=== PATIENT | female | born 1940 | race Caucasian/White ===

== ENCOUNTER → 2016-12-15 | Outpatient (CLI) | payer MEDICARE ==
[2016-12-20 16:24] LABS: Large VLDL Particle Number,NMR <1.5 nmol/L (<=2.7)
== END | disposition home or self-care (01) ==
LOC: LABWHC1 12:24
PROVIDERS: ATTEND Internal Medicine Cardiovascular Disease
DX: I25.10 Atherosclerotic heart disease of native coronary artery without angina pectoris (principal)
CPT/HCPCS: 36415; 83704

== ENCOUNTER → 2017-07-14 | Outpatient (CLI) | payer MEDICARE | END | disposition home or self-care (01) | LOC: RADMRIMAIN 06:15 | PROVIDERS: ATTEND Internal Medicine Gastroenterology | DX: Z53.9 Procedure and treatment not carried out, unspecified reason (principal) ==

== ENCOUNTER 2018-05-27 15:46 | Emergency (ER) | payer MEDICARE ==
[2018-05-27 15:58] VITALS: BP 158/73; PULSE 67; RESP 16; TEMP 97.9
[2018-05-27] MEDS ORDERED: FAMOTIDINE 20 MG TAB PO STA (16:08)
[2018-05-27] MEDS ORDERED: hydrOXYzine HCL 25 MG TAB PO STA (16:08)
--- NOTE | 2018-05-27 16:11 | ED ---
Allergic Reaction HPI - General Chief complaint: Allergic Reaction Stated complaint: reaction to medication, hives Time Seen by Provider: 05/27/18 16:05 Source: patient, RN notes reviewed Mode of arrival: ambulatory Limitations: no limitations - History of Present Illness Initial Comments: 77-year-old female presents emergency Department chief complaint of itchy arms, rash. Patient states this started last 24 hours. She tried one Benadryl yesterday with no relief. Patient states that she cannot tolerating itching of her hours. She states it's from her elbows to her hands. Denies any new exposures. Patient believes this is caused by steroids that she was taking for sore throat. Patient stopped his steroids. Patient denies any difficulty b reathing or difficulty swallowing. Patient states her sore throat has resolved. Patient states that she has multiple ALLERGIES. - Related Data Home Medications Medication Instructions Recorded Confirmed Lisinopril [Prinivil] 10 mg PO DAILY 03/09/15 01/16/16 Metoprolol Tartrate [Lopressor] 50 mg PO BID 03/09/15 01/16/16 Isosorbide Mononitrate ER [Imdur] 60 mg PO DAILY 10/30/15 01/16/16 Ferrous Sulfate [Iron (65 MG 325 mg PO DAILY 11/26/15 01/16/16 Elemental)] Pravastatin Sodium [Pravachol] 80 mg PO HS 11/30/15 01/16/16 Previous Rx's Medication Instructions Recorded HYDROcodone/APAP 7.5-325MG [Lyman 1 tab PO Q6HR PRN #20 tab 03/09/15 7.5-325] Levofloxacin [Levaquin] 500 mg PO DAILY #7 tab 11/30/15 Pantoprazole Sodium [Protonix] 40 mg PO DAILY #15 tablet. 11/30/15 metroNIDAZOLE [Flagyl] 500 mg PO TID #21 tab 11/30/15 Famotidine [Pepcid] 20 mg PO BID #14 tablet 05/27/18 Triamcinolone 0.1% Cream [Kenalog 1 applicatio TOPICAL BID #30 gram 05/27/18 0.1% Cream] hydrOXYzine HCL [Atarax] 25 mg PO TID PRN #15 tab 05/27/18 Allergies Allergy/AdvReac Type Severity Reaction Status Date / Time cephalexin monohydrate Allergy Rash/Hives/ Verified 05/27/18 15:59 [From Keflex] Swelling meperidine HCl [From Demerol] Allergy Rash/Hives Verified 05/27/18 15:59 Penicillins Allergy Swelling Verified 05/27/18 15:59 pentazocine lactate Allergy Rash/Hives-Stomach Verified 05/27/18 15:59 [From Talwin] Upset propoxyphene napsylate Allergy Rash/Hives- Verified 05/27/18 15:59 [From Darvocet-N] Itch Review of Systems ROS Statement: Those systems with pertinent positive or pertinent negative responses have been documented in the HPI. ROS Other: All systems not noted in ROS Statement are negative. Past Medical History Past Medical History: Blood Disorder, Coronary Artery Disease (CAD), Hyperlipidemia, Hypertension, Myocardial Infarction ([place]) Additional Past Medical History / Comment(s): Thrombocytopenia-sees Dr. Kan. 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, 11-28-15 ercp Past Anesthesia/Blood Transfusion Reactions: No Reported Reaction Date of Last Stent Placement:: 1998 Past Psychological History: No Psychological Hx Reported Smoking Status: Current some day smoker Past Alcohol Use History: None Reported Past Drug Use History: None Reported - Past Family History Mother Family Medical History: Cancer Additional Family Medical History / Comment(s): Breast Ca Father Family Medical History: Myocardial Infarction ([place]) Additional Family Medical History / Comment(s): @ age 86 from [place] General Exam Limitations: no limitations General appearance: alert, in no apparent distress Head exam: Present: atraumatic, normocephalic, normal inspection Respiratory exam: Present: normal lung sounds bilaterally. Absent: respiratory distress, wheezes, rales, rhonchi, stridor Cardiovascular Exam: Present: regular rate, normal rhythm, normal heart sounds. Absent: systolic murmur, diastolic murmur, rubs, gallop, clicks Extremities exam: Present: other (Bilateral upper extremities, excoriations, mild erythema noted, small areas of localized dermatitis) Skin exam: Present: warm, dry Course Vital Signs 05/27/18 15:56 Temperature 97.9 F Pulse Rate 67 Respiratory 16 Rate Blood Pressure 158/73 O2 Sat by Pulse 100 Oximetry Medical Decision Making - Medical Decision Making 77-year-old female presented for itchy eyes. Patient has what appears to be more consistent with contact dermatitis. Patient we given Atarax, Pepcid. Patient we given steroid cream for her arms. Return parameters were discussed. Disposition Clinical Impression: Dermatitis Disposition: HOME SELF-CARE Condition: Stable Instructions (If sedation given, give patient instructions): Dermatitis (ED) Additional Instructions: Please return to the Emergency Department if symptoms worsen or any other concerns. Prescriptions: hydrOXYzine HCL [Atarax] 25 mg PO TID PRN #15 tab PRN Reason: Itching Triamcinolone 0.1% Cream [Kenalog 0.1% Cream] 1 applicatio TOPICAL BID #30 gram Famotidine [Pepcid] 20 mg PO BID #14 tablet Is patient prescribed a controlled substance at d/c from ED?: No Referrals: Isabel Conway DO [Primary Care Provider] - 1-2 days Time of Disposition: 16:11
== END 2018-05-27 16:48 | disposition home or self-care (01) ==
LOC: EC 15:46
DX: L30.9 Dermatitis, unspecified (principal); E78.5 Hyperlipidemia, unspecified; I10 Essential (primary) hypertension; I25.10 Atherosclerotic heart disease of native coronary artery without angina pectoris; I25.2 Old myocardial infarction; D69.6 Thrombocytopenia, unspecified; F17.200 Nicotine dependence, unspecified, uncomplicated; Z88.0 Allergy status to penicillin; Z88.1 Allergy status to other antibiotic agents; Z88.5 Allergy status to narcotic agent; Z88.8 Allergy status to other drugs, medicaments and biological substances; Z79.899 Other long term (current) drug therapy; Z95.5 Presence of coronary angioplasty implant and graft
CPT/HCPCS: 99283

== ENCOUNTER 2018-05-28 16:24 | Emergency (ER) | payer MEDICARE ==
[2018-05-28 16:44] VITALS: BP 145/63; PULSE 71; RESP 16; TEMP 97.8
[2018-05-28] MEDS ORDERED: methylPREDNISolone SOD SUCCI 125 MG/2 ML VIAL IM ONE (17:48)
[2018-05-28] MEDS ORDERED: diphenhydrAMINE 50 MG/ML 1 ML VIAL IM STA (17:48)
--- NOTE | 2018-05-28 17:50 | ED ---
Skin/Abscess/FB HPI - General Chief complaint: Skin/Abscess/Foreign Body Stated complaint: Hives Time Seen by Provider: 05/28/18 17:13 Source: patient Mode of arrival: ambulatory Limitations: no limitations - History of Present Illness Initial comments: 77-year-old female patient presents to the emergency department today for generalized itching. Patient states itching started 2-3 days ago. States that she is unable to sleep last night due to the itching. States that she was seen and evaluated here yesterday diagnosed with contact dermatitis and given prescriptions for Pepcid, triamcinolone cream, and Atarax. Patient states she's been taking the medications as directed and doesn't seem to be helping. She denies any lip, tongue, or throat swelling. Denies any new exposures however she was recently on a steroid from her ear, nose, throat specialist. States she has taken steroids before without issue. She denies any other new exposures. Denies any recent travel. Patient denies any recent fever, chills, shortness breath, chest pain, abdominal pain, nausea, vomiting, diarrhea, constipation, back pain, numbness, tingling, dizziness, weakness, hematuria, dysuria, urinary urgency, urinary frequency, headache, visual changes, or any other complaints. - Related Data Home Medications Medication Instructions Recorded Confirmed Lisinopril [Prinivil] 10 mg PO DAILY 03/09/15 01/16/16 Metoprolol Tartrate [Lopressor] 50 mg PO BID 03/09/15 01/16/16 Isosorbide Mononitrate ER [Imdur] 60 mg PO DAILY 10/30/15 01/16/16 Ferrous Sulfate [Iron (65 MG 325 mg PO DAILY 11/26/15 01/16/16 Elemental)] Pravastatin Sodium [Pravachol] 80 mg PO HS 11/30/15 01/16/16 Previous Rx's Medication Instructions Recorded HYDROcodone/APAP 7.5-325MG [Chester 1 tab PO Q6HR PRN #20 tab 03/09/15 7.5-325] Levofloxacin [Levaquin] 500 mg PO DAILY #7 tab 11/30/15 Pantoprazole Sodium [Protonix] 40 mg PO DAILY #15 tablet. 11/30/15 metroNIDAZOLE [Flagyl] 500 mg PO TID #21 tab 11/30/15 Famotidine [Pepcid] 20 mg PO BID #14 tablet 05/27/18 Triamcinolone 0.1% Cream [Kenalog 1 applicatio TOPICAL BID #30 gram 05/27/18 0.1% Cream] hydrOXYzine HCL [Atarax] 25 mg PO TID PRN #15 tab 05/27/18 predniSONE 50 mg PO DAILY #3 tab 05/28/18 Allergies Allergy/AdvReac Type Severity Reaction Status Date / Time cephalexin monohydrate Allergy Rash/Hives/ Verified 05/27/18 15:59 [From Keflex] Swelling meperidine HCl [From Demerol] Allergy Rash/Hives Verified 05/27/18 15:59 Penicillins Allergy Swelling Verified 05/27/18 15:59 pentazocine lactate Allergy Rash/Hives-Stomach Verified 05/27/18 15:59 [From Talwin] Upset propoxyphene napsylate Allergy Rash/Hives- Verified 05/27/18 15:59 [From Darvocet-N] Itch Review of Systems ROS Statement: Those systems with pertinent positive or pertinent negative responses have been documented in the HPI. ROS Other: All systems not noted in ROS Statement are negative. Past Medical History Past Medical History: Blood Disorder, Coronary Artery Disease (CAD), Hyperlipidemia, Hypertension, Myocardial Infarction ([place]) Additional Past Medical History / Comment(s): Thrombocytopenia-sees Dr. Kan. 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, 11-28-15 ercp Past Anesthesia/Blood Transfusion Reactions: No Reported Reaction Date of Last Stent Placement:: 1998 Past Psychological History: No Psychological Hx Reported Smoking Status: Current some day smoker Past Alcohol Use History: None Reported Past Drug Use History: None Reported - Past Family History Mother Family Medical History: Cancer Additional Family Medical History / Comment(s): Breast Ca Father Family Medical History: Myocardial Infarction ([place]) Additional Family Medical History / Comment(s): @ age 86 from [place] General Exam Limitations: no limitations General appearance: alert, in no apparent distress, other (Physical well- developed, well-nourished elderly female patient in no acute distress. Vital signs upon presentation are temperature 97.8F, pulse 71, respirations 16, blood pressure 145/63, pulse ox 100% on room air.) ENT exam: Present: normal exam, normal oropharynx, mucous membranes moist Respiratory exam: Present: normal lung sounds bilaterally. Absent: respiratory distress, wheezes, rales, rhonchi, stridor Cardiovascular Exam: Present: regular rate, normal rhythm, normal heart sounds. Absent: systolic murmur, diastolic murmur, rubs, gallop, clicks GI/Abdominal exam: Present: soft, normal bowel sounds. Absent: distended, tenderness, guarding, rebound, rigid Neurological exam: Present: alert, oriented X3, CN II-XII intact Psychiatric exam: Present: normal affect, normal mood Skin exam: Present: warm, dry, intact, normal color, rash (Erythema and excoriation noted to bilateral arms secondary to itching. Similar lesions over the abdomen. ) Course Vital Signs 05/28/18 16:40 Temperature 97.8 F Pulse Rate 71 Respiratory 16 Rate Blood Pressure 145/63 O2 Sat by Pulse 100 Oximetry Disposition Clinical Impression: Rash, Generalized pruritus Disposition: HOME SELF-CARE Condition: Good Instructions (If sedation given, give patient instructions): Acute Rash (ED) Additional Instructions: Take Atarax or Benadryl. Complete steroid prescription in full. Follow-up with your primary care physician for recheck in 1-2 days. Return to the emergency department immediately for any new, worsening, or concerning symptoms. Prescriptions: predniSONE 50 mg PO DAILY #3 tab Is patient prescribed a controlled substance at d/c from ED?: No Referrals: Isabel Conway DO [Primary Care Provider] - 1-2 days Time of Disposition: 17:50
== END 2018-05-28 18:10 | disposition home or self-care (01) ==
LOC: EC 16:24
DX: L29.9 Pruritus, unspecified (principal); I25.10 Atherosclerotic heart disease of native coronary artery without angina pectoris; E78.5 Hyperlipidemia, unspecified; I10 Essential (primary) hypertension; I25.2 Old myocardial infarction; F17.200 Nicotine dependence, unspecified, uncomplicated; Z79.899 Other long term (current) drug therapy; Z88.1 Allergy status to other antibiotic agents; Z88.0 Allergy status to penicillin; Z88.5 Allergy status to narcotic agent; Z88.8 Allergy status to other drugs, medicaments and biological substances; Z95.5 Presence of coronary angioplasty implant and graft
CPT/HCPCS: 99282; 96372 ×2; J1200; J2930

== ENCOUNTER 2018-09-02 22:09 | Emergency (ER) | payer MEDICARE ==
--- NOTE | 2018-09-02 22:14 | ED ---
Fall HPI - General Stated Complaint: Fall Time Seen by Provider: 09/02/18 22:12 Source: RN notes reviewed, old records reviewed Limitations: no limitations - History of Present Illness Initial Comments: This is a 78-year-old female the ER status post fall. Patient resents today status post fall from standing follows mechanical trip and fall. Patient did hit her head but no loss of consciousness complaining of elbow and knee pain. Patient has no other complaints no recent chest pain shortness of breath abdominal pain or headache prior to fall MD Complaint: fall -: hour(s) Fall From: standing When Fall Occurred: 1-3 hours [employer]ORD[employer] Fall Witnessed: no Place Fall Occurred: home Loss of Consciousness: none Prolonged Down Time?: no Symptoms Prior to Fall: none Location: head Location - Extremities: Left: Elbow, Knee, Right: Knee Severity: mild Severity scale (1-10): 2 Quality: aching Context: tripped/slipped Associated Symptoms: denies - Related Data Home Medications Medication Instructions Recorded Confirmed Lisinopril [Prinivil] 10 mg PO DAILY 03/09/15 09/12/18 Metoprolol Tartrate [Lopressor] 50 mg PO BID 03/09/15 09/12/18 Isosorbide Mononitrate ER [Imdur] 60 mg PO DAILY 10/30/15 09/12/18 Aspirin EC [Ecotrin Low Dose] 81 mg PO DAILY 09/12/18 09/12/18 Pravastatin Sodium [Pravachol] 40 mg PO HS 09/12/18 09/12/18 Allergies Allergy/AdvReac Type Severity Reaction Status Date / Time cephalexin monohydrate Allergy Rash/Hives/ Verified 09/12/18 21:34 [From Keflex] Swelling codeine Allergy Unknown Verified 09/12/18 21:34 meperidine HCl [From Demerol] Allergy Rash/Hives Verified 09/12/18 21:34 Penicillins Allergy Swelling Verified 09/12/18 21:34 pentazocine lactate Allergy Rash/Hives-Stomach Verified 09/12/18 21:34 [From Talwin] Upset propoxyphene napsylate Allergy Rash/Hives- Verified 09/12/18 21:34 [From Darvocet-N] Itch Review of Systems ROS Statement: Those systems with pertinent positive or pertinent negative responses have been documented in the HPI. ROS Other: All systems not noted in ROS Statement are negative. Past Medical History Past Medical History: Blood Disorder, Coronary Artery Disease (CAD), Hyperlipidemia, Hypertension, Myocardial Infarction ([place]) Additional Past Medical History / Comment(s): Thrombocytopenia-sees Dr. Kan. 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, 11-28-15 ercp Past Anesthesia/Blood Transfusion Reactions: No Reported Reaction Date of Last Stent Placement:: 1998 Past Psychological History: No Psychological Hx Reported Smoking Status: Current some day smoker Past Alcohol Use History: None Reported Past Drug Use History: None Reported - Past Family History Mother Family Medical History: Cancer Additional Family Medical History / Comment(s): Breast Ca Father Family Medical History: Myocardial Infarction ([place]) Additional Family Medical History / Comment(s): @ age 86 from [place] General Exam General appearance: alert, in no apparent distress Head exam: Present: atraumatic, normocephalic, normal inspection Eye exam: Present: normal appearance, PERRL, EOMI. Absent: scleral icterus, conjunctival injection, periorbital swelling ENT exam: Present: normal exam, mucous membranes moist Neck exam: Present: normal inspection. Absent: tenderness, meningismus, lymphadenopathy Respiratory exam: Present: normal lung sounds bilaterally. Absent: respiratory distress, wheezes, rales, rhonchi, stridor Cardiovascular Exam: Present: regular rate, normal rhythm, normal heart sounds. Absent: systolic murmur, diastolic murmur, rubs, gallop, clicks GI/Abdominal exam: Present: soft, normal bowel sounds. Absent: distended, tenderness, guarding, rebound, rigid Extremities exam: Present: normal inspection, full ROM, normal capillary refill. Absent: tenderness, pedal edema, joint swelling, calf tenderness Back exam: Present: normal inspection Neurological exam: Present: alert, oriented X3, CN II-XII intact Psychiatric exam: Present: normal affect, normal mood Skin exam: Present: warm, dry, intact, normal color. Absent: rash Course Vital Signs 06/22/19 06/22/19 22:11 23:47 Temperature 98.2 F 98.0 F Pulse Rate 73 87 Respiratory 18 18 Rate Blood Pressure 140/68 156/67 O2 Sat by Pulse 97 98 Oximetry Medical Decision Making - Medical Decision Making 78 female the ER status post fall fall mechanical trip and fall hit her head head injury with CT negative x-rays are negative for traumatic injury and patient can be discharged home - Radiology Data Radiology results: report reviewed (CT brain C-spine x-ray elbow knee negative for traumatic injury), image reviewed Disposition Clinical Impression: Fall, Head injury Disposition: HOME SELF-CARE Condition: Good Instructions (If sedation given, give patient instructions): Fall Prevention for Older Adults (ED), Head Injury (ED) Is patient prescribed a controlled substance at d/c from ED?: No Referrals: Isabel Conway DO [Primary Care Provider] - 1-2 days
[2018-09-02 22:17] VITALS: RESP 18
--- NOTE | 2018-09-02 23:02 | CT ---
EXAM: CT Head Without Intravenous Contrast CLINICAL HISTORY: ITS.REASON CT Reason: pain TECHNIQUE: Axial computed tomography images of the head/brain without intravenous contrast. CTDI is 56.5 mGy and DLP is 1355 mGy-cm. This CT exam was performed using one or more of the following dose reduction techniques: automated exposure control, adjustment of the mA and/or kV according to patient size, and/or use of iterative reconstruction technique. COMPARISON: No relevant prior studies available. FINDINGS: Brain: Advanced cerebral atrophy, more so involving the frontal lobes. No hemorrhage. No significant white matter disease. Ventricles: Unremarkable. No ventriculomegaly. Bones/joints: Unremarkable. No acute fracture. Soft tissues: Unremarkable. Sinuses: Unremarkable as visualized. No acute sinusitis. Mastoid air cells: Unremarkable as visualized. No mastoid effusion. IMPRESSION: No acute findings. EXAM: CT Cervical Spine Without Intravenous Contrast CLINICAL HISTORY: ITS.REASON CT Reason: pain TECHNIQUE: Axial computed tomography images of the cervical spine without intravenous contrast. CTDI is 56.5 mGy and DLP is 1355 mGy-cm. This CT exam was performed using one or more of the following dose reduction techniques: automated exposure control, adjustment of the mA and/or kV according to patient size, and/or use of iterative reconstruction technique. COMPARISON: No relevant prior studies available. FINDINGS: Vertebrae: Unremarkable. No acute fracture. Discs/spinal canal/neural foramina: No acute findings. Severe degenerative disc disease at the C5-C6 level likely contributes to mild central canal stenosis. Mild to moderate degenerative disc disease at C6- C7. Soft tissues: Large 5.1 x 4.4 cm left thyroid gland mass with peripheral calcification. IMPRESSION: No fracture or subluxation. Severe degenerative disc disease at the C5-C6 level. 5.1 cm left thyroid gland mass. Nonemergent follow-up ultrasound should be considered.
--- NOTE | 2018-09-02 23:33 | XR ---
EXAM: XR Left Knee, 3 views CLINICAL HISTORY: ITS.REASON XR Reason: Pain TECHNIQUE: Three views of the left knee. COMPARISON: Left knee radiographs 03/09/2015 FINDINGS: Advanced osteoarthritic degenerative changes about the knee joint as well as patellofemoral joint. Multiple small periarticular calcifications raising possibility of loose bodies. Chondrocalcinosis. No definite evidence of acute fracture. No evidence of dislocation. Small knee joint effusion. IMPRESSION: Advanced osteoarthritic degenerative changes about the knee and patellofemoral joints. Multiple periarticular calcifications raising possibility of loose bodies. No definite evidence of acute fracture or dislocation. Chondrocalcinosis. Small knee joint effusion.
--- NOTE | 2018-09-02 23:38 | XR ---
EXAM: XR Left Elbow Complete, 3 or More Views CLINICAL HISTORY: ITS.REASON XR Reason: Pain TECHNIQUE: Frontal, lateral and oblique views of the left elbow. COMPARISON: None available FINDINGS: No evidence of acute fracture or dislocation area Humeral fat pads are not elevated. IMPRESSION: No evidence of acute fracture or dislocation.
[2018-09-02 23:51] VITALS: BP 156/67; PULSE 87; TEMP 98
--- NOTE | 2018-09-04 07:37 | CDI ---
Documentation Clarification OP Dear Orlando OLIVAS, DO Please do addendum to ED report for missing HPI and Physical examination. Thank you, Farheen Mnotiel [employer] If you have any questions, please contact [employer] Captain at [phone] [facility]
== END 2018-09-02 23:51 | disposition home or self-care (01) ==
LOC: EC 22:09
DX: S09.90XA Unspecified injury of head, initial encounter (principal); M25.522 Pain in left elbow; M25.561 Pain in right knee; M25.562 Pain in left knee; I25.10 Atherosclerotic heart disease of native coronary artery without angina pectoris; E78.5 Hyperlipidemia, unspecified; I10 Essential (primary) hypertension; I25.2 Old myocardial infarction; F17.200 Nicotine dependence, unspecified, uncomplicated; Z95.5 Presence of coronary angioplasty implant and graft; Z79.82 Long term (current) use of aspirin; Z79.899 Other long term (current) drug therapy; Z88.1 Allergy status to other antibiotic agents; Z88.5 Allergy status to narcotic agent; Z88.0 Allergy status to penicillin; Z88.8 Allergy status to other drugs, medicaments and biological substances; W01.10XA Fall on same level from slipping, tripping and stumbling with subsequent striking against unspecified object, initial encounter; Y92.009 Unspecified place in unspecified non-institutional (private) residence as the place of occurrence of the external cause
CPT/HCPCS: 70450; 72125; 99284

== ENCOUNTER 2018-09-12 21:08 | Inpatient (IN) | payer MEDICARE ==
--- NOTE | 2018-09-12 21:28 | ED ---
Lower Extremity Injury HPI <Alfredo Porras - Last Filed: 09/12/18 22:02> - General Source: patient, RN notes reviewed Mode of arrival: EMS Limitations: no limitations <Samir Vera - Last Filed: 09/12/18 22:24> - General Chief Complaint: Extremity Injury, Lower Stated Complaint: Hip Pain Time Seen by Provider: 09/12/18 21:10 - History of Present Illness Initial Comments: 78-year-old female presents emergency Department with chief complaint of left hip pain. Patient states that she fell yesterday in the grass when she tripped over her dog. Patient states he was able stand her up and she couldn't get around but barely. Patient states the pain worsens June to the point where she cannot ambulate. Patient states that the pain radiates down towards her knee. Patient denies any head injury no loss conscious no prior hip surgery. (Samir Vera) - Related Data Home Medications Medication Instructions Recorded Confirmed Lisinopril [Prinivil] 10 mg PO DAILY 03/09/15 09/12/18 Metoprolol Tartrate [Lopressor] 50 mg PO BID 03/09/15 09/12/18 Isosorbide Mononitrate ER [Imdur] 60 mg PO DAILY 10/30/15 09/12/18 Aspirin EC [Ecotrin Low Dose] 81 mg PO DAILY 09/12/18 09/12/18 Pravastatin Sodium [Pravachol] 40 mg PO HS 09/12/18 09/12/18 Allergies Allergy/AdvReac Type Severity Reaction Status Date / Time cephalexin monohydrate Allergy Rash/Hives/ Verified 09/12/18 21:34 [From Keflex] Swelling codeine Allergy Unknown Verified 09/12/18 21:34 meperidine HCl [From Demerol] Allergy Rash/Hives Verified 09/12/18 21:34 Penicillins Allergy Swelling Verified 09/12/18 21:34 pentazocine lactate Allergy Rash/Hives-Stomach Verified 09/12/18 21:34 [From Talwin] Upset propoxyphene napsylate Allergy Rash/Hives- Verified 09/12/18 21:34 [From Darvocet-N] Itch Review of Systems ROS Other: All systems not noted in ROS Statement are negative. <Alfredo Porras - Last Filed: 09/12/18 22:02> ROS Other: All systems not noted in ROS Statement are negative. <Samir Vera M - Last Filed: 09/12/18 22:24> ROS Statement: Those systems with pertinent positive or pertinent negative responses have been documented in the HPI. Past Medical History Past Medical History: Blood Disorder, Coronary Artery Disease (CAD), Hyperlip idemia, Hypertension, Myocardial Infarction ([place]) Additional Past Medical History / Comment(s): Thrombocytopenia-sees Dr. Kan. 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, 11-28-15 ercp Past Anesthesia/Blood Transfusion Reactions: No Reported Reaction Date of Last Stent Placement:: 1998 Past Psychological History: No Psychological Hx Reported Smoking Status: Current some day smoker Past Alcohol Use History: None Reported Past Drug Use History: None Reported - Past Family History Mother Family Medical History: Cancer Additional Family Medical History / Comment(s): Breast Ca Father Family Medical History: Myocardial Infarction ([place]) Additional Family Medical History / Comment(s): @ age 86 from [place] <Samir Vera - Last Filed: 09/12/18 22:24> General Exam Limitations: no limitations General appearance: alert, in no apparent distress Head exam: Present: atraumatic, normocephalic, normal inspection Eye exam: Present: normal appearance, PERRL, EOMI. Absent: scleral icterus, conjunctival injection, periorbital swelling ENT exam: Present: normal exam, normal oropharynx, mucous membranes moist Neck exam: Present: normal inspection, full ROM. Absent: tenderness, meningismus, lymphadenopathy Respiratory exam: Present: normal lung sounds bilaterally. Absent: respiratory distress, wheezes, rales, rhonchi, stridor Cardiovascular Exam: Present: regular rate, normal rhythm, normal heart sounds. Absent: systolic murmur, diastolic murmur, rubs, gallop, clicks Extremities exam: Present: other (Left hip there is tenderness with palpation diffusely, mild pain to the mid left thigh. Pain with logrolling and flexion of the hip there is no shortening or rotation pedal pulses are equal bilaterally) Neurological exam: Present: alert, oriented X3, CN II-XII intact, reflexes normal. Absent: motor sensory deficit Skin exam: Present: warm, dry, intact, normal color. Absent: rash <Samir Vera - Last Filed: 09/12/18 22:24> Course Vital Signs 09/12/18 21:13 Temperature 98.5 F Pulse Rate 67 Respiratory 14 Rate Blood Pressure 133/65 O2 Sat by Pulse 96 Oximetry Medical Decision Making <Alfredo Porras - Last Filed: 09/12/18 22:02> <Samir Vera - Last Filed: 09/12/18 22:24> - Medical Decision Making I saw this patient in conjunction with the physician loan assistant. I performed independent history and physical exam. Agree with case management. (Alfredo Porras) 78-year-old female presented for fall, left hip pain. Patient had x-rays which shows left IT fracture. Case discussed with on-call orthopedics who accepted admission. Patient will need surgical clearance including cardiology evaluation. (Samir Vera) Disposition <Alfredo Porras - Last Filed: 09/12/18 22:02> <aSmir Vera - Last Filed: 09/12/18 22:24> Clinical Impression: Fracture, intertrochanteric, left femur, Fall Disposition: ADMITTED IP TO THIS [facility] Condition: Fair Referrals: Isabel Conway DO [Primary Care Provider] - 1-2 days
--- NOTE | 2018-09-12 21:48 | XR ---
EXAMINATION TYPE: XR pelvis AP view DATE OF EXAM: 09/12/2018 COMPARISON: NONE HISTORY: Pain TECHNIQUE: Single view FINDINGS: Pelvic ring is intact. There is lucency over the intertrochanteric left femur suggestive of nondisplaced fracture. Sacroiliac joints are intact. Proximal right femur is intact. IMPRESSION: There is acute intertrochanteric fracture left femur.
--- NOTE | 2018-09-12 21:49 | XR ---
EXAMINATION TYPE: XR chest 1V DATE OF EXAM: 09/12/2018 COMPARISON: 10/16/2010 HISTORY: Knee pain. Chest pain TECHNIQUE: Single frontal view of the chest is obtained. FINDINGS: There is no heart failure nor confluent pneumonic infiltrate. Costophrenic angles are janiya r. Heart is probably enlarged. There is no pleural effusion or pneumothorax. IMPRESSION: Mild cardiomegaly. No acute lung disease. Heart appears increased slightly compared to o ld exam.
--- NOTE | 2018-09-12 21:50 | XR ---
EXAMINATION TYPE: XR femur LT DATE OF EXAM: 09/12/2018 COMPARISON: NONE HISTORY: Pain TECHNIQUE: 4 views FINDINGS: There is evidence of acute intertrochanteric fracture left femur without displacement. Ther e is no dislocation. There is severe narrowing of the knee joint spaces with calcification of the men isci. I see no knee joint fracture. IMPRESSION: Acute intertrochanteric fracture left femur. 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
[2018-09-12] MEDS ORDERED: MORPHINE SULFATE 4 MG/ML SYRINGE IV STA (22:02)
[2018-09-12] MEDS ORDERED: ACETAMINOPHEN TAB 325 MG TAB PO PRN (22:24)
[2018-09-12] MEDS ORDERED: ONDANSETRON 4 MG/2 ML VIAL IVP PRN (22:24)
[2018-09-12] MEDS ORDERED: NALOXONE 0.4 MG/ML 1 ML VIAL IV PRN (22:24)
[2018-09-12 22:32] LABS: Basophils % (A) 1 %; Eosinophils # (A) 0.2 k/uL (0-0.7); Eosinophils % (A) 3 %; HCT 35.1 % (34.0-46.0); Lymphocytes # (A) 0.8 k/uL (1.0-4.8); Lymphocytes % (A) 13 %; MCH 32.3 pg (25.0-35.0); MCHC 34.2 g/dL (31.0-37.0); MCV 94.5 fL (80.0-100.0); Mean Platelet Volume 9.6; Monocytes # (A) 0.5 k/uL (0-1.0); Monocytes % (A) 9 %; Neutrophils # (A) 4.3 k/uL (1.3-7.7); Neutrophils % (A) 72 %; Poikilocytosis Moderate; RBC 3.71 m/uL (3.80-5.40); RDW 15.8 % (11.5-15.5)
[2018-09-12 22:41] LABS: INR 1.2 (<1.2); Partial Thromboplastin Time 27.3 sec (22.0-30.0); Prothrombin Time 12.6 sec (9.0-12.0)
[2018-09-12 22:42] LABS: Albumin 2.9 g/dL (3.5-5.0); Calcium 8.3 mg/dL (8.4-10.2); Potassium 4.1 mmol/L (3.5-5.1); Total Bilirubin 2.6 mg/dL (0.2-1.3); Total Protein 5.6 g/dL (6.3-8.2)
[2018-09-12] MEDS ORDERED: HYDROmorphone 0.5 MG/0.5 ML SYRINGE IVP STA (22:45)
[2018-09-12 23:03] LABS: Platelet Count 57 k/uL (150-450)
[2018-09-13 00:04] LABS: Appearance,Urine Clear (Clear); Bilirubin,Urine Negative (Negative); Blood,Urine Negative (Negative); Color,Urine Yellow; Glucose,Urine (UA) Negative (Negative); Ketones,Urine Negative (Negative); Leukocyte Esterase,Urine Negative (Negative); Nitrite,Urine Negative (Negative); Protein,Urine Trace (Negative); Specific Gravity,Urine 1.031 (1.001-1.035)
[2018-09-13] MEDS: HYDROmorphone 0.5 MG/0.5 ML SYRINGE IVP PRN ×6 (01:22→23:52)
--- NOTE | 2018-09-13 08:03 | P.HPOR ---
History of Present Illness H&P Date: 09/13/18 Chief Complaint: Left hip pain The patient is a 78-year-old community ambulator who presents after falling on Tuesday in her yard tripping over her dog. She had no loss of consciousness. Initially she was able to bear weight, however that worsened and subsequently she was brought to the hospital. Review of Systems Musculoskeletal: Reports as per HPI Musculoskeletal: left: hip pain Past Medical History Past Medical History: Blood Disorder, Coronary Artery Disease (CAD), Hyperlipidemia, Hypertension, Myocardial Infarction ([place]) Additional Past Medical History / Comment(s): Thrombocytopenia-sees Dr. Kan. 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, 11-28-15 ercp Past Anesthesia/Blood Transfusion Reactions: No Reported Reaction Date of Last Stent Placement:: 1998 Past Psychological History: No Psychological Hx Reported Smoking Status: Current some day smoker Past Alcohol Use History: None Reported Additional Past Alcohol Use History / Comment(s): smokes maybe weekly- 1-2 cigarettes- had smoked and quit for 12 yrs and started up about 5 yrs ago again Past Drug Use History: None Reported - Past Family History Mother Family Medical History: Cancer Additional Family Medical History / Comment(s): Breast Ca Father Family Medical History: Myocardial Infarction ([place]) Additional Family Medical History / Comment(s): @ age 86 from [place] Medications and Allergies Home Medications Medication Instructions Recorded Confirmed Type Lisinopril [Prinivil] 10 mg PO DAILY 03/09/15 09/12/18 History Metoprolol Tartrate [Lopressor] 50 mg PO BID 03/09/15 09/12/18 History Isosorbide Mononitrate ER [Imdur] 60 mg PO DAILY 10/30/15 09/12/18 History Aspirin EC [Ecotrin Low Dose] 81 mg PO DAILY 09/12/18 09/12/18 History Pravastatin Sodium [Pravachol] 40 mg PO HS 09/12/18 09/12/18 History Allergies Allergy/AdvReac Type Severity Reaction Status Date / Time cephalexin monohydrate Allergy Rash/Hives/ Verified 09/12/18 21:34 [From Keflex] Swelling codeine Allergy Unknown Verified 09/12/18 21:34 meperidine HCl [From Demerol] Allergy Rash/Hives Verified 09/12/18 21:34 Penicillins Allergy Swelling Verified 09/12/18 21:34 pentazocine lactate Allergy Rash/Hives-Stomach Verified 09/12/18 21:34 [From Talwin] Upset propoxyphene napsylate Allergy Rash/Hives- Verified 09/12/18 21:34 [From Darvocet-N] Itch Physical Examination - Hip left Gait: other (Nonweightbearing) Tenderness with palpation: anterior Pain with motion: other (Pain with any attempted motion left hip) - Fracture left hip Location of fracture: Left hip Appearance: other (Mild shortening and external rotation left lower extremity) Open wound: None Compartments: soft Distal extremity neurovascularly intact: Yes Proximal joint involvement: No (Nontender thoracic and lumbar spine, pelvis stable to external rotation str) Distal joint involvement: No Other injury: vascular injury: no, nerve injury: no Results - Labs Labs: Abnormal Lab Results - Last 24 Hours (Table) 09/12/18 09/12/18 09/12/18 Range/Units 22:20 22:20 22:20 RBC 3.71 L (3.80-5.40) m/uL RDW 15.8 H (11.5-15.5) % Plt Count 57 L (150-450) k/uL Lymphocytes # 0.8 L (1.0-4.8) k/uL PT 12.6 H (9.0-12.0) sec INR 1.2 H (<1.2) Chloride 112 H (98-107) mmol/L Glucose 110 H (74-99) mg/dL Calcium 8.3 L (8.4-10.2) mg/dL Total Bilirubin 2.6 H (0.2-1.3) mg/dL Total Protein 5.6 L (6.3-8.2) g/dL Albumin 2.9 L (3.5-5.0) g/dL Urine Protein (Negative) 09/12/18 Range/Units 23:50 RBC (3.80-5.40) m/uL RDW (11.5-15.5) % Plt Count (150-450) k/uL Lymphocytes # (1.0-4.8) k/uL PT (9.0-12.0) sec INR (<1.2) Chloride (98-107) mmol/L Glucose (74-99) mg/dL Calcium (8.4-10.2) mg/dL Total Bilirubin (0.2-1.3) mg/dL Total Protein (6.3-8.2) g/dL Albumin (3.5-5.0) g/dL Urine Protein Trace H (Negative) H & H 09/12/18 Range/Units 22:20 Hgb 12.0 (11.4-16.0) gm/dL Hct 35.1 (34.0-46.0) % Coagulation 09/12/18 Range/Units 22:20 INR 1.2 H (<1.2) Result Diagrams: 09/12/18 22:20 09/12/18 22:20 - Diagnostic results Hip x-ray: image reviewed (Mildly displaced left intertrochanteric femur fracture) Assessment and Plan Assessment: Displaced left intertrochanteric femur fracture Thrombocytopenia History of coronary artery disease Plan: I talked to the patient and her family regarding her condition along with treatment options. At this point I recommend proceeding with surgical interve ntion. Last for cardiac and hematology preoperative evaluation and recommendations. We will proceed once medically deemed stable. Time with Patient: Greater than 30
--- NOTE | 2018-09-13 10:50 | P.CRDCN ---
History of Present Illness History of present illness: This is a pleasant 78-year-old female past medical history significant for coronary artery disease with stent placement to the RCA and chronically occluded OM, ischemic cardiomyopathy, hypertension, dyslipidemia, thrombocytopenia and chronic nicotine dependence. We have asked to see her in consultation secondary to preoperative evaluation. She follows in the office with Dr. Erickson. On Tuesday while walking through her backyard she tripped and fell over her dog on the left side causing an acute intertrochanteric fracture of the left femur. She denies symptoms of chest discomfort, shortness of breath, dizziness, palpitations, nausea, vomiting or diaphoresis prior to fall ing. She states she simply tripped and fell over the dog. She is seen and examined resting comfortably flat in bed in no acute distress. She denies any symptoms of exertional dyspnea or chest discomfort. Clinically she is euvolemic. Daughter is at the bedside and they are concerned about general anesthesia as the patient has had a difficult time in the past with altered mental status after receiving general anesthesia. EKG reveals left bundle branch block, this is chronic when compared to old EKGs in the office. Chest x-ray reveals mild cardiomegaly with no acute cardiopulmonary process. Laboratory data reviewed, WBC 6, hemoglobin 12, platelets 57, INR 1.2, sodium 140, potassium 4.1, creatinine 0.75, total bilirubin 2.6. Current cardiac medications include aspirin 81 mg daily, Imdur 60 mg daily, lisinopril 10 mg daily, Lopressor 50 mg twice a day and pravastatin 40 mg daily. Most recent echocardiogram obtained in the office October 2017 reveals impaired LV systolic function with ejection fraction 40% with global hypokinesia, and mild concentric left ventricular hypertrophy, moderately dilated left atrium, mild mitral regurgitation, mildly calcified aortic valve with mild aortic regurgitation, mild tricuspid regurgitation and moderate pulmonary regurgitation. Most recent stress test performed in the office February 2018 revealed a mild reversible defect infero-laterally secondary to diaphrahmatic activity with EF of 51%. At the time of my exam: CONSTITUTIONAL: Denies fever. Denies chills. EYES: Denies blurred vision. Denies vision changes. Denies eye pain. EARS, NOSE, MOUTH & THROAT: Denies headache. Denies sore throat. Denies ear pain. CARDIOVASCULAR: Denies chest pain. Denies shortness of breath. Denies orthopnea. Denies PND. Denies palpitations. RESPIRATORY: Denies cough. GASTROINTESTINAL: Denies abdominal pain. Denies diarrhea. Denies constipation. Denies nausea. Denies vomiting. MUSCULOSKELETAL: Denies myalgias. INTEGUMENTARY: Denies pruitis. Denies rash. NEUROLOGIC: Denies numbness. Denies tingling. Denies weakness. PSYCHIATRIC: Denies anxiety. Denies depression. ENDOCRINE: Denies fatigue. Denies weight change. Denies polydipsia. Denies polyurina. GENITOURINARY: Denies burning, hematuria or urgency with micturation. HEMATOLOGIC: Denies history of anemia. Denies bleeding. Blood pressure 125/57 heart rate 81 afebrile maintaining oxygen saturation on room air GENERAL: This is a 78-year-old female in no apparent distress at the time of my examination. HEENT: Head is atraumatic, normocephalic. Pupils are equal, round. Sclerae anicteric. Conjunctivae are clear. Mucous membranes of the mouth are moist. Neck is supple. There is no jugular venous distention. No carotid bruit is heard. LUNGS: Clear to auscultation no wheezes, rales or rhonchi. No chest wall tenderness is noted on palpation or with deep breathing. HEART: Regular rate and rhythm without murmurs, rubs or gallops. S1 and S2 heard. ABDOMEN: Soft, nontender. Bowel sounds are heard. No organomegaly noted. EXTREMITIES: No evidence of peripheral edema and no calf tenderness noted. VASCULAR: Radial and dorsalis pedis pulses palpated, no evidence of clubbing. NEUROLOGIC: Patient is awake, alert and oriented x3. ASSESSMENT Left intertrochanteric femur fracture Ischemic cardiomyopathy, EF 40% History of coronary artery disease s/p stent placement RCA 1998 Hypertension Dyslipidemia Thrombocytopenia Chronic nicotine dependence PLAN Repeat echocardiogram to assess cardiac structure and function. Resume lopressor, pravastatin, imdur and lisinopril at home doses. Clinically she is euvolemic and free of symptoms of angina. She is a moderate risk for surgery with no acute contraindications. Continue cardiac medications and advise cautions fluid administration intra-operatively. We will continue to follow in the post-operative phase. Thank you kindly for this consultation. Nurse Practitioner note has been reviewed, I agree with a documented findings and plan of care. Patient was seen and examined. Past Medical History Past Medical History: Blood Disorder, Coronary Artery Disease (CAD), Hyperlipidemia, Hypertension, Myocardial Infarction ([place]) Additional Past Medical History / Comment(s): Thrombocytopenia-sees Dr. Kan. 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, 11-28-15 ercp Past Anesthesia/Blood Transfusion Reactions: No Reported Reaction Date of Last Stent Placement:: 1998 Past Psychological History: No Psychological Hx Reported Smoking Status: Current some day smoker Past Alcohol Use History: None Reported Additional Past Alcohol Use History / Comment(s): smokes maybe weekly- 1-2 cigarettes- had smoked and quit for 12 yrs and started up about 5 yrs ago again Past Drug Use History: None Reported - Past Family History Mother Family Medical History: Cancer Additional Family Medical History / Comment(s): Breast Ca Father Family Medical History: Myocardial Infarction ([place]) Additional Family Medical History / Comment(s): @ age 86 from [place] Medications and Allergies Home Medications Medication Instructions Recorded Confirmed Type Lisinopril [Prinivil] 10 mg PO DAILY 03/09/15 09/12/18 History Metoprolol Tartrate [Lopressor] 50 mg PO BID 03/09/15 09/12/18 History Isosorbide Mononitrate ER [Imdur] 60 mg PO DAILY 10/30/15 09/12/18 History Aspirin EC [Ecotrin Low Dose] 81 mg PO DAILY 09/12/18 09/12/18 History Pravastatin Sodium [Pravachol] 40 mg PO HS 09/12/18 09/12/18 History Allergies Allergy/AdvReac Type Severity Reaction Status Date / Time cephalexin monohydrate Allergy Rash/Hives/ Verified 09/12/18 21:34 [From Keflex] Swelling codeine Allergy Unknown Verified 09/12/18 21:34 meperidine HCl [From Demerol] Allergy Rash/Hives Verified 09/12/18 21:34 Penicillins Allergy Swelling Verified 09/12/18 21:34 pentazocine lactate Allergy Rash/Hives-Stomach Verified 09/12/18 21:34 [From Talwin] Upset propoxyphene napsylate Allergy Rash/Hives- Verified 09/12/18 21:34 [From Darvocet-N] Itch Physical Exam Vitals: Vital Signs Temp Pulse Pulse Resp BP BP Pulse Ox 09/13/18 07:00 98.5 F 81 17 125/57 95 09/13/18 01:15 98.3 F 82 14 137/59 95 09/13/18 01:00 98.3 F 82 14 137/59 95 09/13/18 00:42 98.3 F 85 16 149/73 09/13/18 00:00 72 14 128/60 94 L 09/12/18 23:07 67 14 133/65 95 09/12/18 23:00 68 15 135/108 94 L 09/12/18 22:30 69 15 147/65 96 09/12/18 22:00 70 15 133/65 97 09/12/18 21:30 68 15 133/65 09/12/18 21:16 68 15 96 09/12/18 21:13 98.5 F 67 14 133/65 96 Intake and Output 09/12/18 09/13/18 09/13/18 22:59 06:59 14:59 Intake Total 180 Output Total 200 Balance -200 180 Intake: Oral 180 Output: Urine 200 Other: Voiding Method Indwelling Catheter Weight 66.224 kg Results 09/12/18 22:20 09/12/18 22:20 Cardiac Enzymes 09/12/18 Range/Units 22:20 AST 27 (14-36) U/L Coagulation 09/12/18 Range/Units 22:20 PT 12.6 H (9.0-12.0) sec APTT 27.3 (22.0-30.0) sec CBC 09/12/18 Range/Units 22:20 WBC 6.0 (3.8-10.6) k/uL RBC 3.71 L (3.80-5.40) m/uL Hgb 12.0 (11.4-16.0) gm/dL Hct 35.1 (34.0-46.0) % Plt Count 57 L (150-450) k/uL Comprehensive Metabolic Panel 09/12/18 Range/Units 22:20 Sodium 140 (137-145) mmol/L Potassium 4.1 (3.5-5.1) mmol/L Chloride 112 H (98-107) mmol/L Carbon Dioxide 23 (22-30) mmol/L BUN 16 (7-17) mg/dL Creatinine 0.75 (0.52-1.04) mg/dL Glucose 110 H (74-99) mg/dL Calcium 8.3 L (8.4-10.2) mg/dL AST 27 (14-36) U/L ALT 21 (9-52) U/L Alkaline Phosphatase 88 (38-126) U/L Total Protein 5.6 L (6.3-8.2) g/dL Albumin 2.9 L (3.5-5.0) g/dL Current Medications Generic Name Dose Route Start Last Admin Trade Name Freq PRN Reason Stop Dose Admin Acetaminophen 650 mg 09/12/18 22:24 Tylenol Tab PO Q6HR PRN Mild Pain or Fever > 100.5 Hydrocodone Bitart/Acetaminophen 1 each 09/12/18 22:24 Ridge 5-325 PO Q4HR PRN Moderate Pain Hydromorphone HCl 0.5 mg 09/13/18 01:01 09/13/18 08:21 Dilaudid IVP 0.5 mg Q4HR PRN Administration Pain Naloxone HCl 0.2 mg 09/12/18 22:24 Narcan IV Q2M PRN Opioid Reversal Ondansetron HCl 4 mg 09/12/18 22:24 Zofran IVP Q8HR PRN Nausea And Vomiting Oxycodone/Acetaminophen 1 each 09/12/18 22:24 Percocet 5-325 PO Q4HR PRN Severe Pain Intake and Output 09/12/18 09/13/18 09/13/18 22:59 06:59 14:59 Intake Total 180 Output Total 200 Balance -200 180 Intake: Oral 180 Output: Urine 200 Other: Voiding Method Indwelling Catheter Weight 66.224 kg 09/12/18 22:20 09/12/18 22:20
[2018-09-13] MEDS: METOPROLOL TARTRATE 50 MG TAB PO SCH ×2 (11:21→20:44)
[2018-09-13] MEDS: ASPIRIN 81 MG PO SCH (11:21)
[2018-09-13] MEDS: ISOSORBIDE MONONITRATE ER 60 MG TAB.ER.24H PO SCH (11:21)
[2018-09-13] MEDS: LISINOPRIL 10 MG TAB PO SCH (11:21)
--- NOTE | 2018-09-13 12:52 | P.CONS ---
History of Present Illness - History of Present Illness This is a pleasant 78 years old female with past medical history of coronary artery disease status post cardiac cath and stent placement, hyperlipidemia, hypertension, thrombocytopenia that's follows up with Dr. Kan, severe left knee osteoarthritis presents with left hip injury secondary to fall on last Tuesday, about 2 days ago. Since then she has pain in her left ear area with difficulty moving her leg secondary to the severe pain. Medical consult was requested for medical management. On admission Vitas looks stable. Labs reviewed showing unremarkable WBC and hemoglobin. Low platelets at 57. INR is 1.2. Liver enzymes not elevated. Creatinine is 0.7. Urine is not suspicious for infection INR is 1.2 Chest x-ray: No acute process. X-ray of the left knee shows moderate severe osteoarthritis of the knee joint with chondrocalcinosis. There is acute intertrochanteric fracture of the left femur Patient has been evaluated by cardiology team for preop evaluation. Review of Systems CONSTITUTIONAL: No fever, no malaise, no fatigue. HEENT: No recent visual problems or hearing problems. Denied any sore throat. CARDIOVASCULAR: No orthopnea, PND, no palpitations, no syncope. PULMONARY: No shortness of breath, no cough, no hemoptysis. GASTROINTESTINAL: No diarrhea, no nausea, no vomiting, no abdominal pain. Normoactive bowel sounds. NEUROLOGICAL: No headaches, no weakness, no numbness. HEMATOLOGICAL: Denies any bleeding or petechiae. GENITOURINARY: Denies any burning micturition, frequency, or urgency. MUSCULOSKELETAL/RHEUMATOLOGICAL: Denies any joint pain, swelling, or any muscle pain. ENDOCRINE: Denies any polyuria or polydipsia. Past Medical History Past Medical History: Blood Disorder, Coronary Artery Disease (CAD), Hyperlipidemia, Hypertension, Myocardial Infarction ([place]) Additional Past Medical History / Comment(s): Thrombocytopenia-sees Dr. Kan. 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, 11-28-15 ercp Past Anesthesia/Blood Transfusion Reactions: No Reported Reaction Date of Last Stent Placement:: 1998 Past Psychological History: No Psychological Hx Reported Smoking Status: Current some day smoker Past Alcohol Use History: None Reported Additional Past Alcohol Use History / Comment(s): smokes maybe weekly- 1-2 cigarettes- had smoked and quit for 12 yrs and started up about 5 yrs ago again Past Drug Use History: None Reported - Past Family History Mother Family Medical History: Cancer Additional Family Medical History / Comment(s): Breast Ca Father Family Medical History: Myocardial Infarction ([place]) Additional Family Medical History / Comment(s): @ age 86 from [place] Medications and Allergies Home Medications Medication Instructions Recorded Confirmed Type Lisinopril [Prinivil] 10 mg PO DAILY 03/09/15 09/12/18 History Metoprolol Tartrate [Lopressor] 50 mg PO BID 03/09/15 09/12/18 History Isosorbide Mononitrate ER [Imdur] 60 mg PO DAILY 10/30/15 09/12/18 History Aspirin EC [Ecotrin Low Dose] 81 mg PO DAILY 09/12/18 09/12/18 History Pravastatin Sodium [Pravachol] 40 mg PO HS 09/12/18 09/12/18 History Allergies Allergy/AdvReac Type Severity Reaction Status Date / Time cephalexin monohydrate Allergy Rash/Hives/ Verified 09/12/18 21:34 [From Keflex] Swelling codeine Allergy Unknown Verified 09/12/18 21:34 meperidine HCl [From Demerol] Allergy Rash/Hives Verified 09/12/18 21:34 Penicillins Allergy Swelling Verified 09/12/18 21:34 pentazocine lactate Allergy Rash/Hives-Stomach Verified 09/12/18 21:34 [From Talwin] Upset propoxyphene napsylate Allergy Rash/Hives- Verified 09/12/18 21:34 [From Darvocet-N] Itch Physical Exam Vitals: Vital Signs Temp Pulse Pulse Resp BP BP Pulse Ox 09/13/18 07:00 98.5 F 81 17 125/57 95 09/13/18 01:15 98.3 F 82 14 137/59 95 09/13/18 01:00 98.3 F 82 14 137/59 95 09/13/18 00:42 98.3 F 85 16 149/73 09/13/18 00:00 72 14 128/60 94 L 09/12/18 23:07 67 14 133/65 95 09/12/18 23:00 68 15 135/108 94 L 09/12/18 22:30 69 15 147/65 96 09/12/18 22:00 70 15 133/65 97 09/12/18 21:30 68 15 133/65 09/12/18 21:16 68 15 96 09/12/18 21:13 98.5 F 67 14 133/65 96 Intake and Output 09/12/18 09/13/18 09/13/18 22:59 06:59 14:59 Intake Total 180 Output Total 200 Balance -200 180 Intake: Oral 180 Output: Urine 200 Other: Voiding Method Indwelling Catheter Weight 66.224 kg GENERAL: The patient is alert and oriented x3, not in any acute distress. Well developed, well nourished. HEENT: Pupils are round and equally reacting to light. EOMI. No scleral icterus. No conjunctival pallor. Normocephalic, atraumatic. No pharyngeal erythema. No thyromegaly. CARDIOVASCULAR: S1 and S2 present. No murmurs, rubs, or gallops. PULMONARY: Chest is clear to auscultation, no wheezing or crackles. ABDOMEN: Soft, nontender, nondistended, normoactive bowel sounds. No palpable organomegaly. MUSCULOSKELETAL: No joint swelling or deformity. -EXTREMITIES: No cyanosis, clubbing, or pedal edema. Left hip tenderness, less tenderness in her left knee. Right wrist chronic arthritis problem NEUROLOGICAL: Gross neurological examination did not reveal any focal deficits. SKIN: No rashes. Results CBC & Chem 7: 09/12/18 22:20 09/12/18 22:20 Labs: Abnormal Lab Results - Last 24 Hours (Table) 09/12/18 09/12/18 09/12/18 Range/Units 22:20 22:20 22:20 RBC 3.71 L (3.80-5.40) m/uL RDW 15.8 H (11.5-15.5) % Plt Count 57 L (150-450) k/uL Lymphocytes # 0.8 L (1.0-4.8) k/uL PT 12.6 H (9.0-12.0) sec INR 1.2 H (<1.2) Chloride 112 H (98-107) mmol/L Glucose 110 H (74-99) mg/dL Calcium 8.3 L (8.4-10.2) mg/dL Total Bilirubin 2.6 H (0.2-1.3) mg/dL Total Protein 5.6 L (6.3-8.2) g/dL Albumin 2.9 L (3.5-5.0) g/dL Urine Protein (Negative) 09/12/18 Range/Units 23:50 RBC (3.80-5.40) m/uL RDW (11.5-15.5) % Plt Count (150-450) k/uL Lymphocytes # (1.0-4.8) k/uL PT (9.0-12.0) sec INR (<1.2) Chloride (98-107) mmol/L Glucose (74-99) mg/dL Calcium (8.4-10.2) mg/dL Total Bilirubin (0.2-1.3) mg/dL Total Protein (6.3-8.2) g/dL Albumin (3.5-5.0) g/dL Urine Protein Trace H (Negative) Assessment and Plan Assessment: Acute intertrochanteric fracture of the left femur Severe osteoarthritis of the left knee. History of coronary artery disease status post stent placement Hyperlipidemia Hypertension History of thrombocytopenia. Right wrist chronic arthritis problem Plan: This is a pleasant 78 years old female who presents with left femur fracture secondary to fall. Patient is high-risk but acceptable for this intermediate risk procedure. Labs and medication were reviewed.. Continue same treatment. Continue with s ymptomatic treatment. Resume home medication. Monitor lytes and vitals. DVT and GI prophylaxis. Further recommendations of the clinical course of the patient DVT prophylaxis and pain management as per the primary team. Prognosis is guarded was at bedside and all their answers were question to their satisfaction. thank you for consulting us, please feel free to contact us for any further question or clarification.
--- NOTE | 2018-09-13 14:21 | P.CONS ---
History of Present Illness - Reason for Consult Consult date: 09/13/18 Thrombocytopenia Requesting physician: Raymond Dozier - Chief Complaint Fall - History of Present Illness Gemma is a pleasant patient of Dr. chapman with known chronic ITP her baseline platelet count ranges between 50,000 and 70,000 since 2007. She follows with Dr. Kan for this as well as B12 deficiency she presented to the emergency room after a fall. She was found to have Displaced left intertrochanteric femur fracture, surgical intervention is recommended therefore hematology has been consulted regarding clearance due to her chronic thrombocytopenia. Her platelet count yesterday was 57,000. Review of Systems A 14 point review of systems was assessed and completed in all negative except for HPI Past Medical History Past Medical History: Blood Disorder, Coronary Artery Disease (CAD), Hyper lipidemia, Hypertension, Myocardial Infarction ([place]) Additional Past Medical History / Comment(s): Thrombocytopenia-sees Dr. Kan. 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, 11-28-15 ercp Past Anesthesia/Blood Transfusion Reactions: No Reported Reaction Date of Last Stent Placement:: 1998 Past Psychological History: No Psychological Hx Reported Smoking Status: Current some day smoker Past Alcohol Use History: None Reported Additional Past Alcohol Use History / Comment(s): smokes maybe weekly- 1-2 cigarettes- had smoked and quit for 12 yrs and started up about 5 yrs ago again Past Drug Use History: None Reported - Past Family History Mother Family Medical History: Cancer Additional Family Medical History / Comment(s): Breast Ca Father Family Medical History: Myocardial Infarction ([place]) Additional Family Medical History / Comment(s): @ age 86 from [place] Medications and Allergies Home Medications Medication Instructions Recorded Confirmed Type Lisinopril [Prinivil] 10 mg PO DAILY 03/09/15 09/12/18 History Metoprolol Tartrate [Lopressor] 50 mg PO BID 03/09/15 09/12/18 History Isosorbide Mononitrate ER [Imdur] 60 mg PO DAILY 10/30/15 09/12/18 History Aspirin EC [Ecotrin Low Dose] 81 mg PO DAILY 09/12/18 09/12/18 History Pravastatin Sodium [Pravachol] 40 mg PO HS 09/12/18 09/12/18 History Allergies Allergy/AdvReac Type Severity Reaction Status Date / Time cephalexin monohydrate Allergy Rash/Hives/ Verified 09/12/18 21:34 [From Keflex] Swelling codeine Allergy Unknown Verified 09/12/18 21:34 meperidine HCl [From Demerol] Allergy Rash/Hives Verified 09/12/18 21:34 Penicillins Allergy Swelling Verified 09/12/18 21:34 pentazocine lactate Allergy Rash/Hives-Stomach Verified 09/12/18 21:34 [From Talwin] Upset propoxyphene napsylate Allergy Rash/Hives- Verified 09/12/18 21:34 [From Darvocet-N] Itch Physical Exam Vitals: Vital Signs Temp Pulse Pulse Resp BP BP Pulse Ox 09/13/18 07:00 98.5 F 81 17 125/57 95 09/13/18 01:15 98.3 F 82 14 137/59 95 09/13/18 01:00 98.3 F 82 14 137/59 95 09/13/18 00:42 98.3 F 85 16 149/73 09/13/18 00:00 72 14 128/60 94 L 09/12/18 23:07 67 14 133/65 95 09/12/18 23:00 68 15 135/108 94 L 09/12/18 22:30 69 15 147/65 96 09/12/18 22:00 70 15 133/65 97 09/12/18 21:30 68 15 133/65 09/12/18 21:16 68 15 96 09/12/18 21:13 98.5 F 67 14 133/65 96 Intake and Output 09/12/18 09/13/18 09/13/18 22:59 06:59 14:59 Intake Total 340 Output Total 200 Balance -200 340 Intake: Oral 340 Output: Urine 200 Other: Voiding Method Indwelling Catheter Weight 66.224 kg General: Alert and Oriented x3, No Acute Distress Head: Normocytic, Atraumatic Neck: Supple Mouth: No Lesions, No Thrush Eyes: Non-sclerotic No Palpable cervical, supraclavicular, axillary adenopathy Heart: Regular Rate, Regular Rhythm Lungs: Clear to Ausculations, No Wheeze, No Rhonchi, Diminishe bilateral lower lobes, No increased respiratory effort noted Abdomen: Soft, Non-Distended, Non-Tended, BSx4 Extremities: No Edema, Equal Strength Neurological: No Focal Defects: No sensory or motor deficits noted Psych: Calm and cooperative Results CBC & Chem 7: 09/13/18 14:20 09/12/18 22:20 Labs: Abnormal Lab Results - Last 24 Hours (Table) 09/12/18 09/12/18 09/12/18 Range/Units 22:20 22:20 22:20 RBC 3.71 L (3.80-5.40) m/uL RDW 15.8 H (11.5-15.5) % Plt Count 57 L (150-450) k/uL Lymphocytes # 0.8 L (1.0-4.8) k/uL PT 12.6 H (9.0-12.0) sec INR 1.2 H (<1.2) Chloride 112 H (98-107) mmol/L Glucose 110 H (74-99) mg/dL Calcium 8.3 L (8.4-10.2) mg/dL Total Bilirubin 2.6 H (0.2-1.3) mg/dL Total Protein 5.6 L (6.3-8.2) g/dL Albumin 2.9 L (3.5-5.0) g/dL Urine Protein (Negative) 09/12/18 Range/Units 23:50 RBC (3.80-5.40) m/uL RDW (11.5-15.5) % Plt Count (150-450) k/uL Lymphocytes # (1.0-4.8) k/uL PT (9.0-12.0) sec INR (<1.2) Chloride (98-107) mmol/L Glucose (74-99) mg/dL Calcium (8.4-10.2) mg/dL Total Bilirubin (0.2-1.3) mg/dL Total Protein (6.3-8.2) g/dL Albumin (3.5-5.0) g/dL Urine Protein Trace H (Negative) Assessment and Plan Plan: Assessment and Recommendations: 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 - Monitor coags with liver disease Fall from Standing requiring orthopedic intervention. Recommendation: - Monitor coags - OK for surgery if platlets greater than 50K. - Within one hour of surgery or duuring procedure rec one unit of platlets to be given and serial CBC and coags after
[2018-09-13 14:33] LABS: Basophils % (A) 0 %; Eosinophils # (A) 0.1 k/uL (0-0.7); Eosinophils % (A) 2 %; HCT 32.9 % (34.0-46.0); Hypochromasia Slight; Lymphocytes # (A) 0.4 k/uL (1.0-4.8); Lymphocytes % (A) 9 %; MCH 32.3 pg (25.0-35.0); MCHC 33.3 g/dL (31.0-37.0); MCV 96.8 fL (80.0-100.0); Monocytes # (A) 0.4 k/uL (0-1.0); Monocytes % (A) 8 %; Neutrophils # (A) 3.6 k/uL (1.3-7.7); Neutrophils % (A) 79 %; Poikilocytosis Moderate; RDW 15.8 % (11.5-15.5); WBC 4.6 k/uL (3.8-10.6)
[2018-09-13 14:35] LABS: Platelet Count 43 k/uL (150-450)
[2018-09-13] MEDS: oxyCODONE-APAP 5-325MG 1 EACH TAB PO PRN (19:22)
[2018-09-13] MEDS: PRAVASTATIN SODIUM 40 MG TAB PO SCH (20:44)
[2018-09-14] MEDS: oxyCODONE-APAP 5-325MG 1 EACH TAB PO PRN ×5 (03:05→21:14)
[2018-09-14 07:35] LABS: Basophils % (A) 0 %; Eosinophils # (A) 0.1 k/uL (0-0.7); Eosinophils % (A) 2 %; HCT 30.1 % (34.0-46.0); HGB 10.2 gm/dL (11.4-16.0); Lymphocytes # (A) 0.6 k/uL (1.0-4.8); Lymphocytes % (A) 15 %; MCH 31.8 pg (25.0-35.0); MCHC 33.9 g/dL (31.0-37.0); MCV 93.7 fL (80.0-100.0); Monocytes # (A) 0.3 k/uL (0-1.0); Monocytes % (A) 8 %; Neutrophils # (A) 3.1 k/uL (1.3-7.7); Neutrophils % (A) 73 %; Poikilocytosis Slight; RBC 3.21 m/uL (3.80-5.40); RDW 14.8 % (11.5-15.5); WBC 4.2 k/uL (3.8-10.6)
[2018-09-14 07:41] LABS: Platelet Count 40 k/uL (150-450)
[2018-09-14 08:11] LABS: ALT 20 U/L (9-52); AST 22 U/L (14-36); African American GFR (CKD) >90 (>60 ml/min/1.73 sqM); Albumin 2.2 g/dL (3.5-5.0); Alkaline Phosphatase 67 U/L (38-126); Anion Gap 5 mmol/L; Blood Urea Nitrogen 11 mg/dL (7-17); Calcium 7.7 mg/dL (8.4-10.2); Carbon Dioxide 22 mmol/L (22-30); Chloride 109 mmol/L (98-107); Glucose 86 mg/dL (74-99); Potassium 3.8 mmol/L (3.5-5.1); Sodium 136 mmol/L (137-145); Total Protein 4.5 g/dL (6.3-8.2)
[2018-09-14] MEDS: ISOSORBIDE MONONITRATE ER 60 MG TAB.ER.24H PO SCH (08:18)
[2018-09-14] MEDS: LISINOPRIL 10 MG TAB PO SCH (08:18)
[2018-09-14] MEDS: METOPROLOL TARTRATE 50 MG TAB PO SCH ×2 (08:19→21:14)
[2018-09-14] MEDS: ASPIRIN 81 MG PO SCH (08:19)
[2018-09-14] MEDS ORDERED: PANTOPRAZOLE SODIUM 40 MG GRANULE PKT PO SCH (11:15)
--- NOTE | 2018-09-14 12:06 | P.PN ---
Subjective Progress Note Date: 09/14/18 Principal diagnosis: Left intertrochanteric femur fracture Patient is evaluated today at bedside, her is present. She is resting comfortably. She notes discomfort in the left leg when she attempts to move. Patient is being followed by multiple medical specialists at this time. Denies any chest pain or shortness of breath at this time. Objective - Vital Signs Vital signs: Vital Signs Temp 98.7 F 09/14/18 07:30 Pulse 78 09/14/18 08:00 Resp 17 09/14/18 08:00 BP 136/64 09/14/18 07:30 Pulse Ox 95 09/14/18 07:30 Intake & Output 09/13/18 09/14/18 09/14/18 18:59 06:59 18:59 Intake Total 640 600 Output Total 750 315 Balance -110 285 Intake: IV 600 Normal Saline @ 75 600 Oral 640 Output: Urine 750 315 Other: Voiding Method Indwelling Catheter Indwelling Catheter Indwelling Catheter # Voids 2 - Exam Left lower extremity: Mild shortening and external rotation of the leg noted, distal neurovascular exam is intact - Labs CBC & Chem 7: 09/14/18 07:06 09/14/18 07:06 Labs: Abnormal Lab Results - Last 24 Hours (Table) 09/13/18 09/14/18 09/14/18 Range/Units 14:20 07:06 07:06 RBC 3.40 L 3.21 L (3.80-5.40) m/uL Hgb 11.0 L 10.2 L (11.4-16.0) gm/dL Hct 32.9 L 30.1 L (34.0-46.0) % RDW 15.8 H (11.5-15.5) % Plt Count 43 L 40 L (150-450) k/uL Lymphocytes # 0.4 L 0.6 L (1.0-4.8) k/uL Sodium 136 L (137-145) mmol/L Chloride 109 H (98-107) mmol/L Calcium 7.7 L (8.4-10.2) mg/dL Total Bilirubin 2.0 H (0.2-1.3) mg/dL Total Protein 4.5 L (6.3-8.2) g/dL Albumin 2.2 L (3.5-5.0) g/dL Assessment and Plan Plan: Assessment: 1. Left intertrochanteric femur fracture 2. Other medical comorbidities Plan: According to hematology's note, they do want platelets at or above 50 for mooney rgery. Platelets today are at 40, await hematology's recommendations for possible transfusion today and further transfusions for during or after surgery Planning for surgery on 09/15/2018 pending platelet count, patient will be made nothing by mouth after midnight tonight Nonweightbearing left lower extremity Pain control GI and DVT prophylaxis, due to patient's platelet count, appreciate hematology recommendations for DVT prophylaxis Further recommendations at follow Time with Patient: Less than 30
[2018-09-14] MEDS: PANTOPRAZOLE 40 MG TABLET PO SCH (12:23)
--- NOTE | 2018-09-14 12:39 | P.PN ---
Subjective Progress Note Date: 09/14/18 This is a pleasant 78-year-old female past medical history significant for coronary artery disease with stent placement to the RCA and chronically occluded OM, ischemic cardiomyopathy, hypertension, dyslipidemia, thrombocytopenia and chronic nicotine dependence. We have asked to see her in consultation secondary to preoperative evaluation. She follows in the office with Dr. Erickson. On Tuesday while walking through her backyard she tripped and fell over her dog on the left side causing an acute intertrochanteric fracture of the left femur. She denies symptoms of chest discomfort, shortness of breath, dizziness, palpitations, nausea, vomiting or diaphoresis prior to falling. She states she simply tripped and fell over the dog. She is tentatively scheduled for surgery tomorrow with Dr. Dozier depending on platelet level. Labs this morning show a platelet count of 40. Objective - Vital Signs Vital signs: Vital Signs Temp 98.7 F 09/14/18 07:30 Pulse 78 09/14/18 08:00 Resp 17 09/14/18 08:00 BP 136/64 09/14/18 07:30 Pulse Ox 95 09/14/18 07:30 Intake & Output 09/13/18 09/14/18 09/14/18 18:59 06:59 18:59 Intake Total 640 600 Output Total 750 315 Balance -110 285 Intake: IV 600 Normal Saline @ 75 600 Oral 640 Output: Urine 750 315 Other: Voiding Method Indwelling Catheter Indwelling Catheter Indwelling Catheter # Voids 2 - Exam PHYSICAL EXAMINATION: HEENT: Head is atraumatic, normocephalic. Pupils equal, round. Neck is supple. There is no elevated jugular venous pressure. HEART EXAMINATION: Heart sounds regular, S1 and S2 normal. No murmur or gallop heard. CHEST EXAMINATION: Lungs are clear to auscultation and precussion. No chest wall tenderness is noted on palpation or with deep breathing. ABDOMEN: Soft, nontender. Bowel sounds are heard. No organomegaly noted. EXTREMITIES: 2+ peripheral pulses with evidence of mild peripheral edema and no calf tenderness noted. NEUROLOGIC patient is awake, alert and oriented x3. . - Labs CBC & Chem 7: 09/14/18 07:06 09/14/18 07:06 Labs: Abnormal Lab Results - Last 24 Hours (Table) 09/13/18 09/14/18 09/14/18 Range/Units 14:20 07:06 07:06 RBC 3.40 L 3.21 L (3.80-5.40) m/uL Hgb 11.0 L 10.2 L (11.4-16.0) gm/dL Hct 32.9 L 30.1 L (34.0-46.0) % RDW 15.8 H (11.5-15.5) % Plt Count 43 L 40 L (150-450) k/uL Lymphocytes # 0.4 L 0.6 L (1.0-4.8) k/uL Sodium 136 L (137-145) mmol/L Chloride 109 H (98-107) mmol/L Calcium 7.7 L (8.4-10.2) mg/dL Total Bilirubin 2.0 H (0.2-1.3) mg/dL Total Protein 4.5 L (6.3-8.2) g/dL Albumin 2.2 L (3.5-5.0) g/dL Assessment and Plan Assessment: #1 Left intertrochanteric femur fracture #2 Ischemic cardiomyopathy, EF 40% #3 History of coronary artery disease s/p stent placement RCA 1998 #4 Hypertension #5 Dyslipidemia #6 Thrombocytopenia #7 Chronic nicotine dependence Plan: From director of food and nutrition services perspective, we will review her echocardiogram done yesterday. She has moderate risk for surgery with no absolute contraindications. Continue cardiac medications perioperatively and advise cautious fluid administration. We will continue to follow patient perioperatively and provide further recommendations accordingly. CLEARING TUB WORKER note has been reviewed, I agree with a documented findings and plan of care. Patient was seen and examined.
--- NOTE | 2018-09-14 14:49 | P.PN ---
Subjective This is a pleasant 78 years old female with past medical history of coronary artery disease status post cardiac cath and stent placement, hyperlipidemia, hypertension, thrombocytopenia that's follows up with Dr. Kan, severe left knee osteoarthritis presents with left hip injury secondary to fall on last Tuesday, about 2 days ago. Since then she has pain in her left ear area with difficulty moving her leg secondary to the severe pain. Medical consult was requested for medical management. On admission Vitas looks stable. Labs reviewed showing unremarkable WBC and hemoglobin. Low platelets at 57. INR is 1.2. Liver enzymes not elevated. Creatinine is 0.7. Urine is not suspicious for infection INR is 1.2 Chest x-ray: No acute process. X-ray of the left knee shows moderate severe osteoarthritis of the knee joint with chondrocalcinosis. There is acute intertrochanteric fracture of the left femur Patient has been evaluated by cardiology team for preop evaluation. 09/14/2018 patient lying in bed not in distress, she still have pain and her left hip. Patient is possibly going for surgery tomorrow. Hemodynamically stable. Plat elets today are as low as 40, hemoglobin 10.2 and WBC normal at 4k. Creatinine 0.5. Bilirubin is trending down. Cardiology saw the patient for preop evaluation. Taxonomy Teacher team R following the case as well Objective - Vital Signs Vital signs: Vital Signs Temp 98.7 F 09/14/18 07:30 Pulse 78 09/14/18 08:00 Resp 17 09/14/18 08:00 BP 136/64 09/14/18 07:30 Pulse Ox 95 09/14/18 07:30 Intake & Output 09/13/18 09/14/18 09/14/18 18:59 06:59 18:59 Intake Total 640 600 Output Total 750 315 Balance -110 285 Intake: IV 600 Normal Saline @ 75 600 Oral 640 Output: Urine 750 315 Other: Voiding Method Indwelling Catheter Indwelling Catheter Indwelling Catheter # Voids 2 - Exam GENERAL: The patient is alert and oriented x3, not in any acute distress. Well developed, well nourished. HEENT: Pupils are round and equally reacting to light. EOMI. No scleral icterus. No conjunctival pallor. Normocephalic, atraumatic. No pharyngeal erythema. No thyromegaly. CARDIOVASCULAR: S1 and S2 present. No murmurs, rubs, or gallops. PULMONARY: Chest is clear to auscultation, no wheezing or crackles. ABDOMEN: Soft, nontender, nondistended, normoactive bowel sounds. No palpable organomegaly. MUSCULOSKELETAL: No joint swelling or deformity. -EXTREMITIES: No cyanosis, clubbing, or pedal edema. Left hip tenderness, less tenderness in her left knee. Right wrist chronic arthritis problem NEUROLOGICAL: Gross neurological examination did not reveal any focal deficits. SKIN: No rashes. - Labs CBC & Chem 7: 09/14/18 07:06 09/14/18 07:06 Labs: Abnormal Lab Results - Last 24 Hours (Table) 09/14/18 09/14/18 Range/Units 07:06 07:06 RBC 3.21 L (3.80-5.40) m/uL Hgb 10.2 L (11.4-16.0) gm/dL Hct 30.1 L (34.0-46.0) % Plt Count 40 L (150-450) k/uL Lymphocytes # 0.6 L (1.0-4.8) k/uL Sodium 136 L (137-145) mmol/L Chloride 109 H (98-107) mmol/L Calcium 7.7 L (8.4-10.2) mg/dL Total Bilirubin 2.0 H (0.2-1.3) mg/dL Total Protein 4.5 L (6.3-8.2) g/dL Albumin 2.2 L (3.5-5.0) g/dL Assessment and Plan Assessment: Acute intertrochanteric fracture of the left femur Severe osteoarthritis of the left knee. History of coronary artery disease status post stent placement Hyperlipidemia Hypertension History of thrombocytopenia. Right wrist chronic arthritis problem Plan: This is a pleasant 78 years old female who presents with left femur fracture secondary to fall. Patient is high-risk but acceptable for this intermediate risk procedure. Labs and medication were reviewed.. Continue same treatment. Continue with symptomatic treatment. Resume home medication. Monitor lytes and vitals. DVT and GI prophylaxis. Further recommendations of the clinical course of the patient DVT prophylaxis and pain management as per the primary team. Prognosis is guarded was at bedside and all their answers were question to their satisfaction. thank you for consulting us, please feel free to contact us for any further question or clarification.
[2018-09-14] MEDS: PRAVASTATIN SODIUM 40 MG TAB PO SCH (21:14)
[2018-09-15] MEDS: oxyCODONE-APAP 5-325MG 1 EACH TAB PO PRN ×4 (01:28→20:25)
[2018-09-15] MEDS ORDERED: SUCCINYLCHOLINE CHLORIDE 100 MG/5 ML SYR IV ONE (08:25)
[2018-09-15] MEDS ORDERED: PROPOFOL 10 MG/ML 20 ML VIAL IV ONE (08:25)
[2018-09-15] MEDS ORDERED: MIDAZOLAM 2 MG/2 ML VIAL ONE (08:25)
[2018-09-15] MEDS ORDERED: ROPIVACAINE 5 MG/ML 30 ML VIAL ONE (08:25)
[2018-09-15] MEDS ORDERED: fentaNYL (PF) 50 MCG/ML 2 ML AMP ONE (08:25)
[2018-09-15] MEDS ORDERED: SODIUM CHLORIDE 0.9% 1,000 ML IV ONE ×2 (08:31→10:26)
[2018-09-15] MEDS ORDERED: SODIUM CHLORIDE 0.9% 100 ML with ceFAZolin 2,000 MG IV ONE ×2 (08:52)
--- NOTE | 2018-09-15 10:38 | P.OP ---
Date of Procedure: 09/15/18 Preoperative Diagnosis: Left intertrochanteric femur fracture Postoperative Diagnosis: Same Procedure(s) Performed: Trochanteric intramedullary nailing left intertrochanteric femur fracture Implants: Alexandru 11.5 mm x 180 mm short trochanteric femoral nail, 100 mm compression screw Anesthesia: BEL Surgeon: Raymond Dozier Superintendent [employer] #1: Ton Rivera Estimated Blood Loss (ml): 100 Pathology: none sent Condition: stable Disposition: PACU Indications for Procedure: The patient is a 78-year-old female presents after falling injuring her left hip with a closed mildly displaced intertrochanteric femur fracture. A discussion of the risks and benefits of operative intervention was made with patient and her family. She underwent preoperative medical clearance in addition received platelets just prior to surgery secondary to thrombocytopenia. Specific risks of surgery to include infection, neurovascular injury, development of blood clots, possible development nonunion/malunion, and possible need for subsequent procedures was discussed. Informed consent was obtained. Operative Findings: As below Description of Procedure: The patient was brought to the operating room, and after induction of general anesthesia was placed supine on the fracture table. The bony processes were appropriately padded. The fracture was reduced with longitudinal traction and internal rotation of the left lower extremity. This was verified on the AP and lateral views with fluoroscopy. The left lower extremity was then prepped and draped in normal fashion. An 8 cm incision was made proximal to greater trochanter. Skin and subcu tissues were divided sharply. Electrocautery was used for hemostasis. The fascia gluteus seth was opened. Blunt dissection was made down to the tip of the greater trochanter. A starting awl was used to establish the starting point. A ball-tipped guidewire was then inserted with the aid of fluoroscopy. The distal canal was reamed to 13 mm. Proximally the 17 mm reamer was used to level of the lesser trochanter. An 11 mm x 180 mm short trochanteric nail was gently inserted. The guidewire was removed. A threaded guidepin was placed into the centercentral position of the femoral head and neck on the AP and lateral views were within 5 mm the articular surface. A triple reamer was used to depth of 95 mm. A 100 mm compression screw was inserted with the aid of fluoroscopy on the AP and lateral views. Good purchase was obtained. Attention was then paid towards distal locking. The drill cannulas were not in the set were available. This was done using a freehand technique initially trying the static hole then proceeding with locking the distal, dynamic hole. This was verified on the AP and lateral views. The wounds were irrigated with normal saline. Fascia was closed with interrupted #1 Vicryl suture. Subcutaneous tissues were approximated interrupted 2-0 Vicryl sutures. The skin was reapproximated saravanan. A sterile dressing was applied. The patient was awoken from general anesthesia and transferred to recovery room in fair condition. Blood loss was estimated 100 mL. No complications were incurred. Sponge and needle counts were correct at the end the case.
[2018-09-15] MEDS: HYDROmorphone 1 MG/ML 1 ML SYRINGE IVP ONE ×2 (10:40→10:45)
--- NOTE | 2018-09-15 10:45 | XR ---
EXAMINATION TYPE: XR Hip Limited LT DATE OF EXAM: 09/15/2018 COMPARISON: NONE HISTORY: Postop TECHNIQUE: One view submitted. FINDINGS: There is postsurgical change in near anatomic alignment. There is soft tissue edema and emphysema. IMPRESSION: 1. Postoperative change. Appears in near-anatomic alignment.
[2018-09-15] MEDS: fentaNYL (PF) 50 MCG/ML 2 ML AMP IV ONE ×2 (11:03→11:08)
--- NOTE | 2018-09-15 11:10 | FL ---
EXAMINATION TYPE: FL guidance operating room DATE OF EXAM: 09/15/2018 HISTORY: Flouroscopy time 2 minutes and 42 seconds seconds of fluoroscopy provided. IMPRESSION: 1. Fluoroscopy time.
--- NOTE | 2018-09-15 11:20 | P.ANPRN ---
Procedure Note - Anesthesia - Nerve Block Performed Left Fascia Iliaca Single Time Out Performed: Yes (1048) Date of Procedure: 09/15/18 Procedure Start Time: 10:49 Procedure Stop Time: 10:52 Location of Patient Procedure: PreOp Indication: Acute Post-Operative Pain, Dx/Pain Location (left hip ), Requested by physician Sedation Type: Sedate with meaningful contact maintained Position: Supine Catheter: None Needle Types: On-Q Needle Gauge: 21 Technique: Ultrasound Injectate: Other (see comment) (40ml 0.25% Ropivacaine) Blood Aspirated: No Pain Paresthesia on Injection Noted: No Resistance on Injection: Normal Events: Uneventful and Well Tolerated
[2018-09-15] MEDS: METOPROLOL TARTRATE 50 MG TAB PO SCH ×2 (12:05→20:25)
[2018-09-15] MEDS: ISOSORBIDE MONONITRATE ER 60 MG TAB.ER.24H PO SCH (12:05)
[2018-09-15] MEDS: LISINOPRIL 10 MG TAB PO SCH (12:05)
[2018-09-15] MEDS: ASPIRIN 81 MG PO SCH (12:05)
[2018-09-15] MEDS: PANTOPRAZOLE 40 MG TABLET PO SCH (12:08)
--- NOTE | 2018-09-15 14:54 | P.PN ---
Subjective This is a pleasant 78 years old female with past medical history of coronary artery disease status post cardiac cath and stent placement, hyperlipidemia, hypertension, thrombocytopenia that's follows up with Dr. Kan, severe left knee osteoarthritis presents with left hip injury secondary to fall on last Tuesday, about 2 days ago. Since then she has pain in her left ear area with difficulty moving her leg secondary to the severe pain. Medical consult was requested for medical management. On admission Vitas looks stable. Labs reviewed showing unremarkable WBC and hemoglobin. Low platelets at 57. INR is 1.2. Liver enzymes not elevated. Creatinine is 0.7. Urine is not suspicious for infection INR is 1.2 Chest x-ray: No acute process. X-ray of the left knee shows moderate severe osteoarthritis of the knee joint with chondrocalcinosis. There is acute intertrochanteric fracture of the left femur Patient has been evaluated by cardiology team for preop evaluation. 09/14/2018 patient lying in bed not in distress, she still have pain and her left hip. Patient is possibly going for surgery tomorrow. Hemodynamically stable. Plat elets today are as low as 40, hemoglobin 10.2 and WBC normal at 4k. Creatinine 0.5. Bilirubin is trending down. Cardiology saw the patient for preop evaluation. [employer]ather Separator team R following the case as well 09/15/2018 Patient presents with left femoral fracture, she is a status post intramedullary nailing by orthopedic team, today is post op day #0. She is in bed, fully awake and oriented, her pain is controlled with pain pills. She denies chest pain or dyspnea or abdominal pain. Hemodynamically stable. She is saturating 98% on room air. Patient has no more fever for 48 hours. Continue with postop care. Patient got infected transfusion, follow-up level. No signs symptoms of inf ection and no need for antibiotics for now. I have discussion with the patient and family at bedside, they told me they want to make their on copayments. 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 Objective - Vital Signs Vital signs: Vital Signs Temp 97.8 F 09/15/18 12:00 Pulse 90 09/15/18 14:01 Resp 20 09/15/18 14:01 BP 124/73 09/15/18 14:01 Pulse Ox 100 09/15/18 14:01 Intake & Output 09/14/18 09/15/18 09/15/18 18:59 06:59 18:59 Intake Total 058 430 9669 Output Total 400 700 100 Balance 081 26 8708 Intake: IV 245 501 9087 Normal Saline @ 75 525 320 Intake, IV Titration 40 Amount Sodium Chloride 0.9% 1, 40 000 ml @ 0 mls/hr IV .[facility] ONE Rx#:[id number] Oral 400 Blood Product 305 Platelet Irr Pheresis 2 305 Acda Unit [id number] Output: Urine 400 700 Estimated Blood Loss 100 Other: Voiding Method Indwelling Catheter Indwelling Catheter - Exam GENERAL: The patient is alert and oriented x3, not in any acute distress. Well developed, well nourished. HEENT: Pupils are round and equally reacting to light. EOMI. No scleral icterus. No conjunctival pallor. Normocephalic, atraumatic. No pharyngeal erythema. No thyromegaly. CARDIOVASCULAR: S1 and S2 present. No murmurs, rubs, or gallops. PULMONARY: Chest is clear to auscultation, no wheezing or crackles. ABDOMEN: Soft, nontender, nondistended, normoactive bowel sounds. No palpable organomegaly. MUSCULOSKELETAL: No joint swelling or deformity. -EXTREMITIES: No cyanosis, clubbing, or pedal edema. Left hip tenderness, less tenderness in her left knee. Right wrist chronic arthritis problem NEUROLOGICAL: Gross neurological examination did not reveal any focal deficits. SKIN: No rashes. - Labs CBC & Chem 7: 09/14/18 07:06 09/14/18 07:06 Labs: Microbiology - Last 24 Hours (Table) 09/13/18 20:37 Blood Culture - Preliminary Blood No Growth after 24 hours Assessment and Plan Assessment: Acute intertrochanteric fracture of the left femur, she is a status post intramedullary nailing Severe osteoarthritis of the left knee. History of coronary artery disease status post stent placement Hyperlipidemia Hypertension History of thrombocytopenia. Right wrist chronic arthritis problem Plan: This is a pleasant 78 years old female who presents with left femur fracture secondary to fall. Status post intramedullary nailing. Hematology and cartilage team evaluated the patient. Patient with thrombocytopenia. Follow-up lytic a couple. No signs symptoms of bleeding. Continue same treatment. Continue with symptomatic treatment. Resume home medication. Monitor lytes and vitals. DVT and GI prophylaxis. Further recommendations of the clinical course of the patient DVT prophylaxis and pain management as per the primary team. Prognosis is guarded and daughter were at bedside and all their questions were answered to their satisfaction. thank you for consulting us, please feel free to contact us for any further question or clarification. We recommend patient follow up with her PCP in one week after discharge and with grain farmer within one to 2 weeks. Family they wanted to make their own appointments
[2018-09-15 16:52] LABS: Basophils % (A) 0 %; Eosinophils % (A) 1 %; HCT 28.6 % (34.0-46.0); HGB 9.8 gm/dL (11.4-16.0); Lymphocytes # (A) 0.2 k/uL (1.0-4.8); Lymphocytes % (A) 3 %; MCH 32.5 pg (25.0-35.0); MCHC 34.3 g/dL (31.0-37.0); MCV 94.7 fL (80.0-100.0); Mean Platelet Volume 9.2; Monocytes # (A) 0.1 k/uL (0-1.0); Monocytes % (A) 2 %; Neutrophils % (A) 94 %; Poikilocytosis Moderate; RBC 3.02 m/uL (3.80-5.40); RDW 15.3 % (11.5-15.5); WBC 6.4 k/uL (3.8-10.6)
[2018-09-15 17:04] LABS: Platelet Count 64 k/uL (150-450)
[2018-09-15] MEDS: PRAVASTATIN SODIUM 40 MG TAB PO SCH (20:25)
[2018-09-16] MEDS: oxyCODONE-APAP 5-325MG 1 EACH TAB PO PRN ×3 (03:02→12:13)
[2018-09-16] MEDS: METOPROLOL TARTRATE 50 MG TAB PO SCH ×2 (07:47→20:06)
[2018-09-16] MEDS: LISINOPRIL 10 MG TAB PO SCH (07:47)
[2018-09-16] MEDS: ASPIRIN 81 MG PO SCH (07:47)
[2018-09-16] MEDS: ISOSORBIDE MONONITRATE ER 60 MG TAB.ER.24H PO SCH (07:48)
[2018-09-16] MEDS: PANTOPRAZOLE 40 MG TABLET PO SCH (07:48)
--- NOTE | 2018-09-16 09:45 | P.PN ---
Subjective Progress Note Date: 09/16/18 Principal diagnosis: Status post intramedullary nail left intertrochanteric femur fracture Patient evaluated at bedside today, she is resting comfortably. Patient's pain is improved with regards to the left hip. Patient currently denies any chest pain or shortness breath. She is waiting to work with physical therapy at this time. Objective - Vital Signs Vital signs: Vital Signs Temp 98.1 F 09/16/18 07:00 Pulse 84 09/16/18 07:00 Resp 16 09/16/18 07:00 BP 113/64 09/16/18 07:00 Pulse Ox 96 09/16/18 07:00 Intake & Output 09/15/18 09/16/18 09/16/18 18:59 06:59 18:59 Intake Total 1545 590 Output Total 700 600 Balance 845 -10 Intake: IV 1000 Intake, IV Titration 40 110 Amount Sodium Chloride 0.9% 1, 40 000 ml @ 0 mls/hr IV .STK -MED ONE Rx#:[id number] Sodium Chloride 0.9% 1, 110 000 ml @ 0 mls/hr IV .STK -[facility] ONE Rx#:[id number] Oral 200 480 Blood Product 305 Platelet Irr Pheresis 2 305 Acda Unit [id number] Output: Urine 600 600 Uretheral (Hinds) 300 Estimated Blood Loss 100 Other: Voiding Method Indwelling Catheter Indwelling Catheter Indwelling Catheter - Exam Left lower extremity: Bandages are in place over incisions, there is minimal bloody serosanguineous drainage. Bisi are in good position and condition. Minimal soft tissue swelling present around the leg, the compartments are soft. The calf is soft, no tenderness with palpation. Plantar flexion, dorsiflexion, EHL, FHL are intact. Dorsal pedis pulses 2+ - Labs CBC & Chem 7: 09/15/18 15:55 09/14/18 07:06 Labs: Abnormal Lab Results - Last 24 Hours (Table) 09/15/18 Range/Units 15:55 RBC 3.02 L (3.80-5.40) m/uL Hgb 9.8 L (11.4-16.0) gm/dL Hct 28.6 L (34.0-46.0) % Plt Count 64 L D (150-450) k/uL Lymphocytes # 0.2 L (1.0-4.8) k/uL Microbiology - Last 24 Hours (Table) 09/13/18 20:37 Blood Culture - Preliminary Blood No Growth after 48 hours Assessment and Plan Plan: Assessment: Postoperative day 1 status post IM nail left intertrochanteric femur fracture Plan: Pain control, continue oral medication as needed GI and DVT prophylaxis, hematology/internal medicine recommendations Patient to work with physical therapy today, utilize walker ambulation Weight-bear as tolerated left lower extremity Encourage incentive spirometer Patient plans to home when stable, discuss with her the possible need for rehab, she does not want this. She does have help at home, we'll continue to evaluate Time with Patient: Less than 30
[2018-09-16 10:27] LABS: Anisocytosis Slight; Basophils % (A) 0 %; Eosinophils % (A) 0 %; HCT 24.4 % (34.0-46.0); HGB 8.6 gm/dL (11.4-16.0); Lymphocytes # (A) 0.6 k/uL (1.0-4.8); Lymphocytes % (A) 8 %; MCH 32.7 pg (25.0-35.0); MCHC 35.4 g/dL (31.0-37.0); MCV 92.4 fL (80.0-100.0); Mean Platelet Volume 10.1; Monocytes # (A) 0.6 k/uL (0-1.0); Monocytes % (A) 9 %; Neutrophils # (A) 5.6 k/uL (1.3-7.7); Neutrophils % (A) 81 %; Poikilocytosis Moderate; RBC 2.64 m/uL (3.80-5.40); RDW 16.2 % (11.5-15.5); WBC 6.8 k/uL (3.8-10.6)
[2018-09-16 10:49] LABS: Platelet Count 62 k/uL (150-450)
--- NOTE | 2018-09-16 12:59 | P.PN ---
Subjective This is a pleasant 78 years old female with past medical history of coronary artery disease status post cardiac cath and stent placement, hyperlipidemia, hypertension, thrombocytopenia that's follows up with Dr. Kan, severe left knee osteoarthritis presents with left hip injury secondary to fall on last Tuesday, about 2 days ago. Since then she has pain in her left ear area with difficulty moving her leg secondary to the severe pain. Medical consult was requested for medical management. On admission Vitas looks stable. Labs reviewed showing unremarkable WBC and hemoglobin. Low platelets at 57. INR is 1.2. Liver enzymes not elevated. Creatinine is 0.7. Urine is not suspicious for infection INR is 1.2 Chest x-ray: No acute process. X-ray of the left knee shows moderate severe osteoarthritis of the knee joint with chondrocalcinosis. There is acute intertrochanteric fracture of the left femur Patient has been evaluated by cardiology team for preop evaluation. 09/14/2018 patient lying in bed not in distress, she still have pain and her left hip. Patient is possibly going for surgery tomorrow. Hemodynamically stable. Plat elets today are as low as 40, hemoglobin 10.2 and WBC normal at 4k. Creatinine 0.5. Bilirubin is trending down. Cardiology saw the patient for preop evaluation. [employer] Electrical Person team R following the case as well 09/15/2018 Patient presents with left femoral fracture, she is a status post intramedullary nailing by orthopedic team, today is post op day #0. She is in bed, fully awake and oriented, her pain is controlled with pain pills. She denies chest pain or dyspnea or abdominal pain. Hemodynamically stable. She is saturating 98% on room air. Patient has no more fever for 48 hours. Continue with postop care. Patient got infected transfusion, follow-up level. No signs symptoms of inf ection and no need for antibiotics for now. I have discussion with the patient and family at bedside, they told me they want to make their on copayments. I discussed and instructed the family and patient to follow-up with her PCP and head field hockey coach within 1 week after discharge and they agree. 09/16/2018 Patient keep improving, he is a status post intramedullary nailing of the left femur fracture, today is post op day #0. Patient denies chest pain, dyspnea or other new complaints. Hemodynamically she is a stable. Platelets today is 62, hemoglobin 8.6 and WBC 6.8k. I have long discussion with the and patient at bedside regarding the importance of rehab, all the questions answers and the patient will consider it and let's the medical/surgical team know about her decision to go to rehab or normal. DVT prophylaxis as per the primary care. Please follow-up hematology recommendation Objective - Vital Signs Vital signs: Vital Signs Temp 98.1 F 09/16/18 07:00 Pulse 84 09/16/18 07:00 Resp 16 09/16/18 07:00 BP 113/64 09/16/18 07:00 Pulse Ox 96 09/16/18 07:00 Intake & Output 09/15/18 09/16/18 09/16/18 18:59 06:59 18:59 Intake Total 1545 590 Output Total 700 600 Balance 845 -10 Intake: IV 1000 Intake, IV Titration 40 110 Amount Sodium Chloride 0.9% 1, 40 000 ml @ 0 mls/hr IV .STK -[facility] ONE Rx#:[id number] Sodium Chloride 0.9% 1, 110 000 ml @ 0 mls/hr IV .STK -[facility] ONE Rx#:[id number] Oral 200 480 Blood Product 305 Platelet Irr Pheresis 2 305 Acda Unit [id number] Output: Urine 600 600 Uretheral (Hinds) 300 Estimated Blood Loss 100 Other: Voiding Method Indwelling Catheter Indwelling Catheter Indwelling Catheter - Exam GENERAL: The patient is alert and oriented x3, not in any acute distress. Well d eveloped, well nourished. HEENT: Pupils are round and equally reacting to light. EOMI. No scleral icterus. No conjunctival pallor. Normocephalic, atraumatic. No pharyngeal erythema. No thyromegaly. CARDIOVASCULAR: S1 and S2 present. No murmurs, rubs, or gallops. PULMONARY: Chest is clear to auscultation, no wheezing or crackles. ABDOMEN: Soft, nontender, nondistended, normoactive bowel sounds. No palpable organomegaly. MUSCULOSKELETAL: No joint swelling or deformity. -EXTREMITIES: No cyanosis, clubbing, or pedal edema. Left hip tenderness, less tenderness in her left knee. Right wrist chronic arthritis problem NEUROLOGICAL: Gross neurological examination did not reveal any focal deficits. SKIN: No rashes. - Labs CBC & Chem 7: 09/16/18 10:12 09/14/18 07:06 Labs: Abnormal Lab Results - Last 24 Hours (Table) 09/15/18 09/16/18 Range/Units 15:55 10:12 RBC 3.02 L 2.64 L (3.80-5.40) m/uL Hgb 9.8 L 8.6 L (11.4-16.0) gm/dL Hct 28.6 L 24.4 L (34.0-46.0) % RDW 16.2 H (11.5-15.5) % Plt Count 64 L D 62 L (150-450) k/uL Lymphocytes # 0.2 L 0.6 L (1.0-4.8) k/uL Microbiology - Last 24 Hours (Table) 09/13/18 20:37 Blood Culture - Preliminary Blood No Growth after 48 hours Assessment and Plan Assessment: Acute intertrochanteric fracture of the left femur, she is a status post intramedullary nailing Severe osteoarthritis of the left knee. History of coronary artery disease status post stent placement Hyperlipidemia Hypertension History of thrombocytopenia. Right wrist chronic arthritis problem Plan: This is a pleasant 78 years old female who presents with left femur fracture secondary to fall. Status post intramedullary nailing. Hematology and cartilage team evaluated the patient. Patient with thrombocytopenia. Follow-up lytic a couple. No signs symptoms of bleeding. Continue same treatment. Continue with symptomatic treatment. Resume home medication. Monitor lytes and vitals. DVT and GI prophylaxis. Further recommendations of the clinical course of the patient DVT prophylaxis and pain management as per the primary team. Prognosis is guarded and daughter were at bedside and all their questions were answered to their satisfaction. thank you for consulting us, please feel free to contact us for any further question or clarification. We recommend patient follow up with her PCP in one week after discharge and with head field hockey coach within one to 2 weeks. Family they wanted to make their own appointments
[2018-09-16] MEDS: HYDROcodone/APAP 5-325MG 1 EACH TAB PO PRN (18:41)
[2018-09-16] MEDS: PRAVASTATIN SODIUM 40 MG TAB PO SCH (20:07)
[2018-09-17] MEDS: HYDROcodone/APAP 5-325MG 1 EACH TAB PO PRN ×4 (04:24→18:02)
[2018-09-17 06:42] LABS: Anisocytosis Slight; Basophils % (A) 0 %; Eosinophils % (A) 1 %; HCT 22.8 % (34.0-46.0); HGB 7.7 gm/dL (11.4-16.0); Lymphocytes # (A) 0.5 k/uL (1.0-4.8); Lymphocytes % (A) 9 %; MCH 31.3 pg (25.0-35.0); MCV 92.2 fL (80.0-100.0); Mean Platelet Volume 9.8; Monocytes # (A) 0.4 k/uL (0-1.0); Monocytes % (A) 7 %; Neutrophils % (A) 82 %; Poikilocytosis Moderate; RBC 2.47 m/uL (3.80-5.40); RDW 16.2 % (11.5-15.5); WBC 6.1 k/uL (3.8-10.6)
[2018-09-17 06:44] LABS: Platelet Count 64 k/uL (150-450)
[2018-09-17 07:13] LABS: Glucose,Whole Blood 115 mg/dL (75-99)
[2018-09-17] MEDS: METOPROLOL TARTRATE 50 MG TAB PO SCH ×2 (09:15→21:11)
[2018-09-17] MEDS: ISOSORBIDE MONONITRATE ER 60 MG TAB.ER.24H PO SCH (09:15)
[2018-09-17] MEDS: LISINOPRIL 10 MG TAB PO SCH (09:15)
[2018-09-17] MEDS: PANTOPRAZOLE 40 MG TABLET PO SCH (09:15)
[2018-09-17] MEDS: ASPIRIN 81 MG PO SCH (09:16)
--- NOTE | 2018-09-17 11:15 | P.PN ---
Subjective Progress Note Date: 09/17/18 Principal diagnosis: Status post intramedullary nail left intertrochanteric femur fracture Patient evaluated at bedside today, she is resting comfortably. Patient's pain is improved with regards to the left hip. Patient was able to get up to chair yesterday with therapy. Patient's CBC did decrease significantly since yesterday, hemoglobin is 7.7. Objective - Vital Signs Vital signs: Vital Signs Temp 98.3 F 09/17/18 07:00 Pulse 64 09/17/18 07:00 Resp 16 09/17/18 07:00 BP 138/58 09/17/18 07:00 Pulse Ox 98 09/17/18 07:00 Intake & Output 09/16/18 09/17/18 09/17/18 18:59 06:59 18:59 Intake Total 480 450 100 Output Total 300 Balance 180 450 100 Intake: IV 150 Normal Saline @ 75 150 Intake, IV Titration 200 Amount Sodium Chloride 0.9% 100 200 ml @ 0 mls/hr IV .STK-MED ONE with ceFAZolin 2,000 mg Rx#:[id number] Oral 480 100 100 Output: Urine 300 Other: Voiding Method Indwelling Catheter Indwelling Catheter # Voids 3 500 - Exam Left lower extremity: Bandages are in place over incisions, there is minimal bloody serosanguineous drainage. Bisi are in good position and condition. Minimal soft tissue swelling present around the leg, the compartments are soft. The calf is soft, no tenderness with palpation. Plantar flexion, dorsiflexion, EHL, FHL are intact. Dorsal pedis pulses 2+ - Labs CBC & Chem 7: 09/17/18 06:03 09/14/18 07:06 Labs: Abnormal Lab Results - Last 24 Hours (Table) 09/17/18 09/17/18 09/17/18 Range/Units 06:03 07:02 07:53 RBC 2.47 L (3.80-5.40) m/uL Hgb 7.7 L (11.4-16.0) gm/dL Hct 22.8 L (34.0-46.0) % RDW 16.2 H (11.5-15.5) % Plt Count 64 L (150-450) k/uL Lymphocytes # 0.5 L (1.0-4.8) k/uL POC Glucose (mg/dL) 115 H (75-99) mg/dL Crossmatch See Detail Microbiology - Last 24 Hours (Table) 09/13/18 20:37 Blood Culture - Preliminary Blood No Growth after 72 hours Assessment and Plan Plan: Assessment: Postoperative day #2 status post IM nail left intertrochanteric femur fracture Acute blood loss anemia, expected surgical outcome Plan: Pain control, continue oral medication as needed GI and DVT prophylaxis, hematology/internal medicine recommendations Patient to work with physical therapy today, utilize walker ambulation Weight-bear as tolerated left lower extremity Encourage incentive spirometer Transfusions one unit at this time Patient plans to return home when stable, discuss with her the possible need for rehab, she does not want this. She does have help at home, we'll continue to evaluate Time with Patient: Less than 30
--- NOTE | 2018-09-17 12:42 | P.PN ---
Subjective This is a pleasant 78 years old female with past medical history of coronary artery disease status post cardiac cath and stent placement, hyperlipidemia, hypertension, thrombocytopenia that's follows up with Dr. Kan, severe left knee osteoarthritis presents with left hip injury secondary to fall on last Tuesday, about 2 days ago. Since then she has pain in her left ear area with difficulty moving her leg secondary to the severe pain. Medical consult was requested for medical management. On admission Vitas looks stable. Labs reviewed showing unremarkable WBC and hemoglobin. Low platelets at 57. INR is 1.2. Liver enzymes not elevated. Creatinine is 0.7. Urine is not suspicious for infection INR is 1.2 Chest x-ray: No acute process. X-ray of the left knee shows moderate severe osteoarthritis of the knee joint with chondrocalcinosis. There is acute intertrochanteric fracture of the left femur Patient has been evaluated by cardiology team for preop evaluation. 09/14/2018 patient lying in bed not in distress, she still have pain and her left hip. Patient is possibly going for surgery tomorrow. Hemodynamically stable. Plat elets today are as low as 40, hemoglobin 10.2 and WBC normal at 4k. Creatinine 0.5. Bilirubin is trending down. Cardiology saw the patient for preop evaluation. Plateman team R following the case as well 09/15/2018 Patient presents with left femoral fracture, she is a status post intramedullary nailing by orthopedic team, today is post op day #0. She is in bed, fully awake and oriented, her pain is controlled with pain pills. She denies chest pain or dyspnea or abdominal pain. Hemodynamically stable. She is saturating 98% on room air. Patient has no more fever for 48 hours. Continue with postop care. Patient got infected transfusion, follow-up level. No signs symptoms of inf ection and no need for antibiotics for now. I have discussion with the patient and family at bedside, they told me they want to make their on copayments. I discussed and instructed the family and patient to follow-up with her PCP and batcher operator within 1 week after discharge and they agree. 09/16/2018 Patient keep improving, he is a status post intramedullary nailing of the left femur fracture, today is post op day #0. Patient denies chest pain, dyspnea or other new complaints. Hemodynamically she is a stable. Platelets today is 62, hemoglobin 8.6 and WBC 6.8k. I have long discussion with the and patient at bedside regarding the importance of rehab, all the questions answers and the patient will consider it and let's the medical/surgical team know about her decision to go to rehab or normal. DVT prophylaxis as per the primary care. Please follow-up hematology recommendation 09/17/2018 pt has pain in her surgical site ,expected, no chest pain or dyspnea , no abdominal pain or nausea vomiting. She is oriented. She started regular diet, is passing gases but no bowel movement. I discussed the case with her to go to rehab while at bedside, explained the risks benefits and alternative, they stated they are going to consider it. Her hemoglobin dropped significantly from around 10 on admission down to 7.7 today. She's getting 1 unit of blood transfusion and she is tolerating that well so far. Objective - Vital Signs Vital signs: Vital Signs Temp 98.2 F 09/17/18 12:10 Pulse 60 09/17/18 12:10 Resp 20 09/17/18 12:10 BP 129/67 09/17/18 12:10 Pulse Ox 99 09/17/18 11:40 Intake & Output 09/16/18 09/17/18 09/17/18 18:59 06:59 18:59 Intake Total 480 450 100 Output Total 300 Balance 180 450 100 Intake: IV 150 Normal Saline @ 75 150 Intake, IV Titration 200 Amount Sodium Chloride 0.9% 100 200 ml @ 0 mls/hr IV .STK-MED ONE with ceFAZolin 2,000 mg Rx#:[id number] Oral 480 100 100 Blood Product 0 Rc As-1 Unit 0 [id number] Output: Urine 300 Other: Voiding Method Indwelling Catheter Indwelling Catheter # Voids 3 500 - Exam GENERAL: The patient is alert and oriented x3, not in any acute distress. Well developed, well nourished. HEENT: Pupils are round and equally reacting to light. EOMI. No scleral icterus. No conjunctival pallor. Normocephalic, atraumatic. No pharyngeal erythema. No thyromegaly. CARDIOVASCULAR: S1 and S2 present. No murmurs, rubs, or gallops. PULMONARY: Chest is clear to auscultation, no wheezing or crackles. ABDOMEN: Soft, nontender, nondistended, normoactive bowel sounds. No palpable organomegaly. MUSCULOSKELETAL: No joint swelling or deformity. -EXTREMITIES: No cyanosis, clubbing, or pedal edema. Left hip tenderness, less tenderness in her left knee. Right wrist chronic arthritis problem NEUROLOGICAL: Gross neurological examination did not reveal any focal deficits. SKIN: No rashes. - Labs CBC & Chem 7: 09/17/18 06:03 09/14/18 07:06 Labs: Abnormal Lab Results - Last 24 Hours (Table) 09/17/18 09/17/18 09/17/18 Range/Units 06:03 07:02 07:53 RBC 2.47 L (3.80-5.40) m/uL Hgb 7.7 L (11.4-16.0) gm/dL Hct 22.8 L (34.0-46.0) % RDW 16.2 H (11.5-15.5) % Plt Count 64 L (150-450) k/uL Lymphocytes # 0.5 L (1.0-4.8) k/uL POC Glucose (mg/dL) 115 H (75-99) mg/dL Crossmatch See Detail Microbiology - Last 24 Hours (Table) 09/13/18 20:37 Blood Culture - Preliminary Blood No Growth after 72 hours Assessment and Plan Assessment: Acute intertrochanteric fracture of the left femur, she is a status post intramedullary nailing Acute blood loss anemia, status post one unit of blood transfusion Thrombocytopenia Severe osteoarthritis of the left knee. History of coronary artery disease status post stent placement Hyperlipidemia Hypertension History of thrombocytopenia. Right wrist chronic arthritis problem Plan: This is a pleasant 78 years old female who presents with left femur fracture secondary to fall. Status post intramedullary nailing. Hematology and cartilage team evaluated the patient. Patient with thrombocytopenia. Follow-up lytic a couple. No signs symptoms of bleeding. Continue same treatment. Continue with symptomatic treatment. Resume home medication. Monitor lytes and vitals. DVT and GI prophylaxis. Further recommendations of the clinical course of the patient DVT prophylaxis and pain management as per the primary team. Prognosis is guarded and daughter were at bedside and all their questions were answered to their satisfaction. thank you for consulting us, please feel free to contact us for any further question or clarification. We recommend patient follow up with her PCP in one week after discharge and with batcher operator within one to 2 weeks. Family they wanted to make their own appointments
[2018-09-17] MEDS: FERROUS SULFATE 325 MG TAB PO SCH (13:33)
[2018-09-17] MEDS: PRAVASTATIN SODIUM 40 MG TAB PO SCH (21:11)
[2018-09-18] MEDS: HYDROcodone/APAP 5-325MG 1 EACH TAB PO PRN ×5 (00:26→18:40)
[2018-09-18] MEDS: ISOSORBIDE MONONITRATE ER 60 MG TAB.ER.24H PO SCH (08:11)
[2018-09-18] MEDS: ASPIRIN 81 MG PO SCH (08:11)
[2018-09-18] MEDS: FERROUS SULFATE 325 MG TAB PO SCH (08:11)
[2018-09-18] MEDS: PANTOPRAZOLE 40 MG TABLET PO SCH (08:11)
[2018-09-18] MEDS: LISINOPRIL 10 MG TAB PO SCH (08:11)
[2018-09-18] MEDS: METOPROLOL TARTRATE 50 MG TAB PO SCH ×2 (08:11→20:19)
[2018-09-18 11:30] LABS: Appearance,Urine Clear (Clear); Bacteria,Urine Occasional /hpf; Bilirubin,Urine Negative (Negative); Blood,Urine Small (Negative); Color,Urine Yellow; Glucose,Urine (UA) Negative (Negative); Ketones,Urine Negative (Negative); Leukocyte Esterase,Urine Large (Negative); Mucus,Urine Rare /hpf; Nitrite,Urine Negative (Negative); Protein,Urine Negative (Negative); RBC,Urine 1 /hpf (0-5); WBC,Urine 21 /hpf (0-5)
[2018-09-18 11:56] LABS: Anisocytosis Slight; Basophils % (A) 0 %; Eosinophils # (A) 0.2 k/uL (0-0.7); Eosinophils % (A) 4 %; HCT 32.4 % (34.0-46.0); Hypochromasia Slight; Lymphocytes # (A) 0.8 k/uL (1.0-4.8); Lymphocytes % (A) 13 %; MCH 31.4 pg (25.0-35.0); MCHC 33.7 g/dL (31.0-37.0); MCV 93.1 fL (80.0-100.0); Mean Platelet Volume 8.8; Monocytes # (A) 0.3 k/uL (0-1.0); Monocytes % (A) 5 %; Neutrophils # (A) 4.6 k/uL (1.3-7.7); Neutrophils % (A) 77 %; Poikilocytosis Moderate; RBC 3.48 m/uL (3.80-5.40); RDW 16.5 % (11.5-15.5)
[2018-09-18 12:05] LABS: Platelet Count 84 k/uL (150-450)
[2018-09-18 12:06] LABS: HGB 10.9 gm/dL (11.4-16.0)
[2018-09-18 12:34] LABS: Albumin 2.5 g/dL (3.5-5.0); Calcium 8.4 mg/dL (8.4-10.2); Potassium 3.8 mmol/L (3.5-5.1); Total Bilirubin 2.3 mg/dL (0.2-1.3)
--- NOTE | 2018-09-18 12:43 | P.PN ---
Subjective Progress Note Date: 09/18/18 Principal diagnosis: Status post intramedullary nail left intertrochanteric femur fracture Patient evaluated at bedside today, she is resting comfortably, her daughter is present at bedside. Hemoglobin is much improved today his transfusion. She continues to work with therapy, urinary catheter still in place. Objective - Vital Signs Vital signs: Vital Signs Temp 98.2 F 09/18/18 07:42 Pulse 79 09/18/18 07:42 Resp 16 09/18/18 08:00 BP 147/65 09/18/18 07:42 Pulse Ox 98 09/18/18 07:42 Intake & Output 09/17/18 09/18/18 09/18/18 18:59 06:59 18:59 Intake Total 1172 100 Output Total 600 400 550 Balance 572 -300 -550 Intake: Oral 862 100 Blood Product 310 Rc As-1 Unit 310 [id number] Output: Urine 600 400 550 Uretheral (Hinds) 550 Other: Voiding Method Indwelling Catheter Indwelling Catheter Indwelling Catheter - Exam Left lower extremity: Bisi are in good position and condition. Minimal soft tissue swelling present around the leg, the compartments are soft. The calf is soft, no tenderness with palpation. Plantar flexion, dorsiflexion, EHL, FHL are intact. Dorsal pedis pulses 2+ - Labs CBC & Chem 7: 09/18/18 11:09 09/18/18 11:09 Labs: Abnormal Lab Results - Last 24 Hours (Table) 09/17/18 09/18/18 09/18/18 Range/Units 07:53 11:00 11:09 RBC 3.48 L (3.80-5.40) m/uL Hgb 10.9 L D (11.4-16.0) gm/dL Hct 32.4 L (34.0-46.0) % RDW 16.5 H (11.5-15.5) % Plt Count 84 L (150-450) k/uL Lymphocytes # 0.8 L (1.0-4.8) k/uL Chloride (98-107) mmol/L BUN (7-17) mg/dL Total Bilirubin (0.2-1.3) mg/dL AST (14-36) U/L Total Protein (6.3-8.2) g/dL Albumin (3.5-5.0) g/dL Urine Blood Small H (Negative) Ur Leukocyte Esterase Large H (Negative) Urine WBC 21 H (0-5) /hpf Urine Bacteria Occasional H (None) /hpf Urine Mucus Rare H (None) /hpf Crossmatch See Detail 09/18/18 Range/Units 11:09 RBC (3.80-5.40) m/uL Hgb (11.4-16.0) gm/dL Hct (34.0-46.0) % RDW (11.5-15.5) % Plt Count (150-450) k/uL Lymphocytes # (1.0-4.8) k/uL Chloride 109 H (98-107) mmol/L BUN 21 H (7-17) mg/dL Total Bilirubin 2.3 H (0.2-1.3) mg/dL AST 39 H (14-36) U/L Total Protein 5.0 L (6.3-8.2) g/dL Albumin 2.5 L (3.5-5.0) g/dL Urine Blood (Negative) Ur Leukocyte Esterase (Negative) Urine WBC (0-5) /hpf Urine Bacteria (None) /hpf Urine Mucus (None) /hpf Crossmatch Microbiology - Last 24 Hours (Table) 09/13/18 20:37 Blood Culture - Preliminary Blood No Growth after 96 hours Assessment and Plan Plan: Assessment: Postoperative day #3 status post IM nail left intertrochanteric femur fracture Acute blood loss anemia, expected surgical outcome Plan: Pain control, continue oral medication as needed GI and DVT prophylaxis, awaiting hematology recommendations for DVT prophylaxis Continue daily therapy Weight-bear as tolerated left lower extremity Encourage incentive spirometer I would imagine patient be discharged to rehab tomorrow pending placement availability Time with Patient: Less than 30
--- NOTE | 2018-09-18 13:57 | P.PN ---
Subjective Progress Note Date: 09/18/18 Principal diagnosis: Fall with fracture CBC stable today and improving Objective - Vital Signs Vital signs: Vital Signs Temp 98.2 F 09/18/18 07:42 Pulse 79 09/18/18 07:42 Resp 16 09/18/18 08:00 BP 147/65 09/18/18 07:42 Pulse Ox 98 09/18/18 07:42 Intake & Output 09/17/18 09/18/18 09/18/18 18:59 06:59 18:59 Intake Total 1172 100 Output Total 600 400 550 Balance 572 -300 -550 Intake: Oral 862 100 Blood Product 310 Rc As-1 Unit 310 [id number] Output: Urine 600 400 550 Uretheral (Hinds) 550 Other: Voiding Method Indwelling Catheter Indwelling Catheter Indwelling Catheter - Exam General: Alert and Oriented x3, No Acute Distress Head: Normocytic, Atraumatic Neck: Supple Mouth: No Lesions, No Thrush Eyes: Non-sclerotic No Palpable cervical, supraclavicular, axillary adenopathy Heart: Regular Rate, Regular Rhythm Lungs: Clear to Ausculations, No Wheeze, No Rhonchi, Diminishe bilateral lower lobes, No increased respiratory effort noted Abdomen: Soft, Non-Distended, Non-Tended, BSx4 Extremities: No Edema, Equal Strength Neurological: No Focal Defects: No sensory or motor deficits noted Psych: Calm and cooperative - Labs CBC & Chem 7: 09/18/18 11:09 09/18/18 11:09 Labs: Abnormal Lab Results - Last 24 Hours (Table) 09/17/18 09/18/18 09/18/18 Range/Units 07:53 11:00 11:09 RBC 3.48 L (3.80-5.40) m/uL Hgb 10.9 L D (11.4-16.0) gm/dL Hct 32.4 L (34.0-46.0) % RDW 16.5 H (11.5-15.5) % Plt Count 84 L (150-450) k/uL Lymphocytes # 0.8 L (1.0-4.8) k/uL Chloride (98-107) mmol/L BUN (7-17) mg/dL Total Bilirubin (0.2-1.3) mg/dL AST (14-36) U/L Total Protein (6.3-8.2) g/dL Albumin (3.5-5.0) g/dL Urine Blood Small H (Negative) Ur Leukocyte Esterase Large H (Negative) Urine WBC 21 H (0-5) /hpf Urine Bacteria Occasional H (None) /hpf Urine Mucus Rare H (None) /hpf Crossmatch See Detail 09/18/18 Range/Units 11:09 RBC (3.80-5.40) m/uL Hgb (11.4-16.0) gm/dL Hct (34.0-46.0) % RDW (11.5-15.5) % Plt Count (150-450) k/uL Lymphocytes # (1.0-4.8) k/uL Chloride 109 H (98-107) mmol/L BUN 21 H (7-17) mg/dL Total Bilirubin 2.3 H (0.2-1.3) mg/dL AST 39 H (14-36) U/L Total Protein 5.0 L (6.3-8.2) g/dL Albumin 2.5 L (3.5-5.0) g/dL Urine Blood (Negative) Ur Leukocyte Esterase (Negative) Urine WBC (0-5) /hpf Urine Bacteria (None) /hpf Urine Mucus (None) /hpf Crossmatch Microbiology - Last 24 Hours (Table) 09/13/18 20:37 Blood Culture - Preliminary Blood No Growth after 96 hours Assessment and Plan Plan: Assessment and Recommendations: 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 - Monitor coags with liver disease Fall from Standing requiring orthopedic intervention. Recommendation: - Post operative anticoaulation is still recommended siunce platlets greater tahn 50K, Eliquis 2.5mg po BID x4 weeks
[2018-09-18] MEDS: PRAVASTATIN SODIUM 40 MG TAB PO SCH (20:19)
--- NOTE | 2018-09-19 00:06 | P.PN ---
Progress Note - Text Progress Note Date: 09/18/18 Presenting complaint: Patient is status post IM nailing of the left IT fracture of the femur. Today- Pain is controlled. Does feel a bit tired. Did tolerate her diet. No fever no chills. Review of systems: Was done for constitutional, cardiovascular, GI, pulmonary. Musculoskeletal relevant finding as above Current medication reviewed that included: Aspirin, nitrates, Zestril, Lopressor, Protonix, Pravachol On examination: VITAL SIGNS: 98, 84, 15, 120/61, 96% room air GENERAL APPEARANCE: Laying in bed, comfortable. HEENT: Normal external appearance of nose and ear. Oral cavity normal EYES: Pupils equal. Conjunctiva normal. NECK: JVD not raised. Mass not palpable. RESPIRATORY: Respiratory effort normal. Lungs clear to auscultation. CARDIOVASCULAR: First and second sounds normal. No edema. ABDOMEN: Soft. Liver and spleen not palpable. No tenderness. No mass palpable. PSYCHIATRY: Alert and oriented x3. Mood and affect normal. Investigations: White count 6, hemoglobin 10.9, [place] 84, potassium 3.8, repeat 0.81 Assessment: -Left IT fracture of the femur followed by IM nailing -Chronic ITP -Coronary artery disease with History of stent -Essential hypertension -Hyperlipidemia -Acute postop blood loss anemia as expected from surgery. Patient did receive a unit of blood. Plan: Patient is medically stable. Continue current medication. Social work is looking into inpatient rehab. Thank you
[2018-09-19] MEDS: HYDROcodone/APAP 5-325MG 1 EACH TAB PO PRN ×3 (01:24→12:42)
--- NOTE | 2018-09-19 08:03 | P.PN ---
Subjective Progress Note Date: 09/19/18 Principal diagnosis: Status post intramedullary nail left intertrochanteric femur fracture Patient evaluated at bedside today, she is resting comfortably, her daughter is present at bedside. She continues to work with therapy, urinary catheter still in place. Objective - Vital Signs Vital signs: Vital Signs Temp 98.6 F 09/19/18 06:50 Pulse 93 09/19/18 06:50 Resp 16 09/19/18 06:50 BP 139/73 09/19/18 06:50 Pulse Ox 99 09/19/18 06:50 Intake & Output 09/18/18 09/19/18 09/19/18 18:59 06:59 18:59 Output Total 650 Balance -650 Output: Urine 650 Uretheral (Hinds) 550 Other: Voiding Method Bedside Commode Bedside Commode # Voids 1 - Exam Left lower extremity: Bisi are in good position and condition. Minimal soft tissue swelling present around the leg, the compartments are soft. The calf is soft, no tenderness with palpation. Plantar flexion, dorsiflexion, EHL, FHL are intact. Dorsal pedis pulses 2+ - Labs CBC & Chem 7: 09/18/18 11:09 09/18/18 11:09 Labs: Abnormal Lab Results - Last 24 Hours (Table) 09/18/18 09/18/18 09/18/18 Range/Units 11:00 11:09 11:09 RBC 3.48 L (3.80-5.40) m/uL Hgb 10.9 L D (11.4-16.0) gm/dL Hct 32.4 L (34.0-46.0) % RDW 16.5 H (11.5-15.5) % Plt Count 84 L (150-450) k/uL Lymphocytes # 0.8 L (1.0-4.8) k/uL Chloride 109 H (98-107) mmol/L BUN 21 H (7-17) mg/dL Total Bilirubin 2.3 H (0.2-1.3) mg/dL AST 39 H (14-36) U/L Total Protein 5.0 L (6.3-8.2) g/dL Albumin 2.5 L (3.5-5.0) g/dL Urine Blood Small H (Negative) Ur Leukocyte Esterase Large H (Negative) Urine WBC 21 H (0-5) /hpf Urine Bacteria Occasional H (None) /hpf Urine Mucus Rare H (None) /hpf Microbiology - Last 24 Hours (Table) 09/13/18 20:37 Blood Culture - Preliminary Blood No Growth after 120 hours 09/18/18 11:00 Urine Culture - Preliminary Urine,Catheterized Assessment and Plan Plan: Assessment: Postoperative day #4 status post IM nail left intertrochanteric femur fracture Acute blood loss anemia, expected surgical outcome Plan: Pain control, plan for dc on oral medication GI and DVT prophylaxis, Eliquis 2.5mg bid for 1 month Continue daily therapy Weight-bear as tolerated left lower extremity Encourage incentive spirometer Plan for dc to rehab today Time with Patient: Less than 30
--- NOTE | 2018-09-19 08:07 | P.DS ---
Providers Date of admission: 09/13/18 00:22 Expected date of discharge: 09/19/18 Attending physician: Raymond Dozier Consults: 09/12/18 22:25 Consult Physician Urgent Consulting Provider: Gregorio Erickson Consult Reason/Comments: Surgical clearance Do you want consulting provider notified?: Yes Consult Physician Urgent Consulting Provider: Rikki Mcclain Consult Reason/Comments: Surgical clearance, medical management Do you want consulting provider notified?: Yes 09/13/18 06:26 Consult Physician Urgent Consulting Provider: Henrique Kan Consult Reason/Comments: low platelets Do you want consulting provider notified?: Yes, Notify in am Primary care physician: Isabel Conway [facility] Course: Date of admission: 09/12/2018 Date of discharge: 09/19/2018 Admission diagnosis: Minimally displaced left intertrochanteric femur fracture Discharge diagnosis: Status post intramedullary nail left intertrochanteric femur fracture Attending physician: Dr. Dozier Surgical procedures: Intramedullary nailing left intertrochanteric femur fracture Brief history: Patient is a 78-year who presented to [facility] on 09/12/2018 after sustaining a fall. It was determined patient had a left intertrochanteric femur fracture, she was admitted under orthopedic care with plan for surgical intervention. Proper medical consults were placed. She underwent surgery on 09/15/2018. Hospital course: Details of patient's surgery can be found in operative report. Patient tolerated the procedure well and was subsequently transported to orthopedic floor. Patient's orthopeidc and medical care was provided daily. Patient had daily laboratory tests performed for evaluation of overall blood counts. Patient had daily physical therapy to include strengthening range of motion as well as education with walker ambulation. Patient was noted to have a relatively uneventful postoperative course. Patient reported satisfactory pain control with oral pain medications by postoperative day 0. Patient showed satisfactory progress with physical therapy. Patient moved steadily through the program and had no difficulty meeting the goals by postoperative day 4. Given patient's otherwise satisfactory course and having met physical therapy goals, plan is to discharge patient rehab on postoperative day 4. Discharge condition/disposition: Patient will be discharged rehab in stable condition. Discharge medications: Instructions are given on resumption of patient's normal daily medications per primary care recommendation, in addition patient will be prescribed [place] 5 mg/325 mg, Eliquis 2.5mg. Discharge instructions: 1. Wound care and infection precautions, keep incision dry and covered while showering, no lotions, creams, moisturizers. No soaking, tubs, pools, hottubs. Do not scrub over the incision. 2. Weight-bear as tolerated with walker / cane until follow-up. 3. Ice and elevate when necessary. Do not exceed 20 minutes per hour with ice pack. 4. Utilize compression sleeve until seen at first follow up appointment. 5. Visiting nursing care. 6. Home physical therapy. 7. Pain meds and anticoagulants per prescription. 8. Pain medication has potential to cause constipation. Increase oral fluid and fiber intake. Contact primary care provider if you have not had a bowel movement within 48 hours after discharge 9. No anti-inflammatory medication until discussed at first post operative visit, this including Motrin, Aleve, Mobic, Diclofenac. 10. Follow up in office at 2 weeks postop with Ty Rivera PA-C 11. Follow up with your primary care doctor 7-10 days after discharge. 12. Contact [facility] with any questions, . Procedures: Intramedullary nail left intertrochanteric femur fracture Patient Condition at Discharge: Fair Plan - Discharge Summary Discharge Rx Participant: Yes New Discharge Prescriptions: New Apixaban [Eliquis] 2.5 mg PO BID #60 tab Hydrocodone/Acetaminophen [[place] 5-325] 1 each PO Q6HR PRN #28 tab PRN Reason: Pain No Action Metoprolol Tartrate [Lopressor] 50 mg PO BID Lisinopril [Prinivil] 10 mg PO DAILY Isosorbide Mononitrate ER [Imdur] 60 mg PO DAILY Pravastatin Sodium [Pravachol] 40 mg PO HS Aspirin EC [Ecotrin Low Dose] 81 mg PO DAILY Discharge Medication List Lisinopril [Prinivil] 10 mg PO DAILY 03/09/15 [History] Metoprolol Tartrate [Lopressor] 50 mg PO BID 03/09/15 [History] Isosorbide Mononitrate ER [Imdur] 60 mg PO DAILY 10/30/15 [History] Aspirin EC [Ecotrin Low Dose] 81 mg PO DAILY 09/12/18 [History] Pravastatin Sodium [Pravachol] 40 mg PO HS 09/12/18 [History] Apixaban [Eliquis] 2.5 mg PO BID #60 tab 09/18/18 [Rx] Hydrocodone/Acetaminophen [[place] 5-325] 1 each PO Q6HR PRN #28 tab 09/19/18 [Rx] Follow up Appointment(s)/Referral(s): Cayden Eli MD [STAFF PHYSICIAN] - 2 Weeks Isabel Conway DO [Primary Care Provider] - 1-2 days Ton Rivera PAC [PHYSICIAN [employer] EXECUTIVE] - 1 Week Activity/Diet/Wound Care/Special Instructions: Orthopedic Discharge Instructions: 1. Wound care and infection precautions, keep incision dry and covered while showering, no lotions, creams, moisturizers. No soaking, pools, hot tubs. Do not scrub over incision. 2. Weight-bear as tolerated with walker / cane until follow-up. 3. Ice and elevate when necessary. Do not exceed 20 minutes per hour with ice pack. 4. Utilize compression sleeve until seen at first follow up appointment. 5. Pain meds and anticoagulants per prescription. 6. Pain medication has potential to cause constipation. Increase oral fluid and fiber intake. Contact primary care provider if you have not had a bowel movement within 48 hours after discharge. 7. No anti-inflammatory medication until discussed at first post operative visit, this including Motrin, Aleve, Mobic, Diclofenac. 8. Follow up in office at 2 weeks postop with Ty Rivera PA-C 9. Follow up with your primary care doctor 7-10 days after discharge. 10. Contact [facility] with any questions, . Discharge Disposition: TRANSFER TO SNF/ECF
[2018-09-19] MEDS: LISINOPRIL 10 MG TAB PO SCH (08:37)
[2018-09-19] MEDS: ASPIRIN 81 MG PO SCH (08:37)
[2018-09-19] MEDS: ISOSORBIDE MONONITRATE ER 60 MG TAB.ER.24H PO SCH (08:37)
[2018-09-19] MEDS: PANTOPRAZOLE 40 MG TABLET PO SCH (08:37)
[2018-09-19] MEDS: METOPROLOL TARTRATE 50 MG TAB PO SCH (08:37)
[2018-09-19] MEDS ORDERED: diphenhydrAMINE 50 MG/ML 1 ML VIAL IVP STA (12:01)
[2018-09-19] MEDS: FERROUS SULFATE 325 MG TAB PO SCH (12:42)
[2018-09-19 14:30] VITALS: BP 102/65; PULSE 70; RESP 20; TEMP 98.2
== END 2018-09-19 15:09 | DRG 481 ==
LOC: EC 21:08 → 4SSUR 09-13 00:22 → 4MS4W 09-18 15:12
PROVIDERS: ADMIT Orthopaedic Surgery; ATTEND Orthopaedic Surgery
PROC: 0QS706Z Reposition Left Upper Femur with Intramedullary Internal Fixation Device, Open Approach (ICD-10-PCS; principal; 2018-09-15 07:30)
DX: S72.142A Displaced intertrochanteric fracture of left femur, initial encounter for closed fracture (principal); D62 Acute posthemorrhagic anemia; D69.3 Immune thrombocytopenic purpura; W01.0XXA Fall on same level from slipping, tripping and stumbling without subsequent striking against object, initial encounter; Y92.007 Garden or yard of unspecified non-institutional (private) residence as the place of occurrence of the external cause; E53.8 Deficiency of other specified B group vitamins; E78.5 Hyperlipidemia, unspecified; F17.210 Nicotine dependence, cigarettes, uncomplicated; I10 Essential (primary) hypertension; I25.10 Atherosclerotic heart disease of native coronary artery without angina pectoris; I25.2 Old myocardial infarction; I25.5 Ischemic cardiomyopathy; I08.8 Other rheumatic multiple valve diseases; I44.7 Left bundle-branch block, unspecified; M11.20 Other chondrocalcinosis, unspecified site; M17.12 Unilateral primary osteoarthritis, left knee; M19.031 Primary osteoarthritis, right wrist; Z79.82 Long term (current) use of aspirin; Z79.899 Other long term (current) drug therapy; Z80.3 Family history of malignant neoplasm of breast; Z82.49 Family history of ischemic heart disease and other diseases of the circulatory system; Z90.710 Acquired absence of both cervix and uterus; Z95.5 Presence of coronary angioplasty implant and graft; Z88.1 Allergy status to other antibiotic agents; Z88.5 Allergy status to narcotic agent; Z88.0 Allergy status to penicillin; Z88.8 Allergy status to other drugs, medicaments and biological substances
CPT/HCPCS: 36415; 64447; 71045; 72170; 73501; 80053; 81001; 81003; 85025; 85610; 85730; 86850; 86900; 86901; 86920; 87040; 87077; 87086; 87186; 93005; 93306; 96374; 96375; 99285

== ENCOUNTER 2018-11-01 18:45 | Inpatient (IN) | payer MEDICARE ==
--- NOTE | 2018-11-01 19:11 | ED ---
General Adult HPI - General Chief complaint: Fall Stated complaint: Femur Fracture Time Seen by Provider: 11/01/18 18:51 Source: patient, EMS Mode of arrival: EMS Limitations: no limitations - History of Present Illness Initial comments: 78-year-old female patient presents to the emergency department today for evaluation of left upper leg pain. Patient states she was standing there when she felt her leg give out. The patient states she did fall. She did strike her head on her walker but denies any loss of consciousness or current headache. Patient is complaining of pain to the left mid thigh. There is shortening and rotation of the leg. She was brought in by ambulance, she does have traction splint applied to the leg. States this does improve her pain. Denies any numbness or tingling to the leg. Denies any neck or back pain. Patient denies any headache, chest pain, shortness of breath, dizziness, weakness, abdominal pain, nausea, vomiting, or difficulties with bowel movements or urination. Patient did have recent IM nailing of the left hip on 09/15/[address] Dozier. She did receive 200 g of fentanyl in the ambulance, states she is currently pain-free. - Related Data Home Medications Medication Instructions Recorded Confirmed Lisinopril [Prinivil] 10 mg PO DAILY 03/09/15 11/01/18 Metoprolol Tartrate [Lopressor] 50 mg PO BID 03/09/15 11/01/18 Isosorbide Mononitrate ER [Imdur] 60 mg PO DAILY 10/30/15 11/01/18 Aspirin EC [Ecotrin Low Dose] 81 mg PO DAILY 09/12/18 11/01/18 Pravastatin Sodium [Pravachol] 40 mg PO HS 09/12/18 11/01/18 Hydrocodone/Acetaminophen [[place] 1 tab PO Q6HR PRN 11/01/18 11/01/18 5-325] diphenhydrAMINE [Benadryl] 25 mg PO QID PRN 11/01/18 11/01/18 Previous Rx's Medication Instructions Recorded Ferrous Sulfate [Iron (65 MG 325 mg PO W/LUNCH tab 09/19/18 Elemental)] Allergies Allergy/AdvReac Type Severity Reaction Status Date / Time cephalexin monohydrate Allergy Rash/Hives/ Verified 11/01/18 19:17 [From Keflex] Swelling codeine Allergy Unknown Verified 11/01/18 19:17 meperidine HCl [From Demerol] Allergy Rash/Hives Verified 11/01/18 19:17 Penicillins Allergy Swelling Verified 11/01/18 19:17 pentazocine lactate Allergy Rash/Hives-Stomach Verified 11/01/18 19:17 [From Talwin] Upset propoxyphene napsylate Allergy Rash/Hives- Verified 11/01/18 19:17 [From Darvocet-N] Itch Review of Systems ROS Statement: Those systems with pertinent positive or pertinent negative responses have been documented in the HPI. ROS Other: All systems not noted in ROS Statement are negative. Past Medical History Past Medical History: Blood Disorder, Coronary Artery Disease (CAD), Hyperlipidemia, Hypertension, Myocardial Infarction ([place]) Additional Past Medical History / Comment(s): Thrombocytopenia-sees Dr. Kan. 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, 11-28-15 ercp, left hip repair with rods 09-15-2018 Past Anesthesia/Blood Transfusion Reactions: No Reported Reaction Date of Last Stent Placement:: 1998 Past Psychological History: No Psychological Hx Reported Smoking Status: Current some day smoker Past Alcohol Use History: None Reported Past Drug Use History: None Reported - Past Family History Mother Family Medical History: Cancer Additional Family Medical History / Comment(s): Breast Ca Father Family Medical History: Myocardial Infarction ([place]) Additional Family Medical History / Comment(s): @ age 86 from [place] General Exam Limitations: no limitations General appearance: alert, in no apparent distress, other (This is a well- developed, well-nourished elderly female patient in no acute distress. Vital signs upon presentation are temperature 98.2F, pulse 62, respirations 16, blood pressure 141/55, pulse ox 98% on room air.) Eye exam: Present: normal appearance, PERRL, EOMI. Absent: scleral icterus, conjunctival injection, periorbital swelling ENT exam: Present: normal exam, normal oropharynx, mucous membranes moist Neck exam: Present: normal inspection, full ROM, other (Nontender, no step-off, no deformity to firm midline palpation of the posterior cervical spine. Full range of motion without pain or limitation.). Absent: tenderness, meningismus, lymphadenopathy Respiratory exam: Present: normal lung sounds bilaterally. Absent: respiratory distress, wheezes, rales, rhonchi, stridor Cardiovascular Exam: Present: regular rate, normal rhythm, normal heart sounds. Absent: systolic murmur, diastolic murmur, rubs, gallop, clicks GI/Abdominal exam: Present: soft, normal bowel sounds. Absent: distended, tenderness, guarding, rebound, rigid Extremities exam: Present: full ROM, tenderness (Left mid thigh), normal capillary refill, other (There is shortening and rotation noted of the left lower extremity. Skin to the extremity is pink, warm, dry. Cap refills less than 3 seconds. Pedal and posttibial pulses are 2+ and equal bilaterally.). Absent: normal inspection, pedal edema, joint swelling, calf tenderness Back exam: Present: normal inspection, other (Nontender, no step-off, no deformity to firm midline palpation of the thoracic and lumbar vertebrae. Full range of motion without pain or limitation.). Absent: vertebral tenderness Neurological exam: Present: alert, oriented X3, CN II-XII intact Psychiatric exam: Present: normal affect, normal mood Skin exam: Present: warm, dry, intact, normal color. Absent: rash Course Vital Signs 11/01/18 11/01/18 18:53 20:26 Temperature 98.2 F 98 F Pulse Rate 62 92 Respiratory 16 18 Rate Blood Pressure 141/55 139/51 O2 Sat by Pulse 98 98 Oximetry EKG Findings - EKG Comments: EKG Findings:: EKG obtained at 2010 shows normal sinus rhythm with a left axis deviation and left bundle branch block. Ventricular rate is 87, VT interval 162, QRS duration 152, QT 420, QTC 505. Medical Decision Making - Medical Decision Making 78-year-old female patient presented to the emergency department today for evaluation of left mid thigh pain. Physical examination did reveal to 40 to the left mid thigh with soft tissue swelling. Neurovascular status is intact with good pedal posttibial pulse. X-ray was obtained and did show a midshaft femur fracture at the site of her prosthetic. I did discuss the case with Ty Rivera PA-c for Dr. Dozier. He accepts admission. Consult medicine, cardiology, and hematology. NPO at midnight. Pain management has been provided. - Lab Data Result diagrams: 11/01/18 20:18 11/01/18 20:18 Lab Results 11/01/18 11/01/18 11/01/18 Range/Units 20:18 20:18 20:18 WBC 4.0 (3.8-10.6) k/uL RBC 4.00 (3.80-5.40) m/uL Hgb 12.4 (11.4-16.0) gm/dL Hct 36.7 (34.0-46.0) % MCV 91.7 D (80.0-100.0) fL MCH 31.0 (25.0-35.0) pg MCHC 33.8 (31.0-37.0) g/dL RDW 15.3 (11.5-15.5) % Plt Count 54 L (150-450) k/uL Neutrophils % 74 % Lymphocytes % 13 % Monocytes % 9 % Eosinophils % 2 % Basophils % 0 % Neutrophils # 3.0 (1.3-7.7) k/uL Lymphocytes # 0.5 L (1.0-4.8) k/uL Monocytes # 0.4 (0-1.0) k/uL Eosinophils # 0.1 (0-0.7) k/uL Basophils # 0.0 (0-0.2) k/uL Manual Slide Review Performed Poikilocytosis Slight PT 12.5 H (9.0-12.0) sec INR 1.2 H (<1.2) APTT 27.0 (22.0-30.0) sec Sodium 138 (137-145) mmol/L Potassium 4.3 (3.5-5.1) mmol/L Chloride 109 H (98-107) mmol/L Carbon Dioxide 26 (22-30) mmol/L Anion Gap 3 mmol/L BUN 15 (7-17) mg/dL Creatinine 0.54 (0.52-1.04) mg/dL Est GFR (CKD-EPI)AfAm >90 (>60 ml/min/1.73 sqM) Est GFR (CKD-EPI)NonAf >90 (>60 ml/min/1.73 sqM) Glucose 90 (74-99) mg/dL Calcium 8.9 (8.4-10.2) mg/dL Total Bilirubin 1.5 H (0.2-1.3) mg/dL AST 32 (14-36) U/L ALT 23 (9-52) U/L Alkaline Phosphatase 128 H (38-126) U/L Total Protein 5.9 L (6.3-8.2) g/dL Albumin 2.9 L (3.5-5.0) g/dL - Radiology Data Radiology results: report reviewed, image reviewed Two-view x-ray of the left femur was obtained. Report was reviewed in its entirety. Impression by Dr. Guardado shows displaced fracture of the mid left femoral diaphysis along the distal aspect of the intramedullary mattie. Lucency along the greater trochanter along the proximal aspect of the intramedullary mattie. This may be related to postoperative changes versus fractures. Please correlate prior exams. 3 views of left hip with pelvis is obtained. Report was reviewed in its entirety. Impression by Dr. Guardado shows displaced fracture of the left mid femoral diaphysis along the distal aspect of the intramedullary mattie partially visualized. Lucency along the greater trochanter along the proximal aspect of the intramedullary mattie. This may be related to postop change versus fractures. One view of the chest is obtained. Report reviewed in its entirety. Impression by Dr. Guardado shows no acute disease identified. Disposition Clinical Impression: Left femoral shaft fracture Disposition: ADMITTED IP TO THIS [facility] Condition: Serious Decision to Admit Reason: Admit from EC Decision Date: 11/01/18 Decision Time: 21:37
[2018-11-01] MEDS ORDERED: HYDROmorphone 0.5 MG/0.5 ML SYRINGE IVP STA (20:14)
[2018-11-01 20:34] LABS: INR 1.2 (<1.2); Prothrombin Time 12.5 sec (9.0-12.0)
[2018-11-01 20:35] LABS: Basophils % (A) 0 %; Eosinophils # (A) 0.1 k/uL (0-0.7); Eosinophils % (A) 2 %; HCT 36.7 % (34.0-46.0); HGB 12.4 gm/dL (11.4-16.0); Lymphocytes # (A) 0.5 k/uL (1.0-4.8); Lymphocytes % (A) 13 %; MCHC 33.8 g/dL (31.0-37.0); Mean Platelet Volume 9.2; Monocytes # (A) 0.4 k/uL (0-1.0); Monocytes % (A) 9 %; Neutrophils % (A) 74 %; Poikilocytosis Slight; RDW 15.3 % (11.5-15.5)
[2018-11-01 20:37] LABS: MCV 91.7 fL (80.0-100.0)
[2018-11-01 20:39] LABS: ALT 23 U/L (9-52); AST 32 U/L (14-36); African American GFR (CKD) >90 (>60 ml/min/1.73 sqM); Albumin 2.9 g/dL (3.5-5.0); Alkaline Phosphatase 128 U/L (38-126); Anion Gap 3 mmol/L; Blood Urea Nitrogen 15 mg/dL (7-17); Calcium 8.9 mg/dL (8.4-10.2); Carbon Dioxide 26 mmol/L (22-30); Chloride 109 mmol/L (98-107); Glucose 90 mg/dL (74-99); Potassium 4.3 mmol/L (3.5-5.1); Sodium 138 mmol/L (137-145); Total Bilirubin 1.5 mg/dL (0.2-1.3); Total Protein 5.9 g/dL (6.3-8.2)
[2018-11-01 20:54] LABS: Platelet Count 54 k/uL (150-450)
[2018-11-01] MEDS ORDERED: SODIUM CHLORIDE 0.9% 1,000 ML IV SCH (21:30)
[2018-11-01] MEDS ORDERED: NALOXONE 0.4 MG/ML 1 ML VIAL IV PRN (21:30)
--- NOTE | 2018-11-01 21:48 | XR ---
EXAM: XR Left Hip With Pelvis When Performed, 2 or 3 Views CLINICAL HISTORY: ITS.REASON XR Reason: Pain TECHNIQUE: Two or three views of the left hip, with pelvis when performed. COMPARISON: None available FINDINGS: Bones/joints: Displaced fracture of the mid left femoral diaphysis along the distal aspect of the intramedullary mattie partially visualized. Intramedullary mattie and screw fixation of the left femur. Lucency along the greater trochanter along the proximal aspect of the intramedullary mattie. This may be related to postoperative change versus fractures. Osteopenia. Degenerative changes of the hips. Degenerative changes of the visualized lower lumbar spine. Soft tissues: Normal. IMPRESSION: Displaced fracture of the mid left femoral diaphysis along the distal aspect of the intramedullary mattie partially visualized. Lucency along the greater trochanter along the proximal aspect of the intramedullary mattie. This may be related to postoperative change versus fractures. Please correlate with prior exams of available. Further evaluation could be performed with CT or MRI if clinically indicated.
--- NOTE | 2018-11-01 21:50 | XR ---
EXAM: XR Left Femur, 2 Views CLINICAL HISTORY: ITS.REASON XR Reason: Pain TECHNIQUE: Frontal and lateral views of the left femur. COMPARISON: None available FINDINGS: Bones/joints: Displaced fracture of the mid left femoral diaphysis along the distal aspect of the intramedullary mattie. Intramedullary mattie and screw fixation of the left femur. Lucency along the greater trochanter along the proximal aspect of the intramedullary mattie. This may be related to postoperative change versus fractures. Osteopenia. Degenerative changes of the left knee and left hip . Soft tissues: Soft tissue swelling. IMPRESSION: Displaced fracture of the mid left femoral diaphysis along the distal aspect of the intramedullary mattie. Lucency along the greater trochanter along the proximal aspect of the intramedullary mattie. This may be related to postoperative change versus fractures. Please correlate with prior exams of available. Further evaluation could be performed with CT or MRI if clinically indicated.
--- NOTE | 2018-11-01 22:03 | XR ---
EXAM: XR Chest, 1 View CLINICAL HISTORY: ITS.REASON XR Reason: Pain TECHNIQUE: Frontal view of the chest. COMPARISON: Chest radiograph on 09/12/2018 FINDINGS: Hardware: None. Lungs/pleura: Normal. No focal consolidation. No pleural effusion or pneumothorax. Heart/mediastinum: Normal. No cardiomegaly. Soft tissues: Small metallic density in the right axillary soft tissues. Bones: No acute fracture. Degenerative changes of the acromioclavicular joints and spine. Upper abdomen: Normal. IMPRESSION: No acute disease identified.
[2018-11-01] MEDS: HYDROmorphone 0.5 MG/0.5 ML SYRINGE IVP PRN (23:24)
--- NOTE | 2018-11-02 01:07 | P.CONS ---
History of Present Illness - Reason for Consult Consult date: 11/02/18 - History of Present Illness Patient is a 78-year-old female with a PMH of recent femoral fracture status post repair (09/15/18), coronary artery disease, ischemic cardiopathy with last EF 40%, hypertension, hyperlipidemia, chemotherapy, and tobacco abuse who presented to the ED after a fall at home. The patient states that she was in her usual state of health and was standing at the sink when she turned and felt a snap in her left hip and suddenly fell to the ground. She immediately felt sudden and severe pain in the left hip which was accompanied by swelling. Her family activated EMS and the patient was brought to the ED. At time of interview, the patient states that her pain is a 5 out of 10 with no radiation. She denied pain elsewhere any additional complaints. She denied chest pain, shortness of breath, nausea, vomiting, diaphoresis. She also denied fever, chills, cough, or diarrhea. The patient underwent an extensive evaluation in the emergency room with femur x-ray showing displaced fracture of the mid left femoral diaphysis along the distal aspect of the intramedullary mattie. CXR was unremarkable. EKG showed normal sinus rhythm at 87 bpm with a left bundle branch block, unchanged from prior. Laboratory evaluation revealed WBC count of 4, hemoglobin 12.4, platelets 54, sodium 138, potassium 4.3, BUN 15, and creatinine 0.54. The patient was admitted to the surgery service for an acute fracture with medicine consult. Review of Systems Pertinent positives and negatives as discussed in HPI, a complete review of systems was performed and all other systems are negative. 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, 11-28-15 ercp, left hip repair with rods 09-15-2018 Past Anesthesia/Blood Transfusion Reactions: No Reported Reaction Date of Last Stent Placement:: 1998 Past Psychological History: No Psychological Hx Reported Smoking Status: Current some day smoker Past Alcohol Use History: None Reported Additional Past Alcohol Use History / Comment(s): smokes maybe weekly- 1-2 cigarettes- had smoked and quit for 12 yrs and started up about 5 yrs ago again Past Drug Use History: None Reported - Past Family History Mother Family Medical History: Cancer Additional Family Medical History / Comment(s): Breast Ca Father Family Medical History: Myocardial Infarction ([place]) Additional Family Medical History / Comment(s): @ age 86 from [place] Medications and Allergies Home Medications Medication Instructions Recorded Confirmed Type Lisinopril [Prinivil] 10 mg PO DAILY 03/09/15 11/01/18 History Metoprolol Tartrate [Lopressor] 50 mg PO BID 03/09/15 11/01/18 History Isosorbide Mononitrate ER [Imdur] 60 mg PO DAILY 10/30/15 11/01/18 History Aspirin EC [Ecotrin Low Dose] 81 mg PO DAILY 09/12/18 11/01/18 History Pravastatin Sodium [Pravachol] 40 mg PO HS 09/12/18 11/01/18 History Ferrous Sulfate [Iron (65 MG 325 mg PO W/LUNCH tab 09/19/18 11/01/18 Rx Elemental)] Hydrocodone/Acetaminophen [[place] 1 tab PO Q6HR PRN 11/01/18 11/01/18 History 5-325] diphenhydrAMINE [Benadryl] 25 mg PO QID PRN 11/01/18 11/01/18 History Allergies Allergy/AdvReac Type Severity Reaction Status Date / Time cephalexin monohydrate Allergy Rash/Hives/ Verified 11/01/18 19:17 [From Keflex] Swelling codeine Allergy Unknown Verified 11/01/18 19:17 meperidine HCl [From Demerol] Allergy Rash/Hives Verified 11/01/18 19:17 Penicillins Allergy Swelling Verified 11/01/18 19:17 pentazocine lactate Allergy Rash/Hives-Stomach Verified 11/01/18 19:17 [From Talwin] Upset propoxyphene napsylate Allergy Rash/Hives- Verified 11/01/18 19:17 [From Darvocet-N] Itch Physical Exam Vitals: Vital Signs Temp Pulse Pulse Resp BP BP Pulse Ox 11/01/18 22:42 98.4 F 79 18 155/66 97 11/01/18 22:05 98 F 72 18 125/50 99 11/01/18 20:26 98 F 92 18 139/51 98 11/01/18 18:53 98.2 F 62 16 141/55 98 Intake and Output 11/01/18 11/01/18 11/02/18 14:59 22:59 06:59 Other: Weight 61.235 kg General: non toxic, in mild distress, appears at stated age, normal weight Derm: no unusual rashes/lesions no unusual ecchymoses, warm, dry Head: atraumatic, normocephalic, symmetric Eyes: EOMI, no lid lag, anicteric sclera, pupils equal round reactive to light ENT: Nose and ears atraumatic, no thrush, no pharyngeal erythema Neck: No thyromegaly, no cervical lymphadenopathy, trachea midline, supple Mouth: no lip lesion, mucus membranes moist Cardiovascular: S1S2 reg, no murmur, positive posterior tibial pulse bilateral, no edema, capillary refill less than 2 seconds Lungs: CTA bilateral, no rhonchi, no rales , no accessory muscle use Abdominal: soft, nontender to palpation, no guarding, no appreciable organomegaly, normal bowel sounds Ext: LLE w/ brace, edema of L hip w/ tenderness noted Neuro: CN II-XI grossly intact, light touch intact all 4 extremities, finger to nose within normal limits, Psych: Alert, oriented, appropriate affect Results CBC & Chem 7: 11/01/18 20:18 11/01/18 20:18 Labs: Abnormal Lab Results - Last 24 Hours (Table) 11/01/18 11/01/18 11/01/18 Range/Units 20:18 20:18 20:18 Plt Count 54 L (150-450) k/uL Lymphocytes # 0.5 L (1.0-4.8) k/uL PT 12.5 H (9.0-12.0) sec INR 1.2 H (<1.2) Chloride 109 H (98-107) mmol/L Total Bilirubin 1.5 H (0.2-1.3) mg/dL Alkaline Phosphatase 128 H (38-126) U/L Total Protein 5.9 L (6.3-8.2) g/dL Albumin 2.9 L (3.5-5.0) g/dL Assessment and Plan Plan: Acute traumatic L femoral fracture -As per orthopedic surgery Pain control -Continue with Dilaudid and morphine Thrombocytopenia -Hematology consulted -Platelets currently 54 -Monitor CBC Coronary artery disease with systolic CHF -Cardiology consulted for preop clearance -Currently euvolemic -Judicious use of IV fluids Hypertension, hyperlipidemia, coronary artery disease -Continue with home meds The patient is intermediate-high risk for an intermediate risk surgery, though with no absolute contraindications, pending cardiology and hematology evaluation. DVT prophylaxis -As per orthopedic surgery
[2018-11-02] MEDS: HYDROmorphone 0.5 MG/0.5 ML SYRINGE IVP PRN ×2 (02:16→05:45)
[2018-11-02] MEDS: ISOSORBIDE MONONITRATE ER 60 MG TAB.ER.24H PO SCH (08:18)
[2018-11-02] MEDS: METOPROLOL TARTRATE 50 MG TAB PO SCH ×3 (08:18→22:01)
[2018-11-02] MEDS: LISINOPRIL 10 MG TAB PO SCH (08:18)
[2018-11-02] MEDS: ASPIRIN 81 MG PO SCH (08:18)
--- NOTE | 2018-11-02 08:39 | P.HPOR ---
History of Present Illness H&P Date: 11/02/18 Chief Complaint: Left femoral shaft fracture Patient is a 78-year-old female who presented to [facility] yesterday evening after injuring her left lower extremity. Patient was apparently at the sink in her bathroom, she turned and felt a crack in her left lower extremity, she had immediate pain and then went down to the ground. There is obvious deformity present. Family contacted EMS, she was placed in a traction unit. She is brought to [facility] for further evaluation. Images demonstrated a displaced midshaft femur fracture on the left side, just distal to the intramedullary mattie. Patient had a intramedullary mattie placed on 09/15/2018 for a left intertrochanteric hip fracture. Patient has apparently been doing very well, ambulating with no difficulties. Patient denies any recent trauma. [facility], her family is present at bedside. She notes significant discomfort throughout the left lower extremity. She has no other orthopedic complaints at this time. Currently she denies any chest pain or shortness of breath. Review of Systems Constitutional: Reports as per HPI Past Medical History Past Medical History: Blood Disorder, Coronary Artery Disease (CAD), Hyperlipidemia, Hypertension, Myocardial Infarction ([place]) Additional Past Medical History / Comment(s): Thrombocytopenia-sees Dr. Kan. 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, 11-28-15 ercp, left hip repair with rods 09-15-2018 Past Anesthesia/Blood Transfusion Reactions: No Reported Reaction Date of Last Stent Placement:: 1998 Past Psychological History: No Psychological Hx Reported Smoking Status: Current some day smoker Past Alcohol Use History: None Reported Additional Past Alcohol Use History / Comment(s): smokes maybe weekly- 1-2 cigarettes- had smoked and quit for 12 yrs and started up about 5 yrs ago again Past Drug Use History: None Reported - Past Family History Mother Family Medical History: Cancer Additional Family Medical History / Comment(s): Breast Ca Father Family Medical History: Myocardial Infarction ([place]) Additional Family Medical History / Comment(s): @ age 86 from [place] Medications and Allergies Home Medications Medication Instructions Recorded Confirmed Type Lisinopril [Prinivil] 10 mg PO DAILY 03/09/15 11/01/18 History Metoprolol Tartrate [Lopressor] 50 mg PO BID 03/09/15 11/01/18 History Isosorbide Mononitrate ER [Imdur] 60 mg PO DAILY 10/30/15 11/01/18 History Aspirin EC [Ecotrin Low Dose] 81 mg PO DAILY 09/12/18 11/01/18 History Pravastatin Sodium [Pravachol] 40 mg PO HS 09/12/18 11/01/18 History Ferrous Sulfate [Iron (65 MG 325 mg PO W/LUNCH tab 09/19/18 11/01/18 Rx Elemental)] Hydrocodone/Acetaminophen [[place] 1 tab PO Q6HR PRN 11/01/18 11/01/18 History 5-325] diphenhydrAMINE [Benadryl] 25 mg PO QID PRN 11/01/18 11/01/18 History Allergies Allergy/AdvReac Type Severity Reaction Status Date / Time cephalexin monohydrate Allergy Rash/Hives/ Verified 11/01/18 19:17 [From Keflex] Swelling codeine Allergy Unknown Verified 11/01/18 19:17 meperidine HCl [From Demerol] Allergy Rash/Hives Verified 11/01/18 19:17 Penicillins Allergy Swelling Verified 11/01/18 19:17 pentazocine lactate Allergy Rash/Hives-Stomach Verified 11/01/18 19:17 [From Talwin] Upset propoxyphene napsylate Allergy Rash/Hives- Verified 11/01/18 19:17 [From Darvocet-N] Itch Physical Examination Left lower extremity: No open lesions or sores present throughout the extremity Obvious shortening Rotation of the leg compared to contralateral side The soft tissue swelling noted throughout the lower leg, near midshaft of the femur Sensation to light touch throughout the extremities intact, she has some ge neralized numbness and tingling on the anterior thigh Plantar flexion, dorsiflexion, EHL, FHL are intact Dorsal pedis pulses 2+ Soft, no tenderness with palpation Results - Labs Labs: Abnormal Lab Results - Last 24 Hours (Table) 11/01/18 11/01/18 11/01/18 Range/Units 20:18 20:18 20:18 Plt Count 54 L (150-450) k/uL Lymphocytes # 0.5 L (1.0-4.8) k/uL PT 12.5 H (9.0-12.0) sec INR 1.2 H (<1.2) Chloride 109 H (98-107) mmol/L Total Bilirubin 1.5 H (0.2-1.3) mg/dL Alkaline Phosphatase 128 H (38-126) U/L Total Protein 5.9 L (6.3-8.2) g/dL Albumin 2.9 L (3.5-5.0) g/dL H & H 11/01/18 Range/Units 20:18 Hgb 12.4 (11.4-16.0) gm/dL Hct 36.7 (34.0-46.0) % Coagulation 11/01/18 Range/Units 20:18 INR 1.2 H (<1.2) Result Diagrams: 11/01/18 20:18 11/01/18 20:18 - Diagnostic results Hip x-ray: report reviewed, image reviewed Assessment and Plan Plan: Imaging: Multiple X-rays were done in the emergency room. Images demonstrated a displaced midshaft left femur fracture, it involves the distal aspect of the intramedullary nail. Hip joint remains intact, area of IT fracture reveals good healing and position Assessment: 1. Displaced left midshaft femur fracture 2. History of intramedullary nail left intertrochanteric femur fracture 3. Multiple medical comorbidities Plan: I was able to discuss the case, including both physical exam findings imaging studies my attending Dr. Dozier. Patient was admitted on orthopedic care, with plan for likely surgical intervention. We would like to proceed with a hardware removal of the IM nail, then placement of a long intramedullary nail for the femoral shaft fracture. Patient is known history of chronic ITP, she follows with hematology. At her last admission, they recommended platelets to be at 50 above. Currently platelets are 54, consult has been placed with hematology/oncology for evaluation. Internal medicine is recommended cardiac clearance also, awaiting that Pain control, utilize IV pain medication as needed Hinds catheter is in place NPO diet at this time Depending on clearance, we will like to proceed with the surgery as quickly as possible. Further recommendations to follow Time with Patient: Less than 30
[2018-11-02] MEDS: MORPHINE SULFATE 4 MG/ML SYRINGE IVP PRN ×2 (08:54→11:57)
--- NOTE | 2018-11-02 10:53 | P.CRDCN ---
History of Present Illness History of present illness: This is a pleasant 78 year old female past medical history significant for coronary artery disease status post stent placement to the RCA and chronically occluded OM, ischemic cardiomyopathy, hypertension, dyslipidemia, thrombocytopenia chronic nicotine dependence. She follows in the office with Dr. Erickson. She recently suffered a left intertrochanteric fracture with successful IM mattie placement 09/15/2018. She has been living with her daughter and undergoing physical therapy. She was in the bathroom and per the patient "her knee gave out" and she hit the floor. She denies feeling dizzy, light headed, short of breath, nauseated, chest pain or palpitations. Upon arrival to ED she was found to have a left femur fracture. We have been asked to see her in evaluation for pre-operative evaluation. She is seen and examined laying flat in bed with traction in place to the left leg. She denies chest pain, shortness of breath, orthopnea or palpitations. EKG reveals sinus mechanism, heart rate 87, left axis deviation and left bundle branch block. Chronic when compared to old EKG. Chest x-ray is negative for an acute cardiopulmonary process. Laboratory data reviewed, WBC 4.0, hemoglobin 12.4, platelets 54, INR 1.2, sodium 138, potassium 4.3, creatinine 0.54. Current cardiac medications include aspirin 81 mg daily, Imdur 60 mg daily, lisinopril 10 mg daily, Lopressor 50 mg twice a day and pravastatin 40 mg daily. Most recent echocardiogram obtained September 2018 reveals impaired LV systolic function with ejection fraction 40-45% with global hypokinesia, mild MR, mild T R, pulmonary hypertension. Most recent stress test performed in the office 02/2018 revealed mild reversible defect inferolaterally secondary to diaphragmatic activity with EF of 51%. At the time of my exam: CONSTITUTIONAL: Denies fever. Denies chills. EYES: Denies blurred vision. Denies vision changes. Denies eye pain. EARS, NOSE, MOUTH & THROAT: Denies headache. Denies sore throat. Denies ear p ain. CARDIOVASCULAR: Denies chest pain. Denies shortness of breath. Denies orthopnea. Denies PND. Denies palpitations. RESPIRATORY: Denies cough. GASTROINTESTINAL: Denies abdominal pain. Denies diarrhea. Denies constipation. Denies nausea. Denies vomiting. MUSCULOSKELETAL: Complains of discomfort and swelling to the left lower extremity. INTEGUMENTARY: Denies pruitis. Denies rash. NEUROLOGIC: Denies numbness. Denies tingling. Denies weakness. PSYCHIATRIC: Denies anxiety. Denies depression. ENDOCRINE: Denies fatigue. Denies weight change. Denies polydipsia. Denies polyurina. GENITOURINARY: Denies burning, hematuria or urgency with micturation. HEMATOLOGIC: Denies history of anemia. Denies bleeding. Blood pressure 101/58 heart rate 98 afebrile maintaining oxygen saturation on room air GENERAL: This is a 78-year-old in no apparent distress at the time of my examination. HEENT: Head is atraumatic, normocephalic. Pupils are equal, round. Sclerae anicteric. Conjunctivae are clear. Mucous membranes of the mouth are moist. Neck is supple. There is no jugular venous distention. No carotid bruit is heard. LUNGS: Clear to auscultation no wheezes, rales or rhonchi. No chest wall tenderness is noted on palpation or with deep breathing. HEART: Regular rate and rhythm without murmurs, rubs or gallops. S1 and S2 heard. ABDOMEN: Soft, nontender. Bowel sounds are heard. No organomegaly noted. EXTREMITIES: Left lower extremity edema noted upper and lower aspect, traction in place. Right lower extremity no swelling noted. VASCULAR: Radial and dorsalis pedis pulses palpated, no evidence of clubbing. NEUROLOGIC: Patient is awake, alert and oriented x3. ASSESSMENT Left femur fracture Ischemic cardiomyopathy, EF 40-45% Chronic systolic heart failure, currently euvolemic. History of coronary artery disease s/p stent placement to RCA with chronic occlusion of OM Hypertension Dyslipidemia Thrombocytopenia Left bundle branch block Chronic nicotine dependence PLAN Clinically she is euvolemic. No symptoms of angina or heart failure. No absolute contraindications to undergo surgical intervention, however she is high risk due to her co-morbid conditions. Recommend cautious fluid adm inistration and optimal blood pressure control intra-operatively. Continue aspirin, imdur, lisinopril, lopressor and pravastatin as previously ordered. We will continue to follow in the post-operative phase. Thank you kindly for this consultation. Nurse Practitioner note has been reviewed, I agree with a documented findings and plan of care. Patient was seen and examined. Past Medical History Past Medical History: Blood Disorder, Coronary Artery Disease (CAD), Hyperlipidemia, Hypertension, Myocardial Infarction ([place]) Additional Past Medical History / Comment(s): Thrombocytopenia-sees Dr. Kan. 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, 11-28-15 ercp, left hip repair with rods 09-15-2018 Past Anesthesia/Blood Transfusion Reactions: No Reported Reaction Date of Last Stent Placement:: 1998 Past Psychological History: No Psychological Hx Reported Smoking Status: Current some day smoker Past Alcohol Use History: None Reported Additional Past Alcohol Use History / Comment(s): smokes maybe weekly- 1-2 cigarettes- had smoked and quit for 12 yrs and started up about 5 yrs ago again Past Drug Use History: None Reported - Past Family History Mother Family Medical History: Cancer Additional Family Medical History / Comment(s): Breast Ca Father Family Medical History: Myocardial Infarction ([place]) Additional Family Medical History / Comment(s): @ age 86 from [place] Medications and Allergies Home Medications Medication Instructions Recorded Confirmed Type Lisinopril [Prinivil] 10 mg PO DAILY 03/09/15 11/01/18 History Metoprolol Tartrate [Lopressor] 50 mg PO BID 03/09/15 11/01/18 History Isosorbide Mononitrate ER [Imdur] 60 mg PO DAILY 10/30/15 11/01/18 History Aspirin EC [Ecotrin Low Dose] 81 mg PO DAILY 09/12/18 11/01/18 History Pravastatin Sodium [Pravachol] 40 mg PO HS 09/12/18 11/01/18 History Ferrous Sulfate [Iron (65 MG 325 mg PO W/LUNCH tab 09/19/18 11/01/18 Rx Elemental)] Hydrocodone/Acetaminophen [[place] 1 tab PO Q6HR PRN 11/01/18 11/01/18 History 5-325] diphenhydrAMINE [Benadryl] 25 mg PO QID PRN 11/01/18 11/01/18 History Allergies Allergy/AdvReac Type Severity Reaction Status Date / Time cephalexin monohydrate Allergy Rash/Hives/ Verified 11/01/18 19:17 [From Keflex] Swelling codeine Allergy Unknown Verified 11/01/18 19:17 meperidine HCl [From Demerol] Allergy Rash/Hives Verified 11/01/18 19:17 Penicillins Allergy Swelling Verified 11/01/18 19:17 pentazocine lactate Allergy Rash/Hives-Stomach Verified 11/01/18 19:17 [From Talwin] Upset propoxyphene napsylate Allergy Rash/Hives- Verified 11/01/18 19:17 [From Darvocet-N] Itch Physical Exam Vitals: Vital Signs Temp Pulse Pulse Resp BP BP Pulse Ox 11/02/18 07:00 98.5 F 98 16 101/58 94 L 11/02/18 02:06 98.8 F 83 18 111/57 98 11/01/18 22:42 98.4 F 79 18 155/66 97 11/01/18 22:05 98 F 72 18 125/50 99 11/01/18 20:26 98 F 92 18 139/51 98 11/01/18 18:53 98.2 F 62 16 141/55 98 Intake and Output 11/01/18 11/02/18 11/02/18 22:59 06:59 14:59 Intake Total 350 Output Total 575 Balance -225 Intake: Intake, IV Titration 350 Amount Sodium Chloride 0.9% 1, 350 000 ml @ 50 mls/hr IV . Q20H [facility] Rx#:[id number] Output: Urine 575 Other: Voiding Method Indwelling Catheter Indwelling Catheter Weight 61.235 kg Results 11/01/18 20:18 11/01/18 20:18 Cardiac Enzymes 11/01/18 Range/Units 20:18 AST 32 (14-36) U/L Coagulation 11/01/18 Range/Units 20:18 PT 12.5 H (9.0-12.0) sec APTT 27.0 (22.0-30.0) sec CBC 11/01/18 Range/Units 20:18 WBC 4.0 (3.8-10.6) k/uL RBC 4.00 (3.80-5.40) m/uL Hgb 12.4 (11.4-16.0) gm/dL Hct 36.7 (34.0-46.0) % Plt Count 54 L (150-450) k/uL Comprehensive Metabolic Panel 11/01/18 Range/Units 20:18 Sodium 138 (137-145) mmol/L Potassium 4.3 (3.5-5.1) mmol/L Chloride 109 H (98-107) mmol/L Carbon Dioxide 26 (22-30) mmol/L BUN 15 (7-17) mg/dL Creatinine 0.54 (0.52-1.04) mg/dL Glucose 90 (74-99) mg/dL Calcium 8.9 (8.4-10.2) mg/dL AST 32 (14-36) U/L ALT 23 (9-52) U/L Alkaline Phosphatase 128 H (38-126) U/L Total Protein 5.9 L (6.3-8.2) g/dL Albumin 2.9 L (3.5-5.0) g/dL Current Medications Generic Name Dose Route Start Last Admin Trade Name Freq PRN Reason Stop Dose Admin Aspirin 81 mg 11/02/18 09:00 11/02/18 08:18 Aspirin PO Not Given DAILY RONI Hydromorphone HCl 1 mg 11/02/18 08:20 Dilaudid IVP Q3HR PRN Moderate Pain Isosorbide Mononitrate 60 mg 11/02/18 09:00 11/02/18 08:18 Imdur PO Not Given DAILY [facility] Lisinopril 10 mg 11/02/18 09:00 11/02/18 08:18 Zestril PO Not Given DAILY [facility] Metoprolol Tartrate 50 mg 11/02/18 09:00 11/02/18 10:18 Lopressor PO 50 mg BID RONI Administration Morphine Sulfate 4 mg 11/02/18 01:05 11/02/18 08:54 Morphine Sulfate (Inj) IVP 4 mg Q4HR PRN Administration SEVERE Pain Naloxone HCl 0.2 mg 11/01/18 21:30 Narcan IV Q2M PRN Opioid Reversal Pravastatin Sodium 40 mg 11/02/18 21:00 Pravachol PO HS RONI Intake and Output 11/01/18 11/02/18 11/02/18 22:59 06:59 14:59 Intake Total 350 Output Total 575 Balance -225 Intake: Intake, IV Titration 350 Amount Sodium Chloride 0.9% 1, 350 000 ml @ 50 mls/hr IV . Q20H [facility] Rx#:[id number] Output: Urine 575 Other: Voiding Method Indwelling Catheter Indwelling Catheter Weight 61.235 kg 11/01/18 20:18 11/01/18 20:18
[2018-11-02 11:45] LABS: Basophils % (A) 1 %; Eosinophils % (A) 1 %; HCT 34.8 % (34.0-46.0); HGB 11.9 gm/dL (11.4-16.0); Lymphocytes # (A) 0.4 k/uL (1.0-4.8); Lymphocytes % (A) 11 %; MCH 32.8 pg (25.0-35.0); MCHC 34.1 g/dL (31.0-37.0); Mean Platelet Volume 10.5; Monocytes # (A) 0.3 k/uL (0-1.0); Monocytes % (A) 9 %; Neutrophils # (A) 2.9 k/uL (1.3-7.7); Neutrophils % (A) 75 %; Poikilocytosis Slight; RBC 3.63 m/uL (3.80-5.40); RDW 14.9 % (11.5-15.5); WBC 3.8 k/uL (3.8-10.6)
[2018-11-02 11:46] LABS: Platelet Count 45 k/uL (150-450)
[2018-11-02] MEDS ORDERED: IV FLUID CONTINUATION 1,000 ML IV ONE (13:20)
[2018-11-02] MEDS ORDERED: ONDANSETRON 4 MG/2 ML VIAL IVP ONE (13:39)
--- NOTE | 2018-11-02 13:43 | P.PN ---
Progress Note - Text Progress Note Date: 11/02/18 Please refer to the H&P for full note. Patient was not seen as she was gone to OR for surgery. 78-year-old female with PMH of femoral fracture which was repaired in 09/15/2018, CAD, ischemic cardiomyopathy with EF 40%, hypertension, hyperlipidemia and tobacco use initially presented to the ED after a fall from home. She was found to have a displaced fracture of her mid left femoral diaphysis along the distal aspect of the intramedullary mattie. [facility] physicians was consulted for medical management of this patient. Cardiology was consulted due to her extensive cardiac history and was cleared for surgery. Hematology was consulted for a low platelet count, was advised to transfuse platelets prior to surgery by Dr. Eli. We will resume her home medications for hypertension and CHF. Continue lisinopril and metoprolol. Continue Imdur. Cardiology is following. Continue aspirin and Pravachol for history of CAD. Ensure adequate pain management post surgery. Monitor hemoglobin and ensure no abnormal bleeding given her low platelet count due to history of ITP. Hematology is following. Management of femoral fracture per orthopedic surgery.
[2018-11-02] MEDS ORDERED: SODIUM CHLORIDE 0.9% 100 ML BAG ONE (15:25)
[2018-11-02] MEDS ORDERED: NEOSTIGMINE 1 MG/ML 10 ML VIAL ONE (15:25)
[2018-11-02] MEDS ORDERED: fentaNYL (PF) 50 MCG/ML 2 ML AMP ONE (15:25)
[2018-11-02] MEDS ORDERED: LIDOCAINE 1% INJ 10MG/ML (20 ML MDV) ONE (15:25)
[2018-11-02] MEDS ORDERED: PHENYLEPHRINE-0.9% NACL SYG 1 MG/10 ML SYRINGE ONE (15:25)
[2018-11-02] MEDS ORDERED: TRANEXAMIC ACID 1,000 MG/10 ML VIAL ONE (15:25)
[2018-11-02] MEDS ORDERED: ROCURONIUM BROMIDE 10 MG/ML 10 ML VIAL IV ONE (15:25)
[2018-11-02] MEDS ORDERED: GLYCOPYRROLATE 0.2 MG/ML 2 ML VIAL ONE (15:25)
[2018-11-02] MEDS ORDERED: PROPOFOL 10 MG/ML 20 ML VIAL IV ONE (15:25)
[2018-11-02] MEDS ORDERED: SUCCINYLCHOLINE CHLORIDE 100 MG/5 ML SYR IV ONE (15:25)
[2018-11-02] MEDS ORDERED: MIDAZOLAM 2 MG/2 ML VIAL ONE (15:25)
[2018-11-02] MEDS ORDERED: LACTATED RINGERS 1,000 ML IV ONE ×3 (15:50→17:45)
[2018-11-02] MEDS ORDERED: CLINDAMYCIN 600 MG in SODIUM CHLORIDE 0.9% 1,000 ML IRRIGATION ONE ×4 (16:16)
[2018-11-02] MEDS ORDERED: TRANEXAMIC ACID 1,000 MG in SODIUM CHLORIDE 0.9% 100 ML IVPB ONE (16:59)
--- NOTE | 2018-11-02 17:00 | P.CONS ---
History of Present Illness - Reason for Consult Consult date: 11/02/18 ITP, needing Orthopedic surgerical intervention Requesting physician: Ashlie Hurtado - Chief Complaint fall - History of Present Illness Pt is a pleasant patient of Dr. Kan, known chronic ITP, baseline platelet count ranges between 50,000 and 70,000 since 2007. She is also B12 deficient. about 6 weeks ago she had a fall with displaced left intertrochanteric femur fracture with surgical intervention. She was on post surgical anticoagulation, had epistaxis so she quit eliquis after 3/4 weeks of recommended post op anticoagulation. Pt was standing in bathroom, bent over to open toilet seat, heard "glass breaking" and then she was on floor. She is needing orthopedic surgery. Hematology consult for recommendations and clearance from ITP. Pt has no c/o other then pain in the left leg Review of Systems 14 point ROS is negative except as stated in HPI Past Medical History Past Medical History: Blood Disorder, Coronary Artery Disease (CAD), Hyperlipidemia, Hypertension, Myocardial Infarction ([place]) Additional Past Medical History / Comment(s): Thrombocytopenia-sees Dr. Kan. 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, 11-28-15 ercp, left hip repair with rods 09-15-2018 Past Anesthesia/Blood Transfusion Reactions: No Reported Reaction Date of Last Stent Placement:: 1998 Past Psychological History: No Psychological Hx Reported Smoking Status: Current some day smoker Past Alcohol Use History: None Reported Additional Past Alcohol Use History / Comment(s): smokes maybe weekly- 1-2 cigarettes- had smoked and quit for 12 yrs and started up about 5 yrs ago again Past Drug Use History: None Reported - Past Family History Mother Family Medical History: Cancer Additional Family Medical History / Comment(s): Breast Ca Father Family Medical History: Myocardial Infarction ([place]) Additional Family Medical History / Comment(s): @ age 86 from [place] Medications and Allergies Home Medications Medication Instructions Recorded Confirmed Type Lisinopril [Prinivil] 10 mg PO DAILY 03/09/15 11/01/18 History Metoprolol Tartrate [Lopressor] 50 mg PO BID 03/09/15 11/01/18 History Isosorbide Mononitrate ER [Imdur] 60 mg PO DAILY 10/30/15 11/01/18 History Aspirin EC [Ecotrin Low Dose] 81 mg PO DAILY 09/12/18 11/01/18 History Pravastatin Sodium [Pravachol] 40 mg PO HS 09/12/18 11/01/18 History Ferrous Sulfate [Iron (65 MG 325 mg PO W/LUNCH tab 09/19/18 11/01/18 Rx Elemental)] Hydrocodone/Acetaminophen [[place] 1 tab PO Q6HR PRN 11/01/18 11/01/18 History 5-325] diphenhydrAMINE [Benadryl] 25 mg PO QID PRN 11/01/18 11/01/18 History Allergies Allergy/AdvReac Type Severity Reaction Status Date / Time cephalexin monohydrate Allergy Rash/Hives/ Verified 11/01/18 19:17 [From Keflex] Swelling codeine Allergy Unknown Verified 11/01/18 19:17 meperidine HCl [From Demerol] Allergy Rash/Hives Verified 11/01/18 19:17 Penicillins Allergy Swelling Verified 11/01/18 19:17 pentazocine lactate Allergy Rash/Hives-Stomach Verified 11/01/18 19:17 [From Talwin] Upset propoxyphene napsylate Allergy Rash/Hives- Verified 11/01/18 19:17 [From Darvocet-N] Itch Physical Exam Vitals: Vital Signs Temp Pulse Pulse Resp BP BP Pulse Ox 11/02/18 13:21 98.6 F 72 16 142/65 94 L 11/02/18 07:00 98.5 F 98 16 101/58 94 L 11/02/18 02:06 98.8 F 83 18 111/57 98 11/01/18 22:42 98.4 F 79 18 155/66 97 11/01/18 22:05 98 F 72 18 125/50 99 11/01/18 20:26 98 F 92 18 139/51 98 11/01/18 18:53 98.2 F 62 16 141/55 98 Intake and Output 11/02/18 11/02/18 11/02/18 06:59 14:59 22:59 Intake Total 350 500 404 Output Total 575 480 Balance -225 20 404 Intake: IV 200 101 Intake, IV Titration 350 300 Amount Sodium Chloride 0.9% 1, 350 300 000 ml @ 50 mls/hr IV . Q20H [facility] Rx#:[id number] Blood Product 303 Platelet Irr Pheresis 303 Acda1 Unit [id number] Output: Urine 575 480 Other: Voiding Method Indwelling Catheter Indwelling Catheter # Voids 1 - Constitutional General appearance: average body habitus, cooperative, mild distress - EENT Eyes: anicteric sclerae, EOMI ENT: hearing grossly normal, normal oropharynx - Neck Neck: no lymphadenopathy - Respiratory Respiratory: bilateral: CTA - Cardiovascular Heart sounds: normal: S1, S2 - Gastrointestinal General gastrointestinal: normal bowel sounds, soft - Psychiatric Psychiatric: A&O x's 3, appropriate affect, intact judgment & insight Results CBC & Chem 7: 11/02/18 10:50 11/01/18 20:18 Labs: Abnormal Lab Results - Last 24 Hours (Table) 11/01/18 11/01/18 11/01/18 Range/Units 20:18 20:18 20:18 RBC (3.80-5.40) m/uL Plt Count 54 L (150-450) k/uL Lymphocytes # 0.5 L (1.0-4.8) k/uL PT 12.5 H (9.0-12.0) sec INR 1.2 H (<1.2) Chloride 109 H (98-107) mmol/L Total Bilirubin 1.5 H (0.2-1.3) mg/dL Alkaline Phosphatase 128 H (38-126) U/L Total Protein 5.9 L (6.3-8.2) g/dL Albumin 2.9 L (3.5-5.0) g/dL 11/02/18 Range/Units 10:50 RBC 3.63 L (3.80-5.40) m/uL Plt Count 45 L (150-450) k/uL Lymphocytes # 0.4 L (1.0-4.8) k/uL PT (9.0-12.0) sec INR (<1.2) Chloride (98-107) mmol/L Total Bilirubin (0.2-1.3) mg/dL Alkaline Phosphatase (38-126) U/L Total Protein (6.3-8.2) g/dL Albumin (3.5-5.0) g/dL Assessment and Plan (1) Chronic ITP (idiopathic thrombocytopenia) Narrative/Plan: Orthopedic surgical intervention for the femur ok with platelets >50,000. If less then 50,0000 transfusion of platelets during procedure. CBC 6 hours post op and PRN if s/s bleeding, transfuse with bood for Hgb <7 and platelets <10,000 or if symptomatic. Monitor CBC daily for Hgb changes. Post op anticoagulation would again be recommended 4 weeks post op. Platelets need to be >50,000 for anticoagulation. Pt needs to follow up at least weekly in Dr. Kna's office for monitoring. Current Visit: Yes Status: Chronic Priority: Medium Code(s): D69.3 - IMMUNE THROMBOCYTOPENIC PURPURA SNOMED Code(s): 78239584
[2018-11-02] MEDS ORDERED: MAGNESIUM HYDROXIDE 2,400 MG/10 ML CUP PO PRN (17:47)
[2018-11-02] MEDS ORDERED: HYDROcodone/APAP 5-325MG 1 EACH TAB PO PRN (17:47)
[2018-11-02] MEDS ORDERED: ONDANSETRON 4 MG/2 ML VIAL IVP PRN (17:47)
--- NOTE | 2018-11-02 17:51 | P.OP ---
Date of Procedure: 11/02/18 Preoperative Diagnosis: Left femoral shaft fracture Postoperative Diagnosis: Same Procedure(s) Performed: Intramedullary nailing left femoral shaft fracture after extraction previous intramedullary nail Implants: Dixie gamma 130 degree long trochanteric nail, 105 mm compression screw, 55 mm distal locking screw Anesthesia: BEL Surgeon: Raymond Dozier Director Nursing Service #1: Ton Rivera Estimated Blood Loss (ml): 600 Pathology: none sent Condition: stable Disposition: PACU Indications for Procedure: The patient's a 78-year-old female who 6 weeks ago underwent trochanteric nailing for a left intertrochanteric femur fracture who fell at home sustaining a proximal femoral shaft fracture distal to her previous nail. A discussion of the risks and benefits of operative intervention was made with the patient. She opted to proceed with surgery. Specific risks of surgery to include infection, neurovascular injury, development of blood clots, possible development nonunion/malunion and possible need for subsequent procedures was discussed. Informed consent was obtained. Operative Findings: As below Description of Procedure: The patient was brought to the operating room, and after induction general anesthesia was placed supine on the [place] table. The fracture was reduced with longitudinal traction and slight internal rotation of the left leg. This is verified on AP and lateral views of fluoroscopy. Left were extremity was prepped and draped in normal fashion. The previous trochanteric incision was then made extending approximately 8 cm proximal to the greater trochanter. The skin and subcutaneous tissues were divided sharply. Electrocautery was used for hemostasis. The gluteus seth fascia was then opened with electrocautery. Blunt dissection was then made down to the level of the greater trochanter. A lateral thigh incision was then made for removal of the compression screw. The distal locking screw was also removed in a similar fashion. The nail was then extracted after placement of the ball-tipped guidewire down the femoral canal to the level of the epiphyseal scar. The canal was reamed up to 12.5 mm. An 11 mm x 320 mm trochanteric nail was then gently inserted over the guidewire. The guidewire was then removed. A guide pin was then placed through the previous compression screw tract. I did triple ream the lateral cortex. A 130 angle was utilized. A 105 mm compression screw was inserted to within 5 mm of the articular surface on the AP and lateral views. This was verified with fluoroscopy. The proximal set screw was placed. The distal locking screw was placed utilizing a freehand technique with the aid of fluoroscopy. The wounds were irrigated normal saline. Final fluoroscopic view showed adequate placement of the nail and alignment of the fracture. The fascia was closed with running 0 Vicryl suture. The subcutaneous tissues were reapproximated interrupted 2-0 Vicryl sutures. The skin was reprepped with saravanan. A sterile dressing was applied. The patient was awoken from general anesthesia and transferred to recovery room in fair condition. Blood loss was estimated at 600 mL. She did receive platelets during the surgery. No complications were incurred. Sponge and needle counts were correct at the end the case.
[2018-11-02] MEDS ORDERED: HYDROmorphone 1 MG/ML 1 ML SYRINGE IVP ONE (18:22)
[2018-11-02] MEDS: PRAVASTATIN SODIUM 40 MG TAB PO SCH (22:01)
[2018-11-02] MEDS: SENNOSIDES-DOCUSATE SODIUM 1 EACH TAB PO SCH (22:02)
[2018-11-02 22:23] LABS: Basophils % (A) 0 %; Eosinophils % (A) 1 %; HCT 30.9 % (34.0-46.0); HGB 10.3 gm/dL (11.4-16.0); Lymphocytes # (A) 0.3 k/uL (1.0-4.8); Lymphocytes % (A) 4 %; MCH 31.3 pg (25.0-35.0); MCHC 33.3 g/dL (31.0-37.0); Mean Platelet Volume 8.8; Monocytes # (A) 0.4 k/uL (0-1.0); Monocytes % (A) 6 %; Neutrophils % (A) 89 %; Poikilocytosis Slight; RBC 3.29 m/uL (3.80-5.40); RDW 15.5 % (11.5-15.5); WBC 6.7 k/uL (3.8-10.6)
[2018-11-02 22:27] LABS: Platelet Count 63 k/uL (150-450)
[2018-11-03] MEDS: HYDROmorphone 1 MG/ML 1 ML SYRINGE IVP PRN ×2 (05:16→08:43)
--- NOTE | 2018-11-03 07:53 | FL ---
Fluoroscopy HISTORY: Fracture 61 seconds fluoroscopy time supplied to the referring clinician. 5 intraoperative C-arm images docum ent the procedure. See dictated report from orthopedic surgery.
--- NOTE | 2018-11-03 07:53 | XR ---
Limited left femur HISTORY: Fracture 5 intraoperative C-arm images document the procedure.
[2018-11-03] MEDS: ASPIRIN 81 MG PO SCH (08:43)
[2018-11-03] MEDS: METOPROLOL TARTRATE 50 MG TAB PO SCH ×2 (08:43→20:10)
[2018-11-03] MEDS: ISOSORBIDE MONONITRATE ER 60 MG TAB.ER.24H PO SCH (08:43)
[2018-11-03] MEDS: LISINOPRIL 10 MG TAB PO SCH (08:43)
[2018-11-03 09:27] LABS: Basophils % (A) 0 %; Eosinophils # (A) 0.1 k/uL (0-0.7); Eosinophils % (A) 1 %; HCT 27.6 % (34.0-46.0); HGB 9.3 gm/dL (11.4-16.0); Lymphocytes # (A) 0.6 k/uL (1.0-4.8); Lymphocytes % (A) 9 %; MCH 31.6 pg (25.0-35.0); MCHC 33.6 g/dL (31.0-37.0); MCV 93.9 fL (80.0-100.0); Monocytes # (A) 0.4 k/uL (0-1.0); Monocytes % (A) 6 %; Neutrophils # (A) 5.4 k/uL (1.3-7.7); Neutrophils % (A) 83 %; Poikilocytosis Slight; RBC 2.94 m/uL (3.80-5.40); RDW 15.4 % (11.5-15.5); WBC 6.5 k/uL (3.8-10.6)
[2018-11-03 09:39] LABS: Platelet Count 59 k/uL (150-450)
--- NOTE | 2018-11-03 10:29 | P.PN ---
Subjective Progress Note Date: 11/03/18 Principal diagnosis: Status post hardware removal left lower extremity, insertion of IM nail left femoral shaft fracture Objective - Vital Signs Vital signs: Vital Signs Temp 98.8 F 11/03/18 07:00 Pulse 86 11/03/18 07:00 Resp 15 11/03/18 07:00 BP 96/44 11/03/18 07:00 Pulse Ox 98 11/03/18 07:00 Intake & Output 11/02/18 11/03/18 11/03/18 18:59 06:59 18:59 Intake Total 2104 600 222 Output Total 1305 375 Balance 799 225 222 Intake: IV 1501 Intake, IV Titration 300 600 Amount Sodium Chloride 0.9% 1, 300 150 000 ml @ 50 mls/hr IV . Q20H [facility] Rx#:[id number] ceFAZolin 2 gm In Sodium 450 Chloride 0.9% 50 ml @ 100 mls/hr IVPB Q8HR [facility] Rx# :[id number] Oral 222 Blood Product 303 Platelet Irr Pheresis 303 Acda1 Unit [id number] Output: Urine 605 375 Estimated Blood Loss 700 Other: Voiding Method Indwelling Catheter Indwelling Catheter # Voids 1 - Exam Left lower extremity: Incision is clean, dry, and intact. The saravanan are in good condition. There is minimal soft tissue swelling and ecchymosis surrounding the medial and lateral aspects of the incision. Calf is soft, no tenderness with palpation. Plantar flexion, dorsiflexion, EHL, FHL are intact. Sensory exam to light touch throughout the extremity is intact, dorsal pedis pulses 2+. - Labs CBC & Chem 7: 11/03/18 08:44 11/01/18 20:18 Labs: Abnormal Lab Results - Last 24 Hours (Table) 11/02/18 11/02/18 11/03/18 Range/Units 10:50 21:05 08:44 RBC 3.63 L 3.29 L 2.94 L (3.80-5.40) m/uL Hgb 10.3 L 9.3 L (11.4-16.0) gm/dL Hct 30.9 L 27.6 L (34.0-46.0) % Plt Count 45 L 63 L 59 L (150-450) k/uL Lymphocytes # 0.4 L 0.3 L 0.6 L (1.0-4.8) k/uL Assessment and Plan Plan: Assessment: Postoperative day #1 status post hardware removal, insertion of intramedullary nail left femoral shaft fracture Plan: Pain control, continue current medication GI and DVT prophylaxis, continue current medication Continue to monitor myoglobin and platelets daily Toe-touch weightbearing left lower extremity, utilizing a walker all times Discontinue urinary catheter am 11/04/2018, bedside commode Daily dressing changes/icing of left lower extremity Other medical translator recommendations Discharge planning: Patient will likely be in the hospital 3 week Time with Patient: Less than 30
--- NOTE | 2018-11-03 11:52 | P.PN ---
Subjective This is a pleasant 78 year old female past medical history significant for coronary artery disease status post stent placement to the RCA and chronically occluded OM, ischemic cardiomyopathy, hypertension, dyslipidemia, thrombocytopenia chronic nicotine dependence. She is seen and examined sitting up in the chair. She is POD#1. She denies chest pain, shortness of breath, dizziness or palpitations. Blood pressure 96/44 heart rate 86 afebrile and maintaining oxygen saturation on room air. Currently maintained on eliquis 2.5 mg BID for thromboembolic protection per ortho, aspirin 81 mg daily, imdure 60 mg daily, lisinopril 10 mg daily, lopressor 50 mg BID and pravastatin 40 mg daily. GENERAL: This is a 78-year-old in no apparent distress at the time of my examination. HEENT: Head is atraumatic, normocephalic. Pupils are equal, round. Sclerae anicteric. Conjunctivae are clear. Mucous membranes of the mouth are moist. Neck is supple. There is no jugular venous distention. No carotid bruit is heard. LUNGS: Clear to auscultation no wheezes, rales or rhonchi. No chest wall tenderness is noted on palpation or with deep breathing. HEART: Regular rate and rhythm without murmurs, rubs or gallops. S1 and S2 heard. EXTREMITIES: Left lower extremity edema noted upper and lower aspect, traction in place. Right lower extremity no swelling noted. ASSESSMENT Left femur fracture Ischemic cardiomyopathy, EF 40-45% Chronic systolic heart failure, currently euvolemic. History of coronary artery disease s/p stent placement to RCA with chronic occlusion of OM Hypertension Dyslipidemia Thrombocytopenia Left bundle branch block Chronic nicotine dependence PLAN Stable from a cardiac perspective. We will follow as needed, follow up with Dr. Erickson up on discharge. Nurse Practitioner note has been reviewed, I agree with a documented findings and plan of care. Patient was seen and examined. Objective - Vital Signs Vital signs: Vital Signs Temp 98.8 F 11/03/18 07:00 Pulse 86 11/03/18 07:00 Resp 15 11/03/18 07:00 BP 96/44 11/03/18 07:00 Pulse Ox 98 11/03/18 07:00 Intake & Output 11/02/18 11/03/18 11/03/18 18:59 06:59 18:59 Intake Total 2104 600 222 Output Total 1305 375 Balance 799 225 222 Intake: IV 1501 Intake, IV Titration 300 600 Amount Sodium Chloride 0.9% 1, 300 150 000 ml @ 50 mls/hr IV . Q20H [facility] Rx#:[id number] ceFAZolin 2 gm In Sodium 450 Chloride 0.9% 50 ml @ 100 mls/hr IVPB Q8HR [facility] Rx# :[id number] Oral 222 Blood Product 303 Platelet Irr Pheresis 303 Acda1 Unit [id number] Output: Urine 605 375 Estimated Blood Loss 700 Other: Voiding Method Indwelling Catheter Indwelling Catheter Indwelling Catheter # Voids 1 - Labs CBC & Chem 7: 11/03/18 08:44 11/01/18 20:18 Labs: Abnormal Lab Results - Last 24 Hours (Table) 11/02/18 11/03/18 Range/Units 21:05 08:44 RBC 3.29 L 2.94 L (3.80-5.40) m/uL Hgb 10.3 L 9.3 L (11.4-16.0) gm/dL Hct 30.9 L 27.6 L (34.0-46.0) % Plt Count 63 L 59 L (150-450) k/uL Lymphocytes # 0.3 L 0.6 L (1.0-4.8) k/uL
[2018-11-03] MEDS: HYDROcodone/APAP 5-325MG 1 EACH TAB PO PRN ×3 (11:58→22:40)
[2018-11-03] MEDS: APIXABAN 2.5 MG TABLET PO SCH ×2 (11:59→20:18)
[2018-11-03] MEDS ORDERED: MORPHINE SULFATE 4 MG/ML SYRINGE IVP PRN (18:35)
[2018-11-03] MEDS ORDERED: HYDROmorphone 1 MG/ML 1 ML SYRINGE IVP PRN (18:35)
--- NOTE | 2018-11-03 18:36 | P.PN ---
Subjective Progress Note Date: 11/03/18 (delayed charting seen at 1145) Principal diagnosis: hip pain Patient is a 78-year-old female past medical history of recent femoral fracture status post repair in September 2018, coronary artery disease, ischemic cardiomyopathy with ejection fraction 40-45%, hypertension, dyslipidemia, and chronic tobacco abuse who presented to the emergency department after a fall at home. She hadn't been her normal state of health when she was standing at the sink turned felt a snap in her left hip and felt the ground. She was subsequently found to have a left femoral hip fracture. She was admitted for further management. She was seen by cardiology as well as hematology and cl eared for surgery. 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 Hematology does agree with anticoagulation as long as platelets remained greater than 50. Patient seen and examined at bedside. She is having some left hip pain. She denies any chest pain, shortness breath, nausea, or vomiting. She is having some hearing loss. Per nursing difficulty maneuvering from bed to chair today. Objective - Vital Signs Vital signs: Vital Signs Temp 98.2 F 11/03/18 15:00 Pulse 76 11/03/18 15:00 Resp 16 11/03/18 15:00 BP 91/43 11/03/18 15:00 Pulse Ox 99 11/03/18 15:00 Intake & Output 11/02/18 11/03/18 11/03/18 18:59 06:59 18:59 Intake Total 2104 600 1802 Output Total 1305 375 610 Balance 551 272 4341 Intake: IV 1501 Intake, IV Titration 300 600 500 Amount IV Fluid Continuation 1, 500 000 ml @ 0 mls/hr IV .STK -[facility] Rx#:[id number] Sodium Chloride 0.9% 1, 300 150 000 ml @ 50 mls/hr IV . Q20H [facility] Rx#:[id number] ceFAZolin 2 gm In Sodium 450 Chloride 0.9% 50 ml @ 100 mls/hr IVPB Q8HR [facility] Rx# :[id number] Oral 1302 Blood Product 303 Platelet Irr Pheresis 303 Acda1 Unit [id number] Output: Urine 605 375 610 Estimated Blood Loss 700 Other: Voiding Method Indwelling Catheter Indwelling Catheter Indwelling Catheter # Voids 1 1 - Exam General: non toxic, no distress, appears at stated age Derm: warm, dry Head: atraumatic, normocephalic, symmetric Eyes: EOMI, no lid lag, anicteric sclera Mouth: no lip lesion, mucus membranes moist, kyphosis Cardiovascular: S1S2 reg, no murmur, positive posterior tibial pulse bilateral, Lungs: decreased breath sounds bilateral, no rhonchi, no rales , no accessory muscle use Abdominal: soft, nontender to palpation, no guarding, no appreciable orga nomegaly Ext: 1+ edema left hip, no gross muscle atrophy, no edema, no contractures Neuro: CN II-XI grossly intact, no focal neuro deficits Psych: Alert, oriented, appropriate affect - Labs CBC & Chem 7: 11/03/18 08:44 11/01/18 20:18 Labs: Abnormal Lab Results - Last 24 Hours (Table) 11/02/18 11/03/18 Range/Units 21:05 08:44 RBC 3.29 L 2.94 L (3.80-5.40) m/uL Hgb 10.3 L 9.3 L (11.4-16.0) gm/dL Hct 30.9 L 27.6 L (34.0-46.0) % Plt Count 63 L 59 L (150-450) k/uL Lymphocytes # 0.3 L 0.6 L (1.0-4.8) k/uL Assessment and Plan Assessment: Left femoral fracture status post IM nailing, post op pain - Patient and family do not wish for jail facility at discharge. Discussed with patient possibility of inpatient rehab if unable to ambulate at discharge. -Continue with morphine as needed for pain, encourage oral use of [place] with rel ative hypotension. - We will optimize pain medication regimen as patient is receiving 4 mg of IV morphine listed as for severe pain and 1 mg of IV Dilaudid listed for moderate pain. However IV Dilaudid 1 mg is equivalent to approximately 6-8 mg of IV morphine. Will adjust orders to use morphine for moderate pain and dilaudid for severe pain. Chronic Systolic CHF due to ischemic cardiomyopathy with ejection fraction of 40-45% -Lisinopril will be on hold secondary to low blood pressures -Continue beta magnus -Cardio recs appreciated: Outpatient follow-up Dr. Erickson ITP -Will need weekly CBCs on anticoagulation with Dr. Kan -Continue Eliquis as well as platelets greater than 50 Hx HTN, now relative hypotension - hold lisinopril - continue metoprolol - follow BP HLD - statin CAD - imdur - statin - no ASA with plts and need for eliquis, will d/c ASA DVT prophylaxis:eliquis Discussed with: patient, nursing Anticipated discharge: 2-[address]: family refusing SNF. HH vs IPR A total of 35 minutes was spent on the care of this complex patient more than 50% of the time was spent in counseling and care coordination.
[2018-11-03] MEDS: PRAVASTATIN SODIUM 40 MG TAB PO SCH (20:18)
[2018-11-03] MEDS: SENNOSIDES-DOCUSATE SODIUM 1 EACH TAB PO SCH (20:22)
--- NOTE | 2018-11-04 08:36 | P.PN ---
Subjective Progress Note Date: 11/04/18 Principal diagnosis: Status post hardware removal left lower extremity, insertion of IM nail left femoral shaft fracture Patient evaluated at bedside, she has family present. She is not feeling degrees today. She's had a nosebleed this morning, she states this did happen last time she was on oral anticoagulation. Denies any chest pain or shortness of breath Objective - Vital Signs Vital signs: Vital Signs Temp 98.2 F 11/04/18 07:49 Pulse 75 11/04/18 07:49 Resp 15 11/04/18 07:49 BP 115/61 11/04/18 07:49 Pulse Ox 95 11/04/18 07:49 Intake & Output 11/03/18 11/04/18 11/04/18 18:59 06:59 18:59 Intake Total 1802 580 Output Total 610 250 Balance 1192 330 Intake: Intake, IV Titration 500 40 Amount IV Fluid Continuation 1, 500 000 ml @ 0 mls/hr IV .STK -[facility] Rx#:[id number] Lactated Ringers 1,000 ml 40 @ 0 mls/hr IV .[facility]K-[facility] Rx#:[id number] Oral 1302 540 Output: Urine 610 250 Other: Voiding Method Indwelling Catheter Indwelling Catheter # Voids 1 - Exam Left lower extremity: Incision is clean, dry, and intact. The saravanan are in good condition. There is minimal soft tissue swelling and ecchymosis surrounding the medial and lateral aspects of the incision. Calf is soft, no tenderness with palpation. Plantar flexion, dorsiflexion, EHL, FHL are intact. Sensory exam to light touch throughout the extremity is intact, dorsal pedis pulses 2+. - Labs CBC & Chem 7: 11/03/18 08:44 11/01/18 20:18 Labs: Abnormal Lab Results - Last 24 Hours (Table) 11/03/18 Range/Units 08:44 RBC 2.94 L (3.80-5.40) m/uL Hgb 9.3 L (11.4-16.0) gm/dL Hct 27.6 L (34.0-46.0) % Plt Count 59 L (150-450) k/uL Lymphocytes # 0.6 L (1.0-4.8) k/uL Assessment and Plan Plan: Assessment: Postoperative day #2 status post hardware removal, insertion of intramedullary nail left femoral shaft fracture Plan: Pain control, continue current medication GI and DVT prophylaxis, continue anticoagulation at this time, the foot was strapped below 50,000 discontinue per hematology. Hematology and internal me dicine recommendations appreciated for nosebleeds Toe-touch weightbearing left lower extremity, utilizing a walker all times Discontinue urinary catheter am 11/04/2018, bedside commode Daily dressing changes/icing of left lower extremity Other manager medical device recommendations Discharge planning: Patient's family refusing subacute rehab, possible inpatient rehab versus discharged home in stable Time with Patient: Less than 30
[2018-11-04 08:39] LABS: African American GFR (CKD) >90 (>60 ml/min/1.73 sqM); Anion Gap 2 mmol/L; Blood Urea Nitrogen 19 mg/dL (7-17); Calcium 7.1 mg/dL (8.4-10.2); Carbon Dioxide 25 mmol/L (22-30); Chloride 108 mmol/L (98-107); Glucose 87 mg/dL (74-99); Potassium 3.8 mmol/L (3.5-5.1); Sodium 135 mmol/L (137-145)
[2018-11-04 08:43] LABS: HCT 22.5 % (34.0-46.0); MCH 30.6 pg (25.0-35.0); MCHC 33.2 g/dL (31.0-37.0); MCV 92.3 fL (80.0-100.0); Mean Platelet Volume 8.7; Poikilocytosis Slight; RBC 2.43 m/uL (3.80-5.40); RDW 15.1 % (11.5-15.5); WBC 4.4 k/uL (3.8-10.6)
[2018-11-04 08:56] LABS: HGB 7.5 gm/dL (11.4-16.0); Platelet Count 47 k/uL (150-450)
[2018-11-04] MEDS: METOPROLOL TARTRATE 50 MG TAB PO SCH ×2 (10:02→20:19)
[2018-11-04] MEDS: APIXABAN 2.5 MG TABLET PO SCH ×2 (10:02→20:20)
[2018-11-04] MEDS: ISOSORBIDE MONONITRATE ER 60 MG TAB.ER.24H PO SCH (10:02)
[2018-11-04] MEDS: HYDROcodone/APAP 5-325MG 1 EACH TAB PO PRN ×3 (10:03→22:31)
--- NOTE | 2018-11-04 11:15 | P.PN ---
Subjective Progress Note Date: 11/04/18 Principal diagnosis: hip pain Patient is a 78-year-old female past medical history of recent femoral fracture status post repair in September 2018, coronary artery disease, ischemic cardiomyopathy with ejection fraction 40-45%, hypertension, dyslipidemia, and chronic tobacco abuse who presented to the emergency department after a fall at home. She hadn't been her normal state of health when she was standing at the sink turned felt a snap in her left hip and felt the ground. She was subsequently found to have a left femoral hip fracture. She was admitted for further management. She was seen by cardiology as well as hematology and cleared for surgery. 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 Hematology does agree with anticoagulation as long as platelets remained greater than 50. Having some Acute blood loss anemia after surgery. Patient seen and examined at bedside. Reports left hip pain, and feeling sore all over, denies chest pain, shortness of breath, or lightheadedness. Feeling slightly fatigued today. Objective - Vital Signs Vital signs: Vital Signs Temp 98.2 F 11/04/18 07:49 Pulse 75 11/04/18 07:49 Resp 15 11/04/18 07:49 BP 115/61 11/04/18 07:49 Pulse Ox 95 11/04/18 07:49 Intake & Output 11/03/18 11/04/18 11/04/18 18:59 06:59 18:59 Intake Total 1802 580 240 Output Total 610 250 Balance 1192 330 240 Intake: Intake, IV Titration 500 40 Amount IV Fluid Continuation 1, 500 000 ml @ 0 mls/hr IV .STK [facility] Rx#:[id number] Lactated Ringers 1,000 ml 40 @ 0 mls/hr IV .[facility] Rx#:[id number] Oral 1302 540 240 Output: Urine 610 250 Other: Voiding Method Indwelling Catheter Indwelling Catheter # Voids 1 - Exam General: non toxic, no distress, appears at stated age Derm: warm, dry Head: atraumatic, normocephalic, symmetric, [place] Eyes: EOMI, no lid lag, anicteric sclera Mouth: no lip lesion, mucus membranes moist, kyphosis Cardiovascular: S1S2 reg, no murmur, positive posterior tibial pulse bilateral, Lungs: decreased breath sounds bilateral, no rhonchi, no rales , no accessory muscle use Abdominal: soft, nontender to palpation, no guarding, no appreciable organomegaly Ext: 1+ edema left leg, no gross muscle atrophy, no edema, no contractures Neuro: CN II-XI grossly intact, no focal neuro deficits Psych: Alert, oriented, appropriate affect - Labs CBC & Chem 7: 11/04/18 06:59 08 06:59 Labs: Abnormal Lab Results - Last 24 Hours (Table) 11/04/18 11/04/18 Range/Units 06:59 06:59 RBC 2.43 L (3.80-5.40) m/uL Hgb 7.5 L D (11.4-16.0) gm/dL Hct 22.5 L (34.0-46.0) % Sodium 135 L (137-145) mmol/L Chloride 108 H (98-107) mmol/L BUN 19 H (7-17) mg/dL Calcium 7.1 L (8.4-10.2) mg/dL Assessment and Plan Assessment: Left femoral fracture status post IM nailing, post op pain - Patient and family do not wish for residential facility at discharge. Discussed with patient possibility of inpatient rehab if unable to ambulate at discharge. -Continue with morphine as needed for pain, encourage oral use of [place] acute blood loss anemia - suspect releated to surgery - repeat CBC this evening if less than 7 would transfuse 1 unit. Chronic Systolic CHF due to ischemic cardiomyopathy with ejection fraction of 40-45% -Lisinopril will be on hold secondary to low blood pressures -Continue beta magnus -Cardio recs appreciated: Outpatient follow-up Dr. Erickson ITP -Will need weekly CBCs on anticoagulation with Dr. Kan -Continue Eliquis, await repeat plt count for today Hx HTN, now - hold lisinopril-relative hypotension with being on hold, anticipate restarting once BP stable - continue metoprolol - follow BP HLD - statin CAD - imdur - statin - no ASA with plts and need for eliquis DVT prophylaxis:eliquis Discussed with: patient, nursing Anticipated discharge: 2-[address]: family refusing SNF. HH vs IPR A total of 25 minutes was spent on the care of this complex patient more than 50% of the time was spent in counseling and care coordination.
[2018-11-04 12:16] LABS: Band Neutrophils % 2 %; Basophils # (M) 0.04 k/uL (0-0.2); Eosinophils # (M) 0.04 k/uL (0-0.7); Lymphocytes # (M) 0.62 k/uL (1.0-4.8); Metamyelocytes # (M) 0.09 k/uL (0); Metamyelocytes % 2 %; Monocytes # (M) 0.44 k/uL (0-1.0); Myelocytes # (M) 0.04 k/uL (0); Myelocytes % 1 %; Neutrophils % (M) 70 %; Nucleated Red Blood Cells 0 /100 WBC (0-0); Total Cells Counted 200
[2018-11-04 18:28] LABS: HGB 7.8 gm/dL (11.4-16.0); MCH 32.1 pg (25.0-35.0); MCV 94.5 fL (80.0-100.0); Mean Platelet Volume 8.6; Poikilocytosis Slight; RBC 2.44 m/uL (3.80-5.40); RDW 15.2 % (11.5-15.5); WBC 5.4 k/uL (3.8-10.6)
[2018-11-04 18:56] LABS: Platelet Count 57 k/uL (150-450)
[2018-11-04] MEDS: PRAVASTATIN SODIUM 40 MG TAB PO SCH (20:19)
[2018-11-04] MEDS: SENNOSIDES-DOCUSATE SODIUM 1 EACH TAB PO SCH (20:20)
[2018-11-05] MEDS: HYDROcodone/APAP 5-325MG 1 EACH TAB PO PRN ×3 (04:26→19:57)
[2018-11-05 08:00] LABS: HCT 22.9 % (34.0-46.0); HGB 7.6 gm/dL (11.4-16.0); MCH 30.8 pg (25.0-35.0); MCHC 33.2 g/dL (31.0-37.0); MCV 92.8 fL (80.0-100.0); Mean Platelet Volume 8.6; Poikilocytosis Slight; RBC 2.47 m/uL (3.80-5.40); RDW 15.3 % (11.5-15.5); WBC 4.3 k/uL (3.8-10.6)
[2018-11-05 08:04] LABS: Platelet Count 59 k/uL (150-450)
[2018-11-05] MEDS: ISOSORBIDE MONONITRATE ER 60 MG TAB.ER.24H PO SCH (09:33)
[2018-11-05] MEDS: METOPROLOL TARTRATE 50 MG TAB PO SCH (09:33)
[2018-11-05] MEDS: APIXABAN 2.5 MG TABLET PO SCH ×2 (09:33→19:57)
--- NOTE | 2018-11-05 10:40 | P.PN ---
Subjective Progress Note Date: 11/05/18 Principal diagnosis: Status post intramedullary nailing left proximal femoral shaft fracture Patient notes she didn't ambulate much yesterday because of dizziness/low blood pressure. She notes her pain is reasonably controlled. Objective - Vital Signs Vital signs: Vital Signs Temp 98.1 F 11/05/18 07:35 Pulse 74 11/05/18 07:35 Resp 16 11/05/18 07:35 BP 93/46 11/05/18 07:35 Pulse Ox 99 11/05/18 07:35 Intake & Output 11/04/18 11/05/18 11/05/18 18:59 06:59 18:59 Intake Total 580 600 120 Output Total 1050 Balance -470 600 120 Intake: Oral 580 600 120 Output: Urine 1050 Other: Voiding Method Bedside Commode # Voids 1 - Exam Left hip /thigh incisionsmild bloody drainage Hom[place] negative left lower extremity No focal neuro vascular deficits left lower extremity - Labs CBC & Chem 7: 11/05/18 07:21 11/04/18 06:59 Labs: Abnormal Lab Results - Last 24 Hours (Table) 11/04/18 11/04/18 11/05/18 Range/Units 06:59 17:44 07:21 RBC 2.44 L 2.47 L (3.80-5.40) m/uL Hgb 7.8 L 7.6 L (11.4-16.0) gm/dL Hct 23.0 L 22.9 L (34.0-46.0) % Plt Count 47 L 57 L 59 L (150-450) k/uL Lymphocytes # (Manual) 0.62 L (1.0-4.8) k/uL Metamyelocytes # (Man) 0.09 H (0) k/uL Myelocytes # (Manual) 0.04 H (0) k/uL Assessment and Plan Assessment: 1)Status post intramedullary nailing left proximal femoral shaft fracture 2)Anemia 3) thrombocytopenia. Plan: Continue medical management, analgesia, monitor hemoglobin, possible rehab placement soon. Time with Patient: Less than 30
[2018-11-05] MEDS ORDERED: BISACODYL 5 MG TABLET.DR PO STA (11:06)
--- NOTE | 2018-11-05 11:18 | P.PN ---
Subjective Progress Note Date: 11/05/18 Principal diagnosis: hip pain Patient is a 78-year-old female past medical history of recent femoral fracture status post repair in September 2018, coronary artery disease, ischemic cardiomyopathy with ejection fraction 40-45%, hypertension, dyslipidemia, and chronic tobacco abuse who presented to the emergency department after a fall at home. She hadn't been her normal state of health when she was standing at the sink turned felt a snap in her left hip and felt the ground. She was subsequently found to have a left femoral hip fracture. She was admitted for further management. She was seen by cardiology as well as hematology and cleared for surgery. 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 Hematology does agree with anticoagulation as long as platelets remained greater than 50. Having some Acute blood loss anemia after surgery. Patient seen and examined at bedside. Pain is better today, still no bowel movement agrees to stool softner. No chest pain or shortness of breath. Still doesn't want to go to rehab states where she goes is up to her daughter. Still requiring maximal assistance per staff. Discussed again possibility or inpatient rehab. Asked nursing to ensure that daughter (who is a W[employer]PER[employer] SUPERVISOR at a different facility) is able to preform transfers independently. Objective - Vital Signs Vital signs: Vital Signs Temp 98.1 F 11/05/18 07:35 Pulse 74 11/05/18 07:35 Resp 16 11/05/18 07:35 BP 93/46 11/05/18 07:35 Pulse Ox 99 11/05/18 07:35 Intake & Output 11/04/18 11/05/18 11/05/18 18:59 06:59 18:59 Intake Total 580 600 120 Output Total 1050 Balance -470 600 120 Intake: Oral 580 600 120 Output: Urine 1050 Other: Voiding Method Bedside Commode # Voids 1 - Exam General: non toxic, no distress, appears at stated age Derm: warm, dry Head: atraumatic, normocephalic, symmetric, [place] Eyes: EOMI, no lid lag, anicteric sclera Mouth: no lip lesion, mucus membranes moist, kyphosis Cardiovascular: S1S2 reg, no murmur, positive posterior tibial pulse bilateral, Lungs: decreased breath sounds bilateral, no rhonchi, no rales , no accessory muscle use Abdominal: soft, nontender to palpation, no guarding, no appreciable organomegaly Ext: no gross muscle atrophy, no edema, no contractures Neuro: CN II-XI grossly intact, no focal neuro deficits Psych: Alert, oriented, appropriate affect - Labs CBC & Chem 7: 11/05/18 07:21 11/04/18 06:59 Labs: Abnormal Lab Results - Last 24 Hours (Table) 11/04/18 11/04/18 11/05/18 Range/Units 06:59 17:44 07:21 RBC 2.44 L 2.47 L (3.80-5.40) m/uL Hgb 7.8 L 7.6 L (11.4-16.0) gm/dL Hct 23.0 L 22.9 L (34.0-46.0) % Plt Count 47 L 57 L 59 L (150-450) k/uL Lymphocytes # (Manual) 0.62 L (1.0-4.8) k/uL Metamyelocytes # (Man) 0.09 H (0) k/uL Myelocytes # (Manual) 0.04 H (0) k/uL Assessment and Plan Assessment: Left femoral fracture status post IM nailing, post op pain - Patient and family do not wish for [facility] facility at discharge. Dis cussed with patient possibility of inpatient rehab if unable to ambulate at discharge. -Continue with morphine as needed for pain, encourage oral use of [place] acute blood loss anemia - suspect releated to surgery - repeat CBC this evening if less than 7 would transfuse 1 unit. Constipation - add 1 dose of ducolax, has been refusing senna Chronic Systolic CHF due to ischemic cardiomyopathy with ejection fraction of 40-45% -Lisinopril will be on hold secondary to low blood pressures -Continue beta magnus -Cardio recs appreciated: Outpatient follow-up Dr. Erickson ITP -Will need weekly CBCs on anticoagulation with Dr. Kan -Continue Eliquis, await repeat plt count for today Hx HTN, now - hold lisinopril-relative hypotension with being on hold, anticipate restarting once BP stable - decrease metoprolol to 25 BID for 50 BID - follow BP HLD - statin CAD - imdur - statin - no ASA with plts and need for eliquis DVT prophylaxis:eliquis Discussed with: patient, nursing Anticipated discharge: 1-[address]: family refusing SNF. HH vs [facility] A total of 25 minutes was spent on the care of this complex patient more than 50% of the time was spent in counseling and care coordination.
[2018-11-05] MEDS: PRAVASTATIN SODIUM 40 MG TAB PO SCH (19:57)
[2018-11-05] MEDS: SENNOSIDES-DOCUSATE SODIUM 1 EACH TAB PO SCH (19:58)
[2018-11-05] MEDS: METOPROLOL TARTRATE 25 MG TAB PO SCH (19:58)
[2018-11-06] MEDS: HYDROcodone/APAP 5-325MG 1 EACH TAB PO PRN ×3 (01:25→17:37)
[2018-11-06] MEDS: ISOSORBIDE MONONITRATE ER 60 MG TAB.ER.24H PO SCH (08:41)
[2018-11-06] MEDS: APIXABAN 2.5 MG TABLET PO SCH ×2 (08:41→22:31)
[2018-11-06] MEDS: METOPROLOL TARTRATE 25 MG TAB PO SCH ×2 (08:41→22:31)
[2018-11-06 11:26] LABS: HCT 23.7 % (34.0-46.0); HGB 8.4 gm/dL (11.4-16.0); MCH 33.1 pg (25.0-35.0); MCHC 35.4 g/dL (31.0-37.0); MCV 93.6 fL (80.0-100.0); Mean Platelet Volume 8.4; Poikilocytosis Slight; RBC 2.54 m/uL (3.80-5.40); RDW 15.6 % (11.5-15.5); WBC 4.8 k/uL (3.8-10.6)
[2018-11-06 11:34] LABS: African American GFR (CKD) >90 (>60 ml/min/1.73 sqM); Anion Gap 4 mmol/L; Blood Urea Nitrogen 17 mg/dL (7-17); Calcium 7.5 mg/dL (8.4-10.2); Carbon Dioxide 24 mmol/L (22-30); Chloride 107 mmol/L (98-107); Glucose 116 mg/dL (74-99); Potassium 4.1 mmol/L (3.5-5.1); Sodium 135 mmol/L (137-145)
[2018-11-06 11:38] LABS: Platelet Count 75 k/uL (150-450)
[2018-11-06 12:29] LABS: Appearance,Urine Turbid (Clear); Bacteria,Urine Many /hpf; Bilirubin,Urine Negative (Negative); Blood,Urine Small (Negative); Color,Urine Yellow; Glucose,Urine (UA) Negative (Negative); Ketones,Urine Negative (Negative); Leukocyte Esterase,Urine Large (Negative); Mucus,Urine Occasional /hpf; Nitrite,Urine Positive (Negative); Protein,Urine Trace (Negative); RBC,Urine 12 /hpf (0-5); Specific Gravity,Urine 1.023 (1.001-1.035); Squamous Epithelial Cell,Urine 5 /hpf (0-4); WBC,Urine >182 /hpf (0-5)
--- NOTE | 2018-11-06 13:51 | P.PN ---
Subjective Progress Note Date: 11/06/18 Patient reports that she is feeling good denies complaint stated that she just wanted to go home with her family and stated that she had her , her daughter, her son-in-law and grandson living in the same home as of now to help her. Patient stated that her daughter lives about a mile and a half away from her current home but they are living with her to help the patient. Patient reported that she hadn't previous left hip surgery done but this time it broke without any falls. Patient had surgical repair done and rehabilitation was recommended but she and her family is refusing to go to the rehabilitation and they have whole family to help her when she goes home along with the home care and add durable medical equipment's including the hospital bed at home. Care coordinated with case management and they recommended all the above needed equipments are been taking care of. Nurses reported no other issues with her. Noted that patient had urinary analysis done for questionable reason and it turns out to be positive for infection. Although patient has Hinds catheter placed postoperatively. There is no fever documented and patient did not complain of symptoms related to urinary tract infection. Patient denies chest pain, palpitation, diaphoresis, fever, chills, nausea, vomiting, diarrhea and denies rest of the review of system. Patient also complains of having some constipation but refused to take any medication to relieve it. Objective - Vital Signs Vital signs: Vital Signs Temp 97.6 F 11/06/18 07:00 Pulse 79 11/06/18 07:00 Resp 17 11/06/18 07:00 BP 116/51 11/06/18 07:00 Pulse Ox 96 11/06/18 07:00 Intake & Output 11/05/18 11/06/18 11/06/18 18:59 06:59 18:59 Intake Total 360 540 Balance 360 540 Intake: Oral 360 540 Other: Voiding Method Bedside Commode # Voids 7 2 - Constitutional General appearance: Present: cooperative, no acute distress - EENT Eyes: Present: EOMI, normal appearance ENT: Present: hard of hearing - Neck Neck: Present: normal ROM. Absent: lymphadenopathy, rigidity, stridor, thyromegaly - Respiratory Respiratory: bilateral: CTA, negative: rales, rhonchi, wheezing - Cardiovascular Rhythm: regular Heart sounds: normal: S1, S2 Abnormal Heart Sounds: Absent: systolic murmur, diastolic murmur, S3 Gallop, S4 Gallop - Gastrointestinal General gastrointestinal: Present: normal bowel sounds, soft. Absent: distended, rigid, tenderness - Neurologic Neurologic: Present: CNII-XII intact. Absent: focal deficits - Psychiatric Psychiatric: Present: A&O x's 3, appropriate affect - Allied health notes Allied health notes reviewed: nursing - Labs CBC & Chem 7: 11/06/18 10:51 11/06/18 10:51 Labs: Abnormal Lab Results - Last 24 Hours (Table) 11/06/18 11/06/18 11/06/18 Range/Units 10:51 10:51 11:37 RBC 2.54 L (3.80-5.40) m/uL Hgb 8.4 L (11.4-16.0) gm/dL Hct 23.7 L (34.0-46.0) % RDW 15.6 H (11.5-15.5) % Plt Count 75 L (150-450) k/uL Sodium 135 L (137-145) mmol/L Glucose 116 H (74-99) mg/dL Calcium 7.5 L (8.4-10.2) mg/dL Urine Appearance Turbid H (Clear) Urine Protein Trace H (Negative) Urine Blood Small H (Negative) Urine Nitrite Positive H (Negative) Ur Leukocyte Esterase Large H (Negative) Urine RBC 12 H (0-5) /hpf Urine WBC >182 H (0-5) /hpf Urine WBC Clumps Many H (None) /hpf Ur Squamous Epith Cells 5 H (0-4) /hpf Urine Bacteria Many H (None) /hpf Urine Mucus Occasional H (None) /hpf Assessment and Plan (1) UTI (urinary tract infection), uncomplicated Narrative/Plan: Patient will be started on Macrobid for urinary tract infection and if cultures turns out to be positive then antibiotic will be adjusted accordingly. Current Visit: Yes Status: Acute Priority: High Code(s): N39.0 - URINARY T RACT INFECTION, SITE NOT SPECIFIED SNOMED Code(s): 96544893 (2) Left femoral shaft fracture Narrative/Plan: Pain management and rehabilitation process as per your (Ortho) care. Current Visit: Yes Status: Acute Code(s): S72.302A - UNSP FRACTURE OF SHAFT OF LEFT FEMUR, INIT FOR CLOS FX SNOMED Code(s): 45284815 (3) Chronic ITP (idiopathic thrombocytopenia) Narrative/Plan: stable platelets and no active bleeding or new bruises noted, is being followed by hematology. Current Visit: Yes Status: Chronic Priority: Medium Code(s): D69.3 - IMMUNE THROMBOCYTOPENIC PURPURA SNOMED Code(s): 36736859 (4) Iron deficiency anemia Narrative/Plan: Patient hemoglobin will be monitored and today hemoglobin is 8.4 but slightly better than yesterday and we'll continue to monitor while patient is in the hospital. Current Visit: Yes Status: Chronic Priority: Medium Code(s): D50.9 - IRON DEFICIENCY ANEMIA, UNSPECIFIED SNOMED Code(s): 01998012 (5) Hypertension, essential, benign Narrative/Plan: Patient is running low blood pressure and his lisinopril was held, we will continue to hold as patient blood pressure is still running low. Current Visit: Yes Status: Acute Priority: Medium Code(s): I10 - ESSENTIAL (PRIMARY) HYPERTENSION SNOMED Code(s): 2321292 (6) Coronary artery disease Narrative/Plan: Patient has no active signs or symptoms of coronary artery disease, I will continue Imdur, statin and patient is not on aspirin as she is on Eliquis. Current Visit: No Status: Chronic Priority: Medium Code(s): I25.10 - ATHSCL HEART DISEASE OF [place] CORONARY ARTERY W/O ANG PCTRS SNOMED Code(s): 22202987 Time with Patient: Less than 30
--- NOTE | 2018-11-06 15:03 | P.PN ---
Subjective Progress Note Date: 11/06/18 Principal diagnosis: Status post hardware removal left lower extremity, insertion of IM nail left femoral shaft fracture Patient evaluated at bedside. Pain is well-controlled. Denies any chest pain or shortness of breath Objective - Vital Signs Vital signs: Vital Signs Temp 97.4 F L 11/06/18 14:45 Pulse 84 11/06/18 14:45 Resp 17 11/06/18 14:45 BP 134/60 11/06/18 14:45 Pulse Ox 98 11/06/18 14:45 Intake & Output 11/05/18 11/06/18 11/06/18 18:59 06:59 18:59 Intake Total 360 540 Balance 360 540 Intake: Oral 360 540 Other: Voiding Method Bedside Commode # Voids 7 2 4 - Exam Left lower extremity: Incision is clean, dry, and intact. The saravanan are in good condition. There is minimal soft tissue swelling and ecchymosis surrounding the medial and lateral aspects of the incision. Calf is soft, no tenderness with palpation. Plantar flexion, dorsiflexion, EHL, FHL are intact. Sensory exam to light touch throughout the extremity is intact, dorsal pedis pulses 2+. - Labs CBC & Chem 7: 11/06/18 10:51 11/06/18 10:51 Labs: Abnormal Lab Results - Last 24 Hours (Table) 11/06/18 11/06/18 11/06/18 Range/Units 10:51 10:51 11:37 RBC 2.54 L (3.80-5.40) m/uL Hgb 8.4 L (11.4-16.0) gm/dL Hct 23.7 L (34.0-46.0) % RDW 15.6 H (11.5-15.5) % Plt Count 75 L (150-450) k/uL Sodium 135 L (137-145) mmol/L Glucose 116 H (74-99) mg/dL Calcium 7.5 L (8.4-10.2) mg/dL Urine Appearance Turbid H (Clear) Urine Protein Trace H (Negative) Urine Blood Small H (Negative) Urine Nitrite Positive H (Negative) Ur Leukocyte Esterase Large H (Negative) Urine RBC 12 H (0-5) /hpf Urine WBC >182 H (0-5) /hpf Urine WBC Clumps Many H (None) /hpf Ur Squamous Epith Cells 5 H (0-4) /hpf Urine Bacteria Many H (None) /hpf Urine Mucus Occasional H (None) /hpf Assessment and Plan Plan: Assessment: Postoperative day #4 status post hardware removal, insertion of intramedullary nail left femoral shaft fracture Plan: Pain control, continue current medication GI and DVT prophylaxis, continue Eliquis 2.5mg Toe-touch weightbearing left lower extremity, utilizing a walker all times Daily dressing changes/icing of left lower extremity Other internist medical doctor md recommendations Discharge planning: Plan for discharge home tomorrow Time with Patient: Less than 30
[2018-11-06] MEDS: SENNOSIDES-DOCUSATE SODIUM 1 EACH TAB PO SCH (22:29)
[2018-11-06] MEDS: PRAVASTATIN SODIUM 40 MG TAB PO SCH (22:31)
[2018-11-06] MEDS: NITROFURANTOIN MONOHYD/M-CRYST 100 MG CAP PO SCH (22:31)
[2018-11-07 08:23] VITALS: BP 123/56; PULSE 86; RESP 16; TEMP 97.8
[2018-11-07] MEDS: HYDROcodone/APAP 5-325MG 1 EACH TAB PO PRN ×2 (08:34→14:04)
[2018-11-07] MEDS: METOPROLOL TARTRATE 25 MG TAB PO SCH (08:34)
[2018-11-07] MEDS: ISOSORBIDE MONONITRATE ER 60 MG TAB.ER.24H PO SCH (08:34)
[2018-11-07] MEDS: APIXABAN 2.5 MG TABLET PO SCH (08:34)
[2018-11-07] MEDS: NITROFURANTOIN MONOHYD/M-CRYST 100 MG CAP PO SCH (08:34)
--- NOTE | 2018-11-07 11:27 | P.PN ---
Subjective Progress Note Date: 11/07/18 Patient reports that she is feeling better and she did work with the therapy and she thinks she will be able to do fine at home with home therapy and home care. Patient daughter was also present in the room and she was updated per patient's verbal consent. Nurses reported that orthopedic will be discharging patient today with follow-ups. Patient maximum temperature was 99.1F overnight. Patient was started on Macrobid for total of 7 days for her urinary tract infection. Patient stated that her frequency of urination is slightly improved but is still she is having some frequency and urgency. She reported she always developed urinary tract infection after and he fully catheter Placement. Objective - Vital Signs Vital signs: Vital Signs Temp 97.8 F 11/07/18 07:00 Pulse 86 11/07/18 07:00 Resp 16 11/07/18 07:00 BP 123/56 11/07/18 07:00 Pulse Ox 96 11/07/18 07:00 Intake & Output 11/06/18 11/07/18 11/07/18 18:59 06:59 18:59 Other: # Voids 4 4 - Constitutional General appearance: Present: cooperative, no acute distress - Respiratory Respiratory: bilateral: CTA, negative: rales, rhonchi, wheezing - Cardiovascular Rhythm: regular Heart sounds: normal: S1, S2 Abnormal Heart Sounds: Absent: systolic murmur, diastolic murmur, S3 Gallop, S4 Gallop - Gastrointestinal General gastrointestinal: Present: normal bowel sounds, soft. Absent: distended, rigid, tenderness - Neurologic Neurologic: Present: CNII-XII intact. Absent: focal deficits - Psychiatric Psychiatric: Present: A&O x's 3, appropriate affect - Allied health notes Allied health notes reviewed: nursing - Labs CBC & Chem 7: 11/06/18 10:51 11/06/18 10:51 Labs: Abnormal Lab Results - Last 24 Hours (Table) 11/06/18 11/06/18 11/06/18 Range/Units 10:51 10:51 11:37 RBC 2.54 L (3.80-5.40) m/uL Hgb 8.4 L (11.4-16.0) gm/dL Hct 23.7 L (34.0-46.0) % RDW 15.6 H (11.5-15.5) % Plt Count 75 L (150-450) k/uL Sodium 135 L (137-145) mmol/L Glucose 116 H (74-99) mg/dL Calcium 7.5 L (8.4-10.2) mg/dL Urine Appearance Turbid H (Clear) Urine Protein Trace H (Negative) Urine Blood Small H (Negative) Urine Nitrite Positive H (Negative) Ur Leukocyte Esterase Large H (Negative) Urine RBC 12 H (0-5) /hpf Urine WBC >182 H (0-5) /hpf Urine WBC Clumps Many H (None) /hpf Ur Squamous Epith Cells 5 H (0-4) /hpf Urine Bacteria Many H (None) /hpf Urine Mucus Occasional H (None) /hpf Assessment and Plan (1) UTI (urinary tract infection), uncomplicated Current Visit: Yes Status: Acute Priority: High Code(s): N39.0 - URINARY TRACT INFECTION, SITE NOT SPECIFIED SNOMED Code(s): 59727235 (2) Left femoral shaft fracture Current Visit: Yes Status: Acute Code(s): S72.302A - UNSP FRACTURE OF SHAFT OF LEFT FEMUR, INIT FOR CLOS FX SNOMED Code(s): 51758224 (3) Chronic ITP (idiopathic thrombocytopenia) Current Visit: Yes Status: Chronic Priority: Medium Code(s): D69.3 - IMMUNE THROMBOCYTOPENIC PURPURA SNOMED Code(s): 62444605 (4) Iron deficiency anemia Current Visit: Yes Status: Chronic Priority: Medium Code(s): D50.9 - IRON DEFICIENCY ANEMIA, UNSPECIFIED SNOMED Code(s): 57681423 (5) Hypertension, essential, benign Current Visit: Yes Status: Acute Priority: Medium Code(s): I10 - ESSENTIAL (PRIMARY) HYPERTENSION SNOMED Code(s): 3154337 (6) Coronary artery disease Current Visit: No Status: Chronic Priority: Medium Code(s): I25.10 - ATHSCL HEART DISEASE OF [place] CORONARY ARTERY W/O ANG PCTRS SNOMED Code(s): 73947171 Plan: Patient was educated on using incentive spirometry every 2 hour while awake this will decrease the chances of atelectasis and low-grade fever from it. Patient medication were reconciled and she was given prescription of Macrobid twice a day for total of 6 more days. Patient and her daughter was also advised that she can try going home but if she is unable to take care of herself and if the family is unable to provide the care she needs at home she always can go back to her primary care provider to be referred back to the longterm facility within the 30 days Post discharge. Time with Patient: Less than 30
--- NOTE | 2018-11-07 12:39 | P.DS ---
Providers Date of admission: 11/01/18 21:02 Expected date of discharge: 11/07/18 Attending physician: Raymond Dozier Consults: 11/01/18 21:32 Consult Physician Routine Consulting Provider: Gregorio Erickson Consult Reason/Comments: Clearance for surgery Do you want consulting provider notified?: Yes Consult Physician Routine Consulting Provider: Dorothea Fregoso Consult Reason/Comments: Medical Management Do you want consulting provider notified?: Already Contacted 11/01/18 21:33 Consult Physician Routine Consulting Provider: Henrique Kna Consult Reason/Comments: Clearance for surgery; hx of thrombocytopenia Do you want consulting provider notified?: Yes Primary care physician: Lina Jeffries MD Hospital Course: Date of admission: 11/01/2018 Date of discharge: 11/07/2018 Admission diagnosis: Displaced periprosthetic left femoral shaft fracture Discharge diagnosis: Status post hardware removal left lower extremity, IM nail left femoral shaft fracture Attending physician: Dr. Dozier Surgical procedures: Hardware removal left lower extremity, intramedullary nail left femoral shaft fracture Brief history: Patient is a 78-year-old female with a history of a previous fall that resulted in a left intertrochanteric femur fracture. She initially underwent a IM nail, this was done about 7 weeks ago. Patient was in her home on 11/01/2018, she was utilizing her walker when she turned and felt a snap in the leg. She had immediate pain and was unable to weight-bear. Upon arrival to [facility], it was determined she had a periprosthetic left femoral shaft fracture. Patient was admitted under orthopedic care, plan for surgical intervention. Hospital course: Details of patient's surgery can be found in operative report. Patient tolerated the procedure well and was subsequently transported to orthopedic floor. Patient's orthopeidc and medical care was provided daily. Patient had daily laboratory tests performed for evaluation of overall blood counts. Patient had daily physical therapy to include strengthening range of motion as well as education with walker ambulation. Patient was treated with Eliquis for their postoperative DVT prophylaxis during their inpatient stay. Patient was noted to have a relatively uneventful postoperative course. Patient reported satisfactory pain control with oral pain medications by postoperative day 0. Patient showed satisfactory progress with physical therapy. Patient moved steadily through the program and had no difficulty meeting the goals by postoperative day 5. Given patient's otherwise satisfactory course and having met physical therapy goals, plan is to discharge patient home on postoperative day 5. Discharge condition/disposition: Patient will be discharged home in stable condition. Discharge medications: Instructions are given on resumption of patient's normal daily medications per primary care recommendation, in addition patient will be prescribed [place] 5 mg/325 mg, Eliquis 2.5mg, Macrobid 100mg Discharge instructions: 1. Wound care and infection precautions, keep incision dry and covered while showering, no lotions, creams, moisturizers. No soaking, tubs, pools, hottubs. Do not scrub over the incision. 2. Toe-touch weightbearing with walker 3. Ice and elevate when necessary. Do not exceed 20 minutes per hour with ice pack. 4. Utilize compression sleeve until seen at first follow up appointment. 5. Visiting nursing care. 6. Home physical therapy. 7. Pain meds and anticoagulants per prescription. 8. Pain medication has potential to cause constipation. Increase oral fluid and fiber intake. Contact primary care provider if you have not had a bowel movement within 48 hours after discharge 9. No anti-inflammatory medication until discussed at first post operative visit, this including Motrin, Aleve, Mobic, Diclofenac, Aspirin. 10. Follow up in office at 2 weeks postop with Ty Rivera PA-C 11. Follow up with your primary care doctor 7-10 days after discharge. 12. Contact [facility] with any questions, . Wound instructions: 1. Keep incision covered and dry while showering 2. Please remove stitches on 11/16/2018 Procedures: Hardware removal left lower extremity, intramedullary nail left femoral shaft fracture Patient Condition at Discharge: Serious Plan - Discharge Summary Discharge Rx Participant: Yes New Discharge Prescriptions: New Nitrofurantoin Monohyd/M-Cryst [Macrobid] 100 mg PO BID 6 Days #12 cap Apixaban [Eliquis] 2.5 mg PO BID #60 tab Hydrocodone/Acetaminophen [[place] 5-325] 1 - 2 each PO Q6HR PRN #56 tab PRN Reason: Pain Continue Metoprolol Tartrate [Lopressor] 50 mg PO BID Isosorbide Mononitrate ER [Imdur] 60 mg PO DAILY Pravastatin Sodium [Pravachol] 40 mg PO HS Aspirin EC [Ecotrin Low Dose] 81 mg PO DAILY Ferrous Sulfate [Iron (65 MG Elemental)] 325 mg PO W/LUNCH tab diphenhydrAMINE [Benadryl] 25 mg PO QID PRN PRN Reason: Allergy Symptoms Discontinued Lisinopril [Prinivil] 10 mg PO DAILY Hydrocodone/Acetaminophen [[place] 5-325] 1 tab PO Q6HR PRN PRN Reason: Pain Discharge Medication List Metoprolol Tartrate [Lopressor] 50 mg PO BID 03/09/15 [History] Isosorbide Mononitrate ER [Imdur] 60 mg PO DAILY 10/30/15 [History] Aspirin EC [Ecotrin Low Dose] 81 mg PO DAILY 09/12/18 [History] Pravastatin Sodium [Pravachol] 40 mg PO HS 09/12/18 [History] Ferrous Sulfate [Iron (65 MG Elemental)] 325 mg PO W/LUNCH tab 09/19/18 [Rx] diphenhydrAMINE [Benadryl] 25 mg PO QID PRN 11/01/18 [History] Apixaban [Eliquis] 2.5 mg PO BID #60 tab 11/07/18 [Rx] Hydrocodone/Acetaminophen [[place] 5-325] 1 - 2 each PO Q6HR PRN #56 tab 11/07/18 [Rx] Nitrofurantoin Monohyd/M-Cryst [Macrobid] 100 mg PO BID 6 Days #12 cap 11/07/18 [Rx] Follow up Appointment(s)/Referral(s): [facility], [NON-STAFF] - Lina Jeffries MD [Primary Care Provider] - 1-2 Days (Not a patient yet until 11/23/18) Gregorio Erickson MD [STAFF PHYSICIAN] - 12/12/18 3:45 pm Activity/Diet/Wound Care/Special Instructions: Orthopedic Discharge Instructions: 1. Wound care and infection precautions, keep incision dry and covered while showering, no lotions, creams, moisturizers. No soaking, pools, hot tubs. Do not scrub over incision. 2. Toe-touch weightbearing with walker 3. Ice and elevate when necessary. Do not exceed 20 minutes per hour with ice pack. 4. Utilize compression sleeve until seen at first follow up appointment. 5. Pain meds and anticoagulants per prescription. 6. Pain medication has potential to cause constipation. Increase oral fluid and fiber intake. Contact primary care provider if you have not had a bowel movement within 48 hours after discharge. 7. No anti-inflammatory medication until discussed at first post operative visit, this including Motrin, Aleve, Mobic, Diclofenac, Aspirin. 8. Follow up in office at 2 weeks postop with Ty Rivera PA-C 9. Follow up with your primary care doctor 7-10 days after discharge. 10. Contact [facility] with any questions, . Wound care instructions: 1. Please remove saravanan on 11/16/2018 Discharge Disposition: TRANSFER TO SNF/ECF
== END 2018-11-07 15:26 | disposition home health service (06) | DRG 481 ==
LOC: EC 18:45 → 4SSUR 21:02
PROVIDERS: ADMIT Orthopaedic Surgery; ATTEND Orthopaedic Surgery
PROC: 0QP704Z Removal of Internal Fixation Device from Left Upper Femur, Open Approach (ICD-10-PCS; 2018-11-02)
PROC: 0QS906Z Reposition Left Femoral Shaft with Intramedullary Internal Fixation Device, Open Approach (ICD-10-PCS; principal; 2018-11-02 10:20)
DX: S72.392A Other fracture of shaft of left femur, initial encounter for closed fracture (principal); D62 Acute posthemorrhagic anemia; D69.3 Immune thrombocytopenic purpura; I50.22 Chronic systolic (congestive) heart failure; N39.0 Urinary tract infection, site not specified; W18.30XA Fall on same level, unspecified, initial encounter; Y92.002 Bathroom of unspecified non-institutional (private) residence as the place of occurrence of the external cause; D50.9 Iron deficiency anemia, unspecified; D53.9 Nutritional anemia, unspecified; E53.8 Deficiency of other specified B group vitamins; E78.5 Hyperlipidemia, unspecified; F17.210 Nicotine dependence, cigarettes, uncomplicated; H91.90 Unspecified hearing loss, unspecified ear; I11.0 Hypertensive heart disease with heart failure; I25.10 Atherosclerotic heart disease of native coronary artery without angina pectoris; I25.2 Old myocardial infarction; I25.5 Ischemic cardiomyopathy; I27.20 Pulmonary hypertension, unspecified; I08.1 Rheumatic disorders of both mitral and tricuspid valves; I44.7 Left bundle-branch block, unspecified; K59.00 Constipation, unspecified; R04.0 Epistaxis; Z79.82 Long term (current) use of aspirin; Z79.899 Other long term (current) drug therapy; Z80.3 Family history of malignant neoplasm of breast; Z82.49 Family history of ischemic heart disease and other diseases of the circulatory system; Z90.710 Acquired absence of both cervix and uterus; Z95.5 Presence of coronary angioplasty implant and graft; Z91.81 History of falling; Z88.1 Allergy status to other antibiotic agents; Z88.5 Allergy status to narcotic agent; Z88.0 Allergy status to penicillin; Z88.8 Allergy status to other drugs, medicaments and biological substances; Z87.440 Personal history of urinary (tract) infections
CPT/HCPCS: 36415; 71045; 73502; 80048; 80053; 81001; 85025; 85027; 85610; 85730; 86850; 86900; 86901; 93005; 96374; 99285

== ENCOUNTER → 2018-12-15 | Outpatient (CLI) | payer MEDICARE ==
[2018-12-15 16:02] LABS: Basophils # (A) 0.1 k/uL (0-0.2); Basophils % (A) 1 %; Eosinophils % (A) 1 %; HCT 37.8 % (34.0-46.0); Lymphocytes # (A) 0.6 k/uL (1.0-4.8); Lymphocytes % (A) 16 %; MCH 31.8 pg (25.0-35.0); MCHC 32.9 g/dL (31.0-37.0); MCV 96.6 fL (80.0-100.0); Mean Platelet Volume 7.9; Monocytes # (A) 0.2 k/uL (0-1.0); Monocytes % (A) 6 %; Neutrophils # (A) 2.6 k/uL (1.3-7.7); Neutrophils % (A) 74 %; Poikilocytosis Slight; RBC 3.91 m/uL (3.80-5.40); RDW 14.8 % (11.5-15.5); WBC 3.5 k/uL (3.8-10.6)
[2018-12-15 16:06] LABS: HGB 12.4 gm/dL (11.4-16.0)
[2018-12-15 16:33] LABS: Anisocytosis (M) Present; Platelet Count 71 k/uL (150-450)
[2018-12-15 18:20] LABS: Erythrocyte Sedimentation Rate 8 mm/hr (0-20)
== END ==
LOC: LABWHC1 15:14
PROVIDERS: ATTEND Orthopaedic Surgery
DX: M25.50 Pain in unspecified joint (principal)
CPT/HCPCS: 36415; 85025; 85652; 86140

== ENCOUNTER 2019-01-20 14:05 | Observation (INO) | payer MEDICARE, OTHER ==
--- NOTE | 2019-01-20 15:04 | ED ---
SOB HPI - General Source: patient, family Mode of arrival: wheelchair Limitations: no limitations <Jelly Godfrey - Last Filed: 01/20/19 17:07> <Carolina Magallon - Last Filed: 01/23/19 01:41> - General Chief Complaint: Shortness of Breath Stated Complaint: CRISTIAN Time Seen by Provider: 01/20/19 14:26 - History of Present Illness Initial Comments: 78-year-old female with history of hypertension, coronary artery disease for stent presents emergency room today for chief complaint of increasing shortness of breath and orthopnea. Patient states that for the past 2 days she has noticed increased shortness of breath that began last night when lying flat. She states she feels so she is suffocating. Patient states she has a mild cough denies any hemoptysis. She states she has had bilateral lower extremity swelling for the past week. Patient denies any chest pain or pressure. Denies any back pain. Patient denies unilateral leg swelling. Patient states she feels like her lower abdomen swelling denies any abdominal pain. Patient states she was recently treated for urinary tract infection and he continues to have dysuria and urgency frequency. Patient denies fevers or flulike symptoms. When shortness of breath persisted today and patient began having to lie down with 3 pillows she presents emergency department for evaluation. Shortest breath is also exacerbated by walking short distances. Remaining review of systems negative upon arrival patient appears well but is sensitive distress. (Jelly Godfrey) - Related Data Home Medications Medication Instructions Recorded Confirmed Metoprolol Tartrate [Lopressor] 50 mg PO BID 03/09/15 01/20/19 Isosorbide Mononitrate ER [Imdur] 60 mg PO DAILY 10/30/15 01/20/19 Aspirin EC [Ecotrin Low Dose] 81 mg PO DAILY 09/12/18 01/20/19 Pravastatin Sodium [Pravachol] 80 mg PO HS 09/12/18 01/20/19 Lisinopril [Zestril] 10 mg PO DAILY 01/20/19 01/20/19 Nitroglycerin Sl Tabs [Nitrostat] 0.4 mg SUBLINGUAL Q5M PRN 01/20/19 01/20/19 Previous Rx's Medication Instructions Recorded Furosemide [Lasix] 40 mg PO DAILY #30 tab 01/22/19 Hydrocodone/Acetaminophen [[place] 1 tab PO Q6H PRN #12 tab 01/22/19 5-325] Allergies Allergy/AdvReac Type Severity Reaction Status Date / Time cephalexin monohydrate Allergy Rash/Hives/ Verified 01/20/19 16:31 [From Keflex] Swelling codeine Allergy Unknown Verified 01/20/19 16:31 doxepin Allergy Rash/Hives Verified 01/20/19 16:31 meperidine HCl [From Demerol] Allergy Rash/Hives Verified 01/20/19 16:31 methylprednisolone Allergy Rash/Hives Verified 01/20/19 16:31 [From Medrol] Opioids - Morphine Analogues Allergy Rash/Hives Verified 01/20/19 16:31 Penicillins Allergy Swelling Verified 01/20/19 16:31 pentazocine lactate Allergy Rash/Hives-Stomach Verified 01/20/19 16:31 [From Talwin] Upset propoxyphene napsylate Allergy Rash/Hives- Verified 01/20/19 16:31 [From Darvocet-N] Itch Review of Systems ROS Other: All systems not noted in ROS Statement are negative. <Jelly Godfrey - Last Filed: 01/20/19 17:07> ROS Other: All systems not noted in ROS Statement are negative. <Carolina Magallon - Last Filed: 01/23/19 01:41> ROS Statement: Those systems with pertinent positive or pertinent negative responses have been documented in the HPI. Past Medical History Past Medical History: Blood Disorder, Coronary Artery Disease (CAD), Hyperlipidemia, Hypertension, Myocardial Infarction ([place]) Additional Past Medical History / Comment(s): Thrombocytopenia-sees Dr. Kan. 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, ercp, left hip repair with rods 09-15-2018 Past Anesthesia/Blood Transfusion Reactions: No Reported Reaction Date of Last Stent Placement:: 1998 Past Psychological History: No Psychological Hx Reported Smoking Status: Current some day smoker Past Alcohol Use History: None Reported Past Drug Use History: None Reported - Past Family History Mother Family Medical History: Cancer Additional Family Medical History / Comment(s): Breast Ca Father Family Medical History: Myocardial Infarction ([place]) Additional Family Medical History / Comment(s): @ age 86 from [place] <Jelly Godfrey - Last Filed: 01/20/19 17:07> General Exam Limitations: no limitations <Jelly Godfrey - Last Filed: 01/20/19 17:07> - General Exam Comments Initial Comments: General: The patient is awake and alert, in no distress Eye: +3 mm pupils are equal, round and reactive to light, extra-ocular movements are intact. No nystagmus. There is normal conjunctiva bilaterally. No signs of icterus. Ears, nose, mouth and throat: There are moist mucous membranes and no oral lesions. Neck: The neck is supple, there is no tenderness or JVD. Cardiovascular: There is a regular rate and rhythm. No murmur, rub or gallop is appreciated. Respiratory: Respirations are non-labored, breath sounds are equal. B/l lower lung field rales appreciated No wheezes, stridor, or rhonchi. Gastrointestinal: Soft, non-distended, non-tender abdomen without masses or organomegaly noted. There is no rebound or guarding present. Large pannus Musculoskeletal: Normal ROM, no tenderness. Strength 5/5. Sensation intact. Pulses equal bilaterally 2+. Neurological: A&O x 3. CN II-XII intact grossly, There are no obvious motor or sensory deficits. Coordination appears grossly intact. Speech is normal. Skin: Skin is warm and dry and no rashes or lesions are noted. No LE edema. NO pain of calf or redness. Psychiatric: Cooperative, appropriate mood & affect, normal judgment. (Jelly Godfrey) Course Vital Signs 01/20/19 01/20/19 01/20/19 14:15 14:52 15:00 Temperature 97.5 F L Pulse Rate 67 75 62 Pulse Rate [ Pulse Oximetery ] Respiratory 18 33 H 31 H Rate Blood Pressure 153/74 145/68 Blood Pressure [Right Arm] O2 Sat by Pulse 97 Oximetry 01/20/19 01/20/19 01/20/19 16:00 16:45 17:06 Temperature 97.4 F L Pulse Rate 78 Pulse Rate [ 66 Pulse Oximetery ] Respiratory 18 20 Rate Blood Pressure 145/68 140/70 Blood Pressure 149/66 [Right Arm] O2 Sat by Pulse 96 96 Oximetry Medical Decision Making - Lab Data Result diagrams: 01/20/19 14:57 01/20/19 14:57 <Jelly Godfrey - Last Filed: 01/20/19 17:07> - Lab Data Result diagrams: 01/20/19 14:57 01/22/19 05:23 <Carolina Magallon - Last Filed: 01/23/19 01:41> - Medical Decision Making 78-year-old female presenting to the ER for evaluation of source of breath especially when lying flat. Fluid overload is evident on examination physically. Chest x-ray concerning for large pleural effusion. Patient has no history of fever or upper respiratory symptoms. I feel pneumonia is less likely diagnosis. Patient BNP elevated no previous for comparison no known history of CHF. Patient given 40 mg of IV Lasix. Troponin within acceptable limits, will trend. Patient denies chest pain or pressure. Patient actually well-appearing room air. EKG no findings consistent with acute coronary syndrome. No severe change from previous discussed the case with him provider and at this time we will admit patient for new onset CHF for cardiology evaluation and further management.. (Jelly Godfrey) I was available for consultation in the emergency department. The history and physical exam were done by the midlevel provider. I was consulted for this patients care. I reviewed the case with the midlevel provider and based on their presentation of the patient, I agree with the assessment, medical decision making and plan of care as documented. I evaluated the patient myself and agreed with hospital admission. Chart was dictated using [employer] dictation software. Attempts were made to correct any dictation errors however some typographical errors may persist. (Carolina Magallon) - Lab Data Lab Results 01/20/19 01/20/19 01/20/19 Range/Units 14:57 14:57 14:57 WBC 5.3 (3.8-10.6) k/uL RBC 4.20 (3.80-5.40) m/uL Hgb 13.3 (11.4-16.0) gm/dL Hct 39.4 (34.0-46.0) % MCV 93.9 (80.0-100.0) fL MCH 31.8 (25.0-35.0) pg MCHC 33.8 (31.0-37.0) g/dL RDW 15.2 (11.5-15.5) % Plt Count 60 L (150-450) k/uL Neutrophils % 81 % Lymphocytes % 9 % Monocytes % 6 % Eosinophils % 2 % Basophils % 0 % Neutrophils # 4.3 (1.3-7.7) k/uL Lymphocytes # 0.5 L (1.0-4.8) k/uL Monocytes # 0.3 (0-1.0) k/uL Eosinophils # 0.1 (0-0.7) k/uL Basophils # 0.0 (0-0.2) k/uL Manual Slide Review Performed Poikilocytosis Slight PT 12.7 H (9.0-12.0) sec INR 1.2 H (<1.2) APTT 28.7 (22.0-30.0) sec D-Dimer 3.28 H (<0.60) mg/L FEU Sodium 141 (137-145) mmol/L Potassium 4.2 (3.5-5.1) mmol/L Chloride 111 H (98-107) mmol/L Carbon Dioxide 25 (22-30) mmol/L Anion Gap 5 mmol/L BUN 12 (7-17) mg/dL Creatinine 0.60 (0.52-1.04) mg/dL Est GFR (CKD-EPI)AfAm >90 (>60 ml/min/1.73 sqM) Est GFR (CKD-EPI)NonAf 88 (>60 ml/min/1.73 sqM) Glucose 101 H (74-99) mg/dL Calcium 8.8 (8.4-10.2) mg/dL Magnesium 1.5 L (1.6-2.3) mg/dL Total Bilirubin 2.3 H (0.2-1.3) mg/dL AST 30 (14-36) U/L ALT 22 (9-52) U/L Alkaline Phosphatase 134 H (38-126) U/L Troponin I (0.000-0.034) ng/mL NT-Pro-B Natriuret Pep pg/mL Total Protein 6.3 (6.3-8.2) g/dL Albumin 3.1 L (3.5-5.0) g/dL Urine Color Urine Appearance (Clear) Urine pH (5.0-8.0) Ur Specific [place] (1.001-1.035) Urine Protein (Negative) Urine Glucose (UA) (Negative) Urine Ketones (Negative) Urine Blood (Negative) Urine Nitrite (Negative) Urine Bilirubin (Negative) Urine Urobilinogen (<2.0) mg/dL Ur Leukocyte Esterase (Negative) 01/20/19 01/20/19 01/20/19 Range/Units 14:57 14:57 16:20 WBC (3.8-10.6) k/uL RBC (3.80-5.40) m/uL Hgb (11.4-16.0) gm/dL Hct (34.0-46.0) % MCV (80.0-100.0) fL MCH (25.0-35.0) pg MCHC (31.0-37.0) g/dL RDW (11.5-15.5) % Plt Count (150-450) k/uL Neutrophils % % Lymphocytes % % Monocytes % % Eosinophils % % Basophils % % Neutrophils # (1.3-7.7) k/uL Lymphocytes # (1.0-4.8) k/uL Monocytes # (0-1.0) k/uL Eosinophils # (0-0.7) k/uL Basophils # (0-0.2) k/uL Manual Slide Review Poikilocytosis PT (9.0-12.0) sec INR (<1.2) APTT (22.0-30.0) sec D-Dimer (<0.60) mg/L FEU Sodium (137-145) mmol/L Potassium (3.5-5.1) mmol/L Chloride (98-107) mmol/L Carbon Dioxide (22-30) mmol/L Anion Gap mmol/L BUN (7-17) mg/dL Creatinine (0.52-1.04) mg/dL Est GFR (CKD-EPI)AfAm (>60 ml/min/1.73 sqM) Est GFR (CKD-EPI)NonAf (>60 ml/min/1.73 sqM) Glucose (74-99) mg/dL Calcium (8.4-10.2) mg/dL Magnesium (1.6-2.3) mg/dL Total Bilirubin (0.2-1.3) mg/dL AST (14-36) U/L ALT (9-52) U/L Alkaline Phosphatase (38-126) U/L Troponin I 0.014 (0.000-0.034) ng/mL NT-Pro-B Natriuret Pep 1160 pg/mL Total Protein (6.3-8.2) g/dL Albumin (3.5-5.0) g/dL Urine Color Yellow Urine Appearance Clear (Clear) Urine pH 7.5 (5.0-8.0) Ur Specific [place] 1.032 (1.001-1.035) Urine Protein Negative (Negative) Urine Glucose (UA) Negative (Negative) Urine Ketones Negative (Negative) Urine Blood Negative (Negative) Urine Nitrite Negative (Negative) Urine Bilirubin Negative (Negative) Urine Urobilinogen <2.0 (<2.0) mg/dL Ur Leukocyte Esterase Negative (Negative) - EKG Data EKG Comments: Ventricular rate 77bpm, IN interval 174ms, QRS duration 154ms, QT/QTc 440/497ms. Normal sinus noted LBBB. No St elevation or depression. EKG reviewed by myself and attending provider. (Jelly Godfrey) Disposition Is patient prescribed a controlled substance at d/c from ED?: No Time of Disposition: 16:04 <Jelly Godfrey - Last Filed: 01/20/19 17:07> <Carolina Magallon - Last Filed: 01/23/19 01:41> Clinical Impression: New onset of congestive heart failure, Pleural effusion, Shortness of breath, Orthopnea, Leg edema, Hypomagnesemia Disposition: ADMITTED IP TO THIS HOSP Condition: Stable
[2019-01-20 15:12] LABS: Basophils % (A) 0 %; Eosinophils # (A) 0.1 k/uL (0-0.7); Eosinophils % (A) 2 %; HCT 39.4 % (34.0-46.0); HGB 13.3 gm/dL (11.4-16.0); Lymphocytes # (A) 0.5 k/uL (1.0-4.8); Lymphocytes % (A) 9 %; MCH 31.8 pg (25.0-35.0); MCHC 33.8 g/dL (31.0-37.0); MCV 93.9 fL (80.0-100.0); Mean Platelet Volume 7.2; Monocytes # (A) 0.3 k/uL (0-1.0); Monocytes % (A) 6 %; Neutrophils # (A) 4.3 k/uL (1.3-7.7); Neutrophils % (A) 81 %; Poikilocytosis Slight; RDW 15.2 % (11.5-15.5); WBC 5.3 k/uL (3.8-10.6)
[2019-01-20 15:19] LABS: ALT 22 U/L (9-52); AST 30 U/L (14-36); African American GFR (CKD) >90 (>60 ml/min/1.73 sqM); Albumin 3.1 g/dL (3.5-5.0); Alkaline Phosphatase 134 U/L (38-126); Anion Gap 5 mmol/L; Blood Urea Nitrogen 12 mg/dL (7-17); Calcium 8.8 mg/dL (8.4-10.2); Carbon Dioxide 25 mmol/L (22-30); Chloride 111 mmol/L (98-107); Glucose 101 mg/dL (74-99); Magnesium 1.5 mg/dL (1.6-2.3); Non-African American GFR(CKD) 88 (>60 ml/min/1.73 sqM); Potassium 4.2 mmol/L (3.5-5.1); Sodium 141 mmol/L (137-145); Total Bilirubin 2.3 mg/dL (0.2-1.3); Total Protein 6.3 g/dL (6.3-8.2)
[2019-01-20 15:22] LABS: INR 1.2 (<1.2); Prothrombin Time 12.7 sec (9.0-12.0)
[2019-01-20 15:23] LABS: Partial Thromboplastin Time 28.7 sec (22.0-30.0)
--- NOTE | 2019-01-20 15:27 | XR ---
EXAMINATION TYPE: XR chest 2V DATE OF EXAM: 01/20/2019 COMPARISON: 11/01/2018 HISTORY: Difficulty breathing TECHNIQUE: Frontal and lateral views of the chest are obtained. FINDINGS: There is moderate size right pleural effusion. There is probably right lower lobe consolid ation. There is coarsening of the lung markings. Left lung is fairly clear. Heart size is normal. The re are chest leads. IMPRESSION: There is a new right lower lobe pneumonia and right pleural effusion compared to old exa m. Heart failure is possible also.
[2019-01-20 15:30] LABS: D-Dimer 3.28 mg/L FEU (<0.60)
[2019-01-20 15:40] LABS: Platelet Count 60 k/uL (150-450)
--- NOTE | 2019-01-20 15:59 | CT ---
EXAMINATION TYPE: CT angio chest DATE OF EXAM: 01/20/2019 3:51 PM COMPARISON: None HISTORY: SOB, elevated d-dimer CT DLP: 380.5 mGycm Automated exposure control for dose reduction was used. CONTRAST: CTA scan of the thorax is performed with IV Contrast, patient injected with 70 mL of Isovue 370, pulm onary embolism protocol. . There are 3-D post processed images. FINDINGS: There is a mild to moderate right pleural effusion. There is small left pleural effusion. There is no pericardial effusion. There is atelectasis in the right lower lobe. There are no hilar masses. There is no mediastinal adenopathy. There is no sign of aortic aneurysm or dissection. There is normal contrast opacification of the pulmonary arteries. There are no filling defects. There is hemangioma of the T9 vertebral body. Spleen measures 15 cm. IMPRESSION: NO EVIDENCE OF PULMONARY EMBOLISM. BILATERAL PLEURAL EFFUSIONS AND RIGHT BASILAR ATELECTASIS. THIS COULD RELATE TO CONGESTIVE HEART FAIL URE. ASYMMETRICALLY ENLARGED LEFT THYROID GLAND ALSO PRESENT ON OLD CT SCAN OF THE CERVICAL SPINE OF 2012 AND APPEARS NOT SIGNIFICANTLY DIFFERENT. THIS COULD RELATE TO A MULTINODULAR GOITER. SPLENOMEGAL Y.
[2019-01-20] MEDS ORDERED: FUROSEMIDE 10 MG/ML 4 ML VIAL IV STA (16:01)
[2019-01-20] MEDS ORDERED: NALOXONE 0.4 MG/ML 1 ML VIAL IV PRN (16:10)
[2019-01-20] MEDS ORDERED: NITROGLYCERIN SL TABS 0.4 MG TAB SUBLINGUAL PRN (16:15)
[2019-01-20 16:29] LABS: Appearance,Urine Clear (Clear); Bilirubin,Urine Negative (Negative); Blood,Urine Negative (Negative); Color,Urine Yellow; Glucose,Urine (UA) Negative (Negative); Ketones,Urine Negative (Negative); Leukocyte Esterase,Urine Negative (Negative); Nitrite,Urine Negative (Negative); PH, Urine 7.5 (5.0-8.0); Protein,Urine Negative (Negative); Specific Gravity,Urine 1.032 (1.001-1.035); Urobilinogen,Urine <2.0 mg/dL (<2.0)
--- NOTE | 2019-01-20 18:11 | P.HPIM ---
History of Present Illness H&P Date: 01/20/19 Chief Complaint: Shortness of breath This is a 78-year-old female with past medical history noted below significant for ischemic cardiomyopathy with left ventricular systolic dysfunction who presented to the emergency room with worsening shortness of breath and dyspnea. Patient said that her symptoms started a few days ago by hit her last night where she was unable to breathe. She reported orthopnea. She described a feeling as suffocation when she lay back. Patient said that after having her hip surgery in the summer she went to rehab at [facility] on the leg. Over there they took her off of her water pill and she was told that ''now that she is standing up and participating in physical therapy the water should go down with gravity down her legs''. Patient said that since September she noted that her legs are getting more puffy and now the swelling is above her knee. Patient was evaluated in the ER and was found to have elevated d-dimer. CT angiogram of the chest was negative for PE but showed bilateral pleural effusion with evidence of heart failure exacerbation. Patient was given one-time dose of Lasix in the ER and is admitted to the hospital for further management. Patient herself reports some intermittent dry cough. She denies any fevers or chills. No flulike symptoms. No chest pain or dizziness. She reported being compliant with her medication otherwise. She is a nonsmoker. Review of Systems Review of system: 14 points review of systems were obtained and were negative except to what were mentioned in the HPI. Past Medical History Past Medical History: Blood Disorder, Coronary Artery Disease (CAD), Hyperlipidemia, Hypertension, Myocardial Infarction ([place]) Additional Past Medical History / Comment(s): Thrombocytopenia-sees Dr. Kan. 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, 11-28-15 ercp, left hip repair with rods 09-15-2018 Past Anesthesia/Blood Transfusion Reactions: No Reported Reaction Date of Last Stent Placement:: 1998 Past Psychological History: No Psychological Hx Reported Smoking Status: Current some day smoker Past Alcohol Use History: None Reported Past Drug Use History: None Reported - Past Family History Mother Family Medical History: Cancer Additional Family Medical History / Comment(s): Breast Ca Father Family Medical History: Myocardial Infarction ([place]) Additional Family Medical History / Comment(s): @ age 86 from [place] Medications and Allergies Home Medications Medication Instructions Recorded Confirmed Type Metoprolol Tartrate [Lopressor] 50 mg PO BID 03/09/15 01/20/19 History Isosorbide Mononitrate ER [Imdur] 60 mg PO DAILY 10/30/15 01/20/19 History Aspirin EC [Ecotrin Low Dose] 81 mg PO DAILY 09/12/18 01/20/19 History Pravastatin Sodium [Pravachol] 80 mg PO HS 09/12/18 01/20/19 History Hydrocodone/Acetaminophen [[place] 1 tab PO Q6H PRN 01/20/19 01/20/19 History 5-325] Lisinopril [Zestril] 10 mg PO DAILY 01/20/19 01/20/19 History Nitroglycerin Sl Tabs [Nitrostat] 0.4 mg SUBLINGUAL Q5M PRN 01/20/19 01/20/19 H istory Allergies Allergy/AdvReac Type Severity Reaction Status Date / Time cephalexin monohydrate Allergy Rash/Hives/ Verified 01/20/19 16:31 [From Keflex] Swelling codeine Allergy Unknown Verified 01/20/19 16:31 doxepin Allergy Rash/Hives Verified 01/20/19 16:31 meperidine HCl [From Demerol] Allergy Rash/Hives Verified 01/20/19 16:31 methylprednisolone Allergy Rash/Hives Verified 01/20/19 16:31 [From Medrol] Opioids - Morphine Analogues Allergy Rash/Hives Verified 01/20/19 16:31 Penicillins Allergy Swelling Verified 01/20/19 16:31 pentazocine lactate Allergy Rash/Hives-Stomach Verified 01/20/19 16:31 [From Talwin] Upset propoxyphene napsylate Allergy Rash/Hives- Verified 01/20/19 16:31 [From Darvocet-N] Itch Physical Exam Vitals: Vital Signs Temp Pulse Pulse Resp BP BP Pulse Ox 01/20/19 17:06 78 20 140/70 96 01/20/19 16:45 97.4 F L 66 18 149/66 96 01/20/19 16:00 145/68 01/20/19 15:00 62 31 H 145/68 01/20/19 14:52 75 33 H 01/20/19 14:15 97.5 F L 67 18 153/74 97 Intake and Output 01/20/19 01/20/19 01/20/19 06:59 14:59 22:59 Other: Weight 59.421 kg General: The patient is awake and alert, in no distress Eye: there is normal conjunctiva bilaterally. Neck: The neck is supple, there is no JVD. Cardiovascular: Normal S1-S2, no S3-S4, no murmurs. Respiratory: Scattered bibasilar crackles Gastrointestinal: Abdomen is soft, nontender Musculoskeletal: There is +3 pitting pedal edema up to the knees bilaterally Neurological:. Speech is normal. Skin: Skin is warm and dry Results CBC & Chem 7: 01/20/19 14:57 01/20/19 14:57 Labs: Abnormal Lab Results - Last 24 Hours (Table) 01/20/19 01/20/19 01/20/19 Range/Units 14:57 14:57 14:57 Plt Count 60 L (150-450) k/uL Lymphocytes # 0.5 L (1.0-4.8) k/uL PT 12.7 H (9.0-12.0) sec INR 1.2 H (<1.2) D-Dimer 3.28 H (<0.60) mg/L FEU Chloride 111 H (98-107) mmol/L Glucose 101 H (74-99) mg/dL Magnesium 1.5 L (1.6-2.3) mg/dL Total Bilirubin 2.3 H (0.2-1.3) mg/dL Alkaline Phosphatase 134 H (38-126) U/L Albumin 3.1 L (3.5-5.0) g/dL Thrombosis Risk Factor Assmnt - Choose All That Apply Any of the Below Risk Factors Present?: Yes Each Risk Factor Represents 3 Points: Age 75 years or older Thrombosis Risk Factor Assessment Total Risk Factor Score: 3 Thrombosis Risk Factor Assessment Level: Moderate Risk Assessment and Plan Assessment: 1. Acute systolic heart failure exacerbation: BNP is normal for her age but patient is presenting with classic clinical picture with orthopnea and significant lower extremity edema. continue IV Lasix 40 mg twice daily. Strict I's and O's. Daily weights. Echocardiogram in September showed estimated EF 4045%. 2. Ischemic cardiomyopathy with history of coronary artery disease and prior stent placement 3. Essential hypertension: Blood pressure within acceptable range 4. Hyperlipidemia 5. Hypomagnesemia, replaced. Repeat lab work in the morning 6. Chronic thyroid goiter noted on CT angiogram unchanged from prior imaging. Will need follow-up outpatient Today, I reviewed her medication list and lab work results. Cardiology consulted by ER staff, appreciate recommendations. I updated the patient and her at bedside about her current clinical condition. I answered all their questions to their satisfaction.
[2019-01-20] MEDS: PRAVASTATIN SODIUM 80 MG TAB PO SCH (21:49)
[2019-01-20] MEDS: HYDROcodone/APAP 5-325MG 1 EACH TAB PO PRN (21:49)
[2019-01-20] MEDS: METOPROLOL TARTRATE 50 MG TAB PO SCH (21:49)
[2019-01-20] MEDS: FUROSEMIDE 10 MG/ML 4 ML VIAL IV SCH (21:49)
[2019-01-20] MEDS: MAGNESIUM OXIDE 400 MG TAB PO SCH (21:51)
[2019-01-20] MEDS: MAGNESIUM SULFATE-D5W PMX 1 GM in DEXTROSE/WATER 1 100ML.BAG IVPB SCH ×2 (21:51→23:11)
[2019-01-21] MEDS: HYDROcodone/APAP 5-325MG 1 EACH TAB PO PRN ×3 (04:14→21:48)
[2019-01-21 04:15] LABS: African American GFR (CKD) >90 (>60 ml/min/1.73 sqM); Anion Gap 4 mmol/L; Blood Urea Nitrogen 13 mg/dL (7-17); Calcium 8.8 mg/dL (8.4-10.2); Carbon Dioxide 30 mmol/L (22-30); Chloride 103 mmol/L (98-107); Cholesterol 105 mg/dL (<200); Glucose 86 mg/dL (74-99); HDL Cholesterol 44 mg/dL (40-60); LDL Cholesterol,Calculated 46 mg/dL (0-99); Non-African American GFR(CKD) 86 (>60 ml/min/1.73 sqM); Potassium 3.6 mmol/L (3.5-5.1); Sodium 137 mmol/L (137-145); Triglycerides 75 mg/dL (<150)
[2019-01-21 06:01] LABS: Glucose,Whole Blood 93 mg/dL (75-99)
[2019-01-21] MEDS: FUROSEMIDE 10 MG/ML 4 ML VIAL IV SCH (08:14)
[2019-01-21] MEDS: ASPIRIN 81 MG PO SCH (08:15)
[2019-01-21] MEDS: MAGNESIUM OXIDE 400 MG TAB PO SCH ×2 (08:15→20:25)
[2019-01-21] MEDS: ISOSORBIDE MONONITRATE ER 60 MG TAB.ER.24H PO SCH (08:15)
[2019-01-21] MEDS: METOPROLOL TARTRATE 50 MG TAB PO SCH ×2 (08:15→20:24)
[2019-01-21] MEDS: LISINOPRIL 10 MG TAB PO SCH (08:15)
[2019-01-21] MEDS ORDERED: ASPIRIN 325 MG TAB PO SCH (09:00)
--- NOTE | 2019-01-21 10:49 | P.CRDCN ---
History of Present Illness History of present illness: HISTORY OF PRESENTING ILLNESS This is a pleasant 78-year-old female past medical history significant for coronary artery disease status post stent placement to the RCA and chronically occluded OM, ischemic cardiomyopathy, hypertension, dyslipidemia and chronic nicotine dependence. She presented with was of breath. She follows in the office with Dr. Erickson. We have been asked to see him in consultation for heart failure. She is seen and examined laying flat in bed in no acute distress. She states for the previous 2 days she has felt increasingly short of breath with lower extremity edema. She presented to the hospital and received IV Lasix. She states she's been up to the bathroom quite frequently and feels back to normal this morning. She has no further symptoms of shortness of breath. She does have ongoing lower extremity edema however the patient states this has improved. She denies any chest discomfort, dizziness or palpitations. DIAGNOSTICS EKG reveals sinus mechanism with left bundle branch block, chronic. Chest xray right lower lobe pneumonia and right pleural effusion. CTA chest negative for pulmonary embolism, bilateral pleural effusions and right basilar atelectasis, asymmetrically enlarged thyroid gland. Laboratory reviewed, WBC 5.3, hemoglobin 13.3, platelet 60, d-dimer 3.28, sodium 137, potassium 3.6, creatinine 0.65, magnesium on admission 1. 5 repeat today after replacement 1.9, cardiac enzymes negative 3, proBNP 1160, LDL 46, HDL 44. Current cardiac medications include aspirin 81 mg daily, Imdur 60 mg daily, li sinopril 10 mg daily, Lopressor 50 mg twice a day and pravastatin 80 mg daily. Most recent echocardiogram obtained September 2018 reveals global LV hypokinesia, ejection fraction 40-45%. REVIEW OF SYSTEMS At the time of my exam: CONSTITUTIONAL: Denies fever or chills. CARDIOVASCULAR: Denies chest pain, shortness of breath, orthopnea, PND or palpitations. RESPIRATORY: Denies cough. GASTROINTESTINAL: Denies abdominal pain, diarrhea, constipation, nausea or vomiting. MUSCULOSKELETAL: Denies myalgias. NEUROLOGIC: Denies numbness, tingling or weakness. ENDOCRINE: Denies fatigue, weight change, polydipsia or polyurina. GENITOURINARY: Denies burning, hematuria or urgency with micturation. HEMATOLOGIC: Denies history of anemia or bleeding. PHYSICAL EXAMINATION Blood pressure 121/55 heart rate 77 afebrile and maintaining oxygen saturaiton on room air. CONSTITUTIONAL: No apparent distress. HEENT: Head is normocephalic. Pupils are equal, round. Sclerae anicteric. Mucous membranes of the mouth are moist. No JVD. No carotid bruit. CHEST EXAMINATION: Lungs are clear to auscultation. No chest wall tenderness is noted on palpation or with deep breathing. Diminished bilaterally. HEART EXAMINATION: Regular rate and rhythm. S1, S2 heard. No murmurs, gallops or rub. ABDOMEN: Soft, nontender. Positive bowel sounds. EXTREMITIES: 2+ peripheral pulses, 1+ bilateral lower extremity edema and no calf tenderness. NEUROLOGIC EXAMINATION: Patient is awake, alert and oriented x3. ASSESSMENT Acute on chronic systolic heart failure, improved Chronic ischemic cardiomyopathy, EF 40-45% History of coronary artery disease Thrombocytopenia, follows with Dr. Kan Hypertension Dyslipidemia Chronic nicotine dependence PLAN Give additional dose of IV Lasix this morning. Transition to oral 40 mg daily t o start tomorrow. If she remains stable this morning and early afternoon she may be discharged from a cardiac perspective. Follow up in the office with Dr. Erickson. Thank you kindly for this consultation. Nurse Practitioner note has been reviewed, I agree with a documented findings and plan of care. Patient was seen and examined. Past Medical History Past Medical History: Blood Disorder, Coronary Artery Disease (CAD), Hyp erlipidemia, Hypertension, Myocardial Infarction ([place]) Additional Past Medical History / Comment(s): Thrombocytopenia-sees Dr. Kan. 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, 11-28-15 ercp, left hip repair with rods 09-15-2018 Past Anesthesia/Blood Transfusion Reactions: No Reported Reaction Date of Last Stent Placement:: 1998 Past Psychological History: No Psychological Hx Reported Smoking Status: Current some day smoker Past Alcohol Use History: None Reported Past Drug Use History: None Reported - Past Family History Mother Family Medical History: Cancer Additional Family Medical History / Comment(s): Breast Ca Father Family Medical History: Myocardial Infarction ([place]) Additional Family Medical History / Comment(s): @ age 86 from [place] Medications and Allergies Home Medications Medication Instructions Recorded Confirmed Type Metoprolol Tartrate [Lopressor] 50 mg PO BID 03/09/15 01/20/19 History Isosorbide Mononitrate ER [Imdur] 60 mg PO DAILY 10/30/15 01/20/19 History Aspirin EC [Ecotrin Low Dose] 81 mg PO DAILY 09/12/18 01/20/19 History Pravastatin Sodium [Pravachol] 80 mg PO HS 09/12/18 01/20/19 History Hydrocodone/Acetaminophen [[place] 1 tab PO Q6H PRN 01/20/19 01/20/19 History 5-325] Lisinopril [Zestril] 10 mg PO DAILY 01/20/19 01/20/19 History Nitroglycerin Sl Tabs [Nitrostat] 0.4 mg SUBLINGUAL Q5M PRN 01/20/19 01/20/19 History Allergies Allergy/AdvReac Type Severity Reaction Status Date / Time cephalexin monohydrate Allergy Rash/Hives/ Verified 01/20/19 16:31 [From Keflex] Swelling codeine Allergy Unknown Verified 01/20/19 16:31 doxepin Allergy Rash/Hives Verified 01/20/19 16:31 meperidine HCl [From Demerol] Allergy Rash/Hives Verified 01/20/19 16:31 methylprednisolone Allergy Rash/Hives Verified 01/20/19 16:31 [From Medrol] Opioids - Morphine Analogues Allergy Rash/Hives Verified 01/20/19 16:31 Penicillins Allergy Swelling Verified 01/20/19 16:31 pentazocine lactate Allergy Rash/Hives-Stomach Verified 01/20/19 16:31 [From Talwin] Upset propoxyphene napsylate Allergy Rash/Hives- Verified 01/20/19 16:31 [From Darvocet-N] Itch Physical Exam Vitals: Vital Signs Temp Pulse Pulse Resp BP BP Pulse Ox 01/21/19 08:00 97.4 F L 77 18 121/55 97 01/21/19 04:00 97.7 F 68 18 133/61 96 01/21/19 00:00 97.6 F 69 18 152/68 95 01/20/19 20:00 97.5 F L 81 18 169/74 98 01/20/19 17:06 78 20 140/70 96 01/20/19 16:45 97.4 F L 66 18 149/66 96 01/20/19 16:00 145/68 01/20/19 15:00 62 31 H 145/68 01/20/19 14:52 75 33 H 01/20/19 14:15 97.5 F L 67 18 153/74 97 Intake and Output 01/20/19 01/21/19 01/21/19 22:59 06:59 14:59 Intake Total 780 200 476 Output Total 1999 Balance 780 -1800 476 Intake: Intake, IV Titration 200 Amount Magnesium Sulfate-D5w Pmx 200 1 gm In Dextrose/Water 1 100ml.bag @ 100 mls/hr IVPB Q1H [facility] Rx#: [id number] Oral 780 476 Output: Urine 1999 Other: Voiding Method Bedside Commode Bedside Commode # Voids 1 1 Weight 71.5 kg Results 01/20/19 14:57 01/21/19 03:33 Cardiac Enzymes 01/20/19 01/20/19 01/20/19 Range/Units 14:57 14:57 20:53 AST 30 (14-36) U/L Troponin I 0.014 0.012 (0.000-0.034) ng/mL 01/21/19 Range/Units 03:33 AST (14-36) U/L Troponin I 0.014 (0.000-0.034) ng/mL Coagulation 01/20/19 Range/Units 14:57 PT 12.7 H (9.0-12.0) sec APTT 28.7 (22.0-30.0) sec Lipids 01/21/19 Range/Units 03:33 Triglycerides 75 (<150) mg/dL Cholesterol 105 (<200) mg/dL HDL Cholesterol 44 (40-60) mg/dL CBC 01/20/19 Range/Units 14:57 WBC 5.3 (3.8-10.6) k/uL RBC 4.20 (3.80-5.40) m/uL Hgb 13.3 (11.4-16.0) gm/dL Hct 39.4 (34.0-46.0) % Plt Count 60 L (150-450) k/uL Comprehensive Metabolic Panel 01/20/19 01/21/19 Range/Units 14:57 03:33 Sodium 141 137 (137-145) mmol/L Potassium 4.2 3.6 (3.5-5.1) mmol/L Chloride 111 H 103 (98-107) mmol/L Carbon Dioxide 25 30 (22-30) mmol/L BUN 12 13 (7-17) mg/dL Creatinine 0.60 0.65 (0.52-1.04) mg/dL Glucose 101 H 86 (74-99) mg/dL Calcium 8.8 8.8 (8.4-10.2) mg/dL AST 30 (14-36) U/L ALT 22 (9-52) U/L Alkaline Phosphatase 134 H (38-126) U/L Total Protein 6.3 (6.3-8.2) g/dL Albumin 3.1 L (3.5-5.0) g/dL Current Medications Generic Name Dose Route Start Last Admin Trade Name Freq PRN Reason Stop Dose Admin Hydrocodone Bitart/Acetaminophen 1 each 01/20/19 18:02 01/21/19 10:37 [place] 5-325 PO 1 each Q6H PRN Administration MODERATE Pain Aspirin 81 mg 01/21/19 09:00 01/21/19 08:15 Aspirin PO 81 mg DAILY [facility]ONI Administration Furosemide 40 mg 01/20/19 21:00 01/21/19 08:14 Lasix IV 40 mg Q12HR [facility]ONI Administration Isosorbide Mononitrate 60 mg 01/21/19 09:00 01/21/19 08:15 Imdur PO 60 mg DAILY RONI Administration Lisinopril 10 mg 01/21/19 09:00 01/21/19 08:15 Zestril PO 10 mg DAILY RONI Administration Magnesium Oxide 400 mg 01/20/19 21:00 01/21/19 08:15 Mag-Ox PO 400 mg BID RONI Administration Metoprolol Tartrate 50 mg 01/20/19 21:00 01/21/19 08:15 Lopressor PO 50 mg BID RONI Administration Naloxone HCl 0.2 mg 01/20/19 16:10 Narcan IV Q2M PRN Opioid Reversal Nitroglycerin 0.4 mg 01/20/19 16:15 Nitrostat SUBLINGUAL Q5M PRN Chest Pain Pravastatin Sodium 80 mg 01/20/19 21:00 01/20/19 21:49 Pravachol PO 80 mg HS RONI Administration Intake and Output 01/20/19 01/21/19 01/21/19 22:59 06:59 14:59 Intake Total 780 200 476 Output Total 1999 Balance 780 -1800 476 Intake: Intake, IV Titration 200 Amount Magnesium Sulfate-D5w Pmx 200 1 gm In Dextrose/Water 1 100ml.bag @ 100 mls/hr IVPB Q1H [facility] Rx#: [id number] Oral 780 476 Output: Urine 1999 Other: Voiding Method Bedside Commode Bedside Commode # Voids 1 1 Weight 71.5 kg 01/20/19 14:57 01/21/19 03:33
--- NOTE | 2019-01-21 11:23 | P.PN ---
Subjective Progress Note Date: 01/21/19 Patient is feeling better today. She is reporting less orthopnea. She is diuresing well. No acute events overnight reported by nursing staff. Objective - Vital Signs Vital signs: Vital Signs Temp 97.4 F L 01/21/19 08:00 Pulse 77 01/21/19 08:00 Resp 18 01/21/19 08:00 BP 121/55 01/21/19 08:00 Pulse Ox 97 01/21/19 08:00 Intake & Output 01/20/19 01/21/19 01/21/19 18:59 06:59 18:59 Intake Total 980 476 Output Total 1999 Balance -1020 476 Weight 59.421 kg 71.5 kg Intake: Intake, IV Titration 200 Amount Magnesium Sulfate-D5w Pmx 200 1 gm In Dextrose/Water 1 100ml.bag @ 100 mls/hr IVPB Q1H [facility] Rx#: [id number] Oral 780 476 Output: Urine 1999 Other: Voiding Method Bedside Commode # Voids 1 - Exam General: The patient is awake and alert, in no distress Eye: there is normal conjunctiva bilaterally. Neck: The neck is supple, there is no JVD. Cardiovascular: Normal S1-S2, no S3-S4, no murmurs. Respiratory: Lungs clear to auscultation bilaterally Gastrointestinal: Abdomen is soft, nontender Musculoskeletal: There is +2 pedal edema up to the midshin Neurological:. Speech is normal. Skin: Skin is warm and dry - Labs CBC & Chem 7: 01/20/19 14:57 01/21/19 03:33 Labs: Abnormal Lab Results - Last 24 Hours (Table) 01/20/19 01/20/19 01/20/19 Range/Units 14:57 14:57 14:57 Plt Count 60 L (150-450) k/uL Lymphocytes # 0.5 L (1.0-4.8) k/uL PT 12.7 H (9.0-12.0) sec INR 1.2 H (<1.2) D-Dimer 3.28 H (<0.60) mg/L FEU Chloride 111 H (98-107) mmol/L Glucose 101 H (74-99) mg/dL Magnesium 1.5 L (1.6-2.3) mg/dL Total Bilirubin 2.3 H (0.2-1.3) mg/dL Alkaline Phosphatase 134 H (38-126) U/L Albumin 3.1 L (3.5-5.0) g/dL 01/20/19 Range/Units 18:15 Plt Count (150-450) k/uL Lymphocytes # (1.0-4.8) k/uL PT (9.0-12.0) sec INR (<1.2) D-Dimer (<0.60) mg/L FEU Chloride (98-107) mmol/L Glucose (74-99) mg/dL Magnesium 1.4 L (1.6-2.3) mg/dL Total Bilirubin (0.2-1.3) mg/dL Alkaline Phosphatase (38-126) U/L Albumin (3.5-5.0) g/dL Assessment and Plan Assessment: This is a 78-year-old female with past medical history noted below who presented to the emergency room with worsening shortness of breath and orthopnea. Patient was taken off of her Lasix since the summer. She was evaluated in the ER and admitted to the hospital for further management of her medical problems noted below. 1. Acute systolic heart failure exacerbation: Patient is diuresing well. Symptoms are improving gradually. continue IV Lasix 40 mg twice daily. Strict I's and O's. Daily weights. Echocardiogram in September showed estimated EF 40-45%. 2. Ischemic cardiomyopathy with history of coronary artery disease and prior stent placement 3. Essential hypertension: Blood pressure within acceptable range 4. Hyperlipidemia 5. Hypomagnesemia, replaced. Repeat lab work in the morning 6. Chronic thyroid goiter noted on CT angiogram unchanged from prior imaging. Will need follow-up outpatient 7. Chronic thrombocytopenia with underlying ITP Today, I reviewed her medication list and lab work results. Cardiology consulted by ER staff, appreciate recommendations. Continue diuresis with IV Lasix and plan to transition to oral Lasix tomorrow. Anticipate discharge home tomorrow if continues to improve.
[2019-01-21 14:09] VITALS: BMI 29.7
[2019-01-21] MEDS: PRAVASTATIN SODIUM 80 MG TAB PO SCH (20:25)
[2019-01-22 06:56] LABS: African American GFR (CKD) >90 (>60 ml/min/1.73 sqM); Anion Gap 6 mmol/L; Blood Urea Nitrogen 15 mg/dL (7-17); Calcium 8.3 mg/dL (8.4-10.2); Carbon Dioxide 29 mmol/L (22-30); Chloride 104 mmol/L (98-107); Glucose 83 mg/dL (74-99); Non-African American GFR(CKD) 86 (>60 ml/min/1.73 sqM); Phosphorus 3.3 mg/dL (2.5-4.5); Potassium 3.4 mmol/L (3.5-5.1); Sodium 139 mmol/L (137-145)
[2019-01-22 08:31] VITALS: RESP 16; TEMP 97.5
[2019-01-22] MEDS: ASPIRIN 81 MG PO SCH (08:32)
[2019-01-22] MEDS: LISINOPRIL 10 MG TAB PO SCH (08:32)
[2019-01-22] MEDS: HYDROcodone/APAP 5-325MG 1 EACH TAB PO PRN (08:32)
[2019-01-22] MEDS: MAGNESIUM OXIDE 400 MG TAB PO SCH (08:32)
[2019-01-22] MEDS: METOPROLOL TARTRATE 50 MG TAB PO SCH (08:33)
[2019-01-22] MEDS: ISOSORBIDE MONONITRATE ER 60 MG TAB.ER.24H PO SCH (08:33)
[2019-01-22] MEDS ORDERED: FUROSEMIDE 40 MG TAB PO SCH (09:00)
[2019-01-22] MEDS ORDERED: POTASSIUM CHLORIDE ER 20 MEQ TAB.ER PO STA (10:00)
--- NOTE | 2019-01-22 11:06 | P.DS ---
Providers Date of admission: 01/20/19 16:29 Expected date of discharge: 01/22/19 Attending physician: Torsten Quiroz Consults: 01/20/19 16:14 Consult Physician Routine Consulting Provider: Helder Ibrahim Consult Reason/Comments: new onset CHF, previous STENT Do you want consulting provider notified?: Yes Primary care physician: [facility] Course: There is a 78-year-old female with PMH of CAD post stent placement, hypertension, dyslipidemia, thrombocytopenia sees Dr. Kan, ischemic cardiomyopathy with systolic dysfunction, history of thyroid tumor removal and left hip fracture presented to the ED for worsening shortness of breath and dyspnea. Patient also reported lower extremity swelling. In the ED, patient was noted to have elevated d-dimer. CTA of the chest showed bilateral pleural effusion with evidence of heart failure. Patient was initially diuresed with Lasix 40 mg IV twice a day and cardiology was consulted. Her Lasix was eventually transitioned to oral. She had a recent echocardiogram in September that showed EF 40-45% with diastolic dysfunction. Troponin was 0.014, 0.012, 0.014 and ACS was ruled out. Lipid panel was obtained which showed total cholesterol of 105 and LDL 46. Magnesium was initially low at 1.4 which was replaced and within normal limits on discharge. Patient was seen and examined. No acute events overnight. Patient reports considerable improvement in her breathing since admission. States that she is at baseline. She denies any chest pain, shortness of breath or palpitations. No nausea or vomiting. No fever or chills. General: [non toxic], [no distress], [appears at stated age] Derm: [warm], [dry] Head: [atraumatic], [normocephalic], [symmetric] Eyes: [EOMI], [no lid lag], [anicteric sclera] Mouth: [no lip lesion], [mucus membranes moist] Cardiovascular: [S1S2 reg], [no murmur], [positive DP pulse bilateral], Lungs: [Decreased breath sounds bilateral], [no rhonchi, no rales] , [no accessory muscle use] Abdominal: [soft], [ nontender to palpation], [no guarding], [no appreciable organomegaly] Ext: [no gross muscle atrophy], [2+ lower extremity pitting edema, worse on the right], [no contractures] Neuro: [no focal neuro deficits] Psych: [Alert], [oriented], [appropriate affect] Assessment and plan Acute on chronic systolic and diastolic CHF exacerbation Lower extremity swelling, right greater than left Hypokalemia CAD with stent placement Hypertension Thrombocytopenia History of left hip fracture As seen on chest x-ray and CTA chest. Was not on Lasix at home. Plans: Transitioned to Lasix by mouth this morning. Continue ADOLFO inhibitor. Continue beta magnus. Strict intake and output take. Daily weights. Needs follow-up with cardiology in the outpatient setting. Follow repeat chest x-ray this morning. Plans: Follow duplex bilateral. Potassium 3.4. Likely due to Lasix. Plans: Replace by mouth. Repeat BMP tomorrow, to be followed with PCP. Plans: Continue aspirin, pravastatin and beta magnus. Follow cardiology in the outpatient setting. BP well-controlled. Plans: Continue antihypertensives as above. Platelet 60. No signs of active bleeding. Plans: Follow Dr. Kan in the outpatient setting. Plans: Follow orthopedic surgery in the outpatient setting. [Patient shows considerable improvement in her breathing. Has uneven leg swelling, duplex pending. Follow chest x-ray this morning. Likely DC this afternoon.] Pertinent Studies: Chest x-ray, chest CTA, venous duplex Patient Condition at Discharge: Stable Plan - Discharge Summary Discharge Rx Participant: No New Discharge Prescriptions: New Furosemide [Lasix] 40 mg PO DAILY #30 tab Continue Metoprolol Tartrate [Lopressor] 50 mg PO BID Isosorbide Mononitrate ER [Imdur] 60 mg PO DAILY Pravastatin Sodium [Pravachol] 80 mg PO HS Aspirin EC [Ecotrin Low Dose] 81 mg PO DAILY Nitroglycerin Sl Tabs [Nitrostat] 0.4 mg SUBLINGUAL Q5M PRN PRN Reason: Chest Pain Lisinopril [Zestril] 10 mg PO DAILY Hydrocodone/Acetaminophen [[place] 5-325] 1 tab PO Q6H PRN #12 tab PRN Reason: Pain Discharge Medication List Metoprolol Tartrate [Lopressor] 50 mg PO BID 03/09/15 [History] Isosorbide Mononitrate ER [Imdur] 60 mg PO DAILY 10/30/15 [History] Aspirin EC [Ecotrin Low Dose] 81 mg PO DAILY 09/12/18 [History] Pravastatin Sodium [Pravachol] 80 mg PO HS 09/12/18 [History] Lisinopril [Zestril] 10 mg PO DAILY 01/20/19 [History] Nitroglycerin Sl Tabs [Nitrostat] 0.4 mg SUBLINGUAL Q5M PRN 01/20/19 [History] Furosemide [Lasix] 40 mg PO DAILY #30 tab 01/22/19 [Rx] Hydrocodone/Acetaminophen [[place] 5-325] 1 tab PO Q6H PRN #12 tab 01/22/19 [Rx] Follow up Appointment(s)/Referral(s): Gregorio Erickson MD [STAFF PHYSICIAN] - 02/05/19 2:15 pm (Tuesday ) Jose Hicks [Primary Care Provider] - 1-2 days Ambulatory/Diagnostic Orders: Basic Metabolic Panel [LAB.AMB] Time Frame: 1 Day, Location: None Selected Patient Instructions/Handouts: Heart Failure (DC) Activity/Diet/Wound Care/Special Instructions: Diet: Cardiac, low-salt Follow-up PCP within 3 days of discharge. Follow-up cardiology within 1 week of discharge. Repeat BMP within 3 days. Follow-up results with PCP. Take all medications as advised. Discharge Disposition: HOME SELF-CARE
--- NOTE | 2019-01-22 12:01 | P.PN ---
Subjective Progress Note Date: 01/22/19 This is a pleasant 78-year-old female past medical history significant for coronary artery disease status post stent placement to the RCA and chronically occluded OM, ischemic cardiomyopathy, hypertension, dyslipidemia and chronic nicotine dependence. She presented with was of breath. She follows in the office with Dr. Erickson. Cardiology consultation was requested for heart failure exacerbation. Patient was initiated on IV Lasix and this morning is on by mouth diuretics. She is lying flat in bed at the time of my examination this morning and has no shortness of breath. Edema in her lower extremities has improved significantly according to the patient, she continues to have trace edema bilaterally. Blood pressure this morning 120/50 with a heart rate of 60, 93% on room air. Sodium 139, potassium 3.4, BUN 15 and creatinine 0.6. Objective - Vital Signs Vital signs: Vital Signs Temp 97.5 F L 01/22/19 08:00 Pulse 68 01/22/19 08:00 Resp 16 01/22/19 11:52 BP 119/55 01/22/19 08:00 Pulse Ox 93 L 01/22/19 08:00 Intake & Output 01/21/19 01/22/19 01/22/19 18:59 06:59 18:59 Intake Total 1706 230 118 Output Total 500 700 300 Balance 1206 470 -182 Weight 71.5 kg 67.9 kg Intake: Oral 1706 230 118 Output: Urine 500 700 300 Other: Voiding Method Toilet Toilet # Voids 2 - Exam CONSTITUTIONAL: No apparent distress. HEENT: Head is normocephalic. Pupils are equal, round. Sclerae anicteric. Mucous membranes of the mouth are moist. No JVD. No carotid bruit. CHEST EXAMINATION: Lungs are clear to auscultation. No chest wall tenderness is noted on palpation or with deep breathing. HEART EXAMINATION: Regular rate and rhythm. S1, S2 heard. No murmurs, gallops or rub. ABDOMEN: Soft, nontender. Positive bowel sounds. EXTREMITIES: 2+ peripheral pulses, trace bilateral lower extremity edema and no calf tenderness. NEUROLOGIC EXAMINATION: Patient is awake, alert and oriented x3. - Labs CBC & Chem 7: 01/20/19 14:57 01/22/19 05:23 Labs: Abnormal Lab Results - Last 24 Hours (Table) 11/11/19 Range/Units 05:23 Potassium 3.4 L (3.5-5.1) mmol/L Calcium 8.3 L (8.4-10.2) mg/dL Assessment and Plan Plan: ASSESSMENT and plan #1Acute on chronic systolic heart failure, improved #2Chronic ischemic cardiomyopathy, EF 40-45% #3History of coronary artery disease #4Thrombocytopenia, follows with Dr. Kan #5Hypertension #6Dyslipidemia #7Chronic nicotine dependence Plan From cardiology's perspective, patient may be able to be discharged home today. We'll make her a follow-up appointment in the office to see Dr. Erickson post discharge. DNP note has been reviewed, I agree with a documented findings and plan of care. Patient was seen and examined.
--- NOTE | 2019-01-22 12:02 | US ---
EXAMINATION TYPE: US venous doppler duplex LE DATE OF EXAM: 01/22/2019 11:47 AM COMPARISON: NONE CLINICAL HISTORY: lower extremity swelling. SIDE PERFORMED: Bilateral TECHNIQUE: The lower extremity deep venous system is examined utilizing real time linear array sonog asher with graded compression, doppler sonography and color-flow sonography. VESSELS IMAGED: External Iliac Vein (EIV) Common Femoral Vein Deep Femoral Vein Greater Saphenous Vein * Femoral Vein Popliteal Vein Small Saphenous Vein * Proximal Calf Veins (* superficial vessels) Grayscale, color doppler, spectral doppler imaging performed of the deep veins of the lower extremiti es. There is normal flow, compressibility, vascular waveforms. Right Leg: Negative for DVT Left Leg: Negative for DVT. Probable Thacker's cyst noted on left measuring 4.7 x 1.7 x 2.5cm. Subcutaneous edema in left pop fossa with patient unable to adduct leg. Unable to obtain color dopple r view here. IMPRESSION: 1. No sonographic evidence of deep venous thrombosis within either the visualized bilateral large kid neys. 2. Subcutaneous edema and possible fluid collection in the left popliteal fossa (possible elongation of a 4.7 cm popliteal fossa cyst, hematoma or muscle rupture). Visualization of this region was limit ed by patient pain.
--- NOTE | 2019-01-22 12:03 | XR ---
EXAMINATION TYPE: XR chest 2V DATE OF EXAM: 01/22/2019 COMPARISON: 01/20/2019 HISTORY: Congestive heart failure TECHNIQUE: Frontal and lateral views of the chest are obtained. FINDINGS: There is improved right pleural effusion, now trace and trace residual left pleural effusi on. Pulmonary vascular congestion has improved. Cardiomediastinal silhouette is within normal limits. Diffuse osseous demineralization is seen. IMPRESSION: Improving fluid overload with trace pleural effusions and minimal pulmonary vascular con gestion remaining.
[2019-01-22 12:25] VITALS: BP 135/64; PULSE 58
== END 2019-01-22 14:00 | disposition home or self-care (01) ==
LOC: EC 14:05 → 3SCARD 16:29
PROVIDERS: ADMIT Internal Medicine; ATTEND Internal Medicine
DX: I11.0 Hypertensive heart disease with heart failure (principal); I50.43 Acute on chronic combined systolic (congestive) and diastolic (congestive) heart failure; E87.6 Hypokalemia; E83.42 Hypomagnesemia; I25.10 Atherosclerotic heart disease of native coronary artery without angina pectoris; I25.5 Ischemic cardiomyopathy; E78.5 Hyperlipidemia, unspecified; F17.200 Nicotine dependence, unspecified, uncomplicated; I44.7 Left bundle-branch block, unspecified; R79.89 Other specified abnormal findings of blood chemistry; E04.9 Nontoxic goiter, unspecified; D69.3 Immune thrombocytopenic purpura; R30.0 Dysuria; R39.15 Urgency of urination; R35.0 Frequency of micturition; Z79.82 Long term (current) use of aspirin; Z79.899 Other long term (current) drug therapy; Z88.0 Allergy status to penicillin; Z88.1 Allergy status to other antibiotic agents; Z88.5 Allergy status to narcotic agent; Z88.8 Allergy status to other drugs, medicaments and biological substances; I25.2 Old myocardial infarction; Z16.12 Extended spectrum beta lactamase (ESBL) resistance; Z96.60 Presence of unspecified orthopedic joint implant; Z87.81 Personal history of (healed) traumatic fracture; Z87.440 Personal history of urinary (tract) infections; Z95.5 Presence of coronary angioplasty implant and graft; Z90.49 Acquired absence of other specified parts of digestive tract; Z90.710 Acquired absence of both cervix and uterus; Z80.3 Family history of malignant neoplasm of breast; Z82.49 Family history of ischemic heart disease and other diseases of the circulatory system
CPT/HCPCS: 96376 ×2; 96365; 96366; 93005 ×2; 96375; 99285; 36415; 85379; 83880; 80061; 80053; 80048 ×2; 83735 ×2; 84100; 84484 ×2; 85025; 85610; 85730; 81003; 71046 ×2; 93970; 71275; G0378 ×3; J1940 ×2; J3475; Q9967

== ENCOUNTER → 2019-03-19 | Outpatient (CLI) | payer MEDICARE ==
--- NOTE | 2019-03-19 13:20 | CT ---
EXAMINATION TYPE: CT brain wo con DATE OF EXAM: 03/19/2019 COMPARISON: None HISTORY: Tremors post hip surgery. CT DLP: 1062.1 mGycm Automated exposure control for dose reduction was used. FINDINGS: There is no acute intracranial hemorrhage, mass effect, or midline shift identified. Intracranial ath erosclerotic changes are noted. Area of low density within the left basal ganglia suggestive of an ar ea of remote ischemia. [id number] generalized degenerative change of the greater frontal lobe c omponent. Calvarium intact. Changes of chronic left mastoiditis noted. IMPRESSION: Degenerative change of the greater frontal lobe component. If symptoms persist consider MRI
== END | disposition home or self-care (01) ==
LOC: RADCTMAIN 12:29
PROVIDERS: ATTEND Family Medicine
DX: G31.89 Other specified degenerative diseases of nervous system (principal)
CPT/HCPCS: 70450

== ENCOUNTER → 2019-12-13 | Outpatient (CLI) | payer MEDICARE ==
[2019-12-13 14:13] LABS: Basophils % (A) 1 %; Eosinophils # (A) 0.2 k/uL (0-0.7); Eosinophils % (A) 3 %; HCT 33.1 % (34.0-46.0); HGB 11.4 gm/dL (11.4-16.0); Lymphocytes % (A) 23 %; MCH 32.9 pg (25.0-35.0); MCHC 34.6 g/dL (31.0-37.0); MCV 95.2 fL (80.0-100.0); Monocytes # (A) 0.3 k/uL (0-1.0); Monocytes % (A) 7 %; Neutrophils % (A) 65 %; Poikilocytosis Slight; RBC 3.48 m/uL (3.80-5.40); RDW 15.5 % (11.5-15.5); WBC 4.6 k/uL (3.8-10.6)
[2019-12-13 15:32] LABS: Platelet Count 66 k/uL (150-450)
[2019-12-13 21:22] LABS: Erythrocyte Sedimentation Rate 28 mm/Hr (0-30)
== END | disposition home or self-care (01) ==
LOC: LABWHC1 12:38
PROVIDERS: ATTEND Orthopaedic Surgery
DX: M25.50 Pain in unspecified joint (principal)
CPT/HCPCS: 36415; 85025; 85652; 86140

== ENCOUNTER 2020-07-30 18:16 | Inpatient (IN) | payer MEDICARE ==
[2020-07-30] MEDS ORDERED: IBUPROFEN 600 MG TAB PO STA (18:38)
[2020-07-30] MEDS ORDERED: ACETAMINOPHEN TAB 500 MG TAB PO STA (18:38)
--- NOTE | 2020-07-30 18:42 | ED ---
General Adult HPI - General Chief complaint: Weakness Stated complaint: weakness Time Seen by Provider: 07/30/20 18:30 Source: patient, EMS, RN notes reviewed, old records reviewed Mode of arrival: EMS Limitations: no limitations - History of Present Illness Initial comments: This is a 79-year-old female who states ever since Tuesday she started having s ome tremors and feeling extremely weak. Patient denied having a fever but she never took her temperature. Patient states she has had a cough but denies any sputum production. Patient denies any palpitations. Denies any shortness of breath or difficulty breathing. Patient states she has not had cold and she did not get the vaccine for COVID. Patient denies any abdominal pain. Patient denies any dysuria hematuria urinary frequency. Patient denies any vomiting or diarrhea. - Related Data Home Medications Medication Instructions Recorded Confirmed Metoprolol Tartrate [Lopressor] 50 mg PO BID 03/09/15 07/30/20 Isosorbide Mononitrate ER [Imdur] 60 mg PO DAILY 10/30/15 07/30/20 Aspirin EC [Ecotrin Low Dose] 81 mg PO DAILY 09/12/18 07/30/20 lisinopriL [Zestril] 15 mg PO DAILY 01/20/19 07/30/20 Ferrous Sulfate [Feosol] 325 mg PO DAILY 07/30/20 07/30/20 Naproxen 500 mg PO Q12H 07/30/20 07/30/20 Pravastatin Sodium 80 mg PO DAILY 07/30/20 07/30/20 Primidone [Mysoline] 25 mg PO HS 07/30/20 07/30/20 Previous Rx's Medication Instructions Recorded Furosemide [Lasix] 40 mg PO DAILY #30 tab 01/22/19 Allergies Allergy/AdvReac Type Severity Reaction Status Date / Time cephalexin monohydrate Allergy Rash/Hives/ Verified 07/30/20 19:50 [From Keflex] Swelling codeine Allergy Unknown Verified 07/30/20 19:50 doxepin Allergy Rash/Hives Verified 07/30/20 19:50 meperidine HCl [From Demerol] Allergy Rash/Hives Verified 07/30/20 19:50 methylprednisolone Allergy Rash/Hives Verified 07/30/20 19:50 [From Medrol] Opioids - Morphine Analogues Allergy Rash/Hives Verified 07/30/20 19:50 Penicillins Allergy Swelling Verified 07/30/20 19:50 pentazocine lactate Allergy Rash/Hives-Stomach Verified 07/30/20 19:50 [From Mouna] Upset propoxyphene napsylate Allergy Rash/Hives- Verified 07/30/20 19:50 [From Darvocet-N] Itch Review of Systems ROS Statement: Those systems with pertinent positive or pertinent negative responses have been documented in the HPI. ROS Other: All systems not noted in ROS Statement are negative. Past Medical History Past Medical History: Blood Disorder, Coronary Artery Disease (CAD), Hyperlipidemia, Hypertension, Myocardial Infarction ([place]) Additional Past Medical History / Comment(s): Thrombocytopenia-sees Dr. Kan. 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, 11-28-15 ercp, left hip repair with rods 09-15-2018 Past Anesthesia/Blood Transfusion Reactions: No Reported Reaction Date of Last Stent Placement:: 1998 Past Psychological History: No Psychological Hx Reported Smoking Status: Never smoker Past Alcohol Use History: None Reported Past Drug Use History: None Reported - Past Family History Mother Family Medical History: Cancer Additional Family Medical History / Comment(s): Breast Ca Father Family Medical History: Myocardial Infarction ([place]) Additional Family Medical History / Comment(s): @ age 86 from [place] General Exam - General Exam Comments Initial Comments: GENERAL: Patient is well-developed and well-nourished. Patient is nontoxic and well- hydrated and is in mild distress. ENT: Neck is soft and supple. No significant lymphadenopathy is noted. Oropharynx is clear. Moist mucous membranes. Neck has full range of motion without eliciting any pain. EYES: The sclera were anicteric and conjunctiva were pink and moist. Extraocular movements were intact and pupils were equal round and reactive to light. Eyelids were unremarkable. PULMONARY: Unlabored respirations. Good breath sounds bilaterally. No audible rales rhonchi or wheezing was noted. CARDIOVASCULAR: There is a regular rate and rhythm without any murmurs gallops or rubs. ABDOMEN: Soft and nontender with normal bowel sounds. SKIN: Skin is clear with no lesions or rashes and otherwise unremarkable. NEUROLOGIC: Patient is alert and oriented x3. Cranial nerves II through XII are grossly intact. Motor and sensory are also intact. Normal speech, volume and content. Symmetrical smile. MUSCULOSKELETAL: Normal extremities with adequate strength and full range of motion. No lower extremity swelling or edema. No calf tenderness. LYMPHATICS: No significant lymphadenopathy is noted PSYCHIATRIC: Normal psychiatric evaluation. Limitations: no limitations Course Vital Signs 07/30/20 18:31 Temperature 100.9 F H Pulse Rate 85 Respiratory 18 Rate Blood Pressure 119/53 O2 Sat by Pulse 99 Oximetry Medical Decision Making - Medical Decision Making Chest x-ray shows no acute abnormality. Troponin was mildly elevated. Patient has no chest pain. [facility] the patient admitted the patient wrote admitting orders. EKG shows normal sinus rhythm at [address] interval 298 QRSs 154 QT interval is 4:30 QTC is 508. Patient has left bundle branch block. - Lab Data Result diagrams: 07/30/20 19:07 07/30/20 19:07 Lab Results 07/30/20 07/30/20 07/30/20 Range/Units 19:07 19:07 19:07 WBC 7.9 (3.8-10.6) k/uL RBC 3.15 L (3.80-5.40) m/uL Hgb 11.0 L (11.4-16.0) gm/dL Hct 29.7 L (34.0-46.0) % MCV 94.0 (80.0-100.0) fL MCH 34.9 (25.0-35.0) pg MCHC 37.1 H (31.0-37.0) g/dL RDW 14.2 (11.5-15.5) % Plt Count 43 L (150-450) k/uL MPV 10.5 Neutrophils % 92 % Lymphocytes % 3 % Monocytes % 4 % Eosinophils % 0 % Basophils % 0 % Neutrophils # 7.3 (1.3-7.7) k/uL Lymphocytes # 0.2 L (1.0-4.8) k/uL Monocytes # 0.3 (0-1.0) k/uL Eosinophils # 0.0 (0-0.7) k/uL Basophils # 0.0 (0-0.2) k/uL Manual Slide Review Performed Hyperchromasia Slight Poikilocytosis Slight PT 11.9 (9.0-12.0) sec INR 1.1 (<1.2) APTT 25.2 (22.0-30.0) sec Sodium (137-145) mmol/L Potassium (3.5-5.1) mmol/L Chloride (98-107) mmol/L Carbon Dioxide (22-30) mmol/L Anion Gap mmol/L BUN (7-17) mg/dL Creatinine (0.52-1.04) mg/dL Est GFR (CKD-EPI)AfAm (>60 ml/min/1.73 sqM) Est GFR (CKD-EPI)NonAf (>60 ml/min/1.73 sqM) Glucose (74-99) mg/dL Plasma Lactic Acid Vincent (0.7-2.0) mmol/L Calcium (8.4-10.2) mg/dL Total Bilirubin (0.2-1.3) mg/dL AST (14-36) U/L ALT (4-34) U/L Alkaline Phosphatase (38-126) U/L Troponin I (0.000-0.034) ng/mL Total Protein (6.3-8.2) g/dL Albumin (3.5-5.0) g/dL Urine Color Yellow Urine Appearance Cloudy H (Clear) Urine pH 6.0 (5.0-8.0) Ur Specific Millen 1.021 (1.001-1.035) Urine Protein Negative (Negative) Urine Glucose (UA) Negative (Negative) Urine Ketones Negative (Negative) Urine Blood Negative (Negative) Urine Nitrite Negative (Negative) Urine Bilirubin Negative (Negative) Urine Urobilinogen 8.0 (<2.0) mg/dL Ur Leukocyte Esterase Small H (Negative) Urine WBC 5 (0-5) /hpf Ur Squamous Epith Cells 7 H (0-4) /hpf Urine Mucus Rare H (None) /hpf Coronavirus (PCR) (Not Detectd) 07/30/20 07/30/20 07/30/20 Range/Units 19:07 19:07 19:07 WBC (3.8-10.6) k/uL RBC (3.80-5.40) m/uL Hgb (11.4-16.0) gm/dL Hct (34.0-46.0) % MCV (80.0-100.0) fL MCH (25.0-35.0) pg MCHC (31.0-37.0) g/dL RDW (11.5-15.5) % Plt Count (150-450) k/uL MPV Neutrophils % % Lymphocytes % % Monocytes % % Eosinophils % % Basophils % % Neutrophils # (1.3-7.7) k/uL Lymphocytes # (1.0-4.8) k/uL Monocytes # (0-1.0) k/uL Eosinophils # (0-0.7) k/uL Basophils # (0-0.2) k/uL Manual Slide Review Hyperchromasia Poikilocytosis PT (9.0-12.0) sec INR (<1.2) APTT (22.0-30.0) sec Sodium 137 (137-145) mmol/L Potassium 4.7 (3.5-5.1) mmol/L Chloride 112 H (98-107) mmol/L Carbon Dioxide 18 L (22-30) mmol/L Anion Gap 7 mmol/L BUN 20 H (7-17) mg/dL Creatinine 0.91 (0.52-1.04) mg/dL Est GFR (CKD-EPI)AfAm 70 (>60 ml/min/1.73 sqM) Est GFR (CKD-EPI)NonAf 61 (>60 ml/min/1.73 sqM) Glucose 117 H (74-99) mg/dL Plasma Lactic Acid Vincent 1.9 (0.7-2.0) mmol/L Calcium 8.6 (8.4-10.2) mg/dL Total Bilirubin 2.2 H (0.2-1.3) mg/dL AST 36 (14-36) U/L ALT 18 (4-34) U/L Alkaline Phosphatase 117 (38-126) U/L Troponin I 0.068 H* (0.000-0.034) ng/mL Total Protein 5.5 L (6.3-8.2) g/dL Albumin 2.9 L (3.5-5.0) g/dL Urine Color Urine Appearance (Clear) Urine pH (5.0-8.0) Ur Specific Millen (1.001-1.035) Urine Protein (Negative) Urine Glucose (UA) (Negative) Urine Ketones (Negative) Urine Blood (Negative) Urine Nitrite (Negative) Urine Bilirubin (Negative) Urine Urobilinogen (<2.0) mg/dL Ur Leukocyte Esterase (Negative) Urine WBC (0-5) /hpf Ur Squamous Epith Cells (0-4) /hpf Urine Mucus (None) /hpf Coronavirus (PCR) (Not Detectd) 07/30/20 Range/Units 19:07 WBC (3.8-10.6) k/uL RBC (3.80-5.40) m/uL Hgb (11.4-16.0) gm/dL Hct (34.0-46.0) % MCV (80.0-100.0) fL MCH (25.0-35.0) pg MCHC (31.0-37.0) g/dL RDW (11.5-15.5) % Plt Count (150-450) k/uL MPV Neutrophils % % Lymphocytes % % Monocytes % % Eosinophils % % Basophils % % Neutrophils # (1.3-7.7) k/uL Lymphocytes # (1.0-4.8) k/uL Monocytes # (0-1.0) k/uL Eosinophils # (0-0.7) k/uL Basophils # (0-0.2) k/uL Manual Slide Review Hyperchromasia Poikilocytosis PT (9.0-12.0) sec INR (<1.2) APTT (22.0-30.0) sec Sodium (137-145) mmol/L Potassium (3.5-5.1) mmol/L Chloride (98-107) mmol/L Carbon Dioxide (22-30) mmol/L Anion Gap mmol/L BUN (7-17) mg/dL Creatinine (0.52-1.04) mg/dL Est GFR (CKD-EPI)AfAm (>60 ml/min/1.73 sqM) Est GFR (CKD-EPI)NonAf (>60 ml/min/1.73 sqM) Glucose (74-99) mg/dL Plasma Lactic Acid Vincent (0.7-2.0) mmol/L Calcium (8.4-10.2) mg/dL Total Bilirubin (0.2-1.3) mg/dL AST (14-36) U/L ALT (4-34) U/L Alkaline Phosphatase (38-126) U/L Troponin I (0.000-0.034) ng/mL Total Protein (6.3-8.2) g/dL Albumin (3.5-5.0) g/dL Urine Color Urine Appearance (Clear) Urine pH (5.0-8.0) Ur Specific Millen (1.001-1.035) Urine Protein (Negative) Urine Glucose (UA) (Negative) Urine Ketones (Negative) Urine Blood (Negative) Urine Nitrite (Negative) Urine Bilirubin (Negative) Urine Urobilinogen (<2.0) mg/dL Ur Leukocyte Esterase (Negative) Urine WBC (0-5) /hpf Ur Squamous Epith Cells (0-4) /hpf Urine Mucus (None) /hpf Coronavirus (PCR) Not Detected (Not Detectd) Disposition Clinical Impression: Generalized weakness, Elevated troponin, Febrile illness Disposition: ADMITTED IP TO THIS HOSP Referrals: None,Stated [Primary Care Provider] - 1-2 days Time of Disposition: 20:14
[2020-07-30] MEDS: SODIUM CHLORIDE 0.9% 500 ML 500 ML IV SCH ×3 (18:59→22:10)
--- NOTE | 2020-07-30 19:22 | XR ---
EXAMINATION TYPE: XR chest 2V DATE OF EXAM: 07/30/2020 COMPARISON: 01/22/2019. HISTORY: Generalized weakness and fevers. TECHNIQUE: Frontal and lateral views of the chest are obtained. FINDINGS: There is mild to moderate interstitial edema with associated hazy and streaky opacities. N o pleural effusion, or pneumothorax seen. The cardiac silhouette size is borderline enlarged. The osseous structures are intact. IMPRESSION: Interstitial edema with superimposed infiltrates not excluded.
[2020-07-30 19:33] LABS: Basophils % (A) 0 %; Eosinophils % (A) 0 %; HCT 29.7 % (34.0-46.0); Hyperchromasia Slight; Lymphocytes # (A) 0.2 k/uL (1.0-4.8); Lymphocytes % (A) 3 %; MCH 34.9 pg (25.0-35.0); MCHC 37.1 g/dL (31.0-37.0); Mean Platelet Volume 10.5; Monocytes # (A) 0.3 k/uL (0-1.0); Monocytes % (A) 4 %; Neutrophils # (A) 7.3 k/uL (1.3-7.7); Neutrophils % (A) 92 %; Poikilocytosis Slight; RBC 3.15 m/uL (3.80-5.40); RDW 14.2 % (11.5-15.5); WBC 7.9 k/uL (3.8-10.6)
[2020-07-30 19:38] LABS: Appearance,Urine Cloudy (Clear); Bilirubin,Urine Negative (Negative); Blood,Urine Negative (Negative); Color,Urine Yellow; Glucose,Urine (UA) Negative (Negative); Ketones,Urine Negative (Negative); Leukocyte Esterase,Urine Small (Negative); Mucus,Urine Rare /hpf; Nitrite,Urine Negative (Negative); Protein,Urine Negative (Negative); Specific Gravity,Urine 1.021 (1.001-1.035); Squamous Epithelial Cell,Urine 7 /hpf (0-4); WBC,Urine 5 /hpf (0-5)
[2020-07-30 19:40] LABS: Albumin 2.9 g/dL (3.5-5.0); Calcium 8.6 mg/dL (8.4-10.2); Potassium 4.7 mmol/L (3.5-5.1); Total Bilirubin 2.2 mg/dL (0.2-1.3); Total Protein 5.5 g/dL (6.3-8.2)
[2020-07-30 19:45] LABS: Platelet Count 43 k/uL (150-450)
[2020-07-30 20:02] LABS: INR 1.1 (<1.2); Partial Thromboplastin Time 25.2 sec (22.0-30.0); Prothrombin Time 11.9 sec (9.0-12.0)
[2020-07-30] MEDS ORDERED: SODIUM CHLORIDE 0.9% 1,000 ML IV ONE (20:14)
[2020-07-31 07:40] LABS: C Reactive Protein 2.9 mg/dL (<1.0); Calcium 8.1 mg/dL (8.4-10.2); Potassium 4.1 mmol/L (3.5-5.1)
[2020-07-31 07:52] LABS: Basophils % (A) 0 %; Eosinophils % (A) 1 %; HCT 25.8 % (34.0-46.0); Lymphocytes # (A) 0.2 k/uL (1.0-4.8); Lymphocytes % (A) 7 %; MCH 33.3 pg (25.0-35.0); MCHC 34.8 g/dL (31.0-37.0); MCV 95.8 fL (80.0-100.0); Mean Platelet Volume 9.6; Monocytes # (A) 0.1 k/uL (0-1.0); Monocytes % (A) 5 %; Neutrophils # (A) 2.5 k/uL (1.3-7.7); Neutrophils % (A) 86 %; Poikilocytosis Slight; RBC 2.69 m/uL (3.80-5.40); RDW 15.1 % (11.5-15.5)
[2020-07-31 07:59] LABS: Platelet Count 35 k/uL (150-450)
[2020-07-31] MEDS: lisinopriL 5 MG TAB PO SCH (08:20)
[2020-07-31] MEDS: FERROUS SULFATE 325 MG TAB PO SCH (08:20)
[2020-07-31] MEDS: ISOSORBIDE MONONITRATE ER 60 MG TAB.ER.24H PO SCH (08:20)
[2020-07-31] MEDS: METOPROLOL TARTRATE 50 MG TAB PO SCH ×2 (08:20→20:44)
[2020-07-31] MEDS: FUROSEMIDE 40 MG TAB PO SCH (08:20)
[2020-07-31] MEDS: HEPARIN SODIUM,PORCINE/PF 5,000 UNIT/0.5 ML SYRINGE SQ SCH ×2 (08:21→20:45)
[2020-07-31] MEDS: ACETAMINOPHEN TAB 325 MG TAB PO PRN ×2 (08:30→20:47)
[2020-07-31] MEDS ORDERED: FAMOTIDINE 20 MG/2 ML VIAL IV SCH (09:00)
[2020-07-31] MEDS ORDERED: ASPIRIN 81 MG PO SCH (09:00)
--- NOTE | 2020-07-31 10:18 | ECHOF ---
Referral Reason:Rule out heart disease MEASUREMENTS -------- HEIGHT: 154.9 cm WEIGHT: 70.8 kg BP: 109/48 RVIDd: 3.8 cm (< 3.3) IVSd: 1.3 cm (0.6 - 1.1) LVIDd: 4.6 cm (3.9 - 5.3) LVPWd: 1.2 cm (0.6 - 1.1) IVSs: 1.9 cm LVIDs: 3.5 cm LVPWs: 1.7 cm LA Diam: 3.8 cm (2.7 - 3.8) LAESV Index (A-L): 42.05 ml/m Ao Diam: 3.3 cm (2.0 - 3.7) AV Cusp: 2.1 cm (1.5 - 2.6) MV EXCURSION: 17.701 mm (> 18.000) MV EF SLOPE: 91 mm/s (70 - 150) EPSS: 0.3 cm MV E Jose Daniel: 1.29 m/s MV DecT: 140 ms MV A Jose Daniel: 1.08 m/s MV E/A Ratio: 1.19 AV maxP.84 mmHg AV meanP.44 mmHg AR PHT: 544 ms RAP: 5.00 mmHg RVSP: 50.83 mmHg FINDINGS -------- Sinus rhythm. This was a technically good study. The left ventricular size is normal. There is mild concentric left ventricular hypertrophy. Overa ll left ventricular systolic function is moderately impaired with, an EF between 35 - 40 %. Septal wall motion is delayed, and consistent with conduction delay/bundle branch block. Mid anterior LV w all motion is hypokinetic. Apical anterior LV wall motion is hypokinetic. The right ventricle is mild to moderately enlarged. LA is severely dilated >40 ml/m2 The right atrium is normal in size. Interatrial and interventricular septum intact. There is mild aortic valve sclerosis. There is mild aortic regurgitation. There is mild aortic st enosis present. Peak/mean gradient across the Aortic Valve is 20.84mmHg / 9.44mmHg. The mitral valve leaflets are mildly thickened. Mild mitral annular calcification present. Mild m itral regurgitation is present. Mild tricuspid regurgitation present. There is moderate pulmonary hypertension. The right ventric ular systolic pressure, as measured by Doppler, is 50.83mmHg. Trace/mild (physiologic) pulmonic regurgitation. The aortic root size is normal. Normal inferior vena cava with normal inspiratory collapse consistent with estimated right atrial pre ssure of 5 mmHg. There is no pericardial effusion. CONCLUSIONS -------- 1. The left ventricular size is normal. 2. There is mild concentric left ventricular hypertrophy. 3. Overall left ventricular systolic function is moderately impaired with, an EF between 35 - 40 %. 4. Septal wall motion is delayed, and consistent with conduction delay/bundle branch block. 5. Mid anterior LV wall motion is hypokinetic. 6. Apical anterior LV wall motion is hypokinetic. 7. The right ventricle is mild to moderately enlarged. 8. LA is severely dilated >40 ml/m2 9. Interatrial and interventricular septum intact. 10. There is mild aortic valve sclerosis. 11. There is mild aortic regurgitation. 12. There is mild aortic stenosis present. 13. Peak/mean gradient across the Aortic Valve is 20.84mmHg / 9.44mmHg. 14. The mitral valve leaflets are mildly thickened. 15. Mild mitral annular calcification present. 16. Mild mitral regurgitation is present. 17. Mild tricuspid regurgitation present. 18. There is moderate pulmonary hypertension. 19. The right ventricular systolic pressure, as measured by Doppler, is 50.83mmHg. 20. Trace/mild (physiologic) pulmonic regurgitation. 21. There is no pericardial effusion. [employer] OPERATOR HELPER: Kika Oden RDCS
--- NOTE | 2020-07-31 10:40 | P.HPIM ---
History of Present Illness This is a pleasant 79 years old female with past medical history of chronic ITP (idiopathic thrombocytopenia), coronary artery disease status post stent , hypertension, hyperlipidemia, also patient stated that she has history of sei zure Patient states she came originally because she was concerned regarding her worsening and tremor since last Tuesday about 3 days ago. Associated with fever and little exertional dyspnea. Patient feels generally weak with little, both limbs for the last 3 days. Also she has mild periumbilical pain and mild tenderness, no rebound tenderness, no nausea vomiting, no diarrhea. No dysuria or urination difficulty. She smokes about 3 cigarettes per day, she denies alcohol or illicit tracts On admission she has low grade temperature of 100.9. Rest of vitals are stable. Labs showing CBC unremarkable except for mild anemia of 11.0 and thrombocytopenia of 43 8. INR is 1.1, his metabolic panel and liver enzymes are unremarkable. Troponin are elevated at 0.06, 0.04 and 0.02. Urinalysis is suspicious for infection. A Coronavirus Is Not Detected. EKG showing normal sinus rhythm at [address]-T changes and left bundle branch block (seen in old EKG) Chest x-ray: Interstitial edema with superimposed infiltrates not exclude Emergency room patient received 1 L of normal saline, Tylenol and ibuprofen. Last echocardiogram in 2019 showing ejection fraction of 40-45% with moderate tricuspid regurgitation Review of Systems CONSTITUTIONAL: No fever, no malaise, no fatigue. HEENT: No recent visual problems or hearing problems. Denied any sore throat. CARDIOVASCULAR: No orthopnea, PND, no palpitations, no syncope. PULMONARY: No shortness of breath, no cough, no hemoptysis. GASTROINTESTINAL: No diarrhea, no nausea, no vomiting, no abdominal pain. Normoactive bowel sounds. NEUROLOGICAL: No headaches, no weakness, no numbness. HEMATOLOGICAL: Denies any bleeding or petechiae. GENITOURINARY: Denies any burning micturition, frequency, or urgency. MUSCULOSKELETAL/RHEUMATOLOGICAL: Denies any joint pain, swelling, or any muscle pain. ENDOCRINE: Denies any polyuria or polydipsia. Past Medical History Past Medical History: Blood Disorder, Coronary Artery Disease (CAD), Hyperlipidemia, Hypertension, Myocardial Infarction ([place]) Additional Past Medical History / Comment(s): Thrombocytopenia-sees Dr. Kan. 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, left hip repair with rods 09-15-2018 Past Anesthesia/Blood Transfusion Reactions: No Reported Reaction Date of Last Stent Placement:: 1998 Past Psychological History: No Psychological Hx Reported Smoking Status: Never smoker Past Alcohol Use History: None Reported Additional Past Alcohol Use History / Comment(s): smokes maybe weekly- 1-2 cigarettes- had smoked and quit for 12 yrs and started up about 5 yrs ago again Past Drug Use History: None Reported - Past Family History Mother Family Medical History: Cancer Additional Family Medical History / Comment(s): Breast Ca Father Family Medical History: Myocardial Infarction ([place]) Additional Family Medical History / Comment(s): @ age 86 from [place] Medications and Allergies Home Medications Medication Instructions Recorded Confirmed Type Metoprolol Tartrate [Lopressor] 50 mg PO BID 03/09/15 07/30/20 History Isosorbide Mononitrate ER [Imdur] 60 mg PO DAILY 10/30/15 07/30/20 History Aspirin EC [Ecotrin Low Dose] 81 mg PO DAILY 09/12/18 07/30/20 History lisinopriL [Zestril] 15 mg PO DAILY 01/20/19 07/30/20 History Furosemide [Lasix] 40 mg PO DAILY #30 tab 01/22/19 07/30/20 Rx Ferrous Sulfate [Feosol] 325 mg PO DAILY 07/30/20 07/30/20 History Naproxen 500 mg PO Q12H 07/30/20 07/30/20 History Pravastatin Sodium 80 mg PO DAILY 07/30/20 07/30/20 History Primidone [Mysoline] 25 mg PO HS 07/30/20 07/30/20 History Allergies Allergy/AdvReac Type Severity Reaction Status Date / Time cephalexin monohydrate Allergy Rash/Hives/ Verified 07/30/20 19:50 [From Keflex] Swelling codeine Allergy Unknown Verified 07/30/20 19:50 doxepin Allergy Rash/Hives Verified 07/30/20 19:50 meperidine HCl [From Demerol] Allergy Rash/Hives Verified 07/30/20 19:50 methylprednisolone Allergy Rash/Hives Verified 07/30/20 19:50 [From Medrol] Opioids - Morphine Analogues Allergy Rash/Hives Verified 07/30/20 19:50 Penicillins Allergy Swelling Verified 07/30/20 19:50 pentazocine lactate Allergy Rash/Hives-Stomach Verified 07/30/20 19:50 [From Talwin] Upset propoxyphene napsylate Allergy Rash/Hives- Verified 07/30/20 19:50 [From Darvocet-N] Itch Physical Exam Vitals: Vital Signs Temp Pulse Pulse Resp BP BP Pulse Ox 07/31/20 04:00 98.1 F 64 16 109/48 98 07/31/20 02:00 70 18 07/31/20 00:00 98.6 F 70 18 106/62 100 07/30/20 22:33 98.6 F 70 18 106/62 100 07/30/20 22:15 100.6 F H 70 18 97/58 98 07/30/20 18:31 100.9 F H 85 18 119/53 99 Intake and Output 07/30/20 07/30/20 07/31/20 14:59 22:59 06:59 Output Total 200 Balance -200 Output: Urine 200 Other: Voiding Method Toilet Bedside Commode Weight 62.142 kg 71.1 kg GENERAL: The patient is alert and oriented x3, not in any acute distress. Well developed, well nourished. HEENT: Pupils are round and equally reacting to light. EOMI. No scleral icterus. No conjunctival pallor. Normocephalic, atraumatic. No pharyngeal erythema. No thyromegaly. CARDIOVASCULAR: S1 and S2 present. No murmurs, rubs, or gallops. PULMONARY: Chest is clear to auscultation, no wheezing or crackles. ABDOMEN: Soft, nontender, nondistended, normoactive bowel sounds. No palpable organomegaly. MUSCULOSKELETAL: No joint swelling or deformity. EXTREMITIES: No cyanosis, clubbing, or pedal edema. NEUROLOGICAL: Gross neurological examination did not reveal any focal deficits. SKIN: No rashes. No petechiae Results CBC & Chem 7: 07/31/20 06:34 07/31/20 06:34 Labs: Abnormal Lab Results - Last 24 Hours (Table) 07/30/20 07/30/20 07/30/20 Range/Units 19:07 19:07 19:07 RBC 3.15 L (3.80-5.40) m/uL Hgb 11.0 L (11.4-16.0) gm/dL Hct 29.7 L (34.0-46.0) % MCHC 37.1 H (31.0-37.0) g/dL Plt Count 43 L (150-450) k/uL Lymphocytes # 0.2 L (1.0-4.8) k/uL Chloride 112 H (98-107) mmol/L Carbon Dioxide 18 L (22-30) mmol/L BUN 20 H (7-17) mg/dL Glucose 117 H (74-99) mg/dL Total Bilirubin 2.2 H (0.2-1.3) mg/dL Troponin I (0.000-0.034) ng/mL Total Protein 5.5 L (6.3-8.2) g/dL Albumin 2.9 L (3.5-5.0) g/dL Urine Appearance Cloudy H (Clear) Ur Leukocyte Esterase Small H (Negative) Ur Squamous Epith Cells 7 H (0-4) /hpf Urine Mucus Rare H (None) /hpf 07/30/20 07/30/20 Range/Units 19:07 21:57 RBC (3.80-5.40) m/uL Hgb (11.4-16.0) gm/dL Hct (34.0-46.0) % MCHC (31.0-37.0) g/dL Plt Count (150-450) k/uL Lymphocytes # (1.0-4.8) k/uL Chloride (98-107) mmol/L Carbon Dioxide (22-30) mmol/L BUN (7-17) mg/dL Glucose (74-99) mg/dL Total Bilirubin (0.2-1.3) mg/dL Troponin I 0.068 H* 0.049 H* (0.000-0.034) ng/mL Total Protein (6.3-8.2) g/dL Albumin (3.5-5.0) g/dL Urine Appearance (Clear) Ur Leukocyte Esterase (Negative) Ur Squamous Epith Cells (0-4) /hpf Urine Mucus (None) /hpf Thrombosis Risk Factor Assmnt - Choose All That Apply Other Risk Factors: Yes Each Risk Factor Represents 3 Points: Age 75 years or older Other congenital or acquired thrombophilia - If yes, enter type in comment: No Thrombosis Risk Factor Assessment Total Risk Factor Score: 3 Thrombosis Risk Factor Assessment Level: Moderate Risk Assessment and Plan Assessment: Elevated troponin suspicious for non-STEMI Interstitial pulmonary edema with superimposed infiltrates cannot be excluded Hypertension Hyperlipidemia chronic systolic CHF with ejection fraction of 40-45%, with a history of moderate TR History of Coronary artery disease status post stent 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 Fluid overload and mild CHF was also suspected. Check echocardiogram, continue with aspirin. Cardiology consult. Start doxycycline, patient has multiple medical ALLERGIES which limited her antibiotic choice. Consult infectious disease. Check C-reactive protein and procalcitonin Labs and medication were reviewed.. Continue same treatment. Continue with symptomatic treatment. Resume home medication. Monitor lytes and vitals. DVT and GI prophylaxis. Further recommendations depends on the clinical course of the patient DVT prophylaxis: Subcutaneous heparin GI Prophylaxis: Pepcid PT/OT: Pending Prognosis is guarded
--- NOTE | 2020-07-31 10:45 | P.CRDCN ---
History of Present Illness History of present illness: HISTORY OF PRESENTING ILLNESS This is a pleasant 79-year-old female past medical history significant for coronary artery disease status post PCI to the RCA in 1998, ischemic cardio myopathy, hypertension, dyslipidemia, thrombocytopenia and former nicotine dependence. She follows in the office with Dr. Ibrahim. We have been asked to see in consultation for elevated troponin. She presented to the hospital with symptoms of tremors and increased weakness. She denies symptoms of chest pain, shortness of breath, dizziness or palpitations. On arrival to the emergency department she was found to have a temperature of 100.9F. She has been started on oral antibiotics per the primary care team. She recently saw Dr. Ibrahim in the office and underwent a stress test revealing small reversible defect involving the inferior wall of the LV however maximum medical therapy was recommended as she was asymptomatic from a cardiac perspective. She is currently maintained on metoprolol 50 mg twice a day, pravastatin 80 mg daily, aspirin 81 mg daily, Lasix 40 mg daily, Imdur 60 mg daily and lisinopril 10 mg daily. Most recent echocardiogram obtained in the office August 2019 revealed impaired LV systolic function with ejection fraction 40%, dyskinesia of the septum at the apex with t he remainder of the LV hypokinetic, grade 1 diastolic dysfunction, mild tricuspid regurgitation, mild aortic regurgitation and mild pulmonic regurgitation. Also of note there is a small mass consistent with a possible thrombus noted in the LV. DIAGNOSTICS EKG reveals sinus mechanism with underlying left bundle branch block, chronic. Telemetry tracings indicate sinus mechanism. Chest xray moderate interstitial edema. Laboratory reviewed, WBC 3, hemoglobin 9, platelets 35, sodium 140, potassium 4.1, creatinine 1.0, troponin 0.0 68, 0.0 49, 0.0 28 and 0.0 27. REVIEW OF SYSTEMS At the time of my exam: CONSTITUTIONAL: Complains of generalized weakness. Denies fever or chills. CARDIOVASCULAR: Denies chest pain, shortness of breath, orthopnea, PND or palpitations. RESPIRATORY: Denies cough. GASTROINTESTINAL: Denies abdominal pain, diarrhea, constipation, nausea or vomiting. MUSCULOSKELETAL: Denies myalgias. NEUROLOGIC: Denies numbness, tingling, headacbe or weakness. ENDOCRINE: Denies fatigue, weight change, polydipsia or polyurina. GENITOURINARY: Denies burning, hematuria or urgency with micturation. HEMATOLOGIC: Denies history of anemia or bleeding. PHYSICAL EXAMINATION Blood pressure 106/62 heart rate 70 afebrile and maintaining oxygen saturation on room air. CONSTITUTIONAL: No apparent distress. HEENT: Head is normocephalic. Pupils are equal, round. Sclerae anicteric. Mucous membranes of the mouth are moist. No JVD. No carotid bruit. CHEST EXAMINATION: Lungs are clear to auscultation. No chest wall tenderness is noted on palpation or with deep breathing. HEART EXAMINATION: Regular rate and rhythm. S1, S2 heard. No murmurs, gallops or rub. ABDOMEN: Soft, nontender. Positive bowel sounds. EXTREMITIES: 2+ peripheral pulses, no lower extremity edema and no calf tend erness. NEUROLOGIC EXAMINATION: Patient is awake, alert and oriented x3. ASSESSMENT Febrile illness Troponin leak of unclear significance, no symptoms of angina Pancytopenia Coronary artery disease status post PCI to the RCA in 1998 Ischemic cardiomyopathy Hypertension Dyslipidemia Former nicotine dependence PLAN Echocardiogram has been obtained and will be reviewed. Clinically the patient is euvolemic. Discontinue aspirin as she has stable underlying coronary artery disease with worsening thrombocytopenia. Currently she is not a candidate for any invasive cardiac procedures. We recommend treating her with maximum medical therapy. Continue beta blockers, lisinopril, Imdur and pravastatin as previously ordered. Ongoing medical management. Thank you kindly for this consultation. Nurse Practitioner note has been reviewed, I agree with a documented findings and plan of care. Patient was seen and examined. Past Medical History Past Medical History: Blood Disorder, Coronary Artery Disease (CAD), Hyperlipidemia, Hypertension, Myocardial Infarction (AR) Additional Past Medical History / Comment(s): Thrombocytopenia-sees Dr. Kan. 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, left hip repair with rods 09-15-2018 Past Anesthesia/Blood Transfusion Reactions: No Reported Reaction Date of Last Stent Placement:: 1998 Past Psychological History: No Psychological Hx Reported Smoking Status: Never smoker Past Alcohol Use History: None Reported Additional Past Alcohol Use History / Comment(s): smokes maybe weekly- 1-2 cigarettes- had smoked and quit for 12 yrs and started up about 5 yrs ago again Past Drug Use History: None Reported - Past Family History Mother Family Medical History: Cancer Additional Family Medical History / Comment(s): Breast Ca Father Family Medical History: Myocardial Infarction (AR) Additional Family Medical History / Comment(s): @ age 86 from AR Medications and Allergies Home Medications Medication Instructions Recorded Confirmed Type Metoprolol Tartrate [Lopressor] 50 mg PO BID 03/09/15 07/30/20 History Isosorbide Mononitrate ER [Imdur] 60 mg PO DAILY 10/30/15 07/30/20 History Aspirin EC [Ecotrin Low Dose] 81 mg PO DAILY 09/12/18 07/30/20 History lisinopriL [Zestril] 15 mg PO DAILY 01/20/19 07/30/20 History Furosemide [Lasix] 40 mg PO DAILY #30 tab 01/22/19 07/30/20 Rx Ferrous Sulfate [Feosol] 325 mg PO DAILY 07/30/20 07/30/20 History Naproxen 500 mg PO Q12H 07/30/20 07/30/20 History Pravastatin Sodium 80 mg PO DAILY 07/30/20 07/30/20 History Primidone [Mysoline] 25 mg PO HS 07/30/20 07/30/20 History Allergies Allergy/AdvReac Type Severity Reaction Status Date / Time cephalexin monohydrate Allergy Rash/Hives/ Verified 07/30/20 19:50 [From Keflex] Swelling codeine Allergy Unknown Verified 07/30/20 19:50 doxepin Allergy Rash/Hives Verified 07/30/20 19:50 meperidine HCl [From Demerol] Allergy Rash/Hives Verified 07/30/20 19:50 methylprednisolone Allergy Rash/Hives Verified 07/30/20 19:50 [From Medrol] Opioids - Morphine Analogues Allergy Rash/Hives Verified 07/30/20 19:50 Penicillins Allergy Swelling Verified 07/30/20 19:50 pentazocine lactate Allergy Rash/Hives-Stomach Verified 07/30/20 19:50 [From Mouna] Upset propoxyphene napsylate Allergy Rash/Hives- Verified 07/30/20 19:50 [From [facility]] Itch Physical Exam Vitals: Vital Signs Temp Pulse Pulse Resp BP BP Pulse Ox 07/31/20 08:15 98.4 F 80 18 146/73 100 07/31/20 04:00 98.1 F 64 16 109/48 98 07/31/20 02:00 70 18 07/31/20 00:00 98.6 F 70 18 106/62 100 07/30/20 22:33 98.6 F 70 18 106/62 100 07/30/20 22:15 100.6 F H 70 18 97/58 98 07/30/20 18:31 100.9 F H 85 18 119/53 99 Intake and Output 07/30/20 07/31/20 07/31/20 22:59 06:59 14:59 Output Total 200 Balance -200 Output: Urine 200 Other: Voiding Method Toilet Bedside Commode Weight 62.142 kg 71.1 kg Results 07/31/20 06:34 07/31/20 06:34 Cardiac Enzymes 07/30/20 07/30/20 07/30/20 Range/Units 19:07 19:07 21:57 AST 36 (14-36) U/L Troponin I 0.068 H* 0.049 H* (0.000-0.034) ng/mL 07/31/20 07/31/20 Range/Units 03:00 06:34 AST (14-36) U/L Troponin I 0.028 0.027 (0.000-0.034) ng/mL Coagulation 07/30/20 Range/Units 19:07 PT 11.9 (9.0-12.0) sec APTT 25.2 (22.0-30.0) sec CBC 07/30/20 07/31/20 Range/Units 19:07 06:34 WBC 7.9 3.0 L (3.8-10.6) k/uL RBC 3.15 L 2.69 L (3.80-5.40) m/uL Hgb 11.0 L 9.0 L D (11.4-16.0) gm/dL Hct 29.7 L 25.8 L (34.0-46.0) % Plt Count 43 L 35 L (150-450) k/uL Comprehensive Metabolic Panel 07/30/20 07/31/20 Range/Units 19:07 06:34 Sodium 137 140 (137-145) mmol/L Potassium 4.7 4.1 (3.5-5.1) mmol/L Chloride 112 H 115 H (98-107) mmol/L Carbon Dioxide 18 L 19 L (22-30) mmol/L BUN 20 H 24 H (7-17) mg/dL Creatinine 0.91 1.00 (0.52-1.04) mg/dL Glucose 117 H 101 H (74-99) mg/dL Calcium 8.6 8.1 L (8.4-10.2) mg/dL AST 36 (14-36) U/L ALT 18 (4-34) U/L Alkaline Phosphatase 117 (38-126) U/L Total Protein 5.5 L (6.3-8.2) g/dL Albumin 2.9 L (3.5-5.0) g/dL Current Medications Generic Name Dose Route Start Last Admin Trade Name Freq PRN Reason Stop Dose Admin Acetaminophen 650 mg 07/30/20 20:23 07/31/20 08:30 Acetaminophen Tab 325 Mg Tab PO 650 mg Q6HR PRN Administration Fever and/ or Mild Pain Aspirin 81 mg 07/31/20 09:00 07/31/20 08:20 Aspirin 81 Mg PO 81 mg DAILY RONI Administration Doxycycline Monohydrate 100 mg 07/31/20 09:00 Doxycycline 100 Mg Cap PO BID RONI Famotidine 20 mg 07/31/20 09:00 07/31/20 08:23 Famotidine 20 Mg/2 Ml Vial IV 20 mg Q12HR RONI Administration Ferrous Sulfate 325 mg 07/31/20 09:00 07/31/20 08:20 Ferrous Sulfate 325 Mg Tab PO 325 mg DAILY RONI Administration Furosemide 40 mg 07/31/20 09:00 07/31/20 08:20 Furosemide 40 Mg Tab PO Not Given DAILY RONI Heparin Sodium (Porcine) 5,000 unit 07/31/20 09:00 07/31/20 08:21 Heparin Sodium,Porcine/Pf 5,000 Unit/0.5 Ml Syringe SQ 5,000 unit Q12HR RONI Administration Sodium Chloride 1,000 mls @ 75 mls/hr 07/30/20 20:14 07/30/20 22:08 Saline 0.9% IV 07/31/20 09:33 75 mls/hr .[id number] ONE Administration Isosorbide Mononitrate 60 mg 07/31/20 09:00 07/31/20 08:20 Isosorbide Mononitrate Er 60 Mg Tab.Er.24h PO 60 mg DAILY RONI Administration Lisinopril 15 mg 07/31/20 09:00 07/31/20 08:20 Lisinopril 5 Mg Tab PO 15 mg DAILY RONI Administration Metoprolol Tartrate 50 mg 07/31/20 09:00 07/31/20 08:20 Metoprolol Tartrate 50 Mg Tab PO 50 mg BID RONI Administration Pravastatin Sodium 80 mg 07/31/20 09:00 Pravastatin Sodium 80 Mg Tab PO DAILY RONI Primidone 25 mg 07/31/20 21:00 Primidone 25 Mg Tab PO HS RONI Intake and Output 07/30/20 07/31/20 07/31/20 22:59 06:59 14:59 Output Total 200 Balance -200 Output: Urine 200 Other: Voiding Method Toilet Bedside Commode Weight 62.142 kg 71.1 kg 07/31/20 06:34 07/31/20 06:34
[2020-07-31] MEDS: PRAVASTATIN SODIUM 80 MG TAB PO SCH (10:52)
[2020-07-31] MEDS: DOXYCYCLINE 100 MG CAP PO SCH ×2 (10:52→20:44)
[2020-07-31] MEDS ORDERED: SENNOSIDES 8.6 MG TAB PO PRN (11:07)
[2020-07-31] MEDS ORDERED: DOCUSATE 100 MG CAP PO PRN (11:07)
[2020-07-31] MEDS ORDERED: LACTULOSE 20 GM/30 ML CUP PO ONE (11:07)
[2020-07-31] MEDS: PANTOPRAZOLE 40 MG/10 ML VIAL IVP SCH (11:28)
[2020-07-31] MEDS: DEXTROSE 5%-0.9% NACL 1,000 ML IV SCH (11:29)
[2020-07-31] MEDS: IOPAMIDOL CONTRAST (ORAL USE) VIAL PO PRN ×2 (14:00→15:17)
[2020-07-31] MEDS: AMPICILLIN-SULBACTAM 3 GM in SODIUM CHLORIDE 0.9% 100 ML IVPB SCH ×3 (15:17→23:24)
--- NOTE | 2020-07-31 15:51 | XR ---
End of multiple HISTORY: Infection with tooth abscess lower jaw 5 views of the mandible There is a lucency involving the left mandible consistent with patient's history of abscess seen on t he frontal view which is slightly angulated. There is tooth decay noted. Bone mineralization is reduc ed. No evident fracture or dislocation. impression: Findings suggestive of bone loss in the left mandible one of the views, CT scan could be performed for better evaluation.
--- NOTE | 2020-07-31 16:09 | CT ---
EXAMINATION TYPE: CT abdomen pelvis w con DATE OF EXAM: 07/31/2020 COMPARISON: 11/28/2015 HISTORY: Generalized pain with fever CT DLP: 1247 mGycm CONTRAST: CT scan of the abdomen and pelvis is performed with Oral Contrast and with IV Contrast, patient injec leonel with 100 mL of Isovue 300. FINDINGS: LUNG BASES-: No visible nodule. No infiltrate. Trace bilateral pleural effusions noted. LIVER/GB: Micronodular appearance of the liver may reflect underlying cirrhotic liver disease. There appear to be changes of prior cholecystectomy. No space occupying hepatic lesion. Biliary tree is of normal caliber. PANCREAS: No inflammation. No distinct mass. SPLEEN: Splenomegaly measuring 14.6 cm from the lizzie dimension. No lesion seen. ADRENALS: No nodule. No thickening. KIDNEYS/BLADDER: No hydronephrosis. No nephrolithiasis. No distinct renal mass. Urinary bladder g rossly unremarkable. BOWEL: Normal appendix. Normal bowel caliber. No inflammation. Moderate fecal stasis. GENITAL ORGANS: No gross abnormality. LYMPH NODES: No greater than 1cm abdominal or pelvic lymph nodes are appreciated. AORTA: No significant abnormality. OSSEOUS STRUCTURES: Marked varices are again noted extending into the pelvis. OTHER: Fat-containing umbilical hernia noted. IMPRESSION: 1. Splenomegaly with the marked varices again noted extending into the pelvis. 2. Moderate fecal stasis. 3. Changes of the cirrhotic liver disease.
[2020-07-31 16:30] LABS: % Iron Saturation 30.56 (12.00-45.00)
[2020-07-31 16:39] LABS: Folate, Serum 9.6 ng/mL
[2020-07-31] MEDS ORDERED: PRIMIDONE 25 MG TAB PO SCH (21:00)
[2020-08-01 04:14] VITALS: RESP 16
[2020-08-01] MEDS: DEXTROSE 5%-0.9% NACL 1,000 ML IV SCH (06:11)
[2020-08-01] MEDS: AMPICILLIN-SULBACTAM 3 GM in SODIUM CHLORIDE 0.9% 100 ML IVPB SCH ×3 (06:11→18:38)
[2020-08-01] MEDS: lisinopriL 5 MG TAB PO SCH (08:21)
[2020-08-01] MEDS: ISOSORBIDE MONONITRATE ER 60 MG TAB.ER.24H PO SCH (08:21)
[2020-08-01] MEDS: METOPROLOL TARTRATE 50 MG TAB PO SCH (08:21)
[2020-08-01] MEDS: FERROUS SULFATE 325 MG TAB PO SCH (08:21)
[2020-08-01] MEDS: FUROSEMIDE 40 MG TAB PO SCH (08:22)
[2020-08-01] MEDS: DOXYCYCLINE 100 MG CAP PO SCH (08:22)
[2020-08-01] MEDS: PRAVASTATIN SODIUM 80 MG TAB PO SCH (08:22)
[2020-08-01] MEDS: PANTOPRAZOLE 40 MG/10 ML VIAL IVP SCH (08:23)
[2020-08-01 08:24] LABS: HCT 26.5 % (34.0-46.0); HGB 9.4 gm/dL (11.4-16.0); MCH 33.7 pg (25.0-35.0); MCHC 35.7 g/dL (31.0-37.0); MCV 94.5 fL (80.0-100.0); Mean Platelet Volume 10.2; Poikilocytosis Slight; RDW 14.4 % (11.5-15.5); WBC 3.9 k/uL (3.8-10.6)
[2020-08-01 08:27] VITALS: TEMP 98.3
[2020-08-01 08:30] LABS: Platelet Count 42 k/uL (150-450)
[2020-08-01] MEDS: ACETAMINOPHEN TAB 325 MG TAB PO PRN ×2 (08:32→16:27)
[2020-08-01 08:35] LABS: Albumin 2.5 g/dL (3.5-5.0); Bilirubin, Delta 0.4 mg/dL (0.0-0.2); Bilirubin,Unconjugated 1.5 mg/dL (0.0-1.1); C Reactive Protein 4.5 mg/dL (<1.0); Calcium 8.1 mg/dL (8.4-10.2); Magnesium 1.4 mg/dL (1.6-2.3); Total Bilirubin 1.9 mg/dL (0.2-1.3)
--- NOTE | 2020-08-01 09:05 | XR ---
EXAMINATION TYPE: XR chest 1V DATE OF EXAM: 08/01/2020 COMPARISON: Chest x-ray 07/30/2020 HISTORY: Congestive heart failure, follow-up TECHNIQUE: Single frontal view of the chest is obtained. FINDINGS: Heart appears prominently, there is rotation, there may be underlying scoliosis. There are overlying leads. No evident pneumothorax or pleural effusion. Right hemidiaphragm remains elevated. No evident airspace disease. There is improvement in the prominence and central vascularity seen on p rior exam. Aorta is dense. IMPRESSION: No acute process.
--- NOTE | 2020-08-01 09:24 | CONS ---
CONSULTATION DATE OF SERVICE: 07/31/2020 REASON FOR CONSULTATION: Fever. HISTORY OF PRESENT ILLNESS: The patient is a 79-year-old, female presenting to [facility] ER last evening for evaluation of tremors and feeling extremely weak. This patient's symptom has been going on for the last few days before presentation to the hospital. The patient did not recall if she has taken temperature or noticed any fever at home. The patient denies having any headache. The patient denies having any chest pain or shortness of breath. She did have some cough. Denies any worsening than unusual and not bringing up any sputum. Patient denies any nausea, no vomiting. She has been complaining of some abdominal pain mostly in the epigastric and right upper quadrant area, more of a dull aching intensity 3 to 4 out of 10 with no radiation. There is nausea, but no vomiting. Denies having any diarrhea or constipation. Denies any urine burning or frequency. The patient also complaining of a dental abscess that she has been dealing over the last few days, however, has not received any antibiotics for it with some pain to the left lower jaw which is mostly dull aching to throbbing, 4-5 out of 10 and no radiation. With these symptoms, the patient was evaluated by the ER physician. On arrival to the ER, the patient did have a fever of 100.6 to 100.9 degrees Fahrenheit. The patient did have a normal white count with lymphopenia. Creatinine was normal at 0.91. Liver enzymes are normal. Troponin was mildly elevated. Urine was negative. Jose PCR was negative. Chest x-ray was mostly interstitial infiltrate. The patient was admitted to the hospital. Infectious Disease was consulted for further management of fever and antibiotic therapy. REVIEW OF SYSTEMS: Positive points have been mentioned in HPI. Rest of systems are negative. PAST MEDICAL HISTORY: Coronary artery disease, hyperlipidemia, hypertension, [place], thrombocytopenia, sinus infection. 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 SOCIAL HISTORY: No history of smoking, drinking or drug use. FAMILY HISTORY: Mother history of breast cancer. Father history of KS. ALLERGIES: Allergies to CEPHALEXIN and PENICILLIN. However, the patient's says she has taken Amoxil without any problem, clinically not true PENICILLIN allergy. MEDICATIONS: Medications currently include the patient is on Tylenol, Colace, doxycycline, iron sulfate, Lasix, Imdur, Zestril, Lopressor, Protonix, Pravachol, Senokot, and mycin. PHYSICAL EXAMINATION: Her blood pressure is 166/72 with a pulse of 95, temperature is 97.6, T-max 100.9. She is 98% on room air. General description is an elderly female lying in bed in no distress. No tachypnea or accessory muscles of respiration use. HEENT: Examination shows pallor no scleral icterus. Oral mucous membrane dry. The patient did have poor dentition especially in the left lower jaw area with some swelling. No redness or drainage. NECK: Trachea central. No thyromegaly. LUNGS: Unlabored breathing clear to auscultation. No wheeze or crackle. HEART: S1, S2. Regular rate and rhythm. ABDOMEN: Soft, no tenderness. No guarding or rigidity. EXTREMITIES: No edema of the feet. SKIN EXAMINATION: No rash or mass palpable. NEUROLOGICAL: Patient is awake, alert, oriented x3. Mood and affect normal. LABS: Hemoglobin 9.4, white count 3.0, BUN of 24, creatinine 1.0. Troponin is mildly elevated. Jose PCR was negative. DIAGNOSTIC IMPRESSION AND PLAN: 1. Patient admitted to the hospital with tremors with rigors and chills in this patient who did have evidence of a fever and generalized weakness. The patient is complaining of a left lower jaw infected tooth and pain to the area as well as abdominal pain. The source of the fever is likely infected tooth and question of possible abdominal source. Clinically not behaving as pneumonia. Urine has been negative and no evidence of any cellulitis. 2. The patient does have multiple antibiotic allergies that will limit the number of antibiotics safe to use; however, clinically doubt PENICILLIN allergy as she had taken Amoxil without any problem. PLAN: 1. We will obtain x-rays of the mandible area and CT of abdomen and pelvis with contrast. 2. We will empirically start the patient on Unasyn 3 g q.6 hours while waiting for culture to finalize. 3. We will follow on clinical condition and culture to further adjust medication if needed. Thank you for this consultation. Will follow this patient along with you. MMODL / IJN: [id number] /
[2020-08-01] MEDS ORDERED: Magnesium Replacement Protocol 1 EACH MISC MISCELLANE PRN (10:12)
[2020-08-01] MEDS: MAGNESIUM SULFATE-D5W PMX 1 GM in DEXTROSE/WATER 1 100ML.BAG IVPB SCH ×3 (11:19→16:22)
[2020-08-01 11:42] VITALS: BP 119/61; PULSE 69
--- NOTE | 2020-08-01 11:54 | P.PN ---
Subjective HISTORY OF PRESENTING ILLNESS This is a pleasant 79-year-old female past medical history significant for coronary artery disease status post PCI to the RCA in 1998, ischemic cardiomyopathy, hypertension, dyslipidemia, thrombocytopenia and former nicotine dependence. She follows in the office with Dr. Ibrahim. We have been asked to see in consultation for elevated troponin. She presented to the hospital with symptoms of tremors and increased weakness. She denies symptoms of chest pain, shortness of breath, dizziness or palpitations. On arrival to the emergency department she was found to have a temperature of 100.9F. She has been started on oral antibiotics per the primary care team. She recently saw Dr. Ibrahim in the office and underwent a stress test revealing small reversible defect involving the inferior wall of the LV however maximum medical therapy was recommended as she was asymptomatic from a cardiac perspective. She is currently maintained on metoprolol 50 mg twice a day, pravastatin 80 mg daily, aspirin 81 mg daily, Lasix 40 mg daily, Imdur 60 mg daily and lisinopril 10 mg daily. Most recent echocardiogram obtained in the office August 2019 revealed impaired LV systolic function with ejection fraction 40%, dyskinesia of the septum at the apex with the remainder of the LV hypokinetic, grade 1 diastolic dysfunction, mild tricuspid regurgitation, mild aortic regurgitation and mild pulmonic regurgitation. Also of note there is a small mass consistent with a possible thrombus noted in the LV. 08/01/2020 Pt seen and examined sitting up eating breakfast in no acute distress. She denies chest pain, shortness of breath, dizziness or palpitations. Blood pressure 122/52 heart rate 86 afebrile maintaining oxygen saturation on room air. CT of the mandible reveals bone loss in the left mandible consistent with patient's history of abscess. Repeat chest x-ray today is negative for an acute cardiopulmonary process. Echocardiogram revealed impaired LV systolic function with ejection fraction 35-40%, septal wall motion likely consistent with left bundle branch block, mid anterior, apical anterior wall motion hypokinesia, mild aortic stenosis with a mean gradient of 19 mmHg, mild mitral regurgitation, mild tricuspid regurgitation and moderate pulmonary hypertension with an RVSP of 50 mmHg. Laboratory data reviewed, WBC 3.9, hemoglobin 9.4, platelets 42, sodium 136, potassium 4.0, creatinine 0.78 and magnesium 1.4. Stool positive for occult blood. PHYSICAL EXAMINATION CONSTITUTIONAL: No apparent distress. HEENT: Head is normocephalic. Pupils are equal, round. Sclerae anicteric. Mucous membranes of the mouth are moist. No JVD. No carotid bruit. CHEST EXAMINATION: Lungs are clear to auscultation. No chest wall tenderness is noted on palpation or with deep breathing. HEART EXAMINATION: Regular rate and rhythm. S1, S2 heard. No murmurs, gallops or rub. EXTREMITIES: 2+ peripheral pulses, no lower extremity edema and no calf tenderness. ASSESSMENT Febrile illness Troponin leak of unclear significance, no symptoms of angina Pancytopenia Hypomagnesemia Coronary artery disease status post PCI to the RCA in 1998 Ischemic cardiomyopathy Hypertension Dyslipidemia Former nicotine dependence PLAN Replace magnesium per protocol. Ongoing medical management. Follow-up with Dr. Ibrahim upon discharge. Nurse Practitioner note has been reviewed, I agree with a documented findings and plan of care. Patient was seen and examined. Objective - Vital Signs Vital signs: Vital Signs Temp 98.3 F 08/01/20 08:15 Pulse 86 08/01/20 08:15 Resp 16 08/01/20 08:15 BP 122/52 08/01/20 08:15 Pulse Ox 100 08/01/20 08:15 Intake & Output 07/31/20 08/01/20 08/01/20 18:59 06:59 18:59 Intake Total 900 500 Output Total 900 Balance 0 500 Weight 53.5 kg Intake: Oral 900 500 Output: Urine 900 Other: Voiding Method Toilet Toilet Bedside Commode Bedside Commode # Voids 1 1 # Bowel Movements 6 - Labs CBC & Chem 7: 08/01/20 07:46 08/01/20 07:46 Labs: Abnormal Lab Results - Last 24 Hours (Table) 07/31/20 07/31/20 08/01/20 Range/Units 06:34 16:25 07:46 RBC 2.80 L (3.80-5.40) m/uL Hgb 9.4 L (11.4-16.0) gm/dL Hct 26.5 L (34.0-46.0) % Plt Count 42 L (150-450) k/uL Sodium (137-145) mmol/L Chloride (98-107) mmol/L Carbon Dioxide (22-30) mmol/L Calcium (8.4-10.2) mg/dL Magnesium (1.6-2.3) mg/dL Total Bilirubin (0.2-1.3) mg/dL Unconjugated Bilirubin (0.0-1.1) mg/dL Delta Bilirubin (0.0-0.2) mg/dL AST (14-36) U/L C-Reactive Protein (<1.0) mg/dL Total Protein (6.3-8.2) g/dL Albumin (3.5-5.0) g/dL Procalcitonin 0.25 H (0.02-0.09) ng/mL Stool Occult Blood Positive H (Negative) 08/01/20 Range/Units 07:46 RBC (3.80-5.40) m/uL Hgb (11.4-16.0) gm/dL Hct (34.0-46.0) % Plt Count (150-450) k/uL Sodium 136 L (137-145) mmol/L Chloride 112 H (98-107) mmol/L Carbon Dioxide 19 L (22-30) mmol/L Calcium 8.1 L (8.4-10.2) mg/dL Magnesium 1.4 L (1.6-2.3) mg/dL Total Bilirubin 1.9 H (0.2-1.3) mg/dL Unconjugated Bilirubin 1.5 H (0.0-1.1) mg/dL Delta Bilirubin 0.4 H (0.0-0.2) mg/dL AST 39 H (14-36) U/L C-Reactive Protein 4.5 H (<1.0) mg/dL Total Protein 5.0 L (6.3-8.2) g/dL Albumin 2.5 L (3.5-5.0) g/dL Procalcitonin (0.02-0.09) ng/mL Stool Occult Blood (Negative) Microbiology - Last 24 Hours (Table) 07/30/20 19:07 Blood Culture - Preliminary Blood No Growth after 24 hours 07/30/20 19:07 Blood Culture - Preliminary Blood No Growth after 24 hours
--- NOTE | 2020-08-01 12:58 | P.PN ---
Subjective This is a pleasant 79 years old female with past medical history of chronic ITP (idiopathic thrombocytopenia), coronary artery disease status post stent , hypertension, hyperlipidemia, also patient stated that she has history of seizure Patient states she came originally because she was concerned regarding her worsening and tremor since last Tuesday about 3 days ago. Associated with fever and little exertional dyspnea. Patient feels generally weak with little, both limbs for the last 3 days. Also she has mild periumbilical pain and mild ten derness, no rebound tenderness, no nausea vomiting, no diarrhea. No dysuria or urination difficulty. She smokes about 3 cigarettes per day, she denies alcohol or illicit tracts On admission she has low grade temperature of 100.9. Rest of vitals are stable. Labs showing CBC unremarkable except for mild anemia of 11.0 and thrombocytopenia of 43 8. INR is 1.1, his metabolic panel and liver enzymes are unremarkable. Troponin are elevated at 0.06, 0.04 and 0.02. Urinalysis is suspicious for infe ction. A Coronavirus Is Not Detected. EKG showing normal sinus rhythm at [address]-T changes and left bundle branch block (seen in old EKG) Chest x-ray: Interstitial edema with superimposed infiltrates not exclude Emergency room patient received 1 L of normal saline, Tylenol and ibuprofen. Last echocardiogram in 2019 showing ejection fraction of 40-45% with moderate tricuspid regurgitation 08/01/2020 Patient today feels generally better, no shortness of breath, no abdominal pain, no constipation as she had one bowel movement yesterday after the lactulose. This anxious. Lites she was complaining of from some pain in the hip area and low back but now improved, she states that she has history of hip replacement but denies any recent fall. Workup revealing: CTA of the abdomen and pelvis showing cirrhosis and splenomegaly as well as fecal stasis. Mandible x-ray by ID team showing left mandibular lucency and the recommended CAT scan, we will defer to ID team. Echocardiogram showed ejection fraction of 35-40% with mild LVH and apical anterior wall hypokinesia. Totalcalcitonin is elevated at 0.25 and 0.36. Occult blood is positive in his stool however her anemia workup is negative including normal vitamin B12, folate and iron levels, no iron deficiency anemia. Repeat chest x-ray today showing no acute process. Her pancytopenia is a slightly improving. His blood pressure and vitals are stable and patient with no fever since admission She remains on Unasyn, doxycycline and D5 normal saline at 50 No subcutaneous heparin for anemia and thrombocytopenia. Business Intelligence Manager recommended to maximize medical treatment and follow-up with Dr. Cherry as an outpatient area no invasive cardiac procedures and her aspirin was discontinued due to thrombocytopenia Objective - Vital Signs Vital signs: Vital Signs Temp 98.3 F 08/01/20 11:15 Pulse 69 08/01/20 11:15 Resp 16 08/01/20 11:15 BP 119/61 08/01/20 11:15 Pulse Ox 100 08/01/20 11:15 Intake & Output 07/31/20 08/01/20 08/01/20 18:59 06:59 18:59 Intake Total 900 500 Output Total 900 Balance 0 500 Weight 53.5 kg Intake: Oral 900 500 Output: Urine 900 Other: Voiding Method Toilet Toilet Toilet Bedside Commode Bedside Commode Bedside Commode # Voids 1 1 # Bowel Movements 6 - Labs CBC & Chem 7: 08/01/20 07:46 08/01/20 07:46 Labs: Abnormal Lab Results - Last 24 Hours (Table) 07/31/20 07/31/20 08/01/20 Range/Units 06:34 16:25 07:46 RBC 2.80 L (3.80-5.40) m/uL Hgb 9.4 L (11.4-16.0) gm/dL Hct 26.5 L (34.0-46.0) % Plt Count 42 L (150-450) k/uL Sodium (137-145) mmol/L Chloride (98-107) mmol/L Carbon Dioxide (22-30) mmol/L Calcium (8.4-10.2) mg/dL Magnesium (1.6-2.3) mg/dL Total Bilirubin (0.2-1.3) mg/dL Unconjugated Bilirubin (0.0-1.1) mg/dL Delta Bilirubin (0.0-0.2) mg/dL AST (14-36) U/L C-Reactive Protein (<1.0) mg/dL Total Protein (6.3-8.2) g/dL Albumin (3.5-5.0) g/dL Procalcitonin 0.25 H (0.02-0.09) ng/mL Stool Occult Blood Positive H (Negative) 08/01/20 Range/Units 07:46 RBC (3.80-5.40) m/uL Hgb (11.4-16.0) gm/dL Hct (34.0-46.0) % Plt Count (150-450) k/uL Sodium 136 L (137-145) mmol/L Chloride 112 H (98-107) mmol/L Carbon Dioxide 19 L (22-30) mmol/L Calcium 8.1 L (8.4-10.2) mg/dL Magnesium 1.4 L (1.6-2.3) mg/dL Total Bilirubin 1.9 H (0.2-1.3) mg/dL Unconjugated Bilirubin 1.5 H (0.0-1.1) mg/dL Delta Bilirubin 0.4 H (0.0-0.2) mg/dL AST 39 H (14-36) U/L C-Reactive Protein 4.5 H (<1.0) mg/dL Total Protein 5.0 L (6.3-8.2) g/dL Albumin 2.5 L (3.5-5.0) g/dL Procalcitonin (0.02-0.09) ng/mL Stool Occult Blood (Negative) Microbiology - Last 24 Hours (Table) 07/30/20 19:07 Blood Culture - Preliminary Blood No Growth after 24 hours 07/30/20 19:07 Blood Culture - Preliminary Blood No Growth after 24 hours Assessment and Plan Assessment: Low-grade fever, mostly secondary to infected tooth in her left jaw. Positive occult blood in stool with no iron deficiency anemia consult GI team Elevated troponin not very suspicious for non-STEMI . Business Intelligence Manager. Business Intelligence Manager no further workup and patient can follow up with Dr. Ibrahim upon discharge Interstitial pulmonary edema with superimposed infiltrates cannot be excluded . However Repeat chest x-ray showed no acute process. Improved Hypertension Hyperlipidemia chronic systolic CHF with ejection fraction of 40-45%, with a history of moderate TR History of Coronary artery disease status post stent chronic ITP ( history of idiopathie thrombocytopenia) Plan: this is a pleasant 79 years old female who presents with infected tooth rather than pneumonia or numbness STEMI. Cardiology recommended conservative management. ID team place patient on Unasyn. Start doxycycline, patient has multiple medical ALLERGIES which limited her antibiotic choice. Consult infectious disease. Check C-reactive protein and procalcitonin Labs and medication were reviewed.. Continue same treatment. Continue with symptomatic treatment. Resume home medication. Monitor lytes and vitals. DVT and GI prophylaxis. Further recommendations depends on the clinical course of the patient DVT prophylaxis: Subcutaneous heparin GI Prophylaxis: Pepcid PT/OT: Pending Prognosis is guarded
--- NOTE | 2020-08-01 15:23 | P.CONS ---
History of Present Illness - Reason for Consult Consult date: 08/01/20 Positive occult stool Requesting physician: Corbin E Sheet - Chief Complaint Tremors and weakness - History of Present Illness The pleasant 71-year-old white female who presented to the emergency department 2 days ago with complaints of having tremors and weakness that began on Tuesday. He had also reported a nonproductive cough, denied any fevers or chills. She has a past medical history including a B12 deficiency, thrombocytopenia, chronic anemia, coronary artery disease, hyperlipidemia, hypertension, and cirrhosis of the liver. The patient is eating sitting up in the bedside chair with her daughter at the bedside. They state that she has been following Dr. Kan for thrombocytopenia, and as part of that workup was diagnosed with cirrhosis of the liver approximately 5 years ago. She's had no follow-up with any color sprayer regarding the cirrhosis of the liver, and states she's never had a history of alcohol abuse in the past or currently. She does state that she was very overweight at 1 time. During this hospitalization she was noted to be anemic, had a stool occult blood that was positive and therefore gastroenterology was consulted. On admission her hemoglobin was 11.0, today's labs WBC 3.9, hemoglobin 9.4, hematocrit 26.5, platelets 42,000. Iron 77, TIBC 252, saturation 30.56, ferritin 199. Total bilirubin 1.9, alkaline phosphatase 95, AST 39, ALT 20. Patient currently denies any tarry stools, she states her stools are dark due to oral iron, denies any mary beth red blood in her stool, abdominal pain, nausea, vomiting, or hematemesis. Patient states she had a colonoscopy that was normal estimating around 2013 or 2014. She also had undergone ERCP and November 2015 with a balloon sphincterotomy. He denies any reported EGDs in the past, history of peptic ulcer disease, or GERD. Also states that she does have hemorrhoids that bother her at times. CT of the abdomen was completed as part of her workup showing splenomegaly with marked varices again noted extending into the pelvis. Moderate fecal stasis. Changes of the cirrhotic liver disease Review of Systems REVIEW OF SYSTEMS: CARDIOPULMONARY: No chest pain or shortness of breath. Gastrointestinal: NO abdominal pain. No nausea or vomiting. No hematemesis, coffee-ground emesis. No rectal bleeding, or melena. GENITOURINARY: No dysuria or hematuria. MUSCULOSKELETAL: Reports normal range of motion., Joint pain. SKIN: No rashes. No jaundice. ENDOCRINE: No chills, fevers. No excessive weight gain or loss. No polydipsia or polyuria. PSYCHIATRIC: Unremarkable. NEUROLOGY: No change in mental status. Denies dizziness, headache. ENT: Vision unremarkable. CONSTITUTIONAL: No recent weight loss. No fever, chills, night sweats. Past Medical History Past Medical History: Blood Disorder, Coronary Artery Disease (CAD), Hyperlipidemia, Hypertension, Myocardial Infarction ([place]) Additional Past Medical History / Comment(s): Thrombocytopenia-sees Dr. Kan. 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, 11-28-15 ercp, left hip repair with rods 09-15-2018 Past Anesthesia/Blood Transfusion Reactions: No Reported Reaction Date of Last Stent Placement:: 1998 Past Psychological History: No Psychological Hx Reported Smoking Status: Never smoker Past Alcohol Use History: None Reported Additional Past Alcohol Use History / Comment(s): smokes maybe weekly- 1-2 cigarettes- had smoked and quit for 12 yrs and started up about 5 yrs ago again Past Drug Use History: None Reported - Past Family History Mother Family Medical History: Cancer Additional Family Medical History / Comment(s): Breast Ca Father Family Medical History: Myocardial Infarction ([place]) Additional Family Medical History / Comment(s): @ age 86 from [place] Medications and Allergies Home Medications Medication Instructions Recorded Confirmed Type Metoprolol Tartrate [Lopressor] 50 mg PO BID 03/09/15 07/30/20 History Isosorbide Mononitrate ER [Imdur] 60 mg PO DAILY 10/30/15 07/30/20 History Aspirin EC [Ecotrin Low Dose] 81 mg PO DAILY 09/12/18 07/30/20 History lisinopriL [Zestril] 15 mg PO DAILY 01/20/19 07/30/20 History Furosemide [Lasix] 40 mg PO DAILY #30 tab 01/22/19 07/30/20 Rx Ferrous Sulfate [Feosol] 325 mg PO DAILY 07/30/20 07/30/20 History Naproxen 500 mg PO Q12H 07/30/20 07/30/20 History Pravastatin Sodium 80 mg PO DAILY 07/30/20 07/30/20 History Primidone [Mysoline] 25 mg PO HS 07/30/20 07/30/20 History Amoxicillin/Potassium Clav 1 tab PO Q12HR 10 Days #20 tab 08/01/20 Rx [Augmentin 875-125 Tablet] Allergies Allergy/AdvReac Type Severity Reaction Status Date / Time cephalexin monohydrate Allergy Rash/Hives/ Verified 07/30/20 19:50 [From Keflex] Swelling codeine Allergy Unknown Verified 07/30/20 19:50 doxepin Allergy Rash/Hives Verified 07/30/20 19:50 meperidine HCl [From Demerol] Allergy Rash/Hives Verified 07/30/20 19:50 methylprednisolone Allergy Rash/Hives Verified 07/30/20 19:50 [From Medrol] Opioids - Morphine Analogues Allergy Rash/Hives Verified 07/30/20 19:50 Penicillins Allergy Swelling Verified 07/30/20 19:50 pentazocine lactate Allergy Rash/Hives-Stomach Verified 07/30/20 19:50 [From Talwin] Upset propoxyphene napsylate Allergy Rash/Hives- Verified 07/30/20 19:50 [From Darvocet-N] Itch Physical Exam Vitals: Vital Signs Temp Pulse Resp BP Pulse Ox 08/01/20 11:15 98.3 F 69 16 119/61 100 08/01/20 08:15 98.3 F 86 16 122/52 100 08/01/20 04:00 98.9 F 67 16 118/57 100 08/01/20 02:00 77 18 08/01/20 00:00 97.7 F 77 18 152/65 100 07/31/20 20:00 97.6 F 95 16 166/72 98 07/31/20 16:20 98.4 F 84 16 156/66 100 Intake and Output 07/31/20 08/01/20 08/01/20 22:59 06:59 14:59 Intake Total 660 500 Output Total 900 Balance -240 500 Intake: Oral 660 500 Output: Urine 900 Other: Voiding Method Toilet Toilet Toilet Bedside Commode Bedside Commode Bedside Commode # Voids 1 # Bowel Movements 6 Weight 53.5 kg General appearance: The patient is alert, oriented, appears in no acute distress. HET: Head is normocephalic and atraumatic. Conjunctiva pink. Sclera anicteric. Oropharynx is clear without lesions. Neck: Supple without lymphadenopathy. Trachea midline. Heart: S1 S2. Regular rate and rhythm. Lungs: Clear to auscultation. Abdomen: Soft, nontender, nondistended normal bowel sounds. Extremities: Normal skin color and turgor. No pedal edema. Neurological: No focal deficits. Alert and oriented 3. Results CBC & Chem 7: 08/01/20 07:46 08/01/20 07:46 Labs: Abnormal Lab Results - Last 24 Hours (Table) 07/31/20 07/31/20 08/01/20 Range/Units 06:34 16:25 07:46 RBC 2.80 L (3.80-5.40) m/uL Hgb 9.4 L (11.4-16.0) gm/dL Hct 26.5 L (34.0-46.0) % Plt Count 42 L (150-450) k/uL Sodium (137-145) mmol/L Chloride (98-107) mmol/L Carbon Dioxide (22-30) mmol/L Calcium (8.4-10.2) mg/dL Magnesium (1.6-2.3) mg/dL Total Bilirubin (0.2-1.3) mg/dL Unconjugated Bilirubin (0.0-1.1) mg/dL Delta Bilirubin (0.0-0.2) mg/dL AST (14-36) U/L C-Reactive Protein (<1.0) mg/dL Total Protein (6.3-8.2) g/dL Albumin (3.5-5.0) g/dL Procalcitonin 0.25 H (0.02-0.09) ng/mL Stool Occult Blood Positive H (Negative) 08/01/20 08/01/20 Range/Units 07:46 07:46 RBC (3.80-5.40) m/uL Hgb (11.4-16.0) gm/dL Hct (34.0-46.0) % Plt Count (150-450) k/uL Sodium 136 L (137-145) mmol/L Chloride 112 H (98-107) mmol/L Carbon Dioxide 19 L (22-30) mmol/L Calcium 8.1 L (8.4-10.2) mg/dL Magnesium 1.4 L (1.6-2.3) mg/dL Total Bilirubin 1.9 H (0.2-1.3) mg/dL Unconjugated Bilirubin 1.5 H (0.0-1.1) mg/dL Delta Bilirubin 0.4 H (0.0-0.2) mg/dL AST 39 H (14-36) U/L C-Reactive Protein 4.5 H (<1.0) mg/dL Total Protein 5.0 L (6.3-8.2) g/dL Albumin 2.5 L (3.5-5.0) g/dL Procalcitonin 0.36 H (0.02-0.09) ng/mL Stool Occult Blood (Negative) Microbiology - Last 24 Hours (Table) 07/30/20 19:07 Blood Culture - Preliminary Blood No Growth after 24 hours 07/30/20 19:07 Blood Culture - Preliminary Blood No Growth after [address] scan - abdomen: report reviewed (Splenomegaly with marked varices again noted extending into the pelvis, moderate fecal stasis, changes of the cirrhotic liver disease. Micronodular appearance of the liver may reflect underlying cirrhotic liver disease. Thepancreaticlesion.Biliarytreenormalcaliber.) Assessment and Plan (1) Positive occult stool blood test Narrative/Plan: 79-year-old female who presented to the emergency department with generalized weakness and tremors that began earlier this week. Patient has a history of vitamin B12 and iron deficiency and currently on oral iron. As part of her workup for anemia during this hospitalization she had a stool occult ordered that was positive. Patient denies any signs or symptoms of GI bleed. States she has dark stools related to her oral iron intake. She has history of a colonoscopy in 2013 or 15 which she states was normal. No prior history of EGD. CT of the abdomen was performed which does show moderate fecal stasis, with history of constipation and hemorrhoids. The patient follows closely with Dr. Kan for her vitamin B12 deficiency and thrombocytopenia. There are no plans for any endoscopic evaluation at this time, positive Hemoccult stool was likely related to history of hemorrhoids and constipation. Current Visit: Yes Status: Acute Code(s): R19.5 - OTHER FECAL ABNORMALITIES SNOMED Code(s): 67053556 (2) Normocytic normochromic anemia Current Visit: Yes Status: Acute Code(s): D64.9 - ANEMIA, UNSPECIFIED SNOMED Code(s): 28798852 (3) Cirrhosis of liver Current Visit: Yes Status: Acute Code(s): K74.60 - UNSPECIFIED CIRRHOSIS OF LIVER SNOMED Code(s): 71033775 (4) Vitamin B12 deficiency Current Visit: Yes Status: Acute Code(s): E53.8 - DEFICIENCY OF OTHER SPECIFIED B GROUP VITAMINS SNOMED Code(s): 207317308 (5) Generalized weakness Current Visit: Yes Status: Acute Code(s): R53.1 - WEAKNESS SNOMED Code(s): 97991690 (6) Thrombocytopenia Current Visit: No Status: Chronic Code(s): D69.6 - THROMBOCYTOPENIA, UNSPECIFIED SNOMED Code(s): 200193259 Plan: Continue symptomatic support of care Iron studies ordered and reviewed Continue outpatient follow-up with hematology No plans on any endoscopic evaluation at this time, can consider outpatient workup Recommend outpatient follow-up for cirrhosis of the liver, anemia Patient may be discharged home from a gastroenterology standpoint, she has a scheduled appointment on 08/14/2020 Thank you for this consultation, we will continue to follow Dr. Lee I agree with the dictator's note, documented as a scribe by Angelia Shi.
--- NOTE | 2020-08-01 15:59 | PN ---
PROGRESS NOTE DATE OF SERVICE: 08/01/2020. REASON FOR FOLLOWUP: Fever possible infected left lower jaw tooth. INTERVAL HISTORY: The patient is currently afebrile. Patient is feeling better, still had discomfort to the left lower jaw tooth area and mentioned she did have an appointment to see her dentist for removal of it. Still has some abdominal pain, but no vomiting. No diarrhea or constipation. No chest pain, shortness of breath or cough. PHYSICAL EXAMINATION: Blood pressure 119/61, pulse of 69, temperature 98.3. She is 100% on room air. General description is an elderly female up in the chair in no distress. RESPIRATORY SYSTEM: Unlabored breathing, clear to auscultation anteriorly. HEART: S1, S2. Regular rate and rhythm. ABDOMEN: Soft, no tenderness. LABS: Hemoglobin 9.4, white count 3.9, BUN of 15, creatinine 0.78. DIAGNOSTIC IMPRESSION AND PLAN: Patient with fever source is likely left lower jaw infected tooth which needs to be removed and the patient does have appointment to see her dentist. She has been insisting on going home with overall improvement of the fever with Unasyn. Antibiotic will be switched over to Augmentin 875 b.i.d. for 10 days. Prescription sent to pharmacy and close outpatient followup. MMODL / IJN: [id number] /
--- NOTE | 2020-08-02 00:18 | P.DS ---
Providers Date of admission: 07/30/20 20:14 Attending physician: Betsy Kruger Consults: 07/30/20 23:57 Consult Physician Routine Consulting Provider: Dale Truong Consult Reason/Comments: elevated troponin Do you want consulting provider notified?: Yes, Notify in am 07/31/20 06:19 Consult Physician Urgent Consulting Provider: Kristal Hammer Consult Reason/Comments: fever Do you want consulting provider notified?: Yes 08/01/20 12:47 Consult Physician Urgent Consulting Provider: Errol Lee Consult Reason/Comments: positive Occult blood in stool, anemia ,no EUN Do you want consulting provider notified?: Yes Primary care physician: Stated None Hospital Course: Diagnoses: Low-grade fever, secondary to infected tooth in her left jaw. Positive occult blood in stool with no iron deficiency anemia. Cleared by GI team for discharge and follow-up as an outpatient Elevated troponin not very suspicious for non-STEMI . Carding Supervisor no further workup and patient can follow up with Dr. Ibrahim upon discharge Interstitial pulmonary edema with superimposed infiltrates cannot be excluded . However Repeat chest x-ray showed no acute process. Improved Cirrhosis with splenomegaly on CAT scan of the abdomen. Follow-up with GI team as an outpatient Hypertension Hyperlipidemia chronic systolic CHF with ejection fraction of -45%, with a history of moderate TR History of Coronary artery disease status post stent chronic ITP ( history of idiopathie thrombocytopenia) Hospital course: This is a pleasant 79 years old female with past medical history of chronic ITP (idiopathic thrombocytopenia), coronary artery disease status post stent , hypertension, hyperlipidemia, also patient stated that she has history of seizure Patient states she came originally because she was concerned regarding her worsening and tremor since last Tuesday about 3 days ago. Associated with fever and little exertional dyspnea. CTA of the abdomen and pelvis showing cirrhosis and splenomegaly as well as fecal stasis. Mandible x-ray by ID team showing left mandibular lucency and the recommended CAT scan, patient was treated with Unasyn and gentle hydration and internal WISH to Augmentin upon discharge by ID team. - Occult blood is positive in his stool however her anemia workup is negative, cleared by GI team for discharge and follow-up outpatient for her anemia and cirrhosis. Also referred to other sales support worker as an outpatient for her anemia and thrombocytopenia and blood disease. - Carding Supervisor recommended to maximize medical treatment and follow-up with Dr. Cherry as an outpatient area no invasive cardiac procedures and her aspirin was discontinued due to thrombocytopenia On the day of discharge patient denies abdominal pain, no dyspnea, no chest pain, her tremor is significantly improved, she had 1 bowel movement yesterday and her constipation improved. Patient was cleared for discharge by GI and infectious disease team. Also industrial electrician journeyman cleared her to go home today. Problems and management plan were discussed with the patient and he verbalized understanding and acceptance Patient was found stable and can be discharged home however he needs follow-up as an outpatient. Patient was instructed to follow up with PCP within one week and patient agrees Patient was instructed to follow up with Dr. Eli other sales support worker in 2 week, Dr. Cherry industrial electrician journeyman in 1-2 weeks, patient agrees and states she will make her appointments. Also she agrees with the appointments made for her with Dr. Hammer 08/12 and in Physical exam Gen: patient is a AAOx3, no distress CVS: S1-S2, RRR, no murmur Lungs: B/L CTA, no wheezing Abdomen: soft, no distention, no tenderness, positive bowel sounds Extremity: no leg edema or induration Time spent more than 35 minutes Plan - Discharge Summary Discharge Rx Participant: No New Discharge Prescriptions: New Omeprazole Magnesium [PriLOSEC] 20 mg PO DAILY #30 tablet. Amoxicillin/Potassium Clav [Augmentin 875-125 Tablet] 1 tab PO Q12HR 10 Days #20 tab Docusate [Colace] 100 mg PO BID PRN #10 cap PRN Reason: Constipation Continue Metoprolol Tartrate [Lopressor] 50 mg PO BID Isosorbide Mononitrate ER [Imdur] 60 mg PO DAILY Aspirin EC [Ecotrin Low Dose] 81 mg PO DAILY lisinopriL [Zestril] 15 mg PO DAILY Furosemide [Lasix] 40 mg PO DAILY #30 tab Ferrous Sulfate [Iron (65 MG Elemental)] 325 mg PO DAILY Pravastatin Sodium 80 mg PO DAILY Primidone [Mysoline] 25 mg PO HS Discontinued Naproxen 500 mg PO Q12H Discharge Medication List Metoprolol Tartrate [Lopressor] 50 mg PO BID 03/09/15 [History] Isosorbide Mononitrate ER [Imdur] 60 mg PO DAILY 10/30/15 [History] Aspirin EC [Ecotrin Low Dose] 81 mg PO DAILY 09/12/18 [History] lisinopriL [Zestril] 15 mg PO DAILY 01/20/19 [History] Furosemide [Lasix] 40 mg PO DAILY #30 tab 01/22/19 [Rx] Ferrous Sulfate [Iron (65 MG Elemental)] 325 mg PO DAILY 07/30/20 [History] Pravastatin Sodium 80 mg PO DAILY 07/30/20 [History] Primidone [Mysoline] 25 mg PO HS 07/30/20 [History] Amoxicillin/Potassium Clav [Augmentin 875-125 Tablet] 1 tab PO Q12HR 10 Days #20 tab 08/01/20 [Rx] Docusate [Colace] 100 mg PO BID PRN #10 cap 08/01/20 [Rx] Omeprazole Magnesium [PriLOSEC] 20 mg PO DAILY #30 tablet. 08/01/20 [Rx] Follow up Appointment(s)/Referral(s): Cayden Eli MD [STAFF PHYSICIAN] - 2 Weeks (Hematogist for your anemia and low platelet count. Patient to schedule appointment, as office is closed at time of discharge. Ensure the office this is following an hospital stay.) Helder Ibrahim MD [STAFF PHYSICIAN] - 2 Weeks None,Stated [Primary Care Provider] - 1-2 days Kristal Hammer MD [STAFF PHYSICIAN] - 08/12/20 2:00 pm Errol Lee MD [STAFF PHYSICIAN] - 08/14/20 9:30 am (Meg Siddiqui POWDER HAND) Patient Instructions/Handouts: Weakness (DC) Activity/Diet/Wound Care/Special Instructions: Gave patient a copy of goodRx card to give to her [facility], her real card will be mailed to her home. heart healthy diet activity is restricted till you see your doctor Discharge Disposition: HOME WITH HOME HEALTH SERVICES
== END 2020-08-01 19:11 | disposition home health service (06) | DRG 158 ==
LOC: EC 18:16 → 3SCARD 20:14
PROVIDERS: ADMIT Hospitalist; ATTEND Hospitalist
DX: K04.7 Periapical abscess without sinus (principal); K92.1 Melena; I50.22 Chronic systolic (congestive) heart failure; D61.818 Other pancytopenia; D69.3 Immune thrombocytopenic purpura; K64.9 Unspecified hemorrhoids; K74.60 Unspecified cirrhosis of liver; Z20.822 Contact with and (suspected) exposure to COVID-19; E53.8 Deficiency of other specified B group vitamins; E78.5 Hyperlipidemia, unspecified; E83.42 Hypomagnesemia; F17.210 Nicotine dependence, cigarettes, uncomplicated; I11.0 Hypertensive heart disease with heart failure; I25.10 Atherosclerotic heart disease of native coronary artery without angina pectoris; I25.2 Old myocardial infarction; I25.5 Ischemic cardiomyopathy; I27.20 Pulmonary hypertension, unspecified; I08.2 Rheumatic disorders of both aortic and tricuspid valves; I44.7 Left bundle-branch block, unspecified; R77.8 Other specified abnormalities of plasma proteins; Z79.82 Long term (current) use of aspirin; R25.1 Tremor, unspecified; Z79.899 Other long term (current) drug therapy; Z80.3 Family history of malignant neoplasm of breast; K59.00 Constipation, unspecified; Z82.49 Family history of ischemic heart disease and other diseases of the circulatory system; Z88.1 Allergy status to other antibiotic agents; Z90.710 Acquired absence of both cervix and uterus; Z95.5 Presence of coronary angioplasty implant and graft; Z96.649 Presence of unspecified artificial hip joint; Z88.5 Allergy status to narcotic agent; Z88.0 Allergy status to penicillin; Z88.8 Allergy status to other drugs, medicaments and biological substances
CPT/HCPCS: 36415; 70110; 71045; 71046; 74177; 80048; 80053; 80076; 81001; 82272; 82607; 82728; 82746; 83540; 83550; 83605; 83735; 84145; 84484; 85025; 85027; 85610; 85730; 86140; 87040; 87635; 93005; 93306; 96360; 99285

== ENCOUNTER 2021-07-06 10:29 | Inpatient (IN) | payer MEDICARE ==
--- NOTE | 2021-07-06 13:54 | ED ---
General Adult HPI - History of Present Illness Initial comments: Patient was initially treated as a paper chart due to unexpected EMR down time. Please see paper chart for detailed history and physical. Briefly, patient is 80-year-old female presents to the emergency department for atypical chest pain typical features. Patient was given aspirin by EMS. She was given nitroglycerin. Upon arrival to the emergency room patient is asymptomatic. She does have history of coronary artery disease. EKG does not show any signs of ischemia or infarction. Laboratory evaluation obtained. Patient has no homicidal ED with a platelet 47. Coag panel is unremarkable. Metabolic panel is unremarkable. Troponin is negative. Urinalysis is negative. His Doppler study shows no findings of DVT. Chest x-ray shows no acute processes. Radiology recommended correlating for interstitial lung disease or pneumonitis. Patient is not having respiratory symptoms. He is reminded bedside at 4:45 PM found to be in stable medical condition she continues to be asymptomatic. Patient has cardiac risk factors she'll be admitted observation for surgical and psychological consultation. - Related Data Home Medications Medication Instructions Recorded Confirmed Metoprolol Tartrate [Lopressor] 50 mg PO BID 03/09/15 07/06/21 Isosorbide Mononitrate ER [Imdur] 60 mg PO DAILY 10/30/15 07/06/21 Aspirin EC [Ecotrin Low Dose] 81 mg PO DAILY 09/12/18 07/06/21 lisinopriL [Zestril] 15 mg PO DAILY 01/20/19 07/06/21 Ferrous Sulfate [Iron (65 MG 325 mg PO DAILY 07/30/20 07/06/21 Elemental)] Pravastatin Sodium 80 mg PO DAILY 07/30/20 07/06/21 Primidone [Mysoline] 50 mg PO HS 07/30/20 07/06/21 Furosemide [Lasix] 40 mg PO DAILY PRN 07/06/21 07/06/21 Omeprazole Magnesium [PriLOSEC] 20 mg PO DAILY PRN 07/06/21 07/06/21 Previous Rx's Medication Instructions Recorded Docusate [Colace] 100 mg PO BID PRN #10 cap 08/01/20 Allergies Allergy/AdvReac Type Severity Reaction Status Date / Time cephalexin monohydrate Allergy Rash/Hives/ Verified 07/06/21 15:07 [From Keflex] Swelling codeine Allergy Rash/Hives Verified 07/06/21 15:07 doxepin Allergy Rash/Hives Verified 07/06/21 15:07 meperidine HCl [From Demerol] Allergy Rash/Hives Verified 07/06/21 15:07 methylprednisolone Allergy Rash/Hives Verified 07/06/21 15:07 [From Medrol] Opioids - Morphine Analogues Allergy Rash/Hives Verified 07/06/21 15:07 Penicillins Allergy Swelling Verified 07/06/21 15:07 over entire body pentazocine lactate Allergy Rash/Hives-Stomach Verified 07/06/21 15:07 [From Talwin] Upset propoxyphene napsylate Allergy Rash/Hives- Verified 07/06/21 15:07 [From Darvocet-N] Itch tramadol Allergy Rash/Hives Verified 07/06/21 15:07 Review of Systems ROS Statement: Those systems with pertinent positive or pertinent negative responses have been documented in the HPI. ROS Other: All systems not noted in ROS Statement are negative. Past Medical History Past Medical History: Blood Disorder, Coronary Artery Disease (CAD), Hyperlipidemia, Hypertension, Myocardial Infarction ([place]) Additional Past Medical History / Comment(s): Thrombocytopenia-sees Dr. Kan. 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, left hip repair with rods 09-15-2018 Past Anesthesia/Blood Transfusion Reactions: No Reported Reaction Date of Last Stent Placement:: 1998 Past Psychological History: No Psychological Hx Reported Smoking Status: Never smoker Past Alcohol Use History: None Reported Additional Past Alcohol Use History / Comment(s): smokes maybe weekly- 1-2 cigarettes- had smoked and quit for 12 yrs and started up about 5 yrs ago again Past Drug Use History: None Reported - Past Family History Mother Family Medical History: Cancer Additional Family Medical History / Comment(s): Breast Ca Father Family Medical History: Myocardial Infarction ([place]) Additional Family Medical History / Comment(s): @ age 86 from [place] Course Vital Signs 07/06/21 11:20 Temperature 97.6 F Pulse Rate 70 Respiratory 18 Rate Blood Pressure 162/66 O2 Sat by Pulse 99 Oximetry Medical Decision Making - Lab Data Result diagrams: 07/06/21 12:05 07/06/21 12:05 Lab Results 07/06/21 07/06/21 07/06/21 Range/Units 12:05 12:05 12:05 WBC 3.6 L (3.8-10.6) k/uL RBC 3.43 L (3.80-5.40) m/uL Hgb 11.5 (11.4-16.0) gm/dL Hct 33.5 L (34.0-46.0) % MCV 97.6 (80.0-100.0) fL MCH 33.6 (25.0-35.0) pg MCHC 34.4 (31.0-37.0) g/dL RDW 14.9 (11.5-15.5) % Plt Count 47 L (150-450) k/uL MPV 9.7 Neutrophils % 71 % Lymphocytes % 18 % Monocytes % 7 % Eosinophils % 1 % Basophils % 1 % Neutrophils # 2.5 (1.3-7.7) k/uL Lymphocytes # 0.6 L (1.0-4.8) k/uL Monocytes # 0.2 (0-1.0) k/uL Eosinophils # 0.1 (0-0.7) k/uL Basophils # 0.0 (0-0.2) k/uL Poikilocytosis Slight PT (9.0-12.0) sec INR (<1.2) APTT (22.0-30.0) sec Sodium 142 (137-145) mmol/L Potassium 4.7 (3.5-5.1) mmol/L Chloride 117 H (98-107) mmol/L Carbon Dioxide 20 L (22-30) mmol/L Anion Gap 5 mmol/L BUN 20 H (7-17) mg/dL Creatinine 0.85 (0.52-1.04) mg/dL Est GFR (CKD-EPI)AfAm 76 (>60 ml/min/1.73 sqM) Est GFR (CKD-EPI)NonAf 66 (>60 ml/min/1.73 sqM) Glucose 108 H (74-99) mg/dL Calcium 8.5 (8.4-10.2) mg/dL Magnesium 1.6 (1.6-2.3) mg/dL Total Bilirubin 1.4 H (0.2-1.3) mg/dL AST 26 (14-36) U/L ALT 14 (4-34) U/L Alkaline Phosphatase 103 (38-126) U/L Troponin I <0.012 (0.000-0.034) ng/mL Total Protein 5.7 L (6.3-8.2) g/dL Albumin 2.9 L (3.5-5.0) g/dL Urine Color Urine Appearance (Clear) Urine pH (5.0-8.0) Ur Specific Whitmer (1.001-1.035) Urine Protein (Negative) Urine Glucose (UA) (Negative) Urine Ketones (Negative) Urine Blood (Negative) Urine Nitrite (Negative) Urine Bilirubin (Negative) Urine Urobilinogen (<2.0) mg/dL Ur Leukocyte Esterase (Negative) Urine WBC (0-5) /hpf Ur Squamous Epith Cells (0-4) /hpf Urine Bacteria (None) /hpf Urine Mucus (None) /hpf 07/06/21 07/06/21 Range/Units 12:05 12:05 WBC (3.8-10.6) k/uL RBC (3.80-5.40) m/uL Hgb (11.4-16.0) gm/dL Hct (34.0-46.0) % MCV (80.0-100.0) fL MCH (25.0-35.0) pg MCHC (31.0-37.0) g/dL RDW (11.5-15.5) % Plt Count (150-450) k/uL MPV Neutrophils % % Lymphocytes % % Monocytes % % Eosinophils % % Basophils % % Neutrophils # (1.3-7.7) k/uL Lymphocytes # (1.0-4.8) k/uL Monocytes # (0-1.0) k/uL Eosinophils # (0-0.7) k/uL Basophils # (0-0.2) k/uL Poikilocytosis PT 12.1 H (9.0-12.0) sec INR 1.1 (<1.2) APTT 24.8 (22.0-30.0) sec Sodium (137-145) mmol/L Potassium (3.5-5.1) mmol/L Chloride (98-107) mmol/L Carbon Dioxide (22-30) mmol/L Anion Gap mmol/L BUN (7-17) mg/dL Creatinine (0.52-1.04) mg/dL Est GFR (CKD-EPI)AfAm (>60 ml/min/1.73 sqM) Est GFR (CKD-EPI)NonAf (>60 ml/min/1.73 sqM) Glucose (74-99) mg/dL Calcium (8.4-10.2) mg/dL Magnesium (1.6-2.3) mg/dL Total Bilirubin (0.2-1.3) mg/dL AST (14-36) U/L ALT (4-34) U/L Alkaline Phosphatase (38-126) U/L Troponin I (0.000-0.034) ng/mL Total Protein (6.3-8.2) g/dL Albumin (3.5-5.0) g/dL Urine Color Light Yellow Urine Appearance Clear (Clear) Urine pH 6.5 (5.0-8.0) Ur Specific Whitmer 1.004 (1.001-1.035) Urine Protein Negative (Negative) Urine Glucose (UA) Negative (Negative) Urine Ketones Negative (Negative) Urine Blood Negative (Negative) Urine Nitrite Negative (Negative) Urine Bilirubin Negative (Negative) Urine Urobilinogen <2.0 (<2.0) mg/dL Ur Leukocyte Esterase Negative (Negative) Urine WBC <1 (0-5) /hpf Ur Squamous Epith Cells 1 (0-4) /hpf Urine Bacteria Rare H (None) /hpf Urine Mucus Rare H (None) /hpf Disposition Clinical Impression: Chest pain Disposition: ADMITTED IP TO THIS HOSP Condition: Fair Referrals: Jose Hicks [Primary Care Provider] - 1-2 days Decision Time: 16:45
--- NOTE | 2021-07-06 15:03 | US ---
EXAMINATION TYPE: US venous doppler duplex LE DATE OF EXAM: 07/06/2021 2:50 PM COMPARISON: US 2019 CLINICAL HISTORY: pain. Bilateral leg pain SIDE PERFORMED: Bilateral TECHNIQUE: The lower extremity deep venous system is examined utilizing real time linear array sonog asher with graded compression, doppler sonography and color-flow sonography. VESSELS IMAGED: Common Femoral Vein Deep Femoral Vein Greater Saphenous Vein * Femoral Vein Popliteal Vein Small Saphenous Vein * Proximal Calf Veins (* superficial vessels) Right Leg: Appears negative for DVT Left Leg: Appears negative for DVT IMPRESSION: Grayscale, color doppler, spectral doppler imaging performed of the deep veins of the lo wer extremities. There is normal flow, compressibility, vascular waveforms.
[2021-07-06 15:13] LABS: INR 1.1 (<1.2); Partial Thromboplastin Time 24.8 sec (22.0-30.0); Prothrombin Time 12.1 sec (9.0-12.0)
[2021-07-06 15:44] LABS: HCT 33.5 % (34.0-46.0); HGB 11.5 gm/dL (11.4-16.0); MCH 33.6 pg (25.0-35.0); MCHC 34.4 g/dL (31.0-37.0); MCV 97.6 fL (80.0-100.0); RBC 3.43 m/uL (3.80-5.40); RDW 14.9 % (11.5-15.5); WBC 3.6 k/uL (3.8-10.6)
[2021-07-06 15:45] LABS: Basophils % (A) 1 %; Eosinophils % (A) 1 %; Lymphocytes # (A) 0.6 k/uL (1.0-4.8); Lymphocytes % (A) 18 %; Mean Platelet Volume 9.7; Monocytes % (A) 7 %; Neutrophils # (A) 2.5 k/uL (1.3-7.7); Neutrophils % (A) 71 %; Platelet Count 47 k/uL (150-450); Poikilocytosis Slight
[2021-07-06 15:46] LABS: Eosinophils # (A) 0.1 k/uL (0-0.7); Monocytes # (A) 0.2 k/uL (0-1.0)
[2021-07-06 15:52] LABS: Albumin 2.9 g/dL (3.5-5.0); Calcium 8.5 mg/dL (8.4-10.2); Magnesium 1.6 mg/dL (1.6-2.3); Potassium 4.7 mmol/L (3.5-5.1); Total Bilirubin 1.4 mg/dL (0.2-1.3); Total Protein 5.7 g/dL (6.3-8.2)
--- NOTE | 2021-07-06 16:16 | XR ---
EXAMINATION TYPE: XR chest 2V DATE OF EXAM: 07/06/2021 COMPARISON: 08/01/2020 TECHNIQUE: PA and lateral views submitted. HISTORY: Chest pain FINDINGS: The lungs are clear and there is no pneumothorax, pleural effusion, or focal pneumonia. Atheroscler otic change aorta. Arthropathy of the shoulders with diffuse osteopenia. Coarsened interstitium. Hear t size is prominent. Degenerative changes of the spine. IMPRESSION: 1. Correlate for chronic interstitial lung disease or interstitial pneumonitis..
[2021-07-06 16:19] LABS: Appearance,Urine Clear (Clear); Bacteria,Urine Rare /hpf; Bilirubin,Urine Negative (Negative); Blood,Urine Negative (Negative); Color,Urine Light Yellow; Glucose,Urine (UA) Negative (Negative); Ketones,Urine Negative (Negative); Leukocyte Esterase,Urine Negative (Negative); Mucus,Urine Rare /hpf; Nitrite,Urine Negative (Negative); PH, Urine 6.5 (5.0-8.0); Protein,Urine Negative (Negative); Specific Gravity,Urine 1.004 (1.001-1.035); Squamous Epithelial Cell,Urine 1 /hpf (0-4); Urobilinogen,Urine <2.0 mg/dL (<2.0); WBC,Urine <1 /hpf (0-5)
[2021-07-06] MEDS ORDERED: NITROGLYCERIN SL TABS 0.4 MG TAB SUBLINGUAL PRN (16:45)
[2021-07-06] MEDS ORDERED: DOCUSATE 100 MG CAP PO PRN (16:51)
[2021-07-06] MEDS ORDERED: PANTOPRAZOLE 40 MG TABLET PO PRN (16:51)
[2021-07-06] MEDS ORDERED: NALOXONE 0.4 MG/ML 1 ML VIAL IV PRN (16:53)
--- NOTE | 2021-07-06 17:10 | P.HPIM ---
History of Present Illness H&P Date: 07/06/21 Chief Complaint: Chest pain Patient is 80-year-old female presents to the emergency department for chest pain 2 weeks. Patient brought to the emergency room by ambulance. She was given aspirin by EMS. She was given nitroglycerin. Upon arrival to the emergency room patient is asymptomatic. She does have history of coronary artery disease status post stent. EKG does not show any signs of ischemia or infarction. Laboratory evaluation obtained. Patient has no homicidal ED with a platelet 47. Coag panel is unremarkable. Metabolic panel is unremarkable. Troponin is negative. Urinalysis is negative. His Doppler study shows no findings of DVT. Chest x-ray shows no acute processes. Radiology recommended correlating for interstitial lung disease or pneumonitis. Patient is not having respiratory symptoms. Patient denies any fever or chills. Patient has been complaining of cough. Lower extremity edema worse on the right side than the left. Review of Systems All 14 review of systems evaluated and all negative except for above. Past Medical History Past Medical History: Blood Disorder, Coronary Artery Disease (CAD), Hyperlipidemia, Hypertension, Myocardial Infarction ([place]) Additional Past Medical History / Comment(s): Thrombocytopenia-sees Dr. Kan. 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, left hip repair with rods 09-15-2018 Past Anesthesia/Blood Transfusion Reactions: No Reported Reaction Date of Last Stent Placement:: 1998 Past Psychological History: No Psychological Hx Reported Smoking Status: Never smoker Past Alcohol Use History: None Reported Additional Past Alcohol Use History / Comment(s): smokes maybe weekly- 1-2 cigarettes- had smoked and quit for 12 yrs and started up about 5 yrs ago again Past Drug Use History: None Reported - Past Family History Mother Family Medical History: Cancer Additional Family Medical History / Comment(s): Breast Ca Father Family Medical History: Myocardial Infarction ([place]) Additional Family Medical History / Comment(s): @ age 86 from [place] Medications and Allergies Home Medications Medication Instructions Recorded Confirmed Type Metoprolol Tartrate [Lopressor] 50 mg PO BID 03/09/15 07/06/21 History Isosorbide Mononitrate ER [Imdur] 60 mg PO DAILY 10/30/15 07/06/21 History Aspirin EC [Ecotrin Low Dose] 81 mg PO DAILY 09/12/18 07/06/21 History lisinopriL [Zestril] 15 mg PO DAILY 01/20/19 07/06/21 History Ferrous Sulfate [Iron (65 MG 325 mg PO DAILY 07/30/20 07/06/21 History Elemental)] Pravastatin Sodium 80 mg PO DAILY 07/30/20 07/06/21 History Primidone [Mysoline] 50 mg PO HS 07/30/20 07/06/21 History Docusate [Colace] 100 mg PO BID PRN #10 cap 08/01/20 07/06/21 Rx Furosemide [Lasix] 40 mg PO DAILY PRN 07/06/21 07/06/21 History Omeprazole Magnesium [PriLOSEC] 20 mg PO DAILY PRN 07/06/21 07/06/21 History Allergies Allergy/AdvReac Type Severity Reaction Status Date / Time cephalexin monohydrate Allergy Rash/Hives/ Verified 07/06/21 15:07 [From Keflex] Swelling codeine Allergy Rash/Hives Verified 07/06/21 15:07 doxepin Allergy Rash/Hives Verified 07/06/21 15:07 meperidine HCl [From Demerol] Allergy Rash/Hives Verified 07/06/21 15:07 methylprednisolone Allergy Rash/Hives Verified 07/06/21 15:07 [From Medrol] Opioids - Morphine Analogues Allergy Rash/Hives Verified 07/06/21 15:07 Penicillins Allergy Swelling Verified 07/06/21 15:07 over entire body pentazocine lactate Allergy Rash/Hives-Stomach Verified 07/06/21 15:07 [From Talwin] Upset propoxyphene napsylate Allergy Rash/Hives- Verified 07/06/21 15:07 [From Darvocet-N] Itch tramadol Allergy Rash/Hives Verified 07/06/21 15:07 Physical Exam Vitals: Vital Signs Temp Pulse Resp BP Pulse Ox 07/06/21 11:20 97.6 F 70 18 162/66 99 Intake and Output 07/06/21 07/06/21 07/06/21 06:59 14:59 22:59 Other: Weight 66.678 kg General: non toxic, no distress, appears at stated age Derm: warm, dry Head: atraumatic, normocephalic, symmetric Eyes: EOMI, no lid lag, anicteric sclera Mouth: no lip lesion, mucus membranes moist Cardiovascular: S1S2 reg, no murmur, positive posterior tibial pulse bilateral, Lungs: CTA bilateral, no rhonchi, no rales , no accessory muscle use Abdominal: soft, nontender to palpation, no guarding, no appreciable organome laurel Ext: No extremity edema worse on the right than the left. no gross muscle atrophy, no edema, no contractures Neuro: CN II-XI grossly intact, no focal neuro deficits Psych: Alert, oriented 2, appropriate affect Results CBC & Chem 7: 07/06/21 12:05 07/06/21 12:05 Labs: Abnormal Lab Results - Last 24 Hours (Table) 07/06/21 07/06/21 07/06/21 Range/Units 12:05 12:05 12:05 WBC 3.6 L (3.8-10.6) k/uL RBC 3.43 L (3.80-5.40) m/uL Hct 33.5 L (34.0-46.0) % Plt Count 47 L (150-450) k/uL Lymphocytes # 0.6 L (1.0-4.8) k/uL PT 12.1 H (9.0-12.0) sec Chloride 117 H (98-107) mmol/L Carbon Dioxide 20 L (22-30) mmol/L BUN 20 H (7-17) mg/dL Glucose 108 H (74-99) mg/dL Total Bilirubin 1.4 H (0.2-1.3) mg/dL Total Protein 5.7 L (6.3-8.2) g/dL Albumin 2.9 L (3.5-5.0) g/dL Urine Bacteria (None) /hpf Urine Mucus (None) /hpf 07/06/21 Range/Units 12:05 WBC (3.8-10.6) k/uL RBC (3.80-5.40) m/uL Hct (34.0-46.0) % Plt Count (150-450) k/uL Lymphocytes # (1.0-4.8) k/uL PT (9.0-12.0) sec Chloride (98-107) mmol/L Carbon Dioxide (22-30) mmol/L BUN (7-17) mg/dL Glucose (74-99) mg/dL Total Bilirubin (0.2-1.3) mg/dL Total Protein (6.3-8.2) g/dL Albumin (3.5-5.0) g/dL Urine Bacteria Rare H (None) /hpf Urine Mucus Rare H (None) /hpf Assessment and Plan Assessment: Assessment and plan: #Chest pain -Patient history coronary disease status post stent -Admitted to observation status to rule out acute coronary syndrome -CT of the chest to rule out PE or underlying lung pathology -Cardiology consulted -Resume beta magnus, aspirin and statins #History of ischemic cardiac myopathy #Acute on chronic systolic heart failure -Check Pro BNP -EF 35-40% on July 2020 -Start IV Lasix 40 mg daily -Check 2-D echo -Resume beta magnus lisinopril #History of chronic ITP -Platelet count of baseline #Hypertension #Dyslipidemia #Full code #DVT prophylaxis SCDs and ambulate the patient
[2021-07-06] MEDS ORDERED: IPRATROPIUM-ALBUTEROL 3 ML NEB INHALATION PRN (17:12)
[2021-07-06] MEDS: HYDROcodone/APAP 5-325MG 1 EACH TAB PO PRN (17:49)
--- NOTE | 2021-07-06 18:34 | CT ---
EXAMINATION TYPE: CT chest angio for PE DATE OF EXAM: 07/06/2021 COMPARISON: 01/20/2019 HISTORY: Chest pain with dyspnea. CT DLP: 335.8 mGycm Automated exposure control for dose reduction was used. CONTRAST: Performed with IV Contrast, patient injected with 80 mL of Isovue 370. There are 3-D postprocess images. The lungs are clear of consolidation. No evidence of a pulmonary mass. No pleural effusion. Heart is borderline enlarged. No pericardial effusion. There are no hilar masses. There is no mediastinal adenopathy. There are a few paratracheal lymph nod es less than 1 cm. Thoracic aorta is intact. As the attending aorta measures 3.5 cm. There is degener ative spurring in the thoracic spine. There is mild thoracic dextroscoliosis. No compression fracture . There is no evidence of filling defect in the pulmonary arteries. IMPRESSION: No evidence of pulmonary embolism. Atheromatous aorta. Asymmetric left thyroid gland enlargement also present on old exam and not significantly different.
[2021-07-06] MEDS ORDERED: ONDANSETRON 4 MG/2 ML VIAL IVP STA (20:53)
[2021-07-06] MEDS: PRIMIDONE 50 MG TAB PO SCH (22:06)
[2021-07-06] MEDS: METOPROLOL TARTRATE 50 MG TAB PO SCH (22:06)
[2021-07-07] MEDS ORDERED: HEPARIN SODIUM 1,000 UN/ML (10ML VL) IV ONE (00:10)
[2021-07-07] MEDS ORDERED: HEPARIN SODIUM 1,000 UN/ML (10ML VL) IV PRN (00:10)
[2021-07-07] MEDS: HEPARIN SOD,PORK IN 0.45% NACL 25,000 UNIT in 0.45% NACL 1 250ML.BAG IV SCH ×2 (00:57→22:37)
[2021-07-07] MEDS: HYDROcodone/APAP 5-325MG 1 EACH TAB PO PRN ×4 (00:58→22:56)
[2021-07-07 08:42] LABS: Basophils % (A) 0 %; Eosinophils # (A) 0.1 k/uL (0-0.7); Eosinophils % (A) 3 %; HCT 32.4 % (34.0-46.0); HGB 11.2 gm/dL (11.4-16.0); Lymphocytes # (A) 0.9 k/uL (1.0-4.8); Lymphocytes % (A) 24 %; MCH 34.3 pg (25.0-35.0); MCHC 34.7 g/dL (31.0-37.0); MCV 98.9 fL (80.0-100.0); Macrocytosis Slight; Mean Platelet Volume 9.4; Monocytes # (A) 0.2 k/uL (0-1.0); Monocytes % (A) 6 %; Neutrophils # (A) 2.4 k/uL (1.3-7.7); Neutrophils % (A) 64 %; Poikilocytosis Slight; RBC 3.28 m/uL (3.80-5.40); WBC 3.8 k/uL (3.8-10.6)
[2021-07-07 08:44] LABS: Platelet Count 48 k/uL (150-450)
--- NOTE | 2021-07-07 08:58 | P.CRDCN ---
History of Present Illness Consult date: 07/07/21 Consult reason: chest pain History of present illness: 80-year-old lady with history of hypertension involuntary movement disorder dyslipidemia coronary artery disease status post prior angioplasty comes to Hospital complaining of an episode of chest discomfort. She describes it as a precordial chest pressure mild to moderate intensity at rest with radiation to left arm. She came to hospital and after being treated with IV heparin and nitrates became chest pain-free. Her troponins are mildly elevated. In EKG shows sinus rhythm with left bundle branch block. She sees my associate Dr. Cherry in the office. Hasn't had a recent cardiac cat heterization. Given the known coronary artery disease and clinical presentation consistent with non-ST segment elevation TN I advised the patient to undergo cardiac catheterization for further evaluation. Patient was explained of risk benefits and alternatives understood and accepted. Unfortunately patient already had her breakfast this morning. We will schedule this tomorrow. Constitutional: Denies chills. Denies fever. Eyes: Denies blurred vision. Denies pain. Ears, nose, mouth and throat: Denies headache. Denies sore throat. Cardiovascular: Significant for chest pain Denies shortness of breath. Respiratory: Denies cough. Gastrointestinal: Denies abdominal pain. Denies diarrhea. Denies nausea. Denies vomiting. Musculoskeletal: Denies myalgias. Integumentary: Denies pruritus. Denies rash. Neurological: Denies numbness. Denies weakness. Significant for movement disorder Psychiatric: Denies anxiety. Denies depression. Endocrine: Denies fatigue. Denies weight change. Genitourinary: Denies burning, hematuria, frequency of urination. Hematological: No anemia or excess bleeding. General: The patient is awake and alert, in no distress, and does not appear acutely ill. Skin: Skin is warm and dry and no rashes or lesions are noted. Eye: Pupils are equal, round and reactive to light, extra-ocular movements are intact; there is normal conjunctiva bilaterally. Ears, nose, mouth and throat: There are moist mucous membranes and no oral lesions. Neck: The neck is supple, there is no tenderness or JVD. Cardiovascular: There is a regular rate and rhythm. No murmur, rub or gallop is appreciated. Respiratory: Lungs are clear to auscultation, respirations are non-labored, breath sounds are equal. Gastrointestinal: Soft, non-distended, non-tender abdomen without masses or organomegaly noted. There is no rebound or guarding present. Bowel sounds are unremarkable. Back: There is no tenderness to palpation in the midline. There is no obvious deformity. Musculoskeletal: Normal ROM, no tenderness, There is no pedal edema. There is no calf tenderness or swelling. Extremities: Moderate right leg edema Vascular: Femoral pulse is normal. Posterior tibial pulses are normal .Dorsalis pedis is palpable. Neurological: CN II-XII intact. There are no obvious motor or sensory deficits. Speech is normal. Psychiatric: Cooperative, appropriate mood & affect, normal judgment. Labs: Hemoglobin is 11.2 platelet count is low at 48 d-dimer is elevated at 1.95 Potassium is 4.7 creatinine is 0.85 EKG shows sinus rhythm with left bundle branch block Troponin is elevated Computed tomography scan of the chest is negative for pulmonary embolism Venous duplex of the right leg is negative for DVT Assessment and plan: Acute non-ST segment elevation [place] Severe thrombocytopenia Known CAD status post prior angioplasty Right leg edema of unclear etiology I will obtain a 2-D echo given the thrombocytopenia I'm going to hold the heparin at this time and get input from hematology Patient will need a cardiac catheterization after we addressed the issues of thrombocytopenia Past Medical History Past Medical History: Blood Disorder, Coronary Artery Disease (CAD), Hyperlipidemia, Hypertension, Myocardial Infarction ([place]) Additional Past Medical History / Comment(s): Thrombocytopenia-sees Dr. Kan. 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, left hip repair with rods 09-15-2018 Past Anesthesia/Blood Transfusion Reactions: No Reported Reaction Date of Last Stent Placement:: 1998 Past Psychological History: No Psychological Hx Reported Smoking Status: Never smoker Past Alcohol Use History: None Reported Past Drug Use History: None Reported - Past Family History Mother Family Medical History: Cancer Additional Family Medical History / Comment(s): Breast Ca Father Family Medical History: Myocardial Infarction ([place]) Additional Family Medical History / Comment(s): @ age 86 from [place] Medications and Allergies Home Medications Medication Instructions Recorded Confirmed Type Metoprolol Tartrate [Lopressor] 50 mg PO BID 03/09/15 07/06/21 History Isosorbide Mononitrate ER [Imdur] 60 mg PO DAILY 10/30/15 07/06/21 History Aspirin EC [Ecotrin Low Dose] 81 mg PO DAILY 09/12/18 07/06/21 History lisinopriL [Zestril] 15 mg PO DAILY 01/20/19 07/06/21 History Ferrous Sulfate [Iron (65 MG 325 mg PO DAILY 07/30/20 07/06/21 History Elemental)] Pravastatin Sodium 80 mg PO DAILY 07/30/20 07/06/21 History Primidone [Mysoline] 50 mg PO HS 07/30/20 07/06/21 History Docusate [Colace] 100 mg PO BID PRN #10 cap 08/01/20 07/06/21 Rx Furosemide [Lasix] 40 mg PO DAILY PRN 07/06/21 07/06/21 History Omeprazole Magnesium [PriLOSEC] 20 mg PO DAILY PRN 07/06/21 07/06/21 History Allergies Allergy/AdvReac Type Severity Reaction Status Date / Time cephalexin monohydrate Allergy Rash/Hives/ Verified 07/06/21 15:07 [From Keflex] Swelling codeine Allergy Rash/Hives Verified 07/06/21 15:07 doxepin Allergy Rash/Hives Verified 07/06/21 15:07 meperidine HCl [From Demerol] Allergy Rash/Hives Verified 07/06/21 15:07 methylprednisolone Allergy Rash/Hives Verified 07/06/21 15:07 [From Medrol] Opioids - Morphine Analogues Allergy Rash/Hives Verified 07/06/21 15:07 Penicillins Allergy Swelling Verified 07/06/21 15:07 over entire body pentazocine lactate Allergy Rash/Hives-Stomach Verified 07/06/21 15:07 [From Talwin] Upset propoxyphene napsylate Allergy Rash/Hives- Verified 07/06/21 15:07 [From Darvocet-N] Itch tramadol Allergy Rash/Hives Verified 07/06/21 15:07 Physical Exam Vitals: Vital Signs Temp Pulse Resp BP Pulse Ox 07/07/21 07:27 97.9 F 63 16 153/60 99 07/07/21 05:00 68 18 07/07/21 04:00 82 18 07/07/21 03:00 88 18 07/07/21 02:00 97.8 F 65 18 165/72 07/07/21 01:00 65 18 07/07/21 00:00 65 18 167/72 07/06/21 22:00 97.9 F 74 16 167/72 98 07/06/21 11:20 97.6 F 70 18 162/66 99 Results 07/07/21 08:10 07/06/21 12:05 Cardiac Enzymes 07/06/21 07/06/21 07/06/21 Range/Units 12:05 12:05 19:50 AST 26 (14-36) U/L Troponin I <0.012 0.039 H* (0.000-0.034) ng/mL 07/06/21 Range/Units 22:41 AST (14-36) U/L Troponin I 0.119 H* (0.000-0.034) ng/mL Coagulation 07/06/21 Range/Units 12:05 PT 12.1 H (9.0-12.0) sec APTT 24.8 (22.0-30.0) sec CBC 07/06/21 07/07/21 Range/Units 12:05 08:10 WBC 3.6 L 3.8 (3.8-10.6) k/uL RBC 3.43 L 3.28 L (3.80-5.40) m/uL Hgb 11.5 11.2 L (11.4-16.0) gm/dL Hct 33.5 L 32.4 L (34.0-46.0) % Plt Count 47 L 48 L (150-450) k/uL Comprehensive Metabolic Panel 07/06/21 Range/Units 12:05 Sodium 142 (137-145) mmol/L Potassium 4.7 (3.5-5.1) mmol/L Chloride 117 H (98-107) mmol/L Carbon Dioxide 20 L (22-30) mmol/L BUN 20 H (7-17) mg/dL Creatinine 0.85 (0.52-1.04) mg/dL Glucose 108 H (74-99) mg/dL Calcium 8.5 (8.4-10.2) mg/dL AST 26 (14-36) U/L ALT 14 (4-34) U/L Alkaline Phosphatase 103 (38-126) U/L Total Protein 5.7 L (6.3-8.2) g/dL Albumin 2.9 L (3.5-5.0) g/dL Current Medications Generic Name Dose Route Start Last Admin Trade Name Freq PRN Reason Stop Dose Admin Hydrocodone Bitart/Acetaminophen 1 each 07/06/21 17:28 07/07/21 07:34 Hydrocodone/Apap 5-325mg 1 Each Tab PO 1 each Q6HR PRN Administration Pain Albuterol/Ipratropium 3 ml 07/06/21 17:12 Ipratropium-Albuterol 3 Ml Neb INHALATION RT-QID PRN Shortness Of Breath Or Wheezing Aspirin 81 mg 07/07/21 09:00 Aspirin 81 Mg PO DAILY [facility] Docusate Sodium 100 mg 07/06/21 16:51 Docusate 100 Mg Cap PO BID PRN Constipation Ferrous Sulfate 325 mg 07/07/21 09:00 Ferrous Sulfate 325 Mg Tab PO DAILY [facility] Heparin Sodium (Porcine) 0 unit 07/07/21 00:10 Heparin Sodium 1,000 Un/Ml (10ml Vl) IV Q6HR PRN Low PTT Protocol Heparin Sodium/Sodium Chloride 250 mls @ 8.001 mls/hr 07/07/21 00:10 07/07/21 00:57 25,000 unit/ Sodium Chloride IV 12 units/kg/hr .Q24H RONI 8.001 mls/hr Administration Protocol 12 UNITS/KG/HR Isosorbide Mononitrate 60 mg 07/07/21 09:00 Isosorbide Mononitrate Er 60 Mg Tab.Er.24h PO DAILY [facility] Lisinopril 15 mg 07/07/21 09:00 Lisinopril 5 Mg Tab PO DAILY [facility] Metoprolol Tartrate 50 mg 07/06/21 21:00 07/06/21 22:06 Metoprolol Tartrate 50 Mg Tab PO 50 mg BID RONI Administration Naloxone HCl 0.2 mg 07/06/21 16:53 Naloxone 0.4 Mg/Ml 1 Ml Vial IV Q2M PRN Opioid Reversal Nitroglycerin 0.4 mg 07/06/21 16:45 Nitroglycerin Sl Tabs 0.4 Mg Tab SUBLINGUAL Q5M PRN Chest Pain Pantoprazole Sodium 40 mg 07/06/21 16:51 Pantoprazole 40 Mg Tablet PO DAILY PRN acid reflux Pravastatin Sodium 80 mg 07/07/21 09:00 Pravastatin Sodium 80 Mg Tab PO DAILY RONI Primidone 50 mg 07/06/21 21:00 07/06/21 22:06 Primidone 50 Mg Tab PO 50 mg HS RONI Administration 07/07/21 08:10 07/06/21 12:05
[2021-07-07] MEDS ORDERED: ASPIRIN 325 MG TAB PO SCH (09:00)
[2021-07-07 09:08] LABS: ALT 14 U/L (4-34); AST 26 U/L (14-36); African American GFR (CKD) 71 (>60 ml/min/1.73 sqM); Albumin 2.8 g/dL (3.5-5.0); Alkaline Phosphatase 90 U/L (38-126); Anion Gap 4 mmol/L; Blood Urea Nitrogen 17 mg/dL (7-17); Calcium 8.3 mg/dL (8.4-10.2); Carbon Dioxide 20 mmol/L (22-30); Chloride 114 mmol/L (98-107); Globulin 2.8 g/dL; Glucose 93 mg/dL (74-99); Non-African American GFR(CKD) 62 (>60 ml/min/1.73 sqM); Potassium 4.5 mmol/L (3.5-5.1); Sodium 138 mmol/L (137-145); Total Bilirubin 1.5 mg/dL (0.2-1.3); Total Protein 5.6 g/dL (6.3-8.2)
[2021-07-07] MEDS: METOPROLOL TARTRATE 50 MG TAB PO SCH ×2 (09:15→19:53)
--- NOTE | 2021-07-07 11:24 | P.CONS ---
History of Present Illness - Reason for Consult Consult date: 07/07/21 thrombocytopenia Requesting physician: Ambrosio Sheppard - Chief Complaint atypical chest pain - History of Present Illness Mrs. Rosas is a very pleasant female patient of Dr. 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 She also receives B12 Q 3 mo for deficiency. Patient has a history of coronary artery disease, she had stent placed in 1994. Patient has been on aspirin chronically. Daughter and pt deny history of GI bleeding but, there was documentation of suspected GI bleeding in 2013. 09/29 she had left femur fracture after a fall, with intramedullary nailing by Dr. Dozier on 09/15/18. She was prescribed 30 days of eliquis twice a day postoperatively and took for at least 3 weeks, stopped due to epistaxis that was difficult to stop. She has remianed on ASA as prescribed by [employer] consistently without uncontrolled bleeding, but very easy bruising. She fell again and required another left hip surgery on 10/18/2018, she had blood transfusion after the surgery, no reported bleeding otherwise. She was last seen in the office 06/22/21. Patient is currently admitted with atypical chest pain, serial elevated troponins, cardiology evaluating the patient for possible catheterization. She is not experiencing any chest pain or SOB when seen. Review of Systems 10 point review of systems is negative except as stated in HPI Past Medical History Past Medical History: Blood Disorder, Coronary Artery Disease (CAD), GERD/Reflux, Hyperlipidemia, Hypertension, [place] Inf[place]ction ([place]), Osteoarth ritis ([place]) Additional Past Medical History / Comment(s): 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 Kan). 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, 11-28-15 ercp, left hip repair with rods 09-15-2018 Past Anesthesia/Blood Transfusion Reactions: No Reported Reaction Date of Last Stent Placement:: 1998 Past Psychological History: No Psychological Hx Reported Smoking Status: Never smoker Past Alcohol Use History: None Reported Past Drug Use History: None Reported - Past Family History Mother Family Medical History: Cancer Additional Family Medical History / Comment(s): Breast Ca Father Family Medical History: Myocardial Infarction ([place]) Additional Family Medical History / Comment(s): @ age 86 from [place] Medications and Allergies Home Medications Medication Instructions Recorded Confirmed Type Metoprolol Tartrate [Lopressor] 50 mg PO BID 03/09/15 07/06/21 History Isosorbide Mononitrate ER [Imdur] 60 mg PO DAILY 10/30/15 07/06/21 History Aspirin EC [Ecotrin Low Dose] 81 mg PO DAILY 09/12/18 07/06/21 History lisinopriL [Zestril] 15 mg PO DAILY 01/20/19 07/06/21 History Ferrous Sulfate [Iron (65 MG 325 mg PO DAILY 07/30/20 07/06/21 History Elemental)] Pravastatin Sodium 80 mg PO DAILY 07/30/20 07/06/21 History Primidone [Mysoline] 50 mg PO HS 07/30/20 07/06/21 History Docusate [Colace] 100 mg PO BID PRN #10 cap 08/01/20 07/06/21 Rx Furosemide [Lasix] 40 mg PO DAILY PRN 07/06/21 07/06/21 History Omeprazole Magnesium [PriLOSEC] 20 mg PO DAILY PRN 07/06/21 07/06/21 History Allergies Allergy/AdvReac Type Severity Reaction Status Date / Time cephalexin monohydrate Allergy Rash/Hives/ Verified 07/06/21 15:07 [From Keflex] Swelling codeine Allergy Rash/Hives Verified 07/06/21 15:07 doxepin Allergy Rash/Hives Verified 07/06/21 15:07 meperidine HCl [From Demerol] Allergy Rash/Hives Verified 07/06/21 15:07 methylprednisolone Allergy Rash/Hives Verified 07/06/21 15:07 [From Medrol] Opioids - Morphine Analogues Allergy Rash/Hives Verified 07/06/21 15:07 Penicillins Allergy Swelling Verified 07/06/21 15:07 over entire body pentazocine lactate Allergy Rash/Hives-Stomach Verified 07/06/21 15:07 [From Talwin] Upset propoxyphene napsylate Allergy Rash/Hives- Verified 07/06/21 15:07 [From An-N] Itch tramadol Allergy Rash/Hives Verified 07/06/21 15:07 Physical Exam Vitals: Vital Signs Temp Pulse Resp BP Pulse Ox 07/07/21 09:10 65 07/07/21 07:27 97.9 F 63 16 153/60 99 07/07/21 05:00 68 18 07/07/21 04:00 82 18 07/07/21 03:00 88 18 07/07/21 02:00 97.8 F 65 18 165/72 07/07/21 01:00 65 18 07/07/21 00:00 65 18 167/72 07/06/21 22:00 97.9 F 74 16 167/72 98 07/06/21 11:20 97.6 F 70 18 162/66 99 - Constitutional General appearance: average body habitus, cooperative, no acute distress - EENT Eyes: anicteric sclerae, EOMI ENT: hearing grossly normal - Neck Neck: no lymphadenopathy - Respiratory Respiratory: bilateral: CTA - Cardiovascular Rhythm: regular Heart sounds: normal: S1, S2 Abnormal Heart Sounds: no systolic murmur, no diastolic murmur, no rub, no S3 Gallop, no S4 Gallop, no click, no other leg Peripheral Edema: bilateral: None - Gastrointestinal General gastrointestinal: no absent bowel sounds, no decreased bowel sounds, no distended, no hepatomegaly, no hyperactive bowel sounds, normal bowel sounds, no organomegaly, no rigid, no scaphoid, soft, splenomegaly, no tenderness, no umbilical hernia, no ventral hernia - Neurologic Neurologic: CNII-XII intact - Musculoskeletal Musculoskeletal: generalized weakness - Psychiatric Psychiatric: A&O x's 3, appropriate affect, intact judgment & insight Results CBC & Chem 7: 07/07/21 08:10 07/07/21 08:10 Labs: Abnormal Lab Results - Last 24 Hours (Table) 07/06/21 07/06/21 07/06/21 Range/Units 12:05 12:05 12:05 WBC 3.6 L (3.8-10.6) k/uL RBC 3.43 L (3.80-5.40) m/uL Hgb (11.4-16.0) gm/dL Hct 33.5 L (34.0-46.0) % Plt Count 47 L (150-450) k/uL Lymphocytes # 0.6 L (1.0-4.8) k/uL PT 12.1 H (9.0-12.0) sec APTT (22.0-30.0) sec D-Dimer (<0.60) mg/L FEU Chloride 117 H (98-107) mmol/L Carbon Dioxide 20 L (22-30) mmol/L BUN 20 H (7-17) mg/dL Glucose 108 H (74-99) mg/dL Calcium (8.4-10.2) mg/dL Total Bilirubin 1.4 H (0.2-1.3) mg/dL Troponin I (0.000-0.034) ng/mL Total Protein 5.7 L (6.3-8.2) g/dL Albumin 2.9 L (3.5-5.0) g/dL Urine Bacteria (None) /hpf Urine Mucus (None) /hpf 07/06/21 07/06/21 07/06/21 Range/Units 12:05 19:22 19:50 WBC (3.8-10.6) k/uL RBC (3.80-5.40) m/uL Hgb (11.4-16.0) gm/dL Hct (34.0-46.0) % Plt Count (150-450) k/uL Lymphocytes # (1.0-4.8) k/uL PT (9.0-12.0) sec APTT (22.0-30.0) sec D-Dimer 1.95 H (<0.60) mg/L FEU Chloride (98-107) mmol/L Carbon Dioxide (22-30) mmol/L BUN (7-17) mg/dL Glucose (74-99) mg/dL Calcium (8.4-10.2) mg/dL Total Bilirubin (0.2-1.3) mg/dL Troponin I 0.039 H* (0.000-0.034) ng/mL Total Protein (6.3-8.2) g/dL Albumin (3.5-5.0) g/dL Urine Bacteria Rare H (None) /hpf Urine Mucus Rare H (None) /hpf 07/06/21 07/07/21 07/07/21 Range/Units 22:41 08:10 08:10 WBC (3.8-10.6) k/uL RBC 3.28 L (3.80-5.40) m/uL Hgb 11.2 L (11.4-16.0) gm/dL Hct 32.4 L (34.0-46.0) % Plt Count 48 L (150-450) k/uL Lymphocytes # 0.9 L (1.0-4.8) k/uL PT (9.0-12.0) sec APTT (22.0-30.0) sec D-Dimer (<0.60) mg/L FEU Chloride 114 H (98-107) mmol/L Carbon Dioxide 20 L (22-30) mmol/L BUN (7-17) mg/dL Glucose (74-99) mg/dL Calcium 8.3 L (8.4-10.2) mg/dL Total Bilirubin 1.5 H (0.2-1.3) mg/dL Troponin I 0.119 H* (0.000-0.034) ng/mL Total Protein 5.6 L (6.3-8.2) g/dL Albumin 2.8 L (3.5-5.0) g/dL Urine Bacteria (None) /hpf Urine Mucus (None) /hpf 07/07/21 07/07/21 Range/Units 08:10 08:10 WBC (3.8-10.6) k/uL RBC (3.80-5.40) m/uL Hgb (11.4-16.0) gm/dL Hct (34.0-46.0) % Plt Count (150-450) k/uL Lymphocytes # (1.0-4.8) k/uL PT (9.0-12.0) sec APTT 185.7 H* (22.0-30.0) sec D-Dimer (<0.60) mg/L FEU Chloride (98-107) mmol/L Carbon Dioxide (22-30) mmol/L BUN (7-17) mg/dL Glucose (74-99) mg/dL Calcium (8.4-10.2) mg/dL Total Bilirubin (0.2-1.3) mg/dL Troponin I 0.103 H* (0.000-0.034) ng/mL Total Protein (6.3-8.2) g/dL Albumin (3.5-5.0) g/dL Urine Bacteria (None) /hpf Urine Mucus (None) /hpf Chest x-ray: report reviewed CT scan - chest: report reviewed Venous US: report reviewed Assessment and Plan (1) Cirrhosis of liver Current Visit: No Status: Chronic Priority: Medium Code(s): K74.60 - UNSPECIFIED CIRRHOSIS OF LIVER SNOMED Code(s): 57146187 (2) Vitamin B12 deficiency Current Visit: No Status: Chronic Priority: Medium Code(s): E53.8 - DEFI CIENCY OF OTHER SPECIFIED B GROUP VITAMINS SNOMED Code(s): 953119033 (3) Chronic ITP (idiopathic thrombocytopenia) Current Visit: No Status: Chronic Priority: Medium Code(s): D69.3 - IMMUNE THROMBOCYTOPENIC PURPURA SNOMED Code(s): 91481013 Plan: Dr. Eli discussed the case with Cardiology. 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 Recommendation for procedures is, if platelets are less than 50,000, plan for infusion of platelets during procedure. If patient requires correction antiplatelet therapy was discussed with patient and her family, risk versus benefit. Patient will be at higher risk for bleeding. Patient has been on long-term baby aspirin with thankfully, no bleeding reported. If she has catheterization and there is need for stent then, dual antiplatelet therapy will be necessary for a period of time. Again, unfortunately this is a risk that the patient may have to take. Pending Cardiology evaluation and recommendations. Did discuss the case with Nursing. We are available if there are any other questions or concerns. Doctor attests: I performed a history and physical examination of this patient, developed impression and plan of care, discussed with dictator. I agree with dictators note, documented as a scribe.
--- NOTE | 2021-07-07 12:57 | P.PN ---
Subjective Progress Note Date: 07/07/21 Hospital course: Patient is a very pleasant 80-year-old female with a past medical history of CAD with previous [place] and stents, hypertension, hyperlipidemia, and chronic thrombocytopenia. She presented to the emergency department with a chief complaint of chest pain. She underwent full evaluation in the emergency department. EKG was completed revealing normal sinus rhythm at 67 bpm with a left bundle branch block unchanged from previous EKG completed 07/30/2020. Initial troponin less than 0.012. D-dimer elevated at 1.95. CTA negative for PE revealing atheromatous aorta. Bilateral lower extremity Dopplers completed secondary to bilateral lower extremity edema, Dopplers negative for DVTs. Chest x-ray completed negative for acute process correlating for chronic interstitial lung disease or interstitial pneumonitis. CBC consistent with patient's chronic thrombocytopenia with platelet count of 47. Patient was admitted under our services with consultation to cardiology. Troponins were trended and elevated from less than 0.012 to 0.039 to 0.119 to 0.103. Patient diagnosed as NSTEMI and started on heparin infusion. Lipid profile was completed unremarkable. Physical exam: Patient seen and fully evaluated at the bedside this morning. Patient resting comfortably with daughter at bedside. Patient reports currently chest pain has resolved and reports only complaint is feeling tired. Patient reports she did not sleep very well. Patient currently denies having any headache, lightheadedness, dizziness, chest pain, palpitations, or shortness of breath. Vital signs reviewed and stable. General: Nontoxic, no distress and appears stated age. Derm: Skin warm and dry, normal coloration for ethnicity. Head: Atraumatic, normocephalic and symmetric. Eyes: EOMs intact, no lid lag, and anicteric sclera Mouth: no lip lesions, mucus membranes moist Cardiovascular: regular rate and rhythm with normal S1S2, no murmur, positive posterior tibial pulses bilaterally, and cap refill < 2 seconds. Bilateral lower extremity edema, left lower extremity 1+ pitting edema and right lower extremity 2-3+ pitting edema (left leg is chronically smaller than right secon philippe to previous injuries and surgeries per patient's daughter) Lungs: Respirations even, regular, and unlabored on room air. Lungs CTA bilaterally, no rhonchi, no rales, no wheezing, and no accessory muscle usage. Abdominal: soft, nontender to palpation, no guarding, no appreciable organomegaly Ext: ROM intact. No gross muscle atrophy, no edema, no contractures Neuro: Speech clear, face symmetrical and CN II-XII grossly intact with no noted focal neuro deficits Psych: Alert and oriented to person, place, time, and situation. Appropriate and pleasant affect. Assessment and Plan of Care: NSTEMI Acute on chronic systolic heart failure with previously known EF of 35-40% Hypertension Hyperlipidemia History of CAD with stents -Cardiology following, recommending cardiac cath once cleared by hematology secondary to severe thrombocytopenia -ProBNP 1330 -Telemetry monitoring -Cardiac diet, NPO at midnight -Aspirin, atorvastatin, and metoprolol -Lipid profile unremarkable. -Echocardiogram completed and pending results Elevated d-dimer, CTA negative for PE Chronic thrombocytopenia -Hematology following CODE STATUS: Full code DVT prophylaxis: Heparin infusion Discussed with: Patient, patient's daughter, and RN Anticipated discharge date: Clinical course to determine Anticipated discharge place: Home A total of 39 minutes was spent on the care of this complex patient more than 50% of the time was spent in counseling and care coordination. I reviewed the documentation as provided by the STEFANIA above, who is the original author of this note. I agree with the documented assessment and plan, with the following changes: None Objective - Vital Signs Vital signs: Vital Signs Temp 97.9 F 07/07/21 07:27 Pulse 59 L 07/07/21 12:18 Resp 18 07/07/21 12:18 BP 144/61 07/07/21 12:18 Pulse Ox 98 07/07/21 12:18 Intake & Output 07/06/21 07/07/21 07/07/21 18:59 06:59 18:59 Weight 66.678 kg - Labs CBC & Chem 7: 07/07/21 08:10 07/07/21 08:10 Labs: Abnormal Lab Results - Last 24 Hours (Table) 07/06/21 07/06/21 07/06/21 Range/Units 12:05 12:05 12:05 WBC 3.6 L (3.8-10.6) k/uL RBC 3.43 L (3.80-5.40) m/uL Hgb (11.4-16.0) gm/dL Hct 33.5 L (34.0-46.0) % Plt Count 47 L (150-450) k/uL Lymphocytes # 0.6 L (1.0-4.8) k/uL PT 12.1 H (9.0-12.0) sec APTT (22.0-30.0) sec D-Dimer (<0.60) mg/L FEU Chloride 117 H (98-107) mmol/L Carbon Dioxide 20 L (22-30) mmol/L BUN 20 H (7-17) mg/dL Glucose 108 H (74-99) mg/dL Calcium (8.4-10.2) mg/dL Total Bilirubin 1.4 H (0.2-1.3) mg/dL Troponin I (0.000-0.034) ng/mL Total Protein 5.7 L (6.3-8.2) g/dL Albumin 2.9 L (3.5-5.0) g/dL HDL Cholesterol (40.00-60.00) mg/dL Urine Bacteria (None) /hpf Urine Mucus (None) /hpf 07/06/21 07/06/21 07/06/21 Range/Units 12:05 19:22 19:50 WBC (3.8-10.6) k/uL RBC (3.80-5.40) m/uL Hgb (11.4-16.0) gm/dL Hct (34.0-46.0) % Plt Count (150-450) k/uL Lymphocytes # (1.0-4.8) k/uL PT (9.0-12.0) sec APTT (22.0-30.0) sec D-Dimer 1.95 H (<0.60) mg/L FEU Chloride (98-107) mmol/L Carbon Dioxide (22-30) mmol/L BUN (7-17) mg/dL Glucose (74-99) mg/dL Calcium (8.4-10.2) mg/dL Total Bilirubin (0.2-1.3) mg/dL Troponin I 0.039 H* (0.000-0.034) ng/mL Total Protein (6.3-8.2) g/dL Albumin (3.5-5.0) g/dL HDL Cholesterol (40.00-60.00) mg/dL Urine Bacteria Rare H (None) /hpf Urine Mucus Rare H (None) /hpf 04/07/07/21 07/07/21 Range/Units 22:41 08:10 08:10 WBC (3.8-10.6) k/uL RBC 3.28 L (3.80-5.40) m/uL Hgb 11.2 L (11.4-16.0) gm/dL Hct 32.4 L (34.0-46.0) % Plt Count 48 L (150-450) k/uL Lymphocytes # 0.9 L (1.0-4.8) k/uL PT (9.0-12.0) sec APTT (22.0-30.0) sec D-Dimer (<0.60) mg/L FEU Chloride 114 H (98-107) mmol/L Carbon Dioxide 20 L (22-30) mmol/L BUN (7-17) mg/dL Glucose (74-99) mg/dL Calcium 8.3 L (8.4-10.2) mg/dL Total Bilirubin 1.5 H (0.2-1.3) mg/dL Troponin I 0.119 H* (0.000-0.034) ng/mL Total Protein 5.6 L (6.3-8.2) g/dL Albumin 2.8 L (3.5-5.0) g/dL HDL Cholesterol 67.20 H (40.00-60.00) mg/dL Urine Bacteria (None) /hpf Urine Mucus (None) /hpf 07/07/21 07/07/21 Range/Units 08:10 08:10 WBC (3.8-10.6) k/uL RBC (3.80-5.40) m/uL Hgb (11.4-16.0) gm/dL Hct (34.0-46.0) % Plt Count (150-450) k/uL Lymphocytes # (1.0-4.8) k/uL PT (9.0-12.0) sec APTT 185.7 H* (22.0-30.0) sec D-Dimer (<0.60) mg/L FEU Chloride (98-107) mmol/L Carbon Dioxide (22-30) mmol/L BUN (7-17) mg/dL Glucose (74-99) mg/dL Calcium (8.4-10.2) mg/dL Total Bilirubin (0.2-1.3) mg/dL Troponin I 0.103 H* (0.000-0.034) ng/mL Total Protein (6.3-8.2) g/dL Albumin (3.5-5.0) g/dL HDL Cholesterol (40.00-60.00) mg/dL Urine Bacteria (None) /hpf Urine Mucus (None) /hpf
[2021-07-07] MEDS: ASPIRIN 81 MG PO SCH (16:59)
[2021-07-07] MEDS: lisinopriL 5 MG TAB PO SCH (16:59)
[2021-07-07] MEDS: PRAVASTATIN SODIUM 80 MG TAB PO SCH (16:59)
[2021-07-07] MEDS: FERROUS SULFATE 325 MG TAB PO SCH (17:00)
[2021-07-07] MEDS: ISOSORBIDE MONONITRATE ER 60 MG TAB.ER.24H PO SCH (17:00)
--- NOTE | 2021-07-07 18:12 | CA ---
Transthoracic Echo Report Name: Gemma Rosas Age: 80 Gender: F : 1940 Exam Date: 07/07/2021 08:29 Exam Location: [facility] Ht (in): 60 Wt (lb): 147 Ordering Physician: Ramos Rivsa MD Attending/Referring Phys: [id number] Optical Glass Inspector Laura Nayak, LUKE Procedure CPT: Indications: Chest Pain Cardiac Hx: CAD, HTN, DE Technical Quality: Contrast 1: Total Dose (mL): Contrast 2: Total Dose (mL): MEASUREMENTS (Male / Female) Normal Values 2D ECHO LV Diastolic Diameter PLAX 5.3 cm 4.2 - 5.9 / 3.9 - 5.3 cm LV Systolic Diameter PLAX 4.2 cm IVS Diastolic Thickness 1.2 cm 0.6 - 1.0 / 0.6 - 0.9 cm LVPW Diastolic Thickness 1.2 cm 0.6 - 1.0 / 0.6 - 0.9 cm LV Relative Wall Thickness 0.4 RV Internal Dim ED PLAX 3.2 cm LA Systolic Diameter LX 4.0 cm 3.0 - 4.0 / 2.7 - 3.8 cm LA Volume 114.0 cm 18 - 58 / 22 - 52 cm M-MODE Aortic Root Diameter MM 3.2 cm LA Systolic Diameter MM 4.5 cm LA Ao Ratio MM 1.4 MV E Point Septal Separation 1.5 cm AV Cusp Separation MM 1.9 cm DOPPLER MV Area PHT 4.1 cm Mitral E Point Velocity 75.4 cm/s Mitral A Point Velocity 68.5 cm/s Mitral E to A Ratio 1.1 MV Deceleration Time 184.8 ms MV E' Velocity 4.6 cm/s Mitral E to MV E' Ratio 16.4 TR Peak Velocity 250.3 cm/s TR Peak Gradient 25.1 mmHg Right Ventricular Systolic Press 29.2 mmHg FINDINGS Left Ventricle LV is of normal size. There is mild concentric LVH. There is mild global decrease in contractility with estimated ejection fraction of 45%. Right Ventricle Normal right ventricular size and function. Right Atrium Normal right atrial size. Left Atrium Mildly increased left atrial diameter. Severely increased left atrial volume. Mildly increased left atrial area. Mitral Valve Mild mitral regurgitation. Aortic Valve Aortic valve sclerosis. Mild aortic regurgitation. Tricuspid Valve Mild tricuspid regurgitation. No evidence of pulmonary hypertension. Pulmonic Valve Trace pulmonic regurgitation. Pericardium Normal pericardium. Aorta Normal size aortic root. CONCLUSIONS Normal LV size with ejection fraction of 45% with mild global decrease in contractility. There is mitral valve calcification and aortic sclerosis with mild mitral aortic and tricuspid insufficiency. No pericardial effusion Previewed by: Dr. Jennifer Trotter MD (Electronically Signed) Final Date: 07 July 2021 18:11
[2021-07-07] MEDS: ONDANSETRON 4 MG/2 ML VIAL IVP PRN (18:31)
[2021-07-07] MEDS: PRIMIDONE 50 MG TAB PO SCH (19:53)
[2021-07-08] MEDS: HYDROcodone/APAP 5-325MG 1 EACH TAB PO PRN ×4 (05:32→23:10)
[2021-07-08 07:53] LABS: HCT 30.7 % (34.0-46.0); HGB 10.9 gm/dL (11.4-16.0); MCH 35.2 pg (25.0-35.0); MCHC 35.5 g/dL (31.0-37.0); Macrocytosis Slight; Mean Platelet Volume 8.7; Poikilocytosis Slight; RDW 15.1 % (11.5-15.5); WBC 4.2 k/uL (3.8-10.6)
[2021-07-08 07:58] LABS: Platelet Count 51 k/uL (150-450)
[2021-07-08 08:08] LABS: Albumin 2.6 g/dL (3.5-5.0); Calcium 8.3 mg/dL (8.4-10.2); Magnesium 1.5 mg/dL (1.6-2.3); Potassium 4.8 mmol/L (3.5-5.1); Total Bilirubin 1.7 mg/dL (0.2-1.3); Total Protein 5.1 g/dL (6.3-8.2)
[2021-07-08] MEDS: lisinopriL 5 MG TAB PO SCH (08:54)
[2021-07-08] MEDS: ISOSORBIDE MONONITRATE ER 60 MG TAB.ER.24H PO SCH (08:54)
[2021-07-08] MEDS: FERROUS SULFATE 325 MG TAB PO SCH (08:54)
[2021-07-08] MEDS: METOPROLOL TARTRATE 50 MG TAB PO SCH ×2 (08:54→19:54)
[2021-07-08] MEDS: ASPIRIN 81 MG PO SCH (08:55)
[2021-07-08] MEDS: ONDANSETRON 4 MG/2 ML VIAL IVP PRN ×2 (11:38→19:22)
[2021-07-08] MEDS: PRAVASTATIN SODIUM 80 MG TAB PO SCH ×2 (12:06→19:54)
[2021-07-08] MEDS: MAGNESIUM SULFATE-D5W PMX 1 GM in DEXTROSE/WATER 1 100ML.BAG IVPB SCH ×3 (12:27→16:33)
--- NOTE | 2021-07-08 12:34 | P.PN ---
Subjective Progress Note Date: 07/08/21 Hospital course: Patient is a very pleasant 80-year-old female with a past medical history of CAD with previous [place] and stents, hypertension, hyperlipidemia, and chronic thrombocytopenia. She presented to the emergency department with a chief complaint of chest pain. She underwent full evaluation in the emergency department. EKG was completed revealing normal sinus rhythm at 67 bpm with a left bundle branch block unchanged from previous EKG completed 07/30/2020. Initial troponin less than 0.012. D-dimer elevated at 1.95. CTA negative for PE revealing atheromatous aorta. Bilateral lower extremity Dopplers completed secondary to bilateral lower extremity edema, Dopplers negative for DVTs. Chest x-ray completed negative for acute process correlating for chronic interstitial lung disease or interstitial pneumonitis. CBC consistent with patient's chronic thrombocytopenia with platelet count of 47. Patient was admitted under our services with consultation to cardiology. Troponins were trended and elevated from less than 0.012 to 0.039 to 0.119 to 0.103. Patient diagnosed as NSTEMI and started on heparin infusion. Lipid profile was completed unremarkable. Echocardiogram revealing EF of 45% with mild global decrease in contractility along with mitral valve calcification and aortic stenosis with mild mitral aortic and tricuspid insufficiency. Physical exam: Patient seen and fully evaluated at the bedside this morning. Patient resting comfortably with daughter at bedside. She continues to report feeling increased weakness and feeling tired but denies any chest pain, shortness of breath, dizziness, lightheadedness, palpitations, nausea, diaphoresis, or experiencing any numbness/tingling/weakness since arrival to the emergency department. Cardiology evaluated patient this morning, recommending patient to increase ambulation and continued overnight monitoring. Patient to be made nothing by mouth at midnight and cardiology will reevaluate need for possible cardiac cath tomorrow morning. Morning labs reviewed. Platelet count 51, hemoglobin 10.9, and magnesium of 1.5. Orders place for replacement of magnesium. We will continue to monitor. Vital signs reviewed and stable. General: Nontoxic, no distress and appears stated age. Derm: Skin warm and dry, normal coloration for ethnicity. Head: Atraumatic, normocephalic and symmetric. Eyes: EOMs intact, no lid lag, and anicteric sclera Mouth: no lip lesions, mucus membranes moist Cardiovascular: regular rate and rhythm with normal S1S2, no murmur, positive posterior tibial pulses bilaterally, and cap refill < 2 seconds. Bilateral lower extremity edema, left lower extremity 1+ pitting edema and right lower extremity 2-3+ pitting edema (left leg is chronically smaller than right secondary to previous injuries and surgeries per patient's daughter) Lungs: Respirations even, regular, and unlabored on room air. Lungs CTA bilaterally, no rhonchi, no rales, no wheezing, and no accessory muscle usage. Abdominal: soft, nontender to palpation, no guarding, no appreciable organomegaly Ext: ROM intact. No gross muscle atrophy, no edema, no contractures Neuro: Speech clear, face symmetrical and CN II-XII grossly intact with no noted focal neuro deficits Psych: Alert and oriented to person, place, time, and situation. Appropriate and pleasant affect. Assessment and Plan of Care: NSTEMI Chronic systolic heart failure with EF of 45% Hypertension Hyperlipidemia History of CAD with stents -Cardiology following, recommending cardiac cath once cleared by hematology secondary to severe thrombocytopenia -ProBNP 1330 -Telemetry monitoring -Cardiac diet, NPO at midnight -Continue cardiac medication regimen consisting of Aspirin, pravastatin, Imdur, lisinopril and metoprolol -Lipid profile unremarkable. -Echocardiogram revealing EF of 45% with mild global decrease in contractility along with mitral valve calcification and aortic stenosis with mild mitral aortic and tricuspid insufficiency. Hypomagnesemia -Replaced, we will continue to monitor with repeat a.m. labs. Elevated d-dimer, CTA negative for PE Chronic thrombocytopenia -Hematology following Resting tremors -Continue daily medication regimen with primidone 50 mg nightly. CODE STATUS: Full code DVT prophylaxis: Heparin infusion Discussed with: Patient, patient's daughter, and RN Anticipated discharge date: Clinical course to determine Anticipated discharge place: Home A total of 35 minutes was spent on the care of this complex patient more than 50% of the time was spent in counseling and care coordination. I reviewed the documentation as provided by the STEFANIA above, who is the original author of this note. I agree with the documented assessment and plan, with the following changes: None Objective - Vital Signs Vital signs: Vital Signs Temp 98.1 F 07/08/21 03:52 Pulse 62 07/08/21 03:52 Resp 16 07/08/21 03:52 BP 168/65 07/08/21 03:52 Pulse Ox 95 07/08/21 03:52 Intake & Output 07/07/21 07/08/21 07/08/21 18:59 06:59 18:59 Intake Total 240 240 Balance 240 240 Intake: Oral 240 240 Other: Voiding Method Toilet # Voids 1 - Labs CBC & Chem 7: 07/08/21 07:18 07/08/21 07:18 Labs: Abnormal Lab Results - Last 24 Hours (Table) 07/07/21 07/07/21 07/07/21 Range/Units 08:10 08:10 08:10 RBC (3.80-5.40) m/uL Hgb (11.4-16.0) gm/dL Hct (34.0-46.0) % MCH (25.0-35.0) pg Plt Count (150-450) k/uL APTT 185.7 H* (22.0-30.0) sec Chloride 114 H (98-107) mmol/L Carbon Dioxide 20 L (22-30) mmol/L BUN (7-17) mg/dL Calcium 8.3 L (8.4-10.2) mg/dL Magnesium (1.6-2.3) mg/dL Total Bilirubin 1.5 H (0.2-1.3) mg/dL Troponin I 0.103 H* (0.000-0.034) ng/mL Total Protein 5.6 L (6.3-8.2) g/dL Albumin 2.8 L (3.5-5.0) g/dL HDL Cholesterol 67.20 H (40.00-60.00) mg/dL 07/08/21 07/08/21 Range/Units 07:18 07:18 RBC 3.10 L (3.80-5.40) m/uL Hgb 10.9 L (11.4-16.0) gm/dL Hct 30.7 L (34.0-46.0) % MCH 35.2 H (25.0-35.0) pg Plt Count 51 L (150-450) k/uL APTT (22.0-30.0) sec Chloride 114 H (98-107) mmol/L Carbon Dioxide 20 L (22-30) mmol/L BUN 20 H (7-17) mg/dL Calcium 8.3 L (8.4-10.2) mg/dL Magnesium 1.5 L (1.6-2.3) mg/dL Total Bilirubin 1.7 H (0.2-1.3) mg/dL Troponin I (0.000-0.034) ng/mL Total Protein 5.1 L (6.3-8.2) g/dL Albumin 2.6 L (3.5-5.0) g/dL HDL Cholesterol (40.00-60.00) mg/dL
--- NOTE | 2021-07-08 13:54 | P.PN ---
Subjective Progress Note Date: 07/08/21 HISTORY OF PRESENT ILLNESS: History of present illness: 80-year-old lady with history of hypertension involuntary movement disorder dyslipidemia coronary artery disease status post prior angioplasty comes to Hospital complaining of an episode of chest discomfort. She describes it as a precordial chest pressure mild to moderate intensity at rest with radiation to l eft arm. She came to hospital and after being treated with IV heparin and nitrates became chest pain-free. Her troponins are mildly elevated. In EKG shows sinus rhythm with left bundle branch block. She sees my associate Dr. Cherry in the office. Hasn't had a recent cardiac catheterization. Given the known coronary artery disease and clinical presentation consistent with non-ST segment elevation CA I advised the patient to undergo cardiac catheterization for further evaluation. Patient was explained of risk benefits and alternatives understood and accepted. Unfortunately patient already had her breakfast this morning. We will schedule this tomorrow. 07/08/2021 Patient examined this morning by Dr. Sheppard. Patient has no complaints of chest pain or pressure. Denies SOB. Vitals are stable. platelet count is 51. PHYSICAL EXAM: VITAL SIGNS: Reviewed. GENERAL: Well-developed in no acute distress. NECK: Supple. No JVD or thyromegaly LUNGS: Respirations even and unlabored. Lungs essentially clear to auscultation bilaterally. HEART: Regular rate and rhythm. S1 and S2 heard. EXTREMITIES: Normal range of motion. No clubbing or cyanosis. Peripheral pulse s intact. No lower extremity edema ASSESSMENT: Acute non-ST segment elevation CA Severe thrombocytopenia Known CAD status post prior angioplasty Right leg edema of unclear etiology PLAN: Dr. Sheppard discussed risk and benefit of cardiac cath with patient and family Will continue with medical management at this time If patient has further episodes of chest pain, will consider cardiac cath Further recommendations pending patient course Nurse practitioner note has been reviewed by physician. Signing provider agrees with the documented findings, assessment, and plan of care. Objective - Vital Signs Vital signs: Vital Signs Temp 97.8 F 07/08/21 11:53 Pulse 63 07/08/21 11:53 Resp 18 07/08/21 11:53 BP 110/43 07/08/21 11:53 Pulse Ox 93 L 07/08/21 11:53 Intake & Output 07/07/21 07/08/21 07/08/21 18:59 06:59 18:59 Intake Total 240 240 Balance 240 240 Intake: Oral 240 240 Other: Voiding Method Toilet # Voids 1 - Labs CBC & Chem 7: 07/08/21 07:18 07/08/21 07:18 Labs: Abnormal Lab Results - Last 24 Hours (Table) 07/08/21 07/08/21 Range/Units 07:18 07:18 RBC 3.10 L (3.80-5.40) m/uL Hgb 10.9 L (11.4-16.0) gm/dL Hct 30.7 L (34.0-46.0) % MCH 35.2 H (25.0-35.0) pg Plt Count 51 L (150-450) k/uL Chloride 114 H (98-107) mmol/L Carbon Dioxide 20 L (22-30) mmol/L BUN 20 H (7-17) mg/dL Calcium 8.3 L (8.4-10.2) mg/dL Magnesium 1.5 L (1.6-2.3) mg/dL Total Bilirubin 1.7 H (0.2-1.3) mg/dL Total Protein 5.1 L (6.3-8.2) g/dL Albumin 2.6 L (3.5-5.0) g/dL
[2021-07-08] MEDS: PRIMIDONE 50 MG TAB PO SCH (19:53)
[2021-07-09] MEDS: HYDROcodone/APAP 5-325MG 1 EACH TAB PO PRN ×4 (05:34→23:14)
[2021-07-09] MEDS ORDERED: ALPRAZolam 0.5 MG TAB PO PRN (08:46)
[2021-07-09] MEDS ORDERED: ASPIRIN 325 MG TAB PO STA (08:46)
[2021-07-09] MEDS ORDERED: ATORVASTATIN 80 MG TAB PO STA (08:46)
[2021-07-09] MEDS ORDERED: NITROGLYCERIN SL TABS 0.4 MG TAB SUBLINGUAL PRN (08:46)
[2021-07-09] MEDS ORDERED: ALPRAZolam 0.25 MG TAB PO PRN (08:46)
[2021-07-09] MEDS: ASPIRIN 81 MG PO SCH (08:57)
--- NOTE | 2021-07-09 09:57 | P.PN ---
Subjective Progress Note Date: 07/09/21 Hospital course: Patient is a very pleasant 80-year-old female with a past medical history of CAD with previous [place] and stents, hypertension, hyperlipidemia, and chronic thrombocytopenia. She presented to the emergency department with a chief complaint of chest pain. She underwent full evaluation in the emergency department. EKG was completed revealing normal sinus rhythm at 67 bpm with a left bundle branch block unchanged from previous EKG completed 07/30/2020. Initial troponin less than 0.012. D-dimer elevated at 1.95. CTA negative for PE revealing atheromatous aorta. Bilateral lower extremity Dopplers completed secondary to bilateral lower extremity edema, Dopplers negative for DVTs. Chest x-ray completed negative for acute process correlating for chronic interstitial lung disease or interstitial pneumonitis. CBC consistent with patient's chronic thrombocytopenia with platelet count of 47. Patient was admitted under our services with consultation to cardiology. Troponins were trended and elevated from less than 0.012 to 0.039 to 0.119 to 0.103. Patient diagnosed as NSTEMI and started on heparin infusion. Lipid profile was completed unremarkable. Echocardiogram revealing EF of 45% with mild global decrease in contractility along with mitral valve calcification and aortic stenosis with mild mitral aortic and tricuspid insufficiency. Physical exam: Patient seen and fully evaluated at the bedside this morning. Patient resting comfortably with daughter and at bedside. Patient is scheduled to undergo cardiac cath later today. She denies having any chest pain, palpitations, or shortness of breath this morning. She does report continued weakness/fatigue that is unchanged. Morning labs pending. Vital signs reviewed and stable. General: Nontoxic, no distress and appears stated age. Derm: Skin warm and dry, normal coloration for ethnicity. Head: Atraumatic, normocephalic and symmetric. Eyes: EOMs intact, no lid lag, and anicteric sclera Mouth: no lip lesions, mucus membranes moist Cardiovascular: regular rate and rhythm with normal S1S2, no murmur, positive posterior tibial pulses bilaterally, and cap refill < 2 seconds. Bilateral lower extremity edema, left lower extremity 1+ pitting edema and right lower extremity 2-3+ pitting edema (left leg is chronically smaller than right secondary to previous injuries and surgeries per patient's daughter) Lungs: Respirations even, regular, and unlabored on room air. Lungs CTA bilaterally, no rhonchi, no rales, no wheezing, and no accessory muscle usage. Abdominal: soft, nontender to palpation, no guarding, no appreciable organomegaly Ext: ROM intact. No gross muscle atrophy, no edema, no contractures Neuro: Speech clear, face symmetrical and CN II-XII grossly intact with no noted focal neuro deficits Psych: Alert and oriented to person, place, time, and situation. Appropriate and pleasant affect. Assessment and Plan of Care: NSTEMI Chronic systolic heart failure with EF of 45% Hypertension Hyperlipidemia History of CAD with stents -Cardiology following, plans for cardiac cath later today -ProBNP 1330 -Telemetry monitoring -Continue cardiac medication regimen consisting of Aspirin, pravastatin, Imdur, lisinopril and metoprolol -Lipid profile unremarkable. -Echocardiogram revealing EF of 45% with mild global decrease in contractility along with mitral valve calcification and aortic stenosis with mild mitral aortic and tricuspid insufficiency. Hypomagnesemia -Replaced, we will continue to monitor with repeat a.m. labs. Elevated d-dimer, CTA negative for PE Chronic thrombocytopenia -Hematology following Resting tremors -Continue daily medication regimen with primidone 50 mg nightly. CODE STATUS: Full code DVT prophylaxis: Heparin infusion Discussed with: Patient, patient's daughter, patient's and RN Anticipated discharge date: Clinical course to determine Anticipated discharge place: Home A total of 35 minutes was spent on the care of this complex patient more than 50% of the time was spent in counseling and care coordination. Objective - Vital Signs Vital signs: Vital Signs Temp 98.9 F 07/09/21 08:00 Pulse 55 L 07/09/21 08:00 Resp 18 07/09/21 08:00 BP 104/47 07/09/21 08:00 Pulse Ox 99 07/09/21 08:00 Intake & Output 07/08/21 07/09/21 07/09/21 18:59 06:59 18:59 Intake Total 780 240 Output Total 300 Balance 480 240 Intake: Intake, IV Titration 300 Amount Magnesium Sulfate-D5w Pmx 300 1 gm In Dextrose/Water 1 100ml.bag @ 100 mls/hr IVPB Q1H RONI Rx#: [id number] Oral 480 240 Output: Urine 300 Other: Voiding Method Toilet Toilet # Voids 1 - Labs CBC & Chem 7: 07/08/21 07:18 07/08/21 07:18
[2021-07-09 10:22] LABS: Basophils % (A) 1 %; Eosinophils # (A) 0.1 k/uL (0-0.7); Eosinophils % (A) 2 %; HCT 31.4 % (34.0-46.0); HGB 10.7 gm/dL (11.4-16.0); Lymphocytes # (A) 0.5 k/uL (1.0-4.8); Lymphocytes % (A) 12 %; MCH 33.7 pg (25.0-35.0); MCHC 34.1 g/dL (31.0-37.0); MCV 98.7 fL (80.0-100.0); Macrocytosis Slight; Mean Platelet Volume 9.4; Monocytes # (A) 0.3 k/uL (0-1.0); Monocytes % (A) 7 %; Neutrophils # (A) 3.3 k/uL (1.3-7.7); Neutrophils % (A) 75 %; Poikilocytosis Slight; RBC 3.19 m/uL (3.80-5.40); RDW 15.2 % (11.5-15.5); WBC 4.4 k/uL (3.8-10.6)
[2021-07-09 10:31] LABS: Calcium 8.2 mg/dL (8.4-10.2); Magnesium 2.1 mg/dL (1.6-2.3)
[2021-07-09 10:34] LABS: Platelet Count 52 k/uL (150-450)
[2021-07-09] MEDS ORDERED: VERAPAMIL 2.5 MG/ML 2 ML AMP ONE (11:14)
[2021-07-09] MEDS ORDERED: HEPARIN SODIUM 1,000 UN/ML (10ML VL) ONE (11:35)
[2021-07-09] MEDS ORDERED: IV FLUID CONTINUATION 1,000 ML IV ONE (11:37)
[2021-07-09] MEDS ORDERED: MIDAZOLAM 2 MG/2 ML VIAL IVP ONE (11:52)
[2021-07-09] MEDS ORDERED: LIDOCAINE 1% INJ 10MG/ML (5 ML VIAL-PF) SQ ONE (11:53)
[2021-07-09] MEDS ORDERED: VERAPAMIL SYRINGE (5 MG/10 ML) INTRAARTER ONE (11:55)
[2021-07-09] MEDS ORDERED: IOPAMIDOL-370 125ML BTL INJ ONE (12:13)
[2021-07-09] MEDS ORDERED: RX INFO: IV CONTRAST WAS GIVEN 1 EACH MISC MISCELLANE PRN (12:15)
[2021-07-09] MEDS ORDERED: SODIUM CHLORIDE 0.9% 1,000 ML IV SCH (12:15)
--- NOTE | 2021-07-09 12:20 | P.PCN ---
Date of Procedure: 07/09/21 Operative Findings: CARDIAC CATHETERIZATION PERFORMING PHYSICIAN: Helder Ibrahim MD, RPVI PROCEDURE PERFORMED: 1. Selective right and left coronary angiogram 2. Left heart catheterization INDICATION: Acute non-ST deviation myocardial infarction in this 80-year-old female patient with chest discomfort and ruled in for acute coronary syndrome which is known to have coronary artery disease and prior stenting of the RCA COMPLICATION: None APPROACH: Right radial artery LEVEL OF SEDATION: Moderate with a sedation length of 20 minutes PROCEDURE DESCRIPTION: After obtaining an informed consent, the patient was brought to cardiac mine laborer. Local anesthesia was performed using lidocaine subcutaneously. The right radial artery was cannulated using Seldinger technique, the guidewire passed easily, following that we advanced a 5-Luxembourger sheath dilator assembly, the wire and dilator were removed and sheath was flushed. Following that, 2 mg of verapamil given. The patient was not given heparin in the light of thrombocytopeniaSelective right and left coronary angiogram using a 6-Luxembourger JR4 and JL 3.5 catheters. Following that we did left heart catheterization using 6-Luxembourger pigtail catheter. The procedure was completed there was no complication. SELECTIVE CORONARY ANGIOGRAM: The right coronary artery: Is a large caliber vessel and a dominant vessel. The RCA is a stented in the midportion. There is moderate in-stent restenosis Left main: Is angiographically normal. Bifurcates into a 6 and LAD The left circumflex: Is a large caliber vessel nondominant vessel. The LCx proximity gives rises into large OM branch which has mild disease only. The circumflex in the AV groove become a small to medium caliber vessel and seems to be occluded. The left anterior descending artery: Is a large caliber vessel. The LAD proximally has mild disease only. The mid LAD is calcified with intermediate lesion appeared to be in the range of 50% by the bifurcation of the medium-sized diagonal branch. The LAD distally appears to be angiographically normal HEMODYNAMICS: The LVEDP was 20 mmHg with 5 mm gradient across aortic valve CONCLUSION: 1. Occluded left circumflex in the midportion which seems to be chronic occlusion and fills from the right coronary artery 2. Intermediate lesion involving the mid left anterior descending artery 3. Elevated left-sided filling pressure POSTPROCEDURE MANAGEMENT: In the light of absence of any chest pain or chest discomfort and the absence of high grade stenosis at this point I would advise a conservative medical approach. The lesion in the LAD need to be addressed down the line and that can be done through myocardial perfusion imaging stress test.
[2021-07-09] MEDS: FERROUS SULFATE 325 MG TAB PO SCH (12:40)
[2021-07-09] MEDS: lisinopriL 5 MG TAB PO SCH (12:40)
[2021-07-09] MEDS: ISOSORBIDE MONONITRATE ER 60 MG TAB.ER.24H PO SCH (14:28)
[2021-07-09] MEDS: METOPROLOL TARTRATE 50 MG TAB PO SCH ×2 (14:28→20:11)
[2021-07-09] MEDS ORDERED: ACETAMINOPHEN TAB 325 MG TAB PO PRN (15:26)
[2021-07-09] MEDS: PRAVASTATIN SODIUM 80 MG TAB PO SCH (20:11)
[2021-07-09] MEDS: PRIMIDONE 50 MG TAB PO SCH (20:11)
[2021-07-10] MEDS ORDERED: HEPARIN SODIUM,PORCINE 10,000 UNIT in SODIUM CHLORIDE 0.9% 1,000 ML IRRIGATION PRN (07:00)
[2021-07-10] MEDS ORDERED: HEPARIN SODIUM,PORCINE 2,500 UNIT in SODIUM CHLORIDE 0.9% 250 ML IRRIGATION PRN (07:00)
[2021-07-10] MEDS: ISOSORBIDE MONONITRATE ER 60 MG TAB.ER.24H PO SCH (09:20)
[2021-07-10] MEDS: FERROUS SULFATE 325 MG TAB PO SCH (09:20)
[2021-07-10] MEDS: METOPROLOL TARTRATE 50 MG TAB PO SCH (09:20)
[2021-07-10] MEDS: ASPIRIN 81 MG PO SCH (09:20)
[2021-07-10] MEDS: lisinopriL 5 MG TAB PO SCH (09:20)
[2021-07-10] MEDS: HYDROcodone/APAP 5-325MG 1 EACH TAB PO PRN (09:25)
--- NOTE | 2021-07-10 11:34 | P.DS ---
Providers Date of admission: 07/07/21 10:09 Expected date of discharge: 07/10/21 Attending physician: Felix Henao MD Consults: 07/06/21 16:45 Consult Physician Urgent Consulting Provider: Helder Ibrahim Consult Reason/Comments: chest pain Do you want consulting provider notified?: Yes 07/07/21 09:02 Consult Physician Routine Consulting Provider: Cayden Eli Consult Reason/Comments: low platelet count Do you want consulting provider notified?: Yes Primary care physician: Jose Hicks Hospital Course: Discharge Diagnosis: NSTEMI Chronic systolic heart failure with EF of 45% Hypertension Hyperlipidemia History of CAD with stents Hypomagnesemia, resolved Elevated d-dimer, CTA negative for PE Chronic thrombocytopenia Resting tremors Hospital Course: Patient is a very pleasant 80-year-old female with a past medical history of CAD with previous PA and stents, hypertension, hyperlipidemia, and chronic thrombocytopenia. She presented to the emergency department with a chief complaint of chest pain. She underwent full evaluation in the emergency department. EKG was completed revealing normal sinus rhythm at 67 bpm with a left bundle branch block unchanged from previous EKG completed 07/30/2020. Initial troponin less than 0.012. D-dimer elevated at 1.95. CTA negative for PE revealing atheromatous aorta. Bilateral lower extremity Dopplers completed secondary to bilateral lower extremity edema, Dopplers negative for DVTs. Chest x-ray completed negative for acute process correlating for chronic interstitial lung disease or interstitial pneumonitis. CBC consistent with patient's chronic thrombocytopenia with platelet count of 47. Patient was admitted under our services with consultation to cardiology. Troponins were trended and elevated from less than 0.012 to 0.039 to 0.119 to 0.103. Patient diagnosed as NSTEMI and started on heparin infusion. Lipid profile was completed unremarkable. Echocardiogram revealing EF of 45% with mild global decrease in contractility along with mitral valve calcification and aortic stenosis with mild mitral aort ic and tricuspid insufficiency. Patient underwent cardiac cath with right radial access, this revealed an occluded left circumflex in the midportion which seems to be chronic occlusion and fills from the right coronary artery, intermediate lesion involving the mid left anterior depending artery, and elevated left-sided filling pressures. Cardiology recommending in the absence of any chest pain/discomfort in the absence of high grade stenosis, they aren't recommending a conservative medical approach with plans to address the lesion in the LAD on outpatient basis and recommending to be done through Myocardial perfusion imaging stress test. Patient was monitored overnight status post cardiac cath secondary to chronic thrombocytopenia. Patient had no bleeding or hematoma noted from right radial access site. Patient did have some bruising to right wrist and forearm, but again no hematoma or active bleeding. She remains free from any chest pain, palpitations, or shortness of breath. Patient cleared from cardiac standpoint for discharge at this time. Patient is medically stable for discharge, there have been no medication changes made to her daily medication regimen at this time. Patient to follow-up outpatient as recommended with PCP and cardiology. Physical exam: Vital signs reviewed and stable. General: Nontoxic, no distress and appears stated age. Derm: Skin warm and dry, normal coloration for ethnicity. Head: Atraumatic, normocephalic and symmetric. Eyes: EOMs intact, no lid lag, and anicteric sclera Mouth: no lip lesions, mucus membranes moist Cardiovascular: regular rate and rhythm with normal S1S2, no murmur, positive posterior tibial pulses bilaterally, and cap refill < 2 seconds. Bilateral lower extremity edema, left lower extremity 1+ pitting edema and right lower extremity 1-2+ pitting edema (left leg is chronically smaller than right secondary to previous injuries and surgeries per patient's daughter) Lungs: Respirations even, regular, and unlabored on room air. Lungs CTA bilaterally, no rhonchi, no rales, no wheezing, and no accessory muscle usage. Abdominal: soft, nontender to palpation, no guarding, no appreciable organomegaly Ext: ROM intact. No gross muscle atrophy, no edema, no contractures Neuro: Speech clear, face symmetrical and CN II-XII grossly intact with no noted focal neuro deficits Psych: Alert and oriented to person, place, time, and situation. Appropriate and pleasant affect. A total of 38 minutes of time were spent preparing this complex discharge summary. Pt was discharged on 07/10/21 at 11:33 AM. Patient Condition at Discharge: Stable Plan - Discharge Summary Discharge Rx Participant: Yes New Discharge Prescriptions: Continue Metoprolol Tartrate [Lopressor] 50 mg PO BID Isosorbide Mononitrate ER [Imdur] 60 mg PO DAILY Aspirin EC [Ecotrin Low Dose] 81 mg PO DAILY lisinopriL [Zestril] 15 mg PO DAILY Ferrous Sulfate [Iron (65 MG Elemental)] 325 mg PO DAILY Pravastatin Sodium 80 mg PO DAILY Furosemide [Lasix] 40 mg PO DAILY PRN PRN Reason: swelling Primidone [Mysoline] 50 mg PO HS Docusate [Colace] 100 mg PO BID PRN #10 cap PRN Reason: Constipation Omeprazole Magnesium [PriLOSEC] 20 mg PO DAILY PRN PRN Reason: acid reflux Discharge Medication List Metoprolol Tartrate [Lopressor] 50 mg PO BID 03/09/15 [History] Isosorbide Mononitrate ER [Imdur] 60 mg PO DAILY 10/30/15 [History] Aspirin EC [Ecotrin Low Dose] 81 mg PO DAILY 09/12/18 [History] lisinopriL [Zestril] 15 mg PO DAILY 01/20/19 [History] Ferrous Sulfate [Iron (65 MG Elemental)] 325 mg PO DAILY 07/30/20 [History] Pravastatin Sodium 80 mg PO DAILY 07/30/20 [History] Primidone [Mysoline] 50 mg PO HS 07/30/20 [History] Docusate [Colace] 100 mg PO BID PRN #10 cap 08/01/20 [Rx] Furosemide [Lasix] 40 mg PO DAILY PRN 07/06/21 [History] Omeprazole Magnesium [PriLOSEC] 20 mg PO DAILY PRN 07/06/21 [History] Follow up Appointment(s)/Referral(s): Helder Ibrahim MD [STAFF PHYSICIAN] - 1 Week (July 16 4:30) Jose Hicks [Primary Care Provider] - 1-2 days Patient Instructions/Handouts: *Surgery [facility] - After Heart Catheterization - Insecticide Sprayer Instructions, Chest Pain (DC) Activity/Diet/Wound Care/Special Instructions: Activity: As tolerated. Take breaks as needed. Diet: Heart healthy and carb consistent diet. Avoid salts, or foods with hidden salts such as canned or boxed foods and frozen dinners. Extra salt makes your heart work harder and traps the fluid in your body for longer. Special Instructions: Take all of your medications as directed and remember to keep all of your doctor's appointments and follow-up as needed. Thank you for allowing us to participate in your care, it was truly a pleasure having you for our patient!!! Discharge Disposition: HOME SELF-CARE
[2021-07-10 11:53] VITALS: BP 131/59; PULSE 61; RESP 18; TEMP 98.5
--- NOTE | 2021-07-10 12:13 | PN ---
PROGRESS NOTE FOLLOW-UP NOTE: Gemma is a 80-year-old lady who is admitted to hospital with [id number] DE and underwent cardiac catheterization by Dr. Ibrahim yesterday. She has 3-vessel coronary artery disease that we opted to manage medically at this time. She had an occluded circumflex coronary artery in its mid portion which seems chronic. There is an intermediate lesion in the mid LAD that we believe is optimally managed medically. Right coronary artery was previously stented in the mid portion and was patent. This morning she is doing well and is free of symptoms. Right radial artery access site appears normal. On exam, comfortable at rest. Vital signs are stable. Chest exam reveals good air entry bilaterally. Heart exam reveals first and second heart sounds. Systolic murmur at the left lower sternal border. Abdomen is soft. Examination of extremities did not reveal any edema. Peripheral pulses are felt. Labs show a hemoglobin of 10.7, platelet count is 52, potassium is 5, creatinine is 1. ASSESSMENT: Three-vessel coronary artery disease, on medical therapy. Reviewed angiographic data this morning. She will go home on aspirin, Imdur, Zestril, Lopressor and Pravachol. She will be followed up in the office by Dr. Ibrahim. MARTY / DEWEY: [id number] /
== END 2021-07-10 13:55 | disposition home or self-care (01) | DRG 280 ==
LOC: EC 10:29 → 6NMEDSUR 16:45 → 3SCARD 21:54 → OBSVTOIN 07-07 10:09 → 3SCARD 07-07 13:12
PROVIDERS: ADMIT Internal Medicine; ATTEND Internal Medicine
PROC: 4A023N7 Measurement of Cardiac Sampling and Pressure, Left Heart, Percutaneous Approach (ICD-10-PCS; principal; 2021-07-09 08:30)
PROC: B2111ZZ Fluoroscopy of Multiple Coronary Arteries using Low Osmolar Contrast (ICD-10-PCS; principal; 2021-07-09 08:30)
DX: I21.4 Non-ST elevation (NSTEMI) myocardial infarction (principal); I50.23 Acute on chronic systolic (congestive) heart failure; D69.3 Immune thrombocytopenic purpura; J84.9 Interstitial pulmonary disease, unspecified; I44.7 Left bundle-branch block, unspecified; I11.0 Hypertensive heart disease with heart failure; K74.60 Unspecified cirrhosis of liver; I25.5 Ischemic cardiomyopathy; I08.3 Combined rheumatic disorders of mitral, aortic and tricuspid valves; E83.42 Hypomagnesemia; E78.5 Hyperlipidemia, unspecified; I25.10 Atherosclerotic heart disease of native coronary artery without angina pectoris; E53.8 Deficiency of other specified B group vitamins; R25.1 Tremor, unspecified; I25.2 Old myocardial infarction; K21.9 Gastro-esophageal reflux disease without esophagitis; M19.90 Unspecified osteoarthritis, unspecified site; Z79.82 Long term (current) use of aspirin; Z79.899 Other long term (current) drug therapy; Z95.5 Presence of coronary angioplasty implant and graft; Z90.49 Acquired absence of other specified parts of digestive tract; Z87.19 Personal history of other diseases of the digestive system; Z90.710 Acquired absence of both cervix and uterus; Z87.42 Personal history of other diseases of the female genital tract; Z96.60 Presence of unspecified orthopedic joint implant; Z87.891 Personal history of nicotine dependence; Z87.81 Personal history of (healed) traumatic fracture; Z98.890 Other specified postprocedural states; Z88.1 Allergy status to other antibiotic agents; Z88.5 Allergy status to narcotic agent; Z88.0 Allergy status to penicillin; Z88.8 Allergy status to other drugs, medicaments and biological substances; Z80.3 Family history of malignant neoplasm of breast; Z82.49 Family history of ischemic heart disease and other diseases of the circulatory system
CPT/HCPCS: 36415; 71046; 71275; 80048; 80053; 80061; 81003; 83721; 83735; 83880; 84484; 85025; 85027; 85379; 85610; 85730; 93005; 93306; 93458; 93970; 96365; 96366; 96375; 99285

== ENCOUNTER 2021-07-17 11:13 | Emergency (ER) | payer MEDICARE ==
[2021-07-17 11:24] VITALS: RESP 22
[2021-07-17] MEDS ORDERED: HYDROmorphone 0.5 MG/0.5 ML SYRINGE IM STA ×2 (11:49→15:13)
[2021-07-17] MEDS ORDERED: diphenhydrAMINE 25 MG CAP PO STA ×2 (11:50→15:14)
--- NOTE | 2021-07-17 13:05 | ED ---
Extremity Problem HPI - General Chief complaint: Extremity Problem,Nontraumatic Stated complaint: Arm infection Time Seen by Provider: 07/17/21 11:37 Source: patient, family, RN notes reviewed Mode of arrival: ambulatory Limitations: no limitations - History of Present Illness Initial comments: This is a 80-year-old female who presents the emergency department for an infection of the left arm. Patient was admitted to this hospital from 07/06- 07/10 for an NSTEMI and underwent a cardiac catheterization. States that the IV in her left dorsal forearm became infected, however she was not discharged from the hospital on antibiotics. The infection continued to progress, and she went to urgent care 2 days ago. At urgent care they expressed a significant amount of purulent fluid and started her on doxycycline. She has been taking the doxycycline for 2 days without any improvement. States that she has been unable to move her arm due to this pain and is not letting anyone touch it. MD Complaint: extremity pain, extremity swelling Location: left, upper extremity - Related Data Home Medications Medication Instructions Recorded Confirmed Metoprolol Tartrate [Lopressor] 50 mg PO BID 03/09/15 07/17/21 Isosorbide Mononitrate ER [Imdur] 60 mg PO DAILY 10/30/15 07/17/21 Aspirin EC [Ecotrin Low Dose] 81 mg PO DAILY 09/12/18 07/17/21 lisinopriL [Zestril] 15 mg PO DAILY 01/20/19 07/17/21 Ferrous Sulfate [Iron (65 MG 325 mg PO DAILY 07/30/20 07/17/21 Elemental)] Pravastatin Sodium 80 mg PO DAILY 07/30/20 07/17/21 Primidone [Mysoline] 50 mg PO HS 07/30/20 07/17/21 Furosemide [Lasix] 40 mg PO DAILY PRN 07/06/21 07/17/21 Omeprazole Magnesium [PriLOSEC] 20 mg PO DAILY PRN 07/06/21 07/17/21 Previous Rx's Medication Instructions Recorded Docusate [Colace] 100 mg PO BID PRN #10 cap 08/01/20 Clindamycin [Cleocin] 450 mg PO Q8H 10 Days #90 cap 07/17/21 HYDROcodone/APAP 7.5-325MG [[place] 1 tab PO Q6HR PRN 3 Days #12 tab 07/17/21 7.5325] Silver Sulfadiazine 1 applic TOPICAL BID #50 gm 07/17/21 Allergies Allergy/AdvReac Type Severity Reaction Status Date / Time cephalexin monohydrate Allergy Rash/Hives/ Verified 07/17/21 14:20 [From Keflex] Swelling codeine Allergy Rash/Hives Verified 07/17/21 14:20 doxepin Allergy Rash/Hives Verified 07/17/21 14:20 meperidine HCl [From Demerol] Allergy Rash/Hives Verified 07/17/21 14:20 methylprednisolone Allergy Rash/Hives Verified 07/17/21 14:20 [From Medrol] Opioids - Morphine Analogues Allergy Rash/Hives Verified 07/17/21 14:20 Penicillins Allergy Swelling Verified 07/17/21 14:20 over entire body pentazocine lactate Allergy Rash/Hives-Stomach Verified 07/17/21 14:20 [From Talwin] Upset propoxyphene napsylate Allergy Rash/Hives- Verified 07/17/21 14:20 [From Darvocet-N] Itch tramadol Allergy Rash/Hives Verified 07/17/21 14:20 Review of Systems ROS Statement: Those systems with pertinent positive or pertinent negative responses have been documented in the HPI. ROS Other: All systems not noted in ROS Statement are negative. 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 Kan). 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, left hip repair with rods 09-15-2018 Past Anesthesia/Blood Transfusion Reactions: No Reported Reaction Date of Last Stent Placement:: 1998 Past Psychological History: No Psychological Hx Reported Smoking Status: Never smoker Past Alcohol Use History: None Reported Past Drug Use History: None Reported - Past Family History Mother Family Medical History: Cancer Additional Family Medical History / Comment(s): Breast Ca Father Family Medical History: Myocardial Infarction ([place]) Additional Family Medical History / Comment(s): @ age 86 from [place] General Exam Limitations: no limitations General appearance: alert, in distress Head exam: Present: atraumatic, normocephalic, normal inspection Respiratory exam: Present: normal lung sounds bilaterally. Absent: respiratory distress, wheezes, rales, rhonchi, stridor Cardiovascular Exam: Present: regular rate, normal rhythm, normal heart sounds. Absent: systolic murmur, diastolic murmur, rubs, gallop, clicks Extremities exam: Present: other (Diffuse erythema with a centralized abscess measuring 2x2 cm and active drainage on the dorsal aspect of the left forearm. Increased heat and significant tenderness to palpation.) Neurological exam: Present: alert, oriented X3, CN II-XII intact Psychiatric exam: Present: normal affect, normal mood Skin exam: Present: warm, dry, intact, normal color. Absent: rash Course Vital Signs 07/17/21 07/17/21 11:22 16:10 Temperature 98.2 F 98.4 F Pulse Rate 65 68 Respiratory 22 22 Rate O2 Sat by Pulse 99 99 Oximetry Medical Decision Making - Medical Decision Making This is a 80-year-old female who presents the emergency department for a left arm infection. Duplex ultrasound did not identify any vascular involvement. Advised the patient that she should be admitted for IV antibiotics. Patient and her refuse, stating that they do not want another IV placed. Patient's was pressuring her significantly to go home despite the patient considering her options. Patient advised that if she wishes to go home, she will need to leave AMA. Patient expresses understanding and signed AMA forms. Prescription for clindamycin and sent to the patient's pharmacy along with silver sulfadiazine ointment and Springview for pain. I again reiterated with the patient the importance of returning to the emergency department should symptoms worsen at all, she is at risk for serious infection potentially lead to limb loss and . This case was discussed in detail with the attending ED physician. Presentation, findings, and treatment plan discussed in detail as well. - Radiology Data Radiology results: report reviewed, image reviewed Disposition Clinical Impression: Cellulitis of left upper extremity Disposition: Left Against Medical Advice Instructions (If sedation given, give patient instructions): Cellulitis (ED) Additional Instructions: If you develop fevers or the wound worsens, return to the emergency department immediately. Take the Clindamycin three times daily for 10 days. Apply the silver sulfadiazine ointment before dressing changes. Prescriptions: Clindamycin [Cleocin] 450 mg PO Q8H 10 Days #90 cap HYDROcodone/APAP 7.5-325MG [[place] 7.5-325] 1 tab PO Q6HR PRN 3 Days #12 tab PRN Reason: Pain Silver Sulfadiazine 1 applic TOPICAL BID #50 gm Is patient prescribed a controlled substance at d/c from ED?: Yes When asked, does pt state using other controlled substances?: No If prescribed controlled substance>3 days was MAPS reviewed?: Prescribed <3 Days Referrals: Jose Hicks [Primary Care Provider] - 1-2 days
--- NOTE | 2021-07-17 14:50 | US ---
EXAMINATION TYPE: US venous doppler duplex UE LT DATE OF EXAM: 07/17/2021 COMPARISON: NONE CLINICAL HISTORY: Infection, concern for vascular involvement. IV left anterior lower arm near wrist removed 1 week ago. redness and infection within this area SIDE PERFORMED: left Visualized portions of the left internal jugular vein, left subclavian vein, axillary vein, brachial vein, cephalic vein, basilic vein, ulnar and radial veins show no abnormal luminal echoes, there are normal vascular waveforms, normal color flow. There is normal compressibility. Left Arm: no evidence of DVT as visualized. technical limitations, difficult for patient to rotate ar m into adequate position to evaluate vessels IMPRESSION: No evident deep venous thrombosis within the left upper extremity as described
[2021-07-17 16:13] VITALS: PULSE 68; TEMP 98.4
== END 2021-07-17 16:10 | disposition left against medical advice (07) ==
LOC: EC 11:13
DX: L03.114 Cellulitis of left upper limb (principal); Z53.29 Procedure and treatment not carried out because of patient's decision for other reasons; I10 Essential (primary) hypertension; E78.5 Hyperlipidemia, unspecified; I25.2 Old myocardial infarction; K21.9 Gastro-esophageal reflux disease without esophagitis; I25.10 Atherosclerotic heart disease of native coronary artery without angina pectoris; M19.90 Unspecified osteoarthritis, unspecified site; Z88.1 Allergy status to other antibiotic agents; Z88.5 Allergy status to narcotic agent; Z88.0 Allergy status to penicillin; Z88.6 Allergy status to analgesic agent; Z79.899 Other long term (current) drug therapy; Z79.82 Long term (current) use of aspirin
CPT/HCPCS: 93971; 99284; 96372; J1170

== ENCOUNTER → 2021-10-12 | Outpatient (CLI) | payer MEDICARE ==
--- NOTE | 2021-10-12 12:25 | US ---
EXAMINATION TYPE: US liver DATE OF EXAM: 10/12/2021 COMPARISON: Correlation CT 07/31/2020 CLINICAL HISTORY: 81-year-old female K74.60 UNSPECIFIED CIRRHOSIS OF LIVER. GB removed. TECHNIQUE: Multiple sonographic images of the right upper quadrant are obtained. FINDINGS: EXAM MEASUREMENTS: Liver Length: 14.4 cm CBD: 0.6 cm Right Kidney: 10.6 x 4.4 x 4.4 cm BOILERMAKER NOTES: Limited due to bowel gas Pancreas: . Small portion of the pancreatic neck is seen. Remainder is obscured by bowel gas shadowi ng. Liver: Limited visualization. Appears coarse. Right lobe hypoechoic lesion seen = 2.8 x 3.0 x 2.3 cm hand shows posterior through transmission. Gallbladder: Surgically absent Evidence for sonographic Collazo's sign: neg CBD: Upper limits of normal, acceptable given postcholecystectomy status. Right Kidney: Cortical thinning suggests chronic medical renal disease. No hydronephrosis. Tiny norma meter cortical lesion at the upper pole, likely a tiny cortical cyst. IMPRESSION: 1. Limited exam due to prominent bowel gas shadowing. 2. Coarsened echotexture of the liver suggesting underlying cirrhosis. There is a 2.0 cm hypoechoic a yasmeen within the right liver lobe. Further MRI evaluation recommended as HCC is not excluded this time. 3. Bile duct measuring 6 mm, acceptable given postcholecystectomy status.
== END | disposition home or self-care (01) ==
LOC: RADUSWWP 08:03
PROVIDERS: ATTEND Internal Medicine Hematology & Oncology
DX: K74.60 Unspecified cirrhosis of liver (principal)
CPT/HCPCS: 76705

== ENCOUNTER 2021-11-11 21:13 | Emergency (ER) | payer MEDICARE ==
[2021-11-11 21:22] VITALS: BP 164/65; PULSE 73; RESP 16; TEMP 98.2
--- NOTE | 2021-11-11 23:08 | US ---
EXAMINATION TYPE: US venous doppler duplex LE LT DATE OF EXAM: 11/11/2021 10:48 PM COMPARISON: NONE CLINICAL HISTORY: leg swelling. leg swelling SIDE PERFORMED: Left TECHNIQUE: The lower extremity deep venous system is examined utilizing real time linear array sonog asher with graded compression, doppler sonography and color-flow sonography. VESSELS IMAGED: Common Femoral Vein Deep Femoral Vein Greater Saphenous Vein * Femoral Vein Popliteal Vein Small Saphenous Vein * Proximal Calf Veins (* superficial vessels) Left Leg: Negative for DVT. Thacker's cyst in left pop fossa measuring 3.6 x 3.5 x 1.4 cm. IMPRESSION: No evidence of deep vein thrombosis in the left leg. There is a popliteal cyst noted.
[2021-11-11] MEDS ORDERED: KETOROLAC 15 MG/ML 1 ML VIAL IM STA (23:35)
--- NOTE | 2021-11-11 23:37 | ED ---
Extremity Problem HPI - General Chief complaint: Extremity Problem,Nontraumatic Stated complaint: Possible DVT Time Seen by Provider: 11/11/21 22:20 Source: patient, RN notes reviewed, old records reviewed Limitations: no limitations - History of Present Illness Initial comments: Well-appearing 81-year-old female presents to emergency room with complaints of 1 week of left leg pain. She did go to urgent care and they recommended she come to the emergency room to rule out DVT. Patient denies any chest pain or shortness of breath. MD Complaint: extremity pain (left leg) -: week(s) Location: left History of Same: No Radiation: none Severity scale (1-10): 10 Consistency: constant Improves with: nothing Worsens with: palpation Associated Symptoms: denies other symptoms - Related Data Home Medications Medication Instructions Recorded Confirmed Metoprolol Tartrate [Lopressor] 50 mg PO BID 03/09/15 07/17/21 Isosorbide Mononitrate ER [Imdur] 60 mg PO DAILY 10/30/15 07/17/21 Aspirin EC [Ecotrin Low Dose] 81 mg PO DAILY 09/12/18 07/17/21 lisinopriL [Zestril] 15 mg PO DAILY 01/20/19 07/17/21 Ferrous Sulfate [Iron (65 MG 325 mg PO DAILY 07/30/20 07/17/21 Elemental)] Pravastatin Sodium 80 mg PO DAILY 07/30/20 07/17/21 Primidone [Mysoline] 50 mg PO HS 07/30/20 07/17/21 Furosemide [Lasix] 40 mg PO DAILY PRN 07/06/21 07/17/21 Omeprazole Magnesium [PriLOSEC] 20 mg PO DAILY PRN 07/06/21 07/17/21 Previous Rx's Medication Instructions Recorded Docusate [Colace] 100 mg PO BID PRN #10 cap 08/01/20 Clindamycin [Cleocin] 450 mg PO Q8H 10 Days #90 cap 07/17/21 HYDROcodone/APAP 7.5-325MG [Carter 1 tab PO Q6HR PRN 3 Days #12 tab 07/17/21 7.5-325] Silver Sulfadiazine 1 applic TOPICAL BID #50 gm 07/17/21 Allergies Allergy/AdvReac Type Severity Reaction Status Date / Time cephalexin monohydrate Allergy Rash/Hives/ Verified 07/21/21 14:16 [From Keflex] Swelling codeine Allergy Rash/Hives Verified 07/21/21 14:16 doxepin Allergy Rash/Hives Verified 07/21/21 14:16 meperidine HCl [From Demerol] Allergy Rash/Hives Verified 07/21/21 14:16 methylprednisolone Allergy Rash/Hives Verified 07/21/21 14:16 [From Medrol] Opioids - Morphine Analogues Allergy Rash/Hives Verified 07/21/21 14:16 Penicillins Allergy Swelling Verified 07/21/21 14:16 over entire body pentazocine lactate Allergy Rash/Hives-Stomach Verified 07/21/21 14:16 [From Talwin] Upset propoxyphene napsylate Allergy Rash/Hives- Verified 07/21/21 14:16 [From Darvocet-N] Itch tramadol Allergy Rash/Hives Verified 07/21/21 14:16 Review of Systems ROS Statement: Those systems with pertinent positive or pertinent negative responses have been documented in the HPI. ROS Other: All systems not noted in ROS Statement are negative. 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 Kan). 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, left hip repair with rods 09-15-2018 Past Anesthesia/Blood Transfusion Reactions: No Reported Reaction Date of Last Stent Placement:: 1998 Past Psychological History: No Psychological Hx Reported Smoking Status: Never smoker Past Alcohol Use History: None Reported Past Drug Use History: None Reported - Past Family History Mother Family Medical History: Cancer Additional Family Medical History / Comment(s): Breast Ca Father Family Medical History: Myocardial Infarction ([place]) Additional Family Medical History / Comment(s): @ age 86 from [place] General Exam Limitations: no limitations General appearance: alert, in no apparent distress Eye exam: Absent: scleral icterus, conjunctival injection, periorbital swelling Neck exam: Present: full ROM. Absent: tenderness, meningismus Respiratory exam: Present: normal lung sounds bilaterally. Absent: respiratory distress, accessory muscle use Cardiovascular Exam: Present: regular rate GI/Abdominal exam: Present: soft Left Knee exam: Present: tenderness (Posterior), swelling, full knee extension. Absent: erythema Lower Leg exam: Present: tenderness. Absent: swelling, ecchymosis, palpable cord, Homans' sign Neurovascular tendon exam: Present: no vascular compromise. Absent: abnormal cap refill, extremity cold to touch, pallor, foot drop Neurological exam: Present: alert, oriented X3 Psychiatric exam: Present: normal affect, normal mood Skin exam: Present: warm, dry, normal color. Absent: cyanosis, diaphoretic, petechiae, pallor Course Vital Signs 11/11/21 21:19 Temperature 98.2 F Pulse Rate 73 Respiratory 16 Rate Blood Pressure 164/65 O2 Sat by Pulse 98 Oximetry Medical Decision Making - Medical Decision Making Patient presents with left leg pain and swelling for one week. Leg is pink and warm with good pedal pulses. Full extension. No foot drop. Denies any chest pain or difficulty breathing. 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 This is likely the cause the patient's pain. Patient was given an Serjio wrap and instructed to rest, ice and elevate leg. Follow-up with the primary care doctor this week. She is agreeable to this plan of care. Disposition Clinical Impression: Bakers cyst Disposition: HOME SELF-CARE Condition: Good Instructions (If sedation given, give patient instructions): Thacker Cyst (ED) Additional Instructions: Rest, ice, elevate and wear Serjio wrap for compression. Follow-up with your primary care doctor this week. Return to the emergency room with any new or concerning symptoms including increased pain or discoloration of the leg. Is patient prescribed a controlled substance at d/c from ED?: No Referrals: Jose Hicks [Primary Care Provider] - 1-2 days Time of Disposition: 23:37
== END 2021-11-12 00:05 | disposition home or self-care (01) ==
LOC: EC 21:13
DX: M71.22 Synovial cyst of popliteal space [Baker], left knee (principal); I25.10 Atherosclerotic heart disease of native coronary artery without angina pectoris; K21.9 Gastro-esophageal reflux disease without esophagitis; E78.5 Hyperlipidemia, unspecified; I10 Essential (primary) hypertension; M19.90 Unspecified osteoarthritis, unspecified site; I25.2 Old myocardial infarction; Z88.1 Allergy status to other antibiotic agents; Z88.5 Allergy status to narcotic agent; Z88.8 Allergy status to other drugs, medicaments and biological substances; Z88.0 Allergy status to penicillin; Z91.011 Allergy to milk products; Z79.82 Long term (current) use of aspirin; Z79.899 Other long term (current) drug therapy
CPT/HCPCS: 96372; 99283

== ENCOUNTER 2022-01-31 15:29 | Inpatient (IN) | payer MEDICARE ==
--- NOTE | 2022-01-31 17:21 | ED ---
General Adult HPI - General Chief complaint: Altered Mental Status Stated complaint: altered mental status Time Seen by Provider: 01/31/22 15:53 Source: EMS Mode of arrival: EMS Limitations: altered mental status - History of Present Illness Initial comments: This is an 81-year-old female with a past medical history including hypertension and congestive heart failure presented to the emergency department via EMS for altered mental status. The patient did present emergency department after she left AMA from [facility]. According to the patient's daughter, the patient has been altered since Tuesday and was admitted to [facility] on Tuesday and over the weekend for continued workup for altered mental status. It was reported that the patient was dehydrated and may or may not have had a UTI. It was unclear of why the patient was admitted. On evaluation today, the patient was ANO 2 and this was an acute change from when she admitted to the hospital on Tuesday. The patient also had abdominal pain but could not provide any history herself. The patient's daughter and were in the room and provided the history. The patient was however resting in bed comfortably without any acute distress. - Related Data Home Medications Medication Instructions Recorded Confirmed Metoprolol Tartrate [Lopressor] 50 mg PO BID 03/09/15 01/31/22 Isosorbide Mononitrate ER [Imdur] 60 mg PO DAILY 10/30/15 01/31/22 Aspirin EC [Ecotrin Low Dose] 81 mg PO DAILY 09/12/18 01/31/22 lisinopriL [Zestril] 15 mg PO DAILY 01/20/19 01/31/22 Ferrous Sulfate [Iron (65 MG 325 mg PO DAILY 07/30/20 01/31/22 Elemental)] Pravastatin Sodium 80 mg PO DAILY 07/30/20 01/31/22 Primidone [Mysoline] 50 mg PO HS 07/30/20 01/31/22 Furosemide [Lasix] 40 mg PO DAILY PRN 07/06/21 01/31/22 Allergies Allergy/AdvReac Type Severity Reaction Status Date / Time cephalexin monohydrate Allergy Rash/Hives/ Verified 01/31/22 19:46 [From Keflex] Swelling codeine Allergy Rash/Hives Verified 01/31/22 19:46 doxepin Allergy Rash/Hives Verified 01/31/22 19:46 meperidine HCl [From Demerol] Allergy Rash/Hives Verified 01/31/22 19:46 methylprednisolone Allergy Rash/Hives Verified 01/31/22 19:46 [From Medrol] Opioids - Morphine Analogues Allergy Rash/Hives Verified 01/31/22 19:46 Penicillins Allergy Swelling Verified 01/31/22 19:46 over entire body pentazocine lactate Allergy Rash/Hives-Stomach Verified 01/31/22 19:46 [From Talwin] Upset propoxyphene napsylate Allergy Rash/Hives- Verified 01/31/22 19:46 [From Darvocet-N] Itch tramadol Allergy Rash/Hives Verified 01/31/22 19:46 Review of Systems ROS Statement: Those systems with pertinent positive or pertinent negative responses have been documented in the HPI. ROS Other: All systems not noted in ROS Statement are negative. 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 Kan). 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, left hip repair with rods 09-15-2018 Past Anesthesia/Blood Transfusion Reactions: No Reported Reaction Date of Last Stent Placement:: 1998 Past Psychological History: No Psychological Hx Reported Smoking Status: Never smoker Past Alcohol Use History: None Reported Past Drug Use History: None Reported - Past Family History Mother Family Medical History: Cancer Additional Family Medical History / Comment(s): Breast Ca Father Family Medical History: Myocardial Infarction ([place]) Additional Family Medical History / Comment(s): @ age 86 from [place] General Exam Limitations: altered mental status General appearance: in no apparent distress, lethargic, obese Head exam: Present: atraumatic, normocephalic Eye exam: Present: normal appearance, PERRL Pupils: Present: normal accommodation ENT exam: Present: normal exam, normal oropharynx, mucous membranes moist Neck exam: Present: normal inspection, full ROM Respiratory exam: Present: normal lung sounds bilaterally Cardiovascular Exam: Present: regular rate, normal rhythm, normal heart sounds GI/Abdominal exam: Present: soft, tenderness (Tenderness with palpation in the bilateral upper quadrants including the epigastric region) Rectal exam: Present: deferred Extremities exam: Present: normal inspection, normal capillary refill Back exam: Present: normal inspection, full ROM Neurological exam: Present: altered, CN II-XII intact Psychiatric exam: Present: flat affect Skin exam: Present: warm, dry Course Vital Signs 01/31/22 15:31 Temperature 100.4 F H Pulse Rate 100 Respiratory 16 Rate Blood Pressure 141/60 O2 Sat by Pulse 98 Oximetry EKG Findings - EKG Comments: EKG Findings:: An EKG was obtained and was read by myself. EKG showed a rate of 114, QRS duration of 127, QTC of 418. This EKG showed intrafibrillation with RVR a left bundle branch block. There was an old EKG on 07/07/2021 and had continued left bundle-branch but rate was slower. The patient that any ST s egment elevations or depressions noted on the current EKG. Medical Decision Making - Medical Decision Making The patient was seen and evaluated in the emergency department. On physical exam, the patient was resting in bed comfortably without any acute distress. Vital signs admission did show a mild fever at 100.4F. The rest of the vital signs were within normal limits. Due to the patient's recent and acute altered mental status, a full laboratory workup and imaging was obtained. I was unable to see the records from [facility] so he workup was restarted here. The patient received laboratory workup as well as a CT head and CT abdomen and pelvis with contrast to rule out any intra-abdominal pathology. Chest x-ray was also obtained at this time. CT abdomen and pelvis showed rectal fecal impaction with presacral edema and wall thickening consistent with some focal colitis. This appears new compared to the old exam. CT head was negative and chest x-ray was negative. The patient's blood work did show an elevated white blood cell count consistent with a infection with unknown origin. Urinalysis also pending at this time. Ammonia was elevated as was the lactic acid. The patient likely had sepsis was recognized at 2130. The patient did also have antibiotics and blood cultures ordered. The patient had significant fecal impaction and I did disimpact the patient. The patient did have significant improvement after this and was given lactulose. The patient was given vancomycin for sepsis of unknown origin after blood cultures were obtained. The patient did also receive approximately 30 mL per KG of fluids. The patient isn't remain stable and will require further admission as an inpatient. The patient doesn't have a physician here and will be admitted to the covering physicians. Halima Bello was contacted and did accept the admission. The patient will be admitted to Dr. Kruger and the family was agreeable to this. The patient was admitted in stable condition. - Lab Data Result diagrams: 01/31/22 17:07 01/31/22 17:07 Lab Results 01/31/22 01/31/22 01/31/22 Range/Units 17:07 17:07 17:07 WBC 13.5 H (3.8-10.6) k/uL RBC 3.53 L (3.80-5.40) m/uL Hgb 11.6 (11.4-16.0) gm/dL Hct 32.5 L (34.0-46.0) % MCV 92.1 (80.0-100.0) fL MCH 32.9 (25.0-35.0) pg MCHC 35.7 (31.0-37.0) g/dL RDW 16.1 H (11.5-15.5) % Plt Count 50 L (150-450) k/uL MPV 10.8 Neutrophils % 88 % Lymphocytes % 3 % Monocytes % 6 % Eosinophils % 1 % Basophils % 0 % Neutrophils # 11.9 H (1.3-7.7) k/uL Lymphocytes # 0.4 L (1.0-4.8) k/uL Monocytes # 0.8 (0-1.0) k/uL Eosinophils # 0.1 (0-0.7) k/uL Basophils # 0.0 (0-0.2) k/uL Manual Slide Review Performed Hyperchromasia Slight Poikilocytosis Moderate Anisocytosis Slight PT 13.0 H (9.0-12.0) sec INR 1.2 H (<1.2) APTT 22.0 (22.0-30.0) sec Sodium 137 (137-145) mmol/L Potassium 4.1 (3.5-5.1) mmol/L Chloride 118 H (98-107) mmol/L Carbon Dioxide 16 L (22-30) mmol/L Anion Gap 3 mmol/L BUN 28 H (7-17) mg/dL Creatinine 0.84 (0.52-1.04) mg/dL Est GFR (CKD-EPI)AfAm 76 (>60 ml/min/1.73 sqM) Est GFR (CKD-EPI)NonAf 66 (>60 ml/min/1.73 sqM) Glucose 131 H (74-99) mg/dL Lactic Ac Sepsis Rflx Plasma Lactic Acid Vincent (0.7-2.0) mmol/L Calcium 7.8 L (8.4-10.2) mg/dL Magnesium 2.2 (1.6-2.3) mg/dL Total Bilirubin 2.4 H (0.2-1.3) mg/dL AST 28 (14-36) U/L ALT 18 (4-34) U/L Alkaline Phosphatase 99 (38-126) U/L Ammonia (<30) umol/L Creatine Kinase 80 (30-135) U/L Troponin I (0.000-0.034) ng/mL Total Protein 4.6 L (6.3-8.2) g/dL Albumin 2.3 L (3.5-5.0) g/dL 01/31/22 01/31/22 01/31/22 Range/Units 17:07 17:07 17:29 WBC (3.8-10.6) k/uL RBC (3.80-5.40) m/uL Hgb (11.4-16.0) gm/dL Hct (34.0-46.0) % MCV (80.0-100.0) fL MCH (25.0-35.0) pg MCHC (31.0-37.0) g/dL RDW (11.5-15.5) % Plt Count (150-450) k/uL MPV Neutrophils % % Lymphocytes % % Monocytes % % Eosinophils % % Basophils % % Neutrophils # (1.3-7.7) k/uL Lymphocytes # (1.0-4.8) k/uL Monocytes # (0-1.0) k/uL Eosinophils # (0-0.7) k/uL Basophils # (0-0.2) k/uL Manual Slide Review Hyperchromasia Poikilocytosis Anisocytosis PT (9.0-12.0) sec INR (<1.2) APTT (22.0-30.0) sec Sodium (137-145) mmol/L Potassium (3.5-5.1) mmol/L Chloride (98-107) mmol/L Carbon Dioxide (22-30) mmol/L Anion Gap mmol/L BUN (7-17) mg/dL Creatinine (0.52-1.04) mg/dL Est GFR (CKD-EPI)AfAm (>60 ml/min/1.73 sqM) Est GFR (CKD-EPI)NonAf (>60 ml/min/1.73 sqM) Glucose (74-99) mg/dL Lactic Ac Sepsis Rflx Y Plasma Lactic Acid Vincent 2.4 H* (0.7-2.0) mmol/L Calcium (8.4-10.2) mg/dL Magnesium (1.6-2.3) mg/dL Total Bilirubin (0.2-1.3) mg/dL AST (14-36) U/L ALT (4-34) U/L Alkaline Phosphatase (38-126) U/L Ammonia 93 H (<30) umol/L Creatine Kinase (30-135) U/L Troponin I 0.066 H* (0.000-0.034) ng/mL Total Protein (6.3-8.2) g/dL Albumin (3.5-5.0) g/dL 01/31/22 Range/Units 19:50 WBC (3.8-10.6) k/uL RBC (3.80-5.40) m/uL Hgb (11.4-16.0) gm/dL Hct (34.0-46.0) % MCV (80.0-100.0) fL MCH (25.0-35.0) pg MCHC (31.0-37.0) g/dL RDW (11.5-15.5) % Plt Count (150-450) k/uL MPV Neutrophils % % Lymphocytes % % Monocytes % % Eosinophils % % Basophils % % Neutrophils # (1.3-7.7) k/uL Lymphocytes # (1.0-4.8) k/uL Monocytes # (0-1.0) k/uL Eosinophils # (0-0.7) k/uL Basophils # (0-0.2) k/uL Manual Slide Review Hyperchromasia Poikilocytosis Anisocytosis PT (9.0-12.0) sec INR (<1.2) APTT (22.0-30.0) sec Sodium (137-145) mmol/L Potassium (3.5-5.1) mmol/L Chloride (98-107) mmol/L Carbon Dioxide (22-30) mmol/L Anion Gap mmol/L BUN (7-17) mg/dL Creatinine (0.52-1.04) mg/dL Est GFR (CKD-EPI)AfAm (>60 ml/min/1.73 sqM) Est GFR (CKD-EPI)NonAf (>60 ml/min/1.73 sqM) Glucose (74-99) mg/dL Lactic Ac Sepsis Rflx Plasma Lactic Acid Vincent 1.8 (0.7-2.0) mmol/L Calcium (8.4-10.2) mg/dL Magnesium (1.6-2.3) mg/dL Total Bilirubin (0.2-1.3) mg/dL AST (14-36) U/L ALT (4-34) U/L Alkaline Phosphatase (38-126) U/L Ammonia (<30) umol/L Creatine Kinase (30-135) U/L Troponin I (0.000-0.034) ng/mL Total Protein (6.3-8.2) g/dL Albumin (3.5-5.0) g/dL Critical Care Time Critical Care Time: Yes Total Critical Care Time: 42 Disposition Clinical Impression: AMS (altered mental status), Sepsis, Fecal impaction in rectum, Hyperammonemia, Thrombocytopenia Disposition: ADMITTED IP TO THIS [facility] Condition: Stable Is patient prescribed a controlled substance at d/c from ED?: No Referrals: Dane Oliva MD [Primary Care Provider] - 1-2 days Time of Disposition: 22:00 Decision Date: 01/31/22 Decision Time: 22:00
[2022-01-31 17:24] LABS: Anisocytosis Slight; Basophils % (A) 0 %; Eosinophils # (A) 0.1 k/uL (0-0.7); Eosinophils % (A) 1 %; HCT 32.5 % (34.0-46.0); HGB 11.6 gm/dL (11.4-16.0); Hyperchromasia Slight; Lymphocytes # (A) 0.4 k/uL (1.0-4.8); Lymphocytes % (A) 3 %; MCH 32.9 pg (25.0-35.0); MCHC 35.7 g/dL (31.0-37.0); MCV 92.1 fL (80.0-100.0); Mean Platelet Volume 10.8; Monocytes # (A) 0.8 k/uL (0-1.0); Monocytes % (A) 6 %; Neutrophils # (A) 11.9 k/uL (1.3-7.7); Neutrophils % (A) 88 %; Poikilocytosis Moderate; RBC 3.53 m/uL (3.80-5.40); RDW 16.1 % (11.5-15.5); WBC 13.5 k/uL (3.8-10.6)
--- NOTE | 2022-01-31 17:26 | XR ---
EXAMINATION TYPE: XR chest 2V DATE OF EXAM: 01/31/2022 COMPARISON: 07/06/2021 HISTORY: Altered mental status TECHNIQUE: 2 views FINDINGS: There is no heart failure nor confluent pneumonic infiltrate. Costophrenic angles are clear . Bony thorax is intact. Thoracic aorta is atheromatous. IMPRESSION: No active cardiopulmonary disease. Normal heart. No adverse change.
[2022-01-31 17:27] LABS: Albumin 2.3 g/dL (3.5-5.0); Calcium 7.8 mg/dL (8.4-10.2); Magnesium 2.2 mg/dL (1.6-2.3); Potassium 4.1 mmol/L (3.5-5.1); Total Bilirubin 2.4 mg/dL (0.2-1.3); Total Protein 4.6 g/dL (6.3-8.2)
[2022-01-31 17:29] LABS: Lactic Acid, Venous 2.4 mmol/L (0.7-2.0)
[2022-01-31 17:31] LABS: INR 1.2 (<1.2)
[2022-01-31 17:49] LABS: Platelet Count 50 k/uL (150-450)
--- NOTE | 2022-01-31 18:00 | CT ---
EXAMINATION TYPE: CT brain wo con DATE OF EXAM: 01/31/2022 COMPARISON: 03/19/2019 HISTORY: ams CT DLP: 1166.4 mGycm Automated exposure control for dose reduction was used. Images obtained of the brain with no contrast. There is mild cerebral cortical atrophy. There is no mass effect or midline shift. No sign of intracr anial hemorrhage. Calvarium is intact. The skull base is intact. Sella turcica is normal. IMPRESSION: Mild atrophy. No acute intracranial abnormality. No change.
--- NOTE | 2022-01-31 18:19 | CT ---
EXAMINATION TYPE: CT abdomen pelvis w con DATE OF EXAM: 01/31/2022 COMPARISON: 07/31/2020 HISTORY: ams, unable to obtain hx CT DLP: 1624.9 mGycm Automated exposure control for dose reduction was used. CONTRAST: Performed with IV Contrast, patient injected with 100 mL of Isovue 300. There is some atelectasis at the lung bases. There is mild pleural thickening right posterior lung ba se. Heart size is top normal. There is coronary artery calcification. Liver is intact. Spleen is larg e and measures 14 cm. No evidence of pancreatic mass. The stomach is intact. The bile duct are not di lated. There is no adrenal mass. Kidneys show satisfactory contrast opacification. No hydronephrosis. Delaye d images show normal renal excretion. There are bilateral renal cortical cysts that measure up to 4 c m. No retroperitoneal adenopathy. Ureters are not dilated. No inguinal hernia. No free fluid in the p alanis. There is presacral edema. There is rectal fecal impaction that measures 7 cm. There is rectal wall thickening. There is air in the urinary bladder that could be from catheterization. No mesenteric edema. No ascites or free air. No sign of bowel obstruction. There is left hip surgery noted. The lumbar vertebrae have fairly normal alignment. There is a degenerative mild first-degree L 4-5 spondylolisthesis. No lumbar compression fracture. Bony pelvis is intact. There is left-sided periumbilical hernia containing fat that measures 5 cm and unchanged. IMPRESSION: Rectal fecal impaction with presacral edema and wall thickening and consistent with some focal coliti s. This appears new compared to old exam
[2022-01-31] MEDS ORDERED: LACTULOSE 200 GM/300 ML (FROM 1/2 GAL JUG) RECTAL ONE (21:54)
[2022-01-31] MEDS ORDERED: SODIUM CHLORIDE 0.9% 1,000 ML IV ONE ×2 (21:55→21:56)
[2022-01-31] MEDS ORDERED: NALOXONE 0.4 MG/ML 1 ML VIAL IV PRN (22:05)
[2022-01-31] MEDS ORDERED: VANCOMYCIN IV PER PHARMACY 1 EACH MISC MISCELLANE PRN (22:07)
[2022-01-31] MEDS ORDERED: VANCOMYCIN 1,250 MG in SODIUM CHLORIDE 0.9% 250 ML IVPB ONE (22:15)
[2022-01-31 23:34] LABS: VBG PH 7.33 (7.31-7.41)
[2022-01-31 23:44] LABS: Appearance,Urine Cloudy (Clear); Bacteria,Urine Occasional /hpf; Bilirubin,Urine Negative (Negative); Blood,Urine Large (Negative); Color,Urine Yellow; Glucose,Urine (UA) Negative (Negative); Ketones,Urine Negative (Negative); Leukocyte Esterase,Urine Large (Negative); Mucus,Urine Rare /hpf; Nitrite,Urine Negative (Negative); Protein,Urine 1+ (Negative); RBC,Urine 62 /hpf (0-5); Squamous Epithelial Cell,Urine 11 /hpf (0-4); WBC,Urine 53 /hpf (0-5)
[2022-01-31 23:46] LABS: Specific Gravity,Urine >1.050 (1.001-1.035)
[2022-02-01] MEDS: SODIUM CHLORIDE 0.9% 1,000 ML IV SCH ×2 (00:04→12:36)
[2022-02-01] MEDS ORDERED: FUROSEMIDE 40 MG TAB PO PRN (12:08)
[2022-02-01] MEDS ORDERED: LEVOFLOXACIN 500MG-D5W PMX 500 MG in DEXTROSE/WATER 1 100ML.BAG IVPB SCH (12:30)
[2022-02-01] MEDS: PANTOPRAZOLE 40 MG/10 ML VIAL IVP SCH (12:36)
[2022-02-01] MEDS: ASPIRIN 81 MG PO SCH (12:37)
[2022-02-01] MEDS: LACTULOSE 20 GM/30 ML CUP PO SCH ×3 (12:37→20:12)
[2022-02-01] MEDS: METOPROLOL TARTRATE 50 MG TAB PO SCH (20:12)
[2022-02-01] MEDS: PRIMIDONE 50 MG TAB PO SCH (20:12)
[2022-02-01] MEDS: metroNIDAZOLE 500 MG TAB PO SCH (20:13)
[2022-02-01] MEDS: AZTREONAM 2 GM in SODIUM CHLORIDE 0.9% 100 ML IVPB SCH (20:13)
[2022-02-01] MEDS ORDERED: VANCOMYCIN 1,250 MG in SODIUM CHLORIDE 0.9% 250 ML IVPB SCH (23:00)
--- NOTE | 2022-02-01 23:32 | P.CONS ---
History of Present Illness - Reason for Consult Consult date: 02/01/22 UTI and colitis Requesting physician: Betsy Kruger - Chief Complaint Mental status changes and weakness x few days - History of Present Illness Patient is a 81-year-old female with a past medical history difficult for hypertension congestive heart failure the patient was brought into the ER yesterday afternoon for evaluation of mental status changes, symptom has been going on since Tuesday patient denies having any headache or URI symptoms denies having any chest pain or shortness of breath or cough no nausea vomiting no abdominal pain patient did have a constipation and also having burning of urine but no suprapubic or flank pain patient on presentation to the hospital did have a fever of 100.4 F patient not hypoxic or need for supplemental oxygen patient did have white count 13.5 with a left shift creatinine has been normal lactic acid was elevated as well as troponin evidence of the normal patient did have a positive UA urine cultures are pending patient did have a CT of abdominal pelvis rectal fecal impaction with presacral edema and wall thickening consistent with some focal colitis patient did have penicillin cephalosporin allergy she was s tarted on Levaquin and vancomycin infectious disease was consulted for further management of antibiotic therapy Review of Systems Positive point has been mentioned in the HPI rest of the systems are negative Past Medical History Past Medical History: Blood Disorder, Coronary Artery Disease (CAD), GERD/Reflux, Hyperlipidemia, Hypertension, Myocardial Infarction ([place]), Osteoarthritis (OA) Additional Past Medical History / Comment(s): 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 Kan). 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, ercp, left hip repair with rods 09-15-2018, left femur surgery with rods Past Anesthesia/Blood Transfusion Reactions: No Reported Reaction Date of Last Stent Placement:: 1998 Past Psychological History: No Psychological Hx Reported Smoking Status: Former smoker Past Alcohol Use History: None Reported Additional Past Alcohol Use History / Comment(s): smokes maybe weekly- 1-2 cigarettes- had smoked and quit for 12 yrs and started up about 5 yrs ago again Past Drug Use History: None Reported - Past Family History Mother Family Medical History: Cancer Additional Family Medical History / Comment(s): Breast Ca Father Family Medical History: Myocardial Infarction ([place]) Additional Family Medical History / Comment(s): @ age 86 from [place] Medications and Allergies Home Medications Medication Instructions Recorded Confirmed Type Metoprolol Tartrate [Lopressor] 50 mg PO BID 03/09/15 01/31/22 History Isosorbide Mononitrate ER [Imdur] 60 mg PO DAILY 10/30/15 01/31/22 History Aspirin EC [Ecotrin Low Dose] 81 mg PO DAILY 09/12/18 01/31/22 History lisinopriL [Zestril] 15 mg PO DAILY 01/20/19 01/31/22 History Ferrous Sulfate [Iron (65 MG 325 mg PO DAILY 07/30/20 01/31/22 History Elemental)] Pravastatin Sodium 80 mg PO DAILY 07/30/20 01/31/22 History Primidone [Mysoline] 50 mg PO HS 07/30/20 01/31/22 History Furosemide [Lasix] 40 mg PO DAILY PRN 07/06/21 01/31/22 History Acetaminophen Tab [Tylenol] 650 mg PO Q8HR PRN tab 02/03/22 Rx Lactulose [Cephulac] 20 gm PO TID 30 Days #2700 ml 02/03/22 Rx Sulfamethox-Tmp 800-160Mg [Bactrim 1 tab PO Q12HR 5 Days #10 tab 02/03/22 Rx DS 800-160 mg] Allergies Allergy/AdvReac Type Severity Reaction Status Date / Time cephalexin monohydrate Allergy Rash/Hives/ Verified 01/31/22 19:46 [From Keflex] Swelling codeine Allergy Rash/Hives Verified 01/31/22 19:46 doxepin Allergy Rash/Hives Verified 01/31/22 19:46 meperidine HCl [From Demerol] Allergy Rash/Hives Verified 01/31/22 19:46 methylprednisolone Allergy Rash/Hives Verified 01/31/22 19:46 [From Medrol] Opioids - Morphine Analogues Allergy Rash/Hives Verified 01/31/22 19:46 Penicillins Allergy Swelling Verified 01/31/22 19:46 over entire body pentazocine lactate Allergy Rash/Hives-Stomach Verified 01/31/22 19:46 [From Talwin] Upset propoxyphene napsylate Allergy Rash/Hives- Verified 01/31/22 19:46 [From Darvocet-N] Itch tramadol Allergy Rash/Hives Verified 01/31/22 19:46 Physical Exam Vitals: Vital Signs Temp Pulse Pulse Resp BP BP BP 02/01/22 08:00 98.0 F 93 18 120/66 02/01/22 04:00 98.8 F 90 19 121/68 02/01/22 02:00 95 20 02/01/22 00:05 20 02/01/22 00:00 98.3 F 95 19 148/78 01/31/22 23:00 84 16 120/68 01/31/22 22:00 90 16 110/54 01/31/22 21:00 98.7 F 97 16 110/58 01/31/22 15:31 100.4 F H 100 16 141/60 Pulse Ox 02/01/22 08:00 100 02/01/22 04:00 97 02/01/22 02:00 02/01/22 00:05 02/01/22 00:00 98 01/31/22 23:00 98 01/31/22 22:00 01/31/22 21:00 100 01/31/22 15:31 98 Intake and Output 01/31/22 02/01/22 02/01/22 22:59 06:59 14:59 Intake Total 865 118 Balance 865 118 Intake: Intake, IV Titration 625 Amount Sodium Chloride 0.9% 1, 375 000 ml @ 75 mls/hr IV . [id number] [facility] Rx#:[id number] Vancomycin 1,250 mg In 250 Sodium Chloride 0.9% 250 ml @ 125 mls/hr IVPB Q24H [facility] Rx#:[id number] Oral 240 118 Other: Voiding Method Diaper # Voids 2 # Bowel Movements 2 Weight 72.575 kg Results CBC & Chem 7: 02/03/22 08:10 02/03/22 08:10 Labs: Abnormal Lab Results - Last 24 Hours (Table) 01/31/22 01/31/22 01/31/22 Range/Units 17:07 17:07 17:07 WBC 13.5 H (3.8-10.6) k/uL RBC 3.53 L (3.80-5.40) m/uL Hct 32.5 L (34.0-46.0) % RDW 16.1 H (11.5-15.5) % Plt Count 50 L (150-450) k/uL Neutrophils # 11.9 H (1.3-7.7) k/uL Lymphocytes # 0.4 L (1.0-4.8) k/uL PT 13.0 H (9.0-12.0) sec INR 1.2 H (<1.2) VBG pCO2 (37-51) mmHg VBG HCO3 (24-28) mmol/L Chloride 118 H (98-107) mmol/L Carbon Dioxide 16 L (22-30) mmol/L BUN 28 H (7-17) mg/dL Glucose 131 H (74-99) mg/dL Plasma Lactic Acid Vincent (0.7-2.0) mmol/L Calcium 7.8 L (8.4-10.2) mg/dL Total Bilirubin 2.4 H (0.2-1.3) mg/dL Ammonia (<30) umol/L Troponin I (0.000-0.034) ng/mL Total Protein 4.6 L (6.3-8.2) g/dL Albumin 2.3 L (3.5-5.0) g/dL Urine Appearance (Clear) Ur Specific [place] (1.001-1.035) Urine Protein (Negative) Urine Blood (Negative) Ur Leukocyte Esterase (Negative) Urine RBC (0-5) /hpf Urine WBC (0-5) /hpf Ur Squamous Epith Cells (0-4) /hpf Urine Bacteria (None) /hpf Urine Mucus (None) /hpf 01/31/22 01/31/22 01/31/22 Range/Units 17:07 17:07 22:58 WBC (3.8-10.6) k/uL RBC (3.80-5.40) m/uL Hct (34.0-46.0) % RDW (11.5-15.5) % Plt Count (150-450) k/uL Neutrophils # (1.3-7.7) k/uL Lymphocytes # (1.0-4.8) k/uL PT (9.0-12.0) sec INR (<1.2) VBG pCO2 31 L (37-51) mmHg VBG HCO3 16 L (24-28) mmol/L Chloride (98-107) mmol/L Carbon Dioxide (22-30) mmol/L BUN (7-17) mg/dL Glucose (74-99) mg/dL Plasma Lactic Acid Vincent 2.4 H* (0.7-2.0) mmol/L Calcium (8.4-10.2) mg/dL Total Bilirubin (0.2-1.3) mg/dL Ammonia 93 H (<30) umol/L Troponin I 0.066 H* (0.000-0.034) ng/mL Total Protein (6.3-8.2) g/dL Albumin (3.5-5.0) g/dL Urine Appearance (Clear) Ur Specific [place] (1.001-1.035) Urine Protein (Negative) Urine Blood (Negative) Ur Leukocyte Esterase (Negative) Urine RBC (0-5) /hpf Urine WBC (0-5) /hpf Ur Squamous Epith Cells (0-4) /hpf Urine Bacteria (None) /hpf Urine Mucus (None) /hpf 01/31/22 Range/Units 23:09 WBC (3.8-10.6) k/uL RBC (3.80-5.40) m/uL Hct (34.0-46.0) % RDW (11.5-15.5) % Plt Count (150-450) k/uL Neutrophils # (1.3-7.7) k/uL Lymphocytes # (1.0-4.8) k/uL PT (9.0-12.0) sec INR (<1.2) VBG pCO2 (37-51) mmHg VBG HCO3 (24-28) mmol/L Chloride (98-107) mmol/L Carbon Dioxide (22-30) mmol/L BUN (7-17) mg/dL Glucose (74-99) mg/dL Plasma Lactic Acid Vincent (0.7-2.0) mmol/L Calcium (8.4-10.2) mg/dL Total Bilirubin (0.2-1.3) mg/dL Ammonia (<30) umol/L Troponin I (0.000-0.034) ng/mL Total Protein (6.3-8.2) g/dL Albumin (3.5-5.0) g/dL Urine Appearance Cloudy H (Clear) Ur Specific [place] >1.050 H (1.001-1.035) Urine Protein 1+ H (Negative) Urine Blood Large H (Negative) Ur Leukocyte Esterase Large H (Negative) Urine RBC 62 H (0-5) /hpf Urine WBC 53 H (0-5) /hpf Ur Squamous Epith Cells 11 H (0-4) /hpf Urine Bacteria Occasional H (None) /hpf Urine Mucus Rare H (None) /hpf Microbiology - Last 24 Hours (Table) 01/31/22 23:09 Urine Culture - Preliminary Urine,Voided Assessment and Plan (1) Urinary tract infection Status: Acute Code(s): N39.0 - URINARY TRACT INFECTION, SITE NOT SPECIFIED SNOMED Code(s): 95092529 Plan: Patient presented to hospital with mental status change which is likely multifactorial and likely secondary to symptomatic urinary tract infection from enteric gram-negative pathogen patient did have a history of constipation and concerning for possible focal colitis in the rectosigmoid area you need to cover for the diarrhea gram-negative both aerobes and anaerobes. 2patient with a penicillin and cephalosporin allergy that would limit the number of antibiotics safe to use. 3discontinue Levaquin and vancomycin. 4we will start the patient on Azactam and Flagyl while waiting for the work-up to be completed. We will follow on clinical condition and cultures to further adjust medication if needed Thank you for this consultation will follow this patient along with you Time with Patient: Greater than 30
--- NOTE | 2022-02-02 | HP ---
HISTORY AND PHYSICAL CHIEF COMPLAINT: Change in mental status. HISTORY OF PRESENT ILLNESS: This 81-year-old woman with a past medical history of chronic liver disease secondary to cryptogenic cirrhosis of the liver, was apparently having some confusion. took the patient to [facility], was found to have hepatic encephalopathy. Ammonia was high. The patient also had fecal impaction, possible focal colitis also. There is no history of any fever, rigors, or chills at this time. PAST MEDICAL HISTORY: Reviewed and include chronic liver disease, CAD. The rest of the history and the whole of the chart is reviewed. MEDICATIONS: Lisinopril. Dose and rest of the chart also reviewed. ALLERGIES: Reviewed and multiple allergies include Keflex. The rest of the allergies reviewed. FAMILY HISTORY: Breast cancer. SOCIAL HISTORY: Previous history of smoking. No history of alcohol intake. REVIEW OF SYSTEMS: A 14-point review of systems is negative as mentioned earlier. PHYSICAL EXAMINATION: VITAL SIGNS: Pulse 90, blood pressure n, respirations 19. HEENT: Conjunctivae normal. Oral mucosa dry. NECK: No JVD. CARDIOVASCULAR: S1, S2. RESPIRATION: Few scattered rhonchi. ABDOMEN: Soft, nontender. No mass palpable. LEGS: No edema. NERVOUS SYSTEM: Diffusely weak. Hepatic tremors also present. SKIN: No ulcer, rash, bleeding. JOINTS: No active deforming arthropathy. LABORATORY DATA: Reviewed. The bilirubin is 2.4. The rest of the labs are reviewed. ASSESSMENT: 1. Change in mental status, possible acute hepatic encephalopathy. 2. Cryptogenic cirrhosis of the liver. 3. Acute urinary tract infection. 4. Focal colitis with fecal impaction. 5. Hypertension. 6. Hyperlipidemia. 7. Multiple medical issues. RECOMMENDATIONS AND DISCUSSION: This 81-year-old woman presented with multiple complex medical issues. At this time, I would recommend continue with current medications and lactulose, GI consultation, empiric antibiotics, and I would also recommend Infectious Disease evaluation because of the multiple antibiotic allergies. Otherwise, overall prognosis is extremely guarded because of multiple complex medical issues. Discussed with the family at length. Further recommendations to follow. See orders for further details. MMODL / IJN: [id number] / MTDD
[2022-02-02] MEDS: AZTREONAM 2 GM in SODIUM CHLORIDE 0.9% 100 ML IVPB SCH ×4 (00:56→23:04)
[2022-02-02] MEDS: SODIUM CHLORIDE 0.9% 1,000 ML IV SCH ×2 (04:46→18:20)
[2022-02-02 07:43] LABS: Basophils % (A) 0 %; Eosinophils # (A) 0.2 k/uL (0-0.7); Eosinophils % (A) 3 %; HCT 28.9 % (34.0-46.0); HGB 10.4 gm/dL (11.4-16.0); Hyperchromasia Slight; Lymphocytes # (A) 0.6 k/uL (1.0-4.8); Lymphocytes % (A) 8 %; MCH 33.1 pg (25.0-35.0); Mean Platelet Volume 9.9; Monocytes # (A) 0.4 k/uL (0-1.0); Monocytes % (A) 5 %; Neutrophils # (A) 5.9 k/uL (1.3-7.7); Neutrophils % (A) 81 %; Poikilocytosis Moderate; RBC 3.14 m/uL (3.80-5.40); RDW 15.9 % (11.5-15.5); WBC 7.3 k/uL (3.8-10.6)
[2022-02-02 07:47] LABS: Platelet Count 45 k/uL (150-450)
[2022-02-02 07:54] LABS: Calcium 7.4 mg/dL (8.4-10.2); Potassium 3.7 mmol/L (3.5-5.1); Total Bilirubin 1.8 mg/dL (0.2-1.3)
[2022-02-02] MEDS: PANTOPRAZOLE 40 MG/10 ML VIAL IVP SCH (08:24)
[2022-02-02] MEDS: LACTULOSE 20 GM/30 ML CUP PO SCH ×3 (08:24→20:26)
[2022-02-02] MEDS: ACETAMINOPHEN TAB 325 MG TAB PO PRN ×2 (08:24→18:40)
[2022-02-02] MEDS: metroNIDAZOLE 500 MG TAB PO SCH ×3 (08:25→20:25)
[2022-02-02] MEDS: lisinopriL 5 MG TAB PO SCH (08:25)
[2022-02-02] MEDS: FERROUS SULFATE 325 MG TAB PO SCH (08:26)
[2022-02-02] MEDS: METOPROLOL TARTRATE 50 MG TAB PO SCH ×2 (08:26→20:26)
[2022-02-02] MEDS: PRAVASTATIN SODIUM 80 MG TAB PO SCH (08:26)
[2022-02-02] MEDS: ISOSORBIDE MONONITRATE ER 60 MG TAB.ER.24H PO SCH (08:26)
[2022-02-02] MEDS: ASPIRIN 81 MG PO SCH (08:26)
[2022-02-02] MEDS: PRIMIDONE 50 MG TAB PO SCH (20:26)
--- NOTE | 2022-02-02 21:00 | PN ---
PROGRESS NOTE DATE OF SERVICE: 02/02/2022 SUBJECTIVE: This 81-year-old woman, who was admitted with acute change in mental status, acute hepatic encephalopathy, and cryptogenic cirrhosis of the liver, also had UTI. The patient was started on empiric antibiotics. Cultures are negative. Ammonia is improving. OBJECTIVE: VITAL SIGNS: Pulse is 68, blood pressure 140/79, respirations 18. CHEST: Clear to auscultation. CARDIOVASCULAR: S1 and S2. ABDOMEN: Soft, ascites present. NERVOUS SYSTEM: Diffusely weak. LABORATORY DATA: Noted. Ammonia is 47. ASSESSMENT: 1. Change in mental status, acute hepatic encephalopathy. 2. Cryptogenic cirrhosis of the liver. 3. Acute urinary tract infection. 4. Focal colitis with fecal impaction. 5. Hypertension. 6. Hyperlipidemia. 7. Multiple medical issues. RECOMMENDATIONS: I recommend to continue current medications. Continue with lactulose. Continue with empiric antibiotics. Closely follow with Infectious Disease. Further recommendations to follow. MMODL / IJN: [id number] /
[2022-02-03] MEDS: SODIUM CHLORIDE 0.9% 1,000 ML IV SCH (04:56)
[2022-02-03 09:00] LABS: Basophils % (A) 1 %; Eosinophils # (A) 0.4 k/uL (0-0.7); Eosinophils % (A) 6 %; HCT 28.5 % (34.0-46.0); Lymphocytes # (A) 0.5 k/uL (1.0-4.8); Lymphocytes % (A) 10 %; MCH 32.7 pg (25.0-35.0); MCHC 35.1 g/dL (31.0-37.0); MCV 93.2 fL (80.0-100.0); Mean Platelet Volume 9.7; Monocytes # (A) 0.3 k/uL (0-1.0); Monocytes % (A) 6 %; Neutrophils % (A) 75 %; Poikilocytosis Moderate; RBC 3.06 m/uL (3.80-5.40); RDW 15.9 % (11.5-15.5); WBC 5.4 k/uL (3.8-10.6)
[2022-02-03 09:05] LABS: Albumin 1.9 g/dL (3.5-5.0); Calcium 7.5 mg/dL (8.4-10.2); Total Bilirubin 1.3 mg/dL (0.2-1.3); Total Protein 3.8 g/dL (6.3-8.2)
[2022-02-03 09:07] LABS: Platelet Count 50 k/uL (150-450)
[2022-02-03] MEDS: PANTOPRAZOLE 40 MG/10 ML VIAL IVP SCH (09:39)
[2022-02-03] MEDS: LACTULOSE 20 GM/30 ML CUP PO SCH (09:39)
[2022-02-03] MEDS: ISOSORBIDE MONONITRATE ER 60 MG TAB.ER.24H PO SCH (09:39)
[2022-02-03] MEDS: FERROUS SULFATE 325 MG TAB PO SCH (09:40)
[2022-02-03] MEDS: METOPROLOL TARTRATE 50 MG TAB PO SCH (09:40)
[2022-02-03] MEDS: PRAVASTATIN SODIUM 80 MG TAB PO SCH (09:40)
[2022-02-03] MEDS: lisinopriL 5 MG TAB PO SCH (09:40)
[2022-02-03] MEDS: metroNIDAZOLE 500 MG TAB PO SCH (09:40)
[2022-02-03] MEDS: ASPIRIN 81 MG PO SCH (09:41)
[2022-02-03] MEDS: ACETAMINOPHEN TAB 325 MG TAB PO PRN (09:44)
[2022-02-03] MEDS ORDERED: diphenhydrAMINE 50 MG/ML 1 ML VIAL IVP STA (11:08)
--- NOTE | 2022-02-03 12:29 | XR ---
EXAMINATION TYPE: XR chest 1V portable DATE OF EXAM: 02/03/2022 COMPARISON: 01/31/2022 HISTORY: Shortness of breath TECHNIQUE: Single frontal view of the chest is obtained. FINDINGS: There is no focal air space opacity, pleural effusion, or pneumothorax seen. The cardiac silhouette size is within normal limits. The osseous structures are intact. Limited inspiration wit h elevation of the right hemidiaphragm. Diffuse osteopenia with arthropathy of the shoulders. Atheros clerotic change aorta. No overt failure. IMPRESSION: No acute process.
[2022-02-03] MEDS: AZTREONAM 2 GM in SODIUM CHLORIDE 0.9% 100 ML IVPB SCH (12:50)
[2022-02-03 13:17] VITALS: BP 133/60; PULSE 73; RESP 18; TEMP 96.5
--- NOTE | 2022-02-03 14:18 | P.DS ---
Providers Date of admission: 01/31/22 22:05 Expected date of discharge: 02/03/22 Attending physician: Betsy Kruger Consults: 02/01/22 12:15 Consult Physician Routine Consulting Provider: Kirstal Hammer Consult Reason/Comments: uti/colitis Do you want consulting provider notified?: Yes Primary care physician: Dane Oliva MD Hospital Course: Final diagnosis Change in mental status, secondary to acute hepatic encephalopathy Cryptogenic cirrhosis of the liver Acute urinary tract infection, present on admission with culture showing E. coli Focal colitis with fecal impaction status post disimpaction Hypertension Hyperammonemia Hyperlipidemia Discharge disposition Patient is being discharged in a stable condition with guarded prognosis to home with home care. Patient will follow-up with Dr. Dane Oliva in the outpatient setting upon discharge. Patient is to follow-up with GI as scheduled. Patient to continue on lactulose 3 times a day and goal is to have 2-3 bowel movements daily. Total time taken is greater than 35 minutes. Hospital course This is a 64-year-old male who was recently admitted with acute altered mental status, acute hepatic encephalopathy with cryptogenic cirrhosis of the liver also with urinary tract infection. Being closely monitored on antibiotics showed improvement also underwent disimpaction in the ER and having bowel movements and recommend to continue on lactulose as ammonia was elevated. Patient will need close outpatient follow-up with GI in the outpatient setting. Blood culture showing gram-positive cocci and discuss with infectious disease most likely contaminant and patient was on IV antibiotics and switching over to Bactrim with close outpatient follow-up. Patient adamant about going home today and family agreeable to take her home. Currently no reports of chest pain, shortness of breath, or palpitations. Patient is afebrile. No reports of nausea or vomiting and patient is tolerating diet. Patient will be discharged home today. Guarded prognosis. Physical exam: Gen: This is a 81-year-old female awake, alert and oriented 2-3, ill-appearing, elderly female, jaundice HEENT: Head is atraumatic, normocephalic. Pupils equal, round. Sclerae is anicteric. NECK: Supple. No JVD. No lymphadenopathy. No thyromegaly. LUNGS diminished breath sounds bilaterally with no wheezes or rhonchi. No intercostal retractions. HEART: S1, S2 are muffled. No murmur. ABDOMEN: Soft. Mildly distended. Bowel sounds are present. No masses. No tenderness. EXTREMITIES: No pedal edema. No calf tenderness. NEUROLOGICAL: Patient is awake, alert and oriented x3. Cranial nerves 2 through 12 are grossly intact. Please refer to medication reconciliation sheet for a list of medications. The impression and plan of care has been dictated by Halima Umana, Nurse Practitioner as directed. Dr. Slick MD I have performed a history and examination and MDM of this patient, discussed the same with the dictator, and agree with the dictator's assessment and plan as written ,documented as a scribe. Based on total visit time, I have performed more than 50% of the visit. Patient Condition at Discharge: Fair Plan - Discharge Summary Discharge Rx Participant: Yes New Discharge Prescriptions: New Sulfamethox-Tmp 800-160Mg [Bactrim DS 800-160 mg] 1 tab PO Q12HR 5 Days #10 tab Lactulose [Cephulac] 20 gm PO TID 30 Days #2700 ml Acetaminophen Tab [Tylenol] 650 mg PO Q8HR PRN tab PRN Reason: Fever And/ Or Pain Continue Metoprolol Tartrate [Lopressor] 50 mg PO BID Isosorbide Mononitrate ER [Imdur] 60 mg PO DAILY Aspirin EC [Ecotrin Low Dose] 81 mg PO DAILY lisinopriL [Zestril] 15 mg PO DAILY Ferrous Sulfate [Iron (65 MG Elemental)] 325 mg PO DAILY Pravastatin Sodium 80 mg PO DAILY Furosemide [Lasix] 40 mg PO DAILY PRN PRN Reason: swelling Primidone [Mysoline] 50 mg PO HS Discharge Medication List Metoprolol Tartrate [Lopressor] 50 mg PO BID 03/09/15 [History] Isosorbide Mononitrate ER [Imdur] 60 mg PO DAILY 10/30/15 [History] Aspirin EC [Ecotrin Low Dose] 81 mg PO DAILY 09/12/18 [History] lisinopriL [Zestril] 15 mg PO DAILY 01/20/19 [History] Ferrous Sulfate [Iron (65 MG Elemental)] 325 mg PO DAILY 07/30/20 [History] Pravastatin Sodium 80 mg PO DAILY 07/30/20 [History] Primidone [Mysoline] 50 mg PO HS 07/30/20 [History] Furosemide [Lasix] 40 mg PO DAILY PRN 07/06/21 [History] Acetaminophen Tab [Tylenol] 650 mg PO Q8HR PRN tab 02/03/22 [Rx] Lactulose [Cephulac] 20 gm PO TID 30 Days #2700 ml 02/03/22 [Rx] Sulfamethox-Tmp 800-160Mg [Bactrim DS 800-160 mg] 1 tab PO Q12HR 5 Days #10 tab 02/03/22 [Rx] Follow up Appointment(s)/Referral(s): [facility], [NON-STAFF] - Dane Oliva MD [Primary Care Provider] - 1-2 days Michelle Sheppard MD [STAFF PHYSICIAN] - 1 Week Activity/Diet/Wound Care/Special Instructions: Activity Limited until follow-up Follow-up with primary care provider discharge Continue taking medications as prescribed Continue with lactulose 2-3 times daily to continue having 2-3 bowel movements daily If having more bowel movements and becoming more loose like diarrhea then hold lactulose for that day Recommend GI follow-up Discharge/Stand Alone Forms: Who Do I Call?, Personal Masticator Discharge Disposition: HOME WITH HOME HEALTH SERVICES
--- NOTE | 2022-02-08 13:29 | CDI ---
Documentation Clarification Form Date: 02/08/22 From: Kennedi Dc Admit Date: 01/31/2022 10:05:00 PM Patient Name: Gmema Rosas Visit Number: [id number] Discharge Date: 02/03/2022 05:07:00 PM ATTENTION: The Clinical Documentation Specialists (CDI) and [facility] Coding Staff appreciate your assistance in clarifying documentation. Please respond to the clarification below the line at the bottom and electronically sign. The CDI & [facility] Coding staff will review the response and follow-up if needed. Please note: Queries are made part of the Legal Health Record. If you have any questions, please contact the author of this message via ITS. Dr. Betsy Kruger, Sepsis is documented in the ED Note, but is not noted in subsequent documentation. Clarification is requested. History/Risk Factors: Hepatic encephalopathy, ITP, UTI d/t E coli, HTN heart disease w heart failure, cryptogenic cirrhosis of the liver, fecal impaction w colitis Clinical Indicators: Lactic acid 2.4, WBC 13.5, Neutrophil 11.9 VS: T 100.4, P 100, R 16, BP 141/60, 110/58, 110/54, 120/68; O2 Sat 98 Treatment: IV fluids, IV Vanco, IV Levofloxacin Please clarify if the sepsis: x ] Sepsis confirmed [ ] Sepsis ruled out [ ] Other condition, please specify [ ] Unable to determine MTDD
--- NOTE | 2022-02-10 23:15 | P.PN ---
Subjective Progress Note Date: 02/02/22 Principal diagnosis: Urinary tract infection and colitis Patient is a 81-year-old female brought into the hospital with mental status changes patient did have a positive UA and also have significant constipation with a CT suggestive of possible focal colitis in the sigmoid region patient did have multiple antibiotic ALLERGIES. On today's evaluation that is 02/02/2022, the patient denies having any fever or any chills patient is more awake and alert breathing comfortably no chest pain shortness of breath or cough no abdominal pain no diarrhea Objective - Vital Signs Vital signs: Vital Signs Temp 97.5 F L 02/02/22 08:00 Pulse 73 02/02/22 08:00 Resp 14 02/02/22 08:00 BP 123/76 02/02/22 08:00 Pulse Ox 100 02/02/22 08:00 FiO2 Intake & Output 02/01/22 02/02/22 02/02/22 18:59 06:59 18:59 Intake Total 236 1045 236 Output Total 101 Balance 236 944 236 Intake: Intake, IV Titration 925 Amount Aztreonam 2 gm In Sodium 100 Chloride 0.9% 100 ml @ 33 .3 mls/hr IVPB Q8HR [facility] Rx#:[id number] Sodium Chloride 0.9% 1, 825 000 ml @ 75 mls/hr IV . [id number] [facility] Rx#:[id number] Oral 236 120 236 Output: Urine 100 Stool 1 Other: Voiding Method Toilet Toilet # Voids 1 1 1 # Bowel Movements 1 1 1 - Exam GENERAL DESCRIPTION: An elderly female lying in bed in no distress RESPIRATORY SYSTEM: Unlabored breathing , decreased breath sounds at bases HEART: S1 S2 regular rate and rhythm , ABDOMEN: Soft , no tenderness EXTREMITIES: No edema feet - Labs CBC & Chem 7: 02/03/22 08:10 02/03/22 08:10 Labs: Abnormal Lab Results - Last 24 Hours (Table) 02/02/22 02/02/22 02/02/22 Range/Units 07:17 07:17 07:17 RBC 3.14 L (3.80-5.40) m/uL Hgb 10.4 L (11.4-16.0) gm/dL Hct 28.9 L (34.0-46.0) % RDW 15.9 H (11.5-15.5) % Plt Count 45 L (150-450) k/uL Lymphocytes # 0.6 L (1.0-4.8) k/uL Chloride 118 H (98-107) mmol/L Carbon Dioxide 18 L (22-30) mmol/L BUN 23 H (7-17) mg/dL Calcium 7.4 L (8.4-10.2) mg/dL Total Bilirubin 1.8 H (0.2-1.3) mg/dL Ammonia 47 H (<30) umol/L Total Protein 4.0 L (6.3-8.2) g/dL Albumin 2.0 L (3.5-5.0) g/dL Microbiology - Last 24 Hours (Table) 01/31/22 23:09 Urine Culture - Preliminary Urine,Voided Gram Neg Bacilli 01/31/22 22:58 Blood Culture - Preliminary Blood No Growth after 24 hours Assessment and Plan (1) UTI (urinary tract infection), uncomplicated Status: Acute Priority: High Code(s): N39.0 - URINARY TRACT INFECTION, SITE NOT SPECIFIED SNOMED Code(s): 65390436 Plan: Patient presented to hospital with mental status change which is likely multifactorial and likely secondary to symptomatic urinary tract infection from enteric gram-negative pathogen patient did have a history of constipation and concerning for possible focal colitis in the rectosigmoid area you need to cover for the diarrhea gram-negative both aerobes and anaerobes. 2patient with a penicillin and cephalosporin allergy that would limit the number of antibiotics safe to use. 3Asian seemed to have shown some clinical improvement and will continue Azactam and Flagyl while waiting for the work-up to be completed. Time with Patient: Less than 30
--- NOTE | 2022-02-10 23:16 | P.PN ---
Subjective Progress Note Date: 02/03/22 Principal diagnosis: Urinary tract infection and colitis Patient is a 81-year-old female brought into the hospital with mental status changes patient did have a positive UA and also have significant constipation with a CT suggestive of possible focal colitis in the sigmoid region patient did have multiple antibiotic ALLERGIES. On today's evaluation that is 02/03/2022, the patient remains to be afebrile, the patient is breathing comfortably on room air, the patient denies chest pain shortness of breath or cough no abdominal pain no diarrhea, the patient is feeling better wants to go home Objective - Vital Signs Vital signs: Vital Signs Temp 96.3 F L 02/03/22 09:35 Pulse 77 02/03/22 09:35 Resp 20 02/03/22 09:35 BP 127/61 02/03/22 09:35 Pulse Ox 100 02/03/22 09:35 FiO2 Intake & Output 02/02/22 02/03/22 02/03/22 18:59 06:59 18:59 Intake Total 1154 Output Total 9 150 Balance 1145 -150 Intake: Intake, IV Titration 800 Amount Aztreonam 2 gm In Sodium 200 Chloride 0.9% 100 ml @ 33 .3 mls/hr IVPB Q8HR [facility] Rx#:[id number] Sodium Chloride 0.9% 1, 600 000 ml @ 75 mls/hr IV . [id number] [facility] Rx#:[id number] Oral 354 Output: Stool 9 150 Other: Voiding Method Toilet Toilet Toilet Bedside Commode Bedside Commode Bedside Commode Bedpan Bedpan Bedpan Diaper Diaper Diaper Incontinent Incontinent Incontinent External Catheter External Catheter External Catheter # Voids 1 # Bowel Movements 1 - Exam GENERAL DESCRIPTION: An elderly female lying in bed in no distress RESPIRATORY SYSTEM: Unlabored breathing , decreased breath sounds at bases HEART: S1 S2 regular rate and rhythm , ABDOMEN: Soft , no tenderness EXTREMITIES: No edema feet - Labs CBC & Chem 7: 02/03/22 08:10 02/03/22 08:10 Labs: Abnormal Lab Results - Last 24 Hours (Table) 02/03/22 02/03/22 Range/Units 08:10 08:10 RBC 3.06 L (3.80-5.40) m/uL Hgb 10.0 L (11.4-16.0) gm/dL Hct 28.5 L (34.0-46.0) % RDW 15.9 H (11.5-15.5) % Plt Count 50 L (150-450) k/uL Lymphocytes # 0.5 L (1.0-4.8) k/uL Chloride 118 H (98-107) mmol/L Carbon Dioxide 18 L (22-30) mmol/L BUN 23 H (7-17) mg/dL Calcium 7.5 L (8.4-10.2) mg/dL Total Protein 3.8 L (6.3-8.2) g/dL Albumin 1.9 L (3.5-5.0) g/dL Microbiology - Last 24 Hours (Table) 01/31/22 23:09 Urine Culture - Final Urine,Voided Escherichia coli 01/31/22 22:58 Blood Culture Gram Stain - Preliminary Blood 01/31/22 22:58 Blood Culture - Final Blood Assessment and Plan (1) UTI (urinary tract infection), uncomplicated Status: Acute Priority: High Code(s): N39.0 - URINARY TRACT INFECTION, SITE NOT SPECIFIED SNOMED Code(s): 06232632 Plan: Patient presented to hospital with mental status change which is likely multifactorial and likely secondary to symptomatic urinary tract infection from enteric gram-negative pathogen patient did have a history of constipation and concerning for possible focal colitis in the rectosigmoid area you need to cover for the diarrhea gram-negative both aerobes and anaerobes. 2patient with a penicillin and cephalosporin allergy that would limit the number of antibiotics safe to use. 3-patient with a positive blood culture with thrice patient is likely contamination 4patient has shown clinical improvement, urine has been finalized with an E. coli patient will finish therapy with the Bactrim DS in view of multiple antibiotic ALLERGIES Time with Patient: Less than 30
== END 2022-02-03 17:07 | disposition home health service (06) | DRG 872 ==
LOC: EC 15:29 → 3SCARD 22:05
PROVIDERS: ADMIT Hospitalist; ATTEND Hospitalist
DX: A41.51 Sepsis due to Escherichia coli [E. coli] (principal); D69.3 Immune thrombocytopenic purpura; N39.0 Urinary tract infection, site not specified; K76.82 Hepatic encephalopathy; I11.0 Hypertensive heart disease with heart failure; I50.9 Heart failure, unspecified; K74.69 Other cirrhosis of liver; K56.41 Fecal impaction; Z28.310 Unvaccinated for COVID-19; E78.5 Hyperlipidemia, unspecified; E86.0 Dehydration; I25.10 Atherosclerotic heart disease of native coronary artery without angina pectoris; I25.2 Old myocardial infarction; K21.9 Gastro-esophageal reflux disease without esophagitis; K52.9 Noninfective gastroenteritis and colitis, unspecified; M19.90 Unspecified osteoarthritis, unspecified site; Z79.82 Long term (current) use of aspirin; Z79.899 Other long term (current) drug therapy; Z87.891 Personal history of nicotine dependence; Z95.5 Presence of coronary angioplasty implant and graft; Z96.60 Presence of unspecified orthopedic joint implant; Z88.1 Allergy status to other antibiotic agents; Z88.5 Allergy status to narcotic agent; Z88.0 Allergy status to penicillin; Z88.8 Allergy status to other drugs, medicaments and biological substances
CPT/HCPCS: 36415; 70450; 71045; 71046; 74177; 80053; 81001; 82140; 82550; 82803; 83605; 83735; 84484; 85025; 85610; 85730; 87040; 87077; 87086; 87186; 93005; 96365; 99291

== ENCOUNTER 2022-02-21 04:03 | Observation (INO) | payer MEDICARE ==
--- NOTE | 2022-02-21 05:29 | XR ---
EXAMINATION TYPE: XR chest 2V DATE OF EXAM: 02/21/2022 COMPARISON: NONE HISTORY: Short of breath TECHNIQUE: 2 views FINDINGS: Heart size is normal. Lungs are clear of consolidation. There are no hilar masses. Thoracic aorta is atheromatous. There are chest leads. No pleural effusion. There is some osteopenia. IMPRESSION: There is slight coarsening of the interstitial markings which are increased compared to recent exam. No heart failure.
[2022-02-21 05:35] LABS: Anisocytosis Slight; Basophils % (A) 1 %; Eosinophils # (A) 0.1 k/uL (0-0.7); Eosinophils % (A) 3 %; HCT 30.7 % (34.0-46.0); Hyperchromasia Slight; Lymphocytes # (A) 0.7 k/uL (1.0-4.8); Lymphocytes % (A) 22 %; MCH 32.8 pg (25.0-35.0); MCHC 35.8 g/dL (31.0-37.0); MCV 91.7 fL (80.0-100.0); Mean Platelet Volume 9.1; Monocytes # (A) 0.3 k/uL (0-1.0); Monocytes % (A) 10 %; Neutrophils % (A) 61 %; Poikilocytosis Moderate; RBC 3.34 m/uL (3.80-5.40); RDW 16.3 % (11.5-15.5); WBC 3.2 k/uL (3.8-10.6)
[2022-02-21 05:51] LABS: Albumin 2.9 g/dL (3.5-5.0); Calcium 8.4 mg/dL (8.4-10.2); Magnesium 1.5 mg/dL (1.6-2.3); Potassium 3.5 mmol/L (3.5-5.1); Total Protein 5.6 g/dL (6.3-8.2)
[2022-02-21 05:55] LABS: INR 1.2 (<1.2); Partial Thromboplastin Time 25.5 sec (22.0-30.0)
--- NOTE | 2022-02-21 06:37 | ED ---
Chest Pain HPI - General Chief Complaint: Chest Pain Stated Complaint: Chest Pain Time Seen by Provider: 02/21/22 04:15 Source: EMS Mode of arrival: EMS Limitations: no limitations - History of Present Illness Initial Comments: 81-year-old female with past history of coronary artery disease, hypertension, hyperlipidemia who presents to the emergency department reporting chest pain. States that the pain awoke her from sleep. Pain is located over the left side of her chest and is associated with shortness of breath and pain started around 3:30 AM. She woke her who then awoke their daughter. Daughter called EMS. She denies that she was given any aspirin or nitro by EMS. She arrives and states that the pain is resolved at this time. She denies fevers, chills or cough. Normally follows with Dr. Cherry. Denies history of DVT or PE. No calf pain or swelling. Patient does not take any blood thinners. Pain is not reproducible. No other alleviating, precipitating or modifying factors - Related Data Home Medications Medication Instructions Recorded Confirmed Metoprolol Tartrate [Lopressor] 50 mg PO BID 03/09/15 01/31/22 Isosorbide Mononitrate ER [Imdur] 60 mg PO DAILY 10/30/15 01/31/22 Aspirin EC [Ecotrin Low Dose] 81 mg PO DAILY 09/12/18 01/31/22 lisinopriL [Zestril] 15 mg PO DAILY 01/20/19 01/31/22 Ferrous Sulfate [Iron (65 MG 325 mg PO DAILY 07/30/20 01/31/22 Elemental)] Pravastatin Sodium 80 mg PO DAILY 07/30/20 01/31/22 Primidone [Mysoline] 50 mg PO HS 07/30/20 01/31/22 Furosemide [Lasix] 40 mg PO DAILY PRN 07/06/21 01/31/22 Previous Rx's Medication Instructions Recorded Acetaminophen Tab [Tylenol] 650 mg PO Q8HR PRN tab 02/03/22 Lactulose [Cephulac] 20 gm PO TID 30 Days #2700 ml 02/03/22 Sulfamethox-Tmp 800-160Mg [Bactrim 1 tab PO Q12HR 5 Days #10 tab 02/03/22 DS 800-160 mg] Allergies Allergy/AdvReac Type Severity Reaction Status Date / Time cephalexin monohydrate Allergy Rash/Hives/ Verified 02/21/22 04:10 [From Keflex] Swelling codeine Allergy Rash/Hives Verified 02/21/22 04:10 doxepin Allergy Rash/Hives Verified 02/21/22 04:10 meperidine HCl [From Demerol] Allergy Rash/Hives Verified 02/21/22 04:10 methylprednisolone Allergy Rash/Hives Verified 02/21/22 04:10 [From Medrol] Opioids - Morphine Analogues Allergy Rash/Hives Verified 02/21/22 04:10 Penicillins Allergy Swelling Verified 02/21/22 04:10 over entire body pentazocine lactate Allergy Rash/Hives-Stomach Verified 02/21/22 04:10 [From Talwin] Upset propoxyphene napsylate Allergy Rash/Hives- Verified 02/21/22 04:10 [From Darvocet-N] Itch tramadol Allergy Rash/Hives Verified 02/21/22 04:10 Review of Systems ROS Statement: Those systems with pertinent positive or pertinent negative responses have been documented in the HPI. ROS Other: All systems not noted in ROS Statement are negative. EKG Findings - EKG Comments: EKG Findings:: EKG performed at 4:11 AM demonstrates a sinus rhythm with a left bundle branch block. Rate of 72. [place] interval 197. QRS 178. QTC 481. No sgarbossa criteria. 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 Kan). 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, left hip repair with rods 09-15-2018, left femur surgery with rods Past Anesthesia/Blood Transfusion Reactions: No Reported Reaction Date of Last Stent Placement:: 1998 Past Psychological History: No Psychological Hx Reported Smoking Status: Former smoker Past Alcohol Use History: None Reported Past Drug Use History: None Reported - Past Family History Mother Family Medical History: Cancer Additional Family Medical History / Comment(s): Breast Ca Father Family Medical History: Myocardial Infarction ([place]) Additional Family Medical History / Comment(s): @ age 86 from [place] General Exam Limitations: no limitations Course Vital Signs 02/21/22 04:10 Temperature 98.8 F Pulse Rate 73 Respiratory 15 Rate Blood Pressure 134/57 O2 Sat by Pulse 100 Oximetry Chest Pain MDM - MDM Upon arrival patient was placed into room 1. A thorough history and physical exam was performed. She is hooked to continuous pulse ox and cardiac monitoring. 12-lead EKG is obtained which demonstrates a left bundle branch block. Chest x-rays performed. I reviewed the patient's laboratory studies. Troponin is negative. Platelets are 55 for which I do feel that it is appropriate to give the patient an aspirin at this time. Magnesium 1.5. This is replaced. Chest x-ray demonstrates slight coarsening of the interstitial markings with no heart failure. I reviewed the patient's records and her previous heart catheterization earlier this year which didn't demonstrate significant coronary disease. Recommended admission for which the patient was agreeable. I will trend her troponins and consult cardiology. Spoke with Dr. Liu who agreed to admit the patient. Disposition Clinical Impression: Chest pain Disposition: ADMITTED IP TO THIS HOSP Condition: Stable Is patient prescribed a controlled substance at d/c from ED?: No Time of Disposition: 06:37 Decision to Admit Reason: Admit from EC Decision Date: 02/21/22 Decision Time: 06:37
[2022-02-21] MEDS ORDERED: NALOXONE 0.4 MG/ML 1 ML VIAL IV PRN ×2 (06:41→12:05)
[2022-02-21] MEDS ORDERED: ASPIRIN 81 MG PO STA (07:05)
[2022-02-21 07:31] LABS: Platelet Count 55 k/uL (150-450)
[2022-02-21] MEDS: MAGNESIUM SULFATE-D5W PMX 1 GM in DEXTROSE/WATER 1 100ML.BAG IVPB SCH ×2 (10:57→12:34)
[2022-02-21] MEDS ORDERED: ACETAMINOPHEN TAB 325 MG TAB PO PRN (12:05)
[2022-02-21] MEDS ORDERED: FUROSEMIDE 40 MG TAB PO PRN (12:05)
--- NOTE | 2022-02-21 12:17 | P.HPIM ---
History of Present Illness H&P Date: 02/21/22 Chief Complaint: chest pain 81 y/o female with hx of cryptogenic cirrhosis with splenomegaly, hypertension, hyperlipidemia, chronic systolic CHF with ejection fraction of -45%, coronary artery disease status post stent, chronic ITP, recently admitted last month for UTI and colitis, treated with abx who presents to the emergency department reporting chest pain. States that the pain awoke her from sleep. This has been occurring the past week mainly at night. Pain is located over the left side of her chest and is associated with shortness of breath . She is not a very good historian. Pain associated with dizziness and lightheadedness as well as nausea and vomiting. Denies abdominal pain. No diarrhea. Patient stated that she fell about a week ago, stated that she felt that she was going to pass out, fell and hit the right side of her body. Currently still having right hip pain. Pain is worse with walking. She denies fevers, chills or cough. Normally follows with Dr. Cherry. Evaluation in the emergency department showed normal vital signs. The chest pain was reproducible on the right side of the chest to my exam. Labs revealed sodium 136, magnesium 1.5, troponin negative, lipase 413. Chest x-ray showed worsening of interstitial markings. 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 Kan). 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, left hip repair with rods 09-15-2018, left femur surgery with rods Past Anesthesia/Blood Transfusion Reactions: No Reported Reaction Date of Last Stent Placement:: 1998 Past Psychological History: No Psychological Hx Reported Smoking Status: Former smoker Past Alcohol Use History: None Reported Past Drug Use History: None Reported - Past Family History Mother Family Medical History: Cancer Additional Family Medical History / Comment(s): Breast Ca Father Family Medical History: Myocardial Infarction ([place]) Additional Family Medical History / Comment(s): @ age 86 from [place] Medications and Allergies Home Medications Medication Instructions Recorded Confirmed Type Metoprolol Tartrate [Lopressor] 50 mg PO BID 03/09/15 02/21/22 History Isosorbide Mononitrate ER [Imdur] 60 mg PO DAILY 10/30/15 02/21/22 History Aspirin EC [Ecotrin Low Dose] 81 mg PO DAILY 09/12/18 02/21/22 History lisinopriL [Zestril] 15 mg PO DAILY 01/20/19 02/21/22 History Ferrous Sulfate [Iron (65 MG 325 mg PO DAILY 07/30/20 02/21/22 History Elemental)] Pravastatin Sodium 80 mg PO DAILY 07/30/20 02/21/22 History Primidone [Mysoline] 50 mg PO HS 07/30/20 02/21/22 History Furosemide [Lasix] 40 mg PO DAILY PRN 07/06/21 02/21/22 History Acetaminophen Tab [Tylenol] 650 mg PO Q8HR PRN tab 02/03/22 02/21/22 Rx Allergies Allergy/AdvReac Type Severity Reaction Status Date / Time cephalexin monohydrate Allergy Rash/Hives/ Verified 02/21/22 11:21 [From Keflex] Swelling codeine Allergy Rash/Hives Verified 02/21/22 11:21 doxepin Allergy Rash/Hives Verified 02/21/22 11:21 meperidine HCl [From Demerol] Allergy Rash/Hives Verified 02/21/22 11:21 methylprednisolone Allergy Rash/Hives Verified 02/21/22 11:21 [From Medrol] Opioids - Morphine Analogues Allergy Rash/Hives Verified 02/21/22 11:21 Penicillins Allergy Swelling Verified 02/21/22 11:21 over entire body pentazocine lactate Allergy Rash/Hives-Stomach Verified 02/21/22 11:21 [From Talwin] Upset propoxyphene napsylate Allergy Rash/Hives- Verified 02/21/22 11:21 [From Darvocet-N] Itch tramadol Allergy Rash/Hives Verified 02/21/22 11:21 Physical Exam Vitals: Vital Signs Temp Pulse Resp BP Pulse Ox 02/21/22 04:10 98.8 F 73 15 134/57 100 Intake and Output 02/20/22 02/21/22 02/21/22 22:59 06:59 14:59 Other: Weight 77.111 kg Constitutional: No acute distress, conversant, pleasant Eyes:Anicteric sclerae, moist conjunctiva, no lid-lag, PERRLA, ENMT: Oropharynx clear, no erythema, exudates Neck: Supple, FROM, no masses, or JVD, No carotid bruits, No thyromegaly Lungs: Clear to auscultation, Clear to percussion, Normal respiratory effort, no accessory muscle use Cardiovascular: Reproducible chest pain on the right side of the chest. Heart regular in rate and rhythm, No murmurs, gallops, or rubs, No peripheral edema Abdominal: Soft, Nontender, no guarding, rebound or rigidity, Normoactive bowel sounds, No hepatomegaly, No splenomegaly, No palpable mass Skin: Normal temperature, tone, texture, turgor, no induration, No subcutaneous nodules, No rash, lesions, No ulcers Extremities: Bruising noted over the right hip. No digital cyanosis, No clubbing, Pedal pulses intact and symmetrical, Radial pulses intact and symmetrical, No calf tenderness Psychiatric: Alert and oriented to person, place and time, appropriate affect, intact judgement Neuro: Muscles Strength 5/5 in all 4 extremities, Sensation to light touch grossly present throughout, Cranial nerves II-XII grossly intact, no focal sensory deficits Results CBC & Chem 7: 02/21/22 05:07 02/21/22 05:07 Labs: Abnormal Lab Results - Last 24 Hours (Table) 02/21/22 02/21/22 02/21/22 Range/Units 05:07 05:07 05:07 WBC 3.2 L (3.8-10.6) k/uL RBC 3.34 L (3.80-5.40) m/uL Hgb 11.0 L (11.4-16.0) gm/dL Hct 30.7 L (34.0-46.0) % RDW 16.3 H (11.5-15.5) % Plt Count 55 L (150-450) k/uL Lymphocytes # 0.7 L (1.0-4.8) k/uL INR 1.2 H (<1.2) Sodium 136 L (137-145) mmol/L BUN 24 H (7-17) mg/dL Magnesium 1.5 L (1.6-2.3) mg/dL Total Bilirubin 2.0 H (0.2-1.3) mg/dL AST 39 H (14-36) U/L Total Protein 5.6 L (6.3-8.2) g/dL Albumin 2.9 L (3.5-5.0) g/dL Lipase 413 H (23-300) U/L Assessment and Plan Plan: Chest pain Hx of CAD Could be musculoskeletal discomfort sec to the fall versus cardiac Cycle troponins Telemetry Consult cardiology Right hip pain sec to recent fall Order stat post right hip and pelvis x-ray Tylenol prn for now Hypomagnesemia Replace and follow in a.m. Cryptogenic cirrhosis with splenomegaly, Hypertension, Hyperlipidemia, Chronic systolic CHF with ejection fraction of -45% All stable Resume meds Admit to observation
[2022-02-21] MEDS ORDERED: MAGNESIUM SULFATE-D5W PMX 1 GM in DEXTROSE/WATER 1 100ML.BAG IVPB SCH (12:30)
--- NOTE | 2022-02-21 12:54 | XR ---
EXAMINATION TYPE: XR Hip RT and AP Pelvis DATE OF EXAM: 02/21/2022 CLINICAL HISTORY: pain TECHNIQUE: Single view the pelvis is submitted. 2 views of the right hip are also submitted. FINDINGS: No evidence for fracture, dislocation or bony lesion. Joint spaces are moderate degenerat jose joint space narrowing seen right hip dynamic compression screw and intramedullary mattie left hip... SI joints appear symmetric. IMPRESSION: 1. No acute fracture or dislocation seen. ICD 10 NO FRACTURE, INITIAL EVALUATION
[2022-02-21] MEDS: HYDROcodone/APAP 5-325MG 1 EACH TAB PO PRN (16:18)
[2022-02-21] MEDS ORDERED: PRIMIDONE 50 MG TAB PO SCH (21:00)
[2022-02-21] MEDS: METOPROLOL TARTRATE 50 MG TAB PO SCH (21:27)
[2022-02-21 21:54] VITALS: RESP 18
[2022-02-22] MEDS: HYDROcodone/APAP 5-325MG 1 EACH TAB PO PRN ×2 (00:55→14:19)
[2022-02-22 08:59] LABS: African American GFR (CKD) 61.6 (60.0-200.0); Anion Gap 8.3 mmol/L (10.00-18.00); BUN/Creat Ratio 19.1 Ratio (12.00-20.00); Blood Urea Nitrogen 19.1 mg/dL (9.0-27.0); Calcium 8.1 mg/dL (8.7-10.3); Carbon Dioxide 22.7 mmol/L (20.0-27.5); Magnesium 1.9 mg/dL (1.5-2.4); Non-African American GFR(CKD) 53.2 (60.0-200.0); Potassium 4.2 mmol/L (3.5-5.5)
[2022-02-22] MEDS ORDERED: lisinopriL 5 MG TAB PO SCH (09:00)
[2022-02-22] MEDS ORDERED: PRAVASTATIN SODIUM 80 MG TAB PO SCH (09:00)
[2022-02-22] MEDS ORDERED: ISOSORBIDE MONONITRATE ER 60 MG TAB.ER.24H PO SCH (09:00)
[2022-02-22] MEDS ORDERED: ASPIRIN 81 MG PO SCH (09:00)
[2022-02-22] MEDS ORDERED: FERROUS SULFATE 325 MG TAB PO SCH (09:00)
[2022-02-22] MEDS ORDERED: CAFFEINE CITRATE 60 MG/3 ML VIAL IV PRN (09:20)
[2022-02-22] MEDS ORDERED: AMINOPHYLLINE 500 MG/20 ML VIAL IV PRN (09:20)
[2022-02-22] MEDS ORDERED: REGADENOSON 0.4 MG/5 ML SYRINGE IV PRN (09:20)
[2022-02-22 10:26] LABS: Basophils # (A) 0.01 X 10*3/uL (0.00-0.10); Basophils % (A) 0.3 %; Eosinophils # (A) 0.15 X 10*3/uL (0.04-0.35); Eosinophils % (A) 4.5 %; HGB 9.7 g/dL (12.0-15.0); Immature Grans, Automated 0.6 %; Immature Platelet Fraction 4.6 % (1.1-6.1); Lymphocytes # (A) 0.85 X 10*3/uL (0.90-5.00); Lymphocytes % (A) 25.3 %; MCH 32.4 pg (27.0-32.0); MCHC 33.4 g/dL (32.0-37.0); Mean Platelet Volume 11.4 fL (9.5-12.2); Monocytes # (A) 0.58 X 10*3/uL (0.20-1.00); Monocytes % (A) 17.3 %; NRBC Per 100 WBC 0 /100 WBCS (0.0-0.0); Neutrophils # (A) 1.75 X 10*3/uL (1.80-7.70); Platelet Count 53 X 10*3/uL (140-440); RBC 2.99 X 10*6/uL (4.10-5.20); RDW 16.9 % (11.5-14.5); WBC 3.36 X 10*3/uL (4.50-10.00)
--- NOTE | 2022-02-22 10:42 | P.CRDCN ---
History of Present Illness Consult date: 02/22/22 Consult reason: chest pain History of present illness: History of present illness: This is an 81-year-old female patient of Dr. Ibrahim with past medical history of hypertension, hyperlipidemia, involuntary movement disorder, coronary artery disease status post stenting of the RCA and known chronic total occlusion of the left circumflex and intermediate lesion involving the LAD, ischemic cardiomyopathy, chronic ITP, remote history of tobacco use. Patient has history of acute non-ST elevated myocardial infarction in June 2021 status post cardiac catheterization found occluded left circumflex in the midportion was seems to be chronic and feels from the right coronary artery, intermediate lesion involving the mid left anterior descending artery, elevated left-sided filling pressures. Plan was to address the LAD and later time through myocardial perfusion stress test. Patient presented to the hospital with complaints of chest pain in the midsternal area that started 3 days ago. It has now resolved and she does not know what made it improve. The pain started when she was getting ready to go to bed. She denies having any shortness of breath, sweats, nausea or vomiting, no palpitations, no fever or chills. She states she has a little bit of a cough. No lower extremity edema. EKG is a sinus rhythm With left bundle branch block Chest x-ray reveals slightly coarsening of the interstitial markings increased compared to last exam. No heart failure. WBC 3.3, hemoglobin 9.7, platelet count 53. Electrolytes within normal limits, BUN 19 and creatinine 1. Magnesium 1.9. Troponin negative 3 draws. ProBNP 546. Lipase 413. Echocardiogram 09/2021 revealed EF of 40-45%, grade 1 diastolic dysfunction, moderate concentric left ventricular hypertrophy. Mild aortic regurgitation. Mild to moderate mitral regurgitation, mild tricuspid regurgitation. Mild pulmonary regurgitation. Review Of Systems: At the time of my evaluation: Constitutional: No fever, no chills. No weakness, fatigue or lethargy. EENT: No headache. No dizziness. Lungs: No shortness of breath, a little cough, no sputum production. No wheezing. Cardiovascular: No chest pain, no lower extremity edema. No palpitations. No paroxysmal nocturnal dyspnea. No orthopnea. No lightheadedness or dizziness. No syncopal episodes. Abdominal: No abdominal pain. No nausea, vomiting. No diarrhea. No constipation. No bloody or tarry stools. No loss of appetite. Genitourinary: No dysuria.. No urinary retention. Musculoskeletal: No myalgias. No muscle weakness, no gait dysfunction, no frequent falls. No back pain. No neck pain. Integumentary: No wounds. No rash or pruritus. No unusual bruising. Neurologic: No aphasia. No facial droop. No change in mentation. No head injury. No headache. No paralysis. No paresthesia. Psychiatric: No depression. No anxiety. Endocrine: No abnormal blood sugars. Physical examination: Gen: This is an 81-year-old female. She is resting in bed and appears to be comfortable and in no acute distress VS: Reviewed HEENT: Head is atraumatic, normocephalic. Pupils equal, round. Sclerae is anic teric. NECK: Supple. No JVD. LUNGS: Clear to auscultation. No wheezes or rhonchi. No intercostal retractions. HEART: Regular rate and rhythm. No murmur. ABDOMEN: Soft. No masses. No tenderness. EXTREMITIES: No pedal edema. No calf tenderness. NEUROLOGICAL: Patient is awake, alert and oriented x3. 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 Ibrahim in 1-2 weeks. Thank you kindly for this consultation. Nurse practitioner note has been reviewed, I agree with documented findings and plan of care. Patient was seen and examined. Past Medical History Past Medical History: Blood Disorder, Coronary Artery Disease (CAD), GERD/Reflux, Hyperlipidemia, Hypertension, Myocardial Infarction ([place]), O steoarthritis (OA) Additional Past Medical History / Comment(s): 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 Kan). 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, left hip repair with rods 09-15-2018, left femur surgery with rods Past Anesthesia/Blood Transfusion Reactions: No Reported Reaction Date of Last Stent Placement:: 1998 Past Psychological History: No Psychological Hx Reported Smoking Status: Former smoker Past Alcohol Use History: None Reported Additional Past Alcohol Use History / Comment(s): smokes maybe weekly- 1-2 cigarettes- had smoked and quit for 12 yrs and started up about 5 yrs ago again Past Drug Use History: None Reported - Past Family History Mother Family Medical History: Cancer Additional Family Medical History / Comment(s): Breast Ca Father Family Medical History: Myocardial Infarction ([place]) Additional Family Medical History / Comment(s): @ age 86 from [place] Medications and Allergies Home Medications Medication Instructions Recorded Confirmed Type Metoprolol Tartrate [Lopressor] 50 mg PO BID 03/09/15 02/21/22 History Isosorbide Mononitrate ER [Imdur] 60 mg PO DAILY 10/30/15 02/21/22 History Aspirin EC [Ecotrin Low Dose] 81 mg PO DAILY 09/12/18 02/21/22 History lisinopriL [Zestril] 15 mg PO DAILY 01/20/19 02/21/22 History Ferrous Sulfate [Iron (65 MG 325 mg PO DAILY 07/30/20 02/21/22 History Elemental)] Pravastatin Sodium 80 mg PO DAILY 07/30/20 02/21/22 History Primidone [Mysoline] 50 mg PO HS 07/30/20 02/21/22 History Furosemide [Lasix] 40 mg PO DAILY PRN 07/06/21 02/21/22 History Acetaminophen Tab [Tylenol] 650 mg PO Q8HR PRN tab 02/03/22 02/21/22 Rx Allergies Allergy/AdvReac Type Severity Reaction Status Date / Time cephalexin monohydrate Allergy Rash/Hives/ Verified 02/21/22 11:21 [From Keflex] Swelling codeine Allergy Rash/Hives Verified 02/21/22 11:21 doxepin Allergy Rash/Hives Verified 02/21/22 11:21 meperidine HCl [From Demerol] Allergy Rash/Hives Verified 02/21/22 11:21 methylprednisolone Allergy Rash/Hives Verified 02/21/22 11:21 [From Medrol] Opioids - Morphine Analogues Allergy Rash/Hives Verified 02/21/22 11:21 Penicillins Allergy Swelling Verified 02/21/22 11:21 over entire body pentazocine lactate Allergy Rash/Hives-Stomach Verified 02/21/22 11:21 [From Talwin] Upset propoxyphene napsylate Allergy Rash/Hives- Verified 02/21/22 11:21 [From Darvocet-N] Itch tramadol Allergy Rash/Hives Verified 02/21/22 11:21 Physical Exam Vitals: Vital Signs Temp Pulse Pulse Pulse Resp BP BP 02/22/22 02:12 98.2 F 62 18 112/65 02/21/22 19:21 98.2 F 86 18 134/65 02/21/22 15:00 97.9 F 80 16 161/58 02/21/22 13:42 68 16 127/57 02/21/22 11:03 73 18 118/54 Pulse Ox 02/22/22 02:12 99 02/21/22 19:21 99 02/21/22 15:00 99 02/21/22 13:42 100 02/21/22 11:03 100 Intake and Output 02/21/22 02/22/22 02/22/22 22:59 06:59 14:59 Intake Total 220 Output Total 50 Balance 170 Intake: Oral 220 Output: Urine 50 Other: Voiding Method Bedside Commode Bedside Commode # Voids 2 2 Weight 77.111 kg Results 02/21/22 05:07 02/22/22 04:33 Cardiac Enzymes 02/21/22 02/21/22 Range/Units 08:47 11:49 Troponin I <0.012 <0.012 (0.000-0.034) ng/mL Current Medications Generic Name Dose Route Start Last Admin Trade Name Freq PRN Reason Stop Dose Admin Acetaminophen 650 mg 02/21/22 12:05 Acetaminophen Tab 325 Mg Tab PO Q8HR PRN Fever and/ or Pain Hydrocodone Bitart/Acetaminophen 1 each 02/21/22 15:59 02/22/22 00:55 Hydrocodone/Apap 5-325mg 1 Each Tab PO 1 each Q6HR PRN Administration Pain Aspirin 81 mg 02/22/22 09:00 Aspirin 81 Mg PO DAILY [facility] Ferrous Sulfate 325 mg 02/22/22 09:00 Ferrous Sulfate 325 Mg Tab PO DAILY RONI Furosemide 40 mg 02/21/22 12:05 Furosemide 40 Mg Tab PO DAILY PRN swelling Isosorbide Mononitrate 60 mg 02/22/22 09:00 Isosorbide Mononitrate Er 60 Mg Tab.Er.24h PO DAILY [facility] Lisinopril 15 mg 02/22/22 09:00 Lisinopril 5 Mg Tab PO DAILY [facility] Metoprolol Tartrate 50 mg 02/21/22 21:00 02/21/22 21:27 Metoprolol Tartrate 50 Mg Tab PO 50 mg BID RONI Administration Naloxone HCl 0.2 mg 02/21/22 12:05 Naloxone 0.4 Mg/Ml 1 Ml Vial IV Q2M PRN Opioid Reversal Pravastatin Sodium 80 mg 02/22/22 09:00 Pravastatin Sodium 80 Mg Tab PO DAILY [facility] Primidone 50 mg 02/21/22 21:00 02/21/22 21:27 Primidone 50 Mg Tab PO 50 mg HS RONI Administration Intake and Output 02/21/22 02/22/22 02/22/22 22:59 06:59 14:59 Intake Total 220 Output Total 50 Balance 170 Intake: Oral 220 Output: Urine 50 Other: Voiding Method Bedside Commode Bedside Commode # Voids 2 2 Weight 77.111 kg 02/21/22 05:07 02/21/22 05:07
--- NOTE | 2022-02-22 12:36 | CA ---
Lexiscan Nuclear Stress Test Report Name: Gemma Rosas Exam Date: 02/22/2022 11:59 Exam Location: [facility] Ht (in): 61 Wt (lb): 170 BSA: 1.76 Ordering Phys: Daya Mars Referring Phys: PARISA, Technologist: Carlito Llanes Age: 81 Gender: F : 1940 Procedure CPT: Indications: Reflex order-Stress test ICD-10 Codes: Patient History: Medications: SEE CHART Meds past 24 hrs: Pretest Chest Pain: STRESS TEST Lexiscan Protocol Exercise Duration (min:sec): 02:[address] Depressions (mm): Angina Score: Danielson Score: Resting HR (bpm): 66 Peak HR (bpm): 96 Resting BP (mmHg): 158 / 72 Peak BP (mmHg): 141 / 64 MPHR: 140 Target HR: 119 % MPHR: 69 METS: 1.0 Total Dose: Peak Dose: Atropine: Double Product: 22465 BP Response: Stress Termination: PROTOCOL COMPLETE Stress Symptoms: NAUSEA/VOMITING Stress Summary: ECG ANALYSIS Resting ECG: Normal sinus rhythm with left bundle branch block Stress ECG: Inconclusive stress test CONCLUSIONS Inconclusive Lexiscan secondary to left bundle branch block Cardiolite portion of the stress test will be reported separately Dr. Ambrosio Sheppard MD (Electronically Signed) Final Date: 22 February 2022 12:35
[2022-02-22] MEDS: METOPROLOL TARTRATE 50 MG TAB PO SCH (13:25)
--- NOTE | 2022-02-22 13:33 | NM ---
EXAMINATION TYPE: NM stress lexiscan cardiolite DATE OF EXAM: 02/22/2022 COMPARISON: NONE HISTORY: Chest pain TECHNIQUE: After the intravenous administration of 9.25 mCi Tc 99m Sestamibi - Cardiolite resting SP ECT images acquired 55 minutes post injection. The patient received 0.4mg Lexiscan, 24 mCi Tc 99m Sestamibi - Stress images obtained 30 minutes post injection FINDINGS: Review of stress and rest SPECT images demonstrates reduced uptake involving the apex and inferior wa ll of the myocardium which appears worse on rest images relative to stress.. Gated analysis shows no rmal wall motion with an estimated left ventricular ejection fraction of 43 %. IMPRESSION: 1. Limited exam due to artifact demonstrates a fixed defect involving the apex and inferior wall with small area of stress-induced reversible ischemia not excluded involving the inferolateral myocardium correlate clinically. 2. Ejection fraction of 43%.
[2022-02-22 13:49] VITALS: BP 117/66; PULSE 72; TEMP 97
--- NOTE | 2022-02-22 16:13 | P.DS ---
Providers Date of admission: 02/21/22 06:41 Expected date of discharge: 02/22/22 Attending physician: David Connell MD Consults: 02/21/22 07:01 Consult Physician Urgent Consulting Provider: [facility] Consult Reason/Comments: acute chest pain, hx ascad Do you want consulting provider notified?: Yes Primary care physician: Dane Oliva MD Hospital Course: Discharge Diagnosis: Chest pain, acute coronary event ruled out. Troponins were trended 0.014 and less than 0.0122 draws. EKG normal sinus rhythm with previously known left bundle branch block. She was evaluated by cardiology and taken for Lexiscan stress test which revealed a reported fixed defect involving the apex and inferior wall with small area of reported stress-induced reversible ischemia with an EF of 43%. Cardiology reviewed report and stress test in detail and reported that this is an old/chronic finding seen on previous cardiac catheterization and cleared patient from cardiac perspective for outpatient follow-up in their office. History of CAD status post stent placement. Continue cardiac medication regimen with Lasix, metoprolol, isosorbide mononitrate, aspirin, lisinopril, and pravastatin. Chronic ITP, continue to follow up outpatient with hematology for long-term monitoring/management. At this time he may continue low-dose aspirin 81 mg daily. Chronic pancytopenia. Stable. Chronically elevated lipase, lipase elevated at 413. Stable. Hypertension, controlled with current antihypertensive medication regimen. Continue to monitor vital signs at home and continue daily medication regimen with metoprolol, isosorbide mononitrate, and lisinopril. Hyperlipidemia, continue daily medication regimen with pravastatin. History of cryptogenic cirrhosis with splenomegaly. Liver enzymes and total bili stable. Hospital Course: Patient is a very pleasant 81-year-old female with a past medical history of cryptogenic cirrhosis with splenomegaly, CAD status post stent placement, chronic ITP, chronic pancytopenia, hypertension, hyperlipidemia, chronic systolic heart failure, GERD, and iron deficiency anemia. She presented to the emergency department on 02/21/22 with a chief complaint of chest pain. Patient underwent full evaluation. CBC was consistent with previously known pancytopenia with WBC 3.2, hemoglobin 11.0, and platelet count of 55. CMP showing elevated total bili of 2.0 and AST of 39 again consistent with chronic elevation. Lipase 413 and is also chronically elevated and better than baseline levels at this time. Troponin 0.014. ProBNP 546. Magnesium was low at 1.5 and replaced. EKG showing normal sinus rhythm with a left bundle branch block which was present on previous EKGs. Patient was admitted under our services with consultation to cardiology. Troponins trended overnight resulting at 0.014 and less than 0.0122 draws. Repeat morning labs revealed resolution of previous hypomagnesemia and stable pancytopenia with WBC count of 3.36, hemoglobin 9.7, and platelet count of 53. Patient had full resolution of previously reported chest pain and currently denying any new complaints or concerns. She was evaluated by cardiology and taken for Lexiscan stress test which revealed a reported fixed defect involving the apex and inferior wall with small area of reported stress-induced reversible ischemia with an EF of 43%. Cardiology reviewed report and stress test in detail and reported that this is an old/chronic finding seen on previous cardiac catheterization and cleared patient from cardiac perspective for outpatient follow-up in their office. Patient is medically stable for discharge at this time. Patient to follow up outpatient with her PCP and cardiology as recommended. No medication changes were made during this hospitalization. Physical exam: Patient seen and examined at bedside. Vital signs reviewed and stable. General: Nontoxic, no distress and appears stated age. Derm: Skin warm and dry, normal coloration for ethnicity. Head: Atraumatic, normocephalic and symmetric. Eyes: EOMs intact, no lid lag, and anicteric sclera Mouth: no lip lesions, mucus membranes moist Cardiovascular: regular rate and rhythm with distant heart sounds. No murmur noted. Positive posterior tibial pulses bilaterally, and cap refill < 2 seconds. Lungs: Respirations even, regular, and unlabored on room air. Lungs CTA bilaterally, no rhonchi, no rales, no wheezing, and no accessory muscle usage. Abdominal: soft, nontender to palpation, no guarding, no appreciable organomegaly Ext: ROM intact. No gross muscle atrophy, no edema, no contractures Neuro: Speech clear, face symmetrical and CN II-XII grossly intact with no noted focal neuro deficits Psych: Alert and oriented to person, place, time, and situation. Appropriate and pleasant affect. A total of 34 minutes of time were spent preparing this complex discharge summary. Pt was discharged on 02/22/22 at 4:02 PM Patient Condition at Discharge: Stable Plan - Discharge Summary Discharge Rx Participant: No New Discharge Prescriptions: Continue Metoprolol Tartrate [Lopressor] 50 mg PO BID Isosorbide Mononitrate ER [Imdur] 60 mg PO DAILY Aspirin EC [Ecotrin Low Dose] 81 mg PO DAILY lisinopriL [Zestril] 15 mg PO DAILY Ferrous Sulfate [Iron (65 MG Elemental)] 325 mg PO DAILY Pravastatin Sodium 80 mg PO DAILY Furosemide [Lasix] 40 mg PO DAILY PRN PRN Reason: swelling Primidone [Mysoline] 50 mg PO HS Acetaminophen Tab [Tylenol] 650 mg PO Q8HR PRN tab PRN Reason: Fever And/ Or Pain Discharge Medication List Metoprolol Tartrate [Lopressor] 50 mg PO BID 03/09/15 [History] Isosorbide Mononitrate ER [Imdur] 60 mg PO DAILY 10/30/15 [History] Aspirin EC [Ecotrin Low Dose] 81 mg PO DAILY 09/12/18 [History] lisinopriL [Zestril] 15 mg PO DAILY 01/20/19 [History] Ferrous Sulfate [Iron (65 MG Elemental)] 325 mg PO DAILY 07/30/20 [History] Pravastatin Sodium 80 mg PO DAILY 07/30/20 [History] Primidone [Mysoline] 50 mg PO HS 07/30/20 [History] Furosemide [Lasix] 40 mg PO DAILY PRN 07/06/21 [History] Acetaminophen Tab [Tylenol] 650 mg PO Q8HR PRN tab 02/03/22 [Rx] Follow up Appointment(s)/Referral(s): [facility], [NON-STAFF] - 1 Week Helder Ibrahim MD [STAFF PHYSICIAN] - 1 Week Dane Oliva MD [Primary Care Provider] - 1-2 days Patient Instructions/Handouts: Chest Pain (DC) Activity/Diet/Wound Care/Special Instructions: Activity: As tolerated. Take breaks as needed. Diet: Heart healthy and carb consistent diet. Avoid salts, or foods with hidden salts such as canned or boxed foods and frozen dinners. Extra salt makes your heart work harder and traps the fluid in your body for longer. Special Instructions: Take all of your medications as directed and remember to keep all of your doctor's appointments and follow-up as needed. Thank you for allowing us to participate in your care, it was truly a pleasure having you for our patient!!! Discharge Disposition: HOME SELF-CARE
== END 2022-02-22 17:14 | disposition home or self-care (01) ==
LOC: EC 04:03 → SUPCPDRO 04:03 → 6NMEDSUR 06:41
PROVIDERS: ADMIT Internal Medicine; ATTEND Internal Medicine
DX: R07.89 Other chest pain (principal); M25.551 Pain in right hip; E83.42 Hypomagnesemia; I25.5 Ischemic cardiomyopathy; D61.818 Other pancytopenia; R74.8 Abnormal levels of other serum enzymes; G25.9 Extrapyramidal and movement disorder, unspecified; I70.0 Atherosclerosis of aorta; M85.80 Other specified disorders of bone density and structure, unspecified site; I25.10 Atherosclerotic heart disease of native coronary artery without angina pectoris; E78.5 Hyperlipidemia, unspecified; I44.7 Left bundle-branch block, unspecified; I25.2 Old myocardial infarction; K21.9 Gastro-esophageal reflux disease without esophagitis; K74.69 Other cirrhosis of liver; R16.1 Splenomegaly, not elsewhere classified; I11.0 Hypertensive heart disease with heart failure; I50.22 Chronic systolic (congestive) heart failure; D69.3 Immune thrombocytopenic purpura; Z79.899 Other long term (current) drug therapy; Z79.82 Long term (current) use of aspirin; Z88.0 Allergy status to penicillin; Z88.8 Allergy status to other drugs, medicaments and biological substances; Z88.5 Allergy status to narcotic agent; Z90.49 Acquired absence of other specified parts of digestive tract; Z95.5 Presence of coronary angioplasty implant and graft; Z90.710 Acquired absence of both cervix and uterus; Z87.891 Personal history of nicotine dependence; Z80.3 Family history of malignant neoplasm of breast; Z82.49 Family history of ischemic heart disease and other diseases of the circulatory system
CPT/HCPCS: 96365; 96366; 99285; 36415; 93005; 93017; 83880; 80053; 80048; 83690; 83735 ×2; 84484; 85025 ×2; 85610; 85730; 73502; 71046; 78452; G0378 ×2; A9500; J3475; J2785

== ENCOUNTER → 2022-06-14 | Outpatient (CLI) | payer MEDICARE | END | disposition home or self-care (01) | LOC: LABWHC1 15:14 | PROVIDERS: ATTEND Family Medicine | DX: K74.60 Unspecified cirrhosis of liver (principal) | CPT/HCPCS: 36415; 82140 ==

== ENCOUNTER → 2022-07-01 | Outpatient (CLI) | payer MEDICARE | END | disposition home or self-care (01) | LOC: LABWHC1 13:38 | PROVIDERS: ATTEND Family Medicine | DX: K74.60 Unspecified cirrhosis of liver (principal) | CPT/HCPCS: 36415; 82140 ==

== ENCOUNTER → 2022-07-28 | Outpatient (CLI) | payer MEDICARE ==
--- NOTE | 2022-07-28 12:42 | US ---
EXAMINATION TYPE: US liver DATE OF EXAM: 07/28/2022 COMPARISON: CT 01/31/2022, US 10/12/21 CLINICAL INDICATION: Female, 81 years old with history of K74.60 CIRRHOSIS OF LIVER; Cirrhosis. Lucy cystectomy. TECHNIQUE: Multiple sonographic images of the right upper quadrant are obtained. FINDINGS: EXAM MEASUREMENTS: Liver Length: 14.5 cm Gallbladder Wall: Surgically absent. CBD: 0.94 cm Right Kidney: 10.0 x 4.5 x 4.9 cm ARMATURE STRAIGHTENER NOTES: Limited due to overlying bowel gas. Pancreas: Not well seen. Liver: Appears very coarse. Hypoechoic area seen within the right lobe measurin.1 x 3.2 x 3.2 cm there is somewhat spiculated border and this lesion. Gallbladder: Surgically absent. Evidence for sonographic Collazo's sign: No CBD: Measures 0.94 cm post-cholecystectomy. Right Kidney: Hypoechoic area seen upper pole: 1.9 x 1.9 x 2.3 cm. Anechoic area seen lower pole: 1.4 x 1.3 x 1.1 cm. IMPRESSION: Coarsened echotexture to liver with hypoechoic area visualized with somewhat spicular borders measuri ng 4.1 cm. Further evaluation with multiphase MRI liver mass protocol is recommended to exclude under lying malignancy. Not clearly seen on 01/31/2022 CT.
== END | disposition home or self-care (01) ==
LOC: RADUSWWP 10:40
PROVIDERS: ATTEND Internal Medicine Gastroenterology
DX: K74.60 Unspecified cirrhosis of liver (principal); K76.89 Other specified diseases of liver; Z90.49 Acquired absence of other specified parts of digestive tract
CPT/HCPCS: 76705

== ENCOUNTER 2022-12-14 12:18 | Inpatient (IN) | payer MEDICARE ==
[2022-12-14 13:30] LABS: Anisocytosis Slight; Basophils % (A) 0 %; Eosinophils # (A) 0.1 k/uL (0-0.7); Eosinophils % (A) 2 %; HCT 25.9 % (34.0-46.0); Lymphocytes # (A) 0.2 k/uL (1.0-4.8); Lymphocytes % (A) 5 %; MCH 34.9 pg (25.0-35.0); MCHC 34.9 g/dL (31.0-37.0); MCV 99.8 fL (80.0-100.0); Macrocytosis Slight; Mean Platelet Volume 8.9; Monocytes # (A) 0.4 k/uL (0-1.0); Monocytes % (A) 9 %; Neutrophils # (A) 3.4 k/uL (1.3-7.7); Neutrophils % (A) 82 %; Poikilocytosis Moderate; RBC 2.59 m/uL (3.80-5.40); WBC 4.2 k/uL (3.8-10.6)
[2022-12-14 13:35] LABS: Platelet Count 63 k/uL (150-450)
[2022-12-14 13:37] LABS: INR 1.1 (<1.2); Partial Thromboplastin Time 26.6 sec (22.0-30.0); Prothrombin Time 11.5 sec (9.0-12.0)
[2022-12-14] MEDS ORDERED: MIDODRINE 5 MG TAB PO STA (13:40)
--- NOTE | 2022-12-14 13:40 | ED ---
Weakness HPI - General Chief complaint: Weakness Stated complaint: weakness Time Seen by Provider: 12/14/22 12:25 Source: patient, EMS Mode of arrival: EMS Limitations: no limitations - History of Present Illness Initial comments: 82-year-old female presents to the emergency department with weakness. is at bedside and provides a history. States the patient recently was got home from the hospital. Since she has been home she has developed a wet cough. thinks that she caught it from her grandson and daughter who were sick. Today he reports that the patient was extremely weak and he couldn't get her off the toilet. He seems extremely fatigued. He attempted to get her off the commode however was unable and therefore called EMS. He states that she has taken her medications as directed except for this morning. She is on lactulose for hepatic encephalopathy. He denies that she's had any fevers. No falls and she's been home. He states that he can't take care of her and she needs to go to rehab. No other alleviating, precipitating modifying factors - Related Data Home Medications Medication Instructions Recorded Confirmed Pravastatin Sodium 80 mg PO DAILY 07/30/20 12/14/22 Primidone [Mysoline] 50 mg PO BID 07/30/20 12/14/22 Furosemide [Lasix] 40 mg PO DAILY 12/03/22 12/14/22 Triamcinolone 0.1% Ointment 1 applic TOPICAL DAILY PRN 12/03/22 12/14/22 [Kenalog 0.1% Ointment] Previous Rx's Medication Instructions Recorded Lactulose [Cephulac] 20 gm PO TID #2700 ml 12/08/22 Aspirin 81 mg PO DAILY #30 tab 12/10/22 Metoprolol Succinate (ER) [Toprol 12.5 mg PO DAILY #30 tab 12/10/22 XL] Midodrine [ProAmatine] 5 mg PO AC-TID #90 tab 12/10/22 Allergies Allergy/AdvReac Type Severity Reaction Status Date / Time cephalexin monohydrate Allergy Rash/Hives/ Verified 12/14/22 14:23 [From Keflex] Swelling codeine Allergy Rash/Hives Verified 12/14/22 14:23 doxepin Allergy Rash/Hives Verified 12/14/22 14:23 meperidine HCl [From Demerol] Allergy Rash/Hives Verified 12/14/22 14:23 methylprednisolone Allergy Rash/Hives Verified 12/14/22 14:23 [From Medrol] Opioids - Morphine Analogues Allergy Rash/Hives Verified 12/14/22 14:23 Penicillins Allergy Swelling Verified 12/14/22 14:23 over entire body pentazocine lactate Allergy Rash/Hives-Stomach Verified 12/14/22 14:23 [From Talwin] Upset propoxyphene napsylate Allergy Rash/Hives- Verified 12/14/22 14:23 [From Darvocet-N] Itch tramadol Allergy Rash/Hives Verified 12/14/22 14:23 Review of Systems ROS Statement: Those systems with pertinent positive or pertinent negative responses have been documented in the HPI. ROS Other: All systems not noted in ROS Statement are negative. 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 Kan). 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, left hip repair with rods 09-15-2018, left femur surgery with rods Past Anesthesia/Blood Transfusion Reactions: No Reported Reaction Date of Last Stent Placement:: 1998 Past Psychological History: No Psychological Hx Reported Smoking Status: Former smoker Past Alcohol Use History: None Reported Past Drug Use History: None Reported - Past Family History Mother Family Medical History: Cancer Additional Family Medical History / Comment(s): Breast Ca Father Family Medical History: Myocardial Infarction ([place]) Additional Family Medical History / Comment(s): @ age 86 from [place] General Exam Limitations: altered mental status General appearance: lethargic Head exam: Present: atraumatic, normocephalic, normal inspection Eye exam: Present: normal appearance, PERRL, EOMI. Absent: scleral icterus, co njunctival injection, periorbital swelling ENT exam: Present: normal exam, mucous membranes dry Neck exam: Present: normal inspection. Absent: tenderness, meningismus, lymphadenopathy Respiratory exam: Present: rales, decreased breath sounds. Absent: respiratory distress, wheezes, rhonchi, stridor Cardiovascular Exam: Present: regular rate, normal rhythm, normal heart sounds. Absent: systolic murmur, diastolic murmur, rubs, gallop, clicks GI/Abdominal exam: Present: soft, normal bowel sounds. Absent: distended, tenderness, guarding, rebound, rigid Extremities exam: Present: normal inspection, full ROM, normal capillary refill. Absent: tenderness, pedal edema, joint swelling, calf tenderness Back exam: Present: normal inspection Neurological exam: Present: altered, CN II-XII intact Psychiatric exam: Present: flat affect Skin exam: Present: warm, dry, intact, normal color. Absent: rash Course Vital Signs 12/14/22 12/14/22 12/14/22 12:20 12:30 13:30 Temperature 98.6 F Pulse Rate 94 96 89 Respiratory 18 18 18 Rate Blood Pressure 101/41 101/41 97/46 O2 Sat by Pulse 97 98 99 Oximetry 12/14/22 12/14/22 12/14/22 14:00 14:30 15:00 Temperature Pulse Rate 87 86 88 Respiratory 18 18 19 Rate Blood Pressure 93/50 106/42 114/51 O2 Sat by Pulse 100 100 Oximetry 12/14/22 12/14/22 12/14/22 15:30 16:38 16:50 Temperature Pulse Rate 92 85 96 Respiratory 18 Rate Blood Pressure 114/51 O2 Sat by Pulse 97 Oximetry Medical Decision Making - Medical Decision Making Was pt. sent in by a medical professional or institution (, PA, SWEET GOODS MACHINE OPERATOR, urgent care, hospital, or correction...) When possible be specific @ -No Did you speak to anyone other than the patient for history (EMS, parent, family, police, friend...)? What history was obtained from this source @ -Spoke with the patient's Did you review nursing and triage notes (agree or disagree)? Why? @ -I reviewed and agree with nursing and triage notes Were old charts reviewed (outside hosp., previous admission, EMS record, old EKG, old radiological studies, urgent care reports/EKG's, correction records)? Report findings @ -I reviewed the patient's discharge summary from the Differential Diagnosis (chest pain, altered mental status, abdominal pain women, abdominal pain men, vaginal bleeding, weakness, fever, dyspnea, syncope, headache, dizziness, GI bleed, back pain, seizure, CVA, palpatations, mental hea lth, musculoskeletal)? @ -Differential Altered Mental Status: Hypoglycemia, DKA, hypercapnia, ETOH, overdose, CO poisoning, trauma, myxedema coma, HTN encephalopathy, infection, encephalitis, psychosis, intercranial hemorrhage, hepatic encephalopathy, meningitis, CVA, this is not meant to be an all-inclusive list EKG interpreted by me (3pts min.). @ -Yes and demonstrates sinus rhythm with a rate of 97. pr interval 188. QRS 162. QTC of 429. Left bundle branch block. Negative for sgarbossa criteria X-rays interpreted by me (1pt min.). @ -Yes and demonstrates possible pneumonia CT interpreted by me (1pt min.). @ -None done U/S interpreted by me (1pt. min.). @ -None done What testing was considered but not performed or refused? (CT, X-rays, U/S, labs)? Why? @ -None What meds were considered but not given or refused? Why? @ -None Did you discuss the management of the patient with other professionals (professionals i.e. , PA, SWEET GOODS MACHINE OPERATOR, lab, RT, psych nurse, neonatal social worker, aquarist, teacher, commercial account officer, case reviewer)? Give summary @ -Spoke with Dr. Henao for admission Was smoking cessation discussed for >3mins.? @ -No Was critical care preformed (if so, how long)? @ -No Were there social determinants of health that impacted care today? How? (Homelessness, low income, unemployed, alcoholism, drug addiction, transportation, low edu. Level, literacy, decrease access to med. care, intermediate, rehab)? @ -No Was there de-escalation of care discussed even if they declined (Discuss DNR or withdrawal of care, Hospice)? DNR status @ -No What co-morbidities impacted this encounter? (DM, HTN, Smoking, COPD, CAD, Cancer, CVA, ARF, Chemo, Hep., AIDS, mental health diagnosis, sleep apnea, morbid obesity)? @ -Cryptogenic cirrhosis Was patient admitted / discharged? Hospital course, mention meds given and route, prescriptions, significant lab abnormalities, going to OR and other pertinent info. @ -Upon arrival patient placed in room 19. Thorough history and physical exam was performed. IV is established and laboratory studies are conducted. Chest x-ray was performed. Ammonia was normal. Chest x-ray demonstrates pneumonia. Antibiotics are ordered as well as blood cultures and sputum culture. Recommended admission due to patient's lethargy. He was agreeable and states that she needs rehab as he cannot care for her. Patient agreeable to admission. Spoke with Dr. Henao who agreed to admit the patient Undiagnosed new problem with uncertain prognosis? @ -No Drug Therapy requiring intensive monitoring for toxicity (Heparin, Nitro, Insulin, Cardizem)? @ -No Were any procedures done? @ -No Diagnosis/symptom? @ -acute cough. Healthcare associated pneumonia Acute, or Chronic, or Acute on Chronic? @ -acute Uncomplicated (without systemic symptoms) or Complicated (systemic symptoms)? @ -complicated Side effects of treatment? @ -No Exacerbation, Progression, or Severe Exacerbation? @ -No Poses a threat to life or bodily function? How? (Chest pain, [place], [place], pneumonia, PE, COPD, DKA, ARF, appy, cholecystitis, CVA, Diverticulitis, Homicidal, Suicidal, threat to staff... and all critical care pts) @ -No - Lab Data Result diagrams: 12/14/22 12:30 12/14/22 12:30 Lab Results 12/14/22 12/14/22 12/14/22 Range/Units 12:30 12:30 12:30 WBC 4.2 (3.8-10.6) k/uL RBC 2.59 L (3.80-5.40) m/uL Hgb 9.0 L (11.4-16.0) gm/dL Hct 25.9 L (34.0-46.0) % MCV 99.8 (80.0-100.0) fL MCH 34.9 (25.0-35.0) pg MCHC 34.9 (31.0-37.0) g/dL RDW 17.0 H (11.5-15.5) % Plt Count 63 L (150-450) k/uL MPV 8.9 Neutrophils % 82 % Lymphocytes % 5 % Monocytes % 9 % Eosinophils % 2 % Basophils % 0 % Neutrophils # 3.4 (1.3-7.7) k/uL Lymphocytes # 0.2 L (1.0-4.8) k/uL Monocytes # 0.4 (0-1.0) k/uL Eosinophils # 0.1 (0-0.7) k/uL Basophils # 0.0 (0-0.2) k/uL Poikilocytosis Moderate Anisocytosis Slight Macrocytosis Slight PT 11.5 (9.0-12.0) sec INR 1.1 (<1.2) APTT 26.6 (22.0-30.0) sec Sodium 137 (137-145) mmol/L Potassium 4.3 (3.5-5.1) mmol/L Chloride 111 H (98-107) mmol/L Carbon Dioxide 18 L (22-30) mmol/L Anion Gap 8 mmol/L BUN 31 H (7-17) mg/dL Creatinine 1.04 (0.52-1.04) mg/dL Est GFR (CKD-EPI)AfAm 58 (>60 ml/min/1.73 sqM) Est GFR (CKD-EPI)NonAf 51 (>60 ml/min/1.73 sqM) Glucose 101 H (74-99) mg/dL Plasma Lactic Acid Vincent (0.7-2.0) mmol/L Calcium 8.0 L (8.4-10.2) mg/dL Phosphorus 3.4 (2.5-4.5) mg/dL Magnesium 1.5 L (1.6-2.3) mg/dL Total Bilirubin 1.5 H (0.2-1.3) mg/dL AST 33 (14-36) U/L ALT 23 (4-34) U/L Alkaline Phosphatase 110 (38-126) U/L Ammonia (<30) umol/L Troponin I (0.000-0.034) ng/mL NT-Pro-B Natriuret Pep 1470 pg/mL Total Protein 4.9 L (6.3-8.2) g/dL Albumin 2.4 L (3.5-5.0) g/dL Urine Color Urine Appearance (Clear) Urine pH (5.0-8.0) Ur Specific [place] (1.001-1.035) Urine Protein (Negative) Urine Glucose (UA) (Negative) Urine Ketones (Negative) Urine Blood (Negative) Urine Nitrite (Negative) Urine Bilirubin (Negative) Urine Urobilinogen (<2.0) mg/dL Ur Leukocyte Esterase (Negative) Urine RBC (0-5) /hpf Urine WBC (0-5) /hpf Ur Squamous Epith Cells (0-4) /hpf Hyaline Casts (0-2) /lpf Urine Mucus (None) /hpf Influenza Type A (PCR) (Not Detectd) Influenza Type B (PCR) (Not Detectd) RSV (PCR) (Not Detectd) SARS-CoV-2 (PCR) (Not Detectd) 12/14/22 12/14/22 12/14/22 Range/Units 12:30 12:30 12:30 WBC (3.8-10.6) k/uL RBC (3.80-5.40) m/uL Hgb (11.4-16.0) gm/dL Hct (34.0-46.0) % MCV (80.0-100.0) fL MCH (25.0-35.0) pg MCHC (31.0-37.0) g/dL RDW (11.5-15.5) % Plt Count (150-450) k/uL MPV Neutrophils % % Lymphocytes % % Monocytes % % Eosinophils % % Basophils % % Neutrophils # (1.3-7.7) k/uL Lymphocytes # (1.0-4.8) k/uL Monocytes # (0-1.0) k/uL Eosinophils # (0-0.7) k/uL Basophils # (0-0.2) k/uL Poikilocytosis Anisocytosis Macrocytosis PT (9.0-12.0) sec INR (<1.2) APTT (22.0-30.0) sec Sodium (137-145) mmol/L Potassium (3.5-5.1) mmol/L Chloride (98-107) mmol/L Carbon Dioxide (22-30) mmol/L Anion Gap mmol/L BUN (7-17) mg/dL Creatinine (0.52-1.04) mg/dL Est GFR (CKD-EPI)AfAm (>60 ml/min/1.73 sqM) Est GFR (CKD-EPI)NonAf (>60 ml/min/1.73 sqM) Glucose (74-99) mg/dL Plasma Lactic Acid Vincent 1.3 (0.7-2.0) mmol/L Calcium (8.4-10.2) mg/dL Phosphorus (2.5-4.5) mg/dL Magnesium (1.6-2.3) mg/dL Total Bilirubin (0.2-1.3) mg/dL AST (14-36) U/L ALT (4-34) U/L Alkaline Phosphatase (38-126) U/L Ammonia 20 (<30) umol/L Troponin I 0.018 (0.000-0.034) ng/mL NT-Pro-B Natriuret Pep pg/mL Total Protein (6.3-8.2) g/dL Albumin (3.5-5.0) g/dL Urine Color Urine Appearance (Clear) Urine pH (5.0-8.0) Ur Specific [place] (1.001-1.035) Urine Protein (Negative) Urine Glucose (UA) (Negative) Urine Ketones (Negative) Urine Blood (Negative) Urine Nitrite (Negative) Urine Bilirubin (Negative) Urine Urobilinogen (<2.0) mg/dL Ur Leukocyte Esterase (Negative) Urine RBC (0-5) /hpf Urine WBC (0-5) /hpf Ur Squamous Epith Cells (0-4) /hpf Hyaline Casts (0-2) /lpf Urine Mucus (None) /hpf Influenza Type A (PCR) Not Detected (Not Detectd) Influenza Type B (PCR) Not Detected (Not Detectd) RSV (PCR) Not Detected (Not Detectd) SARS-CoV-2 (PCR) Not Detected (Not Detectd) 12/14/22 Range/Units 12:57 WBC (3.8-10.6) k/uL RBC (3.80-5.40) m/uL Hgb (11.4-16.0) gm/dL Hct (34.0-46.0) % MCV (80.0-100.0) fL MCH (25.0-35.0) pg MCHC (31.0-37.0) g/dL RDW (11.5-15.5) % Plt Count (150-450) k/uL MPV Neutrophils % % Lymphocytes % % Monocytes % % Eosinophils % % Basophils % % Neutrophils # (1.3-7.7) k/uL Lymphocytes # (1.0-4.8) k/uL Monocytes # (0-1.0) k/uL Eosinophils # (0-0.7) k/uL Basophils # (0-0.2) k/uL Poikilocytosis Anisocytosis Macrocytosis PT (9.0-12.0) sec INR (<1.2) APTT (22.0-30.0) sec Sodium (137-145) mmol/L Potassium (3.5-5.1) mmol/L Chloride (98-107) mmol/L Carbon Dioxide (22-30) mmol/L Anion Gap mmol/L BUN (7-17) mg/dL Creatinine (0.52-1.04) mg/dL Est GFR (CKD-EPI)AfAm (>60 ml/min/1.73 sqM) Est GFR (CKD-EPI)NonAf (>60 ml/min/1.73 sqM) Glucose (74-99) mg/dL Plasma Lactic Acid Vincent (0.7-2.0) mmol/L Calcium (8.4-10.2) mg/dL Phosphorus (2.5-4.5) mg/dL Magnesium (1.6-2.3) mg/dL Total Bilirubin (0.2-1.3) mg/dL AST (14-36) U/L ALT (4-34) U/L Alkaline Phosphatase (38-126) U/L Ammonia (<30) umol/L Troponin I (0.000-0.034) ng/mL NT-Pro-B Natriuret Pep pg/mL Total Protein (6.3-8.2) g/dL Albumin (3.5-5.0) g/dL Urine Color Yellow Urine Appearance Clear (Clear) Urine pH 5.0 (5.0-8.0) Ur Specific [place] 1.013 (1.001-1.035) Urine Protein Negative (Negative) Urine Glucose (UA) Negative (Negative) Urine Ketones Negative (Negative) Urine Blood Negative (Negative) Urine Nitrite Negative (Negative) Urine Bilirubin Negative (Negative) Urine Urobilinogen <2.0 (<2.0) mg/dL Ur Leukocyte Esterase Trace H (Negative) Urine RBC 1 (0-5) /hpf Urine WBC 1 (0-5) /hpf Ur Squamous Epith Cells 1 (0-4) /hpf Hyaline Casts 1 (0-2) /lpf Urine Mucus Rare H (None) /hpf Influenza Type A (PCR) (Not Detectd) Influenza Type B (PCR) (Not Detectd) RSV (PCR) (Not Detectd) SARS-CoV-2 (PCR) (Not Detectd) Disposition Clinical Impression: Thrombocytopenia, Leg edema, Generalized weakness, Chronic ITP (idiopathic thrombocytopenia), HCAP (healthcare-associated pneumonia) Disposition: ADMITTED IP TO THIS [facility] Condition: Stable Is patient prescribed a controlled substance at d/c from ED?: No Time of Disposition: 15:11 Decision to Admit Reason: Admit from EC Decision Date: 12/14/22 Decision Time: 15:11
[2022-12-14 13:43] LABS: Lactic Acid, Venous 1.3 mmol/L (0.7-2.0)
[2022-12-14 13:45] LABS: ALT 23 U/L (4-34); AST 33 U/L (14-36); African American GFR (CKD) 58 (>60 ml/min/1.73 sqM); Albumin 2.4 g/dL (3.5-5.0); Alkaline Phosphatase 110 U/L (38-126); Anion Gap 8 mmol/L; Blood Urea Nitrogen 31 mg/dL (7-17); Carbon Dioxide 18 mmol/L (22-30); Chloride 111 mmol/L (98-107); Glucose 101 mg/dL (74-99); Magnesium 1.5 mg/dL (1.6-2.3); Non-African American GFR(CKD) 51 (>60 ml/min/1.73 sqM); Phosphorus 3.4 mg/dL (2.5-4.5); Potassium 4.3 mmol/L (3.5-5.1); Sodium 137 mmol/L (137-145); Total Bilirubin 1.5 mg/dL (0.2-1.3); Total Protein 4.9 g/dL (6.3-8.2)
[2022-12-14 13:51] LABS: NT-Pro-B-Type Natriuretic Pept 1470 pg/mL
--- NOTE | 2022-12-14 15:12 | XR ---
EXAMINATION TYPE: XR chest 2V DATE OF EXAM: 12/14/2022 COMPARISON: 12/07/2022 HISTORY: Shortness of breath TECHNIQUE: Frontal and lateral views of the chest are obtained. FINDINGS: Scattered senescent parenchymal changes noted. Hyperinflation compatible with COPD. Reticulonodular infiltrates are seen bilaterally with more focal component right lower lobe. Correlat e for developing pneumonia. Heart size is stable. Mediastinal structures are stable and grossly unremarkable. No evidence for hilar prominence. Degenerative changes dorsal spine. IMPRESSION: 1. Reticulonodular infiltrates are seen bilaterally with more focal component right lower lobe. Corre late for developing pneumonia.
--- NOTE | 2022-12-14 15:14 | XR ---
EXAMINATION TYPE: XR Hip RT and AP Pelvis DATE OF EXAM: 12/14/2022 COMPARISON: 02/21/2022 HISTORY: Pain TECHNIQUE: A single AP view of the pelvis is obtained. Two views of the right hip are obtained. FINDINGS: Diffuse osteopenia with bilateral hip arthropathy. There is chondrocalcinosis on the right. Postsurgical change in the left. Mild SI joint arthropathy. Hypertrophic degenerative change of the spine. IMPRESSION: 1. Moderate severe right hip arthropathy correlate for femoral acetabular impingement. 2. Diffuse osteopenia with no definite acute fracture. IF there is a history of trauma and the patien t is unable to weight-bear or there is high clinical concern for occult fracture then correlate with CT scan.
[2022-12-14] MEDS ORDERED: NALOXONE 0.4 MG/ML 1 ML VIAL IV PRN (15:18)
[2022-12-14] MEDS ORDERED: PNEUMONIA PROTOCOL UTILIZED 1 EACH MISC PO PRN (15:20)
[2022-12-14] MEDS ORDERED: AZITHROMYCIN 500 MG in SODIUM CHLORIDE 0.9% 250 ML IVPB STA (15:20)
[2022-12-14] MEDS ORDERED: LEVOFLOXACIN 750MG-D5W PMX 750 MG in DEXTROSE/WATER 1 150ML.BAG IVPB STA (15:24)
[2022-12-14] MEDS ORDERED: ALBUTEROL NEBULIZED 2.5 MG/3 ML INHALATION PRN (15:24)
[2022-12-14] MEDS: MIDODRINE 5 MG TAB PO SCH (17:12)
[2022-12-14] MEDS ORDERED: FUROSEMIDE 40 MG TAB PO SCH (17:15)
--- NOTE | 2022-12-14 17:17 | P.HPIM ---
History of Present Illness H&P Date: 12/14/22 Patient is a 82-year-old female with a PMH of cirrhosis, thrombocytopenia, hypertension, hyperlipidemia, and GERD who presented to the emergency room for generalized weakness and difficulty walking. It seems that family cannot take care of her at home. She reports right leg pain but she is unable to decribed her pain. It seems that she has been experiencing this patient > 1 year when reviewing previous documentation. She was previously advised to go to SNF on discharge but refused and family decided to take her home. She is quite somnelent and majority of information is obtained from chart review and discussion with the ED provider. During her previous admission, patient was hypotensive, her Imdur and Lisinopril was discontinued but Metoprolol (lowered dose) and Lasix was continued. In the ED, her vital signs were stable. CBC showed hemoglobin of 9 and platelet count 63. Coagulation panel within normal limits. CMP showed chloride of 111, bicarb of 18, BUN 31, glucose 101, calcium 8, total bilirubin 1.5, albumin 2.4. BNP 1470. Troponin 0.018. Ammonia 20. Magnesium 1.5. EKG showed sinus rhythm with sinus arrhythmia and LBBB. CXR showed pulmonary vascular congesion and question of developing RLL PNA. Hip XR showed moderate severe right hip arthropathy correlate for femoral acetabular impingement. Patient is admitted for further management and workup. Pertinent positives and negatives as discussed in HPI, a complete review of systems was performed and all other systems are negative. General: non toxic, no distress, appears at stated age, somnolent Derm: warm, dry Head: atraumatic, normocephalic, symmetric Eyes: EOMI, no lid lag, anicteric sclera Mouth: no lip lesion, mucus membranes moist Cardiovascular: S1S2 reg, no murmur Lungs: Decreased breath sounds bilateral, no rhonchi, no rales , no accessory muscle use Abdominal: soft, nontender to palpation, no guarding, no appreciable organomegaly Ext: no gross muscle atrophy, 2+ pitting BL LE edema, no contractures, limited ROM of the RLE due to pain Neuro: no focal neuro deficits Psych: Alert, oriented, appropriate affect Acute on chronic systolic CHF exacerbation with concerns of developing pneumonia Prerenal azotemia Hypomagnesemia Liver cirrhosis Bilateral lower extremity pain, swelling, and generalized weakness 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 Patient meets a high level of care. Acute on chronic systolic CHF exacerbation with concerns of developing pneumonia: Start Lasix 40 mg IV BID. Strict intake and outtake. Daily weights. Telemetry monitoring. Recent echocardiogram completed showing EF 40-45%. Doubt PNA, given one dose of Abx in the ED, obtain procal. Prerenal azotemia Hypomagnesemia: 2g IV Mag sulfate ordered. Bilateral lower extremity pain, swelling, and generalized weakness: PT and OT consult. Liver cirrhosis: Lactulose 20 g PO TID. Avoid EtOH. 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 Pancytopenia secondary to advanced liver cirrhosis: Stable. History of CAD status post stenting: Patient not on ASA due to thrombocytopenia. Metoprolol 12.5 mg PO QD. Pravastatin 80 mg PO QD. Hyperlipidemia: Pravastatin as above. I have reviewed the following property consultant notes: I have reviewed the results of the following tests: CBC, CMP, Coag panel, BNP, Trop, Ammonia, Mag, CXR, Hip XR I have ordered the following tests: Procal. CBC and BMP tomorrow morning. BCx. Sputum Cx. Legionella. CXR. I have discussed the care of this patient with the following independent historian: I have independently interpreted the following test below: EKG as above. I have discussed the management of this patient with the following physician: Discussed with Dr. Magallon. 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 Kna). 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, left hip repair with rods 09-15-2018, left femur surgery with rods Past Anesthesia/Blood Transfusion Reactions: No Reported Reaction Date of Last Stent Placement:: 1998 Past Psychological History: No Psychological Hx Reported Smoking Status: Former smoker Past Alcohol Use History: None Reported Past Drug Use History: None Reported - Past Family History Mother Family Medical History: Cancer Additional Family Medical History / Comment(s): Breast Ca Father Family Medical History: Myocardial Infarction ([place]) Additional Family Medical History / Comment(s): @ age 86 from [place] Medications and Allergies Home Medications Medication Instructions Recorded Confirmed Type Pravastatin Sodium 80 mg PO DAILY 07/30/20 12/14/22 History Primidone [Mysoline] 50 mg PO BID 07/30/20 12/14/22 History Furosemide [Lasix] 40 mg PO DAILY 12/03/22 12/14/22 History Triamcinolone 0.1% Ointment 1 applic TOPICAL DAILY PRN 12/03/22 12/14/22 History [Kenalog 0.1% Ointment] Lactulose [Cephulac] 20 gm PO TID #2700 ml 12/08/22 12/14/22 Rx Aspirin 81 mg PO DAILY #30 tab 12/10/22 12/14/22 Rx Metoprolol Succinate (ER) [Toprol 12.5 mg PO DAILY #30 tab 12/10/22 12/14/22 Rx XL] Midodrine [ProAmatine] 5 mg PO AC-TID #90 tab 12/10/22 12/14/22 Rx Allergies Allergy/AdvReac Type Severity Reaction Status Date / Time cephalexin monohydrate Allergy Rash/Hives/ Verified 12/14/22 14:23 [From Keflex] Swelling codeine Allergy Rash/Hives Verified 12/14/22 14:23 doxepin Allergy Rash/Hives Verified 12/14/22 14:23 meperidine HCl [From Demerol] Allergy Rash/Hives Verified 12/14/22 14:23 methylprednisolone Allergy Rash/Hives Verified 12/14/22 14:23 [From Medrol] Opioids - Morphine Analogues Allergy Rash/Hives Verified 12/14/22 14:23 Penicillins Allergy Swelling Verified 12/14/22 14:23 over entire body pentazocine lactate Allergy Rash/Hives-Stomach Verified 12/14/22 14:23 [From Talwin] Upset propoxyphene napsylate Allergy Rash/Hives- Verified 12/14/22 14:23 [From Darvocet-N] Itch tramadol Allergy Rash/Hives Verified 12/14/22 14:23 Physical Exam Vitals: Vital Signs Temp Pulse Resp BP Pulse Ox 12/14/22 16:50 96 12/14/22 16:38 85 12/14/22 15:30 92 18 114/51 97 12/14/22 15:00 88 19 114/51 12/14/22 14:30 86 18 106/42 100 12/14/22 14:00 87 18 93/50 100 12/14/22 13:30 89 18 97/46 99 12/14/22 12:30 96 18 101/41 98 12/14/22 12:20 98.6 F 94 18 101/41 97 Intake and Output 12/14/22 12/14/22 12/14/22 06:59 14:59 22:59 Other: Weight 62.142 kg Results CBC & Chem 7: 12/14/22 12:30 12/14/22 12:30 Labs: Abnormal Lab Results - Last 24 Hours (Table) 12/14/22 12/14/22 Range/Units 12:30 12:30 RBC 2.59 L (3.80-5.40) m/uL Hgb 9.0 L (11.4-16.0) gm/dL Hct 25.9 L (34.0-46.0) % RDW 17.0 H (11.5-15.5) % Plt Count 63 L (150-450) k/uL Lymphocytes # 0.2 L (1.0-4.8) k/uL Chloride 111 H (98-107) mmol/L Carbon Dioxide 18 L (22-30) mmol/L BUN 31 H (7-17) mg/dL Glucose 101 H (74-99) mg/dL Calcium 8.0 L (8.4-10.2) mg/dL Magnesium 1.5 L (1.6-2.3) mg/dL Total Bilirubin 1.5 H (0.2-1.3) mg/dL Total Protein 4.9 L (6.3-8.2) g/dL Albumin 2.4 L (3.5-5.0) g/dL
[2022-12-14 17:18] LABS: Appearance,Urine Clear (Clear); Bilirubin,Urine Negative (Negative); Blood,Urine Negative (Negative); Color,Urine Yellow; Glucose,Urine (UA) Negative (Negative); Hyaline Casts,Urine 1 /lpf (0-2); Ketones,Urine Negative (Negative); Leukocyte Esterase,Urine Trace (Negative); Mucus,Urine Rare /hpf; Nitrite,Urine Negative (Negative); Protein,Urine Negative (Negative); RBC,Urine 1 /hpf (0-5); Specific Gravity,Urine 1.013 (1.001-1.035); Squamous Epithelial Cell,Urine 1 /hpf (0-4); Urobilinogen,Urine <2.0 mg/dL (<2.0); WBC,Urine 1 /hpf (0-5)
[2022-12-14] MEDS: MAGNESIUM SULFATE-D5W PMX 1 GM in DEXTROSE/WATER 1 100ML.BAG IVPB SCH ×2 (17:18→21:16)
[2022-12-14] MEDS: LACTULOSE 20 GM/30 ML CUP PO SCH (21:27)
[2022-12-14] MEDS: FUROSEMIDE 10 MG/ML 4 ML VIAL IV SCH (21:27)
[2022-12-14] MEDS: guaiFENesin SYRUP 100MG/5ML 200 MG/10 ML CUP PO PRN (21:27)
[2022-12-14] MEDS: PRIMIDONE 50 MG TAB PO SCH (21:28)
[2022-12-14 23:25] LABS: Glucose,Whole Blood 116 mg/dL (70-110)
[2022-12-14] MEDS ORDERED: MAGNESIUM SULFATE-D5W PMX 1 GM in DEXTROSE/WATER 1 100ML.BAG IVPB ONE (23:31)
[2022-12-15] MEDS: ACETAMINOPHEN TAB 325 MG TAB PO PRN (01:57)
[2022-12-15] MEDS: PRAVASTATIN SODIUM 80 MG TAB PO SCH (08:29)
[2022-12-15] MEDS: MIDODRINE 5 MG TAB PO SCH ×3 (08:29→17:42)
[2022-12-15] MEDS: PRIMIDONE 50 MG TAB PO SCH ×2 (08:30→21:48)
[2022-12-15] MEDS: LACTULOSE 20 GM/30 ML CUP PO SCH ×3 (08:30→21:43)
[2022-12-15] MEDS: ASPIRIN 81 MG PO SCH (08:31)
--- NOTE | 2022-12-15 08:51 | XR ---
EXAMINATION TYPE: XR chest 2V DATE OF EXAM: 12/15/2022 COMPARISON: 12/14/2022 TECHNIQUE: PA and lateral views submitted. HISTORY: Cough FINDINGS: Limited inspiration with subsegmental changes. Diffuse osteopenia with arthropathy of the shoulders. No pneumothorax. Biapical pleural thickening. Atherosclerotic change aorta. IMPRESSION: 1. Limited inspiration with bibasilar subsegmental atelectasis\infiltrate stable. Interstitial pneumo nitis in the differential diagnosis stable
[2022-12-15 09:00] LABS: BUN/Creat Ratio 23.83 Ratio (12.00-20.00); Blood Urea Nitrogen 28.6 mg/dL (9.0-27.0); Carbon Dioxide 19.4 mmol/L (21.6-31.8); Chloride 107 mmol/L (96-109); Glucose 75 mg/dL (70-110); Potassium 4.3 mmol/L (3.5-5.5); Sodium 136 mmol/L (135-145)
[2022-12-15] MEDS ORDERED: AZITHROMYCIN 500 MG in SODIUM CHLORIDE 0.9% 250 ML IVPB SCH (09:00)
[2022-12-15 09:15] LABS: Basophils # (A) 0.02 X 10*3/uL (0.00-0.10); Basophils % (A) 0.6 %; Eosinophils # (A) 0.05 X 10*3/uL (0.04-0.35); Eosinophils % (A) 1.5 %; HCT 21.8 % (37.2-46.3); HGB 7.7 d/dL (12.0-15.0); Lymphocytes # (A) 0.44 X 10*3/uL (0.90-5.00); Lymphocytes % (A) 13.4 %; MCH 34.7 pg (27.0-32.0); MCHC 35.3 d/dL (32.0-37.0); MCV 98.2 FL (80.0-97.0); Mean Platelet Volume 10.2 FL (9.5-12.2); Monocytes # (A) 0.73 X 10*3/uL (0.20-1.00); Monocytes % (A) 22.3 %; NRBC Per 100 WBC 0 X 10*3/uL (0.00-0.01); Platelet Count 52 X 10*3/uL (140-440); RBC 2.22 X 10*6/uL (4.10-5.20); RDW 17.9 % (11.5-14.5); WBC 3.28 X 10*3/uL (4.50-10.00)
[2022-12-15] MEDS: METOPROLOL SUCCINATE (ER) 25 MG TAB.ER.24H PO SCH (09:44)
[2022-12-15] MEDS: FUROSEMIDE 10 MG/ML 4 ML VIAL IV SCH ×2 (09:45→21:43)
[2022-12-15] MEDS: FLUTICASONE 50MCG/SPRAY NASAL 16GM EA NOSTRIL SCH (10:19)
[2022-12-15] MEDS: RIFAXIMIN 550 MG TABLET PO SCH ×2 (10:19→21:43)
[2022-12-15] MEDS: LORATADINE 10 MG TAB PO SCH (10:19)
[2022-12-15 11:57] VITALS: BMI 35.4
[2022-12-15] MEDS: guaiFENesin SYRUP 100MG/5ML 200 MG/10 ML CUP PO PRN ×2 (14:20→19:31)
--- NOTE | 2022-12-15 16:47 | P.PN ---
Subjective Progress Note Date: 12/15/22 (delayed charting seen at 0845) Patient is a 82-year-old female with a cirrhosis and recent hepatic encephalopathy, thrombocytopenia, hypertension, hyperlipidemia, and GERD who presented to the emergency room for generalized weakness and difficulty walkingPatient was recnetly discharged on 12/10/22 after a hospital stay for hepatic encephalopathy complicated by hypotension, her Imdur and Lisinopril was discontinued but Metoprolol (lowered dose) and Lasix was continued. In the ED, her vital signs were stable. CBC showed hemoglobin of 9 and platelet count 63. Coagulation panel within normal limits. CMP showed chloride of 111, bicarb of 18, BUN 31, glucose 101, calcium 8, total bilirubin 1.5, albumin 2.4. BNP 1470. Troponin 0.018. Ammonia 20. Magnesium 1.5. EKG showed sinus rhythm with sinus arrhythmia and LBBB. CXR showed pulmonary vascular congestion and question of developing RLL PNA. Hip XR showed moderate severe right hip arthropathy correlate for femoral acetabular impingement. Patient was admitted for further management and workup, she was started on IV lasix. Patient seen and examined at bedside. She states her breathing is somewhat better, can she continues to have a nonproductive cough and some post nasal drip. No other complaints currently. Her breathing is somewhat better than yesterday but still short of the normal. Vital signs reviewed General: nontoxic, no distress, appears at stated age Cardiovascular: S1S2 reg, no murmur, positive posterior tibial pulse bilateral, Lungs: Coarse breath sounds bilateral , no accessory muscle use Abdominal: soft, nontender to palpation, no guarding, no appreciable organomegaly Ext: no gross muscle atrophy, 2+ edema b/l lower extremities, no contractures Neuro: CN II-XI grossly intact, no focal neuro deficits Psych: Alert, oriented, appropriate affect Assessment/Plan: Acute Exacerbation of systolic congestive heart failure, last known ejection fraction 40% Prerenal azotemia Hypomagnesemia -Lasix 40 mg IV every 12 hours, add Aldactone 12.5 mg daily -Pravachol 80 mg daily, metoprolol 12.5 mg daily (hold for systolic blood pressure less than 100), aspirin 81 mg daily -Patient has required Midodrine 5 mg 3 times daily to maintain her blood pressures Cirrhosis Pancytopenia secondary to advanced cirrhosis -Continue with lactulose 20 mg 3 times daily, rifaximin 550 mg twice daily Generalized weakness -PT/OT/fall precautions Chronic Coronary artery disease Dyslipidemia Imaging: Chest x-ray is reviewed by myself on 12/15 shows increased interstitial markings consistent with fluid overload Data Review: Labs reviewed included CBC, basic metabolic profile which were significant for white blood cell count 3.28, hemoglobin 7.7, platelets of 50 to, carbon dioxide 19.4, creatinine 1.2 DVT prophylaxis: SCDs Discussed with: Case Management Anticipated discharge date: A.m. Anticipated discharge place: [facility] This dictation was prepared using [employer] voice recognition software. Though every attempt is made to correct errors during dictation some may still exist. Objective - Vital Signs Vital signs: Vital Signs Temp 98.4 F 12/15/22 12:53 Pulse 71 12/15/22 12:53 Resp 16 12/15/22 12:53 BP 96/59 12/15/22 12:53 Pulse Ox 99 12/15/22 12:53 FiO2 Intake & Output 12/14/22 12/15/22 12/15/22 18:59 06:59 18:59 Intake Total 944 Output Total 1000 1125 Balance -56 -1125 Weight 62.142 kg 85 kg 85 kg Intake: Intake, IV Titration 200 Amount Magnesium Sulfate-D5w Pmx 200 1 gm In Dextrose/Water 1 100ml.bag @ 100 mls/hr IVPB ONCE ONE Rx#: [id number] Oral 744 Output: Urine 1000 1125 Other: Voiding Method Indwelling Catheter Indwelling Catheter - Labs CBC & Chem 7: 12/15/22 04:55 12/15/22 04:55 Labs: Abnormal Lab Results - Last 24 Hours (Table) 12/14/22 12/14/22 12/14/22 Range/Units 12:30 12:57 23:16 WBC (4.50-10.00) X 10*3/uL RBC (4.10-5.20) X 10*6/uL Hgb (12.0-15.0) d/dL Hct (37.2-46.3) % MCV (80.0-97.0) FL MCH (27.0-32.0) pg RDW (11.5-14.5) % Plt Count (140-440) X 10*3/uL Lymphocytes # (0.90-5.00) X 10*3/uL Carbon Dioxide (21.6-31.8) mmol/L BUN (9.0-27.0) mg/dL Est GFR (CKD-EPI) (>=60) BUN/Creatinine Ratio (12.00-20.00) Ratio POC Glucose (mg/dL) 116 H (70-110) mg/dL Calcium (8.7-10.3) mg/dL Procalcitonin 0.20 H (0.02-0.09) ng/mL Ur Leukocyte Esterase Trace H (Negative) Urine Mucus Rare H (None) /hpf 12/15/22 12/15/22 Range/Units 04:55 04:55 WBC 3.28 L (4.50-10.00) X 10*3/uL RBC 2.22 L (4.10-5.20) X 10*6/uL Hgb 7.7 L (12.0-15.0) d/dL Hct 21.8 L (37.2-46.3) % MCV 98.2 H (80.0-97.0) FL MCH 34.7 H (27.0-32.0) pg RDW 17.9 H (11.5-14.5) % Plt Count 52 L (140-440) X 10*3/uL Lymphocytes # 0.44 L (0.90-5.00) X 10*3/uL Carbon Dioxide 19.4 L (21.6-31.8) mmol/L BUN 28.6 H (9.0-27.0) mg/dL Est GFR (CKD-EPI) 45 L (>=60) BUN/Creatinine Ratio 23.83 H (12.00-20.00) Ratio POC Glucose (mg/dL) (70-110) mg/dL Calcium 8.0 L (8.7-10.3) mg/dL Procalcitonin (0.02-0.09) ng/mL Ur Leukocyte Esterase (Negative) Urine Mucus (None) /hpf
[2022-12-16] MEDS: guaiFENesin SYRUP 100MG/5ML 200 MG/10 ML CUP PO PRN ×2 (01:59→11:36)
[2022-12-16 06:16] LABS: Anisocytosis Slight; HCT 24.4 % (34.0-46.0); HGB 8.8 gm/dL (11.4-16.0); Hyperchromasia Slight; MCH 35.5 pg (25.0-35.0); MCV 98.7 fL (80.0-100.0); Macrocytosis Slight; Mean Platelet Volume 8.9; Poikilocytosis Moderate; RBC 2.48 m/uL (3.80-5.40); RDW 17.1 % (11.5-15.5); WBC 3.8 k/uL (3.8-10.6)
[2022-12-16 06:28] LABS: ALT 21 U/L (4-34); AST 36 U/L (14-36); African American GFR (CKD) 58 (>60 ml/min/1.73 sqM); Albumin 2.2 g/dL (3.5-5.0); Albumin/Globulin Ratio 0.9; Alkaline Phosphatase 114 U/L (38-126); Anion Gap 5 mmol/L; Blood Urea Nitrogen 32 mg/dL (7-17); Calcium 8.1 mg/dL (8.4-10.2); Carbon Dioxide 23 mmol/L (22-30); Chloride 107 mmol/L (98-107); Globulin 2.4 g/dL; Glucose 82 mg/dL (74-99); Magnesium 1.5 mg/dL (1.6-2.3); Non-African American GFR(CKD) 50 (>60 ml/min/1.73 sqM); Potassium 3.7 mmol/L (3.5-5.1); Sodium 135 mmol/L (137-145); Total Bilirubin 1.1 mg/dL (0.2-1.3); Total Protein 4.6 g/dL (6.3-8.2)
[2022-12-16 06:43] LABS: Platelet Count 59 k/uL (150-450)
[2022-12-16 07:16] VITALS: RESP 16
[2022-12-16] MEDS: FLUTICASONE 50MCG/SPRAY NASAL 16GM EA NOSTRIL SCH (08:10)
[2022-12-16] MEDS: FUROSEMIDE 10 MG/ML 4 ML VIAL IV SCH (08:10)
[2022-12-16] MEDS: METOPROLOL SUCCINATE (ER) 25 MG TAB.ER.24H PO SCH (08:10)
[2022-12-16] MEDS: LORATADINE 10 MG TAB PO SCH (08:11)
[2022-12-16] MEDS: LACTULOSE 20 GM/30 ML CUP PO SCH (08:11)
[2022-12-16] MEDS: ASPIRIN 81 MG PO SCH (08:11)
[2022-12-16] MEDS: RIFAXIMIN 550 MG TABLET PO SCH (08:12)
[2022-12-16] MEDS: PRIMIDONE 50 MG TAB PO SCH (08:12)
[2022-12-16] MEDS: PRAVASTATIN SODIUM 80 MG TAB PO SCH (08:13)
[2022-12-16] MEDS: MIDODRINE 5 MG TAB PO SCH ×2 (08:26→11:22)
[2022-12-16] MEDS: MAGNESIUM SULFATE-D5W PMX 1 GM in DEXTROSE/WATER 1 100ML.BAG IVPB SCH ×4 (08:26→14:46)
[2022-12-16] MEDS ORDERED: predniSONE 10 MG TAB PO STA (09:28)
--- NOTE | 2022-12-16 14:50 | P.DS ---
Providers Date of admission: 12/14/22 15:18 Expected date of discharge: 12/16/22 Attending physician: Nica Cano MD Primary care physician: Dane Oliva MD Hospital Course: Discharge Diagnosis: Acute Exacerbation of systolic congestive heart failure, last known ejection fraction 40% Prerenal azotemia Hypomagnesemia Cirrhosis, decompensated with fluid overload Pancytopenia secondary to advanced cirrhosis Generalized weakness Coronary artery disease Dyslipidemia Hospital Course: Patient is a 82-year-old female with a cirrhosis and recent hepatic encephalopathy, thrombocytopenia, hypertension, hyperlipidemia, and GERD who presented to the emergency room for generalized weakness and difficulty walkingPatient was recnetly discharged on 12/10/22 after a hospital stay for hepatic encephalopathy complicated by hypotension, her Imdur and Lisinopril was discontinued but Metoprolol (lowered dose) and Lasix was continued. In the ED, her vital signs were stable. CBC showed hemoglobin of 9 and platelet count 63. Coagulation panel within normal limits. CMP showed chloride of 111, bicarb of 18, BUN 31, glucose 101, calcium 8, total bilirubin 1.5, albumin 2.4. BNP 1470. Troponin 0.018. Ammonia 20. Magnesium 1.5. EKG showed sinus rhythm with sinus arrhythmia and LBBB. CXR showed pulmonary vascular congestion and question of developing RLL PNA. Hip XR showed moderate severe right hip arthropathy correlate for femoral acetabular impingement. Patient was admitted for further management and workup, she was started on IV lasix. She had improvement in her breathing and lower extremity edema. She did have low magnesium which was replaced. She was determined stable for discharge to SNF with close follow-up. Follow-up: Dr. Sheppard in 1 week, Dr. Cherry as previously scheduled on 12/20. Increase Lasix to 40 mg twice daily. CBC, BMP, and Mg in 3 days. FLonasea nd claritin for 1 week. Patient seen and examined at bedside. Her breathing is better still with cough, no nausea, no vomting, edema improving buyt not resolved. Vital signs reviewed and stable. General: nontoxic, no distress, appears at stated age Cardiovascular: S1S2 reg, no murmur, positive posterior tibial pulse bilateral, Lungs: course bs b/l , no accessory muscle use Abdominal: soft, nontender to palpation, no guarding, no appreciable organomegaly Ext: no gross muscle atrophy, 2+ edema b/l lower extremities, no contractures Neuro: CN II-XI grossly intact, no focal neuro deficits Psych: Alert, oriented, appropriate affect A total of 32 minutes of time were spent preparing this complex discharge summary. Patient was discharged on 12/16/22. This dictation was prepared using [employer] voice recognition software. Though every attempt is made to correct errors during dictation some may still exist. Patient Condition at Discharge: Stable Plan - Discharge Summary Discharge Rx Participant: No New Discharge Prescriptions: New Loratadine [Claritin] 10 mg PO DAILY tab guaiFENesin SYRUP 100MG/5ML [Robitussin] 200 mg PO Q6HR PRN ml PRN Reason: Cough Rifaximin [Xifaxan] 550 mg PO BID tab Fluticasone Nasal Baldwin [Flonase Nasal Baldwin] 2 spray EA NOSTRIL DAILY ml Albuterol Nebulized [Ventolin Nebulized] 2.5 mg INHALATION RT-Q4H PRN ml PRN Reason: Shortness Of Breath Or Wheezing Magnesium Oxide [Mag-Ox] 400 mg PO DAILY #30 tablet Continue Pravastatin Sodium 80 mg PO DAILY Lactulose [Cephulac] 20 gm PO TID #2700 ml Midodrine [ProAmatine] 5 mg PO AC-TID #90 tab Metoprolol Succinate (ER) [Toprol XL] 12.5 mg PO DAILY #30 tab Primidone [Mysoline] 50 mg PO BID Triamcinolone 0.1% Ointment [Kenalog 0.1% Ointment] 1 applic TOPICAL DAILY PRN PRN Reason: irritation Aspirin 81 mg PO DAILY #30 tab Changed Furosemide [Lasix] 40 mg PO BID #0 Discharge Medication List Pravastatin Sodium 80 mg PO DAILY 07/30/20 [History] Primidone [Mysoline] 50 mg PO BID 07/30/20 [History] Triamcinolone 0.1% Ointment [Kenalog 0.1% Ointment] 1 applic TOPICAL DAILY PRN 12/03/22 [History] Lactulose [Cephulac] 20 gm PO TID #2700 ml 12/08/22 [Rx] Aspirin 81 mg PO DAILY #30 tab 12/10/22 [Rx] Metoprolol Succinate (ER) [Toprol XL] 12.5 mg PO DAILY #30 tab 12/10/22 [Rx] Midodrine [ProAmatine] 5 mg PO AC-TID #90 tab 12/10/22 [Rx] Albuterol Nebulized [Ventolin Nebulized] 2.5 mg INHALATION RT-Q4H PRN ml 12/16/22 [Rx] Fluticasone Nasal Baldwin [Flonase Nasal Baldwin] 2 spray EA NOSTRIL DAILY ml 12/16/22 [Rx] Furosemide [Lasix] 40 mg PO BID #0 12/16/22 [Rx] Loratadine [Claritin] 10 mg PO DAILY tab 12/16/22 [Rx] Magnesium Oxide [Mag-Ox] 400 mg PO DAILY #30 tablet 12/16/22 [Rx] Rifaximin [Xifaxan] 550 mg PO BID tab 12/16/22 [Rx] guaiFENesin SYRUP 100MG/5ML [Robitussin] 200 mg PO Q6HR PRN ml 12/16/22 [Rx] Follow up Appointment(s)/Referral(s): Helder Ibrahim MD [STAFF PHYSICIAN] - 12/20/22 10:15 am Dane Oliva MD [Primary Care Provider] - 1-2 days Michelle Sheppard MD [STAFF PHYSICIAN] - 1 Week Activity/Diet/Wound Care/Special Instructions: Activity: As tolerated Diet: Low sodium, heart healthy Special Instructions: CBC, magnesium, and BMP in 3-5 days DX: anemia, hyponatremia, hypomagnesemia Compression stockings when up and ambulating Discharge Disposition: TRANSFER TO SNF/ECF
[2022-12-16 15:02] VITALS: BP 106/64; PULSE 75; TEMP 98.5
[2022-12-16] MEDS: ACETAMINOPHEN TAB 325 MG TAB PO PRN (15:52)
== END 2022-12-16 17:47 | DRG 291 ==
LOC: EC 12:18 → SUPCPDRO 12:18 → 5NMEDONC 15:18
PROVIDERS: ADMIT Family Medicine; ATTEND Family Medicine
DX: I11.0 Hypertensive heart disease with heart failure (principal); I50.23 Acute on chronic systolic (congestive) heart failure; D61.818 Other pancytopenia; D69.3 Immune thrombocytopenic purpura; E78.5 Hyperlipidemia, unspecified; F17.210 Nicotine dependence, cigarettes, uncomplicated; E83.42 Hypomagnesemia; I25.10 Atherosclerotic heart disease of native coronary artery without angina pectoris; K74.60 Unspecified cirrhosis of liver; M19.90 Unspecified osteoarthritis, unspecified site; I44.7 Left bundle-branch block, unspecified; I25.2 Old myocardial infarction; K74.69 Other cirrhosis of liver; Y95 Nosocomial condition; Z79.82 Long term (current) use of aspirin; Z79.899 Other long term (current) drug therapy; Z90.710 Acquired absence of both cervix and uterus; Z95.5 Presence of coronary angioplasty implant and graft; Z20.822 Contact with and (suspected) exposure to COVID-19; Z82.49 Family history of ischemic heart disease and other diseases of the circulatory system; Z88.1 Allergy status to other antibiotic agents; Z88.8 Allergy status to other drugs, medicaments and biological substances; Z88.5 Allergy status to narcotic agent; Z88.0 Allergy status to penicillin; Z90.49 Acquired absence of other specified parts of digestive tract
CPT/HCPCS: 36415; 51702; 71046; 73502; 80048; 80053; 81001; 82140; 83605; 83735; 83880; 84100; 84145; 84484; 85025; 85027; 85610; 85730; 87040; 87449; 87636; 93005; 96365; 96368; 99285

== ENCOUNTER 2023-04-26 13:38 | Emergency (ER) | payer MEDICARE ==
[2023-04-26] MEDS: KETOROLAC 15 MG/ML 1 ML VIAL IVP STA (15:12)
[2023-04-26] MEDS: ORPHENADRINE 30 MG/ML 2 ML VIAL IVP STA (15:14)
--- NOTE | 2023-04-26 15:52 | XR ---
EXAMINATION TYPE: XR chest 2V DATE OF EXAM: 04/26/2023 3:27 PM CLINICAL INDICATION:Female, 82 years old with history of Difficulty breathing ; [facility] COMPARISON: Chest radiographs from 12/15/2022 TECHNIQUE: XR chest 2V Frontal and lateral views of the chest. FINDINGS: Lungs/Pleura: There is no evidence of pleural effusion, focal consolidation, or pneumothorax. Pulmonary vascularity: Pulmonary vascular congestion. Heart/mediastinum: Cardiomediastinal silhouette is enlarged and stable. Musculoskeletal: No acute osseous pathology. IMPRESSION: Low lung volumes with a generalized hazy appearance which could represent atelectasis versus pulmonar y edema correlate with serum BNP.
--- NOTE | 2023-04-26 17:27 | ED ---
General Adult HPI - General Chief complaint: Back Pain/Injury Stated complaint: Back Pain Time Seen by Provider: 04/26/23 13:45 Source: patient, EMS, RN notes reviewed, old records reviewed Mode of arrival: EMS Limitations: no limitations - History of Present Illness Initial comments: This is a 82-year-old female who comes in stating that since she had physical therapy 2 days ago she has been having some pain in the rib cage on the left side in the mid posterior thoracic region. Patient states anytime she moves or someone presses that area increases the pain. Patient denies difficulty breathing or shortness of breath. Patient has any chest pain. Patient has any fever chills or cough or patient is any fall or direct trauma to that area. Patient [place] any lower back pain. Patient has any numbness weakness. Patient has any abdominal pain - Related Data Home Medications Medication Instructions Recorded Confirmed Pravastatin Sodium 80 mg PO DAILY 07/30/20 12/14/22 Primidone [Mysoline] 50 mg PO BID 07/30/20 12/14/22 Triamcinolone 0.1% Ointment 1 applic TOPICAL DAILY PRN 12/03/22 12/14/22 [Kenalog 0.1% Ointment] Previous Rx's Medication Instructions Recorded Lactulose [Cephulac] 20 gm PO TID #2700 ml 12/08/22 Aspirin 81 mg PO DAILY #30 tab 12/10/22 Metoprolol Succinate (ER) [Toprol 12.5 mg PO DAILY #30 tab 12/10/22 XL] Midodrine [ProAmatine] 5 mg PO AC-TID #90 tab 12/10/22 Albuterol Nebulized [Ventolin 2.5 mg INHALATION RT-Q4H PRN ml 12/16/22 Nebulized] Fluticasone Nasal [place] [Flonase 2 spray EA NOSTRIL DAILY ml 12/16/22 Nasal [place]] Furosemide [Lasix] 40 mg PO BID #0 12/16/22 Loratadine [Claritin] 10 mg PO DAILY tab 12/16/22 Magnesium Oxide [Mag-Ox] 400 mg PO DAILY #30 tablet 12/16/22 Rifaximin [Xifaxan] 550 mg PO BID tab 12/16/22 guaiFENesin SYRUP 100MG/5ML 200 mg PO Q6HR PRN ml 12/16/22 [Robitussin] Cyclobenzaprine [Flexeril] 5 mg PO TID #10 tab 04/26/23 Ketorolac [Toradol] 10 mg PO Q8HR #15 tab 04/26/23 Lidocaine 5% Patch [Lidoderm 5% 1 patch TOPICAL DAILY #5 patch 04/26/23 Patch] Allergies Allergy/AdvReac Type Severity Reaction Status Date / Time cephalexin monohydrate Allergy Rash/Hives/ Verified 04/26/23 13:49 [From Keflex] Swelling codeine Allergy Rash/Hives Verified 04/26/23 13:49 doxepin Allergy Rash/Hives Verified 04/26/23 13:49 meperidine HCl [From Demerol] Allergy Rash/Hives Verified 04/26/23 13:49 methylprednisolone Allergy Rash/Hives Verified 04/26/23 13:49 [From Medrol] Opioids - Morphine Analogues Allergy Rash/Hives Verified 04/26/23 13:49 Penicillins Allergy Swelling Verified 04/26/23 13:49 over entire body pentazocine lactate Allergy Rash/Hives-Stomach Verified 04/26/23 13:49 [From Talwin] Upset propoxyphene napsylate Allergy Rash/Hives- Verified 04/26/23 13:49 [From Darvocet-N] Itch tramadol Allergy Rash/Hives Verified 04/26/23 13:49 Review of Systems ROS Statement: Those systems with pertinent positive or pertinent negative responses have been documented in the HPI. ROS Other: All systems not noted in ROS Statement are negative. 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 Kan). 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 Date of Last Stent Placement:: 1998 Past Psychological History: No Psychological Hx Reported Smoking Status: Former smoker Past Alcohol Use History: None Reported Past Drug Use History: None Reported - Past Family History Mother Family Medical History: Cancer Additional Family Medical History / Comment(s): Breast Ca Father Family Medical History: Myocardial Infarction ([place]) Additional Family Medical History / Comment(s): @ age 86 from [place] General Exam - General Exam Comments Initial Comments: GENERAL: Patient is well-developed and well-nourished. Patient is nontoxic and well- hydrated and is in mild distress. ENT: Neck is soft and supple. No significant lymphadenopathy is noted. Oropharynx is clear. Moist mucous membranes. Neck has full range of motion without eliciting any pain. EYES: The sclera were anicteric and conjunctiva were pink and moist. Extraocular movements were intact and pupils were equal round and reactive to light. Eyelids were unremarkable. PULMONARY: Unlabored respirations. Good breath sounds bilaterally. No audible rales rhonchi or wheezing was noted. CARDIOVASCULAR: There is a regular rate and rhythm without any murmurs gallops or rubs. Posterior left chest wall in the mid thoracic region is tender to palpation and reproduces her pain and her pain and exactly ABDOMEN: Soft and nontender with normal bowel sounds. SKIN: Skin is clear with no lesions or rashes and otherwise unremarkable. NEUROLOGIC: Patient is alert and oriented x3. Cranial nerves II through XII are grossly intact. Motor and sensory are also intact. Normal speech, volume and content. Symmetrical smile. MUSCULOSKELETAL: Normal extremities with adequate strength and full range of motion. No lower extremity swelling or edema. No calf tenderness. LYMPHATICS: No significant lymphadenopathy is noted PSYCHIATRIC: Normal psychiatric evaluation. Limitations: no limitations Course Vital Signs 04/26/23 04/26/23 13:42 18:08 Temperature 97.7 F 97.8 F Pulse Rate 77 72 Respiratory 20 16 Rate Blood Pressure 124/67 120/58 O2 Sat by Pulse 96 97 Oximetry Medical Decision Making - Medical Decision Making Was pt. sent in by a medical professional or institution (, PA, FORTUNE TELLER, urgent care, hospital, or correction...) When possible be specific @ -No Did you speak to anyone other than the patient for history (EMS, parent, family, police, friend...)? What history was obtained from this source @ -No Did you review nursing and triage notes (agree or disagree)? Why? @ -I reviewed and agree with nursing and triage notes Were old charts reviewed (outside hosp., previous admission, EMS record, old EKG, old radiological studies, urgent care reports/EKG's, correction records)? Report findings @ -No old charts were reviewed Differential Diagnosis (chest pain, altered mental status, abdominal pain women, abdominal pain men, vaginal bleeding, weakness, fever, dyspnea, syncope, headache, dizziness, GI bleed, back pain, seizure, CVA, palpatations, mental health, musculoskeletal)? @ -Differential Musculoskeletal Muscular strain, contusion, ligament sprain, fracture, arthritis, septic arthritis, bursitis, cellulitis, muscle spasm, nerve compression, DVT, arterial occlusion, herpes zoster, electrolyte abnormality, tumor.... This is not meant to be in all inclusive list EKG interpreted by me (3pts min.). @ -As above X-rays interpreted by me (1pt min.). @ -Chest x-ray shows no acute abnormality CT interpreted by me (1pt min.). @ -None done U/S interpreted by me (1pt. min.). @ -None done What testing was considered but not performed or refused? (CT, X-rays, U/S, labs)? Why? @ -None What meds were considered but not given or refused? Why? @ -None Did you discuss the management of the patient with other professionals (pro fessionals i.e. , PA, FORTUNE TELLER, lab, RT, psych nurse, social work instructor, chief unit forester, teacher, mobile patrol officer, disease case manager)? Give summary @ -No Was smoking cessation discussed for >3mins.? @ -No Was critical care preformed (if so, how long)? @ -No Were there social determinants of health that impacted care today? How? (Homelessness, low income, unemployed, alcoholism, drug addiction, transportation, low edu. Level, literacy, decrease access to med. care, snf, rehab)? @ -No Was there de-escalation of care discussed even if they declined (Discuss DNR or withdrawal of care, Hospice)? DNR status @ -No What co-morbidities impacted this encounter? (DM, HTN, Smoking, COPD, CAD, Cancer, CVA, ARF, Chemo, Hep., AIDS, mental health diagnosis, sleep apnea, morbid obesity)? @ -None Was patient admitted / discharged? Hospital course, mention meds given and route, prescriptions, significant lab abnormalities, going to OR and other pertinent info. @ -Patient received Toradol and Norflex and was feeling considerably better though the pain could continue to be reproduced with palpation. Patient's chest x-ray showed no acute abnormality explaining the patient's pain. Patient at this point in time was comfortable going home. Patient will be sent home with Flexeril Toradol and a lidocaine patch Undiagnosed new problem with uncertain prognosis? @ -No Drug Therapy requiring intensive monitoring for toxicity (Heparin, Nitro, Insulin, Cardizem)? @ -No Were any procedures done? @ -No Diagnosis/symptom? @ -Thoracic back pain Acute, or Chronic, or Acute on Chronic? @ -Acute Uncomplicated (without systemic symptoms) or Complicated (systemic symptoms)? @ -Uncomplicated Side effects of treatment? @ -No Exacerbation, Progression, or Severe Exacerbation? @ -No Poses a threat to life or bodily function? How? (Chest pain, [place], [place], pneumonia, PE, COPD, DKA, ARF, appy, cholecystitis, CVA, Diverticulitis, Homicidal, Suicidal, threat to staff... and all critical care pts) @ -No - Lab Data Lab Results 04/26/23 Range/Units 17:41 Urine Color Yellow Urine Appearance Cloudy H (Clear) Urine pH 5.0 (5.0-8.0) Ur Specific [employer] 1.016 (1.001-1.035) Urine Protein Negative (Negative) Urine Glucose (UA) Negative (Negative) Urine Ketones Negative (Negative) Urine Blood Negative (Negative) Urine Nitrite Negative (Negative) Urine Bilirubin Negative (Negative) Urine Urobilinogen <2.0 (<2.0) mg/dL Ur Leukocyte Esterase Large H (Negative) Urine RBC 4 (0-5) /hpf Urine WBC >182 H (0-5) /hpf Urine WBC Clumps Many H (None) /hpf Ur Squamous Epith Cells 4 (0-4) /hpf Urine Bacteria Many H (None) /hpf Hyaline Casts 11 H (0-2) /lpf Urine Mucus Rare H (None) /hpf Disposition Clinical Impression: Thoracic back pain Disposition: HOME SELF-CARE Condition: Good Prescriptions: Cyclobenzaprine [Flexeril] 5 mg PO TID #10 tab Lidocaine 5% Patch [Lidoderm 5% Patch] 1 patch TOPICAL DAILY #5 patch Ketorolac [Toradol] 10 mg PO Q8HR #15 tab Is patient prescribed a controlled substance at d/c from ED?: No Referrals: Dane Oliva MD [Primary Care Provider] - 1-2 days Time of Disposition: 17:27
[2023-04-26] MEDS: LIDOCAINE 4% PATCH TOPICAL ONE (17:41)
[2023-04-26 18:31] LABS: Appearance,Urine Cloudy (Clear); Bacteria,Urine Many /hpf; Bilirubin,Urine Negative (Negative); Blood,Urine Negative (Negative); Color,Urine Yellow; Glucose,Urine (UA) Negative (Negative); Hyaline Casts,Urine 11 /lpf (0-2); Ketones,Urine Negative (Negative); Leukocyte Esterase,Urine Large (Negative); Mucus,Urine Rare /hpf; Nitrite,Urine Negative (Negative); Protein,Urine Negative (Negative); RBC,Urine 4 /hpf (0-5); Specific Gravity,Urine 1.016 (1.001-1.035); Squamous Epithelial Cell,Urine 4 /hpf (0-4); Urobilinogen,Urine <2.0 mg/dL (<2.0); WBC,Urine >182 /hpf (0-5)
[2023-04-26 18:34] VITALS: BP 120/58; PULSE 72; RESP 16; TEMP 97.8
== END 2023-04-26 17:46 | disposition home or self-care (01) ==
LOC: EC 13:38
DX: M54.6 Pain in thoracic spine (principal); B96.20 Unspecified Escherichia coli [E. coli] as the cause of diseases classified elsewhere; I10 Essential (primary) hypertension; I25.10 Atherosclerotic heart disease of native coronary artery without angina pectoris; I25.2 Old myocardial infarction; E78.5 Hyperlipidemia, unspecified; Z79.899 Other long term (current) drug therapy; Z88.1 Allergy status to other antibiotic agents; Z88.0 Allergy status to penicillin; Z88.5 Allergy status to narcotic agent; Z88.8 Allergy status to other drugs, medicaments and biological substances; Z87.891 Personal history of nicotine dependence
CPT/HCPCS: 81001; 87086; 71046; 99284; 96374; 96375; J2360; J1885; 87077; 87186

== ENCOUNTER 2023-04-29 22:41 | Inpatient (IN) | payer MEDICARE ==
[2023-04-29 23:09] LABS: Anisocytosis Slight; HCT 32.8 % (34.0-46.0); HGB 11.3 gm/dL (11.4-16.0); MCH 33.6 pg (25.0-35.0); MCHC 34.5 g/dL (31.0-37.0); MCV 97.4 fL (80.0-100.0); Macrocytosis Slight; Mean Platelet Volume 9.2; Poikilocytosis Moderate; RBC 3.37 m/uL (3.80-5.40); RDW 16.1 % (11.5-15.5); WBC 1.6 k/uL (3.8-10.6)
[2023-04-29 23:21] LABS: INR 1.3 (<1.2); Partial Thromboplastin Time 23.9 sec (22.0-30.0); Prothrombin Time 13.3 sec (10.0-12.5)
[2023-04-29 23:31] LABS: Platelet Count 41 k/uL (150-450)
[2023-04-29 23:49] LABS: ALT 20 U/L (4-34); AST 44 U/L (14-36); African American GFR (CKD) 49 (>60 ml/min/1.73 sqM); Albumin 2.6 g/dL (3.5-5.0); Alkaline Phosphatase 282 U/L (38-126); Anion Gap 7 mmol/L; Blood Urea Nitrogen 33 mg/dL (7-17); Carbon Dioxide 24 mmol/L (22-30); Chloride 100 mmol/L (98-107); Glucose 89 mg/dL (74-99); Magnesium 1.7 mg/dL (1.6-2.3); Non-African American GFR(CKD) 43 (>60 ml/min/1.73 sqM); Potassium 4.7 mmol/L (3.5-5.1); Sodium 131 mmol/L (137-145); Total Bilirubin 4.2 mg/dL (0.2-1.3); Total Protein 5.3 g/dL (6.3-8.2)
--- NOTE | 2023-04-29 23:49 | XR ---
EXAM: XR Chest, 2 Views CLINICAL HISTORY: XR Reason: Chest Pain TECHNIQUE: Frontal and lateral views of the chest. COMPARISON: April 26, 2023 FINDINGS: Lungs: Lungs are underinflated with prominent vascular and interstitial markings throughout both lungs. No consolidation. Pleural space: Unremarkable. No pneumothorax. Heart: The cardiac silhouette is mildly enlarged. Mediastinum: Unremarkable. Normal mediastinal contour. Bones/joints: Mild degenerative changes in the spine and shoulders. No acute fracture. Upper abdomen: Unremarkable as visualized. No pneumoperitoneum is seen under the diaphragm. IMPRESSION: Lungs are underinflated with prominent vascular and interstitial markings throughout both lungs. Possible mild emphysema and or edema. No focal consolidation is seen.
[2023-04-29 23:56] LABS: NT-Pro-B-Type Natriuretic Pept 2360 pg/mL
[2023-04-30] MEDS: ASPIRIN 81 MG PO STA (00:01)
[2023-04-30] MEDS: MIDODRINE 5 MG TAB PO STA ×3 (00:10→04:01)
[2023-04-30] MEDS: KETOROLAC 15 MG/ML 1 ML VIAL IVP STA (00:12)
[2023-04-30 00:34] LABS: Band Neutrophils % 16 %; Eosinophils # (M) 0.03 k/uL (0-0.7); Lymphocytes # (M) 0.05 k/uL (1.0-4.8); Monocytes # (M) 0.02 k/uL (0-1.0); Neutrophils % (M) 78 %; Nucleated Red Blood Cells 0 /100 WBC (0-0); Total Cells Counted 100
[2023-04-30 00:35] LABS: Toxic Granulation Present
[2023-04-30] MEDS: ACETAMINOPHEN TAB 500 MG TAB PO STA (00:36)
[2023-04-30] MEDS: LIDOCAINE 4% PATCH TOPICAL STA (00:37)
[2023-04-30] MEDS: SODIUM CHLORIDE 0.9% 500 ML 500 ML IV STA ×2 (00:43→01:27)
--- NOTE | 2023-04-30 01:32 | CT ---
EXAM: CT Angiography Chest Without and With Intravenous Contrast CLINICAL HISTORY: CT Reason: chest pain. Evaluate PE/aorta TECHNIQUE: Axial computed tomographic angiography images of the chest without and with intravenous contrast. CTDI is 33.25 mGy and DLP is 730.1 mGy-cm. This CT exam was performed using one or more of the following dose reduction techniques: automated exposure control, adjustment of the mA and/or kV according to patient size, and/or use of iterative reconstruction technique. MIP reconstructed images were created and reviewed. COMPARISON: No relevant prior studies available. FINDINGS: Pulmonary arteries: The pulmonary arterial tree is adequately opacified with contrast. There is mild motion artifact blurring the lower lobe branches bilaterally. No pulmonary embolism is identified. Aorta: The thoracic aorta is mildly calcified but nondilated. There is no aneurysm or dissection. Lungs: See below. Pleural space: Small bilateral pleural effusions measuring up to 1 cm. There is vascular congestion without overt edema. Consider mild CHF. Heart: The heart is moderately enlarged. Severe coronary calcification is present. No pericardial effusion. No evidence of RV dysfunction. Thyroid: Partial visualization of a left thyroid mass measuring 4.6 cm. Bones/joints: 30-40% compression fractures of T7 and T8. Acute left posterior eighth rib fracture. No pneumothorax is seen. There is also a fracture of the coronoid process of the left scapula which appears acute. No dislocation. Soft tissues: Unremarkable. Lymph nodes: Unremarkable. No enlarged lymph nodes. IMPRESSION: 1. Partial visualization of a left thyroid mass measuring 4.6 cm. 2. Small bilateral pleural effusions measuring up to 1 cm. There is vascular congestion without overt edema. Consider mild CHF. 3. 30-40% compression fractures of T7 and T8. These are possibly acute. No posterior protrusion fracture fragments is present. No spinal stenosis. 4. Acute left posterior eighth rib fracture. No pneumothorax is seen. There is also a fracture of the coronoid process of the left scapula which appears acute. 5. The thoracic aorta is mildly calcified but nondilated. There is no aneurysm or dissection. 6. The pulmonary arterial tree is adequately opacified with contrast. There is mild motion artifact blurring the lower lobe branches bilaterally. No pulmonary embolism is identified. 7. The heart is moderately enlarged. Severe coronary calcification is present. No pericardial effusion. EXAM: CT Angiography Abdomen and Pelvis Without and With Intravenous Contrast CLINICAL HISTORY: CT Reason: chest pain. Evaluate PE/aorta TECHNIQUE: Axial computed tomographic angiography images of the abdomen and pelvis without and with intravenous contrast. CTDI is 33.25 mGy and DLP is 730. 1 mGy-cm. This CT exam was performed using one or more of the following dose reduction techniques: automated exposure control, adjustment of the mA and/or kV according to patient size, and/or use of iterative reconstruction technique. MIP reconstructed images were created and reviewed. COMPARISON: January 31, 2022 FINDINGS: VASCULATURE: Aorta: The abdominal aorta is mildly calcified. There is a 2.5 cm focal ectasia of the infrarenal aorta without aneurysm or dissection. No signs of rupture. Celiac trunk and mesenteric arteries: Less than 20% stenosis of the celiac and superior mesenteric arteries. The inferior mesenteric artery is patent. Renal arteries: Mild calcified plaque involving both renal arteries with probable mild stenosis on the right. Iliac arteries: No acute findings. No occlusion or significant stenosis. Lung bases: Unremarkable. No mass. No consolidation. ABDOMEN: Liver: Unremarkable. No mass. Gallbladder and bile ducts: The gallbladder appears to have been removed. No ductal dilation. Pancreas: Unremarkable. No ductal dilation. No mass. Spleen: Borderline splenomegaly measuring 15 cm. Adrenals: Unremarkable. No mass. Kidneys and ureters: There is a left hip screw in place as well as a left femur mattie. Mild bilateral atrophy. The kidneys enhance symmetrically. No hydronephrosis or ureterolithiasis. Multiple bilateral renal cysts measuring up to 3.9 cm in diameter. No follow-up is required. Stomach and bowel: Unremarkable. No obstruction. No mucosal thickening. PELVIS: Appendix: The appendix is not visible. Bowel loops are nondilated. No acute inflammatory changes are seen involving the bowel. Bladder: Unremarkable. No stones. No mass. Reproductive: Unremarkable as visualized. ABDOMEN and PELVIS: Intraperitoneal space: Unremarkable. No significant fluid collection. No free air. Bones/joints: Moderate to severe multilevel degenerative changes throughout the spine with grade 1 anterolisthesis of L4 on L5. No acute lumbar spine fracture is seen. No dislocation. Soft tissues: Fat-containing anterior pelvic wall hernia measuring 5 cm without signs of acute inflammation. Lymph nodes: Unremarkable. No enlarged lymph nodes. IMPRESSION: 1. The abdominal aorta is mildly calcified. There is a 2.5 cm focal ectasia of the infrarenal aorta without aneurysm or dissection. No signs of rupture. 2. The appendix is not visible. Bowel loops are nondilated. No acute inflammatory changes are seen involving the bowel.
[2023-04-30] MEDS ORDERED: NALOXONE 0.4 MG/ML 1 ML VIAL IV PRN (02:44)
[2023-04-30] MEDS: SODIUM CHLORIDE 0.9% 1,000 ML IV SCH (03:10)
--- NOTE | 2023-04-30 03:10 | ED ---
General Adult HPI - General Chief complaint: Chest Pain Stated complaint: chest wall pain Time Seen by Provider: 04/29/23 22:50 Source: patient, EMS, RN notes reviewed, old records reviewed Mode of arrival: EMS - History of Present Illness Initial comments: Patient is an 82-year-old female who presents emergency department complaining of chest wall pain. Has been ongoing for at least a week if not 2 weeks. States it is worse with movements. Had some back pain as well and was evaluated for earlier this week and was told she was having muscle spasms. States she has pain that radiates around from the back around her side towards her sternum bilaterally. Denies any known falls or injuries. Pain is worse with movement of upper arms, or with palpation over bilateral chest wall. States has become more severe which is why she presents for further evaluation. Denies nausea or vomiting. Denies abdominal pain. Denies any other issues. Presents for further evaluation. Has a history of chronic liver disease. - Related Data Home Medications Medication Instructions Recorded Confirmed Pravastatin Sodium 80 mg PO DAILY 07/30/20 12/14/22 Primidone [Mysoline] 50 mg PO BID 07/30/20 12/14/22 Triamcinolone 0.1% Ointment 1 applic TOPICAL DAILY PRN 12/03/22 12/14/22 [Kenalog 0.1% Ointment] Previous Rx's Medication Instructions Recorded Lactulose [Cephulac] 20 gm PO TID #2700 ml 12/08/22 Aspirin 81 mg PO DAILY #30 tab 12/10/22 Metoprolol Succinate (ER) [Toprol 12.5 mg PO DAILY #30 tab 12/10/22 XL] Midodrine [ProAmatine] 5 mg PO AC-TID #90 tab 12/10/22 Albuterol Nebulized [Ventolin 2.5 mg INHALATION RT-Q4H PRN ml 12/16/22 Nebulized] Fluticasone Nasal Darfur [Flonase 2 spray EA NOSTRIL DAILY ml 12/16/22 Nasal Darfur] Furosemide [Lasix] 40 mg PO BID #0 12/16/22 Loratadine [Claritin] 10 mg PO DAILY tab 12/16/22 Magnesium Oxide [Mag-Ox] 400 mg PO DAILY #30 tablet 12/16/22 Rifaximin [Xifaxan] 550 mg PO BID tab 12/16/22 guaiFENesin SYRUP 100MG/5ML 200 mg PO Q6HR PRN ml 12/16/22 [Robitussin] Cyclobenzaprine [Flexeril] 5 mg PO TID #10 tab 04/26/23 Ketorolac [Toradol] 10 mg PO Q8HR #15 tab 04/26/23 Lidocaine 5% Patch [Lidoderm 5% 1 patch TOPICAL DAILY #5 patch 04/26/23 Patch] Allergies Allergy/AdvReac Type Severity Reaction Status Date / Time cephalexin monohydrate Allergy Rash/Hives/ Verified 04/26/23 13:49 [From Keflex] Swelling codeine Allergy Rash/Hives Verified 04/26/23 13:49 doxepin Allergy Rash/Hives Verified 04/26/23 13:49 meperidine HCl [From Demerol] Allergy Rash/Hives Verified 04/26/23 13:49 methylprednisolone Allergy Rash/Hives Verified 04/26/23 13:49 [From Medrol] Opioids - Morphine Analogues Allergy Rash/Hives Verified 04/26/23 13:49 Penicillins Allergy Swelling Verified 04/26/23 13:49 over entire body pentazocine lactate Allergy Rash/Hives-Stomach Verified 04/26/23 13:49 [From Talwin] Upset propoxyphene napsylate Allergy Rash/Hives- Verified 04/26/23 13:49 [From Darvocet-N] Itch tramadol Allergy Rash/Hives Verified 04/26/23 13:49 Review of Systems ROS Statement: Those systems with pertinent positive or pertinent negative responses have been documented in the HPI. Review of Systems: CONST: Denies fever EYES: Denies blurry vision ENT: Denies nasal congestion C/V: Endorses chest pain RESP: Denies shortness of breath GI: Denies abdominal pain : Denies dysuria SKIN: Denies rash. MSK: Denies joint pain. NEURO: Denies headache ROS Other: All systems not noted in ROS Statement are negative. 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 Kan). 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 Date of Last Stent Placement:: 1998 Past Psychological History: No Psychological Hx Reported Smoking Status: Former smoker Past Alcohol Use History: None Reported Past Drug Use History: None Reported - Past Family History Mother Family Medical History: Cancer Additional Family Medical History / Comment(s): Breast Ca Father Family Medical History: Myocardial Infarction (MS) Additional Family Medical History / Comment(s): @ age 86 from MS General Exam - General Exam Comments Initial Comments: General: Appears in mild to moderate distress. HEAD: Normal with no signs of head trauma. EYES: PERRLA, EOMI, conjunctiva normal, no discharge. ENT: Hearing grossly intact, normal oropharynx. RESPIRATORY: Clear breath sounds bilaterally. No wheezes, rales, or rhonchi. C/V: Regular rate and rhythm. S1 and S2 auscultated, extremity pitting edema, peripheral pulses 2+ and intact throughout ABD: Abd is soft, nontender, nondistended EXT: Normal range of motion, no obvious deformity. Mild midline thoracic spine pain. Obvious chest wall pain bilaterally. No obvious step-offs or deformities of the chest wall. SKIN: No rashes or lesions observed on exposed skin. NEURO: Alert and oriented x 4. Course Vital Signs 04/29/23 04/30/23 04/30/23 22:45 00:43 00:47 Temperature 98.3 F 97.3 F L Pulse Rate 125 H 104 H Respiratory 24 19 Rate Blood Pressure 106/55 91/46 O2 Sat by Pulse 96 95 Oximetry 04/30/23 04/30/23 04/30/23 01:23 01:45 02:57 Temperature Pulse Rate 111 H 98 92 Respiratory 20 19 17 Rate Blood Pressure 89/42 101/49 98/45 O2 Sat by Pulse 97 94 L 91 L Oximetry 04/30/23 04/30/23 04/30/23 03:05 03:19 04:04 Temperature Pulse Rate 94 94 93 Respiratory 17 17 18 Rate Blood Pressure 80/43 91/46 O2 Sat by Pulse 92 L 91 L Oximetry 04/30/23 05:00 Temperature Pulse Rate 85 Respiratory 17 Rate Blood Pressure 99/46 O2 Sat by Pulse 96 Oximetry Medical Decision Making - Medical Decision Making Was pt. sent in by a medical professional or institution (, PA, HOME HEALTH TRAVEL OT, urgent care, hospital, or retirement...) When possible be specific @ -No Did you speak to anyone other than the patient for history (EMS, parent, family, police, friend...)? What history was obtained from this source @ -Yes, multiple family members including daughter and assist with patient's recent past medical history. Did you review nursing and triage notes (agree or disagree)? Why? @ -I reviewed and agree with nursing and triage notes Were old charts reviewed (outside hosp., previous admission, EMS record, old EKG, old radiological studies, urgent care reports/EKG's, retirement records)? Report findings @ -Old charts reviewed Differential Diagnosis (chest pain, altered mental status, abdominal pain women, abdominal pain men, vaginal bleeding, weakness, fever, dyspnea, syncope, headache, dizziness, GI bleed, back pain, seizure, CVA, palpatations, mental health, musculoskeletal)? @ -Differential Chest Pain: Stable Angina, Unstable Angina, STEMI, NSTEMI Aortic Dissection, Pneumothorax, Musculoskeletal, Esophageal Spasm GERD, Cholecystitis, Pancreatitis, Zoster, this is not meant to be an all-inclusive list. EKG interpreted by me (3pts min.). @ -As above X-rays interpreted by me (1pt min.). @ -Chest x-ray reveals no obvious acute cardiopulmonary process. Possible mild pulmonary vascular congestion. CT interpreted by me (1pt min.). @ -CT angiogram of the chest abdomen pelvis to evaluate for dissection is negative for any evidence of aortic dissection. No obvious PE. Patient has an acute left posterior eighth rib fracture, as well as compression fractures of T7 and T8 which appear to be acute. No other obvious explanation of the patient's current symptoms. U/S interpreted by me (1pt. min.). @ -None done What testing was considered but not performed or refused? (CT, X-rays, U/S, labs)? Why? @ -None What meds were considered but not given or refused? Why? @ -Considered heparin however patient is thrombocytopenic and chest wall pain does not seem cardiac in nature despite the elevated troponin. Discussed this with Dr. Sheppard of cardiology who is in agreement the plan we will trend the troponin. Discussed with IDALIA Hathaway of [facility] who accepted the admission. Patient previously admitted to [facility] as Dr. Dane Oliva was listed under their admission group, [facility] this physician is no longer listed under the group on our updated list. Therefore patient will be admitted to [facility] which is [facility]. However after discussion, it was determined that Dr. Oliva still admits to [facility] physician group. I spoke with Dr. Arteaga who accepted the admission. Did you discuss the management of the patient with other professionals (professionals i.e. , PA, HOME HEALTH TRAVEL OT, lab, RT, psych nurse, 7th grade social studies teacher, air conditioning supervisor, teacher, marketing officer, pillowcase maker)? Give summary @ -No Was smoking cessation discussed for >3mins.? @ -No Was critical care preformed (if so, how long)? @ -No Were there social determinants of health that impacted care today? How? (Homelessness, low income, unemployed, alcoholism, drug addiction, transportation, low edu. Level, literacy, decrease access to med. care, long-term, rehab)? @ -No Was there de-escalation of care discussed even if they declined (Discuss DNR or withdrawal of care, Hospice)? DNR status @ -No What co-morbidities impacted this encounter? (DM, HTN, Smoking, COPD, CAD, Cancer, CVA, ARF, Chemo, Hep., AIDS, mental health diagnosis, sleep apnea, morbid obesity)? @ -CAD, liver disease Was patient admitted / discharged? Hospital course, mention meds given and route, prescriptions, significant lab abnormalities, going to OR and other pertinent info. @ -Based on the patient's presentation and physical exam, presents with 1 week of chest wall pains. Vital signs are within acceptable limits with mildly soft blood pressures however patient is uncertain if she took her normal midodrine which she is on 3 times a day. Patient will be given a dose of this as well as obtain cardiopulmonary workup. She was in agreement this plan. She will be given a small fluid bolus as well as analgesia medications. Patient was given an aspirin. Vital signs within acceptable limits. EKG shows chronic left bundle branch block but no evidence of acute process. Patient's laboratory studies remarkable for chronic thrombocytopenia. Patient's initial troponin elevated to 0.064, repeat 0.297. Remainder the labs appear to be chronic without any obvious acute findings. Urine is still pending. Chest x-ray revealed no obvious acute car diopulmonary process. CT angiogram of the aorta revealed no evidence of intra aortic injury or other acute process other than compression fractures of the thoracic spine as well as a left eighth rib fracture. I discussed results with the patient. I updated family as well. I updated the multiple times. I did reach out to cardiology Dr. Sheppard due to the elevated troponin and we discussed patient's current workup and possibility of heparin however patient is thrombocytopenic. He is in agreement with holding the heparin at this time and admitting the patient for further evaluation and tropon in trending. With the obvious T-spine fractures, obvious chest wall pain, and obvious rib fracture, patient's chest pain appears to be related to the musculoskeletal pain. This pain is also been ongoing over the last week. He was otherwise in agreement this plan. Uncertain if she took her midodrine at all yesterday so received 3 total doses Discussed with IDALIA Hathaway of [facility] who accepted the admission. Patient previously admitted to [facility] as Dr. Dane Oliva was listed under their admission group, however this physician is no longer listed under the group on our updated list. Therefore patient will be admitted to [facility] which is [facility].However after discussion, it was determined that Dr. Oliva still admits to [facility] physician group. I spoke with Dr. Arteaga who accepted the admission. Undiagnosed new problem with uncertain prognosis? @ -No Drug Therapy requiring intensive monitoring for toxicity (Heparin, Nitro, Insulin, Cardizem)? @ -No Were any procedures done? @ -No Diagnosis/symptom? @ -Chest wall pain, elevated troponin, left rib fracture, thoracic spine compression fractures Acute, or Chronic, or Acute on Chronic? @ -Acute Uncomplicated (without systemic symptoms) or Complicated (systemic symptoms)? @ -Complicated Side effects of treatment? @ -No Exacerbation, Progression, or Severe Exacerbation? @ -No Poses a threat to life or bodily function? How? (Chest pain, USA, MS, pneumonia, PE, COPD, DKA, ARF, appy, cholecystitis, CVA, Diverticulitis, Homicidal, Suicida l, threat to staff... and all critical care pts) @ -Possibly - Lab Data Result diagrams: 04/29/23 22:54 04/29/23 22:54 Lab Results 04/29/23 04/29/23 04/29/23 Range/Units 22:54 22:54 22:54 WBC 1.6 L (3.8-10.6) k/uL RBC 3.37 L (3.80-5.40) m/uL Hgb 11.3 L (11.4-16.0) gm/dL Hct 32.8 L (34.0-46.0) % MCV 97.4 (80.0-100.0) fL MCH 33.6 (25.0-35.0) pg MCHC 34.5 (31.0-37.0) g/dL RDW 16.1 H (11.5-15.5) % Plt Count 41 L (150-450) k/uL MPV 9.2 Neutrophils % (Manual) 78 % Band Neuts % (Manual) 16 % Lymphocytes % (Manual) 3 % Monocytes % (Manual) 1 % Eosinophils % (Manual) 2 % Neutrophils # (Manual) 1.50 (1.3-7.7) k/uL Lymphocytes # (Manual) 0.05 L (1.0-4.8) k/uL Monocytes # (Manual) 0.02 (0-1.0) k/uL Eosinophils # (Manual) 0.03 (0-0.7) k/uL Nucleated RBCs 0 (0-0) /100 WBC Manual Slide Review Performed Toxic Granulation Present Poikilocytosis Moderate Anisocytosis Slight Macrocytosis Slight PT 13.3 H (10.0-12.5) sec INR 1.3 H (<1.2) APTT 23.9 (22.0-30.0) sec Sodium 131 L (137-145) mmol/L Potassium 4.7 (3.5-5.1) mmol/L Chloride 100 (98-107) mmol/L Carbon Dioxide 24 (22-30) mmol/L Anion Gap 7 mmol/L BUN 33 H (7-17) mg/dL Creatinine 1.19 H (0.52-1.04) mg/dL Est GFR (CKD-EPI)AfAm 49 (>60 ml/min/1.73 sqM) Est GFR (CKD-EPI)NonAf 43 (>60 ml/min/1.73 sqM) Glucose 89 (74-99) mg/dL Calcium 8.0 L (8.4-10.2) mg/dL Magnesium 1.7 (1.6-2.3) mg/dL Total Bilirubin 4.2 H (0.2-1.3) mg/dL AST 44 H (14-36) U/L ALT 20 (4-34) U/L Alkaline Phosphatase 282 H (38-126) U/L Troponin I (0.000-0.034) ng/mL NT-Pro-B Natriuret Pep 2360 pg/mL Total Protein 5.3 L (6.3-8.2) g/dL Albumin 2.6 L (3.5-5.0) g/dL 04/29/23 04/30/23 Range/Units 22:54 01:45 WBC (3.8-10.6) k/uL RBC (3.80-5.40) m/uL Hgb (11.4-16.0) gm/dL Hct (34.0-46.0) % MCV (80.0-100.0) fL MCH (25.0-35.0) pg MCHC (31.0-37.0) g/dL RDW (11.5-15.5) % Plt Count (150-450) k/uL MPV Neutrophils % (Manual) % Band Neuts % (Manual) % Lymphocytes % (Manual) % Monocytes % (Manual) % Eosinophils % (Manual) % Neutrophils # (Manual) (1.3-7.7) k/uL Lymphocytes # (Manual) (1.0-4.8) k/uL Monocytes # (Manual) (0-1.0) k/uL Eosinophils # (Manual) (0-0.7) k/uL Nucleated RBCs (0-0) /100 WBC Manual Slide Review Toxic Granulation Poikilocytosis Anisocytosis Macrocytosis PT (10.0-12.5) sec INR (<1.2) APTT (22.0-30.0) sec Sodium (137-145) mmol/L Potassium (3.5-5.1) mmol/L Chloride (98-107) mmol/L Carbon Dioxide (22-30) mmol/L Anion Gap mmol/L BUN (7-17) mg/dL Creatinine (0.52-1.04) mg/dL Est GFR (CKD-EPI)AfAm (>60 ml/min/1.73 sqM) Est GFR (CKD-EPI)NonAf (>60 ml/min/1.73 sqM) Glucose (74-99) mg/dL Calcium (8.4-10.2) mg/dL Magnesium (1.6-2.3) mg/dL Total Bilirubin (0.2-1.3) mg/dL AST (14-36) U/L ALT (4-34) U/L Alkaline Phosphatase (38-126) U/L Troponin I 0.064 H* 0.297 H* (0.000-0.034) ng/mL NT-Pro-B Natriuret Pep pg/mL Total Protein (6.3-8.2) g/dL Albumin (3.5-5.0) g/dL - EKG Data -: EKG Interpreted by Me EKG Comments: 12-lead Electrocardiogram Interpretation Note EKG was reviewed and interpreted by myself. 12-lead ECG performed at 2247 is interpreted by me as revealing sinus tachycardia with chronic left bundle branch block at a rate of 120 beats per minute. Left axis deviation, CO interval is 168 ms, QRS duration is 149 ms, QTc is 392 ms.. There were no VS acute ST or T wave abnormalities to suggest myocardial ischemia or injury. R wave progression across the precordium was satisfactory. By my interpretation this EKG is non- diagnostic for acute ischemia. 12-lead Electrocardiogram Interpretation Note EKG was reviewed and interpreted by myself. 12-lead ECG performed at 0047 is interpreted by me as revealing sinus tachycardia with chronic left bundle branch block at a rate of 103 beats per minute. Left axis deviation. Parables 171 ms, QRS duration is 148 ms, QTc is 433 ms.. There were no ST or T wave abnormalities to suggest myocardial ischemia or injury. R wave progression across the precordium was satisfactory. By my interpretation this EKG is non- diagnostic for acute ischemia. Disposition Clinical Impression: Chest wall pain, Rib fracture, Compression fx, thoracic spine, Elevated troponin Disposition: ADMITTED IP TO THIS HOSP Condition: Stable Time of Disposition: 03:01
[2023-04-30] MEDS: SODIUM CHLORIDE 0.9% 1,000 ML IV STA (04:03)
[2023-04-30 04:30] LABS: Appearance,Urine Clear (Clear); Bilirubin,Urine Negative (Negative); Blood,Urine Negative (Negative); Color,Urine Yellow; Glucose,Urine (UA) Negative (Negative); Ketones,Urine Negative (Negative); Leukocyte Esterase,Urine Negative (Negative); Nitrite,Urine Negative (Negative); Protein,Urine Trace (Negative); Specific Gravity,Urine 1.037 (1.001-1.035)
--- NOTE | 2023-04-30 05:48 | P.HPIM ---
History of Present Illness H&P Date: 04/30/23 Chief Complaint: Chest pain 82-year-old female with advanced liver cirrhosis Patient coming in due to sudden onset chest pain with shortness of breath while resting doing nothing. She reports that today she had home physical therapy and sometime after that she started noticing some pain and discomfort in her chest. She describes the pain as sharp severe across her chest associated with some diaphoresis denies any palpitations. She was also feeling dizzy denies any pa ssing out. For the past week she has been having episodes of profuse sweating but no chest pain denies any coughing sore throat. She was told that she had dental infection was started on antibiotics about 1 to 2 days ago she has been taking amoxicillin 500 mg Today due to the sudden onset chest pain she grew concerned and decided to come to the hospital for evaluation specially when it became associated with shortness of breath. 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 EKG did not show any acute ST changes In the ED she claimed that she has been having those chest pains for about 1 to 2 weeks now. However at time of my interview she claims that the pain started after physical therapy today Patient denies any falls denies any GI bleeding. She does report some left periumbilical abdominal discomfort review of systems Pertinent positives as noted in HPI. All other systems were reviewed and are negative on exam Constitutional: No acute distress, conversant, pleasant Eyes: Anicteric sclerae, moist conjunctiva, Pupils equal round reactive to light ENMT: NC/AT Oropharynx clear, no erythema, or exudates Neck: Supple, no masses, or JVD No carotid bruits No thyromegaly Lungs: Clear to auscultation Clear to percussion Normal respiratory effort, no accessory muscle use Cardiovascular: Heart regular in rate and rhythm, No murmurs, gallops, or rubs +1 bilateral peripheral leg edema Abdominal: Soft Nontender, no guarding, rebound or rigidity Abdomen moving with respiration Normoactive bowel sounds . Extremities: No digital cyanosis No clubbing Pedal pulses intact and symmetrical Radial pulses intact and symmetrical No calf tenderness Psychiatric: Alert and oriented to person, place and time Appropriate affect fair judgement Neuro Muscles Strength 5/5 in all 4 extremities Sensation to light touch grossly present throughout Cranial nerves II-XII grossly intact Lymphatics: no palpable cervical or supraclavicular lymph nodes Past Medical History Past Medical History: Blood Disorder, Coronary Artery Disease (CAD), GERD/Reflux, Hyperlipidemia, Hypertension, Liver Disease, Myocardial Infarction ([place]), Osteoarthritis (OA) Additional Past Medical History / Comment(s): 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 Kan). 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 Date of Last Stent Placement:: 1998 Past Psychological History: No Psychological Hx Reported Smoking Status: Former smoker Past Alcohol Use History: None Reported Past Drug Use History: None Reported - Past Family History Mother Family Medical History: Cancer Additional Family Medical History / Comment(s): Breast Ca Father Family Medical History: Myocardial Infarction ([place]) Additional Family Medical History / Comment(s): @ age 86 from [place] Medications and Allergies Home Medications Medication Instructions Recorded Confirmed Type Pravastatin Sodium 80 mg PO DAILY 07/30/20 12/14/22 History Primidone [Mysoline] 50 mg PO BID 07/30/20 12/14/22 History Triamcinolone 0.1% Ointment 1 applic TOPICAL DAILY PRN 12/03/22 12/14/22 History [Kenalog 0.1% Ointment] Lactulose [Cephulac] 20 gm PO TID #2700 ml 12/08/22 12/14/22 Rx Aspirin 81 mg PO DAILY #30 tab 12/10/22 12/14/22 Rx Metoprolol Succinate (ER) [Toprol 12.5 mg PO DAILY #30 tab 12/10/22 12/14/22 Rx XL] Midodrine [ProAmatine] 5 mg PO AC-TID #90 tab 12/10/22 12/14/22 Rx Albuterol Nebulized [Ventolin 2.5 mg INHALATION RT-Q4H PRN ml 12/16/22 Rx Nebulized] Fluticasone Nasal [place] [Flonase 2 spray EA NOSTRIL DAILY ml 12/16/22 Rx Nasal [place]] Furosemide [Lasix] 40 mg PO BID #0 12/16/22 12/14/22 Rx Loratadine [Claritin] 10 mg PO DAILY tab 12/16/22 Rx Magnesium Oxide [Mag-Ox] 400 mg PO DAILY #30 tablet 12/16/22 Rx Rifaximin [Xifaxan] 550 mg PO BID tab 12/16/22 Rx guaiFENesin SYRUP 100MG/5ML 200 mg PO Q6HR PRN ml 12/16/22 Rx [Robitussin] Cyclobenzaprine [Flexeril] 5 mg PO TID #10 tab 04/26/23 Rx Ketorolac [Toradol] 10 mg PO Q8HR #15 tab 04/26/23 Rx Lidocaine 5% Patch [Lidoderm 5% 1 patch TOPICAL DAILY #5 patch 04/26/23 Rx Patch] Allergies Allergy/AdvReac Type Severity Reaction Status Date / Time cephalexin monohydrate Allergy Rash/Hives/ Verified 04/26/23 13:49 [From Keflex] Swelling codeine Allergy Rash/Hives Verified 04/26/23 13:49 doxepin Allergy Rash/Hives Verified 04/26/23 13:49 meperidine HCl [From Demerol] Allergy Rash/Hives Verified 04/26/23 13:49 methylprednisolone Allergy Rash/Hives Verified 04/26/23 13:49 [From Medrol] Opioids - Morphine Analogues Allergy Rash/Hives Verified 04/26/23 13:49 Penicillins Allergy Swelling Verified 04/26/23 13:49 over entire body pentazocine lactate Allergy Rash/Hives-Stomach Verified 04/26/23 13:49 [From Talwin] Upset propoxyphene napsylate Allergy Rash/Hives- Verified 04/26/23 13:49 [From Darvocet-N] Itch tramadol Allergy Rash/Hives Verified 04/26/23 13:49 Physical Exam Vitals: Vital Signs Temp Pulse Resp BP Pulse Ox 04/30/23 04:04 93 18 91/46 04/30/23 03:19 94 17 80/43 91 L 04/30/23 03:05 94 17 92 L 04/30/23 02:57 92 17 98/45 91 L 04/30/23 01:45 98 19 101/49 94 L 04/30/23 01:23 111 H 20 89/42 97 04/30/23 00:47 97.3 F L 04/30/23 00:43 104 H 19 91/46 95 04/29/23 22:45 98.3 F 125 H 24 106/55 96 Intake and Output 04/29/23 04/29/23 04/30/23 14:59 22:59 06:59 Other: Weight 58.967 kg Results CBC & Chem 7: 04/29/23 22:54 04/29/23 22:54 Labs: Abnormal Lab Results - Last 24 Hours (Table) 04/29/23 04/29/23 04/29/23 Range/Units 22:54 22:54 22:54 WBC 1.6 L (3.8-10.6) k/uL RBC 3.37 L (3.80-5.40) m/uL Hgb 11.3 L (11.4-16.0) gm/dL Hct 32.8 L (34.0-46.0) % RDW 16.1 H (11.5-15.5) % Plt Count 41 L (150-450) k/uL Lymphocytes # (Manual) 0.05 L (1.0-4.8) k/uL PT 13.3 H (10.0-12.5) sec INR 1.3 H (<1.2) Sodium 131 L (137-145) mmol/L BUN 33 H (7-17) mg/dL Creatinine 1.19 H (0.52-1.04) mg/dL Calcium 8.0 L (8.4-10.2) mg/dL Total Bilirubin 4.2 H (0.2-1.3) mg/dL AST 44 H (14-36) U/L Alkaline Phosphatase 282 H (38-126) U/L Troponin I (0.000-0.034) ng/mL Total Protein 5.3 L (6.3-8.2) g/dL Albumin 2.6 L (3.5-5.0) g/dL Ur Specific [place] (1.001-1.035) Urine Protein (Negative) 04/29/23 04/30/23 04/30/23 Range/Units 22:54 01:45 03:55 WBC (3.8-10.6) k/uL RBC (3.80-5.40) m/uL Hgb (11.4-16.0) gm/dL Hct (34.0-46.0) % RDW (11.5-15.5) % Plt Count (150-450) k/uL Lymphocytes # (Manual) (1.0-4.8) k/uL PT (10.0-12.5) sec INR (<1.2) Sodium (137-145) mmol/L BUN (7-17) mg/dL Creatinine (0.52-1.04) mg/dL Calcium (8.4-10.2) mg/dL Total Bilirubin (0.2-1.3) mg/dL AST (14-36) U/L Alkaline Phosphatase (38-126) U/L Troponin I 0.064 H* 0.297 H* (0.000-0.034) ng/mL Total Protein (6.3-8.2) g/dL Albumin (3.5-5.0) g/dL Ur Specific [place] 1.037 H (1.001-1.035) Urine Protein Trace H (Negative) Assessment and Plan Assessment: 82-year-old female with advanced liver disease coming in for evaluation of sudden onset chest pain after physical therapy session today I discussed case with ED doctor accepted the admission for NSTEMI to rule out acute coronary syndrome with anticipated length of stay more than 2 midnights NSTEMI Patient reporting chest pain shortness of breath, found to have elevated tr oponin that is trending up Case discussed with on-call cardiology anticoagulation was not started due to severe thrombocytopenia Acute respiratory viral panel negative for COVID RSV and influenza Chest x-ray no acute cardiopulmonary process Troponins initial 0.064 then became 0.297 continue to trend panel monitor Monitor vital signs Gentle IV fluid hydration normal saline 75 cc/h status post 3 L boluses Continue with statin, continue with metoprolol hold medication Cardiology consult Hyponatremia sodium 131 Continue with IV fluid hydration with normal saline 75 cc/h Patient received 3 L boluses in the ED Renal function otherwise stable BUN 33 creatinine 1.19 Chronic conditions Hypotension continue with midodrine 3 times a day Systolic CHF with left ventricular ejection fraction 40% currently compensated continue home meds Advanced liver cirrhosis, bilirubin 4.2, AST 44 ALT 20 Pancytopenia hemoglobin 11.3 white count 1.6 platelet 41, continue to monitor Full code DVT prophylaxis mechanical secondary to thrombocytopenia GI prophylaxis continue Protonix
[2023-04-30] MEDS: MIDODRINE 5 MG TAB PO SCH (06:47)
[2023-04-30] MEDS: LACTULOSE 20 GM/30 ML CUP PO SCH (08:07)
[2023-04-30] MEDS: LIDOCAINE 4% PATCH TOPICAL SCH (08:07)
[2023-04-30] MEDS: METOPROLOL SUCCINATE (ER) 25 MG TAB.ER.24H PO SCH (08:08)
[2023-04-30] MEDS: PRIMIDONE 50 MG TAB PO SCH (08:08)
[2023-04-30] MEDS: CYCLOBENZAPRINE 5 MG TAB PO SCH (08:08)
[2023-04-30] MEDS: FLUTICASONE 50MCG/SPRAY NASAL 16GM EA NOSTRIL SCH (08:08)
[2023-04-30] MEDS: MAGNESIUM OXIDE 400 MG TAB PO SCH (08:08)
[2023-04-30] MEDS ORDERED: FUROSEMIDE 40 MG TAB PO SCH (09:00)
--- NOTE | 2023-04-30 09:24 | P.CRDCN ---
History of Present Illness Consult date: 04/30/23 Reason for Consult (text): Elevated troponin and chest wall pain History of present illness: History of present illness: This is this is an 82-year-old female patient of Dr. Iris Sheppard with past medical history of coronary artery disease status post prior angioplasty, chronic systolic heart failure, advanced cirrhosis with pancytopenia and fluid overload, chronic hypotension on midodrine, hypertension, hyperlipidemia. We have been asked to evaluate the patient for elevated troponin and chest wall pain. Patient states she presented to hospital due to shortness of breath and some chest discomfort. When asked about the compression fractures and rib fractures. She states that happened when she was working with physical therapy. She does not admit to any recent falls. She was recently seen by GI in the office and placed on antibiotics. Patient's blood pressure has been soft and she received IV fluid bolus of 2 L normal saline and also 3 doses of midodrine 5 mg each. EKG sinus rhythm with left bundle branch block, #2 sinus tachycardia with left bundle branch block and 120 bpm Chest x-ray: Lungs underinflated with prominent vascular and interstitial markings. Possible mild emphysema and or edema. 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 Small bilateral pleural effusions. 30 to 40% compression fracture T7 and T8 possibly acute. Acute left posterior eighth rib fracture. No pneumothorax. Thoracic aorta mildly calcified. No aneurysm or dissection. No pulmonary embolism. Severe coronary calcification. No pericardial effusion. CT angiogram of the abdomen pelvis abdominal aorta is mildly calcified. There is a 2.5 cm focal ectasia of the infrarenal aorta without aneurysm or dissection. No signs of rupture. No acute inflammatory changes. WBC 1.6, 11.3, platelet count 41. INR 1.3. Sodium 131, potassium 4.7, BUN 33, creatinine 1.19. Calcium 8. Magnesium 1.7. Total bilirubin 4.2, AST 44, ALT 20, alkaline phosphate 282. Troponin 0.064 and 0.297. Ammonia level 11. proBNP 2360. Urinalysis negative for infection. Home cardiac medications: Not confirmed Lexiscan stress test performed 02/22/2022 revealed limited exam fixed defect involving apex and inferior wall with small area of stress-induced reversible ischemia not excluded involving the inferior lateral myocardium EF 43%. Cardiac catheterization performed 07/06/[address] Ibrahim revealed occluded left circumflex in the midportion seems to be chronic occlusion and fills from the right coronary artery. Intermediate lesion involving the mid left anterior descending artery. Elevated left-sided filling pressure. Echocardiogram performed in the office on 10/09/2021 revealed EF 40 to 45%. Moderate concentric left hypertrophy. Mild aortic regurgitation. Mild to moderate mitral regurgitation. Mild tricuspid regurgitation. Normal pulmonary artery systolic pressure. Mild pulmonic regurgitation. Review Of Systems: At the time of my exam: CONSTITUTIONAL: Denies fever or chills. HEENT: Denies blurred vision, vision changes, or eye pain. Denies hemoptysis CARDIOVASCULAR: Denies chest pain. Denies orthopnea. Denies PND. Denies palpitations RESPIRATORY: Reports shortness of breath. GASTROINTESTINAL: Denies abdominal pain. Denies nausea or vomiting. HEMATOLOGIC: Denies bleeding disorders. GENITOURINARY: Denies any blood in urine. SKIN: Denies pruitis. Denies rash. Physical examination: Gen: This is an 82-year-old female in no acute distress VS: reviewed blood pressure 101/61, heart rate 85, pulse ox 93% on room air. HEENT: Head is atraumatic, normocephalic. Pupils equal, round. Sclerae is anicteric. NECK: Supple. LUNGS: Clear to auscultation. No wheezes or rhonchi. No intercostal retractions. HEART: Regular rate and rhythm. No murmur. ABDOMEN: Soft No tenderness. EXTREMITIES: No pedal edema. No calf tenderness. NEUROLOGICAL: Patient is awake, alert and oriented x3. Assessment: Chest pain, musculoskeletal in nature, acute coronary syndrome has been ruled out. Left rib fracture Compression fracture T7 and T8 Coronary artery disease status post prior angioplasty Chronic systolic heart failure Advanced cirrhosis with pancytopenia Chronic hypotension on midodrine History of hypertension Hyperlipidemia Pancytopenia Plan: Resume patient's home cardiac medications Patient is not candidate for any invasive procedure due to pancytopenia Obtain 2-D echocardiogram and Doppler study to assess cardiac structure and function Further recommendations to follow based upon clinical course Thank you kindly for this consultation. Nurse practitioner note has been reviewed, I agree with documented findings and plan of care. Patient was seen and examined. 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 Kan). 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 Date of Last Stent Placement:: 1998 Past Psychological History: No Psychological Hx Reported Smoking Status: Former smoker Past Alcohol Use History: None Reported Past Drug Use History: None Reported - Past Family History Mother Family Medical History: Cancer Additional Family Medical History / Comment(s): Breast Ca Father Family Medical History: Myocardial Infarction ([place]) Additional Family Medical History / Comment(s): @ age 86 from [place] Medications and Allergies Home Medications Medication Instructions Recorded Confirmed Type Pravastatin Sodium 80 mg PO DAILY 07/30/20 12/14/22 History Primidone [Mysoline] 50 mg PO BID 07/30/20 12/14/22 History Triamcinolone 0.1% Ointment 1 applic TOPICAL DAILY PRN 12/03/22 12/14/22 History [Kenalog 0.1% Ointment] Lactulose [Cephulac] 20 gm PO TID #2700 ml 12/08/22 12/14/22 Rx Aspirin 81 mg PO DAILY #30 tab 12/10/22 12/14/22 Rx Metoprolol Succinate (ER) [Toprol 12.5 mg PO DAILY #30 tab 12/10/22 12/14/22 Rx XL] Midodrine [ProAmatine] 5 mg PO AC-TID #90 tab 12/10/22 12/14/22 Rx Albuterol Nebulized [Ventolin 2.5 mg INHALATION RT-Q4H PRN ml 12/16/22 Rx Nebulized] Fluticasone Nasal [place] [Flonase 2 spray EA NOSTRIL DAILY ml 12/16/22 Rx Nasal [place]] Furosemide [Lasix] 40 mg PO BID #0 12/16/22 12/14/22 Rx Loratadine [Claritin] 10 mg PO DAILY tab 12/16/22 Rx Magnesium Oxide [Mag-Ox] 400 mg PO DAILY #30 tablet 12/16/22 Rx Rifaximin [Xifaxan] 550 mg PO BID tab 12/16/22 Rx guaiFENesin SYRUP 100MG/5ML 200 mg PO Q6HR PRN ml 12/16/22 Rx [Robitussin] Cyclobenzaprine [Flexeril] 5 mg PO TID #10 tab 04/26/23 Rx Ketorolac [Toradol] 10 mg PO Q8HR #15 tab 04/26/23 Rx Lidocaine 5% Patch [Lidoderm 5% 1 patch TOPICAL DAILY #5 patch 04/26/23 Rx Patch] Allergies Allergy/AdvReac Type Severity Reaction Status Date / Time cephalexin monohydrate Allergy Rash/Hives/ Verified 04/26/23 13:49 [From Keflex] Swelling codeine Allergy Rash/Hives Verified 04/26/23 13:49 doxepin Allergy Rash/Hives Verified 04/26/23 13:49 meperidine HCl [From Demerol] Allergy Rash/Hives Verified 04/26/23 13:49 methylprednisolone Allergy Rash/Hives Verified 04/26/23 13:49 [From Medrol] Opioids - Morphine Analogues Allergy Rash/Hives Verified 04/26/23 13:49 Penicillins Allergy Swelling Verified 04/26/23 13:49 over entire body pentazocine lactate Allergy Rash/Hives-Stomach Verified 04/26/23 13:49 [From Talwin] Upset propoxyphene napsylate Allergy Rash/Hives- Verified 04/26/23 13:49 [From Darvocet-N] Itch tramadol Allergy Rash/Hives Verified 04/26/23 13:49 Physical Exam Vitals: Vital Signs Temp Pulse Resp BP Pulse Ox 04/30/23 06:51 85 17 101/61 93 L 04/30/23 06:23 90 18 93/49 92 L 04/30/23 05:30 90 17 101/67 92 L 04/30/23 05:00 85 17 99/46 96 04/30/23 04:04 93 18 91/46 04/30/23 03:19 94 17 80/43 91 L 04/30/23 03:05 94 17 92 L 04/30/23 02:57 92 17 98/45 91 L 04/30/23 01:45 98 19 101/49 94 L 04/30/23 01:23 111 H 20 89/42 97 04/30/23 00:47 97.3 F L 04/30/23 00:43 104 H 19 91/46 95 04/29/23 22:45 98.3 F 125 H 24 106/55 96 Intake and Output 04/29/23 04/30/23 04/30/23 22:59 06:59 14:59 Other: Weight 58.967 kg Results 04/29/23 22:54 04/29/23 22:54 Cardiac Enzymes 04/29/23 04/29/23 04/30/23 Range/Units 22:54 22:54 01:45 AST 44 H (14-36) U/L Troponin I 0.064 H* 0.297 H* (0.000-0.034) ng/mL Coagulation 04/29/23 Range/Units 22:54 PT 13.3 H (10.0-12.5) sec APTT 23.9 (22.0-30.0) sec CBC 04/29/23 Range/Units 22:54 WBC 1.6 L (3.8-10.6) k/uL RBC 3.37 L (3.80-5.40) m/uL Hgb 11.3 L (11.4-16.0) gm/dL Hct 32.8 L (34.0-46.0) % Plt Count 41 L (150-450) k/uL Comprehensive Metabolic Panel 04/29/23 Range/Units 22:54 Sodium 131 L (137-145) mmol/L Potassium 4.7 (3.5-5.1) mmol/L Chloride 100 (98-107) mmol/L Carbon Dioxide 24 (22-30) mmol/L BUN 33 H (7-17) mg/dL Creatinine 1.19 H (0.52-1.04) mg/dL Glucose 89 (74-99) mg/dL Calcium 8.0 L (8.4-10.2) mg/dL AST 44 H (14-36) U/L ALT 20 (4-34) U/L Alkaline Phosphatase 282 H (38-126) U/L Total Protein 5.3 L (6.3-8.2) g/dL Albumin 2.6 L (3.5-5.0) g/dL Current Medications Generic Name Dose Route Start Last Admin Trade Name Freq PRN Reason Stop Dose Admin Albuterol Sulfate 2.5 mg 04/30/23 03:03 Albuterol Nebulized 2.5 Mg/3 Ml INHALATION RT-Q4H PRN Shortness Of Breath Or Wheezing Cyclobenzaprine HCl 5 mg 04/30/23 09:00 Cyclobenzaprine 5 Mg Tab PO TID RONI Etodolac 300 mg 04/30/23 08:00 Etodolac 300 Mg Capsule PO Q8HR [facility] Fluticasone Propionate 2 spray 04/30/23 09:00 Fluticasone 50mcg/[place] Nasal 16gm EA NOSTRIL DAILY [facility] Sodium Chloride 1,000 mls @ 75 mls/hr 04/30/23 03:00 04/30/23 03:10 Saline 0.9% IV 75 mls/hr .[id number] [facility] Administration Lactulose 20 gm 04/30/23 09:00 Lactulose 20 Gm/30 Ml Cup PO TID [facility] Lidocaine 1 patch 04/30/23 09:00 Lidocaine 4% Patch TOPICAL DAILY [facility] Magnesium Oxide 400 mg 04/30/23 09:00 Magnesium Oxide 400 Mg Tab PO DAILY [facility] Metoprolol Succinate 12.5 mg 04/30/23 09:00 Metoprolol Succinate (Er) 25 Mg Tab.Er.24h PO DAILY [facility] Midodrine 5 mg 04/30/23 07:30 04/30/23 06:47 Midodrine 5 Mg Tab PO Not Given AC-TID [facility] Naloxone HCl 0.2 mg 04/30/23 02:44 Naloxone 0.4 Mg/Ml 1 Ml Vial IV Q2M PRN Opioid Reversal Pravastatin Sodium 80 mg 04/30/23 09:00 Pravastatin Sodium 80 Mg Tab PO DAILY [facility] Primidone 50 mg 04/30/23 09:00 Primidone 50 Mg Tab PO BID RONI Rifaximin 550 mg 04/30/23 09:00 Rifaximin 550 Mg Tablet PO 05/30/23 09:01 BID RONI Intake and Output 04/29/23 04/30/23 04/30/23 22:59 06:59 14:59 Other: Weight 58.967 kg 04/29/23 22:54 04/29/23 22:54
[2023-04-30] MEDS: ETODOLAC 300 MG CAPSULE PO SCH (10:20)
[2023-04-30] MEDS: PRAVASTATIN SODIUM 80 MG TAB PO SCH (10:20)
[2023-04-30] MEDS: RIFAXIMIN 550 MG TABLET PO SCH (10:20)
--- NOTE | 2023-04-30 13:23 | P.PN ---
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 She presented to the emergency department on 04/30/2023 secondary to reports of chest pain and shortness of breath. Upon arrival to the emergency department, patient underwent full evaluation. Vital signs upon arrival show blood pressure 106/55, heart rate 125, respiratory rate 24, temp 98.3 F, SpO2 of 96% on room air. EKG was completed showing sinus tachycardia at 103 bpm with a left bundle branch block, patient has previously known left bundle branch block upon further chart review and comparison of EKG completed 12/14/2022. Chest x-ray completed showing underinflated lungs with prominent vascular and interstitial markings throughout both lungs consistent with mild emphysema and/or edema. CTA chest and aorta completed showing the abdominal aorta is mildly calcified with a 2.5 cm focal ectasia of the infrarenal aorta without aneurysm or dissection and no evidence of rupture, did reveal vascular congestion without overt edema, moderately enlarged heart, severe coronary calcifications, a left thyroid mass measuring 4.6 cm, multiple bilateral renal cysts with borderline splenomegaly, and revealing 30 to 40% compression fractures of T7 and T8, acute left posterior eighth rib fracture and fracture of the coronoid process of the left scapula. Labs completed and reviewed. CBC showing pancytopenia with WBC count of 1.6, hemoglobin 11.3, platelet count of 41. Coagulation profile showing elevated INR of 1.3. BMP showing hyponatremia with sodium of 131, elevated BUN of 33, creatinine 1.19, GFR 43. Liver profile showing elevated total bili of 4.2, AST of 44, ALT of 20, and alkaline phosphatase of 282. Troponin 0.064 and proBNP 2 360. Patient was admitted under our services with consultation to cardiology. Troponins trended resulting at 0.064 and 0.297. Physical exam: Vital signs reviewed and stable. General: Nontoxic, no distress and appears stated age. Derm: Skin warm and dry, jaundiced. Head: Atraumatic, normocephalic and symmetric. Eyes: EOMs intact, no lid lag, and anicteric sclera Mouth: no lip lesions, mucus membranes moist Cardiovascular: regular rate and rhythm with normal S1S2, no murmur, positive posterior tibial pulses bilaterally, and cap refill < 2 seconds. Lungs: Respirations even, regular, and unlabored on supplemental oxygen. Lungs diminished with bibasilar crackles, no rhonchi, no rales, no wheezing, and no accessory muscle usage. Abdominal: soft, nontender to palpation, no guarding, no appreciable organomegaly Ext: ROM intact. No gross muscle atrophy, scant lower extremity edema, no contractures Neuro: Speech clear, face symmetrical and CN II-XII grossly intact with no noted focal neuro deficits Psych: Alert and oriented to person, place, time, and situation. Appropriate and pleasant affect. Assessment and Plan of Care: NSTEMI Sinus tachycardia with left bundle branch block History of CAD status post stenting Hypertension Hyperlipidemia Decompensated liver cirrhosis Pancytopenia secondary to above Hyperbilirubinemia with elevated liver enzymes secondary to advanced liver cirrhosis -Cardiology consulted, stating patient is not a candidate for any invasive procedure due to her pancytopenia -Telemetry monitoring -Trend troponins -Cardiac diet -Aspirin 81 mg daily, pravastatin 80 mg daily, metoprolol 12.5 mg daily, and midodrine 5 mg 3 times daily -Lipid profile with a.m. labs. -Echocardiogram -MELD score 11 points upon admission Compression fractures of T7 and T8, acute left posterior eighth rib fracture and fracture of the coronoid process of the left scapula -Orthopedic surgery consulted, patient is not a surgical candidate but may benefit from brace -Symptomatic care and pain management. Thyroid mass -Incidental finding on CT recommend outpatient follow-up with dedicated thyroid ultrasound followed by possible biopsy if indicated CODE STATUS: Full code DVT prophylaxis: SCDs and BONNIE hose secondary to thrombocytopenia Anticipated discharge date: Clinical course to determine Anticipated discharge place: Clinical course to determine Patient was seen independently by Nurse Pracitioner. This document was prepared using [employer] dictation software. Please allow for errors in laundry laborer, while rare they do occur. This patient was seen independently by Aydin CONTRERAS. I agree with the assessment and plan done by my colleague. Objective - Vital Signs Vital signs: Vital Signs Temp 97.9 F 04/30/23 07:46 Pulse 91 04/30/23 07:46 Resp 17 04/30/23 07:46 BP 82/50 04/30/23 08:10 Pulse Ox 97 02/17/24 07:46 FiO2 Intake & Output 04/29/23 04/30/23 04/30/23 18:59 06:59 18:59 Weight 58.967 kg - Labs CBC & Chem 7: 05/01/23 07:24 05/01/23 07:24 Labs: Abnormal Lab Results - Last 24 Hours (Table) 04/29/23 04/29/23 04/29/23 Range/Units 22:54 22:54 22:54 WBC 1.6 L (3.8-10.6) k/uL RBC 3.37 L (3.80-5.40) m/uL Hgb 11.3 L (11.4-16.0) gm/dL Hct 32.8 L (34.0-46.0) % RDW 16.1 H (11.5-15.5) % Plt Count 41 L (150-450) k/uL Lymphocytes # (Manual) 0.05 L (1.0-4.8) k/uL PT 13.3 H (10.0-12.5) sec INR 1.3 H (<1.2) Sodium 131 L (137-145) mmol/L BUN 33 H (7-17) mg/dL Creatinine 1.19 H (0.52-1.04) mg/dL Calcium 8.0 L (8.4-10.2) mg/dL Total Bilirubin 4.2 H (0.2-1.3) mg/dL AST 44 H (14-36) U/L Alkaline Phosphatase 282 H (38-126) U/L Troponin I (0.000-0.034) ng/mL Total Protein 5.3 L (6.3-8.2) g/dL Albumin 2.6 L (3.5-5.0) g/dL Ur Specific [place] (1.001-1.035) Urine Protein (Negative) 04/29/23 04/30/23 04/30/23 Range/Units 22:54 01:45 03:55 WBC (3.8-10.6) k/uL RBC (3.80-5.40) m/uL Hgb (11.4-16.0) gm/dL Hct (34.0-46.0) % RDW (11.5-15.5) % Plt Count (150-450) k/uL Lymphocytes # (Manual) (1.0-4.8) k/uL PT (10.0-12.5) sec INR (<1.2) Sodium (137-145) mmol/L BUN (7-17) mg/dL Creatinine (0.52-1.04) mg/dL Calcium (8.4-10.2) mg/dL Total Bilirubin (0.2-1.3) mg/dL AST (14-36) U/L Alkaline Phosphatase (38-126) U/L Troponin I 0.064 H* 0.297 H* (0.000-0.034) ng/mL Total Protein (6.3-8.2) g/dL Albumin (3.5-5.0) g/dL Ur Specific [place] 1.037 H (1.001-1.035) Urine Protein Trace H (Negative)
--- NOTE | 2023-04-30 14:26 | CA ---
Transthoracic Echo Report Name: Gemma Rosas Age: 82 Gender: F : 1940 Exam Date: 04/30/2023 11:05 Exam Location: [facility] Ht (in): 60 Wt (lb): 130 Ordering Physician: Daya Mars Attending/Referring Phys: [id number], [employer] Dean Kika Oden RDCS Procedure CPT: Indications: LVF Cardiac Hx: Technical Quality: Fair Contrast 1: Total Dose (mL): Contrast 2: Total Dose (mL): MEASUREMENTS (Male / Female) Normal Values 2D ECHO LV Diastolic Diameter PLAX 5.8 cm 4.2 - 5.9 / 3.9 - 5.3 cm LV Systolic Diameter PLAX 4.0 cm IVS Diastolic Thickness 1.1 cm 0.6 - 1.0 / 0.6 - 0.9 cm LVPW Diastolic Thickness 1.2 cm 0.6 - 1.0 / 0.6 - 0.9 cm LV Relative Wall Thickness 0.4 RV Internal Dim ED PLAX 3.7 cm LA Systolic Diameter LX 4.5 cm 3.0 - 4.0 / 2.7 - 3.8 cm LV Diastolic Volume MOD 4C 150.7 cm??? LV Systolic Volume MOD 4C 89.5 cm??? LV Ejection Fraction MOD 4C 40.6 % LV Cardiac Index MOD 4C 3109.8 cm???/min???m??? LV Diastolic Length 4C 9.0 cm LV Systolic Length 4C 7.8 cm LV Diastolic Volume MOD 2C 244.5 cm??? LV Systolic Volume MOD 2C 149.4 cm??? LV Ejection Fraction MOD 2C 38.9 % LV Cardiac Index MOD 2C 4833.1 cm???/min???m??? LV Diastolic Length 2C 9.3 cm LV Systolic Length 2C 7.8 cm LA Volume 88.5 cm??? 18 - 58 / 22 - 52 cm??? LA Volume Index 55.5 cm???/m??? 16 - 28 cm???/m??? M-MODE Aortic Root Diameter MM 3.4 cm DOPPLER AV Peak Velocity 138.4 cm/s AV Peak Gradient 7.7 mmHg MV Area PHT 5.0 cm??? Mitral E Point Velocity 97.7 cm/s Mitral A Point Velocity 65.3 cm/s Mitral E to A Ratio 1.5 MV Deceleration Time 151.6 ms TR Peak Velocity 248.3 cm/s TR Peak Gradient 24.7 mmHg Right Ventricular Systolic Press 28.7 mmHg FINDINGS Left Ventricle Left ventricular ejection fraction is estimated at 45 %. Mildly increased septal wall thickness. Mildly increased posterior wall thickness. Moderately increased left ventricular diastolic diameter. Right Ventricle Mild right ventricular dilatation. Right ventricular systolic pressure within normal limits. Right Atrium Normal right atrial size. Left Atrium Moderately increased left atrial diameter. Severely increased left atrial volume. Mildly increased left atrial area. Mitral Valve Structurally normal mitral valve. Mitral annular calcification. Mild mitral regurgitation. Aortic Valve Trileaflet aortic valve. Aortic valve sclerosis. Thickened aortic valve without stenosis. Tricuspid Valve Structurally normal tricuspid valve. Mild tricuspid regurgitation. Pulmonic Valve Structurally normal pulmonic valve. Mild pulmonic regurgitation. Pericardium No pericardial effusion. Aorta Normal size aortic root and proximal ascending aorta. CONCLUSIONS Mild LV systolic dysfunction Severely enlarged left atrium Mild mitral regurgitation Mild tricuspid regurgitation Previewed by: Dr. Ambrosio Sheppard MD (Electronically Signed) Final Date: 30 April 2023 14:25
[2023-05-01] MEDS: ALBUTEROL NEBULIZED 2.5 MG/3 ML INHALATION PRN (00:07)
[2023-05-01 08:44] LABS: African American GFR (CKD) 33 (>60 ml/min/1.73 sqM); Anion Gap 6 mmol/L; Blood Urea Nitrogen 43 mg/dL (7-17); Calcium 7.9 mg/dL (8.4-10.2); Carbon Dioxide 23 mmol/L (22-30); Chloride 102 mmol/L (98-107); Glucose 81 mg/dL (74-99); Magnesium 2.1 mg/dL (1.6-2.3); Non-African American GFR(CKD) 29 (>60 ml/min/1.73 sqM); Potassium 4.6 mmol/L (3.5-5.1); Sodium 131 mmol/L (137-145)
[2023-05-01 08:47] LABS: Basophils % (A) 0 %; Eosinophils # (A) 0.2 k/uL (0-0.7); Eosinophils % (A) 1 %; HCT 31.2 % (34.0-46.0); HGB 10.1 gm/dL (11.4-16.0); Hypochromasia Slight; Lymphocytes # (A) 0.6 k/uL (1.0-4.8); Lymphocytes % (A) 5 %; MCH 32.3 pg (25.0-35.0); MCHC 32.5 g/dL (31.0-37.0); MCV 99.4 fL (80.0-100.0); Macrocytosis Slight; Mean Platelet Volume 10.5; Monocytes % (A) 7 %; Neutrophils # (A) 11.4 k/uL (1.3-7.7); Neutrophils % (A) 84 %; Poikilocytosis Moderate; RBC 3.14 m/uL (3.80-5.40); RDW 15.9 % (11.5-15.5); WBC 13.6 k/uL (3.8-10.6)
[2023-05-01 08:49] LABS: Platelet Count 45 k/uL (150-450)
[2023-05-01] MEDS: ASPIRIN 81 MG PO SCH (08:49)
--- NOTE | 2023-05-01 10:40 | P.PN ---
Subjective Progress Note Date: 05/01/23 Reason for Consult (text): Elevated troponin and chest wall pain History of present illness: This is this is an 82-year-old female patient of Dr. Iris Sheppard with past medical history of coronary artery disease status post prior angioplasty, chronic systolic heart failure, advanced cirrhosis with pancytopenia and fluid overload, chronic hypotension on midodrine, hypertension, hyperlipidemia. We have been asked to evaluate the patient for elevated troponin and chest wall pain. Patient states she presented to hospital due to shortness of breath and some chest discomfort. When asked about the compression fractures and rib fractures. She states that happened when she was working with physical therapy. She does not admit to any recent falls. She was recently seen by GI in the office and placed on antibiotics. Patient's blood pressure has been soft and she received IV fluid bolus of 2 L normal saline and also 3 doses of midodrine 5 mg each. EKG sinus rhythm with left bundle branch block, #2 sinus tachycardia with left bundle branch block and 120 bpm Chest x-ray: Lungs underinflated with prominent vascular and interstitial markings. Possible mild emphysema and or edema. 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 Small bilateral pleural effusions. 30 to 40% compression fracture T7 and T8 possibly acute. Acute left posterior eighth rib fracture. No pneumothorax. Thoracic aorta mildly calcified. No aneurysm or dissection. No pulmonary embolism. Severe coronary calcification. No pericardial effusion. CT angiogram of the abdomen pelvis abdominal aorta is mildly calcified. There is a 2.5 cm focal ectasia of the infrarenal aorta without aneurysm or dissection. No signs of rupture. No acute inflammatory changes. WBC 1.6, 11.3, platelet count 41. INR 1.3. Sodium 131, potassium 4.7, BUN 33, creatinine 1.19. Calcium 8. Magnesium 1.7. Total bilirubin 4.2, AST 44, ALT 20, alkaline phosphate 282. Troponin 0.064 and 0.297. Ammonia level 11. proBNP 2360. Urinalysis negative for infection. Home cardiac medications: Not confirmed Lexiscan stress test performed 02/22/2022 revealed limited exam fixed defect i nvolving apex and inferior wall with small area of stress-induced reversible ischemia not excluded involving the inferior lateral myocardium EF 43%. Cardiac catheterization performed 07/06/[address] Ibrahim revealed occluded left circumflex in the midportion seems to be chronic occlusion and fills from the right coronary artery. Intermediate lesion involving the mid left anterior descending artery. Elevated left-sided filling pressure. Echocardiogram performed in the office on 10/09/2021 revealed EF 40 to 45%. Moderate concentric left hypertrophy. Mild aortic regurgitation. Mild to moderate mitral regurgitation. Mild tricuspid regurgitation. Normal pulmonary artery systolic pressure. Mild pulmonic regurgitation. 05/01 Patient is seen in follow up. Echocardiogram with EF 45%, mild MR and TR. BP 93/49, HR 88. Echo results reviewed with patient. Physical examination: Gen: This is an 82-year-old female in no acute distress VS: reviewed HEENT: Head is atraumatic, normocephalic. Pupils equal, round. Sclerae is anicteric. . LUNGS: Clear to auscultation. No wheezes or rhonchi. No intercostal retractions. HEART: Regular rate and rhythm. No murmur. EXTREMITIES: No pedal edema. No calf tenderness. NEUROLOGICAL: Patient is awake, alert and oriented x3. Assessment: Chest pain, musculoskeletal in nature, acute coronary syndrome has been ruled out. Left rib fracture Compression fracture T7 and T8 Coronary artery disease status post prior angioplasty Chronic systolic heart failure Advanced cirrhosis with pancytopenia Chronic hypotension on midodrine History of hypertension Hyperlipidemia Pancytopenia Plan: Continue patient's home cardiac medications Patient is not candidate for any invasive procedure due to pancytopenia Cardiology will sign off this case and follow on an as-needed basis. Please reconsult for any new concerns. Patient may follow-up in the office in one to 2 weeks. Nurse practitioner note has been reviewed, I agree with documented findings and plan of care. Patient was seen and examined. Objective - Vital Signs Vital signs: Vital Signs Temp 97.3 F L 05/01/23 08:45 Pulse 88 05/01/23 08:45 Resp 17 05/01/23 08:45 BP 93/49 05/01/23 08:45 Pulse Ox 93 L 05/01/23 08:45 FiO2 Intake & Output 04/30/23 05/01/23 05/01/23 18:59 06:59 18:59 Intake Total 457 118 Balance 457 118 Weight 58.967 kg Intake: Oral 457 118 Other: Voiding Method Bedside Commode Bedside Commode Bedside Commode # Voids 1 1 # Bowel Movements 1 - Labs CBC & Chem 7: 05/01/23 07:24 05/01/23 07:24 Labs: Abnormal Lab Results - Last 24 Hours (Table) 04/30/23 04/30/23 05/01/23 Range/Units 07:38 10:06 07:24 WBC 13.6 H (3.8-10.6) k/uL RBC 3.14 L (3.80-5.40) m/uL Hgb 10.1 L (11.4-16.0) gm/dL Hct 31.2 L (34.0-46.0) % RDW 15.9 H (11.5-15.5) % Plt Count 45 L (150-450) k/uL Neutrophils # 11.4 H (1.3-7.7) k/uL Lymphocytes # 0.6 L (1.0-4.8) k/uL Sodium (137-145) mmol/L BUN (7-17) mg/dL Creatinine (0.52-1.04) mg/dL Calcium (8.4-10.2) mg/dL Troponin I 1.370 H* 1.640 H* (0.000-0.034) ng/mL 05/01/23 Range/Units 07:24 WBC (3.8-10.6) k/uL RBC (3.80-5.40) m/uL Hgb (11.4-16.0) gm/dL Hct (34.0-46.0) % RDW (11.5-15.5) % Plt Count (150-450) k/uL Neutrophils # (1.3-7.7) k/uL Lymphocytes # (1.0-4.8) k/uL Sodium 131 L (137-145) mmol/L BUN 43 H (7-17) mg/dL Creatinine 1.66 H (0.52-1.04) mg/dL Calcium 7.9 L (8.4-10.2) mg/dL Troponin I (0.000-0.034) ng/mL
--- NOTE | 2023-05-01 13:37 | P.CNOR ---
History of Present Illness - [facility] Consult date: 05/01/23 Consult reason: back pain, other (T7-T8 compression fractures) History of present illness: History of Presenting Illness Patient is a pleasant 82-year-old female who had presented to the ER due to chest wall pain. Patient was admitted to [facility] for NSTEMI to rule out acute coronary syndrome. Our services have been consulted due to increased back pain and T7-T8 compression fractures. Patient reports that she has had this chest wall pain for at least 2 weeks and that is exacerbated with activity. She states that she was evaluated earlier this weekand was diagnosed with muscle spasms. Patient reports that her pain radiates around from her back and towards the middle of her chest. Patient denies any falls or injuries. Patient states that her pain is exacerbated with movement of her upper extremities. Patient reports that she does live with her spouse and that her daughter does come in to help with any needed assistance. Patient denies any spinal surgeries. Patient was seen and examined this morning. Patient was resting comfortably in bed. She does report that her back pain has improved since admission. Discussed CTA incidental findings of compression fractures of T7 and T8, acute left posterior eighth rib fracture and fracture of the coronoid process of the left scapula. Discussed with patient her nonsurgical options due to patients current medical status, she is not a surgical candidate. Patient verbalizes understanding. Patient denies any radicular symptoms or numbness or tingling into the bilateral upper extremities. Review of Systems Pertinent positives and negatives as discussed in HPI, a complete review of systems was performed and all other systems are negative. Physical Examination General: The patient is awake and alert, in no acute distress Skin: Skin is warm and dry with no obvious rashes or lesions. Eye: Pupils are equal, round and reactive to light, extra-ocular movements are intact; there is normal conjunctiva bilaterally. Neck: The neck is supple, there is no tenderness and ROM intact. Gastrointestinal: Soft, non-distended, non-tender abdomen. Back: There is mild tenderness to palpation in the parathoracic region. There is no obvious deformity. Musculoskeletal: ROM limited secondary to pain and stiffness. Shoulder abduction 4/5, elbow flexors 4/5, wrist dorsiflexors 4/5. finger abductor 4/5, project engineering manager 4/5, hip flexor 4/5, knee flexor 4/5, ankle dorsiflexor 4/5, ankle plantarflexion 4/5 and extensor hallucis 4/5. Neurological: CN 2-12 intact. There are no obvious motor or sensory deficits. Movement and coordination equal and intact. Sensory exam to light touch intact C5-T1 and intact from L2-S1. Reflexes 2/4 in bilateral upper and lower extremities. Negative Hoffmans, babinski, and clonus signs. Psychiatric: Cooperative, appropriate mood & affect, normal judgment. Assessment and Plan Thoracic spondylosis T7-T8 acute versus subacute compression fractures Left eighth rib fracture Coronoid process fracture of the left scapula Multiple complex comorbidities At this time we do not recommend any emergent/urgent orthopedic surgical intervention. Patient may follow-up with Dr. Goodson office for further evaluation as needed. Orthopedics is signing off at this time. Please do not hesitate to contact us for any further questions. 2. Appreciate medical management 3. Prescription for TLSO brace has been placed in chart 3. Pain management - Continue with conservative measures, Ice/heat therapies 6. PT/OT - weightbearing as tolerated with a walker. 7. Appreciate consult I reviewed and discussed this case with my attending Dr. Goodson, whom has reviewed this chart and films and is in agreement with assessment and plan of care as outlined above. I have personally seen and examined the patient, performed the documentation and the assessment and plan as written. Number of minutes spent on the visit: 30m. Past Medical History Past Medical History: Blood Disorder, Coronary Artery Disease (CAD), Heart Failure, GERD/Reflux, Hyperlipidemia, Hypertension, Liver Disease, Myocardial Infarction (MA), Osteoarthritis (OA) Additional Past Medical History / Comment(s): 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 Kan). 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 Freq. platelet transfusion with most procedures. Date of Last Stent Placement:: 1998 Past Psychological History: No Psychological Hx Reported Smoking Status: Former smoker Past Alcohol Use History: None Reported Additional Past Alcohol Use History / Comment(s): smokes maybe weekly- 1-2 cigarettes- had smoked and quit for 12 yrs and started up about 5 yrs ago again Past Drug Use History: None Reported - Past Family History Mother Family Medical History: Cancer Additional Family Medical History / Comment(s): Breast Ca Father Family Medical History: Myocardial Infarction ([place]) Additional Family Medical History / Comment(s): @ age 86 from [place] Medications and Allergies Home Medications Medication Instructions Recorded Confirmed Type Pravastatin Sodium 80 mg PO DAILY 07/30/20 04/30/23 History Primidone [Mysoline] 50 mg PO BID 07/30/20 04/30/23 History Triamcinolone 0.1% Ointment 1 applic TOPICAL DAILY PRN 12/03/22 04/30/23 History [Kenalog 0.1% Ointment] Metoprolol Succinate (ER) [Toprol 12.5 mg PO DAILY #30 tab 12/10/22 04/30/23 Rx XL] Midodrine [ProAmatine] 5 mg PO AC-TID #90 tab 12/10/22 04/30/23 Rx Furosemide [Lasix] 40 mg PO BID #0 12/16/22 04/30/23 Rx Ketorolac [Toradol] 10 mg PO Q8HR #15 tab 04/26/23 04/30/23 Rx Lidocaine 5% Patch [Lidoderm 5% 1 patch TOPICAL DAILY #5 patch 04/26/23 04/30/23 Rx Patch] Ampicillin 500mg Capsule 500 mg PO DAILY 04/30/23 04/30/23 History Clotrimazole/Betameth Cream 1 applic TOPICAL BID 04/30/23 04/30/23 History [Lotrisone] Cyclobenzaprine [Flexeril] 10 mg PO TID PRN 04/30/23 04/30/23 History Lactulose [Constulose] 30 gm PO TID 04/30/23 04/30/23 History Allergies Allergy/AdvReac Type Severity Reaction Status Date / Time cephalexin monohydrate Allergy Rash/Hives/ Verified 04/30/23 12:21 [From Keflex] Swelling codeine Allergy Rash/Hives Verified 04/30/23 12:21 doxepin Allergy Rash/Hives Verified 04/30/23 12:21 meperidine HCl [From Demerol] Allergy Rash/Hives Verified 04/30/23 12:21 methylprednisolone Allergy Rash/Hives Verified 04/30/23 12:21 [From Medrol] Opioids - Morphine Analogues Allergy Rash/Hives Verified 04/30/23 12:21 Penicillins Allergy Swelling Verified 04/30/23 12:21 over entire body pentazocine lactate Allergy Rash/Hives-Stomach Verified 04/30/23 12:21 [From Talwin] Upset propoxyphene napsylate Allergy Rash/Hives- Verified 04/30/23 12:21 [From Darvocet-N] Itch tramadol Allergy Rash/Hives Verified 04/30/23 12:21 ketorolac [From Toradol] AdvReac Hallucinati Verified 04/30/23 12:27 ons Results - Labs Labs: Abnormal Lab Results - Last 24 Hours (Table) 04/30/23 04/30/23 Range/Units 07:38 10:06 Troponin I 1.370 H* 1.640 H* (0.000-0.034) ng/mL H & H 04/29/23 Range/Units 22:54 Hgb 11.3 L (11.4-16.0) gm/dL Hct 32.8 L (34.0-46.0) % Coagulation 04/29/23 Range/Units 22:54 INR 1.3 H (<1.2) Result Diagrams: 05/01/23 07:24 05/01/23 07:24
--- NOTE | 2023-05-01 15:10 | P.PN ---
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 She presented to the emergency department on 04/30/2023 secondary to reports of chest pain and shortness of breath. Upon arrival to the emergency department, patient underwent full evaluation. Vital signs upon arrival show blood pressure 106/55, heart rate 125, respiratory rate 24, temp 98.3 F, SpO2 of 96% on room air. EKG was completed showing sinus tachycardia at 103 bpm with a left bundle branch block, patient has previously known left bundle branch block upon further chart review and comparison of EKG completed 12/14/2022. Chest x-ray completed showing underinflated lungs with prominent vascular and interstitial markings throughout both lungs consistent with mild emphysema and/or edema. CTA chest and aorta completed showing the abdominal aorta is mildly calcified with a 2.5 cm focal ectasia of the infrarenal aorta without aneurysm or dissection and no evidence of rupture, did reveal vascular congestion without overt edema, moderately enlarged heart, severe coronary calcifications, a left thyroid mass measuring 4.6 cm, multiple bilateral renal cysts with borderline splenomegaly, and revealing 30 to 40% compression fractures of T7 and T8, acute left posterior eighth rib fracture and fracture of the coronoid process of the left scapula. Labs completed and reviewed. CBC showing pancytopenia with WBC count of 1.6, hemoglobin 11.3, platelet count of 41. Coagulation profile showing elevated INR of 1.3. BMP showing hyponatremia with sodium of 131, elevated BUN of 33, creatinine 1.19, GFR 43. Liver profile showing elevated total bili of 4.2, AST of 44, ALT of 20, and alkaline phosphatase of 282. Troponin 0.064 and proBNP 2 360. Patient was admitted under our services with consultation to cardiology. Troponins trended resulting at 0.064, 0.297, 1.370, and 1.640. Cardiology evaluating stating patient is not a candidate for any invasive procedures due to her pancytopenia. Echocardiogram completed showing reduced EF of 45% with severely enlarged left atrium and mild mitral and tricuspid regurgitation. Physical exam: Patient seen and fully evaluated at bedside this morning. She reports continued mild pressure to midsternal chest but reports it is improving and currently rates 2-3 out of 10 at this time. She denies having any headache, lightheadedness, dizziness, palpitations, shortness of breath, or experiencing any numbness/tingling/weakness/swelling in her extremities. Vital signs reviewed and stable. General: Nontoxic, no distress and appears stated age. Derm: Skin warm and dry, jaundiced. Head: Atraumatic, normocephalic and symmetric. Eyes: EOMs intact, no lid lag, and anicteric sclera Mouth: no lip lesions, mucus membranes moist Cardiovascular: regular rate and rhythm with normal S1S2, no murmur, positive posterior tibial pulses bilaterally, and cap refill < 2 seconds. Lungs: Respirations even, regular, and unlabored on supplemental oxygen. Lungs diminished with bibasilar crackles, no rhonchi, no rales, no wheezing, and no accessory muscle usage. Abdominal: soft, nontender to palpation, no guarding, no appreciable organomegaly Ext: ROM intact. No gross muscle atrophy, scant lower extremity edema, no contractures Neuro: Speech clear, face symmetrical and CN II-XII grossly intact with no noted focal neuro deficits Psych: Alert and oriented to person, place, time, and situation. Appropriate and pleasant affect. Assessment and Plan of Care: NSTEMI Sinus tachycardia with left bundle branch block Acute kidney injury, possibly secondary to cardiorenal syndrome vs hypoperfusion resulting from hypotension History of CAD status post stenting Hypertension Hyperlipidemia Decompensated liver cirrhosis Pancytopenia secondary to above Hyperbilirubinemia with elevated liver enzymes secondary to advanced liver cirrhosis -Cardiology consulted, stating patient is not a candidate for any invasive procedure due to her pancytopenia -Acute kidney injury possibly secondary to cardiorenal syndrome vs hypoperfusion resulting from hypotension. Blood pressures improved. Patient started on gentle IV fluid hydration with 0.9% normal saline at 50 cc/h. Will repeat morning BMP to monitor for improvement/resolution. -Telemetry monitoring -Trend troponins -Cardiac diet -Aspirin 81 mg daily, pravastatin 80 mg daily, metoprolol 12.5 mg daily, and midodrine 5 mg 3 times daily -Lipid profile with a.m. labs. -Echocardiogram completed showing reduced EF of 45% with severely enlarged left atrium and mild mitral and tricuspid regurgitation. -MELD score 11 points upon admission Compression fractures of T7 and T8, acute left posterior eighth rib fracture and fracture of the coronoid process of the left scapula -Orthopedic surgery consulted, patient is not a surgical candidate but may benefit from brace -Symptomatic care and pain management. Thyroid mass -Incidental finding on CT recommend outpatient follow-up with dedicated thyroid ultrasound followed by possible biopsy if indicated. Data and imaging reviewed: Vital signs reviewed. Blood pressure 93/49, heart rate 88, respiratory rate 17, temp 97.3 F, SpO2 of 93% on room air. Morning labs reviewed. CBC showing leukocytosis with WBC count of 13.6, hemoglobin 10.1, and platelet count of 45. BMP showing hyponatremia with sodium of 131 and acute kidney injury with BUN of 43, creatinine 1.66, and GFR of 29. CODE STATUS: Full code DVT prophylaxis: SCDs and BONNIE hose secondary to thrombocytopenia Anticipated discharge date: Clinical course to determine Anticipated discharge place: Clinical course to determine Patient was seen independently by Nurse Pracitioner. This document was prepared using [employer] dictation software. Please allow for errors in mill washer, while rare they do occur. This patient was seen independently by Aydin CONTRERAS. I agree with the assessment and plan done by my colleague. Objective - Vital Signs Vital signs: Vital Signs Temp 97.2 F L 05/01/23 04:00 Pulse 89 05/01/23 04:00 Resp 18 05/01/23 04:00 BP 99/44 05/01/23 04:00 Pulse Ox 96 05/01/23 04:00 FiO2 Intake & Output 04/30/23 05/01/23 05/01/23 18:59 06:59 18:59 Intake Total 457 118 Balance 457 118 Weight 58.967 kg Intake: Oral 457 118 Other: Voiding Method Bedside Commode Bedside Commode # Voids 1 1 # Bowel Movements 1 - Labs CBC & Chem 7: 05/01/23 07:24 05/01/23 07:24 Labs: Abnormal Lab Results - Last 24 Hours (Table) 04/30/23 04/30/23 Range/Units 07:38 10:06 Troponin I 1.370 H* 1.640 H* (0.000-0.034) ng/mL
[2023-05-01] MEDS: SODIUM CHLORIDE 0.9% 1,000 ML IV SCH (16:10)
[2023-05-01] MEDS: NYSTATIN 100,000 UNIT/GM POWD 15 GM TOPICAL SCH (17:33)
[2023-05-02 08:08] LABS: Anisocytosis Slight; HCT 31.1 % (34.0-46.0); HGB 10.3 gm/dL (11.4-16.0); Hypochromasia Slight; MCH 32.8 pg (25.0-35.0); MCHC 32.9 g/dL (31.0-37.0); MCV 99.7 fL (80.0-100.0); Macrocytosis Slight; Mean Platelet Volume 9.8; Poikilocytosis Moderate; RBC 3.12 m/uL (3.80-5.40); WBC 9.5 k/uL (3.8-10.6)
[2023-05-02 08:30] LABS: Platelet Count 40 k/uL (150-450)
[2023-05-02 08:51] LABS: ALT 18 U/L (4-34); AST 32 U/L (14-36); African American GFR (CKD) 29 (>60 ml/min/1.73 sqM); Albumin 2.1 g/dL (3.5-5.0); Alkaline Phosphatase 262 U/L (38-126); Anion Gap 8 mmol/L; Blood Urea Nitrogen 48 mg/dL (7-17); Calcium 7.9 mg/dL (8.4-10.2); Carbon Dioxide 20 mmol/L (22-30); Chloride 101 mmol/L (98-107); Glucose 55 mg/dL (74-99); Magnesium 2.2 mg/dL (1.6-2.3); Non-African American GFR(CKD) 26 (>60 ml/min/1.73 sqM); Potassium 4.8 mmol/L (3.5-5.1); Sodium 129 mmol/L (137-145); Total Bilirubin 4.7 mg/dL (0.2-1.3); Total Protein 4.7 g/dL (6.3-8.2)
[2023-05-02] MEDS ORDERED: DEXTROSE 50% SYRINGE 50 ML IVP PRN ×2 (13:04)
--- NOTE | 2023-05-02 13:14 | P.PN ---
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 She presented to the emergency department on 04/30/2023 secondary to reports of chest pain and shortness of breath. Upon arrival to the emergency department, patient underwent full evaluation. Vital signs upon arrival show blood pressure 106/55, heart rate 125, respiratory rate 24, temp 98.3 F, SpO2 of 96% on room air. EKG was completed showing sinus tachycardia at 103 bpm with a left bundle branch block, patient has previously known left bundle branch block upon further chart review and comparison of EKG completed 12/14/2022. Chest x-ray completed showing underinflated lungs with prominent vascular and interstitial markings throughout both lungs consistent with mild emphysema and/or edema. CTA chest and aorta completed showing the abdominal aorta is mildly calcified with a 2.5 cm focal ectasia of the infrarenal aorta without aneurysm or dissection and no evidence of rupture, did reveal vascular congestion without overt edema, moderately enlarged heart, severe coronary calcifications, a left thyroid mass measuring 4.6 cm, multiple bilateral renal cysts with borderline splenomegaly, and revealing 30 to 40% compression fractures of T7 and T8, acute left posterior eighth rib fracture and fracture of the coronoid process of the left scapula. Labs completed and reviewed. CBC showing pancytopenia with WBC count of 1.6, hemoglobin 11.3, platelet count of 41. Coagulation profile showing elevated INR of 1.3. BMP showing hyponatremia with sodium of 131, elevated BUN of 33, creatinine 1.19, GFR 43. Liver profile showing elevated total bili of 4.2, AST of 44, ALT of 20, and alkaline phosphatase of 282. Troponin 0.064 and proBNP 2 360. Patient was admitted under our services with consultation to cardiology. Troponins trended resulting at 0.064, 0.297, 1.370, and 1.640. Cardiology evaluating stating patient is not a candidate for any invasive procedures due to her pancytopenia. Echocardiogram completed showing reduced EF of 45% with severely enlarged left atrium and mild mitral and tricuspid regurgitation. Physical exam: Patient seen and fully evaluated at bedside this morning. Patient has always been somewhat of a poor historian but appears to be slightly more confused this morning. Blood glucose levels were low at 55 but confusion did not resolve after eating breakfast. Patient currently alert to person and place but confused to time and situation. Patient's daughter reports earlier this morning patient was having visual hallucinations seeing a man in her room but currently patient denies. Vital signs reviewed and stable. General: Nontoxic, no distress and appears stated age. Derm: Skin warm and dry, jaundiced. Head: Atraumatic, normocephalic and symmetric. Eyes: EOMs intact, no lid lag, and anicteric sclera Mouth: no lip lesions, mucus membranes moist Cardiovascular: regular rate and rhythm with normal S1S2, no murmur, positive posterior tibial pulses bilaterally, and cap refill < 2 seconds. Lungs: Respirations even, regular, and unlabored on supplemental oxygen. Lungs diminished with bibasilar crackles, no rhonchi, no rales, no wheezing, and no accessory muscle usage. Abdominal: soft, nontender to palpation, no guarding, no appreciable organomegaly Ext: ROM intact. No gross muscle atrophy, scant lower extremity edema, no contractures Neuro: Speech clear, face symmetrical and CN II-XII grossly intact with no noted focal neuro deficits Psych: Alert and oriented to person and place, confused to time and situation. Appropriate and pleasant affect. Per daughter pt was having visual hallucinations earlier this morning. Currently pt denies. Assessment and Plan of Care: NSTEMI, type II possibly secondary to hypoperfusion resulting from hypotension Acute kidney injury, possibly secondary to cardiorenal syndrome vs hypoperfusion resulting from hypotension Sinus tachycardia with left bundle branch block History of CAD status post stenting Hypertension Hyperlipidemia Decompensated liver cirrhosis Pancytopenia secondary to above Hyperbilirubinemia with elevated liver enzymes secondary to advanced liver cirrhosis -Cardiology consulted, stating patient is not a candidate for any invasive procedure due to her pancytopenia and have signed off of patient -Acute kidney injury possibly secondary to cardiorenal syndrome vs hypoperfusion resulting from hypotension. Blood pressures improved. Urinalysis negative .Patient started on gentle IV fluid hydration with 0.9% normal saline at 50 cc/h. Renal ultrasound ordered. -Will repeat morning BMP to monitor for improvement/resolution of acute kidney injury, if no improvement will place consult to nephrology. -Telemetry monitoring -Cardiac diet -Continue aspirin 81 mg daily, pravastatin 80 mg daily, metoprolol 12.5 mg daily, and midodrine 5 mg 3 times daily -Lipid profile with a.m. labs. -Echocardiogram completed showing reduced EF of 45% with severely enlarged left atrium and mild mitral and tricuspid regurgitation. -MELD score 11 points upon admission -Ammonia level < 9 Metabolic encephalopathy, likely hypoglycemic event -Believed to hypoglycemic event as patient's blood glucose was 55 this morning, but did not resolve after eating breakfast therefor differential diagnosis must be ruled out including hospital delirium vs hyperammonemia vs adverse effect of medication, Flexeril vs acute kidney injury vs other neurological condition. -Blood glucose checks ordered every 4 hours and patient placed on glycemic protocol with 25 mL or half an amp of D5 for blood glucose levels 50-70 and 50 mL or 1 amp of D5 for blood glucose levels less than 50. -Urinalysis is negative. -Ammonia less than 9 -Flexeril discontinued. -CT brain without contrast ordered -Fall precautions in place. -Provide safe and supportive care with redirection/assistance as needed. Compression fractures of T7 and T8, acute left posterior eighth rib fracture and fracture of the coronoid process of the left scapula -Orthopedic surgery consulted, patient is not a surgical candidate but may benefit from brace -Symptomatic care and pain management. Thyroid mass -Incidental finding on CT recommend outpatient follow-up with dedicated thyroid ultrasound followed by possible biopsy if indicated. Data and imaging reviewed: Vital signs reviewed. Blood pressure 96/44, heart rate 92, respiratory rate 18, temp 97.6 F, and SpO2 of 97% on room air. Morning labs reviewed. CBC showing stable bicytopenia with hemoglobin of 10.3 and platelet count of 40. BMP showing sodium 129 and worsening renal function with BUN of 48, creatinine 1.83, and GFR of 26. Blood glucose low at 55 this morning. Orders placed for blood glucose monitoring every 4 hours and patient placed on glycemic protocol CODE STATUS: Full code DVT prophylaxis: SCDs and BONNIE hose secondary to thrombocytopenia Anticipated discharge date: Clinical course to determine Anticipated discharge place: Clinical course to determine, physical therapy stating patient will likely need rehab Patient was seen independently by Nurse Pracitioner. This document was prepared using [employer] dictation software. Please allow for errors in puppet developer, while rare they do occur. This patient was seen independently by my colleague Aydin CONTRERAS. I agree with the assessment and plan. Objective - Vital Signs Vital signs: Vital Signs Temp 97.6 F 05/02/23 04:00 Pulse 92 05/02/23 04:00 Resp 18 05/02/23 04:00 BP 96/44 05/02/23 04:00 Pulse Ox 97 05/02/23 04:00 FiO2 Intake & Output 05/01/23 05/02/23 05/02/23 18:59 06:59 18:59 Intake Total 720 100 Balance 720 100 Intake: Oral 720 100 Other: Voiding Method Bedside Commode Bedside Commode # Voids 1 # Bowel Movements 1 1 - Labs CBC & Chem 7: 05/03/23 10:59 05/03/23 10:59 Labs: Abnormal Lab Results - Last 24 Hours (Table) 05/01/23 05/01/23 Range/Units 07:24 07:24 WBC 13.6 H (3.8-10.6) k/uL RBC 3.14 L (3.80-5.40) m/uL Hgb 10.1 L (11.4-16.0) gm/dL Hct 31.2 L (34.0-46.0) % RDW 15.9 H (11.5-15.5) % Plt Count 45 L (150-450) k/uL Neutrophils # 11.4 H (1.3-7.7) k/uL Lymphocytes # 0.6 L (1.0-4.8) k/uL Sodium 131 L (137-145) mmol/L BUN 43 H (7-17) mg/dL Creatinine 1.66 H (0.52-1.04) mg/dL Calcium 7.9 L (8.4-10.2) mg/dL
--- NOTE | 2023-05-02 13:55 | CT ---
EXAMINATION TYPE: CT brain wo con DATE OF EXAM: 05/02/2023 COMPARISON: 12/06/2022 HISTORY: family concerned pt more confused CT DLP: 1099.4 mGycm Automated exposure control for dose reduction was used. FINDINGS: Ventricles and basal cisterns are within normal limits for the patient's age. There is moderate corti uziel atrophy. There is mild decreased density in the periventricular white matter consistent with mild chronic isch emic white matter demyelination. There is remote lacunar infarct in the region of the left basal ganglia which is stable. There is no acute intra or extra-axial hemorrhage. The posterior fossa is grossly normal. The intraorbital contents appear normal and symmetric. Visualized paranasal sinuses and mastoid air cells are well aerated. IMPRESSION: 1. No acute bleed or mass effect. 2. Moderate cortical atrophy. 3. Stable remote lacunar infarct left basal ganglia. 4 no significant interval change.
--- NOTE | 2023-05-02 15:53 | US ---
EXAMINATION TYPE: US kidneys/renal and bladder DATE OF EXAM: 05/02/2023 COMPARISON: CT 2 days ago CLINICAL INDICATION: Female, 82 years old with history of SCOOTER; SCOOTER EXAM MEASUREMENTS: Right Kidney: 10.0x4.4x5.7 cm Left Kidney: 8.4x4.5x4.5 cm Right Kidney: No hydronephrosis or masses seen Left Kidney: largest cyst measures 3.9 cm. No hydronephrosis or nephrolithiasis Bladder: poorly distended Bilateral Jets seen: unable to obtain duane to flash artifact There is cortical lobulation renal cortex measures within normal limits for thickness and echogenicit y anechoic 3.9 cm left renal cyst incidentally noted. Exam limited by patient cooperation, difficulty breathing, bowel gas, and body habitus. Bladder limit ed due to incomplete distention and artifact. Incidental note made of splenomegaly. IMPRESSION: 1. No hydronephrosis or nephrolithiasis. Nondiagnostic assessment of the bladder due to artifact and incomplete distention.. 2. Simple appearing large left renal cyst measuring 3.9 cm. Other renal lesions reported by CT scan i ncluding a isodense lesion bilaterally are not seen by ultrasound and would recommend follow-up MRI. 3. Incidental note made of splenomegaly.
[2023-05-02 16:35] LABS: Glucose,Whole Blood 138 mg/dL (70-110)
[2023-05-02 20:20] LABS: Glucose,Whole Blood 153 mg/dL (70-110)
[2023-05-02 21:49] LABS: Amorphous Sediment,Urine Rare /hpf; Appearance,Urine Cloudy (Clear); Bacteria,Urine Moderate /hpf; Bilirubin,Urine 2+ (Negative); Blood,Urine Trace (Negative); Color,Urine Yellow; Glucose,Urine (UA) Negative (Negative); Hyaline Casts,Urine 48 /lpf (0-2); Ketones,Urine Negative (Negative); Leukocyte Esterase,Urine Moderate (Negative); Mucus,Urine Rare /hpf; Nitrite,Urine Negative (Negative); Protein,Urine 1+ (Negative); RBC,Urine 7 /hpf (0-5); Specific Gravity,Urine 1.025 (1.001-1.035); Squamous Epithelial Cell,Urine 83 /hpf (0-4); WBC,Urine 16 /hpf (0-5)
[2023-05-02] MEDS: ACETAMINOPHEN TAB 500 MG TAB PO STA (21:52)
[2023-05-02] MEDS: PRAVASTATIN SODIUM 80 MG TAB PO SCH (21:58)
[2023-05-02] MEDS ORDERED: LEVOFLOXACIN 500MG-D5W PMX 500 MG in DEXTROSE/WATER 1 100ML.BAG IVPB SCH (23:00)
[2023-05-02] MEDS: AMOXICILLIN 875 MG TAB PO SCH (23:39)
[2023-05-02] MEDS: LEVOFLOXACIN 500MG-D5W PMX 500 MG in DEXTROSE/WATER 1 100ML.BAG IVPB SCH (23:40)
[2023-05-03 00:08] LABS: Glucose,Whole Blood 134 mg/dL (70-110)
[2023-05-03] MEDS: SODIUM CHLORIDE 0.9% 500 ML 500 ML IV ONE ×2 (05:13→22:06)
[2023-05-03 06:12] LABS: Glucose,Whole Blood 85 mg/dL (70-110)
[2023-05-03] MEDS: LACTULOSE 20 GM/30 ML CUP PO SCH (09:01)
[2023-05-03] MEDS: AMIODARONE 200 MG TAB PO SCH (09:02)
[2023-05-03] MEDS: ONDANSETRON 4 MG/2 ML VIAL IVP PRN (10:07)
--- NOTE | 2023-05-03 11:03 | P.PN ---
Subjective Progress Note Date: 05/03/23 Hospital Course: 82-year-old female with history of liver cirrhosis, CAD status post stent, chronic systolic heart failure, hypertension, dyslipidemia, chronic pancytopenia, ITP presented with chest pain and shortness of breath. On initial presentation, patient was tachycardic, tachypneic, saturating well on room air. EKG showed sinus tachycardia with known left bundle branch block. Chest x-ray showed pulmonary vascular interstitial markings. 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 CBC showing pancytopenia with WBC count of 1.6, hemoglobin 11.3, platelet count of 41. Coagulation profile showing elevated INR of 1.3. BMP showing hyponatremia with sodium of 131, elevated BUN of 33, creatinine 1.19, GFR 43. Liver profile showing elevated total bili of 4.2, AST of 44, ALT of 20, and alkaline phosphatase of 282. Troponin 0.064 and proBNP 2360. Troponin continues to uptrend. Cardiology was consulted. No invasive procedures recommended by cardiology. Echocardiogram showed mild LV systolic function, severely enlarged left atrium. Orthopedic surgery was consulted, not recommending any interventions. Patient did get slightly more encephalopathic yesterday, and had low blood sugars, previous urinalysis was positive, urine culture was positive for ESBL. Repeat urinalysis shows a dirty sample. However, ID is consulted, patient is on IV antibiotics. Subjective: Patient seen and examined at bedside. No acute events overnight. Pertinent positives and negatives as discussed above, a complete review of systems was performed and all other systems are negative. Vitals Signs Reviewed. General: Nontoxic, no distress, appears at stated age Derm: Warm, dry, jaundice Head: Atraumatic, normocephalic, symmetric Eyes: EOMI, no lid lag, scleral icterus Mouth: No lip lesion, mucus membranes moist Cardiovascular: S1S2 reg, no murmur Lungs: CTA bilateral, no rhonchi, no rales, no accessory muscle use Abdominal: Soft, nontender to palpation, no guarding, no appreciable organomegaly Ext: No gross muscle atrophy, no edema, no contractures Neuro: CN II-XI grossly intact, no focal neuro deficits Psych: Alert, oriented x 2, appropriate affect Data Reviewed Today: Pertinent Labs: CBC and CMP pending, will be reviewed when available. Blood sugar this morning was 85. Urinalysis showed negative nitrites, positive leukocyte esterase, 83 squamous epithelial cells Imaging: Renal ultrasound shows a simple appearing large left renal cyst measuring 3.9 cm, other renal lesions including an isodense lesion bilaterally are not seen by ultrasound, recommended MRI follow-up, no hydronephrosis or nephrolithiasis. Brain CT shows moderate cortical atrophy, no acute process. Assessment and Plan: Patient is severely ill, prognosis guarded Active: Acute metabolic encephalopathy Acute kidney injury Hyponatremia Questionable urinary tract infection, with ESBL Isolated hypoglycemia Liver cirrhosis Pancytopenia Hyperbilirubinemia -Repeat CBC, CMP, magnesium pending -Ammonia level ordered -Continue glucose monitoring every 4 hours -IV fluids discontinued -Blood sugars within normal range -Holding Lasix at the moment, depending on labs, will restart -ID was consulted overnight, patient started on ertapenem 0.5 g daily IV -Repeat urinalysis pending as previous urinalysis was contaminated with significant squamous epithelial cells -Unclear why patient is on primidone, currently on 50 mg twice daily -Also on midodrine 5 AC 3 times daily -Lactulose 30 g 3 times daily, titrate to 2-3 bowel movements per day NSTEMI, likely type II Sinus tachycardia History of CAD status post stent -Cardiology recommending medical management -Continue aspirin 81 mg, on pravastatin 80 mg -Cardiology also started amiodarone 200 twice daily -Continue home metoprolol 12.5 daily Compression fracture of T7 and T8 Acute left posterior eighth rib fracture Fracture of the coronoid process of the left scapula -Orthopedic surgery signed off, patient not a surgical candidate Thyroid mass -Outpatient follow-up DVT ppx: Patient is thrombocytopenic Code status: Full code Anticipated discharge place: Pending clinical course Anticipated discharge time: Pending clinical course Objective - Vital Signs Vital signs: Vital Signs Temp 97.9 F 05/03/23 09:00 Pulse 113 H 05/03/23 09:00 Resp 19 05/03/23 09:00 BP 85/43 05/03/23 09:00 Pulse Ox 99 05/03/23 09:00 FiO2 Intake & Output 05/02/23 05/03/23 05/03/23 18:59 06:59 18:59 Intake Total 200 120 180 Balance 200 120 180 Intake: Oral 200 120 180 Other: Voiding Method Bedside Commode Bedside Commode # Voids 2 # Bowel Movements 1 - Labs CBC & Chem 7: 05/02/23 07:39 05/02/23 07:39 Labs: Abnormal Lab Results - Last 24 Hours (Table) 05/02/23 05/02/23 05/02/23 Range/Units 16:32 20:18 21:04 POC Glucose (mg/dL) 138 H 153 H (70-110) mg/dL Urine Appearance Cloudy H (Clear) Urine Protein 1+ H (Negative) Urine Blood Trace H (Negative) Urine Bilirubin 2+ H (Negative) Ur Leukocyte Esterase Moderate H (Negative) Urine RBC 7 H (0-5) /hpf Urine WBC 16 H (0-5) /hpf Urine WBC Clumps Occasional H (None) /hpf Ur Squamous Epith Cells 83 H (0-4) /hpf Amorphous Sediment Rare H (None) /hpf Urine Bacteria Moderate H (None) /hpf Hyaline Casts 48 H (0-2) /lpf Urine Mucus Rare H (None) /hpf 05/03/23 Range/Units 00:06 POC Glucose (mg/dL) 134 H (70-110) mg/dL Urine Appearance (Clear) Urine Protein (Negative) Urine Blood (Negative) Urine Bilirubin (Negative) Ur Leukocyte Esterase (Negative) Urine RBC (0-5) /hpf Urine WBC (0-5) /hpf Urine WBC Clumps (None) /hpf Ur Squamous Epith Cells (0-4) /hpf Amorphous Sediment (None) /hpf Urine Bacteria (None) /hpf Hyaline Casts (0-2) /lpf Urine Mucus (None) /hpf
--- NOTE | 2023-05-03 11:14 | P.PN ---
Subjective HISTORY OF PRESENT ILLNESS: This is this is an 82-year-old female patient of Dr. Iris Sheppard with past medical history of coronary artery disease status post prior angioplasty, chronic systolic heart failure, advanced cirrhosis with pancytopenia and fluid overload, chronic hypotension on midodrine, hypertension, hyperlipidemia. We have been asked to evaluate the patient for elevated troponin and chest wall pain. Patient states she presented to hospital due to shortness of breath and some chest discomfort. When asked about the compression fractures and rib fractures. She states that happened when she was working with physical therapy. She does not admit to any recent falls. She was recently seen by GI in the office and placed on antibiotics. Patient's blood pressure has been soft and she received IV fluid bolus of 2 L normal saline and also 3 doses of midodrine 5 mg each. EKG sinus rhythm with left bundle branch block, #2 sinus tachycardia with left bundle branch block and 120 bpm Chest x-ray: Lungs underinflated with prominent vascular and interstitial markings. Possible mild emphysema and or edema. 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 Small bilateral pleural effusions. 30 to 40% compression fracture T7 and T8 possibly acute. Acute left posterior eighth rib fracture. No pneumothorax. Thoracic aorta mildly calcified. No aneurysm or dissection. No pulmonary embolism. Severe coronary calcification. No pericardial effusion. CT angiogram of the abdomen pelvis abdominal aorta is mildly calcified. There is a 2.5 cm focal ectasia of the infrarenal aorta without aneurysm or dissection. No signs of rupture. No acute inflammatory changes. WBC 1.6, 11.3, platelet count 41. INR 1.3. Sodium 131, potassium 4.7, BUN 33, creatinine 1.19. Calcium 8. Magnesium 1.7. Total bilirubin 4.2, AST 44, ALT 20, alkaline phosphate 282. Troponin 0.064 and 0.297. Ammonia level 11. proBNP 2360. Urinalysis negative for infection. Home cardiac medications: Not confirmed Lexiscan stress test performed 02/22/2022 revealed limited exam fixed defect involving apex and inferior wall with small area of stress-induced reversible ischemia not excluded involving the inferior lateral myocardium EF 43%. Cardiac catheterization performed 07/06/[address] Ibrahim revealed occluded left circumflex in the midportion seems to be chronic occlusion and fills from the right coronary artery. Intermediate lesion involving the mid left anterior descending artery. Elevated left-sided filling pressure. Echocardiogram performed in the office on 10/09/2021 revealed EF 40 to 45%. Moderate concentric left hypertrophy. Mild aortic regurgitation. Mild to moderate mitral regurgitation. Mild tricuspid regurgitation. Normal pulmonary artery systolic pressure. Mild pulmonic regurgitation. 05/01 Patient is seen in follow up. Echocardiogram with EF 45%, mild MR and TR. BP 93/49, HR 88. Echo results reviewed with patient. 05/03/2023 Cardiology was reconsulted to evaluate patient secondary to new onset atrial fibrillation. Patient remains in atrial fibrillation this morning with controlled ventricular rate. Patient's blood pressures are low with a systolic in the 80s. She denies chest pain or pressure. She denies shortness of breath. PHYSICAL EXAM: VITAL SIGNS: Reviewed. GENERAL: Well-developed in no acute distress. NECK: Supple. No JVD or thyromegaly LUNGS: Respirations even and unlabored. Lungs essentially clear to auscultation bilaterally. HEART: Regular rate and rhythm. S1 and S2 heard. EXTREMITIES: Normal range of motion. No clubbing or cyanosis. Peripheral pulses intact. No lower extremity edema ASSESSMENT: Chest pain, musculoskeletal in nature, acute coronary syndrome has been ruled ou t. Left rib fracture New onset A-fib with controlled ventricular rate Urinary tract infection Compression fracture T7 and T8 Coronary artery disease status post prior angioplasty Chronic systolic heart failure Advanced cirrhosis with pancytopenia Chronic hypotension on midodrine History of hypertension Hyperlipidemia Pancytopenia PLAN: Continue current dose of metoprolol Add oral amiodarone 200 mg twice a day for rate control Continue telemetry monitoring No anticoagulation secondary to thrombocytopenia Further recommendations pending patient course Nurse practitioner note has been reviewed by physician. Signing provider agrees with the documented findings, assessment, and plan of care documented by [employer] PERSON as a scribe. Objective - Vital Signs Vital signs: Vital Signs Temp 97.9 F 05/03/23 09:00 Pulse 113 H 05/03/23 09:00 Resp 19 05/03/23 09:00 BP 85/43 05/03/23 09:00 Pulse Ox 99 05/03/23 09:00 FiO2 Intake & Output 05/02/23 05/03/23 05/03/23 18:59 06:59 18:59 Intake Total 200 120 180 Balance 200 120 180 Intake: Oral 200 120 180 Other: Voiding Method Bedside Commode Bedside Commode # Voids 2 # Bowel Movements 1 - Labs CBC & Chem 7: 05/02/23 07:39 05/02/23 07:39 Labs: Abnormal Lab Results - Last 24 Hours (Table) 05/02/23 05/02/23 05/02/23 Range/Units 16:32 20:18 21:04 POC Glucose (mg/dL) 138 H 153 H (70-110) mg/dL Urine Appearance Cloudy H (Clear) Urine Protein 1+ H (Negative) Urine Blood Trace H (Negative) Urine Bilirubin 2+ H (Negative) Ur Leukocyte Esterase Moderate H (Negative) Urine RBC 7 H (0-5) /hpf Urine WBC 16 H (0-5) /hpf Urine WBC Clumps Occasional H (None) /hpf Ur Squamous Epith Cells 83 H (0-4) /hpf Amorphous Sediment Rare H (None) /hpf Urine Bacteria Moderate H (None) /hpf Hyaline Casts 48 H (0-2) /lpf Urine Mucus Rare H (None) /hpf 05/03/23 Range/Units 00:06 POC Glucose (mg/dL) 134 H (70-110) mg/dL Urine Appearance (Clear) Urine Protein (Negative) Urine Blood (Negative) Urine Bilirubin (Negative) Ur Leukocyte Esterase (Negative) Urine RBC (0-5) /hpf Urine WBC (0-5) /hpf Urine WBC Clumps (None) /hpf Ur Squamous Epith Cells (0-4) /hpf Amorphous Sediment (None) /hpf Urine Bacteria (None) /hpf Hyaline Casts (0-2) /lpf Urine Mucus (None) /hpf
[2023-05-03 11:30] LABS: Glucose,Whole Blood 92 mg/dL (70-110)
[2023-05-03] MEDS: ERTAPENEM 0.5 GM in SODIUM CHLORIDE 0.9% 50 ML IVPB SCH (11:45)
[2023-05-03 12:11] LABS: Anisocytosis Slight; HCT 34.2 % (34.0-46.0); HGB 10.8 gm/dL (11.4-16.0); Hypochromasia Marked; MCH 32.5 pg (25.0-35.0); MCHC 31.7 g/dL (31.0-37.0); MCV 102.4 fL (80.0-100.0); Macrocytosis Moderate; Mean Platelet Volume 10.4; Poikilocytosis Moderate; RBC 3.34 m/uL (3.80-5.40); RDW 16.3 % (11.5-15.5); WBC 25.2 k/uL (3.8-10.6)
[2023-05-03 12:24] LABS: ALT 19 U/L (4-34); AST 36 U/L (14-36); African American GFR (CKD) 23 (>60 ml/min/1.73 sqM); Albumin 2.2 g/dL (3.5-5.0); Alkaline Phosphatase 297 U/L (38-126); Anion Gap 8 mmol/L; Blood Urea Nitrogen 57 mg/dL (7-17); Calcium 7.9 mg/dL (8.4-10.2); Carbon Dioxide 19 mmol/L (22-30); Chloride 104 mmol/L (98-107); Glucose 75 mg/dL (74-99); Magnesium 2.5 mg/dL (1.6-2.3); Non-African American GFR(CKD) 20 (>60 ml/min/1.73 sqM); Platelet Count 49 k/uL (150-450); Potassium 5.7 mmol/L (3.5-5.1); Sodium 131 mmol/L (137-145); Total Protein 4.9 g/dL (6.3-8.2)
[2023-05-03] MEDS: SODIUM ZIRCONIUM CYCLOSILICATE 10 GM PACKET PO ONE (14:10)
--- NOTE | 2023-05-03 15:34 | US ---
EXAMINATION TYPE: US abdomen limited DATE OF EXAM: 05/03/2023 COMPARISON: NONE CLINICAL INDICATION: Female, 82 years old with history of assess for ascities/paracentesis; Ascites c heck. FINDINGS: Limited scanning performed for assessment of ascites. Scanned all four quadrants of the abdomen. No ascites seen at this time by ultrasound. IMPRESSION: No evidence of ascites.
[2023-05-03 16:32] LABS: Glucose,Whole Blood 105 mg/dL (70-110)
[2023-05-03 19:56] LABS: Glucose,Whole Blood 97 mg/dL (70-110)
--- NOTE | 2023-05-03 21:50 | P.CONS ---
History of Present Illness - Reason for Consult Consult date: 05/03/23 UTI Requesting physician: David Connell - Chief Complaint Mental status changes x few days - History of Present Illness Patient is a 82-year-old female with a past medical history significant for hypertension hyperlipidemia thrombocytopenia cirrhosis of the liver [place] osteoarthritis patient was brought into the ER 3 days ago for evaluation of chest pain and this patient symptom has been going on for almost 2-week with no history of any trauma patient was admitted to the hospital for workup of her chest pain and did have a negative UA on admission, the patient has been afebrile during this hospital stay patient did have a white count of 1.6 on admission which was up to 13.6 on the however the white count is up to 25.2 today patient did have elevated bili creatinine as well as potassium bilirubin is elevated ALT AST is normal repeat UA has been positive patient did have a multiple antibiotic allergies , patient was started on Levaquin last night infectious was consulted for further management of antibiotic therapy. Patient currently noticed to have significant change in her mentation with the patient has been noted to be more lethargic and is unresponsive as of this morning symptoms started getting worse since yesterday, patient also have an episode of vomiting this morning as per the history provided by the daughter at the bedside no clear history of any headache or focal weakness and no diarrhea has been reported patient is currently lethargic and cannot provide any history most information has been obtained from review the chart and talking to the daughter at the bedside Review of Systems Positive points has been mentioned in HPI complete review could not be obtained because of his underlying mental status Past Medical History Past Medical History: Blood Disorder, Coronary Artery Disease (CAD), Heart Failure, GERD/Reflux, Hyperlipidemia, Hypertension, Liver Disease, Myocardial Infarction ([place]), Osteoarthritis (OA) Additional Past Medical History / Comment(s): 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 Kan). 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 Freq. platelet transfusion with most procedures. Date of Last Stent Placement:: 1998 Past Psychological History: No Psychological Hx Reported Smoking Status: Former smoker Past Alcohol Use History: None Reported Additional Past Alcohol Use History / Comment(s): smokes maybe weekly- 1-2 cigarettes- had smoked and quit for 12 yrs and started up about 5 yrs ago again Past Drug Use History: None Reported - Past Family History Mother Family Medical History: Cancer Additional Family Medical History / Comment(s): Breast Ca Father Family Medical History: Myocardial Infarction ([place]) Additional Family Medical History / Comment(s): @ age 86 from [place] Medications and Allergies Home Medications Medication Instructions Recorded Confirmed Type Pravastatin Sodium 80 mg PO DAILY 07/30/20 04/30/23 History Primidone [Mysoline] 50 mg PO BID 07/30/20 04/30/23 History Triamcinolone 0.1% Ointment 1 applic TOPICAL DAILY PRN 12/03/22 04/30/23 History [Kenalog 0.1% Ointment] Metoprolol Succinate (ER) [Toprol 12.5 mg PO DAILY #30 tab 12/10/22 04/30/23 Rx XL] Midodrine [ProAmatine] 5 mg PO AC-TID #90 tab 12/10/22 04/30/23 Rx Furosemide [Lasix] 40 mg PO BID #0 12/16/22 04/30/23 Rx Ketorolac [Toradol] 10 mg PO Q8HR #15 tab 04/26/23 04/30/23 Rx Lidocaine 5% Patch [Lidoderm 5% 1 patch TOPICAL DAILY #5 patch 04/26/23 04/30/23 Rx Patch] Ampicillin 500mg Capsule 500 mg PO DAILY 04/30/23 04/30/23 History Clotrimazole/Betameth Cream 1 applic TOPICAL BID 04/30/23 04/30/23 History [Lotrisone] Cyclobenzaprine [Flexeril] 10 mg PO TID PRN 04/30/23 04/30/23 History Lactulose [Constulose] 30 gm PO TID 04/30/23 04/30/23 History Allergies Allergy/AdvReac Type Severity Reaction Status Date / Time cephalexin monohydrate Allergy Rash/Hives/ Verified 04/30/23 12:21 [From Keflex] Swelling codeine Allergy Rash/Hives Verified 04/30/23 12:21 doxepin Allergy Rash/Hives Verified 04/30/23 12:21 meperidine HCl [From Demerol] Allergy Rash/Hives Verified 04/30/23 12:21 methylprednisolone Allergy Rash/Hives Verified 04/30/23 12:21 [From Medrol] Opioids - Morphine Analogues Allergy Rash/Hives Verified 04/30/23 12:21 Penicillins Allergy Swelling Verified 04/30/23 12:21 over entire body pentazocine lactate Allergy Rash/Hives-Stomach Verified 04/30/23 12:21 [From Talwin] Upset propoxyphene napsylate Allergy Rash/Hives- Verified 04/30/23 12:21 [From Darvocet-N] Itch tramadol Allergy Rash/Hives Verified 04/30/23 12:21 ketorolac [From Toradol] AdvReac Hallucinati Verified 04/30/23 12:27 ons Physical Exam Vitals: Vital Signs Temp Pulse Pulse Resp BP BP Pulse Ox 05/03/23 05:42 113/61 05/03/23 02:00 114 H 115 H 05/02/23 23:35 97.6 F 114 H 24 95/45 95 05/02/23 20:00 104 H 115 H 18 103/51 97 05/02/23 16:00 93 16 103/66 97 05/02/23 14:00 104 H 92 18 05/02/23 12:00 90 16 77/45 97 Intake and Output 05/02/23 05/03/23 05/03/23 22:59 06:59 14:59 Intake Total 120 180 Balance 120 180 Intake: Oral 120 180 Other: Voiding Method Bedside Commode Bedside Commode # Voids 2 # Bowel Movements 1 GENERAL DESCRIPTION: Elderly female lying in bed, no distress. No tachypnea or accessory muscle of respiration use. HEENT: Shows Pallor , no scleral icterus. Oral mucous membrane is dry. NECK: Trachea central, no thyromegaly. LUNGS: Unlabored breathing. Clear to auscultation anteriorly. No wheeze or crackle. HEART: S1, S2, regular rate and rhythm. No loud murmur ABDOMEN: Soft, no tenderness , EXTREMITIES: No edema of feet. SKIN: No rash, no masses palpable. NEUROLOGICAL: The patient is lethargic orientation could not be determined Results CBC & Chem 7: 05/21/23 06:14 05/21/23 06:14 Labs: Abnormal Lab Results - Last 24 Hours (Table) 05/02/23 05/02/23 05/02/23 Range/Units 16:32 20:18 21:04 POC Glucose (mg/dL) 138 H 153 H (70-110) mg/dL Urine Appearance Cloudy H (Clear) Urine Protein 1+ H (Negative) Urine Blood Trace H (Negative) Urine Bilirubin 2+ H (Negative) Ur Leukocyte Esterase Moderate H (Negative) Urine RBC 7 H (0-5) /hpf Urine WBC 16 H (0-5) /hpf Urine WBC Clumps Occasional H (None) /hpf Ur Squamous Epith Cells 83 H (0-4) /hpf Amorphous Sediment Rare H (None) /hpf Urine Bacteria Moderate H (None) /hpf Hyaline Casts 48 H (0-2) /lpf Urine Mucus Rare H (None) /hpf 05/03/23 Range/Units 00:06 POC Glucose (mg/dL) 134 H (70-110) mg/dL Urine Appearance (Clear) Urine Protein (Negative) Urine Blood (Negative) Urine Bilirubin (Negative) Ur Leukocyte Esterase (Negative) Urine RBC (0-5) /hpf Urine WBC (0-5) /hpf Urine WBC Clumps (None) /hpf Ur Squamous Epith Cells (0-4) /hpf Amorphous Sediment (None) /hpf Urine Bacteria (None) /hpf Hyaline Casts (0-2) /lpf Urine Mucus (None) /hpf Assessment and Plan (1) Allergy to multiple antibiotics Status: Acute Code(s): Z88.1 - ALLERGY STATUS TO OTHER ANTIBIOTIC AGENTS SNOMED Code(s): 313117736 (2) Urinary tract infection Status: Acute Code(s): N39.0 - URINARY TRACT INFECTION, SITE NOT SPECIFIED SNOMED Code(s): 83222037 Plan: 1patient with a mental status change which is likely multifactorial due to an episode of vomiting and a positive UA defect, UA on admission that was negative and the patient last urine culture done on 04/26/2023 was ESBL E. coli could be the same pathogen 2-discontinue amoxicillin and Levaquin 3-we will start the patient on Invanz 1 g daily while waiting for the culture to finalize Daughter at the bedside questions were answered We will follow on clinical condition and cultures to further adjust medication if needed Thank you for this consultation we will follow the patient along with you Dictation was produced using [employer] dictation software. please excuse any grammatical, word or spelling errors. Time with Patient: Greater than 30
[2023-05-04] MEDS ORDERED: LEVOFLOXACIN 500MG-D5W PMX 500 MG in DEXTROSE/WATER 1 100ML.BAG IVPB SCH
[2023-05-04 00:07] LABS: Glucose,Whole Blood 80 mg/dL (70-110)
[2023-05-04 04:53] LABS: Glucose,Whole Blood 166 mg/dL (70-110)
[2023-05-04 08:20] LABS: Glucose,Whole Blood 73 mg/dL (70-110)
[2023-05-04] MEDS: LACTATED RINGERS 1,000 ML IV SCH (09:38)
--- NOTE | 2023-05-04 10:33 | P.PN ---
Subjective Progress Note Date: 05/04/23 Hospital Course: 82-year-old female with history of liver cirrhosis, CAD status post stent, chronic systolic heart failure, hypertension, dyslipidemia, chronic pancytopenia, ITP presented with chest pain and shortness of breath. On initial presentation, patient was tachycardic, tachypneic, saturating well on room air. EKG showed sinus tachycardia with known left bundle branch block. Chest x-ray showed pulmonary vascular interstitial markings. 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 CBC showing pancytopenia with WBC count of 1.6, hemoglobin 11.3, platelet count of 41. Coagulation profile showing elevated INR of 1.3. BMP showing hyponatremia with sodium of 131, elevated BUN of 33, creatinine 1.19, GFR 43. Liver profile showing elevated total bili of 4.2, AST of 44, ALT of 20, and alkaline phosphatase of 282. Troponin 0.064 and proBNP 2360. Troponin continues to uptrend. Cardiology was consulted. No invasive procedures recommended by cardiology. Echocardiogram showed mild LV systolic function decrease, severely enlarged left atrium. Orthopedic surgery was consulted, not recommending any interventions. Patient did get slightly more encephalopathic yesterday, and had low blood sugars, previous urinalysis was positive, urine culture was positive for ESBL. Repeat urinalysis shows a dirty sample. However, ID is consulted, patient is on IV antibiotics. Patient also developing oliguric SCOOTER. Subjective: Patient seen and examined at bedside. Patient was hypotensive overnight, required a 500 cc bolus of normal saline. Per daughter she looks a lot worse today Pertinent positives and negatives as discussed above, a complete review of systems was performed and all other systems are negative. Vitals Signs Reviewed. General: Nontoxic, no distress, appears at stated age Derm: Warm, dry, jaundice Head: Atraumatic, normocephalic, symmetric Eyes: EOMI, no lid lag, scleral icterus Mouth: No lip lesion, mucus membranes moist Cardiovascular: S1S2 reg, no murmur Lungs: CTA bilateral, no rhonchi, no rales, no accessory muscle use Abdominal: Soft, nontender to palpation, no guarding, no appreciable organomegaly Ext: No gross muscle atrophy, no edema, no contractures Neuro: CN II-XI grossly intact, no focal neuro deficits Psych: Alert, oriented x 1, appropriate affect Data Reviewed Today: Pertinent Labs: CBC and CMP pending, will be reviewed when available, repeat urinalysis pending. Urine cultures showed normal genital lukas. Blood sugars range between 80-1 66 Imaging: Abdominal ultrasound showed no evidence of ascites. Assessment and Plan: Patient is severely ill, prognosis guarded Active: Acute metabolic encephalopathy Severe sepsis, unclear source Questionable urinary tract infection, prior cultures growing ESBL Oliguric acute kidney injury Hyponatremia Isolated hypoglycemia Liver cirrhosis Pancytopenia Hyperbilirubinemia -Urine culture showed normal genital lukas, repeat UA still pending Patient did have bandemia on initial presentation, and now has leukocytosis Per daughter, patient had a recent dental abscess, went untreated. CT abdomen pelvis and CT face ordered without contrast ID is following, patient currently on ertapenem 0.5 g IV daily Patient is fluid responsive, in light of minimal urine output, patient started on lactated Ringer's at 100 cc an hour Also continue midodrine 5 AC 3 times daily, may need to increase to 10 Nephrology also consulted, pending recommendations Repeat CBC and CMP pending, will be reviewed when available -Unclear why patient is on primidone, however due to encephalopathy, decrease dose to 25 daily -Lactulose 30 g 3 times daily, titrate to 2-3 bowel movements per day NSTEMI, likely type II New onset Afib with controlled ventricular rate History of CAD status post stent -Cardiology recommending medical management for NSTEMI -Continue aspirin 81 mg, on pravastatin 80 mg -On amiodarone 200 twice daily for rate control, no anticoagulation due to thrombocytopenia -Continue home metoprolol 12.5 daily Compression fracture of T7 and T8 Acute left posterior eighth rib fracture Fracture of the coronoid process of the left scapula -Orthopedic surgery signed off, patient not a surgical candidate Thyroid mass -Outpatient follow-up DVT ppx: Patient is thrombocytopenic Code status: Full code Anticipated discharge place: Pending clinical course Anticipated discharge time: Pending clinical course Objective - Vital Signs Vital signs: Vital Signs Temp 98.3 F 05/03/23 20:00 Pulse 99 05/04/23 05:12 Resp 14 05/04/23 05:12 BP 124/54 05/04/23 05:12 Pulse Ox 100 05/04/23 05:12 FiO2 Intake & Output 05/03/23 05/04/23 05/04/23 18:59 06:59 18:59 Intake Total 360 75 Output Total 50 Balance 360 25 Intake: Oral 360 75 Output: Urine 50 Uretheral (Hinds) 50 Other: Voiding Method Bedside Commode Bedside Commode Bedpan # Bowel Movements 1 1 - Labs CBC & Chem 7: 05/03/23 10:59 05/03/23 10:59 Labs: Abnormal Lab Results - Last 24 Hours (Table) 05/03/23 05/03/23 05/04/23 Range/Units 10:59 10:59 04:52 WBC 25.2 H (3.8-10.6) k/uL RBC 3.34 L (3.80-5.40) m/uL Hgb 10.8 L (11.4-16.0) gm/dL MCV 102.4 H (80.0-100.0) fL RDW 16.3 H (11.5-15.5) % Plt Count 49 L (150-450) k/uL Sodium 131 L (137-145) mmol/L Potassium 5.7 H (3.5-5.1) mmol/L Carbon Dioxide 19 L (22-30) mmol/L BUN 57 H (7-17) mg/dL Creatinine 2.22 H (0.52-1.04) mg/dL POC Glucose (mg/dL) 166 H (70-110) mg/dL Calcium 7.9 L (8.4-10.2) mg/dL Magnesium 2.5 H (1.6-2.3) mg/dL Total Bilirubin 5.0 H (0.2-1.3) mg/dL Alkaline Phosphatase 297 H (38-126) U/L Total Protein 4.9 L (6.3-8.2) g/dL Albumin 2.2 L (3.5-5.0) g/dL Microbiology - Last 24 Hours (Table) 05/02/23 21:04 Urine Culture - Final Urine,Voided
--- NOTE | 2023-05-04 10:33 | XR ---
EXAMINATION TYPE: XR chest 1V portable DATE OF EXAM: 05/04/2023 10:26 AM CLINICAL INDICATION:Female, 82 years old with history of CHF; H COMPARISON: Chest radiographs from 04/29/2023. TECHNIQUE: XR chest 1V portable Frontal view of the chest. FINDINGS: Lungs/Pleura: There is no evidence of pleural effusion, focal consolidation, or pneumothorax. Pulmonary vascularity: Pulmonary vascular congestion. Heart/mediastinum: Cardiomediastinal silhouette is enlarged and stable. Musculoskeletal: No acute osseous pathology. IMPRESSION: Cardiomegaly and mild pulmonary vascular congestion. Correlate with BNP for congestive heart failure.
[2023-05-04 10:35] LABS: Anisocytosis Slight; HCT 32.6 % (34.0-46.0); HGB 10.4 gm/dL (11.4-16.0); Hypochromasia Marked; MCH 32.6 pg (25.0-35.0); MCHC 31.8 g/dL (31.0-37.0); MCV 102.4 fL (80.0-100.0); Macrocytosis Moderate; Mean Platelet Volume 11.6; Poikilocytosis Slight; RBC 3.19 m/uL (3.80-5.40); RDW 16.3 % (11.5-15.5); WBC 16.8 k/uL (3.8-10.6)
[2023-05-04 10:53] LABS: ALT 18 U/L (4-34); AST 36 U/L (14-36); African American GFR (CKD) 17 (>60 ml/min/1.73 sqM); Alkaline Phosphatase 278 U/L (38-126); Anion Gap 8 mmol/L; Blood Urea Nitrogen 61 mg/dL (7-17); Calcium 7.6 mg/dL (8.4-10.2); Carbon Dioxide 17 mmol/L (22-30); Chloride 106 mmol/L (98-107); Glucose 59 mg/dL (74-99); Non-African American GFR(CKD) 15 (>60 ml/min/1.73 sqM); Potassium 5.4 mmol/L (3.5-5.1); Sodium 131 mmol/L (137-145); Total Protein 4.6 g/dL (6.3-8.2)
--- NOTE | 2023-05-04 11:05 | P.NPCON ---
History of Present Illness - Reason for Consult acute renal failure - History of Present Illness Patient is an 82-year-old female with history of liver cirrhosis, coronary artery disease, chronic CHF who is admitted to the hospital with complaints of shortness of breath. Patient ruled in for non-ST elevation [place]. Serum creatinine was 1.19 on initial admission and increased to 2.8 today. Blood pressure has been low with systolic in the 80s. Maintained on IV fluids. Patient has low urine output. Patient is maintained on midodrine 5 mg 3 times a day. Status post fluid bolus last night. Concern for underlying UTI however urine culture was unremarkable. Chest x-ray ordered today shows pulmonary vascular congestion. 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 Kan). 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 Freq. platelet transfusion with most procedures. Date of Last Stent Placement:: 1998 Past Psychological History: No Psychological Hx Reported Smoking Status: Former smoker Past Alcohol Use History: None Reported Additional Past Alcohol Use History / Comment(s): smokes maybe weekly- 1-2 cigarettes- had smoked and quit for 12 yrs and started up about 5 yrs ago again Past Drug Use History: None Reported - Past Family History Mother Family Medical History: Cancer Additional Family Medical History / Comment(s): Breast Ca Father Family Medical History: Myocardial Infarction ([place]) Additional Family Medical History / Comment(s): @ age 86 from [place] Medications and Allergies Home Medications Medication Instructions Recorded Confirmed Type Pravastatin Sodium 80 mg PO DAILY 07/30/20 04/30/23 History Primidone [Mysoline] 50 mg PO BID 07/30/20 04/30/23 History Triamcinolone 0.1% Ointment 1 applic TOPICAL DAILY PRN 12/03/22 04/30/23 History [Kenalog 0.1% Ointment] Metoprolol Succinate (ER) [Toprol 12.5 mg PO DAILY #30 tab 12/10/22 04/30/23 Rx XL] Midodrine [ProAmatine] 5 mg PO AC-TID #90 tab 12/10/22 04/30/23 Rx Furosemide [Lasix] 40 mg PO BID #0 12/16/22 04/30/23 Rx Ketorolac [Toradol] 10 mg PO Q8HR #15 tab 04/26/23 04/30/23 Rx Lidocaine 5% Patch [Lidoderm 5% 1 patch TOPICAL DAILY #5 patch 04/26/23 04/30/23 Rx Patch] Ampicillin 500mg Capsule 500 mg PO DAILY 04/30/23 04/30/23 History Clotrimazole/Betameth Cream 1 applic TOPICAL BID 04/30/23 04/30/23 History [Lotrisone] Cyclobenzaprine [Flexeril] 10 mg PO TID PRN 04/30/23 04/30/23 History Lactulose [Constulose] 30 gm PO TID 04/30/23 04/30/23 History Allergies Allergy/AdvReac Type Severity Reaction Status Date / Time cephalexin monohydrate Allergy Rash/Hives/ Verified 04/30/23 12:21 [From Keflex] Swelling codeine Allergy Rash/Hives Verified 04/30/23 12:21 doxepin Allergy Rash/Hives Verified 04/30/23 12:21 meperidine HCl [From Demerol] Allergy Rash/Hives Verified 04/30/23 12:21 methylprednisolone Allergy Rash/Hives Verified 04/30/23 12:21 [From Medrol] Opioids - Morphine Analogues Allergy Rash/Hives Verified 04/30/23 12:21 Penicillins Allergy Swelling Verified 04/30/23 12:21 over entire body pentazocine lactate Allergy Rash/Hives-Stomach Verified 04/30/23 12:21 [From Talwin] Upset propoxyphene napsylate Allergy Rash/Hives- Verified 04/30/23 12:21 [From Darvocet-N] Itch tramadol Allergy Rash/Hives Verified 04/30/23 12:21 ketorolac [From Toradol] AdvReac Hallucinati Verified 04/30/23 12:27 ons Physical Exam Vitals: Vital Signs Temp Pulse Pulse Resp BP Pulse Ox 05/04/23 08:35 98.2 F 81 18 85/48 93 L 05/04/23 05:12 99 14 124/54 100 05/04/23 02:00 91 05/03/23 23:31 91 16 82/56 96 05/03/23 21:52 81/44 05/03/23 20:00 98.3 F 98 98 18 95/55 99 05/03/23 17:28 98.5 F 05/03/23 15:15 99 18 85/50 92 L 05/03/23 11:45 92 18 86/48 92 L Intake and Output 05/03/23 05/04/23 05/04/23 22:59 06:59 14:59 Intake Total 75 Output Total 50 Balance 25 Intake: Oral 75 Output: Urine 50 Uretheral (Hinds) 50 Other: Voiding Method Bedside Commode Bedside Commode Bedside Commode Bedpan Bedpan Bedpan # Bowel Movements 1 1 Patient is not able to communicate. She is confused. She is tachypneic. Examination of the heart S1 and S2 Examination of the lungs shows decreased breath sounds at the bases Abdomen is soft nontender Examination of lower extremities shows no edema Results - Lab Results Most recent lab results Calcium 7.9 mg/dL (8.4-10.2) L 05/03/23 10:59 Magnesium 2.5 mg/dL (1.6-2.3) H 05/03/23 10:59 05/03/23 10:59 05/03/23 10:59 Assessment and Plan Assessment: 1. Acute kidney injury, oliguric ATN secondary to hypotension and NSAIDs which patient was taking at home. UA shows 1+ protein and trace blood and WBCs 16. Ultrasound of the kidneys shows right kidney 10.0 cm left kidney 8.4 cm no hydronephrosis noted. Currently maintained on IV fluids. 2. Non-gap metabolic acidosis secondary to acute kidney injury 3. Hyperkalemia associated with acute kidney injury 4. Non-ST elevation [place] 5. History of liver cirrhosis 6. Encephalopathy rule out hepatic encephalopathy Plan: Continue IV fluids Change to IV bicarb Increase midodrine to 10 mg 3 times a day Continue empiric antibiotics Repeat chest x-ray was ordered which showed mild pulmonary vascular congestion although patient does not appear to be in significant fluid overload. As patient remains oliguric I we will give her 1 dose of IV Lasix. Check ammonia level I will add Sandostatin if patient remains oliguric due to concern for possible hepatorenal syndrome. Thank you for the consultation. We will continue to follow the patient with you during her hospitalization.
--- NOTE | 2023-05-04 11:36 | P.PN ---
Subjective Progress Note Date: 05/04/23 Principal diagnosis: Reason for follow-up is leukocytosis and UTI Patient is a 82-year-old female with a past medical history significant for hypertension hyperlipidemia thrombocytopenia cirrhosis of the liver IN osteoarthritis patient was brought into the ER for evaluation of chest pain patient subsequently did have significant worsening of her mentation did have a positive UA concerning for possible component of UTI On today's evaluation that is 05/04/2023, the patient is afebrile patient is breathing comfortably on 2 L nasal cannula oxygen patient seen to be slightly more awake today however remains to be pleasantly confused and did not answer any question no vomiting or diarrhea has been reported. Patient white count is down to 16.8, creatinine is 2.83 cultures are currently pending Objective - Vital Signs Vital signs: Vital Signs Temp 98.2 F 05/04/23 08:35 Pulse 81 05/04/23 08:35 Resp 18 05/04/23 08:35 BP 85/48 05/04/23 08:35 Pulse Ox 93 L 05/04/23 08:35 FiO2 Intake & Output 05/03/23 05/04/23 05/04/23 18:59 06:59 18:59 Intake Total 360 75 Output Total 50 Balance 360 25 Weight 58.967 kg Intake: Oral 360 75 Output: Urine 50 Uretheral (Hinds) 50 Other: Voiding Method Bedside Commode Bedside Commode Bedside Commode Bedpan Bedpan # Bowel Movements 1 1 - Exam GENERAL DESCRIPTION: An elderly Female lying in bed in no distress RESPIRATORY SYSTEM: Unlabored breathing , decreased breath sounds at bases HEART: S1 S2 regular rate and rhythm , ABDOMEN: Soft , no tenderness EXTREMITIES: No edema feet - Labs CBC & Chem 7: 05/04/23 09:38 05/04/23 09:38 Labs: Abnormal Lab Results - Last 24 Hours (Table) 05/03/23 05/03/23 05/04/23 Range/Units 10:59 10:59 04:52 WBC 25.2 H (3.8-10.6) k/uL RBC 3.34 L (3.80-5.40) m/uL Hgb 10.8 L (11.4-16.0) gm/dL Hct (34.0-46.0) % MCV 102.4 H (80.0-100.0) fL RDW 16.3 H (11.5-15.5) % Plt Count 49 L (150-450) k/uL Sodium 131 L (137-145) mmol/L Potassium 5.7 H (3.5-5.1) mmol/L Carbon Dioxide 19 L (22-30) mmol/L BUN 57 H (7-17) mg/dL Creatinine 2.22 H (0.52-1.04) mg/dL Glucose (74-99) mg/dL POC Glucose (mg/dL) 166 H (70-110) mg/dL Calcium 7.9 L (8.4-10.2) mg/dL Magnesium 2.5 H (1.6-2.3) mg/dL Total Bilirubin 5.0 H (0.2-1.3) mg/dL Alkaline Phosphatase 297 H (38-126) U/L Total Protein 4.9 L (6.3-8.2) g/dL Albumin 2.2 L (3.5-5.0) g/dL 05/04/23 05/04/23 Range/Units 09:38 09:38 WBC 16.8 H (3.8-10.6) k/uL RBC 3.19 L (3.80-5.40) m/uL Hgb 10.4 L (11.4-16.0) gm/dL Hct 32.6 L (34.0-46.0) % MCV 102.4 H (80.0-100.0) fL RDW 16.3 H (11.5-15.5) % Plt Count (150-450) k/uL Sodium 131 L (137-145) mmol/L Potassium 5.4 H (3.5-5.1) mmol/L Carbon Dioxide 17 L (22-30) mmol/L BUN 61 H (7-17) mg/dL Creatinine 2.83 H (0.52-1.04) mg/dL Glucose 59 L (74-99) mg/dL POC Glucose (mg/dL) (70-110) mg/dL Calcium 7.6 L (8.4-10.2) mg/dL Magnesium (1.6-2.3) mg/dL Total Bilirubin 3.0 H (0.2-1.3) mg/dL Alkaline Phosphatase 278 H (38-126) U/L Total Protein 4.6 L (6.3-8.2) g/dL Albumin 2.0 L (3.5-5.0) g/dL Microbiology - Last 24 Hours (Table) 05/02/23 21:04 Urine Culture - Final Urine,Voided Assessment and Plan (1) Leukocytosis Current Visit: Yes Status: Acute Code(s): D72.829 - ELEVATED WHITE BLOOD CELL COUNT, UNSPECIFIED SNOMED Code(s): 761430382 (2) Allergy to multiple antibiotics Current Visit: Yes Status: Acute Code(s): Z88.1 - ALLERGY STATUS TO OTHER ANTIBIOTIC AGENTS SNOMED Code(s): 418533811 (3) Urinary tract infection Current Visit: No Status: Acute Code(s): N39.0 - URINARY TRACT INFECTION, SITE NOT SPECIFIED SNOMED Code(s): 46462360 Plan: 1patient with a mental status change which is likely multifactorial due to an episode of vomiting and a positive UA defect, UA on admission that was negative and the patient last urine culture done on 04/26/2023 was ESBL E. coli could be the same pathogen 2-patient did have some clinical improvement of the patient white count is trending down, we will continue the patient on Invanz 1 g daily while waiting for the culture to finalize Daughter at the bedside questions were answered Dictation was produced using PerSay dictation software. please excuse any grammatical, word or spelling errors. Time with Patient: Less than 30
[2023-05-04 11:40] LABS: Platelet Count 35 k/uL (150-450)
--- NOTE | 2023-05-04 11:47 | CT ---
EXAMINATION TYPE: CT facial bones wo con CT DLP: 768.2 mGycm, Automated exposure control for dose reduction was used. DATE OF EXAM: 05/04/2023 11:23 AM COMPARISON: CT brain 05/02/2023.. CLINICAL INDICATION:Female, 82 years old with history of recent dental abscess; PHH, recent dental ab scess TECHNIQUE: Multiple unenhanced axial CT images were obtained of the facial bones soft tissue and bone windows. Coronal, axial and sagittal reformatted images were also provided in soft tissue and bone windows and submitted for interpretation. Additional 3-D reformatted images were obtained on a [employer] workstation. . Contrast used: mL of , (none if empty) Oral contrast used: (none if empty) FINDINGS: Soft tissue masslike area in the inferior left neck measuring at least 47 x 36 mm. This is poorly evaluated due to incomplete visualization due to field of view and lack of IV contrast. There is phlegmonous change along the right lower mandible no definitive organizing fluid collection. No os seous erosion is identified. There is no evidence of fracture, subluxation, dislocation, or significant soft tissue swelling. The orbital contents are unremarkable.The temporal-mandibular joints appear symmetric with degeneration c hanges bilaterally.. Paranasal sinuses demonstrate mild mucosal thickening. IMPRESSION: 1. Soft tissue masslike area in the inferior left neck measuring at least 47 x 36 mm. This is poorly evaluated due to incomplete visualization due to field of view and lack of IV contrast. 2. Inflammation changes along the right mandible without organizing fluid collection at this time.
--- NOTE | 2023-05-04 11:53 | CT ---
EXAMINATION TYPE: CT abdomen pelvis wo con CT DLP: 1286.4 mGycm, Automated exposure control for dose reduction was used. DATE OF EXAM: 05/04/2023 11:23 AM COMPARISON: CT facial same day. CLINICAL INDICATION:Female, 82 years old with history of sepsis, unclear source; sepsis, unclear sour ce. TECHNIQUE: Axial CT abdomen pelvis wo con;Sagittal and coronal reformats were created on a separate workstation. Contrast used: mL of , (none if empty) Oral contrast used: without Oral Contrast (none if empty) FINDINGS: LOWER CHEST: Fat stranding changes within the right breast with skin thickening measuring up to 11 mm inferiorly. Heart is enlarged for size. There is trace bilateral pleural effusions with pulmonary va scular congestion. Coronary artery atherosclerosis. ABDOMEN LIVER: Nodular contour to liver with caudate lobe hypertrophy changes. GALLBLADDER AND BILE DUCTS: Gallbladder is nondistended or surgically absent. PANCREAS: Unremarkable. SPLEEN: Enlarged measuring up to 15.0 cm. ADRENAL GLANDS: Unremarkable. KIDNEYS AND URETERS:No evidence of hydronephrosis or renal calculus. The ureters are unremarkable. S imple appearing left renal cysts. PELVIS BLADDER: Excreted IV contrast is seen within the urinary bladder. Bladder is nondistended. REPRODUCTIVE: Unremarkable. ABDOMEN & PELVIS STOMACH AND BOWEL: No evidence of bowel obstruction. PERITONEUM/RETROPERITONEUM: No evidence of pneumoperitoneum or free fluid. VASCULATURE: No evidence of aortic aneurysm. MUSCULOSKELETAL: No acute osseous abnormalities. Moderate 2 severe disc degeneration changes are pres ent throughout the thoracolumbar spine. Fixation hardware of the left hip appears intact. Grade 1 ant erolisthesis of L4 on L5. LYMPH NODES: No gross evidence for lymphadenopathy. SOFT TISSUE/ABDOMINAL WALL: Diffuse anasarca of the soft tissues. Ventral wall fat-containing hernia. IMPRESSION: 1. No evidence for acute infectious process. 2. Skin thickening of the right breast. Correlate with mammography if not recently performed. 3. Nodular contour to the liver with splenomegaly correlate for hepatic cirrhosis with portal hypert ension. 4. Cardiomegaly with pulmonary vascular congestion, pleural effusions and anasarca. Correlate for co ngestive heart failure.
[2023-05-04 12:02] LABS: Glucose,Whole Blood 80 mg/dL (70-110)
[2023-05-04] MEDS: ALBUMIN HUMAN 25% 50 ML in EMPTY BAG 1 BAG IVPB ONE (12:17)
[2023-05-04] MEDS: MIDODRINE 5 MG TAB PO SCH (12:18)
--- NOTE | 2023-05-04 12:28 | P.PN ---
Subjective HISTORY OF PRESENT ILLNESS: This is this is an 82-year-old female patient of Dr. Iris Sheppard with past medical history of coronary artery disease status post prior angioplasty, chronic systolic heart failure, advanced cirrhosis with pancytopenia and fluid overload, chronic hypotension on midodrine, hypertension, hyperlipidemia. We have been asked to evaluate the patient for elevated troponin and chest wall pain. Patient states she presented to hospital due to shortness of breath and some chest discomfort. When asked about the compression fractures and rib fractures. She states that happened when she was working with physical therapy. She does not admit to any recent falls. She was recently seen by GI in the office and placed on antibiotics. Patient's blood pressure has been soft and she received IV fluid bolus of 2 L normal saline and also 3 doses of midodrine 5 mg each. EKG sinus rhythm with left bundle branch block, #2 sinus tachycardia with left bundle branch block and 120 bpm Chest x-ray: Lungs underinflated with prominent vascular and interstitial markings. Possible mild emphysema and or edema. 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 Small bilateral pleural effusions. 30 to 40% compression fracture T7 and T8 possibly acute. Acute left posterior eighth rib fracture. No pneumothorax. Thoracic aorta mildly calcified. No aneurysm or dissection. No pulmonary embolism. Severe coronary calcification. No pericardial effusion. CT angiogram of the abdomen pelvis abdominal aorta is mildly calcified. There is a 2.5 cm focal ectasia of the infrarenal aorta without aneurysm or dissection. No signs of rupture. No acute inflammatory changes. WBC 1.6, 11.3, platelet count 41. INR 1.3. Sodium 131, potassium 4.7, BUN 33, creatinine 1.19. Calcium 8. Magnesium 1.7. Total bilirubin 4.2, AST 44, ALT 20, alkaline phosphate 282. Troponin 0.064 and 0.297. Ammonia level 11. proBNP 2360. Urinalysis negative for infection. Home cardiac medications: Not confirmed Lexiscan stress test performed 02/22/2022 revealed limited exam fixed defect involving apex and inferior wall with small area of stress-induced reversible ischemia not excluded involving the inferior lateral myocardium EF 43%. Cardiac catheterization performed 07/06/[address] Ibrahim revealed occluded left circumflex in the midportion seems to be chronic occlusion and fills from the right coronary artery. Intermediate lesion involving the mid left anterior descending artery. Elevated left-sided filling pressure. Echocardiogram performed in the office on 10/09/2021 revealed EF 40 to 45%. Moderate concentric left hypertrophy. Mild aortic regurgitation. Mild to moderate mitral regurgitation. Mild tricuspid regurgitation. Normal pulmonary artery systolic pressure. Mild pulmonic regurgitation. 05/01 Patient is seen in follow up. Echocardiogram with EF 45%, mild MR and TR. BP 93/49, HR 88. Echo results reviewed with patient. 05/03/2023 Cardiology was reconsulted to evaluate patient secondary to new onset atrial fibrillation. Patient remains in atrial fibrillation this morning with controlled ventricular rate. Patient's blood pressures are low with a systolic in the 80s. She denies chest pain or pressure. She denies shortness of breath. 05/04/2023 Patient examined this morning at bedside. She remains lethargic. Family at the bedside. Telemetry reveals atrial fibrillation with a heart rate in the 90s. Blood pressure is stable. PHYSICAL EXAM: VITAL SIGNS: Reviewed. GENERAL: Well-developed in no acute distress. NECK: Supple. No JVD or thyromegaly LUNGS: Respirations even and unlabored. Lungs essentially clear to auscultation bilaterally. HEART: Irregular rate and rhythm. S1 and S2 heard. EXTREMITIES: Normal range of motion. No clubbing or cyanosis. Peripheral pulses intact. No lower extremity edema ASSESSMENT: Chest pain, musculoskeletal in nature, acute coronary syndrome has been ruled out. Left rib fracture New onset A-fib with controlled ventricular rate Urinary tract infection Compression fracture T7 and T8 Coronary artery disease status post prior angioplasty Chronic systolic heart failure Advanced cirrhosis with pancytopenia Chronic hypotension on midodrine History of hypertension Hyperlipidemia Pancytopenia PLAN: Continue current dose of metoprolol Continue oral amiodarone 200 mg twice a day for 2 weeks then decrease to 200 mg daily Continue telemetry monitoring No anticoagulation secondary to thrombocytopenia Further recommendations pending patient course Nurse practitioner note has been reviewed by physician. Signing provider agrees with the documented findings, assessment, and plan of care documented by SENIOR ANALYST DEVELOPER as a scribe. Objective - Vital Signs Vital signs: Vital Signs Temp 98.2 F 05/04/23 08:35 Pulse 81 05/04/23 08:35 Resp 18 05/04/23 08:35 BP 85/48 05/04/23 08:35 Pulse Ox 93 L 05/04/23 08:35 FiO2 Intake & Output 05/03/23 05/04/23 05/04/23 18:59 06:59 18:59 Intake Total 360 75 Output Total 50 Balance 360 25 Weight 58.967 kg Intake: Oral 360 75 Output: Urine 50 Uretheral (Hinds) 50 Other: Voiding Method Bedside Commode Bedside Commode Bedside Commode Bedpan Bedpan # Bowel Movements 1 1 - Labs CBC & Chem 7: 05/04/23 09:38 05/04/23 09:38 Labs: Abnormal Lab Results - Last 24 Hours (Table) 05/04/23 05/04/23 05/04/23 Range/Units 04:52 09:38 09:38 WBC 16.8 H (3.8-10.6) k/uL RBC 3.19 L (3.80-5.40) m/uL Hgb 10.4 L (11.4-16.0) gm/dL Hct 32.6 L (34.0-46.0) % MCV 102.4 H (80.0-100.0) fL RDW 16.3 H (11.5-15.5) % Plt Count 35 L (150-450) k/uL Sodium 131 L (137-145) mmol/L Potassium 5.4 H (3.5-5.1) mmol/L Carbon Dioxide 17 L (22-30) mmol/L BUN 61 H (7-17) mg/dL Creatinine 2.83 H (0.52-1.04) mg/dL Glucose 59 L (74-99) mg/dL POC Glucose (mg/dL) 166 H (70-110) mg/dL Calcium 7.6 L (8.4-10.2) mg/dL Total Bilirubin 3.0 H (0.2-1.3) mg/dL Alkaline Phosphatase 278 H (38-126) U/L Total Protein 4.6 L (6.3-8.2) g/dL Albumin 2.0 L (3.5-5.0) g/dL Microbiology - Last 24 Hours (Table) 05/02/23 21:04 Urine Culture - Final Urine,Voided
[2023-05-04 13:26] LABS: Appearance,Urine Turbid (Clear); Bacteria,Urine Rare /hpf; Bilirubin,Urine 2+ (Negative); Blood,Urine Moderate (Negative); Budding Yeast,Urine Few /hpf; Color,Urine Orange; Glucose,Urine (UA) Negative (Negative); Hyaline Casts,Urine 29 /lpf (0-2); Ketones,Urine Negative (Negative); Leukocyte Esterase,Urine Negative (Negative); Mucus,Urine Occasional /hpf; Nitrite,Urine Negative (Negative); PH, Urine 5.5 (5.0-8.0); Protein,Urine 2+ (Negative); RBC,Urine 60 /hpf (0-5); Squamous Epithelial Cell,Urine 7 /hpf (0-4); WBC,Urine 13 /hpf (0-5)
[2023-05-04] MEDS: FUROSEMIDE 10 MG/ML 10 ML VIAL IV STA (15:14)
[2023-05-04 16:14] LABS: Glucose,Whole Blood 106 mg/dL (70-110)
[2023-05-04 21:10] LABS: Glucose,Whole Blood 125 mg/dL (70-110)
[2023-05-05] MEDS: PRIMIDONE 25 MG TAB PO SCH (09:18)
[2023-05-05 10:06] LABS: ALT 17 U/L (4-34); AST 37 U/L (14-36); African American GFR (CKD) 16 (>60 ml/min/1.73 sqM); Albumin 2.2 g/dL (3.5-5.0); Alkaline Phosphatase 282 U/L (38-126); Anion Gap 7 mmol/L; Blood Urea Nitrogen 65 mg/dL (7-17); Calcium 7.4 mg/dL (8.4-10.2); Carbon Dioxide 19 mmol/L (22-30); Chloride 106 mmol/L (98-107); Glucose 86 mg/dL (74-99); Magnesium 2.8 mg/dL (1.6-2.3); Non-African American GFR(CKD) 14 (>60 ml/min/1.73 sqM); Potassium 5.3 mmol/L (3.5-5.1); Sodium 132 mmol/L (137-145); Total Bilirubin 1.9 mg/dL (0.2-1.3); Total Protein 4.7 g/dL (6.3-8.2)
[2023-05-05 10:13] LABS: Anisocytosis Slight; Basophils # (A) 0.1 k/uL (0-0.2); Basophils % (A) 0 %; Eosinophils # (A) 0.2 k/uL (0-0.7); Eosinophils % (A) 1 %; HCT 29.9 % (34.0-46.0); HGB 9.8 gm/dL (11.4-16.0); Hypochromasia Moderate; Lymphocytes # (A) 0.6 k/uL (1.0-4.8); Lymphocytes % (A) 5 %; MCH 33.2 pg (25.0-35.0); MCHC 32.9 g/dL (31.0-37.0); MCV 100.8 fL (80.0-100.0); Macrocytosis Slight; Mean Platelet Volume 12.3; Monocytes # (A) 0.7 k/uL (0-1.0); Monocytes % (A) 6 %; Neutrophils # (A) 10.6 k/uL (1.3-7.7); Neutrophils % (A) 83 %; Poikilocytosis Slight; RBC 2.96 m/uL (3.80-5.40); RDW 16.4 % (11.5-15.5); WBC 12.7 k/uL (3.8-10.6)
[2023-05-05 10:16] LABS: Platelet Count 35 k/uL (150-450)
--- NOTE | 2023-05-05 11:37 | P.PN ---
Subjective HISTORY OF PRESENT ILLNESS: This is this is an 82-year-old female patient of Dr. Iris Sheppard with past medical history of coronary artery disease status post prior angioplasty, chronic systolic heart failure, advanced cirrhosis with pancytopenia and fluid overload, chronic hypotension on midodrine, hypertension, hyperlipidemia. We have been asked to evaluate the patient for elevated troponin and chest wall pain. Patient states she presented to hospital due to shortness of breath and some chest discomfort. When asked about the compression fractures and rib fractures. She states that happened when she was working with physical therapy. She does not admit to any recent falls. She was recently seen by GI in the office and placed on antibiotics. Patient's blood pressure has been soft and she received IV fluid bolus of 2 L normal saline and also 3 doses of midodrine 5 mg each. EKG sinus rhythm with left bundle branch block, #2 sinus tachycardia with left bundle branch block and 120 bpm Chest x-ray: Lungs underinflated with prominent vascular and interstitial markings. Possible mild emphysema and or edema. 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 Small bilateral pleural effusions. 30 to 40% compression fracture T7 and T8 possibly acute. Acute left posterior eighth rib fracture. No pneumothorax. Thoracic aorta mildly calcified. No aneurysm or dissection. No pulmonary embolism. Severe coronary calcification. No pericardial effusion. CT angiogram of the abdomen pelvis abdominal aorta is mildly calcified. There is a 2.5 cm focal ectasia of the infrarenal aorta without aneurysm or dissection. No signs of rupture. No acute inflammatory changes. WBC 1.6, 11.3, platelet count 41. INR 1.3. Sodium 131, potassium 4.7, BUN 33, creatinine 1.19. Calcium 8. Magnesium 1.7. Total bilirubin 4.2, AST 44, ALT 20, alkaline phosphate 282. Troponin 0.064 and 0.297. Ammonia level 11. proBNP 2360. Urinalysis negative for infection. Home cardiac medications: Not confirmed Lexiscan stress test performed 02/22/2022 revealed limited exam fixed defect involving apex and inferior wall with small area of stress-induced reversible ischemia not excluded involving the inferior lateral myocardium EF 43%. Cardiac catheterization performed 07/06/[address] Ibrahim revealed occluded left circumflex in the midportion seems to be chronic occlusion and fills from the right coronary artery. Intermediate lesion involving the mid left anterior descending artery. Elevated left-sided filling pressure. Echocardiogram performed in the office on 10/09/2021 revealed EF 40 to 45%. Moderate concentric left hypertrophy. Mild aortic regurgitation. Mild to moderate mitral regurgitation. Mild tricuspid regurgitation. Normal pulmonary artery systolic pressure. Mild pulmonic regurgitation. 05/01 Patient is seen in follow up. Echocardiogram with EF 45%, mild MR and TR. BP 93/49, HR 88. Echo results reviewed with patient. 05/03/2023 Cardiology was reconsulted to evaluate patient secondary to new onset atrial fibrillation. Patient remains in atrial fibrillation this morning with controlled ventricular rate. Patient's blood pressures are low with a systolic in the 80s. She denies chest pain or pressure. She denies shortness of breath. 05/04/2023 Patient examined this morning at bedside. She remains lethargic. Family at the bedside. Telemetry reveals atrial fibrillation with a heart rate in the 90s. Blood pressure is stable. 05/05/2023 Patient examined this morning at the bedside. No family is present. Patient remains in atrial fibrillation with controlled ventricular rate. No complaints of chest pain or pressure. No complaints of shortness of breath. Blood pressure stable. PHYSICAL EXAM: VITAL SIGNS: Reviewed. GENERAL: Well-developed in no acute distress. NECK: Supple. No JVD or thyromegaly LUNGS: Respirations even and unlabored. Lungs essentially clear to auscultation bilaterally. HEART: Irregular rate and rhythm. S1 and S2 heard. EXTREMITIES: Normal range of motion. No clubbing or cyanosis. Peripheral pulses intact. No lower extremity edema ASSESSMENT: Chest pain, musculoskeletal in nature, acute coronary syndrome has been ruled out. Left rib fracture New onset A-fib with controlled ventricular rate Urinary tract infection Compression fracture T7 and T8 Coronary artery disease status post prior angioplasty Chronic systolic heart failure Advanced cirrhosis with pancytopenia Chronic hypotension on midodrine History of hypertension Hyperlipidemia Pancytopenia PLAN: Continue current dose of metoprolol Continue oral amiodarone 200 mg twice a day for 2 weeks then decrease to 200 mg daily Continue telemetry monitoring No anticoagulation secondary to thrombocytopenia We will sign off. Please reconsult if needed. Nurse practitioner note has been reviewed by physician. Signing provider agrees with the documented findings, assessment, and plan of care documented by PERSONAL TRAINER as a scribe. Objective - Vital Signs Vital signs: Vital Signs Temp 97.9 F 05/04/23 20:29 Pulse 98 02/22/24 08:00 Resp 16 05/05/23 08:00 BP 100/60 05/05/23 08:00 Pulse Ox 98 05/05/23 08:03 FiO2 Intake & Output 05/04/23 05/05/23 05/05/23 18:59 06:59 18:59 Intake Total 315 Output Total 50 Balance 265 Weight 58.967 kg Intake: Oral 315 Output: Urine 50 Uretheral (Hinds) 50 Other: Voiding Method Bedpan Bedside Commode Bedside Commode Bedpan Bedpan # Bowel Movements 1 1 1 - Labs CBC & Chem 7: 05/05/23 09:09 05/05/23 09:09 Labs: Abnormal Lab Results - Last 24 Hours (Table) 05/04/23 05/04/23 05/04/23 Range/Units 07:48 09:38 20:12 WBC (3.8-10.6) k/uL RBC (3.80-5.40) m/uL Hgb (11.4-16.0) gm/dL Hct (34.0-46.0) % MCV (80.0-100.0) fL RDW (11.5-15.5) % Plt Count 35 L (150-450) k/uL Neutrophils # (1.3-7.7) k/uL Lymphocytes # (1.0-4.8) k/uL Sodium (137-145) mmol/L Potassium (3.5-5.1) mmol/L Carbon Dioxide (22-30) mmol/L BUN (7-17) mg/dL Creatinine (0.52-1.04) mg/dL POC Glucose (mg/dL) 125 H (70-110) mg/dL Calcium (8.4-10.2) mg/dL Magnesium (1.6-2.3) mg/dL Total Bilirubin (0.2-1.3) mg/dL AST (14-36) U/L Alkaline Phosphatase (38-126) U/L Total Protein (6.3-8.2) g/dL Albumin (3.5-5.0) g/dL Urine Appearance Turbid H (Clear) Urine Protein 2+ H (Negative) Urine Blood Moderate H (Negative) Urine Bilirubin 2+ H (Negative) Urine RBC 60 H (0-5) /hpf Urine WBC 13 H (0-5) /hpf Urine WBC Clumps Moderate H (None) /hpf Ur Squamous Epith Cells 7 H (0-4) /hpf Urine Bacteria Rare H (None) /hpf Hyaline Casts 29 H (0-2) /lpf Urine Mucus Occasional H (None) /hpf Urine Yeast (Budding) Few H (None) /hpf 05/05/23 05/05/23 Range/Units 09:09 09:09 WBC 12.7 H (3.8-10.6) k/uL RBC 2.96 L (3.80-5.40) m/uL Hgb 9.8 L (11.4-16.0) gm/dL Hct 29.9 L (34.0-46.0) % MCV 100.8 H (80.0-100.0) fL RDW 16.4 H (11.5-15.5) % Plt Count 35 L (150-450) k/uL Neutrophils # 10.6 H (1.3-7.7) k/uL Lymphocytes # 0.6 L (1.0-4.8) k/uL Sodium 132 L (137-145) mmol/L Potassium 5.3 H (3.5-5.1) mmol/L Carbon Dioxide 19 L (22-30) mmol/L BUN 65 H (7-17) mg/dL Creatinine 3.07 H (0.52-1.04) mg/dL POC Glucose (mg/dL) (70-110) mg/dL Calcium 7.4 L (8.4-10.2) mg/dL Magnesium 2.8 H (1.6-2.3) mg/dL Total Bilirubin 1.9 H (0.2-1.3) mg/dL AST 37 H (14-36) U/L Alkaline Phosphatase 282 H (38-126) U/L Total Protein 4.7 L (6.3-8.2) g/dL Albumin 2.2 L (3.5-5.0) g/dL Urine Appearance (Clear) Urine Protein (Negative) Urine Blood (Negative) Urine Bilirubin (Negative) Urine RBC (0-5) /hpf Urine WBC (0-5) /hpf Urine WBC Clumps (None) /hpf Ur Squamous Epith Cells (0-4) /hpf Urine Bacteria (None) /hpf Hyaline Casts (0-2) /lpf Urine Mucus (None) /hpf Urine Yeast (Budding) (None) /hpf
[2023-05-05 11:45] LABS: Glucose,Whole Blood 83 mg/dL (70-110)
--- NOTE | 2023-05-05 13:42 | P.PN ---
Subjective Patient is seen for follow-up for acute kidney injury. Urine output has been low. Patient is maintained on IV fluids. She has not been eating or drinking much. Serum creatinine increased to 3.0, potassium is 5.3 today. is present at bedside and I discussed renal replacement therapy with the patient and her and patient refuses any kind of dialysis. Objective - Vital Signs Vital signs: Vital Signs Temp 97.9 F 05/04/23 20:29 Pulse 58 L 05/05/23 12:00 Resp 16 05/05/23 12:00 BP 96/54 05/05/23 12:00 Pulse Ox 100 05/05/23 12:00 FiO2 Intake & Output 05/04/23 05/05/23 05/05/23 18:59 06:59 18:59 Intake Total 315 Output Total 50 Balance 265 Weight 58.967 kg Intake: Oral 315 Output: Urine 50 Uretheral (Hinds) 50 Other: Voiding Method Bedpan Bedside Commode Bedside Commode Bedpan Bedpan # Bowel Movements 1 1 1 - Exam Patient is sleeping but arousable. She seems to comprehend well. No acute distress Examination of the heart S1 and S2 Examination of the lungs shows decreased breath sounds at the bases Abdomen is soft nontender Examination of lower extremities shows no edema - Labs CBC & Chem 7: 05/05/23 09:09 05/05/23 09:09 Labs: Abnormal Lab Results - Last 24 Hours (Table) 05/04/23 05/05/23 05/05/23 Range/Units 20:12 09:09 09:09 WBC 12.7 H (3.8-10.6) k/uL RBC 2.96 L (3.80-5.40) m/uL Hgb 9.8 L (11.4-16.0) gm/dL Hct 29.9 L (34.0-46.0) % MCV 100.8 H (80.0-100.0) fL RDW 16.4 H (11.5-15.5) % Plt Count 35 L (150-450) k/uL Neutrophils # 10.6 H (1.3-7.7) k/uL Lymphocytes # 0.6 L (1.0-4.8) k/uL Sodium 132 L (137-145) mmol/L Potassium 5.3 H (3.5-5.1) mmol/L Carbon Dioxide 19 L (22-30) mmol/L BUN 65 H (7-17) mg/dL Creatinine 3.07 H (0.52-1.04) mg/dL POC Glucose (mg/dL) 125 H (70-110) mg/dL Calcium 7.4 L (8.4-10.2) mg/dL Magnesium 2.8 H (1.6-2.3) mg/dL Total Bilirubin 1.9 H (0.2-1.3) mg/dL AST 37 H (14-36) U/L Alkaline Phosphatase 282 H (38-126) U/L Total Protein 4.7 L (6.3-8.2) g/dL Albumin 2.2 L (3.5-5.0) g/dL Assessment and Plan Assessment: 1. Acute kidney injury, oliguric ATN secondary to hypotension and NSAIDs which patient was taking at home. UA shows 1+ protein and trace blood and WBCs 16. Ultrasound of the kidneys shows right kidney 10.0 cm left kidney 8.4 cm no hydronephrosis noted. Currently maintained on IV fluids. 2. Non-gap metabolic acidosis secondary to acute kidney injury 3. Hyperkalemia associated with acute kidney injury 4. Non-ST elevation LA 5. History of liver cirrhosis 6. Encephalopathy , seems to have improved. Plan: Continue IV fluids Change to IV bicarb Continue midodrine to 10 mg 3 times a day Continue empiric antibiotics Insert Hinds catheter No plans for renal replacement therapy as patient refuses any kind of dialysis if indicated down the road.
[2023-05-05] MEDS: DEXTROSE 5% IN WATER 1,000 ML with SODIUM BICARB (1 MEQ/ML) 150 ML IV SCH (14:52)
--- NOTE | 2023-05-05 15:34 | P.PN ---
Subjective Progress Note Date: 05/05/23 Principal diagnosis: Reason for follow-up is leukocytosis and UTI Patient is a 82-year-old female with a past medical history significant for hypertension hyperlipidemia thrombocytopenia cirrhosis of the liver MS osteoarthritis patient was brought into the ER for evaluation of chest pain patient subsequently did have significant worsening of her mentation did have a positive UA concerning for possible component of UTI On today's evaluation that is 05/05/2023,the patient is slightly more awake and alert today, denies any fever or any chills, patient is breathing comfortably on 2 L nasal cannula oxygen, the patient denies chest pain shortness of breath and no significant cough, patient denies abdominal pain, no nausea vomiting has been complaining of some diarrhea. Patient white count is down to 12.7 creatinine 3.07 Objective - Vital Signs Vital signs: Vital Signs Temp 97.9 F 05/04/23 20:29 Pulse 58 L 05/05/23 12:00 Resp 16 05/05/23 12:00 BP 96/54 05/05/23 12:00 Pulse Ox 100 05/05/23 12:00 FiO2 Intake & Output 05/04/23 05/05/23 05/05/23 18:59 06:59 18:59 Intake Total 315 Output Total 50 Balance 265 Weight 58.967 kg Intake: Oral 315 Output: Urine 50 Uretheral (Hinds) 50 Other: Voiding Method Bedpan Bedside Commode Bedside Commode Bedpan Bedpan # Bowel Movements 1 1 1 - Exam GENERAL DESCRIPTION: An elderly Female lying in bed in no distress RESPIRATORY SYSTEM: Unlabored breathing , decreased breath sounds at bases HEART: S1 S2 regular rate and rhythm , ABDOMEN: Soft , no tenderness EXTREMITIES: No edema feet - Labs CBC & Chem 7: 05/05/23 09:09 05/05/23 09:09 Labs: Abnormal Lab Results - Last 24 Hours (Table) 05/04/23 05/05/23 05/05/23 Range/Units 20:12 09:09 09:09 WBC 12.7 H (3.8-10.6) k/uL RBC 2.96 L (3.80-5.40) m/uL Hgb 9.8 L (11.4-16.0) gm/dL Hct 29.9 L (34.0-46.0) % MCV 100.8 H (80.0-100.0) fL RDW 16.4 H (11.5-15.5) % Plt Count 35 L (150-450) k/uL Neutrophils # 10.6 H (1.3-7.7) k/uL Lymphocytes # 0.6 L (1.0-4.8) k/uL Sodium 132 L (137-145) mmol/L Potassium 5.3 H (3.5-5.1) mmol/L Carbon Dioxide 19 L (22-30) mmol/L BUN 65 H (7-17) mg/dL Creatinine 3.07 H (0.52-1.04) mg/dL POC Glucose (mg/dL) 125 H (70-110) mg/dL Calcium 7.4 L (8.4-10.2) mg/dL Magnesium 2.8 H (1.6-2.3) mg/dL Total Bilirubin 1.9 H (0.2-1.3) mg/dL AST 37 H (14-36) U/L Alkaline Phosphatase 282 H (38-126) U/L Total Protein 4.7 L (6.3-8.2) g/dL Albumin 2.2 L (3.5-5.0) g/dL Assessment and Plan (1) Leukocytosis Current Visit: Yes Status: Acute Code(s): D72.829 - ELEVATED WHITE BLOOD CELL COUNT, UNSPECIFIED SNOMED Code(s): 970772735 (2) Allergy to multiple antibiotics Current Visit: Yes Status: Acute Code(s): Z88.1 - ALLERGY STATUS TO OTHER ANTIBIOTIC AGENTS SNOMED Code(s): 797193610 (3) Urinary tract infection Current Visit: No Status: Acute Code(s): N39.0 - URINARY TRACT INFECTION, SITE NOT SPECIFIED SNOMED Code(s): 70048782 Plan: 1patient with a mental status change which is likely multifactorial due to an episode of vomiting and a positive UA defect, UA on admission that was negative and the patient last urine culture done on 04/26/2023 was ESBL E. coli could be the same pathogen 2-patient did have some clinical improvement of the patient white count is trending down, patient to continue with Invanz and monitor clinical course closely Dictation was produced using HDmessagingation software. please excuse any grammatical, word or spelling errors. Time with Patient: Less than 30
[2023-05-05 16:21] LABS: Glucose,Whole Blood 155 mg/dL (70-110)
--- NOTE | 2023-05-05 16:27 | P.PN ---
Subjective Progress Note Date: 05/05/23 Hospital Course: 82-year-old female with history of liver cirrhosis, CAD status post stent, chronic systolic heart failure, hypertension, dyslipidemia, chronic pancytopenia, ITP presented with chest pain and shortness of breath. On initial presentation, patient was tachycardic, tachypneic, saturating well on room air. EKG showed sinus tachycardia with known left bundle branch block. Chest x-ray showed pulmonary vascular interstitial markings. 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 CBC showing pancytopenia with WBC count of 1.6, hemoglobin 11.3, platelet count of 41. Coagulation profile showing elevated INR of 1.3. BMP showing hyponatremia with sodium of 131, elevated BUN of 33, creatinine 1.19, GFR 43. Liver profile showing elevated total bili of 4.2, AST of 44, ALT of 20, and alkaline phosphatase of 282. Troponin 0.064 and proBNP 2360. Troponin continues to uptrend. Cardiology was consulted. No invasive procedures recommended by cardiology. Echocardiogram showed mild LV systolic function decrease, severely enlarged left atrium. Orthopedic surgery was consulted, not recommending any interventions. Patient did get slightly more encephalopathic yesterday, and had low blood sugars, previous urinalysis was positive, urine culture was positive for ESBL. Repeat urinalysis shows a dirty sample. However, ID is consulted, patient is on IV antibiotics. Patient also developing oliguric SCOOTER. Subjective: Pt remains quite confused today. Vitals Signs Reviewed. General: Nontoxic, no distress, appears at stated age Derm: Warm, dry, jaundice Head: Atraumatic, normocephalic, symmetric Eyes: EOMI, no lid lag, scleral icterus Mouth: No lip lesion, mucus membranes moist Cardiovascular: S1S2 reg, no murmur Lungs: CTA bilateral, no rhonchi, no rales, no accessory muscle use Abdominal: Soft, nontender to palpation, no guarding, no appreciable organomegaly Ext: No gross muscle atrophy, no edema, no contractures Neuro: CN II-XI grossly intact, no focal neuro deficits Psych: Alert, oriented x 1, appropriate affect Data Reviewed Today: Pertinent Labs: CBC and CMP pending, will be reviewed when available, repeat ur inalysis pending. Urine cultures showed normal genital lukas. Blood sugars range between 80-1 66 Imaging: Abdominal ultrasound showed no evidence of ascites. Assessment and Plan: Patient is severely ill, prognosis guarded Active: Acute metabolic encephalopathy Severe sepsis, unclear source Questionable urinary tract infection, prior cultures growing ESBL Oliguric acute kidney injury Hyponatremia Isolated hypoglycemia Liver cirrhosis Pancytopenia Hyperbilirubinemia -Urine culture showed normal genital lukas, repeat UA still pending Patient did have bandemia on initial presentation, and now has leukocytosis Per daughter, patient had a recent dental abscess, went untreated. CT abdomen pelvis and CT face ordered without contrast ID is following, patient currently on ertapenem 0.5 g IV daily Patient is fluid responsive, in light of minimal urine output, patient started on lactated Ringer's at 100 cc an hour Also continue midodrine 5 AC 3 times daily, may need to increase to 10 Nephrology also consulted, pending recommendations Repeat CBC and CMP pending, will be reviewed when available - Unclear why patient is on primidone, however due to encephalopathy, decrease dose to 25 daily - Lactulose 30 g 3 times daily, titrate to 2-3 bowel movements per day NSTEMI, likely type II New onset Afib with controlled ventricular rate History of CAD status post stent -Cardiology recommending medical management for NSTEMI -Continue aspirin 81 mg, on pravastatin 80 mg -On amiodarone 200 twice daily for rate control, no anticoagulation due to thrombocytopenia -Continue home metoprolol 12.5 daily Compression fracture of T7 and T8 Acute left posterior eighth rib fracture Fracture of the coronoid process of the left scapula -Orthopedic surgery signed off, patient not a surgical candidate Thyroid mass -Outpatient follow-up DVT ppx: Patient is thrombocytopenic Code status: Full code Anticipated discharge place: Pending clinical course Anticipated discharge time: Pending clinical course Objective - Vital Signs Vital signs: Vital Signs Temp 97.9 F 05/04/23 20:29 Pulse 58 L 05/05/23 12:00 Resp 16 05/05/23 12:00 BP 96/54 05/05/23 12:00 Pulse Ox 100 05/05/23 12:00 FiO2 Intake & Output 05/04/23 05/05/2305/05/24 18:59 06:59 18:59 Intake Total 315 Output Total 50 Balance 265 Weight 58.967 kg Intake: Oral 315 Output: Urine 50 Uretheral (Hinds) 50 Other: Voiding Method Bedpan Bedside Commode Bedside Commode Bedpan Bedpan # Bowel Movements 1 1 1 - Labs CBC & Chem 7: 05/05/23 09:09 05/05/23 09:09 Labs: Abnormal Lab Results - Last 24 Hours (Table) 05/04/23 05/05/23 05/05/23 Range/Units 20:12 09:09 09:09 WBC 12.7 H (3.8-10.6) k/uL RBC 2.96 L (3.80-5.40) m/uL Hgb 9.8 L (11.4-16.0) gm/dL Hct 29.9 L (34.0-46.0) % MCV 100.8 H (80.0-100.0) fL RDW 16.4 H (11.5-15.5) % Plt Count 35 L (150-450) k/uL Neutrophils # 10.6 H (1.3-7.7) k/uL Lymphocytes # 0.6 L (1.0-4.8) k/uL Sodium 132 L (137-145) mmol/L Potassium 5.3 H (3.5-5.1) mmol/L Carbon Dioxide 19 L (22-30) mmol/L BUN 65 H (7-17) mg/dL Creatinine 3.07 H (0.52-1.04) mg/dL POC Glucose (mg/dL) 125 H (70-110) mg/dL Calcium 7.4 L (8.4-10.2) mg/dL Magnesium 2.8 H (1.6-2.3) mg/dL Total Bilirubin 1.9 H (0.2-1.3) mg/dL AST 37 H (14-36) U/L Alkaline Phosphatase 282 H (38-126) U/L Total Protein 4.7 L (6.3-8.2) g/dL Albumin 2.2 L (3.5-5.0) g/dL
[2023-05-05 20:23] LABS: Glucose,Whole Blood 172 mg/dL (70-110)
[2023-05-06 06:01] LABS: Glucose,Whole Blood 133 mg/dL (70-110)
--- NOTE | 2023-05-06 11:00 | P.PN ---
Subjective Patient is seen for follow-up for acute kidney injury. Patient is maintained on IV fluids. Urine output charted at 300 mL overnight. She has not been eating or drinking much. Serum creatinine increased to 3.0, potassium is 5.3 yesterday. Labs are pending from today.. Daughter is present at bedside and family states that they would like to proceed with renal replacement therapy if indicated. Mentation is improved from 2 days ago. Patient did have HER breakfast this morning. Objective - Vital Signs Vital signs: Vital Signs Temp 97.9 F 05/04/23 20:29 Pulse 69 05/06/23 04:49 Resp 16 05/06/23 04:49 BP 116/56 05/06/23 04:49 Pulse Ox 93 L 05/06/23 04:49 FiO2 Intake & Output 05/05/23 05/06/23 05/06/23 18:59 06:59 18:59 Intake Total 0 100 Output Total 300 Balance -300 100 Intake: Oral 0 100 Output: Urine 300 Other: Voiding Method Bedside Commode Indwelling Catheter Bedpan # Bowel Movements 1 1 - Exam Patient is sleeping but arousable. She seems to comprehend. 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 - Labs CBC & Chem 7: 05/05/23 09:09 05/05/23 09:09 Labs: Abnormal Lab Results - Last 24 Hours (Table) 05/05/23 05/05/23 05/06/23 Range/Units 16:19 20:20 06:00 POC Glucose (mg/dL) 155 H 172 H 133 H (70-110) mg/dL Assessment and Plan Assessment: 1. Acute kidney injury, oliguric ATN secondary to hypotension and NSAIDs which patient was taking at home. UA shows 1+ protein and trace blood and WBCs 16. Ultrasound of the kidneys shows right kidney 10.0 cm left kidney 8.4 cm no hydronephrosis noted. Currently maintained on IV fluids. 2. Non-gap metabolic acidosis secondary to acute kidney injury 3. Hyperkalemia associated with acute kidney injury 4. Non-ST elevation PR 5. History of liver cirrhosis 6. Encephalopathy , seems to have improved. 7. History of dental abscess and currently tenderness noted in the right mandible area. Status post CT of the face which showed soft tissue density on the left side. ENT is on consult. Plan: Continue IV bicarb Continue midodrine to 10 mg 3 times a day Continue empiric antibiotics Continue with Hinds catheter Family has decided to proceed with renal replacement therapy if renal function continues to worsen.
[2023-05-06 11:25] LABS: Glucose,Whole Blood 147 mg/dL (70-110)
--- NOTE | 2023-05-06 11:43 | P.PN ---
Subjective Progress Note Date: 05/06/23 Hospital Course: 82-year-old female with history of liver cirrhosis, CAD status post stent, chronic systolic heart failure, hypertension, dyslipidemia, chronic pancytopenia, ITP presented with chest pain and shortness of breath. On initial presentation, patient was tachycardic, tachypneic, saturating well on room air. EKG showed sinus tachycardia with known left bundle branch block. Chest x-ray showed pulmonary vascular interstitial markings. 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 CBC showing pancytopenia with WBC count of 1.6, hemoglobin 11.3, platelet count of 41. Coagulation profile showing elevated INR of 1.3. BMP showing hyponatremia with sodium of 131, elevated BUN of 33, creatinine 1.19, GFR 43. Liver profile showing elevated total bili of 4.2, AST of 44, ALT of 20, and alkaline phosphatase of 282. Troponin 0.064 and proBNP 2360. Troponin continues to uptrend. Cardiology was consulted. No invasive procedures recommended by cardiology. Echocardiogram showed mild LV systolic function decrease, severely enlarged left atrium. Orthopedic surgery was consulted, not recommending any interventions. Patient did get slightly more encephalopathic yesterday, and had low blood sugars, previous urinalysis was positive, urine culture was positive for ESBL. Repeat urinalysis shows a dirty sample. However, ID is consulted, patient is on IV antibiotics. Patient also developing oliguric SCOOTER. Subjective: Pts confusion ahs improved. Only major complaint is foot pain b/l. She is noted to have neck mass on CT of the face - ENT consulted. Vitals Signs Reviewed. General: Nontoxic, no distress, appears at stated age Derm: Warm, dry, jaundice Head: Atraumatic, normocephalic, symmetric Eyes: EOMI, no lid lag, scleral icterus Mouth: No lip lesion, mucus membranes moist Cardiovascular: S1S2 reg, no murmur Lungs: CTA bilateral, no rhonchi, no rales, no accessory muscle use Abdominal: Soft, nontender to palpation, no guarding, no appreciable organomegaly Ext: No gross muscle atrophy, no edema, no contractures Neuro: CN II-XI grossly intact, no focal neuro deficits Psych: Alert, oriented x 1, appropriate affect Data Reviewed Today: Pertinent Labs: CBC and CMP pending, will be reviewed when available, repeat ur inalysis pending. Urine cultures showed normal genital lukas. Blood sugars range between 80-1 66 Imaging: Abdominal ultrasound showed no evidence of ascites. Assessment and Plan: Patient is severely ill, prognosis guarded Active: Acute metabolic encephalopathy Severe sepsis, unclear source Questionable urinary tract infection, prior cultures growing ESBL Oliguric acute kidney injury Hyponatremia Isolated hypoglycemia Liver cirrhosis Pancytopenia Hyperbilirubinemia -Urine culture showed normal genital lukas, repeat UA still pending Patient did have bandemia on initial presentation, and now has leukocytosis Per daughter, patient had a recent dental abscess, went untreated. - CT face showed neck mass of 3 x 4 cm with inflammatory changes - possible abscess ID is following, patient currently on ertapenem 0.5 g IV daily Patient is fluid responsive, in light of minimal urine output, patient started on lactated Ringer's at 100 cc an hour Also continue midodrine 5 AC 3 times daily, may need to increase to 10 Nephrology also consulted, pending recommendations Repeat CBC and CMP pending, will be reviewed when available - Unclear why patient is on primidone, however due to encephalopathy, decrease dose to 25 daily - Lactulose 30 g 3 times daily, titrate to 2-3 bowel movements per day NSTEMI, likely type II New onset Afib with controlled ventricular rate History of CAD status post stent -Cardiology recommending medical management for NSTEMI -Continue aspirin 81 mg, on pravastatin 80 mg -On amiodarone 200 twice daily for rate control, no anticoagulation due to th rombocytopenia -Continue home metoprolol 12.5 daily Compression fracture of T7 and T8 Acute left posterior eighth rib fracture Fracture of the coronoid process of the left scapula -Orthopedic surgery signed off, patient not a surgical candidate Thyroid mass -Outpatient follow-up DVT ppx: Patient is thrombocytopenic Code status: Full code Anticipated discharge place: Pending clinical course Anticipated discharge time: Pending clinical course Objective - Vital Signs Vital signs: Vital Signs Temp 97.6 F 05/06/23 08:00 Pulse 68 05/06/23 11:38 Resp 16 05/06/23 11:38 BP 120/62 05/06/23 11:38 Pulse Ox 90 L 05/06/23 11:38 FiO2 Intake & Output 05/05/23 05/06/23 05/06/23 18:59 06:59 18:59 Intake Total 0 100 Output Total 300 Balance -300 100 Weight 58.967 kg Intake: Oral 0 100 Output: Urine 300 Other: Voiding Method Bedside Commode Indwelling Catheter Indwelling Catheter Bedpan # Bowel Movements 1 1 - Labs CBC & Chem 7: 05/05/23 09:09 05/05/23 09:09 Labs: Abnormal Lab Results - Last 24 Hours (Table) 05/05/23 05/05/23 05/06/23 Range/Units 16:19 20:20 06:00 POC Glucose (mg/dL) 155 H 172 H 133 H (70-110) mg/dL 05/06/23 Range/Units 11:22 POC Glucose (mg/dL) 147 H (70-110) mg/dL
[2023-05-06 12:30] LABS: INR 1.1 (<1.2); Prothrombin Time 12.2 sec (10.0-12.5)
--- NOTE | 2023-05-06 12:30 | P.PN ---
Subjective Progress Note Date: 05/06/23 Principal diagnosis: Reason for follow-up is leukocytosis and UTI Patient is a 82-year-old female with a past medical history significant for hypertension hyperlipidemia thrombocytopenia cirrhosis of the liver [place] osteoarthritis patient was brought into the ER for evaluation of chest pain patient subsequently did have significant worsening of her mentation did have a positive UA concerning for possible component of UTI On today's evaluation that is 05/06/2023,the patient remains to be afebrile, patient is on 2 L nasal cannula supplemental oxygen, patient complaining of not feeling well denies any nausea vomiting denies any chest pain shortness of breath or cough some abdominal discomfort and diarrhea has been complaining of some discomfort to the lower jaw teeth but no significant pain to the neck area. Patient labs pending from this morning her white count was down to 12.7 as of yesterday and creatinine was 3.07 Objective - Vital Signs Vital signs: Vital Signs Temp 97.6 F 05/06/23 08:00 Pulse 68 05/06/23 11:38 Resp 16 05/06/23 11:38 BP 120/62 05/06/23 11:38 Pulse Ox 90 L 05/06/23 11:38 FiO2 Intake & Output 05/05/23 05/06/23 05/06/23 18:59 06:59 18:59 Intake Total 0 100 Output Total 300 Balance -300 100 Weight 58.967 kg Intake: Oral 0 100 Output: Urine 300 Other: Voiding Method Bedside Commode Indwelling Catheter Indwelling Catheter Bedpan # Bowel Movements 1 1 - Exam GENERAL DESCRIPTION: An elderly Female lying in bed in no distress HEENT: Patient did have poor dentition to the lower jaw with a significant to the left lower jaw area no swelling induration or tenderness to the neck area was noticed RESPIRATORY SYSTEM: Unlabored breathing , decreased breath sounds at bases HEART: S1 S2 regular rate and rhythm , ABDOMEN: Soft , no tenderness EXTREMITIES: No edema feet - Labs CBC & Chem 7: 05/05/23 09:09 05/05/23 09:09 Labs: Abnormal Lab Results - Last 24 Hours (Table) 05/05/23 05/05/23 05/06/23 Range/Units 16:19 20:20 06:00 POC Glucose (mg/dL) 155 H 172 H 133 H (70-110) mg/dL 05/06/23 Range/Units 11:22 POC Glucose (mg/dL) 147 H (70-110) mg/dL Assessment and Plan (1) Leukocytosis Current Visit: Yes Status: Acute Code(s): D72.829 - ELEVATED WHITE BLOOD CELL COUNT, UNSPECIFIED SNOMED Code(s): 764684241 (2) Allergy to multiple antibiotics Current Visit: Yes Status: Acute Code(s): Z88.1 - ALLERGY STATUS TO OTHER ANTIBIOTIC AGENTS SNOMED Code(s): 594718036 (3) Urinary tract infection Current Visit: No Status: Acute Code(s): N39.0 - URINARY TRACT INFECTION, SITE NOT SPECIFIED SNOMED Code(s): 01093493 Plan: 1patient with a mental status change which is likely multifactorial due to an episode of vomiting and a positive UA defect, UA on admission that was negative and the patient last urine culture done on 04/26/2023 was ESBL E. coli could be the same pathogen 2-patient noticed to have significant abnormality on the CT of the neck area clinically no significant findings except bad dentition ENT has been consulted patient white count is trending down with Invanz which should provide adequate coverage for any dental infection this has been explained to the daughter in layman terms multiple question concern answered Dictation was produced using [employer] dictation software. please excuse any grammatical, word or spelling errors. Time with Patient: Less than 30
[2023-05-06 12:38] LABS: ALT 20 U/L (4-34); AST 48 U/L (14-36); African American GFR (CKD) 16 (>60 ml/min/1.73 sqM); Albumin 2.2 g/dL (3.5-5.0); Alkaline Phosphatase 288 U/L (38-126); Anion Gap 7 mmol/L; Bilirubin, Delta 1.1 mg/dL (0.0-0.2); Bilirubin,Unconjugated 0.5 mg/dL (0.0-1.1); Blood Urea Nitrogen 71 mg/dL (7-17); Calcium 6.9 mg/dL (8.4-10.2); Carbon Dioxide 22 mmol/L (22-30); Chloride 102 mmol/L (98-107); Glucose 125 mg/dL (74-99); Magnesium 2.7 mg/dL (1.6-2.3); Non-African American GFR(CKD) 14 (>60 ml/min/1.73 sqM); Potassium 4.9 mmol/L (3.5-5.1); Sodium 131 mmol/L (137-145); Total Bilirubin 1.6 mg/dL (0.2-1.3); Total Protein 4.7 g/dL (6.3-8.2)
[2023-05-06 12:53] LABS: Basophils % (A) 0 %; Eosinophils # (A) 0.3 k/uL (0-0.7); Eosinophils % (A) 2 %; HCT 32.3 % (34.0-46.0); HGB 10.4 gm/dL (11.4-16.0); Hypochromasia Moderate; Lymphocytes # (A) 0.7 k/uL (1.0-4.8); Lymphocytes % (A) 6 %; MCH 32.6 pg (25.0-35.0); MCHC 32.4 g/dL (31.0-37.0); MCV 100.7 fL (80.0-100.0); Macrocytosis Slight; Mean Platelet Volume 12.1; Monocytes # (A) 0.7 k/uL (0-1.0); Monocytes % (A) 6 %; Neutrophils # (A) 9.3 k/uL (1.3-7.7); Neutrophils % (A) 82 %; Poikilocytosis Slight; WBC 11.4 k/uL (3.8-10.6)
[2023-05-06 12:57] LABS: Platelet Count 45 k/uL (150-450)
[2023-05-06 16:31] LABS: Glucose,Whole Blood 144 mg/dL (70-110)
[2023-05-06 20:13] LABS: Glucose,Whole Blood 156 mg/dL (70-110)
[2023-05-07 00:37] LABS: Glucose,Whole Blood 139 mg/dL (70-110)
[2023-05-07 04:17] LABS: Glucose,Whole Blood 143 mg/dL (70-110)
[2023-05-07 08:14] LABS: Glucose,Whole Blood 154 mg/dL (70-110)
[2023-05-07] MEDS: GABAPENTIN 100 MG CAP PO SCH (09:28)
--- NOTE | 2023-05-07 10:25 | P.PN ---
Subjective Patient is seen for follow-up for acute kidney injury. Patient is maintained on IV fluids. Urine output charted at 375 mL overnight. She has not been eating or drinking much. Serum creatinine staying at 3.0. Labs are pending from today.. Patient is complaining of severe pain in the left leg. Objective - Vital Signs Vital signs: Vital Signs Temp 97.7 F 05/07/23 04:17 Pulse 64 05/07/23 04:17 Resp 20 05/07/23 04:17 BP 112/65 05/07/23 04:17 Pulse Ox 97 05/07/23 04:17 FiO2 Intake & Output 05/06/23 05/07/23 05/07/23 18:59 06:59 18:59 Intake Total 458 300 Output Total 225 150 Balance 233 150 Weight 58.967 kg Intake: Oral 458 300 Output: Urine 225 150 Other: Voiding Method Indwelling Catheter Indwelling Catheter # Bowel Movements 2 - Exam Patient is sleeping but arousable. She seems to comprehend. No acute distress Examination of the heart S1 and S2 Examination of the lungs shows decreased breath sounds at the bases Abdomen is soft nontender Examination of lower extremities shows no edema - Labs CBC & Chem 7: 05/06/23 11:42 05/06/23 11:42 Labs: Abnormal Lab Results - Last 24 Hours (Table) 05/06/23 05/06/23 05/06/23 Range/Units 11:22 11:42 11:42 WBC 11.4 H (3.8-10.6) k/uL RBC 3.20 L (3.80-5.40) m/uL Hgb 10.4 L (11.4-16.0) gm/dL Hct 32.3 L (34.0-46.0) % MCV 100.7 H (80.0-100.0) fL RDW 16.0 H (11.5-15.5) % Plt Count 45 L (150-450) k/uL Neutrophils # 9.3 H (1.3-7.7) k/uL Lymphocytes # 0.7 L (1.0-4.8) k/uL Sodium 131 L (137-145) mmol/L BUN 71 H (7-17) mg/dL Creatinine 3.03 H (0.52-1.04) mg/dL Glucose 125 H (74-99) mg/dL POC Glucose (mg/dL) 147 H (70-110) mg/dL Calcium 6.9 L (8.4-10.2) mg/dL Magnesium 2.7 H (1.6-2.3) mg/dL Total Bilirubin 1.6 H (0.2-1.3) mg/dL Delta Bilirubin 1.1 H (0.0-0.2) mg/dL AST 48 H (14-36) U/L Alkaline Phosphatase 288 H (38-126) U/L Total Protein 4.7 L (6.3-8.2) g/dL Albumin 2.2 L (3.5-5.0) g/dL 05/06/23 05/06/23 05/07/23 Range/Units 16:29 20:11 00:36 WBC (3.8-10.6) k/uL RBC (3.80-5.40) m/uL Hgb (11.4-16.0) gm/dL Hct (34.0-46.0) % MCV (80.0-100.0) fL RDW (11.5-15.5) % Plt Count (150-450) k/uL Neutrophils # (1.3-7.7) k/uL Lymphocytes # (1.0-4.8) k/uL Sodium (137-145) mmol/L BUN (7-17) mg/dL Creatinine (0.52-1.04) mg/dL Glucose (74-99) mg/dL POC Glucose (mg/dL) 144 H 156 H 139 H (70-110) mg/dL Calcium (8.4-10.2) mg/dL Magnesium (1.6-2.3) mg/dL Total Bilirubin (0.2-1.3) mg/dL Delta Bilirubin (0.0-0.2) mg/dL AST (14-36) U/L Alkaline Phosphatase (38-126) U/L Total Protein (6.3-8.2) g/dL Albumin (3.5-5.0) g/dL 05/07/23 05/07/23 Range/Units 04:15 08:10 WBC (3.8-10.6) k/uL RBC (3.80-5.40) m/uL Hgb (11.4-16.0) gm/dL Hct (34.0-46.0) % MCV (80.0-100.0) fL RDW (11.5-15.5) % Plt Count (150-450) k/uL Neutrophils # (1.3-7.7) k/uL Lymphocytes # (1.0-4.8) k/uL Sodium (137-145) mmol/L BUN (7-17) mg/dL Creatinine (0.52-1.04) mg/dL Glucose (74-99) mg/dL POC Glucose (mg/dL) 143 H 154 H (70-110) mg/dL Calcium (8.4-10.2) mg/dL Magnesium (1.6-2.3) mg/dL Total Bilirubin (0.2-1.3) mg/dL Delta Bilirubin (0.0-0.2) mg/dL AST (14-36) U/L Alkaline Phosphatase (38-126) U/L Total Protein (6.3-8.2) g/dL Albumin (3.5-5.0) g/dL Assessment and Plan Assessment: 1. Acute kidney injury, oliguric ATN secondary to hypotension and NSAIDs which patient was taking at home. UA shows 1+ protein and trace blood and WBCs 16. Ultrasound of the kidneys shows right kidney 10.0 cm left kidney 8.4 cm no hydronephrosis noted. Currently maintained on IV fluids. 2. Non-gap metabolic acidosis secondary to acute kidney injury 3. Hyperkalemia associated with acute kidney injury 4. Non-ST elevation VA 5. History of liver cirrhosis 6. Encephalopathy , seems to have improved. 7. History of dental abscess and currently tenderness noted in the right mandible area. Status post CT of the face which showed soft tissue density on the left side. ENT is on consult. Plan: Continue IV bicarb Continue midodrine to 10 mg 3 times a day Continue empiric antibiotics Continue with Hinds catheter Family has decided to proceed with renal replacement therapy if renal function continues to worsen. No acute indication for hemodialysis so far.
--- NOTE | 2023-05-07 11:29 | P.PN ---
Subjective Progress Note Date: 05/07/23 Principal diagnosis: Reason for follow-up is leukocytosis and UTI Patient is a 82-year-old female with a past medical history significant for hypertension hyperlipidemia thrombocytopenia cirrhosis of the liver [place] osteoarthritis patient was brought into the ER for evaluation of chest pain patient subsequently did have significant worsening of her mentation did have a positive UA concerning for possible component of UTI On today's evaluation that is 05/07/2023, the patient continues to be afebrile, the patient is on 2 L nasal cannula oxygen and breathing comfortably, the Pt denies having any chest pain occasional cough, the patient denies having any abdominal pain no vomiting or any diarrhea has been reported by the nursing staff, denies pain to the left lower jaw. No new labs has been obtained today white count was down to 11.4 as of yesterday Objective - Vital Signs Vital signs: Vital Signs Temp 97.7 F 05/07/23 04:17 Pulse 64 05/07/23 04:17 Resp 20 05/07/23 04:17 BP 112/65 05/07/23 04:17 Pulse Ox 97 05/07/23 04:17 FiO2 Intake & Output 05/06/23 05/07/23 05/07/23 18:59 06:59 18:59 Intake Total 458 300 Output Total 225 150 Balance 233 150 Weight 58.967 kg Intake: Oral 458 300 Output: Urine 225 150 Other: Voiding Method Indwelling Catheter Indwelling Catheter # Bowel Movements 2 - Exam GENERAL DESCRIPTION: An elderly Female lying in bed in no distress HEENT: Patient did have poor dentition to the lower jaw with a significant to the left lower jaw area no swelling induration or tenderness to the neck area was noticed RESPIRATORY SYSTEM: Unlabored breathing , decreased breath sounds at bases HEART: S1 S2 regular rate and rhythm , ABDOMEN: Soft , no tenderness EXTREMITIES: No edema feet - Labs CBC & Chem 7: 05/06/23 11:42 05/06/23 11:42 Labs: Abnormal Lab Results - Last 24 Hours (Table) 05/06/23 05/06/23 05/06/23 Range/Units 11:22 11:42 11:42 WBC 11.4 H (3.8-10.6) k/uL RBC 3.20 L (3.80-5.40) m/uL Hgb 10.4 L (11.4-16.0) gm/dL Hct 32.3 L (34.0-46.0) % MCV 100.7 H (80.0-100.0) fL RDW 16.0 H (11.5-15.5) % Plt Count 45 L (150-450) k/uL Neutrophils # 9.3 H (1.3-7.7) k/uL Lymphocytes # 0.7 L (1.0-4.8) k/uL Sodium 131 L (137-145) mmol/L BUN 71 H (7-17) mg/dL Creatinine 3.03 H (0.52-1.04) mg/dL Glucose 125 H (74-99) mg/dL POC Glucose (mg/dL) 147 H (70-110) mg/dL Calcium 6.9 L (8.4-10.2) mg/dL Magnesium 2.7 H (1.6-2.3) mg/dL Total Bilirubin 1.6 H (0.2-1.3) mg/dL Delta Bilirubin 1.1 H (0.0-0.2) mg/dL AST 48 H (14-36) U/L Alkaline Phosphatase 288 H (38-126) U/L Total Protein 4.7 L (6.3-8.2) g/dL Albumin 2.2 L (3.5-5.0) g/dL 05/06/23 05/06/23 05/07/23 Range/Units 16:29 20:11 00:36 WBC (3.8-10.6) k/uL RBC (3.80-5.40) m/uL Hgb (11.4-16.0) gm/dL Hct (34.0-46.0) % MCV (80.0-100.0) fL RDW (11.5-15.5) % Plt Count (150-450) k/uL Neutrophils # (1.3-7.7) k/uL Lymphocytes # (1.0-4.8) k/uL Sodium (137-145) mmol/L BUN (7-17) mg/dL Creatinine (0.52-1.04) mg/dL Glucose (74-99) mg/dL POC Glucose (mg/dL) 144 H 156 H 139 H (70-110) mg/dL Calcium (8.4-10.2) mg/dL Magnesium (1.6-2.3) mg/dL Total Bilirubin (0.2-1.3) mg/dL Delta Bilirubin (0.0-0.2) mg/dL AST (14-36) U/L Alkaline Phosphatase (38-126) U/L Total Protein (6.3-8.2) g/dL Albumin (3.5-5.0) g/dL 05/07/23 05/07/23 Range/Units 04:15 08:10 WBC (3.8-10.6) k/uL RBC (3.80-5.40) m/uL Hgb (11.4-16.0) gm/dL Hct (34.0-46.0) % MCV (80.0-100.0) fL RDW (11.5-15.5) % Plt Count (150-450) k/uL Neutrophils # (1.3-7.7) k/uL Lymphocytes # (1.0-4.8) k/uL Sodium (137-145) mmol/L BUN (7-17) mg/dL Creatinine (0.52-1.04) mg/dL Glucose (74-99) mg/dL POC Glucose (mg/dL) 143 H 154 H (70-110) mg/dL Calcium (8.4-10.2) mg/dL Magnesium (1.6-2.3) mg/dL Total Bilirubin (0.2-1.3) mg/dL Delta Bilirubin (0.0-0.2) mg/dL AST (14-36) U/L Alkaline Phosphatase (38-126) U/L Total Protein (6.3-8.2) g/dL Albumin (3.5-5.0) g/dL Assessment and Plan (1) Leukocytosis Current Visit: Yes Status: Acute Code(s): D72.829 - ELEVATED WHITE BLOOD CELL COUNT, UNSPECIFIED SNOMED Code(s): 040031366 (2) Allergy to multiple antibiotics Current Visit: Yes Status: Acute Code(s): Z88.1 - ALLERGY STATUS TO OTHER ANTIBIOTIC AGENTS SNOMED Code(s): 962518477 (3) Urinary tract infection Current Visit: No Status: Acute Code(s): N39.0 - URINARY TRACT INFECTION, SITE NOT SPECIFIED SNOMED Code(s): 17238013 Plan: 1patient with a mental status change which is likely multifactorial due to an episode of vomiting and a positive UA defect, UA on admission that was negative and the patient last urine culture done on 04/26/2023 was ESBL E. coli could be the same pathogen 2-patient noticed to have significant abnormality on the CT of the neck area clinically no significant findings except bad dentition ENT has been consulted, await evaluation 3- patient white count was down to 11.2 as of yesterday CBC is pending from today we will continue patient on Invanz and monitor clinical course closely Dictation was produced using [employer] dictation software. please excuse any grammatical, word or spelling errors. Time with Patient: Less than 30
[2023-05-07 11:51] LABS: African American GFR (CKD) 17 (>60 ml/min/1.73 sqM); Anion Gap 3 mmol/L; Blood Urea Nitrogen 73 mg/dL (7-17); Calcium 6.8 mg/dL (8.4-10.2); Carbon Dioxide 28 mmol/L (22-30); Chloride 99 mmol/L (98-107); Glucose 128 mg/dL (74-99); Non-African American GFR(CKD) 14 (>60 ml/min/1.73 sqM); Potassium 4.8 mmol/L (3.5-5.1); Sodium 130 mmol/L (137-145)
[2023-05-07 11:55] LABS: Glucose,Whole Blood 134 mg/dL (70-110)
--- NOTE | 2023-05-07 15:20 | P.PN ---
Subjective Progress Note Date: 05/07/23 Hospital Course: 82-year-old female with history of liver cirrhosis, CAD status post stent, chronic systolic heart failure, hypertension, dyslipidemia, chronic pancytopenia, ITP presented with chest pain and shortness of breath. On initial presentation, patient was tachycardic, tachypneic, saturating well on room air. EKG showed sinus tachycardia with known left bundle branch block. Chest x-ray showed pulmonary vascular interstitial markings. 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 CBC showing pancytopenia with WBC count of 1.6, hemoglobin 11.3, platelet count of 41. Coagulation profile showing elevated INR of 1.3. BMP showing hyponatremia with sodium of 131, elevated BUN of 33, creatinine 1.19, GFR 43. Liver profile showing elevated total bili of 4.2, AST of 44, ALT of 20, and alkaline phosphatase of 282. Troponin 0.064 and proBNP 2360. Troponin continues to uptrend. Cardiology was consulted. No invasive procedures recommended by cardiology. Echocardiogram showed mild LV systolic function decrease, severely enlarged left atrium. Orthopedic surgery was consulted, not recommending any interventions. Patient did get slightly more encephalopathic yesterday, and had low blood sugars, previous urinalysis was positive, urine culture was positive for ESBL. Repeat urinalysis shows a dirty sample. However, ID is consulted, patient is on IV antibiotics. Patient also developing oliguric SCOOTER. Subjective: Pts confusion ahs improved. Only major complaint is foot pain b/l. She is noted to have neck mass on CT of the face - ENT consulted. Vitals Signs Reviewed. General: Nontoxic, no distress, appears at stated age Derm: Warm, dry, jaundice Head: Atraumatic, normocephalic, symmetric Eyes: EOMI, no lid lag, scleral icterus Mouth: No lip lesion, mucus membranes moist Cardiovascular: S1S2 reg, no murmur Lungs: CTA bilateral, no rhonchi, no rales, no accessory muscle use Abdominal: Soft, nontender to palpation, no guarding, no appreciable organomegaly Ext: No gross muscle atrophy, no edema, no contractures Neuro: CN II-XI grossly intact, no focal neuro deficits Psych: Alert, oriented x 1, appropriate affect Data Reviewed Today: Pertinent Labs: CBC and CMP pending, will be reviewed when available, repeat ur inalysis pending. Urine cultures showed normal genital lukas. Blood sugars range between 80-1 66 Imaging: Abdominal ultrasound showed no evidence of ascites. Assessment and Plan: Patient is severely ill, prognosis guarded Active: Acute metabolic encephalopathy Severe sepsis, unclear source Questionable urinary tract infection, prior cultures growing ESBL Oliguric acute kidney injury Hyponatremia Isolated hypoglycemia Liver cirrhosis Pancytopenia Hyperbilirubinemia -Urine culture showed normal genital lukas, repeat UA still pending Patient did have bandemia on initial presentation, and now has leukocytosis Per daughter, patient had a recent dental abscess, went untreated. - CT face showed neck mass of 3 x 4 cm with inflammatory changes - possible abscess ID is following, patient currently on ertapenem 0.5 g IV daily Patient is fluid responsive, in light of minimal urine output, patient started on lactated Ringer's at 100 cc an hour Also continue midodrine 5 AC 3 times daily, may need to increase to 10 Nephrology also consulted, pending recommendations Repeat CBC and CMP pending, will be reviewed when available - Unclear why patient is on primidone, however due to encephalopathy, decrease dose to 25 daily - Lactulose 30 g 3 times daily, titrate to 2-3 bowel movements per day NSTEMI, likely type II New onset Afib with controlled ventricular rate History of CAD status post stent -Cardiology recommending medical management for NSTEMI -Continue aspirin 81 mg, on pravastatin 80 mg -On amiodarone 200 twice daily for rate control, no anticoagulation due to th rombocytopenia -Continue home metoprolol 12.5 daily Compression fracture of T7 and T8 Acute left posterior eighth rib fracture Fracture of the coronoid process of the left scapula -Orthopedic surgery signed off, patient not a surgical candidate Thyroid mass -Outpatient follow-up DVT ppx: Patient is thrombocytopenic Code status: Full code Anticipated discharge place: Pending clinical course Anticipated discharge time: Pending clinical course Objective - Vital Signs Vital signs: Vital Signs Temp 98.1 F 05/07/23 12:00 Pulse 62 05/07/23 12:00 Resp 18 05/07/23 12:00 BP 97/54 05/07/23 12:00 Pulse Ox 99 05/07/23 12:00 FiO2 Intake & Output 05/06/23 05/07/23 05/07/23 18:59 06:59 18:59 Intake Total 458 300 Output Total 225 150 Balance 233 150 Weight 58.967 kg Intake: Oral 458 300 Output: Urine 225 150 Other: Voiding Method Indwelling Catheter Indwelling Catheter Indwelling Catheter # Bowel Movements 2 - Labs CBC & Chem 7: 05/06/23 11:42 05/07/23 09:49 Labs: Abnormal Lab Results - Last 24 Hours (Table) 05/06/23 05/06/23 05/07/23 Range/Units 16:29 20:11 00:36 Sodium (137-145) mmol/L BUN (7-17) mg/dL Creatinine (0.52-1.04) mg/dL Glucose (74-99) mg/dL POC Glucose (mg/dL) 144 H 156 H 139 H (70-110) mg/dL Calcium (8.4-10.2) mg/dL 05/07/23 05/07/23 05/07/23 Range/Units 04:15 08:10 09:49 Sodium 130 L (137-145) mmol/L BUN 73 H (7-17) mg/dL Creatinine 2.93 H (0.52-1.04) mg/dL Glucose 128 H (74-99) mg/dL POC Glucose (mg/dL) 143 H 154 H (70-110) mg/dL Calcium 6.8 L (8.4-10.2) mg/dL 05/07/23 Range/Units 11:54 Sodium (137-145) mmol/L BUN (7-17) mg/dL Creatinine (0.52-1.04) mg/dL Glucose (74-99) mg/dL POC Glucose (mg/dL) 134 H (70-110) mg/dL Calcium (8.4-10.2) mg/dL
[2023-05-07 16:03] LABS: Glucose,Whole Blood 159 mg/dL (70-110)
[2023-05-07 20:04] LABS: Glucose,Whole Blood 166 mg/dL (70-110)
[2023-05-07] MEDS: ZINC OXIDE PASTE (Z-GUARD) 1 APPLIC TOPICAL PRN (21:55)
[2023-05-07 23:48] LABS: Glucose,Whole Blood 191 mg/dL (70-110)
[2023-05-07] MEDS: SODIUM CHLORIDE 0.9% 500 ML 500 ML IV ONE (23:54)
[2023-05-08 00:08] LABS: Glucose,Whole Blood 183 mg/dL (70-110)
[2023-05-08] MEDS: NOREPINEPHRINE 4 MG in SODIUM CHLORIDE 0.9% 250 ML IV SCH (00:33)
[2023-05-08 00:34] LABS: Anisocytosis Slight; Basophils % (A) 0 %; Eosinophils # (A) 0.2 k/uL (0-0.7); Eosinophils % (A) 2 %; HCT 31.6 % (34.0-46.0); HGB 10.1 gm/dL (11.4-16.0); Hypochromasia Marked; Lymphocytes # (A) 0.6 k/uL (1.0-4.8); Lymphocytes % (A) 6 %; MCH 32.4 pg (25.0-35.0); MCHC 32.1 g/dL (31.0-37.0); MCV 100.9 fL (80.0-100.0); Macrocytosis Slight; Mean Platelet Volume 10.8; Monocytes # (A) 0.9 k/uL (0-1.0); Monocytes % (A) 9 %; Neutrophils % (A) 80 %; Poikilocytosis Slight; RBC 3.13 m/uL (3.80-5.40); RDW 16.2 % (11.5-15.5)
[2023-05-08 00:51] LABS: ALT 20 U/L (4-34); AST 47 U/L (14-36); African American GFR (CKD) 18 (>60 ml/min/1.73 sqM); Alkaline Phosphatase 284 U/L (38-126); Anion Gap 5 mmol/L; Blood Urea Nitrogen 74 mg/dL (7-17); Calcium 6.6 mg/dL (8.4-10.2); Carbon Dioxide 28 mmol/L (22-30); Chloride 98 mmol/L (98-107); Glucose 147 mg/dL (74-99); Magnesium 2.7 mg/dL (1.6-2.3); Non-African American GFR(CKD) 16 (>60 ml/min/1.73 sqM); Potassium 4.9 mmol/L (3.5-5.1); Sodium 131 mmol/L (137-145); Total Bilirubin 1.6 mg/dL (0.2-1.3); Total Protein 4.5 g/dL (6.3-8.2)
[2023-05-08 01:19] LABS: Platelet Count 41 k/uL (150-450)
[2023-05-08 04:30] LABS: Glucose,Whole Blood 173 mg/dL (70-110)
[2023-05-08 04:52] LABS: ALT 21 U/L (4-34); AST 51 U/L (14-36); African American GFR (CKD) 18 (>60 ml/min/1.73 sqM); Albumin 2.2 g/dL (3.5-5.0); Alkaline Phosphatase 314 U/L (38-126); Anion Gap 1 mmol/L; Bilirubin,Unconjugated 0.9 mg/dL (0.0-1.1); Blood Urea Nitrogen 74 mg/dL (7-17); Calcium 6.7 mg/dL (8.4-10.2); Carbon Dioxide 33 mmol/L (22-30); Chloride 96 mmol/L (98-107); Glucose 137 mg/dL (74-99); Magnesium 2.7 mg/dL (1.6-2.3); Non-African American GFR(CKD) 15 (>60 ml/min/1.73 sqM); Potassium 4.9 mmol/L (3.5-5.1); Sodium 130 mmol/L (137-145); Total Bilirubin 1.9 mg/dL (0.2-1.3); Total Protein 4.8 g/dL (6.3-8.2)
[2023-05-08 05:07] LABS: Anisocytosis Slight; Basophils % (A) 0 %; Eosinophils # (A) 0.2 k/uL (0-0.7); Eosinophils % (A) 2 %; HCT 33.7 % (34.0-46.0); HGB 10.9 gm/dL (11.4-16.0); Hypochromasia Moderate; Lymphocytes # (A) 0.8 k/uL (1.0-4.8); Lymphocytes % (A) 7 %; MCH 32.2 pg (25.0-35.0); MCHC 32.3 g/dL (31.0-37.0); MCV 99.8 fL (80.0-100.0); Macrocytosis Slight; Mean Platelet Volume 11.8; Monocytes # (A) 0.6 k/uL (0-1.0); Monocytes % (A) 5 %; Neutrophils # (A) 9.6 k/uL (1.3-7.7); Neutrophils % (A) 82 %; Poikilocytosis Moderate; RBC 3.38 m/uL (3.80-5.40); RDW 16.4 % (11.5-15.5); WBC 11.6 k/uL (3.8-10.6)
[2023-05-08 05:22] LABS: Platelet Count 55 k/uL (150-450)
[2023-05-08] MEDS: ACETAMINOPHEN IV (For NPO) 1,000 MG in EMPTY BAG 1 BAG IVPB STA (06:35)
--- NOTE | 2023-05-08 07:12 | XR ---
EXAM: XR chest 1V portable CLINICAL INDICATION:Female, 82 years old with history of aspiration; [facility] COMPARISON: None. TECHNIQUE: Chest single view. FINDINGS: Lines/tubes/devices: EKG leads and other extrinsic structures overlie the chest. No indwelling lines are seen. Cardiomediastinum: Cardiac silhouette appears mildly to moderately enlarged. Atherosclerotic calcifications of the aorta with mild tortuosity. Mediastinal silhouette otherwise un remarkable. Vasculature: Mild central congestion. Mildly increased interstitial markings can be related to conge stion or infiltrates. Lungs/pleura: Bibasilar pleural/parenchymal opacities. No visualized pneumothorax. Bones/soft tissues: Bony thorax appears grossly intact as seen. Mild degenerative change of the spine and shoulders. Shantel onal soft tissues appear unremarkable. IMPRESSION: 1. Cardiomegaly with mild central vascular congestion and interstitial opacities suggesting edema. 2. Small to moderate bibasilar pleural effusions with adjacent atelectasis and/or infiltrates, right greater than left. Correlate for CHF.
[2023-05-08 08:00] LABS: Glucose,Whole Blood 132 mg/dL (70-110)
[2023-05-08] MEDS: LACTATED RINGERS 1,000 ML IV SCH (09:16)
--- NOTE | 2023-05-08 10:47 | P.PN ---
Subjective Patient is seen for follow-up for acute kidney injury. Patient was transferred to the ICU due to hypotension and worsening mentation. Patient is maintained on IV fluids. Urine output charted at 10 to 15 cc an hour Serum creatinine staying at about 2.7 mg/dL. Objective - Vital Signs Vital signs: Vital Signs Temp 97.8 F 05/08/23 08:00 Pulse 72 05/08/23 10:15 Resp 20 05/08/23 10:15 BP 100/45 05/08/23 10:15 Pulse Ox 97 05/08/23 10:15 FiO2 Intake & Output 05/07/23 05/08/23 05/08/23 18:59 06:59 18:59 Intake Total 1041.558 365.713 Output Total 310 30 Balance 731.558 335.713 Weight 92.7 kg Intake: IV 40 .9 kvo 40 Intake, IV Titration 1041.558 325.713 Amount Dextrose 5% in Water 1, 480 160 000 ml @ 80 mls/hr IV . [id number] RONI with Sodium Bicarb (1 Meq/ml) 150 ml Rx#:[id number] Lactated Ringers 1,000 ml 100 @ 50 mls/hr IV .Q20H RONI Rx#:[id number] Norepinephrine 4 mg In 61.558 65.713 Sodium Chloride 0.9% 250 ml @ 0.03 MCG/KG/MIN 6.74 mls/hr IV .Q24H RONI Rx#: [id number] Sodium Chloride 0.9% 500 500 ml 500 ml @ 999 mls/hr IV .Q31M ONE Rx#:[id number] Output: Urine 310 30 Other: Voiding Method Indwelling Catheter Indwelling Catheter Indwelling Catheter # Bowel Movements 1 - Exam Patient is sleeping but arousable. Patient is not communicating much today. No acute distress Examination of the heart S1 and S2 Examination of the lungs shows decreased breath sounds at the bases Abdomen is soft nontender Examination of lower extremities shows no edema - Labs CBC & Chem 7: 05/08/23 04:09 05/08/23 04:09 Labs: Abnormal Lab Results - Last 24 Hours (Table) 05/07/23 05/07/23 05/07/23 Range/Units 09:49 11:54 16:02 WBC (3.8-10.6) k/uL RBC (3.80-5.40) m/uL Hgb (11.4-16.0) gm/dL Hct (34.0-46.0) % MCV (80.0-100.0) fL RDW (11.5-15.5) % Plt Count (150-450) k/uL Neutrophils # (1.3-7.7) k/uL Lymphocytes # (1.0-4.8) k/uL Sodium 130 L (137-145) mmol/L Chloride (98-107) mmol/L Carbon Dioxide (22-30) mmol/L BUN 73 H (7-17) mg/dL Creatinine 2.93 H (0.52-1.04) mg/dL Glucose 128 H (74-99) mg/dL POC Glucose (mg/dL) 134 H 159 H (70-110) mg/dL Calcium 6.8 L (8.4-10.2) mg/dL Magnesium (1.6-2.3) mg/dL Total Bilirubin (0.2-1.3) mg/dL Delta Bilirubin (0.0-0.2) mg/dL AST (14-36) U/L Alkaline Phosphatase (38-126) U/L Total Protein (6.3-8.2) g/dL Albumin (3.5-5.0) g/dL 05/07/23 05/07/23 05/08/23 Range/Units 20:02 23:46 00:07 WBC (3.8-10.6) k/uL RBC (3.80-5.40) m/uL Hgb (11.4-16.0) gm/dL Hct (34.0-46.0) % MCV (80.0-100.0) fL RDW (11.5-15.5) % Plt Count (150-450) k/uL Neutrophils # (1.3-7.7) k/uL Lymphocytes # (1.0-4.8) k/uL Sodium (137-145) mmol/L Chloride (98-107) mmol/L Carbon Dioxide (22-30) mmol/L BUN (7-17) mg/dL Creatinine (0.52-1.04) mg/dL Glucose (74-99) mg/dL POC Glucose (mg/dL) 166 H 191 H 183 H (70-110) mg/dL Calcium (8.4-10.2) mg/dL Magnesium (1.6-2.3) mg/dL Total Bilirubin (0.2-1.3) mg/dL Delta Bilirubin (0.0-0.2) mg/dL AST (14-36) U/L Alkaline Phosphatase (38-126) U/L Total Protein (6.3-8.2) g/dL Albumin (3.5-5.0) g/dL 05/08/23 05/08/23 05/08/23 Range/Units 00:20 00:20 04:09 WBC 11.6 H (3.8-10.6) k/uL RBC 3.13 L 3.38 L (3.80-5.40) m/uL Hgb 10.1 L 10.9 L (11.4-16.0) gm/dL Hct 31.6 L 33.7 L (34.0-46.0) % MCV 100.9 H (80.0-100.0) fL RDW 16.2 H 16.4 H (11.5-15.5) % Plt Count 41 L 55 L (150-450) k/uL Neutrophils # 8.0 H 9.6 H (1.3-7.7) k/uL Lymphocytes # 0.6 L 0.8 L (1.0-4.8) k/uL Sodium 131 L (137-145) mmol/L Chloride (98-107) mmol/L Carbon Dioxide (22-30) mmol/L BUN 74 H (7-17) mg/dL Creatinine 2.72 H (0.52-1.04) mg/dL Glucose 147 H (74-99) mg/dL POC Glucose (mg/dL) (70-110) mg/dL Calcium 6.6 L (8.4-10.2) mg/dL Magnesium 2.7 H (1.6-2.3) mg/dL Total Bilirubin 1.6 H (0.2-1.3) mg/dL Delta Bilirubin (0.0-0.2) mg/dL AST 47 H (14-36) U/L Alkaline Phosphatase 284 H (38-126) U/L Total Protein 4.5 L (6.3-8.2) g/dL Albumin 2.0 L (3.5-5.0) g/dL 05/08/23 05/08/23 05/08/23 Range/Units 04:09 04:28 07:58 WBC (3.8-10.6) k/uL RBC (3.80-5.40) m/uL Hgb (11.4-16.0) gm/dL Hct (34.0-46.0) % MCV (80.0-100.0) fL RDW (11.5-15.5) % Plt Count (150-450) k/uL Neutrophils # (1.3-7.7) k/uL Lymphocytes # (1.0-4.8) k/uL Sodium 130 L (137-145) mmol/L Chloride 96 L (98-107) mmol/L Carbon Dioxide 33 H (22-30) mmol/L BUN 74 H (7-17) mg/dL Creatinine 2.78 H (0.52-1.04) mg/dL Glucose 137 H (74-99) mg/dL POC Glucose (mg/dL) 173 H 132 H (70-110) mg/dL Calcium 6.7 L (8.4-10.2) mg/dL Magnesium 2.7 H (1.6-2.3) mg/dL Total Bilirubin 1.9 H (0.2-1.3) mg/dL Delta Bilirubin 1.0 H (0.0-0.2) mg/dL AST 51 H (14-36) U/L Alkaline Phosphatase 314 H (38-126) U/L Total Protein 4.8 L (6.3-8.2) g/dL Albumin 2.2 L (3.5-5.0) g/dL Assessment and Plan Assessment: 1. Acute kidney injury, oliguric ATN secondary to hypotension and NSAIDs which patient was taking at home. UA shows 1+ protein and trace blood and WBCs 16. Ultrasound of the kidneys shows right kidney 10.0 cm left kidney 8.4 cm no hydronephrosis noted. Currently maintained on IV fluids. 2. Non-gap metabolic acidosis secondary to acute kidney injury 3. Hyperkalemia associated with acute kidney injury 4. Non-ST elevation RI 5. Sepsis with source most likely related to UTI as previous urine culture on 04/26/2023 showed ESBL E. coli versus the dental abscess 6. Encephalopathy , metabolic 7. History of dental abscess and currently tenderness noted in the right mandible area. Status post CT of the face which showed soft tissue density on the left side. ENT is on consult. Plan: Continue Ringer lactate Agree with discontinuation of sodium bicarb drip Continue midodrine to 10 mg 3 times a day Continue empiric antibiotics Continue with Hinds catheter Family has decided to proceed with renal replacement therapy if renal function continues to worsen. No acute indication for hemodialysis today. We will continue to monitor on a daily basis.
--- NOTE | 2023-05-08 10:53 | P.CNPUL ---
History of Present Illness Consult date: 05/08/23 Requesting physician: Felix Henao Reason for consult: other (Critical care management) Chief complaint: Chest pain and shortness of breath History of present illness: This is an 82-year-old female patient with a history of liver cirrhosis, pancytopenia, coronary artery disease with previous stent placement, compression fracture of T7 and T8, acute left posterior eighth rib fracture, thyroid mass, new onset atrial fibrillation and non-ST segment elevation myocardial infarction. She had been admitted back on 04/29/2023 with chest pain and shortness of breath. Echocardiogram revealed impaired left ventricular systolic function with ejection fraction 45%. She was being cared for on the selective care unit. Last evening at a approximately 1145 and rapid response team was called due to hypotension with blood pressure 70 over 40s. She received 100 mL of fluid resuscitation and was transferred to the intensive care unit and initiated on norepinephrine. She is seen today in consultation. She is lethargic. Minimally responsive. She had been calling out in pain earlier. When she was repositioned she settled down. This is felt to be secondary to her compression fractures and rib fractures. He does have a stage II decubitus ulcer. She also has severe suspected neuropathy of the bilateral lower extremities. She is maintaining good O2 saturation in the mid 90s on 2 L/min per nasal cannula. 0.08 mcg/kg/min. She has normal staying at 80 MLS per hour. White count 11.9. Platelets 55,000. Sodium 130. Potassium 4.9. Bicarb 33. BUN 74. Creatinine 2.78. Glucose 137. Urine culture reveals no growth. Currently on ertapenem. X-ray reveals cardiomegaly with mild central vascular congestion and interstitial opacities suggesting edema. Small to moderate bibasilar pleural effusions with adjacent atelectasis. 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 Kan). 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 Freq. platelet transfusion with most procedures. Date of Last Stent Placement:: 1998 Past Psychological History: No Psychological Hx Reported Smoking Status: Former smoker Past Alcohol Use History: None Reported Additional Past Alcohol Use History / Comment(s): smokes maybe weekly- 1-2 cigarettes- had smoked and quit for 12 yrs and started up about 5 yrs ago again Past Drug Use History: None Reported - Past Family History Mother Family Medical History: Cancer Additional Family Medical History / Comment(s): Breast Ca Father Family Medical History: Myocardial Infarction (OR) Additional Family Medical History / Comment(s): @ age 86 from [place] Medications and Allergies Home Medications Medication Instructions Recorded Confirmed Type Pravastatin Sodium 80 mg PO DAILY 07/30/20 04/30/23 History Primidone [Mysoline] 50 mg PO BID 07/30/20 04/30/23 History Triamcinolone 0.1% Ointment 1 applic TOPICAL DAILY PRN 12/03/22 04/30/23 History [Kenalog 0.1% Ointment] Metoprolol Succinate (ER) [Toprol 12.5 mg PO DAILY #30 tab 12/10/22 04/30/23 Rx XL] Midodrine [ProAmatine] 5 mg PO AC-TID #90 tab 12/10/22 04/30/23 Rx Furosemide [Lasix] 40 mg PO BID #0 12/16/22 04/30/23 Rx Ketorolac [Toradol] 10 mg PO Q8HR #15 tab 04/26/23 04/30/23 Rx Lidocaine 5% Patch [Lidoderm 5% 1 patch TOPICAL DAILY #5 patch 04/26/23 04/30/23 Rx Patch] Ampicillin 500mg Capsule 500 mg PO DAILY 04/30/23 04/30/23 History Clotrimazole/Betameth Cream 1 applic TOPICAL BID 04/30/23 04/30/23 History [Lotrisone] Cyclobenzaprine [Flexeril] 10 mg PO TID PRN 04/30/23 04/30/23 History Lactulose [Constulose] 30 gm PO TID 04/30/23 04/30/23 History Allergies Allergy/AdvReac Type Severity Reaction Status Date / Time cephalexin monohydrate Allergy Rash/Hives/ Verified 04/30/23 12:21 [From Keflex] Swelling codeine Allergy Rash/Hives Verified 04/30/23 12:21 doxepin Allergy Rash/Hives Verified 04/30/23 12:21 meperidine HCl [From Demerol] Allergy Rash/Hives Verified 04/30/23 12:21 methylprednisolone Allergy Rash/Hives Verified 04/30/23 12:21 [From Medrol] Opioids - Morphine Analogues Allergy Rash/Hives Verified 04/30/23 12:21 Penicillins Allergy Swelling Verified 04/30/23 12:21 over entire body pentazocine lactate Allergy Rash/Hives-Stomach Verified 04/30/23 12:21 [From Felipewin] Upset propoxyphene napsylate Allergy Rash/Hives- Verified 04/30/23 12:21 [From Darvocet-N] Itch tramadol Allergy Rash/Hives Verified 04/30/23 12:21 ketorolac [From Toradol] AdvReac Hallucinati Verified 04/30/23 12:27 ons Physical Exam Vitals: Vital Signs Temp Pulse Pulse Pulse Resp BP BP 05/08/23 10:15 72 20 100/45 05/08/23 10:00 70 22 87/33 05/08/23 09:45 66 24 100/32 05/08/23 09:30 67 24 99/34 05/08/23 09:15 70 24 105/40 05/08/23 09:00 70 21 102/47 05/08/23 08:45 70 24 78/35 05/08/23 08:30 68 20 97/38 05/08/23 08:15 69 24 95/31 05/08/23 08:02 05/08/23 08:00 97.8 F 68 24 91/38 05/08/23 07:45 66 20 103/31 05/08/23 07:30 71 28 H 107/48 05/08/23 07:15 67 28 H 102/62 05/08/23 07:00 71 23 104/37 05/08/23 06:40 70 27 H 103/48 05/08/23 06:20 69 26 H 101/36 05/08/23 06:10 71 31 H 104/38 05/08/23 06:00 68 23 101/43 05/08/23 05:50 67 26 H 101/43 05/08/23 05:40 70 20 114/51 05/08/23 05:30 69 23 100/60 05/08/23 05:20 74 20 107/51 05/08/23 05:10 96 19 107/65 05/08/23 05:00 94 23 105/52 05/08/23 04:50 94 22 98/43 05/08/23 04:40 91 17 98/46 05/08/23 04:30 93 25 H 97/40 05/08/23 04:20 92 23 102/47 05/08/23 04:10 92 26 H 99/46 05/08/23 04:00 92 15 101/49 05/08/23 03:50 92 28 H 104/48 05/08/23 03:40 92 28 H 101/50 05/08/23 03:30 90 25 H 117/46 05/08/23 03:20 91 21 101/47 05/08/23 03:10 89 25 H 115/41 05/08/23 03:00 96.1 F L 88 23 108/45 05/08/23 02:10 86 23 101/43 05/08/23 02:00 86 20 103/44 05/08/23 01:50 85 20 108/42 05/08/23 01:40 85 23 108/44 05/08/23 01:30 85 21 108/45 05/08/23 01:20 85 21 109/44 05/08/23 01:10 85 15 109/42 05/08/23 01:00 70 18 108/47 05/08/23 00:50 62 21 90/42 05/08/23 00:40 64 21 96/36 05/08/23 00:20 93.2 F L 66 19 99/71 05/07/23 23:50 93.4 F L 05/07/23 23:46 60/33 05/07/23 23:45 95.6 F L 59 L 22 78/33 02/24/24 22:00 76 05/07/23 20:04 97.7 F 62 18 95/60 05/07/23 16:27 98.3 F 56 L 18 94/55 05/07/23 12:00 98.1 F 62 18 97/54 Pulse Ox 05/08/23 10:15 97 05/08/23 10:00 97 05/08/23 09:45 96 05/08/23 09:30 97 05/08/23 09:15 97 05/08/23 09:00 97 05/08/23 08:45 98 05/08/23 08:30 98 05/08/23 08:15 95 05/08/23 08:02 95 05/08/23 08:00 95 05/08/23 07:45 94 L 05/08/23 07:30 94 L 05/08/23 07:15 95 05/08/23 07:00 96 05/08/23 06:40 97 05/08/23 06:20 95 05/08/23 06:10 96 05/08/23 06:00 96 05/08/23 05:50 95 05/08/23 05:40 97 05/08/23 05:30 97 05/08/23 05:20 96 05/08/23 05:10 95 05/08/23 05:00 96 05/08/23 04:50 96 05/08/23 04:40 96 05/08/23 04:30 94 L 05/08/23 04:20 95 05/08/23 04:10 94 L 05/08/23 04:00 95 05/08/23 03:50 95 05/08/23 03:40 96 05/08/23 03:30 97 05/08/23 03:20 97 05/08/23 03:10 97 05/08/23 03:00 97 05/08/23 02:10 98 05/08/23 02:00 98 05/08/23 01:50 98 05/08/23 01:40 97 05/08/23 01:30 98 05/08/23 01:20 98 05/08/23 01:10 98 05/08/23 01:00 98 05/08/23 00:50 98 05/08/23 00:40 97 05/08/23 00:20 98 0224/24 23:50 05/07/23 23:46 05/07/23 23:45 99 05/07/23 22:00 05/07/23 20:04 98 05/07/23 16:27 100 05/07/23 12:00 99 Intake and Output 05/07/23 05/08/23 05/08/23 22:59 06:59 14:59 Intake Total 1041.558 365.713 Output Total 310 30 Balance 731.558 335.713 Intake: IV 40 .9 kvo 40 Intake, IV Titration 1041.558 325.713 Amount Dextrose 5% in Water 1, 480 160 000 ml @ 80 mls/hr IV . [id number] RONI with Sodium Bicarb (1 Meq/ml) 150 ml Rx#:[id number] Lactated Ringers 1,000 ml 100 @ 50 mls/hr IV .Q20H RONI Rx#:[id number] Norepinephrine 4 mg In 61.558 65.713 Sodium Chloride 0.9% 250 ml @ 0.03 MCG/KG/MIN 6.74 mls/hr IV .Q24H RONI Rx#: [id number] Sodium Chloride 0.9% 500 500 ml 500 ml @ 999 mls/hr IV .Q31M ONE Rx#:[id number] Output: Urine 310 30 Other: Voiding Method Indwelling Catheter Indwelling Catheter Indwelling Catheter # Bowel Movements 1 Weight 92.7 kg GENERAL EXAM: Arousable, cries out in pain, then drifts off easily 82-year-old female, on 2 L nasal cannula, currently in no apparent distress. HEAD: Normocephalic. EYES: Normal reaction of pupils, equal size. NOSE: Clear with pink turbinates. THROAT: No erythema or exudates. NECK: No masses, no JVD. CHEST: No chest wall deformity. LUNGS: Equal air entry with bibasilar crackles. CVS: S1 and S2 normal with no audible murmur, regular rhythm. ABDOMEN: No hepatosplenomegaly, normal bowel sounds, no guarding or rigidity. SPINE: No scoliosis or deformity SKIN: Stage II coccyx ulcer CENTRAL NERVOUS SYSTEM: Brief but nonfocal, tone is normal in all 4 extremities. EXTREMITIES: There is 2+ peripheral edema. No clubbing, no cyanosis. Peripheral pulses are intact. Results - Laboratory Findings CBC and BMP: 05/08/23 04:09 05/08/23 04:09 PT/INR, D-dimer PT 12.2 sec (10.0-12.5) 05/06/23 11:42 INR 1.1 (<1.2) 05/06/23 11:42 Abnormal lab findings: Abnormal Labs 04/29/23 04/29/23 04/29/23 22:54 22:54 22:54 WBC 1.6 L RBC 3.37 L Hgb 11.3 L Hct 32.8 L MCV RDW 16.1 H Plt Count 41 L Neutrophils # Lymphocytes # Lymphocytes # (Manual) 0.05 L PT 13.3 H INR 1.3 H Sodium 131 L Potassium Chloride Carbon Dioxide BUN 33 H Creatinine 1.19 H Glucose POC Glucose (mg/dL) Calcium 8.0 L Magnesium Total Bilirubin 4.2 H Delta Bilirubin AST 44 H Alkaline Phosphatase 282 H Troponin I Total Protein 5.3 L Albumin 2.6 L Urine Appearance Ur Specific Meta Urine Protein Urine Blood Urine Bilirubin Ur Leukocyte Esterase Urine RBC Urine WBC Urine WBC Clumps Ur Squamous Epith Cells Amorphous Sediment Urine Bacteria Hyaline Casts Urine Mucus Urine Yeast (Budding) 04/29/23 04/30/23 04/30/23 22:54 01:45 03:55 WBC RBC Hgb Hct MCV RDW Plt Count Neutrophils # Lymphocytes # Lymphocytes # (Manual) PT INR Sodium Potassium Chloride Carbon Dioxide BUN Creatinine Glucose POC Glucose (mg/dL) Calcium Magnesium Total Bilirubin Delta Bilirubin AST Alkaline Phosphatase Troponin I 0.064 H* 0.297 H* Total Protein Albumin Urine Appearance Ur Specific Meta 1.037 H Urine Protein Trace H Urine Blood Urine Bilirubin Ur Leukocyte Esterase Urine RBC Urine WBC Urine WBC Clumps Ur Squamous Epith Cells Amorphous Sediment Urine Bacteria Hyaline Casts Urine Mucus Urine Yeast (Budding) 04/30/23 04/30/23 05/01/23 07:38 10:06 07:24 WBC 13.6 H RBC 3.14 L Hgb 10.1 L Hct 31.2 L MCV RDW 15.9 H Plt Count 45 L Neutrophils # 11.4 H Lymphocytes # 0.6 L Lymphocytes # (Manual) PT INR Sodium Potassium Chloride Carbon Dioxide BUN Creatinine Glucose POC Glucose (mg/dL) Calcium Magnesium Total Bilirubin Delta Bilirubin AST Alkaline Phosphatase Troponin I 1.370 H* 1.640 H* Total Protein Albumin Urine Appearance Ur Specific Meta Urine Protein Urine Blood Urine Bilirubin Ur Leukocyte Esterase Urine RBC Urine WBC Urine WBC Clumps Ur Squamous Epith Cells Amorphous Sediment Urine Bacteria Hyaline Casts Urine Mucus Urine Yeast (Budding) 05/01/23 05/02/23 05/02/23 07:24 07:39 07:39 WBC RBC 3.12 L Hgb 10.3 L Hct 31.1 L MCV RDW 16.0 H Plt Count 40 L Neutrophils # Lymphocytes # Lymphocytes # (Manual) PT INR Sodium 131 L 129 L Potassium Chloride Carbon Dioxide 20 L BUN 43 H 48 H Creatinine 1.66 H 1.83 H Glucose 55 L POC Glucose (mg/dL) Calcium 7.9 L 7.9 L Magnesium Total Bilirubin 4.7 H Delta Bilirubin AST Alkaline Phosphatase 262 H Troponin I Total Protein 4.7 L Albumin 2.1 L Urine Appearance Ur Specific Meta Urine Protein Urine Blood Urine Bilirubin Ur Leukocyte Esterase Urine RBC Urine WBC Urine WBC Clumps Ur Squamous Epith Cells Amorphous Sediment Urine Bacteria Hyaline Casts Urine Mucus Urine Yeast (Budding) 05/02/23 05/02/23 05/02/23 16:32 20:18 21:04 WBC RBC Hgb Hct MCV RDW Plt Count Neutrophils # Lymphocytes # Lymphocytes # (Manual) PT INR Sodium Potassium Chloride Carbon Dioxide BUN Creatinine Glucose POC Glucose (mg/dL) 138 H 153 H Calcium Magnesium Total Bilirubin Delta Bilirubin AST Alkaline Phosphatase Troponin I Total Protein Albumin Urine Appearance Cloudy H Ur Specific Meta Urine Protein 1+ H Urine Blood Trace H Urine Bilirubin 2+ H Ur Leukocyte Esterase Moderate H Urine RBC 7 H Urine WBC 16 H Urine WBC Clumps Occasional H Ur Squamous Epith Cells 83 H Amorphous Sediment Rare H Urine Bacteria Moderate H Hyaline Casts 48 H Urine Mucus Rare H Urine Yeast (Budding) 05/03/23 05/03/23 05/03/23 00:06 10:59 10:59 WBC 25.2 H RBC 3.34 L Hgb 10.8 L Hct MCV 102.4 H RDW 16.3 H Plt Count 49 L Neutrophils # Lymphocytes # Lymphocytes # (Manual) PT INR Sodium 131 L Potassium 5.7 H Chloride Carbon Dioxide 19 L BUN 57 H Creatinine 2.22 H Glucose POC Glucose (mg/dL) 134 H Calcium 7.9 L Magnesium 2.5 H Total Bilirubin 5.0 H Delta Bilirubin AST Alkaline Phosphatase 297 H Troponin I Total Protein 4.9 L Albumin 2.2 L Urine Appearance Ur Specific Meta Urine Protein Urine Blood Urine Bilirubin Ur Leukocyte Esterase Urine RBC Urine WBC Urine WBC Clumps Ur Squamous Epith Cells Amorphous Sediment Urine Bacteria Hyaline Casts Urine Mucus Urine Yeast (Budding) 05/04/23 05/04/23 05/04/23 04:52 07:48 09:38 WBC 16.8 H RBC 3.19 L Hgb 10.4 L Hct 32.6 L MCV 102.4 H RDW 16.3 H Plt Count 35 L Neutrophils # Lymphocytes # Lymphocytes # (Manual) PT INR Sodium Potassium Chloride Carbon Dioxide BUN Creatinine Glucose POC Glucose (mg/dL) 166 H Calcium Magnesium Total Bilirubin Delta Bilirubin AST Alkaline Phosphatase Troponin I Total Protein Albumin Urine Appearance Turbid H Ur Specific Meta Urine Protein 2+ H Urine Blood Moderate H Urine Bilirubin 2+ H Ur Leukocyte Esterase Urine RBC 60 H Urine WBC 13 H Urine WBC Clumps Moderate H Ur Squamous Epith Cells 7 H Amorphous Sediment Urine Bacteria Rare H Hyaline Casts 29 H Urine Mucus Occasional H Urine Yeast (Budding) Few H 05/04/23 05/04/23 05/05/23 09:38 20:12 09:09 WBC 12.7 H RBC 2.96 L Hgb 9.8 L Hct 29.9 L MCV 100.8 H RDW 16.4 H Plt Count 35 L Neutrophils # 10.6 H Lymphocytes # 0.6 L Lymphocytes # (Manual) PT INR Sodium 131 L Potassium 5.4 H Chloride Carbon Dioxide 17 L BUN 61 H Creatinine 2.83 H Glucose 59 L POC Glucose (mg/dL) 125 H Calcium 7.6 L Magnesium Total Bilirubin 3.0 H Delta Bilirubin AST Alkaline Phosphatase 278 H Troponin I Total Protein 4.6 L Albumin 2.0 L Urine Appearance Ur Specific Meta Urine Protein Urine Blood Urine Bilirubin Ur Leukocyte Esterase Urine RBC Urine WBC Urine WBC Clumps Ur Squamous Epith Cells Amorphous Sediment Urine Bacteria Hyaline Casts Urine Mucus Urine Yeast (Budding) 05/05/23 05/05/23 05/05/23 09:09 16:19 20:20 WBC RBC Hgb Hct MCV RDW Plt Count Neutrophils # Lymphocytes # Lymphocytes # (Manual) PT INR Sodium 132 L Potassium 5.3 H Chloride Carbon Dioxide 19 L BUN 65 H Creatinine 3.07 H Glucose POC Glucose (mg/dL) 155 H 172 H Calcium 7.4 L Magnesium 2.8 H Total Bilirubin 1.9 H Delta Bilirubin AST 37 H Alkaline Phosphatase 282 H Troponin I Total Protein 4.7 L Albumin 2.2 L Urine Appearance Ur Specific Meta Urine Protein Urine Blood Urine Bilirubin Ur Leukocyte Esterase Urine RBC Urine WBC Urine WBC Clumps Ur Squamous Epith Cells Amorphous Sediment Urine Bacteria Hyaline Casts Urine Mucus Urine Yeast (Budding) 05/06/23 05/06/23 05/06/23 06:00 11:22 11:42 WBC RBC Hgb Hct MCV RDW Plt Count Neutrophils # Lymphocytes # Lymphocytes # (Manual) PT INR Sodium 131 L Potassium Chloride Carbon Dioxide BUN 71 H Creatinine 3.03 H Glucose 125 H POC Glucose (mg/dL) 133 H 147 H Calcium 6.9 L Magnesium 2.7 H Total Bilirubin 1.6 H Delta Bilirubin 1.1 H AST 48 H Alkaline Phosphatase 288 H Troponin I Total Protein 4.7 L Albumin 2.2 L Urine Appearance Ur Specific Meta Urine Protein Urine Blood Urine Bilirubin Ur Leukocyte Esterase Urine RBC Urine WBC Urine WBC Clumps Ur Squamous Epith Cells Amorphous Sediment Urine Bacteria Hyaline Casts Urine Mucus Urine Yeast (Budding) 05/06/23 05/06/23 05/06/23 11:42 16:29 20:11 WBC 11.4 H RBC 3.20 L Hgb 10.4 L Hct 32.3 L MCV 100.7 H RDW 16.0 H Plt Count 45 L Neutrophils # 9.3 H Lymphocytes # 0.7 L Lymphocytes # (Manual) PT INR Sodium Potassium Chloride Carbon Dioxide BUN Creatinine Glucose POC Glucose (mg/dL) 144 H 156 H Calcium Magnesium Total Bilirubin Delta Bilirubin AST Alkaline Phosphatase Troponin I Total Protein Albumin Urine Appearance Ur Specific Meta Urine Protein Urine Blood Urine Bilirubin Ur Leukocyte Esterase Urine RBC Urine WBC Urine WBC Clumps Ur Squamous Epith Cells Amorphous Sediment Urine Bacteria Hyaline Casts Urine Mucus Urine Yeast (Budding) 05/07/23 05/07/23 05/07/23 00:36 04:15 08:10 WBC RBC Hgb Hct MCV RDW Plt Count Neutrophils # Lymphocytes # Lymphocytes # (Manual) PT INR Sodium Potassium Chloride Carbon Dioxide BUN Creatinine Glucose POC Glucose (mg/dL) 139 H 143 H 154 H Calcium Magnesium Total Bilirubin Delta Bilirubin AST Alkaline Phosphatase Troponin I Total Protein Albumin Urine Appearance Ur Specific Meta Urine Protein Urine Blood Urine Bilirubin Ur Leukocyte Esterase Urine RBC Urine WBC Urine WBC Clumps Ur Squamous Epith Cells Amorphous Sediment Urine Bacteria Hyaline Casts Urine Mucus Urine Yeast (Budding) 05/07/23 05/07/23 05/07/23 09:49 11:54 16:02 WBC RBC Hgb Hct MCV RDW Plt Count Neutrophils # Lymphocytes # Lymphocytes # (Manual) PT INR Sodium 130 L Potassium Chloride Carbon Dioxide BUN 73 H Creatinine 2.93 H Glucose 128 H POC Glucose (mg/dL) 134 H 159 H Calcium 6.8 L Magnesium Total Bilirubin Delta Bilirubin AST Alkaline Phosphatase Troponin I Total Protein Albumin Urine Appearance Ur Specific Meta Urine Protein Urine Blood Urine Bilirubin Ur Leukocyte Esterase Urine RBC Urine WBC Urine WBC Clumps Ur Squamous Epith Cells Amorphous Sediment Urine Bacteria Hyaline Casts Urine Mucus Urine Yeast (Budding) 05/07/23 05/07/23 05/08/23 20:02 23:46 00:07 WBC RBC Hgb Hct MCV RDW Plt Count Neutrophils # Lymphocytes # Lymphocytes # (Manual) PT INR Sodium Potassium Chloride Carbon Dioxide BUN Creatinine Glucose POC Glucose (mg/dL) 166 H 191 H 183 H Calcium Magnesium Total Bilirubin Delta Bilirubin AST Alkaline Phosphatase Troponin I Total Protein Albumin Urine Appearance Ur Specific Meta Urine Protein Urine Blood Urine Bilirubin Ur Leukocyte Esterase Urine RBC Urine WBC Urine WBC Clumps Ur Squamous Epith Cells Amorphous Sediment Urine Bacteria Hyaline Casts Urine Mucus Urine Yeast (Budding) 05/08/23 05/08/23 05/08/23 00:20 00:20 04:09 WBC 11.6 H RBC 3.13 L 3.38 L Hgb 10.1 L 10.9 L Hct 31.6 L 33.7 L MCV 100.9 H RDW 16.2 H 16.4 H Plt Count 41 L 55 L Neutrophils # 8.0 H 9.6 H Lymphocytes # 0.6 L 0.8 L Lymphocytes # (Manual) PT INR Sodium 131 L Potassium Chloride Carbon Dioxide BUN 74 H Creatinine 2.72 H Glucose 147 H POC Glucose (mg/dL) Calcium 6.6 L Magnesium 2.7 H Total Bilirubin 1.6 H Delta Bilirubin AST 47 H Alkaline Phosphatase 284 H Troponin I Total Protein 4.5 L Albumin 2.0 L Urine Appearance Ur Specific Meta Urine Protein Urine Blood Urine Bilirubin Ur Leukocyte Esterase Urine RBC Urine WBC Urine WBC Clumps Ur Squamous Epith Cells Amorphous Sediment Urine Bacteria Hyaline Casts Urine Mucus Urine Yeast (Budding) 05/08/23 05/08/23 05/08/23 04:09 04:28 07:58 WBC RBC Hgb Hct MCV RDW Plt Count Neutrophils # Lymphocytes # Lymphocytes # (Manual) PT INR Sodium 130 L Potassium Chloride 96 L Carbon Dioxide 33 H BUN 74 H Creatinine 2.78 H Glucose 137 H POC Glucose (mg/dL) 173 H 132 H Calcium 6.7 L Magnesium 2.7 H Total Bilirubin 1.9 H Delta Bilirubin 1.0 H AST 51 H Alkaline Phosphatase 314 H Troponin I Total Protein 4.8 L Albumin 2.2 L Urine Appearance Ur Specific Meta Urine Protein Urine Blood Urine Bilirubin Ur Leukocyte Esterase Urine RBC Urine WBC Urine WBC Clumps Ur Squamous Epith Cells Amorphous Sediment Urine Bacteria Hyaline Casts Urine Mucus Urine Yeast (Budding) - Diagnostic Findings Chest x-ray: image reviewed Assessment and Plan Assessment: Hypotension requiring pressor support secondary to sepsis of unclear etiology, possible dental abscess, questionable urinary tract infection with previous cultures of ESBL Altered mental status secondary to above Acute kidney injury secondary to above Acute pain secondary to compression fractures of T7 and T8 and acute left posterior eighth rib fracture Neuropathy Stage II decubitus ulcer History of liver cirrhosis Pancytopenia Non-ST segment elevation myocardial infarction New onset atrial fibrillation with controlled ventricular response History of coronary disease with previous stent placement Ischemic cardiomyopathy with an ejection fraction 45% Thyroid mass Possible dental abscess Plan: The patient was seen and evaluated Chest x-ray, labs and medications reviewed Microbiology reviewed Remains on ertapenem Discontinue the bicarb drip Add lactated Ringer's at 50 MLS per hour Titrate the norepinephrine as tolerated ENT/dental consult pending We will continue to follow and make further recommendations based on her clinical status I have personally seen and examined the patient, performed the documentation and the assessment and plan as written. Number of minutes spent on the visit: 20.
--- NOTE | 2023-05-08 11:00 | P.PN ---
Subjective Progress Note Date: 05/08/23 Hospital Course: 82-year-old female with history of liver cirrhosis, CAD status post stent, chronic systolic heart failure, hypertension, dyslipidemia, chronic pancytopenia, ITP presented with chest pain and shortness of breath. On initial presentation, patient was tachycardic, tachypneic, saturating well on room air. EKG showed sinus tachycardia with known left bundle branch block. Chest x-ray showed pulmonary vascular interstitial markings. 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 CBC showing pancytopenia with WBC count of 1.6, hemoglobin 11.3, platelet count of 41. Coagulation profile showing elevated INR of 1.3. BMP showing hyponatremia with sodium of 131, elevated BUN of 33, creatinine 1.19, GFR 43. Liver profile showing elevated total bili of 4.2, AST of 44, ALT of 20, and alkaline phosphatase of 282. Troponin 0.064 and proBNP 2360. Troponin continues to uptrend. Cardiology was consulted. No invasive procedures recommended by cardiology. Echocardiogram showed mild LV systolic function decrease, severely enlarged left atrium. Orthopedic surgery was consulted, not recommending any interventions. Patient did get slightly more encephalopathic yesterday, and had low blood sugars, previous urinalysis was positive, urine culture was positive for ESBL. Repeat urinalysis shows a dirty sample. However, ID is consulted, patient is on IV antibiotics. Patient also developing oliguric SCOOTER.CT face showed neck mass of 3 x 4 cm and right maxillary inflammatory changes. Subjective: Pt became hypotensive overnight and was transferred to the ICU requiring pressors. Vitals Signs Reviewed. General: generally weak, Derm: Warm, dry, jaundice Head: Atraumatic, normocephalic, symmetric Eyes: EOMI, no lid lag, scleral icterus Mouth: No lip lesion, mucus membranes moist Cardiovascular: S1S2 reg, no murmur Lungs: no accessory muscle use Abdominal: Soft, TTP diffusely Ext: No gross muscle atrophy, bilateral edema, no contractures Neuro: CN II-XI grossly intact, no focal neuro deficits, allodynia of plantar feet b/l Psych: Alert, oriented x 1 Assessment and Plan: Patient is severely ill, prognosis guarded Acute metabolic encephalopathy - septic and hepatic Septic Shock, unclear source Questionable urinary tract infection, prior cultures growing ESBL - other sources are possible: maxillary inflammation vs left neck mass (?abscess) - continue ertapenem - ID following - pulmonology following for ICU requirement and shock status requiring pressors - continue levophed 0.08 Oliguric SCOOTER Hyponatremia -nephrology following -family is okay with NAPPER FIXER if needed -hourly strict UOP measurement -Bicarb switched to LR -Cr is 2.78 today, UOP is 0-10cc/hr continue midodrine 5 AC 3 times daily, may need to increase to 10 Liver cirrhosis Pancytopenia Hyperbilirubinemia ID is following, patient currently on ertapenem 0.5 g IV daily Nephrology also consulted, appreciate recs - Unclear why patient is on primidone, however due to encephalopathy, decrease dose to 25 daily - Lactulose 30 g 3 times daily, titrate to 2-3 bowel movements per day, may require NGT to start lactulose again while swallow study being done NSTEMI, likely type II New onset Afib with controlled ventricular rate History of CAD status post stent -Cardiology recommending medical management for NSTEMI -Continue aspirin 81 mg, on pravastatin 80 mg -On amiodarone 200 twice daily for rate control, no anticoagulation due to thrombocytopenia -Continue home metoprolol 12.5 daily -05/08: oral meds on hold while swallow study being done - consideration of adding NGT for lactulose and oral cardiac meds Compression fracture of T7 and T8 Acute left posterior eighth rib fracture Fracture of the coronoid process of the left scapula -Orthopedic surgery signed off, patient not a surgical candidate Thyroid mass -Outpatient follow-up DVT ppx: Patient is thrombocytopenic Code status: Full code Anticipated discharge place: Pending clinical course Anticipated discharge time: Pending clinical course Objective - Vital Signs Vital signs: Vital Signs Temp 97.8 F 05/08/23 08:00 Pulse 72 05/08/23 10:15 Resp 20 05/08/23 10:15 BP 100/45 05/08/23 10:15 Pulse Ox 97 05/08/23 10:15 FiO2 Intake & Output 05/07/23 05/08/23 05/08/23 18:59 06:59 18:59 Intake Total 1041.558 365.713 Output Total 310 30 Balance 731.558 335.713 Weight 92.7 kg Intake: IV 40 .9 kvo 40 Intake, IV Titration 1041.558 325.713 Amount Dextrose 5% in Water 1, 480 160 000 ml @ 80 mls/hr IV . [id number] RONI with Sodium Bicarb (1 Meq/ml) 150 ml Rx#:[id number] Lactated Ringers 1,000 ml 100 @ 50 mls/hr IV .Q20H RONI Rx#:[id number] Norepinephrine 4 mg In 61.558 65.713 Sodium Chloride 0.9% 250 ml @ 0.03 MCG/KG/MIN 6.74 mls/hr IV .Q24H RONI Rx#: [id number] Sodium Chloride 0.9% 500 500 ml 500 ml @ 999 mls/hr IV .Q31M ONE Rx#:[id number] Output: Urine 310 30 Other: Voiding Method Indwelling Catheter Indwelling Catheter Indwelling Catheter # Bowel Movements 1 - Labs CBC & Chem 7: 05/08/23 04:09 05/08/23 04:09 Labs: Abnormal Lab Results - Last 24 Hours (Table) 05/07/23 05/07/23 05/07/23 Range/Units 09:49 11:54 16:02 WBC (3.8-10.6) k/uL RBC (3.80-5.40) m/uL Hgb (11.4-16.0) gm/dL Hct (34.0-46.0) % MCV (80.0-100.0) fL RDW (11.5-15.5) % Plt Count (150-450) k/uL Neutrophils # (1.3-7.7) k/uL Lymphocytes # (1.0-4.8) k/uL Sodium 130 L (137-145) mmol/L Chloride (98-107) mmol/L Carbon Dioxide (22-30) mmol/L BUN 73 H (7-17) mg/dL Creatinine 2.93 H (0.52-1.04) mg/dL Glucose 128 H (74-99) mg/dL POC Glucose (mg/dL) 134 H 159 H (70-110) mg/dL Calcium 6.8 L (8.4-10.2) mg/dL Magnesium (1.6-2.3) mg/dL Total Bilirubin (0.2-1.3) mg/dL Delta Bilirubin (0.0-0.2) mg/dL AST (14-36) U/L Alkaline Phosphatase (38-126) U/L Total Protein (6.3-8.2) g/dL Albumin (3.5-5.0) g/dL 05/07/23 05/07/23 05/08/23 Range/Units 20:02 23:46 00:07 WBC (3.8-10.6) k/uL RBC (3.80-5.40) m/uL Hgb (11.4-16.0) gm/dL Hct (34.0-46.0) % MCV (80.0-100.0) fL RDW (11.5-15.5) % Plt Count (150-450) k/uL Neutrophils # (1.3-7.7) k/uL Lymphocytes # (1.0-4.8) k/uL Sodium (137-145) mmol/L Chloride (98-107) mmol/L Carbon Dioxide (22-30) mmol/L BUN (7-17) mg/dL Creatinine (0.52-1.04) mg/dL Glucose (74-99) mg/dL POC Glucose (mg/dL) 166 H 191 H 183 H (70-110) mg/dL Calcium (8.4-10.2) mg/dL Magnesium (1.6-2.3) mg/dL Total Bilirubin (0.2-1.3) mg/dL Delta Bilirubin (0.0-0.2) mg/dL AST (14-36) U/L Alkaline Phosphatase (38-126) U/L Total Protein (6.3-8.2) g/dL Albumin (3.5-5.0) g/dL 05/08/23 05/08/23 05/08/23 Range/Units 00:20 00:20 04:09 WBC 11.6 H (3.8-10.6) k/uL RBC 3.13 L 3.38 L (3.80-5.40) m/uL Hgb 10.1 L 10.9 L (11.4-16.0) gm/dL Hct 31.6 L 33.7 L (34.0-46.0) % MCV 100.9 H (80.0-100.0) fL RDW 16.2 H 16.4 H (11.5-15.5) % Plt Count 41 L 55 L (150-450) k/uL Neutrophils # 8.0 H 9.6 H (1.3-7.7) k/uL Lymphocytes # 0.6 L 0.8 L (1.0-4.8) k/uL Sodium 131 L (137-145) mmol/L Chloride (98-107) mmol/L Carbon Dioxide (22-30) mmol/L BUN 74 H (7-17) mg/dL Creatinine 2.72 H (0.52-1.04) mg/dL Glucose 147 H (74-99) mg/dL POC Glucose (mg/dL) (70-110) mg/dL Calcium 6.6 L (8.4-10.2) mg/dL Magnesium 2.7 H (1.6-2.3) mg/dL Total Bilirubin 1.6 H (0.2-1.3) mg/dL Delta Bilirubin (0.0-0.2) mg/dL AST 47 H (14-36) U/L Alkaline Phosphatase 284 H (38-126) U/L Total Protein 4.5 L (6.3-8.2) g/dL Albumin 2.0 L (3.5-5.0) g/dL 05/08/23 05/08/23 05/08/23 Range/Units 04:09 04:28 07:58 WBC (3.8-10.6) k/uL RBC (3.80-5.40) m/uL Hgb (11.4-16.0) gm/dL Hct (34.0-46.0) % MCV (80.0-100.0) fL RDW (11.5-15.5) % Plt Count (150-450) k/uL Neutrophils # (1.3-7.7) k/uL Lymphocytes # (1.0-4.8) k/uL Sodium 130 L (137-145) mmol/L Chloride 96 L (98-107) mmol/L Carbon Dioxide 33 H (22-30) mmol/L BUN 74 H (7-17) mg/dL Creatinine 2.78 H (0.52-1.04) mg/dL Glucose 137 H (74-99) mg/dL POC Glucose (mg/dL) 173 H 132 H (70-110) mg/dL Calcium 6.7 L (8.4-10.2) mg/dL Magnesium 2.7 H (1.6-2.3) mg/dL Total Bilirubin 1.9 H (0.2-1.3) mg/dL Delta Bilirubin 1.0 H (0.0-0.2) mg/dL AST 51 H (14-36) U/L Alkaline Phosphatase 314 H (38-126) U/L Total Protein 4.8 L (6.3-8.2) g/dL Albumin 2.2 L (3.5-5.0) g/dL
[2023-05-08 12:00] LABS: Glucose,Whole Blood 119 mg/dL (70-110)
[2023-05-08] MEDS: ACETAMINOPHEN IV (For NPO) 1,000 MG in EMPTY BAG 1 BAG IVPB PRN (12:36)
--- NOTE | 2023-05-08 12:57 | CONS ---
CONSULTATION REASON FOR CONSULTATION: Left neck mass. HISTORY: This is an 82-year-old white female who was admitted initially for cardiac evaluation, but also has had decreased mental status and hypotension with septic picture. She had CT of the face on 05/04 and I had recommended oral surgery consult based on that, which was not obtained as yet. This showed soft tissue mass in the left inferior but inflammatory changes of the right mandible. Oral surgery consultation apparently was obtained today, is requested today now. She apparently has some history of recent dental abscess as an outpatient. The patient has decreased mental status currently and therefore history is not obtainable from her and therefore was obtained through the chart notes. She was treated for a dental infection for a couple of days prior to admission with amoxicillin but was brought in for chest pain and had elevated troponins. PAST MEDICAL HISTORY: Positive for blood disorder, coronary disease, reflux, hyperlipidemia, hypertension, Buerger disease with CO, chronic thrombocytopenia. PAST SURGICAL HISTORY: Cholecystectomy, hysterectomy, joint replacement orthopedic surgery, thyroid surgery, ERCP, and hip repair. SOCIAL HISTORY: Former smoker. Denies alcohol consumption. FAMILY HISTORY: cancer, myocardial infarction. MEDICATIONS: At home, 1. Pravastatin. 2. Primidone. 3. Kenalog. 4. Lactulose. 5. Aspirin. 6. Metoprolol. 7. ProAmatine. 8. Albuterol. 9. Fluticasone. 10.Lasix. 11.Claritin. 12.Rifaximin. 13.Robitussin. 14.Flexeril. ALLERGIES: To cephalexin, codeine, doxepin, Demerol, Medrol, opioids, penicillin, Darvocet, and tramadol. REVIEW OF SYSTEMS: Negative other than as above other than unattainable due to her lethargy. PHYSICAL EXAMINATION: GENERAL: Well-developed adult white female, no acute distress, but is lethargic and responds only minimally to questioning. VITAL SIGNS: Appears stable overall. Currently on nasal cannula oxygen. The patient was lethargic, but breathing spontaneously well. Responds minimally to questioning. HEENT: Head: Normocephalic, atraumatic. Ears bilaterally clear. Canals are clear. Tympanic membranes unremarkable and mobile. Nose, no drainage or obstruction. Does have nasal cannula oxygen in place. Oral cavity is nearly edentulous with multiple lower mandible carious teeth. No erythema or purulence surrounding these nontender, edentulous maxilla, oropharynx unremarkable. NECK: Supple. Mild tenderness over the right mandible, but no swelling or erythema. No fluctuance. Left lower neck approximately 4 cm soft, nontender, mobile mass, which may be related to thyroid, this is in the area of the thyroid bed. CT of the neck, which was limited due to limited IV contrast and limited vaughan showed some inflammatory change of the right mandible. The left neck mass appeared confluent with the left thyroid and it appeared solid with no fluid aspect. ASSESSMENT: 1. Left neck mass, probable thyroid nodule or goiter. 2. Poor dentition with recent dental abscess and some changes of the right mandible related to this. PLAN: Recommend ultrasound-guided fine-needle aspiration/core biopsy of the left neck mass and this will be done through Radiology. Oral Surgery consultation is being obtained for the dentition and possible secondary infection. If there are any questions regarding this consultation, please feel free to contact me. MMODL / IJN: [id number] /
[2023-05-08 14:13] LABS: T4, Free (Free Thyroxine) 1.36 ng/dL (0.78-2.19)
--- NOTE | 2023-05-08 14:14 | P.PN ---
Subjective Progress Note Date: 05/08/23 Principal diagnosis: Reason for follow-up is leukocytosis and UTI Patient is a 82-year-old female with a past medical history significant for hypertension hyperlipidemia thrombocytopenia cirrhosis of the liver IN osteoarthritis patient was brought into the ER for evaluation of chest pain patient subsequently did have significant worsening of her mentation did have a positive UA concerning for possible component of UTI On today's evaluation that is 05/08/2023, Patient did have significant change in her clinical condition patient become hypothermic and hypotensive requiring transfer to the ICU, as of this afternoon the patient is afebrile ,patient is currently on 2 L nasal cannula oxygen patient requiring pressor support has been complaining of hurting all over unable to pinpoint her pain no vomiting or diarrhea reported by the nursing staff. Patient white count is 11.6, creatinine is 2.78 Objective - Vital Signs Vital signs: Vital Signs Temp 97.8 F 05/08/23 08:00 Pulse 72 05/08/23 10:15 Resp 20 05/08/23 10:15 BP 100/45 05/08/23 10:15 Pulse Ox 97 05/08/23 10:15 FiO2 Intake & Output 05/07/23 05/08/23 05/08/23 18:59 06:59 18:59 Intake Total 1041.558 875.713 Output Total 310 35 Balance 731.558 840.713 Weight 92.7 kg Intake: IV 50 .9 kvo 50 Intake, IV Titration 1041.558 825.713 Amount Dextrose 5% in Water 1, 480 160 000 ml @ 80 mls/hr IV . [id number] RONI with Sodium Bicarb (1 Meq/ml) 150 ml Rx#:[id number] Lactated Ringers 1,000 ml 600 @ 50 mls/hr IV .Q20H RONI Rx#:[id number] Norepinephrine 4 mg In 61.558 65.713 Sodium Chloride 0.9% 250 ml @ 0.03 MCG/KG/MIN 6.74 mls/hr IV .Q24H RONI Rx#: [id number] Sodium Chloride 0.9% 500 500 ml 500 ml @ 999 mls/hr IV .Q31M ONE Rx#:[id number] Output: Urine 310 35 Other: Voiding Method Indwelling Catheter Indwelling Catheter Indwelling Catheter # Bowel Movements 1 - Exam GENERAL DESCRIPTION: An elderly Female lying in bed in no distress HEENT: Patient did have poor dentition to the lower jaw with a significant to the left lower jaw area no swelling induration or tenderness to the neck area was noticed RESPIRATORY SYSTEM: Unlabored breathing , decreased breath sounds at bases HEART: S1 S2 regular rate and rhythm , ABDOMEN: Soft , no tenderness EXTREMITIES: No edema feet - Labs CBC & Chem 7: 05/08/23 04:09 05/08/23 04:09 Labs: Abnormal Lab Results - Last 24 Hours (Table) 05/07/23 05/07/23 05/07/23 Range/Units 16:02 20:02 23:46 WBC (3.8-10.6) k/uL RBC (3.80-5.40) m/uL Hgb (11.4-16.0) gm/dL Hct (34.0-46.0) % MCV (80.0-100.0) fL RDW (11.5-15.5) % Plt Count (150-450) k/uL Neutrophils # (1.3-7.7) k/uL Lymphocytes # (1.0-4.8) k/uL Sodium (137-145) mmol/L Chloride (98-107) mmol/L Carbon Dioxide (22-30) mmol/L BUN (7-17) mg/dL Creatinine (0.52-1.04) mg/dL Glucose (74-99) mg/dL POC Glucose (mg/dL) 159 H 166 H 191 H (70-110) mg/dL Calcium (8.4-10.2) mg/dL Magnesium (1.6-2.3) mg/dL Total Bilirubin (0.2-1.3) mg/dL Delta Bilirubin (0.0-0.2) mg/dL AST (14-36) U/L Alkaline Phosphatase (38-126) U/L Ammonia (<30) umol/L Total Protein (6.3-8.2) g/dL Albumin (3.5-5.0) g/dL TSH (0.465-4.680) mIU/L 05/08/23 05/08/23 05/08/23 Range/Units 00:07 00:20 00:20 WBC (3.8-10.6) k/uL RBC 3.13 L (3.80-5.40) m/uL Hgb 10.1 L (11.4-16.0) gm/dL Hct 31.6 L (34.0-46.0) % MCV 100.9 H (80.0-100.0) fL RDW 16.2 H (11.5-15.5) % Plt Count 41 L (150-450) k/uL Neutrophils # 8.0 H (1.3-7.7) k/uL Lymphocytes # 0.6 L (1.0-4.8) k/uL Sodium 131 L (137-145) mmol/L Chloride (98-107) mmol/L Carbon Dioxide (22-30) mmol/L BUN 74 H (7-17) mg/dL Creatinine 2.72 H (0.52-1.04) mg/dL Glucose 147 H (74-99) mg/dL POC Glucose (mg/dL) 183 H (70-110) mg/dL Calcium 6.6 L (8.4-10.2) mg/dL Magnesium 2.7 H (1.6-2.3) mg/dL Total Bilirubin 1.6 H (0.2-1.3) mg/dL Delta Bilirubin (0.0-0.2) mg/dL AST 47 H (14-36) U/L Alkaline Phosphatase 284 H (38-126) U/L Ammonia (<30) umol/L Total Protein 4.5 L (6.3-8.2) g/dL Albumin 2.0 L (3.5-5.0) g/dL TSH (0.465-4.680) mIU/L 05/08/23 05/08/23 05/08/23 Range/Units 04:09 04:09 04:28 WBC 11.6 H (3.8-10.6) k/uL RBC 3.38 L (3.80-5.40) m/uL Hgb 10.9 L (11.4-16.0) gm/dL Hct 33.7 L (34.0-46.0) % MCV (80.0-100.0) fL RDW 16.4 H (11.5-15.5) % Plt Count 55 L (150-450) k/uL Neutrophils # 9.6 H (1.3-7.7) k/uL Lymphocytes # 0.8 L (1.0-4.8) k/uL Sodium 130 L (137-145) mmol/L Chloride 96 L (98-107) mmol/L Carbon Dioxide 33 H (22-30) mmol/L BUN 74 H (7-17) mg/dL Creatinine 2.78 H (0.52-1.04) mg/dL Glucose 137 H (74-99) mg/dL POC Glucose (mg/dL) 173 H (70-110) mg/dL Calcium 6.7 L (8.4-10.2) mg/dL Magnesium 2.7 H (1.6-2.3) mg/dL Total Bilirubin 1.9 H (0.2-1.3) mg/dL Delta Bilirubin 1.0 H (0.0-0.2) mg/dL AST 51 H (14-36) U/L Alkaline Phosphatase 314 H (38-126) U/L Ammonia (<30) umol/L Total Protein 4.8 L (6.3-8.2) g/dL Albumin 2.2 L (3.5-5.0) g/dL TSH (0.465-4.680) mIU/L 05/08/23 05/08/23 05/08/23 Range/Units 07:58 11:50 11:50 WBC (3.8-10.6) k/uL RBC (3.80-5.40) m/uL Hgb (11.4-16.0) gm/dL Hct (34.0-46.0) % MCV (80.0-100.0) fL RDW (11.5-15.5) % Plt Count (150-450) k/uL Neutrophils # (1.3-7.7) k/uL Lymphocytes # (1.0-4.8) k/uL Sodium (137-145) mmol/L Chloride (98-107) mmol/L Carbon Dioxide (22-30) mmol/L BUN (7-17) mg/dL Creatinine (0.52-1.04) mg/dL Glucose (74-99) mg/dL POC Glucose (mg/dL) 132 H (70-110) mg/dL Calcium (8.4-10.2) mg/dL Magnesium (1.6-2.3) mg/dL Total Bilirubin (0.2-1.3) mg/dL Delta Bilirubin (0.0-0.2) mg/dL AST (14-36) U/L Alkaline Phosphatase (38-126) U/L Ammonia 43 H (<30) umol/L Total Protein (6.3-8.2) g/dL Albumin (3.5-5.0) g/dL TSH 5.980 H (0.465-4.680) mIU/L 05/08/23 Range/Units 11:57 WBC (3.8-10.6) k/uL RBC (3.80-5.40) m/uL Hgb (11.4-16.0) gm/dL Hct (34.0-46.0) % MCV (80.0-100.0) fL RDW (11.5-15.5) % Plt Count (150-450) k/uL Neutrophils # (1.3-7.7) k/uL Lymphocytes # (1.0-4.8) k/uL Sodium (137-145) mmol/L Chloride (98-107) mmol/L Carbon Dioxide (22-30) mmol/L BUN (7-17) mg/dL Creatinine (0.52-1.04) mg/dL Glucose (74-99) mg/dL POC Glucose (mg/dL) 119 H (70-110) mg/dL Calcium (8.4-10.2) mg/dL Magnesium (1.6-2.3) mg/dL Total Bilirubin (0.2-1.3) mg/dL Delta Bilirubin (0.0-0.2) mg/dL AST (14-36) U/L Alkaline Phosphatase (38-126) U/L Ammonia (<30) umol/L Total Protein (6.3-8.2) g/dL Albumin (3.5-5.0) g/dL TSH (0.465-4.680) mIU/L Assessment and Plan (1) Leukocytosis Current Visit: Yes Status: Acute Code(s): D72.829 - ELEVATED WHITE BLOOD CELL COUNT, UNSPECIFIED SNOMED Code(s): 270828065 (2) Allergy to multiple antibiotics Current Visit: Yes Status: Acute Code(s): Z88.1 - ALLERGY STATUS TO OTHER ANTIBIOTIC AGENTS SNOMED Code(s): 916948914 (3) Urinary tract infection Current Visit: No Status: Acute Code(s): N39.0 - URINARY TRACT INFECTION, SITE NOT SPECIFIED SNOMED Code(s): 17161276 Plan: 1patient with a mental status change which is likely multifactorial due to an episode of vomiting and a positive UA defect, UA on admission that was negative and the patient last urine culture done on 04/26/2023 was ESBL E. coli could be the same pathogen 2-patient noticed to have significant abnormality on the CT of the neck area clinically no significant findings except bad dentition ENT has been consulted, await evaluation 3- patient did have significant change in her clinical condition become hypotensive and hypothermic concerning for sepsis, we will repeat blood culture repeat a UA check inflammatory markers continue with the ertapenem and daughter at the bedside multiple question concern answered Dictation was produced using [employer] dictation software. please excuse any grammatical, word or spelling errors. Time with Patient: Less than 30
[2023-05-08 14:21] LABS: Amorphous Sediment,Urine Few /hpf; Appearance,Urine Turbid (Clear); Bacteria,Urine Occasional /hpf; Bilirubin,Urine 1+ (Negative); Blood,Urine Moderate (Negative); Color,Urine Yellow; Glucose,Urine (UA) Negative (Negative); Hyaline Casts,Urine 79 /lpf (0-2); Ketones,Urine Negative (Negative); Leukocyte Esterase,Urine Small (Negative); Mucus,Urine Rare /hpf; Nitrite,Urine Negative (Negative); Protein,Urine 1+ (Negative); RBC,Urine 111 /hpf (0-5); Squamous Epithelial Cell,Urine 10 /hpf (0-4); WBC,Urine 41 /hpf (0-5)
[2023-05-08] MEDS: LACTULOSE 200 GM/300 ML (FROM 1/2 GAL JUG) RECTAL SCH ×2 (15:36→23:00)
[2023-05-08 16:49] LABS: Glucose,Whole Blood 113 mg/dL (70-110)
[2023-05-08] MEDS: ASPIRIN 300 MG SUPP RECTAL SCH (17:14)
--- NOTE | 2023-05-08 18:01 | P.GSCN ---
History of Present Illness Consult date: 05/08/23 Reason for Consult: Rule out dental abscess Requesting physician: Kristal Hammer History of present illness: 82-year-old female in the intensive care unit with multiple complex medical problems based on chart review. Patient is in bed nonresponsive except to painful stimuli. All history based on chart review. Patient was admitted through the emergency room on November 28 with chest wall pain rib fracture compression fracture elevated troponins. Of note seems have received an antibiotic from her GI doctor possibly for dental infection unclear as to when this was. During her admission her mental status has deteriorated as has her medical condition. CAT scan on 05/04 shows chronically decayed teeth no abscess noted. 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 Kan). 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 Freq. platelet transfusion with most procedures. Date of Last Stent Placement:: 1998 Past Psychological History: No Psychological Hx Reported Smoking Status: Former smoker Past Alcohol Use History: None Reported Additional Past Alcohol Use History / Comment(s): smokes maybe weekly- 1-2 cigarettes- had smoked and quit for 12 yrs and started up about 5 yrs ago again Past Drug Use History: None Reported - Past Family History Mother Family Medical History: Cancer Additional Family Medical History / Comment(s): Breast Ca Father Family Medical History: Myocardial Infarction ([place]) Additional Family Medical History / Comment(s): @ age 86 from [place] Medications and Allergies Home Medications Medication Instructions Recorded Confirmed Type Pravastatin Sodium 80 mg PO DAILY 07/30/20 04/30/23 History Primidone [Mysoline] 50 mg PO BID 07/30/20 04/30/23 History Triamcinolone 0.1% Ointment 1 applic TOPICAL DAILY PRN 12/03/22 04/30/23 History [Kenalog 0.1% Ointment] Metoprolol Succinate (ER) [Toprol 12.5 mg PO DAILY #30 tab 12/10/22 04/30/23 Rx XL] Midodrine [ProAmatine] 5 mg PO AC-TID #90 tab 12/10/22 04/30/23 Rx Furosemide [Lasix] 40 mg PO BID #0 12/16/22 04/30/23 Rx Ketorolac [Toradol] 10 mg PO Q8HR #15 tab 04/26/23 04/30/23 Rx Lidocaine 5% Patch [Lidoderm 5% 1 patch TOPICAL DAILY #5 patch 04/26/23 04/30/23 Rx Patch] Ampicillin 500mg Capsule 500 mg PO DAILY 04/30/23 04/30/23 History Clotrimazole/Betameth Cream 1 applic TOPICAL BID 04/30/23 04/30/23 History [Lotrisone] Cyclobenzaprine [Flexeril] 10 mg PO TID PRN 04/30/23 04/30/23 History Lactulose [Constulose] 30 gm PO TID 04/30/23 04/30/23 History Allergies Allergy/AdvReac Type Severity Reaction Status Date / Time cephalexin monohydrate Allergy Rash/Hives/ Verified 04/30/23 12:21 [From Keflex] Swelling codeine Allergy Rash/Hives Verified 04/30/23 12:21 doxepin Allergy Rash/Hives Verified 04/30/23 12:21 meperidine HCl [From Demerol] Allergy Rash/Hives Verified 04/30/23 12:21 methylprednisolone Allergy Rash/Hives Verified 04/30/23 12:21 [From Medrol] Opioids - Morphine Analogues Allergy Rash/Hives Verified 04/30/23 12:21 Penicillins Allergy Swelling Verified 04/30/23 12:21 over entire body pentazocine lactate Allergy Rash/Hives-Stomach Verified 04/30/23 12:21 [From Talwin] Upset propoxyphene napsylate Allergy Rash/Hives- Verified 04/30/23 12:21 [From Darvocet-N] Itch tramadol Allergy Rash/Hives Verified 04/30/23 12:21 ketorolac [From Toradol] AdvReac Hallucinati Verified 04/30/23 12:27 ons Surgical - Exam Vital Signs Temp Pulse Resp BP Pulse Ox 98.3 F 125 H 24 106/55 96 04/29/23 22:45 04/29/23 22:45 04/29/23 22:45 04/29/23 22:45 04/29/23 22:45 Patient in bed in ICU unresponsive except to painful stimuli. All lower 7 teeth have been decayed at the gumline. No swelling noted but patient seems more tender on the right mandible and when pushing on the right mandible slight amount of pus came from the sulcus of tooth #29. This pus was cultured for aerobic anaerobic bacteria. The mandible fell intact with no bony perforations palpable on the alveolar process. No teeth on the upper noted. No floor of mouth swelling uvula and tongue midline. Results - Labs 05/08/23 04:09 05/08/23 04:09 Abnormal Lab Results - Last 24 Hours (Table) 05/07/23 05/07/23 05/08/23 Range/Units 20:02 23:46 00:07 WBC (3.8-10.6) k/uL RBC (3.80-5.40) m/uL Hgb (11.4-16.0) gm/dL Hct (34.0-46.0) % MCV (80.0-100.0) fL RDW (11.5-15.5) % Plt Count (150-450) k/uL Neutrophils # (1.3-7.7) k/uL Lymphocytes # (1.0-4.8) k/uL Sodium (137-145) mmol/L Chloride (98-107) mmol/L Carbon Dioxide (22-30) mmol/L BUN (7-17) mg/dL Creatinine (0.52-1.04) mg/dL Glucose (74-99) mg/dL POC Glucose (mg/dL) 166 H 191 H 183 H (70-110) mg/dL Calcium (8.4-10.2) mg/dL Magnesium (1.6-2.3) mg/dL Total Bilirubin (0.2-1.3) mg/dL Delta Bilirubin (0.0-0.2) mg/dL AST (14-36) U/L Alkaline Phosphatase (38-126) U/L Ammonia (<30) umol/L C-Reactive Protein (<1.0) mg/dL Total Protein (6.3-8.2) g/dL Albumin (3.5-5.0) g/dL TSH (0.465-4.680) mIU/L Urine Appearance (Clear) Urine Protein (Negative) Urine Blood (Negative) Urine Bilirubin (Negative) Ur Leukocyte Esterase (Negative) Urine RBC (0-5) /hpf Urine WBC (0-5) /hpf Urine WBC Clumps (None) /hpf Ur Squamous Epith Cells (0-4) /hpf Amorphous Sediment (None) /hpf Urine Bacteria (None) /hpf Hyaline Casts (0-2) /lpf Urine Mucus (None) /hpf 05/08/23 05/08/23 05/08/23 Range/Units 00:20 00:20 04:09 WBC 11.6 H (3.8-10.6) k/uL RBC 3.13 L 3.38 L (3.80-5.40) m/uL Hgb 10.1 L 10.9 L (11.4-16.0) gm/dL Hct 31.6 L 33.7 L (34.0-46.0) % MCV 100.9 H (80.0-100.0) fL RDW 16.2 H 16.4 H (11.5-15.5) % Plt Count 41 L 55 L (150-450) k/uL Neutrophils # 8.0 H 9.6 H (1.3-7.7) k/uL Lymphocytes # 0.6 L 0.8 L (1.0-4.8) k/uL Sodium 131 L (137-145) mmol/L Chloride (98-107) mmol/L Carbon Dioxide (22-30) mmol/L BUN 74 H (7-17) mg/dL Creatinine 2.72 H (0.52-1.04) mg/dL Glucose 147 H (74-99) mg/dL POC Glucose (mg/dL) (70-110) mg/dL Calcium 6.6 L (8.4-10.2) mg/dL Magnesium 2.7 H (1.6-2.3) mg/dL Total Bilirubin 1.6 H (0.2-1.3) mg/dL Delta Bilirubin (0.0-0.2) mg/dL AST 47 H (14-36) U/L Alkaline Phosphatase 284 H (38-126) U/L Ammonia (<30) umol/L C-Reactive Protein (<1.0) mg/dL Total Protein 4.5 L (6.3-8.2) g/dL Albumin 2.0 L (3.5-5.0) g/dL TSH (0.465-4.680) mIU/L Urine Appearance (Clear) Urine Protein (Negative) Urine Blood (Negative) Urine Bilirubin (Negative) Ur Leukocyte Esterase (Negative) Urine RBC (0-5) /hpf Urine WBC (0-5) /hpf Urine WBC Clumps (None) /hpf Ur Squamous Epith Cells (0-4) /hpf Amorphous Sediment (None) /hpf Urine Bacteria (None) /hpf Hyaline Casts (0-2) /lpf Urine Mucus (None) /hpf 05/08/23 05/08/23 05/08/23 Range/Units 04:09 04:28 07:58 WBC (3.8-10.6) k/uL RBC (3.80-5.40) m/uL Hgb (11.4-16.0) gm/dL Hct (34.0-46.0) % MCV (80.0-100.0) fL RDW (11.5-15.5) % Plt Count (150-450) k/uL Neutrophils # (1.3-7.7) k/uL Lymphocytes # (1.0-4.8) k/uL Sodium 130 L (137-145) mmol/L Chloride 96 L (98-107) mmol/L Carbon Dioxide 33 H (22-30) mmol/L BUN 74 H (7-17) mg/dL Creatinine 2.78 H (0.52-1.04) mg/dL Glucose 137 H (74-99) mg/dL POC Glucose (mg/dL) 173 H 132 H (70-110) mg/dL Calcium 6.7 L (8.4-10.2) mg/dL Magnesium 2.7 H (1.6-2.3) mg/dL Total Bilirubin 1.9 H (0.2-1.3) mg/dL Delta Bilirubin 1.0 H (0.0-0.2) mg/dL AST 51 H (14-36) U/L Alkaline Phosphatase 314 H (38-126) U/L Ammonia (<30) umol/L C-Reactive Protein (<1.0) mg/dL Total Protein 4.8 L (6.3-8.2) g/dL Albumin 2.2 L (3.5-5.0) g/dL TSH (0.465-4.680) mIU/L Urine Appearance (Clear) Urine Protein (Negative) Urine Blood (Negative) Urine Bilirubin (Negative) Ur Leukocyte Esterase (Negative) Urine RBC (0-5) /hpf Urine WBC (0-5) /hpf Urine WBC Clumps (None) /hpf Ur Squamous Epith Cells (0-4) /hpf Amorphous Sediment (None) /hpf Urine Bacteria (None) /hpf Hyaline Casts (0-2) /lpf Urine Mucus (None) /hpf 05/08/23 05/08/23 05/08/23 Range/Units 11:50 11:50 11:57 WBC (3.8-10.6) k/uL RBC (3.80-5.40) m/uL Hgb (11.4-16.0) gm/dL Hct (34.0-46.0) % MCV (80.0-100.0) fL RDW (11.5-15.5) % Plt Count (150-450) k/uL Neutrophils # (1.3-7.7) k/uL Lymphocytes # (1.0-4.8) k/uL Sodium (137-145) mmol/L Chloride (98-107) mmol/L Carbon Dioxide (22-30) mmol/L BUN (7-17) mg/dL Creatinine (0.52-1.04) mg/dL Glucose (74-99) mg/dL POC Glucose (mg/dL) 119 H (70-110) mg/dL Calcium (8.4-10.2) mg/dL Magnesium (1.6-2.3) mg/dL Total Bilirubin (0.2-1.3) mg/dL Delta Bilirubin (0.0-0.2) mg/dL AST (14-36) U/L Alkaline Phosphatase (38-126) U/L Ammonia 43 H (<30) umol/L C-Reactive Protein (<1.0) mg/dL Total Protein (6.3-8.2) g/dL Albumin (3.5-5.0) g/dL TSH 5.980 H (0.465-4.680) mIU/L Urine Appearance (Clear) Urine Protein (Negative) Urine Blood (Negative) Urine Bilirubin (Negative) Ur Leukocyte Esterase (Negative) Urine RBC (0-5) /hpf Urine WBC (0-5) /hpf Urine WBC Clumps (None) /hpf Ur Squamous Epith Cells (0-4) /hpf Amorphous Sediment (None) /hpf Urine Bacteria (None) /hpf Hyaline Casts (0-2) /lpf Urine Mucus (None) /hpf 05/08/23 05/08/23 05/08/23 Range/Units 13:50 14:02 16:47 WBC (3.8-10.6) k/uL RBC (3.80-5.40) m/uL Hgb (11.4-16.0) gm/dL Hct (34.0-46.0) % MCV (80.0-100.0) fL RDW (11.5-15.5) % Plt Count (150-450) k/uL Neutrophils # (1.3-7.7) k/uL Lymphocytes # (1.0-4.8) k/uL Sodium (137-145) mmol/L Chloride (98-107) mmol/L Carbon Dioxide (22-30) mmol/L BUN (7-17) mg/dL Creatinine (0.52-1.04) mg/dL Glucose (74-99) mg/dL POC Glucose (mg/dL) 113 H (70-110) mg/dL Calcium (8.4-10.2) mg/dL Magnesium (1.6-2.3) mg/dL Total Bilirubin (0.2-1.3) mg/dL Delta Bilirubin (0.0-0.2) mg/dL AST (14-36) U/L Alkaline Phosphatase (38-126) U/L Ammonia (<30) umol/L C-Reactive Protein 8.6 H (<1.0) mg/dL Total Protein (6.3-8.2) g/dL Albumin (3.5-5.0) g/dL TSH (0.465-4.680) mIU/L Urine Appearance Turbid H (Clear) Urine Protein 1+ H (Negative) Urine Blood Moderate H (Negative) Urine Bilirubin 1+ H (Negative) Ur Leukocyte Esterase Small H (Negative) Urine RBC 111 H (0-5) /hpf Urine WBC 41 H (0-5) /hpf Urine WBC Clumps Rare H (None) /hpf Ur Squamous Epith Cells 10 H (0-4) /hpf Amorphous Sediment Few H (None) /hpf Urine Bacteria Occasional H (None) /hpf Hyaline Casts 79 H (0-2) /lpf Urine Mucus Rare H (None) /hpf Diabetes panel 05/08/23 05/08/23 Range/Units 00:20 04:09 Sodium 131 L 130 L (137-145) mmol/L Potassium 4.9 4.9 (3.5-5.1) mmol/L Chloride 98 96 L (98-107) mmol/L Carbon Dioxide 28 33 H (22-30) mmol/L BUN 74 H 74 H (7-17) mg/dL Creatinine 2.72 H 2.78 H (0.52-1.04) mg/dL Glucose 147 H 137 H (74-99) mg/dL Calcium 6.6 L 6.7 L (8.4-10.2) mg/dL AST 47 H 51 H (14-36) U/L ALT 20 21 (4-34) U/L Alkaline Phosphatase 284 H 314 H (38-126) U/L Total Protein 4.5 L 4.8 L (6.3-8.2) g/dL Albumin 2.0 L 2.2 L (3.5-5.0) g/dL Thyroid panel 05/08/23 Range/Units 11:50 TSH 5.980 H (0.465-4.680) mIU/L Calcium panel 05/08/23 05/08/23 Range/Units 00:20 04:09 Calcium 6.6 L 6.7 L (8.4-10.2) mg/dL Albumin 2.0 L 2.2 L (3.5-5.0) g/dL Pituitary panel 05/08/23 05/08/23 05/08/23 Range/Units 00:20 04:09 11:50 Sodium 131 L 130 L (137-145) mmol/L Potassium 4.9 4.9 (3.5-5.1) mmol/L Chloride 98 96 L (98-107) mmol/L Carbon Dioxide 28 33 H (22-30) mmol/L BUN 74 H 74 H (7-17) mg/dL Creatinine 2.72 H 2.78 H (0.52-1.04) mg/dL Glucose 147 H 137 H (74-99) mg/dL Calcium 6.6 L 6.7 L (8.4-10.2) mg/dL TSH 5.980 H (0.465-4.680) mIU/L Adrenal panel 05/08/23 05/08/23 Range/Units 00:20 04:09 Sodium 131 L 130 L (137-145) mmol/L Potassium 4.9 4.9 (3.5-5.1) mmol/L Chloride 98 96 L (98-107) mmol/L Carbon Dioxide 28 33 H (22-30) mmol/L BUN 74 H 74 H (7-17) mg/dL Creatinine 2.72 H 2.78 H (0.52-1.04) mg/dL Glucose 147 H 137 H (74-99) mg/dL Calcium 6.6 L 6.7 L (8.4-10.2) mg/dL Total Bilirubin 1.6 H 1.9 H (0.2-1.3) mg/dL AST 47 H 51 H (14-36) U/L ALT 20 21 (4-34) U/L Alkaline Phosphatase 284 H 314 H (38-126) U/L Total Protein 4.5 L 4.8 L (6.3-8.2) g/dL Albumin 2.0 L 2.2 L (3.5-5.0) g/dL - Imaging Comments: CT facial bones reviewed no obvious abscess noted on the right or left mandible. Patient appears to have retained root tips were previous extractions on the right side and these seem to be stable. Panoramic reconstruction shows gross decay of all remaining lower teeth. Assessment and Plan Assessment: Patient has chronic gross decay of all remaining lower teeth. Appears to have spontaneous drainage of pus emanating from the sulcus of tooth #29 which was cultured. Plan: Recommend following culture results to guide antibiotic therapy. Seems unlikely given the small amount of pus and lack of inflammation at her dental infection is causing her severe medical decline but at some point in the future all of her lower teeth need to be removed. Patient's poor medical condition and complex hospital course make Her a poor candidate for general anesthesia. as her condition improves would consider removal of teeth provided cardiology and medicine and anesthesia would sign off. Time with Patient: Greater than 30 (Due to the complexity of her case with chart review was much longer than 30 minutes as well as cultures obtained at the bedside)
--- NOTE | 2023-05-08 18:15 | CT ---
Reconstruction of CT facial bones. Please see [id number].
[2023-05-08 21:12] LABS: Glucose,Whole Blood 107 mg/dL (70-110)
[2023-05-09 00:07] LABS: Glucose,Whole Blood 119 mg/dL (70-110)
[2023-05-09 02:22] LABS: Basophils % (A) 0 %; Eosinophils # (A) 0.1 k/uL (0-0.7); Eosinophils % (A) 1 %; HCT 34.2 % (34.0-46.0); Hypochromasia Moderate; Lymphocytes # (A) 0.7 k/uL (1.0-4.8); Lymphocytes % (A) 6 %; MCH 32.2 pg (25.0-35.0); MCHC 32.2 g/dL (31.0-37.0); MCV 99.9 fL (80.0-100.0); Macrocytosis Slight; Mean Platelet Volume 10.4; Monocytes # (A) 0.7 k/uL (0-1.0); Monocytes % (A) 6 %; Neutrophils # (A) 9.2 k/uL (1.3-7.7); Neutrophils % (A) 82 %; Platelet Count 55 k/uL (150-450); Poikilocytosis Slight; RBC 3.42 m/uL (3.80-5.40); RDW 15.8 % (11.5-15.5); WBC 11.1 k/uL (3.8-10.6)
[2023-05-09 02:32] LABS: African American GFR (CKD) 19 (>60 ml/min/1.73 sqM); Anion Gap 4 mmol/L; Blood Urea Nitrogen 78 mg/dL (7-17); Calcium 6.9 mg/dL (8.4-10.2); Carbon Dioxide 30 mmol/L (22-30); Chloride 98 mmol/L (98-107); Glucose 85 mg/dL (74-99); Non-African American GFR(CKD) 16 (>60 ml/min/1.73 sqM); Potassium 5.8 mmol/L (3.5-5.1); Sodium 132 mmol/L (137-145)
[2023-05-09 03:36] LABS: Glucose,Whole Blood 89 mg/dL (70-110)
[2023-05-09] MEDS: DEXTROSE 50% SYRINGE 50 ML IVP STA (04:20)
[2023-05-09] MEDS: INSULIN REGULAR 100 UNIT/ML VIAL (IV) IV ONE (04:20)
--- NOTE | 2023-05-09 09:12 | P.PN ---
Subjective Progress Note Date: 05/09/23 This is an 82-year-old female patient with a history of liver cirrhosis, pancytopenia, coronary artery disease with previous stent placement, compression fracture of T7 and T8, acute left posterior eighth rib fracture, thyroid mass, new onset atrial fibrillation and non-ST segment elevation myocardial in farction. She had been admitted back on 04/29/2023 with chest pain and shortness of breath. Echocardiogram revealed impaired left ventricular systolic function with ejection fraction 45%. She was being cared for on the selective care unit. Last evening at a approximately 1145 and rapid response team was called due to hypotension with blood pressure 70 over 40s. She received 100 mL of fluid res uscitation and was transferred to the intensive care unit and initiated on norepinephrine. She is seen today in consultation. She is lethargic. Minimally responsive. She had been calling out in pain earlier. When she was repositioned she settled down. This is felt to be secondary to her compression fractures and rib fractures. He does have a stage II decubitus ulcer. She also has severe suspected neuropathy of the bilateral lower extremities. She is maintaining good O2 saturation in the mid 90s on 2 L/min per nasal cannula. 0.08 mcg/kg/min. She has normal staying at 80 MLS per hour. White count 11.9. Platelets 55,000. Sodium 130. Potassium 4.9. Bicarb 33. BUN 74. Creatinine 2.78. Glucose 137. Urine culture reveals no growth. Currently on ertapenem. X-ray reveals cardiomegaly with mild central vascular congestion and interstitial opacities suggesting edema. Small to moderate bibasilar pleural effusions with adjacent atelectasis. On today's evaluation of 05/09/2023, the patient is being seen for a follow-up. As mentioned, the patient was transferred to the intensive care unit yesterday because of hypotension. She has multiple medical problems including coronary artery disease and previous coronary intervention and stenting and the patient also has liver cirrhosis, and she did encounter a new onset atrial fibrillation. At the same time, the patient is suspected to be septic. The patient has been treated with IV fluids. The patient continues to be on pressors and the patient is currently on norepinephrine running 0.14 mcg/kg/min. IV fluids are running in the rate of 50 cc an hour of normal saline. The patient is currently on IV Invanz. The white cell count today is 11.1. Hemoglobin is at 11 and a platelet count is at 55. Note that the patient has chronic thrombocytopenia related to her chronic liver disease. She also had an acute kidney injury and the creatinine peaked at 3 and currently is downtrending down to 2.65. Potassium level today is at 5.8 with a sodium level of 132. LFTs are abnormal with an alkaline phosphatase of 314, AST of 51 and ALT of 21. Her procalcitonin level was at 2.53 and her free T4 was 1.36 with a TSH of 5.9. UA was abnormal suspicious for an underlying urinary tract infection and cultures are still pen ding for now. Meanwhile, the CAT scan of the abdomen and pelvis that was obtained on 05/04/2023 showed no evidence of any acute intra-abdominal process. Nodular contour of the liver was suggestive of liver cirrhosis and the patient had signs of portal hypertension and cardiomegaly and pulm vascular congestion. The CAT scan of the face that was done on 05/04/2023 showed a soft tissue masslike area in the inferior left neck measuring 47 x 36 mm in size and inflammatory changes along the right mandible without an organizing collection. A head and neck abscess cannot be completely ruled out at this point in time. Neurologically, the patient is encephalopathic. She has episodes of crying and yelling and she remains altered. Her the serum ammonia level was 17. The patient remains on lactulose which is unfortunately being given through the rectal source which is causing significant amount of contamination. At the same time, cardiac rhythm is currently controlled and she remains in atrial fibrillation. She remains on amiodarone 200 mg p.o. twice a day. The Toprol has been placed on hold based on her underlying hypotension. Her echocardiogram from 04/30/2023 showed a ejection fraction of 45%, mild RV dilatation, mild mitral regurgitation, no other significant abnormalities noted. Objective - Vital Signs Vital signs: Vital Signs Temp 97.3 F L 05/09/23 04:00 Pulse 75 05/09/23 07:45 Resp 8 L 05/09/23 07:45 BP 93/47 05/09/23 07:45 Pulse Ox 100 05/09/23 08:18 FiO2 Intake & Output 05/08/23 05/09/23 05/09/23 18:59 06:59 18:59 Intake Total 1585.898 951.877 116.091 Output Total 150 195 20 Balance 1435.898 756.877 96.091 Weight 94.9 kg Intake: IV 90 110 10 .9 kvo 90 110 10 Intake, IV Titration 1495.898 841.877 106.091 Amount ACETAMINOPHEN IV (For NPO 100 ) 1,000 mg In Empty Bag 1 bag @ 400 mls/hr IVPB Q6HR PRN Rx#:[id number] Dextrose 5% in Water 1, 160 000 ml @ 80 mls/hr IV . [id number] RONI with Sodium Bicarb (1 Meq/ml) 150 ml Rx#:[id number] Lactated Ringers 1,000 ml 1000 550 50 @ 50 mls/hr IV .Q20H RONI Rx#:[id number] Norepinephrine 4 mg In 235.898 291.877 56.091 Sodium Chloride 0.9% 250 ml @ 0.03 MCG/KG/MIN 6.74 mls/hr IV .Q24H RONI Rx#: [id number] Output: Urine 150 195 20 Other: Voiding Method Indwelling Catheter Indwelling Catheter # Bowel Movements 1 - Exam GENERAL EXAM: Arousable, cries out in pain, then drifts off easily 82-year-old female, on 2 L nasal cannula, currently in no apparent distress. The patient is lethargic and encephalopathic. She is able to answer some few questions. No significant agitation at this point in time. HEAD: Normocephalic. EYES: Normal reaction of pupils, equal size. NOSE: Clear with pink turbinates. THROAT: No erythema or exudates. Unable to feel any collection in her mandibular area or neck area to suggest any abscess or masses. She does have however very poor dental condition with multiple decayed teeth and several teeth are missing. The incisors in the lower mandible are rotten and broken and decayed and the gum is pale with occasional areas of patchy redness. NECK: No masses, no JVD. CHEST: No chest wall deformity. LUNGS: Equal air entry with bibasilar crackles. CVS: S1 and S2 normal with no audible murmur, regular rhythm. ABDOMEN: No hepatosplenomegaly, normal bowel sounds, no guarding or rigidity. SPINE: No scoliosis or deformity SKIN: Stage II coccyx ulcer CENTRAL NERVOUS SYSTEM: Brief but nonfocal, tone is normal in all 4 extremities. EXTREMITIES: There is 2+ peripheral edema. No clubbing, no cyanosis. Peripheral pulses are intact. - Labs CBC & Chem 7: 05/09/23 02:08 05/09/23 02:08 Labs: Abnormal Lab Results - Last 24 Hours (Table) 05/08/23 05/08/23 05/08/23 Range/Units 11:50 11:50 11:57 WBC (3.8-10.6) k/uL RBC (3.80-5.40) m/uL Hgb (11.4-16.0) gm/dL RDW (11.5-15.5) % Plt Count (150-450) k/uL Neutrophils # (1.3-7.7) k/uL Lymphocytes # (1.0-4.8) k/uL Sodium (137-145) mmol/L Potassium (3.5-5.1) mmol/L BUN (7-17) mg/dL Creatinine (0.52-1.04) mg/dL POC Glucose (mg/dL) 119 H (70-110) mg/dL Calcium (8.4-10.2) mg/dL Ammonia 43 H (<30) umol/L C-Reactive Protein (<1.0) mg/dL Procalcitonin (0.02-0.09) ng/mL TSH 5.980 H (0.465-4.680) mIU/L Cortisol 26.2 H (3.1-22.4) UG/DL Urine Appearance (Clear) Urine Protein (Negative) Urine Blood (Negative) Urine Bilirubin (Negative) Ur Leukocyte Esterase (Negative) Urine RBC (0-5) /hpf Urine WBC (0-5) /hpf Urine WBC Clumps (None) /hpf Ur Squamous Epith Cells (0-4) /hpf Amorphous Sediment (None) /hpf Urine Bacteria (None) /hpf Hyaline Casts (0-2) /lpf Urine Mucus (None) /hpf 05/08/23 05/08/23 05/08/23 Range/Units 13:50 14:02 14:02 WBC (3.8-10.6) k/uL RBC (3.80-5.40) m/uL Hgb (11.4-16.0) gm/dL RDW (11.5-15.5) % Plt Count (150-450) k/uL Neutrophils # (1.3-7.7) k/uL Lymphocytes # (1.0-4.8) k/uL Sodium (137-145) mmol/L Potassium (3.5-5.1) mmol/L BUN (7-17) mg/dL Creatinine (0.52-1.04) mg/dL POC Glucose (mg/dL) (70-110) mg/dL Calcium (8.4-10.2) mg/dL Ammonia (<30) umol/L C-Reactive Protein 8.6 H (<1.0) mg/dL Procalcitonin 2.53 H (0.02-0.09) ng/mL TSH (0.465-4.680) mIU/L Cortisol (3.1-22.4) UG/DL Urine Appearance Turbid H (Clear) Urine Protein 1+ H (Negative) Urine Blood Moderate H (Negative) Urine Bilirubin 1+ H (Negative) Ur Leukocyte Esterase Small H (Negative) Urine RBC 111 H (0-5) /hpf Urine WBC 41 H (0-5) /hpf Urine WBC Clumps Rare H (None) /hpf Ur Squamous Epith Cells 10 H (0-4) /hpf Amorphous Sediment Few H (None) /hpf Urine Bacteria Occasional H (None) /hpf Hyaline Casts 79 H (0-2) /lpf Urine Mucus Rare H (None) /hpf 05/08/23 05/09/23 05/09/23 Range/Units 16:47 00:05 02:08 WBC 11.1 H (3.8-10.6) k/uL RBC 3.42 L (3.80-5.40) m/uL Hgb 11.0 L (11.4-16.0) gm/dL RDW 15.8 H (11.5-15.5) % Plt Count 55 L (150-450) k/uL Neutrophils # 9.2 H (1.3-7.7) k/uL Lymphocytes # 0.7 L (1.0-4.8) k/uL Sodium (137-145) mmol/L Potassium (3.5-5.1) mmol/L BUN (7-17) mg/dL Creatinine (0.52-1.04) mg/dL POC Glucose (mg/dL) 113 H 119 H (70-110) mg/dL Calcium (8.4-10.2) mg/dL Ammonia (<30) umol/L C-Reactive Protein (<1.0) mg/dL Procalcitonin (0.02-0.09) ng/mL TSH (0.465-4.680) mIU/L Cortisol (3.1-22.4) UG/DL Urine Appearance (Clear) Urine Protein (Negative) Urine Blood (Negative) Urine Bilirubin (Negative) Ur Leukocyte Esterase (Negative) Urine RBC (0-5) /hpf Urine WBC (0-5) /hpf Urine WBC Clumps (None) /hpf Ur Squamous Epith Cells (0-4) /hpf Amorphous Sediment (None) /hpf Urine Bacteria (None) /hpf Hyaline Casts (0-2) /lpf Urine Mucus (None) /hpf 05/09/23 Range/Units 02:08 WBC (3.8-10.6) k/uL RBC (3.80-5.40) m/uL Hgb (11.4-16.0) gm/dL RDW (11.5-15.5) % Plt Count (150-450) k/uL Neutrophils # (1.3-7.7) k/uL Lymphocytes # (1.0-4.8) k/uL Sodium 132 L (137-145) mmol/L Potassium 5.8 H (3.5-5.1) mmol/L BUN 78 H (7-17) mg/dL Creatinine 2.65 H (0.52-1.04) mg/dL POC Glucose (mg/dL) (70-110) mg/dL Calcium 6.9 L (8.4-10.2) mg/dL Ammonia (<30) umol/L C-Reactive Protein (<1.0) mg/dL Procalcitonin (0.02-0.09) ng/mL TSH (0.465-4.680) mIU/L Cortisol (3.1-22.4) UG/DL Urine Appearance (Clear) Urine Protein (Negative) Urine Blood (Negative) Urine Bilirubin (Negative) Ur Leukocyte Esterase (Negative) Urine RBC (0-5) /hpf Urine WBC (0-5) /hpf Urine WBC Clumps (None) /hpf Ur Squamous Epith Cells (0-4) /hpf Amorphous Sediment (None) /hpf Urine Bacteria (None) /hpf Hyaline Casts (0-2) /lpf Urine Mucus (None) /hpf Microbiology - Last 24 Hours (Table) 05/08/23 17:30 Gram Stain - Preliminary Mouth Assessment and Plan Plan: Hypotension requiring pressor support secondary to sepsis of unclear etiology, possible dental abscess, questionable urinary tract infection with previous cultures of ESBL the patient currently is on norepinephrine running at 0.14 mcg/kg/min and the patient is also being gently hydrated with IV fluids and she is currently on normal saline at rate of 50 cc an hour. She is still pressor dependent. Echocardiogram that was done on 04/30/2023 showed an ejection fraction of 45% and the patient does not have any significant valvular abnormalities. Awaiting further cultures. Blood cultures are still pending. Urine cultures are still pending. Procalcitonin level is elevated could be related to her acute kidney injury Patient has chronic gross decay of all remaining lower teeth. Appears to have spontaneous drainage of pus emanating from the sulcus of tooth #29 which was cultured. Altered mental status secondary to above, multifactorial, partly related to chronic liver disease and encephalopathy related to sepsis cannot be completely excluded. Small bilateral pleural effusion right more than left Acute hypoxic respiratory failure currently on 2 L of oxygen nasal cannula Acute kidney injury secondary to above, creatinine is on the rise and currently is up to 2.22. The patient has a Hinds catheter in place and urine output is in the order of 10 to 25 cc an hour Acute hyperkalemia with a potassium level of 5.7 None anion gap metabolic acidosis Acute pain secondary to compression fractures of T7 and T8 and acute left posterior eighth rib fracture Neuropathy Stage II decubitus ulcer History of liver cirrhosis Pancytopenia Non-ST segment elevation myocardial infarction New onset atrial fibrillation with controlled ventricular response History of coronary disease with previous stent placement Ischemic cardiomyopathy with an ejection fraction 45% Thyroid mass Possible dental abscess platelets are 50 Chronic thrombocytopenia related to chronic liver disease Plan: Switch to IV fluids with bicarb infusion at rate of 50 cc an hour, add 3 A of sodium bicarb and that fluids. Give a dose of Lasix 60 mg IV push Monitor potassium level Continue pressors Continue IV Invanz Ordered surgery regarding her dental condition and possibility of a submandi bular abscess, and the patient is going to have a dental extraction and drainage of the abscess today Monitor the white count Monitor mental status Do a swallow evaluation and switch this patient to oral lactulose as long as she is able to swallow properly We will continue to follow and make further recommendations based on her clinical status Condition is critical in this evaluation with a more than 30 minutes. Time with Patient: Greater than 30
--- NOTE | 2023-05-09 09:36 | P.PN ---
Subjective Patient is seen in follow-up for acute kidney injury. Renal function stable. Urine output 15 to 20 cc an hour. On Levophed. Potassium 5.8. On LR at 50 cc an hour. Vital signs are stable. On Levophed. General: No acute distress. HEENT: Head exam is unremarkable. On nasal cannula. LUNGS: No audible rhonchi or wheezes. HEART: Rate and Rhythm are regular. ABDOMEN: Nontender. EXTREMITITES: 2+ edema. Objective - Vital Signs Vital signs: Vital Signs Temp 97.3 F L 05/09/23 08:00 Pulse 89 05/09/23 09:15 Resp 13 05/09/23 09:15 BP 112/42 05/09/23 09:15 Pulse Ox 97 05/09/23 09:15 FiO2 Intake & Output 05/08/23 05/09/23 05/09/23 18:59 06:59 18:59 Intake Total 1585.898 951.877 236.091 Output Total 150 195 80 Balance 1435.898 756.877 156.091 Weight 94.9 kg Intake: IV 90 110 130 .9 kvo 90 110 30 Lactated Ringers 1,000 ml 50 @ 50 mls/hr IV .Q20H RONI Rx#:[id number] Sodium Chloride 0.9% 1, 50 000 ml @ 50 mls/hr IV . Q20H RONI Rx#:[id number] Intake, IV Titration 1495.898 841.877 106.091 Amount ACETAMINOPHEN IV (For NPO 100 ) 1,000 mg In Empty Bag 1 bag @ 400 mls/hr IVPB Q6HR PRN Rx#:[id number] Dextrose 5% in Water 1, 160 000 ml @ 80 mls/hr IV . [id number] RONI with Sodium Bicarb (1 Meq/ml) 150 ml Rx#:[id number] Lactated Ringers 1,000 ml 1000 550 50 @ 50 mls/hr IV .Q20H RONI Rx#:[id number] Norepinephrine 4 mg In 235.898 291.877 56.091 Sodium Chloride 0.9% 250 ml @ 0.03 MCG/KG/MIN 6.74 mls/hr IV .Q24H RONI Rx#: [id number] Output: Urine 150 195 80 Other: Voiding Method Indwelling Catheter Indwelling Catheter Indwelling Catheter # Bowel Movements 1 - Labs CBC & Chem 7: 05/09/23 02:08 05/09/23 02:08 Labs: Abnormal Lab Results - Last 24 Hours (Table) 05/08/23 05/08/23 05/08/23 Range/Units 11:50 11:50 11:57 WBC (3.8-10.6) k/uL RBC (3.80-5.40) m/uL Hgb (11.4-16.0) gm/dL RDW (11.5-15.5) % Plt Count (150-450) k/uL Neutrophils # (1.3-7.7) k/uL Lymphocytes # (1.0-4.8) k/uL Sodium (137-145) mmol/L Potassium (3.5-5.1) mmol/L BUN (7-17) mg/dL Creatinine (0.52-1.04) mg/dL POC Glucose (mg/dL) 119 H (70-110) mg/dL Calcium (8.4-10.2) mg/dL Ammonia 43 H (<30) umol/L C-Reactive Protein (<1.0) mg/dL Procalcitonin (0.02-0.09) ng/mL TSH 5.980 H (0.465-4.680) mIU/L Cortisol 26.2 H (3.1-22.4) UG/DL Urine Appearance (Clear) Urine Protein (Negative) Urine Blood (Negative) Urine Bilirubin (Negative) Ur Leukocyte Esterase (Negative) Urine RBC (0-5) /hpf Urine WBC (0-5) /hpf Urine WBC Clumps (None) /hpf Ur Squamous Epith Cells (0-4) /hpf Amorphous Sediment (None) /hpf Urine Bacteria (None) /hpf Hyaline Casts (0-2) /lpf Urine Mucus (None) /hpf 05/08/23 05/08/23 05/08/23 Range/Units 13:50 14:02 14:02 WBC (3.8-10.6) k/uL RBC (3.80-5.40) m/uL Hgb (11.4-16.0) gm/dL RDW (11.5-15.5) % Plt Count (150-450) k/uL Neutrophils # (1.3-7.7) k/uL Lymphocytes # (1.0-4.8) k/uL Sodium (137-145) mmol/L Potassium (3.5-5.1) mmol/L BUN (7-17) mg/dL Creatinine (0.52-1.04) mg/dL POC Glucose (mg/dL) (70-110) mg/dL Calcium (8.4-10.2) mg/dL Ammonia (<30) umol/L C-Reactive Protein 8.6 H (<1.0) mg/dL Procalcitonin 2.53 H (0.02-0.09) ng/mL TSH (0.465-4.680) mIU/L Cortisol (3.1-22.4) UG/DL Urine Appearance Turbid H (Clear) Urine Protein 1+ H (Negative) Urine Blood Moderate H (Negative) Urine Bilirubin 1+ H (Negative) Ur Leukocyte Esterase Small H (Negative) Urine RBC 111 H (0-5) /hpf Urine WBC 41 H (0-5) /hpf Urine WBC Clumps Rare H (None) /hpf Ur Squamous Epith Cells 10 H (0-4) /hpf Amorphous Sediment Few H (None) /hpf Urine Bacteria Occasional H (None) /hpf Hyaline Casts 79 H (0-2) /lpf Urine Mucus Rare H (None) /hpf 05/08/23 05/09/23 05/09/23 Range/Units 16:47 00:05 02:08 WBC 11.1 H (3.8-10.6) k/uL RBC 3.42 L (3.80-5.40) m/uL Hgb 11.0 L (11.4-16.0) gm/dL RDW 15.8 H (11.5-15.5) % Plt Count 55 L (150-450) k/uL Neutrophils # 9.2 H (1.3-7.7) k/uL Lymphocytes # 0.7 L (1.0-4.8) k/uL Sodium (137-145) mmol/L Potassium (3.5-5.1) mmol/L BUN (7-17) mg/dL Creatinine (0.52-1.04) mg/dL POC Glucose (mg/dL) 113 H 119 H (70-110) mg/dL Calcium (8.4-10.2) mg/dL Ammonia (<30) umol/L C-Reactive Protein (<1.0) mg/dL Procalcitonin (0.02-0.09) ng/mL TSH (0.465-4.680) mIU/L Cortisol (3.1-22.4) UG/DL Urine Appearance (Clear) Urine Protein (Negative) Urine Blood (Negative) Urine Bilirubin (Negative) Ur Leukocyte Esterase (Negative) Urine RBC (0-5) /hpf Urine WBC (0-5) /hpf Urine WBC Clumps (None) /hpf Ur Squamous Epith Cells (0-4) /hpf Amorphous Sediment (None) /hpf Urine Bacteria (None) /hpf Hyaline Casts (0-2) /lpf Urine Mucus (None) /hpf 05/09/23 Range/Units 02:08 WBC (3.8-10.6) k/uL RBC (3.80-5.40) m/uL Hgb (11.4-16.0) gm/dL RDW (11.5-15.5) % Plt Count (150-450) k/uL Neutrophils # (1.3-7.7) k/uL Lymphocytes # (1.0-4.8) k/uL Sodium 132 L (137-145) mmol/L Potassium 5.8 H (3.5-5.1) mmol/L BUN 78 H (7-17) mg/dL Creatinine 2.65 H (0.52-1.04) mg/dL POC Glucose (mg/dL) (70-110) mg/dL Calcium 6.9 L (8.4-10.2) mg/dL Ammonia (<30) umol/L C-Reactive Protein (<1.0) mg/dL Procalcitonin (0.02-0.09) ng/mL TSH (0.465-4.680) mIU/L Cortisol (3.1-22.4) UG/DL Urine Appearance (Clear) Urine Protein (Negative) Urine Blood (Negative) Urine Bilirubin (Negative) Ur Leukocyte Esterase (Negative) Urine RBC (0-5) /hpf Urine WBC (0-5) /hpf Urine WBC Clumps (None) /hpf Ur Squamous Epith Cells (0-4) /hpf Amorphous Sediment (None) /hpf Urine Bacteria (None) /hpf Hyaline Casts (0-2) /lpf Urine Mucus (None) /hpf Microbiology - Last 24 Hours (Table) 05/08/23 17:30 Gram Stain - Preliminary Mouth Assessment and Plan Plan: Assessment: 1. Acute kidney injury secondary to ATN secondary to septic shock. Creatinine 1.19 on admission and peaked at 3.07 this admission. 2.65 today. Left kidney is small. No hydronephrosis noted. 2. Septic shock on Levophed. Concern for UTI versus dental abscess. 3. Hyperkalemia secondary to acute kidney injury and LR. 4. Volume overload. 5. Hypervolemic hyponatremia. 6. Non-ST elevated myocardial infarction. Plan: Stop LR. Lasix 60 mg IV once today. Status post IV insulin with D50 this morning. Wean vasopressors. Follow-up repeat potassium level. Avoid nephrotoxins. Continue to assess daily for need for renal replacement therapy.
[2023-05-09 10:17] LABS: Glucose,Whole Blood 73 mg/dL (70-110)
[2023-05-09] MEDS: FUROSEMIDE 10 MG/ML 10 ML VIAL IV STA (10:22)
--- NOTE | 2023-05-09 10:22 | P.PN ---
Subjective Progress Note Date: 05/09/23 Hospital Course: 82-year-old female with history of liver cirrhosis, CAD status post stent, chronic systolic heart failure, hypertension, dyslipidemia, chronic pancytopenia, ITP presented with chest pain and shortness of breath. On initial presentation, patient was tachycardic, tachypneic, saturating well on room air. EKG showed sinus tachycardia with known left bundle branch block. Chest x-ray showed pulmonary vascular interstitial markings. 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 CBC showing pancytopenia with WBC count of 1.6, hemoglobin 11.3, platelet count of 41. Coagulation profile showing elevated INR of 1.3. BMP showing hyponatremia with sodium of 131, elevated BUN of 33, creatinine 1.19, GFR 43. Liver profile showing elevated total bili of 4.2, AST of 44, ALT of 20, and alkaline phosphatase of 282. Troponin 0.064 and proBNP 2360. Troponin continues to uptrend. Cardiology was consulted. No invasive procedures recommended by cardiology. Echocardiogram showed mild LV systolic function decrease, severely enlarged left atrium. Orthopedic surgery was consulted, not recommending any interventions. Patient did get slightly more encephalopathic, and had low blood sugars, previous urinalysis was positive, urine culture was positive for ESBL. Repeat urinalysis shows a dirty sample. However, ID is consulted, patient is on IV antibiotics, ertapenem. Patient also developed oliguric SOCOTER. CT face showed neck mass of 3 x 4 cm and right maxillary inflammatory changes. ENT and maxillofacial surgery were consulted. ENT recommended IR consult for consideration of needle biopsy of left neck mass, however, upon review, r adiology deferred this procedure due to having stable imaging/finding of left neck mass/thyroid mass from prior imaging. Patient was however scheduled for dental extraction with abscess drainage of the right mandible. Patient had been transitioned to the ICU on 05/07 for septic shock requiring vasopressor, and had a requirement of 0.14. Subjective: Pts pressor requirement is increased to 0.14 from 0.09 in the last 24 hours. She is scheduled for dental extraction with abscess drainage of the right. She will receive 60 mg of IV Lasix and have fluid switched to bicarb Vitals Signs Reviewed. General: generally weak, Derm: Warm, dry, jaundice Head: Atraumatic, normocephalic, symmetric Eyes: EOMI, no lid lag, scleral icterus Mouth: No lip lesion, mucus membranes moist Cardiovascular: S1S2 reg, no murmur Lungs: no accessory muscle use Abdominal: Soft, TTP diffusely Ext: No gross muscle atrophy, bilateral edema, no contractures Neuro: CN II-XI grossly intact, no focal neuro deficits, allodynia of plantar feet b/l Psych: Alert, oriented x 1 Assessment and Plan: Patient is severely ill, prognosis guarded Acute metabolic encephalopathy - septic and hepatic Septic Shock, unclear source Questionable urinary tract infection, prior cultures growing ESBL - other sources are possible: maxillary inflammation - continue ertapenem - ID following - pulmonology following for ICU requirement and shock status requiring pressors - continue levophed 0.14 Oliguric SCOOTER Hyponatremia -nephrology following -family is okay with [facility] if needed -hourly strict UOP measurement -Bicarb switched to LR -Cr is 2.63 today, UOP is 10-20cc/hr continue midodrine 10 AC 3 times daily Liver cirrhosis Pancytopenia Hyperbilirubinemia ID is following, patient currently on ertapenem 0.5 g IV daily Nephrology also consulted, appreciate recs - Unclear why patient is on primidone, however due to encephalopathy, decrease dose to 25 daily - Lactulose 200 g per rectum, complete swallow evaluation and then switch to p.o. if possible NSTEMI, likely type II New onset Afib with controlled ventricular rate History of CAD status post stent -Cardiology recommending medical management for NSTEMI -Continue aspirin 81 mg, on pravastatin 80 mg -On amiodarone 200 twice daily for rate control, no anticoagulation due to thrombocytopenia -Continue home metoprolol 12.5 daily -05/08: oral meds on hold while swallow study being done Compression fracture of T7 and T8 Acute left posterior eighth rib fracture Fracture of the coronoid process of the left scapula -Orthopedic surgery signed off, patient not a surgical candidate Thyroid mass -Outpatient follow-up DVT ppx: Patient is thrombocytopenic Code status: Full code Anticipated discharge place: Pending clinical course Anticipated discharge time: Pending clinical course Objective - Vital Signs Vital signs: Vital Signs Temp 97.3 F L 05/09/23 08:00 Pulse 89 05/09/23 09:15 Resp 13 05/09/23 09:15 BP 112/42 05/09/23 09:15 Pulse Ox 97 05/09/23 09:15 FiO2 Intake & Output 05/08/23 05/09/23 05/09/23 18:59 06:59 18:59 Intake Total 1585.898 951.877 236.091 Output Total 150 195 80 Balance 1435.898 756.877 156.091 Weight 94.9 kg Intake: IV 90 110 130 .9 kvo 90 110 30 Lactated Ringers 1,000 ml 50 @ 50 mls/hr IV .Q20H [facility] Rx#:[id number] Sodium Chloride 0.9% 1, 50 000 ml @ 50 mls/hr IV . Q20H [facility] Rx#:[id number] Intake, IV Titration 1495.898 841.877 106.091 Amount ACETAMINOPHEN IV (For NPO 100 ) 1,000 mg In Empty Bag 1 bag @ 400 mls/hr IVPB Q6HR PRN Rx#:[id number] Dextrose 5% in Water 1, 160 000 ml @ 80 mls/hr IV . [id number] [facility] with Sodium Bicarb (1 Meq/ml) 150 ml Rx#:[id number] Lactated Ringers 1,000 ml 1000 550 50 @ 50 mls/hr IV .Q20H [facility] Rx#:[id number] Norepinephrine 4 mg In 235.898 291.877 56.091 Sodium Chloride 0.9% 250 ml @ 0.03 MCG/KG/MIN 6.74 mls/hr IV .Q24H [facility] Rx#: [id number] Output: Urine 150 195 80 Other: Voiding Method Indwelling Catheter Indwelling Catheter Indwelling Catheter # Bowel Movements 1 - Labs CBC & Chem 7: 05/09/23 02:08 05/09/23 02:08 Labs: Abnormal Lab Results - Last 24 Hours (Table) 05/08/23 05/08/23 05/08/23 Range/Units 11:50 11:50 11:57 WBC (3.8-10.6) k/uL RBC (3.80-5.40) m/uL Hgb (11.4-16.0) gm/dL RDW (11.5-15.5) % Plt Count (150-450) k/uL Neutrophils # (1.3-7.7) k/uL Lymphocytes # (1.0-4.8) k/uL Sodium (137-145) mmol/L Potassium (3.5-5.1) mmol/L BUN (7-17) mg/dL Creatinine (0.52-1.04) mg/dL POC Glucose (mg/dL) 119 H (70-110) mg/dL Calcium (8.4-10.2) mg/dL Ammonia 43 H (<30) umol/L C-Reactive Protein (<1.0) mg/dL Procalcitonin (0.02-0.09) ng/mL TSH 5.980 H (0.465-4.680) mIU/L Cortisol 26.2 H (3.1-22.4) UG/DL Urine Appearance (Clear) Urine Protein (Negative) Urine Blood (Negative) Urine Bilirubin (Negative) Ur Leukocyte Esterase (Negative) Urine RBC (0-5) /hpf Urine WBC (0-5) /hpf Urine WBC Clumps (None) /hpf Ur Squamous Epith Cells (0-4) /hpf Amorphous Sediment (None) /hpf Urine Bacteria (None) /hpf Hyaline Casts (0-2) /lpf Urine Mucus (None) /hpf 05/08/23 05/08/23 05/08/23 Range/Units 13:50 14:02 14:02 WBC (3.8-10.6) k/uL RBC (3.80-5.40) m/uL Hgb (11.4-16.0) gm/dL RDW (11.5-15.5) % Plt Count (150-450) k/uL Neutrophils # (1.3-7.7) k/uL Lymphocytes # (1.0-4.8) k/uL Sodium (137-145) mmol/L Potassium (3.5-5.1) mmol/L BUN (7-17) mg/dL Creatinine (0.52-1.04) mg/dL POC Glucose (mg/dL) (70-110) mg/dL Calcium (8.4-10.2) mg/dL Ammonia (<30) umol/L C-Reactive Protein 8.6 H (<1.0) mg/dL Procalcitonin 2.53 H (0.02-0.09) ng/mL TSH (0.465-4.680) mIU/L Cortisol (3.1-22.4) UG/DL Urine Appearance Turbid H (Clear) Urine Protein 1+ H (Negative) Urine Blood Moderate H (Negative) Urine Bilirubin 1+ H (Negative) Ur Leukocyte Esterase Small H (Negative) Urine RBC 111 H (0-5) /hpf Urine WBC 41 H (0-5) /hpf Urine WBC Clumps Rare H (None) /hpf Ur Squamous Epith Cells 10 H (0-4) /hpf Amorphous Sediment Few H (None) /hpf Urine Bacteria Occasional H (None) /hpf Hyaline Casts 79 H (0-2) /lpf Urine Mucus Rare H (None) /hpf 05/08/23 05/09/23 05/09/23 Range/Units 16:47 00:05 02:08 WBC 11.1 H (3.8-10.6) k/uL RBC 3.42 L (3.80-5.40) m/uL Hgb 11.0 L (11.4-16.0) gm/dL RDW 15.8 H (11.5-15.5) % Plt Count 55 L (150-450) k/uL Neutrophils # 9.2 H (1.3-7.7) k/uL Lymphocytes # 0.7 L (1.0-4.8) k/uL Sodium (137-145) mmol/L Potassium (3.5-5.1) mmol/L BUN (7-17) mg/dL Creatinine (0.52-1.04) mg/dL POC Glucose (mg/dL) 113 H 119 H (70-110) mg/dL Calcium (8.4-10.2) mg/dL Ammonia (<30) umol/L C-Reactive Protein (<1.0) mg/dL Procalcitonin (0.02-0.09) ng/mL TSH (0.465-4.680) mIU/L Cortisol (3.1-22.4) UG/DL Urine Appearance (Clear) Urine Protein (Negative) Urine Blood (Negative) Urine Bilirubin (Negative) Ur Leukocyte Esterase (Negative) Urine RBC (0-5) /hpf Urine WBC (0-5) /hpf Urine WBC Clumps (None) /hpf Ur Squamous Epith Cells (0-4) /hpf Amorphous Sediment (None) /hpf Urine Bacteria (None) /hpf Hyaline Casts (0-2) /lpf Urine Mucus (None) /hpf 05/09/23 Range/Units 02:08 WBC (3.8-10.6) k/uL RBC (3.80-5.40) m/uL Hgb (11.4-16.0) gm/dL RDW (11.5-15.5) % Plt Count (150-450) k/uL Neutrophils # (1.3-7.7) k/uL Lymphocytes # (1.0-4.8) k/uL Sodium 132 L (137-145) mmol/L Potassium 5.8 H (3.5-5.1) mmol/L BUN 78 H (7-17) mg/dL Creatinine 2.65 H (0.52-1.04) mg/dL POC Glucose (mg/dL) (70-110) mg/dL Calcium 6.9 L (8.4-10.2) mg/dL Ammonia (<30) umol/L C-Reactive Protein (<1.0) mg/dL Procalcitonin (0.02-0.09) ng/mL TSH (0.465-4.680) mIU/L Cortisol (3.1-22.4) UG/DL Urine Appearance (Clear) Urine Protein (Negative) Urine Blood (Negative) Urine Bilirubin (Negative) Ur Leukocyte Esterase (Negative) Urine RBC (0-5) /hpf Urine WBC (0-5) /hpf Urine WBC Clumps (None) /hpf Ur Squamous Epith Cells (0-4) /hpf Amorphous Sediment (None) /hpf Urine Bacteria (None) /hpf Hyaline Casts (0-2) /lpf Urine Mucus (None) /hpf Microbiology - Last 24 Hours (Table) 05/08/23 17:30 Gram Stain - Preliminary Mouth
[2023-05-09] MEDS: SODIUM CHLORIDE 0.9% 1,000 ML IV SCH (10:24)
[2023-05-09] MEDS: DEXTROSE 5% IN WATER 1,000 ML with SODIUM BICARB (1 MEQ/ML) 150 ML IV SCH (10:24)
[2023-05-09] MEDS: DEXTROSE 5%-0.9% NACL 1,000 ML IV SCH (11:34)
--- NOTE | 2023-05-09 11:42 | P.PN ---
Subjective Progress Note Date: 05/09/23 Principal diagnosis: Reason for follow-up is leukocytosis and UTI Patient is a 82-year-old female with a past medical history significant for hypertension hyperlipidemia thrombocytopenia cirrhosis of the liver OR osteoarthritis patient was brought into the ER for evaluation of chest pain patient subsequently did have significant worsening of her mentation did have a positive UA concerning for possible component of UTI On today's evaluation that is 05/09/2023,the patient is afebrile patient remains to be lethargic however did have some conversation with the daughter at the bedside and apparently responded appropriately patient is still requiring pressor support to maintain her blood pressure patient is on 2 L nasal cannula oxygen no vomiting or diarrhea has been reported. Patient white count is 11.1 creatinine is 2.65 Objective - Vital Signs Vital signs: Vital Signs Temp 97.3 F L 05/09/23 08:00 Pulse 89 05/09/23 09:15 Resp 13 05/09/23 09:15 BP 112/42 05/09/23 09:15 Pulse Ox 97 05/09/23 09:15 FiO2 Intake & Output 05/08/23 05/09/23 05/09/23 18:59 06:59 18:59 Intake Total 1585.898 951.877 236.091 Output Total 150 195 80 Balance 1435.898 756.877 156.091 Weight 94.9 kg Intake: IV 90 110 130 .9 kvo 90 110 30 Lactated Ringers 1,000 ml 50 @ 50 mls/hr IV .Q20H [facility] Rx#:[id number] Sodium Chloride 0.9% 1, 50 000 ml @ 50 mls/hr IV . Q20H [facility] Rx#:[id number] Intake, IV Titration 1495.898 841.877 106.091 Amount ACETAMINOPHEN IV (For NPO 100 ) 1,000 mg In Empty Bag 1 bag @ 400 mls/hr IVPB Q6HR PRN Rx#:[id number] Dextrose 5% in Water 1, 160 000 ml @ 80 mls/hr IV . [id number] [facility] with Sodium Bicarb (1 Meq/ml) 150 ml Rx#:[id number] Lactated Ringers 1,000 ml 1000 550 50 @ 50 mls/hr IV .Q20H [facility] Rx#:[id number] Norepinephrine 4 mg In 235.898 291.877 56.091 Sodium Chloride 0.9% 250 ml @ 0.03 MCG/KG/MIN 6.74 mls/hr IV .Q24H [facility] Rx#: [id number] Output: Urine 150 195 80 Other: Voiding Method Indwelling Catheter Indwelling Catheter Indwelling Catheter # Bowel Movements 1 - Exam GENERAL DESCRIPTION: An elderly Female lying in bed in no distress HEENT: Patient did have poor dentition to the lower jaw with a significant to the left lower jaw area no swelling induration or tenderness to the neck area was noticed RESPIRATORY SYSTEM: Unlabored breathing , decreased breath sounds at bases HEART: S1 S2 regular rate and rhythm , ABDOMEN: Soft , no tenderness EXTREMITIES: No edema feet - Labs CBC & Chem 7: 05/09/23 02:08 05/09/23 10:48 Labs: Abnormal Lab Results - Last 24 Hours (Table) 05/08/23 05/08/23 05/08/23 Range/Units 11:50 11:50 11:57 WBC (3.8-10.6) k/uL RBC (3.80-5.40) m/uL Hgb (11.4-16.0) gm/dL RDW (11.5-15.5) % Plt Count (150-450) k/uL Neutrophils # (1.3-7.7) k/uL Lymphocytes # (1.0-4.8) k/uL Sodium (137-145) mmol/L Potassium (3.5-5.1) mmol/L BUN (7-17) mg/dL Creatinine (0.52-1.04) mg/dL POC Glucose (mg/dL) 119 H (70-110) mg/dL Calcium (8.4-10.2) mg/dL Ammonia 43 H (<30) umol/L C-Reactive Protein (<1.0) mg/dL Procalcitonin (0.02-0.09) ng/mL TSH 5.980 H (0.465-4.680) mIU/L Cortisol 26.2 H (3.1-22.4) UG/DL Urine Appearance (Clear) Urine Protein (Negative) Urine Blood (Negative) Urine Bilirubin (Negative) Ur Leukocyte Esterase (Negative) Urine RBC (0-5) /hpf Urine WBC (0-5) /hpf Urine WBC Clumps (None) /hpf Ur Squamous Epith Cells (0-4) /hpf Amorphous Sediment (None) /hpf Urine Bacteria (None) /hpf Hyaline Casts (0-2) /lpf Urine Mucus (None) /hpf 05/08/23 05/08/23 05/08/23 Range/Units 13:50 14:02 14:02 WBC (3.8-10.6) k/uL RBC (3.80-5.40) m/uL Hgb (11.4-16.0) gm/dL RDW (11.5-15.5) % Plt Count (150-450) k/uL Neutrophils # (1.3-7.7) k/uL Lymphocytes # (1.0-4.8) k/uL Sodium (137-145) mmol/L Potassium (3.5-5.1) mmol/L BUN (7-17) mg/dL Creatinine (0.52-1.04) mg/dL POC Glucose (mg/dL) (70-110) mg/dL Calcium (8.4-10.2) mg/dL Ammonia (<30) umol/L C-Reactive Protein 8.6 H (<1.0) mg/dL Procalcitonin 2.53 H (0.02-0.09) ng/mL TSH (0.465-4.680) mIU/L Cortisol (3.1-22.4) UG/DL Urine Appearance Turbid H (Clear) Urine Protein 1+ H (Negative) Urine Blood Moderate H (Negative) Urine Bilirubin 1+ H (Negative) Ur Leukocyte Esterase Small H (Negative) Urine RBC 111 H (0-5) /hpf Urine WBC 41 H (0-5) /hpf Urine WBC Clumps Rare H (None) /hpf Ur Squamous Epith Cells 10 H (0-4) /hpf Amorphous Sediment Few H (None) /hpf Urine Bacteria Occasional H (None) /hpf Hyaline Casts 79 H (0-2) /lpf Urine Mucus Rare H (None) /hpf 05/08/23 05/09/23 05/09/23 Range/Units 16:47 00:05 02:08 WBC 11.1 H (3.8-10.6) k/uL RBC 3.42 L (3.80-5.40) m/uL Hgb 11.0 L (11.4-16.0) gm/dL RDW 15.8 H (11.5-15.5) % Plt Count 55 L (150-450) k/uL Neutrophils # 9.2 H (1.3-7.7) k/uL Lymphocytes # 0.7 L (1.0-4.8) k/uL Sodium (137-145) mmol/L Potassium (3.5-5.1) mmol/L BUN (7-17) mg/dL Creatinine (0.52-1.04) mg/dL POC Glucose (mg/dL) 113 H 119 H (70-110) mg/dL Calcium (8.4-10.2) mg/dL Ammonia (<30) umol/L C-Reactive Protein (<1.0) mg/dL Procalcitonin (0.02-0.09) ng/mL TSH (0.465-4.680) mIU/L Cortisol (3.1-22.4) UG/DL Urine Appearance (Clear) Urine Protein (Negative) Urine Blood (Negative) Urine Bilirubin (Negative) Ur Leukocyte Esterase (Negative) Urine RBC (0-5) /hpf Urine WBC (0-5) /hpf Urine WBC Clumps (None) /hpf Ur Squamous Epith Cells (0-4) /hpf Amorphous Sediment (None) /hpf Urine Bacteria (None) /hpf Hyaline Casts (0-2) /lpf Urine Mucus (None) /hpf 05/09/23 Range/Units 02:08 WBC (3.8-10.6) k/uL RBC (3.80-5.40) m/uL Hgb (11.4-16.0) gm/dL RDW (11.5-15.5) % Plt Count (150-450) k/uL Neutrophils # (1.3-7.7) k/uL Lymphocytes # (1.0-4.8) k/uL Sodium 132 L (137-145) mmol/L Potassium 5.8 H (3.5-5.1) mmol/L BUN 78 H (7-17) mg/dL Creatinine 2.65 H (0.52-1.04) mg/dL POC Glucose (mg/dL) (70-110) mg/dL Calcium 6.9 L (8.4-10.2) mg/dL Ammonia (<30) umol/L C-Reactive Protein (<1.0) mg/dL Procalcitonin (0.02-0.09) ng/mL TSH (0.465-4.680) mIU/L Cortisol (3.1-22.4) UG/DL Urine Appearance (Clear) Urine Protein (Negative) Urine Blood (Negative) Urine Bilirubin (Negative) Ur Leukocyte Esterase (Negative) Urine RBC (0-5) /hpf Urine WBC (0-5) /hpf Urine WBC Clumps (None) /hpf Ur Squamous Epith Cells (0-4) /hpf Amorphous Sediment (None) /hpf Urine Bacteria (None) /hpf Hyaline Casts (0-2) /lpf Urine Mucus (None) /hpf Microbiology - Last 24 Hours (Table) 05/08/23 17:30 Gram Stain - Preliminary Mouth Assessment and Plan (1) Leukocytosis Current Visit: Yes Status: Acute Code(s): D72.829 - ELEVATED WHITE BLOOD CELL COUNT, UNSPECIFIED SNOMED Code(s): 431308593 (2) Allergy to multiple antibiotics Current Visit: Yes Status: Acute Code(s): Z88.1 - ALLERGY STATUS TO OTHER ANTIBIOTIC AGENTS SNOMED Code(s): 873033928 (3) Urinary tract infection Current Visit: No Status: Acute Code(s): N39.0 - URINARY TRACT INFECTION, SITE NOT SPECIFIED SNOMED Code(s): 05824062 Plan: 1patient with sepsis, source likely infected tooth and abscess patient has been evaluated by oral surgery and plan is for removal of the infected tooth and culture this afternoon 2-we will continue patient on Invanz while waiting for the culture to finalize antibiotic clinical course closely Daughter at the bedside questions were answered Dictation was produced using Copyteleation software. please excuse any grammatical, word or spelling errors.
[2023-05-09 12:43] LABS: Glucose,Whole Blood 84 mg/dL (70-110)
[2023-05-09] MEDS: LIDOCAINE 2%-EPI 1:100,000 20 ML VIAL SUBMUCOSAL ONE ×3 (15:42→16:23)
[2023-05-09] MEDS ORDERED: KETAMINE HCL IN 0.9 % NACL 50 MG/5 ML SYRINGE ONE (16:15)
[2023-05-09] MEDS: LACTATED RINGERS 1,000 ML IV ONE (16:18)
--- NOTE | 2023-05-09 16:30 | P.PN ---
Subjective Progress Note Date: 05/09/23 Principal diagnosis: Abscess tooth 29 Sepsis Leukocytosis Visited patient and her ICU bed with family at the bedside, patient response to loud verbal commands. Asked patient if her tooth still hurt and she said yes. Her daughter reported the patient was more alert today Her daughter reported the patient was more alert today a and has since gotten less alert in the afternoon perhaps she was tired per the daughter. All in all this is been a better day for her compared to yesterday per the family Objective - Vital Signs Vital signs: Vital Signs Temp 97.8 F 05/09/23 12:00 Pulse 84 05/09/23 15:30 Resp 15 05/09/23 15:30 BP 111/48 05/09/23 15:30 Pulse Ox 100 05/09/23 15:30 FiO2 Intake & Output 05/08/23 05/09/23 05/09/23 18:59 06:59 18:59 Intake Total 1585.898 951.877 617.345 Output Total 150 195 330 Balance 1435.898 756.877 287.345 Weight 94.9 kg 94.9 kg Intake: IV 90 110 430 .9 kvo 90 110 80 Lactated Ringers 1,000 ml 50 @ 50 mls/hr IV .Q20H [facility] Rx#:[id number] Sodium Chloride 0.9% 1, 300 000 ml @ 50 mls/hr IV . Q20H [facility] Rx#:[id number] Intake, IV Titration 1495.898 841.877 187.345 Amount ACETAMINOPHEN IV (For NPO 100 ) 1,000 mg In Empty Bag 1 bag @ 400 mls/hr IVPB Q6HR PRN Rx#:[id number] Dextrose 5% in Water 1, 160 000 ml @ 80 mls/hr IV . [id number] [facility] with Sodium Bicarb (1 Meq/ml) 150 ml Rx#:[id number] Lactated Ringers 1,000 ml 1000 550 50 @ 50 mls/hr IV .Q20H [facility] Rx#:[id number] Norepinephrine 4 mg In 235.898 291.877 137.345 Sodium Chloride 0.9% 250 ml @ 0.03 MCG/KG/MIN 6.74 mls/hr IV .Q24H [facility] Rx#: [id number] Output: Urine 150 195 330 Other: Voiding Method Indwelling Catheter Indwelling Catheter Indwelling Catheter # Bowel Movements 1 - Exam Patient's mouth open and very dry . Spontaneous bloody pus from the area of tooth #29 sulcus. No vestibular swelling noted lymphadenopathy noted. - Labs CBC & Chem 7: 05/09/23 02:08 05/09/23 10:48 Labs: Abnormal Lab Results - Last 24 Hours (Table) 05/08/23 05/08/23 05/08/23 Range/Units 11:50 14:02 16:47 WBC (3.8-10.6) k/uL RBC (3.80-5.40) m/uL Hgb (11.4-16.0) gm/dL RDW (11.5-15.5) % Plt Count (150-450) k/uL Neutrophils # (1.3-7.7) k/uL Lymphocytes # (1.0-4.8) k/uL Sodium (137-145) mmol/L Potassium (3.5-5.1) mmol/L BUN (7-17) mg/dL Creatinine (0.52-1.04) mg/dL POC Glucose (mg/dL) 113 H (70-110) mg/dL Calcium (8.4-10.2) mg/dL Procalcitonin 2.53 H (0.02-0.09) ng/mL Cortisol 26.2 H (3.1-22.4) UG/DL 05/09/23 05/09/23 05/09/23 Range/Units 00:05 02:08 02:08 WBC 11.1 H (3.8-10.6) k/uL RBC 3.42 L (3.80-5.40) m/uL Hgb 11.0 L (11.4-16.0) gm/dL RDW 15.8 H (11.5-15.5) % Plt Count 55 L (150-450) k/uL Neutrophils # 9.2 H (1.3-7.7) k/uL Lymphocytes # 0.7 L (1.0-4.8) k/uL Sodium 132 L (137-145) mmol/L Potassium 5.8 H (3.5-5.1) mmol/L BUN 78 H (7-17) mg/dL Creatinine 2.65 H (0.52-1.04) mg/dL POC Glucose (mg/dL) 119 H (70-110) mg/dL Calcium 6.9 L (8.4-10.2) mg/dL Procalcitonin (0.02-0.09) ng/mL Cortisol (3.1-22.4) UG/DL Microbiology - Last 24 Hours (Table) 05/08/23 17:30 Gram Stain - Preliminary Mouth Assessment and Plan Assessment: Abscess of right mandible associated with tooth #29 with limited inflamitory response. Plan: Discussed with patient and daughter and grandson about how this is unlikely her only problem but the infected tooth could possibly be giving her some problems with her sepsis and should be removed could possibly be giving her some problems with her sepsis and should be removed. Family very concerned about risk of anesthesia and I stated we would attempt as a local without any anesthesia and risk of anesthesia and I stated we would accept as a local without any anesthesia and feel that this is a possibility to have this done possibility to have this done. So discussed the plan may change depending on patient's reaction with with her vital signs and/or her cognitive ability Time with Patient: Greater than 30 (Discussion with family the phone as well as afteroon)
[2023-05-09 16:52] LABS: Glucose,Whole Blood 93 mg/dL (70-110)
--- NOTE | 2023-05-09 16:54 | P.OP ---
Date of Procedure: 05/09/23 Preoperative Diagnosis: Dental abscess lower right associated with tooth #29 Postoperative Diagnosis: Dental abscess tooth #29 Procedure(s) Performed: Surgical extraction tooth #29 as well as cultures Anesthesia: local Surgeon: Orlando Fine Estimated Blood Loss (ml): 5 IV fluids (ml): 0 Urine output (ml): 0 Pathology: other (anerobic and aerobic cultures) Condition: critical Disposition: ICU Indications for Procedure: This ASA IV patient was known to me yesterday to have dental abscess with sepsis. a dental abscess with sepsis. He shouldn't has been progressively declining since her admission on April 30. The possibility of the tooth being part of the problem the possibility of the tooth being part of the problem is present. Decision to have the patient Decision to have patient and operating room to remove tooth under local anesthetic was made in conjunction with Dr. Huynh and as well as Dr. Ibrahim. Discussed with the family about removing the tooth under local anesthesia and how there is some and how there is some high risk to the patient due to her ASA status hi due to her ASA status but this is the best compromise given her compromised condition. Risk, Benifits and Alternatives were Discussed with patient, daughter and . Consent obtained. Operative Findings: none Description of Procedure: brought to OR in ICU bed sitting up. NC at 2 L with good O2 sats. aggetated with vital signs and EKG leads being placed. tolerated Local of 2% lido with Epi at 6ML. some aggetation but no worse than when moving her in the bed. Vital signs stable. during procedure. waited 5 minuts for lidocaine to have effect and tested gums with probe and not response. Full thickness flap and buccal bone removal with drainge of 4 cc of bloody pus. removed tooth with forcep and rised socket. placed one 4-0 gut suture to close flap. removed throat pack and no debre in pharynx. hemostasis acheved with gauze
[2023-05-09 20:27] LABS: Glucose,Whole Blood 96 mg/dL (70-110)
--- NOTE | 2023-05-09 21:19 | PN ---
PROGRESS NOTE The patient was consulted for left neck mass. This was felt to be related to thyroid. Dr. Lee in Radiology checked her CT and actually compared it to a CT from 2021 and feels that this is thyroid related and unchanged from 202 and did not feel that she needed needle aspiration. This can be followed up by her primary care physician as outpatient with serial ultrasounds and if there is still further concern with ultrasound as an outpatient, then she could have a needle aspiration/needle biopsy as outpatient under ultrasound guidance. MMODL / IJN: [id number] /
[2023-05-09] MEDS: ACETAMINOPHEN IV (For NPO) 1,000 MG in EMPTY BAG 1 BAG IVPB PRN (21:45)
[2023-05-09 23:36] LABS: Glucose,Whole Blood 116 mg/dL (70-110)
[2023-05-10 04:32] LABS: Basophils % (A) 0 %; Eosinophils # (A) 0.1 k/uL (0-0.7); Eosinophils % (A) 1 %; HCT 32.4 % (34.0-46.0); HGB 10.4 gm/dL (11.4-16.0); Hypochromasia Slight; Lymphocytes # (A) 0.6 k/uL (1.0-4.8); Lymphocytes % (A) 6 %; MCH 31.9 pg (25.0-35.0); MCHC 32.2 g/dL (31.0-37.0); MCV 99.2 fL (80.0-100.0); Macrocytosis Slight; Mean Platelet Volume 9.4; Monocytes # (A) 0.7 k/uL (0-1.0); Monocytes % (A) 7 %; Neutrophils # (A) 8.4 k/uL (1.3-7.7); Neutrophils % (A) 82 %; Poikilocytosis Moderate; RBC 3.27 m/uL (3.80-5.40); RDW 15.9 % (11.5-15.5); WBC 10.2 k/uL (3.8-10.6)
[2023-05-10 04:40] LABS: Platelet Count 85 k/uL (150-450)
[2023-05-10 04:50] LABS: African American GFR (CKD) 20 (>60 ml/min/1.73 sqM); Anion Gap 6 mmol/L; Blood Urea Nitrogen 78 mg/dL (7-17); Calcium 7.3 mg/dL (8.4-10.2); Carbon Dioxide 26 mmol/L (22-30); Chloride 101 mmol/L (98-107); Glucose 81 mg/dL (74-99); Magnesium 2.7 mg/dL (1.6-2.3); Non-African American GFR(CKD) 18 (>60 ml/min/1.73 sqM); Potassium 5.2 mmol/L (3.5-5.1); Sodium 133 mmol/L (137-145)
--- NOTE | 2023-05-10 07:36 | P.PN ---
Progress Note - Text Progress Note Date: 05/10/23 S: Patient awake resting in bed much more alert today quickly answers questions. Concerned about where her glasses and hearing aids are. Helped her get her glasses on and she recalled that she still needed hearing aids. This demonstrates a marked improvement from yesterday preoperative where painful stimuli was the only thing that would cause her to shift her open her eyes. Patient reports that her jaw does not hurt today. I told her we removed her tooth yesterday and she said she was grateful and asked if it was the "pointy one", which it was. o: mouth opening within normal limits extraction site clean dry and intact. No discharge noted. Suture still in place. Vestibular swelling was not appreciated. No lymphadenopathy noted. A/P patient is markedly improved from yesterday, subjectively. She is doing very well from a dental postop surgical standpoint. Recommend continue soft diet. Also try to avoid straws but if the patient will not tolerate liquids without a straw based on her position straws would be acceptable.
--- NOTE | 2023-05-10 08:39 | P.PN ---
Subjective Progress Note Date: 05/10/23 This is an 82-year-old female patient with a history of liver cirrhosis, pancytopenia, coronary artery disease with previous stent placement, compression fracture of T7 and T8, acute left posterior eighth rib fracture, thyroid mass, new onset atrial fibrillation and non-ST segment elevation myocardial in farction. She had been admitted back on 04/29/2023 with chest pain and shortness of breath. Echocardiogram revealed impaired left ventricular systolic function with ejection fraction 45%. She was being cared for on the selective care unit. Last evening at a approximately 1145 and rapid response team was called due to hypotension with blood pressure 70 over 40s. She received 100 mL of fluid res uscitation and was transferred to the intensive care unit and initiated on norepinephrine. She is seen today in consultation. She is lethargic. Minimally responsive. She had been calling out in pain earlier. When she was repositioned she settled down. This is felt to be secondary to her compression fractures and rib fractures. He does have a stage II decubitus ulcer. She also has severe suspected neuropathy of the bilateral lower extremities. She is maintaining good O2 saturation in the mid 90s on 2 L/min per nasal cannula. 0.08 mcg/kg/min. She has normal staying at 80 MLS per hour. White count 11.9. Platelets 55,000. Sodium 130. Potassium 4.9. Bicarb 33. BUN 74. Creatinine 2.78. Glucose 137. Urine culture reveals no growth. Currently on ertapenem. X-ray reveals cardiomegaly with mild central vascular congestion and interstitial opacities suggesting edema. Small to moderate bibasilar pleural effusions with adjacent atelectasis. On today's evaluation of 05/09/2023, the patient is being seen for a follow-up. As mentioned, the patient was transferred to the intensive care unit yesterday because of hypotension. She has multiple medical problems including coronary artery disease and previous coronary intervention and stenting and the patient also has liver cirrhosis, and she did encounter a new onset atrial fibrillation. At the same time, the patient is suspected to be septic. The patient has been treated with IV fluids. The patient continues to be on pressors and the patient is currently on norepinephrine running 0.14 mcg/kg/min. IV fluids are running in the rate of 50 cc an hour of normal saline. The patient is currently on IV Invanz. The white cell count today is 11.1. Hemoglobin is at 11 and a platelet count is at 55. Note that the patient has chronic thrombocytopenia related to her chronic liver disease. She also had an acute kidney injury and the creatinine peaked at 3 and currently is downtrending down to 2.65. Potassium level today is at 5.8 with a sodium level of 132. LFTs are abnormal with an alkaline phosphatase of 314, AST of 51 and ALT of 21. Her procalcitonin level was at 2.53 and her free T4 was 1.36 with a TSH of 5.9. UA was abnormal suspicious for an underlying urinary tract infection and cultures are still pen ding for now. Meanwhile, the CAT scan of the abdomen and pelvis that was obtained on 05/04/2023 showed no evidence of any acute intra-abdominal process. Nodular contour of the liver was suggestive of liver cirrhosis and the patient had signs of portal hypertension and cardiomegaly and pulm vascular congestion. The CAT scan of the face that was done on 05/04/2023 showed a soft tissue masslike area in the inferior left neck measuring 47 x 36 mm in size and inflammatory changes along the right mandible without an organizing collection. A head and neck abscess cannot be completely ruled out at this point in time. Neurologically, the patient is encephalopathic. She has episodes of crying and yelling and she remains altered. Her the serum ammonia level was 17. The patient remains on lactulose which is unfortunately being given through the rectal source which is causing significant amount of contamination. At the same time, cardiac rhythm is currently controlled and she remains in atrial fibrillation. She remains on amiodarone 200 mg p.o. twice a day. The Toprol has been placed on hold based on her underlying hypotension. Her echocardiogram from 04/30/2023 showed a ejection fraction of 45%, mild RV dilatation, mild mitral regurgitation, no other significant abnormalities noted. On today's evaluation of 05/10/2023, the patient is being seen for a follow-up. The patient is in the intensive care unit for sepsis and hypotension. Note that the patient underwent an evaluation by the oral surgeon yesterday and the patient was found to have a dental abscess tooth #29 and surgical extraction of the tooth was done and cultures were sent. At the same time, we are suspecting an underlying urine tract infection as another source of sepsis the patient and the patient is currently on IV Invanz as the patient has had previous ESBL producing E. coli in her urine based on the culture that was obtained on 04/26/2023. The patient remains on pressors. She is on norepinephrine running at 0.15 mcg/kg/min. IV fluids are in the form of D5.9 at the rate of 50 cc an hour. Urine output is in order of 30 cc an hour and there is also interval improvement of creatinine which is down to 2.4 with a BUN of 78. Sodium levels at 133 with a potassium level of 5.2. The white cell count is at 10.2 with a hemoglobin of 10.4 and a platelet count of 85. Note that the patient has chronic thrombocytopenia related to her chronic liver disease. She is arousable. She is awake. She is on oxygen at 2 L with a pulse ox of 96%. Objective - Vital Signs Vital signs: Vital Signs Temp 97.5 F L 05/10/23 04:00 Pulse 99 05/10/23 07:00 Resp 18 05/10/23 07:00 BP 118/42 05/10/23 07:00 Pulse Ox 92 L 05/10/23 07:00 FiO2 Intake & Output 05/09/23 05/10/23 05/10/23 18:59 06:59 18:59 Intake Total 541.437 8323.188 144.247 Output Total 575 660 30 Balance 282.345 851.188 114.247 Weight 94.9 kg 97.8 kg Intake: IV 670 610 50 .9 kvo 120 10 Dextrose 5%-0.9% NaCl 1, 550 50 000 ml @ 50 mls/hr IV . Q20H RONI Rx#:[id number] Lactated Ringers 1,000 ml 50 @ 50 mls/hr IV .Q20H RONI Rx#:[id number] Sodium Chloride 0.9% 1, 500 50 000 ml @ 50 mls/hr IV . Q20H RONI Rx#:[id number] Intake, IV Titration 187.345 901.188 94.247 Amount ACETAMINOPHEN IV (For NPO 100 ) 1,000 mg In Empty Bag 1 bag @ 400 mls/hr IVPB Q6HR PRN Rx#:[id number] Dextrose 5%-0.9% NaCl 1, 390 000 ml @ 50 mls/hr IV . Q20H RONI Rx#:[id number] Lactated Ringers 1,000 ml 50 @ 50 mls/hr IV .Q20H RONI Rx#:[id number] Norepinephrine 4 mg In 137.345 411.188 94.247 Sodium Chloride 0.9% 250 ml @ 0.03 MCG/KG/MIN 6.74 mls/hr IV .Q24H RONI Rx#: [id number] Output: Urine 570 660 30 Estimated Blood Loss 5 Other: Voiding Method Indwelling Catheter Indwelling Catheter # Bowel Movements 1 - Exam GENERAL EXAM: Arousable, cries out in pain, then drifts off easily 82-year-old female, on 2 L nasal cannula, currently in no apparent distress. The patient is lethargic and encephalopathic. She is able to answer some few questions. No significant agitation at this point in time. HEAD: Normocephalic. EYES: Normal reaction of pupils, equal size. NOSE: Clear with pink turbinates. THROAT: No erythema or exudates. Unable to feel any collection in her mandibular area or neck area to suggest any abscess or masses. She does have however very poor dental condition with multiple decayed teeth and several teeth are missing. The incisors in the lower mandible are rotten and broken and decayed and the gum is pale with occasional areas of patchy redness. Note that the patient had an extraction of tooth #29 and the stitches are in place NECK: No masses, no JVD. CHEST: No chest wall deformity. LUNGS: Equal air entry with bibasilar crackles. CVS: S1 and S2 normal with no audible murmur, regular rhythm. ABDOMEN: No hepatosplenomegaly, normal bowel sounds, no guarding or rigidity. SPINE: No scoliosis or deformity SKIN: Stage II coccyx ulcer CENTRAL NERVOUS SYSTEM: Brief but nonfocal, tone is normal in all 4 extremities. EXTREMITIES: There is 2+ peripheral edema. No clubbing, no cyanosis. Peripheral pulses are intact. - Labs CBC & Chem 7: 05/10/23 03:55 05/10/23 03:55 Labs: Abnormal Lab Results - Last 24 Hours (Table) 05/09/23 05/10/23 05/10/23 Range/Units 23:33 03:55 03:55 RBC 3.27 L (3.80-5.40) m/uL Hgb 10.4 L (11.4-16.0) gm/dL Hct 32.4 L (34.0-46.0) % RDW 15.9 H (11.5-15.5) % Plt Count 85 L D (150-450) k/uL Neutrophils # 8.4 H (1.3-7.7) k/uL Lymphocytes # 0.6 L (1.0-4.8) k/uL Sodium 133 L (137-145) mmol/L Potassium 5.2 H (3.5-5.1) mmol/L BUN 78 H (7-17) mg/dL Creatinine 2.48 H (0.52-1.04) mg/dL POC Glucose (mg/dL) 116 H (70-110) mg/dL Calcium 7.3 L (8.4-10.2) mg/dL Magnesium 2.7 H (1.6-2.3) mg/dL Microbiology - Last 24 Hours (Table) 05/08/23 14:06 Blood Culture - Preliminary Blood 05/08/23 13:50 Urine Culture - Final Urine,Voided 05/08/23 17:30 Gram Stain - Preliminary Mouth Assessment and Plan Plan: Hypotension requiring pressor support secondary to sepsis of unclear etiology, possible dental abscess, questionable urinary tract infection with previous cultures of ESBL the patient currently is on norepinephrine running at 0.15 mcg/kg/min and the patient is also being gently hydrated with IV fluids and she is currently on T3jiphijw saline at rate of 50 cc an hour. She is still pressor dependent. Echocardiogram that was done on 04/30/2023 showed an ejection fraction of 45% and the patient does not have any significant valvular abnormalities. Awaiting further cultures. Blood cultures are still pending. Urine cultures are still pending. Procalcitonin level is elevated could be related to her acute kidney injury. No significant change in her pressor requirement since yesterday. Patient has chronic gross decay of all remaining lower teeth. Appears to have spontaneous drainage of pus emanating from the sulcus of tooth #29 which was cultured. The patient is status post extraction of tooth #[address] Fine and cultures were also sent. Altered mental status secondary to above, multifactorial, partly related to chronic liver disease and encephalopathy related to sepsis cannot be completely excluded. Small bilateral pleural effusion right more than left Acute hypoxic respiratory failure currently on 2 L of oxygen nasal cannula Acute kidney injury secondary to above, creatinine is improving and the creatinine is down to 2.48 and the patient is nonoliguric at this point Acute hyperkalemia with a potassium level of 5.2 None anion gap metabolic acidosis, improved and serum bicarb is at 26 Acute pain secondary to compression fractures of T7 and T8 and acute left posterior eighth rib fracture Neuropathy Stage II decubitus ulcer History of liver cirrhosis Pancytopenia Non-ST segment elevation myocardial infarction New onset atrial fibrillation with controlled ventricular response 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 Plan: IV fluids with D5 normal saline at rate of 50 Continue pressors Monitor potassium level Wean off pressors if possible keeping a mean arterial pressure above 60 Continue IV Invanz Pending further cultures and the patient had extraction of tooth #29 Monitor the white count Monitor mental status Do a swallow evaluation and switch this patient to oral lactulose as long as she is able to swallow properly We will continue to follow and make further recommendations based on her clinical status Condition is critical in this evaluation with a more than 30 minutes. Time with Patient: Greater than 30
[2023-05-10] MEDS: FUROSEMIDE 10 MG/ML 10 ML VIAL IV STA (09:49)
[2023-05-10] MEDS: ASPIRIN 81 MG PO SCH (10:26)
--- NOTE | 2023-05-10 10:39 | P.PN ---
Subjective Patient is seen in follow-up for acute kidney injury. Renal function better. Urine output 40 to 50 cc an hour. On Levophed. Potassium 5.2. On normal saline. Vital signs are stable. On Levophed. General: No acute distress. HEENT: Head exam is unremarkable. On nasal cannula. LUNGS: No audible rhonchi or wheezes. HEART: Rate and Rhythm are regular. ABDOMEN: Nontender. EXTREMITITES: 2+ edema. Objective - Vital Signs Vital signs: Vital Signs Temp 97.5 F L 05/10/23 04:00 Pulse 99 05/10/23 07:00 Resp 18 05/10/23 07:00 BP 118/42 05/10/23 07:00 Pulse Ox 96 05/10/23 08:32 FiO2 Intake & Output 05/09/23 05/10/23 05/10/23 18:59 06:59 18:59 Intake Total 647.968 6602.188 209.962 Output Total 575 660 30 Balance 282.345 851.188 179.962 Weight 94.9 kg 97.8 kg Intake: IV 670 610 50 .9 kvo 120 10 Dextrose 5%-0.9% NaCl 1, 550 50 000 ml @ 50 mls/hr IV . Q20H RONI Rx#:[id number] Lactated Ringers 1,000 ml 50 @ 50 mls/hr IV .Q20H RONI Rx#:[id number] Sodium Chloride 0.9% 1, 500 50 000 ml @ 50 mls/hr IV . Q20H RONI Rx#:[id number] Intake, IV Titration 187.345 901.188 159.962 Amount ACETAMINOPHEN IV (For NPO 100 ) 1,000 mg In Empty Bag 1 bag @ 400 mls/hr IVPB Q6HR PRN Rx#:[id number] Dextrose 5%-0.9% NaCl 1, 390 000 ml @ 50 mls/hr IV . Q20H RONI Rx#:[id number] Lactated Ringers 1,000 ml 50 @ 50 mls/hr IV .Q20H RONI Rx#:[id number] Norepinephrine 4 mg In 137.345 411.188 159.962 Sodium Chloride 0.9% 250 ml @ 0.03 MCG/KG/MIN 6.74 mls/hr IV .Q24H RONI Rx#: [id number] Output: Urine 570 660 30 Estimated Blood Loss 5 Other: Voiding Method Indwelling Catheter Indwelling Catheter # Bowel Movements 1 - Labs CBC & Chem 7: 05/10/23 03:55 05/10/23 03:55 Labs: Abnormal Lab Results - Last 24 Hours (Table) 05/09/23 05/10/23 05/10/23 Range/Units 23:33 03:55 03:55 RBC 3.27 L (3.80-5.40) m/uL Hgb 10.4 L (11.4-16.0) gm/dL Hct 32.4 L (34.0-46.0) % RDW 15.9 H (11.5-15.5) % Plt Count 85 L D (150-450) k/uL Neutrophils # 8.4 H (1.3-7.7) k/uL Lymphocytes # 0.6 L (1.0-4.8) k/uL Sodium 133 L (137-145) mmol/L Potassium 5.2 H (3.5-5.1) mmol/L BUN 78 H (7-17) mg/dL Creatinine 2.48 H (0.52-1.04) mg/dL POC Glucose (mg/dL) 116 H (70-110) mg/dL Calcium 7.3 L (8.4-10.2) mg/dL Magnesium 2.7 H (1.6-2.3) mg/dL Microbiology - Last 24 Hours (Table) 05/09/23 16:43 Gram Stain - Preliminary Mandible - Right 05/08/23 14:06 Blood Culture - Preliminary Blood 05/08/23 13:50 Urine Culture - Final Urine,Voided 05/08/23 17:30 Gram Stain - Preliminary Mouth Assessment and Plan Plan: Assessment: 1. Acute kidney injury secondary to ATN secondary to septic shock. Creatinine 1.19 on admission and peaked at 3.07 this admission. 2.48 today. Left kidney is small. No hydronephrosis noted. 2. Septic shock on Levophed. Concern for UTI versus dental abscess. 3. Hyperkalemia secondary to acute kidney injury and LR. Better. 4. Volume overload. 5. Hypervolemic hyponatremia. Better. 6. Non-ST elevated myocardial infarction. Plan: Repeat Lasix 60 mg IV once today. Wean vasopressors. Avoid nephrotoxins. Stop magnesium oxide. Maintain midodrine. Hold for systolic blood pressure greater than 110. Continue to assess daily for need for renal replacement therapy. No urgency at this time.
[2023-05-10 11:58] LABS: Glucose,Whole Blood 140 mg/dL (70-110)
--- NOTE | 2023-05-10 13:40 | P.PN ---
Subjective Progress Note Date: 05/10/23 Hospital Course: 82-year-old female with history of liver cirrhosis, CAD status post stent, chronic systolic heart failure, hypertension, dyslipidemia, chronic pancytopenia, ITP presented with chest pain and shortness of breath. On initial presentation, patient was tachycardic, tachypneic, saturating well on room air. EKG showed sinus tachycardia with known left bundle branch block. Chest x-ray showed pulmonary vascular interstitial markings. 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 CBC showing pancytopenia with WBC count of 1.6, hemoglobin 11.3, platelet count of 41. Coagulation profile showing elevated INR of 1.3. BMP showing hyponatremia with sodium of 131, elevated BUN of 33, creatinine 1.19, GFR 43. Liver profile showing elevated total bili of 4.2, AST of 44, ALT of 20, and alkaline phosphatase of 282. Troponin 0.064 and proBNP 2360. Troponin continues to uptrend. Cardiology was consulted. No invasive procedures recommended by cardiology. Echocardiogram showed mild LV systolic function decrease, severely enlarged left atrium. Orthopedic surgery was consulted, not recommending any interventions. Patient did get slightly more encephalopathic, and had low blood sugars, previous urinalysis was positive, urine culture was positive for ESBL. Repeat urinalysis shows a dirty sample. However, ID is consulted, patient is on IV antibiotics, ertapenem. Patient also developed oliguric SCOOTER. CT face showed neck mass of 3 x 4 cm and right maxillary inflammatory changes. ENT and maxillofacial surgery were consulted. ENT recommended IR consult for consideration of needle biopsy of left neck mass, however, upon review, r adiology deferred this procedure due to having stable imaging/finding of left neck mass/thyroid mass from prior imaging. Patient was however scheduled for dental extraction with abscess drainage of the right mandible. Patient had been transitioned to the ICU on 05/07 for septic shock requiring vasopressor, and had a requirement of 0.14. Underwent surgical extraction of tooth. Cultures pending. Data reviewed: WBC 10.2, hemoglobin 10.4, platelet 85, sodium 133, potassium 5.2, creatinine 2.48, ammonia 18, magnesium 2.7 Subjective: Patient seen and examined at bedside. No acute events overnight. Continues to have significant generalized body pain. Status post tooth extraction. Pressor requirements coming down. Vitals Signs Reviewed. General: generally weak, Derm: Warm, dry, jaundice Head: Atraumatic, normocephalic, symmetric Eyes: EOMI, no lid lag, scleral icterus Mouth: No lip lesion, mucus membranes moist Cardiovascular: S1S2 reg, no murmur Lungs: no accessory muscle use Abdominal: Soft, TTP diffusely Ext: No gross muscle atrophy, bilateral edema, no contractures Neuro: CN II-XI grossly intact, no focal neuro deficits, allodynia of plantar feet b/l Psych: Alert, oriented x 1 Assessment and Plan: Patient is severely ill, prognosis guarded Acute metabolic encephalopathy - septic and hepatic Septic Shock, unclear source Questionable urinary tract infection, prior cultures growing ESBL Dental abscess status post surgical extraction Liver cirrhosis Pancytopenia Hyperbilirubinemia - continue ertapenem - ID following, patient on ertapenem 0.5 g IV daily - pulmonology note reviewed, wean pressors, MAP goal above 60, swallow evaluation - continue levophed, continue to wean Pain control with IV Tylenol as needed -Patient was on primidone for tremors, decreased to 25 daily - Lactulose 200 g per rectum, complete swallow evaluation and then switch to p.o. if possible Oliguric SCOOTER Hyponatremia Mild hypokalemia -nephrology note reviewed, repeat 60 IV Lasix once today, maintain midodrine magnesium oxide stopped -family is okay with VEST BUSHELER if needed -hourly strict UOP measurement -On D5 normal saline at 50 cc an hour continue midodrine 10 AC 3 times daily Repeat BMP and magnesium tomorrow NSTEMI, likely type II New onset Afib with controlled ventricular rate History of CAD status post stent -Cardiology recommending medical management for NSTEMI -Continue aspirin 81 mg, on pravastatin 80 mg -On amiodarone 200 twice daily for rate control, no anticoagulation due to thrombocytopenia -Continue home metoprolol 12.5 daily -oral meds on hold while swallow study being done Compression fracture of T7 and T8 Acute left posterior eighth rib fracture Fracture of the coronoid process of the left scapula -Orthopedic surgery signed off, patient not a surgical candidate Thyroid mass -Outpatient follow-up DVT ppx: Patient is thrombocytopenic Code status: Full code Anticipated discharge place: Pending clinical course Anticipated discharge time: Pending clinical course Objective - Vital Signs Vital signs: Vital Signs Temp 97.7 F 05/10/23 12:00 Pulse 90 05/10/23 13:30 Resp 16 05/10/23 13:30 BP 116/73 05/10/23 13:30 Pulse Ox 88 L 05/10/23 13:30 FiO2 Intake & Output 05/09/23 05/10/23 05/10/23 18:59 06:59 18:59 Intake Total 183.267 3512.188 613.010 Output Total 575 660 310 Balance 282.345 851.188 303.010 Weight 94.9 kg 97.8 kg Intake: IV 670 610 310 .9 kvo 120 10 10 Dextrose 5%-0.9% NaCl 1, 550 300 000 ml @ 50 mls/hr IV . Q20H RONI Rx#:[id number] Lactated Ringers 1,000 ml 50 @ 50 mls/hr IV .Q20H RONI Rx#:[id number] Sodium Chloride 0.9% 1, 500 50 000 ml @ 50 mls/hr IV . Q20H RONI Rx#:[id number] Intake, IV Titration 187.345 901.188 303.010 Amount ACETAMINOPHEN IV (For NPO 100 ) 1,000 mg In Empty Bag 1 bag @ 400 mls/hr IVPB Q6HR PRN Rx#:[id number] Dextrose 5%-0.9% NaCl 1, 390 000 ml @ 50 mls/hr IV . Q20H RONI Rx#:[id number] Ertapenem 0.5 gm In 50 Sodium Chloride 0.9% 50 ml @ 100 mls/hr IVPB DAILY RONI Rx#:[id number] Lactated Ringers 1,000 ml 50 @ 50 mls/hr IV .Q20H RONI Rx#:[id number] Norepinephrine 4 mg In 137.345 411.188 253.010 Sodium Chloride 0.9% 250 ml @ 0.03 MCG/KG/MIN 6.74 mls/hr IV .Q24H RONI Rx#: [id number] Output: Urine 570 660 310 Estimated Blood Loss 5 Other: Voiding Method Indwelling Catheter Indwelling Catheter Indwelling Catheter # Bowel Movements 1 - Labs CBC & Chem 7: 05/10/23 03:55 05/10/23 03:55 Labs: Abnormal Lab Results - Last 24 Hours (Table) 05/09/23 05/10/23 05/10/23 Range/Units 23:33 03:55 03:55 RBC 3.27 L (3.80-5.40) m/uL Hgb 10.4 L (11.4-16.0) gm/dL Hct 32.4 L (34.0-46.0) % RDW 15.9 H (11.5-15.5) % Plt Count 85 L D (150-450) k/uL Neutrophils # 8.4 H (1.3-7.7) k/uL Lymphocytes # 0.6 L (1.0-4.8) k/uL Sodium 133 L (137-145) mmol/L Potassium 5.2 H (3.5-5.1) mmol/L BUN 78 H (7-17) mg/dL Creatinine 2.48 H (0.52-1.04) mg/dL POC Glucose (mg/dL) 116 H (70-110) mg/dL Calcium 7.3 L (8.4-10.2) mg/dL Magnesium 2.7 H (1.6-2.3) mg/dL 05/10/23 Range/Units 11:56 RBC (3.80-5.40) m/uL Hgb (11.4-16.0) gm/dL Hct (34.0-46.0) % RDW (11.5-15.5) % Plt Count (150-450) k/uL Neutrophils # (1.3-7.7) k/uL Lymphocytes # (1.0-4.8) k/uL Sodium (137-145) mmol/L Potassium (3.5-5.1) mmol/L BUN (7-17) mg/dL Creatinine (0.52-1.04) mg/dL POC Glucose (mg/dL) 140 H (70-110) mg/dL Calcium (8.4-10.2) mg/dL Magnesium (1.6-2.3) mg/dL Microbiology - Last 24 Hours (Table) 05/09/23 16:43 Gram Stain - Preliminary Mandible - Right 05/08/23 14:06 Blood Culture - Preliminary Blood 05/08/23 13:50 Urine Culture - Final Urine,Voided
--- NOTE | 2023-05-10 15:07 | P.PN ---
Subjective Progress Note Date: 05/10/23 Principal diagnosis: Reason for follow-up is leukocytosis and UTI Patient is a 82-year-old female with a past medical history significant for hypertension hyperlipidemia thrombocytopenia cirrhosis of the liver DC osteoarthritis patient was brought into the ER for evaluation of chest pain patient subsequently did have significant worsening of her mentation did have a positive UA concerning for possible component of UTI, with subsequent workup that shows evidence of dental abscess especially to tooth #29, patient did have extraction of tooth #29 along with drainage of the abscess completed on 05/09/2023. On today's visit that is 05/10/2023,the patient is more awake and alert today remains to be afebrile, patient is on 2 L nasal cannula supplemental oxygen and denies any shortness of breath no chest pain or cough.Patient denies having any nausea or vomiting, no abdominal pain, feeling better. The patient white count is 10.2, creatinine is 2.48 cultures are pending Objective - Vital Signs Vital signs: Vital Signs Temp 97.5 F L 05/10/23 04:00 Pulse 99 05/10/23 07:00 Resp 18 05/10/23 07:00 BP 118/42 05/10/23 07:00 Pulse Ox 96 05/10/23 08:32 FiO2 Intake & Output 05/09/23 05/10/23 05/10/23 18:59 06:59 18:59 Intake Total 769.833 1041.188 209.962 Output Total 575 660 30 Balance 282.345 851.188 179.962 Weight 94.9 kg 97.8 kg Intake: IV 670 610 50 .9 kvo 120 10 Dextrose 5%-0.9% NaCl 1, 550 50 000 ml @ 50 mls/hr IV . Q20H [facility] Rx#:[id number] Lactated Ringers 1,000 ml 50 @ 50 mls/hr IV .Q20H [facility] Rx#:[id number] Sodium Chloride 0.9% 1, 500 50 000 ml @ 50 mls/hr IV . Q20H [facility] Rx#:[id number] Intake, IV Titration 187.345 901.188 159.962 Amount ACETAMINOPHEN IV (For NPO 100 ) 1,000 mg In Empty Bag 1 bag @ 400 mls/hr IVPB Q6HR [facility] Rx#:[id number] Dextrose 5%-0.9% NaCl 1, 390 000 ml @ 50 mls/hr IV . Q20H [facility] Rx#:[id number] Lactated Ringers 1,000 ml 50 @ 50 mls/hr IV .Q20H [facility] Rx#:[id number] Norepinephrine 4 mg In 137.345 411.188 159.962 Sodium Chloride 0.9% 250 ml @ 0.03 MCG/KG/MIN 6.74 mls/hr IV .Q24H [facility] Rx#: [id number] Output: Urine 570 660 30 Estimated Blood Loss 5 Other: Voiding Method Indwelling Catheter Indwelling Catheter # Bowel Movements 1 - Exam GENERAL DESCRIPTION: An elderly Female lying in bed in no distress HEENT: Patient did have poor dentition to the lower jaw with a significant to the left lower jaw area no swelling induration or tenderness to the neck area was noticed RESPIRATORY SYSTEM: Unlabored breathing , decreased breath sounds at bases HEART: S1 S2 regular rate and rhythm , ABDOMEN: Soft , no tenderness EXTREMITIES: No edema feet - Labs CBC & Chem 7: 05/10/23 03:55 05/10/23 03:55 Labs: Abnormal Lab Results - Last 24 Hours (Table) 05/09/23 05/10/23 05/10/23 Range/Units 23:33 03:55 03:55 RBC 3.27 L (3.80-5.40) m/uL Hgb 10.4 L (11.4-16.0) gm/dL Hct 32.4 L (34.0-46.0) % RDW 15.9 H (11.5-15.5) % Plt Count 85 L D (150-450) k/uL Neutrophils # 8.4 H (1.3-7.7) k/uL Lymphocytes # 0.6 L (1.0-4.8) k/uL Sodium 133 L (137-145) mmol/L Potassium 5.2 H (3.5-5.1) mmol/L BUN 78 H (7-17) mg/dL Creatinine 2.48 H (0.52-1.04) mg/dL POC Glucose (mg/dL) 116 H (70-110) mg/dL Calcium 7.3 L (8.4-10.2) mg/dL Magnesium 2.7 H (1.6-2.3) mg/dL Microbiology - Last 24 Hours (Table) 05/09/23 16:43 Gram Stain - Preliminary Mandible - Right 05/08/23 14:06 Blood Culture - Preliminary Blood 05/08/23 13:50 Urine Culture - Final Urine,Voided Assessment and Plan (1) Leukocytosis Current Visit: Yes Status: Acute Code(s): D72.829 - ELEVATED WHITE BLOOD CELL COUNT, UNSPECIFIED SNOMED Code(s): 963687545 (2) Allergy to multiple antibiotics Current Visit: Yes Status: Acute Code(s): Z88.1 - ALLERGY STATUS TO OTHER ANTIBIOTIC AGENTS SNOMED Code(s): 915197410 (3) Urinary tract infection Current Visit: No Status: Acute Code(s): N39.0 - URINARY TRACT INFECTION, SITE NOT SPECIFIED SNOMED Code(s): 63636391 Plan: 1patient with sepsis, source likely infected tooth and abscess patient has been evaluated by oral surgery and plan is status post extraction of tooth #29 and drainage of the abscess cultures are currently pending 2-patient to continue with Invanz while waiting for the culture to finalize and monitor clinical course closely Daughter at the bedside questions were answered Dictation was produced using [employer] dictation software. please excuse any grammatical, word or spelling errors. Time with Patient: Less than 30
--- NOTE | 2023-05-10 15:50 | P.PAINCN ---
History of Present Illness - Reason for Consult Consult date: 05/10/23 Pain management - Chief Complaint Pain all over her body. - History of Present Illness Pain management was consulted for pain control on this 82-year-old female. Patient had multiple injuries and pain in different areas of the body. When I went to see the patient she appears to be relatively in comfort. Patient is also in mild to moderate confusion. Had a long conversation with patient's hus band. He relates, he does not know what happens with pain medications. In chart it is written morphine causes skin rashes. 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 Kan). 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 Freq. platelet transfusion with most procedures. Date of Last Stent Placement:: 1998 Past Psychological History: No Psychological Hx Reported Smoking Status: Former smoker Past Alcohol Use History: None Reported Additional Past Alcohol Use History / Comment(s): smokes maybe weekly- 1-2 cigarettes- had smoked and quit for 12 yrs and started up about 5 yrs ago again Past Drug Use History: None Reported - Past Family History Mother Family Medical History: Cancer Additional Family Medical History / Comment(s): Breast Ca Father Family Medical History: Myocardial Infarction ([place]) Additional Family Medical History / Comment(s): @ age 86 from [place] Medications and Allergies Home Medications Medication Instructions Recorded Confirmed Type Pravastatin Sodium 80 mg PO DAILY 07/30/20 04/30/23 History Primidone [Mysoline] 50 mg PO BID 07/30/20 04/30/23 History Triamcinolone 0.1% Ointment 1 applic TOPICAL DAILY PRN 12/03/22 04/30/23 History [Kenalog 0.1% Ointment] Metoprolol Succinate (ER) [Toprol 12.5 mg PO DAILY #30 tab 12/10/22 04/30/23 Rx XL] Midodrine [ProAmatine] 5 mg PO AC-TID #90 tab 12/10/22 04/30/23 Rx Furosemide [Lasix] 40 mg PO BID #0 12/16/22 04/30/23 Rx Ketorolac [Toradol] 10 mg PO Q8HR #15 tab 04/26/23 04/30/23 Rx Lidocaine 5% Patch [Lidoderm 5% 1 patch TOPICAL DAILY #5 patch 04/26/23 04/30/23 Rx Patch] Ampicillin 500mg Capsule 500 mg PO DAILY 04/30/23 04/30/23 History Clotrimazole/Betameth Cream 1 applic TOPICAL BID 04/30/23 04/30/23 History [Lotrisone] Cyclobenzaprine [Flexeril] 10 mg PO TID PRN 04/30/23 04/30/23 History Lactulose [Constulose] 30 gm PO TID 04/30/23 04/30/23 History Allergies Allergy/AdvReac Type Severity Reaction Status Date / Time cephalexin monohydrate Allergy Rash/Hives/ Verified 04/30/23 12:21 [From Keflex] Swelling codeine Allergy Rash/Hives Verified 04/30/23 12:21 doxepin Allergy Rash/Hives Verified 04/30/23 12:21 meperidine HCl [From Demerol] Allergy Rash/Hives Verified 04/30/23 12:21 methylprednisolone Allergy Rash/Hives Verified 04/30/23 12:21 [From Medrol] Opioids - Morphine Analogues Allergy Rash/Hives Verified 04/30/23 12:21 Penicillins Allergy Swelling Verified 04/30/23 12:21 over entire body pentazocine lactate Allergy Rash/Hives-Stomach Verified 04/30/23 12:21 [From Talwin] Upset propoxyphene napsylate Allergy Rash/Hives- Verified 04/30/23 12:21 [From Darvocet-N] Itch tramadol Allergy Rash/Hives Verified 04/30/23 12:21 ketorolac [From Toradol] AdvReac Hallucinati Verified 04/30/23 12:27 ons Physical Exam Vitals: Vital Signs Temp Pulse Resp BP Pulse Ox 05/10/23 14:00 90 16 103/40 97 05/10/23 13:45 94 16 101/59 95 05/10/23 13:30 90 16 116/73 88 L 05/10/23 13:15 105 H 16 113/49 91 L 05/10/23 13:00 96 16 124/50 99 05/10/23 12:45 96 16 124/55 98 05/10/23 12:30 96 16 115/51 96 05/10/23 12:15 87 24 113/51 93 L 05/10/23 12:00 97.7 F 98 24 108/55 92 L 05/10/23 11:45 90 16 114/50 95 05/10/23 11:30 103 H 16 117/50 93 L 05/10/23 11:15 90 16 116/46 89 L 05/10/23 11:00 102 H 16 134/84 95 05/10/23 10:45 103 H 18 134/84 91 L 05/10/23 10:30 97 28 H 122/60 94 L 05/10/23 10:15 92 23 130/55 94 L 05/10/23 10:00 101 H 16 135/69 97 05/10/23 09:45 95 18 128/49 96 05/10/23 09:30 92 16 126/54 86 L 05/10/23 09:15 84 16 137/56 96 05/10/23 09:00 80 16 126/45 97 05/10/23 08:45 90 16 119/50 97 05/10/23 08:32 96 05/10/23 08:30 87 16 104/52 98 05/10/23 08:15 89 18 120/50 97 05/10/23 08:00 97.7 F 90 12 105/43 97 05/10/23 07:45 96 8 L 113/56 97 05/10/23 07:30 95 33 H 110/53 98 05/10/23 07:15 99 27 H 90/61 98 05/10/23 07:00 99 18 118/42 92 L 05/10/23 06:45 92 16 105/45 98 05/10/23 06:30 90 17 110/57 98 05/10/23 06:15 95 17 85/55 97 05/10/23 06:00 110 H 26 H 99/39 99 05/10/23 05:45 105 H 14 104/41 98 05/10/23 05:30 94 18 109/43 98 05/10/23 05:15 98 20 97/51 87 L 05/10/23 05:00 90 11 L 90/48 91 L 05/10/23 04:45 86 16 102/62 98 05/10/23 04:30 84 16 105/36 99 05/10/23 04:15 112 H 29 H 94/38 90 L 05/10/23 04:00 97.5 F L 90 19 120/33 89 L 05/10/23 03:45 84 19 116/54 98 05/10/23 03:30 80 19 94/49 98 05/10/23 03:15 87 20 117/34 92 L 05/10/23 03:00 89 18 97/44 98 05/10/23 02:45 100 20 103/51 99 05/10/23 02:30 93 27 H 104/45 99 05/10/23 02:15 89 20 106/54 98 05/10/23 02:00 95 114/44 99 05/10/23 01:45 92 14 100/74 96 05/10/23 01:30 79 14 99/47 97 05/10/23 01:15 96 25 H 118/83 99 05/10/23 01:00 92 22 104/52 94 L 05/10/23 00:45 101 H 20 109/56 99 05/10/23 00:30 87 20 118/57 99 05/10/23 00:15 93 27 H 113/50 99 05/10/23 00:00 97.5 F L 98 18 102/67 99 05/09/23 23:45 101 H 16 81/42 99 05/09/23 23:30 101 H 24 89/44 98 05/09/23 23:15 98 20 113/54 99 05/09/23 23:00 96 12 90/51 95 05/09/23 22:45 87 12 92/52 97 05/09/23 22:30 93 20 108/57 98 05/09/23 22:24 96 12 108/57 98 05/09/23 22:15 92 12 90/66 98 05/09/23 22:00 85 26 H 88/64 98 05/09/23 21:45 90 17 101/47 96 05/09/23 21:30 84 24 90/63 99 05/09/23 21:15 93 16 113/40 93 L 05/09/23 21:00 104 H 6 L 108/51 98 05/09/23 20:45 92 14 94/44 99 05/09/23 20:30 98 29 H 111/45 99 05/09/23 20:15 83 21 110/56 99 05/09/23 20:00 97.4 F L 101 H 20 105/48 99 05/09/23 19:45 91 26 H 115/43 99 05/09/23 19:30 88 11 L 105/86 99 05/09/23 19:00 89 10 L 115/89 94 L 05/09/23 18:45 84 12 114/41 96 05/09/23 18:30 90 12 110/47 96 05/09/23 18:15 95 12 112/33 94 L 05/09/23 18:00 98 16 117/61 95 05/09/23 17:45 89 22 120/35 98 05/09/23 17:30 90 32 H 102/35 98 05/09/23 17:15 87 17 92/39 99 05/09/23 17:00 92 16 108/39 98 05/09/23 16:00 97.3 F L 81 20 112/53 100 05/09/23 15:45 84 25 H 109/43 99 Intake and Output 05/10/23 05/10/23 05/10/23 06:59 14:59 22:59 Intake Total 878.442 773.010 Output Total 375 375 Balance 503.442 398.010 Intake: IV 400 470 .9 kvo 70 Dextrose 5%-0.9% NaCl 1, 400 400 000 ml @ 50 mls/hr IV . Q20H [facility] Rx#:[id number] Intake, IV Titration 478.442 303.010 Amount Dextrose 5%-0.9% NaCl 1, 240 000 ml @ 50 mls/hr IV . Q20H [facility] Rx#:[id number] Ertapenem 0.5 gm In 50 Sodium Chloride 0.9% 50 ml @ 100 mls/hr IVPB DAILY [facility] Rx#:[id number] Norepinephrine 4 mg In 238.442 253.010 Sodium Chloride 0.9% 250 ml @ 0.03 MCG/KG/MIN 6.74 mls/hr IV .Q24H [facility] Rx#: [id number] Output: Urine 375 375 Other: Voiding Method Indwelling Catheter Indwelling Catheter Weight 97.8 kg Sickle exam is very limited. Patient appears to be sleeping comfortably. She moves around all extremities. Results CBC & Chem 7: 05/10/23 03:55 05/10/23 03:55 Labs: Abnormal Lab Results - Last 24 Hours (Table) 05/09/23 05/10/23 05/10/23 Range/Units 23:33 03:55 03:55 RBC 3.27 L (3.80-5.40) m/uL Hgb 10.4 L (11.4-16.0) gm/dL Hct 32.4 L (34.0-46.0) % RDW 15.9 H (11.5-15.5) % Plt Count 85 L D (150-450) k/uL Neutrophils # 8.4 H (1.3-7.7) k/uL Lymphocytes # 0.6 L (1.0-4.8) k/uL Sodium 133 L (137-145) mmol/L Potassium 5.2 H (3.5-5.1) mmol/L BUN 78 H (7-17) mg/dL Creatinine 2.48 H (0.52-1.04) mg/dL POC Glucose (mg/dL) 116 H (70-110) mg/dL Calcium 7.3 L (8.4-10.2) mg/dL Magnesium 2.7 H (1.6-2.3) mg/dL 05/10/23 Range/Units 11:56 RBC (3.80-5.40) m/uL Hgb (11.4-16.0) gm/dL Hct (34.0-46.0) % RDW (11.5-15.5) % Plt Count (150-450) k/uL Neutrophils # (1.3-7.7) k/uL Lymphocytes # (1.0-4.8) k/uL Sodium (137-145) mmol/L Potassium (3.5-5.1) mmol/L BUN (7-17) mg/dL Creatinine (0.52-1.04) mg/dL POC Glucose (mg/dL) 140 H (70-110) mg/dL Calcium (8.4-10.2) mg/dL Magnesium (1.6-2.3) mg/dL Microbiology - Last 24 Hours (Table) 05/09/23 16:43 Gram Stain - Preliminary Mandible - Right 05/08/23 14:06 Blood Culture - Preliminary Blood 05/08/23 13:50 Urine Culture - Final Urine,Voided Assessment and Plan (1) Generalized pain Current Visit: Yes Status: Acute Code(s): R52 - PAIN, UNSPECIFIED SNOMED Code(s): 80116462 Plan: As patient appears to be comfortable may continue current pain treatment. Avoid patient controlled analgesia because of patient's confusion. If needed, may try Dilaudid 0.2 mg IV every 1 hour as needed. To be noted allergy to morphine is skin rashes. Considering patient's confusion, ketamine would not be a first choice. If used, may consider using 5 to 10 mg IV every 1-3 hours as needed. Time with Patient: Less than 30 PQRS Measure Charge Sheet - Pain Location Chest Non-Pharmacological Interventions: Darkened Room, Position/Reposition, Reduce Environmental Stimuli, Relaxation Technique Pharmacological Interventions: PRN Medication Bilateral Leg Non-Pharmacological Interventions: Darkened Room, Distraction, Position/Reposition, Reduce Environmental Stimuli, Relaxation Technique Generalized Non-Pharmacological Interventions: Darkened Room, Position/Reposition, Reduce Environmental Stimuli Pharmacological Interventions: Scheduled Medication Left Foot Non-Pharmacological Interventions: Darkened Room, Position/Reposition, Reduce Environmental Stimuli, Relaxation Technique Pharmacological Interventions: PRN Medication Pain Comment: angie ROSE about pain. Pt is cryng out but can't or won't give me more information about her pain other than "it hurts so bad and you just can't understand." PQRS Narrative: Smoking Status Current some day smoker Blood Pressure [Left Arm] 120/62 Blood Pressure [Right Arm] 60/33 Blood Pressure 103/40 Pain Intensity [Left Foot] 0 Pain Intensity [Generalized] 0 Pain Intensity [Bilateral Leg] 9 Pain Intensity [Chest] 9 Pain Intensity 9 Pain Scale Used Non Verbal Pain Indicator Scale Used Numeric (1 - 10) Home Medications: Ambulatory Orders Pravastatin Sodium 80 mg PO DAILY 07/30/20 Primidone [Mysoline] 50 mg PO BID 07/30/20 Triamcinolone 0.1% Ointment [Kenalog 0.1% Ointment] 1 applic TOPICAL DAILY PRN 12/03/22 Metoprolol Succinate (ER) [Toprol XL] 12.5 mg PO DAILY #30 tab 12/10/22 Midodrine [ProAmatine] 5 mg PO AC-TID #90 tab 12/10/22 Furosemide [Lasix] 40 mg PO BID #0 12/16/22 Ketorolac [Toradol] 10 mg PO Q8HR #15 tab 04/26/23 Lidocaine 5% Patch [Lidoderm 5% Patch] 1 patch TOPICAL DAILY #5 patch 04/26/23 Ampicillin 500mg Capsule 500 mg PO DAILY 04/30/23 Clotrimazole/Betameth Cream [Lotrisone] 1 applic TOPICAL BID 04/30/23 Cyclobenzaprine [Flexeril] 10 mg PO TID PRN 04/30/23 Lactulose [Constulose] 30 gm PO TID 04/30/23
[2023-05-10 16:10] LABS: Glucose,Whole Blood 150 mg/dL (70-110)
[2023-05-10 20:02] LABS: Glucose,Whole Blood 166 mg/dL (70-110)
[2023-05-10 23:48] LABS: Glucose,Whole Blood 152 mg/dL (70-110)
[2023-05-11 04:28] LABS: Glucose,Whole Blood 149 mg/dL (70-110)
[2023-05-11 04:33] LABS: Anisocytosis Slight; Basophils # (A) 0.1 k/uL (0-0.2); Basophils % (A) 1 %; Eosinophils # (A) 0.1 k/uL (0-0.7); Eosinophils % (A) 1 %; HCT 30.1 % (34.0-46.0); HGB 9.8 gm/dL (11.4-16.0); Hypochromasia Moderate; Lymphocytes # (A) 0.6 k/uL (1.0-4.8); Lymphocytes % (A) 7 %; MCH 32.6 pg (25.0-35.0); MCHC 32.4 g/dL (31.0-37.0); MCV 100.5 fL (80.0-100.0); Macrocytosis Slight; Mean Platelet Volume 9.8; Monocytes # (A) 0.5 k/uL (0-1.0); Monocytes % (A) 6 %; Neutrophils # (A) 6.7 k/uL (1.3-7.7); Neutrophils % (A) 81 %; Poikilocytosis Slight; WBC 8.2 k/uL (3.8-10.6)
[2023-05-11 04:38] LABS: Platelet Count 76 k/uL (150-450)
[2023-05-11 04:48] LABS: African American GFR (CKD) 21 (>60 ml/min/1.73 sqM); Anion Gap 4 mmol/L; Blood Urea Nitrogen 72 mg/dL (7-17); Calcium 7.7 mg/dL (8.4-10.2); Carbon Dioxide 28 mmol/L (22-30); Chloride 104 mmol/L (98-107); Glucose 125 mg/dL (74-99); Magnesium 2.6 mg/dL (1.6-2.3); Non-African American GFR(CKD) 18 (>60 ml/min/1.73 sqM); Potassium 4.8 mmol/L (3.5-5.1); Sodium 136 mmol/L (137-145)
--- NOTE | 2023-05-11 07:52 | P.PN ---
Progress Note - Text Progress Note Date: 05/11/23 Mental status slightly improved. Reports no pain in her mouth. Appears to be tolerating a soft diet. Still requiring medication support for her low blood pressure. Some discharge noted from the tooth extraction socket. Patient's mouth opening is within normal limits. Assessment: Abscess continues to improve Plan: Continue on Invanz until ID makes adjustments based on new cultures. Cultures have been returned with Staphylococcus hemolyticus with multiple antibiotic resistances. Anaerobic cultures grew candidiasis which could represent contaminant or possibly part of the pathology in this case. May consider treatment with antifungal if clinical picture does not improve.
[2023-05-11 08:54] LABS: Glucose,Whole Blood 135 mg/dL (70-110)
[2023-05-11] MEDS: LACTULOSE 20 GM/30 ML CUP PO SCH (09:33)
--- NOTE | 2023-05-11 10:09 | XR ---
EXAMINATION TYPE: XR chest 1V portable DATE OF EXAM: 05/11/2023 9:05 AM CLINICAL INDICATION:Female, 82 years old with history of increased resp. demands; [facility] COMPARISON: Chest radiographs from 05/08/2023. TECHNIQUE: XR chest 1V portable Frontal view of the chest. FINDINGS: Lungs/Pleura: There is no evidence of pleural effusion, focal consolidation, or pneumothorax. Pulmonary vascularity: Unremarkable. Heart/mediastinum: Cardiomediastinal silhouette is enlarged and stable. Musculoskeletal: No acute osseous pathology. IMPRESSION: Cardiomegaly, pulmonary vascular congestion and bilateral pleural effusions. Correlate with BNP for c ongestive heart failure.
--- NOTE | 2023-05-11 10:24 | P.PN ---
Subjective Patient is seen in follow-up for acute kidney injury. Renal function fairly stable. Urine output 40 to 50 cc an hour. On Levophed. Poor historian. Vital signs are stable. On Levophed. General: No acute distress. HEENT: Head exam is unremarkable. On nasal cannula. LUNGS: No audible rhonchi or wheezes. HEART: Rate and Rhythm are regular. ABDOMEN: Nontender. EXTREMITITES: 2+ edema. Objective - Vital Signs Vital signs: Vital Signs Temp 97.5 F L 05/11/23 08:00 Pulse 101 H 05/11/23 10:00 Resp 17 05/11/23 10:00 BP 110/41 05/11/23 10:00 Pulse Ox 97 05/11/23 10:00 FiO2 Intake & Output 05/10/23 05/11/23 05/11/23 18:59 06:59 18:59 Intake Total 1255.011 873.321 260 Output Total 730 380 120 Balance 525.011 493.321 140 Weight 97.8 kg Intake: IV 770 660 260 .9 kvo 120 110 10 Dextrose 5%-0.9% NaCl 1, 650 550 200 000 ml @ 50 mls/hr IV . Q20H [facility] Rx#:[id number] Ertapenem 0.5 gm In 50 Sodium Chloride 0.9% 50 ml @ 100 mls/hr IVPB DAILY [facility] Rx#:[id number] Intake, IV Titration 485.011 213.321 Amount ACETAMINOPHEN IV (For NPO 100 ) 1,000 mg In Empty Bag 1 bag @ 400 mls/hr IVPB Q6HR [facility] Rx#:[id number] Ertapenem 0.5 gm In 50 Sodium Chloride 0.9% 50 ml @ 100 mls/hr IVPB DAILY [facility] Rx#:[id number] Norepinephrine 4 mg In 335.011 213.321 Sodium Chloride 0.9% 250 ml @ 0.03 MCG/KG/MIN 6.74 mls/hr IV .Q24H [facility] Rx#: [id number] Output: Urine 730 380 120 Other: Voiding Method Indwelling Catheter Indwelling Catheter Indwelling Catheter - Labs CBC & Chem 7: 05/11/23 03:57 05/11/23 03:57 Labs: Abnormal Lab Results - Last 24 Hours (Table) 05/10/23 05/10/23 05/10/23 Range/Units 11:56 16:08 20:00 RBC (3.80-5.40) m/uL Hgb (11.4-16.0) gm/dL Hct (34.0-46.0) % MCV (80.0-100.0) fL RDW (11.5-15.5) % Plt Count (150-450) k/uL Lymphocytes # (1.0-4.8) k/uL Sodium (137-145) mmol/L BUN (7-17) mg/dL Creatinine (0.52-1.04) mg/dL Glucose (74-99) mg/dL POC Glucose (mg/dL) 140 H 150 H 166 H (70-110) mg/dL Calcium (8.4-10.2) mg/dL Magnesium (1.6-2.3) mg/dL 05/10/23 05/11/23 05/11/23 Range/Units 23:47 03:57 03:57 RBC 3.00 L (3.80-5.40) m/uL Hgb 9.8 L (11.4-16.0) gm/dL Hct 30.1 L (34.0-46.0) % MCV 100.5 H (80.0-100.0) fL RDW 16.0 H (11.5-15.5) % Plt Count 76 L (150-450) k/uL Lymphocytes # 0.6 L (1.0-4.8) k/uL Sodium 136 L (137-145) mmol/L BUN 72 H (7-17) mg/dL Creatinine 2.41 H (0.52-1.04) mg/dL Glucose 125 H (74-99) mg/dL POC Glucose (mg/dL) 152 H (70-110) mg/dL Calcium 7.7 L (8.4-10.2) mg/dL Magnesium 2.6 H (1.6-2.3) mg/dL 05/11/23 05/11/23 Range/Units 04:26 08:52 RBC (3.80-5.40) m/uL Hgb (11.4-16.0) gm/dL Hct (34.0-46.0) % MCV (80.0-100.0) fL RDW (11.5-15.5) % Plt Count (150-450) k/uL Lymphocytes # (1.0-4.8) k/uL Sodium (137-145) mmol/L BUN (7-17) mg/dL Creatinine (0.52-1.04) mg/dL Glucose (74-99) mg/dL POC Glucose (mg/dL) 149 H 135 H (70-110) mg/dL Calcium (8.4-10.2) mg/dL Magnesium (1.6-2.3) mg/dL Microbiology - Last 24 Hours (Table) 05/08/23 14:06 Blood Culture - Preliminary Blood 05/08/23 17:30 Anaerobic Culture - Preliminary Mouth Sabrina albicans 05/08/23 17:30 Gram Stain - Final Mouth Wound Culture - Final Staphylococcus haemolyticus 05/09/23 16:43 Gram Stain - Preliminary Mandible - Right Assessment and Plan Plan: Assessment: 1. Acute kidney injury secondary to ATN secondary to septic shock. Creatinine 1.19 on admission and peaked at 3.07 this admission. 2.41 today. Left kidney is small. No hydronephrosis noted. 2. Septic shock on Levophed. Concern for UTI versus dental abscess. 3. Hyperkalemia secondary to acute kidney injury and LR. Better. 4. Volume overload. 5. Hypervolemic hyponatremia. Better. 6. Non-ST elevated myocardial infarction. Plan: Add IV Lasix 60 mg twice daily. Wean vasopressors. Avoid nephrotoxins. Magnesium oxide discontinued. Maintain midodrine. Hold for systolic blood pressure greater than 110. Continue to assess daily for need for renal replacement therapy. No urgency at this time.
[2023-05-11] MEDS: FUROSEMIDE 10 MG/ML 10 ML VIAL IV SCH (10:25)
--- NOTE | 2023-05-11 11:19 | P.PN ---
Subjective Progress Note Date: 05/11/23 Hospital Course: 82-year-old female with history of liver cirrhosis, CAD status post stent, chronic systolic heart failure, hypertension, dyslipidemia, chronic pancytopenia, ITP presented with chest pain and shortness of breath. On initial presentation, patient was tachycardic, tachypneic, saturating well on room air. EKG showed sinus tachycardia with known left bundle branch block. Chest x-ray showed pulmonary vascular interstitial markings. 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 CBC showing pancytopenia with WBC count of 1.6, hemoglobin 11.3, platelet count of 41. Coagulation profile showing elevated INR of 1.3. BMP showing hyponatremia with sodium of 131, elevated BUN of 33, creatinine 1.19, GFR 43. Liver profile showing elevated total bili of 4.2, AST of 44, ALT of 20, and alkaline phosphatase of 282. Troponin 0.064 and proBNP 2360. Troponin continues to uptrend. Cardiology was consulted. No invasive procedures recommended by cardiology. Echocardiogram showed mild LV systolic function decrease, severely enlarged left atrium. Orthopedic surgery was consulted, not recommending any interventions. Patient did get slightly more encephalopathic, and had low blood sugars, previous urinalysis was positive, urine culture was positive for ESBL. Repeat urinalysis shows a dirty sample. However, ID is consulted, patient is on IV antibiotics, ertapenem. Patient also developed oliguric SCOOTER. CT face showed neck mass of 3 x 4 cm and right maxillary inflammatory changes. ENT and maxillofacial surgery were consulted. ENT recommended IR consult for consideration of needle biopsy of left neck mass, however, upon review, r adiology deferred this procedure due to having stable imaging/finding of left neck mass/thyroid mass from prior imaging. Patient was however scheduled for dental extraction with abscess drainage of the right mandible. Patient had been transitioned to the ICU on 05/07 for septic shock requiring vasopressor, and had a requirement of 0.14. Underwent surgical extraction of tooth. Data reviewed: WBC 8.2, hemoglobin 9.8, platelets 76, sodium 136, potassium 4.8, magnesium 2.6, creatinine 2.41, blood glucose range between 125-152 Mild cultures growing Staphylococcus hemolyticus, and Sabrina Subjective: Patient seen and examined at bedside. No acute events overnight. A little bit more sleepy today pressor requirements coming down. Vitals Signs Reviewed. General: generally weak,, lethargic appearing Derm: Warm, dry, jaundice Head: Atraumatic, normocephalic, symmetric Eyes: EOMI, no lid lag, scleral icterus Mouth: No lip lesion, mucus membranes moist Cardiovascular: S1S2 reg, no murmur Lungs: no accessory muscle use Abdominal: Soft, TTP diffusely Ext: No gross muscle atrophy, bilateral 2+ pitting edema, no contractures Neuro: CN II-XI grossly intact, no focal neuro deficits, allodynia of plantar feet b/l Psych: Somnolent, oriented x 1 Assessment and Plan: Patient is severely ill, prognosis guarded Acute metabolic encephalopathy - septic and hepatic Septic Shock, unclear source Questionable urinary tract infection, prior cultures growing ESBL Dental abscess status post surgical extraction Liver cirrhosis Pancytopenia Hyperbilirubinemia - ID following, patient on ertapenem 0.5 g IV daily - pulmonology following, wean pressors, MAP goal above 60 - continue levophed, continue to wean Pain control with IV Tylenol as needed, also on gabapentin 100 3 times daily -Patient was on primidone for tremors, decreased to 25 daily - Lactulose 30 daily Oliguric SCOOTER Hyponatremia Mild hypokalemia -nephrology note reviewed, continue 60 mg IV Lasix twice daily, maintain midodr ine -family is okay with FITTER TACKER if needed -hourly strict UOP measurement -On D5 normal saline at 50 cc an hour continue midodrine 10 AC 3 times daily Repeat BMP and magnesium tomorrow NSTEMI, likely type II New onset Afib with controlled ventricular rate History of CAD status post stent -Cardiology recommending medical management for NSTEMI -Continue aspirin 81 mg, on pravastatin 80 mg -On amiodarone 200 twice daily for rate control, no anticoagulation due to thrombocytopenia -Continue home metoprolol 12.5 daily Compression fracture of T7 and T8 Acute left posterior eighth rib fracture Fracture of the coronoid process of the left scapula -Orthopedic surgery signed off, patient not a surgical candidate Thyroid mass -Outpatient follow-up DVT ppx: Patient is thrombocytopenic Code status: Full code Anticipated discharge place: Pending clinical course Anticipated discharge time: Pending clinical course Objective - Vital Signs Vital signs: Vital Signs Temp 97.5 F L 05/11/23 08:00 Pulse 77 05/11/23 11:15 Resp 17 05/11/23 11:15 BP 97/50 05/11/23 11:15 Pulse Ox 97 05/11/23 11:15 FiO2 Intake & Output 05/10/23 05/11/23 05/11/23 18:59 06:59 18:59 Intake Total 1255.011 873.321 310 Output Total 730 380 180 Balance 525.011 493.321 130 Weight 97.8 kg Intake: IV 770 660 310 .9 kvo 120 110 10 Dextrose 5%-0.9% NaCl 1, 650 550 250 000 ml @ 50 mls/hr IV . Q20H [facility] Rx#:[id number] Ertapenem 0.5 gm In 50 Sodium Chloride 0.9% 50 ml @ 100 mls/hr IVPB DAILY [facility] Rx#:[id number] Intake, IV Titration 485.011 213.321 Amount ACETAMINOPHEN IV (For NPO 100 ) 1,000 mg In Empty Bag 1 bag @ 400 mls/hr IVPB Q6HR [facility] Rx#:[id number] Ertapenem 0.5 gm In 50 Sodium Chloride 0.9% 50 ml @ 100 mls/hr IVPB DAILY [facility] Rx#:[id number] Norepinephrine 4 mg In 335.011 213.321 Sodium Chloride 0.9% 250 ml @ 0.03 MCG/KG/MIN 6.74 mls/hr IV .Q24H [facility] Rx#: [id number] Output: Urine 730 380 180 Other: Voiding Method Indwelling Catheter Indwelling Catheter Indwelling Catheter - Labs CBC & Chem 7: 05/11/23 03:57 05/11/23 03:57 Labs: Abnormal Lab Results - Last 24 Hours (Table) 05/10/23 05/10/23 05/10/23 Range/Units 11:56 16:08 20:00 RBC (3.80-5.40) m/uL Hgb (11.4-16.0) gm/dL Hct (34.0-46.0) % MCV (80.0-100.0) fL RDW (11.5-15.5) % Plt Count (150-450) k/uL Lymphocytes # (1.0-4.8) k/uL Sodium (137-145) mmol/L BUN (7-17) mg/dL Creatinine (0.52-1.04) mg/dL Glucose (74-99) mg/dL POC Glucose (mg/dL) 140 H 150 H 166 H (70-110) mg/dL Calcium (8.4-10.2) mg/dL Magnesium (1.6-2.3) mg/dL 05/10/23 05/11/23 05/11/23 Range/Units 23:47 03:57 03:57 RBC 3.00 L (3.80-5.40) m/uL Hgb 9.8 L (11.4-16.0) gm/dL Hct 30.1 L (34.0-46.0) % MCV 100.5 H (80.0-100.0) fL RDW 16.0 H (11.5-15.5) % Plt Count 76 L (150-450) k/uL Lymphocytes # 0.6 L (1.0-4.8) k/uL Sodium 136 L (137-145) mmol/L BUN 72 H (7-17) mg/dL Creatinine 2.41 H (0.52-1.04) mg/dL Glucose 125 H (74-99) mg/dL POC Glucose (mg/dL) 152 H (70-110) mg/dL Calcium 7.7 L (8.4-10.2) mg/dL Magnesium 2.6 H (1.6-2.3) mg/dL 05/11/23 05/11/23 Range/Units 04:26 08:52 RBC (3.80-5.40) m/uL Hgb (11.4-16.0) gm/dL Hct (34.0-46.0) % MCV (80.0-100.0) fL RDW (11.5-15.5) % Plt Count (150-450) k/uL Lymphocytes # (1.0-4.8) k/uL Sodium (137-145) mmol/L BUN (7-17) mg/dL Creatinine (0.52-1.04) mg/dL Glucose (74-99) mg/dL POC Glucose (mg/dL) 149 H 135 H (70-110) mg/dL Calcium (8.4-10.2) mg/dL Magnesium (1.6-2.3) mg/dL Microbiology - Last 24 Hours (Table) 05/08/23 14:06 Blood Culture - Preliminary Blood 05/08/23 17:30 Anaerobic Culture - Preliminary Mouth Sabrina albicans 05/08/23 17:30 Gram Stain - Final Mouth Wound Culture - Final Staphylococcus haemolyticus 05/09/23 16:43 Gram Stain - Preliminary Mandible - Right
[2023-05-11 11:27] LABS: Glucose,Whole Blood 145 mg/dL (70-110)
--- NOTE | 2023-05-11 11:40 | P.PN ---
Subjective Progress Note Date: 05/11/23 Principal diagnosis: Reason for follow-up is leukocytosis and UTI Patient is a 82-year-old female with a past medical history significant for hypertension hyperlipidemia thrombocytopenia cirrhosis of the liver MA osteoarthritis patient was brought into the ER for evaluation of chest pain patient subsequently did have significant worsening of her mentation did have a positive UA concerning for possible component of UTI, with subsequent workup that shows evidence of dental abscess especially to tooth #29, patient did have extraction of tooth #29 along with drainage of the abscess completed on 05/09/2023. On today's visit that is 05/11/2023, the patient continues to be afebrile, the patient is on 2 L nasal cannula oxygen and breathing comfortably, the Pt sleepy today and did not answer any question normally diarrhea or any other changes reported by the nursing staff. Patient white count normalized to 8.2, creatinine is 2.41 mild cultures growing Staphylococcus hemolyticus Sabrina Objective - Vital Signs Vital signs: Vital Signs Temp 97.5 F L 05/11/23 08:00 Pulse 77 05/11/23 11:15 Resp 17 05/11/23 11:15 BP 97/50 05/11/23 11:15 Pulse Ox 97 05/11/23 11:15 FiO2 Intake & Output 05/10/23 05/11/23 05/11/23 18:59 06:59 18:59 Intake Total 1255.011 873.321 464.683 Output Total 730 380 180 Balance 525.011 493.321 284.683 Weight 97.8 kg Intake: IV 770 660 310 .9 kvo 120 110 10 Dextrose 5%-0.9% NaCl 1, 650 550 250 000 ml @ 50 mls/hr IV . Q20H [facility] Rx#:[id number] Ertapenem 0.5 gm In 50 Sodium Chloride 0.9% 50 ml @ 100 mls/hr IVPB DAILY [facility] Rx#:[id number] Intake, IV Titration 485.011 213.321 154.683 Amount ACETAMINOPHEN IV (For NPO 100 ) 1,000 mg In Empty Bag 1 bag @ 400 mls/hr IVPB Q6HR [facility] Rx#:[id number] Ertapenem 0.5 gm In 50 Sodium Chloride 0.9% 50 ml @ 100 mls/hr IVPB DAILY [facility] Rx#:[id number] Norepinephrine 4 mg In 335.011 213.321 154.683 Sodium Chloride 0.9% 250 ml @ 0.03 MCG/KG/MIN 6.74 mls/hr IV .Q24H [facility] Rx#: [id number] Output: Urine 730 380 180 Other: Voiding Method Indwelling Catheter Indwelling Catheter Indwelling Catheter - Exam GENERAL DESCRIPTION: An elderly Female lying in bed in no distress HEENT: Patient did have poor dentition to the lower jaw with a significant to the left lower jaw area no swelling induration or tenderness to the neck area was noticed RESPIRATORY SYSTEM: Unlabored breathing , decreased breath sounds at bases HEART: S1 S2 regular rate and rhythm , ABDOMEN: Soft , no tenderness EXTREMITIES: No edema feet - Labs CBC & Chem 7: 05/11/23 03:57 05/11/23 03:57 Labs: Abnormal Lab Results - Last 24 Hours (Table) 05/10/23 05/10/23 05/10/23 Range/Units 11:56 16:08 20:00 RBC (3.80-5.40) m/uL Hgb (11.4-16.0) gm/dL Hct (34.0-46.0) % MCV (80.0-100.0) fL RDW (11.5-15.5) % Plt Count (150-450) k/uL Lymphocytes # (1.0-4.8) k/uL Sodium (137-145) mmol/L BUN (7-17) mg/dL Creatinine (0.52-1.04) mg/dL Glucose (74-99) mg/dL POC Glucose (mg/dL) 140 H 150 H 166 H (70-110) mg/dL Calcium (8.4-10.2) mg/dL Magnesium (1.6-2.3) mg/dL 05/10/23 05/11/23 05/11/23 Range/Units 23:47 03:57 03:57 RBC 3.00 L (3.80-5.40) m/uL Hgb 9.8 L (11.4-16.0) gm/dL Hct 30.1 L (34.0-46.0) % MCV 100.5 H (80.0-100.0) fL RDW 16.0 H (11.5-15.5) % Plt Count 76 L (150-450) k/uL Lymphocytes # 0.6 L (1.0-4.8) k/uL Sodium 136 L (137-145) mmol/L BUN 72 H (7-17) mg/dL Creatinine 2.41 H (0.52-1.04) mg/dL Glucose 125 H (74-99) mg/dL POC Glucose (mg/dL) 152 H (70-110) mg/dL Calcium 7.7 L (8.4-10.2) mg/dL Magnesium 2.6 H (1.6-2.3) mg/dL 05/11/23 05/11/23 05/11/23 Range/Units 04:26 08:52 11:25 RBC (3.80-5.40) m/uL Hgb (11.4-16.0) gm/dL Hct (34.0-46.0) % MCV (80.0-100.0) fL RDW (11.5-15.5) % Plt Count (150-450) k/uL Lymphocytes # (1.0-4.8) k/uL Sodium (137-145) mmol/L BUN (7-17) mg/dL Creatinine (0.52-1.04) mg/dL Glucose (74-99) mg/dL POC Glucose (mg/dL) 149 H 135 H 145 H (70-110) mg/dL Calcium (8.4-10.2) mg/dL Magnesium (1.6-2.3) mg/dL Microbiology - Last 24 Hours (Table) 05/08/23 14:06 Blood Culture - Preliminary Blood 05/08/23 17:30 Anaerobic Culture - Preliminary Mouth Sabrina albicans 05/08/23 17:30 Gram Stain - Final Mouth Wound Culture - Final Staphylococcus haemolyticus 05/09/23 16:43 Gram Stain - Preliminary Mandible - Right Assessment and Plan (1) Leukocytosis Current Visit: Yes Status: Acute Code(s): D72.829 - ELEVATED WHITE BLOOD CELL COUNT, UNSPECIFIED SNOMED Code(s): 657951118 (2) Allergy to multiple antibiotics Current Visit: Yes Status: Acute Code(s): Z88.1 - ALLERGY STATUS TO OTHER ANTIBIOTIC AGENTS SNOMED Code(s): 837571469 (3) Urinary tract infection Current Visit: No Status: Acute Code(s): N39.0 - URINARY TRACT INFECTION, SITE NOT SPECIFIED SNOMED Code(s): 56798647 Plan: 1patient with sepsis, source likely infected tooth and abscess patient has been evaluated by oral surgery and plan is status post extraction of tooth #29 and drainage of the abscess cultures are currently growing Staphylococcus hemolyticus and Sabrina 2-patient to continue with Invanz however will add daptomycin, Diflucan could not be added because of multiple medication patient is on interacting with it hence we will add Eraxis, to cover for the pathogen covered from abscess cavity at the time of surgical drainage Daughter at the bedside questions were answered Dictation was produced using [employer] software. please excuse any grammatical, word or spelling errors.
[2023-05-11 12:01] LABS: Glucose,Whole Blood 140 mg/dL (70-110)
[2023-05-11] MEDS: ANIDULAFUNGIN 200 MG in SODIUM CHLORIDE 0.9% 200 ML IVPB ONE (12:44)
--- NOTE | 2023-05-11 14:12 | CT ---
EXAMINATION TYPE: CT brain wo con DATE OF EXAM: 05/11/2023 COMPARISON: 05/02/2023 HISTORY: 82-year-old female confusion, AMS, pt is not waking up TECHNIQUE: Examination was done in axial plane without intravenous contrast. Coronal and sagittal r econstructions performed. CT DLP: 1212.4 mGycm Automated exposure control for dose reduction was used. FINDINGS: There is no evidence of acute intracranial hemorrhage, acute ischemic changes, mass, mass-effect, or extra-axial fluid collection. There is no effacement of cerebral sulci or basal subarachnoid cister ns. There is no hydrocephalus. There is no midline shift. Barron-white matter distinction is preserv ed. Old lacunar infarct left basal ganglia. Moderate bifrontal cerebral atrophy. Advanced chronic calcif ications carotid siphons. There are scattered calvarial and skull base artifact especially along the posterior cranial fossa. S lightly heterogeneous appearance to the brain stem probably relating to the prominent skull base emory facts. Consider MRI if patient's symptoms persist. Paranasal sinuses and mastoid air cells well pneumatized. Orbits and globes are intact. IMPRESSION: 1. Moderate bifrontal atrophy. Old lacunar infarct left basal ganglia. 2. Slightly heterogeneous appearance to the brain stem felt to relate to prominent skull base artifac ts. If patient's symptoms persist, consider MRI. 3. Otherwise, no evidence for acute intracranial hemorrhage, mass effect, or midline shift.
[2023-05-11 14:45] LABS: ABG Base Excess -0.1 mmol/L; ABG HCO3 29 mmol/L (21-25); ABG PO2 117 mmHg (83-108); ABG TCO2 32 mmol/L (19-24); Allen Test Performed? Yes
[2023-05-11 14:46] LABS: ABG PCO2 93 mmHg (35-45); ABG PH 7.11 (7.35-7.45)
--- NOTE | 2023-05-11 15:29 | P.PN ---
Subjective Progress Note Date: 05/11/23 This is an 82-year-old female patient with a history of liver cirrhosis, pancytopenia, coronary artery disease with previous stent placement, compression fracture of T7 and T8, acute left posterior eighth rib fracture, thyroid mass, new onset atrial fibrillation and non-ST segment elevation myocardial in farction. She had been admitted back on 04/29/2023 with chest pain and shortness of breath. Echocardiogram revealed impaired left ventricular systolic function with ejection fraction 45%. She was being cared for on the selective care unit. Last evening at a approximately 1145 and rapid response team was called due to hypotension with blood pressure 70 over 40s. She received 100 mL of fluid res uscitation and was transferred to the intensive care unit and initiated on norepinephrine. She is seen today in consultation. She is lethargic. Minimally responsive. She had been calling out in pain earlier. When she was repositioned she settled down. This is felt to be secondary to her compression fractures and rib fractures. He does have a stage II decubitus ulcer. She also has severe suspected neuropathy of the bilateral lower extremities. She is maintaining good O2 saturation in the mid 90s on 2 L/min per nasal cannula. 0.08 mcg/kg/min. She has normal staying at 80 MLS per hour. White count 11.9. Platelets 55,000. Sodium 130. Potassium 4.9. Bicarb 33. BUN 74. Creatinine 2.78. Glucose 137. Urine culture reveals no growth. Currently on ertapenem. X-ray reveals cardiomegaly with mild central vascular congestion and interstitial opacities suggesting edema. Small to moderate bibasilar pleural effusions with adjacent atelectasis. On today's evaluation of 05/09/2023, the patient is being seen for a follow-up. As mentioned, the patient was transferred to the intensive care unit yesterday because of hypotension. She has multiple medical problems including coronary artery disease and previous coronary intervention and stenting and the patient also has liver cirrhosis, and she did encounter a new onset atrial fibrillation. At the same time, the patient is suspected to be septic. The patient has been treated with IV fluids. The patient continues to be on pressors and the patient is currently on norepinephrine running 0.14 mcg/kg/min. IV fluids are running in the rate of 50 cc an hour of normal saline. The patient is currently on IV Invanz. The white cell count today is 11.1. Hemoglobin is at 11 and a platelet count is at 55. Note that the patient has chronic thrombocytopenia related to her chronic liver disease. She also had an acute kidney injury and the creatinine peaked at 3 and currently is downtrending down to 2.65. Potassium level today is at 5.8 with a sodium level of 132. LFTs are abnormal with an alkaline phosphatase of 314, AST of 51 and ALT of 21. Her procalcitonin level was at 2.53 and her free T4 was 1.36 with a TSH of 5.9. UA was abnormal suspicious for an underlying urinary tract infection and cultures are still pen ding for now. Meanwhile, the CAT scan of the abdomen and pelvis that was obtained on 05/04/2023 showed no evidence of any acute intra-abdominal process. Nodular contour of the liver was suggestive of liver cirrhosis and the patient had signs of portal hypertension and cardiomegaly and pulm vascular congestion. The CAT scan of the face that was done on 05/04/2023 showed a soft tissue masslike area in the inferior left neck measuring 47 x 36 mm in size and inflammatory changes along the right mandible without an organizing collection. A head and neck abscess cannot be completely ruled out at this point in time. Neurologically, the patient is encephalopathic. She has episodes of crying and yelling and she remains altered. Her the serum ammonia level was 17. The patient remains on lactulose which is unfortunately being given through the rectal source which is causing significant amount of contamination. At the same time, cardiac rhythm is currently controlled and she remains in atrial fibrillation. She remains on amiodarone 200 mg p.o. twice a day. The Toprol has been placed on hold based on her underlying hypotension. Her echocardiogram from 04/30/2023 showed a ejection fraction of 45%, mild RV dilatation, mild mitral regurgitation, no other significant abnormalities noted. On today's evaluation of 05/10/2023, the patient is being seen for a follow-up. The patient is in the intensive care unit for sepsis and hypotension. Note that the patient underwent an evaluation by the oral surgeon yesterday and the patient was found to have a dental abscess tooth #29 and surgical extraction of the tooth was done and cultures were sent. At the same time, we are suspecting an underlying urine tract infection as another source of sepsis the patient and the patient is currently on IV Invanz as the patient has had previous ESBL producing E. coli in her urine based on the culture that was obtained on 04/26/2023. The patient remains on pressors. She is on norepinephrine running at 0.15 mcg/kg/min. IV fluids are in the form of D5.9 at the rate of 50 cc an hour. Urine output is in order of 30 cc an hour and there is also interval improvement of creatinine which is down to 2.4 with a BUN of 78. Sodium levels at 133 with a potassium level of 5.2. The white cell count is at 10.2 with a hemoglobin of 10.4 and a platelet count of 85. Note that the patient has chronic thrombocytopenia related to her chronic liver disease. She is arousable. She is awake. She is on oxygen at 2 L with a pulse ox of 96%. On 05/11/2023, the patient is more lethargic compared to yesterday. There has been progressive worsening in her mentation and this has been noted throughout the day. In the morning, she was still arousable and later on during the day, the patient became quite obtunded. Based on that, the patient was given a stat CAT scan of the brain that showed no acute intracranial abnormalities. The patient's CAT scan of the brain showed Moderate bifrontal atrophy and old lacunar infarct in the left basal ganglia. There was also slightly heterogeneous appearance of the brainstem felt to be related to a prominent skull base artifact. Subsequently, the patient was given a blood gas that showed a pH of 7.11 with a pCO2 of 93 and pO2 117 and the patient's mental status is most like related to hypercapnic respiratory failure and CO2 narcosis. Chest x-ray that was done earlier this morning that showed cardiomegaly and pulm vascular congestion but the pleural fluid. Fluid balance has been +1 L over the past 24 hours and the patient has been persistently in a positive fluid balance and the patient has diffuse anasarca related to her liver failure and sepsis. The BUN is at 72 with a creatinine of 2.4 and sodium is at 136. WBC count is at 8.2 with a hemoglobin 9.8 and a platelet count of 76. She remains hypotensive. She remains on pressors and the patient is currently on norepinephrine running at 0.09 mcg/kg/min. Her pressor requirements are sligh tly improved compared to yesterday. She remains on D5 normal saline today stopped 50 cc an hour.. In terms of her cultures, the patient's oral culture is showing some anaerobic growth. She also has Sabrina albicans. Blood cultures were negative. Urine cultures also been negative. The patient remains on IV antibiotics and antibiotics has been modified to a combination of IV Eraxis, daptomycin and IV Invanz. Objective - Vital Signs Vital signs: Vital Signs Temp 97.5 F L 05/11/23 08:00 Pulse 89 05/11/23 08:15 Resp 17 05/11/23 08:15 BP 101/50 05/11/23 08:15 Pulse Ox 91 L 05/11/23 08:15 FiO2 Intake & Output 05/10/23 05/11/23 05/11/23 18:59 06:59 18:59 Intake Total 1255.011 873.321 60 Output Total 730 380 30 Balance 525.011 493.321 30 Weight 97.8 kg Intake: IV 770 660 60 .9 kvo 120 110 10 Dextrose 5%-0.9% NaCl 1, 650 550 50 000 ml @ 50 mls/hr IV . Q20H RONI Rx#:[id number] Intake, IV Titration 485.011 213.321 Amount ACETAMINOPHEN IV (For NPO 100 ) 1,000 mg In Empty Bag 1 bag @ 400 mls/hr IVPB Q6HR PRN Rx#:[id number] Ertapenem 0.5 gm In 50 Sodium Chloride 0.9% 50 ml @ 100 mls/hr IVPB DAILY RONI Rx#:[id number] Norepinephrine 4 mg In 335.011 213.321 Sodium Chloride 0.9% 250 ml @ 0.03 MCG/KG/MIN 6.74 mls/hr IV .Q24H RONI Rx#: [id number] Output: Urine 730 380 30 Other: Voiding Method Indwelling Catheter Indwelling Catheter - Exam GENERAL EXAM: Encephalopathic, lethargic, quite obtunded during the day and currently she is sluggishly responsive. HEAD: Normocephalic. EYES: Normal reaction of pupils, equal size. NOSE: Clear with pink turbinates. THROAT: No erythema or exudates. Unable to feel any collection in her mandibular area or neck area to suggest any abscess or masses. She does have however very poor dental condition with multiple decayed teeth and several teeth are missing. The incisors in the lower mandible are rotten and broken and decayed and the gum is pale with occasional areas of patchy redness. Note that the patient had an extraction of tooth #29 and the stitches are in place NECK: No masses, no JVD. CHEST: No chest wall deformity. LUNGS: Equal air entry with bibasilar crackles. CVS: S1 and S2 normal with no audible murmur, regular rhythm. ABDOMEN: No hepatosplenomegaly, normal bowel sounds, no guarding or rigidity. SPINE: No scoliosis or deformity SKIN: Stage II coccyx ulcer CENTRAL NERVOUS SYSTEM: Diminished level of consciousness. Withdraws only to deep painful stimulation. Unable to communicate at this point in time. EXTREMITIES: There is 3+ peripheral edema. No clubbing, no cyanosis. Peripheral pulses are intact. - Labs CBC & Chem 7: 05/11/23 03:57 05/11/23 03:57 Labs: Abnormal Lab Results - Last 24 Hours (Table) 05/10/23 05/10/23 05/10/23 Range/Units 11:56 16:08 20:00 RBC (3.80-5.40) m/uL Hgb (11.4-16.0) gm/dL Hct (34.0-46.0) % MCV (80.0-100.0) fL RDW (11.5-15.5) % Plt Count (150-450) k/uL Lymphocytes # (1.0-4.8) k/uL Sodium (137-145) mmol/L BUN (7-17) mg/dL Creatinine (0.52-1.04) mg/dL Glucose (74-99) mg/dL POC Glucose (mg/dL) 140 H 150 H 166 H (70-110) mg/dL Calcium (8.4-10.2) mg/dL Magnesium (1.6-2.3) mg/dL 05/10/23 05/11/23 05/11/23 Range/Units 23:47 03:57 03:57 RBC 3.00 L (3.80-5.40) m/uL Hgb 9.8 L (11.4-16.0) gm/dL Hct 30.1 L (34.0-46.0) % MCV 100.5 H (80.0-100.0) fL RDW 16.0 H (11.5-15.5) % Plt Count 76 L (150-450) k/uL Lymphocytes # 0.6 L (1.0-4.8) k/uL Sodium 136 L (137-145) mmol/L BUN 72 H (7-17) mg/dL Creatinine 2.41 H (0.52-1.04) mg/dL Glucose 125 H (74-99) mg/dL POC Glucose (mg/dL) 152 H (70-110) mg/dL Calcium 7.7 L (8.4-10.2) mg/dL Magnesium 2.6 H (1.6-2.3) mg/dL 05/11/23 Range/Units 04:26 RBC (3.80-5.40) m/uL Hgb (11.4-16.0) gm/dL Hct (34.0-46.0) % MCV (80.0-100.0) fL RDW (11.5-15.5) % Plt Count (150-450) k/uL Lymphocytes # (1.0-4.8) k/uL Sodium (137-145) mmol/L BUN (7-17) mg/dL Creatinine (0.52-1.04) mg/dL Glucose (74-99) mg/dL POC Glucose (mg/dL) 149 H (70-110) mg/dL Calcium (8.4-10.2) mg/dL Magnesium (1.6-2.3) mg/dL Microbiology - Last 24 Hours (Table) 05/08/23 14:06 Blood Culture - Preliminary Blood 05/08/23 17:30 Anaerobic Culture - Preliminary Mouth Sabrina albicans 05/08/23 17:30 Gram Stain - Final Mouth Wound Culture - Final Staphylococcus haemolyticus 05/09/23 16:43 Gram Stain - Preliminary Mandible - Right Assessment and Plan Plan: Altered mentation with diminished level of consciousness and the patient is quite obtunded at this point in time. This is related to hypercapnic respiratory failure and CO2 narcosis. Please refer to the blood gas that shows an acute hypercapnic respiratory failure most likely due to fluid overload and development of bilateral pleural effusion. The patient will be started on BiPAP at a pressure of 12 over 5 cm of water and FiO2 will be titrated to maintain saturation above 90%. May require intubation mechanical ventilation. Family was immediately updated on her condition. CAT scan of the brain is showing atrophy without any acute abnormalities. Noted the patient's ammonia level is improved and the patient has been maintained on lactulose. Hepatic encephalopathy may be potentially contributing to some of her altered mentation and diminished level of consciousness. Sepsis with secondary hypotension requiring pressor support secondary to sepsis of unclear etiology, possible dental abscess, questionable urinary tract infection with previous cultures of ESBL the patient currently is on norepinephrine running at 0. 09 mcg/kg/min and the patient is also being gently hydrated with IV fluids and she is currently on L0forkbwa saline at rate of 50 cc an hour. She is still pressor dependent. Echocardiogram that was done on 04/30/2023 showed an ejection fraction of 45% and the patient does not have any significant valvular abnormalities. Oral cultures are positive for anaerobes and Sabrina. Blood cultures urine cultures have been negative. Patient has chronic gross decay of all remaining lower teeth. Appears to have spontaneous drainage of pus emanating from the sulcus of tooth #29 which was cultured. The patient is status post extraction of tooth #[address] Fine and cultures were also sent. Bilateral pleural effusion right more than left Acute hypoxic respiratory failure, please refer to the blood case and the patient will be transition to a BiPAP Acute kidney injury secondary to above, creatinine is stable and the patient continues to be oliguric and the patient has been in positive fluid balance Acute hyperkalemia, improved None anion gap metabolic acidosis, improved Acute pain secondary to compression fractures of T7 and T8 and acute left posterior eighth rib fracture Neuropathy Stage II decubitus ulcer History of liver cirrhosis Pancytopenia Non-ST segment elevation myocardial infarction New onset atrial fibrillation with controlled ventricular response 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 Plan: Start the patient on BiPAP pressure of 12/5 and titrate FiO2 to maintain saturation above 90%. Contacted the family. May need intubation mechanical ventilation based on her overall condition and response to BiPAP Chest x-ray was noted IV fluids with D5 normal saline at rate of 50 Continue pressors, currently on 0.09 mcg/kg/min of norepinephrine Wean off pressors if possible keeping a mean arterial pressure above 60 Continue IV Invanz, Eraxis and daptomycin and infectious disease on the case Pending further cultures and the patient had extraction of tooth #29 Monitor the white count Monitor mental status Keep the patient n.p.o. for now Unable to diurese the patient as the patient is quite hypotensive. Neverthele ss, the oxygen therapy teacher opted to start the patient on Lasix 60 mg IV every 12 hours and maintain the midodrine and the pressors May ultimately need hemodialysis and this will be communicated with nephrology We will continue to follow and make further recommendations based on her clinical status Condition remains critical and the prognosis poor based on the above-mentioned comorbidities Condition is critical in this evaluation with a more than 30 minutes. Time with Patient: Greater than 30
[2023-05-11 16:48] LABS: Glucose,Whole Blood 127 mg/dL (70-110)
[2023-05-11 17:42] LABS: ABG Base Excess 0.6 mmol/L; ABG HCO3 29 mmol/L (21-25); ABG Oxygen Saturation 93.8 % (94-97); ABG PO2 68 mmHg (83-108); ABG TCO2 31 mmol/L (19-24)
[2023-05-11 17:43] LABS: ABG PCO2 78 mmHg (35-45); ABG PH 7.18 (7.35-7.45)
[2023-05-11] MEDS: HEPARIN SODIUM 1,000 UN/ML (10ML VL) MISCELLANE ONE (17:44)
[2023-05-11] MEDS: LIDOCAINE 1% INJ 10MG/ML (20 ML MDV) SQ ONE (17:44)
[2023-05-11] MEDS: HYDROmorphone 1 MG/ML 1 ML SYRINGE IVP STA (17:45)
--- NOTE | 2023-05-11 17:55 | XR ---
EXAMINATION TYPE: XR chest 1V portable DATE OF EXAM: 05/11/2023 5:38 PM CLINICAL INDICATION:Female, 82 years old with history of dialysis catheter; [facility] COMPARISON: Chest radiographs from 05/03/2023. TECHNIQUE: XR chest 1V portable Frontal view of the chest. FINDINGS: Lungs/Pleura: No evidence of focal consolidation or pneumothorax. Blunting of the costophrenic angles is present. Pulmonary vascularity: Pulmonary vascular congestion. Heart/mediastinum: Cardiomediastinal silhouette is enlarged and stable. Musculoskeletal: No acute osseous pathology. Other findings: None Lines/Tubes: Right internal jugular central venous catheter with distal tip at the cavoatrial junction. IMPRESSION: 1. Right dialysis catheter with tip in appropriate position near the cavoatrial junction/right atriu m. 2. Cardiomegaly with bilateral pleural effusions and pulmonary vascular congestion.
--- NOTE | 2023-05-11 20:41 | XR ---
EXAM: XR chest 1V portable CLINICAL INDICATION:Female, 82 years old with history of tube and line placement; [facility] COMPARISON: Earlier today 5:24 PM TECHNIQUE: Chest single view. FINDINGS: Lines/tubes/devices: ET tube has been placed with its tip about 8.5 mm above the lizzie and points sl ightly towards the right mainstem bronchus. Placement of left IJ central venous line with tip over th e SVC/RA junction. Right IJ approach dialysis catheter with tip again seen near the SVC/RA junction. NG/OG tube has been placed, traverses below the diaphragm, extending into the left abdomen with the t ip beyond the field of view. EKG leads over the chest. Cardiomediastinum: Cardiac silhouette appears partially obscured but grossly stable, likely mildly enlarged. Atheroscler otic calcifications of the aorta. Unremarkable mediastinal silhouette. Vasculature: Similar central vascular congestion and interstitial prominence suggesting edema. Lungs/pleura: Bibasilar pleural/parenchymal opacities with blunting of the costophrenic angles appear slightly incr eased. Haziness of the lungs on this supine view may be due to layering fluid. No pneumothorax is vis ible on this exam. Bones/soft tissues: Bony thorax appears grossly unchanged as seen. Regional soft tissues appear unremarkable. IMPRESSION: 1. Lines and tubes in place, as above. 2. Recommend 3 cm retraction of the ET tube. 3. Cardiomegaly with pulmonary vascular congestion redemonstrated. Increased bilateral opacities con sistent with small to moderate pleural effusions and basilar atelectasis or infiltrates.
[2023-05-11 20:56] LABS: ABG Base Excess 0.1 mmol/L; ABG HCO3 27 mmol/L (21-25); ABG Oxygen Saturation 95.8 % (94-97); ABG PCO2 55 mmHg (35-45); ABG PH 7.29 (7.35-7.45); ABG PO2 67 mmHg (83-108); ABG TCO2 28 mmol/L (19-24); Allen Test Performed? Yes
--- NOTE | 2023-05-11 20:56 | P.PCN ---
Date of Procedure: 05/11/23 Operative Findings: Preoperative Diagnosis: Acute hypoxic/hypercapnic respiratory failure Postoperative Diagnosis: same Central line insertion intubation Anesthesia: MAC Surgeon: Ashely Huynh Estimated Blood Loss (ml): 0 Pathology: none sent Disposition: ICU Operative Findings: Indication: Hemodynamic monitoring/Intravenous access. A time-out was completed verifying correct patient, procedure, site, positioning, and implant(s) or special equipment if applicable. The patient was placed in a dependent position appropriate for central line placement based on the vein to be cannulated. The patients left neck was prepped and draped in sterile fashion. 1% Lidocaine was used to anesthetize the surrounding skin area. A triple lumen 9F Cordis catheter was introduced into the left internal jugular using Seldinger technique. The catheter was threaded smoothly over the guide wire and appropriate blood return was obtained. Each lumen of the catheter was evacuated of air and flushed with sterile saline. The catheter was then sutured in place to the skin and a sterile dressing applied. Perfusion to the extremity distal to the point of catheter insertion was checked and found to be adequate. The patient tolerated the procedure well and there were no complications. Indication: Respiratory compromise. A time-out was completed verifying correct patient, procedure, site, positioning, and implant(s) or special equipment if applicable. The patient was positioned appropriately and a # 8 endotracheal tube was placed under direct laryngoscopy. The tube was anchored at 22 cm at the teeth. Correct placement was confirmed by presence of bilateral breath sounds without air sounds in the abdomen on auscultation. An end-tidal CO2 monitor was also used to confirm tracheal placement of the ET tube. A chest x-ray was ordered to assess for pneumothorax and verify endotracheal tube placement. The patient tolerated the procedure well and there were no complications.
[2023-05-11] MEDS: propofoL 100 ML IV ONE (21:02)
[2023-05-11 21:13] LABS: Glucose,Whole Blood 137 mg/dL (70-110)
[2023-05-11] MEDS: VASOPRESSIN 20 UNIT in SODIUM CHLORIDE 0.9% 50 ML IV SCH (21:36)
--- NOTE | 2023-05-11 21:53 | CONS ---
CONSULTATION HISTORY OF PRESENT ILLNESS: This is an 82-year-old female, the patient was seen in the intensive care unit. Called in for placement of a dialysis catheter. The patient has history of hyperlipidemia, thrombocytopenia, history of cirrhosis of liver, acute kidney injury. PHYSICAL EXAMINATION: GENERAL: Patient has nasal cannula. CHEST: Crackles bilateral. HEART: First and second sounds present. ABDOMEN: Protuberant. : Both groins had some excoriation and some fungal infection in the right and left inguinal area. PLAN: Placement of the dialysis catheter, right jugular approach. Risks and complications were discussed. MMODL / IJN: [id number] /
--- NOTE | 2023-05-11 22:29 | PCN ---
PROCEDURE NOTE PREOPERATIVE DIAGNOSIS: Acute on chronic renal failure. POSTOPERATIVE DIAGNOSIS: Acute on chronic renal failure. PROCEDURE PERFORMED: Ultrasound-guided 19 cm dialysis catheter placed, right jugular approach. DESCRIPTION OF PROCEDURE: The patient was seen in the intensive care unit. Right side of the neck was prepped and drapes applied in a sterile manner. 1% lidocaine infiltrated. Ultrasound-guided micropuncture introduced to the right jugular vein micropuncture, guidewire was passed. After that we passed 4-Malian sheath and we passed a regular guidewire without any resistance. Dilator was advanced on top of the guidewire. Then we placed a 19-cm dialysis catheter, right jugular approach, flushed with heparin saline and hep-locked, secured with 3-0 nylon. We did order chest x-ray stat. MMODAubrey / ABBIEN: [id number] /
--- NOTE | 2023-05-11 23:24 | P.PCN ---
Date of Procedure: 05/11/23 Preoperative Diagnosis: Acute hypoxemic and hypercapnic respiratory failure; hypotension and shock Postoperative Diagnosis: Acute hypoxemic and hypercapnic respiratory failure; hypotension and shock Procedure(s) Performed: Insertion of a left brachial arterial line Description of Procedure: Informed consent was obtained, and a procedural timeout was performed . The patient was placed in supine position. The left brachial region was prepared in a sterile fashion, and a sterile drape was applied. The left brachial artery was palpated, easily cannulated, and a guidewire was placed. A Cook catheter was inserted over the guidewire, and the guidewire was removed. There was good arterial blood flow, good arterial waveform, and no complications. The line was secured with using a 3-0 silk suture.
[2023-05-11] MEDS: CHLORHEXIDINE GLUCONATE 15 ML CUP MUCOUS MEM SCH (23:57)
[2023-05-12 00:34] LABS: Glucose,Whole Blood 118 mg/dL (70-110)
[2023-05-12 03:45] LABS: Glucose,Whole Blood 106 mg/dL (70-110)
[2023-05-12 04:33] LABS: Hepatitis B Surface AB- Quant 3.5 mIU/mL; Hepatitis B Surface Antigen Nonreactive
[2023-05-12 04:39] LABS: Anisocytosis Slight; Basophils % (A) 0 %; Eosinophils # (A) 0.1 k/uL (0-0.7); Eosinophils % (A) 1 %; HCT 27.4 % (34.0-46.0); HGB 9.8 gm/dL (11.4-16.0); Hypochromasia Slight; Lymphocytes # (A) 0.5 k/uL (1.0-4.8); Lymphocytes % (A) 4 %; MCH 35.3 pg (25.0-35.0); Macrocytosis Slight; Mean Platelet Volume 9.7; Monocytes # (A) 0.7 k/uL (0-1.0); Monocytes % (A) 6 %; Neutrophils # (A) 10.7 k/uL (1.3-7.7); Neutrophils % (A) 88 %; Platelet Count 103 k/uL (150-450); Poikilocytosis Moderate; RBC 2.79 m/uL (3.80-5.40); RDW 16.8 % (11.5-15.5); WBC 12.2 k/uL (3.8-10.6)
[2023-05-12 05:10] LABS: ALT 20 U/L (4-34); AST 53 U/L (14-36); African American GFR (CKD) 32 (>60 ml/min/1.73 sqM); Albumin 1.9 g/dL (3.5-5.0); Alkaline Phosphatase 240 U/L (38-126); Anion Gap 6 mmol/L; Blood Urea Nitrogen 56 mg/dL (7-17); Calcium 7.6 mg/dL (8.4-10.2); Carbon Dioxide 24 mmol/L (22-30); Chloride 105 mmol/L (98-107); Glucose 100 mg/dL (74-99); Magnesium 2.2 mg/dL (1.6-2.3); Non-African American GFR(CKD) 28 (>60 ml/min/1.73 sqM); Potassium 4.5 mmol/L (3.5-5.1); Sodium 135 mmol/L (137-145); Total Bilirubin 2.1 mg/dL (0.2-1.3); Total Protein 4.4 g/dL (6.3-8.2)
[2023-05-12 06:39] LABS: ABG Base Excess 4.8 mmol/L; ABG HCO3 27 mmol/L (21-25); ABG Oxygen Saturation 97.9 % (94-97); ABG PCO2 29 mmHg (35-45); ABG PO2 77 mmHg (83-108); ABG TCO2 28 mmol/L (19-24); Allen Test Performed? Yes
[2023-05-12 06:41] LABS: ABG PH 7.58 (7.35-7.45)
--- NOTE | 2023-05-12 08:27 | P.PN ---
Subjective Progress Note Date: 05/12/23 This is an 82-year-old female patient with a history of liver cirrhosis, pancytopenia, coronary artery disease with previous stent placement, compression fracture of T7 and T8, acute left posterior eighth rib fracture, thyroid mass, new onset atrial fibrillation and non-ST segment elevation myocardial in farction. She had been admitted back on 04/29/2023 with chest pain and shortness of breath. Echocardiogram revealed impaired left ventricular systolic function with ejection fraction 45%. She was being cared for on the selective care unit. Last evening at a approximately 1145 and rapid response team was called due to hypotension with blood pressure 70 over 40s. She received 100 mL of fluid res uscitation and was transferred to the intensive care unit and initiated on norepinephrine. She is seen today in consultation. She is lethargic. Minimally responsive. She had been calling out in pain earlier. When she was repositioned she settled down. This is felt to be secondary to her compression fractures and rib fractures. He does have a stage II decubitus ulcer. She also has severe suspected neuropathy of the bilateral lower extremities. She is maintaining good O2 saturation in the mid 90s on 2 L/min per nasal cannula. 0.08 mcg/kg/min. She has normal staying at 80 MLS per hour. White count 11.9. Platelets 55,000. Sodium 130. Potassium 4.9. Bicarb 33. BUN 74. Creatinine 2.78. Glucose 137. Urine culture reveals no growth. Currently on ertapenem. X-ray reveals cardiomegaly with mild central vascular congestion and interstitial opacities suggesting edema. Small to moderate bibasilar pleural effusions with adjacent atelectasis. On today's evaluation of 05/09/2023, the patient is being seen for a follow-up. As mentioned, the patient was transferred to the intensive care unit yesterday because of hypotension. She has multiple medical problems including coronary artery disease and previous coronary intervention and stenting and the patient also has liver cirrhosis, and she did encounter a new onset atrial fibrillation. At the same time, the patient is suspected to be septic. The patient has been treated with IV fluids. The patient continues to be on pressors and the patient is currently on norepinephrine running 0.14 mcg/kg/min. IV fluids are running in the rate of 50 cc an hour of normal saline. The patient is currently on IV Invanz. The white cell count today is 11.1. Hemoglobin is at 11 and a platelet count is at 55. Note that the patient has chronic thrombocytopenia related to her chronic liver disease. She also had an acute kidney injury and the creatinine peaked at 3 and currently is downtrending down to 2.65. Potassium level today is at 5.8 with a sodium level of 132. LFTs are abnormal with an alkaline phosphatase of 314, AST of 51 and ALT of 21. Her procalcitonin level was at 2.53 and her free T4 was 1.36 with a TSH of 5.9. UA was abnormal suspicious for an underlying urinary tract infection and cultures are still pen ding for now. Meanwhile, the CAT scan of the abdomen and pelvis that was obtained on 05/04/2023 showed no evidence of any acute intra-abdominal process. Nodular contour of the liver was suggestive of liver cirrhosis and the patient had signs of portal hypertension and cardiomegaly and pulm vascular congestion. The CAT scan of the face that was done on 05/04/2023 showed a soft tissue masslike area in the inferior left neck measuring 47 x 36 mm in size and inflammatory changes along the right mandible without an organizing collection. A head and neck abscess cannot be completely ruled out at this point in time. Neurologically, the patient is encephalopathic. She has episodes of crying and yelling and she remains altered. Her the serum ammonia level was 17. The patient remains on lactulose which is unfortunately being given through the rectal source which is causing significant amount of contamination. At the same time, cardiac rhythm is currently controlled and she remains in atrial fibrillation. She remains on amiodarone 200 mg p.o. twice a day. The Toprol has been placed on hold based on her underlying hypotension. Her echocardiogram from 04/30/2023 showed a ejection fraction of 45%, mild RV dilatation, mild mitral regurgitation, no other significant abnormalities noted. On today's evaluation of 05/10/2023, the patient is being seen for a follow-up. The patient is in the intensive care unit for sepsis and hypotension. Note that the patient underwent an evaluation by the oral surgeon yesterday and the patient was found to have a dental abscess tooth #29 and surgical extraction of the tooth was done and cultures were sent. At the same time, we are suspecting an underlying urine tract infection as another source of sepsis the patient and the patient is currently on IV Invanz as the patient has had previous ESBL producing E. coli in her urine based on the culture that was obtained on 04/26/2023. The patient remains on pressors. She is on norepinephrine running at 0.15 mcg/kg/min. IV fluids are in the form of D5.9 at the rate of 50 cc an hour. Urine output is in order of 30 cc an hour and there is also interval improvement of creatinine which is down to 2.4 with a BUN of 78. Sodium levels at 133 with a potassium level of 5.2. The white cell count is at 10.2 with a hemoglobin of 10.4 and a platelet count of 85. Note that the patient has chronic thrombocytopenia related to her chronic liver disease. She is arousable. She is awake. She is on oxygen at 2 L with a pulse ox of 96%. On 05/11/2023, the patient is more lethargic compared to yesterday. There has been progressive worsening in her mentation and this has been noted throughout the day. In the morning, she was still arousable and later on during the day, the patient became quite obtunded. Based on that, the patient was given a stat CAT scan of the brain that showed no acute intracranial abnormalities. The patient's CAT scan of the brain showed Moderate bifrontal atrophy and old lacunar infarct in the left basal ganglia. There was also slightly heterogeneous appearance of the brainstem felt to be related to a prominent skull base artifact. Subsequently, the patient was given a blood gas that showed a pH of 7.11 with a pCO2 of 93 and pO2 117 and the patient's mental status is most like related to hypercapnic respiratory failure and CO2 narcosis. Chest x-ray that was done earlier this morning that showed cardiomegaly and pulm vascular congestion but the pleural fluid. Fluid balance has been +1 L over the past 24 hours and the patient has been persistently in a positive fluid balance and the patient has diffuse anasarca related to her liver failure and sepsis. The BUN is at 72 with a creatinine of 2.4 and sodium is at 136. WBC count is at 8.2 with a hemoglobin 9.8 and a platelet count of 76. She remains hypotensive. She remains on pressors and the patient is currently on norepinephrine running at 0.09 mcg/kg/min. Her pressor requirements are sligh tly improved compared to yesterday. She remains on D5 normal saline today stopped 50 cc an hour.. In terms of her cultures, the patient's oral culture is showing some anaerobic growth. She also has Sabrina albicans. Blood cultures were negative. Urine cultures also been negative. The patient remains on IV antibiotics and antibiotics has been modified to a combination of IV Eraxis, daptomycin and IV Invanz. on today's evaluation of 05/12/2023, I am seeing the patient for a follow-up. Events from yesterday were noted. The patient went into hypercapnic respiratory failure and she became altered and obtunded and based on that, and that intubating the patient and placed on mechanical ventilator for acute on chronic hypoxic and hypercapnic respiratory failure. Also, the patient was in significant fluid overload. Immediately postintubation, dialysis catheter was obtained and the patient was started on hemodialysis with ultrafiltration and a total of 2 L of fluid was removed yesterday. This morning, the patient remains intubated on the mechanical ventilator. She is currently on propofol running at 40 mcg/kg/min. She is on assist-control with rate of 26 with a tidal volume of 400 FiO2 40% with a PEEP of 5. Blood gas from this morning showed respiratory alkalosis with a pH of 7.58 and a pCO2 of 29 and pO2 of 77. Based on that, the respiratory rate was dropped down to 77. Chest x-ray from today showing cardiomegaly. There is bilateral pleural effusion worse on the right which is slightly improved compared to yesterday. ET tube is in a good location and the patient also has a triple-lumen catheter in her left IJ and a dialysis catheter in her right IJ. She is still hypotensive. Norepinephrine is running at 0.16 mcg/kg/min. The patient is also on physiologic dose of vasopressin A arterial line catheter was also inserted yesterday and her blood pressure is stable for now with a mean arterial pressure of around 80. Her cardiac rhythm is atrial fibrillation. In terms of the rest of the blood work, the patient has a white cell count of 12.2 with a hemoglobin 9.8 and a platelet count of 103. BUN is at 56 and the creatinine is up down to 1.7. Potassium is down to 4.5 and his sodium level is at 135. Her serum ammonia level is at 23. She continues to melvin ve significant amount of third spacing, peripheral edema and diffuse anasarca. In terms of her antibiotic coverage, the patient is currently on a combination of IV Invanz, daptomycin and Eraxis. Enteral feeding has not been started yet. Objective - Vital Signs Vital signs: Vital Signs Temp 98.2 F 05/12/23 03:00 Pulse 80 05/12/23 06:30 Resp 26 H 05/12/23 06:30 BP 110/49 05/12/23 03:15 Pulse Ox 97 05/12/23 06:30 FiO2 40 05/12/23 06:44 Intake & Output 05/11/23 05/12/23 05/12/23 18:59 06:59 18:59 Intake Total 878.792 6827.009 Output Total 410 3057 Balance 585.687 -1292.991 Weight 97.8 kg 99.2 kg Intake: IV 810 650 .9 kvo 10 Anidulafungin 100 mg In 100 Sodium Chloride 0.9% 100 ml @ 84 mls/hr IVPB DAILY @1300 [facility] Rx#:[id number] DAPTOmycin 400 mg In 50 Sodium Chloride 0.9% 50 ml @ 100 mls/hr IVPB Q48H [facility] Rx#:[id number] Dextrose 5%-0.9% NaCl 1, 600 650 000 ml @ 50 mls/hr IV . Q20H [facility] Rx#:[id number] Ertapenem 0.5 gm In 50 Sodium Chloride 0.9% 50 ml @ 100 mls/hr IVPB DAILY [facility] Rx#:[id number] Intake, IV Titration 185.687 614.009 Amount Norepinephrine 4 mg In 185.687 432.045 Sodium Chloride 0.9% 250 ml @ 0.03 MCG/KG/MIN 6.74 mls/hr IV .Q24H [facility] Rx#: [id number] Vasopressin 20 unit In 42.305 Sodium Chloride 0.9% 50 ml @ 0.03 UNITS/MIN 4.59 mls/hr IV .[id number] [facility] Rx# :[id number] propofoL 1,000 mg In 139.659 Empty Bag 1 bag @ 15 MCG/ KG/MIN 8.802 mls/hr IV . [id number] [facility] Rx#:[id number] Hemodialysis 500 Output: Urine 410 557 Hemodialysis 2500 Other: Voiding Method Indwelling Catheter Indwelling Catheter ABP, PAP, CO, CI - Last Documented Arterial Blood Pressure 145/42 - Exam GENERAL EXAM:, Comfortable, sedated, currently on propofol, intubated on mechanical ventilator. Orogastric and orotracheal tube are both in place. HEAD: Normocephalic. EYES: Normal reaction of pupils, equal size. NOSE: Clear with pink turbinates. THROAT: No erythema or exudates. Unable to feel any collection in her mandibular area or neck area to suggest any abscess or masses. She does have however very poor dental condition with multiple decayed teeth and several teeth are missing. The incisors in the lower mandible are rotten and broken and decayed and the gum is pale with occasional areas of patchy redness. Note that the patient had an extraction of tooth #29 and the stitches are in place NECK: No masses, no JVD. The patient has a left IJ triple-lumen catheter in the right IJ dialysis catheter. CHEST: No chest wall deformity. LUNGS: Equal air entry with bibasilar crackles. CVS: S1 and S2 normal with no audible murmur, regular rhythm. ABDOMEN: No hepatosplenomegaly, normal bowel sounds, no guarding or rigidity. There is evidence of anterior abdominal wall edema and ascites. SPINE: No scoliosis or deformity SKIN: Stage II coccyx ulcer CENTRAL NERVOUS SYSTEM: Diminished level of consciousness. Withdraws only to deep painful stimulation. Unable to communicate at this point in time. EXTREMITIES: There is 3+ peripheral edema. No clubbing, no cyanosis. Periphera l pulses are intact. - Labs CBC & Chem 7: 05/12/23 04:25 05/12/23 04:25 Labs: Abnormal Lab Results - Last 24 Hours (Table) 05/11/23 05/11/23 05/11/23 Range/Units 08:52 08:56 11:25 WBC (3.8-10.6) k/uL RBC (3.80-5.40) m/uL Hgb (11.4-16.0) gm/dL Hct (34.0-46.0) % MCH (25.0-35.0) pg RDW (11.5-15.5) % Plt Count (150-450) k/uL Neutrophils # (1.3-7.7) k/uL Lymphocytes # (1.0-4.8) k/uL ABG pH (7.35-7.45) ABG pCO2 (35-45) mmHg ABG pO2 (83-108) mmHg ABG HCO3 (21-25) mmol/L ABG Total CO2 (19-24) mmol/L ABG O2 Saturation (94-97) % Sodium (137-145) mmol/L BUN (7-17) mg/dL Creatinine (0.52-1.04) mg/dL Glucose (74-99) mg/dL POC Glucose (mg/dL) 135 H 145 H (70-110) mg/dL Calcium (8.4-10.2) mg/dL Total Bilirubin (0.2-1.3) mg/dL AST (14-36) U/L Alkaline Phosphatase (38-126) U/L Total Protein (6.3-8.2) g/dL Albumin (3.5-5.0) g/dL Procalcitonin 1.26 H (0.02-0.09) ng/mL 05/11/23 05/11/23 05/11/23 Range/Units 11:59 14:40 16:47 WBC (3.8-10.6) k/uL RBC (3.80-5.40) m/uL Hgb (11.4-16.0) gm/dL Hct (34.0-46.0) % MCH (25.0-35.0) pg RDW (11.5-15.5) % Plt Count (150-450) k/uL Neutrophils # (1.3-7.7) k/uL Lymphocytes # (1.0-4.8) k/uL ABG pH 7.11 L* (7.35-7.45) ABG pCO2 93 H* (35-45) mmHg ABG pO2 117 H (83-108) mmHg ABG HCO3 29 H (21-25) mmol/L ABG Total CO2 32 H (19-24) mmol/L ABG O2 Saturation 98.0 H (94-97) % Sodium (137-145) mmol/L BUN (7-17) mg/dL Creatinine (0.52-1.04) mg/dL Glucose (74-99) mg/dL POC Glucose (mg/dL) 140 H 127 H (70-110) mg/dL Calcium (8.4-10.2) mg/dL Total Bilirubin (0.2-1.3) mg/dL AST (14-36) U/L Alkaline Phosphatase (38-126) U/L Total Protein (6.3-8.2) g/dL Albumin (3.5-5.0) g/dL Procalcitonin (0.02-0.09) ng/mL 05/11/23 05/11/23 05/11/23 Range/Units 17:38 20:51 21:11 WBC (3.8-10.6) k/uL RBC (3.80-5.40) m/uL Hgb (11.4-16.0) gm/dL Hct (34.0-46.0) % MCH (25.0-35.0) pg RDW (11.5-15.5) % Plt Count (150-450) k/uL Neutrophils # (1.3-7.7) k/uL Lymphocytes # (1.0-4.8) k/uL ABG pH 7.18 L* 7.29 L (7.35-7.45) ABG pCO2 78 H* 55 H (35-45) mmHg ABG pO2 68 L 67 L (83-108) mmHg ABG HCO3 29 H 27 H (21-25) mmol/L ABG Total CO2 31 H 28 H (19-24) mmol/L ABG O2 Saturation 93.8 L (94-97) % Sodium (137-145) mmol/L BUN (7-17) mg/dL Creatinine (0.52-1.04) mg/dL Glucose (74-99) mg/dL POC Glucose (mg/dL) 137 H (70-110) mg/dL Calcium (8.4-10.2) mg/dL Total Bilirubin (0.2-1.3) mg/dL AST (14-36) U/L Alkaline Phosphatase (38-126) U/L Total Protein (6.3-8.2) g/dL Albumin (3.5-5.0) g/dL Procalcitonin (0.02-0.09) ng/mL 05/12/23 05/12/23 05/12/23 Range/Units 00:32 04:25 04:25 WBC 12.2 H (3.8-10.6) k/uL RBC 2.79 L (3.80-5.40) m/uL Hgb 9.8 L (11.4-16.0) gm/dL Hct 27.4 L (34.0-46.0) % MCH 35.3 H (25.0-35.0) pg RDW 16.8 H (11.5-15.5) % Plt Count 103 L (150-450) k/uL Neutrophils # 10.7 H (1.3-7.7) k/uL Lymphocytes # 0.5 L (1.0-4.8) k/uL ABG pH (7.35-7.45) ABG pCO2 (35-45) mmHg ABG pO2 (83-108) mmHg ABG HCO3 (21-25) mmol/L ABG Total CO2 (19-24) mmol/L ABG O2 Saturation (94-97) % Sodium 135 L (137-145) mmol/L BUN 56 H (7-17) mg/dL Creatinine 1.71 H (0.52-1.04) mg/dL Glucose 100 H (74-99) mg/dL POC Glucose (mg/dL) 118 H (70-110) mg/dL Calcium 7.6 L (8.4-10.2) mg/dL Total Bilirubin 2.1 H (0.2-1.3) mg/dL AST 53 H (14-36) U/L Alkaline Phosphatase 240 H (38-126) U/L Total Protein 4.4 L (6.3-8.2) g/dL Albumin 1.9 L (3.5-5.0) g/dL Procalcitonin (0.02-0.09) ng/mL 05/12/23 Range/Units 06:34 WBC (3.8-10.6) k/uL RBC (3.80-5.40) m/uL Hgb (11.4-16.0) gm/dL Hct (34.0-46.0) % MCH (25.0-35.0) pg RDW (11.5-15.5) % Plt Count (150-450) k/uL Neutrophils # (1.3-7.7) k/uL Lymphocytes # (1.0-4.8) k/uL ABG pH 7.58 H* (7.35-7.45) ABG pCO2 29 L (35-45) mmHg ABG pO2 77 L (83-108) mmHg ABG HCO3 27 H (21-25) mmol/L ABG Total CO2 28 H (19-24) mmol/L ABG O2 Saturation 97.9 H (94-97) % Sodium (137-145) mmol/L BUN (7-17) mg/dL Creatinine (0.52-1.04) mg/dL Glucose (74-99) mg/dL POC Glucose (mg/dL) (70-110) mg/dL Calcium (8.4-10.2) mg/dL Total Bilirubin (0.2-1.3) mg/dL AST (14-36) U/L Alkaline Phosphatase (38-126) U/L Total Protein (6.3-8.2) g/dL Albumin (3.5-5.0) g/dL Procalcitonin (0.02-0.09) ng/mL Microbiology - Last 24 Hours (Table) 05/08/23 14:06 Blood Culture - Preliminary Blood 05/09/23 16:43 Gram Stain - Final Mandible - Right Wound Culture - Final Staphylococcus haemolyticus Assessment and Plan Plan: Acute on chronic hypoxic and hypercapnic respiratory failure, essential related to massive fluid overload and development of bilateral pleural effusion. The patient had significant hypercapnic respiratory failure causing CO2 narcosis and altered mentation and obtundation. CAT scan of the brain was negative. The patient was initially placed on a BiPAP and subsequently the patient was in tubated and placed on the mechanical ventilator. Follow-up blood gases showed improvement in acid-base status and oxygenation. Patient was also started on hemodialysis. Altered mentation with diminished level of consciousness and the patient is quite obtunded at this point in time. This is related to hypercapnic respiratory failure and CO2 narcosis. Please refer to the blood gas that shows an acute hypercapnic respiratory failure most likely due to fluid overload and development of bilateral pleural effusion. Sepsis with secondary hypotension requiring pressor support secondary to sepsis of unclear etiology, possible dental abscess, questionable urinary tract infection with previous cultures of ESBL the patient currently is on norepinephrine running at 0. 16 mcg/kg/min and IV fluids will be switched to KVO as the patient has significant anasarca and third spacing and fluid overload.. She is still pressor dependent. Echocardiogram that was done on 04/30/2023 showed an ejection fraction of 45% and the patient does not have any significant valvular abnormalities. Oral cultures are positive for anaerobes and Sabrina. Blood cultures urine cultures have been negative. Patient has chronic gross decay of all remaining lower teeth. Appears to have spontaneous drainage of pus emanating from the sulcus of tooth #29 which was cultured. The patient is status post extraction of tooth #[address] Fine and cultures were also sent. Bilateral pleural effusion right more than left Acute kidney injury secondary to above, creatinine is stable and the patient continues to be oliguric and the patient has been in positive fluid balance, started hemodialysis Acute hyperkalemia, improved None anion gap metabolic acidosis, improved Acute pain secondary to compression fractures of T7 and T8 and acute left posterior eighth rib fracture Neuropathy Stage II decubitus ulcer History of liver cirrhosis Pancytopenia Non-ST segment elevation myocardial infarction New onset atrial fibrillation with controlled ventricular response 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 Plan: Continue ventilator support and drop respirate down to 20. Repeat the blood gas at around 1 PM today. Continue hemodialysis and the second session of hemodialysis with an ultrafiltration will be done today Chest x-ray still showing bilateral pleural effusions IV fluids down to KVO Continue pressors, currently on 0 0.14 mcg/kg/min of norepinephrine, the patient's pressors will be gradually weaned off based on her mean arterial pressure. The patient is also on physiologic dose of vasopressin. Will support with pressors during hemodialysis and increase the dose if needed. Otherwise the plan is to gradually wean off the pressors based on her mean arterial pressure. Continue IV Invanz, Eraxis and daptomycin and infectious disease on the case Pending further cultures and the patient had extraction of tooth #29 Lactulose to be continued to establish a daily soft bowel movement The patient will be started on enteral feeding for nutritional support and dietary consultation will be obtained Continue Lasix per nephrology recommendation Case was discussed with the family at length. I updated the daughter yesterday on her condition. Condition is obviously critical. Will continue to follow and make further recommendation based on her progress. Condition is critical in this evaluation with a more than 30 minutes.
[2023-05-12] MEDS: DEXTROSE 5%-0.9% NACL 1,000 ML IV SCH (09:45)
--- NOTE | 2023-05-12 09:49 | XR ---
EXAMINATION TYPE: XR chest 1V portable DATE OF EXAM: 05/12/2023 5:55 AM CLINICAL INDICATION:Female, 82 years old with history of Tube placement; [facility] COMPARISON: Chest radiographs from TECHNIQUE: XR chest 1V portable Frontal view of the chest. FINDINGS: Lungs/Pleura: No evidence of focal consolidation or pneumothorax. Blunting of the costophrenic angles is present. Pulmonary vascularity: Pulmonary vascular congestion. Heart/mediastinum: Cardiomediastinal silhouette is enlarged and stable. Musculoskeletal: No acute osseous pathology. Other findings: None Lines/Tubes: Endotracheal tube with distal tip 1.8 cm above the lizzie. Nasogastric tube with its distal tip and side-port projecting under the diaphragm. Left internal jugular central venous catheter with distal tip at the cavoatrial junction. IMPRESSION: Appropriate placement of support line and tubes. Cardiomegaly, pulmonary vascular congestion and bilateral pleural effusions.
--- NOTE | 2023-05-12 10:28 | P.PN ---
Subjective Patient is seen in follow-up for acute kidney injury. Patient went into respiratory distress yesterday and was subsequently intubated. Started on hemodialysis May 11, 2023 due to volume overload. Currently on Levophed and vasopressin. Urine output 30 to 40 cc an hour for the last 2 hours. Vital signs are stable. On vasopressors. General: No acute distress. HEENT: Intubated. LUNGS: Scattered rhonchi. HEART: Rate and Rhythm are regular. ABDOMEN: Nontender. EXTREMITITES: 2+ edema. Objective - Vital Signs Vital signs: Vital Signs Temp 98.2 F 05/12/23 03:00 Pulse 86 05/12/23 08:57 Resp 20 05/12/23 08:57 BP 110/49 05/12/23 03:15 Pulse Ox 97 05/12/23 06:30 FiO2 40 05/12/23 08:37 Intake & Output 05/11/23 05/12/23 05/12/23 18:59 06:59 18:59 Intake Total 981.052 7897.009 196.789 Output Total 410 3057 Balance 585.687 -1292.991 196.789 Weight 97.8 kg 99.2 kg Intake: IV 810 650 .9 kvo 10 Anidulafungin 100 mg In 100 Sodium Chloride 0.9% 100 ml @ 84 mls/hr IVPB DAILY @1300 [facility] Rx#:[id number] DAPTOmycin 400 mg In 50 Sodium Chloride 0.9% 50 ml @ 100 mls/hr IVPB Q48H [facility] Rx#:[id number] Dextrose 5%-0.9% NaCl 1, 600 650 000 ml @ 50 mls/hr IV . Q20H [facility] Rx#:[id number] Ertapenem 0.5 gm In 50 Sodium Chloride 0.9% 50 ml @ 100 mls/hr IVPB DAILY [facility] Rx#:[id number] Intake, IV Titration 185.687 614.009 196.789 Amount Norepinephrine 4 mg In 185.687 432.045 168.085 Sodium Chloride 0.9% 250 ml @ 0.03 MCG/KG/MIN 6.74 mls/hr IV .Q24H [facility] Rx#: [id number] Vasopressin 20 unit In 42.305 Sodium Chloride 0.9% 50 ml @ 0.03 UNITS/MIN 4.59 mls/hr IV .Q11H7M [facility] Rx# :[id number] propofoL 1,000 mg In 139.659 28.704 Empty Bag 1 bag @ 15 MCG/ KG/MIN 8.802 mls/hr IV . [id number] [facility] Rx#:[id number] Hemodialysis 500 Output: Urine 410 557 Hemodialysis 2500 Other: Voiding Method Indwelling Catheter Indwelling Catheter ABP, PAP, CO, CI - Last Documented Arterial Blood Pressure 145/42 - Labs CBC & Chem 7: 05/12/23 04:25 05/12/23 04:25 Labs: Abnormal Lab Results - Last 24 Hours (Table) 05/11/23 05/11/23 05/11/23 Range/Units 08:56 11:25 11:59 WBC (3.8-10.6) k/uL RBC (3.80-5.40) m/uL Hgb (11.4-16.0) gm/dL Hct (34.0-46.0) % MCH (25.0-35.0) pg RDW (11.5-15.5) % Plt Count (150-450) k/uL Neutrophils # (1.3-7.7) k/uL Lymphocytes # (1.0-4.8) k/uL ABG pH (7.35-7.45) ABG pCO2 (35-45) mmHg ABG pO2 (83-108) mmHg ABG HCO3 (21-25) mmol/L ABG Total CO2 (19-24) mmol/L ABG O2 Saturation (94-97) % Sodium (137-145) mmol/L BUN (7-17) mg/dL Creatinine (0.52-1.04) mg/dL Glucose (74-99) mg/dL POC Glucose (mg/dL) 145 H 140 H (70-110) mg/dL Calcium (8.4-10.2) mg/dL Total Bilirubin (0.2-1.3) mg/dL AST (14-36) U/L Alkaline Phosphatase (38-126) U/L Total Protein (6.3-8.2) g/dL Albumin (3.5-5.0) g/dL Procalcitonin 1.26 H (0.02-0.09) ng/mL 05/11/23 05/11/2324 Range/Units 14:40 16:47 17:38 WBC (3.8-10.6) k/uL RBC (3.80-5.40) m/uL Hgb (11.4-16.0) gm/dL Hct (34.0-46.0) % MCH (25.0-35.0) pg RDW (11.5-15.5) % Plt Count (150-450) k/uL Neutrophils # (1.3-7.7) k/uL Lymphocytes # (1.0-4.8) k/uL ABG pH 7.11 L* 7.18 L* (7.35-7.45) ABG pCO2 93 H* 78 H* (35-45) mmHg ABG pO2 117 H 68 L (83-108) mmHg ABG HCO3 29 H 29 H (21-25) mmol/L ABG Total CO2 32 H 31 H (19-24) mmol/L ABG O2 Saturation 98.0 H 93.8 L (94-97) % Sodium (137-145) mmol/L BUN (7-17) mg/dL Creatinine (0.52-1.04) mg/dL Glucose (74-99) mg/dL POC Glucose (mg/dL) 127 H (70-110) mg/dL Calcium (8.4-10.2) mg/dL Total Bilirubin (0.2-1.3) mg/dL AST (14-36) U/L Alkaline Phosphatase (38-126) U/L Total Protein (6.3-8.2) g/dL Albumin (3.5-5.0) g/dL Procalcitonin (0.02-0.09) ng/mL 05/11/23 05/11/23 05/12/23 Range/Units 20:51 21:11 00:32 WBC (3.8-10.6) k/uL RBC (3.80-5.40) m/uL Hgb (11.4-16.0) gm/dL Hct (34.0-46.0) % MCH (25.0-35.0) pg RDW (11.5-15.5) % Plt Count (150-450) k/uL Neutrophils # (1.3-7.7) k/uL Lymphocytes # (1.0-4.8) k/uL ABG pH 7.29 L (7.35-7.45) ABG pCO2 55 H (35-45) mmHg ABG pO2 67 L (83-108) mmHg ABG HCO3 27 H (21-25) mmol/L ABG Total CO2 28 H (19-24) mmol/L ABG O2 Saturation (94-97) % Sodium (137-145) mmol/L BUN (7-17) mg/dL Creatinine (0.52-1.04) mg/dL Glucose (74-99) mg/dL POC Glucose (mg/dL) 137 H 118 H (70-110) mg/dL Calcium (8.4-10.2) mg/dL Total Bilirubin (0.2-1.3) mg/dL AST (14-36) U/L Alkaline Phosphatase (38-126) U/L Total Protein (6.3-8.2) g/dL Albumin (3.5-5.0) g/dL Procalcitonin (0.02-0.09) ng/mL 05/12/23 05/12/23 05/12/23 Range/Units 04:25 04:25 06:34 WBC 12.2 H (3.8-10.6) k/uL RBC 2.79 L (3.80-5.40) m/uL Hgb 9.8 L (11.4-16.0) gm/dL Hct 27.4 L (34.0-46.0) % MCH 35.3 H (25.0-35.0) pg RDW 16.8 H (11.5-15.5) % Plt Count 103 L (150-450) k/uL Neutrophils # 10.7 H (1.3-7.7) k/uL Lymphocytes # 0.5 L (1.0-4.8) k/uL ABG pH 7.58 H* (7.35-7.45) ABG pCO2 29 L (35-45) mmHg ABG pO2 77 L (83-108) mmHg ABG HCO3 27 H (21-25) mmol/L ABG Total CO2 28 H (19-24) mmol/L ABG O2 Saturation 97.9 H (94-97) % Sodium 135 L (137-145) mmol/L BUN 56 H (7-17) mg/dL Creatinine 1.71 H (0.52-1.04) mg/dL Glucose 100 H (74-99) mg/dL POC Glucose (mg/dL) (70-110) mg/dL Calcium 7.6 L (8.4-10.2) mg/dL Total Bilirubin 2.1 H (0.2-1.3) mg/dL AST 53 H (14-36) U/L Alkaline Phosphatase 240 H (38-126) U/L Total Protein 4.4 L (6.3-8.2) g/dL Albumin 1.9 L (3.5-5.0) g/dL Procalcitonin (0.02-0.09) ng/mL Microbiology - Last 24 Hours (Table) 05/08/23 14:06 Blood Culture - Preliminary Blood 05/09/23 16:43 Gram Stain - Final Mandible - Right Wound Culture - Final Staphylococcus haemolyticus Assessment and Plan Plan: Assessment: 1. Acute kidney injury secondary to ATN secondary to septic shock. Creatinine 1.19 on admission and peaked at 3.07 this admission. Left kidney is small. No hydronephrosis noted. Started on hemodialysis May 11, 2023 due to volume overload. 2. Septic shock on vasopressors. Concern for UTI versus dental abscess. 3. Hyperkalemia secondary to acute kidney injury and LR. Improved. 4. Volume overload. 5. Hypervolemic hyponatremia. Better. 6. Non-ST elevated myocardial infarction. Plan: Currently seen while undergoing hemodialysis. Continue with daily dialysis for now. Challenge ultrafiltration as able to tolerate. Maintain IV Lasix. Wean vasopressors and FiO2. Maintain midodrine. Avoid nephrotoxins.
[2023-05-12] MEDS: NOREPINEPHRINE 8 MG in SODIUM CHLORIDE 0.9% 250 ML IV SCH (11:21)
--- NOTE | 2023-05-12 11:30 | P.PN ---
Subjective Progress Note Date: 05/12/23 Principal diagnosis: Reason for follow-up is leukocytosis and UTI Patient is a 82-year-old female with a past medical history significant for hypertension hyperlipidemia thrombocytopenia cirrhosis of the liver [place] osteoarthritis patient was brought into the ER for evaluation of chest pain patient subsequently did have significant worsening of her mentation did have a positive UA concerning for possible component of UTI, with subsequent workup that shows evidence of dental abscess especially to tooth #29, patient did have extraction of tooth #29 along with drainage of the abscess completed on 05/09/2023.Patient did have dialysis catheter placement evening of 05/11/2023 subsequently patient did have a worsening respiratory status ended up getting intubated on 05/11/2023 On today's visit that is 05/12/2023, Patient is afebrile patient is currently on vent FiO2 at 40% no significant purulent secretions through the ET patient is requiring pressor support and is currently undergoing dialysis. Patient white count is 12.2, creatinine is 1.71 Objective - Vital Signs Vital signs: Vital Signs Temp 98.2 F 05/12/23 03:00 Pulse 86 05/12/23 08:57 Resp 20 05/12/23 08:57 BP 110/49 05/12/23 03:15 Pulse Ox 97 05/12/23 06:30 FiO2 40 05/12/23 08:37 Intake & Output 05/11/23 05/12/23 05/12/23 18:59 06:59 18:59 Intake Total 857.502 9184.009 Output Total 410 3057 Balance 585.687 -1292.991 Weight 97.8 kg 99.2 kg Intake: IV 810 650 .9 kvo 10 Anidulafungin 100 mg In 100 Sodium Chloride 0.9% 100 ml @ 84 mls/hr IVPB DAILY @1300 [facility] Rx#:[id number] DAPTOmycin 400 mg In 50 Sodium Chloride 0.9% 50 ml @ 100 mls/hr IVPB Q48H [facility] Rx#:[id number] Dextrose 5%-0.9% NaCl 1, 600 650 000 ml @ 50 mls/hr IV . Q20H [facility] Rx#:[id number] Ertapenem 0.5 gm In 50 Sodium Chloride 0.9% 50 ml @ 100 mls/hr IVPB DAILY [facility] Rx#:[id number] Intake, IV Titration 185.687 614.009 Amount Norepinephrine 4 mg In 185.687 432.045 Sodium Chloride 0.9% 250 ml @ 0.03 MCG/KG/MIN 6.74 mls/hr IV .Q24H [facility] Rx#: [id number] Vasopressin 20 unit In 42.305 Sodium Chloride 0.9% 50 ml @ 0.03 UNITS/MIN 4.59 mls/hr IV .Q11H7M [facility] Rx# :[id number] propofoL 1,000 mg In 139.659 Empty Bag 1 bag @ 15 MCG/ KG/MIN 8.802 mls/hr IV . [id number] [facility] Rx#:[id number] Hemodialysis 500 Output: Urine 410 557 Hemodialysis 2500 Other: Voiding Method Indwelling Catheter Indwelling Catheter ABP, PAP, CO, CI - Last Documented Arterial Blood Pressure 145/42 - Exam GENERAL DESCRIPTION: An elderly Female intubated on the vent RESPIRATORY SYSTEM: Unlabored breathing , decreased breath sounds at bases HEART: S1 S2 regular rate and rhythm , ABDOMEN: Soft , no tenderness EXTREMITIES: No edema feet - Labs CBC & Chem 7: 05/12/23 04:25 05/12/23 04:25 Labs: Abnormal Lab Results - Last 24 Hours (Table) 05/11/23 05/11/23 05/11/23 Range/Units 08:56 11:25 11:59 WBC (3.8-10.6) k/uL RBC (3.80-5.40) m/uL Hgb (11.4-16.0) gm/dL Hct (34.0-46.0) % MCH (25.0-35.0) pg RDW (11.5-15.5) % Plt Count (150-450) k/uL Neutrophils # (1.3-7.7) k/uL Lymphocytes # (1.0-4.8) k/uL ABG pH (7.35-7.45) ABG pCO2 (35-45) mmHg ABG pO2 (83-108) mmHg ABG HCO3 (21-25) mmol/L ABG Total CO2 (19-24) mmol/L ABG O2 Saturation (94-97) % Sodium (137-145) mmol/L BUN (7-17) mg/dL Creatinine (0.52-1.04) mg/dL Glucose (74-99) mg/dL POC Glucose (mg/dL) 145 H 140 H (70-110) mg/dL Calcium (8.4-10.2) mg/dL Total Bilirubin (0.2-1.3) mg/dL AST (14-36) U/L Alkaline Phosphatase (38-126) U/L Total Protein (6.3-8.2) g/dL Albumin (3.5-5.0) g/dL Procalcitonin 1.26 H (0.02-0.09) ng/mL 05/11/23 05/11/23 05/11/23 Range/Units 14:40 16:47 17:38 WBC (3.8-10.6) k/uL RBC (3.80-5.40) m/uL Hgb (11.4-16.0) gm/dL Hct (34.0-46.0) % MCH (25.0-35.0) pg RDW (11.5-15.5) % Plt Count (150-450) k/uL Neutrophils # (1.3-7.7) k/uL Lymphocytes # (1.0-4.8) k/uL ABG pH 7.11 L* 7.18 L* (7.35-7.45) ABG pCO2 93 H* 78 H* (35-45) mmHg ABG pO2 117 H 68 L (83-108) mmHg ABG HCO3 29 H 29 H (21-25) mmol/L ABG Total CO2 32 H 31 H (19-24) mmol/L ABG O2 Saturation 98.0 H 93.8 L (94-97) % Sodium (137-145) mmol/L BUN (7-17) mg/dL Creatinine (0.52-1.04) mg/dL Glucose (74-99) mg/dL POC Glucose (mg/dL) 127 H (70-110) mg/dL Calcium (8.4-10.2) mg/dL Total Bilirubin (0.2-1.3) mg/dL AST (14-36) U/L Alkaline Phosphatase (38-126) U/L Total Protein (6.3-8.2) g/dL Albumin (3.5-5.0) g/dL Procalcitonin (0.02-0.09) ng/mL 05/11/23 05/11/23 05/12/23 Range/Units 20:51 21:11 00:32 WBC (3.8-10.6) k/uL RBC (3.80-5.40) m/uL Hgb (11.4-16.0) gm/dL Hct (34.0-46.0) % MCH (25.0-35.0) pg RDW (11.5-15.5) % Plt Count (150-450) k/uL Neutrophils # (1.3-7.7) k/uL Lymphocytes # (1.0-4.8) k/uL ABG pH 7.29 L (7.35-7.45) ABG pCO2 55 H (35-45) mmHg ABG pO2 67 L (83-108) mmHg ABG HCO3 27 H (21-25) mmol/L ABG Total CO2 28 H (19-24) mmol/L ABG O2 Saturation (94-97) % Sodium (137-145) mmol/L BUN (7-17) mg/dL Creatinine (0.52-1.04) mg/dL Glucose (74-99) mg/dL POC Glucose (mg/dL) 137 H 118 H (70-110) mg/dL Calcium (8.4-10.2) mg/dL Total Bilirubin (0.2-1.3) mg/dL AST (14-36) U/L Alkaline Phosphatase (38-126) U/L Total Protein (6.3-8.2) g/dL Albumin (3.5-5.0) g/dL Procalcitonin (0.02-0.09) ng/mL 05/12/23 05/12/23 05/12/23 Range/Units 04:25 04:25 06:34 WBC 12.2 H (3.8-10.6) k/uL RBC 2.79 L (3.80-5.40) m/uL Hgb 9.8 L (11.4-16.0) gm/dL Hct 27.4 L (34.0-46.0) % MCH 35.3 H (25.0-35.0) pg RDW 16.8 H (11.5-15.5) % Plt Count 103 L (150-450) k/uL Neutrophils # 10.7 H (1.3-7.7) k/uL Lymphocytes # 0.5 L (1.0-4.8) k/uL ABG pH 7.58 H* (7.35-7.45) ABG pCO2 29 L (35-45) mmHg ABG pO2 77 L (83-108) mmHg ABG HCO3 27 H (21-25) mmol/L ABG Total CO2 28 H (19-24) mmol/L ABG O2 Saturation 97.9 H (94-97) % Sodium 135 L (137-145) mmol/L BUN 56 H (7-17) mg/dL Creatinine 1.71 H (0.52-1.04) mg/dL Glucose 100 H (74-99) mg/dL POC Glucose (mg/dL) (70-110) mg/dL Calcium 7.6 L (8.4-10.2) mg/dL Total Bilirubin 2.1 H (0.2-1.3) mg/dL AST 53 H (14-36) U/L Alkaline Phosphatase 240 H (38-126) U/L Total Protein 4.4 L (6.3-8.2) g/dL Albumin 1.9 L (3.5-5.0) g/dL Procalcitonin (0.02-0.09) ng/mL Microbiology - Last 24 Hours (Table) 05/08/23 14:06 Blood Culture - Preliminary Blood 05/09/23 16:43 Gram Stain - Final Mandible - Right Wound Culture - Final Staphylococcus haemolyticus Assessment and Plan (1) Leukocytosis Current Visit: Yes Status: Acute Code(s): D72.829 - ELEVATED WHITE BLOOD CELL COUNT, UNSPECIFIED SNOMED Code(s): 402714455 (2) Allergy to multiple antibiotics Current Visit: Yes Status: Acute Code(s): Z88.1 - ALLERGY STATUS TO OTHER ANTIBIOTIC AGENTS SNOMED Code(s): 587097972 (3) Urinary tract infection Current Visit: No Status: Acute Code(s): N39.0 - URINARY TRACT INFECTION, SITE NOT SPECIFIED SNOMED Code(s): 85750743 Plan: 1patient with sepsis, source likely infected tooth and abscess patient has been evaluated by oral surgery and plan is status post extraction of tooth #29 and drainage of the abscess cultures are currently growing Staphylococcus hemolyticus and Sabrina 2-patient did have significant change in her clinical condition with worsening respiratory status requiring intubation sputum cultures obtained results will be followed we will continue with the current broad-spectrum antibiotic in the form of Invanz daptomycin and Eraxis prognosis remains to be guarded Dictation was produced using [employer] software. please excuse any grammatical, word or spelling errors. Time with Patient: Less than 30
[2023-05-12 12:25] LABS: Glucose,Whole Blood 129 mg/dL (70-110)
--- NOTE | 2023-05-12 12:51 | P.PN ---
Subjective Progress Note Date: 05/12/23 Hospital Course: 82-year-old female with history of liver cirrhosis, CAD status post stent, chronic systolic heart failure, hypertension, dyslipidemia, chronic pancytopenia, ITP presented with chest pain and shortness of breath. On initial presentation, patient was tachycardic, tachypneic, saturating well on room air. EKG showed sinus tachycardia with known left bundle branch block. Chest x-ray showed pulmonary vascular interstitial markings. 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 CBC showing pancytopenia with WBC count of 1.6, hemoglobin 11.3, platelet count of 41. Coagulation profile showing elevated INR of 1.3. BMP showing hyponatremia with sodium of 131, elevated BUN of 33, creatinine 1.19, GFR 43. Liver profile showing elevated total bili of 4.2, AST of 44, ALT of 20, and alkaline phosphatase of 282. Troponin 0.064 and proBNP 2360. Troponin continues to uptrend. Cardiology was consulted. No invasive procedures recommended by cardiology. Echocardiogram showed mild LV systolic function decrease, severely enlarged left atrium. Orthopedic surgery was consulted, not recommending any interventions. Patient did get slightly more encephalopathic, and had low blood sugars, previous urinalysis was positive, urine culture was positive for ESBL. Repeat urinalysis shows a dirty sample. However, ID is consulted, patient is on IV antibiotics, ertapenem. Patient also developed oliguric SCOOTER. CT face showed neck mass of 3 x 4 cm and right maxillary inflammatory changes. ENT and maxillofacial surgery were consulted. ENT recommended IR consult for consideration of needle biopsy of left neck mass, however, upon review, r adiology deferred this procedure due to having stable imaging/finding of left neck mass/thyroid mass from prior imaging. Patient was however scheduled for dental extraction with abscess drainage of the right mandible. Patient had been transitioned to the ICU on 05/07 for septic shock requiring vasopressor, and had a requirement of 0.14. Underwent surgical extraction of tooth. On 05/12/2023 patient became more encephalopathic, hypercapnic respiratory failure. Also requiring increasing amount of pressors and became oliguric. She was intubated, started on vasopressin, also had dialysis catheter placed and started on dialysis. Data reviewed: WBC 12.2, hemoglobin 9.8, platelet 103, pH 7.58, pCO2 29, sodium 135, creatinine 1.71, magnesium 2.2, blood sugars range between 100-1 29 Subjective: Patient seen and examined at bedside. Intubated yesterday evening. Requiring higher amounts of vasopressors, also started on dialysis. Vitals Signs Reviewed. General: Intubated and sedated Derm: Warm, dry, jaundice Head: Atraumatic, normocephalic, symmetric Eyes: scleral icterus, equal and reactive pupil Mouth: No lip lesion, mucus membranes moist Cardiovascular: S1S2 reg, no murmur Lungs: no accessory muscle use, intubated Abdominal: Soft, nondistended Ext: No gross muscle atrophy, generalized anasarca a, no contractures Neuro: Sedated Psych: Unable to assess Assessment and Plan: Patient is critically ill, prognosis guarded Acute hypercapnic respiratory failure Acute metabolic encephalopathy Septic Shock, unclear source Questionable urinary tract infection, prior cultures growing ESBL Dental abscess status post surgical extraction Liver cirrhosis Pancytopenia Hyperbilirubinemia -Patient currently intubated and sedated, pulmonology note reviewed, continue to wean pressors, continue respiratory support, continue hemodialysis - ID following, patient on ertapenem 0.5 g IV daily, also started on daptomycin 400 mg IV every 48 hours, Eraxis 100 mg IV daily - continue levophed and vasopressin Pain control with IV Tylenol as needed, also on gabapentin 100 3 times daily -Patient was on primidone for tremors, decreased to 25 daily - Lactulose 30 daily Oliguric SCOOTER, now on hemodialysis Hyponatremia Mild hypokalemia -nephrology note reviewed, continue hemodialysis, continue 60 mg IV Lasix twice daily, maintain midodrine -hourly strict UOP measurement -On D5 normal saline at 10 cc an hour continue midodrine 10 AC 3 times daily Repeat BMP and magnesium tomorrow NSTEMI, likely type II New onset Afib with controlled ventricular rate History of CAD status post stent -Cardiology recommending medical management for NSTEMI -Continue aspirin 81 mg, on pravastatin 80 mg -On amiodarone 200 twice daily for rate control, no anticoagulation due to thrombocytopenia -Continue home metoprolol 12.5 daily Compression fracture of T7 and T8 Acute left posterior eighth rib fracture Fracture of the coronoid process of the left scapula -Orthopedic surgery signed off, patient not a surgical candidate Thyroid mass -Outpatient follow-up DVT ppx: Patient is thrombocytopenic Code status: Full code Anticipated discharge place: Pending clinical course Anticipated discharge time: Pending clinical course Objective - Vital Signs Vital signs: Vital Signs Temp 97.7 F 05/12/23 12:00 Pulse 96 05/12/23 12:00 Resp 20 05/12/23 12:00 BP 110/49 05/12/23 03:15 Pulse Ox 99 05/12/23 12:00 FiO2 40 05/12/23 12:00 Intake & Output 05/11/23 05/12/23 05/12/23 18:59 06:59 18:59 Intake Total 473.783 9264.009 463.085 Output Total 410 3057 180 Balance 585.687 -1292.991 283.085 Weight 97.8 kg 99.2 kg Intake: IV 810 650 155 .9 kvo 10 Anidulafungin 100 mg In 100 Sodium Chloride 0.9% 100 ml @ 84 mls/hr IVPB DAILY @1300 [facility] Rx#:[id number] Arterial Pressure Bag NS 15 0.9% DAPTOmycin 400 mg In 50 Sodium Chloride 0.9% 50 ml @ 100 mls/hr IVPB Q48H [facility] Rx#:[id number] Dextrose 5%-0.9% NaCl 1, 40 000 ml @ 10 mls/hr IV . Q24H [facility] Rx#:[id number] Dextrose 5%-0.9% NaCl 1, 600 650 50 000 ml @ 50 mls/hr IV . Q20H [facility] Rx#:[id number] Ertapenem 0.5 gm In 50 50 Sodium Chloride 0.9% 50 ml @ 100 mls/hr IVPB DAILY [facility] Rx#:[id number] Intake, IV Titration 185.687 614.009 268.085 Amount Norepinephrine 4 mg In 185.687 432.045 168.085 Sodium Chloride 0.9% 250 ml @ 0.03 MCG/KG/MIN 6.74 mls/hr IV .Q24H [facility] Rx#: [id number] Vasopressin 20 unit In 42.305 Sodium Chloride 0.9% 50 ml @ 0.03 UNITS/MIN 4.59 mls/hr IV .Q11H7M [facility] Rx# :[id number] propofoL 1,000 mg In 139.659 100.000 Empty Bag 1 bag @ 15 MCG/ KG/MIN 8.802 mls/hr IV . [id number] [facility] Rx#:[id number] Oral 0 Tube Feeding 10 Hemodialysis 500 Other 30 Output: Urine 410 557 180 Hemodialysis 2500 Other: Voiding Method Indwelling Catheter Indwelling Catheter ABP, PAP, CO, CI - Last Documented Arterial Blood Pressure 151/75 - Labs CBC & Chem 7: 05/12/23 04:25 05/12/23 04:25 Labs: Abnormal Lab Results - Last 24 Hours (Table) 05/11/23 05/11/23 05/11/23 Range/Units 08:56 14:40 16:47 WBC (3.8-10.6) k/uL RBC (3.80-5.40) m/uL Hgb (11.4-16.0) gm/dL Hct (34.0-46.0) % MCH (25.0-35.0) pg RDW (11.5-15.5) % Plt Count (150-450) k/uL Neutrophils # (1.3-7.7) k/uL Lymphocytes # (1.0-4.8) k/uL ABG pH 7.11 L* (7.35-7.45) ABG pCO2 93 H* (35-45) mmHg ABG pO2 117 H (83-108) mmHg ABG HCO3 29 H (21-25) mmol/L ABG Total CO2 32 H (19-24) mmol/L ABG O2 Saturation 98.0 H (94-97) % Sodium (137-145) mmol/L BUN (7-17) mg/dL Creatinine (0.52-1.04) mg/dL Glucose (74-99) mg/dL POC Glucose (mg/dL) 127 H (70-110) mg/dL Calcium (8.4-10.2) mg/dL Total Bilirubin (0.2-1.3) mg/dL AST (14-36) U/L Alkaline Phosphatase (38-126) U/L Total Protein (6.3-8.2) g/dL Albumin (3.5-5.0) g/dL Procalcitonin 1.26 H (0.02-0.09) ng/mL 05/11/23 05/11/23 05/11/23 Range/Units 17:38 20:51 21:11 WBC (3.8-10.6) k/uL RBC (3.80-5.40) m/uL Hgb (11.4-16.0) gm/dL Hct (34.0-46.0) % MCH (25.0-35.0) pg RDW (11.5-15.5) % Plt Count (150-450) k/uL Neutrophils # (1.3-7.7) k/uL Lymphocytes # (1.0-4.8) k/uL ABG pH 7.18 L* 7.29 L (7.35-7.45) ABG pCO2 78 H* 55 H (35-45) mmHg ABG pO2 68 L 67 L (83-108) mmHg ABG HCO3 29 H 27 H (21-25) mmol/L ABG Total CO2 31 H 28 H (19-24) mmol/L ABG O2 Saturation 93.8 L (94-97) % Sodium (137-145) mmol/L BUN (7-17) mg/dL Creatinine (0.52-1.04) mg/dL Glucose (74-99) mg/dL POC Glucose (mg/dL) 137 H (70-110) mg/dL Calcium (8.4-10.2) mg/dL Total Bilirubin (0.2-1.3) mg/dL AST (14-36) U/L Alkaline Phosphatase (38-126) U/L Total Protein (6.3-8.2) g/dL Albumin (3.5-5.0) g/dL Procalcitonin (0.02-0.09) ng/mL 05/12/23 05/12/23 05/12/23 Range/Units 00:32 04:25 04:25 WBC 12.2 H (3.8-10.6) k/uL RBC 2.79 L (3.80-5.40) m/uL Hgb 9.8 L (11.4-16.0) gm/dL Hct 27.4 L (34.0-46.0) % MCH 35.3 H (25.0-35.0) pg RDW 16.8 H (11.5-15.5) % Plt Count 103 L (150-450) k/uL Neutrophils # 10.7 H (1.3-7.7) k/uL Lymphocytes # 0.5 L (1.0-4.8) k/uL ABG pH (7.35-7.45) ABG pCO2 (35-45) mmHg ABG pO2 (83-108) mmHg ABG HCO3 (21-25) mmol/L ABG Total CO2 (19-24) mmol/L ABG O2 Saturation (94-97) % Sodium 135 L (137-145) mmol/L BUN 56 H (7-17) mg/dL Creatinine 1.71 H (0.52-1.04) mg/dL Glucose 100 H (74-99) mg/dL POC Glucose (mg/dL) 118 H (70-110) mg/dL Calcium 7.6 L (8.4-10.2) mg/dL Total Bilirubin 2.1 H (0.2-1.3) mg/dL AST 53 H (14-36) U/L Alkaline Phosphatase 240 H (38-126) U/L Total Protein 4.4 L (6.3-8.2) g/dL Albumin 1.9 L (3.5-5.0) g/dL Procalcitonin (0.02-0.09) ng/mL 05/12/23 05/12/23 Range/Units 06:34 12:22 WBC (3.8-10.6) k/uL RBC (3.80-5.40) m/uL Hgb (11.4-16.0) gm/dL Hct (34.0-46.0) % MCH (25.0-35.0) pg RDW (11.5-15.5) % Plt Count (150-450) k/uL Neutrophils # (1.3-7.7) k/uL Lymphocytes # (1.0-4.8) k/uL ABG pH 7.58 H* (7.35-7.45) ABG pCO2 29 L (35-45) mmHg ABG pO2 77 L (83-108) mmHg ABG HCO3 27 H (21-25) mmol/L ABG Total CO2 28 H (19-24) mmol/L ABG O2 Saturation 97.9 H (94-97) % Sodium (137-145) mmol/L BUN (7-17) mg/dL Creatinine (0.52-1.04) mg/dL Glucose (74-99) mg/dL POC Glucose (mg/dL) 129 H (70-110) mg/dL Calcium (8.4-10.2) mg/dL Total Bilirubin (0.2-1.3) mg/dL AST (14-36) U/L Alkaline Phosphatase (38-126) U/L Total Protein (6.3-8.2) g/dL Albumin (3.5-5.0) g/dL Procalcitonin (0.02-0.09) ng/mL Microbiology - Last 24 Hours (Table) 05/08/23 14:06 Blood Culture - Preliminary Blood 05/09/23 16:43 Gram Stain - Final Mandible - Right Wound Culture - Final Staphylococcus haemolyticus
[2023-05-12] MEDS: ANIDULAFUNGIN 100 MG in SODIUM CHLORIDE 0.9% 100 ML IVPB SCH (13:05)
[2023-05-12 13:13] LABS: ABG Base Excess 3.8 mmol/L; ABG HCO3 27 mmol/L (21-25); ABG Oxygen Saturation 99.2 % (94-97); ABG PCO2 37 mmHg (35-45); ABG PH 7.48 (7.35-7.45); ABG PO2 125 mmHg (83-108); ABG TCO2 28 mmol/L (19-24)
--- NOTE | 2023-05-12 13:29 | EEG ---
ELECTROENCEPHALOGRAM REPORT CLINICAL HISTORY: This is an 82-year-old woman with altered mental status. The video EEG is obtained to evaluate for seizure epileptiform activity. RELEVANT MEDICATION: IV propofol. EEG TYPE: A routine 21-channel EEG with video EEG using the 10/20 electrode placement system. DESCRIPTION: The patient is intubated on a ventilator. The background consists of zfw-[id number] voltage of 7-7.5 hertz activity. At times, the background consists of sxj-os-oivyzdmc voltage of diffuse nonrhythmic polymorphic delta activity. There is no physiological stage 2 sleep architecture. There is no focal slowing. Interictal and ictal is none. ACTIVATION PROCEDURE: Photic stimulation did not evoke a posterior driving response. There is no abnormality during the photic stimulation. Hyperventilation is not performed. CLINICAL INTERPRETATION: This is an abnormal EEG. The background slowing is suggestive of moderate encephalopathy, likely due to toxic metabolic derangement. There is no focal slowing, epileptiform discharges, or seizure on the EEG. Clinical correlation is recommended. MARTY / ABBIEN: [id number] / HINA
[2023-05-12 17:14] LABS: Glucose,Whole Blood 166 mg/dL (70-110)
[2023-05-12 20:18] LABS: Glucose,Whole Blood 162 mg/dL (70-110)
[2023-05-12 23:49] LABS: Glucose,Whole Blood 173 mg/dL (70-110)
[2023-05-13 04:04] LABS: Glucose,Whole Blood 172 mg/dL (70-110)
[2023-05-13 04:14] LABS: Anisocytosis Slight; Basophils % (A) 0 %; Eosinophils % (A) 0 %; HCT 28.6 % (34.0-46.0); HGB 9.7 gm/dL (11.4-16.0); Lymphocytes # (A) 0.7 k/uL (1.0-4.8); Lymphocytes % (A) 6 %; MCH 33.1 pg (25.0-35.0); MCHC 34.1 g/dL (31.0-37.0); MCV 97.3 fL (80.0-100.0); Macrocytosis Slight; Mean Platelet Volume 9.7; Monocytes # (A) 0.6 k/uL (0-1.0); Monocytes % (A) 5 %; Neutrophils % (A) 85 %; Platelet Count 111 k/uL (150-450); Poikilocytosis Slight; RBC 2.94 m/uL (3.80-5.40); RDW 16.9 % (11.5-15.5); WBC 11.7 k/uL (3.8-10.6)
[2023-05-13 04:34] LABS: ALT 20 U/L (4-34); AST 43 U/L (14-36); African American GFR (CKD) 37 (>60 ml/min/1.73 sqM); Albumin 1.9 g/dL (3.5-5.0); Alkaline Phosphatase 218 U/L (38-126); Anion Gap 6 mmol/L; Blood Urea Nitrogen 44 mg/dL (7-17); Calcium 7.6 mg/dL (8.4-10.2); Carbon Dioxide 24 mmol/L (22-30); Chloride 102 mmol/L (98-107); Glucose 154 mg/dL (74-99); Magnesium 2.2 mg/dL (1.6-2.3); Non-African American GFR(CKD) 32 (>60 ml/min/1.73 sqM); Potassium 3.7 mmol/L (3.5-5.1); Sodium 132 mmol/L (137-145); Total Bilirubin 1.4 mg/dL (0.2-1.3); Total Protein 4.5 g/dL (6.3-8.2)
[2023-05-13] MEDS: POTASSIUM BICARBONATE/CIT AC 20 MEQ TABLET.EFF NG-TUBE SCH (05:17)
[2023-05-13 06:08] LABS: ABG Base Excess 3.3 mmol/L; ABG HCO3 27 mmol/L (21-25); ABG PCO2 35 mmHg (35-45); ABG PO2 118 mmHg (83-108); ABG TCO2 28 mmol/L (19-24); Allen Test Performed? Yes
--- NOTE | 2023-05-13 07:48 | P.PN ---
Progress Note - Text Progress Note Date: 05/13/23 S: Patient up in bed intubated. Patient had respiratory distress which required intubation is also on dialysis for kidney failure. O: Intubation tube is secure the patient's neck below the mandible has no swelling. Intraorally the tooth extraction site does not have any discharge. No fluctuance palpated on the lingual or buccal aspect of the mandible. A: Clinical resolution of vestibular swelling in area of extraction tooth #29. P: History was not possible today due to patient's intubated status. Clinically the swelling and discharge are gone from the right mandible. No other mandibular swelling noted intraoral acute abscess has resolved.
--- NOTE | 2023-05-13 08:55 | XR ---
EXAMINATION TYPE: XR chest 1V portable DATE OF EXAM: 05/13/2023 4:24 AM CLINICAL INDICATION:Female, 82 years old with history of Tube placement; [facility] COMPARISON: Chest radiographs from 05/12/2023 TECHNIQUE: XR chest 1V portable Frontal view of the chest. FINDINGS: Lungs/Pleura: No evidence of focal consolidation or pneumothorax. Blunting of the costophrenic angles is present. Pulmonary vascularity: Pulmonary vascular congestion. Heart/mediastinum: Cardiomediastinal silhouette is enlarged and stable. Musculoskeletal: No acute osseous pathology. Other findings: None Lines/Tubes: Endotracheal tube with distal tip 2.1 cm above the lizzie. Nasogastric tube with its distal tip and side-port projecting under the diaphragm. Left internal jugular central venous catheter with distal tip at the cavoatrial junction. Right internal jugular central venous catheter with distal tip at the cavoatrial junction. IMPRESSION: Stable exam, stable tubes and lines
--- NOTE | 2023-05-13 09:49 | P.PN ---
Subjective Patient is seen in follow-up for acute kidney injury. Intubated. On vasopressors. Urine output 10 to 15 cc an hour despite IV Lasix. Started on dialysis May 11, 2023. Tolerated nearly 3 L ultrafiltration yesterday. Vital signs are stable. On vasopressors. General: No acute distress. HEENT: Intubated. LUNGS: Scattered rhonchi. HEART: Rate and Rhythm are regular. ABDOMEN: Nontender. EXTREMITITES: 2+ edema. Objective - Vital Signs Vital signs: Vital Signs Temp 98.4 F 05/13/23 04:00 Pulse 92 05/13/23 08:47 Resp 20 05/13/23 07:00 BP 144/73 05/12/23 17:11 Pulse Ox 99 05/13/23 07:00 FiO2 40 05/13/23 08:31 Intake & Output 05/12/23 05/13/23 05/13/23 18:59 06:59 18:59 Intake Total 1815.033 902.250 268.465 Output Total 3225 179 10 Balance -1409.967 723.250 258.465 Weight 99.2 kg 98.8 kg Intake: IV 333 156 13 Anidulafungin 100 mg In 100 Sodium Chloride 0.9% 100 ml @ 84 mls/hr IVPB DAILY @1300 RONI Rx#:[id number] Arterial Pressure Bag NS 33 36 3 0.9% Dextrose 5%-0.9% NaCl 1, 100 120 10 000 ml @ 10 mls/hr IV . Q24H RONI Rx#:[id number] Dextrose 5%-0.9% NaCl 1, 50 000 ml @ 50 mls/hr IV . Q20H RONI Rx#:[id number] Ertapenem 0.5 gm In 50 Sodium Chloride 0.9% 50 ml @ 100 mls/hr IVPB DAILY RONI Rx#:[id number] Intake, IV Titration 652.033 514.250 223.465 Amount Norepinephrine 4 mg In 168.085 Sodium Chloride 0.9% 250 ml @ 0.03 MCG/KG/MIN 6.74 mls/hr IV .Q24H RONI Rx#: [id number] Norepinephrine 8 mg In 258.000 229.126 223.465 Sodium Chloride 0.9% 250 ml @ 0.03 MCG/KG/MIN 5. 759 mls/hr IV .Q24H RONI Rx#:[id number] Vasopressin 20 unit In 38.710 13.387 0 Sodium Chloride 0.9% 50 ml @ 0.03 UNITS/MIN 4.59 mls/hr IV .Q11H7M RONI Rx# :[id number] propofoL 1,000 mg In 187.238 271.737 Empty Bag 1 bag @ 15 MCG/ KG/MIN 8.802 mls/hr IV . [id number] RONI Rx#:[id number] Oral 0 Tube Feeding 70 232 32 Hemodialysis 700 Other 60 Output: Urine 225 179 10 Hemodialysis 3000 Other: Voiding Method Indwelling Catheter Indwelling Catheter ABP, PAP, CO, CI - Last Documented Arterial Blood Pressure 140/41 - Labs CBC & Chem 7: 05/13/23 04:00 05/13/23 04:00 Labs: Abnormal Lab Results - Last 24 Hours (Table) 05/11/23 05/12/23 05/12/23 Range/Units 08:56 12:22 13:10 WBC (3.8-10.6) k/uL RBC (3.80-5.40) m/uL Hgb (11.4-16.0) gm/dL Hct (34.0-46.0) % RDW (11.5-15.5) % Plt Count (150-450) k/uL Neutrophils # (1.3-7.7) k/uL Lymphocytes # (1.0-4.8) k/uL ABG pH 7.48 H (7.35-7.45) ABG pO2 125 H (83-108) mmHg ABG HCO3 27 H (21-25) mmol/L ABG Total CO2 28 H (19-24) mmol/L ABG O2 Saturation 99.2 H (94-97) % Sodium (137-145) mmol/L BUN (7-17) mg/dL Creatinine (0.52-1.04) mg/dL Glucose (74-99) mg/dL POC Glucose (mg/dL) 129 H (70-110) mg/dL Calcium (8.4-10.2) mg/dL Total Bilirubin (0.2-1.3) mg/dL AST (14-36) U/L Alkaline Phosphatase (38-126) U/L Total Protein (6.3-8.2) g/dL Albumin (3.5-5.0) g/dL Vitamin B12 >3600.0 H (200.0-944.0) pg/mL 05/12/23 05/12/23 05/12/23 Range/Units 17:12 20:16 23:47 WBC (3.8-10.6) k/uL RBC (3.80-5.40) m/uL Hgb (11.4-16.0) gm/dL Hct (34.0-46.0) % RDW (11.5-15.5) % Plt Count (150-450) k/uL Neutrophils # (1.3-7.7) k/uL Lymphocytes # (1.0-4.8) k/uL ABG pH (7.35-7.45) ABG pO2 (83-108) mmHg ABG HCO3 (21-25) mmol/L ABG Total CO2 (19-24) mmol/L ABG O2 Saturation (94-97) % Sodium (137-145) mmol/L BUN (7-17) mg/dL Creatinine (0.52-1.04) mg/dL Glucose (74-99) mg/dL POC Glucose (mg/dL) 166 H 162 H 173 H (70-110) mg/dL Calcium (8.4-10.2) mg/dL Total Bilirubin (0.2-1.3) mg/dL AST (14-36) U/L Alkaline Phosphatase (38-126) U/L Total Protein (6.3-8.2) g/dL Albumin (3.5-5.0) g/dL Vitamin B12 (200.0-944.0) pg/mL 05/13/23 05/13/23 05/13/23 Range/Units 04:00 04:00 04:00 WBC 11.7 H (3.8-10.6) k/uL RBC 2.94 L (3.80-5.40) m/uL Hgb 9.7 L (11.4-16.0) gm/dL Hct 28.6 L (34.0-46.0) % RDW 16.9 H (11.5-15.5) % Plt Count 111 L (150-450) k/uL Neutrophils # 10.0 H (1.3-7.7) k/uL Lymphocytes # 0.7 L (1.0-4.8) k/uL ABG pH (7.35-7.45) ABG pO2 (83-108) mmHg ABG HCO3 (21-25) mmol/L ABG Total CO2 (19-24) mmol/L ABG O2 Saturation (94-97) % Sodium 132 L (137-145) mmol/L BUN 44 H (7-17) mg/dL Creatinine 1.50 H (0.52-1.04) mg/dL Glucose 154 H (74-99) mg/dL POC Glucose (mg/dL) 172 H (70-110) mg/dL Calcium 7.6 L (8.4-10.2) mg/dL Total Bilirubin 1.4 H (0.2-1.3) mg/dL AST 43 H (14-36) U/L Alkaline Phosphatase 218 H (38-126) U/L Total Protein 4.5 L (6.3-8.2) g/dL Albumin 1.9 L (3.5-5.0) g/dL Vitamin B12 (200.0-944.0) pg/mL 05/13/23 Range/Units 06:05 WBC (3.8-10.6) k/uL RBC (3.80-5.40) m/uL Hgb (11.4-16.0) gm/dL Hct (34.0-46.0) % RDW (11.5-15.5) % Plt Count (150-450) k/uL Neutrophils # (1.3-7.7) k/uL Lymphocytes # (1.0-4.8) k/uL ABG pH 7.50 H (7.35-7.45) ABG pO2 118 H (83-108) mmHg ABG HCO3 27 H (21-25) mmol/L ABG Total CO2 28 H (19-24) mmol/L ABG O2 Saturation 99.0 H (94-97) % Sodium (137-145) mmol/L BUN (7-17) mg/dL Creatinine (0.52-1.04) mg/dL Glucose (74-99) mg/dL POC Glucose (mg/dL) (70-110) mg/dL Calcium (8.4-10.2) mg/dL Total Bilirubin (0.2-1.3) mg/dL AST (14-36) U/L Alkaline Phosphatase (38-126) U/L Total Protein (6.3-8.2) g/dL Albumin (3.5-5.0) g/dL Vitamin B12 (200.0-944.0) pg/mL Microbiology - Last 24 Hours (Table) 05/09/23 16:43 Anaerobic Culture - Preliminary Mandible - Right 05/12/23 01:15 Gram Stain - Preliminary Sputum 05/08/23 17:30 Anaerobic Culture - Final Mouth Sabrina albicans 05/11/23 08:56 Blood Culture - Preliminary Blood Assessment and Plan Plan: Assessment: 1. Acute kidney injury secondary to ATN secondary to septic shock. Creatinine 1.19 on admission and peaked at 3.07 this admission. Left kidney is small. No hydronephrosis noted. Started on hemodialysis May 11, 2023 due to volume overload. Urine output 10 to 15 cc an hour despite IV Lasix. 2. Septic shock on vasopressors. Concern for UTI versus dental abscess. 3. Hyperkalemia secondary to acute kidney injury and LR. Improved. 4. Volume overload. Improving with ultrafiltration. 5. Hypervolemic hyponatremia. 6. Non-ST elevated myocardial infarction. Plan: Currently seen while undergoing hemodialysis. Continue with daily dialysis for now. Challenge ultrafiltration as able to tolerate. Maintain IV Lasix. Wean vasopressors and FiO2. Maintain midodrine. Avoid nephrotoxins.
[2023-05-13 10:07] LABS: Glucose,Whole Blood 137 mg/dL (70-110)
--- NOTE | 2023-05-13 11:20 | P.PN ---
Subjective Progress Note Date: 05/13/23 Hospital Course: 82-year-old female with history of liver cirrhosis, CAD status post stent, chronic systolic heart failure, hypertension, dyslipidemia, chronic pancytopenia, ITP presented with chest pain and shortness of breath. On initial presentation, patient was tachycardic, tachypneic, saturating well on room air. EKG showed sinus tachycardia with known left bundle branch block. Chest x-ray showed pulmonary vascular interstitial markings. 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 CBC showing pancytopenia with WBC count of 1.6, hemoglobin 11.3, platelet count of 41. Coagulation profile showing elevated INR of 1.3. BMP showing hyponatremia with sodium of 131, elevated BUN of 33, creatinine 1.19, GFR 43. Liver profile showing elevated total bili of 4.2, AST of 44, ALT of 20, and alkaline phosphatase of 282. Troponin 0.064 and proBNP 2360. Troponin continues to uptrend. Cardiology was consulted. No invasive procedures recommended by cardiology. Echocardiogram showed mild LV systolic function decrease, severely enlarged left atrium. Orthopedic surgery was consulted, not recommending any interventions. Patient did get slightly more encephalopathic, and had low blood sugars, previous urinalysis was positive, urine culture was positive for ESBL. Repeat urinalysis shows a dirty sample. However, ID is consulted, patient is on IV antibiotics, ertapenem. Patient also developed oliguric SCOOTER. CT face showed neck mass of 3 x 4 cm and right maxillary inflammatory changes. ENT and maxillofacial surgery were consulted. ENT recommended IR consult for consideration of needle biopsy of left neck mass, however, upon review, r adiology deferred this procedure due to having stable imaging/finding of left neck mass/thyroid mass from prior imaging. Patient was however scheduled for dental extraction with abscess drainage of the right mandible. Patient had been transitioned to the ICU on 05/07 for septic shock requiring vasopressor, and had a requirement of 0.14. Underwent surgical extraction of tooth. On 05/12/2023 patient became more encephalopathic, hypercapnic respiratory failure. Also requiring increasing amount of pressors and became oliguric. She was intubated, started on vasopressin, also had dialysis catheter placed and started on dialysis. Data reviewed: WBC 11.7, hemoglobin 9.7, platelet 111, pH 7.5, pCO2 35, sodium 132, potassium 3.7, creatinine 1.5, blood sugars range between 1 37-1 73, magnesium 2.2, ammonia 24 Chest x-ray independently interpreted, No changes Subjective: Patient seen and examined at bedside. Continues to remain on vasopressors, minimal urine output, intubated and sedated. Vitals Signs Reviewed. General: Intubated and sedated Derm: Warm, dry, jaundice Head: Atraumatic, normocephalic, symmetric Eyes: scleral icterus, equal and reactive pupil Mouth: No lip lesion, mucus membranes moist Cardiovascular: S1S2 reg, no murmur Lungs: no accessory muscle use, intubated Abdominal: Soft, nondistended Ext: No gross muscle atrophy, generalized anasarca, no contractures Neuro: Sedated Psych: Unable to assess Assessment and Plan: Patient is critically ill, prognosis guarded Acute hypercapnic respiratory failure Acute metabolic encephalopathy Septic Shock, unclear source Questionable urinary tract infection, prior cultures growing ESBL Dental abscess status post surgical extraction Liver cirrhosis Pancytopenia, improving Hyperbilirubinemia -Patient currently intubated and sedated, pulmonology following,, continue to wean pressors, continue respiratory support, continue hemodialysis - ID following, patient on ertapenem 0.5 g IV daily, on daptomycin 400 mg IV rich ry 48 hours, Eraxis 100 mg IV daily - continue levophed and vasopressin, continue to wean On oral gabapentin 100 3 times daily -Patient was on primidone for tremors, discontinued - Lactulose 30 daily, patient has not had bowel movements in 3 days Oliguric SCOOTER, now on hemodialysis Hyponatremia Mild hypokalemia -nephrology note reviewed, continue hemodialysis, continue 60 mg IV Lasix twice daily, maintain midodrine -hourly strict UOP measurement -On D5 normal saline at 10 cc an hour continue midodrine 10 AC 3 times daily Repeat BMP and magnesium tomorrow NSTEMI, likely type II New onset Afib with controlled ventricular rate History of CAD status post stent -Cardiology recommending medical management for NSTEMI -Continue aspirin 81 mg, on pravastatin 80 mg -On amiodarone 200 twice daily for rate control, no anticoagulation due to thrombocytopenia -Continue home metoprolol 12.5 daily Compression fracture of T7 and T8 Acute left posterior eighth rib fracture Fracture of the coronoid process of the left scapula -Orthopedic surgery signed off, patient not a surgical candidate Thyroid mass -Outpatient follow-up DVT ppx: Started on subcu heparin Code status: Full code Anticipated discharge place: Pending clinical course Anticipated discharge time: Pending clinical course Objective - Vital Signs Vital signs: Vital Signs Temp 98.0 F 05/13/23 11:11 Pulse 82 05/13/23 11:11 Resp 22 05/13/23 11:11 BP 140/47 05/13/23 11:11 Pulse Ox 99 05/13/23 10:00 FiO2 40 05/13/23 09:00 Intake & Output 05/12/23 05/13/23 05/13/23 18:59 06:59 18:59 Intake Total 1815.033 902.250 809.465 Output Total 3225 179 2450 Balance -1409.967 723.250 -1640.535 Weight 99.2 kg 98.8 kg 98.8 kg Intake: IV 333 156 22 Anidulafungin 100 mg In 100 Sodium Chloride 0.9% 100 ml @ 84 mls/hr IVPB DAILY @1300 RONI Rx#:[id number] Arterial Pressure Bag NS 33 36 12 0.9% Dextrose 5%-0.9% NaCl 1, 100 120 10 000 ml @ 10 mls/hr IV . Q24H RONI Rx#:[id number] Dextrose 5%-0.9% NaCl 1, 50 000 ml @ 50 mls/hr IV . Q20H RONI Rx#:[id number] Ertapenem 0.5 gm In 50 Sodium Chloride 0.9% 50 ml @ 100 mls/hr IVPB DAILY [facility]ONI Rx#:[id number] Intake, IV Titration 652.033 514.250 323.465 Amount Norepinephrine 4 mg In 168.085 Sodium Chloride 0.9% 250 ml @ 0.03 MCG/KG/MIN 6.74 mls/hr IV .Q24H [facility]ONI Rx#: [id number] Norepinephrine 8 mg In 258.000 229.126 223.465 Sodium Chloride 0.9% 250 ml @ 0.03 MCG/KG/MIN 5. 759 mls/hr IV .Q24H [facility]ONI Rx#:[id number] Vasopressin 20 unit In 38.710 13.387 0 Sodium Chloride 0.9% 50 ml @ 0.03 UNITS/MIN 4.59 mls/hr IV .Q11H7M [facility]I Rx# :[id number] propofoL 1,000 mg In 187.238 271.737 100 Empty Bag 1 bag @ 15 MCG/ KG/MIN 8.802 mls/hr IV . [id number] [facility] Rx#:[id number] Oral 0 Tube Feeding 70 232 64 Hemodialysis 700 400 Other 60 Output: Urine 225 179 50 Hemodialysis 3000 2400 Other: Voiding Method Indwelling Catheter Indwelling Catheter Indwelling Catheter # Bowel Movements 0 ABP, PAP, CO, CI - Last Documented Arterial Blood Pressure 141/55 - Labs CBC & Chem 7: 05/13/23 04:00 05/13/23 04:00 Labs: Abnormal Lab Results - Last 24 Hours (Table) 05/11/23 05/12/23 05/12/23 Range/Units 08:56 12:22 13:10 WBC (3.8-10.6) k/uL RBC (3.80-5.40) m/uL Hgb (11.4-16.0) gm/dL Hct (34.0-46.0) % RDW (11.5-15.5) % Plt Count (150-450) k/uL Neutrophils # (1.3-7.7) k/uL Lymphocytes # (1.0-4.8) k/uL ABG pH 7.48 H (7.35-7.45) ABG pO2 125 H (83-108) mmHg ABG HCO3 27 H (21-25) mmol/L ABG Total CO2 28 H (19-24) mmol/L ABG O2 Saturation 99.2 H (94-97) % Sodium (137-145) mmol/L BUN (7-17) mg/dL Creatinine (0.52-1.04) mg/dL Glucose (74-99) mg/dL POC Glucose (mg/dL) 129 H (70-110) mg/dL Calcium (8.4-10.2) mg/dL Total Bilirubin (0.2-1.3) mg/dL AST (14-36) U/L Alkaline Phosphatase (38-126) U/L Total Protein (6.3-8.2) g/dL Albumin (3.5-5.0) g/dL Vitamin B12 >3600.0 H (200.0-944.0) pg/mL 05/12/23 05/12/23 05/12/23 Range/Units 17:12 20:16 23:47 WBC (3.8-10.6) k/uL RBC (3.80-5.40) m/uL Hgb (11.4-16.0) gm/dL Hct (34.0-46.0) % RDW (11.5-15.5) % Plt Count (150-450) k/uL Neutrophils # (1.3-7.7) k/uL Lymphocytes # (1.0-4.8) k/uL ABG pH (7.35-7.45) ABG pO2 (83-108) mmHg ABG HCO3 (21-25) mmol/L ABG Total CO2 (19-24) mmol/L ABG O2 Saturation (94-97) % Sodium (137-145) mmol/L BUN (7-17) mg/dL Creatinine (0.52-1.04) mg/dL Glucose (74-99) mg/dL POC Glucose (mg/dL) 166 H 162 H 173 H (70-110) mg/dL Calcium (8.4-10.2) mg/dL Total Bilirubin (0.2-1.3) mg/dL AST (14-36) U/L Alkaline Phosphatase (38-126) U/L Total Protein (6.3-8.2) g/dL Albumin (3.5-5.0) g/dL Vitamin B12 (200.0-944.0) pg/mL 05/13/23 05/13/23 05/13/23 Range/Units 04:00 04:00 04:00 WBC 11.7 H (3.8-10.6) k/uL RBC 2.94 L (3.80-5.40) m/uL Hgb 9.7 L (11.4-16.0) gm/dL Hct 28.6 L (34.0-46.0) % RDW 16.9 H (11.5-15.5) % Plt Count 111 L (150-450) k/uL Neutrophils # 10.0 H (1.3-7.7) k/uL Lymphocytes # 0.7 L (1.0-4.8) k/uL ABG pH (7.35-7.45) ABG pO2 (83-108) mmHg ABG HCO3 (21-25) mmol/L ABG Total CO2 (19-24) mmol/L ABG O2 Saturation (94-97) % Sodium 132 L (137-145) mmol/L BUN 44 H (7-17) mg/dL Creatinine 1.50 H (0.52-1.04) mg/dL Glucose 154 H (74-99) mg/dL POC Glucose (mg/dL) 172 H (70-110) mg/dL Calcium 7.6 L (8.4-10.2) mg/dL Total Bilirubin 1.4 H (0.2-1.3) mg/dL AST 43 H (14-36) U/L Alkaline Phosphatase 218 H (38-126) U/L Total Protein 4.5 L (6.3-8.2) g/dL Albumin 1.9 L (3.5-5.0) g/dL Vitamin B12 (200.0-944.0) pg/mL 05/13/23 05/13/23 Range/Units 06:05 10:04 WBC (3.8-10.6) k/uL RBC (3.80-5.40) m/uL Hgb (11.4-16.0) gm/dL Hct (34.0-46.0) % RDW (11.5-15.5) % Plt Count (150-450) k/uL Neutrophils # (1.3-7.7) k/uL Lymphocytes # (1.0-4.8) k/uL ABG pH 7.50 H (7.35-7.45) ABG pO2 118 H (83-108) mmHg ABG HCO3 27 H (21-25) mmol/L ABG Total CO2 28 H (19-24) mmol/L ABG O2 Saturation 99.0 H (94-97) % Sodium (137-145) mmol/L BUN (7-17) mg/dL Creatinine (0.52-1.04) mg/dL Glucose (74-99) mg/dL POC Glucose (mg/dL) 137 H (70-110) mg/dL Calcium (8.4-10.2) mg/dL Total Bilirubin (0.2-1.3) mg/dL AST (14-36) U/L Alkaline Phosphatase (38-126) U/L Total Protein (6.3-8.2) g/dL Albumin (3.5-5.0) g/dL Vitamin B12 (200.0-944.0) pg/mL Microbiology - Last 24 Hours (Table) 05/09/23 16:43 Anaerobic Culture - Preliminary Mandible - Right 05/12/23 01:15 Gram Stain - Preliminary Sputum 05/08/23 17:30 Anaerobic Culture - Final Mouth Sabrina albicans 05/11/23 08:56 Blood Culture - Preliminary Blood
--- NOTE | 2023-05-13 14:18 | P.PN ---
Subjective Progress Note Date: 05/13/23 This is an 82-year-old female patient with a history of liver cirrhosis, pancytopenia, coronary artery disease with previous stent placement, compression fracture of T7 and T8, acute left posterior eighth rib fracture, thyroid mass, new onset atrial fibrillation and non-ST segment elevation myocardial in farction. She had been admitted back on 04/29/2023 with chest pain and shortness of breath. Echocardiogram revealed impaired left ventricular systolic function with ejection fraction 45%. She was being cared for on the selective care unit. Last evening at a approximately 1145 and rapid response team was called due to hypotension with blood pressure 70 over 40s. She received 100 mL of fluid res uscitation and was transferred to the intensive care unit and initiated on norepinephrine. She is seen today in consultation. She is lethargic. Minimally responsive. She had been calling out in pain earlier. When she was repositioned she settled down. This is felt to be secondary to her compression fractures and rib fractures. He does have a stage II decubitus ulcer. She also has severe suspected neuropathy of the bilateral lower extremities. She is maintaining good O2 saturation in the mid 90s on 2 L/min per nasal cannula. 0.08 mcg/kg/min. She has normal staying at 80 MLS per hour. White count 11.9. Platelets 55,000. Sodium 130. Potassium 4.9. Bicarb 33. BUN 74. Creatinine 2.78. Glucose 137. Urine culture reveals no growth. Currently on ertapenem. X-ray reveals cardiomegaly with mild central vascular congestion and interstitial opacities suggesting edema. Small to moderate bibasilar pleural effusions with adjacent atelectasis. On today's evaluation of 05/09/2023, the patient is being seen for a follow-up. As mentioned, the patient was transferred to the intensive care unit yesterday because of hypotension. She has multiple medical problems including coronary artery disease and previous coronary intervention and stenting and the patient also has liver cirrhosis, and she did encounter a new onset atrial fibrillation. At the same time, the patient is suspected to be septic. The patient has been treated with IV fluids. The patient continues to be on pressors and the patient is currently on norepinephrine running 0.14 mcg/kg/min. IV fluids are running in the rate of 50 cc an hour of normal saline. The patient is currently on IV Invanz. The white cell count today is 11.1. Hemoglobin is at 11 and a platelet count is at 55. Note that the patient has chronic thrombocytopenia related to her chronic liver disease. She also had an acute kidney injury and the creatinine peaked at 3 and currently is downtrending down to 2.65. Potassium level today is at 5.8 with a sodium level of 132. LFTs are abnormal with an alkaline phosphatase of 314, AST of 51 and ALT of 21. Her procalcitonin level was at 2.53 and her free T4 was 1.36 with a TSH of 5.9. UA was abnormal suspicious for an underlying urinary tract infection and cultures are still pen ding for now. Meanwhile, the CAT scan of the abdomen and pelvis that was obtained on 05/04/2023 showed no evidence of any acute intra-abdominal process. Nodular contour of the liver was suggestive of liver cirrhosis and the patient had signs of portal hypertension and cardiomegaly and pulm vascular congestion. The CAT scan of the face that was done on 05/04/2023 showed a soft tissue masslike area in the inferior left neck measuring 47 x 36 mm in size and inflammatory changes along the right mandible without an organizing collection. A head and neck abscess cannot be completely ruled out at this point in time. Neurologically, the patient is encephalopathic. She has episodes of crying and yelling and she remains altered. Her the serum ammonia level was 17. The patient remains on lactulose which is unfortunately being given through the rectal source which is causing significant amount of contamination. At the same time, cardiac rhythm is currently controlled and she remains in atrial fibrillation. She remains on amiodarone 200 mg p.o. twice a day. The Toprol has been placed on hold based on her underlying hypotension. Her echocardiogram from 04/30/2023 showed a ejection fraction of 45%, mild RV dilatation, mild mitral regurgitation, no other significant abnormalities noted. On today's evaluation of 05/10/2023, the patient is being seen for a follow-up. The patient is in the intensive care unit for sepsis and hypotension. Note that the patient underwent an evaluation by the oral surgeon yesterday and the patient was found to have a dental abscess tooth #29 and surgical extraction of the tooth was done and cultures were sent. At the same time, we are suspecting an underlying urine tract infection as another source of sepsis the patient and the patient is currently on IV Invanz as the patient has had previous ESBL producing E. coli in her urine based on the culture that was obtained on 04/26/2023. The patient remains on pressors. She is on norepinephrine running at 0.15 mcg/kg/min. IV fluids are in the form of D5.9 at the rate of 50 cc an hour. Urine output is in order of 30 cc an hour and there is also interval improvement of creatinine which is down to 2.4 with a BUN of 78. Sodium levels at 133 with a potassium level of 5.2. The white cell count is at 10.2 with a hemoglobin of 10.4 and a platelet count of 85. Note that the patient has chronic thrombocytopenia related to her chronic liver disease. She is arousable. She is awake. She is on oxygen at 2 L with a pulse ox of 96%. On 05/11/2023, the patient is more lethargic compared to yesterday. There has been progressive worsening in her mentation and this has been noted throughout the day. In the morning, she was still arousable and later on during the day, the patient became quite obtunded. Based on that, the patient was given a stat CAT scan of the brain that showed no acute intracranial abnormalities. The patient's CAT scan of the brain showed Moderate bifrontal atrophy and old lacunar infarct in the left basal ganglia. There was also slightly heterogeneous appearance of the brainstem felt to be related to a prominent skull base artifact. Subsequently, the patient was given a blood gas that showed a pH of 7.11 with a pCO2 of 93 and pO2 117 and the patient's mental status is most like related to hypercapnic respiratory failure and CO2 narcosis. Chest x-ray that was done earlier this morning that showed cardiomegaly and pulm vascular congestion but the pleural fluid. Fluid balance has been +1 L over the past 24 hours and the patient has been persistently in a positive fluid balance and the patient has diffuse anasarca related to her liver failure and sepsis. The BUN is at 72 with a creatinine of 2.4 and sodium is at 136. WBC count is at 8.2 with a hemoglobin 9.8 and a platelet count of 76. She remains hypotensive. She remains on pressors and the patient is currently on norepinephrine running at 0.09 mcg/kg/min. Her pressor requirements are sligh tly improved compared to yesterday. She remains on D5 normal saline today stopped 50 cc an hour.. In terms of her cultures, the patient's oral culture is showing some anaerobic growth. She also has Sabrina albicans. Blood cultures were negative. Urine cultures also been negative. The patient remains on IV antibiotics and antibiotics has been modified to a combination of IV Eraxis, daptomycin and IV Invanz. on today's evaluation of 05/12/2023, I am seeing the patient for a follow-up. Events from yesterday were noted. The patient went into hypercapnic respiratory failure and she became altered and obtunded and based on that, and that intubating the patient and placed on mechanical ventilator for acute on chronic hypoxic and hypercapnic respiratory failure. Also, the patient was in significant fluid overload. Immediately postintubation, dialysis catheter was obtained and the patient was started on hemodialysis with ultrafiltration and a total of 2 L of fluid was removed yesterday. This morning, the patient remains intubated on the mechanical ventilator. She is currently on propofol running at 40 mcg/kg/min. She is on assist-control with rate of 26 with a tidal volume of 400 FiO2 40% with a PEEP of 5. Blood gas from this morning showed respiratory alkalosis with a pH of 7.58 and a pCO2 of 29 and pO2 of 77. Based on that, the respiratory rate was dropped down to 77. Chest x-ray from today showing cardiomegaly. There is bilateral pleural effusion worse on the right which is slightly improved compared to yesterday. ET tube is in a good location and the patient also has a triple-lumen catheter in her left IJ and a dialysis catheter in her right IJ. She is still hypotensive. Norepinephrine is running at 0.16 mcg/kg/min. The patient is also on physiologic dose of vasopressin A arterial line catheter was also inserted yesterday and her blood pressure is stable for now with a mean arterial pressure of around 80. Her cardiac rhythm is atrial fibrillation. In terms of the rest of the blood work, the patient has a white cell count of 12.2 with a hemoglobin 9.8 and a platelet count of 103. BUN is at 56 and the creatinine is up down to 1.7. Potassium is down to 4.5 and his sodium level is at 135. Her serum ammonia level is at 23. She continues to melvin ve significant amount of third spacing, peripheral edema and diffuse anasarca. In terms of her antibiotic coverage, the patient is currently on a combination of IV Invanz, daptomycin and Eraxis. Enteral feeding has not been started yet. On today's evaluation of 05/13/2023, the patient is being seen for a follow-up. The patient remains intubated on the mechanical ventilator. On today's evalua tion, the patient is on propofol which is running at 40 mcg/kg/min. The patient is calm and comfortable and the patient is essentially centralized on the mechanical ventilator. On today's evaluation, the patient is on assist-control mode of mechanical ventilation and she is on a rate of 20, tidal volume of 400, FiO2 at 40% with a PEEP of 5. The chest x-ray is showing cardiomegaly and bilateral pleural effusions slightly improved and the ET tube is in a good location. The blood gas show a pH of 7.50 with a pCO2 of 35 and a pO2 of 118 and this was on FiO2 of 40%. No significant orotracheal secretions. The patient hemodynamically is still pressor dependent. She is currently on norepinephrine running at 0.2 mcg/kg/min and her norepinephrine dose is being titrated as the patient is undergoing hemodialysis and she is having variation and fluctuations in blood pressure. She is also on physiologic dose of vasopressin. No other hemodialysis was performed yesterday with a total of 2 point liters of ultrafiltration. Another session of hemodialysis being done today. The patient remains on Lasix 60 mg IV push every 12 hours. The fluid balance over the past 24 hours has been negative as the patient is making some urine output in the same time the patient is being dialyzed and ultrafiltrate it. Antibiotic coverage includes a combination of Invanz, Eraxis and daptomycin. Note that the patient had blood culture sent and the results are still pending for now. The cultures from the mouth and the right mandible were positive for staph hemolyticus and Sabrina albicans. The patient at the same time is in atrial fibrillation. The patient is on vital high-protein at the rate of 32 cc an hour and the patient seems to be tolerating her enteral feeding without any major difficulties. WBC count 11.7 with a hemoglobin 9.7 and a platelet count of 111. Sodium is at 132 with a potassium level of 3.7, BUN is 44 with a creatinine of 1.5 and a glucose of 154. LFTs are showing some mild elevation of the alkaline phosphatase at 218 and a total of 10 protein is at 4.5 with an albumin of 1.9. Objective - Vital Signs Vital signs: Vital Signs Temp 98.0 F 05/13/23 11:11 Pulse 98 05/13/23 13:04 Resp 22 05/13/23 11:11 BP 140/47 05/13/23 11:11 Pulse Ox 99 05/13/23 10:00 FiO2 40 05/13/23 12:43 Intake & Output 05/12/23 05/13/23 05/13/23 18:59 06:59 18:59 Intake Total 1815.033 902.250 809.465 Output Total 3225 179 2450 Balance -1409.967 723.250 -1640.535 Weight 99.2 kg 98.8 kg 98.8 kg Intake: IV 333 156 22 Anidulafungin 100 mg In 100 Sodium Chloride 0.9% 100 ml @ 84 mls/hr IVPB DAILY @1300 [facility] Rx#:[id number] Arterial Pressure Bag NS 33 36 12 0.9% Dextrose 5%-0.9% NaCl 1, 100 120 10 000 ml @ 10 mls/hr IV . Q24H [facility] Rx#:[id number] Dextrose 5%-0.9% NaCl 1, 50 000 ml @ 50 mls/hr IV . Q20H [facility] Rx#:[id number] Ertapenem 0.5 gm In 50 Sodium Chloride 0.9% 50 ml @ 100 mls/hr IVPB DAILY [facility] Rx#:[id number] Intake, IV Titration 652.033 514.250 323.465 Amount Norepinephrine 4 mg In 168.085 Sodium Chloride 0.9% 250 ml @ 0.03 MCG/KG/MIN 6.74 mls/hr IV .Q24H [facility] Rx#: [id number] Norepinephrine 8 mg In 258.000 229.126 223.465 Sodium Chloride 0.9% 250 ml @ 0.03 MCG/KG/MIN 5. 759 mls/hr IV .Q24H [facility] Rx#:[id number] Vasopressin 20 unit In 38.710 13.387 0 Sodium Chloride 0.9% 50 ml @ 0.03 UNITS/MIN 4.59 mls/hr IV .Q11H7M [facility] Rx# :[id number] propofoL 1,000 mg In 187.238 271.737 100 Empty Bag 1 bag @ 15 MCG/ KG/MIN 8.802 mls/hr IV . [id number] [facility] Rx#:[id number] Oral 0 Tube Feeding 70 232 64 Hemodialysis 700 400 Other 60 Output: Urine 225 179 50 Hemodialysis 3000 2400 Other: Voiding Method Indwelling Catheter Indwelling Catheter Indwelling Catheter # Bowel Movements 0 ABP, PAP, CO, CI - Last Documented Arterial Blood Pressure 141/55 - Exam GENERAL EXAM:, Comfortable, sedated, currently on propofol, intubated on mechanical ventilator. Orogastric and orotracheal tube are both in place. HEAD: Normocephalic. EYES: Normal reaction of pupils, equal size. NOSE: Clear with pink turbinates. THROAT: No erythema or exudates. Unable to feel any collection in her mandibular area or neck area to suggest any abscess or masses. She does have however very poor dental condition with multiple decayed teeth and several teeth are missing. The incisors in the lower mandible are rotten and broken and decayed and the gum is pale with occasional areas of patchy redness. Note that the patient had an extraction of tooth #29 and the stitches are in place NECK: No masses, no JVD. The patient has a left IJ triple-lumen catheter in the right IJ dialysis catheter. CHEST: No chest wall deformity. LUNGS: Equal air entry with bibasilar crackles. CVS: S1 and S2 normal with no audible murmur, regular rhythm. ABDOMEN: No hepatosplenomegaly, normal bowel sounds, no guarding or rigidity. There is evidence of anterior abdominal wall edema and ascites. SPINE: No scoliosis or deformity SKIN: Stage II coccyx ulcer CENTRAL NERVOUS SYSTEM: Diminished level of consciousness. Withdraws only to deep painful stimulation. Unable to communicate at this point in time. EXTREMITIES: There is 3+ peripheral edema. No clubbing, no cyanosis. Pe ripheral pulses are intact. - Labs CBC & Chem 7: 05/13/23 04:00 05/13/23 04:00 Labs: Abnormal Lab Results - Last 24 Hours (Table) 05/11/23 05/12/23 05/12/23 Range/Units 08:56 17:12 20:16 WBC (3.8-10.6) k/uL RBC (3.80-5.40) m/uL Hgb (11.4-16.0) gm/dL Hct (34.0-46.0) % RDW (11.5-15.5) % Plt Count (150-450) k/uL Neutrophils # (1.3-7.7) k/uL Lymphocytes # (1.0-4.8) k/uL ABG pH (7.35-7.45) ABG pO2 (83-108) mmHg ABG HCO3 (21-25) mmol/L ABG Total CO2 (19-24) mmol/L ABG O2 Saturation (94-97) % Sodium (137-145) mmol/L BUN (7-17) mg/dL Creatinine (0.52-1.04) mg/dL Glucose (74-99) mg/dL POC Glucose (mg/dL) 166 H 162 H (70-110) mg/dL Calcium (8.4-10.2) mg/dL Total Bilirubin (0.2-1.3) mg/dL AST (14-36) U/L Alkaline Phosphatase (38-126) U/L Total Protein (6.3-8.2) g/dL Albumin (3.5-5.0) g/dL Vitamin B12 >3600.0 H (200.0-944.0) pg/mL 05/12/23 05/13/23 05/13/23 Range/Units 23:47 04:00 04:00 WBC 11.7 H (3.8-10.6) k/uL RBC 2.94 L (3.80-5.40) m/uL Hgb 9.7 L (11.4-16.0) gm/dL Hct 28.6 L (34.0-46.0) % RDW 16.9 H (11.5-15.5) % Plt Count 111 L (150-450) k/uL Neutrophils # 10.0 H (1.3-7.7) k/uL Lymphocytes # 0.7 L (1.0-4.8) k/uL ABG pH (7.35-7.45) ABG pO2 (83-108) mmHg ABG HCO3 (21-25) mmol/L ABG Total CO2 (19-24) mmol/L ABG O2 Saturation (94-97) % Sodium 132 L (137-145) mmol/L BUN 44 H (7-17) mg/dL Creatinine 1.50 H (0.52-1.04) mg/dL Glucose 154 H (74-99) mg/dL POC Glucose (mg/dL) 173 H (70-110) mg/dL Calcium 7.6 L (8.4-10.2) mg/dL Total Bilirubin 1.4 H (0.2-1.3) mg/dL AST 43 H (14-36) U/L Alkaline Phosphatase 218 H (38-126) U/L Total Protein 4.5 L (6.3-8.2) g/dL Albumin 1.9 L (3.5-5.0) g/dL Vitamin B12 (200.0-944.0) pg/mL 05/13/23 05/13/23 05/13/23 Range/Units 04:00 06:05 10:04 WBC (3.8-10.6) k/uL RBC (3.80-5.40) m/uL Hgb (11.4-16.0) gm/dL Hct (34.0-46.0) % RDW (11.5-15.5) % Plt Count (150-450) k/uL Neutrophils # (1.3-7.7) k/uL Lymphocytes # (1.0-4.8) k/uL ABG pH 7.50 H (7.35-7.45) ABG pO2 118 H (83-108) mmHg ABG HCO3 27 H (21-25) mmol/L ABG Total CO2 28 H (19-24) mmol/L ABG O2 Saturation 99.0 H (94-97) % Sodium (137-145) mmol/L BUN (7-17) mg/dL Creatinine (0.52-1.04) mg/dL Glucose (74-99) mg/dL POC Glucose (mg/dL) 172 H 137 H (70-110) mg/dL Calcium (8.4-10.2) mg/dL Total Bilirubin (0.2-1.3) mg/dL AST (14-36) U/L Alkaline Phosphatase (38-126) U/L Total Protein (6.3-8.2) g/dL Albumin (3.5-5.0) g/dL Vitamin B12 (200.0-944.0) pg/mL Microbiology - Last 24 Hours (Table) 05/09/23 16:43 Anaerobic Culture - Preliminary Mandible - Right 05/12/23 01:15 Gram Stain - Preliminary Sputum 05/08/23 17:30 Anaerobic Culture - Final Mouth Sabrina albicans 05/11/23 08:56 Blood Culture - Preliminary Blood Assessment and Plan Plan: Acute on chronic hypoxic and hypercapnic respiratory failure, essential related to massive fluid overload and development of bilateral pleural effusion. The patient had significant hypercapnic respiratory failure causing CO2 narcosis and altered mentation and obtundation. CAT scan of the brain was negative. The patient was initially placed on a BiPAP and subsequently the patient was intubated and placed on the mechanical ventilator. For now, the patient remains on the mechanical ventilator. The chest x-ray showing bilateral pleural effusions slightly improved volume status with dialysis and ultrafiltration. Altered mentation with diminished level of consciousness and the patient is quite obtunded at this point in time. This is related to hypercapnic respiratory failure and CO2 narcosis. Please refer to the blood gas that shows an acute hypercapnic respiratory failure most likely due to fluid overload and development of bilateral pleural effusion. The patient is currently debated on mechanical ventilator the patient is sedated with propofol Sepsis with secondary hypotension requiring pressor support secondary to sepsis of unclear etiology, possible dental abscess, questionable urinary tract infection with previous cultures of ESBL the patient currently is on norepinephrine running at 0. 2 mcg/kg/min and IV fluids will be switched to KVO as the patient has significant anasarca and third spacing and fluid overload.. She is still pressor dependent. Echocardiogram that was done on 04/30/2023 showed an ejection fraction of 45% and the patient does not have any significant valvular abnormalities. Oral cultures are positive for anaerobes and Sabrina. Blood cultures urine cultures have been negative. The patient continues to be pressor dependent and the patient is currently on a combination of nore pinephrine and vasopressin Patient has chronic gross decay of all remaining lower teeth. Appears to have spontaneous drainage of pus emanating from the sulcus of tooth #29 which was cultured. The patient is status post extraction of tooth #[address] Fine and cultures were also sent. Cultures from the mandible was positive for staph saprophyticus. Bilateral pleural effusion right more than left Acute kidney injury secondary to above, creatinine is stable and the patient continues to be oliguric and the patient has been in positive fluid balance, started hemodialysis. Last hemodialysis session was done yesterday with a total of 2.3 L of ultrafiltration. Another session to be done today Acute hyperkalemia, improved None anion gap metabolic acidosis, improved Acute pain secondary to compression fractures of T7 and T8 and acute left posterior eighth rib fracture Neuropathy Stage II decubitus ulcer History of liver cirrhosis Pancytopenia Non-ST segment elevation myocardial infarction New onset atrial fibrillation with controlled ventricular response 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 Plan: Continue ventilator support and drop respiratory rate down to 14. Continue hemodialysis and the second session of hemodialysis with an ultrafiltration will be done today, last hemodialysis session was done yesterday Chest x-ray still showing bilateral pleural effusions IV fluids down to KVO Continue IV Lasix Continue pressors, currently on 0 0. 2 mcg/kg/min of norepinephrine, the patient's pressors will be gradually weaned off based on her mean arterial pressure. The patient is also on physiologic dose of vasopressin. Will support with pressors during hemodialysis and increase the dose if needed. Otherwise the plan is to gradually wean off the pressors based on her mean arterial pressure. Continue IV Invanz, Eraxis and daptomycin and infectious disease on the case Pending further cultures and the patient had extraction of tooth #29 Lactulose to be continued to establish a daily soft bowel movement, ammonia levels are being monitored and the most recent ammonia level is down to 24 The patient will be started on enteral feeding for nutritional support and dietary consultation will be obtained Continue Lasix per nephrology recommendation Case was discussed with the family at length. I updated the daughter yesterday on her condition. Condition is obviously critical. Will continue to follow and make further recommendation based on her progress. Condition is critical in this evaluation with a more than 30 minutes. Time with Patient: Greater than 30
--- NOTE | 2023-05-13 15:02 | P.PN ---
Subjective Progress Note Date: 05/13/23 Principal diagnosis: Reason for follow-up is leukocytosis and UTI Patient is a 82-year-old female with a past medical history significant for hypertension hyperlipidemia thrombocytopenia cirrhosis of the liver [place] osteoarthritis patient was brought into the ER for evaluation of chest pain patient subsequently did have significant worsening of her mentation did have a positive UA concerning for possible component of UTI, with subsequent workup that shows evidence of dental abscess especially to tooth #29, patient did have extraction of tooth #29 along with drainage of the abscess completed on 05/09/2023.Patient did have dialysis catheter placement evening of 05/11/2023 subsequently patient did have a worsening respiratory status ended up getting intubated on 05/11/2023, the patient did get a dialysis catheter on 05/11/2023 and has been started on dialysis On today's visit that is 05/13/2023,the patient remains to be afebrile, the patient remains to be intubated on the vent FiO2 is currently at 40% no significant purulent secretions through the ET patient still requiring pressor support and the patient did get dialysis this morning and did have some sedation holiday however the patient not waking up in the nursing staff no diarrhea has been reported. Patient white count is 11.7 creatinine is 1.50 sputum and blood cultures currently pending Objective - Vital Signs Vital signs: Vital Signs Temp 98.2 F 05/13/23 12:00 Pulse 105 H 05/13/23 14:45 Resp 19 05/13/23 14:45 BP 140/47 05/13/23 11:11 Pulse Ox 98 05/13/23 14:45 FiO2 40 05/13/23 14:00 Intake & Output 05/12/23 05/13/23 05/13/23 18:59 06:59 18:59 Intake Total 1815.033 186.776 0298.289 Output Total 3225 179 2460 Balance -1409.967 723.250 -1138.711 Weight 99.2 kg 98.8 kg 98.8 kg Intake: IV 333 156 234 Anidulafungin 100 mg In 100 100 Sodium Chloride 0.9% 100 ml @ 84 mls/hr IVPB DAILY @1300 [facility] Rx#:[id number] Arterial Pressure Bag NS 33 36 24 0.9% DAPTOmycin 400 mg In 50 Sodium Chloride 0.9% 50 ml @ 100 mls/hr IVPB Q48H [facility] Rx#:[id number] Dextrose 5%-0.9% NaCl 1, 100 120 10 000 ml @ 10 mls/hr IV . Q24H [facility] Rx#:[id number] Dextrose 5%-0.9% NaCl 1, 50 000 ml @ 50 mls/hr IV . Q20H [facility] Rx#:[id number] Ertapenem 0.5 gm In 50 50 Sodium Chloride 0.9% 50 ml @ 100 mls/hr IVPB DAILY [facility] Rx#:[id number] Intake, IV Titration 652.033 514.250 591.289 Amount Norepinephrine 4 mg In 168.085 Sodium Chloride 0.9% 250 ml @ 0.03 MCG/KG/MIN 6.74 mls/hr IV .Q24H [facility] Rx#: [id number] Norepinephrine 8 mg In 258.000 229.126 424.373 Sodium Chloride 0.9% 250 ml @ 0.03 MCG/KG/MIN 5. 759 mls/hr IV .Q24H [facility] Rx#:[id number] Vasopressin 20 unit In 38.710 13.387 9.41 Sodium Chloride 0.9% 50 ml @ 0.03 UNITS/MIN 4.59 mls/hr IV .Q11H7M [facility] Rx# :[id number] propofoL 1,000 mg In 187.238 271.737 157.506 Empty Bag 1 bag @ 15 MCG/ KG/MIN 8.802 mls/hr IV . [id number] [facility] Rx#:[id number] Oral 0 Tube Feeding 70 232 96 Hemodialysis 700 400 Other 60 Output: Urine 225 179 60 Hemodialysis 3000 2400 Other: Voiding Method Indwelling Catheter Indwelling Catheter Indwelling Catheter # Bowel Movements 0 ABP, PAP, CO, CI - Last Documented Arterial Blood Pressure 137/48 - Exam GENERAL DESCRIPTION: An elderly Female intubated on the vent RESPIRATORY SYSTEM: Unlabored breathing , decreased breath sounds at bases HEART: S1 S2 regular rate and rhythm , ABDOMEN: Soft , no tenderness EXTREMITIES: No edema feet - Labs CBC & Chem 7: 05/13/23 04:00 05/13/23 04:00 Labs: Abnormal Lab Results - Last 24 Hours (Table) 05/11/23 05/12/23 05/12/23 Range/Units 08:56 17:12 20:16 WBC (3.8-10.6) k/uL RBC (3.80-5.40) m/uL Hgb (11.4-16.0) gm/dL Hct (34.0-46.0) % RDW (11.5-15.5) % Plt Count (150-450) k/uL Neutrophils # (1.3-7.7) k/uL Lymphocytes # (1.0-4.8) k/uL ABG pH (7.35-7.45) ABG pO2 (83-108) mmHg ABG HCO3 (21-25) mmol/L ABG Total CO2 (19-24) mmol/L ABG O2 Saturation (94-97) % Sodium (137-145) mmol/L BUN (7-17) mg/dL Creatinine (0.52-1.04) mg/dL Glucose (74-99) mg/dL POC Glucose (mg/dL) 166 H 162 H (70-110) mg/dL Calcium (8.4-10.2) mg/dL Total Bilirubin (0.2-1.3) mg/dL AST (14-36) U/L Alkaline Phosphatase (38-126) U/L Total Protein (6.3-8.2) g/dL Albumin (3.5-5.0) g/dL Vitamin B12 >3600.0 H (200.0-944.0) pg/mL 05/12/23 05/13/23 05/13/23 Range/Units 23:47 04:00 04:00 WBC 11.7 H (3.8-10.6) k/uL RBC 2.94 L (3.80-5.40) m/uL Hgb 9.7 L (11.4-16.0) gm/dL Hct 28.6 L (34.0-46.0) % RDW 16.9 H (11.5-15.5) % Plt Count 111 L (150-450) k/uL Neutrophils # 10.0 H (1.3-7.7) k/uL Lymphocytes # 0.7 L (1.0-4.8) k/uL ABG pH (7.35-7.45) ABG pO2 (83-108) mmHg ABG HCO3 (21-25) mmol/L ABG Total CO2 (19-24) mmol/L ABG O2 Saturation (94-97) % Sodium 132 L (137-145) mmol/L BUN 44 H (7-17) mg/dL Creatinine 1.50 H (0.52-1.04) mg/dL Glucose 154 H (74-99) mg/dL POC Glucose (mg/dL) 173 H (70-110) mg/dL Calcium 7.6 L (8.4-10.2) mg/dL Total Bilirubin 1.4 H (0.2-1.3) mg/dL AST 43 H (14-36) U/L Alkaline Phosphatase 218 H (38-126) U/L Total Protein 4.5 L (6.3-8.2) g/dL Albumin 1.9 L (3.5-5.0) g/dL Vitamin B12 (200.0-944.0) pg/mL 05/13/23 05/13/23 05/13/23 Range/Units 04:00 06:05 10:04 WBC (3.8-10.6) k/uL RBC (3.80-5.40) m/uL Hgb (11.4-16.0) gm/dL Hct (34.0-46.0) % RDW (11.5-15.5) % Plt Count (150-450) k/uL Neutrophils # (1.3-7.7) k/uL Lymphocytes # (1.0-4.8) k/uL ABG pH 7.50 H (7.35-7.45) ABG pO2 118 H (83-108) mmHg ABG HCO3 27 H (21-25) mmol/L ABG Total CO2 28 H (19-24) mmol/L ABG O2 Saturation 99.0 H (94-97) % Sodium (137-145) mmol/L BUN (7-17) mg/dL Creatinine (0.52-1.04) mg/dL Glucose (74-99) mg/dL POC Glucose (mg/dL) 172 H 137 H (70-110) mg/dL Calcium (8.4-10.2) mg/dL Total Bilirubin (0.2-1.3) mg/dL AST (14-36) U/L Alkaline Phosphatase (38-126) U/L Total Protein (6.3-8.2) g/dL Albumin (3.5-5.0) g/dL Vitamin B12 (200.0-944.0) pg/mL Microbiology - Last 24 Hours (Table) 05/09/23 16:43 Anaerobic Culture - Preliminary Mandible - Right 05/12/23 01:15 Gram Stain - Preliminary Sputum 05/08/23 17:30 Anaerobic Culture - Final Mouth Sabrnia albicans 05/11/23 08:56 Blood Culture - Preliminary Blood Assessment and Plan (1) Leukocytosis Current Visit: Yes Status: Acute Code(s): D72.829 - ELEVATED WHITE BLOOD CELL COUNT, UNSPECIFIED SNOMED Code(s): 758456965 (2) Allergy to multiple antibiotics Current Visit: Yes Status: Acute Code(s): Z88.1 - ALLERGY STATUS TO OTHER ANTIBIOTIC AGENTS SNOMED Code(s): 770954647 (3) Urinary tract infection Current Visit: No Status: Acute Code(s): N39.0 - URINARY TRACT INFECTION, SITE NOT SPECIFIED SNOMED Code(s): 64020506 Plan: 1patient with sepsis, source likely infected tooth and abscess patient has been evaluated by oral surgery and plan is status post extraction of tooth #29 and drainage of the abscess cultures are currently growing Staphylococcus hemolyticus and Sabrina 2-patient remains to be critically ill on the ventilator and requiring pressor support repeat cultures are pending, patient to continue with Invanz daptomycin and Eraxis antibiotic clinical course closely Dictation was produced using [employer] dictation software. please excuse any grammatical, word or spelling errors.
[2023-05-13 15:04] LABS: Glucose,Whole Blood 153 mg/dL (70-110)
[2023-05-13] MEDS: HEPARIN SODIUM,PORCINE 5,000 UNIT/ML 1 ML VIAL SQ SCH (17:00)
[2023-05-13 17:05] LABS: Glucose,Whole Blood 140 mg/dL (70-110)
[2023-05-13 21:56] LABS: Glucose,Whole Blood 133 mg/dL (70-110)
[2023-05-14 04:04] LABS: Glucose,Whole Blood 116 mg/dL (70-110)
[2023-05-14 05:39] LABS: Anisocytosis Slight; Basophils # (A) 0.1 k/uL (0-0.2); Basophils % (A) 1 %; Eosinophils # (A) 0.1 k/uL (0-0.7); Eosinophils % (A) 1 %; HCT 29.1 % (34.0-46.0); HGB 9.8 gm/dL (11.4-16.0); Hypochromasia Slight; Lymphocytes # (A) 0.8 k/uL (1.0-4.8); Lymphocytes % (A) 7 %; MCH 33.2 pg (25.0-35.0); MCHC 33.6 g/dL (31.0-37.0); MCV 98.9 fL (80.0-100.0); Macrocytosis Slight; Mean Platelet Volume 8.6; Monocytes # (A) 0.8 k/uL (0-1.0); Monocytes % (A) 7 %; Neutrophils % (A) 81 %; Platelet Count 114 k/uL (150-450); Poikilocytosis Slight; RBC 2.94 m/uL (3.80-5.40); RDW 18.2 % (11.5-15.5); WBC 11.1 k/uL (3.8-10.6)
[2023-05-14 05:40] LABS: Glucose,Whole Blood 105 mg/dL (70-110)
[2023-05-14 06:05] LABS: ABG Base Excess 4.5 mmol/L; ABG HCO3 29 mmol/L (21-25); ABG Oxygen Saturation 97.1 % (94-97); ABG PCO2 45 mmHg (35-45); ABG PH 7.42 (7.35-7.45); ABG PO2 89 mmHg (83-108); ABG TCO2 30 mmol/L (19-24)
[2023-05-14 06:13] LABS: ALT 18 U/L (4-34); AST 46 U/L (14-36); African American GFR (CKD) 52 (>60 ml/min/1.73 sqM); Albumin 1.8 g/dL (3.5-5.0); Alkaline Phosphatase 199 U/L (38-126); Anion Gap 4 mmol/L; Blood Urea Nitrogen 39 mg/dL (7-17); Calcium 7.5 mg/dL (8.4-10.2); Carbon Dioxide 26 mmol/L (22-30); Chloride 104 mmol/L (98-107); Glucose 105 mg/dL (74-99); Non-African American GFR(CKD) 45 (>60 ml/min/1.73 sqM); Potassium 3.6 mmol/L (3.5-5.1); Sodium 134 mmol/L (137-145); Total Bilirubin 1.8 mg/dL (0.2-1.3); Total Protein 4.5 g/dL (6.3-8.2)
[2023-05-14 06:15] LABS: Allen Test Performed? no
--- NOTE | 2023-05-14 06:23 | XR ---
EXAMINATION TYPE: XR chest 1V portable DATE OF EXAM: 05/14/2023 CLINICAL HISTORY: Difficulty breathing progress study. TECHNIQUE: Single AP portable semiupright view of the chest is obtained. COMPARISON: Chest x-ray from one day earlier and older studies. FINDINGS: Endotracheal tube right at lizzie and should be pulled back 3.0 cm to be in more ideal pos ition. Stable oral gastric tube. Stable left internal jugular central venous catheter. Persistent central vascular congestion and bibasilar opacities. Stable mild cardiomegaly. Osseous str uctures are intact. IMPRESSION: 1. Lower lying endotracheal tube at level of lizzie. Advise pulling back 3.0 cm to be in more ideal p osition. 2. Persistent central vascular congestion and small bilateral pleural effusions consistent with fluid overload state. Associated bibasilar opacity favors compressive atelectasis. No significant change f rom most recent prior.
[2023-05-14 08:13] LABS: Glucose,Whole Blood 141 mg/dL (70-110)
--- NOTE | 2023-05-14 09:01 | P.PN ---
Subjective Progress Note Date: 05/14/23 This is an 82-year-old female patient with a history of liver cirrhosis, pancytopenia, coronary artery disease with previous stent placement, compression fracture of T7 and T8, acute left posterior eighth rib fracture, thyroid mass, new onset atrial fibrillation and non-ST segment elevation myocardial in farction. She had been admitted back on 04/29/2023 with chest pain and shortness of breath. Echocardiogram revealed impaired left ventricular systolic function with ejection fraction 45%. She was being cared for on the selective care unit. Last evening at a approximately 1145 and rapid response team was called due to hypotension with blood pressure 70 over 40s. She received 100 mL of fluid res uscitation and was transferred to the intensive care unit and initiated on norepinephrine. She is seen today in consultation. She is lethargic. Minimally responsive. She had been calling out in pain earlier. When she was repositioned she settled down. This is felt to be secondary to her compression fractures and rib fractures. He does have a stage II decubitus ulcer. She also has severe suspected neuropathy of the bilateral lower extremities. She is maintaining good O2 saturation in the mid 90s on 2 L/min per nasal cannula. 0.08 mcg/kg/min. She has normal staying at 80 MLS per hour. White count 11.9. Platelets 55,000. Sodium 130. Potassium 4.9. Bicarb 33. BUN 74. Creatinine 2.78. Glucose 137. Urine culture reveals no growth. Currently on ertapenem. X-ray reveals cardiomegaly with mild central vascular congestion and interstitial opacities suggesting edema. Small to moderate bibasilar pleural effusions with adjacent atelectasis. On today's evaluation of 05/09/2023, the patient is being seen for a follow-up. As mentioned, the patient was transferred to the intensive care unit yesterday because of hypotension. She has multiple medical problems including coronary artery disease and previous coronary intervention and stenting and the patient also has liver cirrhosis, and she did encounter a new onset atrial fibrillation. At the same time, the patient is suspected to be septic. The patient has been treated with IV fluids. The patient continues to be on pressors and the patient is currently on norepinephrine running 0.14 mcg/kg/min. IV fluids are running in the rate of 50 cc an hour of normal saline. The patient is currently on IV Invanz. The white cell count today is 11.1. Hemoglobin is at 11 and a platelet count is at 55. Note that the patient has chronic thrombocytopenia related to her chronic liver disease. She also had an acute kidney injury and the creatinine peaked at 3 and currently is downtrending down to 2.65. Potassium level today is at 5.8 with a sodium level of 132. LFTs are abnormal with an alkaline phosphatase of 314, AST of 51 and ALT of 21. Her procalcitonin level was at 2.53 and her free T4 was 1.36 with a TSH of 5.9. UA was abnormal suspicious for an underlying urinary tract infection and cultures are still pen ding for now. Meanwhile, the CAT scan of the abdomen and pelvis that was obtained on 05/04/2023 showed no evidence of any acute intra-abdominal process. Nodular contour of the liver was suggestive of liver cirrhosis and the patient had signs of portal hypertension and cardiomegaly and pulm vascular congestion. The CAT scan of the face that was done on 05/04/2023 showed a soft tissue masslike area in the inferior left neck measuring 47 x 36 mm in size and inflammatory changes along the right mandible without an organizing collection. A head and neck abscess cannot be completely ruled out at this point in time. Neurologically, the patient is encephalopathic. She has episodes of crying and yelling and she remains altered. Her the serum ammonia level was 17. The patient remains on lactulose which is unfortunately being given through the rectal source which is causing significant amount of contamination. At the same time, cardiac rhythm is currently controlled and she remains in atrial fibrillation. She remains on amiodarone 200 mg p.o. twice a day. The Toprol has been placed on hold based on her underlying hypotension. Her echocardiogram from 04/30/2023 showed a ejection fraction of 45%, mild RV dilatation, mild mitral regurgitation, no other significant abnormalities noted. On today's evaluation of 05/10/2023, the patient is being seen for a follow-up. The patient is in the intensive care unit for sepsis and hypotension. Note that the patient underwent an evaluation by the oral surgeon yesterday and the patient was found to have a dental abscess tooth #29 and surgical extraction of the tooth was done and cultures were sent. At the same time, we are suspecting an underlying urine tract infection as another source of sepsis the patient and the patient is currently on IV Invanz as the patient has had previous ESBL producing E. coli in her urine based on the culture that was obtained on 04/26/2023. The patient remains on pressors. She is on norepinephrine running at 0.15 mcg/kg/min. IV fluids are in the form of D5.9 at the rate of 50 cc an hour. Urine output is in order of 30 cc an hour and there is also interval improvement of creatinine which is down to 2.4 with a BUN of 78. Sodium levels at 133 with a potassium level of 5.2. The white cell count is at 10.2 with a hemoglobin of 10.4 and a platelet count of 85. Note that the patient has chronic thrombocytopenia related to her chronic liver disease. She is arousable. She is awake. She is on oxygen at 2 L with a pulse ox of 96%. On 05/11/2023, the patient is more lethargic compared to yesterday. There has been progressive worsening in her mentation and this has been noted throughout the day. In the morning, she was still arousable and later on during the day, the patient became quite obtunded. Based on that, the patient was given a stat CAT scan of the brain that showed no acute intracranial abnormalities. The patient's CAT scan of the brain showed Moderate bifrontal atrophy and old lacunar infarct in the left basal ganglia. There was also slightly heterogeneous appearance of the brainstem felt to be related to a prominent skull base artifact. Subsequently, the patient was given a blood gas that showed a pH of 7.11 with a pCO2 of 93 and pO2 117 and the patient's mental status is most like related to hypercapnic respiratory failure and CO2 narcosis. Chest x-ray that was done earlier this morning that showed cardiomegaly and pulm vascular congestion but the pleural fluid. Fluid balance has been +1 L over the past 24 hours and the patient has been persistently in a positive fluid balance and the patient has diffuse anasarca related to her liver failure and sepsis. The BUN is at 72 with a creatinine of 2.4 and sodium is at 136. WBC count is at 8.2 with a hemoglobin 9.8 and a platelet count of 76. She remains hypotensive. She remains on pressors and the patient is currently on norepinephrine running at 0.09 mcg/kg/min. Her pressor requirements are sligh tly improved compared to yesterday. She remains on D5 normal saline today stopped 50 cc an hour.. In terms of her cultures, the patient's oral culture is showing some anaerobic growth. She also has Sabrina albicans. Blood cultures were negative. Urine cultures also been negative. The patient remains on IV antibiotics and antibiotics has been modified to a combination of IV Eraxis, daptomycin and IV Invanz. on today's evaluation of 05/12/2023, I am seeing the patient for a follow-up. Events from yesterday were noted. The patient went into hypercapnic respiratory failure and she became altered and obtunded and based on that, and that intubating the patient and placed on mechanical ventilator for acute on chronic hypoxic and hypercapnic respiratory failure. Also, the patient was in significant fluid overload. Immediately postintubation, dialysis catheter was obtained and the patient was started on hemodialysis with ultrafiltration and a total of 2 L of fluid was removed yesterday. This morning, the patient remains intubated on the mechanical ventilator. She is currently on propofol running at 40 mcg/kg/min. She is on assist-control with rate of 26 with a tidal volume of 400 FiO2 40% with a PEEP of 5. Blood gas from this morning showed respiratory alkalosis with a pH of 7.58 and a pCO2 of 29 and pO2 of 77. Based on that, the respiratory rate was dropped down to 77. Chest x-ray from today showing cardiomegaly. There is bilateral pleural effusion worse on the right which is slightly improved compared to yesterday. ET tube is in a good location and the patient also has a triple-lumen catheter in her left IJ and a dialysis catheter in her right IJ. She is still hypotensive. Norepinephrine is running at 0.16 mcg/kg/min. The patient is also on physiologic dose of vasopressin A arterial line catheter was also inserted yesterday and her blood pressure is stable for now with a mean arterial pressure of around 80. Her cardiac rhythm is atrial fibrillation. In terms of the rest of the blood work, the patient has a white cell count of 12.2 with a hemoglobin 9.8 and a platelet count of 103. BUN is at 56 and the creatinine is up down to 1.7. Potassium is down to 4.5 and his sodium level is at 135. Her serum ammonia level is at 23. She continues to melvin ve significant amount of third spacing, peripheral edema and diffuse anasarca. In terms of her antibiotic coverage, the patient is currently on a combination of IV Invanz, daptomycin and Eraxis. Enteral feeding has not been started yet. On today's evaluation of 05/13/2023, the patient is being seen for a follow-up. The patient remains intubated on the mechanical ventilator. On today's evalua tion, the patient is on propofol which is running at 40 mcg/kg/min. The patient is calm and comfortable and the patient is essentially centralized on the mechanical ventilator. On today's evaluation, the patient is on assist-control mode of mechanical ventilation and she is on a rate of 20, tidal volume of 400, FiO2 at 40% with a PEEP of 5. The chest x-ray is showing cardiomegaly and bilateral pleural effusions slightly improved and the ET tube is in a good location. The blood gas show a pH of 7.50 with a pCO2 of 35 and a pO2 of 118 and this was on FiO2 of 40%. No significant orotracheal secretions. The patient hemodynamically is still pressor dependent. She is currently on norepinephrine running at 0.2 mcg/kg/min and her norepinephrine dose is being titrated as the patient is undergoing hemodialysis and she is having variation and fluctuations in blood pressure. She is also on physiologic dose of vasopressin. No other hemodialysis was performed yesterday with a total of 2 point liters of ultrafiltration. Another session of hemodialysis being done today. The patient remains on Lasix 60 mg IV push every 12 hours. The fluid balance over the past 24 hours has been negative as the patient is making some urine output in the same time the patient is being dialyzed and ultrafiltrate it. Antibiotic coverage includes a combination of Invanz, Eraxis and daptomycin. Note that the patient had blood culture sent and the results are still pending for now. The cultures from the mouth and the right mandible were positive for staph hemolyticus and Sabrina albicans. The patient at the same time is in atrial fibrillation. The patient is on vital high-protein at the rate of 32 cc an hour and the patient seems to be tolerating her enteral feeding without any major difficulties. WBC count 11.7 with a hemoglobin 9.7 and a platelet count of 111. Sodium is at 132 with a potassium level of 3.7, BUN is 44 with a creatinine of 1.5 and a glucose of 154. LFTs are showing some mild elevation of the alkaline phosphatase at 218 and a total of 10 protein is at 4.5 with an albumin of 1.9. On 05/14/2023, the patient is being seen for a follow-up. Remains intubated on the mechanical ventilator. Sedation was discontinued yesterday and she has been off sedation for approximately 12 hours. She is sluggishly responsive to painful stimulation. Unable to communicate. Profoundly lethargic and sleepy. Most recent ammonia level was 2424 from yesterday. The patient remains on lactulose 30 g once a day and we are monitoring bowel movement activity on this patient. As mentioned earlier, the patient has liver cirrhosis, massive fluid overload, renal failure, respiratory failure requiring intubation mechanical ventilation and the patient is undergoing daily dialysis with ultrafiltration. Dialysis was done yesterday and approximately 2 L of fluid was removed. The goal for today is around 3 L. She continues to have diffuse anasarca, extensive edema in all 4 extremities, and the chest x-ray still showing bilateral pleural effusion which is essentially unchanged. While on the mechanical ventilator, she is on assist-control mode with rate of 14, tidal volume of 400, FiO2 40% with a PEEP of 5. Blood gas shows a pH of 7.58 with a pCO2 of 29 and pO2 of 77 and this was an FiO2 of 40%. Rest of the blood work and electrolytes show a sodium level of 135, potassium level is at 4.5, BUN is at 56 with a creatinine of 1.7. Potassium level is at 4.5. LFTs are normal with mild elevation of alkaline phosphatase at 240. Serum albumin is at 1.9 with a total protein of 4 .4. She is afebrile. She remains on a combination of antibiotics. She is on IV Invanz, Eraxis and daptomycin. Hemodynamically, she is still requiring pressors and the patient is currently on norepinephrine at 0.15 mcg/kg/min. IV fluids are currently at KVO. Enteral feeding for nutritional support is being provided and the patient is currently on vital high-protein at a rate of 32 cc an hour. She is afebrile for now. No other significant events overnight. Objective - Vital Signs Vital signs: Vital Signs Temp 99 F 05/13/23 23:20 Pulse 96 05/14/23 08:47 Resp 14 05/14/23 07:15 BP 140/47 05/13/23 11:11 Pulse Ox 98 05/14/23 07:15 FiO2 40 05/14/23 08:47 Intake & Output 05/13/23 05/14/23 05/14/23 18:59 06:59 18:59 Intake Total 1770.381 689.000 184.713 Output Total 2470 290 30 Balance -699.619 399.000 154.713 Weight 98.8 kg 99.2 kg Intake: IV 246 36 3 Anidulafungin 100 mg In 100 Sodium Chloride 0.9% 100 ml @ 84 mls/hr IVPB DAILY @1300 [facility] Rx#:[id number] Arterial Pressure Bag NS 36 36 3 0.9% DAPTOmycin 400 mg In 50 Sodium Chloride 0.9% 50 ml @ 100 mls/hr IVPB Q48H [facility] Rx#:[id number] Dextrose 5%-0.9% NaCl 1, 10 000 ml @ 10 mls/hr IV . Q24H [facility] Rx#:[id number] Ertapenem 0.5 gm In 50 Sodium Chloride 0.9% 50 ml @ 100 mls/hr IVPB DAILY [facility] Rx#:[id number] Intake, IV Titration 648.381 258.000 181.713 Amount Norepinephrine 8 mg In 481.465 258.000 181.713 Sodium Chloride 0.9% 250 ml @ 0.03 MCG/KG/MIN 5. 759 mls/hr IV .Q24H [facility] Rx#:[id number] Vasopressin 20 unit In 9.41 Sodium Chloride 0.9% 50 ml @ 0.03 UNITS/MIN 4.59 mls/hr IV .Q11H7M [facility] Rx# :[id number] propofoL 1,000 mg In 157.506 Empty Bag 1 bag @ 15 MCG/ KG/MIN 8.802 mls/hr IV . [id number] [facility] Rx#:[id number] Tube Feeding 416 320 Hemodialysis 400 Other 60 75 Output: Urine 70 290 30 Hemodialysis 2400 Other: Voiding Method Indwelling Catheter Indwelling Catheter # Bowel Movements 0 ABP, PAP, CO, CI - Last Documented Arterial Blood Pressure 71/29 - Exam GENERAL EXAM:, Comfortable, sedated, currently on propofol, intubated on mechanical ventilator. Orogastric and orotracheal tube are both in place. HEAD: Normocephalic. EYES: Normal reaction of pupils, equal size. NOSE: Clear with pink turbinates. THROAT: No erythema or exudates. Unable to feel any collection in her mandibular area or neck area to suggest any abscess or masses. She does have however very poor dental condition with multiple decayed teeth and several teeth are missing. The incisors in the lower mandible are rotten and broken and decayed and the gum is pale with occasional areas of patchy redness. Note that the patient had an extraction of tooth #29 and the stitches are in place NECK: No masses, no JVD. The patient has a left IJ triple-lumen catheter in the right IJ dialysis catheter. CHEST: No chest wall deformity. LUNGS: Equal air entry with bibasilar crackles. CVS: S1 and S2 normal with no audible murmur, regular rhythm. ABDOMEN: No hepatosplenomegaly, normal bowel sounds, no guarding or rigidity. There is evidence of anterior abdominal wall edema and ascites. SPINE: No scoliosis or deformity SKIN: Stage II coccyx ulcer CENTRAL NERVOUS SYSTEM: Diminished level of consciousness. Withdraws only to deep painful stimulation. Unable to communicate at this point in time. EXTREMITIES: There is 3+ peripheral edema. No clubbing, no cyanosis. Peripheral pulses are intact. No - Labs CBC & Chem 7: 05/14/23 05:25 05/14/23 05:25 Labs: Abnormal Lab Results - Last 24 Hours (Table) 05/13/23 05/13/23 05/13/23 Range/Units 10:04 15:02 17:03 WBC (3.8-10.6) k/uL RBC (3.80-5.40) m/uL Hgb (11.4-16.0) gm/dL Hct (34.0-46.0) % RDW (11.5-15.5) % Plt Count (150-450) k/uL Neutrophils # (1.3-7.7) k/uL Lymphocytes # (1.0-4.8) k/uL ABG HCO3 (21-25) mmol/L ABG Total CO2 (19-24) mmol/L ABG O2 Saturation (94-97) % Sodium (137-145) mmol/L BUN (7-17) mg/dL Creatinine (0.52-1.04) mg/dL Glucose (74-99) mg/dL POC Glucose (mg/dL) 137 H 153 H 140 H (70-110) mg/dL Calcium (8.4-10.2) mg/dL Total Bilirubin (0.2-1.3) mg/dL AST (14-36) U/L Alkaline Phosphatase (38-126) U/L Total Protein (6.3-8.2) g/dL Albumin (3.5-5.0) g/dL 05/13/23 05/14/23 05/14/23 Range/Units 21:55 04:03 05:25 WBC 11.1 H (3.8-10.6) k/uL RBC 2.94 L (3.80-5.40) m/uL Hgb 9.8 L (11.4-16.0) gm/dL Hct 29.1 L (34.0-46.0) % RDW 18.2 H (11.5-15.5) % Plt Count 114 L (150-450) k/uL Neutrophils # 9.0 H (1.3-7.7) k/uL Lymphocytes # 0.8 L (1.0-4.8) k/uL ABG HCO3 (21-25) mmol/L ABG Total CO2 (19-24) mmol/L ABG O2 Saturation (94-97) % Sodium (137-145) mmol/L BUN (7-17) mg/dL Creatinine (0.52-1.04) mg/dL Glucose (74-99) mg/dL POC Glucose (mg/dL) 133 H 116 H (70-110) mg/dL Calcium (8.4-10.2) mg/dL Total Bilirubin (0.2-1.3) mg/dL AST (14-36) U/L Alkaline Phosphatase (38-126) U/L Total Protein (6.3-8.2) g/dL Albumin (3.5-5.0) g/dL 05/14/23 05/14/23 05/14/23 Range/Units 05:25 06:03 08:11 WBC (3.8-10.6) k/uL RBC (3.80-5.40) m/uL Hgb (11.4-16.0) gm/dL Hct (34.0-46.0) % RDW (11.5-15.5) % Plt Count (150-450) k/uL Neutrophils # (1.3-7.7) k/uL Lymphocytes # (1.0-4.8) k/uL ABG HCO3 29 H (21-25) mmol/L ABG Total CO2 30 H (19-24) mmol/L ABG O2 Saturation 97.1 H (94-97) % Sodium 134 L (137-145) mmol/L BUN 39 H (7-17) mg/dL Creatinine 1.15 H (0.52-1.04) mg/dL Glucose 105 H (74-99) mg/dL POC Glucose (mg/dL) 141 H (70-110) mg/dL Calcium 7.5 L (8.4-10.2) mg/dL Total Bilirubin 1.8 H (0.2-1.3) mg/dL AST 46 H (14-36) U/L Alkaline Phosphatase 199 H (38-126) U/L Total Protein 4.5 L (6.3-8.2) g/dL Albumin 1.8 L (3.5-5.0) g/dL Microbiology - Last 24 Hours (Table) 05/08/23 14:06 Blood Culture - Final Blood 05/09/23 16:43 Anaerobic Culture - Final Mandible - Right 05/11/23 08:56 Blood Culture - Preliminary Blood Assessment and Plan Plan: Acute on chronic hypoxic and hypercapnic respiratory failure, essential related to massive fluid overload and development of bilateral pleural effusion. The patient currently intubated on mechanical ventilator. Chest x-ray still showing bilateral pleural effusions. Blood gas from today showing respiratory alkalosis. Altered mentation with diminished level of consciousness , noted the patient was encephalopathic and the patient further went into hypercapnic respiratory failure and CO2 narcosis requiring intubation mechanical ventilation. As the patient is currently intubated, she was taken off the propofol and we are monitoring her mentation. She remains on lactulose. Ammonia level from yesterday was at 24. Sepsis with secondary hypotension requiring pressor support secondary to sepsis of unclear etiology, possible dental abscess, questionable urinary tract infection with previous cultures of ESBL the patient currently is on norepinephrine running at 0. 16 mcg/kg/min and IV fluids will be switched to KVO as the patient has significant anasarca and third spacing and fluid overload.. She is still pressor dependent. Echocardiogram that was done on 04/30/2023 showed an ejection fraction of 45% and the patient does not have any significant valvular abnormalities. Oral cultures are positive for anaerobes and Sabrina. Blood cultures urine cultures have been negative. The patient remains on a combination of Eraxis, daptomycin and IV Invanz. Patient has chronic gross decay of all remaining lower teeth. Appears to have spontaneous drainage of pus emanating from the sulcus of tooth #29 which was cultured. The patient is status post extraction of tooth #[address] Fine and cultures were also sent. Cultures from the mandible was positive for staph saprophyticus. Bilateral pleural effusion right more than left Acute kidney injury secondary to above, patient is oliguric and the patient is receiving daily dialysis ultrafiltration CBC Acute hyperkalemia, improved None anion gap metabolic acidosis, improved Acute pain secondary to compression fractures of T7 and T8 and acute left posterior eighth rib fracture Neuropathy Stage II decubitus ulcer History of liver cirrhosis Pancytopenia Non-ST segment elevation myocardial infarction New onset atrial fibrillation with controlled ventricular response, rate controlled for now. 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 Plan: Continue ventilator support and drop tidal volume to 350, we will repeat another blood gas probably from 1 PM Keepthe patient off the sadation and monitor the mental status, the patient's mentation was altered due to a combination of factors. She had hepatic encephalopathy, metabolic encephalopathy and possibly drug encephalopathy as the patient was on propofol. Currently she is on propofol. She is been off the sedation for the past 12 hours and the medicine is being monitored. Continue hemodialysis and ultrafiltration at this will be done on a daily basis Chest x-ray still showing bilateral pleural effusions IV fluids down to KVO Continue IV Lasix, 60 mg IV every 12 hours Continue pressors, currently on 0 0.14 mcg/kg/min of norepinephrine, the patient's pressors will be gradually weaned off based on her mean arterial pressure. The patient off vasopressin. Will support with pressors during hemodialysis and increase the dose if needed. Otherwise the plan is to gradually wean off the pressors based on her mean arterial pressure. Continue IV Invanz, Eraxis and daptomycin and infectious disease on the case Pending further cultures and the patient had extraction of tooth #29 Lactulose to be continued to establish a daily soft bowel movement, ammonia levels are being monitored and the most recent ammonia level is down to 24 The patient will be started on enteral feeding for nutritional support and dietary consultation will be obtained Case was discussed with the family at length. I updated the daughter yesterday on her condition. Condition is obviously critical. Will continue to follow and make further recommendation based on her progress. Condition is critical in this evaluation with a more than 30 minutes. Time with Patient: Greater than 30
--- NOTE | 2023-05-14 09:08 | US ---
EXAMINATION TYPE: US venous doppler duplex UE RT DATE OF EXAM: 05/14/2023 COMPARISON: NONE CLINICAL INDICATION: Female, 82 years old with history of edema; Right forearm bruising and swelling. Portable ICU patient. Intubated. SIDE PERFORMED: Right Right Arm: Negative for DVT. Limited IJV and Subclavian vein due to port bandage. Grayscale, color doppler, spectral doppler imaging performed of the deep veins of the right upper ext remity. There is normal flow, compressibility and vascular waveforms. IMPRESSION: Suboptimal study without convincing evidence for acute DVT in the right upper extremity.
[2023-05-14] MEDS: SODIUM CHLORIDE 0.9% 500 ML 500 ML IV SCH (10:26)
--- NOTE | 2023-05-14 11:04 | P.PN ---
Subjective Patient is seen for follow-up for acute kidney injury. Started hemodialysis on May 11, 2023 for severe volume overload and poor urine output. Patient is currently sedated on the vent. FiO2 at 40%. Patient is seen on hemodialysis. Goal UF about 2 to 2.3 L. Blood pressure is on the lower side. Urine output at 30 to 60 cc an hour. Objective - Vital Signs Vital signs: Vital Signs Temp 99.2 F 05/14/23 08:00 Pulse 93 05/14/23 10:15 Resp 16 05/14/23 10:15 BP 140/47 05/13/23 11:11 Pulse Ox 100 05/14/23 10:15 FiO2 40 05/14/23 08:47 Intake & Output 05/13/23 05/14/23 05/14/23 18:59 06:59 18:59 Intake Total 1770.381 689.000 441.713 Output Total 2470 290 90 Balance -699.619 399.000 351.713 Weight 98.8 kg 99.2 kg Intake: IV 246 36 12 Anidulafungin 100 mg In 100 Sodium Chloride 0.9% 100 ml @ 84 mls/hr IVPB DAILY @1300 [facility] Rx#:[id number] Arterial Pressure Bag NS 36 36 12 0.9% DAPTOmycin 400 mg In 50 Sodium Chloride 0.9% 50 ml @ 100 mls/hr IVPB Q48H [facility] Rx#:[id number] Dextrose 5%-0.9% NaCl 1, 10 000 ml @ 10 mls/hr IV . Q24H [facility] Rx#:[id number] Ertapenem 0.5 gm In 50 Sodium Chloride 0.9% 50 ml @ 100 mls/hr IVPB DAILY [facility] Rx#:[id number] Intake, IV Titration 648.381 258.000 211.713 Amount Norepinephrine 8 mg In 481.465 258.000 181.713 Sodium Chloride 0.9% 250 ml @ 0.03 MCG/KG/MIN 5. 759 mls/hr IV .Q24H [facility] Rx#:[id number] Sodium Chloride 0.9% 500 30 ml 500 ml @ 10 mls/hr IV .Q24H [facility] Rx#:[id number] Vasopressin 20 unit In 9.41 Sodium Chloride 0.9% 50 ml @ 0.03 UNITS/MIN 4.59 mls/hr IV .Q11H7M [facility] Rx# :[id number] propofoL 1,000 mg In 157.506 Empty Bag 1 bag @ 15 MCG/ KG/MIN 8.802 mls/hr IV . [id number] [facility] Rx#:[id number] Tube Feeding 416 320 128 Hemodialysis 400 Other 60 75 90 Output: Urine 70 290 90 Hemodialysis 2400 Other: Voiding Method Indwelling Catheter Indwelling Catheter # Bowel Movements 0 ABP, PAP, CO, CI - Last Documented Arterial Blood Pressure 104/45 - Exam Patient is sedated and on the vent Examination of the heart S1 and S2 Examination of the lungs shows bilateral breath sounds are heard Abdomen is soft, distended with significant edema noted Examination of lower extremities shows 3-4+ edema - Labs CBC & Chem 7: 05/14/23 05:25 05/14/23 05:25 Labs: Abnormal Lab Results - Last 24 Hours (Table) 05/13/23 05/13/23 05/13/23 Range/Units 15:02 17:03 21:55 WBC (3.8-10.6) k/uL RBC (3.80-5.40) m/uL Hgb (11.4-16.0) gm/dL Hct (34.0-46.0) % RDW (11.5-15.5) % Plt Count (150-450) k/uL Neutrophils # (1.3-7.7) k/uL Lymphocytes # (1.0-4.8) k/uL ABG HCO3 (21-25) mmol/L ABG Total CO2 (19-24) mmol/L ABG O2 Saturation (94-97) % Sodium (137-145) mmol/L BUN (7-17) mg/dL Creatinine (0.52-1.04) mg/dL Glucose (74-99) mg/dL POC Glucose (mg/dL) 153 H 140 H 133 H (70-110) mg/dL Calcium (8.4-10.2) mg/dL Total Bilirubin (0.2-1.3) mg/dL AST (14-36) U/L Alkaline Phosphatase (38-126) U/L Total Protein (6.3-8.2) g/dL Albumin (3.5-5.0) g/dL 05/14/23 05/14/23 05/14/23 Range/Units 04:03 05:25 05:25 WBC 11.1 H (3.8-10.6) k/uL RBC 2.94 L (3.80-5.40) m/uL Hgb 9.8 L (11.4-16.0) gm/dL Hct 29.1 L (34.0-46.0) % RDW 18.2 H (11.5-15.5) % Plt Count 114 L (150-450) k/uL Neutrophils # 9.0 H (1.3-7.7) k/uL Lymphocytes # 0.8 L (1.0-4.8) k/uL ABG HCO3 (21-25) mmol/L ABG Total CO2 (19-24) mmol/L ABG O2 Saturation (94-97) % Sodium 134 L (137-145) mmol/L BUN 39 H (7-17) mg/dL Creatinine 1.15 H (0.52-1.04) mg/dL Glucose 105 H (74-99) mg/dL POC Glucose (mg/dL) 116 H (70-110) mg/dL Calcium 7.5 L (8.4-10.2) mg/dL Total Bilirubin 1.8 H (0.2-1.3) mg/dL AST 46 H (14-36) U/L Alkaline Phosphatase 199 H (38-126) U/L Total Protein 4.5 L (6.3-8.2) g/dL Albumin 1.8 L (3.5-5.0) g/dL 05/14/23 05/14/23 Range/Units 06:03 08:11 WBC (3.8-10.6) k/uL RBC (3.80-5.40) m/uL Hgb (11.4-16.0) gm/dL Hct (34.0-46.0) % RDW (11.5-15.5) % Plt Count (150-450) k/uL Neutrophils # (1.3-7.7) k/uL Lymphocytes # (1.0-4.8) k/uL ABG HCO3 29 H (21-25) mmol/L ABG Total CO2 30 H (19-24) mmol/L ABG O2 Saturation 97.1 H (94-97) % Sodium (137-145) mmol/L BUN (7-17) mg/dL Creatinine (0.52-1.04) mg/dL Glucose (74-99) mg/dL POC Glucose (mg/dL) 141 H (70-110) mg/dL Calcium (8.4-10.2) mg/dL Total Bilirubin (0.2-1.3) mg/dL AST (14-36) U/L Alkaline Phosphatase (38-126) U/L Total Protein (6.3-8.2) g/dL Albumin (3.5-5.0) g/dL Microbiology - Last 24 Hours (Table) 05/08/23 14:06 Blood Culture - Final Blood 05/09/23 16:43 Anaerobic Culture - Final Mandible - Right 05/11/23 08:56 Blood Culture - Preliminary Blood Assessment and Plan Assessment: 1. Acute kidney injury, oliguric ATN secondary to hypotension and NSAIDs which patient was taking at home. UA shows 1+ protein and trace blood and WBCs 16. Ultrasound of the kidneys shows right kidney 10.0 cm left kidney 8.4 cm no hydronephrosis noted. Started hemodialysis on 05/11/2023 due to severe volume overload and poor urine output. 2. Non-gap metabolic acidosis secondary to acute kidney injury 3. Hyperkalemia associated with acute kidney injury 4. Non-ST elevation ID 5. Sepsis with source most likely related to UTI as previous urine culture on 04/26/2023 showed ESBL E. coli versus the dental abscess 6. Encephalopathy , metabolic 7. Acute hypoxic respiratory failure currently on the vent 8. Severe volume overload Plan: Continue with daily dialysis for severe volume overload. Minimize IV fluids
[2023-05-14 11:45] LABS: Glucose,Whole Blood 113 mg/dL (70-110)
--- NOTE | 2023-05-14 11:59 | P.PN ---
Subjective Progress Note Date: 05/14/23 Hospital Course: 82-year-old female with history of liver cirrhosis, CAD status post stent, chronic systolic heart failure, hypertension, dyslipidemia, chronic pancytopenia, ITP presented with chest pain and shortness of breath. On initial presentation, patient was tachycardic, tachypneic, saturating well on room air. EKG showed sinus tachycardia with known left bundle branch block. Chest x-ray showed pulmonary vascular interstitial markings. 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 CBC showing pancytopenia with WBC count of 1.6, hemoglobin 11.3, platelet count of 41. Coagulation profile showing elevated INR of 1.3. BMP showing hyponatremia with sodium of 131, elevated BUN of 33, creatinine 1.19, GFR 43. Liver profile showing elevated total bili of 4.2, AST of 44, ALT of 20, and alkaline phosphatase of 282. Troponin 0.064 and proBNP 2360. Troponin continues to uptrend. Cardiology was consulted. No invasive procedures recommended by cardiology. Echocardiogram showed mild LV systolic function decrease, severely enlarged left atrium. Orthopedic surgery was consulted, not recommending any interventions. Patient did get slightly more encephalopathic, and had low blood sugars, previous urinalysis was positive, urine culture was positive for ESBL. Repeat urinalysis shows a dirty sample. However, ID is consulted, patient is on IV antibiotics, ertapenem. Patient also developed oliguric SCOOTER. CT face showed neck mass of 3 x 4 cm and right maxillary inflammatory changes. ENT and maxillofacial surgery were consulted. ENT recommended IR consult for consideration of needle biopsy of left neck mass, however, upon review, r adiology deferred this procedure due to having stable imaging/finding of left neck mass/thyroid mass from prior imaging. Patient was however scheduled for dental extraction with abscess drainage of the right mandible. Patient had been transitioned to the ICU on 05/07 for septic shock requiring vasopressor, and had a requirement of 0.14. Underwent surgical extraction of tooth. On 05/12/2023 patient became more encephalopathic, hypercapnic respiratory failure. Also requiring increasing amount of pressors and became oliguric. She was intubated, started on vasopressin, also had dialysis catheter placed and started on dialysis. Data reviewed: WBC 11.1, hemoglobin 9.8, platelet 114, pH 7.42, pCO2 45, sodium 134, creatinine 1.15, blood sugars range between 10 5-1 41 Chest x-ray shows bilateral pleural effusions, stable Subjective: Patient seen and examined at bedside. Continues to remain on vasopressors, minimal urine output, intubated. Patient has not had any bowel movement. Has been off of sedation since yesterday afternoon, very minimally responsive. Vitals Signs Reviewed. General: Intubated Derm: Warm, dry, jaundice Head: Atraumatic, normocephalic, symmetric Eyes: scleral icterus, equal and reactive pupil Mouth: No lip lesion, mucus membranes moist Cardiovascular: S1S2 reg, no murmur Lungs: no accessory muscle use, intubated Abdominal: Soft, nondistended Ext: No gross muscle atrophy, generalized anasarca, no contractures Neuro: Responds to painful stimuli Psych: Unable to assess Assessment and Plan: Patient is critically ill, prognosis guarded Acute hypercapnic respiratory failure Acute encephalopathy, multifactorial, hepatic and metabolic Septic Shock with with possible sources as following Questionable urinary tract infection, prior cultures growing ESBL Dental abscess status post surgical extraction Liver cirrhosis Pancytopenia, improving Hyperbilirubinemia -Pulmonology note reviewed,, continue to wean pressors, continue respiratory support, continue hemodialysis - ID following, patient on ertapenem 0.5 g IV daily, on daptomycin 400 mg IV every 48 hours, Eraxis 100 mg IV daily - continue levophed and vasopressin, continue to wean On oral gabapentin 100 3 times daily -Patient was on primidone for tremors, discontinued -No recent bowel movements, lactulose increased to 30 3 times daily Oliguric SCOOTER, now on hemodialysis Hyponatremia Mild hypokalemia, resolved -nephrology note reviewed, continue hemodialysis, continue 60 mg IV Lasix twice daily, maintain midodrine -hourly strict UOP measurement continue midodrine 10 AC 3 times daily Repeat BMP and magnesium tomorrow NSTEMI, likely type II New onset Afib with controlled ventricular rate History of CAD status post stent -Cardiology commended medical management for NSTEMI -Continue aspirin 81 mg, on pravastatin 80 mg -On amiodarone 200 twice daily for rate control, no anticoagulation due to thrombocytopenia -Continue home metoprolol 12.5 daily Compression fracture of T7 and T8 Acute left posterior eighth rib fracture Fracture of the coronoid process of the left scapula -Orthopedic surgery signed off, patient not a surgical candidate Thyroid mass -Outpatient follow-up DVT ppx: subcu heparin Code status: Full code Anticipated discharge place: Pending clinical course Anticipated discharge time: Pending clinical course Objective - Vital Signs Vital signs: Vital Signs Temp 99.2 F 05/14/23 08:00 Pulse 105 H 05/14/23 11:00 Resp 18 05/14/23 11:00 BP 140/47 05/13/23 11:11 Pulse Ox 99 05/14/23 11:00 FiO2 40 05/14/23 08:47 Intake & Output 05/13/23 05/14/23 05/14/23 18:59 06:59 18:59 Intake Total 1770.381 689.000 486.713 Output Total 2470 290 120 Balance -699.619 399.000 366.713 Weight 98.8 kg 99.2 kg Intake: IV 246 36 15 Anidulafungin 100 mg In 100 Sodium Chloride 0.9% 100 ml @ 84 mls/hr IVPB DAILY @1300 [facility] Rx#:[id number] Arterial Pressure Bag NS 36 36 15 0.9% DAPTOmycin 400 mg In 50 Sodium Chloride 0.9% 50 ml @ 100 mls/hr IVPB Q48H [facility] Rx#:[id number] Dextrose 5%-0.9% NaCl 1, 10 000 ml @ 10 mls/hr IV . Q24H [facility] Rx#:[id number] Ertapenem 0.5 gm In 50 Sodium Chloride 0.9% 50 ml @ 100 mls/hr IVPB DAILY [facility] Rx#:[id number] Intake, IV Titration 648.381 258.000 221.713 Amount Norepinephrine 8 mg In 481.465 258.000 181.713 Sodium Chloride 0.9% 250 ml @ 0.03 MCG/KG/MIN 5. 759 mls/hr IV .Q24H [facility] Rx#:[id number] Sodium Chloride 0.9% 500 40 ml 500 ml @ 10 mls/hr IV .Q24H [facility] Rx#:[id number] Vasopressin 20 unit In 9.41 Sodium Chloride 0.9% 50 ml @ 0.03 UNITS/MIN 4.59 mls/hr IV .Q11H7M [facility] Rx# :[id number] propofoL 1,000 mg In 157.506 Empty Bag 1 bag @ 15 MCG/ KG/MIN 8.802 mls/hr IV . [id number] [facility] Rx#:[id number] Tube Feeding 416 320 160 Hemodialysis 400 Other 60 75 90 Output: Urine 70 290 120 Hemodialysis 2400 Other: Voiding Method Indwelling Catheter Indwelling Catheter Indwelling Catheter # Bowel Movements 0 ABP, PAP, CO, CI - Last Documented Arterial Blood Pressure 102/47 - Labs CBC & Chem 7: 05/14/23 05:25 05/14/23 05:25 Labs: Abnormal Lab Results - Last 24 Hours (Table) 05/13/23 05/13/23 05/13/23 Range/Units 15:02 17:03 21:55 WBC (3.8-10.6) k/uL RBC (3.80-5.40) m/uL Hgb (11.4-16.0) gm/dL Hct (34.0-46.0) % RDW (11.5-15.5) % Plt Count (150-450) k/uL Neutrophils # (1.3-7.7) k/uL Lymphocytes # (1.0-4.8) k/uL ABG HCO3 (21-25) mmol/L ABG Total CO2 (19-24) mmol/L ABG O2 Saturation (94-97) % Sodium (137-145) mmol/L BUN (7-17) mg/dL Creatinine (0.52-1.04) mg/dL Glucose (74-99) mg/dL POC Glucose (mg/dL) 153 H 140 H 133 H (70-110) mg/dL Calcium (8.4-10.2) mg/dL Total Bilirubin (0.2-1.3) mg/dL AST (14-36) U/L Alkaline Phosphatase (38-126) U/L Total Protein (6.3-8.2) g/dL Albumin (3.5-5.0) g/dL 05/14/23 05/14/23 05/14/23 Range/Units 04:03 05:25 05:25 WBC 11.1 H (3.8-10.6) k/uL RBC 2.94 L (3.80-5.40) m/uL Hgb 9.8 L (11.4-16.0) gm/dL Hct 29.1 L (34.0-46.0) % RDW 18.2 H (11.5-15.5) % Plt Count 114 L (150-450) k/uL Neutrophils # 9.0 H (1.3-7.7) k/uL Lymphocytes # 0.8 L (1.0-4.8) k/uL ABG HCO3 (21-25) mmol/L ABG Total CO2 (19-24) mmol/L ABG O2 Saturation (94-97) % Sodium 134 L (137-145) mmol/L BUN 39 H (7-17) mg/dL Creatinine 1.15 H (0.52-1.04) mg/dL Glucose 105 H (74-99) mg/dL POC Glucose (mg/dL) 116 H (70-110) mg/dL Calcium 7.5 L (8.4-10.2) mg/dL Total Bilirubin 1.8 H (0.2-1.3) mg/dL AST 46 H (14-36) U/L Alkaline Phosphatase 199 H (38-126) U/L Total Protein 4.5 L (6.3-8.2) g/dL Albumin 1.8 L (3.5-5.0) g/dL 05/14/23 05/14/23 05/14/23 Range/Units 06:03 08:11 11:44 WBC (3.8-10.6) k/uL RBC (3.80-5.40) m/uL Hgb (11.4-16.0) gm/dL Hct (34.0-46.0) % RDW (11.5-15.5) % Plt Count (150-450) k/uL Neutrophils # (1.3-7.7) k/uL Lymphocytes # (1.0-4.8) k/uL ABG HCO3 29 H (21-25) mmol/L ABG Total CO2 30 H (19-24) mmol/L ABG O2 Saturation 97.1 H (94-97) % Sodium (137-145) mmol/L BUN (7-17) mg/dL Creatinine (0.52-1.04) mg/dL Glucose (74-99) mg/dL POC Glucose (mg/dL) 141 H 113 H (70-110) mg/dL Calcium (8.4-10.2) mg/dL Total Bilirubin (0.2-1.3) mg/dL AST (14-36) U/L Alkaline Phosphatase (38-126) U/L Total Protein (6.3-8.2) g/dL Albumin (3.5-5.0) g/dL Microbiology - Last 24 Hours (Table) 05/08/23 14:06 Blood Culture - Final Blood 05/09/23 16:43 Anaerobic Culture - Final Mandible - Right 05/11/23 08:56 Blood Culture - Preliminary Blood
[2023-05-14 12:57] LABS: ABG Base Excess 4.7 mmol/L; ABG HCO3 29 mmol/L (21-25); ABG PCO2 43 mmHg (35-45); ABG PH 7.44 (7.35-7.45); ABG PO2 149 mmHg (83-108); ABG TCO2 30 mmol/L (19-24); Allen Test Performed? Yes
[2023-05-14 12:59] LABS: ABG Oxygen Saturation 98.8 % (94-97)
--- NOTE | 2023-05-14 13:12 | P.PN ---
Subjective Progress Note Date: 05/14/23 Principal diagnosis: Reason for follow-up is leukocytosis and UTI Patient is a 82-year-old female with a past medical history significant for hypertension hyperlipidemia thrombocytopenia cirrhosis of the liver CO osteoarthritis patient was brought into the ER for evaluation of chest pain patient subsequently did have significant worsening of her mentation did have a positive UA concerning for possible component of UTI, with subsequent workup that shows evidence of dental abscess especially to tooth #29, patient did have extraction of tooth #29 along with drainage of the abscess completed on 05/09/2023.Patient did have dialysis catheter placement evening of 05/11/2023 subsequently patient did have a worsening respiratory status ended up getting intubated on 05/11/2023, the patient did get a dialysis catheter on 05/11/2023 and has been started on dialysis On today's visit that is 05/14/2023,the patient remains to be afebrile, patient is on vent FiO2 at 30% no significant purulent secretions through the ET requiring less pressor support than yesterday per the nursing staff undergoing dialysis without any issues per the product/device technologist no diarrhea has been reported. Patient white count is 11.1 creatinine is 1.15 sputum culture has been negative Objective - Vital Signs Vital signs: Vital Signs Temp 98.9 F 05/14/23 13:00 Pulse 89 05/14/23 13:00 Resp 22 05/14/23 13:00 BP 142/57 05/14/23 13:00 Pulse Ox 100 05/14/23 13:00 FiO2 30 05/14/23 13:00 Intake & Output 05/13/23 05/14/23 05/14/23 18:59 06:59 18:59 Intake Total 1770.381 242.797 8260.059 Output Total 2470 290 2680 Balance -699.619 399.000 -1236.941 Weight 98.8 kg 99.2 kg Intake: IV 246 36 121 Anidulafungin 100 mg In 100 100 Sodium Chloride 0.9% 100 ml @ 84 mls/hr IVPB DAILY @1300 [facility] Rx#:[id number] Arterial Pressure Bag NS 36 36 21 0.9% DAPTOmycin 400 mg In 50 Sodium Chloride 0.9% 50 ml @ 100 mls/hr IVPB Q48H [facility] Rx#:[id number] Dextrose 5%-0.9% NaCl 1, 10 000 ml @ 10 mls/hr IV . Q24H [facility] Rx#:[id number] Ertapenem 0.5 gm In 50 Sodium Chloride 0.9% 50 ml @ 100 mls/hr IVPB DAILY [facility] Rx#:[id number] Intake, IV Titration 648.381 258.000 386.059 Amount Norepinephrine 8 mg In 481.465 258.000 326.059 Sodium Chloride 0.9% 250 ml @ 0.03 MCG/KG/MIN 5. 759 mls/hr IV .Q24H [facility] Rx#:[id number] Sodium Chloride 0.9% 500 60 ml 500 ml @ 10 mls/hr IV .Q24H [facility] Rx#:[id number] Vasopressin 20 unit In 9.41 Sodium Chloride 0.9% 50 ml @ 0.03 UNITS/MIN 4.59 mls/hr IV .Q11H7M [facility] Rx# :[id number] propofoL 1,000 mg In 157.506 Empty Bag 1 bag @ 15 MCG/ KG/MIN 8.802 mls/hr IV . [id number] [facility] Rx#:[id number] Tube Feeding 416 320 256 Hemodialysis 400 500 Other 60 75 180 Output: Urine 70 290 180 Hemodialysis 2400 2500 Other: Voiding Method Indwelling Catheter Indwelling Catheter Indwelling Catheter # Bowel Movements 0 ABP, PAP, CO, CI - Last Documented Arterial Blood Pressure 129/51 - Exam GENERAL DESCRIPTION: An elderly Female intubated on the vent RESPIRATORY SYSTEM: Unlabored breathing , decreased breath sounds at bases HEART: S1 S2 regular rate and rhythm , ABDOMEN: Soft , no tenderness EXTREMITIES: No edema feet - Labs CBC & Chem 7: 05/14/23 05:25 05/14/23 05:25 Labs: Abnormal Lab Results - Last 24 Hours (Table) 05/13/23 05/13/23 05/13/23 Range/Units 15:02 17:03 21:55 WBC (3.8-10.6) k/uL RBC (3.80-5.40) m/uL Hgb (11.4-16.0) gm/dL Hct (34.0-46.0) % RDW (11.5-15.5) % Plt Count (150-450) k/uL Neutrophils # (1.3-7.7) k/uL Lymphocytes # (1.0-4.8) k/uL ABG pO2 (83-108) mmHg ABG HCO3 (21-25) mmol/L ABG Total CO2 (19-24) mmol/L ABG O2 Saturation (94-97) % Sodium (137-145) mmol/L BUN (7-17) mg/dL Creatinine (0.52-1.04) mg/dL Glucose (74-99) mg/dL POC Glucose (mg/dL) 153 H 140 H 133 H (70-110) mg/dL Calcium (8.4-10.2) mg/dL Total Bilirubin (0.2-1.3) mg/dL AST (14-36) U/L Alkaline Phosphatase (38-126) U/L Total Protein (6.3-8.2) g/dL Albumin (3.5-5.0) g/dL 05/14/23 05/14/23 05/14/23 Range/Units 04:03 05:25 05:25 WBC 11.1 H (3.8-10.6) k/uL RBC 2.94 L (3.80-5.40) m/uL Hgb 9.8 L (11.4-16.0) gm/dL Hct 29.1 L (34.0-46.0) % RDW 18.2 H (11.5-15.5) % Plt Count 114 L (150-450) k/uL Neutrophils # 9.0 H (1.3-7.7) k/uL Lymphocytes # 0.8 L (1.0-4.8) k/uL ABG pO2 (83-108) mmHg ABG HCO3 (21-25) mmol/L ABG Total CO2 (19-24) mmol/L ABG O2 Saturation (94-97) % Sodium 134 L (137-145) mmol/L BUN 39 H (7-17) mg/dL Creatinine 1.15 H (0.52-1.04) mg/dL Glucose 105 H (74-99) mg/dL POC Glucose (mg/dL) 116 H (70-110) mg/dL Calcium 7.5 L (8.4-10.2) mg/dL Total Bilirubin 1.8 H (0.2-1.3) mg/dL AST 46 H (14-36) U/L Alkaline Phosphatase 199 H (38-126) U/L Total Protein 4.5 L (6.3-8.2) g/dL Albumin 1.8 L (3.5-5.0) g/dL 05/14/23 05/14/23 05/14/23 Range/Units 06:03 08:11 11:44 WBC (3.8-10.6) k/uL RBC (3.80-5.40) m/uL Hgb (11.4-16.0) gm/dL Hct (34.0-46.0) % RDW (11.5-15.5) % Plt Count (150-450) k/uL Neutrophils # (1.3-7.7) k/uL Lymphocytes # (1.0-4.8) k/uL ABG pO2 (83-108) mmHg ABG HCO3 29 H (21-25) mmol/L ABG Total CO2 30 H (19-24) mmol/L ABG O2 Saturation 97.1 H (94-97) % Sodium (137-145) mmol/L BUN (7-17) mg/dL Creatinine (0.52-1.04) mg/dL Glucose (74-99) mg/dL POC Glucose (mg/dL) 141 H 113 H (70-110) mg/dL Calcium (8.4-10.2) mg/dL Total Bilirubin (0.2-1.3) mg/dL AST (14-36) U/L Alkaline Phosphatase (38-126) U/L Total Protein (6.3-8.2) g/dL Albumin (3.5-5.0) g/dL 05/14/23 Range/Units 12:55 WBC (3.8-10.6) k/uL RBC (3.80-5.40) m/uL Hgb (11.4-16.0) gm/dL Hct (34.0-46.0) % RDW (11.5-15.5) % Plt Count (150-450) k/uL Neutrophils # (1.3-7.7) k/uL Lymphocytes # (1.0-4.8) k/uL ABG pO2 149 H (83-108) mmHg ABG HCO3 29 H (21-25) mmol/L ABG Total CO2 30 H (19-24) mmol/L ABG O2 Saturation 98.8 H (94-97) % Sodium (137-145) mmol/L BUN (7-17) mg/dL Creatinine (0.52-1.04) mg/dL Glucose (74-99) mg/dL POC Glucose (mg/dL) (70-110) mg/dL Calcium (8.4-10.2) mg/dL Total Bilirubin (0.2-1.3) mg/dL AST (14-36) U/L Alkaline Phosphatase (38-126) U/L Total Protein (6.3-8.2) g/dL Albumin (3.5-5.0) g/dL Microbiology - Last 24 Hours (Table) 05/12/23 01:15 Gram Stain - Final Sputum Sputum Culture - Final 05/08/23 14:06 Blood Culture - Final Blood 05/09/23 16:43 Anaerobic Culture - Final Mandible - Right 05/11/23 08:56 Blood Culture - Preliminary Blood Assessment and Plan (1) Leukocytosis Current Visit: Yes Status: Acute Code(s): D72.829 - ELEVATED WHITE BLOOD CELL COUNT, UNSPECIFIED SNOMED Code(s): 351132411 (2) Allergy to multiple antibiotics Current Visit: Yes Status: Acute Code(s): Z88.1 - ALLERGY STATUS TO OTHER ANTIBIOTIC AGENTS SNOMED Code(s): 725420507 (3) Urinary tract infection Current Visit: No Status: Acute Code(s): N39.0 - URINARY TRACT INFECTION, SITE NOT SPECIFIED SNOMED Code(s): 50553146 Plan: 1patient with sepsis, source likely infected tooth and abscess patient has been evaluated by oral surgery and plan is status post extraction of tooth #29 and drainage of the abscess cultures are currently growing Staphylococcus hemolyticus and Sabrina 2-patient is afebrile white count is slowly trending down, patient is requiring less pressor support than yesterday, patient to continue with Invanz daptomycin and Eraxis antibiotic clinical course closely Prognosis guarded Dictation was produced using [employer] dictation software. please excuse any grammatical, word or spelling errors. Time with Patient: Less than 30
[2023-05-14] MEDS ORDERED: LACTULOSE 20 GM/30 ML CUP PO SCH (16:00)
[2023-05-14] MEDS: LACTULOSE 20 GM/30 ML CUP PO SCH (16:12)
[2023-05-14 18:03] LABS: Glucose,Whole Blood 134 mg/dL (70-110)
[2023-05-15 00:56] LABS: Glucose,Whole Blood 124 mg/dL (70-110)
[2023-05-15] MEDS ORDERED: MORPHINE SULFATE 4 MG/ML SYRINGE IVP PRN (01:01)
[2023-05-15] MEDS: LORazepam 2 MG/ML INJ IV PRN (01:57)
[2023-05-15 05:35] LABS: ABG Base Excess 3.4 mmol/L; ABG HCO3 28 mmol/L (21-25); ABG PCO2 47 mmHg (35-45); ABG PH 7.39 (7.35-7.45); ABG PO2 105 mmHg (83-108); ABG TCO2 30 mmol/L (19-24)
[2023-05-15 06:00] LABS: Allen Test Performed? no
[2023-05-15 06:35] LABS: Glucose,Whole Blood 124 mg/dL (70-110)
[2023-05-15 07:15] LABS: Anisocytosis Slight; Basophils # (A) 0.1 k/uL (0-0.2); Basophils % (A) 1 %; Eosinophils # (A) 0.1 k/uL (0-0.7); Eosinophils % (A) 1 %; HCT 30.8 % (34.0-46.0); HGB 9.9 gm/dL (11.4-16.0); Hypochromasia Moderate; Lymphocytes # (A) 0.9 k/uL (1.0-4.8); Lymphocytes % (A) 6 %; MCH 33.1 pg (25.0-35.0); MCHC 32.2 g/dL (31.0-37.0); MCV 102.9 fL (80.0-100.0); Macrocytosis Moderate; Mean Platelet Volume 9.3; Monocytes # (A) 0.8 k/uL (0-1.0); Monocytes % (A) 6 %; Neutrophils # (A) 11.8 k/uL (1.3-7.7); Neutrophils % (A) 85 %; Poikilocytosis Moderate; RBC 2.99 m/uL (3.80-5.40); RDW 19.9 % (11.5-15.5)
[2023-05-15 07:25] LABS: ALT 19 U/L (4-34); AST 49 U/L (14-36); African American GFR (CKD) 72 (>60 ml/min/1.73 sqM); Albumin 1.9 g/dL (3.5-5.0); Alkaline Phosphatase 208 U/L (38-126); Anion Gap 6 mmol/L; Blood Urea Nitrogen 20 mg/dL (7-17); Calcium 7.7 mg/dL (8.4-10.2); Carbon Dioxide 26 mmol/L (22-30); Chloride 105 mmol/L (98-107); Glucose 127 mg/dL (74-99); Magnesium 1.9 mg/dL (1.6-2.3); Non-African American GFR(CKD) 62 (>60 ml/min/1.73 sqM); Potassium 3.1 mmol/L (3.5-5.1); Sodium 137 mmol/L (137-145); Total Bilirubin 2.4 mg/dL (0.2-1.3); Total Protein 4.6 g/dL (6.3-8.2)
[2023-05-15 08:01] LABS: Platelet Count 91 k/uL (150-450)
--- NOTE | 2023-05-15 08:52 | P.PN ---
Subjective Progress Note Date: 05/15/23 This is an 82-year-old female patient with a history of liver cirrhosis, pancytopenia, coronary artery disease with previous stent placement, compression fracture of T7 and T8, acute left posterior eighth rib fracture, thyroid mass, new onset atrial fibrillation and non-ST segment elevation myocardial in farction. She had been admitted back on 04/29/2023 with chest pain and shortness of breath. Echocardiogram revealed impaired left ventricular systolic function with ejection fraction 45%. She was being cared for on the selective care unit. Last evening at a approximately 1145 and rapid response team was called due to hypotension with blood pressure 70 over 40s. She received 100 mL of fluid res uscitation and was transferred to the intensive care unit and initiated on norepinephrine. She is seen today in consultation. She is lethargic. Minimally responsive. She had been calling out in pain earlier. When she was repositioned she settled down. This is felt to be secondary to her compression fractures and rib fractures. He does have a stage II decubitus ulcer. She also has severe suspected neuropathy of the bilateral lower extremities. She is maintaining good O2 saturation in the mid 90s on 2 L/min per nasal cannula. 0.08 mcg/kg/min. She has normal staying at 80 MLS per hour. White count 11.9. Platelets 55,000. Sodium 130. Potassium 4.9. Bicarb 33. BUN 74. Creatinine 2.78. Glucose 137. Urine culture reveals no growth. Currently on ertapenem. X-ray reveals cardiomegaly with mild central vascular congestion and interstitial opacities suggesting edema. Small to moderate bibasilar pleural effusions with adjacent atelectasis. On today's evaluation of 05/09/2023, the patient is being seen for a follow-up. As mentioned, the patient was transferred to the intensive care unit yesterday because of hypotension. She has multiple medical problems including coronary artery disease and previous coronary intervention and stenting and the patient also has liver cirrhosis, and she did encounter a new onset atrial fibrillation. At the same time, the patient is suspected to be septic. The patient has been treated with IV fluids. The patient continues to be on pressors and the patient is currently on norepinephrine running 0.14 mcg/kg/min. IV fluids are running in the rate of 50 cc an hour of normal saline. The patient is currently on IV Invanz. The white cell count today is 11.1. Hemoglobin is at 11 and a platelet count is at 55. Note that the patient has chronic thrombocytopenia related to her chronic liver disease. She also had an acute kidney injury and the creatinine peaked at 3 and currently is downtrending down to 2.65. Potassium level today is at 5.8 with a sodium level of 132. LFTs are abnormal with an alkaline phosphatase of 314, AST of 51 and ALT of 21. Her procalcitonin level was at 2.53 and her free T4 was 1.36 with a TSH of 5.9. UA was abnormal suspicious for an underlying urinary tract infection and cultures are still pen ding for now. Meanwhile, the CAT scan of the abdomen and pelvis that was obtained on 05/04/2023 showed no evidence of any acute intra-abdominal process. Nodular contour of the liver was suggestive of liver cirrhosis and the patient had signs of portal hypertension and cardiomegaly and pulm vascular congestion. The CAT scan of the face that was done on 05/04/2023 showed a soft tissue masslike area in the inferior left neck measuring 47 x 36 mm in size and inflammatory changes along the right mandible without an organizing collection. A head and neck abscess cannot be completely ruled out at this point in time. Neurologically, the patient is encephalopathic. She has episodes of crying and yelling and she remains altered. Her the serum ammonia level was 17. The patient remains on lactulose which is unfortunately being given through the rectal source which is causing significant amount of contamination. At the same time, cardiac rhythm is currently controlled and she remains in atrial fibrillation. She remains on amiodarone 200 mg p.o. twice a day. The Toprol has been placed on hold based on her underlying hypotension. Her echocardiogram from 04/30/2023 showed a ejection fraction of 45%, mild RV dilatation, mild mitral regurgitation, no other significant abnormalities noted. On today's evaluation of 05/10/2023, the patient is being seen for a follow-up. The patient is in the intensive care unit for sepsis and hypotension. Note that the patient underwent an evaluation by the oral surgeon yesterday and the patient was found to have a dental abscess tooth #29 and surgical extraction of the tooth was done and cultures were sent. At the same time, we are suspecting an underlying urine tract infection as another source of sepsis the patient and the patient is currently on IV Invanz as the patient has had previous ESBL producing E. coli in her urine based on the culture that was obtained on 04/26/2023. The patient remains on pressors. She is on norepinephrine running at 0.15 mcg/kg/min. IV fluids are in the form of D5.9 at the rate of 50 cc an hour. Urine output is in order of 30 cc an hour and there is also interval improvement of creatinine which is down to 2.4 with a BUN of 78. Sodium levels at 133 with a potassium level of 5.2. The white cell count is at 10.2 with a hemoglobin of 10.4 and a platelet count of 85. Note that the patient has chronic thrombocytopenia related to her chronic liver disease. She is arousable. She is awake. She is on oxygen at 2 L with a pulse ox of 96%. On 05/11/2023, the patient is more lethargic compared to yesterday. There has been progressive worsening in her mentation and this has been noted throughout the day. In the morning, she was still arousable and later on during the day, the patient became quite obtunded. Based on that, the patient was given a stat CAT scan of the brain that showed no acute intracranial abnormalities. The patient's CAT scan of the brain showed Moderate bifrontal atrophy and old lacunar infarct in the left basal ganglia. There was also slightly heterogeneous appearance of the brainstem felt to be related to a prominent skull base artifact. Subsequently, the patient was given a blood gas that showed a pH of 7.11 with a pCO2 of 93 and pO2 117 and the patient's mental status is most like related to hypercapnic respiratory failure and CO2 narcosis. Chest x-ray that was done earlier this morning that showed cardiomegaly and pulm vascular congestion but the pleural fluid. Fluid balance has been +1 L over the past 24 hours and the patient has been persistently in a positive fluid balance and the patient has diffuse anasarca related to her liver failure and sepsis. The BUN is at 72 with a creatinine of 2.4 and sodium is at 136. WBC count is at 8.2 with a hemoglobin 9.8 and a platelet count of 76. She remains hypotensive. She remains on pressors and the patient is currently on norepinephrine running at 0.09 mcg/kg/min. Her pressor requirements are sligh tly improved compared to yesterday. She remains on D5 normal saline today stopped 50 cc an hour.. In terms of her cultures, the patient's oral culture is showing some anaerobic growth. She also has Sabrina albicans. Blood cultures were negative. Urine cultures also been negative. The patient remains on IV antibiotics and antibiotics has been modified to a combination of IV Eraxis, daptomycin and IV Invanz. on today's evaluation of 05/12/2023, I am seeing the patient for a follow-up. Events from yesterday were noted. The patient went into hypercapnic respiratory failure and she became altered and obtunded and based on that, and that intubating the patient and placed on mechanical ventilator for acute on chronic hypoxic and hypercapnic respiratory failure. Also, the patient was in significant fluid overload. Immediately postintubation, dialysis catheter was obtained and the patient was started on hemodialysis with ultrafiltration and a total of 2 L of fluid was removed yesterday. This morning, the patient remains intubated on the mechanical ventilator. She is currently on propofol running at 40 mcg/kg/min. She is on assist-control with rate of 26 with a tidal volume of 400 FiO2 40% with a PEEP of 5. Blood gas from this morning showed respiratory alkalosis with a pH of 7.58 and a pCO2 of 29 and pO2 of 77. Based on that, the respiratory rate was dropped down to 77. Chest x-ray from today showing cardiomegaly. There is bilateral pleural effusion worse on the right which is slightly improved compared to yesterday. ET tube is in a good location and the patient also has a triple-lumen catheter in her left IJ and a dialysis catheter in her right IJ. She is still hypotensive. Norepinephrine is running at 0.16 mcg/kg/min. The patient is also on physiologic dose of vasopressin A arterial line catheter was also inserted yesterday and her blood pressure is stable for now with a mean arterial pressure of around 80. Her cardiac rhythm is atrial fibrillation. In terms of the rest of the blood work, the patient has a white cell count of 12.2 with a hemoglobin 9.8 and a platelet count of 103. BUN is at 56 and the creatinine is up down to 1.7. Potassium is down to 4.5 and his sodium level is at 135. Her serum ammonia level is at 23. She continues to melvin ve significant amount of third spacing, peripheral edema and diffuse anasarca. In terms of her antibiotic coverage, the patient is currently on a combination of IV Invanz, daptomycin and Eraxis. Enteral feeding has not been started yet. On today's evaluation of 05/13/2023, the patient is being seen for a follow-up. The patient remains intubated on the mechanical ventilator. On today's evalua tion, the patient is on propofol which is running at 40 mcg/kg/min. The patient is calm and comfortable and the patient is essentially centralized on the mechanical ventilator. On today's evaluation, the patient is on assist-control mode of mechanical ventilation and she is on a rate of 20, tidal volume of 400, FiO2 at 40% with a PEEP of 5. The chest x-ray is showing cardiomegaly and bilateral pleural effusions slightly improved and the ET tube is in a good location. The blood gas show a pH of 7.50 with a pCO2 of 35 and a pO2 of 118 and this was on FiO2 of 40%. No significant orotracheal secretions. The patient hemodynamically is still pressor dependent. She is currently on norepinephrine running at 0.2 mcg/kg/min and her norepinephrine dose is being titrated as the patient is undergoing hemodialysis and she is having variation and fluctuations in blood pressure. She is also on physiologic dose of vasopressin. No other hemodialysis was performed yesterday with a total of 2 point liters of ultrafiltration. Another session of hemodialysis being done today. The patient remains on Lasix 60 mg IV push every 12 hours. The fluid balance over the past 24 hours has been negative as the patient is making some urine output in the same time the patient is being dialyzed and ultrafiltrate it. Antibiotic coverage includes a combination of Invanz, Eraxis and daptomycin. Note that the patient had blood culture sent and the results are still pending for now. The cultures from the mouth and the right mandible were positive for staph hemolyticus and Sabrina albicans. The patient at the same time is in atrial fibrillation. The patient is on vital high-protein at the rate of 32 cc an hour and the patient seems to be tolerating her enteral feeding without any major difficulties. WBC count 11.7 with a hemoglobin 9.7 and a platelet count of 111. Sodium is at 132 with a potassium level of 3.7, BUN is 44 with a creatinine of 1.5 and a glucose of 154. LFTs are showing some mild elevation of the alkaline phosphatase at 218 and a total of 10 protein is at 4.5 with an albumin of 1.9. On 05/14/2023, the patient is being seen for a follow-up. Remains intubated on the mechanical ventilator. Sedation was discontinued yesterday and she has been off sedation for approximately 12 hours. She is sluggishly responsive to painful stimulation. Unable to communicate. Profoundly lethargic and sleepy. Most recent ammonia level was 2424 from yesterday. The patient remains on lactulose 30 g once a day and we are monitoring bowel movement activity on this patient. As mentioned earlier, the patient has liver cirrhosis, massive fluid overload, renal failure, respiratory failure requiring intubation mechanical ventilation and the patient is undergoing daily dialysis with ultrafiltration. Dialysis was done yesterday and approximately 2 L of fluid was removed. The goal for today is around 3 L. She continues to have diffuse anasarca, extensive edema in all 4 extremities, and the chest x-ray still showing bilateral pleural effusion which is essentially unchanged. While on the mechanical ventilator, she is on assist-control mode with rate of 14, tidal volume of 400, FiO2 40% with a PEEP of 5. Blood gas shows a pH of 7.58 with a pCO2 of 29 and pO2 of 77 and this was an FiO2 of 40%. Rest of the blood work and electrolytes show a sodium level of 135, potassium level is at 4.5, BUN is at 56 with a creatinine of 1.7. Potassium level is at 4.5. LFTs are normal with mild elevation of alkaline phosphatase at 240. Serum albumin is at 1.9 with a total protein of 4 .4. She is afebrile. She remains on a combination of antibiotics. She is on IV Invanz, Eraxis and daptomycin. Hemodynamically, she is still requiring pressors and the patient is currently on norepinephrine at 0.15 mcg/kg/min. IV fluids are currently at KVO. Enteral feeding for nutritional support is being provided and the patient is currently on vital high-protein at a rate of 32 cc an hour. She is afebrile for now. No other significant events overnight. 05/15/2023, the patient is being seen for a follow-up. The patient is undergoing daily hemodialysis. Yesterday she underwent hemodialysis ultrafiltration with 2 L of fluid removed and the same was done earlier this morning prior to my arrival. This morning, the patient is still off the propofol. She is grimacing to painful stimulation. However, she is still significantly encephalopathic and obtunded. Note that she has also history of liver cirrhosis and she has a component of hepatic encephalopathy, and metabolic encephalopathy. Postintubation, drugs were provided in the form of propofol which may be also contributing to her diminished level of consciousness. In terms of her acid- base balance, her pCO2 has improved and she remains on mechanical ventilator and the most recent vent setting including assist-control of 14, tidal volume of 350, FiO2 of 30% with a PEEP of 5. pH is 7.39 with a pCO2 of 46 and pO2 of 105. Repeat chest x-ray from today shows improvement in volume status. There is diminution of the bilateral pleural effusions. She continues to have significant fluid overload with third spacing and edema in all 4 extremities. Hemodynamically, the patient is still on norepinephrine which has been weaned down to 0.09 mcg/kg/min. Her white cell count is at 9.9. She is afebrile. Hemoglobin is at 9.9 and a white cell count is at 14.4. Platelet count is at 91. Rest of blood work shows a BUN of 20, creatinine of 0.8, sodium levels at 137 and a potassium level of 3.1. The patient remains essentially on the same antibiotic coverage and she is on a combination of daptomycin, IV Invanz and Eraxis. In terms of enteral feeding, she remains on vital HP at a rate of 32 cc an hour which is at goal. In terms of bowel movement activity, the patient remains on lactulose for hepatic encephalopathy. The most recent ammonia level is currently at 24 Objective - Vital Signs Vital signs: Vital Signs Temp 98.8 F 05/15/23 08:00 Pulse 90 05/15/23 08:00 Resp 22 05/15/23 08:00 BP 144/68 05/15/23 06:57 Pulse Ox 100 05/15/23 08:00 FiO2 30 05/15/23 08:00 Intake & Output 05/14/23 05/15/23 05/15/23 18:59 06:59 18:59 Intake Total 1246.523 8361.903 100 Output Total 2710 2540 10 Balance -757.107 -1376.097 90 Weight 97.4 kg Intake: IV 186 36 6 Anidulafungin 100 mg In 100 Sodium Chloride 0.9% 100 ml @ 84 mls/hr IVPB DAILY @1300 [facility] Rx#:[id number] Arterial Pressure Bag NS 36 36 6 0.9% Ertapenem 0.5 gm In 50 Sodium Chloride 0.9% 50 ml @ 100 mls/hr IVPB DAILY [facility] Rx#:[id number] Intake, IV Titration 560.893 189.903 Amount Norepinephrine 8 mg In 450.893 189.903 Sodium Chloride 0.9% 250 ml @ 0.03 MCG/KG/MIN 5. 759 mls/hr IV .Q24H [facility] Rx#:[id number] Sodium Chloride 0.9% 500 110 ml 500 ml @ 10 mls/hr IV .Q24H [facility] Rx#:[id number] Tube Feeding 416 448 64 Hemodialysis 500 400 Other 290 90 30 Output: Urine 210 140 10 Hemodialysis 2500 2400 Other: Voiding Method Indwelling Catheter Indwelling Catheter ABP, PAP, CO, CI - Last Documented Arterial Blood Pressure 123/45 - Exam GENERAL EXAM:, Comfortable, sedated, currently on propofol, intubated on mechanical ventilator. Orogastric and orotracheal tube are both in place. HEAD: Normocephalic. EYES: Normal reaction of pupils, equal size. NOSE: Clear with pink turbinates. THROAT: No erythema or exudates. Unable to feel any collection in her mandibular area or neck area to suggest any abscess or masses. She does have however very poor dental condition with multiple decayed teeth and several teeth are missing. The incisors in the lower mandible are rotten and broken and decayed and the gum is pale with occasional areas of patchy redness. Note that the patient had an extraction of tooth #29 and the stitches are in place NECK: No masses, no JVD. The patient has a left IJ triple-lumen catheter in the right IJ dialysis catheter. CHEST: No chest wall deformity. LUNGS: Equal air entry with bibasilar crackles. CVS: S1 and S2 normal with no audible murmur, regular rhythm. ABDOMEN: No hepatosplenomegaly, normal bowel sounds, no guarding or rigidity. There is evidence of anterior abdominal wall edema and ascites. SPINE: No scoliosis or deformity SKIN: Stage II coccyx ulcer CENTRAL NERVOUS SYSTEM: Diminished level of consciousness. Withdraws only to deep painful stimulation. Unable to communicate at this point in time. EXTREMITIES: There is 3+ peripheral edema. No clubbing, no cyanosis. Peripheral pulses are intact. No - Labs CBC & Chem 7: 05/15/23 06:50 05/15/23 06:50 Labs: Abnormal Lab Results - Last 24 Hours (Table) 05/14/23 05/14/23 05/14/23 Range/Units 11:44 12:55 18:01 WBC (3.8-10.6) k/uL RBC (3.80-5.40) m/uL Hgb (11.4-16.0) gm/dL Hct (34.0-46.0) % MCV (80.0-100.0) fL RDW (11.5-15.5) % Plt Count (150-450) k/uL Neutrophils # (1.3-7.7) k/uL Lymphocytes # (1.0-4.8) k/uL ABG pCO2 (35-45) mmHg ABG pO2 149 H (83-108) mmHg ABG HCO3 29 H (21-25) mmol/L ABG Total CO2 30 H (19-24) mmol/L ABG O2 Saturation 98.8 H (94-97) % Potassium (3.5-5.1) mmol/L BUN (7-17) mg/dL Glucose (74-99) mg/dL POC Glucose (mg/dL) 113 H 134 H (70-110) mg/dL Calcium (8.4-10.2) mg/dL Total Bilirubin (0.2-1.3) mg/dL AST (14-36) U/L Alkaline Phosphatase (38-126) U/L Total Protein (6.3-8.2) g/dL Albumin (3.5-5.0) g/dL 05/15/23 05/15/23 05/15/23 Range/Units 00:54 05:34 06:33 WBC (3.8-10.6) k/uL RBC (3.80-5.40) m/uL Hgb (11.4-16.0) gm/dL Hct (34.0-46.0) % MCV (80.0-100.0) fL RDW (11.5-15.5) % Plt Count (150-450) k/uL Neutrophils # (1.3-7.7) k/uL Lymphocytes # (1.0-4.8) k/uL ABG pCO2 47 H (35-45) mmHg ABG pO2 (83-108) mmHg ABG HCO3 28 H (21-25) mmol/L ABG Total CO2 30 H (19-24) mmol/L ABG O2 Saturation 98.0 H (94-97) % Potassium (3.5-5.1) mmol/L BUN (7-17) mg/dL Glucose (74-99) mg/dL POC Glucose (mg/dL) 124 H 124 H (70-110) mg/dL Calcium (8.4-10.2) mg/dL Total Bilirubin (0.2-1.3) mg/dL AST (14-36) U/L Alkaline Phosphatase (38-126) U/L Total Protein (6.3-8.2) g/dL Albumin (3.5-5.0) g/dL 05/15/23 05/15/23 Range/Units 06:50 06:50 WBC 14.0 H (3.8-10.6) k/uL RBC 2.99 L (3.80-5.40) m/uL Hgb 9.9 L (11.4-16.0) gm/dL Hct 30.8 L (34.0-46.0) % MCV 102.9 H (80.0-100.0) fL RDW 19.9 H (11.5-15.5) % Plt Count 91 L (150-450) k/uL Neutrophils # 11.8 H (1.3-7.7) k/uL Lymphocytes # 0.9 L (1.0-4.8) k/uL ABG pCO2 (35-45) mmHg ABG pO2 (83-108) mmHg ABG HCO3 (21-25) mmol/L ABG Total CO2 (19-24) mmol/L ABG O2 Saturation (94-97) % Potassium 3.1 L (3.5-5.1) mmol/L BUN 20 H (7-17) mg/dL Glucose 127 H (74-99) mg/dL POC Glucose (mg/dL) (70-110) mg/dL Calcium 7.7 L (8.4-10.2) mg/dL Total Bilirubin 2.4 H (0.2-1.3) mg/dL AST 49 H (14-36) U/L Alkaline Phosphatase 208 H (38-126) U/L Total Protein 4.6 L (6.3-8.2) g/dL Albumin 1.9 L (3.5-5.0) g/dL Microbiology - Last 24 Hours (Table) 05/11/23 08:56 Blood Culture - Preliminary Blood 05/12/23 01:15 Gram Stain - Final Sputum Sputum Culture - Final Assessment and Plan Plan: Acute on chronic hypoxic and hypercapnic respiratory failure, essential related to massive fluid overload and development of bilateral pleural effusion. The patient currently intubated on mechanical ventilator. Chest x-ray still showing bilateral pleural effusions. The volume status is improving and there is diminution of the bilateral pleural effusion with daily dialysis and ultrafiltration. Altered mentation with diminished level of consciousness , noted the patient was encephalopathic and the patient further went into hypercapnic respiratory failure and CO2 narcosis requiring intubation mechanical ventilation. As the patient is currently intubated, she was taken off the propofol and we are monitoring her mentation. She remains on lactulose. Ammonia level from yesterday was at 24. The patient has been off propofol for approximately 36 hours. She is showing some signs of neurologic recovery. Will continue to monitor. Sepsis with secondary hypotension requiring pressor support secondary to sepsis of unclear etiology, possible dental abscess, questionable urinary tract infection with previous cultures of ESBL the patient currently is on norepinephrine running at 0. 09 mcg/kg/min and IV fluids will be switched to KV O as the patient has significant anasarca and third spacing and fluid overload.. She is still pressor dependent. Echocardiogram that was done on 04/30/2023 showed an ejection fraction of 45% and the patient does not have any significant valvular abnormalities. Oral cultures are positive for anaerobes and Sabirna. Blood cultures urine cultures have been negative. The patient remains on a combination of Eraxis, daptomycin and IV Invanz. Patient has chronic gross decay of all remaining lower teeth. Appears to have spontaneous drainage of pus emanating from the sulcus of tooth #29 which was cultured. The patient is status post extraction of tooth #[address] Fine and cultures were also sent. Cultures from the mandible was positive for staph saprophyticus. Bilateral pleural effusion right more than left, improving on today's chest x- ray Acute kidney injury secondary to above, patient is oliguric and the patient is receiving daily dialysis ultrafiltration Acute hyperkalemia, improved None anion gap metabolic acidosis, improved Acute pain secondary to compression fractures of T7 and T8 and acute left posterior eighth rib fracture Neuropathy Stage II decubitus ulcer History of liver cirrhosis Pancytopenia Non-ST segment elevation myocardial infarction New onset atrial fibrillation with controlled ventricular response, rate controlled for now. 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 Plan: Continue ventilator support no vent changes for today Keepthe patient off the sadation and monitor the mental status, the patient's mentation was altered due to a combination of factors. She had hepatic encephalopathy, metabolic encephalopathy and possibly drug encephalopathy as the patient was on propofol. Currently she is on propofol. She is been off the sedation for the past 36 hours and the medicine is being monitored. Repeat ammonia level Continue hemodialysis and ultrafiltration at this will be done on a daily basis, last session was done today with a total of 2 L of fluid removed Chest x-ray still showing bilateral pleural effusions, improving IV fluids down to KVO Continue IV Lasix, 60 mg IV every 12 hours Continue pressors, currently on 0 0.09 mcg/kg/min of norepinephrine, the patient's pressors will be gradually weaned off based on her mean arterial pressure. The patient off vasopressin. Will support with pressors during hemodialysis and increase the dose if needed. Otherwise the plan is to gradually wean off the pressors based on her mean arterial pressure. Continue IV Invanz, Eraxis and daptomycin and infectious disease on the case Pending further cultures and the patient had extraction of tooth #29 Lactulose to be continued to establish a daily soft bowel movement, ammonia levels are being monitored and the most recent ammonia level is down to 24 The patient on enteral feeding for nutritional support and dietary consultation will be obtained Case was discussed with the family at length. I updated the daughter yesterday on her condition. Condition is obviously critical. Will continue to follow and make further recommendation based on her progress. Condition is critical in this evaluation with a more than 30 minutes. Time with Patient: Greater than 30
--- NOTE | 2023-05-15 10:24 | P.PN ---
Subjective Patient is seen for follow-up for acute kidney injury. Started hemodialysis on May 11, 2023 for severe volume overload and poor urine output. Patient is currently sedated on the vent. FiO2 at 30%. Status post hemodialysis yesterday with 2.5 L as well as this morning. Urine output at 0-10 mL an hour. Sedation is being decreased. Objective - Vital Signs Vital signs: Vital Signs Temp 98.8 F 05/15/23 08:00 Pulse 84 05/15/23 09:00 Resp 17 05/15/23 09:00 BP 144/68 05/15/23 06:57 Pulse Ox 100 05/15/23 09:00 FiO2 30 05/15/23 09:00 Intake & Output 05/14/23 05/15/23 05/15/23 18:59 06:59 18:59 Intake Total 0918.751 7730.903 152.069 Output Total 2710 2540 10 Balance -757.107 -1376.097 142.069 Weight 97.4 kg Intake: IV 186 36 6 Anidulafungin 100 mg In 100 Sodium Chloride 0.9% 100 ml @ 84 mls/hr IVPB DAILY @1300 [facility] Rx#:[id number] Arterial Pressure Bag NS 36 36 6 0.9% Ertapenem 0.5 gm In 50 Sodium Chloride 0.9% 50 ml @ 100 mls/hr IVPB DAILY [facility] Rx#:[id number] Intake, IV Titration 560.893 189.903 52.069 Amount Norepinephrine 8 mg In 450.893 189.903 52.069 Sodium Chloride 0.9% 250 ml @ 0.03 MCG/KG/MIN 5. 759 mls/hr IV .Q24H [facility] Rx#:[id number] Sodium Chloride 0.9% 500 110 ml 500 ml @ 10 mls/hr IV .Q24H [facility] Rx#:[id number] Tube Feeding 416 448 64 Hemodialysis 500 400 Other 290 90 30 Output: Urine 210 140 10 Hemodialysis 2500 2400 Other: Voiding Method Indwelling Catheter Indwelling Catheter ABP, PAP, CO, CI - Last Documented Arterial Blood Pressure 123/42 - Exam Patient is sedated and on the vent Opens eyes to verbal stimuli Examination of the heart S1 and S2 Examination of the lungs shows bilateral breath sounds are heard Abdomen is soft, distended with significant edema noted Examination of lower extremities shows 3-4+ edema - Labs CBC & Chem 7: 05/15/23 06:50 05/15/23 06:50 Labs: Abnormal Lab Results - Last 24 Hours (Table) 05/14/23 05/14/23 05/14/23 Range/Units 11:44 12:55 18:01 WBC (3.8-10.6) k/uL RBC (3.80-5.40) m/uL Hgb (11.4-16.0) gm/dL Hct (34.0-46.0) % MCV (80.0-100.0) fL RDW (11.5-15.5) % Plt Count (150-450) k/uL Neutrophils # (1.3-7.7) k/uL Lymphocytes # (1.0-4.8) k/uL ABG pCO2 (35-45) mmHg ABG pO2 149 H (83-108) mmHg ABG HCO3 29 H (21-25) mmol/L ABG Total CO2 30 H (19-24) mmol/L ABG O2 Saturation 98.8 H (94-97) % Potassium (3.5-5.1) mmol/L BUN (7-17) mg/dL Glucose (74-99) mg/dL POC Glucose (mg/dL) 113 H 134 H (70-110) mg/dL Calcium (8.4-10.2) mg/dL Total Bilirubin (0.2-1.3) mg/dL AST (14-36) U/L Alkaline Phosphatase (38-126) U/L Total Protein (6.3-8.2) g/dL Albumin (3.5-5.0) g/dL 05/15/23 05/15/23 05/15/23 Range/Units 00:54 05:34 06:33 WBC (3.8-10.6) k/uL RBC (3.80-5.40) m/uL Hgb (11.4-16.0) gm/dL Hct (34.0-46.0) % MCV (80.0-100.0) fL RDW (11.5-15.5) % Plt Count (150-450) k/uL Neutrophils # (1.3-7.7) k/uL Lymphocytes # (1.0-4.8) k/uL ABG pCO2 47 H (35-45) mmHg ABG pO2 (83-108) mmHg ABG HCO3 28 H (21-25) mmol/L ABG Total CO2 30 H (19-24) mmol/L ABG O2 Saturation 98.0 H (94-97) % Potassium (3.5-5.1) mmol/L BUN (7-17) mg/dL Glucose (74-99) mg/dL POC Glucose (mg/dL) 124 H 124 H (70-110) mg/dL Calcium (8.4-10.2) mg/dL Total Bilirubin (0.2-1.3) mg/dL AST (14-36) U/L Alkaline Phosphatase (38-126) U/L Total Protein (6.3-8.2) g/dL Albumin (3.5-5.0) g/dL 05/15/23 05/15/23 Range/Units 06:50 06:50 WBC 14.0 H (3.8-10.6) k/uL RBC 2.99 L (3.80-5.40) m/uL Hgb 9.9 L (11.4-16.0) gm/dL Hct 30.8 L (34.0-46.0) % MCV 102.9 H (80.0-100.0) fL RDW 19.9 H (11.5-15.5) % Plt Count 91 L (150-450) k/uL Neutrophils # 11.8 H (1.3-7.7) k/uL Lymphocytes # 0.9 L (1.0-4.8) k/uL ABG pCO2 (35-45) mmHg ABG pO2 (83-108) mmHg ABG HCO3 (21-25) mmol/L ABG Total CO2 (19-24) mmol/L ABG O2 Saturation (94-97) % Potassium 3.1 L (3.5-5.1) mmol/L BUN 20 H (7-17) mg/dL Glucose 127 H (74-99) mg/dL POC Glucose (mg/dL) (70-110) mg/dL Calcium 7.7 L (8.4-10.2) mg/dL Total Bilirubin 2.4 H (0.2-1.3) mg/dL AST 49 H (14-36) U/L Alkaline Phosphatase 208 H (38-126) U/L Total Protein 4.6 L (6.3-8.2) g/dL Albumin 1.9 L (3.5-5.0) g/dL Microbiology - Last 24 Hours (Table) 05/11/23 08:56 Blood Culture - Preliminary Blood 05/12/23 01:15 Gram Stain - Final Sputum Sputum Culture - Final Assessment and Plan Assessment: 1. Acute kidney injury, oliguric ATN secondary to hypotension and sepsis. UA shows 1+ protein and trace blood and WBCs 16. Ultrasound of the kidneys shows right kidney 10.0 cm left kidney 8.4 cm no hydronephrosis noted. Started hemodialysis on 05/11/2023 due to severe volume overload and poor urine output. 2. Non-gap metabolic acidosis secondary to acute kidney injury 3. Hyperkalemia associated with acute kidney injury, resolved 4. Non-ST elevation TX 5. Sepsis with source most likely related to UTI as previous urine culture on 04/26/2023 showed ESBL E. coli versus the dental abscess 6. Encephalopathy , metabolic 7. Acute hypoxic respiratory failure currently on the vent 8. Severe volume overload 9. Hypokalemia with potassium of 3.1. This is most likely inaccurate as it was drawn right after hemodialysis. Plan: Repeat hemodialysis in a.m. Repeat potassium before replacement as it may be inaccurate
[2023-05-15] MEDS ORDERED: Potassium Replacement Protocol 1 EACH MISC MISCELLANE PRN (10:55)
--- NOTE | 2023-05-15 10:57 | P.PN ---
Subjective Progress Note Date: 05/15/23 Principal diagnosis: Reason for follow-up is leukocytosis and UTI Patient is a 82-year-old female with a past medical history significant for hypertension hyperlipidemia thrombocytopenia cirrhosis of the liver RI osteoarthritis patient was brought into the ER for evaluation of chest pain patient subsequently did have significant worsening of her mentation did have a positive UA concerning for possible component of UTI, with subsequent workup that shows evidence of dental abscess especially to tooth #29, patient did have extraction of tooth #29 along with drainage of the abscess completed on 05/09/2023.Patient did have dialysis catheter placement evening of 05/11/2023 subsequently patient did have a worsening respiratory status ended up getting intubated on 05/11/2023, the patient did get a dialysis catheter on 05/11/2023 and has been started on dialysis On today's visit that is 05/15/2023, the patient continues to be afebrile, the patient is on on the vent FiO2 stable at 30%, no significant colonization sputum through the ET, no diarrhea has been reported patient remains to be on a pressor support about the same as yesterday no other changes reported. The patient white count is 14,000, creatinine 0.88 sputum culture so far negative repeat blood cultures pending Objective - Vital Signs Vital signs: Vital Signs Temp 98.8 F 05/15/23 08:00 Pulse 82 05/15/23 10:00 Resp 20 05/15/23 10:00 BP 144/68 05/15/23 06:57 Pulse Ox 100 05/15/23 10:00 FiO2 30 05/15/23 10:00 Intake & Output 05/14/23 05/15/23 05/15/23 18:59 06:59 18:59 Intake Total 2922.092 5822.903 409.069 Output Total 2710 2540 10 Balance -757.107 -1376.097 399.069 Weight 97.4 kg Intake: IV 186 36 92 .9 kvo 30 Anidulafungin 100 mg In 100 Sodium Chloride 0.9% 100 ml @ 84 mls/hr IVPB DAILY @1300 [facility] Rx#:[id number] Arterial Pressure Bag NS 36 36 12 0.9% Ertapenem 0.5 gm In 50 50 Sodium Chloride 0.9% 50 ml @ 100 mls/hr IVPB DAILY [facility] Rx#:[id number] Intake, IV Titration 560.893 189.903 52.069 Amount Norepinephrine 8 mg In 450.893 189.903 52.069 Sodium Chloride 0.9% 250 ml @ 0.03 MCG/KG/MIN 5. 759 mls/hr IV .Q24H [facility] Rx#:[id number] Sodium Chloride 0.9% 500 110 ml 500 ml @ 10 mls/hr IV .Q24H [facility] Rx#:[id number] Tube Feeding 416 448 160 Hemodialysis 500 400 Other 290 90 105 Output: Urine 210 140 10 Hemodialysis 2500 2400 Other: Voiding Method Indwelling Catheter Indwelling Catheter ABP, PAP, CO, CI - Last Documented Arterial Blood Pressure 122/47 - Exam GENERAL DESCRIPTION: An elderly Female intubated on the vent RESPIRATORY SYSTEM: Unlabored breathing , decreased breath sounds at bases HEART: S1 S2 regular rate and rhythm , ABDOMEN: Soft , no tenderness EXTREMITIES: No edema feet - Labs CBC & Chem 7: 05/15/23 06:50 05/15/23 10:00 Labs: Abnormal Lab Results - Last 24 Hours (Table) 05/14/23 05/14/23 05/14/23 Range/Units 11:44 12:55 18:01 WBC (3.8-10.6) k/uL RBC (3.80-5.40) m/uL Hgb (11.4-16.0) gm/dL Hct (34.0-46.0) % MCV (80.0-100.0) fL RDW (11.5-15.5) % Plt Count (150-450) k/uL Neutrophils # (1.3-7.7) k/uL Lymphocytes # (1.0-4.8) k/uL ABG pCO2 (35-45) mmHg ABG pO2 149 H (83-108) mmHg ABG HCO3 29 H (21-25) mmol/L ABG Total CO2 30 H (19-24) mmol/L ABG O2 Saturation 98.8 H (94-97) % Potassium (3.5-5.1) mmol/L BUN (7-17) mg/dL Glucose (74-99) mg/dL POC Glucose (mg/dL) 113 H 134 H (70-110) mg/dL Calcium (8.4-10.2) mg/dL Total Bilirubin (0.2-1.3) mg/dL AST (14-36) U/L Alkaline Phosphatase (38-126) U/L Total Protein (6.3-8.2) g/dL Albumin (3.5-5.0) g/dL 05/15/23 05/15/23 05/15/23 Range/Units 00:54 05:34 06:33 WBC (3.8-10.6) k/uL RBC (3.80-5.40) m/uL Hgb (11.4-16.0) gm/dL Hct (34.0-46.0) % MCV (80.0-100.0) fL RDW (11.5-15.5) % Plt Count (150-450) k/uL Neutrophils # (1.3-7.7) k/uL Lymphocytes # (1.0-4.8) k/uL ABG pCO2 47 H (35-45) mmHg ABG pO2 (83-108) mmHg ABG HCO3 28 H (21-25) mmol/L ABG Total CO2 30 H (19-24) mmol/L ABG O2 Saturation 98.0 H (94-97) % Potassium (3.5-5.1) mmol/L BUN (7-17) mg/dL Glucose (74-99) mg/dL POC Glucose (mg/dL) 124 H 124 H (70-110) mg/dL Calcium (8.4-10.2) mg/dL Total Bilirubin (0.2-1.3) mg/dL AST (14-36) U/L Alkaline Phosphatase (38-126) U/L Total Protein (6.3-8.2) g/dL Albumin (3.5-5.0) g/dL 05/15/23 05/15/23 05/15/23 Range/Units 06:50 06:50 10:00 WBC 14.0 H (3.8-10.6) k/uL RBC 2.99 L (3.80-5.40) m/uL Hgb 9.9 L (11.4-16.0) gm/dL Hct 30.8 L (34.0-46.0) % MCV 102.9 H (80.0-100.0) fL RDW 19.9 H (11.5-15.5) % Plt Count 91 L (150-450) k/uL Neutrophils # 11.8 H (1.3-7.7) k/uL Lymphocytes # 0.9 L (1.0-4.8) k/uL ABG pCO2 (35-45) mmHg ABG pO2 (83-108) mmHg ABG HCO3 (21-25) mmol/L ABG Total CO2 (19-24) mmol/L ABG O2 Saturation (94-97) % Potassium 3.1 L 3.1 L (3.5-5.1) mmol/L BUN 20 H (7-17) mg/dL Glucose 127 H (74-99) mg/dL POC Glucose (mg/dL) (70-110) mg/dL Calcium 7.7 L (8.4-10.2) mg/dL Total Bilirubin 2.4 H (0.2-1.3) mg/dL AST 49 H (14-36) U/L Alkaline Phosphatase 208 H (38-126) U/L Total Protein 4.6 L (6.3-8.2) g/dL Albumin 1.9 L (3.5-5.0) g/dL Microbiology - Last 24 Hours (Table) 05/11/23 08:56 Blood Culture - Preliminary Blood 05/12/23 01:15 Gram Stain - Final Sputum Sputum Culture - Final Assessment and Plan (1) Leukocytosis Current Visit: Yes Status: Acute Code(s): D72.829 - ELEVATED WHITE BLOOD CELL COUNT, UNSPECIFIED SNOMED Code(s): 720537984 (2) Allergy to multiple antibiotics Current Visit: Yes Status: Acute Code(s): Z88.1 - ALLERGY STATUS TO OTHER ANTIBIOTIC AGENTS SNOMED Code(s): 571292119 (3) Urinary tract infection Current Visit: No Status: Acute Code(s): N39.0 - URINARY TRACT INFECTION, SITE NOT SPECIFIED SNOMED Code(s): 72061314 Plan: 1patient with sepsis, source likely infected tooth and abscess patient has been evaluated by oral surgery and plan is status post extraction of tooth #29 and drainage of the abscess cultures are currently growing Staphylococcus hemolyticus and Sabrina 2-patient is afebrile white count is slightly up today and will monitor closely, the patient is requiring about the same pressor support than yesterday, patient to continue with Invanz daptomycin and Eraxis antibiotic clinical course closely Prognosis remains to be guarded Dictation was produced using [employer] software. please excuse any grammatical, word or spelling errors. Time with Patient: Less than 30
--- NOTE | 2023-05-15 11:03 | P.PN ---
Subjective Progress Note Date: 05/15/23 Hospital Course: 82-year-old female with history of liver cirrhosis, CAD status post stent, chronic systolic heart failure, hypertension, dyslipidemia, chronic pancytopenia, ITP presented with chest pain and shortness of breath. On initial presentation, patient was tachycardic, tachypneic, saturating well on room air. EKG showed sinus tachycardia with known left bundle branch block. Chest x-ray showed pulmonary vascular interstitial markings. 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 CBC showing pancytopenia with WBC count of 1.6, hemoglobin 11.3, platelet count of 41. Coagulation profile showing elevated INR of 1.3. BMP showing hyponatremia with sodium of 131, elevated BUN of 33, creatinine 1.19, GFR 43. Liver profile showing elevated total bili of 4.2, AST of 44, ALT of 20, and alkaline phosphatase of 282. Troponin 0.064 and proBNP 2360. Troponin continues to uptrend. Cardiology was consulted. No invasive procedures recommended by cardiology. Echocardiogram showed mild LV systolic function decrease, severely enlarged left atrium. Orthopedic surgery was consulted, not recommending any interventions. Patient did get slightly more encephalopathic, and had low blood sugars, previous urinalysis was positive, urine culture was positive for ESBL. Repeat urinalysis shows a dirty sample. However, ID is consulted, patient is on IV antibiotics, ertapenem. Patient also developed oliguric SCOOTER. CT face showed neck mass of 3 x 4 cm and right maxillary inflammatory changes. ENT and maxillofacial surgery were consulted. ENT recommended IR consult for consideration of needle biopsy of left neck mass, however, upon review, r adiology deferred this procedure due to having stable imaging/finding of left neck mass/thyroid mass from prior imaging. Patient was however scheduled for dental extraction with abscess drainage of the right mandible. Patient had been transitioned to the ICU on 05/07 for septic shock requiring vasopressor, and had a requirement of 0.14. Underwent surgical extraction of tooth. On 05/12/2023 patient became more encephalopathic, hypercapnic respiratory failure. Also requiring increasing amount of pressors and became oliguric. She was intubated, started on vasopressin, also had dialysis catheter placed and started on dialysis. Data reviewed: WBC 14, hemoglobin 9.9, platelet 91, potassium 3.1, creatinine 0.88, magnesium 1.9 Chest x-ray shows bilateral pleural effusions, stable Subjective: Patient seen and examined at bedside. Continues to remain on vasopressors, minimal urine output, intubated. Had 1 bowel movement today. Has been off of sedation for 2 days, still minimally responsive. Vitals Signs Reviewed. General: Intubated Derm: Warm, dry, jaundice Head: Atraumatic, normocephalic, symmetric Eyes: scleral icterus, equal and reactive pupil Mouth: No lip lesion, mucus membranes moist Cardiovascular: S1S2 reg, no murmur Lungs: no accessory muscle use, intubated Abdominal: Soft, nondistended Ext: No gross muscle atrophy, generalized anasarca, no contractures Neuro: Responds to painful stimuli Psych: Unable to assess Assessment and Plan: Patient is critically ill, prognosis guarded Ventilatory dependent respiratory failure Acute encephalopathy, multifactorial, hepatic and metabolic Septic Shock with with possible sources as following Questionable urinary tract infection, prior cultures growing ESBL Dental abscess status post surgical extraction Liver cirrhosis Pancytopenia, stable Hyperbilirubinemia -Pulmonology note reviewed, continue to wean pressors, continue respiratory support, continue hemodialysis - ID following, patient on ertapenem 0.5 g IV daily, on daptomycin 400 mg IV every 48 hours, Eraxis 100 mg IV daily - continue levophed, continue to wean On oral gabapentin 100 3 times daily -Patient was on primidone for tremors, discontinued -Having bowel movements, lactulose increased to 30 3 times daily Oliguric SCOOTER, now on hemodialysis Hyponatremia, resolved Mild hypokalemia -Discussed management with nephrology, continue hemodialysis, continue 60 mg IV Lasix twice daily, maintain midodrine -hourly strict UOP measurement continue midodrine 10 AC 3 times daily Repeat BMP and magnesium tomorrow NSTEMI, likely type II New onset Afib with controlled ventricular rate History of CAD status post stent -Cardiology commended medical management for NSTEMI -Continue aspirin 81 mg, on pravastatin 80 mg -On amiodarone 200 twice daily for rate control, no anticoagulation due to thrombocytopenia -Continue home metoprolol 12.5 daily Compression fracture of T7 and T8 Acute left posterior eighth rib fracture Fracture of the coronoid process of the left scapula -Orthopedic surgery signed off, patient not a surgical candidate Thyroid mass -Outpatient follow-up DVT ppx: subcu heparin Code status: Full code Anticipated discharge place: Pending clinical course Anticipated discharge time: Pending clinical course Objective - Vital Signs Vital signs: Vital Signs Temp 98.8 F 05/15/23 08:00 Pulse 82 05/15/23 10:00 Resp 20 05/15/23 10:00 BP 144/68 05/15/23 06:57 Pulse Ox 100 05/15/23 10:00 FiO2 30 05/15/23 10:00 Intake & Output 05/14/23 05/15/23 05/15/23 18:59 06:59 18:59 Intake Total 4649.714 5012.903 409.069 Output Total 2710 2540 10 Balance -757.107 -1376.097 399.069 Weight 97.4 kg Intake: IV 186 36 92 .9 kvo 30 Anidulafungin 100 mg In 100 Sodium Chloride 0.9% 100 ml @ 84 mls/hr IVPB DAILY @1300 [facility] Rx#:[id number] Arterial Pressure Bag NS 36 36 12 0.9% Ertapenem 0.5 gm In 50 50 Sodium Chloride 0.9% 50 ml @ 100 mls/hr IVPB DAILY [facility] Rx#:[id number] Intake, IV Titration 560.893 189.903 52.069 Amount Norepinephrine 8 mg In 450.893 189.903 52.069 Sodium Chloride 0.9% 250 ml @ 0.03 MCG/KG/MIN 5. 759 mls/hr IV .Q24H [facility] Rx#:[id number] Sodium Chloride 0.9% 500 110 ml 500 ml @ 10 mls/hr IV .Q24H [facility] Rx#:[id number] Tube Feeding 416 448 160 Hemodialysis 500 400 Other 290 90 105 Output: Urine 210 140 10 Hemodialysis 2500 2400 Other: Voiding Method Indwelling Catheter Indwelling Catheter ABP, PAP, CO, CI - Last Documented Arterial Blood Pressure 122/47 - Labs CBC & Chem 7: 05/15/23 06:50 05/15/23 10:00 Labs: Abnormal Lab Results - Last 24 Hours (Table) 05/14/23 05/14/23 05/14/23 Range/Units 11:44 12:55 18:01 WBC (3.8-10.6) k/uL RBC (3.80-5.40) m/uL Hgb (11.4-16.0) gm/dL Hct (34.0-46.0) % MCV (80.0-100.0) fL RDW (11.5-15.5) % Plt Count (150-450) k/uL Neutrophils # (1.3-7.7) k/uL Lymphocytes # (1.0-4.8) k/uL ABG pCO2 (35-45) mmHg ABG pO2 149 H (83-108) mmHg ABG HCO3 29 H (21-25) mmol/L ABG Total CO2 30 H (19-24) mmol/L ABG O2 Saturation 98.8 H (94-97) % Potassium (3.5-5.1) mmol/L BUN (7-17) mg/dL Glucose (74-99) mg/dL POC Glucose (mg/dL) 113 H 134 H (70-110) mg/dL Calcium (8.4-10.2) mg/dL Total Bilirubin (0.2-1.3) mg/dL AST (14-36) U/L Alkaline Phosphatase (38-126) U/L Total Protein (6.3-8.2) g/dL Albumin (3.5-5.0) g/dL 05/15/23 05/15/23 05/15/23 Range/Units 00:54 05:34 06:33 WBC (3.8-10.6) k/uL RBC (3.80-5.40) m/uL Hgb (11.4-16.0) gm/dL Hct (34.0-46.0) % MCV (80.0-100.0) fL RDW (11.5-15.5) % Plt Count (150-450) k/uL Neutrophils # (1.3-7.7) k/uL Lymphocytes # (1.0-4.8) k/uL ABG pCO2 47 H (35-45) mmHg ABG pO2 (83-108) mmHg ABG HCO3 28 H (21-25) mmol/L ABG Total CO2 30 H (19-24) mmol/L ABG O2 Saturation 98.0 H (94-97) % Potassium (3.5-5.1) mmol/L BUN (7-17) mg/dL Glucose (74-99) mg/dL POC Glucose (mg/dL) 124 H 124 H (70-110) mg/dL Calcium (8.4-10.2) mg/dL Total Bilirubin (0.2-1.3) mg/dL AST (14-36) U/L Alkaline Phosphatase (38-126) U/L Total Protein (6.3-8.2) g/dL Albumin (3.5-5.0) g/dL 05/15/23 05/15/23 05/15/23 Range/Units 06:50 06:50 10:00 WBC 14.0 H (3.8-10.6) k/uL RBC 2.99 L (3.80-5.40) m/uL Hgb 9.9 L (11.4-16.0) gm/dL Hct 30.8 L (34.0-46.0) % MCV 102.9 H (80.0-100.0) fL RDW 19.9 H (11.5-15.5) % Plt Count 91 L (150-450) k/uL Neutrophils # 11.8 H (1.3-7.7) k/uL Lymphocytes # 0.9 L (1.0-4.8) k/uL ABG pCO2 (35-45) mmHg ABG pO2 (83-108) mmHg ABG HCO3 (21-25) mmol/L ABG Total CO2 (19-24) mmol/L ABG O2 Saturation (94-97) % Potassium 3.1 L 3.1 L (3.5-5.1) mmol/L BUN 20 H (7-17) mg/dL Glucose 127 H (74-99) mg/dL POC Glucose (mg/dL) (70-110) mg/dL Calcium 7.7 L (8.4-10.2) mg/dL Total Bilirubin 2.4 H (0.2-1.3) mg/dL AST 49 H (14-36) U/L Alkaline Phosphatase 208 H (38-126) U/L Total Protein 4.6 L (6.3-8.2) g/dL Albumin 1.9 L (3.5-5.0) g/dL Microbiology - Last 24 Hours (Table) 05/11/23 08:56 Blood Culture - Preliminary Blood 05/12/23 01:15 Gram Stain - Final Sputum Sputum Culture - Final
--- NOTE | 2023-05-15 11:24 | XR ---
EXAM: XR chest 1V portable CLINICAL INDICATION:Female, 82 years old with history of pleural effusion; [facility] COMPARISON: 05/14/2023 and before TECHNIQUE: Chest single view. FINDINGS: Lines/tubes/devices: ET tube has been retracted with the tip 1.4 cm above the lizzie. Right-sided evette lysis catheter and left IJ central venous line with their tips over the upper right atrium, unchanged . NG/OG tube again seen extending into the abdomen with the tip beyond the field of view. EKG leads a nd other extrinsic structures overlie the chest. Cardiomediastinum: Cardiac silhouette appears stable, mildly enlarged. Stable mediastinal silhouette. Partially calcified aorta. Vasculature: Similar mild vascular congestion. Lungs/pleura: Similar bibasilar pleural-parenchymal opacities with blunting of the costophrenic angles. Bones/soft tissues: Bony thorax appears grossly unchanged as seen. Regional soft tissues appear unremarkable. IMPRESSION: 1. Lines and tubes in place, as above. The ET tube has been pulled back however the tip remains some what low-lying located 1.4 cm above the lizzie. Recommend further retraction of about 2 cm for more o ptimal positioning. 2. Stable cardiopulmonary status. Lung findings likely small effusions with edema and atelectasis, b ut superimposed infectious process cannot be excluded in the proper clinical setting.
[2023-05-15] MEDS: POTASSIUM BICARBONATE/CIT AC 20 MEQ TABLET.EFF NG-TUBE SCH (11:30)
[2023-05-15 11:55] LABS: Glucose,Whole Blood 145 mg/dL (70-110)
--- NOTE | 2023-05-15 12:29 | P.PN ---
Progress Note - Text Progress Note Date: 05/15/23 S; patient in bed on ventilator nonresponsive. History per nurse is relatively unchanged, successful dialysis, still in ventilatory failure. Does not seem to respond to any pain in her mouth. O: ET tube stable and secure. Patient nonresponsive when moving ET tube. No vestibular swelling or redness noted extraction site is healing well no pus or discharge. A: Oral abscess has resolved. P: Patient's clinical picture continues to decline despite complete resolution of oral abscess. Continue oral care per respiratory protocol.
[2023-05-15 20:00] LABS: Glucose,Whole Blood 111 mg/dL (70-110)
[2023-05-16 00:34] LABS: Glucose,Whole Blood 145 mg/dL (70-110)
[2023-05-16 05:11] LABS: Glucose,Whole Blood 135 mg/dL (70-110)
[2023-05-16 05:40] LABS: Anisocytosis Moderate; Basophils # (A) 0.1 k/uL (0-0.2); Basophils % (A) 1 %; Eosinophils # (A) 0.2 k/uL (0-0.7); Eosinophils % (A) 1 %; HCT 27.4 % (34.0-46.0); HGB 9.2 gm/dL (11.4-16.0); Hypochromasia Moderate; Lymphocytes # (A) 0.8 k/uL (1.0-4.8); Lymphocytes % (A) 5 %; MCH 35.2 pg (25.0-35.0); MCHC 33.7 g/dL (31.0-37.0); MCV 104.4 fL (80.0-100.0); Macrocytosis Marked; Mean Platelet Volume 10.2; Monocytes # (A) 0.9 k/uL (0-1.0); Monocytes % (A) 6 %; Neutrophils # (A) 11.7 k/uL (1.3-7.7); Neutrophils % (A) 83 %; Poikilocytosis Moderate; RBC 2.62 m/uL (3.80-5.40); RDW 20.7 % (11.5-15.5)
[2023-05-16 05:41] LABS: Platelet Count 80 k/uL (150-450)
[2023-05-16 06:02] LABS: ALT 19 U/L (4-34); AST 48 U/L (14-36); African American GFR (CKD) 47 (>60 ml/min/1.73 sqM); Albumin 1.7 g/dL (3.5-5.0); Alkaline Phosphatase 180 U/L (38-126); Anion Gap 4 mmol/L; Blood Urea Nitrogen 29 mg/dL (7-17); Calcium 7.7 mg/dL (8.4-10.2); Carbon Dioxide 26 mmol/L (22-30); Chloride 107 mmol/L (98-107); Glucose 125 mg/dL (74-99); Magnesium 1.9 mg/dL (1.6-2.3); Non-African American GFR(CKD) 41 (>60 ml/min/1.73 sqM); Potassium 3.3 mmol/L (3.5-5.1); Sodium 137 mmol/L (137-145); Total Bilirubin 1.6 mg/dL (0.2-1.3); Total Protein 4.2 g/dL (6.3-8.2)
[2023-05-16 06:10] LABS: ABG Base Excess 2.4 mmol/L; ABG HCO3 27 mmol/L (21-25); ABG PCO2 45 mmHg (35-45); ABG PO2 373 mmHg (83-108); ABG TCO2 29 mmol/L (19-24)
[2023-05-16] MEDS: POTASSIUM CHLORIDE 20 MEQ in WATER FOR INJECTION 1 100ML.BAG IVPB SCH (06:40)
--- NOTE | 2023-05-16 08:59 | XR ---
EXAMINATION TYPE: XR chest 1V portable DATE OF EXAM: 05/16/2023 Comparison: 05/15/2023 Clinical History: 82-year-old female vent/OGT Findings: ET tube tip 1.2 cm from the lizzie. Right CVC tip upper right atrium. Left CVC tip of the right atriu m. NG tube courses below the diaphragm. Heart mildly enlarged. Bibasilar opacities persist, right gre ater the left. Impression: 1. Ongoing bibasilar opacities, combination of pleural effusions with adjacent atelectasis and/or con solidation. 2. Note that the ET tube tip is 1.2 cm from the lizzie. Pull back 1.5 cm and reassess at follow-up.
--- NOTE | 2023-05-16 10:53 | P.PN ---
Subjective Patient is seen for follow-up for acute kidney injury. Started hemodialysis on May 11, 2023 for severe volume overload and poor urine output. Patient is currently sedated on the vent. FiO2 at 25%. Status post hemodialysis yesterday with 2.4 L Urine output at 0-10 mL an hour. Sedation has been decreased. Objective - Vital Signs Vital signs: Vital Signs Temp 97.8 F 05/16/23 08:00 Pulse 88 05/16/23 10:00 Resp 15 05/16/23 10:00 BP 144/68 05/15/23 06:57 Pulse Ox 100 05/16/23 10:00 FiO2 25 05/16/23 08:56 Intake & Output 05/15/23 05/16/23 05/16/23 18:59 06:59 18:59 Intake Total 1116.069 892.000 546.847 Output Total 50 65 25 Balance 1066.069 827.000 521.847 Weight 95.9 kg Intake: IV 291 156 72 .9 kvo 105 120 10 Anidulafungin 100 mg In 100 Sodium Chloride 0.9% 100 ml @ 84 mls/hr IVPB DAILY @1300 RONI Rx#:[id number] Arterial Pressure Bag NS 36 36 12 0.9% Ertapenem 0.5 gm In 50 50 Sodium Chloride 0.9% 50 ml @ 100 mls/hr IVPB DAILY RONI Rx#:[id number] Intake, IV Titration 52.069 258.000 256.847 Amount Norepinephrine 8 mg In 52.069 258.000 126.847 Sodium Chloride 0.9% 250 ml @ 0.03 MCG/KG/MIN 5. 759 mls/hr IV .Q24H RONI Rx#:[id number] Potassium Chloride 20 meq 100 In Water For Injection 1 100ml.bag @ 50 mls/hr IVPB Q2H RONI Rx#: [id number] Sodium Chloride 0.9% 500 30 ml 500 ml @ 10 mls/hr IV .Q24H RONI Rx#:[id number] Tube Feeding 448 448 128 Other 325 30 90 Output: Urine 50 65 25 Other: Voiding Method Indwelling Catheter Indwelling Catheter Indwelling Catheter ABP, PAP, CO, CI - Last Documented Arterial Blood Pressure 123/41 - Exam Patient is sedated and on the vent Opens eyes to verbal stimuli Examination of the heart S1 and S2 Examination of the lungs shows bilateral breath sounds are heard Abdomen is soft, distended with significant edema noted Examination of lower extremities shows 3-4+ edema - Labs CBC & Chem 7: 05/16/23 05:00 05/16/23 05:00 Labs: Abnormal Lab Results - Last 24 Hours (Table) 05/15/23 05/15/23 05/16/23 Range/Units 11:53 19:58 00:33 WBC (3.8-10.6) k/uL RBC (3.80-5.40) m/uL Hgb (11.4-16.0) gm/dL Hct (34.0-46.0) % MCV (80.0-100.0) fL MCH (25.0-35.0) pg RDW (11.5-15.5) % Plt Count (150-450) k/uL Neutrophils # (1.3-7.7) k/uL Lymphocytes # (1.0-4.8) k/uL Macrocytosis ABG pO2 (83-108) mmHg ABG HCO3 (21-25) mmol/L ABG Total CO2 (19-24) mmol/L ABG O2 Saturation (94-97) % Potassium (3.5-5.1) mmol/L BUN (7-17) mg/dL Creatinine (0.52-1.04) mg/dL Glucose (74-99) mg/dL POC Glucose (mg/dL) 145 H 111 H 145 H (70-110) mg/dL Calcium (8.4-10.2) mg/dL Total Bilirubin (0.2-1.3) mg/dL AST (14-36) U/L Alkaline Phosphatase (38-126) U/L Total Protein (6.3-8.2) g/dL Albumin (3.5-5.0) g/dL 05/16/23 05/16/23 05/16/23 Range/Units 05:00 05:00 05:09 WBC 14.0 H (3.8-10.6) k/uL RBC 2.62 L (3.80-5.40) m/uL Hgb 9.2 L (11.4-16.0) gm/dL Hct 27.4 L (34.0-46.0) % MCV 104.4 H (80.0-100.0) fL MCH 35.2 H (25.0-35.0) pg RDW 20.7 H (11.5-15.5) % Plt Count 80 L (150-450) k/uL Neutrophils # 11.7 H (1.3-7.7) k/uL Lymphocytes # 0.8 L (1.0-4.8) k/uL Macrocytosis Marked A ABG pO2 (83-108) mmHg ABG HCO3 (21-25) mmol/L ABG Total CO2 (19-24) mmol/L ABG O2 Saturation (94-97) % Potassium 3.3 L (3.5-5.1) mmol/L BUN 29 H (7-17) mg/dL Creatinine 1.25 H (0.52-1.04) mg/dL Glucose 125 H (74-99) mg/dL POC Glucose (mg/dL) 135 H (70-110) mg/dL Calcium 7.7 L (8.4-10.2) mg/dL Total Bilirubin 1.6 H (0.2-1.3) mg/dL AST 48 H (14-36) U/L Alkaline Phosphatase 180 H (38-126) U/L Total Protein 4.2 L (6.3-8.2) g/dL Albumin 1.7 L (3.5-5.0) g/dL /07/05 Range/Units 06:00 WBC (3.8-10.6) k/uL RBC (3.80-5.40) m/uL Hgb (11.4-16.0) gm/dL Hct (34.0-46.0) % MCV (80.0-100.0) fL MCH (25.0-35.0) pg RDW (11.5-15.5) % Plt Count (150-450) k/uL Neutrophils # (1.3-7.7) k/uL Lymphocytes # (1.0-4.8) k/uL Macrocytosis ABG pO2 373 H (83-108) mmHg ABG HCO3 27 H (21-25) mmol/L ABG Total CO2 29 H (19-24) mmol/L ABG O2 Saturation 100.0 H (94-97) % Potassium (3.5-5.1) mmol/L BUN (7-17) mg/dL Creatinine (0.52-1.04) mg/dL Glucose (74-99) mg/dL POC Glucose (mg/dL) (70-110) mg/dL Calcium (8.4-10.2) mg/dL Total Bilirubin (0.2-1.3) mg/dL AST (14-36) U/L Alkaline Phosphatase (38-126) U/L Total Protein (6.3-8.2) g/dL Albumin (3.5-5.0) g/dL Assessment and Plan Assessment: 1. Acute kidney injury, oliguric ATN secondary to hypotension and sepsis. UA shows 1+ protein and trace blood and WBCs 16. Ultrasound of the kidneys shows right kidney 10.0 cm left kidney 8.4 cm no hydronephrosis noted. Started hemodialysis on 05/11/2023 due to severe volume overload and poor urine output. 2. Non-gap metabolic acidosis secondary to acute kidney injury 3. Hyperkalemia associated with acute kidney injury, resolved 4. Non-ST elevation [place] 5. Sepsis with source most likely related to UTI as previous urine culture on 04/26/2023 showed ESBL E. coli versus the dental abscess 6. Encephalopathy , metabolic 7. Acute hypoxic respiratory failure currently on the vent 8. Severe volume overload 9. Hypokalemia Plan: Hemodialysis today and in a.m. replace potassium
--- NOTE | 2023-05-16 10:55 | P.PN ---
Subjective Progress Note Date: 05/16/23 Hospital Course: 82-year-old female with history of liver cirrhosis, CAD status post stent, chronic systolic heart failure, hypertension, dyslipidemia, chronic pancytopenia, ITP presented with chest pain and shortness of breath. On initial presentation, patient was tachycardic, tachypneic, saturating well on room air. EKG showed sinus tachycardia with known left bundle branch block. Chest x-ray showed pulmonary vascular interstitial markings. 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 CBC showing pancytopenia with WBC count of 1.6, hemoglobin 11.3, platelet count of 41. Coagulation profile showing elevated INR of 1.3. BMP showing hyponatremia with sodium of 131, elevated BUN of 33, creatinine 1.19, GFR 43. Liver profile showing elevated total bili of 4.2, AST of 44, ALT of 20, and alkaline phosphatase of 282. Troponin 0.064 and proBNP 2360. Troponin continues to uptrend. Cardiology was consulted. No invasive procedures recommended by cardiology. Echocardiogram showed mild LV systolic function decrease, severely enlarged left atrium. Orthopedic surgery was consulted, not recommending any interventions. Patient did get slightly more encephalopathic, and had low blood sugars, previous urinalysis was positive, urine culture was positive for ESBL. Repeat urinalysis shows a dirty sample. However, ID is consulted, patient is on IV antibiotics, ertapenem. Patient also developed oliguric SCOOTER. CT face showed neck mass of 3 x 4 cm and right maxillary inflammatory changes. ENT and maxillofacial surgery were consulted. ENT recommended IR consult for consideration of needle biopsy of left neck mass, however, upon review, r adiology deferred this procedure due to having stable imaging/finding of left neck mass/thyroid mass from prior imaging. Patient was however scheduled for dental extraction with abscess drainage of the right mandible. Patient had been transitioned to the ICU on 05/07 for septic shock requiring vasopressor, and had a requirement of 0.14. Underwent surgical extraction of tooth. On 05/12/2023 patient became more encephalopathic, hypercapnic respiratory failure. Also requiring increasing amount of pressors and became oliguric. She was intubated, started on vasopressin, also had dialysis catheter placed and started on dialysis. Patient has been off of sedation for over 2 days, and not much i mprovement in mental status. Prognosis is poor. Data reviewed: WBC 14, hemoglobin 9.2, platelet 80, pH 7.4, pCO2 45, potassium 3.3, creatinine 1.25, blood sugars range between 1 25-1 45, magnesium 1.9 Chest x-ray shows bilateral pleural effusions, stable Subjective: Patient seen and examined at bedside. Continues to remain on vasopressors, minimal urine output, intubated. Has been off of sedation for 2+ days, still minimally responsive. Vitals Signs Reviewed. General: Intubated Derm: Warm, dry, jaundice Head: Atraumatic, normocephalic, symmetric Eyes: scleral icterus, equal and reactive pupil Mouth: No lip lesion, mucus membranes moist Cardiovascular: S1S2 reg, no murmur Lungs: no accessory muscle use, intubated Abdominal: Soft, nondistended Ext: No gross muscle atrophy, generalized anasarca, no contractures Neuro: Responds to painful stimuli Psych: Unable to assess Assessment and Plan: Patient is critically ill, prognosis poor Acute encephalopathy, multifactorial, hepatic and metabolic Septic Shock with with possible sources as following Questionable urinary tract infection, prior cultures growing ESBL Dental abscess status post surgical extraction Liver cirrhosis Ventilatory dependent respiratory failure Leukocytosis, likely reactive Macrocytic anemia, thrombocytopenia in the setting of liver disease Hyperbilirubinemia -Discussed management with pulmonology, continue to wean pressors, continue respiratory support, continue hemodialysis, needs further goals of care discussion - ID following, patient on ertapenem 0.5 g IV daily, on daptomycin 400 mg IV every 48 hours, Eraxis 100 mg IV daily - continue levophed, continue to wean On oral gabapentin 100 decreased to daily -Patient was on primidone for tremors, discontinued -Having bowel movements, on lactulose 30 3 times daily Oliguric SCOOTER, now on hemodialysis Hyponatremia, resolved Mild hypokalemia -Nephrology following, continue hemodialysis, continue 60 mg IV Lasix twice daily, maintain midodrine -hourly strict UOP measurement continue midodrine 10 AC 3 times daily Repeat BMP and magnesium tomorrow NSTEMI, likely type II New onset Afib with controlled ventricular rate History of CAD status post stent -Cardiology commended medical management for NSTEMI -Continue aspirin 81 mg, on pravastatin 80 mg -On amiodarone 200 twice daily for rate control, no anticoagulation due to thrombocytopenia -Continue home metoprolol 12.5 daily Compression fracture of T7 and T8 Acute left posterior eighth rib fracture Fracture of the coronoid process of the left scapula -Orthopedic surgery signed off, patient not a surgical candidate Thyroid mass -Outpatient follow-up DVT ppx: subcu heparin Code status: Full code Anticipated discharge place: Pending clinical course Anticipated discharge time: Pending clinical course Objective - Vital Signs Vital signs: Vital Signs Temp 97.8 F 05/16/23 08:00 Pulse 88 05/16/23 10:00 Resp 15 05/16/23 10:00 BP 144/68 05/15/23 06:57 Pulse Ox 100 05/16/23 10:00 FiO2 25 05/16/23 08:56 Intake & Output 05/15/23 05/16/23 05/16/23 18:59 06:59 18:59 Intake Total 1116.069 892.000 546.847 Output Total 50 65 25 Balance 1066.069 827.000 521.847 Weight 95.9 kg Intake: IV 291 156 72 .9 kvo 105 120 10 Anidulafungin 100 mg In 100 Sodium Chloride 0.9% 100 ml @ 84 mls/hr IVPB DAILY @1300 [facility] Rx#:[id number] Arterial Pressure Bag NS 36 36 12 0.9% Ertapenem 0.5 gm In 50 50 Sodium Chloride 0.9% 50 ml @ 100 mls/hr IVPB DAILY [facility] Rx#:[id number] Intake, IV Titration 52.069 258.000 256.847 Amount Norepinephrine 8 mg In 52.069 258.000 126.847 Sodium Chloride 0.9% 250 ml @ 0.03 MCG/KG/MIN 5. 759 mls/hr IV .Q24H [facility] Rx#:[id number] Potassium Chloride 20 meq 100 In Water For Injection 1 100ml.bag @ 50 mls/hr IVPB Q2H [facility] Rx#: [id number] Sodium Chloride 0.9% 500 30 ml 500 ml @ 10 mls/hr IV .Q24H [facility]ON[facility] Rx#:[id number] Tube Feeding 448 448 128 Other 325 30 90 Output: Urine 50 65 25 Other: Voiding Method Indwelling Catheter Indwelling Catheter Indwelling Catheter ABP, PAP, CO, CI - Last Documented Arterial Blood Pressure 123/41 - Labs CBC & Chem 7: 05/16/23 05:00 05/16/23 05:00 Labs: Abnormal Lab Results - Last 24 Hours (Table) 05/15/23 05/15/23 05/16/23 Range/Units 11:53 19:58 00:33 WBC (3.8-10.6) k/uL RBC (3.80-5.40) m/uL Hgb (11.4-16.0) gm/dL Hct (34.0-46.0) % MCV (80.0-100.0) fL MCH (25.0-35.0) pg RDW (11.5-15.5) % Plt Count (150-450) k/uL Neutrophils # (1.3-7.7) k/uL Lymphocytes # (1.0-4.8) k/uL Macrocytosis ABG pO2 (83-108) mmHg ABG HCO3 (21-25) mmol/L ABG Total CO2 (19-24) mmol/L ABG O2 Saturation (94-97) % Potassium (3.5-5.1) mmol/L BUN (7-17) mg/dL Creatinine (0.52-1.04) mg/dL Glucose (74-99) mg/dL POC Glucose (mg/dL) 145 H 111 H 145 H (70-110) mg/dL Calcium (8.4-10.2) mg/dL Total Bilirubin (0.2-1.3) mg/dL AST (14-36) U/L Alkaline Phosphatase (38-126) U/L Total Protein (6.3-8.2) g/dL Albumin (3.5-5.0) g/dL 05/16/23 05/16/23 05/16/23 Range/Units 05:00 05:00 05:09 WBC 14.0 H (3.8-10.6) k/uL RBC 2.62 L (3.80-5.40) m/uL Hgb 9.2 L (11.4-16.0) gm/dL Hct 27.4 L (34.0-46.0) % MCV 104.4 H (80.0-100.0) fL MCH 35.2 H (25.0-35.0) pg RDW 20.7 H (11.5-15.5) % Plt Count 80 L (150-450) k/uL Neutrophils # 11.7 H (1.3-7.7) k/uL Lymphocytes # 0.8 L (1.0-4.8) k/uL Macrocytosis Marked A ABG pO2 (83-108) mmHg ABG HCO3 (21-25) mmol/L ABG Total CO2 (19-24) mmol/L ABG O2 Saturation (94-97) % Potassium 3.3 L (3.5-5.1) mmol/L BUN 29 H (7-17) mg/dL Creatinine 1.25 H (0.52-1.04) mg/dL Glucose 125 H (74-99) mg/dL POC Glucose (mg/dL) 135 H (70-110) mg/dL Calcium 7.7 L (8.4-10.2) mg/dL Total Bilirubin 1.6 H (0.2-1.3) mg/dL AST 48 H (14-36) U/L Alkaline Phosphatase 180 H (38-126) U/L Total Protein 4.2 L (6.3-8.2) g/dL Albumin 1.7 L (3.5-5.0) g/dL 05/16/23 Range/Units 06:00 WBC (3.8-10.6) k/uL RBC (3.80-5.40) m/uL Hgb (11.4-16.0) gm/dL Hct (34.0-46.0) % MCV (80.0-100.0) fL MCH (25.0-35.0) pg RDW (11.5-15.5) % Plt Count (150-450) k/uL Neutrophils # (1.3-7.7) k/uL Lymphocytes # (1.0-4.8) k/uL Macrocytosis ABG pO2 373 H (83-108) mmHg ABG HCO3 27 H (21-25) mmol/L ABG Total CO2 29 H (19-24) mmol/L ABG O2 Saturation 100.0 H (94-97) % Potassium (3.5-5.1) mmol/L BUN (7-17) mg/dL Creatinine (0.52-1.04) mg/dL Glucose (74-99) mg/dL POC Glucose (mg/dL) (70-110) mg/dL Calcium (8.4-10.2) mg/dL Total Bilirubin (0.2-1.3) mg/dL AST (14-36) U/L Alkaline Phosphatase (38-126) U/L Total Protein (6.3-8.2) g/dL Albumin (3.5-5.0) g/dL
[2023-05-16 11:34] LABS: Glucose,Whole Blood 128 mg/dL (70-110)
--- NOTE | 2023-05-16 14:03 | P.PN ---
Subjective Progress Note Date: 05/16/23 Principal diagnosis: Acute on chronic hypoxic and hypercapnic respiratory failure secondary to pulmonary edema/fluid overload and bilateral pleural effusion This is an 82-year-old female patient with a history of liver cirrhosis, pancytopenia, coronary artery disease with previous stent placement, compression fracture of T7 and T8, acute left posterior eighth rib fracture, thyroid mass, new onset atrial fibrillation and non-ST segment elevation myocardial infarction. She had been admitted back on 04/29/2023 with chest pain and shortness of breath. Echocardiogram revealed impaired left ventricular systolic function with ejection fraction 45%. She was being cared for on the selective care unit. Last evening at a approximately 1145 and rapid response team was called due to hypotension with blood pressure 70 over 40s. She received 100 mL of fluid resuscitation and was transferred to the intensive care unit and initiated on norepinephrine. She is seen today in consultation. She is lethargic. Minimally responsive. She had been calling out in pain earlier. When she was repositioned she settled down. This is felt to be secondary to her compression fractures and rib fractures. He does have a stage II decubitus ulcer. She also has severe suspected neuropathy of the bilateral lower extremities. She is maintaining good O2 saturation in the mid 90s on 2 L/min per nasal cannula. 0.08 mcg/kg/min. She has normal staying at 80 MLS per hour. White count 11.9. Platelets 55,000. Sodium 130. Potassium 4.9. Bicarb 33. BUN 74. Creatinine 2.78. Glucose 137. Urine culture reveals no growth. Currently on ertapenem. X-ray reveals cardiomegaly with mild central vascular congestion and interstitial opacities suggesting edema. Small to moderate bibasilar pleural effusions with adjacent atelectasis. On today's evaluation of 05/09/2023, the patient is being seen for a follow-up. As mentioned, the patient was transferred to the intensive care unit yesterday because of hypotension. She has multiple medical problems including coronary artery disease and previous coronary intervention and stenting and the patient also has liver cirrhosis, and she did encounter a new onset atrial fibrillation. At the same time, the patient is suspected to be septic. The patient has been treated with IV fluids. The patient continues to be on pressors and the patient is currently on norepinephrine running 0.14 mcg/kg/min. IV fluids are running in the rate of 50 cc an hour of normal saline. The patient is currently on IV Invanz. The white cell count today is 11.1. Hemoglobin is at 11 and a platelet count is at 55. Note that the patient has chronic thrombocytopenia related to her chronic liver disease. She also had an acute kidney injury and the cre atinine peaked at 3 and currently is downtrending down to 2.65. Potassium level today is at 5.8 with a sodium level of 132. LFTs are abnormal with an alkaline phosphatase of 314, AST of 51 and ALT of 21. Her procalcitonin level was at 2.53 and her free T4 was 1.36 with a TSH of 5.9. UA was abnormal suspicious for an underlying urinary tract infection and cultures are still pending for now. Meanwhile, the CAT scan of the abdomen and pelvis that was obtained on 05/04/2023 showed no evidence of any acute intra-abdominal process. Nodular contour of the liver was suggestive of liver cirrhosis and the patient had signs of portal hypertension and cardiomegaly and pulm vascular congestion. The CAT scan of the face that was done on 05/04/2023 showed a soft tissue masslike area in the inferior left neck measuring 47 x 36 mm in size and inflammatory changes along the right mandible without an organizing collection. A head and neck abscess cannot be completely ruled out at this point in time. Neurologically, the patient is encephalopathic. She has episodes of crying and yelling and she r emains altered. Her the serum ammonia level was 17. The patient remains on lactulose which is unfortunately being given through the rectal source which is causing significant amount of contamination. At the same time, cardiac rhythm is currently controlled and she remains in atrial fibrillation. She remains on amiodarone 200 mg p.o. twice a day. The Toprol has been placed on hold based on her underlying hypotension. Her echocardiogram from 04/30/2023 showed a ejection fraction of 45%, mild RV dilatation, mild mitral regurgitation, no other significant abnormalities noted. On today's evaluation of 05/10/2023, the patient is being seen for a follow-up. The patient is in the intensive care unit for sepsis and hypotension. Note that the patient underwent an evaluation by the oral surgeon yesterday and the patient was found to have a dental abscess tooth #29 and surgical extraction of the tooth was done and cultures were sent. At the same time, we are suspecting an underlying urine tract infection as another source of sepsis the patient and the patient is currently on IV Invanz as the patient has had previous ESBL producing E. coli in her urine based on the culture that was obtained on 04/26/2023. The patient remains on pressors. She is on norepinephrine running at 0.15 mcg/kg/min. IV fluids are in the form of D5.9 at the rate of 50 cc an hour. Urine output is in order of 30 cc an hour and there is also interval improvement of creatinine which is down to 2.4 with a BUN of 78. Sodium levels at 133 with a potassium level of 5.2. The white cell count is at 10.2 with a hemoglobin of 10.4 and a platelet count of 85. Note that the patient has chronic thrombocytopenia related to her chronic liver disease. She is arousable. She is awake. She is on oxygen at 2 L with a pulse ox of 96%. On 05/11/2023, the patient is more lethargic compared to yesterday. There has been progressive worsening in her mentation and this has been noted throughout the day. In the morning, she was still arousable and later on during the day, the patient became quite obtunded. Based on that, the patient was given a stat CAT scan of the brain that showed no acute intracranial abnormalities. The patient's CAT scan of the brain showed Moderate bifrontal atrophy and old lacunar infarct in the left basal ganglia. There was also slightly heterogeneous appearance of the brainstem felt to be related to a prominent skull base artifact. Subsequently, the patient was given a blood gas that showed a pH of 7.11 with a pCO2 of 93 and pO2 117 and the patient's mental status is most like related to hypercapnic respiratory failure and CO2 narcosis. Chest x-ray that was done earlier this morning that showed cardiomegaly and pulm vascular congestion but the pleural fluid. Fluid balance has been +1 L over the past 24 hours and the patient has been persistently in a positive fluid balance and the patient has diffuse anasarca related to her liver failure and sepsis. The BUN is at 72 with a creatinine of 2.4 and sodium is at 136. WBC count is at 8.2 with a hemoglobin 9.8 and a platelet count of 76. She remains hypotensive. She remains on pressors and the patient is currently on norepinephrine running at 0.09 mcg/kg/min. Her pressor requirements are slightly improved compared to yesterday. She remains on D5 normal saline today stopped 50 cc an hour.. In terms of her cultures, the patient's oral culture is showing some anaerobic growth. She also has Sabrina albicans. Blood cultures were negative. Urine cultures also been negative. The patient remains on IV antibiotics and antibiotics has been modified to a combination of IV Eraxis, daptomycin and IV Invanz. on today's evaluation of 05/12/2023, I am seeing the patient for a follow-up. Events from yesterday were noted. The patient went into hypercapnic respiratory failure and she became altered and obtunded and based on that, and that intubating the patient and placed on mechanical ventilator for acute on chronic hypoxic and hypercapnic respiratory failure. Also, the patient was in significant fluid overload. Immediately postintubation, dialysis catheter was obtained and the patient was started on hemodialysis with ultrafiltration and a total of 2 L of fluid was removed yesterday. This morning, the patient remains intubated on the mechanical ventilator. She is currently on propofol running at 40 mcg/kg/min. She is on assist-control with rate of 26 with a tidal volume of 400 FiO2 40% with a PEEP of 5. Blood gas from this morning showed respiratory alkalosis with a pH of 7.58 and a pCO2 of 29 and pO2 of 77. Based on that, the respiratory rate was dropped down to 77. Chest x-ray from today showing cardiomegaly. There is bilateral pleural effusion worse on the right which is slightly improved compared to yesterday. ET tube is in a good location and the patient also has a triple-lumen catheter in her left IJ and a dialysis catheter in her right IJ. She is still hypotensive. Norepinephrine is running at 0.16 mcg/kg/min. The patient is also on physiologic dose of vasopressin A arterial line catheter was also inserted yesterday and her blood pressure is stable for now with a mean arterial pressure of around 80. Her cardiac rhythm is atrial fibrillation. In terms of the rest of the blood work, the patient has a white cell count of 12.2 with a hemoglobin 9.8 and a platelet count of 103. BUN is at 56 and the creatinine is up down to 1.7. Potassium is down to 4.5 and his sodium level is at 135. Her serum ammonia level is at 23. She continues to have significant amount of third spacing, peripheral edema and diffuse anasarca. In terms of her antibiotic coverage, the patient is currently on a combination of IV Invanz, daptomycin and Eraxis. Enteral feeding has not been started yet. On today's evaluation of 05/13/2023, the patient is being seen for a follow-up. The patient remains intubated on the mechanical ventilator. On today's evaluation, the patient is on propofol which is running at 40 mcg/kg/min. The patient is calm and comfortable and the patient is essentially centralized on the mechanical ventilator. On today's evaluation, the patient is on assist- control mode of mechanical ventilation and she is on a rate of 20, tidal volume of 400, FiO2 at 40% with a PEEP of 5. The chest x-ray is showing cardiomegaly and bilateral pleural effusions slightly improved and the ET tube is in a good location. The blood gas show a pH of 7.50 with a pCO2 of 35 and a pO2 of 118 and this was on FiO2 of 40%. No significant orotracheal secretions. The patient hemodynamically is still pressor dependent. She is currently on norepinephrine running at 0.2 mcg/kg/min and her norepinephrine dose is being titrated as the patient is undergoing hemodialysis and she is having variation and fluctuations in blood pressure. She is also on physiologic dose of vasopressin. No other hemodialysis was performed yesterday with a total of 2 point liters of ultrafiltration. Another session of hemodialysis being done today. The patient remains on Lasix 60 mg IV push every 12 hours. The fluid balance over the past 24 hours has been negative as the patient is making some urine output in the same time the patient is being dialyzed and ultrafiltrate it. Antibiotic coverage includes a combination of Invanz, Eraxis and daptomycin. Note that the patient had blood culture sent and the results are still pending for now. The cultures from the mouth and the right mandible were positive for staph hemolyticus and Sabrina albicans. The patient at the same ti me is in atrial fibrillation. The patient is on vital high-protein at the rate of 32 cc an hour and the patient seems to be tolerating her enteral feeding without any major difficulties. WBC count 11.7 with a hemoglobin 9.7 and a platelet count of 111. Sodium is at 132 with a potassium level of 3.7, BUN is 44 with a creatinine of 1.5 and a glucose of 154. LFTs are showing some mild elevation of the alkaline phosphatase at 218 and a total of 10 protein is at 4.5 with an albumin of 1.9. On 05/14/2023, the patient is being seen for a follow-up. Remains intubated on the mechanical ventilator. Sedation was discontinued yesterday and she has been off sedation for approximately 12 hours. She is sluggishly responsive to painful stimulation. Unable to communicate. Profoundly lethargic and sleepy. Most recent ammonia level was 2424 from yesterday. The patient remains on lactulose 30 g once a day and we are monitoring bowel movement activity on this patient. As mentioned earlier, the patient has liver cirrhosis, massive fluid overload, renal failure, respiratory failure requiring intubation mechanical ventilation and the patient is undergoing daily dialysis with ultrafiltration. Dialysis was done yesterday and approximately 2 L of fluid was removed. The goal for today is around 3 L. She continues to have diffuse anasarca, extensive edema in all 4 extremities, and the chest x-ray still showing bilateral pleural effusion which is essentially unchanged. While on the mechanical ventilator, she is on assist-control mode with rate of 14, tidal volume of 400, FiO2 40% with a PEEP of 5. Blood gas shows a pH of 7.58 with a pCO2 of 29 and pO2 of 77 and this was an FiO2 of 40%. Rest of the blood work and electrolytes show a sodium level of 135, potassium level is at 4.5, BUN is at 56 with a creatinine of 1.7. Potassium level is at 4.5. LFTs are normal with mild elevation of alkaline phosphatase at 240. Serum albumin is at 1.9 with a total protein of 4.4. She is afebrile. She remains on a combination of antibiotics. She is on IV Invanz, Eraxis and daptomycin. Hemodynamically, she is still requiring pressors and the patient is currently on norepinephrine at 0.15 mcg/kg/min. IV fluids are currently at KVO. Enteral feeding for nutritional support is being provided and the patient is currently on vital high-protein at a rate of 32 cc an hour. She is afebrile for now. No other significant events overnight. 05/15/2023, the patient is being seen for a follow-up. The patient is undergoing daily hemodialysis. Yesterday she underwent hemodialysis ultrafiltration with 2 L of fluid removed and the same was done earlier this morning prior to my arrival. This morning, the patient is still off the propofol. She is grimacing to painful stimulation. However, she is still significantly encephalopathic and obtunded. Note that she has also history of liver cirrhosis and she has a component of hepatic encephalopathy, and metabolic encephalopathy. Postintub ation, drugs were provided in the form of propofol which may be also contributing to her diminished level of consciousness. In terms of her acid- base balance, her pCO2 has improved and she remains on mechanical ventilator and the most recent vent setting including assist-control of 14, tidal volume of 350, FiO2 of 30% with a PEEP of 5. pH is 7.39 with a pCO2 of 46 and pO2 of 105. Repeat chest x-ray from today shows improvement in volume status. There is diminution of the bilateral pleural effusions. She continues to have significant fluid overload with third spacing and edema in all 4 extremities. Hemodynamically, the patient is still on norepinephrine which has been weaned down to 0.09 mcg/kg/min. Her white cell count is at 9.9. She is afebrile. Hemoglobin is at 9.9 and a white cell count is at 14.4. Platelet count is at 91. Rest of blood work shows a BUN of 20, creatinine of 0.8, sodium levels at 137 and a potassium level of 3.1. The patient remains essentially on the same antibiotic coverage and she is on a combination of daptomycin, IV Invanz and Eraxis. In terms of enteral feeding, she remains on vital HP at a rate of 32 cc an hour which is at goal. In terms of bowel movement activity, the patient remains on lactulose for hepatic encephalopathy. The most recent ammonia level is currently at 24 Patient was reevaluated today on 05/16/2023, martha in the ICU, intubated and mechanically ventilated, on hemodialysis. Patient is on assist-control rate of 14 tidal volume 350 FiO2 30% and PEEP of 5. Patient is not sedated has been off propofol since 05/12, she is requiring a small dose of norepinephrine at 0.06 mcg/kg/min, ABG showed a pO2 of 373 pCO2 45 pH of 7.40 patient is now on 50% FiO2. Patient remains on daptomycin, Eraxis, and Invanz, chest x-ray showed endotracheal tube to tube to be far down in the carinal area, and this needs to be pulled up about 2 cm patient is developing drop in her platelets, remains on subcu heparin, and will continue to monitor the platelets. Chest x-ray continues to show small bilateral pleural effusions, patient will not require thoracentesis at this point since she is receiving hemodialysis/ultrafiltration. WBC count is 14 hemoglobin 9.2. Basic metabolic profile is normal except for potassium of 3.3 BUN of 29 creatinine 1.25. Her blood cultures have been negative however cultures from the right mandible/wound cultures grew positive for Staphylococcus hemolyticus, antibiotics as noted earlier. Including da ptomycin, Eraxis, and Invanz Objective - Vital Signs Vital signs: Vital Signs Temp 98.2 F 05/16/23 12:00 Pulse 73 05/16/23 13:30 Resp 16 05/16/23 13:30 BP 144/68 05/15/23 06:57 Pulse Ox 100 05/16/23 13:30 FiO2 25 05/16/23 12:00 Intake & Output 05/15/23 05/16/23 05/16/23 18:59 06:59 18:59 Intake Total 1116.069 892.000 780.991 Output Total 50 65 45 Balance 1066.069 827.000 735.991 Weight 95.9 kg 95.9 kg Intake: IV 291 156 81 .9 kvo 105 120 10 Anidulafungin 100 mg In 100 Sodium Chloride 0.9% 100 ml @ 84 mls/hr IVPB DAILY @1300 [facility] Rx#:[id number] Arterial Pressure Bag NS 36 36 21 0.9% Ertapenem 0.5 gm In 50 50 Sodium Chloride 0.9% 50 ml @ 100 mls/hr IVPB DAILY [facility] Rx#:[id number] Intake, IV Titration 52.069 258.000 323.991 Amount Norepinephrine 8 mg In 52.069 258.000 163.991 Sodium Chloride 0.9% 250 ml @ 0.03 MCG/KG/MIN 5. 759 mls/hr IV .Q24H [facility] Rx#:[id number] Potassium Chloride 20 meq 100 In Water For Injection 1 100ml.bag @ 50 mls/hr IVPB Q2H [facility] Rx#: [id number] Sodium Chloride 0.9% 500 60 ml 500 ml @ 10 mls/hr IV .Q24H [facility] Rx#:[id number] Tube Feeding 448 448 256 Other 325 30 120 Output: Urine 50 65 45 Other: Voiding Method Indwelling Catheter Indwelling Catheter Indwelling Catheter ABP, PAP, CO, CI - Last Documented Arterial Blood Pressure 99/38 - Exam GENERAL EXAM:, Revealed 82-year-old female, arousable, opens her eyes to deep painful stimuli, but does not follow any instructions. Patient has been off propofol for the last few days HEAD: Normocephalic. EYES: Normal reaction of pupils, equal size. NOSE: Clear with pink turbinates. THROAT: No erythema or exudates. Unable to feel any collection in her mandibular area or neck area to suggest any abscess or masses. She does have however very poor dental condition with multiple decayed teeth and several teeth are missing. The incisors in the lower mandible are rotten and broken and decayed and the gum is pale with occasional areas of patchy redness. NECK: No masses, no JVD. The patient has a left IJ triple-lumen catheter in the right IJ dialysis catheter. CHEST: No chest wall deformity. LUNGS: Equal air entry with bibasilar crackles. CVS: S1 and S2 normal with no audible murmur, regular rhythm. ABDOMEN: Soft nontender no megaly no rebound no guarding. SPINE: No scoliosis or deformity SKIN: Stage II coccyx ulcer CENTRAL NERVOUS SYSTEM: Opens eyes to deep painful stimuli but does not follow any instructions in spite of being off propofol EXTREMITIES: There is 3+ peripheral edema. No clubbing, no cyanosis. Peripheral pulses are intact. - Labs CBC & Chem 7: 05/16/23 05:00 05/16/23 05:00 Labs: Abnormal Lab Results - Last 24 Hours (Table) 05/15/23 05/16/23 05/16/23 Range/Units 19:58 00:33 05:00 WBC 14.0 H (3.8-10.6) k/uL RBC 2.62 L (3.80-5.40) m/uL Hgb 9.2 L (11.4-16.0) gm/dL Hct 27.4 L (34.0-46.0) % MCV 104.4 H (80.0-100.0) fL MCH 35.2 H (25.0-35.0) pg RDW 20.7 H (11.5-15.5) % Plt Count 80 L (150-450) k/uL Neutrophils # 11.7 H (1.3-7.7) k/uL Lymphocytes # 0.8 L (1.0-4.8) k/uL Macrocytosis Marked A ABG pO2 (83-108) mmHg ABG HCO3 (21-25) mmol/L ABG Total CO2 (19-24) mmol/L ABG O2 Saturation (94-97) % Potassium (3.5-5.1) mmol/L BUN (7-17) mg/dL Creatinine (0.52-1.04) mg/dL Glucose (74-99) mg/dL POC Glucose (mg/dL) 111 H 145 H (70-110) mg/dL Calcium (8.4-10.2) mg/dL Total Bilirubin (0.2-1.3) mg/dL AST (14-36) U/L Alkaline Phosphatase (38-126) U/L Total Protein (6.3-8.2) g/dL Albumin (3.5-5.0) g/dL 05/16/23 05/16/23 05/16/23 Range/Units 05:00 05:09 06:00 WBC (3.8-10.6) k/uL RBC (3.80-5.40) m/uL Hgb (11.4-16.0) gm/dL Hct (34.0-46.0) % MCV (80.0-100.0) fL MCH (25.0-35.0) pg RDW (11.5-15.5) % Plt Count (150-450) k/uL Neutrophils # (1.3-7.7) k/uL Lymphocytes # (1.0-4.8) k/uL Macrocytosis ABG pO2 373 H (83-108) mmHg ABG HCO3 27 H (21-25) mmol/L ABG Total CO2 29 H (19-24) mmol/L ABG O2 Saturation 100.0 H (94-97) % Potassium 3.3 L (3.5-5.1) mmol/L BUN 29 H (7-17) mg/dL Creatinine 1.25 H (0.52-1.04) mg/dL Glucose 125 H (74-99) mg/dL POC Glucose (mg/dL) 135 H (70-110) mg/dL Calcium 7.7 L (8.4-10.2) mg/dL Total Bilirubin 1.6 H (0.2-1.3) mg/dL AST 48 H (14-36) U/L Alkaline Phosphatase 180 H (38-126) U/L Total Protein 4.2 L (6.3-8.2) g/dL Albumin 1.7 L (3.5-5.0) g/dL 05/16/23 Range/Units 11:31 WBC (3.8-10.6) k/uL RBC (3.80-5.40) m/uL Hgb (11.4-16.0) gm/dL Hct (34.0-46.0) % MCV (80.0-100.0) fL MCH (25.0-35.0) pg RDW (11.5-15.5) % Plt Count (150-450) k/uL Neutrophils # (1.3-7.7) k/uL Lymphocytes # (1.0-4.8) k/uL Macrocytosis ABG pO2 (83-108) mmHg ABG HCO3 (21-25) mmol/L ABG Total CO2 (19-24) mmol/L ABG O2 Saturation (94-97) % Potassium (3.5-5.1) mmol/L BUN (7-17) mg/dL Creatinine (0.52-1.04) mg/dL Glucose (74-99) mg/dL POC Glucose (mg/dL) 128 H (70-110) mg/dL Calcium (8.4-10.2) mg/dL Total Bilirubin (0.2-1.3) mg/dL AST (14-36) U/L Alkaline Phosphatase (38-126) U/L Total Protein (6.3-8.2) g/dL Albumin (3.5-5.0) g/dL Assessment and Plan Assessment: Impression: Acute on chronic hypoxic and hypercapnic respiratory failure, secondary to pulmonary edema and fluid overload with renal failure requiring hemodialysis and ultrafiltration. Acute metabolic encephalopathy Sepsis and septic shock with bacteremia secondary to mandibular abscess. And recent tooth extraction Bilateral pleural effusion right more than left, improving on today's chest x- ray Acute kidney injury secondary to above, requiring hemodialysis. Acute hyperkalemia, improved compression fractures of T7 and T8 and acute left posterior eighth rib fracture Neuropathy Stage II decubitus ulcer History of liver cirrhosis Pancytopenia Non-ST segment elevation myocardial infarction New onset atrial fibrillation with controlled ventricular response, rate controlled for now. 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 Recommendation: Continue ventilatory support Continue hemodynamic support Continue nutritional support/enteral feeding Continue antibiotics as per ID on the case Continue hemodialysis/ultrafiltration Continue to monitor strictly I's and O's, and weights Continue Lasix as long as the patient is responding to diuretics Continue GI and DVT prophylaxis monitor platelets closely Continue lactulose Patient remains critically ill Not quite ready for extubation Will continue to follow critical care time is over 30 minutes Time with Patient: Greater than 30
[2023-05-16 17:54] LABS: Glucose,Whole Blood 127 mg/dL (70-110)
[2023-05-17 00:49] LABS: Glucose,Whole Blood 143 mg/dL (70-110)
[2023-05-17 05:44] LABS: Anisocytosis Moderate; Basophils # (A) 0.1 k/uL (0-0.2); Basophils % (A) 1 %; Eosinophils # (A) 0.3 k/uL (0-0.7); Eosinophils % (A) 2 %; HCT 28.9 % (34.0-46.0); HGB 9.2 gm/dL (11.4-16.0); Hypochromasia Moderate; Lymphocytes # (A) 0.7 k/uL (1.0-4.8); Lymphocytes % (A) 5 %; MCH 33.6 pg (25.0-35.0); MCV 105.2 fL (80.0-100.0); Monocytes % (A) 6 %; Neutrophils # (A) 12.5 k/uL (1.3-7.7); Neutrophils % (A) 85 %; Poikilocytosis Moderate; RBC 2.75 m/uL (3.80-5.40); RDW 20.4 % (11.5-15.5); WBC 14.8 k/uL (3.8-10.6)
[2023-05-17 05:56] LABS: Macrocytosis Marked; Platelet Count 77 k/uL (150-450)
[2023-05-17 05:59] LABS: ALT 24 U/L (4-34); AST 71 U/L (14-36); African American GFR (CKD) 52 (>60 ml/min/1.73 sqM); Albumin 1.7 g/dL (3.5-5.0); Alkaline Phosphatase 171 U/L (38-126); Anion Gap 1 mmol/L; Blood Urea Nitrogen 28 mg/dL (7-17); Calcium 7.9 mg/dL (8.4-10.2); Carbon Dioxide 25 mmol/L (22-30); Chloride 107 mmol/L (98-107); Glucose 124 mg/dL (74-99); Non-African American GFR(CKD) 45 (>60 ml/min/1.73 sqM); Sodium 133 mmol/L (137-145); Total Bilirubin 1.6 mg/dL (0.2-1.3); Total Protein 4.4 g/dL (6.3-8.2)
[2023-05-17 06:12] LABS: Potassium 4.3 mmol/L (3.5-5.1)
[2023-05-17 06:17] LABS: ABG HCO3 29 mmol/L (21-25); ABG PCO2 45 mmHg (35-45); ABG PH 7.41 (7.35-7.45); ABG PO2 88 mmHg (83-108); ABG TCO2 30 mmol/L (19-24)
[2023-05-17 06:41] LABS: Allen Test Performed? no
[2023-05-17 06:48] LABS: Glucose,Whole Blood 114 mg/dL (70-110)
[2023-05-17] MEDS: GABAPENTIN 100 MG CAP PO SCH (09:52)
--- NOTE | 2023-05-17 11:18 | P.PN ---
Subjective Progress Note Date: 05/17/23 Hospital Course: 82-year-old female with history of liver cirrhosis, CAD status post stent, chronic systolic heart failure, hypertension, dyslipidemia, chronic pancytopenia, ITP presented with chest pain and shortness of breath. On initial presentation, patient was tachycardic, tachypneic, saturating well on room air. EKG showed sinus tachycardia with known left bundle branch block. Chest x-ray showed pulmonary vascular interstitial markings. 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 CBC showing pancytopenia with WBC count of 1.6, hemoglobin 11.3, platelet count of 41. Coagulation profile showing elevated INR of 1.3. BMP showing hyponatremia with sodium of 131, elevated BUN of 33, creatinine 1.19, GFR 43. Liver profile showing elevated total bili of 4.2, AST of 44, ALT of 20, and alkaline phosphatase of 282. Troponin 0.064 and proBNP 2360. Troponin continues to uptrend. Cardiology was consulted. No invasive procedures recommended by cardiology. Echocardiogram showed mild LV systolic function decrease, severely enlarged left atrium. Orthopedic surgery was consulted, not recommending any interventions. Patient did get slightly more encephalopathic, and had low blood sugars, previous urinalysis was positive, urine culture was positive for ESBL. Repeat urinalysis shows a dirty sample. However, ID is consulted, patient is on IV antibiotics, ertapenem. Patient also developed oliguric SCOOTER. CT face showed neck mass of 3 x 4 cm and right maxillary inflammatory changes. ENT and maxillofacial surgery were consulted. ENT recommended IR consult for consideration of needle biopsy of left neck mass, however, upon review, r adiology deferred this procedure due to having stable imaging/finding of left neck mass/thyroid mass from prior imaging. Patient was however scheduled for dental extraction with abscess drainage of the right mandible. Patient had been transitioned to the ICU on 05/07 for septic shock requiring vasopressor, and had a requirement of 0.14. Underwent surgical extraction of tooth. On 05/12/2023 patient became more encephalopathic, hypercapnic respiratory failure. Also requiring increasing amount of pressors and became oliguric. She was intubated, started on vasopressin, also had dialysis catheter placed and started on dialysis. Patient has been off of sedation for over 2 days, with very minimal improvement in mental status. Prognosis remains poor. Data reviewed: WBC 14.8, hemoglobin 9.2, platelet 77, pH 7.41, pCO2 45, sodium 133, creatinine 1.15, blood sugars range between 114-143, total bilirubin 1.6, AST 71, ALT 24, ALP 171 Chest x-ray shows bilateral pleural effusions, slightly improved from yesterday Subjective: Patient seen and examined at bedside. Continue to wean vasopressor, on Levophed at 0.03, minimal vent settings. Patient is responding a little bit more today, tried to talk on her tube. Follows some commands. However, remains extremely weak. Not having lots of bowel movements, has an FMS. Vitals Signs Reviewed. General: Intubated Derm: Warm, dry, jaundice Head: Atraumatic, normocephalic, symmetric Eyes: scleral icterus, equal and reactive pupil Mouth: No lip lesion, mucus membranes moist Cardiovascular: S1S2 reg, no murmur Lungs: no accessory muscle use, intubated Abdominal: Soft, nondistended Ext: No gross muscle atrophy, generalized anasarca, no contractures Neuro: Responds to painful stimuli, follows some commands such as squeezing hands Psych: Unable to assess Assessment and Plan: Patient is critically ill, prognosis poor Acute encephalopathy, multifactorial, hepatic and metabolic Septic Shock with with possible sources as following -Questionable urinary tract infection, prior cultures growing ESBL -Dental abscess status post surgical extraction Acute hypoxic and hypercapnic respiratory failure, now ventilator dependent Pleural effusions bilateral Leukocytosis, likely reactive Liver cirrhosis Macrocytic anemia, thrombocytopenia in the setting of liver disease Hyperbilirubinemia -Discussed management with pulmonology, continue to wean pressors, continue respiratory support, continue hemodialysis - ID following, patient on ertapenem 0.5 g IV daily, on daptomycin 400 mg IV every 48 hours, Eraxis 100 mg IV daily - continue levophed, continue to wean On oral gabapentin 100 decreased to daily -Patient was on primidone for tremors, discontinued -Having a lot of bowel movements, lactulose decreased to 30 daily Oliguric SCOOTER, now on hemodialysis Hyponatremia, hypervolemic Mild hypokalemia, resolved -Nephrology following, continue hemodialysis, continue 60 mg IV Lasix twice daily, maintain midodrine 10 3 times daily Repeat BMP and magnesium tomorrow NSTEMI, likely type II New onset Afib with controlled ventricular rate History of CAD status post stent -Cardiology signed off, recommended medical management -Continue aspirin 81 mg -On amiodarone 200 twice daily for rate control, metoprolol 12.5 daily, no anticoagulation due to thrombocytopenia Compression fracture of T7 and T8 Acute left posterior eighth rib fracture Fracture of the coronoid process of the left scapula -Orthopedic surgery signed off, patient not a surgical candidate Thyroid mass -Outpatient follow-up DVT ppx: subcu heparin Code status: Full code Anticipated discharge place: Pending clinical course Anticipated discharge time: Pending clinical course Objective - Vital Signs Vital signs: Vital Signs Temp 98.5 F 05/17/23 08:00 Pulse 73 05/17/23 11:00 Resp 24 05/17/23 11:00 BP 143/55 05/16/23 16:37 Pulse Ox 100 05/17/23 11:00 FiO2 28 05/17/23 10:45 Intake & Output 05/16/23 05/17/23 05/17/23 18:59 06:59 18:59 Intake Total 1669.642 486.73 65 Output Total 3470 57 425 Balance -1800.358 429.73 -360 Weight 95.9 kg 94.2 kg Intake: IV 196 126 65 .9 kvo 10 90 50 Anidulafungin 100 mg In 100 Sodium Chloride 0.9% 100 ml @ 84 mls/hr IVPB DAILY @1300 [facility] Rx#:[id number] Arterial Pressure Bag NS 36 36 15 0.9% Ertapenem 0.5 gm In 50 Sodium Chloride 0.9% 50 ml @ 100 mls/hr IVPB DAILY [facility] Rx#:[id number] Intake, IV Titration 417.642 42.73 Amount Norepinephrine 8 mg In 217.642 32.73 Sodium Chloride 0.9% 250 ml @ 0.03 MCG/KG/MIN 5. 759 mls/hr IV .Q24H [facility] Rx#:[id number] Potassium Chloride 20 meq 100 In Water For Injection 1 100ml.bag @ 50 mls/hr IVPB Q2H [facility] Rx#: [id number] Sodium Chloride 0.9% 500 100 10 ml 500 ml @ 10 mls/hr IV .Q24H [facility] Rx#:[id number] Tube Feeding 416 288 Hemodialysis 400 Other 240 30 Output: Urine 70 57 25 Urine/Stool Mix 400 Hemodialysis 3400 Other: Voiding Method Indwelling Catheter Indwelling Catheter ABP, PAP, CO, CI - Last Documented Arterial Blood Pressure 91/44 - Labs CBC & Chem 7: 05/17/23 05:18 05/17/23 05:18 Labs: Abnormal Lab Results - Last 24 Hours (Table) 05/16/23 05/16/23 05/17/23 Range/Units 11:31 17:52 00:46 WBC (3.8-10.6) k/uL RBC (3.80-5.40) m/uL Hgb (11.4-16.0) gm/dL Hct (34.0-46.0) % MCV (80.0-100.0) fL RDW (11.5-15.5) % Plt Count (150-450) k/uL Neutrophils # (1.3-7.7) k/uL Lymphocytes # (1.0-4.8) k/uL Macrocytosis ABG HCO3 (21-25) mmol/L ABG Total CO2 (19-24) mmol/L ABG O2 Saturation (94-97) % Sodium (137-145) mmol/L BUN (7-17) mg/dL Creatinine (0.52-1.04) mg/dL Glucose (74-99) mg/dL POC Glucose (mg/dL) 128 H 127 H 143 H (70-110) mg/dL Calcium (8.4-10.2) mg/dL Total Bilirubin (0.2-1.3) mg/dL AST (14-36) U/L Alkaline Phosphatase (38-126) U/L Total Protein (6.3-8.2) g/dL Albumin (3.5-5.0) g/dL 05/17/23 05/17/23 05/17/23 Range/Units 05:18 05:18 06:16 WBC 14.8 H (3.8-10.6) k/uL RBC 2.75 L (3.80-5.40) m/uL Hgb 9.2 L (11.4-16.0) gm/dL Hct 28.9 L (34.0-46.0) % MCV 105.2 H (80.0-100.0) fL RDW 20.4 H (11.5-15.5) % Plt Count 77 L (150-450) k/uL Neutrophils # 12.5 H (1.3-7.7) k/uL Lymphocytes # 0.7 L (1.0-4.8) k/uL Macrocytosis Marked A ABG HCO3 29 H (21-25) mmol/L ABG Total CO2 30 H (19-24) mmol/L ABG O2 Saturation 98.0 H (94-97) % Sodium 133 L (137-145) mmol/L BUN 28 H (7-17) mg/dL Creatinine 1.15 H (0.52-1.04) mg/dL Glucose 124 H (74-99) mg/dL POC Glucose (mg/dL) (70-110) mg/dL Calcium 7.9 L (8.4-10.2) mg/dL Total Bilirubin 1.6 H (0.2-1.3) mg/dL AST 71 H (14-36) U/L Alkaline Phosphatase 171 H (38-126) U/L Total Protein 4.4 L (6.3-8.2) g/dL Albumin 1.7 L (3.5-5.0) g/dL 05/17/23 Range/Units 06:47 WBC (3.8-10.6) k/uL RBC (3.80-5.40) m/uL Hgb (11.4-16.0) gm/dL Hct (34.0-46.0) % MCV (80.0-100.0) fL RDW (11.5-15.5) % Plt Count (150-450) k/uL Neutrophils # (1.3-7.7) k/uL Lymphocytes # (1.0-4.8) k/uL Macrocytosis ABG HCO3 (21-25) mmol/L ABG Total CO2 (19-24) mmol/L ABG O2 Saturation (94-97) % Sodium (137-145) mmol/L BUN (7-17) mg/dL Creatinine (0.52-1.04) mg/dL Glucose (74-99) mg/dL POC Glucose (mg/dL) 114 H (70-110) mg/dL Calcium (8.4-10.2) mg/dL Total Bilirubin (0.2-1.3) mg/dL AST (14-36) U/L Alkaline Phosphatase (38-126) U/L Total Protein (6.3-8.2) g/dL Albumin (3.5-5.0) g/dL Microbiology - Last 24 Hours (Table) 05/11/23 08:56 Blood Culture - Final Blood
--- NOTE | 2023-05-17 11:22 | XR ---
EXAMINATION TYPE: XR chest 1V portable DATE OF EXAM: 05/17/2023 Comparison: 05/16/2023 Clinical History: 82-year-old female mechanical ventilation Findings: ET tube tip 1.8 cm from the lizzie. Consider pulling back 1 cm and reassessing of follow-up. Left IJ CVC tip upper right atrium. Right-sided IJ CVC tip of the right atrium. NG tube courses below the evette phragm. Heart mildly enlarged. Ongoing small bilateral pleural effusions with bibasilar opacities. Impression: 1. ET tube tip 1.8 cm from the lizzie. Pull back 1 cm and reassessed on follow-up. 2. Similar mild cardiomegaly and ongoing small bilateral pleural effusions with prominent adjacent at electasis and/or consolidation.
[2023-05-17 11:41] LABS: Glucose,Whole Blood 125 mg/dL (70-110)
--- NOTE | 2023-05-17 12:01 | P.PN ---
Subjective Patient is seen for follow-up for acute kidney injury. Started hemodialysis on May 11, 2023 for severe volume overload and poor urine output. Patient is currently on the vent. FiO2 at 25%. Seen on hemodialysis. Patient is awake Urine output at 0-10 mL an hour. UF off 16.5 L over the last 1 week Objective - Vital Signs Vital signs: Vital Signs Temp 98.5 F 05/17/23 08:00 Pulse 73 05/17/23 11:00 Resp 24 05/17/23 11:00 BP 143/55 05/16/23 16:37 Pulse Ox 100 05/17/23 11:00 FiO2 28 05/17/23 11:31 Intake & Output 05/16/23 05/17/23 05/17/23 18:59 06:59 18:59 Intake Total 1669.642 486.73 97 Output Total 3470 57 425 Balance -1800.358 429.73 -328 Weight 95.9 kg 94.2 kg Intake: IV 196 126 65 .9 kvo 10 90 50 Anidulafungin 100 mg In 100 Sodium Chloride 0.9% 100 ml @ 84 mls/hr IVPB DAILY @1300 [facility] Rx#:[id number] Arterial Pressure Bag NS 36 36 15 0.9% Ertapenem 0.5 gm In 50 Sodium Chloride 0.9% 50 ml @ 100 mls/hr IVPB DAILY [facility] Rx#:[id number] Intake, IV Titration 417.642 42.73 Amount Norepinephrine 8 mg In 217.642 32.73 Sodium Chloride 0.9% 250 ml @ 0.03 MCG/KG/MIN 5. 759 mls/hr IV .Q24H [facility] Rx#:[id number] Potassium Chloride 20 meq 100 In Water For Injection 1 100ml.bag @ 50 mls/hr IVPB Q2H [facility] Rx#: [id number] Sodium Chloride 0.9% 500 100 10 ml 500 ml @ 10 mls/hr IV .Q24H [facility] Rx#:[id number] Tube Feeding 416 288 32 Hemodialysis 400 Other 240 30 Output: Urine 70 57 25 Urine/Stool Mix 400 Hemodialysis 3400 Other: Voiding Method Indwelling Catheter Indwelling Catheter Indwelling Catheter ABP, PAP, CO, CI - Last Documented Arterial Blood Pressure 91/44 - Exam Patient is sedated and on the vent Opens eyes to verbal stimuli Examination of the heart S1 and S2 Examination of the lungs shows bilateral breath sounds are heard Abdomen is soft, distended with significant edema noted Examination of lower extremities shows 3-4+ edema - Labs CBC & Chem 7: 05/17/23 05:18 05/17/23 05:18 Labs: Abnormal Lab Results - Last 24 Hours (Table) 05/16/23 05/17/23 05/17/23 Range/Units 17:52 00:46 05:18 WBC 14.8 H (3.8-10.6) k/uL RBC 2.75 L (3.80-5.40) m/uL Hgb 9.2 L (11.4-16.0) gm/dL Hct 28.9 L (34.0-46.0) % MCV 105.2 H (80.0-100.0) fL RDW 20.4 H (11.5-15.5) % Plt Count 77 L (150-450) k/uL Neutrophils # 12.5 H (1.3-7.7) k/uL Lymphocytes # 0.7 L (1.0-4.8) k/uL Macrocytosis Marked A ABG HCO3 (21-25) mmol/L ABG Total CO2 (19-24) mmol/L ABG O2 Saturation (94-97) % Sodium (137-145) mmol/L BUN (7-17) mg/dL Creatinine (0.52-1.04) mg/dL Glucose (74-99) mg/dL POC Glucose (mg/dL) 127 H 143 H (70-110) mg/dL Calcium (8.4-10.2) mg/dL Total Bilirubin (0.2-1.3) mg/dL AST (14-36) U/L Alkaline Phosphatase (38-126) U/L Total Protein (6.3-8.2) g/dL Albumin (3.5-5.0) g/dL 05/17/23 05/17/23 05/17/23 Range/Units 05:18 06:16 06:47 WBC (3.8-10.6) k/uL RBC (3.80-5.40) m/uL Hgb (11.4-16.0) gm/dL Hct (34.0-46.0) % MCV (80.0-100.0) fL RDW (11.5-15.5) % Plt Count (150-450) k/uL Neutrophils # (1.3-7.7) k/uL Lymphocytes # (1.0-4.8) k/uL Macrocytosis ABG HCO3 29 H (21-25) mmol/L ABG Total CO2 30 H (19-24) mmol/L ABG O2 Saturation 98.0 H (94-97) % Sodium 133 L (137-145) mmol/L BUN 28 H (7-17) mg/dL Creatinine 1.15 H (0.52-1.04) mg/dL Glucose 124 H (74-99) mg/dL POC Glucose (mg/dL) 114 H (70-110) mg/dL Calcium 7.9 L (8.4-10.2) mg/dL Total Bilirubin 1.6 H (0.2-1.3) mg/dL AST 71 H (14-36) U/L Alkaline Phosphatase 171 H (38-126) U/L Total Protein 4.4 L (6.3-8.2) g/dL Albumin 1.7 L (3.5-5.0) g/dL 05/17/23 Range/Units 11:39 WBC (3.8-10.6) k/uL RBC (3.80-5.40) m/uL Hgb (11.4-16.0) gm/dL Hct (34.0-46.0) % MCV (80.0-100.0) fL RDW (11.5-15.5) % Plt Count (150-450) k/uL Neutrophils # (1.3-7.7) k/uL Lymphocytes # (1.0-4.8) k/uL Macrocytosis ABG HCO3 (21-25) mmol/L ABG Total CO2 (19-24) mmol/L ABG O2 Saturation (94-97) % Sodium (137-145) mmol/L BUN (7-17) mg/dL Creatinine (0.52-1.04) mg/dL Glucose (74-99) mg/dL POC Glucose (mg/dL) 125 H (70-110) mg/dL Calcium (8.4-10.2) mg/dL Total Bilirubin (0.2-1.3) mg/dL AST (14-36) U/L Alkaline Phosphatase (38-126) U/L Total Protein (6.3-8.2) g/dL Albumin (3.5-5.0) g/dL Microbiology - Last 24 Hours (Table) 05/11/23 08:56 Blood Culture - Final Blood Assessment and Plan Assessment: 1. Acute kidney injury, oliguric ATN secondary to hypotension and sepsis. UA shows 1+ protein and trace blood and WBCs 16. Ultrasound of the kidneys shows right kidney 10.0 cm left kidney 8.4 cm no hydronephrosis noted. Started hemodialysis on 05/11/2023 due to severe volume overload and poor urine output. 2. Non-gap metabolic acidosis secondary to acute kidney injury 3. Hyperkalemia associated with acute kidney injury, resolved 4. Non-ST elevation RI 5. Sepsis with source most likely related to UTI as previous urine culture on 04/26/2023 showed ESBL E. coli versus the dental abscess 6. Encephalopathy , metabolic 7. Acute hypoxic respiratory failure currently on the vent 8. Severe volume overload 9. Hypokalemia Plan: Continue daily dialysis and UF as tolerated
--- NOTE | 2023-05-17 13:06 | P.PN ---
Subjective Progress Note Date: 05/16/23 Principal diagnosis: Reason for follow-up is leukocytosis and UTI Patient is a 82-year-old female with a past medical history significant for hypertension hyperlipidemia thrombocytopenia cirrhosis of the liver [place] osteoarthritis patient was brought into the ER for evaluation of chest pain patient subsequently did have significant worsening of her mentation did have a positive UA concerning for possible component of UTI, with subsequent workup that shows evidence of dental abscess especially to tooth #29, patient did have extraction of tooth #29 along with drainage of the abscess completed on 05/09/2023.Patient did have dialysis catheter placement evening of 05/11/2023 subsequently patient did have a worsening respiratory status ended up getting intubated on 05/11/2023, the patient did get a dialysis catheter on 05/11/2023 and has been started on dialysis On today's visit that is 05/16/2023, Patient remains to be afebrile, the patient remains to be intubated on the vent FiO2 is currently at 25%, no significant purulent secretions through the ET or any changes reported by the nursing staff the patient requiring pressor support to maintain her blood pressure. Patient white count is 14.0 about the same as yesterday, creatinine is 1.25 Objective - Vital Signs Vital signs: Vital Signs Temp 98.2 F 05/16/23 12:00 Pulse 86 05/16/23 12:15 Resp 18 05/16/23 12:15 BP 144/68 05/15/23 06:57 Pulse Ox 100 05/16/23 12:15 FiO2 25 05/16/23 12:00 Intake & Output 05/15/23 05/16/23 05/16/23 18:59 06:59 18:59 Intake Total 1116.069 892.000 678.556 Output Total 50 65 45 Balance 1066.069 827.000 633.556 Weight 95.9 kg Intake: IV 291 156 78 .9 kvo 105 120 10 Anidulafungin 100 mg In 100 Sodium Chloride 0.9% 100 ml @ 84 mls/hr IVPB DAILY @1300 [facility] Rx#:[id number] Arterial Pressure Bag NS 36 36 18 0.9% Ertapenem 0.5 gm In 50 50 Sodium Chloride 0.9% 50 ml @ 100 mls/hr IVPB DAILY [facility] Rx#:[id number] Intake, IV Titration 52.06 258.000 288.556 Amount Norepinephrine 8 mg In . 258.000 138.556 Sodium Chloride 0.9% 250 ml @ 0.03 MCG/KG/MIN 5. 759 mls/hr IV .Q24H [facility] Rx#:[id number] Potassium Chloride 20 meq 100 In Water For Injection 1 100ml.bag @ 50 mls/hr IVPB Q2H [facility] Rx#: [id number] Sodium Chloride 0.9% 500 50 ml 500 ml @ 10 mls/hr IV .Q24H [facility] Rx#:[id number] Tube Feeding 448 448 192 Other 325 30 120 Output: Urine 50 65 45 Other: Voiding Method Indwelling Catheter Indwelling Catheter Indwelling Catheter ABP, PAP, CO, CI - Last Documented Arterial Blood Pressure 113/43 - Exam GENERAL DESCRIPTION: An elderly Female intubated on the vent RESPIRATORY SYSTEM: Unlabored breathing , decreased breath sounds at bases HEART: S1 S2 regular rate and rhythm , ABDOMEN: Soft , no tenderness EXTREMITIES: No edema feet - Labs CBC & Chem 7: 05/17/23 05:18 05/17/23 05:18 Labs: Abnormal Lab Results - Last 24 Hours (Table) 05/15/23 05/16/23 05/16/23 Range/Units 19:58 00:33 05:00 WBC 14.0 H (3.8-10.6) k/uL RBC 2.62 L (3.80-5.40) m/uL Hgb 9.2 L (11.4-16.0) gm/dL Hct 27.4 L (34.0-46.0) % MCV 104.4 H (80.0-100.0) fL MCH 35.2 H (25.0-35.0) pg RDW 20.7 H (11.5-15.5) % Plt Count 80 L (150-450) k/uL Neutrophils # 11.7 H (1.3-7.7) k/uL Lymphocytes # 0.8 L (1.0-4.8) k/uL Macrocytosis Marked A ABG pO2 (83-108) mmHg ABG HCO3 (21-25) mmol/L ABG Total CO2 (19-24) mmol/L ABG O2 Saturation (94-97) % Potassium (3.5-5.1) mmol/L BUN (7-17) mg/dL Creatinine (0.52-1.04) mg/dL Glucose (74-99) mg/dL POC Glucose (mg/dL) 111 H 145 H (70-110) mg/dL Calcium (8.4-10.2) mg/dL Total Bilirubin (0.2-1.3) mg/dL AST (14-36) U/L Alkaline Phosphatase (38-126) U/L Total Protein (6.3-8.2) g/dL Albumin (3.5-5.0) g/dL 05/16/23 05/16/23 05/16/23 Range/Units 05:00 05:09 06:00 WBC (3.8-10.6) k/uL RBC (3.80-5.40) m/uL Hgb (11.4-16.0) gm/dL Hct (34.0-46.0) % MCV (80.0-100.0) fL MCH (25.0-35.0) pg RDW (11.5-15.5) % Plt Count (150-450) k/uL Neutrophils # (1.3-7.7) k/uL Lymphocytes # (1.0-4.8) k/uL Macrocytosis ABG pO2 373 H (83-108) mmHg ABG HCO3 27 H (21-25) mmol/L ABG Total CO2 29 H (19-24) mmol/L ABG O2 Saturation 100.0 H (94-97) % Potassium 3.3 L (3.5-5.1) mmol/L BUN 29 H (7-17) mg/dL Creatinine 1.25 H (0.52-1.04) mg/dL Glucose 125 H (74-99) mg/dL POC Glucose (mg/dL) 135 H (70-110) mg/dL Calcium 7.7 L (8.4-10.2) mg/dL Total Bilirubin 1.6 H (0.2-1.3) mg/dL AST 48 H (14-36) U/L Alkaline Phosphatase 180 H (38-126) U/L Total Protein 4.2 L (6.3-8.2) g/dL Albumin 1.7 L (3.5-5.0) g/dL 05/16/23 Range/Units 11:31 WBC (3.8-10.6) k/uL RBC (3.80-5.40) m/uL Hgb (11.4-16.0) gm/dL Hct (34.0-46.0) % MCV (80.0-100.0) fL MCH (25.0-35.0) pg RDW (11.5-15.5) % Plt Count (150-450) k/uL Neutrophils # (1.3-7.7) k/uL Lymphocytes # (1.0-4.8) k/uL Macrocytosis ABG pO2 (83-108) mmHg ABG HCO3 (21-25) mmol/L ABG Total CO2 (19-24) mmol/L ABG O2 Saturation (94-97) % Potassium (3.5-5.1) mmol/L BUN (7-17) mg/dL Creatinine (0.52-1.04) mg/dL Glucose (74-99) mg/dL POC Glucose (mg/dL) 128 H (70-110) mg/dL Calcium (8.4-10.2) mg/dL Total Bilirubin (0.2-1.3) mg/dL AST (14-36) U/L Alkaline Phosphatase (38-126) U/L Total Protein (6.3-8.2) g/dL Albumin (3.5-5.0) g/dL Assessment and Plan (1) Leukocytosis Current Visit: Yes Status: Acute Code(s): D72.829 - ELEVATED WHITE BLOOD CELL COUNT, UNSPECIFIED SNOMED Code(s): 400659948 (2) Allergy to multiple antibiotics Current Visit: Yes Status: Acute Code(s): Z88.1 - ALLERGY STATUS TO OTHER ANTIBIOTIC AGENTS SNOMED Code(s): 291393414 (3) Urinary tract infection Current Visit: No Status: Acute Code(s): N39.0 - URINARY TRACT INFECTION, SITE NOT SPECIFIED SNOMED Code(s): 46814747 Plan: 1patient with sepsis, source likely infected tooth and abscess patient has been evaluated by oral surgery and plan is status post extraction of tooth #29 and drainage of the abscess cultures are currently growing Staphylococcus hemolyticus and Sabrina 2-patient is afebrile white count is about the same as yesterday at 14,000 repeat culture has been negative so far, patient to continue with Invanz daptomycin and Eraxis antibiotic clinical course closely Prognosis remains to be guarded Dictation was produced using Transmensionation software. please excuse any grammatical, word or spelling errors. Time with Patient: Less than 30
--- NOTE | 2023-05-17 13:07 | P.PN ---
Subjective Progress Note Date: 05/17/23 Principal diagnosis: Reason for follow-up is leukocytosis and UTI Patient is a 82-year-old female with a past medical history significant for hypertension hyperlipidemia thrombocytopenia cirrhosis of the liver ID osteoarthritis patient was brought into the ER for evaluation of chest pain patient subsequently did have significant worsening of her mentation did have a positive UA concerning for possible component of UTI, with subsequent workup that shows evidence of dental abscess especially to tooth #29, patient did have extraction of tooth #29 along with drainage of the abscess completed on 05/09/2023.Patient did have dialysis catheter placement evening of 05/11/2023 subsequently patient did have a worsening respiratory status ended up getting intubated on 05/11/2023, the patient did get a dialysis catheter on 05/11/2023 and has been started on dialysis On today's visit that is05/17/2023,the patient remains to be afebrile, the patient remains to be intubated on the vent FiO2 is slightly up to 28 %, no significant purulent secretions through the ET, still requiring same amount of pressor support is undergoing dialysis plan is to wean this afternoon per the nursing staff. Patient white count is 14.2 slightly higher than yesterday creatinine is 1.15 Objective - Vital Signs Vital signs: Vital Signs Temp 97.9 F 05/17/23 12:15 Pulse 69 05/17/23 12:15 Resp 24 05/17/23 12:15 BP 111/54 05/17/23 12:15 Pulse Ox 100 05/17/23 11:00 FiO2 28 05/17/23 11:31 Intake & Output 05/16/23 05/17/23 05/17/23 18:59 06:59 18:59 Intake Total 1669.642 486.73 497 Output Total 3470 57 425 Balance -1800.358 429.73 72 Weight 95.9 kg 94.2 kg Intake: IV 196 126 65 .9 kvo 10 90 50 Anidulafungin 100 mg In 100 Sodium Chloride 0.9% 100 ml @ 84 mls/hr IVPB DAILY @1300 [facility] Rx#:[id number] Arterial Pressure Bag NS 36 36 15 0.9% Ertapenem 0.5 gm In 50 Sodium Chloride 0.9% 50 ml @ 100 mls/hr IVPB DAILY [facility] Rx#:[id number] Intake, IV Titration 417.642 42.73 Amount Norepinephrine 8 mg In 217.642 32.73 Sodium Chloride 0.9% 250 ml @ 0.03 MCG/KG/MIN 5. 759 mls/hr IV .Q24H [facility] Rx#:[id number] Potassium Chloride 20 meq 100 In Water For Injection 1 100ml.bag @ 50 mls/hr IVPB Q2H [facility] Rx#: [id number] Sodium Chloride 0.9% 500 100 10 ml 500 ml @ 10 mls/hr IV .Q24H [facility] Rx#:[id number] Tube Feeding 416 288 32 Hemodialysis 400 400 Other 240 30 Output: Urine 70 57 25 Urine/Stool Mix 400 Hemodialysis 3400 Other: Voiding Method Indwelling Catheter Indwelling Catheter Indwelling Catheter ABP, PAP, CO, CI - Last Documented Arterial Blood Pressure 91/44 - Exam GENERAL DESCRIPTION: An elderly Female intubated on the vent RESPIRATORY SYSTEM: Unlabored breathing , decreased breath sounds at bases HEART: S1 S2 regular rate and rhythm , ABDOMEN: Soft , no tenderness EXTREMITIES: No edema feet - Labs CBC & Chem 7: 05/17/23 05:18 05/17/23 05:18 Labs: Abnormal Lab Results - Last 24 Hours (Table) 05/16/23 05/17/23 05/17/23 Range/Units 17:52 00:46 05:18 WBC 14.8 H (3.8-10.6) k/uL RBC 2.75 L (3.80-5.40) m/uL Hgb 9.2 L (11.4-16.0) gm/dL Hct 28.9 L (34.0-46.0) % MCV 105.2 H (80.0-100.0) fL RDW 20.4 H (11.5-15.5) % Plt Count 77 L (150-450) k/uL Neutrophils # 12.5 H (1.3-7.7) k/uL Lymphocytes # 0.7 L (1.0-4.8) k/uL Macrocytosis Marked A ABG HCO3 (21-25) mmol/L ABG Total CO2 (19-24) mmol/L ABG O2 Saturation (94-97) % Sodium (137-145) mmol/L BUN (7-17) mg/dL Creatinine (0.52-1.04) mg/dL Glucose (74-99) mg/dL POC Glucose (mg/dL) 127 H 143 H (70-110) mg/dL Calcium (8.4-10.2) mg/dL Total Bilirubin (0.2-1.3) mg/dL AST (14-36) U/L Alkaline Phosphatase (38-126) U/L Total Protein (6.3-8.2) g/dL Albumin (3.5-5.0) g/dL 05/17/23 05/17/23 05/17/23 Range/Units 05:18 06:16 06:47 WBC (3.8-10.6) k/uL RBC (3.80-5.40) m/uL Hgb (11.4-16.0) gm/dL Hct (34.0-46.0) % MCV (80.0-100.0) fL RDW (11.5-15.5) % Plt Count (150-450) k/uL Neutrophils # (1.3-7.7) k/uL Lymphocytes # (1.0-4.8) k/uL Macrocytosis ABG HCO3 29 H (21-25) mmol/L ABG Total CO2 30 H (19-24) mmol/L ABG O2 Saturation 98.0 H (94-97) % Sodium 133 L (137-145) mmol/L BUN 28 H (7-17) mg/dL Creatinine 1.15 H (0.52-1.04) mg/dL Glucose 124 H (74-99) mg/dL POC Glucose (mg/dL) 114 H (70-110) mg/dL Calcium 7.9 L (8.4-10.2) mg/dL Total Bilirubin 1.6 H (0.2-1.3) mg/dL AST 71 H (14-36) U/L Alkaline Phosphatase 171 H (38-126) U/L Total Protein 4.4 L (6.3-8.2) g/dL Albumin 1.7 L (3.5-5.0) g/dL 05/17/23 Range/Units 11:39 WBC (3.8-10.6) k/uL RBC (3.80-5.40) m/uL Hgb (11.4-16.0) gm/dL Hct (34.0-46.0) % MCV (80.0-100.0) fL RDW (11.5-15.5) % Plt Count (150-450) k/uL Neutrophils # (1.3-7.7) k/uL Lymphocytes # (1.0-4.8) k/uL Macrocytosis ABG HCO3 (21-25) mmol/L ABG Total CO2 (19-24) mmol/L ABG O2 Saturation (94-97) % Sodium (137-145) mmol/L BUN (7-17) mg/dL Creatinine (0.52-1.04) mg/dL Glucose (74-99) mg/dL POC Glucose (mg/dL) 125 H (70-110) mg/dL Calcium (8.4-10.2) mg/dL Total Bilirubin (0.2-1.3) mg/dL AST (14-36) U/L Alkaline Phosphatase (38-126) U/L Total Protein (6.3-8.2) g/dL Albumin (3.5-5.0) g/dL Microbiology - Last 24 Hours (Table) 05/11/23 08:56 Blood Culture - Final Blood Assessment and Plan (1) Leukocytosis Current Visit: Yes Status: Acute Code(s): D72.829 - ELEVATED WHITE BLOOD CELL COUNT, UNSPECIFIED SNOMED Code(s): 283338527 (2) Allergy to multiple antibiotics Current Visit: Yes Status: Acute Code(s): Z88.1 - ALLERGY STATUS TO OTHER ANTIBIOTIC AGENTS SNOMED Code(s): 332241256 (3) Urinary tract infection Current Visit: No Status: Acute Code(s): N39.0 - URINARY TRACT INFECTION, SITE NOT SPECIFIED SNOMED Code(s): 42392339 Plan: 1patient with sepsis, source likely infected tooth and abscess patient has been evaluated by oral surgery and plan is status post extraction of tooth #29 and drainage of the abscess cultures are currently growing Staphylococcus hemolyticus and Sabrina 2-patient is afebrile, slight worsening of the white count 14.8 however repeat culture remains to be negative for resistant pathogen 3- patient to continue with Invanz daptomycin and Eraxis antibiotic clinical course closely Dictation was produced using [employer] dictation software. please excuse any grammatical, word or spelling errors. Time with Patient: Less than 30
--- NOTE | 2023-05-17 13:29 | P.PN ---
Subjective Progress Note Date: 05/17/23 Principal diagnosis: Acute on chronic hypoxic and hypercapnic respiratory failure secondary to pulmonary edema/fluid overload and bilateral pleural effusion This is an 82-year-old female patient with a history of liver cirrhosis, pancytopenia, coronary artery disease with previous stent placement, compression fracture of T7 and T8, acute left posterior eighth rib fracture, thyroid mass, new onset atrial fibrillation and non-ST segment elevation myocardial infarction. She had been admitted back on 04/29/2023 with chest pain and shortness of breath. Echocardiogram revealed impaired left ventricular systolic function with ejection fraction 45%. She was being cared for on the selective care unit. Last evening at a approximately 1145 and rapid response team was called due to hypotension with blood pressure 70 over 40s. She received 100 mL of fluid resuscitation and was transferred to the intensive care unit and initiated on norepinephrine. She is seen today in consultation. She is lethargic. Minimally responsive. She had been calling out in pain earlier. When she was repositioned she settled down. This is felt to be secondary to her compression fractures and rib fractures. He does have a stage II decubitus ulcer. She also has severe suspected neuropathy of the bilateral lower extremities. She is maintaining good O2 saturation in the mid 90s on 2 L/min per nasal cannula. 0.08 mcg/kg/min. She has normal staying at 80 MLS per hour. White count 11.9. Platelets 55,000. Sodium 130. Potassium 4.9. Bicarb 33. BUN 74. Creatinine 2.78. Glucose 137. Urine culture reveals no growth. Currently on ertapenem. X-ray reveals cardiomegaly with mild central vascular congestion and interstitial opacities suggesting edema. Small to moderate bibasilar pleural effusions with adjacent atelectasis. On today's evaluation of 05/09/2023, the patient is being seen for a follow-up. As mentioned, the patient was transferred to the intensive care unit yesterday because of hypotension. She has multiple medical problems including coronary artery disease and previous coronary intervention and stenting and the patient also has liver cirrhosis, and she did encounter a new onset atrial fibrillation. At the same time, the patient is suspected to be septic. The patient has been treated with IV fluids. The patient continues to be on pressors and the patient is currently on norepinephrine running 0.14 mcg/kg/min. IV fluids are running in the rate of 50 cc an hour of normal saline. The patient is currently on IV Invanz. The white cell count today is 11.1. Hemoglobin is at 11 and a platelet count is at 55. Note that the patient has chronic thrombocytopenia related to her chronic liver disease. She also had an acute kidney injury and the cre atinine peaked at 3 and currently is downtrending down to 2.65. Potassium level today is at 5.8 with a sodium level of 132. LFTs are abnormal with an alkaline phosphatase of 314, AST of 51 and ALT of 21. Her procalcitonin level was at 2.53 and her free T4 was 1.36 with a TSH of 5.9. UA was abnormal suspicious for an underlying urinary tract infection and cultures are still pending for now. Meanwhile, the CAT scan of the abdomen and pelvis that was obtained on 05/04/2023 showed no evidence of any acute intra-abdominal process. Nodular contour of the liver was suggestive of liver cirrhosis and the patient had signs of portal hypertension and cardiomegaly and pulm vascular congestion. The CAT scan of the face that was done on 05/04/2023 showed a soft tissue masslike area in the inferior left neck measuring 47 x 36 mm in size and inflammatory changes along the right mandible without an organizing collection. A head and neck abscess cannot be completely ruled out at this point in time. Neurologically, the patient is encephalopathic. She has episodes of crying and yelling and she r emains altered. Her the serum ammonia level was 17. The patient remains on lactulose which is unfortunately being given through the rectal source which is causing significant amount of contamination. At the same time, cardiac rhythm is currently controlled and she remains in atrial fibrillation. She remains on amiodarone 200 mg p.o. twice a day. The Toprol has been placed on hold based on her underlying hypotension. Her echocardiogram from 04/30/2023 showed a ejection fraction of 45%, mild RV dilatation, mild mitral regurgitation, no other significant abnormalities noted. On today's evaluation of 05/10/2023, the patient is being seen for a follow-up. The patient is in the intensive care unit for sepsis and hypotension. Note that the patient underwent an evaluation by the oral surgeon yesterday and the patient was found to have a dental abscess tooth #[id number] and surgical extraction of the tooth was done and cultures were sent. At the same time, we are suspecting an underlying urine tract infection as another source of sepsis the patient and the patient is currently on IV Invanz as the patient has had previous ESBL producing E. coli in her urine based on the culture that was obtained on 04/26/2023. The patient remains on pressors. She is on norepinephrine running at 0.15 mcg/kg/min. IV fluids are in the form of D5.9 at the rate of 50 cc an hour. Urine output is in order of 30 cc an hour and there is also interval improvement of creatinine which is down to 2.4 with a BUN of 78. Sodium levels at 133 with a potassium level of 5.2. The white cell count is at 10.2 with a hemoglobin of 10.4 and a platelet count of 85. Note that the patient has chronic thrombocytopenia related to her chronic liver disease. She is arousable. She is awake. She is on oxygen at 2 L with a pulse ox of 96%. On 05/11/2023, the patient is more lethargic compared to yesterday. There has been progressive worsening in her mentation and this has been noted throughout the day. In the morning, she was still arousable and later on during the day, the patient became quite obtunded. Based on that, the patient was given a stat CAT scan of the brain that showed no acute intracranial abnormalities. The patient's CAT scan of the brain showed Moderate bifrontal atrophy and old lacunar infarct in the left basal ganglia. There was also slightly heterogeneous appearance of the brainstem felt to be related to a prominent skull base artifact. Subsequently, the patient was given a blood gas that showed a pH of 7.11 with a pCO2 of 93 and pO2 117 and the patient's mental status is most like related to hypercapnic respiratory failure and CO2 narcosis. Chest x-ray that was done earlier this morning that showed cardiomegaly and pulm vascular congestion but the pleural fluid. Fluid balance has been +1 L over the past 24 hours and the patient has been persistently in a positive fluid balance and the patient has diffuse anasarca related to her liver failure and sepsis. The BUN is at 72 with a creatinine of 2.4 and sodium is at 136. WBC count is at 8.2 with a hemoglobin 9.8 and a platelet count of 76. She remains hypotensive. She remains on pressors and the patient is currently on norepinephrine running at 0.09 mcg/kg/min. Her pressor requirements are slightly improved compared to yesterday. She remains on D5 normal saline today stopped 50 cc an hour.. In terms of her cultures, the patient's oral culture is showing some anaerobic growth. She also has Sabrina albicans. Blood cultures were negative. Urine cultures also been negative. The patient remains on IV antibiotics and antibiotics has been modified to a combination of IV Eraxis, daptomycin and IV Invanz. on today's evaluation of 05/12/2023, I am seeing the patient for a follow-up. Events from yesterday were noted. The patient went into hypercapnic respiratory failure and she became altered and obtunded and based on that, and that intubating the patient and placed on mechanical ventilator for acute on chronic hypoxic and hypercapnic respiratory failure. Also, the patient was in significant fluid overload. Immediately postintubation, dialysis catheter was obtained and the patient was started on hemodialysis with ultrafiltration and a total of 2 L of fluid was removed yesterday. This morning, the patient remains intubated on the mechanical ventilator. She is currently on propofol running at 40 mcg/kg/min. She is on assist-control with rate of 26 with a tidal volume of 400 FiO2 40% with a PEEP of 5. Blood gas from this morning showed respiratory alkalosis with a pH of 7.58 and a pCO2 of 29 and pO2 of 77. Based on that, the respiratory rate was dropped down to 77. Chest x-ray from today showing cardiomegaly. There is bilateral pleural effusion worse on the right which is slightly improved compared to yesterday. ET tube is in a good location and the patient also has a triple-lumen catheter in her left IJ and a dialysis catheter in her right IJ. She is still hypotensive. Norepinephrine is running at 0.16 mcg/kg/min. The patient is also on physiologic dose of vasopressin A arterial line catheter was also inserted yesterday and her blood pressure is stable for now with a mean arterial pressure of around 80. Her cardiac rhythm is atrial fibrillation. In terms of the rest of the blood work, the patient has a white cell count of 12.2 with a hemoglobin 9.8 and a platelet count of 103. BUN is at 56 and the creatinine is up down to 1.7. Potassium is down to 4.5 and his sodium level is at 135. Her serum ammonia level is at 23. She continues to have significant amount of third spacing, peripheral edema and diffuse anasarca. In terms of her antibiotic coverage, the patient is currently on a combination of IV Invanz, daptomycin and Eraxis. Enteral feeding has not been started yet. On today's evaluation of 05/13/2023, the patient is being seen for a follow-up. The patient remains intubated on the mechanical ventilator. On today's evaluation, the patient is on propofol which is running at 40 mcg/kg/min. The patient is calm and comfortable and the patient is essentially centralized on the mechanical ventilator. On today's evaluation, the patient is on assist- control mode of mechanical ventilation and she is on a rate of 20, tidal volume of 400, FiO2 at 40% with a PEEP of 5. The chest x-ray is showing cardiomegaly and bilateral pleural effusions slightly improved and the ET tube is in a good location. The blood gas show a pH of 7.50 with a pCO2 of 35 and a pO2 of 118 and this was on FiO2 of 40%. No significant orotracheal secretions. The patient hemodynamically is still pressor dependent. She is currently on norepinephrine running at 0.2 mcg/kg/min and her norepinephrine dose is being titrated as the patient is undergoing hemodialysis and she is having variation and fluctuations in blood pressure. She is also on physiologic dose of vasopressin. No other hemodialysis was performed yesterday with a total of 2 point liters of ultrafiltration. Another session of hemodialysis being done today. The patient remains on Lasix 60 mg IV push every 12 hours. The fluid balance over the past 24 hours has been negative as the patient is making some urine output in the same time the patient is being dialyzed and ultrafiltrate it. Antibiotic coverage includes a combination of Invanz, Eraxis and daptomycin. Note that the patient had blood culture sent and the results are still pending for now. The cultures from the mouth and the right mandible were positive for staph hemolyticus and Sabrina albicans. The patient at the same ti me is in atrial fibrillation. The patient is on vital high-protein at the rate of 32 cc an hour and the patient seems to be tolerating her enteral feeding without any major difficulties. WBC count 11.7 with a hemoglobin 9.7 and a platelet count of 111. Sodium is at 132 with a potassium level of 3.7, BUN is 44 with a creatinine of 1.5 and a glucose of 154. LFTs are showing some mild elevation of the alkaline phosphatase at 218 and a total of 10 protein is at 4.5 with an albumin of 1.9. On 05/14/2023, the patient is being seen for a follow-up. Remains intubated on the mechanical ventilator. Sedation was discontinued yesterday and she has been off sedation for approximately 12 hours. She is sluggishly responsive to painful stimulation. Unable to communicate. Profoundly lethargic and sleepy. Most recent ammonia level was 2424 from yesterday. The patient remains on lactulose 30 g once a day and we are monitoring bowel movement activity on this patient. As mentioned earlier, the patient has liver cirrhosis, massive fluid overload, renal failure, respiratory failure requiring intubation mechanical ventilation and the patient is undergoing daily dialysis with ultrafiltration. Dialysis was done yesterday and approximately 2 L of fluid was removed. The goal for today is around 3 L. She continues to have diffuse anasarca, extensive edema in all 4 extremities, and the chest x-ray still showing bilateral pleural effusion which is essentially unchanged. While on the mechanical ventilator, she is on assist-control mode with rate of 14, tidal volume of 400, FiO2 40% with a PEEP of 5. Blood gas shows a pH of 7.58 with a pCO2 of 29 and pO2 of 77 and this was an FiO2 of 40%. Rest of the blood work and electrolytes show a sodium level of 135, potassium level is at 4.5, BUN is at 56 with a creatinine of 1.7. Potassium level is at 4.5. LFTs are normal with mild elevation of alkaline phosphatase at 240. Serum albumin is at 1.9 with a total protein of 4.4. She is afebrile. She remains on a combination of antibiotics. She is on IV Invanz, Eraxis and daptomycin. Hemodynamically, she is still requiring pressors and the patient is currently on norepinephrine at 0.15 mcg/kg/min. IV fluids are currently at KVO. Enteral feeding for nutritional support is being provided and the patient is currently on vital high-protein at a rate of 32 cc an hour. She is afebrile for now. No other significant events overnight. 05/15/2023, the patient is being seen for a follow-up. The patient is undergoing daily hemodialysis. Yesterday she underwent hemodialysis ultrafiltration with 2 L of fluid removed and the same was done earlier this morning prior to my arrival. This morning, the patient is still off the propofol. She is grimacing to painful stimulation. However, she is still significantly encephalopathic and obtunded. Note that she has also history of liver cirrhosis and she has a component of hepatic encephalopathy, and metabolic encephalopathy. Postintub ation, drugs were provided in the form of propofol which may be also contributing to her diminished level of consciousness. In terms of her acid- base balance, her pCO2 has improved and she remains on mechanical ventilator and the most recent vent setting including assist-control of 14, tidal volume of 350, FiO2 of 30% with a PEEP of 5. pH is 7.39 with a pCO2 of 46 and pO2 of 105. Repeat chest x-ray from today shows improvement in volume status. There is diminution of the bilateral pleural effusions. She continues to have significant fluid overload with third spacing and edema in all 4 extremities. Hemodynamically, the patient is still on norepinephrine which has been weaned down to 0.09 mcg/kg/min. Her white cell count is at 9.9. She is afebrile. Hemoglobin is at 9.9 and a white cell count is at 14.4. Platelet count is at 91. Rest of blood work shows a BUN of 20, creatinine of 0.8, sodium levels at 137 and a potassium level of 3.1. The patient remains essentially on the same antibiotic coverage and she is on a combination of daptomycin, IV Invanz and Eraxis. In terms of enteral feeding, she remains on vital HP at a rate of 32 cc an hour which is at goal. In terms of bowel movement activity, the patient remains on lactulose for hepatic encephalopathy. The most recent ammonia level is currently at 24 Patient was reevaluated today on 05/16/2023, martha in the ICU, intubated and mechanically ventilated, on hemodialysis. Patient is on assist-control rate of 14 tidal volume 350 FiO2 30% and PEEP of 5. Patient is not sedated has been off propofol since 05/12, she is requiring a small dose of norepinephrine at 0.06 mcg/kg/min, ABG showed a pO2 of 373 pCO2 45 pH of 7.40 patient is now on 50% FiO2. Patient remains on daptomycin, Eraxis, and Invanz, chest x-ray showed endotracheal tube to tube to be far down in the carinal area, and this needs to be pulled up about 2 cm patient is developing drop in her platelets, remains on subcu heparin, and will continue to monitor the platelets. Chest x-ray continues to show small bilateral pleural effusions, patient will not require thoracentesis at this point since she is receiving hemodialysis/ultrafiltration. WBC count is 14 hemoglobin 9.2. Basic metabolic profile is normal except for potassium of 3.3 BUN of 29 creatinine 1.25. Her blood cultures have been negative however cultures from the right mandible/wound cultures grew positive for Staphylococcus hemolyticus, antibiotics as noted earlier. Including da ptomycin, Eraxis, and Invanz Patient was reevaluated today at 05/17/2023, remains in the ICU, intubated and mechanically ventilated, patient is on assist-control rate 14 tidal volume 350 FiO2 28%, and PEEP of 5 ABG showed a pO2 of 88 pCO2 45 pH of 7.41, and is requiring a tiny dose of norepinephrine at 0.03 mcg/kg/min, she is also receiving vital HP at 32 cc/h. Antibiotics hernandez remains on Eraxis daptomycin and Invanz. Patient is receiving Lasix at 60 mg IV push every 12 hours. Patient is intermittently getting hemodialysis/ultrafiltration, patient has hardly any urine output, patient had a total ultrafiltration of 16.5 L over the last 1 week chest x-ray continues to show mild pulmonary edema, and the patient continues to have bipedal edema. WBC count today is 14.8 hemoglobin is 9.2. A BG as noted above, basic metabolic profile is normal BUN is 28 creatinine 1.15 Objective - Vital Signs Vital signs: Vital Signs Temp 97.9 F 05/17/23 12:15 Pulse 69 05/17/23 12:15 Resp 24 05/17/23 12:15 BP 111/54 05/17/23 12:15 Pulse Ox 100 05/17/23 11:00 FiO2 28 05/17/23 11:31 Intake & Output 05/16/23 05/17/23 05/17/23 18:59 06:59 18:59 Intake Total 1669.642 486.73 497 Output Total 3470 57 425 Balance -1800.358 429.73 72 Weight 95.9 kg 94.2 kg Intake: IV 196 126 65 .9 kvo 10 90 50 Anidulafungin 100 mg In 100 Sodium Chloride 0.9% 100 ml @ 84 mls/hr IVPB DAILY @1300 [facility] Rx#:[id number] Arterial Pressure Bag NS 36 36 15 0.9% Ertapenem 0.5 gm In 50 Sodium Chloride 0.9% 50 ml @ 100 mls/hr IVPB DAILY [facility] Rx#:[id number] Intake, IV Titration 417.642 42.73 Amount Norepinephrine 8 mg In 217.642 32.73 Sodium Chloride 0.9% 250 ml @ 0.03 MCG/KG/MIN 5. 759 mls/hr IV .Q24H [facility] Rx#:[id number] Potassium Chloride 20 meq 100 In Water For Injection 1 100ml.bag @ 50 mls/hr IVPB Q2H [facility] Rx#: [id number] Sodium Chloride 0.9% 500 100 10 ml 500 ml @ 10 mls/hr IV .Q24H [facility] Rx#:[id number] Tube Feeding 416 288 32 Hemodialysis 400 400 Other 240 30 Output: Urine 70 57 25 Urine/Stool Mix 400 Hemodialysis 3400 Other: Voiding Method Indwelling Catheter Indwelling Catheter Indwelling Catheter ABP, PAP, CO, CI - Last Documented Arterial Blood Pressure 91/44 - Exam GENERAL EXAM:, Revealed 82-year-old female, arousable, opens her eyes, following simple instructions like squeezing hands and wiggling toes and closing eyes HEAD: Normocephalic. EYES: Normal reaction of pupils, equal size. NOSE: Clear with pink turbinates. THROAT: No erythema or exudates. Unable to feel any collection in her mandibular area or neck area to suggest any abscess or masses. She does have however very poor dental condition with multiple decayed teeth and several teeth are missing. The incisors in the lower mandible are rotten and broken and decayed and the gum is pale with occasional areas of patchy redness. NECK: No masses, no JVD. The patient has a left IJ triple-lumen catheter in the right IJ dialysis catheter. CHEST: No chest wall deformity. LUNGS: Equal air entry with bibasilar crackles. CVS: S1 and S2 normal with no audible murmur, regular rhythm. ABDOMEN: Soft nontender no megaly no rebound no guarding. SKIN: Stage II coccyx ulcer CENTRAL NERVOUS SYSTEM: Opens eyes, following simple instructions today EXTREMITIES: There is 2+ peripheral edema. No clubbing, no cyanosis. Peripheral pulses are intact. - Labs CBC & Chem 7: 05/17/23 05:18 05/17/23 05:18 Labs: Abnormal Lab Results - Last 24 Hours (Table) 05/16/23 05/17/23 05/17/23 Range/Units 17:52 00:46 05:18 WBC 14.8 H (3.8-10.6) k/uL RBC 2.75 L (3.80-5.40) m/uL Hgb 9.2 L (11.4-16.0) gm/dL Hct 28.9 L (34.0-46.0) % MCV 105.2 H (80.0-100.0) fL RDW 20.4 H (11.5-15.5) % Plt Count 77 L (150-450) k/uL Neutrophils # 12.5 H (1.3-7.7) k/uL Lymphocytes # 0.7 L (1.0-4.8) k/uL Macrocytosis Marked A ABG HCO3 (21-25) mmol/L ABG Total CO2 (19-24) mmol/L ABG O2 Saturation (94-97) % Sodium (137-145) mmol/L BUN (7-17) mg/dL Creatinine (0.52-1.04) mg/dL Glucose (74-99) mg/dL POC Glucose (mg/dL) 127 H 143 H (70-110) mg/dL Calcium (8.4-10.2) mg/dL Total Bilirubin (0.2-1.3) mg/dL AST (14-36) U/L Alkaline Phosphatase (38-126) U/L Total Protein (6.3-8.2) g/dL Albumin (3.5-5.0) g/dL 05/17/23 05/17/23 05/17/23 Range/Units 05:18 06:16 06:47 WBC (3.8-10.6) k/uL RBC (3.80-5.40) m/uL Hgb (11.4-16.0) gm/dL Hct (34.0-46.0) % MCV (80.0-100.0) fL RDW (11.5-15.5) % Plt Count (150-450) k/uL Neutrophils # (1.3-7.7) k/uL Lymphocytes # (1.0-4.8) k/uL Macrocytosis ABG HCO3 29 H (21-25) mmol/L ABG Total CO2 30 H (19-24) mmol/L ABG O2 Saturation 98.0 H (94-97) % Sodium 133 L (137-145) mmol/L BUN 28 H (7-17) mg/dL Creatinine 1.15 H (0.52-1.04) mg/dL Glucose 124 H (74-99) mg/dL POC Glucose (mg/dL) 114 H (70-110) mg/dL Calcium 7.9 L (8.4-10.2) mg/dL Total Bilirubin 1.6 H (0.2-1.3) mg/dL AST 71 H (14-36) U/L Alkaline Phosphatase 171 H (38-126) U/L Total Protein 4.4 L (6.3-8.2) g/dL Albumin 1.7 L (3.5-5.0) g/dL 05/17/23 Range/Units 11:39 WBC (3.8-10.6) k/uL RBC (3.80-5.40) m/uL Hgb (11.4-16.0) gm/dL Hct (34.0-46.0) % MCV (80.0-100.0) fL RDW (11.5-15.5) % Plt Count (150-450) k/uL Neutrophils # (1.3-7.7) k/uL Lymphocytes # (1.0-4.8) k/uL Macrocytosis ABG HCO3 (21-25) mmol/L ABG Total CO2 (19-24) mmol/L ABG O2 Saturation (94-97) % Sodium (137-145) mmol/L BUN (7-17) mg/dL Creatinine (0.52-1.04) mg/dL Glucose (74-99) mg/dL POC Glucose (mg/dL) 125 H (70-110) mg/dL Calcium (8.4-10.2) mg/dL Total Bilirubin (0.2-1.3) mg/dL AST (14-36) U/L Alkaline Phosphatase (38-126) U/L Total Protein (6.3-8.2) g/dL Albumin (3.5-5.0) g/dL Microbiology - Last 24 Hours (Table) 05/11/23 08:56 Blood Culture - Final Blood Assessment and Plan Assessment: Impression: Acute on chronic hypoxic and hypercapnic respiratory failure, secondary to pulmonary edema and fluid overload with renal failure requiring hemodialysis and ultrafiltration. Acute metabolic encephalopathy Sepsis and septic shock with bacteremia secondary to mandibular abscess. And recent tooth extraction Bilateral pleural effusion right more than left, improving on today's chest x- ray Acute kidney injury secondary to above, requiring hemodialysis. Acute hyperkalemia, improved compression fractures of T7 and T8 and acute left posterior eighth rib fracture Neuropathy Stage II decubitus ulcer History of liver cirrhosis Pancytopenia Non-ST segment elevation myocardial infarction New onset atrial fibrillation with controlled ventricular response, rate controlled for now. 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 Recommendation: Continue ventilatory support, however the patient will be given pressure support and CPAP trials, will utilize pressure support of 8 Continue hemodynamic support Continue Lasix 60 mg IV push twice daily Continue midodrine Continue nutritional support/enteral feeding Continue antibiotics as per ID on the case Continue hemodialysis/ultrafiltration Continue to monitor strictly I's and O's, and weights Continue GI and DVT prophylaxis monitor platelets closely Continue lactulose 30 g p.o. daily Patient remains critically ill Not quite ready for extubation, nonetheless I will give the patient trials of pr essure support and CPAP Will continue to follow critical care time is over 30 minutes Time with Patient: Greater than 30
[2023-05-17 18:14] LABS: Glucose,Whole Blood 123 mg/dL (70-110)
--- NOTE | 2023-05-17 20:54 | P.PN ---
Progress Note - Text Progress Note Date: 05/17/23 S: 82-year-old female has been inpatient since April 30 and is steadily decline since. Oral surgery consulted May 08 rule out dental abscess the patient's tooth was removed and abscess drained on May 09. Since then the patient's oral abscess has resolved but her clinical picture continues to decline. Currently the patient is intubated with mechanical ventilation. Hemodialysis with minimal kidney function. Mental status difficult to obtain. O: ET tube stable and secure. Patient now responds during intraoral exam and coughs with the ET tube being moved. No vestibular swelling or redness noted extraction site is healing well no pus or discharge. A: Oral abscess has resolved. P: Patient's clinical picture continues to decline despite complete resolution of oral abscess. Continue oral care per respiratory protocol. Oral surgery care no longer required. Please reconsult if dental needs should arise. Note made with Dragon dictation please excuse any spell years.
[2023-05-18 00:02] LABS: Glucose,Whole Blood 125 mg/dL (70-110)
[2023-05-18 05:48] LABS: ABG Base Excess 4.7 mmol/L; ABG HCO3 29 mmol/L (21-25); ABG Oxygen Saturation 98.1 % (94-97); ABG PCO2 44 mmHg (35-45); ABG PH 7.43 (7.35-7.45); ABG PO2 95 mmHg (83-108); ABG TCO2 30 mmol/L (19-24); Allen Test Performed? Yes
[2023-05-18 05:55] LABS: Anisocytosis Moderate; Basophils # (A) 0.1 k/uL (0-0.2); Basophils % (A) 1 %; Eosinophils # (A) 0.3 k/uL (0-0.7); Eosinophils % (A) 2 %; HCT 31.8 % (34.0-46.0); HGB 10.4 gm/dL (11.4-16.0); Hypochromasia Moderate; Lymphocytes # (A) 0.8 k/uL (1.0-4.8); Lymphocytes % (A) 5 %; MCH 34.3 pg (25.0-35.0); MCHC 32.7 g/dL (31.0-37.0); Macrocytosis Marked; Mean Platelet Volume 9.8; Monocytes # (A) 1.4 k/uL (0-1.0); Monocytes % (A) 8 %; Neutrophils # (A) 14.8 k/uL (1.3-7.7); Neutrophils % (A) 82 %; Platelet Count 108 k/uL (150-450); Poikilocytosis Moderate; RBC 3.03 m/uL (3.80-5.40); RDW 20.3 % (11.5-15.5)
[2023-05-18 06:05] LABS: MCV 105.1 fL (80.0-100.0)
[2023-05-18 06:10] LABS: ALT 24 U/L (4-34); AST 56 U/L (14-36); African American GFR (CKD) 50 (>60 ml/min/1.73 sqM); Albumin 1.9 g/dL (3.5-5.0); Alkaline Phosphatase 198 U/L (38-126); Anion Gap 3 mmol/L; Blood Urea Nitrogen 24 mg/dL (7-17); Calcium 7.7 mg/dL (8.4-10.2); Carbon Dioxide 26 mmol/L (22-30); Chloride 104 mmol/L (98-107); Glucose 126 mg/dL (74-99); Non-African American GFR(CKD) 44 (>60 ml/min/1.73 sqM); Sodium 133 mmol/L (137-145); Total Bilirubin 1.7 mg/dL (0.2-1.3); Total Protein 4.8 g/dL (6.3-8.2)
[2023-05-18 06:29] LABS: Glucose,Whole Blood 135 mg/dL (70-110)
[2023-05-18] MEDS: LACTULOSE 20 GM/30 ML CUP PO SCH (08:28)
--- NOTE | 2023-05-18 10:20 | XR ---
EXAMINATION TYPE: XR chest 1V portable DATE OF EXAM: 05/18/2023 Comparison: 05/17/2023 Clinical History: 82-year-old female mechanical ventilation Findings: ET tube tip 1.4 cm from the lizzie. Pull back 1.5 cm in recess of follow-up. NG tube courses below th e diaphragm. Left IJ CVC tip at the upper right atrium. Right-sided CVC tip at the upper right atrium . Heart mildly enlarged. Underlying focal bibasilar opacities and interstitial prominence. Impression: 1. ET tube tip 1.4 cm from the lizzie. Pull back 1.5 cm and reassess at follow-up. 2. [id number] bilateral pleural effusions with adjacent atelectasis and/or consolidation, leigh lar to slightly worsened.
[2023-05-18 12:02] LABS: Glucose,Whole Blood 125 mg/dL (70-110)
--- NOTE | 2023-05-18 12:30 | P.PN ---
Subjective Patient is seen for follow-up for acute kidney injury. Started hemodialysis on May 11, 2023 for severe volume overload and poor urine output. Patient is currently on the vent. FiO2 at 25%. Patient just finished dialysis. UF of 3 L. Levo fed had been increased during treatment. UF off 19.5 L over the last 1 week Objective - Vital Signs Vital signs: Vital Signs Temp 98.3 F 05/18/23 11:53 Pulse 89 05/18/23 11:53 Resp 26 H 05/18/23 11:53 BP 143/65 05/18/23 11:53 Pulse Ox 100 05/18/23 10:45 FiO2 28 05/18/23 08:29 Intake & Output 05/17/23 05/18/23 05/18/23 18:59 06:59 18:59 Intake Total 980.744 731.097 731.102 Output Total 432 52 2273 Balance 145.744 721.097 -2668.898 Weight 94.2 kg 92.2 kg Intake: IV 369 143 52 .9 kvo 130 110 40 Anidulafungin 100 mg In 100 Sodium Chloride 0.9% 100 ml @ 84 mls/hr IVPB DAILY @1300 RONI Rx#:[id number] Arterial Pressure Bag NS 39 33 12 0.9% DAPTOmycin 400 mg In 50 Sodium Chloride 0.9% 50 ml @ 100 mls/hr IVPB Q48H RONI Rx#:[id number] Ertapenem 0.5 gm In 50 Sodium Chloride 0.9% 50 ml @ 100 mls/hr IVPB DAILY RONI Rx#:[id number] Intake, IV Titration 89.744 93.097 69.102 Amount Norepinephrine 8 mg In 89.744 93.097 69.102 Sodium Chloride 0.9% 250 ml @ 0.03 MCG/KG/MIN 5. 759 mls/hr IV .Q24H RONI Rx#:[id number] Tube Feeding 122 495 180 Hemodialysis 400 400 Other 30 Output: Urine 35 10 0 Stool 400 Urine/Stool Mix 400 Hemodialysis 3400 Other: Voiding Method Indwelling Catheter Indwelling Catheter Indwelling Catheter ABP, PAP, CO, CI - Last Documented Arterial Blood Pressure 130/51 - Exam Patient is on the vent Opens eyes to verbal stimuli Examination of the heart S1 and S2 Examination of the lungs shows bilateral breath sounds are heard Abdomen is soft, distended with significant edema noted Examination of lower extremities shows 3-4+ edema - Labs CBC & Chem 7: 05/18/23 05:42 05/18/23 05:42 Labs: Abnormal Lab Results - Last 24 Hours (Table) 05/17/23 05/18/23 05/18/23 Range/Units 18:12 00:01 05:42 WBC 18.0 H (3.8-10.6) k/uL RBC 3.03 L (3.80-5.40) m/uL Hgb 10.4 L (11.4-16.0) gm/dL Hct 31.8 L (34.0-46.0) % MCV 105.1 H (80.0-100.0) fL RDW 20.3 H (11.5-15.5) % Plt Count 108 L (150-450) k/uL Neutrophils # 14.8 H (1.3-7.7) k/uL Lymphocytes # 0.8 L (1.0-4.8) k/uL Monocytes # 1.4 H (0-1.0) k/uL Macrocytosis Marked A ABG HCO3 (21-25) mmol/L ABG Total CO2 (19-24) mmol/L ABG O2 Saturation (94-97) % Sodium (137-145) mmol/L BUN (7-17) mg/dL Creatinine (0.52-1.04) mg/dL Glucose (74-99) mg/dL POC Glucose (mg/dL) 123 H 125 H (70-110) mg/dL Calcium (8.4-10.2) mg/dL Total Bilirubin (0.2-1.3) mg/dL AST (14-36) U/L Alkaline Phosphatase (38-126) U/L Total Protein (6.3-8.2) g/dL Albumin (3.5-5.0) g/dL 05/18/23 05/18/23 05/18/23 Range/Units 05:42 05:44 06:28 WBC (3.8-10.6) k/uL RBC (3.80-5.40) m/uL Hgb (11.4-16.0) gm/dL Hct (34.0-46.0) % MCV (80.0-100.0) fL RDW (11.5-15.5) % Plt Count (150-450) k/uL Neutrophils # (1.3-7.7) k/uL Lymphocytes # (1.0-4.8) k/uL Monocytes # (0-1.0) k/uL Macrocytosis ABG HCO3 29 H (21-25) mmol/L ABG Total CO2 30 H (19-24) mmol/L ABG O2 Saturation 98.1 H (94-97) % Sodium 133 L (137-145) mmol/L BUN 24 H (7-17) mg/dL Creatinine 1.18 H (0.52-1.04) mg/dL Glucose 126 H (74-99) mg/dL POC Glucose (mg/dL) 135 H (70-110) mg/dL Calcium 7.7 L (8.4-10.2) mg/dL Total Bilirubin 1.7 H (0.2-1.3) mg/dL AST 56 H (14-36) U/L Alkaline Phosphatase 198 H (38-126) U/L Total Protein 4.8 L (6.3-8.2) g/dL Albumin 1.9 L (3.5-5.0) g/dL 05/18/23 Range/Units 12:02 WBC (3.8-10.6) k/uL RBC (3.80-5.40) m/uL Hgb (11.4-16.0) gm/dL Hct (34.0-46.0) % MCV (80.0-100.0) fL RDW (11.5-15.5) % Plt Count (150-450) k/uL Neutrophils # (1.3-7.7) k/uL Lymphocytes # (1.0-4.8) k/uL Monocytes # (0-1.0) k/uL Macrocytosis ABG HCO3 (21-25) mmol/L ABG Total CO2 (19-24) mmol/L ABG O2 Saturation (94-97) % Sodium (137-145) mmol/L BUN (7-17) mg/dL Creatinine (0.52-1.04) mg/dL Glucose (74-99) mg/dL POC Glucose (mg/dL) 125 H (70-110) mg/dL Calcium (8.4-10.2) mg/dL Total Bilirubin (0.2-1.3) mg/dL AST (14-36) U/L Alkaline Phosphatase (38-126) U/L Total Protein (6.3-8.2) g/dL Albumin (3.5-5.0) g/dL Assessment and Plan Assessment: 1. Acute kidney injury, oliguric ATN secondary to hypotension and sepsis. UA shows 1+ protein and trace blood and WBCs 16. Ultrasound of the kidneys shows right kidney 10.0 cm left kidney 8.4 cm no hydronephrosis noted. Started hemodialysis on 05/11/2023 due to severe volume overload and poor urine output. 2. Non-gap metabolic acidosis secondary to acute kidney injury 3. Hyperkalemia associated with acute kidney injury, resolved 4. Non-ST elevation [place] 5. Sepsis with source most likely related to UTI as previous urine culture on 04/26/2023 showed ESBL E. coli versus the dental abscess 6. Encephalopathy , metabolic 7. Acute hypoxic respiratory failure currently on the vent 8. Severe volume overload 9. Hypokalemia status post replacement Plan: Continue daily dialysis and UF as tolerated
--- NOTE | 2023-05-18 14:11 | P.PN ---
Subjective Progress Note Date: 05/18/23 Principal diagnosis: Acute on chronic hypoxic and hypercapnic respiratory failure secondary to pulmonary edema/fluid overload and bilateral pleural effusion This is an 82-year-old female patient with a history of liver cirrhosis, pancytopenia, coronary artery disease with previous stent placement, compression fracture of T7 and T8, acute left posterior eighth rib fracture, thyroid mass, new onset atrial fibrillation and non-ST segment elevation myocardial infarction. She had been admitted back on 04/29/2023 with chest pain and shortness of breath. Echocardiogram revealed impaired left ventricular systolic function with ejection fraction 45%. She was being cared for on the selective care unit. Last evening at a approximately 1145 and rapid response team was called due to hypotension with blood pressure 70 over 40s. She received 100 mL of fluid resuscitation and was transferred to the intensive care unit and initiated on norepinephrine. She is seen today in consultation. She is lethargic. Minimally responsive. She had been calling out in pain earlier. When she was repositioned she settled down. This is felt to be secondary to her compression fractures and rib fractures. He does have a stage II decubitus ulcer. She also has severe suspected neuropathy of the bilateral lower extremities. She is maintaining good O2 saturation in the mid 90s on 2 L/min per nasal cannula. 0.08 mcg/kg/min. She has normal staying at 80 MLS per hour. White count 11.9. Platelets 55,000. Sodium 130. Potassium 4.9. Bicarb 33. BUN 74. Creatinine 2.78. Glucose 137. Urine culture reveals no growth. Currently on ertapenem. X-ray reveals cardiomegaly with mild central vascular congestion and interstitial opacities suggesting edema. Small to moderate bibasilar pleural effusions with adjacent atelectasis. On today's evaluation of 05/09/2023, the patient is being seen for a follow-up. As mentioned, the patient was transferred to the intensive care unit yesterday because of hypotension. She has multiple medical problems including coronary artery disease and previous coronary intervention and stenting and the patient also has liver cirrhosis, and she did encounter a new onset atrial fibrillation. At the same time, the patient is suspected to be septic. The patient has been treated with IV fluids. The patient continues to be on pressors and the patient is currently on norepinephrine running 0.14 mcg/kg/min. IV fluids are running in the rate of 50 cc an hour of normal saline. The patient is currently on IV Invanz. The white cell count today is 11.1. Hemoglobin is at 11 and a platelet count is at 55. Note that the patient has chronic thrombocytopenia related to her chronic liver disease. She also had an acute kidney injury and the cre atinine peaked at 3 and currently is downtrending down to 2.65. Potassium level today is at 5.8 with a sodium level of 132. LFTs are abnormal with an alkaline phosphatase of 314, AST of 51 and ALT of 21. Her procalcitonin level was at 2.53 and her free T4 was 1.36 with a TSH of 5.9. UA was abnormal suspicious for an underlying urinary tract infection and cultures are still pending for now. Meanwhile, the CAT scan of the abdomen and pelvis that was obtained on 05/04/2023 showed no evidence of any acute intra-abdominal process. Nodular contour of the liver was suggestive of liver cirrhosis and the patient had signs of portal hypertension and cardiomegaly and pulm vascular congestion. The CAT scan of the face that was done on 05/04/2023 showed a soft tissue masslike area in the inferior left neck measuring 47 x 36 mm in size and inflammatory changes along the right mandible without an organizing collection. A head and neck abscess cannot be completely ruled out at this point in time. Neurologically, the patient is encephalopathic. She has episodes of crying and yelling and she r emains altered. Her the serum ammonia level was 17. The patient remains on lactulose which is unfortunately being given through the rectal source which is causing significant amount of contamination. At the same time, cardiac rhythm is currently controlled and she remains in atrial fibrillation. She remains on amiodarone 200 mg p.o. twice a day. The Toprol has been placed on hold based on her underlying hypotension. Her echocardiogram from 04/30/2023 showed a ejection fraction of 45%, mild RV dilatation, mild mitral regurgitation, no other significant abnormalities noted. On today's evaluation of 05/10/2023, the patient is being seen for a follow-up. The patient is in the intensive care unit for sepsis and hypotension. Note that the patient underwent an evaluation by the oral surgeon yesterday and the patient was found to have a dental abscess tooth #[id number] and surgical extraction of the tooth was done and cultures were sent. At the same time, we are suspecting an underlying urine tract infection as another source of sepsis the patient and the patient is currently on IV Invanz as the patient has had previous ESBL producing E. coli in her urine based on the culture that was obtained on 04/26/2023. The patient remains on pressors. She is on norepinephrine running at 0.15 mcg/kg/min. IV fluids are in the form of D5.9 at the rate of 50 cc an hour. Urine output is in order of 30 cc an hour and there is also interval improvement of creatinine which is down to 2.4 with a BUN of 78. Sodium levels at 133 with a potassium level of 5.2. The white cell count is at 10.2 with a hemoglobin of 10.4 and a platelet count of 85. Note that the patient has chronic thrombocytopenia related to her chronic liver disease. She is arousable. She is awake. She is on oxygen at 2 L with a pulse ox of 96%. On 05/11/2023, the patient is more lethargic compared to yesterday. There has been progressive worsening in her mentation and this has been noted throughout the day. In the morning, she was still arousable and later on during the day, the patient became quite obtunded. Based on that, the patient was given a stat CAT scan of the brain that showed no acute intracranial abnormalities. The patient's CAT scan of the brain showed Moderate bifrontal atrophy and old lacunar infarct in the left basal ganglia. There was also slightly heterogeneous appearance of the brainstem felt to be related to a prominent skull base artifact. Subsequently, the patient was given a blood gas that showed a pH of 7.11 with a pCO2 of 93 and pO2 117 and the patient's mental status is most like related to hypercapnic respiratory failure and CO2 narcosis. Chest x-ray that was done earlier this morning that showed cardiomegaly and pulm vascular congestion but the pleural fluid. Fluid balance has been +1 L over the past 24 hours and the patient has been persistently in a positive fluid balance and the patient has diffuse anasarca related to her liver failure and sepsis. The BUN is at 72 with a creatinine of 2.4 and sodium is at 136. WBC count is at 8.2 with a hemoglobin 9.8 and a platelet count of 76. She remains hypotensive. She remains on pressors and the patient is currently on norepinephrine running at 0.09 mcg/kg/min. Her pressor requirements are slightly improved compared to yesterday. She remains on D5 normal saline today stopped 50 cc an hour.. In terms of her cultures, the patient's oral culture is showing some anaerobic growth. She also has Sabrina albicans. Blood cultures were negative. Urine cultures also been negative. The patient remains on IV antibiotics and antibiotics has been modified to a combination of IV Eraxis, daptomycin and IV Invanz. on today's evaluation of 05/12/2023, I am seeing the patient for a follow-up. Events from yesterday were noted. The patient went into hypercapnic respiratory failure and she became altered and obtunded and based on that, and that intubating the patient and placed on mechanical ventilator for acute on chronic hypoxic and hypercapnic respiratory failure. Also, the patient was in significant fluid overload. Immediately postintubation, dialysis catheter was obtained and the patient was started on hemodialysis with ultrafiltration and a total of 2 L of fluid was removed yesterday. This morning, the patient remains intubated on the mechanical ventilator. She is currently on propofol running at 40 mcg/kg/min. She is on assist-control with rate of 26 with a tidal volume of 400 FiO2 40% with a PEEP of 5. Blood gas from this morning showed respiratory alkalosis with a pH of 7.58 and a pCO2 of 29 and pO2 of 77. Based on that, the respiratory rate was dropped down to 77. Chest x-ray from today showing cardiomegaly. There is bilateral pleural effusion worse on the right which is slightly improved compared to yesterday. ET tube is in a good location and the patient also has a triple-lumen catheter in her left IJ and a dialysis catheter in her right IJ. She is still hypotensive. Norepinephrine is running at 0.16 mcg/kg/min. The patient is also on physiologic dose of vasopressin A arterial line catheter was also inserted yesterday and her blood pressure is stable for now with a mean arterial pressure of around 80. Her cardiac rhythm is atrial fibrillation. In terms of the rest of the blood work, the patient has a white cell count of 12.2 with a hemoglobin 9.8 and a platelet count of 103. BUN is at 56 and the creatinine is up down to 1.7. Potassium is down to 4.5 and his sodium level is at 135. Her serum ammonia level is at 23. She continues to have significant amount of third spacing, peripheral edema and diffuse anasarca. In terms of her antibiotic coverage, the patient is currently on a combination of IV Invanz, daptomycin and Eraxis. Enteral feeding has not been started yet. On today's evaluation of 05/13/2023, the patient is being seen for a follow-up. The patient remains intubated on the mechanical ventilator. On today's evaluation, the patient is on propofol which is running at 40 mcg/kg/min. The patient is calm and comfortable and the patient is essentially centralized on the mechanical ventilator. On today's evaluation, the patient is on assist- control mode of mechanical ventilation and she is on a rate of 20, tidal volume of 400, FiO2 at 40% with a PEEP of 5. The chest x-ray is showing cardiomegaly and bilateral pleural effusions slightly improved and the ET tube is in a good location. The blood gas show a pH of 7.50 with a pCO2 of 35 and a pO2 of 118 and this was on FiO2 of 40%. No significant orotracheal secretions. The patient hemodynamically is still pressor dependent. She is currently on norepinephrine running at 0.2 mcg/kg/min and her norepinephrine dose is being titrated as the patient is undergoing hemodialysis and she is having variation and fluctuations in blood pressure. She is also on physiologic dose of vasopressin. No other hemodialysis was performed yesterday with a total of 2 point liters of ultrafiltration. Another session of hemodialysis being done today. The patient remains on Lasix 60 mg IV push every 12 hours. The fluid balance over the past 24 hours has been negative as the patient is making some urine output in the same time the patient is being dialyzed and ultrafiltrate it. Antibiotic coverage includes a combination of Invanz, Eraxis and daptomycin. Note that the patient had blood culture sent and the results are still pending for now. The cultures from the mouth and the right mandible were positive for staph hemolyticus and Sabrina albicans. The patient at the same ti me is in atrial fibrillation. The patient is on vital high-protein at the rate of 32 cc an hour and the patient seems to be tolerating her enteral feeding without any major difficulties. WBC count 11.7 with a hemoglobin 9.7 and a platelet count of 111. Sodium is at 132 with a potassium level of 3.7, BUN is 44 with a creatinine of 1.5 and a glucose of 154. LFTs are showing some mild elevation of the alkaline phosphatase at 218 and a total of 10 protein is at 4.5 with an albumin of 1.9. On 05/14/2023, the patient is being seen for a follow-up. Remains intubated on the mechanical ventilator. Sedation was discontinued yesterday and she has been off sedation for approximately 12 hours. She is sluggishly responsive to painful stimulation. Unable to communicate. Profoundly lethargic and sleepy. Most recent ammonia level was 2424 from yesterday. The patient remains on lactulose 30 g once a day and we are monitoring bowel movement activity on this patient. As mentioned earlier, the patient has liver cirrhosis, massive fluid overload, renal failure, respiratory failure requiring intubation mechanical ventilation and the patient is undergoing daily dialysis with ultrafiltration. Dialysis was done yesterday and approximately 2 L of fluid was removed. The goal for today is around 3 L. She continues to have diffuse anasarca, extensive edema in all 4 extremities, and the chest x-ray still showing bilateral pleural effusion which is essentially unchanged. While on the mechanical ventilator, she is on assist-control mode with rate of 14, tidal volume of 400, FiO2 40% with a PEEP of 5. Blood gas shows a pH of 7.58 with a pCO2 of 29 and pO2 of 77 and this was an FiO2 of 40%. Rest of the blood work and electrolytes show a sodium level of 135, potassium level is at 4.5, BUN is at 56 with a creatinine of 1.7. Potassium level is at 4.5. LFTs are normal with mild elevation of alkaline phosphatase at 240. Serum albumin is at 1.9 with a total protein of 4.4. She is afebrile. She remains on a combination of antibiotics. She is on IV Invanz, Eraxis and daptomycin. Hemodynamically, she is still requiring pressors and the patient is currently on norepinephrine at 0.15 mcg/kg/min. IV fluids are currently at KVO. Enteral feeding for nutritional support is being provided and the patient is currently on vital high-protein at a rate of 32 cc an hour. She is afebrile for now. No other significant events overnight. 05/15/2023, the patient is being seen for a follow-up. The patient is undergoing daily hemodialysis. Yesterday she underwent hemodialysis ultrafiltration with 2 L of fluid removed and the same was done earlier this morning prior to my arrival. This morning, the patient is still off the propofol. She is grimacing to painful stimulation. However, she is still significantly encephalopathic and obtunded. Note that she has also history of liver cirrhosis and she has a component of hepatic encephalopathy, and metabolic encephalopathy. Postintub ation, drugs were provided in the form of propofol which may be also contributing to her diminished level of consciousness. In terms of her acid- base balance, her pCO2 has improved and she remains on mechanical ventilator and the most recent vent setting including assist-control of 14, tidal volume of 350, FiO2 of 30% with a PEEP of 5. pH is 7.39 with a pCO2 of 46 and pO2 of 105. Repeat chest x-ray from today shows improvement in volume status. There is diminution of the bilateral pleural effusions. She continues to have significant fluid overload with third spacing and edema in all 4 extremities. Hemodynamically, the patient is still on norepinephrine which has been weaned down to 0.09 mcg/kg/min. Her white cell count is at 9.9. She is afebrile. Hemoglobin is at 9.9 and a white cell count is at 14.4. Platelet count is at 91. Rest of blood work shows a BUN of 20, creatinine of 0.8, sodium levels at 137 and a potassium level of 3.1. The patient remains essentially on the same antibiotic coverage and she is on a combination of daptomycin, IV Invanz and Eraxis. In terms of enteral feeding, she remains on vital HP at a rate of 32 cc an hour which is at goal. In terms of bowel movement activity, the patient remains on lactulose for hepatic encephalopathy. The most recent ammonia level is currently at 24 Patient was reevaluated today on 05/16/2023, martha in the ICU, intubated and mechanically ventilated, on hemodialysis. Patient is on assist-control rate of 14 tidal volume 350 FiO2 30% and PEEP of 5. Patient is not sedated has been off propofol since 05/12, she is requiring a small dose of norepinephrine at 0.06 mcg/kg/min, ABG showed a pO2 of 373 pCO2 45 pH of 7.40 patient is now on 50% FiO2. Patient remains on daptomycin, Eraxis, and Invanz, chest x-ray showed endotracheal tube to tube to be far down in the carinal area, and this needs to be pulled up about 2 cm patient is developing drop in her platelets, remains on subcu heparin, and will continue to monitor the platelets. Chest x-ray continues to show small bilateral pleural effusions, patient will not require thoracentesis at this point since she is receiving hemodialysis/ultrafiltration. WBC count is 14 hemoglobin 9.2. Basic metabolic profile is normal except for potassium of 3.3 BUN of 29 creatinine 1.25. Her blood cultures have been negative however cultures from the right mandible/wound cultures grew positive for Staphylococcus hemolyticus, antibiotics as noted earlier. Including da ptomycin, Eraxis, and Invanz Patient was reevaluated today at 05/17/2023, remains in the ICU, intubated and mechanically ventilated, patient is on assist-control rate 14 tidal volume 350 FiO2 28%, and PEEP of 5 ABG showed a pO2 of 88 pCO2 45 pH of 7.41, and is requiring a tiny dose of norepinephrine at 0.03 mcg/kg/min, she is also receiving vital HP at 32 cc/h. Antibiotics hernandez remains on Eraxis daptomycin and Invanz. Patient is receiving Lasix at 60 mg IV push every 12 hours. Patient is intermittently getting hemodialysis/ultrafiltration, patient has hardly any urine output, patient had a total ultrafiltration of 16.5 L over the last 1 week chest x-ray continues to show mild pulmonary edema, and the patient continues to have bipedal edema. WBC count today is 14.8 hemoglobin is 9.2. A BG as noted above, basic metabolic profile is normal BUN is 28 creatinine 1.15 reevaluate today on 05/18/2023, remains in the ICU intubated and mechanically ventilated, on assist-control rate of 14 tidal volume 350 FiO2 28% PEEP of 5 ABG showed a pO2 of 95 pCO2 44 pH of 7.43. Patient is still requiring Levophed at 0.12 mcg/kg/min, being titrated to maintain adequate blood pressure, she is on IV fluids at KVO, vital HP at 45/45, patient continues to have significant amount of secretions, failed a trial of weaning yesterday, another trial will be given today, patient is not requiring any sedation. Today should the patient be given another trial of pressure support and CPAP, I have discontinued Lasix because it does not seem to be contributing much to urine output, patient is being dialyzed. Remains on Eraxis daptomycin and Invanz. Not much of a change is noted to the last 24 hours. Patient was initially admitted on 04/30, intubated on 05/11, and by Tuesday it will be at least 11 or 12 days of intubation, hence I am recommending surgical evaluation for possible tracheostomy if the patient continues to fail weaning. Weaning trials will be given again today with pressure support and CPAP chest x-ray continues to show small to moderate bilateral pleural effusions and atelectasis. WBC count is 18 hemoglobin is 10.4. Cancer leukocytosis seems to be worsening in spite of antibiotics basic metabolic profile is normal BUN is 24 creatinine 1.18. Objective - Vital Signs Vital signs: Vital Signs Temp 98.2 F 05/18/23 12:00 Pulse 102 H 05/18/23 12:00 Resp 05/18/23 12:00 BP 143/65 05/18/23 11:53 Pulse Ox 100 05/18/23 12:00 FiO2 05/18/23 12:53 Intake & Output 05/17/23 05/18/23 05/18/23 18:59 06:59 18:59 Intake Total 980.744 731.097 892.102 Output Total 017 58 8199 Balance 145.744 721.097 -2537.898 Weight 94.2 kg 92.2 kg Intake: IV 369 143 78 .9 kvo 130 110 60 Anidulafungin 100 mg In 100 Sodium Chloride 0.9% 100 ml @ 84 mls/hr IVPB DAILY @1300 [facility] Rx#:[id number] Arterial Pressure Bag NS 39 33 18 0.9% DAPTOmycin 400 mg In 50 Sodium Chloride 0.9% 50 ml @ 100 mls/hr IVPB Q48H [facility] Rx#:[id number] Ertapenem 0.5 gm In 50 Sodium Chloride 0.9% 50 ml @ 100 mls/hr IVPB DAILY [facility] Rx#:[id number] Intake, IV Titration 89.744 93.097 69.102 Amount Norepinephrine 8 mg In 89.744 93.097 69.102 Sodium Chloride 0.9% 250 ml @ 0.03 MCG/KG/MIN 5. 759 mls/hr IV .Q24H [facility] Rx#:[id number] Tube Feeding 122 495 315 Hemodialysis 400 400 Other 30 Output: Urine 35 10 30 Stool 400 Urine/Stool Mix 400 Hemodialysis 3400 Other: Voiding Method Indwelling Catheter Indwelling Catheter Indwelling Catheter ABP, PAP, CO, CI - Last Documented Arterial Blood Pressure 139/52 - Exam GENERAL EXAM:, Revealed 82-year-old female, arousable, opens her eyes continues to follow simple instructions HEAD: Normocephalic. EYES: Normal reaction of pupils, equal size. NOSE: Clear with pink turbinates. THROAT: No erythema or exudates. Moist mucous membranes noted NECK: No masses, no JVD. The patient has a left IJ triple-lumen catheter in the right IJ dialysis catheter. CHEST: No chest wall deformity. LUNGS: Coarse at the bases persist CVS: S1 and S2 normal with no audible murmur, regular rhythm. ABDOMEN: Soft nontender no megaly no rebound no guarding. SKIN: Stage II coccyx ulcer CENTRAL NERVOUS SYSTEM: Opens eyes, following simple instructions today EXTREMITIES: There is 2+ peripheral edema. No clubbing, no cyanosis. Peripheral pulses are intact. - Labs CBC & Chem 7: 05/18/23 05:42 05/18/23 05:42 Labs: Abnormal Lab Results - Last 24 Hours (Table) 05/17/23 05/18/23 05/18/23 Range/Units 18:12 00:01 05:42 WBC 18.0 H (3.8-10.6) k/uL RBC 3.03 L (3.80-5.40) m/uL Hgb 10.4 L (11.4-16.0) gm/dL Hct 31.8 L (34.0-46.0) % MCV 105.1 H (80.0-100.0) fL RDW 20.3 H (11.5-15.5) % Plt Count 108 L (150-450) k/uL Neutrophils # 14.8 H (1.3-7.7) k/uL Lymphocytes # 0.8 L (1.0-4.8) k/uL Monocytes # 1.4 H (0-1.0) k/uL Macrocytosis Marked A ABG HCO3 (21-25) mmol/L ABG Total CO2 (19-24) mmol/L ABG O2 Saturation (94-97) % Sodium (137-145) mmol/L BUN (7-17) mg/dL Creatinine (0.52-1.04) mg/dL Glucose (74-99) mg/dL POC Glucose (mg/dL) 123 H 125 H (70-110) mg/dL Calcium (8.4-10.2) mg/dL Total Bilirubin (0.2-1.3) mg/dL AST (14-36) U/L Alkaline Phosphatase (38-126) U/L Total Protein (6.3-8.2) g/dL Albumin (3.5-5.0) g/dL 05/18/23 05/18/23 05/18/23 Range/Units 05:42 05:44 06:28 WBC (3.8-10.6) k/uL RBC (3.80-5.40) m/uL Hgb (11.4-16.0) gm/dL Hct (34.0-46.0) % MCV (80.0-100.0) fL RDW (11.5-15.5) % Plt Count (150-450) k/uL Neutrophils # (1.3-7.7) k/uL Lymphocytes # (1.0-4.8) k/uL Monocytes # (0-1.0) k/uL Macrocytosis ABG HCO3 29 H (21-25) mmol/L ABG Total CO2 30 H (19-24) mmol/L ABG O2 Saturation 98.1 H (94-97) % Sodium 133 L (137-145) mmol/L BUN 24 H (7-17) mg/dL Creatinine 1.18 H (0.52-1.04) mg/dL Glucose 126 H (74-99) mg/dL POC Glucose (mg/dL) 135 H (70-110) mg/dL Calcium 7.7 L (8.4-10.2) mg/dL Total Bilirubin 1.7 H (0.2-1.3) mg/dL AST 56 H (14-36) U/L Alkaline Phosphatase 198 H (38-126) U/L Total Protein 4.8 L (6.3-8.2) g/dL Albumin 1.9 L (3.5-5.0) g/dL 05/18/23 Range/Units 12:02 WBC (3.8-10.6) k/uL RBC (3.80-5.40) m/uL Hgb (11.4-16.0) gm/dL Hct (34.0-46.0) % MCV (80.0-100.0) fL RDW (11.5-15.5) % Plt Count (150-450) k/uL Neutrophils # (1.3-7.7) k/uL Lymphocytes # (1.0-4.8) k/uL Monocytes # (0-1.0) k/uL Macrocytosis ABG HCO3 (21-25) mmol/L ABG Total CO2 (19-24) mmol/L ABG O2 Saturation (94-97) % Sodium (137-145) mmol/L BUN (7-17) mg/dL Creatinine (0.52-1.04) mg/dL Glucose (74-99) mg/dL POC Glucose (mg/dL) 125 H (70-110) mg/dL Calcium (8.4-10.2) mg/dL Total Bilirubin (0.2-1.3) mg/dL AST (14-36) U/L Alkaline Phosphatase (38-126) U/L Total Protein (6.3-8.2) g/dL Albumin (3.5-5.0) g/dL Assessment and Plan Assessment: Impression: Acute on chronic hypoxic and hypercapnic respiratory failure, secondary to pulmonary edema and fluid overload with renal failure requiring hemodialysis and ultrafiltration. Acute metabolic encephalopathy Sepsis and septic shock with bacteremia secondary to mandibular abscess. And recent tooth extraction Bilateral pleural effusion right more than left, improving on today's chest x- ray Acute kidney injury secondary to above, requiring hemodialysis. Acute hyperkalemia, improved compression fractures of T7 and T8 and acute left posterior eighth rib fracture Neuropathy Stage II decubitus ulcer History of liver cirrhosis Pancytopenia Non-ST segment elevation myocardial infarction New onset atrial fibrillation with controlled ventricular response, rate controlled for now. 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 Recommendation: Continue ventilatory support, daily trials of weaning will be continued and if she continues to fail in the next couple of days, may consider tracheostomy and PEG tube placed Continue hemodynamic support patient is still requiring norepinephrine Discontinue IV push Lasix Continue midodrine Continue nutritional support/enteral feeding Continue antibiotics as per ID on the case Continue hemodialysis/ultrafiltration Continue to monitor strictly I's and O's, and weights Continue GI and DVT prophylaxis monitor platelets closely Patient remains critically ill Not quite ready for extubation, Daily weaning trials in progress Will continue to follow critical care time is over 30 minutes Time with Patient: Greater than 30
--- NOTE | 2023-05-18 14:31 | P.GSCN ---
History of Present Illness Consult date: 05/18/23 History of present illness: CHIEF COMPLAINT: Chest pain HISTORY OF PRESENT ILLNESS: This is a 82-year-old female who was admitted to the hospital on 04/30/2022 with chest pain. Patient also had fallen with left posterior eighth rib fracture and compression fractures of T7 and T8. Patient with acute kidney injury. Patient had A-fib RVR and required transfer to the [facility]. She is currently intubated and on mechanical ventilation due to pulmonary edema and fluid overload. Patient is requiring daily hemodialysis. She was intubated on May 11 2023. Patient is currently off of propofol. They are having difficulty weaning patient from vent. Patient also had bacteremia secondary to a mandibular abscess with recent tooth extraction. Surgical service has been consulted for tracheostomy and PEG tube placement. 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 Coronary Artery Disease (CAD), GERD/Reflux, Hyperlipidemia, Hypertension, Liver Disease, Myocardial Infarction ([place]), Osteoarthritis (OA) PAST SURGICAL HISTORY: Cholecystectomy, Heart Catheterization With Stent, Hysterectomy, Joint Replacement, Orthopedic Surgery, tumor removed from thyroid MEDICATIONS: See below ALLERGIES: See below SOCIAL HISTORY: No illicit drug use. REVIEW OF SYSTEMS: Unable to obtain. patient is intubated PHYSICAL EXAM: VITAL SIGNS: Reviewed GENERAL: no acute distress. HEENT: No sclera icterus. Extraocular movements grossly intact. Moist buccal mucosa. Head is atraumatic, normocephalic. No nasal drainage. ABDOMEN: Soft. Nondistended. Nontender NEUROLOGIC: awake. Eyes open LABORATORY DATA: WBC 14.8 up to 18.0 Hgb 10.4 platelets 108 Sodium is 133 potassium 4.0 creatinine 1.18 IMAGING: ASSESSMENT: 1. Acute on chronic hypercapnic respiratory failure with difficulty weaning from vent 2. Severe protein calorie malnutrition PLAN: -Patient tentatively scheduled for tracheostomy and PEG tube placement either Tuesday or next Tuesday with Dr. Sneed -Dr. Sneed planning on meeting with family at bedside tomorrow morning to discuss tracheostomy and PEG tube placement Physician Loan Officer Assistant note has been reviewed by physician. Signing provider agrees with the documented findings, assessment, and plan of care. 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 Kan). 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 Freq. platelet transfusion with most procedures. Date of Last Stent Placement:: 1998 Past Psychological History: No Psychological Hx Reported Smoking Status: Former smoker Past Alcohol Use History: None Reported Additional Past Alcohol Use History / Comment(s): smokes maybe weekly- 1-2 cigarettes- had smoked and quit for 12 yrs and started up about 5 yrs ago again Past Drug Use History: None Reported - Past Family History Mother Family Medical History: Cancer Additional Family Medical History / Comment(s): Breast Ca Father Family Medical History: Myocardial Infarction ([place]) Additional Family Medical History / Comment(s): @ age 86 from [place] Medications and Allergies Home Medications Medication Instructions Recorded Confirmed Type Pravastatin Sodium 80 mg PO DAILY 07/30/20 04/30/23 History Primidone [Mysoline] 50 mg PO BID 07/30/20 04/30/23 History Triamcinolone 0.1% Ointment 1 applic TOPICAL DAILY PRN 12/03/22 04/30/23 History [Kenalog 0.1% Ointment] Metoprolol Succinate (ER) [Toprol 12.5 mg PO DAILY #30 tab 12/10/22 04/30/23 Rx XL] Midodrine [ProAmatine] 5 mg PO AC-TID #90 tab 12/10/22 04/30/23 Rx Furosemide [Lasix] 40 mg PO BID #0 12/16/22 04/30/23 Rx Ketorolac [Toradol] 10 mg PO Q8HR #15 tab 04/26/23 04/30/23 Rx Lidocaine 5% Patch [Lidoderm 5% 1 patch TOPICAL DAILY #5 patch 04/26/23 04/30/23 Rx Patch] Ampicillin 500mg Capsule 500 mg PO DAILY 04/30/23 04/30/23 History Clotrimazole/Betameth Cream 1 applic TOPICAL BID 04/30/23 04/30/23 History [Lotrisone] Cyclobenzaprine [Flexeril] 10 mg PO TID PRN 04/30/23 04/30/23 History Lactulose [Constulose] 30 gm PO TID 04/30/23 04/30/23 History Allergies Allergy/AdvReac Type Severity Reaction Status Date / Time cephalexin monohydrate Allergy Rash/Hives/ Verified 04/30/23 12:21 [From Keflex] Swelling codeine Allergy Rash/Hives Verified 04/30/23 12:21 doxepin Allergy Rash/Hives Verified 04/30/23 12:21 meperidine HCl [From Demerol] Allergy Rash/Hives Verified 04/30/23 12:21 methylprednisolone Allergy Rash/Hives Verified 04/30/23 12:21 [From Medrol] Opioids - Morphine Analogues Allergy Rash/Hives Verified 04/30/23 12:21 Penicillins Allergy Swelling Verified 04/30/23 12:21 over entire body pentazocine lactate Allergy Rash/Hives-Stomach Verified 04/30/23 12:21 [From Talwin] Upset propoxyphene napsylate Allergy Rash/Hives- Verified 04/30/23 12:21 [From Darvocet-N] Itch tramadol Allergy Rash/Hives Verified 04/30/23 12:21 ketorolac [From Toradol] AdvReac Hallucinati Verified 04/30/23 12:27 ons Surgical - Exam Vital Signs Temp Pulse Resp BP Pulse Ox 98.3 F 125 H 24 106/55 96 04/29/23 22:45 04/29/23 22:45 04/29/23 22:45 04/29/23 22:45 04/29/23 22:45 Results - Labs 05/18/23 05:42 05/18/23 05:42 Abnormal Lab Results - Last 24 Hours (Table) 05/17/23 05/18/23 05/18/23 Range/Units 18:12 00:01 05:42 WBC 18.0 H (3.8-10.6) k/uL RBC 3.03 L (3.80-5.40) m/uL Hgb 10.4 L (11.4-16.0) gm/dL Hct 31.8 L (34.0-46.0) % MCV 105.1 H (80.0-100.0) fL RDW 20.3 H (11.5-15.5) % Plt Count 108 L (150-450) k/uL Neutrophils # 14.8 H (1.3-7.7) k/uL Lymphocytes # 0.8 L (1.0-4.8) k/uL Monocytes # 1.4 H (0-1.0) k/uL Macrocytosis Marked A ABG HCO3 (21-25) mmol/L ABG Total CO2 (19-24) mmol/L ABG O2 Saturation (94-97) % Sodium (137-145) mmol/L BUN (7-17) mg/dL Creatinine (0.52-1.04) mg/dL Glucose (74-99) mg/dL POC Glucose (mg/dL) 123 H 125 H (70-110) mg/dL Calcium (8.4-10.2) mg/dL Total Bilirubin (0.2-1.3) mg/dL AST (14-36) U/L Alkaline Phosphatase (38-126) U/L Total Protein (6.3-8.2) g/dL Albumin (3.5-5.0) g/dL 05/18/23 05/18/23 05/18/23 Range/Units 05:42 05:44 06:28 WBC (3.8-10.6) k/uL RBC (3.80-5.40) m/uL Hgb (11.4-16.0) gm/dL Hct (34.0-46.0) % MCV (80.0-100.0) fL RDW (11.5-15.5) % Plt Count (150-450) k/uL Neutrophils # (1.3-7.7) k/uL Lymphocytes # (1.0-4.8) k/uL Monocytes # (0-1.0) k/uL Macrocytosis ABG HCO3 29 H (21-25) mmol/L ABG Total CO2 30 H (19-24) mmol/L ABG O2 Saturation 98.1 H (94-97) % Sodium 133 L (137-145) mmol/L BUN 24 H (7-17) mg/dL Creatinine 1.18 H (0.52-1.04) mg/dL Glucose 126 H (74-99) mg/dL POC Glucose (mg/dL) 135 H (70-110) mg/dL Calcium 7.7 L (8.4-10.2) mg/dL Total Bilirubin 1.7 H (0.2-1.3) mg/dL AST 56 H (14-36) U/L Alkaline Phosphatase 198 H (38-126) U/L Total Protein 4.8 L (6.3-8.2) g/dL Albumin 1.9 L (3.5-5.0) g/dL 05/18/23 Range/Units 12:02 WBC (3.8-10.6) k/uL RBC (3.80-5.40) m/uL Hgb (11.4-16.0) gm/dL Hct (34.0-46.0) % MCV (80.0-100.0) fL RDW (11.5-15.5) % Plt Count (150-450) k/uL Neutrophils # (1.3-7.7) k/uL Lymphocytes # (1.0-4.8) k/uL Monocytes # (0-1.0) k/uL Macrocytosis ABG HCO3 (21-25) mmol/L ABG Total CO2 (19-24) mmol/L ABG O2 Saturation (94-97) % Sodium (137-145) mmol/L BUN (7-17) mg/dL Creatinine (0.52-1.04) mg/dL Glucose (74-99) mg/dL POC Glucose (mg/dL) 125 H (70-110) mg/dL Calcium (8.4-10.2) mg/dL Total Bilirubin (0.2-1.3) mg/dL AST (14-36) U/L Alkaline Phosphatase (38-126) U/L Total Protein (6.3-8.2) g/dL Albumin (3.5-5.0) g/dL Diabetes panel 05/18/23 Range/Units 05:42 Sodium 133 L (137-145) mmol/L Potassium 4.0 (3.5-5.1) mmol/L Chloride 104 (98-107) mmol/L Carbon Dioxide 26 (22-30) mmol/L BUN 24 H (7-17) mg/dL Creatinine 1.18 H (0.52-1.04) mg/dL Glucose 126 H (74-99) mg/dL Calcium 7.7 L (8.4-10.2) mg/dL AST 56 H (14-36) U/L ALT 24 (4-34) U/L Alkaline Phosphatase 198 H (38-126) U/L Total Protein 4.8 L (6.3-8.2) g/dL Albumin 1.9 L (3.5-5.0) g/dL Calcium panel 05/18/23 Range/Units 05:42 Calcium 7.7 L (8.4-10.2) mg/dL Albumin 1.9 L (3.5-5.0) g/dL Pituitary panel 05/18/23 Range/Units 05:42 Sodium 133 L (137-145) mmol/L Potassium 4.0 (3.5-5.1) mmol/L Chloride 104 (98-107) mmol/L Carbon Dioxide 26 (22-30) mmol/L BUN 24 H (7-17) mg/dL Creatinine 1.18 H (0.52-1.04) mg/dL Glucose 126 H (74-99) mg/dL Calcium 7.7 L (8.4-10.2) mg/dL Adrenal panel 05/18/23 Range/Units 05:42 Sodium 133 L (137-145) mmol/L Potassium 4.0 (3.5-5.1) mmol/L Chloride 104 (98-107) mmol/L Carbon Dioxide 26 (22-30) mmol/L BUN 24 H (7-17) mg/dL Creatinine 1.18 H (0.52-1.04) mg/dL Glucose 126 H (74-99) mg/dL Calcium 7.7 L (8.4-10.2) mg/dL Total Bilirubin 1.7 H (0.2-1.3) mg/dL AST 56 H (14-36) U/L ALT 24 (4-34) U/L Alkaline Phosphatase 198 H (38-126) U/L Total Protein 4.8 L (6.3-8.2) g/dL Albumin 1.9 L (3.5-5.0) g/dL
[2023-05-18] MEDS ORDERED: amLODIPine 5 MG TAB PO SCH (15:45)
--- NOTE | 2023-05-18 17:15 | P.PN ---
Subjective Progress Note Date: 05/18/23 (delayed charting seen at 1115) Patient is an 82-year-old female with known cirrhosis, coronary artery disease status post stenting, chronic systolic congestive heart failure with ejection fraction 45%, hypertension, dyslipidemia, chronic pancytopenia with ITP who initially presented to the emergency department with chest pain and shortness of breath. In the ER she underwent extensive evaluation. On arrival she was tachycardic and tachypneic but saturating well on room air. EKG demonstrated sinus tachycardia with known left bundle branch block. Chest x-ray showed pulmonary vascular congestion. She subsequently underwent CT of the aorta which demonstrated striated left thyroid mass, bilateral pleural effusions, T7 and 8 compression fractures, left posterior eighth rib fracture, fracture of the left scapula, moderately enlarged heart, no signs of aortic rupture. Labs were remarkable for WBC count 1.6, hemoglobin 11.3, platelet count 41, INR 1.3, sodium 131, BUN 33, creatinine 1.19, total bili 4.2, AST 44, troponin 0.064 and proBNP 2360. Her troponin continued to uptrend. Cardiology was consulted and felt this was a type II NSTEMI, no further testing warrented. Echocardiogram showed mild LV systolic function decrease EF 45%, severely enlarged left atrium. Orthopedic surgery was consulted. Patient did get slightly more encephalopathic, and had low blood sugars, previous urinalysis was positive, urine culture was positive for ESBL. Repeat urinalysis shows a dirty sample. ID was consulted and patient placed on IV antibiotics, ertapenem. Patient also developed oliguric SCOOTER. A CT face showed neck mass of 3 x 4 cm and right maxillary inflammatory changes. ENT and maxillofacial surgery were consulted. ENT recommended IR consult and after review, radiology deferred this procedure due to stable imaging/finding of left neck mass/thyroid mass from prior imaging. Maxillofacial surgery took patient for dental extraction with abscess drainage of the right mandible. Patient required transfer to the ICU on 05/07 for septic shock requiring vasopressor. On 05/12/2023 patient became more encephalopathic with worsening hypercapnic respiratory failure, increasing pressors requirements and then he became oliguric. She was subsequently intubated, started on vasopr essin, also had dialysis catheter placed and started on dialysis.By 05/17 patient has been off of sedation for over 3 days, with minimal improvement in mental status. Plan is for trach and peg and surgery was consulted. Prolonged hospital stay Day # 18 my first evaluation. Patient seen and examined at bedside. She is on the vent and has been off sedation for 3 days. No family present at bedside. She is unable to do the following: track my fingers with her eyes, lift her head off the bed, close her eyes and keep them closed, show me a thumbs up. Vital signs reviewed General: Ill-appearing, no distress, appears at stated age Cardiovascular: S1S2 reg, no murmur Lungs: Coarse breath sounds bilateral, no rhonchi, no rales, no accessory muscle use, on vent Abdominal: Soft, nontender to palpation, no guarding Ext: + Gross muscle atrophy, 4+ edema all 4 extremities, no contractures Neuro: breathing over the vent, + cough, + withdrawal to noxious stimuli in bilateral upper extremities Psych: Eyes open Assessment/Plan: Acute encephalopathy, multifactorial, hepatic and metabolic Septic Shock with with possible sources: - urinary tract infection, prior cultures growing ESBL -Dental abscess status post surgical I and D with tooth extraction Acute hypoxic and hypercapnic respiratory failure, now ventilator dependent Pleural effusions bilateral Liver cirrhosis Macrocytic anemia, thrombocytopenia in the setting of liver disease -Discussed management with pulmonology, continue to wean pressors, continue respiratory support, continue hemodialysis -Case discussed with infectious disease. Will continue with current treatment with daptomycin, Eraxis, and ertapenem. Will consider de-escalating antibiotics once vasopressor requirements have stabilized. -ertapenem 0.5 g IV daily, on daptomycin 400 mg IV every 48 hours, Eraxis 100 mg IV daily -Patient did have to go up on her norepinephrine during dialysis. Continue with midodrine 10 mg 3 times daily. Continue to hold metoprolol 12.5 mg daily -Patient was on primidone for tremors, discontinued -Having frequent bowel movements and lactulose was decreased to 30 daily -Case discussed with surgical nurse practitioner. Will consider trach and PEG if family in agreement. Plan will be for 05/20/2023. Acute kidney injury now requiring hemodialysis Hyponatremia, hypervolemic - receiving HD today - Nephrology recs Anemia, thrombocytopenia - stable - follow CBC T7-8 compression fractures 30 to 40% Acute posterior eighth rib fracture -Orthopedic surgery signed off, patient not a surgical candidate -Continue with gabapentin 100 mg daily for pain control NSTEMI, likely type II New onset Afib with controlled ventricular rate History of CAD status post stent -Cardiology signed off, recommended medical management -Continue aspirin 81 mg -On amiodarone 200 gm BID for rate control, metoprolol 12.5 daily, no anticoagulation due to thrombocytopenia Thyroid mass -Outpatient follow-up Imaging: Chest x-ray: Small to moderate bilateral pleural effusions with adjacent at electasis Data Review: Labs reviewed from today include CBC, ABG, and CMP which are remarkable for white blood cell count 18, hemoglobin 10.4, platelets 108, sodium 133, BUN 24, creatinine 1.18, bilirubin 1.7, AST 56 DVT prophylaxis: Heparin Anticipated discharge date: Pending clinical course Anticipated discharge place: Pending clinical course This dictation was prepared using vitalclip voice recognition software. Though every attempt is made to correct errors during dictation some may still exist. Objective - Vital Signs Vital signs: Vital Signs Temp 98.2 F 05/18/23 12:00 Pulse 94 05/18/23 15:00 Resp 20 05/18/23 15:00 BP 143/65 05/18/23 11:53 Pulse Ox 100 05/18/23 15:00 FiO2 28 05/18/23 12:53 Intake & Output 05/17/23 05/18/23 05/18/23 18:59 06:59 18:59 Intake Total 980.744 172.134 1942.102 Output Total 547 46 1980 Balance 145.744 721.097 -2363.898 Weight 94.2 kg 92.2 kg Intake: IV 369 143 117 .9 kvo 130 110 90 Anidulafungin 100 mg In 100 Sodium Chloride 0.9% 100 ml @ 84 mls/hr IVPB DAILY @1300 [facility] Rx#:[id number] Arterial Pressure Bag NS 39 33 27 0.9% DAPTOmycin 400 mg In 50 Sodium Chloride 0.9% 50 ml @ 100 mls/hr IVPB Q48H [facility] Rx#:[id number] Ertapenem 0.5 gm In 50 Sodium Chloride 0.9% 50 ml @ 100 mls/hr IVPB DAILY [facility] Rx#:[id number] Intake, IV Titration 89.744 93.097 69.102 Amount Norepinephrine 8 mg In 89.744 93.097 69.102 Sodium Chloride 0.9% 250 ml @ 0.03 MCG/KG/MIN 5. 759 mls/hr IV .Q24H [facility] Rx#:[id number] Tube Feeding 122 495 450 Hemodialysis 400 400 Other 30 Output: Urine 35 10 30 Stool 400 Urine/Stool Mix 400 Hemodialysis 3400 Other: Voiding Method Indwelling Catheter Indwelling Catheter Indwelling Catheter ABP, PAP, CO, CI - Last Documented Arterial Blood Pressure 115/41 - Labs CBC & Chem 7: 05/18/23 05:42 05/18/23 05:42 Labs: Abnormal Lab Results - Last 24 Hours (Table) 05/17/23 05/18/23 05/18/23 Range/Units 18:12 00:01 05:42 WBC 18.0 H (3.8-10.6) k/uL RBC 3.03 L (3.80-5.40) m/uL Hgb 10.4 L (11.4-16.0) gm/dL Hct 31.8 L (34.0-46.0) % MCV 105.1 H (80.0-100.0) fL RDW 20.3 H (11.5-15.5) % Plt Count 108 L (150-450) k/uL Neutrophils # 14.8 H (1.3-7.7) k/uL Lymphocytes # 0.8 L (1.0-4.8) k/uL Monocytes # 1.4 H (0-1.0) k/uL Macrocytosis Marked A ABG HCO3 (21-25) mmol/L ABG Total CO2 (19-24) mmol/L ABG O2 Saturation (94-97) % Sodium (137-145) mmol/L BUN (7-17) mg/dL Creatinine (0.52-1.04) mg/dL Glucose (74-99) mg/dL POC Glucose (mg/dL) 123 H 125 H (70-110) mg/dL Calcium (8.4-10.2) mg/dL Total Bilirubin (0.2-1.3) mg/dL AST (14-36) U/L Alkaline Phosphatase (38-126) U/L Total Protein (6.3-8.2) g/dL Albumin (3.5-5.0) g/dL 05/18/23 05/18/23 05/18/23 Range/Units 05:42 05:44 06:28 WBC (3.8-10.6) k/uL RBC (3.80-5.40) m/uL Hgb (11.4-16.0) gm/dL Hct (34.0-46.0) % MCV (80.0-100.0) fL RDW (11.5-15.5) % Plt Count (150-450) k/uL Neutrophils # (1.3-7.7) k/uL Lymphocytes # (1.0-4.8) k/uL Monocytes # (0-1.0) k/uL Macrocytosis ABG HCO3 29 H (21-25) mmol/L ABG Total CO2 30 H (19-24) mmol/L ABG O2 Saturation 98.1 H (94-97) % Sodium 133 L (137-145) mmol/L BUN 24 H (7-17) mg/dL Creatinine 1.18 H (0.52-1.04) mg/dL Glucose 126 H (74-99) mg/dL POC Glucose (mg/dL) 135 H (70-110) mg/dL Calcium 7.7 L (8.4-10.2) mg/dL Total Bilirubin 1.7 H (0.2-1.3) mg/dL AST 56 H (14-36) U/L Alkaline Phosphatase 198 H (38-126) U/L Total Protein 4.8 L (6.3-8.2) g/dL Albumin 1.9 L (3.5-5.0) g/dL 05/18/23 Range/Units 12:02 WBC (3.8-10.6) k/uL RBC (3.80-5.40) m/uL Hgb (11.4-16.0) gm/dL Hct (34.0-46.0) % MCV (80.0-100.0) fL RDW (11.5-15.5) % Plt Count (150-450) k/uL Neutrophils # (1.3-7.7) k/uL Lymphocytes # (1.0-4.8) k/uL Monocytes # (0-1.0) k/uL Macrocytosis ABG HCO3 (21-25) mmol/L ABG Total CO2 (19-24) mmol/L ABG O2 Saturation (94-97) % Sodium (137-145) mmol/L BUN (7-17) mg/dL Creatinine (0.52-1.04) mg/dL Glucose (74-99) mg/dL POC Glucose (mg/dL) 125 H (70-110) mg/dL Calcium (8.4-10.2) mg/dL Total Bilirubin (0.2-1.3) mg/dL AST (14-36) U/L Alkaline Phosphatase (38-126) U/L Total Protein (6.3-8.2) g/dL Albumin (3.5-5.0) g/dL
[2023-05-18 17:46] LABS: Glucose,Whole Blood 146 mg/dL (70-110)
[2023-05-19 00:59] LABS: Glucose,Whole Blood 163 mg/dL (70-110)
[2023-05-19 05:06] LABS: Anisocytosis Moderate; HCT 30.1 % (34.0-46.0); Hypochromasia Moderate; MCH 34.8 pg (25.0-35.0); MCHC 33.2 g/dL (31.0-37.0); Macrocytosis Marked; Mean Platelet Volume 9.9; Poikilocytosis Moderate; RBC 2.87 m/uL (3.80-5.40); RDW 20.7 % (11.5-15.5)
[2023-05-19 05:11] LABS: African American GFR (CKD) 42 (>60 ml/min/1.73 sqM); Anion Gap 2 mmol/L; Blood Urea Nitrogen 28 mg/dL (7-17); Calcium 7.5 mg/dL (8.4-10.2); Carbon Dioxide 27 mmol/L (22-30); Chloride 101 mmol/L (98-107); Glucose 133 mg/dL (74-99); Non-African American GFR(CKD) 37 (>60 ml/min/1.73 sqM); Sodium 130 mmol/L (137-145)
[2023-05-19 05:42] LABS: ABG Base Excess 5.5 mmol/L; ABG HCO3 30 mmol/L (21-25); ABG PCO2 43 mmHg (35-45); ABG PH 7.45 (7.35-7.45); ABG PO2 104 mmHg (83-108); ABG TCO2 31 mmol/L (19-24); Allen Test Performed? Yes
[2023-05-19 05:51] LABS: Lymphocytes # (M) 0.52 k/uL (1.0-4.8); Monocytes # (M) 1.04 k/uL (0-1.0); Neutrophils # (M) 11.44 k/uL (1.3-7.7); Neutrophils % (M) 88 %; Nucleated Red Blood Cells 0 /100 WBC (0-0); Total Cells Counted 100
[2023-05-19 05:52] LABS: Poikilocytosis (M) Present
[2023-05-19 05:53] LABS: Platelet Count 84 k/uL (150-450)
[2023-05-19 05:59] LABS: Glucose,Whole Blood 132 mg/dL (70-110)
--- NOTE | 2023-05-19 10:37 | P.PN ---
Subjective Progress Note Date: 05/19/23 Hospital Course: Patient is an 82-year-old female with known cirrhosis, coronary artery disease status post stenting, chronic systolic congestive heart failure with ejection fraction 45%, hypertension, dyslipidemia, chronic pancytopenia with ITP who initially presented to the emergency department with chest pain and shortness of breath. In the ER she underwent extensive evaluation. On arrival she was tachycardic and tachypneic but saturating well on room air. EKG demonstrated sinus tachycardia with known left bundle branch block. Chest x-ray showed pulmonary vascular congestion. She subsequently underwent CT of the aorta which demonstrated striated left thyroid mass, bilateral pleural effusions, T7 and 8 compression fractures, left posterior eighth rib fracture, fracture of the left scapula, moderately enlarged heart, no signs of aortic rupture. Labs were remarkable for WBC count 1.6, hemoglobin 11.3, platelet count 41, INR 1.3, sodium 131, BUN 33, creatinine 1.19, total bili 4.2, AST 44, troponin 0.064 and proBNP 2360. Her troponin continued to uptrend. Cardiology was consulted and felt this was a type II NSTEMI, no further testing warrented. Echocardiogram showed mild LV systolic function decrease EF 45%, severely enlarged left atrium. Orthopedic surgery was consulted. Patient did get slightly more encephalopathic, and had low blood sugars, previous urinalysis was positive, urine culture was positive for ESBL. Repeat urinalysis shows a dirty sample. ID was consulted and patient placed on IV antibiotics, ertapenem. Patient also developed oliguric SCOOTER. A CT face showed neck mass of 3 x 4 cm and right maxillary inflammatory changes. ENT and maxillofacial surgery were consulted. ENT recommended IR consult and after review, radiology deferred this procedure d ue to stable imaging/finding of left neck mass/thyroid mass from prior imaging. Maxillofacial surgery took patient for dental extraction with abscess drainage of the right mandible. Patient required transfer to the ICU on 05/07 for septic shock requiring vasopressor. On 05/12/2023 patient became more encephalopathic with worsening hypercapnic respiratory failure, increasing pressors requirements and then he became oliguric. She was subsequently intubated, started on vasopressin, also had dialysis catheter placed and started on dialysis.By 05/17 patient has been off of sedation for over 3 days, with minimal improvement in mental status. Plan is for trach and peg and surgery was consulted. Subjective: Pts pressor requirement is 0.09 again. She does appear to have some response to commands, wiggling feet, opens eyes to voice. Plan is likely for T+P after discussing with pulmonology and family. Family would like to first discuss this with general surgery before proceeding with T+P. Vitals Signs Reviewed. General: intubated, sedated HEENT: normocephalic, atraumatic, no tracheal deviation Respiratory: symmetric chest rise, no cyanosis, ventilator dependent CVS: perfusing all extremities, no distal gangrene, bilateral pitting edema GI: soft, ND : no SPT, no CVAT, bedoya is present Neuro: sedated Assessment/plan: Acute encephalopathy, multifactorial, hepatic and metabolic Septic Shock with with possible sources: - urinary tract infection, prior cultures growing ESBL -Dental abscess status post surgical I and D with tooth extraction Acute hypoxic and hypercapnic respiratory failure, now ventilator dependent Pleural effusions bilateral Liver cirrhosis Macrocytic anemia, thrombocytopenia in the setting of liver disease -Discussed management with pulmonology, continue to wean pressors, continue respiratory support, continue hemodialysis -Case discussed with infectious disease. Will continue with current treatment with daptomycin, Eraxis, and ertapenem. Will consider de-escalating antibiotics once vasopressor requirements have stabilized. -ertapenem 0.5 g IV daily, on daptomycin 400 mg IV every 48 hours, Eraxis 100 mg IV daily -Patient did have to go up on her norepinephrine during dialysis. Continue with midodrine 10 mg 3 times daily. Continue to hold metoprolol 12.5 mg daily -Patient was on primidone for tremors, discontinued -Having frequent bowel movements and lactulose was decreased to 30 daily -Case discussed with surgical nurse practitioner. Will consider trach and PEG if family in agreement. Plan will be for 05/20/2023. Acute kidney injury now requiring hemodialysis Hyponatremia, hypervolemic - iHD per nephrology - appreciate Nephrology recs Anemia, thrombocytopenia - stable - follow CBC T7-8 compression fractures 30 to 40% Acute posterior eighth rib fracture -Orthopedic surgery signed off, patient not a surgical candidate -Continue with gabapentin 100 mg daily for pain control NSTEMI, likely type II New onset Afib with controlled ventricular rate History of CAD status post stent -Cardiology signed off, recommended medical management -Continue aspirin 81 mg -On amiodarone 200 gm BID for rate control, metoprolol 12.5 daily is being held, no anticoagulation due to thrombocytopenia Thyroid mass -Outpatient follow-up DVT prophylaxis: Heparin Anticipated discharge date: Pending clinical course Anticipated discharge place: Pending clinical course This dictation was prepared using [employer] voice recognition software. Though every attempt is made to correct errors during dictation some may still exist. Objective - Vital Signs Vital signs: Vital Signs Temp 98.2 F 05/19/23 08:00 Pulse 84 05/19/23 10:00 Resp 15 05/19/23 10:00 BP 143/65 05/18/23 11:53 Pulse Ox 100 05/19/23 10:00 FiO2 28 05/19/23 08:06 Intake & Output 05/18/23 05/19/23 05/19/23 18:59 06:59 18:59 Intake Total 1349.159 188 187 Output Total 3430 113 0 Balance -2080.841 75 187 Weight 92 kg Intake: IV 169 143 52 .9 kvo 130 110 40 Arterial Pressure Bag NS 39 33 12 0.9% Intake, IV Titration 75.159 Amount Norepinephrine 8 mg In 75.159 Sodium Chloride 0.9% 250 ml @ 0.03 MCG/KG/MIN 5. 759 mls/hr IV .Q24H [facility] Rx#:[id number] Tube Feeding 675 45 135 Hemodialysis 400 Other 30 Output: Urine 30 63 0 Stool 50 Hemodialysis 3400 Other: Voiding Method Indwelling Catheter Indwelling Catheter Indwelling Catheter ABP, PAP, CO, CI - Last Documented Arterial Blood Pressure 131/43 - Labs CBC & Chem 7: 05/19/23 04:51 05/19/23 04:51 Labs: Abnormal Lab Results - Last 24 Hours (Table) 05/18/23 05/18/23 05/19/23 Range/Units 12:02 17:43 00:57 WBC (3.8-10.6) k/uL RBC (3.80-5.40) m/uL Hgb (11.4-16.0) gm/dL Hct (34.0-46.0) % MCV (80.0-100.0) fL RDW (11.5-15.5) % Plt Count (150-450) k/uL Neutrophils # (Manual) (1.3-7.7) k/uL Lymphocytes # (Manual) (1.0-4.8) k/uL Monocytes # (Manual) (0-1.0) k/uL Macrocytosis ABG HCO3 (21-25) mmol/L ABG Total CO2 (19-24) mmol/L ABG O2 Saturation (94-97) % Sodium (137-145) mmol/L BUN (7-17) mg/dL Creatinine (0.52-1.04) mg/dL Glucose (74-99) mg/dL POC Glucose (mg/dL) 125 H 146 H 163 H (70-110) mg/dL Calcium (8.4-10.2) mg/dL 05/19/23 05/19/23 05/19/23 Range/Units 04:51 04:51 05:38 WBC 13.0 H (3.8-10.6) k/uL RBC 2.87 L (3.80-5.40) m/uL Hgb 10.0 L (11.4-16.0) gm/dL Hct 30.1 L (34.0-46.0) % MCV 105.0 H (80.0-100.0) fL RDW 20.7 H (11.5-15.5) % Plt Count 84 L (150-450) k/uL Neutrophils # (Manual) 11.44 H (1.3-7.7) k/uL Lymphocytes # (Manual) 0.52 L (1.0-4.8) k/uL Monocytes # (Manual) 1.04 H (0-1.0) k/uL Macrocytosis Marked A ABG HCO3 30 H (21-25) mmol/L ABG Total CO2 31 H (19-24) mmol/L ABG O2 Saturation 99.0 H (94-97) % Sodium 130 L (137-145) mmol/L BUN 28 H (7-17) mg/dL Creatinine 1.36 H (0.52-1.04) mg/dL Glucose 133 H (74-99) mg/dL POC Glucose (mg/dL) (70-110) mg/dL Calcium 7.5 L (8.4-10.2) mg/dL 05/19/23 Range/Units 05:57 WBC (3.8-10.6) k/uL RBC (3.80-5.40) m/uL Hgb (11.4-16.0) gm/dL Hct (34.0-46.0) % MCV (80.0-100.0) fL RDW (11.5-15.5) % Plt Count (150-450) k/uL Neutrophils # (Manual) (1.3-7.7) k/uL Lymphocytes # (Manual) (1.0-4.8) k/uL Monocytes # (Manual) (0-1.0) k/uL Macrocytosis ABG HCO3 (21-25) mmol/L ABG Total CO2 (19-24) mmol/L ABG O2 Saturation (94-97) % Sodium (137-145) mmol/L BUN (7-17) mg/dL Creatinine (0.52-1.04) mg/dL Glucose (74-99) mg/dL POC Glucose (mg/dL) 132 H (70-110) mg/dL Calcium (8.4-10.2) mg/dL
--- NOTE | 2023-05-19 11:32 | XR ---
EXAMINATION TYPE: XR chest 1V portable DATE OF EXAM: 05/19/2023 Comparison: 05/18/2023 Clinical History: 82-year-old female mechanical ventilation Findings: Tip 1.5 cm from the lizzie. NG tube courses below the diaphragm. Right IJ CVC tip upper right atrium. Left IJ CVC tip of right atrium. Heart mildly enlarged. Ongoing interstitial densities and bibasilar opacities. Impression: 1. Note ET tube tip 1.5 cm from the lizzie. This could be pulled back 1.5 cm. 2. Ongoing small to moderate bilateral pleural effusions with adjacent atelectasis and/or consolidati on. Correlate for underlying CHF with pulmonary vascular congestion.
[2023-05-19 11:54] LABS: Glucose,Whole Blood 140 mg/dL (70-110)
[2023-05-19] MEDS: ACETAMINOPHEN TAB 325 MG TAB PO PRN (11:58)
--- NOTE | 2023-05-19 12:16 | P.PN ---
Subjective Patient is seen for follow-up for acute kidney injury. Started hemodialysis on May 11, 2023 for severe volume overload and poor urine output. Patient is currently on the vent. FiO2 at 25%. Maintained on levo fed at 0.08 g UF off 21 L over the last 1 week Patient is not as awake today. Objective - Vital Signs Vital signs: Vital Signs Temp 100.0 F H 05/19/23 12:00 Pulse 66 05/19/23 12:00 Resp 18 05/19/23 12:00 BP 143/65 05/18/23 11:53 Pulse Ox 100 05/19/23 12:00 FiO2 28 05/19/23 12:00 Intake & Output 05/18/23 05/19/23 05/19/23 18:59 06:59 18:59 Intake Total 1349.159 188 348 Output Total 3430 113 0 Balance -2080.841 75 348 Weight 92 kg Intake: IV 169 143 78 .9 kvo 130 110 60 Arterial Pressure Bag NS 39 33 18 0.9% Intake, IV Titration 75.159 Amount Norepinephrine 8 mg In 75.159 Sodium Chloride 0.9% 250 ml @ 0.03 MCG/KG/MIN 5. 759 mls/hr IV .Q24H [facility] Rx#:[id number] Tube Feeding 675 45 270 Hemodialysis 400 Other 30 Output: Urine 30 63 0 Stool 50 Hemodialysis 3400 Other: Voiding Method Indwelling Catheter Indwelling Catheter Indwelling Catheter ABP, PAP, CO, CI - Last Documented Arterial Blood Pressure 121/38 - Exam Patient is on the vent Does not follow commands Examination of the heart S1 and S2 Examination of the lungs shows bilateral breath sounds are heard Abdomen is soft, distended with significant edema noted Examination of lower extremities shows 3-4+ edema - Labs CBC & Chem 7: 05/19/23 04:51 05/19/23 04:51 Labs: Abnormal Lab Results - Last 24 Hours (Table) 05/18/23 05/19/23 05/19/23 Range/Units 17:43 00:57 04:51 WBC 13.0 H (3.8-10.6) k/uL RBC 2.87 L (3.80-5.40) m/uL Hgb 10.0 L (11.4-16.0) gm/dL Hct 30.1 L (34.0-46.0) % MCV 105.0 H (80.0-100.0) fL RDW 20.7 H (11.5-15.5) % Plt Count 84 L (150-450) k/uL Neutrophils # (Manual) 11.44 H (1.3-7.7) k/uL Lymphocytes # (Manual) 0.52 L (1.0-4.8) k/uL Monocytes # (Manual) 1.04 H (0-1.0) k/uL Macrocytosis Marked A ABG HCO3 (21-25) mmol/L ABG Total CO2 (19-24) mmol/L ABG O2 Saturation (94-97) % Sodium (137-145) mmol/L BUN (7-17) mg/dL Creatinine (0.52-1.04) mg/dL Glucose (74-99) mg/dL POC Glucose (mg/dL) 146 H 163 H (70-110) mg/dL Calcium (8.4-10.2) mg/dL 05/19/23 05/19/23 05/19/23 Range/Units 04:51 05:38 05:57 WBC (3.8-10.6) k/uL RBC (3.80-5.40) m/uL Hgb (11.4-16.0) gm/dL Hct (34.0-46.0) % MCV (80.0-100.0) fL RDW (11.5-15.5) % Plt Count (150-450) k/uL Neutrophils # (Manual) (1.3-7.7) k/uL Lymphocytes # (Manual) (1.0-4.8) k/uL Monocytes # (Manual) (0-1.0) k/uL Macrocytosis ABG HCO3 30 H (21-25) mmol/L ABG Total CO2 31 H (19-24) mmol/L ABG O2 Saturation 99.0 H (94-97) % Sodium 130 L (137-145) mmol/L BUN 28 H (7-17) mg/dL Creatinine 1.36 H (0.52-1.04) mg/dL Glucose 133 H (74-99) mg/dL POC Glucose (mg/dL) 132 H (70-110) mg/dL Calcium 7.5 L (8.4-10.2) mg/dL 05/19/23 Range/Units 11:52 WBC (3.8-10.6) k/uL RBC (3.80-5.40) m/uL Hgb (11.4-16.0) gm/dL Hct (34.0-46.0) % MCV (80.0-100.0) fL RDW (11.5-15.5) % Plt Count (150-450) k/uL Neutrophils # (Manual) (1.3-7.7) k/uL Lymphocytes # (Manual) (1.0-4.8) k/uL Monocytes # (Manual) (0-1.0) k/uL Macrocytosis ABG HCO3 (21-25) mmol/L ABG Total CO2 (19-24) mmol/L ABG O2 Saturation (94-97) % Sodium (137-145) mmol/L BUN (7-17) mg/dL Creatinine (0.52-1.04) mg/dL Glucose (74-99) mg/dL POC Glucose (mg/dL) 140 H (70-110) mg/dL Calcium (8.4-10.2) mg/dL Assessment and Plan Assessment: 1. Acute kidney injury, oliguric ATN secondary to hypotension and sepsis. UA shows 1+ protein and trace blood and WBCs 16. Ultrasound of the kidneys shows right kidney 10.0 cm left kidney 8.4 cm no hydronephrosis noted. Started hemodialysis on 05/11/2023 due to severe volume overload and poor urine output. 2. Non-gap metabolic acidosis secondary to acute kidney injury 3. Hyperkalemia associated with acute kidney injury, resolved 4. Non-ST elevation IN 5. Sepsis with source most likely related to UTI as previous urine culture on 04/26/2023 showed ESBL E. coli versus the dental abscess 6. Encephalopathy , metabolic 7. Acute hypoxic respiratory failure currently on the vent 8. Severe volume overload 9. Hypokalemia status post replacement Plan: UF only today with goal UF 2-3 L as tolerated
--- NOTE | 2023-05-19 12:27 | P.PN ---
Subjective Progress Note Date: 05/18/23 Principal diagnosis: Reason for follow-up is leukocytosis and UTI Patient is a 82-year-old female with a past medical history significant for hypertension hyperlipidemia thrombocytopenia cirrhosis of the liver HI osteoarthritis patient was brought into the ER for evaluation of chest pain patient subsequently did have significant worsening of her mentation did have a positive UA concerning for possible component of UTI, with subsequent workup that shows evidence of dental abscess especially to tooth #29, patient did have extraction of tooth #29 along with drainage of the abscess completed on 05/09/2023.Patient did have dialysis catheter placement evening of 05/11/2023 subsequently patient did have a worsening respiratory status ended up getting intubated on 05/11/2023, the patient did get a dialysis catheter on 05/11/2023 and has been started on dialysis On today's visit that is 05/18/2023,the patient remains to be afebrile, patient remains to be intubated on the vent, FiO2 is down to 28% no significant purulent secretions through the ET, patient required low-dose pressor support no other changes reported by the nursing staff. Patient white count is up to 18,000, creatinine is 1.18 Objective - Vital Signs Vital signs: Vital Signs Temp 98.3 F 05/18/23 11:53 Pulse 89 05/18/23 11:53 Resp 26 H 05/18/23 11:53 BP 143/65 05/18/23 11:53 Pulse Ox 100 05/18/23 10:45 FiO2 28 05/18/23 08:29 Intake & Output 05/17/23 05/18/23 05/18/23 18:59 06:59 18:59 Intake Total 980.744 731.097 731.102 Output Total 885 11 0791 Balance 145.744 721.097 -2668.898 Weight 94.2 kg 92.2 kg Intake: IV 369 143 52 .9 kvo 130 110 40 Anidulafungin 100 mg In 100 Sodium Chloride 0.9% 100 ml @ 84 mls/hr IVPB DAILY @1300 [facility] Rx#:[id number] Arterial Pressure Bag NS 39 33 12 0.9% DAPTOmycin 400 mg In 50 Sodium Chloride 0.9% 50 ml @ 100 mls/hr IVPB Q48H [facility] Rx#:[id number] Ertapenem 0.5 gm In 50 Sodium Chloride 0.9% 50 ml @ 100 mls/hr IVPB DAILY [facility] Rx#:[id number] Intake, IV Titration .4 93.097 69.102 Amount Norepinephrine 8 mg In .4 93.097 69.102 Sodium Chloride 0.9% 250 ml @ 0.03 MCG/KG/MIN 5. 759 mls/hr IV .Q24H [facility] Rx#:[id number] Tube Feeding 122 495 180 Hemodialysis 400 400 Other 30 Output: Urine 35 10 0 Stool 400 Urine/Stool Mix 400 Hemodialysis 3400 Other: Voiding Method Indwelling Catheter Indwelling Catheter Indwelling Catheter ABP, PAP, CO, CI - Last Documented Arterial Blood Pressure 130/51 - Exam GENERAL DESCRIPTION: An elderly Female intubated on the vent RESPIRATORY SYSTEM: Unlabored breathing , decreased breath sounds at bases HEART: S1 S2 regular rate and rhythm , ABDOMEN: Soft , no tenderness EXTREMITIES: No edema feet - Labs CBC & Chem 7: 05/19/23 04:51 05/19/23 04:51 Labs: Abnormal Lab Results - Last 24 Hours (Table) 05/17/23 05/18/23 05/18/23 Range/Units 18:12 00:01 05:42 WBC 18.0 H (3.8-10.6) k/uL RBC 3.03 L (3.80-5.40) m/uL Hgb 10.4 L (11.4-16.0) gm/dL Hct 31.8 L (34.0-46.0) % MCV 105.1 H (80.0-100.0) fL RDW 20.3 H (11.5-15.5) % Plt Count 108 L (150-450) k/uL Neutrophils # 14.8 H (1.3-7.7) k/uL Lymphocytes # 0.8 L (1.0-4.8) k/uL Monocytes # 1.4 H (0-1.0) k/uL Macrocytosis Marked A ABG HCO3 (21-25) mmol/L ABG Total CO2 (19-24) mmol/L ABG O2 Saturation (94-97) % Sodium (137-145) mmol/L BUN (7-17) mg/dL Creatinine (0.52-1.04) mg/dL Glucose (74-99) mg/dL POC Glucose (mg/dL) 123 H 125 H (70-110) mg/dL Calcium (8.4-10.2) mg/dL Total Bilirubin (0.2-1.3) mg/dL AST (14-36) U/L Alkaline Phosphatase (38-126) U/L Total Protein (6.3-8.2) g/dL Albumin (3.5-5.0) g/dL 05/18/23 05/18/23 05/18/23 Range/Units 05:42 05:44 06:28 WBC (3.8-10.6) k/uL RBC (3.80-5.40) m/uL Hgb (11.4-16.0) gm/dL Hct (34.0-46.0) % MCV (80.0-100.0) fL RDW (11.5-15.5) % Plt Count (150-450) k/uL Neutrophils # (1.3-7.7) k/uL Lymphocytes # (1.0-4.8) k/uL Monocytes # (0-1.0) k/uL Macrocytosis ABG HCO3 29 H (21-25) mmol/L ABG Total CO2 30 H (19-24) mmol/L ABG O2 Saturation 98.1 H (94-97) % Sodium 133 L (137-145) mmol/L BUN 24 H (7-17) mg/dL Creatinine 1.18 H (0.52-1.04) mg/dL Glucose 126 H (74-99) mg/dL POC Glucose (mg/dL) 135 H (70-110) mg/dL Calcium 7.7 L (8.4-10.2) mg/dL Total Bilirubin 1.7 H (0.2-1.3) mg/dL AST 56 H (14-36) U/L Alkaline Phosphatase 198 H (38-126) U/L Total Protein 4.8 L (6.3-8.2) g/dL Albumin 1.9 L (3.5-5.0) g/dL 05/18/23 Range/Units 12:02 WBC (3.8-10.6) k/uL RBC (3.80-5.40) m/uL Hgb (11.4-16.0) gm/dL Hct (34.0-46.0) % MCV (80.0-100.0) fL RDW (11.5-15.5) % Plt Count (150-450) k/uL Neutrophils # (1.3-7.7) k/uL Lymphocytes # (1.0-4.8) k/uL Monocytes # (0-1.0) k/uL Macrocytosis ABG HCO3 (21-25) mmol/L ABG Total CO2 (19-24) mmol/L ABG O2 Saturation (94-97) % Sodium (137-145) mmol/L BUN (7-17) mg/dL Creatinine (0.52-1.04) mg/dL Glucose (74-99) mg/dL POC Glucose (mg/dL) 125 H (70-110) mg/dL Calcium (8.4-10.2) mg/dL Total Bilirubin (0.2-1.3) mg/dL AST (14-36) U/L Alkaline Phosphatase (38-126) U/L Total Protein (6.3-8.2) g/dL Albumin (3.5-5.0) g/dL Assessment and Plan (1) Leukocytosis Current Visit: Yes Status: Acute Code(s): D72.829 - ELEVATED WHITE BLOOD CELL COUNT, UNSPECIFIED SNOMED Code(s): 229177601 (2) Allergy to multiple antibiotics Current Visit: Yes Status: Acute Code(s): Z88.1 - ALLERGY STATUS TO OTHER ANTIBIOTIC AGENTS SNOMED Code(s): 820041443 (3) Urinary tract infection Current Visit: No Status: Acute Code(s): N39.0 - URINARY TRACT INFECTION, SITE NOT SPECIFIED SNOMED Code(s): 38689593 Plan: 1patient with sepsis, source likely infected tooth and abscess patient has been evaluated by oral surgery and plan is status post extraction of tooth #29 and drainage of the abscess cultures are currently growing Staphylococcus hemolyticus and Sabrina 2-patient is afebrile, slight worsening of the white count 14.8 however repeat culture remains to be negative for resistant pathogen 3- patient is afebrile however noticed to have slight worsening of the white count that we will monitor closely for now continue with Invanz daptomycin and Eraxis Dictation was produced using [employer] software. please excuse any grammatical, word or spelling errors. Time with Patient: Less than 30
--- NOTE | 2023-05-19 12:28 | P.PN ---
Subjective Progress Note Date: 05/19/23 Principal diagnosis: Reason for follow-up is leukocytosis and UTI Patient is a 82-year-old female with a past medical history significant for hypertension hyperlipidemia thrombocytopenia cirrhosis of the liver DE osteoarthritis patient was brought into the ER for evaluation of chest pain patient subsequently did have significant worsening of her mentation did have a positive UA concerning for possible component of UTI, with subsequent workup that shows evidence of dental abscess especially to tooth #29, patient did have extraction of tooth #29 along with drainage of the abscess completed on 05/09/2023.Patient did have dialysis catheter placement evening of 05/11/2023 subsequently patient did have a worsening respiratory status ended up getting intubated on 05/11/2023, the patient did get a dialysis catheter on 05/11/2023 and has been started on dialysis On today's visit that is 05/19/2023, the patient started running a low-grade fever this morning with a Tmax of 100 F patient remains to be intubated on the vent FiO2 stable at 28% no significant purulent secretions through the ET or in the changes reported by the nursing staff mentation remains to be show. Patient white count is down to 13,000 today, creatinine is 1.36, repeat culture has been negative so far Objective - Vital Signs Vital signs: Vital Signs Temp 100.0 F H 05/19/23 12:00 Pulse 66 05/19/23 12:00 Resp 18 05/19/23 12:00 BP 143/65 05/18/23 11:53 Pulse Ox 100 05/19/23 12:00 FiO2 28 05/19/23 12:00 Intake & Output 05/18/23 05/19/23 05/19/23 18:59 06:59 18:59 Intake Total 1349.159 188 348 Output Total 3430 113 0 Balance -2080.841 75 348 Weight 92 kg Intake: IV 169 143 78 .9 kvo 130 110 60 Arterial Pressure Bag NS 39 33 18 0.9% Intake, IV Titration 75.159 Amount Norepinephrine 8 mg In 75.159 Sodium Chloride 0.9% 250 ml @ 0.03 MCG/KG/MIN 5. 759 mls/hr IV .Q24H [facility] Rx#:[id number] Tube Feeding 675 45 270 Hemodialysis 400 Other 30 Output: Urine 30 63 0 Stool 50 Hemodialysis 3400 Other: Voiding Method Indwelling Catheter Indwelling Catheter Indwelling Catheter ABP, PAP, CO, CI - Last Documented Arterial Blood Pressure 121/38 - Exam GENERAL DESCRIPTION: An elderly Female intubated on the vent RESPIRATORY SYSTEM: Unlabored breathing , decreased breath sounds at bases HEART: S1 S2 regular rate and rhythm , ABDOMEN: Soft , no tenderness EXTREMITIES: No edema feet - Labs CBC & Chem 7: 05/19/23 04:51 05/19/23 04:51 Labs: Abnormal Lab Results - Last 24 Hours (Table) 05/18/23 05/19/23 05/19/23 Range/Units 17:43 00:57 04:51 WBC 13.0 H (3.8-10.6) k/uL RBC 2.87 L (3.80-5.40) m/uL Hgb 10.0 L (11.4-16.0) gm/dL Hct 30.1 L (34.0-46.0) % MCV 105.0 H (80.0-100.0) fL RDW 20.7 H (11.5-15.5) % Plt Count 84 L (150-450) k/uL Neutrophils # (Manual) 11.44 H (1.3-7.7) k/uL Lymphocytes # (Manual) 0.52 L (1.0-4.8) k/uL Monocytes # (Manual) 1.04 H (0-1.0) k/uL Macrocytosis Marked A ABG HCO3 (21-25) mmol/L ABG Total CO2 (19-24) mmol/L ABG O2 Saturation (94-97) % Sodium (137-145) mmol/L BUN (7-17) mg/dL Creatinine (0.52-1.04) mg/dL Glucose (74-99) mg/dL POC Glucose (mg/dL) 146 H 163 H (70-110) mg/dL Calcium (8.4-10.2) mg/dL 05/19/23 05/19/23 05/19/23 Range/Units 04:51 05:38 05:57 WBC (3.8-10.6) k/uL RBC (3.80-5.40) m/uL Hgb (11.4-16.0) gm/dL Hct (34.0-46.0) % MCV (80.0-100.0) fL RDW (11.5-15.5) % Plt Count (150-450) k/uL Neutrophils # (Manual) (1.3-7.7) k/uL Lymphocytes # (Manual) (1.0-4.8) k/uL Monocytes # (Manual) (0-1.0) k/uL Macrocytosis ABG HCO3 30 H (21-25) mmol/L ABG Total CO2 31 H (19-24) mmol/L ABG O2 Saturation 99.0 H (94-97) % Sodium 130 L (137-145) mmol/L BUN 28 H (7-17) mg/dL Creatinine 1.36 H (0.52-1.04) mg/dL Glucose 133 H (74-99) mg/dL POC Glucose (mg/dL) 132 H (70-110) mg/dL Calcium 7.5 L (8.4-10.2) mg/dL 05/19/23 Range/Units 11:52 WBC (3.8-10.6) k/uL RBC (3.80-5.40) m/uL Hgb (11.4-16.0) gm/dL Hct (34.0-46.0) % MCV (80.0-100.0) fL RDW (11.5-15.5) % Plt Count (150-450) k/uL Neutrophils # (Manual) (1.3-7.7) k/uL Lymphocytes # (Manual) (1.0-4.8) k/uL Monocytes # (Manual) (0-1.0) k/uL Macrocytosis ABG HCO3 (21-25) mmol/L ABG Total CO2 (19-24) mmol/L ABG O2 Saturation (94-97) % Sodium (137-145) mmol/L BUN (7-17) mg/dL Creatinine (0.52-1.04) mg/dL Glucose (74-99) mg/dL POC Glucose (mg/dL) 140 H (70-110) mg/dL Calcium (8.4-10.2) mg/dL Assessment and Plan (1) Leukocytosis Current Visit: Yes Status: Acute Code(s): D72.829 - ELEVATED WHITE BLOOD CELL COUNT, UNSPECIFIED SNOMED Code(s): 751793914 (2) Allergy to multiple antibiotics Current Visit: Yes Status: Acute Code(s): Z88.1 - ALLERGY STATUS TO OTHER ANTIBIOTIC AGENTS SNOMED Code(s): 254192325 (3) Urinary tract infection Current Visit: No Status: Acute Code(s): N39.0 - URINARY TRACT INFECTION, SITE NOT SPECIFIED SNOMED Code(s): 99103182 Plan: 1patient with sepsis, source likely infected tooth and abscess patient has been evaluated by oral surgery and plan is status post extraction of tooth #29 and drainage of the abscess cultures are currently growing Staphylococcus hemolyticus and Sabrina 2-patient is afebrile, slight worsening of the white count 14.8 however repeat culture remains to be negative for resistant pathogen 3- patient white count is trending down however the patient was noticed to have new low-grade fever I will repeat the cultures and continue with Invanz daptomycin and Eraxis adjusting further on the basis of clinical condition and repeat cultures Dictation was produced using [employer] dictation software. please excuse any grammatical, word or spelling errors. Time with Patient: Less than 30
--- NOTE | 2023-05-19 13:11 | P.PN ---
Subjective Progress Note Date: 05/19/23 CHIEF COMPLAINT: Chest pain HISTORY OF PRESENT ILLNESS: patient remains in the ICU on mechanical ventila tion. Difficulty to wean from vent. She is off of sedation. She is awake. Dr. Sneed did meet with family at bedside to discuss tracheostomy and PEG tube placement. Awaiting family's decision regarding tracheostomy and PEG tube. Patient did have a low-grade temp of 100. WBC 18 down to 13 PHYSICAL EXAM: VITAL SIGNS: Reviewed. GENERAL: no acute distress. ABDOMEN: Soft. Nondistended. Nontender. NEUROLOGIC: Awake ASSESSMENT: 1. Acute on chronic hypercapnic respiratory failure with difficulty weaning from vent 2. Severe protein calorie malnutrition PLAN: -Patient is tentatively scheduled for tracheostomy and PEG tube placement tomorrow. Awaiting family's decision -Hold tube feeds after midnight -Hold subcu heparin in a.m. Physician [employer] note has been reviewed by physician. Signing provider agrees with the documented findings, assessment, and plan of care. Objective - Vital Signs Vital signs: Vital Signs Temp 100.0 F H 05/19/23 12:00 Pulse 66 05/19/23 12:00 Resp 18 05/19/23 12:00 BP 143/65 05/18/23 11:53 Pulse Ox 100 05/19/23 12:00 FiO2 28 05/19/23 12:00 Intake & Output 05/18/23 05/19/23 05/19/23 18:59 06:59 18:59 Intake Total 1349.159 188 348 Output Total 3430 113 0 Balance -2080.841 75 348 Weight 92 kg Intake: IV 169 143 78 .9 kvo 130 110 60 Arterial Pressure Bag NS 39 33 18 0.9% Intake, IV Titration 75.159 Amount Norepinephrine 8 mg In 75.159 Sodium Chloride 0.9% 250 ml @ 0.03 MCG/KG/MIN 5. 759 mls/hr IV .Q24H [facility] Rx#:[id number] Tube Feeding 675 45 270 Hemodialysis 400 Other 30 Output: Urine 30 63 0 Stool 50 Hemodialysis 3400 Other: Voiding Method Indwelling Catheter Indwelling Catheter Indwelling Catheter ABP, PAP, CO, CI - Last Documented Arterial Blood Pressure 121/38 - Labs CBC & Chem 7: 05/19/23 04:51 05/19/23 04:51 Labs: Abnormal Lab Results - Last 24 Hours (Table) 05/18/23 05/19/23 05/19/23 Range/Units 17:43 00:57 04:51 WBC 13.0 H (3.8-10.6) k/uL RBC 2.87 L (3.80-5.40) m/uL Hgb 10.0 L (11.4-16.0) gm/dL Hct 30.1 L (34.0-46.0) % MCV 105.0 H (80.0-100.0) fL RDW 20.7 H (11.5-15.5) % Plt Count 84 L (150-450) k/uL Neutrophils # (Manual) 11.44 H (1.3-7.7) k/uL Lymphocytes # (Manual) 0.52 L (1.0-4.8) k/uL Monocytes # (Manual) 1.04 H (0-1.0) k/uL Macrocytosis Marked A ABG HCO3 (21-25) mmol/L ABG Total CO2 (19-24) mmol/L ABG O2 Saturation (94-97) % Sodium (137-145) mmol/L BUN (7-17) mg/dL Creatinine (0.52-1.04) mg/dL Glucose (74-99) mg/dL POC Glucose (mg/dL) 146 H 163 H (70-110) mg/dL Calcium (8.4-10.2) mg/dL 05/19/23 05/19/23 05/19/23 Range/Units 04:51 05:38 05:57 WBC (3.8-10.6) k/uL RBC (3.80-5.40) m/uL Hgb (11.4-16.0) gm/dL Hct (34.0-46.0) % MCV (80.0-100.0) fL RDW (11.5-15.5) % Plt Count (150-450) k/uL Neutrophils # (Manual) (1.3-7.7) k/uL Lymphocytes # (Manual) (1.0-4.8) k/uL Monocytes # (Manual) (0-1.0) k/uL Macrocytosis ABG HCO3 30 H (21-25) mmol/L ABG Total CO2 31 H (19-24) mmol/L ABG O2 Saturation 99.0 H (94-97) % Sodium 130 L (137-145) mmol/L BUN 28 H (7-17) mg/dL Creatinine 1.36 H (0.52-1.04) mg/dL Glucose 133 H (74-99) mg/dL POC Glucose (mg/dL) 132 H (70-110) mg/dL Calcium 7.5 L (8.4-10.2) mg/dL 05/19/23 Range/Units 11:52 WBC (3.8-10.6) k/uL RBC (3.80-5.40) m/uL Hgb (11.4-16.0) gm/dL Hct (34.0-46.0) % MCV (80.0-100.0) fL RDW (11.5-15.5) % Plt Count (150-450) k/uL Neutrophils # (Manual) (1.3-7.7) k/uL Lymphocytes # (Manual) (1.0-4.8) k/uL Monocytes # (Manual) (0-1.0) k/uL Macrocytosis ABG HCO3 (21-25) mmol/L ABG Total CO2 (19-24) mmol/L ABG O2 Saturation (94-97) % Sodium (137-145) mmol/L BUN (7-17) mg/dL Creatinine (0.52-1.04) mg/dL Glucose (74-99) mg/dL POC Glucose (mg/dL) 140 H (70-110) mg/dL Calcium (8.4-10.2) mg/dL
--- NOTE | 2023-05-19 13:51 | P.PN ---
Subjective Progress Note Date: 05/19/23 Principal diagnosis: Acute on chronic hypoxic and hypercapnic respiratory failure secondary to pulmonary edema/fluid overload and bilateral pleural effusion This is an 82-year-old female patient with a history of liver cirrhosis, pancytopenia, coronary artery disease with previous stent placement, compression fracture of T7 and T8, acute left posterior eighth rib fracture, thyroid mass, new onset atrial fibrillation and non-ST segment elevation myocardial infarction. She had been admitted back on 04/29/2023 with chest pain and shortness of breath. Echocardiogram revealed impaired left ventricular systolic function with ejection fraction 45%. She was being cared for on the selective care unit. Last evening at a approximately 1145 and rapid response team was called due to hypotension with blood pressure 70 over 40s. She received 100 mL of fluid resuscitation and was transferred to the intensive care unit and initiated on norepinephrine. She is seen today in consultation. She is lethargic. Minimally responsive. She had been calling out in pain earlier. When she was repositioned she settled down. This is felt to be secondary to her compression fractures and rib fractures. He does have a stage II decubitus ulcer. She also has severe suspected neuropathy of the bilateral lower extremities. She is maintaining good O2 saturation in the mid 90s on 2 L/min per nasal cannula. 0.08 mcg/kg/min. She has normal staying at 80 MLS per hour. White count 11.9. Platelets 55,000. Sodium 130. Potassium 4.9. Bicarb 33. BUN 74. Creatinine 2.78. Glucose 137. Urine culture reveals no growth. Currently on ertapenem. X-ray reveals cardiomegaly with mild central vascular congestion and interstitial opacities suggesting edema. Small to moderate bibasilar pleural effusions with adjacent atelectasis. On today's evaluation of 05/09/2023, the patient is being seen for a follow-up. As mentioned, the patient was transferred to the intensive care unit yesterday because of hypotension. She has multiple medical problems including coronary artery disease and previous coronary intervention and stenting and the patient also has liver cirrhosis, and she did encounter a new onset atrial fibrillation. At the same time, the patient is suspected to be septic. The patient has been treated with IV fluids. The patient continues to be on pressors and the patient is currently on norepinephrine running 0.14 mcg/kg/min. IV fluids are running in the rate of 50 cc an hour of normal saline. The patient is currently on IV Invanz. The white cell count today is 11.1. Hemoglobin is at 11 and a platelet count is at 55. Note that the patient has chronic thrombocytopenia related to her chronic liver disease. She also had an acute kidney injury and the cre atinine peaked at 3 and currently is downtrending down to 2.65. Potassium level today is at 5.8 with a sodium level of 132. LFTs are abnormal with an alkaline phosphatase of 314, AST of 51 and ALT of 21. Her procalcitonin level was at 2.53 and her free T4 was 1.36 with a TSH of 5.9. UA was abnormal suspicious for an underlying urinary tract infection and cultures are still pending for now. Meanwhile, the CAT scan of the abdomen and pelvis that was obtained on 05/04/2023 showed no evidence of any acute intra-abdominal process. Nodular contour of the liver was suggestive of liver cirrhosis and the patient had signs of portal hypertension and cardiomegaly and pulm vascular congestion. The CAT scan of the face that was done on 05/04/2023 showed a soft tissue masslike area in the inferior left neck measuring 47 x 36 mm in size and inflammatory changes along the right mandible without an organizing collection. A head and neck abscess cannot be completely ruled out at this point in time. Neurologically, the patient is encephalopathic. She has episodes of crying and yelling and she r emains altered. Her the serum ammonia level was 17. The patient remains on lactulose which is unfortunately being given through the rectal source which is causing significant amount of contamination. At the same time, cardiac rhythm is currently controlled and she remains in atrial fibrillation. She remains on amiodarone 200 mg p.o. twice a day. The Toprol has been placed on hold based on her underlying hypotension. Her echocardiogram from 04/30/2023 showed a ejection fraction of 45%, mild RV dilatation, mild mitral regurgitation, no other significant abnormalities noted. On today's evaluation of 05/10/2023, the patient is being seen for a follow-up. The patient is in the intensive care unit for sepsis and hypotension. Note that the patient underwent an evaluation by the oral surgeon yesterday and the patient was found to have a dental abscess tooth #[id number] and surgical extraction of the tooth was done and cultures were sent. At the same time, we are suspecting an underlying urine tract infection as another source of sepsis the patient and the patient is currently on IV Invanz as the patient has had previous ESBL producing E. coli in her urine based on the culture that was obtained on 04/26/2023. The patient remains on pressors. She is on norepinephrine running at 0.15 mcg/kg/min. IV fluids are in the form of D5.9 at the rate of 50 cc an hour. Urine output is in order of 30 cc an hour and there is also interval improvement of creatinine which is down to 2.4 with a BUN of 78. Sodium levels at 133 with a potassium level of 5.2. The white cell count is at 10.2 with a hemoglobin of 10.4 and a platelet count of 85. Note that the patient has chronic thrombocytopenia related to her chronic liver disease. She is arousable. She is awake. She is on oxygen at 2 L with a pulse ox of 96%. On 05/11/2023, the patient is more lethargic compared to yesterday. There has been progressive worsening in her mentation and this has been noted throughout the day. In the morning, she was still arousable and later on during the day, the patient became quite obtunded. Based on that, the patient was given a stat CAT scan of the brain that showed no acute intracranial abnormalities. The patient's CAT scan of the brain showed Moderate bifrontal atrophy and old lacunar infarct in the left basal ganglia. There was also slightly heterogeneous appearance of the brainstem felt to be related to a prominent skull base artifact. Subsequently, the patient was given a blood gas that showed a pH of 7.11 with a pCO2 of 93 and pO2 117 and the patient's mental status is most like related to hypercapnic respiratory failure and CO2 narcosis. Chest x-ray that was done earlier this morning that showed cardiomegaly and pulm vascular congestion but the pleural fluid. Fluid balance has been +1 L over the past 24 hours and the patient has been persistently in a positive fluid balance and the patient has diffuse anasarca related to her liver failure and sepsis. The BUN is at 72 with a creatinine of 2.4 and sodium is at 136. WBC count is at 8.2 with a hemoglobin 9.8 and a platelet count of 76. She remains hypotensive. She remains on pressors and the patient is currently on norepinephrine running at 0.09 mcg/kg/min. Her pressor requirements are slightly improved compared to yesterday. She remains on D5 normal saline today stopped 50 cc an hour.. In terms of her cultures, the patient's oral culture is showing some anaerobic growth. She also has Sabrina albicans. Blood cultures were negative. Urine cultures also been negative. The patient remains on IV antibiotics and antibiotics has been modified to a combination of IV Eraxis, daptomycin and IV Invanz. on today's evaluation of 05/12/2023, I am seeing the patient for a follow-up. Events from yesterday were noted. The patient went into hypercapnic respiratory failure and she became altered and obtunded and based on that, and that intubating the patient and placed on mechanical ventilator for acute on chronic hypoxic and hypercapnic respiratory failure. Also, the patient was in significant fluid overload. Immediately postintubation, dialysis catheter was obtained and the patient was started on hemodialysis with ultrafiltration and a total of 2 L of fluid was removed yesterday. This morning, the patient remains intubated on the mechanical ventilator. She is currently on propofol running at 40 mcg/kg/min. She is on assist-control with rate of 26 with a tidal volume of 400 FiO2 40% with a PEEP of 5. Blood gas from this morning showed respiratory alkalosis with a pH of 7.58 and a pCO2 of 29 and pO2 of 77. Based on that, the respiratory rate was dropped down to 77. Chest x-ray from today showing cardiomegaly. There is bilateral pleural effusion worse on the right which is slightly improved compared to yesterday. ET tube is in a good location and the patient also has a triple-lumen catheter in her left IJ and a dialysis catheter in her right IJ. She is still hypotensive. Norepinephrine is running at 0.16 mcg/kg/min. The patient is also on physiologic dose of vasopressin A arterial line catheter was also inserted yesterday and her blood pressure is stable for now with a mean arterial pressure of around 80. Her cardiac rhythm is atrial fibrillation. In terms of the rest of the blood work, the patient has a white cell count of 12.2 with a hemoglobin 9.8 and a platelet count of 103. BUN is at 56 and the creatinine is up down to 1.7. Potassium is down to 4.5 and his sodium level is at 135. Her serum ammonia level is at 23. She continues to have significant amount of third spacing, peripheral edema and diffuse anasarca. In terms of her antibiotic coverage, the patient is currently on a combination of IV Invanz, daptomycin and Eraxis. Enteral feeding has not been started yet. On today's evaluation of 05/13/2023, the patient is being seen for a follow-up. The patient remains intubated on the mechanical ventilator. On today's evaluation, the patient is on propofol which is running at 40 mcg/kg/min. The patient is calm and comfortable and the patient is essentially centralized on the mechanical ventilator. On today's evaluation, the patient is on assist- control mode of mechanical ventilation and she is on a rate of 20, tidal volume of 400, FiO2 at 40% with a PEEP of 5. The chest x-ray is showing cardiomegaly and bilateral pleural effusions slightly improved and the ET tube is in a good location. The blood gas show a pH of 7.50 with a pCO2 of 35 and a pO2 of 118 and this was on FiO2 of 40%. No significant orotracheal secretions. The patient hemodynamically is still pressor dependent. She is currently on norepinephrine running at 0.2 mcg/kg/min and her norepinephrine dose is being titrated as the patient is undergoing hemodialysis and she is having variation and fluctuations in blood pressure. She is also on physiologic dose of vasopressin. No other hemodialysis was performed yesterday with a total of 2 point liters of ultrafiltration. Another session of hemodialysis being done today. The patient remains on Lasix 60 mg IV push every 12 hours. The fluid balance over the past 24 hours has been negative as the patient is making some urine output in the same time the patient is being dialyzed and ultrafiltrate it. Antibiotic coverage includes a combination of Invanz, Eraxis and daptomycin. Note that the patient had blood culture sent and the results are still pending for now. The cultures from the mouth and the right mandible were positive for staph hemolyticus and Sabrina albicans. The patient at the same ti me is in atrial fibrillation. The patient is on vital high-protein at the rate of 32 cc an hour and the patient seems to be tolerating her enteral feeding without any major difficulties. WBC count 11.7 with a hemoglobin 9.7 and a platelet count of 111. Sodium is at 132 with a potassium level of 3.7, BUN is 44 with a creatinine of 1.5 and a glucose of 154. LFTs are showing some mild elevation of the alkaline phosphatase at 218 and a total of 10 protein is at 4.5 with an albumin of 1.9. On 05/14/2023, the patient is being seen for a follow-up. Remains intubated on the mechanical ventilator. Sedation was discontinued yesterday and she has been off sedation for approximately 12 hours. She is sluggishly responsive to painful stimulation. Unable to communicate. Profoundly lethargic and sleepy. Most recent ammonia level was 2424 from yesterday. The patient remains on lactulose 30 g once a day and we are monitoring bowel movement activity on this patient. As mentioned earlier, the patient has liver cirrhosis, massive fluid overload, renal failure, respiratory failure requiring intubation mechanical ventilation and the patient is undergoing daily dialysis with ultrafiltration. Dialysis was done yesterday and approximately 2 L of fluid was removed. The goal for today is around 3 L. She continues to have diffuse anasarca, extensive edema in all 4 extremities, and the chest x-ray still showing bilateral pleural effusion which is essentially unchanged. While on the mechanical ventilator, she is on assist-control mode with rate of 14, tidal volume of 400, FiO2 40% with a PEEP of 5. Blood gas shows a pH of 7.58 with a pCO2 of 29 and pO2 of 77 and this was an FiO2 of 40%. Rest of the blood work and electrolytes show a sodium level of 135, potassium level is at 4.5, BUN is at 56 with a creatinine of 1.7. Potassium level is at 4.5. LFTs are normal with mild elevation of alkaline phosphatase at 240. Serum albumin is at 1.9 with a total protein of 4.4. She is afebrile. She remains on a combination of antibiotics. She is on IV Invanz, Eraxis and daptomycin. Hemodynamically, she is still requiring pressors and the patient is currently on norepinephrine at 0.15 mcg/kg/min. IV fluids are currently at KVO. Enteral feeding for nutritional support is being provided and the patient is currently on vital high-protein at a rate of 32 cc an hour. She is afebrile for now. No other significant events overnight. 05/15/2023, the patient is being seen for a follow-up. The patient is undergoing daily hemodialysis. Yesterday she underwent hemodialysis ultrafiltration with 2 L of fluid removed and the same was done earlier this morning prior to my arrival. This morning, the patient is still off the propofol. She is grimacing to painful stimulation. However, she is still significantly encephalopathic and obtunded. Note that she has also history of liver cirrhosis and she has a component of hepatic encephalopathy, and metabolic encephalopathy. Postintub ation, drugs were provided in the form of propofol which may be also contributing to her diminished level of consciousness. In terms of her acid- base balance, her pCO2 has improved and she remains on mechanical ventilator and the most recent vent setting including assist-control of 14, tidal volume of 350, FiO2 of 30% with a PEEP of 5. pH is 7.39 with a pCO2 of 46 and pO2 of 105. Repeat chest x-ray from today shows improvement in volume status. There is diminution of the bilateral pleural effusions. She continues to have significant fluid overload with third spacing and edema in all 4 extremities. Hemodynamically, the patient is still on norepinephrine which has been weaned down to 0.09 mcg/kg/min. Her white cell count is at 9.9. She is afebrile. Hemoglobin is at 9.9 and a white cell count is at 14.4. Platelet count is at 91. Rest of blood work shows a BUN of 20, creatinine of 0.8, sodium levels at 137 and a potassium level of 3.1. The patient remains essentially on the same antibiotic coverage and she is on a combination of daptomycin, IV Invanz and Eraxis. In terms of enteral feeding, she remains on vital HP at a rate of 32 cc an hour which is at goal. In terms of bowel movement activity, the patient remains on lactulose for hepatic encephalopathy. The most recent ammonia level is currently at 24 Patient was reevaluated today on 05/16/2023, martha in the ICU, intubated and mechanically ventilated, on hemodialysis. Patient is on assist-control rate of 14 tidal volume 350 FiO2 30% and PEEP of 5. Patient is not sedated has been off propofol since 05/12, she is requiring a small dose of norepinephrine at 0.06 mcg/kg/min, ABG showed a pO2 of 373 pCO2 45 pH of 7.40 patient is now on 50% FiO2. Patient remains on daptomycin, Eraxis, and Invanz, chest x-ray showed endotracheal tube to tube to be far down in the carinal area, and this needs to be pulled up about 2 cm patient is developing drop in her platelets, remains on subcu heparin, and will continue to monitor the platelets. Chest x-ray continues to show small bilateral pleural effusions, patient will not require thoracentesis at this point since she is receiving hemodialysis/ultrafiltration. WBC count is 14 hemoglobin 9.2. Basic metabolic profile is normal except for potassium of 3.3 BUN of 29 creatinine 1.25. Her blood cultures have been negative however cultures from the right mandible/wound cultures grew positive for Staphylococcus hemolyticus, antibiotics as noted earlier. Including da ptomycin, Eraxis, and Invanz Patient was reevaluated today at 05/17/2023, remains in the ICU, intubated and mechanically ventilated, patient is on assist-control rate 14 tidal volume 350 FiO2 28%, and PEEP of 5 ABG showed a pO2 of 88 pCO2 45 pH of 7.41, and is requiring a tiny dose of norepinephrine at 0.03 mcg/kg/min, she is also receiving vital HP at 32 cc/h. Antibiotics hernandez remains on Eraxis daptomycin and Invanz. Patient is receiving Lasix at 60 mg IV push every 12 hours. Patient is intermittently getting hemodialysis/ultrafiltration, patient has hardly any urine output, patient had a total ultrafiltration of 16.5 L over the last 1 week chest x-ray continues to show mild pulmonary edema, and the patient continues to have bipedal edema. WBC count today is 14.8 hemoglobin is 9.2. A BG as noted above, basic metabolic profile is normal BUN is 28 creatinine 1.15 reevaluate today on 05/18/2023, remains in the ICU intubated and mechanically ventilated, on assist-control rate of 14 tidal volume 350 FiO2 28% PEEP of 5 ABG showed a pO2 of 95 pCO2 44 pH of 7.43. Patient is still requiring Levophed at 0.12 mcg/kg/min, being titrated to maintain adequate blood pressure, she is on IV fluids at KVO, vital HP at 45/45, patient continues to have significant amount of secretions, failed a trial of weaning yesterday, another trial will be given today, patient is not requiring any sedation. Today should the patient be given another trial of pressure support and CPAP, I have discontinued Lasix because it does not seem to be contributing much to urine output, patient is being dialyzed. Remains on Eraxis daptomycin and Invanz. Not much of a change is noted to the last 24 hours. Patient was initially admitted on 04/30, intubated on 05/11, and by Tuesday it will be at least 11 or 12 days of intubation, hence I am recommending surgical evaluation for possible tracheostomy if the patient continues to fail weaning. Weaning trials will be given again today with pressure support and CPAP chest x-ray continues to show small to moderate bilateral pleural effusions and atelectasis. WBC count is 18 hemoglobin is 10.4. Cancer leukocytosis seems to be worsening in spite of antibiotics basic metabolic profile is normal BUN is 24 creatinine 1.18. Patient was reevaluated today on 05/19/2023, patient remains in the ICU, intubated and mechanically ventilated. She is on assist-control rate of 14 tidal volume 350 FiO2 28% and PEEP of 5 ABG showed a pO2 of 104 pCO2 43 pH of 7.45 patient is still requiring norepinephrine at 0.09 mcg/kg/min, she is on vital HP for nutritional support at 10 cc/h the goal is 45. Patient remains on Eraxis, Invanz, and daptomycin. Her last hemodialysis was 05/17, and she may get another dialysis today. Family today is at bedside, and we discussed that options including tracheostomy patient has been a failure to wean mostly because she has been tried almost on a daily basis on pressure support and CPAP, and she is extremely unable to tolerate even pressure support with CPAP. And she is only lasting a very short limited. Of time. Today I updated the family about her condition, discussed the different options including the option of tracheostomy and PEG tube, also discussed the option of comfort care. Family is yet undecided, they would likely make a decision by the afternoon today WBC count is 13 hemoglobin is 10 basic metabolic profile is normal BUN is 28 and creatinine is 1.36 Objective - Vital Signs Vital signs: Vital Signs Temp 100.0 F H 05/19/23 12:00 Pulse 66 05/19/23 12:00 Resp 18 05/19/23 12:00 BP 143/65 05/18/23 11:53 Pulse Ox 100 05/19/23 12:00 FiO2 28 05/19/23 12:00 Intake & Output 05/18/23 05/19/23 05/19/23 18:59 06:59 18:59 Intake Total 1349.159 188 348 Output Total 3430 113 0 Balance -2080.841 75 348 Weight 92 kg Intake: IV 169 143 78 .9 kvo 130 110 60 Arterial Pressure Bag NS 39 33 18 0.9% Intake, IV Titration 75.159 Amount Norepinephrine 8 mg In 75.159 Sodium Chloride 0.9% 250 ml @ 0.03 MCG/KG/MIN 5. 759 mls/hr IV .Q24H [facility] Rx#:[id number] Tube Feeding 675 45 270 Hemodialysis 400 Other 30 Output: Urine 30 63 0 Stool 50 Hemodialysis 3400 Other: Voiding Method Indwelling Catheter Indwelling Catheter Indwelling Catheter ABP, PAP, CO, CI - Last Documented Arterial Blood Pressure 121/38 - Exam GENERAL EXAM:, Revealed 82-year-old female, awake, off sedation, seems to be generally weak, follows simple instructions only. HEAD: Normocephalic. EYES: Normal reaction of pupils, equal size. NOSE: Clear with pink turbinates. THROAT: No erythema or exudates. Moist mucous membranes noted NECK: No masses, no JVD. The patient has a left IJ triple-lumen catheter in the right IJ dialysis catheter. CHEST: No chest wall deformity. LUNGS: Coarse at the bases persist CVS: S1 and S2 normal with no audible murmur, regular rhythm. ABDOMEN: Soft nontender no megaly no rebound no guarding. SKIN: Stage II coccyx ulcer CENTRAL NERVOUS SYSTEM: Opens eyes, following simple instructions EXTREMITIES: There is 2+ peripheral edema. No clubbing, no cyanosis. Perip heral pulses are intact. - Labs CBC & Chem 7: 05/19/23 04:51 05/19/23 04:51 Labs: Abnormal Lab Results - Last 24 Hours (Table) 05/18/23 05/19/23 05/19/23 Range/Units 17:43 00:57 04:51 WBC 13.0 H (3.8-10.6) k/uL RBC 2.87 L (3.80-5.40) m/uL Hgb 10.0 L (11.4-16.0) gm/dL Hct 30.1 L (34.0-46.0) % MCV 105.0 H (80.0-100.0) fL RDW 20.7 H (11.5-15.5) % Plt Count 84 L (150-450) k/uL Neutrophils # (Manual) 11.44 H (1.3-7.7) k/uL Lymphocytes # (Manual) 0.52 L (1.0-4.8) k/uL Monocytes # (Manual) 1.04 H (0-1.0) k/uL Macrocytosis Marked A ABG HCO3 (21-25) mmol/L ABG Total CO2 (19-24) mmol/L ABG O2 Saturation (94-97) % Sodium (137-145) mmol/L BUN (7-17) mg/dL Creatinine (0.52-1.04) mg/dL Glucose (74-99) mg/dL POC Glucose (mg/dL) 146 H 163 H (70-110) mg/dL Calcium (8.4-10.2) mg/dL 05/19/23 05/19/23 05/19/23 Range/Units 04:51 05:38 05:57 WBC (3.8-10.6) k/uL RBC (3.80-5.40) m/uL Hgb (11.4-16.0) gm/dL Hct (34.0-46.0) % MCV (80.0-100.0) fL RDW (11.5-15.5) % Plt Count (150-450) k/uL Neutrophils # (Manual) (1.3-7.7) k/uL Lymphocytes # (Manual) (1.0-4.8) k/uL Monocytes # (Manual) (0-1.0) k/uL Macrocytosis ABG HCO3 30 H (21-25) mmol/L ABG Total CO2 31 H (19-24) mmol/L ABG O2 Saturation 99.0 H (94-97) % Sodium 130 L (137-145) mmol/L BUN 28 H (7-17) mg/dL Creatinine 1.36 H (0.52-1.04) mg/dL Glucose 133 H (74-99) mg/dL POC Glucose (mg/dL) 132 H (70-110) mg/dL Calcium 7.5 L (8.4-10.2) mg/dL 05/19/23 Range/Units 11:52 WBC (3.8-10.6) k/uL RBC (3.80-5.40) m/uL Hgb (11.4-16.0) gm/dL Hct (34.0-46.0) % MCV (80.0-100.0) fL RDW (11.5-15.5) % Plt Count (150-450) k/uL Neutrophils # (Manual) (1.3-7.7) k/uL Lymphocytes # (Manual) (1.0-4.8) k/uL Monocytes # (Manual) (0-1.0) k/uL Macrocytosis ABG HCO3 (21-25) mmol/L ABG Total CO2 (19-24) mmol/L ABG O2 Saturation (94-97) % Sodium (137-145) mmol/L BUN (7-17) mg/dL Creatinine (0.52-1.04) mg/dL Glucose (74-99) mg/dL POC Glucose (mg/dL) 140 H (70-110) mg/dL Calcium (8.4-10.2) mg/dL Assessment and Plan Assessment: Impression: Acute on chronic hypoxic and hypercapnic respiratory failure, secondary to pulmonary edema and fluid overload with renal failure requiring hemodialysis and ultrafiltration. Acute metabolic encephalopathy Sepsis and septic shock with bacteremia secondary to mandibular abscess. And recent tooth extraction Bilateral pleural effusion right more than left, improving on today's chest x- ray Acute kidney injury secondary to above, requiring hemodialysis. Acute hyperkalemia, improved compression fractures of T7 and T8 and acute left posterior eighth rib fracture Neuropathy Stage II decubitus ulcer History of liver cirrhosis Pancytopenia Non-ST segment elevation myocardial infarction New onset atrial fibrillation with controlled ventricular response, rate controlled for now. 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 Failed recent trial over the last few days. Continue hemodynamic support patient is still requiring norepinephrine Continue midodrine Continue nutritional support/enteral feeding Continue antibiotics as per ID on the case Continue hemodialysis/ultrafiltration Continue to monitor strictly I's and O's, and weights Continue GI and DVT prophylaxis monitor platelets closely Patient will not tolerate extubation if to be done today. Family updated on her condition today, had a long discussion with the patient daughter and undecided about comfort care measures yet Will continue daily trials of weaning Will continue to follow critical care time is over 30 minutes Time with Patient: Greater than 30
[2023-05-19 18:23] LABS: Glucose,Whole Blood 180 mg/dL (70-110)
[2023-05-20 04:58] LABS: Glucose,Whole Blood 148 mg/dL (70-110)
[2023-05-20 05:27] LABS: ALT 30 U/L (4-34); AST 83 U/L (14-36); African American GFR (CKD) 34 (>60 ml/min/1.73 sqM); Albumin 1.9 g/dL (3.5-5.0); Alkaline Phosphatase 184 U/L (38-126); Anion Gap 4 mmol/L; Blood Urea Nitrogen 45 mg/dL (7-17); C Reactive Protein 7.2 mg/dL (<1.0); Calcium 7.5 mg/dL (8.4-10.2); Carbon Dioxide 23 mmol/L (22-30); Chloride 104 mmol/L (98-107); Glucose 137 mg/dL (74-99); Non-African American GFR(CKD) 29 (>60 ml/min/1.73 sqM); Potassium 3.7 mmol/L (3.5-5.1); Sodium 131 mmol/L (137-145); Total Bilirubin 1.2 mg/dL (0.2-1.3); Total Protein 4.8 g/dL (6.3-8.2)
[2023-05-20 05:35] LABS: Anisocytosis Slight; HCT 31.4 % (34.0-46.0); HGB 10.2 gm/dL (11.4-16.0); Hypochromasia Moderate; MCH 34.1 pg (25.0-35.0); MCHC 32.5 g/dL (31.0-37.0); MCV 105.2 fL (80.0-100.0); Macrocytosis Marked; Mean Platelet Volume 10.1; Poikilocytosis Slight; RBC 2.99 m/uL (3.80-5.40); RDW 19.5 % (11.5-15.5); WBC 11.8 k/uL (3.8-10.6)
[2023-05-20] MEDS ORDERED: Potassium Replacement Protocol 1 EACH MISC MISCELLANE PRN (05:48)
[2023-05-20 05:50] LABS: Platelet Count 87 k/uL (150-450)
[2023-05-20 06:04] LABS: Nucleated Red Blood Cells 0 /100 WBC (0-0)
[2023-05-20 06:06] LABS: Band Neutrophils % 3 %; Lymphocytes # (M) 1.18 k/uL (1.0-4.8); Monocytes # (M) 2.48 k/uL (0-1.0); Neutrophils % (M) 66 %; Total Cells Counted 100
[2023-05-20 06:07] LABS: Anisocytosis (M) Present; Polychromasia Present
[2023-05-20 06:12] LABS: ABG Base Excess 2.7 mmol/L; ABG HCO3 27 mmol/L (21-25); ABG PCO2 42 mmHg (35-45); ABG PH 7.42 (7.35-7.45); ABG PO2 97 mmHg (83-108); ABG TCO2 29 mmol/L (19-24); Allen Test Performed? Yes
[2023-05-20 06:14] LABS: ABG Oxygen Saturation 97.9 % (94-97)
[2023-05-20] MEDS: POTASSIUM BICARBONATE/CIT AC 20 MEQ TABLET.EFF NG-TUBE SCH (06:35)
--- NOTE | 2023-05-20 08:29 | XR ---
EXAMINATION TYPE: XR chest 1V portable DATE OF EXAM: 05/20/2023 Comparison: 05/19/2023 Clinical History: 82-year-old female shortness of breath Findings: ET tube tip 1.6 cm from the lizzie. NG tube courses outside the field of view. Left and right IJ CVC tips in upper right atrium. Heart remains mildly enlarged. Small bilateral pleural effusions remain. These appear to be improving from prior. Residual mild interstitial density. Impression: 1. ET tube tip 1.6 cm from the lizzie. 2. Small bilateral pleural effusions with adjacent atelectasis and/or consolidation, slightly improvi ng from prior, appears possibly due to upright positioning now. 3. Residual mild pulmonary vascular congestion.
--- NOTE | 2023-05-20 10:56 | P.PN ---
Subjective Progress Note Date: 05/20/23 Hospital Course: Patient is an 82-year-old female with known cirrhosis, coronary artery disease status post stenting, chronic systolic congestive heart failure with ejection fraction 45%, hypertension, dyslipidemia, chronic pancytopenia with ITP who initially presented to the emergency department with chest pain and shortness of breath. In the ER she underwent extensive evaluation. On arrival she was tachycardic and tachypneic but saturating well on room air. EKG demonstrated sinus tachycardia with known left bundle branch block. Chest x-ray showed pulmonary vascular congestion. She subsequently underwent CT of the aorta which demonstrated striated left thyroid mass, bilateral pleural effusions, T7 and 8 compression fractures, left posterior eighth rib fracture, fracture of the left scapula, moderately enlarged heart, no signs of aortic rupture. Labs were remarkable for WBC count 1.6, hemoglobin 11.3, platelet count 41, INR 1.3, sodium 131, BUN 33, creatinine 1.19, total bili 4.2, AST 44, troponin 0.064 and proBNP 2360. Her troponin continued to uptrend. Cardiology was consulted and felt this was a type II NSTEMI, no further testing warrented. Echocardiogram showed mild LV systolic function decrease EF 45%, severely enlarged left atrium. Orthopedic surgery was consulted. Patient did get slightly more encephalopathic, and had low blood sugars, previous urinalysis was positive, urine culture was positive for ESBL. Repeat urinalysis shows a dirty sample. ID was consulted and patient placed on IV antibiotics, ertapenem. Patient also developed oliguric SCOOTER. A CT face showed neck mass of 3 x 4 cm and right maxillary inflammatory changes. ENT and maxillofacial surgery were consulted. ENT recommended IR consult and after review, radiology deferred this procedure d ue to stable imaging/finding of left neck mass/thyroid mass from prior imaging. Maxillofacial surgery took patient for dental extraction with abscess drainage of the right mandible. Patient required transfer to the ICU on 05/07 for septic shock requiring vasopressor. On 05/12/2023 patient became more encephalopathic with worsening hypercapnic respiratory failure, increasing pressors requirements and then he became oliguric. She was subsequently intubated, started on vasopressin, also had dialysis catheter placed and started on dialysis.By 05/17 patient has been off of sedation for over 3 days, with minimal improvement in mental status. Plan is for trach and peg and surgery was consulted. Subjective: Pts pressor requirement is 0.1. Family considering T+P vs comfort care. Vitals Signs Reviewed. General: intubated, sedated HEENT: normocephalic, atraumatic, no tracheal deviation Respiratory: symmetric chest rise, no cyanosis, ventilator dependent CVS: perfusing all extremities, no distal gangrene, bilateral pitting edema GI: soft, ND : no SPT, no CVAT, bedoya is present Neuro: sedated Assessment/plan: Acute encephalopathy, multifactorial, hepatic and metabolic Septic Shock with with possible sources: - urinary tract infection, prior cultures growing ESBL -Dental abscess status post surgical I and D with tooth extraction Acute hypoxic and hypercapnic respiratory failure, now ventilator dependent Pleural effusions bilateral Liver cirrhosis Macrocytic anemia, thrombocytopenia in the setting of liver disease -Discussed management with pulmonology, continue to wean pressors, continue respiratory support, continue hemodialysis -Case discussed with infectious disease. Will continue with current treatment with daptomycin, Eraxis, and ertapenem. Will consider de-escalating antibiotics once vasopressor requirements have stabilized. -ertapenem 0.5 g IV daily, on daptomycin 400 mg IV every 48 hours, Eraxis 100 mg IV daily -Patient did have to go up on her norepinephrine during dialysis. Continue with midodrine 10 mg 3 times daily. Continue to hold metoprolol 12.5 mg daily -Patient was on primidone for tremors, discontinued -Having frequent bowel movements and lactulose was decreased to 30 daily -General surgery will consider trach and PEG if family in agreement. Plan will be for 05/20/2023. Acute kidney injury now requiring hemodialysis Hyponatremia, hypervolemic - iHD per nephrology - appreciate Nephrology recs Anemia, thrombocytopenia - stable - follow CBC T7-8 compression fractures 30 to 40% Acute posterior eighth rib fracture -Orthopedic surgery signed off, patient not a surgical candidate -Continue with gabapentin 100 mg daily for pain control NSTEMI, likely type II New onset Afib with controlled ventricular rate History of CAD status post stent -Cardiology signed off, recommended medical management -Continue aspirin 81 mg -On amiodarone 200 gm BID for rate control, metoprolol 12.5 daily is being held, no anticoagulation due to thrombocytopenia Thyroid mass -Outpatient follow-up DVT prophylaxis: Heparin Anticipated discharge date: Pending clinical course Anticipated discharge place: Pending clinical course This dictation was prepared using dragon medical voice recognition software. Though every attempt is made to correct errors during dictation some may still exist. Objective - Vital Signs Vital signs: Vital Signs Temp 99.4 F 05/20/23 08:00 Pulse 96 05/20/23 10:15 Resp 16 05/20/23 10:15 BP 143/65 05/18/23 11:53 Pulse Ox 100 05/20/23 10:15 FiO2 28 05/20/23 08:11 Intake & Output 05/19/23 05/20/23 05/20/23 18:59 06:59 18:59 Intake Total 936.838 447.506 190.494 Output Total 0 145 50 Balance 936.838 302.506 140.494 Weight 90.9 kg Intake: IV 169 143 102 .9 kvo 130 110 40 Arterial Pressure Bag NS 39 33 12 0.9% Ertapenem 0.5 gm In 50 Sodium Chloride 0.9% 50 ml @ 100 mls/hr IVPB DAILY RONI Rx#:[id number] Intake, IV Titration 182.838 214.506 43.494 Amount Norepinephrine 8 mg In 182.838 214.506 43.494 Sodium Chloride 0.9% 250 ml @ 0.03 MCG/KG/MIN 5. 759 mls/hr IV .Q24H RONI Rx#:[id number] Tube Feeding 585 90 45 Output: Urine 0 145 50 Other: Voiding Method Indwelling Catheter Indwelling Catheter Indwelling Catheter ABP, PAP, CO, CI - Last Documented Arterial Blood Pressure 126/46 - Labs CBC & Chem 7: 05/20/23 05:00 05/20/23 05:00 Labs: Abnormal Lab Results - Last 24 Hours (Table) 05/19/23 05/19/23 05/19/23 Range/Units 11:52 12:37 18:22 WBC (3.8-10.6) k/uL RBC (3.80-5.40) m/uL Hgb (11.4-16.0) gm/dL Hct (34.0-46.0) % MCV (80.0-100.0) fL RDW (11.5-15.5) % Plt Count (150-450) k/uL Neutrophils # (Manual) (1.3-7.7) k/uL Monocytes # (Manual) (0-1.0) k/uL Macrocytosis ABG HCO3 (21-25) mmol/L ABG Total CO2 (19-24) mmol/L ABG O2 Saturation (94-97) % Sodium (137-145) mmol/L BUN (7-17) mg/dL Creatinine (0.52-1.04) mg/dL Glucose (74-99) mg/dL POC Glucose (mg/dL) 140 H 180 H (70-110) mg/dL Calcium (8.4-10.2) mg/dL AST (14-36) U/L Alkaline Phosphatase (38-126) U/L C-Reactive Protein (<1.0) mg/dL Total Protein (6.3-8.2) g/dL Albumin (3.5-5.0) g/dL Procalcitonin 0.71 H (0.02-0.09) ng/mL 05/20/23 05/20/23 05/20/23 Range/Units 04:57 05:00 05:00 WBC 11.8 H (3.8-10.6) k/uL RBC 2.99 L (3.80-5.40) m/uL Hgb 10.2 L (11.4-16.0) gm/dL Hct 31.4 L (34.0-46.0) % MCV 105.2 H (80.0-100.0) fL RDW 19.5 H (11.5-15.5) % Plt Count 87 L (150-450) k/uL Neutrophils # (Manual) 8.10 H (1.3-7.7) k/uL Monocytes # (Manual) 2.48 H (0-1.0) k/uL Macrocytosis Marked A ABG HCO3 (21-25) mmol/L ABG Total CO2 (19-24) mmol/L ABG O2 Saturation (94-97) % Sodium 131 L (137-145) mmol/L BUN 45 H (7-17) mg/dL Creatinine 1.64 H (0.52-1.04) mg/dL Glucose 137 H (74-99) mg/dL POC Glucose (mg/dL) 148 H (70-110) mg/dL Calcium 7.5 L (8.4-10.2) mg/dL AST 83 H (14-36) U/L Alkaline Phosphatase 184 H (38-126) U/L C-Reactive Protein 7.2 H (<1.0) mg/dL Total Protein 4.8 L (6.3-8.2) g/dL Albumin 1.9 L (3.5-5.0) g/dL Procalcitonin (0.02-0.09) ng/mL 05/20/23 Range/Units 06:09 WBC (3.8-10.6) k/uL RBC (3.80-5.40) m/uL Hgb (11.4-16.0) gm/dL Hct (34.0-46.0) % MCV (80.0-100.0) fL RDW (11.5-15.5) % Plt Count (150-450) k/uL Neutrophils # (Manual) (1.3-7.7) k/uL Monocytes # (Manual) (0-1.0) k/uL Macrocytosis ABG HCO3 27 H (21-25) mmol/L ABG Total CO2 29 H (19-24) mmol/L ABG O2 Saturation 97.9 H (94-97) % Sodium (137-145) mmol/L BUN (7-17) mg/dL Creatinine (0.52-1.04) mg/dL Glucose (74-99) mg/dL POC Glucose (mg/dL) (70-110) mg/dL Calcium (8.4-10.2) mg/dL AST (14-36) U/L Alkaline Phosphatase (38-126) U/L C-Reactive Protein (<1.0) mg/dL Total Protein (6.3-8.2) g/dL Albumin (3.5-5.0) g/dL Procalcitonin (0.02-0.09) ng/mL
--- NOTE | 2023-05-20 12:09 | P.PN ---
Subjective Progress Note Date: 05/20/23 Principal diagnosis: Acute on chronic hypoxic and hypercapnic respiratory failure secondary to pulmonary edema/fluid overload and bilateral pleural effusion This is an 82-year-old female patient with a history of liver cirrhosis, pancytopenia, coronary artery disease with previous stent placement, compression fracture of T7 and T8, acute left posterior eighth rib fracture, thyroid mass, new onset atrial fibrillation and non-ST segment elevation myocardial infarction. She had been admitted back on 04/29/2023 with chest pain and shortness of breath. Echocardiogram revealed impaired left ventricular systolic function with ejection fraction 45%. She was being cared for on the selective care unit. Last evening at a approximately 1145 and rapid response team was called due to hypotension with blood pressure 70 over 40s. She received 100 mL of fluid resuscitation and was transferred to the intensive care unit and initiated on norepinephrine. She is seen today in consultation. She is lethargic. Minimally responsive. She had been calling out in pain earlier. When she was repositioned she settled down. This is felt to be secondary to her compression fractures and rib fractures. He does have a stage II decubitus ulcer. She also has severe suspected neuropathy of the bilateral lower extremities. She is maintaining good O2 saturation in the mid 90s on 2 L/min per nasal cannula. 0.08 mcg/kg/min. She has normal staying at 80 MLS per hour. White count 11.9. Platelets 55,000. Sodium 130. Potassium 4.9. Bicarb 33. BUN 74. Creatinine 2.78. Glucose 137. Urine culture reveals no growth. Currently on ertapenem. X-ray reveals cardiomegaly with mild central vascular congestion and interstitial opacities suggesting edema. Small to moderate bibasilar pleural effusions with adjacent atelectasis. On today's evaluation of 05/09/2023, the patient is being seen for a follow-up. As mentioned, the patient was transferred to the intensive care unit yesterday because of hypotension. She has multiple medical problems including coronary artery disease and previous coronary intervention and stenting and the patient also has liver cirrhosis, and she did encounter a new onset atrial fibrillation. At the same time, the patient is suspected to be septic. The patient has been treated with IV fluids. The patient continues to be on pressors and the patient is currently on norepinephrine running 0.14 mcg/kg/min. IV fluids are running in the rate of 50 cc an hour of normal saline. The patient is currently on IV Invanz. The white cell count today is 11.1. Hemoglobin is at 11 and a platelet count is at 55. Note that the patient has chronic thrombocytopenia related to her chronic liver disease. She also had an acute kidney injury and the cre atinine peaked at 3 and currently is downtrending down to 2.65. Potassium level today is at 5.8 with a sodium level of 132. LFTs are abnormal with an alkaline phosphatase of 314, AST of 51 and ALT of 21. Her procalcitonin level was at 2.53 and her free T4 was 1.36 with a TSH of 5.9. UA was abnormal suspicious for an underlying urinary tract infection and cultures are still pending for now. Meanwhile, the CAT scan of the abdomen and pelvis that was obtained on 05/04/2023 showed no evidence of any acute intra-abdominal process. Nodular contour of the liver was suggestive of liver cirrhosis and the patient had signs of portal hypertension and cardiomegaly and pulm vascular congestion. The CAT scan of the face that was done on 05/04/2023 showed a soft tissue masslike area in the inferior left neck measuring 47 x 36 mm in size and inflammatory changes along the right mandible without an organizing collection. A head and neck abscess cannot be completely ruled out at this point in time. Neurologically, the patient is encephalopathic. She has episodes of crying and yelling and she r emains altered. Her the serum ammonia level was 17. The patient remains on lactulose which is unfortunately being given through the rectal source which is causing significant amount of contamination. At the same time, cardiac rhythm is currently controlled and she remains in atrial fibrillation. She remains on amiodarone 200 mg p.o. twice a day. The Toprol has been placed on hold based on her underlying hypotension. Her echocardiogram from 04/30/2023 showed a ejection fraction of 45%, mild RV dilatation, mild mitral regurgitation, no other significant abnormalities noted. On today's evaluation of 05/10/2023, the patient is being seen for a follow-up. The patient is in the intensive care unit for sepsis and hypotension. Note that the patient underwent an evaluation by the oral surgeon yesterday and the patient was found to have a dental abscess tooth #[id number] and surgical extraction of the tooth was done and cultures were sent. At the same time, we are suspecting an underlying urine tract infection as another source of sepsis the patient and the patient is currently on IV Invanz as the patient has had previous ESBL producing E. coli in her urine based on the culture that was obtained on 04/26/2023. The patient remains on pressors. She is on norepinephrine running at 0.15 mcg/kg/min. IV fluids are in the form of D5.9 at the rate of 50 cc an hour. Urine output is in order of 30 cc an hour and there is also interval improvement of creatinine which is down to 2.4 with a BUN of 78. Sodium levels at 133 with a potassium level of 5.2. The white cell count is at 10.2 with a hemoglobin of 10.4 and a platelet count of 85. Note that the patient has chronic thrombocytopenia related to her chronic liver disease. She is arousable. She is awake. She is on oxygen at 2 L with a pulse ox of 96%. On 05/11/2023, the patient is more lethargic compared to yesterday. There has been progressive worsening in her mentation and this has been noted throughout the day. In the morning, she was still arousable and later on during the day, the patient became quite obtunded. Based on that, the patient was given a stat CAT scan of the brain that showed no acute intracranial abnormalities. The patient's CAT scan of the brain showed Moderate bifrontal atrophy and old lacunar infarct in the left basal ganglia. There was also slightly heterogeneous appearance of the brainstem felt to be related to a prominent skull base artifact. Subsequently, the patient was given a blood gas that showed a pH of 7.11 with a pCO2 of 93 and pO2 117 and the patient's mental status is most like related to hypercapnic respiratory failure and CO2 narcosis. Chest x-ray that was done earlier this morning that showed cardiomegaly and pulm vascular congestion but the pleural fluid. Fluid balance has been +1 L over the past 24 hours and the patient has been persistently in a positive fluid balance and the patient has diffuse anasarca related to her liver failure and sepsis. The BUN is at 72 with a creatinine of 2.4 and sodium is at 136. WBC count is at 8.2 with a hemoglobin 9.8 and a platelet count of 76. She remains hypotensive. She remains on pressors and the patient is currently on norepinephrine running at 0.09 mcg/kg/min. Her pressor requirements are slightly improved compared to yesterday. She remains on D5 normal saline today stopped 50 cc an hour.. In terms of her cultures, the patient's oral culture is showing some anaerobic growth. She also has Sabrina albicans. Blood cultures were negative. Urine cultures also been negative. The patient remains on IV antibiotics and antibiotics has been modified to a combination of IV Eraxis, daptomycin and IV Invanz. on today's evaluation of 05/12/2023, I am seeing the patient for a follow-up. Events from yesterday were noted. The patient went into hypercapnic respiratory failure and she became altered and obtunded and based on that, and that intubating the patient and placed on mechanical ventilator for acute on chronic hypoxic and hypercapnic respiratory failure. Also, the patient was in significant fluid overload. Immediately postintubation, dialysis catheter was obtained and the patient was started on hemodialysis with ultrafiltration and a total of 2 L of fluid was removed yesterday. This morning, the patient remains intubated on the mechanical ventilator. She is currently on propofol running at 40 mcg/kg/min. She is on assist-control with rate of 26 with a tidal volume of 400 FiO2 40% with a PEEP of 5. Blood gas from this morning showed respiratory alkalosis with a pH of 7.58 and a pCO2 of 29 and pO2 of 77. Based on that, the respiratory rate was dropped down to 77. Chest x-ray from today showing cardiomegaly. There is bilateral pleural effusion worse on the right which is slightly improved compared to yesterday. ET tube is in a good location and the patient also has a triple-lumen catheter in her left IJ and a dialysis catheter in her right IJ. She is still hypotensive. Norepinephrine is running at 0.16 mcg/kg/min. The patient is also on physiologic dose of vasopressin A arterial line catheter was also inserted yesterday and her blood pressure is stable for now with a mean arterial pressure of around 80. Her cardiac rhythm is atrial fibrillation. In terms of the rest of the blood work, the patient has a white cell count of 12.2 with a hemoglobin 9.8 and a platelet count of 103. BUN is at 56 and the creatinine is up down to 1.7. Potassium is down to 4.5 and his sodium level is at 135. Her serum ammonia level is at 23. She continues to have significant amount of third spacing, peripheral edema and diffuse anasarca. In terms of her antibiotic coverage, the patient is currently on a combination of IV Invanz, daptomycin and Eraxis. Enteral feeding has not been started yet. On today's evaluation of 05/13/2023, the patient is being seen for a follow-up. The patient remains intubated on the mechanical ventilator. On today's evaluation, the patient is on propofol which is running at 40 mcg/kg/min. The patient is calm and comfortable and the patient is essentially centralized on the mechanical ventilator. On today's evaluation, the patient is on assist- control mode of mechanical ventilation and she is on a rate of 20, tidal volume of 400, FiO2 at 40% with a PEEP of 5. The chest x-ray is showing cardiomegaly and bilateral pleural effusions slightly improved and the ET tube is in a good location. The blood gas show a pH of 7.50 with a pCO2 of 35 and a pO2 of 118 and this was on FiO2 of 40%. No significant orotracheal secretions. The patient hemodynamically is still pressor dependent. She is currently on norepinephrine running at 0.2 mcg/kg/min and her norepinephrine dose is being titrated as the patient is undergoing hemodialysis and she is having variation and fluctuations in blood pressure. She is also on physiologic dose of vasopressin. No other hemodialysis was performed yesterday with a total of 2 point liters of ultrafiltration. Another session of hemodialysis being done today. The patient remains on Lasix 60 mg IV push every 12 hours. The fluid balance over the past 24 hours has been negative as the patient is making some urine output in the same time the patient is being dialyzed and ultrafiltrate it. Antibiotic coverage includes a combination of Invanz, Eraxis and daptomycin. Note that the patient had blood culture sent and the results are still pending for now. The cultures from the mouth and the right mandible were positive for staph hemolyticus and Sabrina albicans. The patient at the same ti me is in atrial fibrillation. The patient is on vital high-protein at the rate of 32 cc an hour and the patient seems to be tolerating her enteral feeding without any major difficulties. WBC count 11.7 with a hemoglobin 9.7 and a platelet count of 111. Sodium is at 132 with a potassium level of 3.7, BUN is 44 with a creatinine of 1.5 and a glucose of 154. LFTs are showing some mild elevation of the alkaline phosphatase at 218 and a total of 10 protein is at 4.5 with an albumin of 1.9. On 05/14/2023, the patient is being seen for a follow-up. Remains intubated on the mechanical ventilator. Sedation was discontinued yesterday and she has been off sedation for approximately 12 hours. She is sluggishly responsive to painful stimulation. Unable to communicate. Profoundly lethargic and sleepy. Most recent ammonia level was 2424 from yesterday. The patient remains on lactulose 30 g once a day and we are monitoring bowel movement activity on this patient. As mentioned earlier, the patient has liver cirrhosis, massive fluid overload, renal failure, respiratory failure requiring intubation mechanical ventilation and the patient is undergoing daily dialysis with ultrafiltration. Dialysis was done yesterday and approximately 2 L of fluid was removed. The goal for today is around 3 L. She continues to have diffuse anasarca, extensive edema in all 4 extremities, and the chest x-ray still showing bilateral pleural effusion which is essentially unchanged. While on the mechanical ventilator, she is on assist-control mode with rate of 14, tidal volume of 400, FiO2 40% with a PEEP of 5. Blood gas shows a pH of 7.58 with a pCO2 of 29 and pO2 of 77 and this was an FiO2 of 40%. Rest of the blood work and electrolytes show a sodium level of 135, potassium level is at 4.5, BUN is at 56 with a creatinine of 1.7. Potassium level is at 4.5. LFTs are normal with mild elevation of alkaline phosphatase at 240. Serum albumin is at 1.9 with a total protein of 4.4. She is afebrile. She remains on a combination of antibiotics. She is on IV Invanz, Eraxis and daptomycin. Hemodynamically, she is still requiring pressors and the patient is currently on norepinephrine at 0.15 mcg/kg/min. IV fluids are currently at KVO. Enteral feeding for nutritional support is being provided and the patient is currently on vital high-protein at a rate of 32 cc an hour. She is afebrile for now. No other significant events overnight. 05/15/2023, the patient is being seen for a follow-up. The patient is undergoing daily hemodialysis. Yesterday she underwent hemodialysis ultrafiltration with 2 L of fluid removed and the same was done earlier this morning prior to my arrival. This morning, the patient is still off the propofol. She is grimacing to painful stimulation. However, she is still significantly encephalopathic and obtunded. Note that she has also history of liver cirrhosis and she has a component of hepatic encephalopathy, and metabolic encephalopathy. Postintub ation, drugs were provided in the form of propofol which may be also contributing to her diminished level of consciousness. In terms of her acid- base balance, her pCO2 has improved and she remains on mechanical ventilator and the most recent vent setting including assist-control of 14, tidal volume of 350, FiO2 of 30% with a PEEP of 5. pH is 7.39 with a pCO2 of 46 and pO2 of 105. Repeat chest x-ray from today shows improvement in volume status. There is diminution of the bilateral pleural effusions. She continues to have significant fluid overload with third spacing and edema in all 4 extremities. Hemodynamically, the patient is still on norepinephrine which has been weaned down to 0.09 mcg/kg/min. Her white cell count is at 9.9. She is afebrile. Hemoglobin is at 9.9 and a white cell count is at 14.4. Platelet count is at 91. Rest of blood work shows a BUN of 20, creatinine of 0.8, sodium levels at 137 and a potassium level of 3.1. The patient remains essentially on the same antibiotic coverage and she is on a combination of daptomycin, IV Invanz and Eraxis. In terms of enteral feeding, she remains on vital HP at a rate of 32 cc an hour which is at goal. In terms of bowel movement activity, the patient remains on lactulose for hepatic encephalopathy. The most recent ammonia level is currently at 24 Patient was reevaluated today on 05/16/2023, martha in the ICU, intubated and mechanically ventilated, on hemodialysis. Patient is on assist-control rate of 14 tidal volume 350 FiO2 30% and PEEP of 5. Patient is not sedated has been off propofol since 05/12, she is requiring a small dose of norepinephrine at 0.06 mcg/kg/min, ABG showed a pO2 of 373 pCO2 45 pH of 7.40 patient is now on 50% FiO2. Patient remains on daptomycin, Eraxis, and Invanz, chest x-ray showed endotracheal tube to tube to be far down in the carinal area, and this needs to be pulled up about 2 cm patient is developing drop in her platelets, remains on subcu heparin, and will continue to monitor the platelets. Chest x-ray continues to show small bilateral pleural effusions, patient will not require thoracentesis at this point since she is receiving hemodialysis/ultrafiltration. WBC count is 14 hemoglobin 9.2. Basic metabolic profile is normal except for potassium of 3.3 BUN of 29 creatinine 1.25. Her blood cultures have been negative however cultures from the right mandible/wound cultures grew positive for Staphylococcus hemolyticus, antibiotics as noted earlier. Including da ptomycin, Eraxis, and Invanz Patient was reevaluated today at 05/17/2023, remains in the ICU, intubated and mechanically ventilated, patient is on assist-control rate 14 tidal volume 350 FiO2 28%, and PEEP of 5 ABG showed a pO2 of 88 pCO2 45 pH of 7.41, and is requiring a tiny dose of norepinephrine at 0.03 mcg/kg/min, she is also receiving vital HP at 32 cc/h. Antibiotics hernandez remains on Eraxis daptomycin and Invanz. Patient is receiving Lasix at 60 mg IV push every 12 hours. Patient is intermittently getting hemodialysis/ultrafiltration, patient has hardly any urine output, patient had a total ultrafiltration of 16.5 L over the last 1 week chest x-ray continues to show mild pulmonary edema, and the patient continues to have bipedal edema. WBC count today is 14.8 hemoglobin is 9.2. A BG as noted above, basic metabolic profile is normal BUN is 28 creatinine 1.15 reevaluate today on 05/18/2023, remains in the ICU intubated and mechanically ventilated, on assist-control rate of 14 tidal volume 350 FiO2 28% PEEP of 5 ABG showed a pO2 of 95 pCO2 44 pH of 7.43. Patient is still requiring Levophed at 0.12 mcg/kg/min, being titrated to maintain adequate blood pressure, she is on IV fluids at KVO, vital HP at 45/45, patient continues to have significant amount of secretions, failed a trial of weaning yesterday, another trial will be given today, patient is not requiring any sedation. Today should the patient be given another trial of pressure support and CPAP, I have discontinued Lasix because it does not seem to be contributing much to urine output, patient is being dialyzed. Remains on Eraxis daptomycin and Invanz. Not much of a change is noted to the last 24 hours. Patient was initially admitted on 04/30, intubated on 05/11, and by Tuesday it will be at least 11 or 12 days of intubation, hence I am recommending surgical evaluation for possible tracheostomy if the patient continues to fail weaning. Weaning trials will be given again today with pressure support and CPAP chest x-ray continues to show small to moderate bilateral pleural effusions and atelectasis. WBC count is 18 hemoglobin is 10.4. Cancer leukocytosis seems to be worsening in spite of antibiotics basic metabolic profile is normal BUN is 24 creatinine 1.18. Patient was reevaluated today on 05/19/2023, patient remains in the ICU, intubated and mechanically ventilated. She is on assist-control rate of 14 tidal volume 350 FiO2 28% and PEEP of 5 ABG showed a pO2 of 104 pCO2 43 pH of 7.45 patient is still requiring norepinephrine at 0.09 mcg/kg/min, she is on vital HP for nutritional support at 10 cc/h the goal is 45. Patient remains on Eraxis, Invanz, and daptomycin. Her last hemodialysis was 05/17, and she may get another dialysis today. Family today is at bedside, and we discussed that options including tracheostomy patient has been a failure to wean mostly because she has been tried almost on a daily basis on pressure support and CPAP, and she is extremely unable to tolerate even pressure support with CPAP. And she is only lasting a very short limited. Of time. Today I updated the family about her condition, discussed the different options including the option of tracheostomy and PEG tube, also discussed the option of comfort care. Family is yet undecided, they would likely make a decision by the afternoon today WBC count is 13 hemoglobin is 10 basic metabolic profile is normal BUN is 28 and creatinine is 1.36 Patient was reevaluated today on 05/20/2023, remains in the ICU intubated and mechanically ventilated. She is on assist-control rate of 14 tidal volume 350 F iO2 28% PEEP of 5 remains off sedation, patient is generally weak, opens her eyes but does not follow any instructions. Still requiring norepinephrine at 0.09 mcg/kg/min her IV fluids at KVO ABG showed a pO2 of 97 pCO2 42 pH of 7.42. Remains on Invanz daptomycin and Eraxis. WBC count is 11.8 hemoglobin is 10.2.Basic metabolic profile showed low sodium 131 BUN is 45 creatinine 1.64 her last procalcitonin level from yesterday was 0.71 chest x-ray continues to show minimal pulmonary vascular congestion and atelectasis. No clear-cut evidence of pneumonia Objective - Vital Signs Vital signs: Vital Signs Temp 99.4 F 05/20/23 08:00 Pulse 72 05/20/23 11:15 Resp 20 05/20/23 11:15 BP 143/65 05/18/23 11:53 Pulse Ox 100 05/20/23 11:15 FiO2 28 05/20/23 11:23 Intake & Output 05/19/23 05/20/23 05/20/23 18:59 06:59 18:59 Intake Total 936.838 447.506 203.494 Output Total 0 145 100 Balance 936.838 302.506 103.494 Weight 90.9 kg Intake: IV 169 143 115 .9 kvo 130 110 50 Arterial Pressure Bag NS 39 33 15 0.9% Ertapenem 0.5 gm In 50 Sodium Chloride 0.9% 50 ml @ 100 mls/hr IVPB DAILY [facility] Rx#:[id number] Intake, IV Titration 182.838 214.506 43.494 Amount Norepinephrine 8 mg In 182.838 214.506 43.494 Sodium Chloride 0.9% 250 ml @ 0.03 MCG/KG/MIN 5. 759 mls/hr IV .Q24H [facility]I Rx#:[id number] Tube Feeding 585 90 45 Output: Urine 0 145 50 Stool 50 Other: Voiding Method Indwelling Catheter Indwelling Catheter Indwelling Catheter ABP, PAP, CO, CI - Last Documented Arterial Blood Pressure 116/41 - Exam GENERAL EXAM:, Revealed 82-year-old female, awake, off sedation, seems to be generally weak, follows simple instructions only. HEAD: Normocephalic. EYES: Normal reaction of pupils, equal size. NOSE: Clear with pink turbinates. THROAT: No erythema or exudates. Moist mucous membranes noted, endotracheal tube and orogastric tube are intact NECK: No masses, no JVD. The patient has a left IJ triple-lumen catheter in the right IJ dialysis catheter. CHEST: No chest wall deformity. LUNGS: Crackles at the bases, no rhonchi no wheezes t CVS: S1 and S2 normal with no audible murmur, regular rhythm. ABDOMEN: Soft nontender no megaly no rebound no guarding. SKIN: Stage II coccyx ulcer CENTRAL NERVOUS SYSTEM: Patient opens eyes, today she did not follow any simple instructions. EXTREMITIES: There is 2+ peripheral edema. No clubbing, no cyanosis. Peripheral pulses are intact. - Labs CBC & Chem 7: 05/20/23 05:00 05/20/23 05:00 Labs: Abnormal Lab Results - Last 24 Hours (Table) 05/19/23 05/19/23 05/20/23 Range/Units 12:37 18:22 04:57 WBC (3.8-10.6) k/uL RBC (3.80-5.40) m/uL Hgb (11.4-16.0) gm/dL Hct (34.0-46.0) % MCV (80.0-100.0) fL RDW (11.5-15.5) % Plt Count (150-450) k/uL Neutrophils # (Manual) (1.3-7.7) k/uL Monocytes # (Manual) (0-1.0) k/uL Macrocytosis ABG HCO3 (21-25) mmol/L ABG Total CO2 (19-24) mmol/L ABG O2 Saturation (94-97) % Sodium (137-145) mmol/L BUN (7-17) mg/dL Creatinine (0.52-1.04) mg/dL Glucose (74-99) mg/dL POC Glucose (mg/dL) 180 H 148 H (70-110) mg/dL Calcium (8.4-10.2) mg/dL AST (14-36) U/L Alkaline Phosphatase (38-126) U/L C-Reactive Protein (<1.0) mg/dL Total Protein (6.3-8.2) g/dL Albumin (3.5-5.0) g/dL Procalcitonin 0.71 H (0.02-0.09) ng/mL 05/20/23 05/20/23 05/20/23 Range/Units 05:00 05:00 06:09 WBC 11.8 H (3.8-10.6) k/uL RBC 2.99 L (3.80-5.40) m/uL Hgb 10.2 L (11.4-16.0) gm/dL Hct 31.4 L (34.0-46.0) % MCV 105.2 H (80.0-100.0) fL RDW 19.5 H (11.5-15.5) % Plt Count 87 L (150-450) k/uL Neutrophils # (Manual) 8.10 H (1.3-7.7) k/uL Monocytes # (Manual) 2.48 H (0-1.0) k/uL Macrocytosis Marked A ABG HCO3 27 H (21-25) mmol/L ABG Total CO2 29 H (19-24) mmol/L ABG O2 Saturation 97.9 H (94-97) % Sodium 131 L (137-145) mmol/L BUN 45 H (7-17) mg/dL Creatinine 1.64 H (0.52-1.04) mg/dL Glucose 137 H (74-99) mg/dL POC Glucose (mg/dL) (70-110) mg/dL Calcium 7.5 L (8.4-10.2) mg/dL AST 83 H (14-36) U/L Alkaline Phosphatase 184 H (38-126) U/L C-Reactive Protein 7.2 H (<1.0) mg/dL Total Protein 4.8 L (6.3-8.2) g/dL Albumin 1.9 L (3.5-5.0) g/dL Procalcitonin (0.02-0.09) ng/mL Assessment and Plan Assessment: Impression: Acute on chronic hypoxic and hypercapnic respiratory failure, secondary to pulmonary edema and fluid overload with renal failure requiring hemodialysis and ultrafiltration. Acute metabolic encephalopathy Sepsis and septic shock with bacteremia secondary to mandibular abscess. And recent tooth extraction Bilateral pleural effusion right more than left, improving on today's chest x-ray Acute kidney injury secondary to above, requiring hemodialysis. Acute hyperkalemia, improved compression fractures of T7 and T8 and acute left posterior eighth rib fracture Neuropathy Stage II decubitus ulcer History of liver cirrhosis Pancytopenia Non-ST segment elevation myocardial infarction New onset atrial fibrillation with controlled ventricular response, under control. 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 Continue midodrine Continue nutritional support/enteral feeding Continue antibiotics as per ID on the case Continue hemodialysis/ultrafiltration Continue to monitor fluid balance on a daily basis Continue GI and DVT prophylaxis monitor platelets closely Considering her overall condition, patient will not tolerate weaning and extubation Will continue to follow critical care time is over 30 minutes Time with Patient: Greater than 30
--- NOTE | 2023-05-20 14:39 | P.PN ---
Subjective Progress Note Date: 05/20/23 CHIEF COMPLAINT: Chest pain HISTORY OF PRESENT ILLNESS: patient remains in the ICU on mechanical ventila tion. Difficulty to wean from vent. She is off of sedation. She is awake. Surgical service initially consulted for possible tracheostomy and PEG tube placement. Patient's family is leaning towards comfort care measures. PHYSICAL EXAM: VITAL SIGNS: Reviewed. GENERAL: no acute distress. ABDOMEN: Soft. Nondistended. Nontender. NEUROLOGIC: Awake ASSESSMENT: 1. Acute on chronic hypercapnic respiratory failure with difficulty weaning from vent 2. Severe protein calorie malnutrition PLAN: -Patient's family has declined trach and PEG placement. They are leaning towards comfort care measures. -Trach and PEG for Tuesday had been cancelled. Physician Coffin Maker note has been reviewed by physician. Signing provider agrees with the documented findings, assessment, and plan of care. Objective - Vital Signs Vital signs: Vital Signs Temp 99.4 F 05/20/23 08:00 Pulse 96 05/20/23 10:15 Resp 16 05/20/23 10:15 BP 143/65 05/18/23 11:53 Pulse Ox 100 05/20/23 10:15 FiO2 28 05/20/23 08:11 Intake & Output 05/19/23 05/20/23 05/20/23 18:59 06:59 18:59 Intake Total 936.838 447.506 190.494 Output Total 0 145 50 Balance 936.838 302.506 140.494 Weight 90.9 kg Intake: IV 169 143 102 .9 kvo 130 110 40 Arterial Pressure Bag NS 39 33 12 0.9% Ertapenem 0.5 gm In 50 Sodium Chloride 0.9% 50 ml @ 100 mls/hr IVPB DAILY RONI Rx#:[id number] Intake, IV Titration 182.838 214.506 43.494 Amount Norepinephrine 8 mg In 182.838 214.506 43.494 Sodium Chloride 0.9% 250 ml @ 0.03 MCG/KG/MIN 5. 759 mls/hr IV .Q24H RONI Rx#:[id number] Tube Feeding 585 90 45 Output: Urine 0 145 50 Other: Voiding Method Indwelling Catheter Indwelling Catheter Indwelling Catheter ABP, PAP, CO, CI - Last Documented Arterial Blood Pressure 126/46 - Labs CBC & Chem 7: 05/20/23 05:00 05/20/23 05:00 Labs: Abnormal Lab Results - Last 24 Hours (Table) 05/19/23 05/19/23 05/19/23 Range/Units 11:52 12:37 18:22 WBC (3.8-10.6) k/uL RBC (3.80-5.40) m/uL Hgb (11.4-16.0) gm/dL Hct (34.0-46.0) % MCV (80.0-100.0) fL RDW (11.5-15.5) % Plt Count (150-450) k/uL Neutrophils # (Manual) (1.3-7.7) k/uL Monocytes # (Manual) (0-1.0) k/uL Macrocytosis ABG HCO3 (21-25) mmol/L ABG Total CO2 (19-24) mmol/L ABG O2 Saturation (94-97) % Sodium (137-145) mmol/L BUN (7-17) mg/dL Creatinine (0.52-1.04) mg/dL Glucose (74-99) mg/dL POC Glucose (mg/dL) 140 H 180 H (70-110) mg/dL Calcium (8.4-10.2) mg/dL AST (14-36) U/L Alkaline Phosphatase (38-126) U/L C-Reactive Protein (<1.0) mg/dL Total Protein (6.3-8.2) g/dL Albumin (3.5-5.0) g/dL Procalcitonin 0.71 H (0.02-0.09) ng/mL 05/20/23 05/20/23 05/20/23 Range/Units 04:57 05:00 05:00 WBC 11.8 H (3.8-10.6) k/uL RBC 2.99 L (3.80-5.40) m/uL Hgb 10.2 L (11.4-16.0) gm/dL Hct 31.4 L (34.0-46.0) % MCV 105.2 H (80.0-100.0) fL RDW 19.5 H (11.5-15.5) % Plt Count 87 L (150-450) k/uL Neutrophils # (Manual) 8.10 H (1.3-7.7) k/uL Monocytes # (Manual) 2.48 H (0-1.0) k/uL Macrocytosis Marked A ABG HCO3 (21-25) mmol/L ABG Total CO2 (19-24) mmol/L ABG O2 Saturation (94-97) % Sodium 131 L (137-145) mmol/L BUN 45 H (7-17) mg/dL Creatinine 1.64 H (0.52-1.04) mg/dL Glucose 137 H (74-99) mg/dL POC Glucose (mg/dL) 148 H (70-110) mg/dL Calcium 7.5 L (8.4-10.2) mg/dL AST 83 H (14-36) U/L Alkaline Phosphatase 184 H (38-126) U/L C-Reactive Protein 7.2 H (<1.0) mg/dL Total Protein 4.8 L (6.3-8.2) g/dL Albumin 1.9 L (3.5-5.0) g/dL Procalcitonin (0.02-0.09) ng/mL 05/20/23 Range/Units 06:09 WBC (3.8-10.6) k/uL RBC (3.80-5.40) m/uL Hgb (11.4-16.0) gm/dL Hct (34.0-46.0) % MCV (80.0-100.0) fL RDW (11.5-15.5) % Plt Count (150-450) k/uL Neutrophils # (Manual) (1.3-7.7) k/uL Monocytes # (Manual) (0-1.0) k/uL Macrocytosis ABG HCO3 27 H (21-25) mmol/L ABG Total CO2 29 H (19-24) mmol/L ABG O2 Saturation 97.9 H (94-97) % Sodium (137-145) mmol/L BUN (7-17) mg/dL Creatinine (0.52-1.04) mg/dL Glucose (74-99) mg/dL POC Glucose (mg/dL) (70-110) mg/dL Calcium (8.4-10.2) mg/dL AST (14-36) U/L Alkaline Phosphatase (38-126) U/L C-Reactive Protein (<1.0) mg/dL Total Protein (6.3-8.2) g/dL Albumin (3.5-5.0) g/dL Procalcitonin (0.02-0.09) ng/mL
--- NOTE | 2023-05-20 15:02 | P.PN ---
Subjective Patient is seen for follow-up for acute kidney injury. Started hemodialysis on May 11, 2023 for severe volume overload and poor urine output. Patient is being dialyzed daily for severe volume overload. Patient is currently on the vent. FiO2 at 25%. Maintained on levo fed at 0.03 g UF off 20 L over the last 1 week Patient does not respond to verbal stimuli. Minimal response to painful stimuli. Objective - Vital Signs Vital signs: Vital Signs Temp 99.4 F 05/20/23 12:00 Pulse 85 05/20/23 14:45 Resp 16 05/20/23 14:45 BP 143/65 05/18/23 11:53 Pulse Ox 100 05/20/23 14:45 FiO2 28 05/20/23 12:00 Intake & Output 05/19/23 05/20/23 05/20/23 18:59 06:59 18:59 Intake Total 936.838 447.506 203.494 Output Total 0 145 100 Balance 936.838 302.506 103.494 Weight 90.9 kg Intake: IV 169 143 115 .9 kvo 130 110 50 Arterial Pressure Bag NS 39 33 15 0.9% Ertapenem 0.5 gm In 50 Sodium Chloride 0.9% 50 ml @ 100 mls/hr IVPB DAILY [facility]ONI Rx#:[id number] Intake, IV Titration 182.838 214.506 43.494 Amount Norepinephrine 8 mg In 182.838 214.506 43.494 Sodium Chloride 0.9% 250 ml @ 0.03 MCG/KG/MIN 5. 759 mls/hr IV .Q24H RONI Rx#:[id number] Tube Feeding 585 90 45 Output: Urine 0 145 50 Stool 50 Other: Voiding Method Indwelling Catheter Indwelling Catheter Indwelling Catheter ABP, PAP, CO, CI - Last Documented Arterial Blood Pressure 104/47 - Exam Patient is on the vent Does not follow commands Examination of the heart S1 and S2 Examination of the lungs shows bilateral breath sounds are heard Abdomen is soft, distended with significant edema noted Examination of lower extremities shows 3-4+ edema - Labs CBC & Chem 7: 05/20/23 05:00 05/20/23 05:00 Labs: Abnormal Lab Results - Last 24 Hours (Table) 05/19/23 05/19/23 05/20/23 Range/Units 12:37 18:22 04:57 WBC (3.8-10.6) k/uL RBC (3.80-5.40) m/uL Hgb (11.4-16.0) gm/dL Hct (34.0-46.0) % MCV (80.0-100.0) fL RDW (11.5-15.5) % Plt Count (150-450) k/uL Neutrophils # (Manual) (1.3-7.7) k/uL Monocytes # (Manual) (0-1.0) k/uL Macrocytosis ABG HCO3 (21-25) mmol/L ABG Total CO2 (19-24) mmol/L ABG O2 Saturation (94-97) % Sodium (137-145) mmol/L BUN (7-17) mg/dL Creatinine (0.52-1.04) mg/dL Glucose (74-99) mg/dL POC Glucose (mg/dL) 180 H 148 H (70-110) mg/dL Calcium (8.4-10.2) mg/dL AST (14-36) U/L Alkaline Phosphatase (38-126) U/L C-Reactive Protein (<1.0) mg/dL Total Protein (6.3-8.2) g/dL Albumin (3.5-5.0) g/dL Procalcitonin 0.71 H (0.02-0.09) ng/mL 05/20/23 05/20/23 05/20/23 Range/Units 05:00 05:00 06:09 WBC 11.8 H (3.8-10.6) k/uL RBC 2.99 L (3.80-5.40) m/uL Hgb 10.2 L (11.4-16.0) gm/dL Hct 31.4 L (34.0-46.0) % MCV 105.2 H (80.0-100.0) fL RDW 19.5 H (11.5-15.5) % Plt Count 87 L (150-450) k/uL Neutrophils # (Manual) 8.10 H (1.3-7.7) k/uL Monocytes # (Manual) 2.48 H (0-1.0) k/uL Macrocytosis Marked A ABG HCO3 27 H (21-25) mmol/L ABG Total CO2 29 H (19-24) mmol/L ABG O2 Saturation 97.9 H (94-97) % Sodium 131 L (137-145) mmol/L BUN 45 H (7-17) mg/dL Creatinine 1.64 H (0.52-1.04) mg/dL Glucose 137 H (74-99) mg/dL POC Glucose (mg/dL) (70-110) mg/dL Calcium 7.5 L (8.4-10.2) mg/dL AST 83 H (14-36) U/L Alkaline Phosphatase 184 H (38-126) U/L C-Reactive Protein 7.2 H (<1.0) mg/dL Total Protein 4.8 L (6.3-8.2) g/dL Albumin 1.9 L (3.5-5.0) g/dL Procalcitonin (0.02-0.09) ng/mL Assessment and Plan Assessment: 1. Acute kidney injury, oliguric ATN secondary to hypotension and sepsis. UA shows 1+ protein and trace blood and WBCs 16. Ultrasound of the kidneys shows right kidney 10.0 cm left kidney 8.4 cm no hydronephrosis noted. Started hemodialysis on 05/11/2023 due to severe volume overload and poor urine output. 2. Non-gap metabolic acidosis secondary to acute kidney injury 3. Hyperkalemia associated with acute kidney injury, resolved 4. Non-ST elevation [place] 5. Sepsis with source most likely related to UTI as previous urine culture on 04/26/2023 showed ESBL E. coli versus the dental abscess 6. Encephalopathy , metabolic 7. Acute hypoxic respiratory failure currently on the vent 8. Severe volume overload 9. Hypokalemia status post replacement Plan: Daily hemodialysis/ultrafiltration for severe volume overload. Family may be considering comfort care measures
[2023-05-20 15:08] VITALS: BMI 39.1
--- NOTE | 2023-05-20 16:18 | P.PN ---
Subjective Progress Note Date: 05/20/23 Principal diagnosis: Reason for follow-up is leukocytosis and UTI Patient is a 82-year-old female with a past medical history significant for hypertension hyperlipidemia thrombocytopenia cirrhosis of the liver RI osteoarthritis patient was brought into the ER for evaluation of chest pain patient subsequently did have significant worsening of her mentation did have a positive UA concerning for possible component of UTI, with subsequent workup that shows evidence of dental abscess especially to tooth #29, patient did have extraction of tooth #29 along with drainage of the abscess completed on 05/09/2023.Patient did have dialysis catheter placement evening of 05/11/2023 subsequently patient did have a worsening respiratory status ended up getting intubated on 05/11/2023, the patient did get a dialysis catheter on 05/11/2023 and has been started on dialysis On today's visit that is 05/20/2023, Patient is afebrile patient is currently on ventilator, FiO2 28%, no significant purulent secretion through the ET or any other changes reported by the nursing staff. Patient white counts are 11.8 today, creatinine is 1.64 Objective - Vital Signs Vital signs: Vital Signs Temp 99.4 F 05/20/23 08:00 Pulse 72 05/20/23 11:15 Resp 20 05/20/23 11:15 BP 143/65 05/18/23 11:53 Pulse Ox 100 05/20/23 11:15 FiO2 28 05/20/23 11:23 Intake & Output 05/19/23 05/20/23 05/20/23 18:59 06:59 18:59 Intake Total 936.838 447.506 203.494 Output Total 0 145 100 Balance 936.838 302.506 103.494 Weight 90.9 kg Intake: IV 169 143 115 .9 kvo 130 110 50 Arterial Pressure Bag NS 39 33 15 0.9% Ertapenem 0.5 gm In 50 Sodium Chloride 0.9% 50 ml @ 100 mls/hr IVPB DAILY [facility] Rx#:[id number] Intake, IV Titration 182.838 214.506 43.494 Amount Norepinephrine 8 mg In 182.838 214.506 43.494 Sodium Chloride 0.9% 250 ml @ 0.03 MCG/KG/MIN 5. 759 mls/hr IV .Q24H [facility]ON[facility] Rx#:[id number] Tube Feeding 585 90 45 Output: Urine 0 145 50 Stool 50 Other: Voiding Method Indwelling Catheter Indwelling Catheter Indwelling Catheter ABP, PAP, CO, CI - Last Documented Arterial Blood Pressure 116/41 - Exam GENERAL DESCRIPTION: An elderly Female intubated on the vent RESPIRATORY SYSTEM: Unlabored breathing , decreased breath sounds at bases HEART: S1 S2 regular rate and rhythm , ABDOMEN: Soft , no tenderness EXTREMITIES: No edema feet - Labs CBC & Chem 7: 05/20/23 05:00 05/20/23 05:00 Labs: Abnormal Lab Results - Last 24 Hours (Table) 05/19/23 05/19/23 05/20/23 Range/Units 12:37 18:22 04:57 WBC (3.8-10.6) k/uL RBC (3.80-5.40) m/uL Hgb (11.4-16.0) gm/dL Hct (34.0-46.0) % MCV (80.0-100.0) fL RDW (11.5-15.5) % Plt Count (150-450) k/uL Neutrophils # (Manual) (1.3-7.7) k/uL Monocytes # (Manual) (0-1.0) k/uL Macrocytosis ABG HCO3 (21-25) mmol/L ABG Total CO2 (19-24) mmol/L ABG O2 Saturation (94-97) % Sodium (137-145) mmol/L BUN (7-17) mg/dL Creatinine (0.52-1.04) mg/dL Glucose (74-99) mg/dL POC Glucose (mg/dL) 180 H 148 H (70-110) mg/dL Calcium (8.4-10.2) mg/dL AST (14-36) U/L Alkaline Phosphatase (38-126) U/L C-Reactive Protein (<1.0) mg/dL Total Protein (6.3-8.2) g/dL Albumin (3.5-5.0) g/dL Procalcitonin 0.71 H (0.02-0.09) ng/mL 05/20/23 05/20/23 05/20/23 Range/Units 05:00 05:00 06:09 WBC 11.8 H (3.8-10.6) k/uL RBC 2.99 L (3.80-5.40) m/uL Hgb 10.2 L (11.4-16.0) gm/dL Hct 31.4 L (34.0-46.0) % MCV 105.2 H (80.0-100.0) fL RDW 19.5 H (11.5-15.5) % Plt Count 87 L (150-450) k/uL Neutrophils # (Manual) 8.10 H (1.3-7.7) k/uL Monocytes # (Manual) 2.48 H (0-1.0) k/uL Macrocytosis Marked A ABG HCO3 27 H (21-25) mmol/L ABG Total CO2 29 H (19-24) mmol/L ABG O2 Saturation 97.9 H (94-97) % Sodium 131 L (137-145) mmol/L BUN 45 H (7-17) mg/dL Creatinine 1.64 H (0.52-1.04) mg/dL Glucose 137 H (74-99) mg/dL POC Glucose (mg/dL) (70-110) mg/dL Calcium 7.5 L (8.4-10.2) mg/dL AST 83 H (14-36) U/L Alkaline Phosphatase 184 H (38-126) U/L C-Reactive Protein 7.2 H (<1.0) mg/dL Total Protein 4.8 L (6.3-8.2) g/dL Albumin 1.9 L (3.5-5.0) g/dL Procalcitonin (0.02-0.09) ng/mL Assessment and Plan (1) Leukocytosis Current Visit: Yes Status: Acute Code(s): D72.829 - ELEVATED WHITE BLOOD CELL COUNT, UNSPECIFIED SNOMED Code(s): 771028374 (2) Allergy to multiple antibiotics Current Visit: Yes Status: Acute Code(s): Z88.1 - ALLERGY STATUS TO OTHER ANTIBIOTIC AGENTS SNOMED Code(s): 955731655 (3) Urinary tract infection Current Visit: No Status: Acute Code(s): N39.0 - URINARY TRACT INFECTION, SITE NOT SPECIFIED SNOMED Code(s): 73383554 Plan: 1patient with sepsis, source likely infected tooth and abscess patient has been evaluated by oral surgery and plan is status post extraction of tooth #29 and drainage of the abscess cultures are currently growing Staphylococcus hemolyticus and Sabrina 2-patient is afebrile, slight worsening of the white count 14.8 however repeat culture remains to be negative for resistant pathogen 3- patient white count is trending down and did have resolution of her fever 4patient to continue with Invanz daptomycin and Eraxis and monitor clinical course closely Dictation was produced using [employer] dictation software. please excuse any grammatical, word or spelling errors. Time with Patient: Less than 30
[2023-05-20 18:26] LABS: Glucose,Whole Blood 168 mg/dL (70-110)
[2023-05-21 00:09] LABS: Glucose,Whole Blood 162 mg/dL (70-110)
[2023-05-21 06:03] LABS: Glucose,Whole Blood 160 mg/dL (70-110)
[2023-05-21 06:03] LABS: ABG HCO3 26 mmol/L (21-25); ABG PCO2 40 mmHg (35-45); ABG PH 7.43 (7.35-7.45); ABG PO2 109 mmHg (83-108); ABG TCO2 28 mmol/L (19-24); Allen Test Performed? Yes
[2023-05-21 06:04] LABS: ABG Oxygen Saturation 98.5 % (94-97)
[2023-05-21 06:35] LABS: Anisocytosis Slight; HCT 30.6 % (34.0-46.0); Hypochromasia Slight; MCH 34.1 pg (25.0-35.0); MCHC 32.7 g/dL (31.0-37.0); MCV 104.5 fL (80.0-100.0); Macrocytosis Marked; Mean Platelet Volume 10.6; Poikilocytosis Slight; RBC 2.93 m/uL (3.80-5.40); RDW 19.3 % (11.5-15.5); WBC 11.2 k/uL (3.8-10.6)
[2023-05-21 06:42] LABS: African American GFR (CKD) 30 (>60 ml/min/1.73 sqM); Anion Gap 7 mmol/L; Blood Urea Nitrogen 62 mg/dL (7-17); Calcium 7.6 mg/dL (8.4-10.2); Carbon Dioxide 22 mmol/L (22-30); Chloride 102 mmol/L (98-107); Glucose 161 mg/dL (74-99); Non-African American GFR(CKD) 26 (>60 ml/min/1.73 sqM); Potassium 4.6 mmol/L (3.5-5.1); Sodium 131 mmol/L (137-145)
[2023-05-21 06:47] LABS: Platelet Count 77 k/uL (150-450)
--- NOTE | 2023-05-21 08:35 | P.PN ---
Subjective Patient is seen in follow-up for acute kidney injury. Intubated. On vasopressors. Oliguric. Started on dialysis May 11, 2023. Receiving tube feeds. Vital signs are stable. On Levophed. General: No acute distress. HEENT: Intubated. LUNGS: Scattered rhonchi. HEART: Rate and Rhythm are regular. ABDOMEN: Nontender. EXTREMITITES: 2+ edema. Objective - Vital Signs Vital signs: Vital Signs Temp 100.1 F H 05/21/23 06:00 Pulse 93 05/21/23 06:00 Resp 19 05/21/23 06:00 BP 148/51 05/20/23 16:03 Pulse Ox 100 05/21/23 06:00 FiO2 28 05/21/23 08:21 Intake & Output 05/20/23 05/21/23 05/21/23 18:59 06:59 18:59 Intake Total 411.320 4220.810 Output Total 3610 26 Balance -2766.316 980.810 Weight 90.9 kg 90 kg Intake: IV 206 156 .9 kvo 120 120 Arterial Pressure Bag NS 36 36 0.9% Ertapenem 0.5 gm In 50 Sodium Chloride 0.9% 50 ml @ 100 mls/hr IVPB DAILY [facility] Rx#:[id number] Intake, IV Titration 86.684 214.810 Amount Norepinephrine 8 mg In 86.684 214.810 Sodium Chloride 0.9% 250 ml @ 0.03 MCG/KG/MIN 5. 759 mls/hr IV .Q24H RONI Rx#:[id number] Tube Feeding 151 636 Hemodialysis 400 Output: Urine 110 26 Stool 100 Hemodialysis 3400 Other: Voiding Method Indwelling Catheter ABP, PAP, CO, CI - Last Documented Arterial Blood Pressure 119/51 - Labs CBC & Chem 7: 05/21/23 06:14 05/21/23 06:14 Labs: Abnormal Lab Results - Last 24 Hours (Table) 05/20/23 05/21/23 05/21/23 Range/Units 18:25 00:07 05:59 WBC (3.8-10.6) k/uL RBC (3.80-5.40) m/uL Hgb (11.4-16.0) gm/dL Hct (34.0-46.0) % MCV (80.0-100.0) fL RDW (11.5-15.5) % Plt Count (150-450) k/uL Macrocytosis ABG pO2 109 H (83-108) mmHg ABG HCO3 26 H (21-25) mmol/L ABG Total CO2 28 H (19-24) mmol/L ABG O2 Saturation 98.5 H (94-97) % Sodium (137-145) mmol/L BUN (7-17) mg/dL Creatinine (0.52-1.04) mg/dL Glucose (74-99) mg/dL POC Glucose (mg/dL) 168 H 162 H (70-110) mg/dL Calcium (8.4-10.2) mg/dL 05/21/23 05/21/23 05/21/23 Range/Units 06:02 06:14 06:14 WBC 11.2 H (3.8-10.6) k/uL RBC 2.93 L (3.80-5.40) m/uL Hgb 10.0 L (11.4-16.0) gm/dL Hct 30.6 L (34.0-46.0) % MCV 104.5 H (80.0-100.0) fL RDW 19.3 H (11.5-15.5) % Plt Count 77 L (150-450) k/uL Macrocytosis Marked A ABG pO2 (83-108) mmHg ABG HCO3 (21-25) mmol/L ABG Total CO2 (19-24) mmol/L ABG O2 Saturation (94-97) % Sodium 131 L (137-145) mmol/L BUN 62 H (7-17) mg/dL Creatinine 1.78 H (0.52-1.04) mg/dL Glucose 161 H (74-99) mg/dL POC Glucose (mg/dL) 160 H (70-110) mg/dL Calcium 7.6 L (8.4-10.2) mg/dL Microbiology - Last 24 Hours (Table) 05/19/23 12:37 Blood Culture - Preliminary Blood Assessment and Plan Plan: Assessment: 1. Acute kidney injury secondary to ATN secondary to septic shock. Creatinine 1.19 on admission and peaked at 3.07 this admission. Left kidney is small. No hydronephrosis noted. Started on hemodialysis May 11, 2023 due to volume overload. Oliguric. 2. Septic shock on vasopressors. Concern for UTI versus dental abscess. 3. Hyperkalemia secondary to acute kidney injury and LR. Improved. 4. Volume overload. Improving with ultrafiltration. 5. Hypervolemic hyponatremia. 6. Non-ST elevated myocardial infarction. 7. Acute hypoxic respiratory failure. Plan: Continue with daily dialysis for now. Challenge ultrafiltration as able to tolerate. Maintain tube feeds. Wean vasopressors and FiO2. Maintain midodrine. Avoid nephrotoxins. Plan for comfort measures tomorrow.
[2023-05-21] MEDS: NOREPINEPHRINE 8 MG in SODIUM CHLORIDE 0.9% 250 ML IV SCH (08:54)
[2023-05-21 08:58] LABS: Basophils # (M) 0.22 k/uL (0-0.2); Lymphocytes # (M) 1.01 k/uL (1.0-4.8); Neutrophils # (M) 8.18 k/uL (1.3-7.7); Neutrophils % (M) 73 %; Nucleated Red Blood Cells 0 /100 WBC (0-0); Total Cells Counted 200
--- NOTE | 2023-05-21 10:19 | P.PN ---
Subjective Progress Note Date: 05/21/23 Hospital Course: Patient is an 82-year-old female with known cirrhosis, coronary artery disease status post stenting, chronic systolic congestive heart failure with ejection fraction 45%, hypertension, dyslipidemia, chronic pancytopenia with ITP who initially presented to the emergency department with chest pain and shortness of breath. In the ER she underwent extensive evaluation. On arrival she was tachycardic and tachypneic but saturating well on room air. EKG demonstrated sinus tachycardia with known left bundle branch block. Chest x-ray showed pulmonary vascular congestion. She subsequently underwent CT of the aorta which demonstrated striated left thyroid mass, bilateral pleural effusions, T7 and 8 compression fractures, left posterior eighth rib fracture, fracture of the left scapula, moderately enlarged heart, no signs of aortic rupture. Labs were remarkable for WBC count 1.6, hemoglobin 11.3, platelet count 41, INR 1.3, sodium 131, BUN 33, creatinine 1.19, total bili 4.2, AST 44, troponin 0.064 and proBNP 2360. Her troponin continued to uptrend. Cardiology was consulted and felt this was a type II NSTEMI, no further testing warrented. Echocardiogram showed mild LV systolic function decrease EF 45%, severely enlarged left atrium. Orthopedic surgery was consulted. Patient did get slightly more encephalopathic, and had low blood sugars, previous urinalysis was positive, urine culture was positive for ESBL. Repeat urinalysis shows a dirty sample. ID was consulted and patient placed on IV antibiotics, ertapenem. Patient also developed oliguric SCOOTER. A CT face showed neck mass of 3 x 4 cm and right maxillary inflammatory changes. ENT and maxillofacial surgery were consulted. ENT recommended IR consult and after review, radiology deferred this procedure d ue to stable imaging/finding of left neck mass/thyroid mass from prior imaging. Maxillofacial surgery took patient for dental extraction with abscess drainage of the right mandible. Patient required transfer to the ICU on 05/07 for septic shock requiring vasopressor. On 05/12/2023 patient became more encephalopathic with worsening hypercapnic respiratory failure, increasing pressors requirements and then he became oliguric. She was subsequently intubated, started on vasopressin, also had dialysis catheter placed and started on dialysis.By 05/17 patient has been off of sedation for over 3 days, with minimal improvement in mental status. Plan is for trach and peg and surgery was consulted. Subjective: Pts family has decided on comfort care and request to initiate tomorrow AM - pt is no code. Vitals Signs Reviewed. General: intubated, sedated HEENT: normocephalic, atraumatic, no tracheal deviation Respiratory: symmetric chest rise, no cyanosis, ventilator dependent CVS: perfusing all extremities, no distal gangrene, bilateral pitting edema GI: soft, ND : no SPT, no CVAT, bedoya is present Neuro: sedated Assessment/plan: Acute encephalopathy, multifactorial, hepatic and metabolic Septic Shock with with possible sources: - urinary tract infection, prior cultures growing ESBL -Dental abscess status post surgical I and D with tooth extraction Acute hypoxic and hypercapnic respiratory failure, now ventilator dependent Pleural effusions bilateral Liver cirrhosis Macrocytic anemia, thrombocytopenia in the setting of liver disease -Discussed management with pulmonology, continue to wean pressors, continue respiratory support, continue hemodialysis -Case discussed with infectious disease. Will continue with current treatment with daptomycin, Eraxis, and ertapenem. Will consider de-escalating antibiotics once vasopressor requirements have stabilized. -ertapenem 0.5 g IV daily, on daptomycin 400 mg IV every 48 hours, Eraxis 100 mg IV daily -Patient did have to go up on her norepinephrine during dialysis. Continue with midodrine 10 mg 3 times daily. Continue to hold metoprolol 12.5 mg daily -Patient was on primidone for tremors, discontinued -Having frequent bowel movements and lactulose was decreased to 30 daily -General surgery will consider trach and PEG if family in agreement. Plan will be for 05/20/2023. Acute kidney injury now requiring hemodialysis Hyponatremia, hypervolemic - iHD per nephrology - appreciate Nephrology recs Anemia, thrombocytopenia - stable - follow CBC T7-8 compression fractures 30 to 40% Acute posterior eighth rib fracture -Orthopedic surgery signed off, patient not a surgical candidate -Continue with gabapentin 100 mg daily for pain control NSTEMI, likely type II New onset Afib with controlled ventricular rate History of CAD status post stent -Cardiology signed off, recommended medical management -Continue aspirin 81 mg -On amiodarone 200 gm BID for rate control, metoprolol 12.5 daily is being held, no anticoagulation due to thrombocytopenia Thyroid mass -Outpatient follow-up DVT prophylaxis: Heparin Anticipated discharge date: Pending clinical course Anticipated discharge place: Pending clinical course This dictation was prepared using [employer] voice recognition software. Though every attempt is made to correct errors during dictation some may still exist. Objective - Vital Signs Vital signs: Vital Signs Temp 100.3 F H 05/21/23 08:00 Pulse 93 05/21/23 10:00 Resp 26 H 05/21/23 09:00 BP 148/51 05/20/23 16:03 Pulse Ox 100 05/21/23 10:00 FiO2 28 05/21/23 08:21 Intake & Output 05/20/23 05/21/23 05/21/23 18:59 06:59 18:59 Intake Total 326.026 9285.810 335.255 Output Total 3610 26 20 Balance -2766.316 980.810 315.255 Weight 90.9 kg 90 kg Intake: IV 206 156 89 .9 kvo 120 120 30 Arterial Pressure Bag NS 36 36 9 0.9% Ertapenem 0.5 gm In 50 50 Sodium Chloride 0.9% 50 ml @ 100 mls/hr IVPB DAILY [facility]I Rx#:[id number] Intake, IV Titration 86.684 214.810 4.255 Amount Norepinephrine 8 mg In 86.684 214.810 Sodium Chloride 0.9% 250 ml @ 0.03 MCG/KG/MIN 5. 759 mls/hr IV .Q24H [facility]ONI Rx#:[id number] Norepinephrine 8 mg In 4.255 Sodium Chloride 0.9% 250 ml @ 0.03 MCG/KG/MIN 5. 759 mls/hr IV .Q24H [facility]ONI Rx#:[id number] Tube Feeding 151 636 212 Hemodialysis 400 Other 30 Output: Urine 110 26 20 Stool 100 Hemodialysis 3400 Other: Voiding Method Indwelling Catheter ABP, PAP, CO, CI - Last Documented Arterial Blood Pressure 95/40 - Labs CBC & Chem 7: 05/21/23 06:14 05/21/23 06:14 Labs: Abnormal Lab Results - Last 24 Hours (Table) 05/20/23 05/21/23 05/21/23 Range/Units 18:25 00:07 05:59 WBC (3.8-10.6) k/uL RBC (3.80-5.40) m/uL Hgb (11.4-16.0) gm/dL Hct (34.0-46.0) % MCV (80.0-100.0) fL RDW (11.5-15.5) % Plt Count (150-450) k/uL Neutrophils # (Manual) (1.3-7.7) k/uL Monocytes # (Manual) (0-1.0) k/uL Basophils # (Manual) (0-0.2) k/uL Macrocytosis ABG pO2 109 H (83-108) mmHg ABG HCO3 26 H (21-25) mmol/L ABG Total CO2 28 H (19-24) mmol/L ABG O2 Saturation 98.5 H (94-97) % Sodium (137-145) mmol/L BUN (7-17) mg/dL Creatinine (0.52-1.04) mg/dL Glucose (74-99) mg/dL POC Glucose (mg/dL) 168 H 162 H (70-110) mg/dL Calcium (8.4-10.2) mg/dL 05/21/23 05/21/23 05/21/23 Range/Units 06:02 06:14 06:14 WBC 11.2 H (3.8-10.6) k/uL RBC 2.93 L (3.80-5.40) m/uL Hgb 10.0 L (11.4-16.0) gm/dL Hct 30.6 L (34.0-46.0) % MCV 104.5 H (80.0-100.0) fL RDW 19.3 H (11.5-15.5) % Plt Count 77 L (150-450) k/uL Neutrophils # (Manual) 8.18 H (1.3-7.7) k/uL Monocytes # (Manual) 1.90 H (0-1.0) k/uL Basophils # (Manual) 0.22 H (0-0.2) k/uL Macrocytosis Marked A ABG pO2 (83-108) mmHg ABG HCO3 (21-25) mmol/L ABG Total CO2 (19-24) mmol/L ABG O2 Saturation (94-97) % Sodium 131 L (137-145) mmol/L BUN 62 H (7-17) mg/dL Creatinine 1.78 H (0.52-1.04) mg/dL Glucose 161 H (74-99) mg/dL POC Glucose (mg/dL) 160 H (70-110) mg/dL Calcium 7.6 L (8.4-10.2) mg/dL Microbiology - Last 24 Hours (Table) 05/20/23 11:05 Gram Stain - Preliminary Sputum 05/19/23 12:37 Blood Culture - Preliminary Blood
[2023-05-21 11:44] LABS: Glucose,Whole Blood 131 mg/dL (70-110)
--- NOTE | 2023-05-21 12:29 | P.PN ---
Subjective Progress Note Date: 05/21/23 Principal diagnosis: Acute on chronic hypoxic and hypercapnic respiratory failure secondary to pulmonary edema/fluid overload and bilateral pleural effusion This is an 82-year-old female patient with a history of liver cirrhosis, pancytopenia, coronary artery disease with previous stent placement, compression fracture of T7 and T8, acute left posterior eighth rib fracture, thyroid mass, new onset atrial fibrillation and non-ST segment elevation myocardial infarction. She had been admitted back on 04/29/2023 with chest pain and shortness of breath. Echocardiogram revealed impaired left ventricular systolic function with ejection fraction 45%. She was being cared for on the selective care unit. Last evening at a approximately 1145 and rapid response team was called due to hypotension with blood pressure 70 over 40s. She received 100 mL of fluid resuscitation and was transferred to the intensive care unit and initiated on norepinephrine. She is seen today in consultation. She is lethargic. Minimally responsive. She had been calling out in pain earlier. When she was repositioned she settled down. This is felt to be secondary to her compression fractures and rib fractures. He does have a stage II decubitus ulcer. She also has severe suspected neuropathy of the bilateral lower extremities. She is maintaining good O2 saturation in the mid 90s on 2 L/min per nasal cannula. 0.08 mcg/kg/min. She has normal staying at 80 MLS per hour. White count 11.9. Platelets 55,000. Sodium 130. Potassium 4.9. Bicarb 33. BUN 74. Creatinine 2.78. Glucose 137. Urine culture reveals no growth. Currently on ertapenem. X-ray reveals cardiomegaly with mild central vascular congestion and interstitial opacities suggesting edema. Small to moderate bibasilar pleural effusions with adjacent atelectasis. On today's evaluation of 05/09/2023, the patient is being seen for a follow-up. As mentioned, the patient was transferred to the intensive care unit yesterday because of hypotension. She has multiple medical problems including coronary artery disease and previous coronary intervention and stenting and the patient also has liver cirrhosis, and she did encounter a new onset atrial fibrillation. At the same time, the patient is suspected to be septic. The patient has been treated with IV fluids. The patient continues to be on pressors and the patient is currently on norepinephrine running 0.14 mcg/kg/min. IV fluids are running in the rate of 50 cc an hour of normal saline. The patient is currently on IV Invanz. The white cell count today is 11.1. Hemoglobin is at 11 and a platelet count is at 55. Note that the patient has chronic thrombocytopenia related to her chronic liver disease. She also had an acute kidney injury and the cre atinine peaked at 3 and currently is downtrending down to 2.65. Potassium level today is at 5.8 with a sodium level of 132. LFTs are abnormal with an alkaline phosphatase of 314, AST of 51 and ALT of 21. Her procalcitonin level was at 2.53 and her free T4 was 1.36 with a TSH of 5.9. UA was abnormal suspicious for an underlying urinary tract infection and cultures are still pending for now. Meanwhile, the CAT scan of the abdomen and pelvis that was obtained on 05/04/2023 showed no evidence of any acute intra-abdominal process. Nodular contour of the liver was suggestive of liver cirrhosis and the patient had signs of portal hypertension and cardiomegaly and pulm vascular congestion. The CAT scan of the face that was done on 05/04/2023 showed a soft tissue masslike area in the inferior left neck measuring 47 x 36 mm in size and inflammatory changes along the right mandible without an organizing collection. A head and neck abscess cannot be completely ruled out at this point in time. Neurologically, the patient is encephalopathic. She has episodes of crying and yelling and she r emains altered. Her the serum ammonia level was 17. The patient remains on lactulose which is unfortunately being given through the rectal source which is causing significant amount of contamination. At the same time, cardiac rhythm is currently controlled and she remains in atrial fibrillation. She remains on amiodarone 200 mg p.o. twice a day. The Toprol has been placed on hold based on her underlying hypotension. Her echocardiogram from 04/30/2023 showed a ejection fraction of 45%, mild RV dilatation, mild mitral regurgitation, no other significant abnormalities noted. On today's evaluation of 05/10/2023, the patient is being seen for a follow-up. The patient is in the intensive care unit for sepsis and hypotension. Note that the patient underwent an evaluation by the oral surgeon yesterday and the patient was found to have a dental abscess tooth #[id number] and surgical extraction of the tooth was done and cultures were sent. At the same time, we are suspecting an underlying urine tract infection as another source of sepsis the patient and the patient is currently on IV Invanz as the patient has had previous ESBL producing E. coli in her urine based on the culture that was obtained on 04/26/2023. The patient remains on pressors. She is on norepinephrine running at 0.15 mcg/kg/min. IV fluids are in the form of D5.9 at the rate of 50 cc an hour. Urine output is in order of 30 cc an hour and there is also interval improvement of creatinine which is down to 2.4 with a BUN of 78. Sodium levels at 133 with a potassium level of 5.2. The white cell count is at 10.2 with a hemoglobin of 10.4 and a platelet count of 85. Note that the patient has chronic thrombocytopenia related to her chronic liver disease. She is arousable. She is awake. She is on oxygen at 2 L with a pulse ox of 96%. On 05/11/2023, the patient is more lethargic compared to yesterday. There has been progressive worsening in her mentation and this has been noted throughout the day. In the morning, she was still arousable and later on during the day, the patient became quite obtunded. Based on that, the patient was given a stat CAT scan of the brain that showed no acute intracranial abnormalities. The patient's CAT scan of the brain showed Moderate bifrontal atrophy and old lacunar infarct in the left basal ganglia. There was also slightly heterogeneous appearance of the brainstem felt to be related to a prominent skull base artifact. Subsequently, the patient was given a blood gas that showed a pH of 7.11 with a pCO2 of 93 and pO2 117 and the patient's mental status is most like related to hypercapnic respiratory failure and CO2 narcosis. Chest x-ray that was done earlier this morning that showed cardiomegaly and pulm vascular congestion but the pleural fluid. Fluid balance has been +1 L over the past 24 hours and the patient has been persistently in a positive fluid balance and the patient has diffuse anasarca related to her liver failure and sepsis. The BUN is at 72 with a creatinine of 2.4 and sodium is at 136. WBC count is at 8.2 with a hemoglobin 9.8 and a platelet count of 76. She remains hypotensive. She remains on pressors and the patient is currently on norepinephrine running at 0.09 mcg/kg/min. Her pressor requirements are slightly improved compared to yesterday. She remains on D5 normal saline today stopped 50 cc an hour.. In terms of her cultures, the patient's oral culture is showing some anaerobic growth. She also has Sabrina albicans. Blood cultures were negative. Urine cultures also been negative. The patient remains on IV antibiotics and antibiotics has been modified to a combination of IV Eraxis, daptomycin and IV Invanz. on today's evaluation of 05/12/2023, I am seeing the patient for a follow-up. Events from yesterday were noted. The patient went into hypercapnic respiratory failure and she became altered and obtunded and based on that, and that intubating the patient and placed on mechanical ventilator for acute on chronic hypoxic and hypercapnic respiratory failure. Also, the patient was in significant fluid overload. Immediately postintubation, dialysis catheter was obtained and the patient was started on hemodialysis with ultrafiltration and a total of 2 L of fluid was removed yesterday. This morning, the patient remains intubated on the mechanical ventilator. She is currently on propofol running at 40 mcg/kg/min. She is on assist-control with rate of 26 with a tidal volume of 400 FiO2 40% with a PEEP of 5. Blood gas from this morning showed respiratory alkalosis with a pH of 7.58 and a pCO2 of 29 and pO2 of 77. Based on that, the respiratory rate was dropped down to 77. Chest x-ray from today showing cardiomegaly. There is bilateral pleural effusion worse on the right which is slightly improved compared to yesterday. ET tube is in a good location and the patient also has a triple-lumen catheter in her left IJ and a dialysis catheter in her right IJ. She is still hypotensive. Norepinephrine is running at 0.16 mcg/kg/min. The patient is also on physiologic dose of vasopressin A arterial line catheter was also inserted yesterday and her blood pressure is stable for now with a mean arterial pressure of around 80. Her cardiac rhythm is atrial fibrillation. In terms of the rest of the blood work, the patient has a white cell count of 12.2 with a hemoglobin 9.8 and a platelet count of 103. BUN is at 56 and the creatinine is up down to 1.7. Potassium is down to 4.5 and his sodium level is at 135. Her serum ammonia level is at 23. She continues to have significant amount of third spacing, peripheral edema and diffuse anasarca. In terms of her antibiotic coverage, the patient is currently on a combination of IV Invanz, daptomycin and Eraxis. Enteral feeding has not been started yet. On today's evaluation of 05/13/2023, the patient is being seen for a follow-up. The patient remains intubated on the mechanical ventilator. On today's evaluation, the patient is on propofol which is running at 40 mcg/kg/min. The patient is calm and comfortable and the patient is essentially centralized on the mechanical ventilator. On today's evaluation, the patient is on assist- control mode of mechanical ventilation and she is on a rate of 20, tidal volume of 400, FiO2 at 40% with a PEEP of 5. The chest x-ray is showing cardiomegaly and bilateral pleural effusions slightly improved and the ET tube is in a good location. The blood gas show a pH of 7.50 with a pCO2 of 35 and a pO2 of 118 and this was on FiO2 of 40%. No significant orotracheal secretions. The patient hemodynamically is still pressor dependent. She is currently on norepinephrine running at 0.2 mcg/kg/min and her norepinephrine dose is being titrated as the patient is undergoing hemodialysis and she is having variation and fluctuations in blood pressure. She is also on physiologic dose of vasopressin. No other hemodialysis was performed yesterday with a total of 2 point liters of ultrafiltration. Another session of hemodialysis being done today. The patient remains on Lasix 60 mg IV push every 12 hours. The fluid balance over the past 24 hours has been negative as the patient is making some urine output in the same time the patient is being dialyzed and ultrafiltrate it. Antibiotic coverage includes a combination of Invanz, Eraxis and daptomycin. Note that the patient had blood culture sent and the results are still pending for now. The cultures from the mouth and the right mandible were positive for staph hemolyticus and Sabrina albicans. The patient at the same ti me is in atrial fibrillation. The patient is on vital high-protein at the rate of 32 cc an hour and the patient seems to be tolerating her enteral feeding without any major difficulties. WBC count 11.7 with a hemoglobin 9.7 and a platelet count of 111. Sodium is at 132 with a potassium level of 3.7, BUN is 44 with a creatinine of 1.5 and a glucose of 154. LFTs are showing some mild elevation of the alkaline phosphatase at 218 and a total of 10 protein is at 4.5 with an albumin of 1.9. On 05/14/2023, the patient is being seen for a follow-up. Remains intubated on the mechanical ventilator. Sedation was discontinued yesterday and she has been off sedation for approximately 12 hours. She is sluggishly responsive to painful stimulation. Unable to communicate. Profoundly lethargic and sleepy. Most recent ammonia level was 2424 from yesterday. The patient remains on lactulose 30 g once a day and we are monitoring bowel movement activity on this patient. As mentioned earlier, the patient has liver cirrhosis, massive fluid overload, renal failure, respiratory failure requiring intubation mechanical ventilation and the patient is undergoing daily dialysis with ultrafiltration. Dialysis was done yesterday and approximately 2 L of fluid was removed. The goal for today is around 3 L. She continues to have diffuse anasarca, extensive edema in all 4 extremities, and the chest x-ray still showing bilateral pleural effusion which is essentially unchanged. While on the mechanical ventilator, she is on assist-control mode with rate of 14, tidal volume of 400, FiO2 40% with a PEEP of 5. Blood gas shows a pH of 7.58 with a pCO2 of 29 and pO2 of 77 and this was an FiO2 of 40%. Rest of the blood work and electrolytes show a sodium level of 135, potassium level is at 4.5, BUN is at 56 with a creatinine of 1.7. Potassium level is at 4.5. LFTs are normal with mild elevation of alkaline phosphatase at 240. Serum albumin is at 1.9 with a total protein of 4.4. She is afebrile. She remains on a combination of antibiotics. She is on IV Invanz, Eraxis and daptomycin. Hemodynamically, she is still requiring pressors and the patient is currently on norepinephrine at 0.15 mcg/kg/min. IV fluids are currently at KVO. Enteral feeding for nutritional support is being provided and the patient is currently on vital high-protein at a rate of 32 cc an hour. She is afebrile for now. No other significant events overnight. 05/15/2023, the patient is being seen for a follow-up. The patient is undergoing daily hemodialysis. Yesterday she underwent hemodialysis ultrafiltration with 2 L of fluid removed and the same was done earlier this morning prior to my arrival. This morning, the patient is still off the propofol. She is grimacing to painful stimulation. However, she is still significantly encephalopathic and obtunded. Note that she has also history of liver cirrhosis and she has a component of hepatic encephalopathy, and metabolic encephalopathy. Postintub ation, drugs were provided in the form of propofol which may be also contributing to her diminished level of consciousness. In terms of her acid- base balance, her pCO2 has improved and she remains on mechanical ventilator and the most recent vent setting including assist-control of 14, tidal volume of 350, FiO2 of 30% with a PEEP of 5. pH is 7.39 with a pCO2 of 46 and pO2 of 105. Repeat chest x-ray from today shows improvement in volume status. There is diminution of the bilateral pleural effusions. She continues to have significant fluid overload with third spacing and edema in all 4 extremities. Hemodynamically, the patient is still on norepinephrine which has been weaned down to 0.09 mcg/kg/min. Her white cell count is at 9.9. She is afebrile. Hemoglobin is at 9.9 and a white cell count is at 14.4. Platelet count is at 91. Rest of blood work shows a BUN of 20, creatinine of 0.8, sodium levels at 137 and a potassium level of 3.1. The patient remains essentially on the same antibiotic coverage and she is on a combination of daptomycin, IV Invanz and Eraxis. In terms of enteral feeding, she remains on vital HP at a rate of 32 cc an hour which is at goal. In terms of bowel movement activity, the patient remains on lactulose for hepatic encephalopathy. The most recent ammonia level is currently at 24 Patient was reevaluated today on 05/16/2023, martha in the ICU, intubated and mechanically ventilated, on hemodialysis. Patient is on assist-control rate of 14 tidal volume 350 FiO2 30% and PEEP of 5. Patient is not sedated has been off propofol since 05/12, she is requiring a small dose of norepinephrine at 0.06 mcg/kg/min, ABG showed a pO2 of 373 pCO2 45 pH of 7.40 patient is now on 50% FiO2. Patient remains on daptomycin, Eraxis, and Invanz, chest x-ray showed endotracheal tube to tube to be far down in the carinal area, and this needs to be pulled up about 2 cm patient is developing drop in her platelets, remains on subcu heparin, and will continue to monitor the platelets. Chest x-ray continues to show small bilateral pleural effusions, patient will not require thoracentesis at this point since she is receiving hemodialysis/ultrafiltration. WBC count is 14 hemoglobin 9.2. Basic metabolic profile is normal except for potassium of 3.3 BUN of 29 creatinine 1.25. Her blood cultures have been negative however cultures from the right mandible/wound cultures grew positive for Staphylococcus hemolyticus, antibiotics as noted earlier. Including da ptomycin, Eraxis, and Invanz Patient was reevaluated today at 05/17/2023, remains in the ICU, intubated and mechanically ventilated, patient is on assist-control rate 14 tidal volume 350 FiO2 28%, and PEEP of 5 ABG showed a pO2 of 88 pCO2 45 pH of 7.41, and is requiring a tiny dose of norepinephrine at 0.03 mcg/kg/min, she is also receiving vital HP at 32 cc/h. Antibiotics hernandez remains on Eraxis daptomycin and Invanz. Patient is receiving Lasix at 60 mg IV push every 12 hours. Patient is intermittently getting hemodialysis/ultrafiltration, patient has hardly any urine output, patient had a total ultrafiltration of 16.5 L over the last 1 week chest x-ray continues to show mild pulmonary edema, and the patient continues to have bipedal edema. WBC count today is 14.8 hemoglobin is 9.2. A BG as noted above, basic metabolic profile is normal BUN is 28 creatinine 1.15 reevaluate today on 05/18/2023, remains in the ICU intubated and mechanically ventilated, on assist-control rate of 14 tidal volume 350 FiO2 28% PEEP of 5 ABG showed a pO2 of 95 pCO2 44 pH of 7.43. Patient is still requiring Levophed at 0.12 mcg/kg/min, being titrated to maintain adequate blood pressure, she is on IV fluids at KVO, vital HP at 45/45, patient continues to have significant amount of secretions, failed a trial of weaning yesterday, another trial will be given today, patient is not requiring any sedation. Today should the patient be given another trial of pressure support and CPAP, I have discontinued Lasix because it does not seem to be contributing much to urine output, patient is being dialyzed. Remains on Eraxis daptomycin and Invanz. Not much of a change is noted to the last 24 hours. Patient was initially admitted on 04/30, intubated on 05/11, and by Tuesday it will be at least 11 or 12 days of intubation, hence I am recommending surgical evaluation for possible tracheostomy if the patient continues to fail weaning. Weaning trials will be given again today with pressure support and CPAP chest x-ray continues to show small to moderate bilateral pleural effusions and atelectasis. WBC count is 18 hemoglobin is 10.4. Cancer leukocytosis seems to be worsening in spite of antibiotics basic metabolic profile is normal BUN is 24 creatinine 1.18. Patient was reevaluated today on 05/19/2023, patient remains in the ICU, intubated and mechanically ventilated. She is on assist-control rate of 14 tidal volume 350 FiO2 28% and PEEP of 5 ABG showed a pO2 of 104 pCO2 43 pH of 7.45 patient is still requiring norepinephrine at 0.09 mcg/kg/min, she is on vital HP for nutritional support at 10 cc/h the goal is 45. Patient remains on Eraxis, Invanz, and daptomycin. Her last hemodialysis was 05/17, and she may get another dialysis today. Family today is at bedside, and we discussed that options including tracheostomy patient has been a failure to wean mostly because she has been tried almost on a daily basis on pressure support and CPAP, and she is extremely unable to tolerate even pressure support with CPAP. And she is only lasting a very short limited. Of time. Today I updated the family about her condition, discussed the different options including the option of tracheostomy and PEG tube, also discussed the option of comfort care. Family is yet undecided, they would likely make a decision by the afternoon today WBC count is 13 hemoglobin is 10 basic metabolic profile is normal BUN is 28 and creatinine is 1.36 Patient was reevaluated today on 05/20/2023, remains in the ICU intubated and mechanically ventilated. She is on assist-control rate of 14 tidal volume 350 F iO2 28% PEEP of 5 remains off sedation, patient is generally weak, opens her eyes but does not follow any instructions. Still requiring norepinephrine at 0.09 mcg/kg/min her IV fluids at KVO ABG showed a pO2 of 97 pCO2 42 pH of 7.42. Remains on Invanz daptomycin and Eraxis. WBC count is 11.8 hemoglobin is 10.2.Basic metabolic profile showed low sodium 131 BUN is 45 creatinine 1.64 her last procalcitonin level from yesterday was 0.71 chest x-ray continues to show minimal pulmonary vascular congestion and atelectasis. No clear-cut evidence of pneumonia He was reevaluated today on 05/21/2023, remains in the ICU intubated and mechanically ventilated. Patient is still receiving hemodialysis, still requiring norepinephrine at 0.07 mcg/kg/min still on vital HP at 53 mL/h she is going to be hemodialyzed today. She is on assist-control rate of 14 tidal volume 350 FiO2 28% PEEP of 5 ABG showed a pO2 of 109 pCO2 4 0 pH of 7.43 patient still requiring Eraxis daptomycin and Invanz. Patient makes some nonpurposeful movements, opens her eyes, does not follow any instructions, family is still undecided about comfort care measures, according to the nurse, they may proceed with comfort care sometime tomorrow. BBC count is 11.2 hemoglobin is 10 basic metabolic profile is normal renal profile showed a BUN of 62 creatinine 1.78, remind you patient is being dialyzed today Objective - Vital Signs Vital signs: Vital Signs Temp 100.3 F H 05/21/23 08:00 Pulse 97 05/21/23 11:00 Resp 7 L 05/21/23 11:00 BP 148/51 05/20/23 16:03 Pulse Ox 100 05/21/23 11:00 FiO2 28 05/21/23 11:27 Intake & Output 05/20/23 05/21/23 05/21/23 18:59 06:59 18:59 Intake Total 769.374 5903.810 510.221 Output Total 3610 26 35 Balance -2766.316 980.810 475.221 Weight 90.9 kg 90 kg Intake: IV 206 156 115 .9 kvo 120 120 50 Arterial Pressure Bag NS 36 36 15 0.9% Ertapenem 0.5 gm In 50 50 Sodium Chloride 0.9% 50 ml @ 100 mls/hr IVPB DAILY [facility] Rx#:[id number] Intake, IV Titration 86.684 214.810 47.221 Amount Norepinephrine 8 mg In 86.684 214.810 Sodium Chloride 0.9% 250 ml @ 0.03 MCG/KG/MIN 5. 759 mls/hr IV .Q24H [facility] Rx#:[id number] Norepinephrine 8 mg In 47.221 Sodium Chloride 0.9% 250 ml @ 0.03 MCG/KG/MIN 5. 759 mls/hr IV .Q24H [facility] Rx#:[id number] Tube Feeding 151 636 318 Hemodialysis 400 Other 30 Output: Urine 110 26 35 Stool 100 Hemodialysis 3400 Other: Voiding Method Indwelling Catheter ABP, PAP, CO, CI - Last Documented Arterial Blood Pressure 104/49 - Exam GENERAL EXAM:, Revealed 82-year-old female, opens eyes but does not follow any instructions today. No purposeful movement HEAD: Normocephalic. EYES: Normal reaction of pupils, equal size. NOSE: Clear with pink turbinates. THROAT: No erythema or exudates. Moist mucous membranes noted, endotracheal tube and orogastric tube are intact NECK: No masses, no JVD. The patient has a left IJ triple-lumen catheter in the right IJ dialysis catheter. CHEST: No chest wall deformity. LUNGS: Crackles at the bases, no rhonchi no wheezes t CVS: S1 and S2 normal with no audible murmur, regular rhythm. ABDOMEN: Soft nontender no megaly no rebound no guarding. SKIN: Stage II coccyx ulcer CENTRAL NERVOUS SYSTEM: Patient opens eyes, no purposeful movement and does not follow EXTREMITIES: There is 2+ peripheral edema. No clubbing, no cyanosis. Peripheral pulses are intact. - Labs CBC & Chem 7: 05/21/23 06:14 05/21/23 06:14 Labs: Abnormal Lab Results - Last 24 Hours (Table) 05/20/23 05/21/23 05/21/23 Range/Units 18:25 00:07 05:59 WBC (3.8-10.6) k/uL RBC (3.80-5.40) m/uL Hgb (11.4-16.0) gm/dL Hct (34.0-46.0) % MCV (80.0-100.0) fL RDW (11.5-15.5) % Plt Count (150-450) k/uL Neutrophils # (Manual) (1.3-7.7) k/uL Monocytes # (Manual) (0-1.0) k/uL Basophils # (Manual) (0-0.2) k/uL Macrocytosis ABG pO2 109 H (83-108) mmHg ABG HCO3 26 H (21-25) mmol/L ABG Total CO2 28 H (19-24) mmol/L ABG O2 Saturation 98.5 H (94-97) % Sodium (137-145) mmol/L BUN (7-17) mg/dL Creatinine (0.52-1.04) mg/dL Glucose (74-99) mg/dL POC Glucose (mg/dL) 168 H 162 H (70-110) mg/dL Calcium (8.4-10.2) mg/dL 05/21/23 05/21/23 05/21/23 Range/Units 06:02 06:14 06:14 WBC 11.2 H (3.8-10.6) k/uL RBC 2.93 L (3.80-5.40) m/uL Hgb 10.0 L (11.4-16.0) gm/dL Hct 30.6 L (34.0-46.0) % MCV 104.5 H (80.0-100.0) fL RDW 19.3 H (11.5-15.5) % Plt Count 77 L (150-450) k/uL Neutrophils # (Manual) 8.18 H (1.3-7.7) k/uL Monocytes # (Manual) 1.90 H (0-1.0) k/uL Basophils # (Manual) 0.22 H (0-0.2) k/uL Macrocytosis Marked A ABG pO2 (83-108) mmHg ABG HCO3 (21-25) mmol/L ABG Total CO2 (19-24) mmol/L ABG O2 Saturation (94-97) % Sodium 131 L (137-145) mmol/L BUN 62 H (7-17) mg/dL Creatinine 1.78 H (0.52-1.04) mg/dL Glucose 161 H (74-99) mg/dL POC Glucose (mg/dL) 160 H (70-110) mg/dL Calcium 7.6 L (8.4-10.2) mg/dL 05/21/23 Range/Units 11:43 WBC (3.8-10.6) k/uL RBC (3.80-5.40) m/uL Hgb (11.4-16.0) gm/dL Hct (34.0-46.0) % MCV (80.0-100.0) fL RDW (11.5-15.5) % Plt Count (150-450) k/uL Neutrophils # (Manual) (1.3-7.7) k/uL Monocytes # (Manual) (0-1.0) k/uL Basophils # (Manual) (0-0.2) k/uL Macrocytosis ABG pO2 (83-108) mmHg ABG HCO3 (21-25) mmol/L ABG Total CO2 (19-24) mmol/L ABG O2 Saturation (94-97) % Sodium (137-145) mmol/L BUN (7-17) mg/dL Creatinine (0.52-1.04) mg/dL Glucose (74-99) mg/dL POC Glucose (mg/dL) 131 H (70-110) mg/dL Calcium (8.4-10.2) mg/dL Microbiology - Last 24 Hours (Table) 05/20/23 11:05 Gram Stain - Preliminary Sputum 05/19/23 12:37 Blood Culture - Preliminary Blood Assessment and Plan Assessment: Impression: Acute on chronic hypoxic and hypercapnic respiratory failure, secondary to pulmonary edema and fluid overload with renal failure requiring hemodialysis and ultrafiltration. Acute metabolic encephalopathy Sepsis and septic shock with bacteremia secondary to mandibular abscess. And recent tooth extraction Bilateral pleural effusion right more than left, improving on today's chest x- ray Acute kidney injury secondary to above, requiring hemodialysis. Acute hyperkalemia, improved compression fractures of T7 and T8 and acute left posterior eighth rib fracture Neuropathy Stage II decubitus ulcer History of liver cirrhosis Pancytopenia Non-ST segment elevation myocardial infarction New onset atrial fibrillation with controlled ventricular response, under control. 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 Recommendation: Continue ventilatory support, trials of pressure support and CPAP have failed Clearly the family does not want tracheostomy and PEG tube placement and will likely proceed to comfort care measures in the next 24 hours Continue hemodynamic support patient is still requiring norepinephrine, being titrated accordingly. Continue midodrine Continue nutritional support/enteral feeding Continue antibiotics as per ID on the case Continue hemodialysis/ultrafiltration Continue to monitor fluid balance on a daily basis Continue GI and DVT prophylaxis Will continue to follow critical care time is over 30 minutes Time with Patient: Greater than 30
[2023-05-21] MEDS: METOPROLOL SUCCINATE (ER) 25 MG TAB.ER.24H PO STA (13:08)
--- NOTE | 2023-05-21 13:35 | P.PN ---
Subjective Progress Note Date: 05/21/23 Principal diagnosis: Reason for follow-up is leukocytosis and UTI Patient is a 82-year-old female with a past medical history significant for hypertension hyperlipidemia thrombocytopenia cirrhosis of the liver [place] osteoarthritis patient was brought into the ER for evaluation of chest pain patient subsequently did have significant worsening of her mentation did have a positive UA concerning for possible component of UTI, with subsequent workup that shows evidence of dental abscess especially to tooth #29, patient did have extraction of tooth #29 along with drainage of the abscess completed on 05/09/2023.Patient did have dialysis catheter placement evening of 05/11/2023 subsequently patient did have a worsening respiratory status ended up getting intubated on 05/11/2023, the patient did get a dialysis catheter on 05/11/2023 and has been started on dialysis On today's evaluation that is 05/21/2023, patient did have low-grade fever 100.3 F today, patient remains to be intubated on the vent FiO2 stable at 28 % no significant purulent secretion through the ET patient is currently requiring low-dose pressor support per the nursing staff no diarrhea or any other changes reported by the nursing staff. Patient white count is down to 11.2, creatinine is 1.78 sputum is growing gram- negative Objective - Vital Signs Vital signs: Vital Signs Temp 100.3 F H 05/21/23 08:00 Pulse 117 H 05/21/23 13:00 Resp 16 05/21/23 13:00 BP 148/51 05/20/23 16:03 Pulse Ox 100 05/21/23 13:00 FiO2 28 05/21/23 12:30 Intake & Output 05/20/23 05/21/23 05/21/23 18:59 06:59 18:59 Intake Total 767.307 8409.810 806.152 Output Total 3610 26 45 Balance -2766.316 980.810 761.152 Weight 90.9 kg 90 kg Intake: IV 206 156 141 .9 kvo 120 120 70 Arterial Pressure Bag NS 36 36 21 0.9% Ertapenem 0.5 gm In 50 50 Sodium Chloride 0.9% 50 ml @ 100 mls/hr IVPB DAILY [facility] Rx#:[id number] Intake, IV Titration 86.684 214.810 98.152 Amount Norepinephrine 8 mg In 86.684 214.810 Sodium Chloride 0.9% 250 ml @ 0.03 MCG/KG/MIN 5. 759 mls/hr IV .Q24H [facility] Rx#:[id number] Norepinephrine 8 mg In 98.152 Sodium Chloride 0.9% 250 ml @ 0.03 MCG/KG/MIN 5. 759 mls/hr IV .Q24H [facility] Rx#:[id number] Tube Feeding 151 636 477 Hemodialysis 400 Other 90 Output: Urine 110 26 45 Stool 100 Hemodialysis 3400 Other: Voiding Method Indwelling Catheter ABP, PAP, CO, CI - Last Documented Arterial Blood Pressure 88/43 - Exam GENERAL DESCRIPTION: An elderly Female intubated on the vent RESPIRATORY SYSTEM: Unlabored breathing , decreased breath sounds at bases HEART: S1 S2 regular rate and rhythm , ABDOMEN: Soft , no tenderness EXTREMITIES: No edema feet - Labs CBC & Chem 7: 05/21/23 06:14 05/21/23 06:14 Labs: Abnormal Lab Results - Last 24 Hours (Table) 05/20/23 05/21/23 05/21/23 Range/Units 18:25 00:07 05:59 WBC (3.8-10.6) k/uL RBC (3.80-5.40) m/uL Hgb (11.4-16.0) gm/dL Hct (34.0-46.0) % MCV (80.0-100.0) fL RDW (11.5-15.5) % Plt Count (150-450) k/uL Neutrophils # (Manual) (1.3-7.7) k/uL Monocytes # (Manual) (0-1.0) k/uL Basophils # (Manual) (0-0.2) k/uL Macrocytosis ABG pO2 109 H (83-108) mmHg ABG HCO3 26 H (21-25) mmol/L ABG Total CO2 28 H (19-24) mmol/L ABG O2 Saturation 98.5 H (94-97) % Sodium (137-145) mmol/L BUN (7-17) mg/dL Creatinine (0.52-1.04) mg/dL Glucose (74-99) mg/dL POC Glucose (mg/dL) 168 H 162 H (70-110) mg/dL Calcium (8.4-10.2) mg/dL 05/21/23 05/21/23 05/21/23 Range/Units 06:02 06:14 06:14 WBC 11.2 H (3.8-10.6) k/uL RBC 2.93 L (3.80-5.40) m/uL Hgb 10.0 L (11.4-16.0) gm/dL Hct 30.6 L (34.0-46.0) % MCV 104.5 H (80.0-100.0) fL RDW 19.3 H (11.5-15.5) % Plt Count 77 L (150-450) k/uL Neutrophils # (Manual) 8.18 H (1.3-7.7) k/uL Monocytes # (Manual) 1.90 H (0-1.0) k/uL Basophils # (Manual) 0.22 H (0-0.2) k/uL Macrocytosis Marked A ABG pO2 (83-108) mmHg ABG HCO3 (21-25) mmol/L ABG Total CO2 (19-24) mmol/L ABG O2 Saturation (94-97) % Sodium 131 L (137-145) mmol/L BUN 62 H (7-17) mg/dL Creatinine 1.78 H (0.52-1.04) mg/dL Glucose 161 H (74-99) mg/dL POC Glucose (mg/dL) 160 H (70-110) mg/dL Calcium 7.6 L (8.4-10.2) mg/dL 05/21/23 Range/Units 11:43 WBC (3.8-10.6) k/uL RBC (3.80-5.40) m/uL Hgb (11.4-16.0) gm/dL Hct (34.0-46.0) % MCV (80.0-100.0) fL RDW (11.5-15.5) % Plt Count (150-450) k/uL Neutrophils # (Manual) (1.3-7.7) k/uL Monocytes # (Manual) (0-1.0) k/uL Basophils # (Manual) (0-0.2) k/uL Macrocytosis ABG pO2 (83-108) mmHg ABG HCO3 (21-25) mmol/L ABG Total CO2 (19-24) mmol/L ABG O2 Saturation (94-97) % Sodium (137-145) mmol/L BUN (7-17) mg/dL Creatinine (0.52-1.04) mg/dL Glucose (74-99) mg/dL POC Glucose (mg/dL) 131 H (70-110) mg/dL Calcium (8.4-10.2) mg/dL Microbiology - Last 24 Hours (Table) 05/20/23 11:05 Gram Stain - Preliminary Sputum Sputum Culture - Preliminary Gram Neg Bacilli 05/19/23 12:37 Blood Culture - Preliminary Blood Assessment and Plan (1) Leukocytosis Current Visit: Yes Status: Acute Code(s): D72.829 - ELEVATED WHITE BLOOD CELL COUNT, UNSPECIFIED SNOMED Code(s): 185716378 (2) Allergy to multiple antibiotics Current Visit: Yes Status: Acute Code(s): Z88.1 - ALLERGY STATUS TO OTHER ANTIBIOTIC AGENTS SNOMED Code(s): 776150892 (3) Urinary tract infection Current Visit: No Status: Acute Code(s): N39.0 - URINARY TRACT INFECTION, SITE NOT SPECIFIED SNOMED Code(s): 18003506 Plan: 1patient with sepsis, source likely infected tooth and abscess patient has been evaluated by oral surgery and plan is status post extraction of tooth #29 and drainage of the abscess cultures are currently growing Staphylococcus hemolyticus and Sabrina 2-patient is afebrile, slight worsening of the white count 14.8 however repeat culture remains to be negative for resistant pathogen 3- patient white count is trending down and did have resolution of her fever, sputum is growing gram-negative with ID sensitivities pending 4patient to continue with Invanz daptomycin and Eraxis while waiting for the sputum culture to finalize and monitor clinical course closely Dictation was produced using [employer] dictation software. please excuse any grammatical, word or spelling errors. Time with Patient: Less than 30
--- NOTE | 2023-05-21 14:16 | P.PN ---
Subjective Progress Note Date: 05/21/23 Principal diagnosis: Patient seen and evaluated at bedside. No acute issues overnight, no new complaints. Objective - Vital Signs Vital signs: Vital Signs Temp 100.3 F H 05/21/23 08:00 Pulse 117 H 05/21/23 13:00 Resp 16 05/21/23 13:00 BP 148/51 05/20/23 16:03 Pulse Ox 100 05/21/23 13:00 FiO2 28 05/21/23 12:30 Intake & Output 05/20/23 05/21/23 05/21/23 18:59 06:59 18:59 Intake Total 882.216 2783.810 825.187 Output Total 3610 26 45 Balance -2766.316 980.810 780.187 Weight 90.9 kg 90 kg Intake: IV 206 156 141 .9 kvo 120 120 70 Arterial Pressure Bag NS 36 36 21 0.9% Ertapenem 0.5 gm In 50 50 Sodium Chloride 0.9% 50 ml @ 100 mls/hr IVPB DAILY [facility] Rx#:[id number] Intake, IV Titration 86.684 214.810 117.187 Amount Norepinephrine 8 mg In 86.684 214.810 Sodium Chloride 0.9% 250 ml @ 0.03 MCG/KG/MIN 5. 759 mls/hr IV .Q24H [facility] Rx#:[id number] Norepinephrine 8 mg In 117.187 Sodium Chloride 0.9% 250 ml @ 0.03 MCG/KG/MIN 5. 759 mls/hr IV .Q24H [facility] Rx#:[id number] Tube Feeding 151 636 477 Hemodialysis 400 Other 90 Output: Urine 110 26 45 Stool 100 Hemodialysis 3400 Other: Voiding Method Indwelling Catheter ABP, PAP, CO, CI - Last Documented Arterial Blood Pressure 88/43 - Constitutional General appearance: Present: no acute distress, obese - Cardiovascular Heart sounds: normal: S1, S2 - Gastrointestinal General gastrointestinal: Present: normal bowel sounds, soft - Labs CBC & Chem 7: 05/21/23 06:14 05/21/23 06:14 Labs: Abnormal Lab Results - Last 24 Hours (Table) 05/20/23 05/21/23 05/21/23 Range/Units 18:25 00:07 05:59 WBC (3.8-10.6) k/uL RBC (3.80-5.40) m/uL Hgb (11.4-16.0) gm/dL Hct (34.0-46.0) % MCV (80.0-100.0) fL RDW (11.5-15.5) % Plt Count (150-450) k/uL Neutrophils # (Manual) (1.3-7.7) k/uL Monocytes # (Manual) (0-1.0) k/uL Basophils # (Manual) (0-0.2) k/uL Macrocytosis ABG pO2 109 H (83-108) mmHg ABG HCO3 26 H (21-25) mmol/L ABG Total CO2 28 H (19-24) mmol/L ABG O2 Saturation 98.5 H (94-97) % Sodium (137-145) mmol/L BUN (7-17) mg/dL Creatinine (0.52-1.04) mg/dL Glucose (74-99) mg/dL POC Glucose (mg/dL) 168 H 162 H (70-110) mg/dL Calcium (8.4-10.2) mg/dL 05/21/23 05/21/23 05/21/23 Range/Units 06:02 06:14 06:14 WBC 11.2 H (3.8-10.6) k/uL RBC 2.93 L (3.80-5.40) m/uL Hgb 10.0 L (11.4-16.0) gm/dL Hct 30.6 L (34.0-46.0) % MCV 104.5 H (80.0-100.0) fL RDW 19.3 H (11.5-15.5) % Plt Count 77 L (150-450) k/uL Neutrophils # (Manual) 8.18 H (1.3-7.7) k/uL Monocytes # (Manual) 1.90 H (0-1.0) k/uL Basophils # (Manual) 0.22 H (0-0.2) k/uL Macrocytosis Marked A ABG pO2 (83-108) mmHg ABG HCO3 (21-25) mmol/L ABG Total CO2 (19-24) mmol/L ABG O2 Saturation (94-97) % Sodium 131 L (137-145) mmol/L BUN 62 H (7-17) mg/dL Creatinine 1.78 H (0.52-1.04) mg/dL Glucose 161 H (74-99) mg/dL POC Glucose (mg/dL) 160 H (70-110) mg/dL Calcium 7.6 L (8.4-10.2) mg/dL 05/21/23 Range/Units 11:43 WBC (3.8-10.6) k/uL RBC (3.80-5.40) m/uL Hgb (11.4-16.0) gm/dL Hct (34.0-46.0) % MCV (80.0-100.0) fL RDW (11.5-15.5) % Plt Count (150-450) k/uL Neutrophils # (Manual) (1.3-7.7) k/uL Monocytes # (Manual) (0-1.0) k/uL Basophils # (Manual) (0-0.2) k/uL Macrocytosis ABG pO2 (83-108) mmHg ABG HCO3 (21-25) mmol/L ABG Total CO2 (19-24) mmol/L ABG O2 Saturation (94-97) % Sodium (137-145) mmol/L BUN (7-17) mg/dL Creatinine (0.52-1.04) mg/dL Glucose (74-99) mg/dL POC Glucose (mg/dL) 131 H (70-110) mg/dL Calcium (8.4-10.2) mg/dL Microbiology - Last 24 Hours (Table) 05/20/23 11:05 Gram Stain - Preliminary Sputum Sputum Culture - Preliminary Gram Neg Bacilli 05/19/23 12:37 Blood Culture - Preliminary Blood Assessment and Plan Assessment: 82 yo female w/failure to thrive -surgery is available for tracheostomy/peg tube if the patient reconsiders Time with Patient: Greater than 30
[2023-05-21 18:13] LABS: Glucose,Whole Blood 170 mg/dL (70-110)
[2023-05-22 04:35] VITALS: BP 91/48
--- NOTE | 2023-05-22 08:18 | XR ---
EXAMINATION TYPE: XR chest 1V portable DATE OF EXAM: 05/22/2023 Comparison: 05/20/2023 Clinical History: 82-year-old female confirm tube placement Findings: Tip 1.6 cm from the lizzie. NG tube is present. It may be too far in. Clinically correlate. Right and left IJ CVC tips located upper right atrium and cavoatrial junction, respectively. Heart mildly enla rged. Focal bibasilar opacities and interstitial prominence persists in Impression: 1. Suspect ongoing mild CHF with pulmonary vascular congestion. Ongoing small bilateral pleural effus ions with adjacent atelectasis and/or consolidation. There may be slight improvement on the left. 2. NG tube present. It may be too far in. Clinically correlate. 3. ET tube tip 1.6 cm from the lizzie. Consider pulling back a centimeter.
[2023-05-22] MEDS: SCOPOLAMINE 1 MG/72 HR PATCH TRANSDERM STA (08:53)
[2023-05-22 09:09] VITALS: TEMP 99.8
--- NOTE | 2023-05-22 09:54 | P.PN ---
Subjective Patient is seen in follow-up for acute kidney injury. Intubated. On vasopressors. Oliguric. Started on dialysis May 11, 2023. Receiving tube feeds. Vital signs are stable. On Levophed. General: No acute distress. HEENT: Intubated. LUNGS: Scattered rhonchi. HEART: Rate and Rhythm are regular. ABDOMEN: Nontender. EXTREMITITES: 2+ edema. Objective - Vital Signs Vital signs: Vital Signs Temp 99.8 F H 05/22/23 08:00 Pulse 74 05/22/23 09:15 Resp 11 L 05/22/23 09:15 BP 91/48 05/22/23 04:00 Pulse Ox 100 05/22/23 09:15 FiO2 28 05/22/23 09:03 Intake & Output 05/21/23 05/22/23 05/22/23 17:59 06:59 18:59 Intake Total 145 Output Total 20 Balance 125 Weight Intake: IV 39 .9 kvo 30 Arterial Pressure Bag NS 9 0.9% Ertapenem 0.5 gm In Sodium Chloride 0.9% 50 ml @ 100 mls/hr IVPB DAILY [facility] Rx#:[id number] Intake, IV Titration Amount Norepinephrine 8 mg In Sodium Chloride 0.9% 250 ml @ 0.03 MCG/KG/MIN 5. 759 mls/hr IV .Q24H [facility] Rx#:[id number] Norepinephrine 8 mg In Sodium Chloride 0.9% 250 ml @ 0.03 MCG/KG/MIN 5. 759 mls/hr IV .Q24H [facility] Rx#:[id number] Tube Feeding 106 Hemodialysis Other Output: Urine 20 Hemodialysis Other: Voiding Method Indwelling Catheter ABP, PAP, CO, CI - Last Documented Arterial Blood Pressure 114/43 - Labs CBC & Chem 7: 05/21/23 06:14 05/21/23 06:14 Labs: Abnormal Lab Results - Last 24 Hours (Table) 05/21/23 05/21/23 05/21/23 Range/Units 06:14 06:14 11:43 Neutrophils # (Manual) 8.18 H (1.3-7.7) k/uL Monocytes # (Manual) 1.90 H (0-1.0) k/uL Basophils # (Manual) 0.22 H (0-0.2) k/uL Sodium 131 L (137-145) mmol/L BUN 62 H (7-17) mg/dL Creatinine 1.78 H (0.52-1.04) mg/dL Glucose 161 H (74-99) mg/dL POC Glucose (mg/dL) 131 H (70-110) mg/dL Calcium 7.6 L (8.4-10.2) mg/dL 05/21/23 Range/Units 18:11 Neutrophils # (Manual) (1.3-7.7) k/uL Monocytes # (Manual) (0-1.0) k/uL Basophils # (Manual) (0-0.2) k/uL Sodium (137-145) mmol/L BUN (7-17) mg/dL Creatinine (0.52-1.04) mg/dL Glucose (74-99) mg/dL POC Glucose (mg/dL) 170 H (70-110) mg/dL Calcium (8.4-10.2) mg/dL Microbiology - Last 24 Hours (Table) 05/19/23 12:37 Blood Culture - Preliminary Blood 05/20/23 11:05 Gram Stain - Preliminary Sputum Sputum Culture - Preliminary Gram Neg Bacilli Assessment and Plan Plan: Assessment: 1. Acute kidney injury secondary to ATN secondary to septic shock. Creatinine 1.19 on admission and peaked at 3.07 this admission. Left kidney is small. No hydronephrosis noted. Started on hemodialysis May 11, 2023 due to volume overload. Oliguric. 2. Septic shock on vasopressors. Concern for UTI versus dental abscess. 3. Hyperkalemia secondary to acute kidney injury and LR. Improved. 4. Volume overload. Improving with ultrafiltration. 5. Hypervolemic hyponatremia. 6. Non-ST elevated myocardial infarction. 7. Acute hypoxic respiratory failure. Plan: Plan for comfort measures today. No further renal replacement therapy.
--- NOTE | 2023-05-22 11:16 | P.PN ---
Subjective Progress Note Date: 05/22/23 Hospital Course: Patient is an 82-year-old female with known cirrhosis, coronary artery disease status post stenting, chronic systolic congestive heart failure with ejection fraction 45%, hypertension, dyslipidemia, chronic pancytopenia with ITP who initially presented to the emergency department with chest pain and shortness of breath. In the ER she underwent extensive evaluation. On arrival she was tachycardic and tachypneic but saturating well on room air. EKG demonstrated sinus tachycardia with known left bundle branch block. Chest x-ray showed pulmonary vascular congestion. She subsequently underwent CT of the aorta which demonstrated striated left thyroid mass, bilateral pleural effusions, T7 and 8 compression fractures, left posterior eighth rib fracture, fracture of the left scapula, moderately enlarged heart, no signs of aortic rupture. Labs were remarkable for WBC count 1.6, hemoglobin 11.3, platelet count 41, INR 1.3, sodium 131, BUN 33, creatinine 1.19, total bili 4.2, AST 44, troponin 0.064 and proBNP 2360. Her troponin continued to uptrend. Cardiology was consulted and felt this was a type II NSTEMI, no further testing warrented. Echocardiogram showed mild LV systolic function decrease EF 45%, severely enlarged left atrium. Orthopedic surgery was consulted. Patient did get slightly more encephalopathic, and had low blood sugars, previous urinalysis was positive, urine culture was positive for ESBL. Repeat urinalysis shows a dirty sample. ID was consulted and patient placed on IV antibiotics, ertapenem. Patient also developed oliguric SCOOTER. A CT face showed neck mass of 3 x 4 cm and right maxillary inflammatory changes. ENT and maxillofacial surgery were consulted. ENT recommended IR consult and after review, radiology deferred this procedure d ue to stable imaging/finding of left neck mass/thyroid mass from prior imaging. Maxillofacial surgery took patient for dental extraction with abscess drainage of the right mandible. Patient required transfer to the ICU on 05/07 for septic shock requiring vasopressor. On 05/12/2023 patient became more encephalopathic with worsening hypercapnic respiratory failure, increasing pressors requirements and then he became oliguric. She was subsequently intubated, started on vasopressin, also had dialysis catheter placed and started on dialysis.By 05/17 patient has been off of sedation for over 3 days, with minimal improvement in mental status. Plan is for trach and peg and surgery was consulted. Subjective: Pts family has decided on comfort care and will initiate today as per my understanding. Vitals Signs Reviewed. General: intubated, sedated HEENT: normocephalic, atraumatic, no tracheal deviation Respiratory: symmetric chest rise, no cyanosis, ventilator dependent CVS: perfusing all extremities, no distal gangrene, bilateral pitting edema GI: soft, ND : no SPT, no CVAT, bedoya is present Neuro: sedated Assessment/plan: Acute encephalopathy, multifactorial, hepatic and metabolic Septic Shock with with possible sources: - urinary tract infection, prior cultures growing ESBL -Dental abscess status post surgical I and D with tooth extraction Acute hypoxic and hypercapnic respiratory failure, now ventilator dependent Pleural effusions bilateral Liver cirrhosis Macrocytic anemia, thrombocytopenia in the setting of liver disease -Discussed management with pulmonology, continue to wean pressors, continue respiratory support, continue hemodialysis -Case discussed with infectious disease. Will continue with current treatment with daptomycin, Eraxis, and ertapenem. Will consider de-escalating antibiotics once vasopressor requirements have stabilized. -ertapenem 0.5 g IV daily, on daptomycin 400 mg IV every 48 hours, Eraxis 100 mg IV daily -Patient did have to go up on her norepinephrine during dialysis. Continue with midodrine 10 mg 3 times daily. Continue to hold metoprolol 12.5 mg daily -Patient was on primidone for tremors, discontinued -Having frequent bowel movements and lactulose was decreased to 30 daily -General surgery will consider trach and PEG if family in agreement. Plan will be for 05/20/2023. Acute kidney injury now requiring hemodialysis Hyponatremia, hypervolemic - iHD per nephrology - appreciate Nephrology recs Anemia, thrombocytopenia - stable - follow CBC T7-8 compression fractures 30 to 40% Acute posterior eighth rib fracture -Orthopedic surgery signed off, patient not a surgical candidate -Continue with gabapentin 100 mg daily for pain control NSTEMI, likely type II New onset Afib with controlled ventricular rate History of CAD status post stent -Cardiology signed off, recommended medical management -Continue aspirin 81 mg -On amiodarone 200 gm BID for rate control, metoprolol 12.5 daily is being held, no anticoagulation due to thrombocytopenia Thyroid mass -Outpatient follow-up DVT prophylaxis: Heparin Anticipated discharge date: Pending clinical course Anticipated discharge place: Pending clinical course This dictation was prepared using [employer] voice recognition software. Though every attempt is made to correct errors during dictation some may still exist. Objective - Vital Signs Vital signs: Vital Signs Temp 99.8 F H 05/22/23 08:00 Pulse 90 05/22/23 10:00 Resp 14 05/22/23 10:00 BP 91/48 05/22/23 04:00 Pulse Ox 100 05/22/23 10:00 FiO2 28 05/22/23 09:03 Intake & Output 05/21/23 05/22/23 05/22/23 17:59 06:59 18:59 Intake Total 158 Output Total 30 Balance 128 Weight Intake: IV 52 .9 kvo 40 Arterial Pressure Bag NS 12 0.9% Ertapenem 0.5 gm In Sodium Chloride 0.9% 50 ml @ 100 mls/hr IVPB DAILY [facility] Rx#:[id number] Intake, IV Titration Amount Norepinephrine 8 mg In Sodium Chloride 0.9% 250 ml @ 0.03 MCG/KG/MIN 5. 759 mls/hr IV .Q24H [facility] Rx#:[id number] Norepinephrine 8 mg In Sodium Chloride 0.9% 250 ml @ 0.03 MCG/KG/MIN 5. 759 mls/hr IV .Q24H [facility] Rx#:[id number] Tube Feeding 106 Hemodialysis Other Output: Urine 30 Hemodialysis Other: Voiding Method Indwelling Catheter ABP, PAP, CO, CI - Last Documented Arterial Blood Pressure 105/44 - Labs CBC & Chem 7: 05/21/23 06:14 05/21/23 06:14 Labs: Abnormal Lab Results - Last 24 Hours (Table) 05/21/23 05/21/23 Range/Units 11:43 18:11 POC Glucose (mg/dL) 131 H 170 H (70-110) mg/dL Microbiology - Last 24 Hours (Table) 05/19/23 12:37 Blood Culture - Preliminary Blood 05/20/23 11:05 Gram Stain - Preliminary Sputum Sputum Culture - Preliminary Gram Neg Bacilli
[2023-05-22 11:44] LABS: Glucose,Whole Blood 107 mg/dL (70-110)
--- NOTE | 2023-05-22 12:37 | P.PN ---
Subjective Progress Note Date: 05/22/23 Principal diagnosis: Acute on chronic hypoxic and hypercapnic respiratory failure secondary to pulmonary edema/fluid overload and bilateral pleural effusion This is an 82-year-old female patient with a history of liver cirrhosis, pancytopenia, coronary artery disease with previous stent placement, compression fracture of T7 and T8, acute left posterior eighth rib fracture, thyroid mass, new onset atrial fibrillation and non-ST segment elevation myocardial infarction. She had been admitted back on 04/29/2023 with chest pain and shortness of breath. Echocardiogram revealed impaired left ventricular systolic function with ejection fraction 45%. She was being cared for on the selective care unit. Last evening at a approximately 1145 and rapid response team was called due to hypotension with blood pressure 70 over 40s. She received 100 mL of fluid resuscitation and was transferred to the intensive care unit and initiated on norepinephrine. She is seen today in consultation. She is lethargic. Minimally responsive. She had been calling out in pain earlier. When she was repositioned she settled down. This is felt to be secondary to her compression fractures and rib fractures. He does have a stage II decubitus ulcer. She also has severe suspected neuropathy of the bilateral lower extremities. She is maintaining good O2 saturation in the mid 90s on 2 L/min per nasal cannula. 0.08 mcg/kg/min. She has normal staying at 80 MLS per hour. White count 11.9. Platelets 55,000. Sodium 130. Potassium 4.9. Bicarb 33. BUN 74. Creatinine 2.78. Glucose 137. Urine culture reveals no growth. Currently on ertapenem. X-ray reveals cardiomegaly with mild central vascular congestion and interstitial opacities suggesting edema. Small to moderate bibasilar pleural effusions with adjacent atelectasis. On today's evaluation of 05/09/2023, the patient is being seen for a follow-up. As mentioned, the patient was transferred to the intensive care unit yesterday because of hypotension. She has multiple medical problems including coronary artery disease and previous coronary intervention and stenting and the patient also has liver cirrhosis, and she did encounter a new onset atrial fibrillation. At the same time, the patient is suspected to be septic. The patient has been treated with IV fluids. The patient continues to be on pressors and the patient is currently on norepinephrine running 0.14 mcg/kg/min. IV fluids are running in the rate of 50 cc an hour of normal saline. The patient is currently on IV Invanz. The white cell count today is 11.1. Hemoglobin is at 11 and a platelet count is at 55. Note that the patient has chronic thrombocytopenia related to her chronic liver disease. She also had an acute kidney injury and the cre atinine peaked at 3 and currently is downtrending down to 2.65. Potassium level today is at 5.8 with a sodium level of 132. LFTs are abnormal with an alkaline phosphatase of 314, AST of 51 and ALT of 21. Her procalcitonin level was at 2.53 and her free T4 was 1.36 with a TSH of 5.9. UA was abnormal suspicious for an underlying urinary tract infection and cultures are still pending for now. Meanwhile, the CAT scan of the abdomen and pelvis that was obtained on 05/04/2023 showed no evidence of any acute intra-abdominal process. Nodular contour of the liver was suggestive of liver cirrhosis and the patient had signs of portal hypertension and cardiomegaly and pulm vascular congestion. The CAT scan of the face that was done on 05/04/2023 showed a soft tissue masslike area in the inferior left neck measuring 47 x 36 mm in size and inflammatory changes along the right mandible without an organizing collection. A head and neck abscess cannot be completely ruled out at this point in time. Neurologically, the patient is encephalopathic. She has episodes of crying and yelling and she r emains altered. Her the serum ammonia level was 17. The patient remains on lactulose which is unfortunately being given through the rectal source which is causing significant amount of contamination. At the same time, cardiac rhythm is currently controlled and she remains in atrial fibrillation. She remains on amiodarone 200 mg p.o. twice a day. The Toprol has been placed on hold based on her underlying hypotension. Her echocardiogram from 04/30/2023 showed a ejection fraction of 45%, mild RV dilatation, mild mitral regurgitation, no other significant abnormalities noted. On today's evaluation of 05/10/2023, the patient is being seen for a follow-up. The patient is in the intensive care unit for sepsis and hypotension. Note that the patient underwent an evaluation by the oral surgeon yesterday and the patient was found to have a dental abscess tooth #[id number] and surgical extraction of the tooth was done and cultures were sent. At the same time, we are suspecting an underlying urine tract infection as another source of sepsis the patient and the patient is currently on IV Invanz as the patient has had previous ESBL producing E. coli in her urine based on the culture that was obtained on 04/26/2023. The patient remains on pressors. She is on norepinephrine running at 0.15 mcg/kg/min. IV fluids are in the form of D5.9 at the rate of 50 cc an hour. Urine output is in order of 30 cc an hour and there is also interval improvement of creatinine which is down to 2.4 with a BUN of 78. Sodium levels at 133 with a potassium level of 5.2. The white cell count is at 10.2 with a hemoglobin of 10.4 and a platelet count of 85. Note that the patient has chronic thrombocytopenia related to her chronic liver disease. She is arousable. She is awake. She is on oxygen at 2 L with a pulse ox of 96%. On 05/11/2023, the patient is more lethargic compared to yesterday. There has been progressive worsening in her mentation and this has been noted throughout the day. In the morning, she was still arousable and later on during the day, the patient became quite obtunded. Based on that, the patient was given a stat CAT scan of the brain that showed no acute intracranial abnormalities. The patient's CAT scan of the brain showed Moderate bifrontal atrophy and old lacunar infarct in the left basal ganglia. There was also slightly heterogeneous appearance of the brainstem felt to be related to a prominent skull base artifact. Subsequently, the patient was given a blood gas that showed a pH of 7.11 with a pCO2 of 93 and pO2 117 and the patient's mental status is most like related to hypercapnic respiratory failure and CO2 narcosis. Chest x-ray that was done earlier this morning that showed cardiomegaly and pulm vascular congestion but the pleural fluid. Fluid balance has been +1 L over the past 24 hours and the patient has been persistently in a positive fluid balance and the patient has diffuse anasarca related to her liver failure and sepsis. The BUN is at 72 with a creatinine of 2.4 and sodium is at 136. WBC count is at 8.2 with a hemoglobin 9.8 and a platelet count of 76. She remains hypotensive. She remains on pressors and the patient is currently on norepinephrine running at 0.09 mcg/kg/min. Her pressor requirements are slightly improved compared to yesterday. She remains on D5 normal saline today stopped 50 cc an hour.. In terms of her cultures, the patient's oral culture is showing some anaerobic growth. She also has Sabrina albicans. Blood cultures were negative. Urine cultures also been negative. The patient remains on IV antibiotics and antibiotics has been modified to a combination of IV Eraxis, daptomycin and IV Invanz. on today's evaluation of 05/12/2023, I am seeing the patient for a follow-up. Events from yesterday were noted. The patient went into hypercapnic respiratory failure and she became altered and obtunded and based on that, and that intubating the patient and placed on mechanical ventilator for acute on chronic hypoxic and hypercapnic respiratory failure. Also, the patient was in significant fluid overload. Immediately postintubation, dialysis catheter was obtained and the patient was started on hemodialysis with ultrafiltration and a total of 2 L of fluid was removed yesterday. This morning, the patient remains intubated on the mechanical ventilator. She is currently on propofol running at 40 mcg/kg/min. She is on assist-control with rate of 26 with a tidal volume of 400 FiO2 40% with a PEEP of 5. Blood gas from this morning showed respiratory alkalosis with a pH of 7.58 and a pCO2 of 29 and pO2 of 77. Based on that, the respiratory rate was dropped down to 77. Chest x-ray from today showing cardiomegaly. There is bilateral pleural effusion worse on the right which is slightly improved compared to yesterday. ET tube is in a good location and the patient also has a triple-lumen catheter in her left IJ and a dialysis catheter in her right IJ. She is still hypotensive. Norepinephrine is running at 0.16 mcg/kg/min. The patient is also on physiologic dose of vasopressin A arterial line catheter was also inserted yesterday and her blood pressure is stable for now with a mean arterial pressure of around 80. Her cardiac rhythm is atrial fibrillation. In terms of the rest of the blood work, the patient has a white cell count of 12.2 with a hemoglobin 9.8 and a platelet count of 103. BUN is at 56 and the creatinine is up down to 1.7. Potassium is down to 4.5 and his sodium level is at 135. Her serum ammonia level is at 23. She continues to have significant amount of third spacing, peripheral edema and diffuse anasarca. In terms of her antibiotic coverage, the patient is currently on a combination of IV Invanz, daptomycin and Eraxis. Enteral feeding has not been started yet. On today's evaluation of 05/13/2023, the patient is being seen for a follow-up. The patient remains intubated on the mechanical ventilator. On today's evaluation, the patient is on propofol which is running at 40 mcg/kg/min. The patient is calm and comfortable and the patient is essentially centralized on the mechanical ventilator. On today's evaluation, the patient is on assist- control mode of mechanical ventilation and she is on a rate of 20, tidal volume of 400, FiO2 at 40% with a PEEP of 5. The chest x-ray is showing cardiomegaly and bilateral pleural effusions slightly improved and the ET tube is in a good location. The blood gas show a pH of 7.50 with a pCO2 of 35 and a pO2 of 118 and this was on FiO2 of 40%. No significant orotracheal secretions. The patient hemodynamically is still pressor dependent. She is currently on norepinephrine running at 0.2 mcg/kg/min and her norepinephrine dose is being titrated as the patient is undergoing hemodialysis and she is having variation and fluctuations in blood pressure. She is also on physiologic dose of vasopressin. No other hemodialysis was performed yesterday with a total of 2 point liters of ultrafiltration. Another session of hemodialysis being done today. The patient remains on Lasix 60 mg IV push every 12 hours. The fluid balance over the past 24 hours has been negative as the patient is making some urine output in the same time the patient is being dialyzed and ultrafiltrate it. Antibiotic coverage includes a combination of Invanz, Eraxis and daptomycin. Note that the patient had blood culture sent and the results are still pending for now. The cultures from the mouth and the right mandible were positive for staph hemolyticus and Sabrina albicans. The patient at the same ti me is in atrial fibrillation. The patient is on vital high-protein at the rate of 32 cc an hour and the patient seems to be tolerating her enteral feeding without any major difficulties. WBC count 11.7 with a hemoglobin 9.7 and a platelet count of 111. Sodium is at 132 with a potassium level of 3.7, BUN is 44 with a creatinine of 1.5 and a glucose of 154. LFTs are showing some mild elevation of the alkaline phosphatase at 218 and a total of 10 protein is at 4.5 with an albumin of 1.9. On 05/14/2023, the patient is being seen for a follow-up. Remains intubated on the mechanical ventilator. Sedation was discontinued yesterday and she has been off sedation for approximately 12 hours. She is sluggishly responsive to painful stimulation. Unable to communicate. Profoundly lethargic and sleepy. Most recent ammonia level was 2424 from yesterday. The patient remains on lactulose 30 g once a day and we are monitoring bowel movement activity on this patient. As mentioned earlier, the patient has liver cirrhosis, massive fluid overload, renal failure, respiratory failure requiring intubation mechanical ventilation and the patient is undergoing daily dialysis with ultrafiltration. Dialysis was done yesterday and approximately 2 L of fluid was removed. The goal for today is around 3 L. She continues to have diffuse anasarca, extensive edema in all 4 extremities, and the chest x-ray still showing bilateral pleural effusion which is essentially unchanged. While on the mechanical ventilator, she is on assist-control mode with rate of 14, tidal volume of 400, FiO2 40% with a PEEP of 5. Blood gas shows a pH of 7.58 with a pCO2 of 29 and pO2 of 77 and this was an FiO2 of 40%. Rest of the blood work and electrolytes show a sodium level of 135, potassium level is at 4.5, BUN is at 56 with a creatinine of 1.7. Potassium level is at 4.5. LFTs are normal with mild elevation of alkaline phosphatase at 240. Serum albumin is at 1.9 with a total protein of 4.4. She is afebrile. She remains on a combination of antibiotics. She is on IV Invanz, Eraxis and daptomycin. Hemodynamically, she is still requiring pressors and the patient is currently on norepinephrine at 0.15 mcg/kg/min. IV fluids are currently at KVO. Enteral feeding for nutritional support is being provided and the patient is currently on vital high-protein at a rate of 32 cc an hour. She is afebrile for now. No other significant events overnight. 05/15/2023, the patient is being seen for a follow-up. The patient is undergoing daily hemodialysis. Yesterday she underwent hemodialysis ultrafiltration with 2 L of fluid removed and the same was done earlier this morning prior to my arrival. This morning, the patient is still off the propofol. She is grimacing to painful stimulation. However, she is still significantly encephalopathic and obtunded. Note that she has also history of liver cirrhosis and she has a component of hepatic encephalopathy, and metabolic encephalopathy. Postintub ation, drugs were provided in the form of propofol which may be also contributing to her diminished level of consciousness. In terms of her acid- base balance, her pCO2 has improved and she remains on mechanical ventilator and the most recent vent setting including assist-control of 14, tidal volume of 350, FiO2 of 30% with a PEEP of 5. pH is 7.39 with a pCO2 of 46 and pO2 of 105. Repeat chest x-ray from today shows improvement in volume status. There is diminution of the bilateral pleural effusions. She continues to have significant fluid overload with third spacing and edema in all 4 extremities. Hemodynamically, the patient is still on norepinephrine which has been weaned down to 0.09 mcg/kg/min. Her white cell count is at 9.9. She is afebrile. Hemoglobin is at 9.9 and a white cell count is at 14.4. Platelet count is at 91. Rest of blood work shows a BUN of 20, creatinine of 0.8, sodium levels at 137 and a potassium level of 3.1. The patient remains essentially on the same antibiotic coverage and she is on a combination of daptomycin, IV Invanz and Eraxis. In terms of enteral feeding, she remains on vital HP at a rate of 32 cc an hour which is at goal. In terms of bowel movement activity, the patient remains on lactulose for hepatic encephalopathy. The most recent ammonia level is currently at 24 Patient was reevaluated today on 05/16/2023, martha in the ICU, intubated and mechanically ventilated, on hemodialysis. Patient is on assist-control rate of 14 tidal volume 350 FiO2 30% and PEEP of 5. Patient is not sedated has been off propofol since 05/12, she is requiring a small dose of norepinephrine at 0.06 mcg/kg/min, ABG showed a pO2 of 373 pCO2 45 pH of 7.40 patient is now on 50% FiO2. Patient remains on daptomycin, Eraxis, and Invanz, chest x-ray showed endotracheal tube to tube to be far down in the carinal area, and this needs to be pulled up about 2 cm patient is developing drop in her platelets, remains on subcu heparin, and will continue to monitor the platelets. Chest x-ray continues to show small bilateral pleural effusions, patient will not require thoracentesis at this point since she is receiving hemodialysis/ultrafiltration. WBC count is 14 hemoglobin 9.2. Basic metabolic profile is normal except for potassium of 3.3 BUN of 29 creatinine 1.25. Her blood cultures have been negative however cultures from the right mandible/wound cultures grew positive for Staphylococcus hemolyticus, antibiotics as noted earlier. Including da ptomycin, Eraxis, and Invanz Patient was reevaluated today at 05/17/2023, remains in the ICU, intubated and mechanically ventilated, patient is on assist-control rate 14 tidal volume 350 FiO2 28%, and PEEP of 5 ABG showed a pO2 of 88 pCO2 45 pH of 7.41, and is requiring a tiny dose of norepinephrine at 0.03 mcg/kg/min, she is also receiving vital HP at 32 cc/h. Antibiotics hernandez remains on Eraxis daptomycin and Invanz. Patient is receiving Lasix at 60 mg IV push every 12 hours. Patient is intermittently getting hemodialysis/ultrafiltration, patient has hardly any urine output, patient had a total ultrafiltration of 16.5 L over the last 1 week chest x-ray continues to show mild pulmonary edema, and the patient continues to have bipedal edema. WBC count today is 14.8 hemoglobin is 9.2. A BG as noted above, basic metabolic profile is normal BUN is 28 creatinine 1.15 reevaluate today on 05/18/2023, remains in the ICU intubated and mechanically ventilated, on assist-control rate of 14 tidal volume 350 FiO2 28% PEEP of 5 ABG showed a pO2 of 95 pCO2 44 pH of 7.43. Patient is still requiring Levophed at 0.12 mcg/kg/min, being titrated to maintain adequate blood pressure, she is on IV fluids at KVO, vital HP at 45/45, patient continues to have significant amount of secretions, failed a trial of weaning yesterday, another trial will be given today, patient is not requiring any sedation. Today should the patient be given another trial of pressure support and CPAP, I have discontinued Lasix because it does not seem to be contributing much to urine output, patient is being dialyzed. Remains on Eraxis daptomycin and Invanz. Not much of a change is noted to the last 24 hours. Patient was initially admitted on 04/30, intubated on 05/11, and by Tuesday it will be at least 11 or 12 days of intubation, hence I am recommending surgical evaluation for possible tracheostomy if the patient continues to fail weaning. Weaning trials will be given again today with pressure support and CPAP chest x-ray continues to show small to moderate bilateral pleural effusions and atelectasis. WBC count is 18 hemoglobin is 10.4. Cancer leukocytosis seems to be worsening in spite of antibiotics basic metabolic profile is normal BUN is 24 creatinine 1.18. Patient was reevaluated today on 05/19/2023, patient remains in the ICU, intubated and mechanically ventilated. She is on assist-control rate of 14 tidal volume 350 FiO2 28% and PEEP of 5 ABG showed a pO2 of 104 pCO2 43 pH of 7.45 patient is still requiring norepinephrine at 0.09 mcg/kg/min, she is on vital HP for nutritional support at 10 cc/h the goal is 45. Patient remains on Eraxis, Invanz, and daptomycin. Her last hemodialysis was 05/17, and she may get another dialysis today. Family today is at bedside, and we discussed that options including tracheostomy patient has been a failure to wean mostly because she has been tried almost on a daily basis on pressure support and CPAP, and she is extremely unable to tolerate even pressure support with CPAP. And she is only lasting a very short limited. Of time. Today I updated the family about her condition, discussed the different options including the option of tracheostomy and PEG tube, also discussed the option of comfort care. Family is yet undecided, they would likely make a decision by the afternoon today WBC count is 13 hemoglobin is 10 basic metabolic profile is normal BUN is 28 and creatinine is 1.36 Patient was reevaluated today on 05/20/2023, remains in the ICU intubated and mechanically ventilated. She is on assist-control rate of 14 tidal volume 350 F iO2 28% PEEP of 5 remains off sedation, patient is generally weak, opens her eyes but does not follow any instructions. Still requiring norepinephrine at 0.09 mcg/kg/min her IV fluids at KVO ABG showed a pO2 of 97 pCO2 42 pH of 7.42. Remains on Invanz daptomycin and Eraxis. WBC count is 11.8 hemoglobin is 10.2.Basic metabolic profile showed low sodium 131 BUN is 45 creatinine 1.64 her last procalcitonin level from yesterday was 0.71 chest x-ray continues to show minimal pulmonary vascular congestion and atelectasis. No clear-cut evidence of pneumonia He was reevaluated today on 05/21/2023, remains in the ICU intubated and mechanically ventilated. Patient is still receiving hemodialysis, still requiring norepinephrine at 0.07 mcg/kg/min still on vital HP at 53 mL/h she is going to be hemodialyzed today. She is on assist-control rate of 14 tidal volume 350 FiO2 28% PEEP of 5 ABG showed a pO2 of 109 pCO2 4 0 pH of 7.43 patient still requiring Eraxis daptomycin and Invanz. Patient makes some nonpurposeful movements, opens her eyes, does not follow any instructions, family is still undecided about comfort care measures, according to the nurse, they may proceed with comfort care sometime tomorrow. BBC count is 11.2 hemoglobin is 10 basic metabolic profile is normal renal profile showed a BUN of 62 creatinine 1.78, remind you patient is being dialyzed today Was reevaluated today 05/22/2023, remains in the ICU, intubated and mechanically ventilated, she is on assist-control rate of 14 tidal volume 350 FiO2 28% PEEP of 5 ABG showed a pO2 of 109 pCO2 4 0 pH of 7.43 patient remains on norepinephrine at 0.07 mcg/kg/min. Not much of a change as far as her mental status, patient continues to open his eyes but she does not follow any instructions. And does not have any purposeful movement. No labs were drawn on this patient today since she is being considered for possible comfort care, however waiting for the daughter to make the final decision sometime this afternoon chest x-ray today showed mostly mild pulmonary vascular congestion/fluid overload. Have nasogastric tube was noted at her endotracheal tube was also noted Objective - Vital Signs Vital signs: Vital Signs Temp 99.8 F H 05/22/23 08:00 Pulse 90 05/22/23 10:00 Resp 14 05/22/23 10:00 BP 91/48 05/22/23 04:00 Pulse Ox 100 05/22/23 10:00 FiO2 28 05/22/23 12:10 Intake & Output 05/21/23 05/22/23 05/22/23 17:59 06:59 18:59 Intake Total 158 Output Total 30 Balance 128 Weight Intake: IV 52 .9 kvo 40 Arterial Pressure Bag NS 12 0.9% Ertapenem 0.5 gm In Sodium Chloride 0.9% 50 ml @ 100 mls/hr IVPB DAILY [facility] Rx#:[id number] Intake, IV Titration Amount Norepinephrine 8 mg In Sodium Chloride 0.9% 250 ml @ 0.03 MCG/KG/MIN 5. 759 mls/hr IV .Q24H [facility] Rx#:[id number] Norepinephrine 8 mg In Sodium Chloride 0.9% 250 ml @ 0.03 MCG/KG/MIN 5. 759 mls/hr IV .Q24H [facility] Rx#:[id number] Tube Feeding 106 Hemodialysis Other Output: Urine 30 Hemodialysis Other: Voiding Method Indwelling Catheter ABP, PAP, CO, CI - Last Documented Arterial Blood Pressure 105/44 - Exam GENERAL EXAM:, Revealed 82-year-old female, intubated and mechanically ventilated not in distress HEAD: Normocephalic. EYES: Normal reaction of pupils, equal size. NOSE: Clear with pink turbinates. THROAT: No erythema or exudates. Moist mucous membranes noted, endotracheal tube and orogastric tube are intact NECK: No masses, no JVD. The patient has a left IJ triple-lumen catheter in the right IJ dialysis catheter. CHEST: No chest wall deformity. LUNGS: Crackles at the bases, no rhonchi no wheezes CVS: S1 and S2 normal with no audible murmur, regular rhythm. ABDOMEN: Soft nontender no megaly no rebound no guarding. SKIN: Stage II coccyx ulcer CENTRAL NERVOUS SYSTEM: Patient opens eyes, no purposeful movement and does not follow EXTREMITIES: There is 2+ peripheral edema. No clubbing, no cyanosis. Peripheral pulses are intact. - Labs CBC & Chem 7: 05/21/23 06:14 05/21/23 06:14 Labs: Abnormal Lab Results - Last 24 Hours (Table) 05/21/23 05/21/23 Range/Units 11:43 18:11 POC Glucose (mg/dL) 131 H 170 H (70-110) mg/dL Microbiology - Last 24 Hours (Table) 05/20/23 11:05 Gram Stain - Final Sputum Sputum Culture - Final Escherichia coli 05/19/23 12:37 Blood Culture - Preliminary Blood Assessment and Plan Assessment: Impression: Acute on chronic hypoxic and hypercapnic respiratory failure, secondary to pulmonary edema and fluid overload with renal failure requiring hemodialysis and ultrafiltration. Acute metabolic encephalopathy Sepsis and septic shock with bacteremia secondary to mandibular abscess. And recent tooth extraction Bilateral pleural effusion right more than left, improving on today's chest x-r ay Acute kidney injury secondary to above, requiring hemodialysis. Acute hyperkalemia, improved compression fractures of T7 and T8 and acute left posterior eighth rib fracture Neuropathy Stage II decubitus ulcer History of liver cirrhosis Pancytopenia Non-ST segment elevation myocardial infarction New onset atrial fibrillation with controlled ventricular response, under control. 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 Recommendation: Continue ventilatory support, trials of pressure support and CPAP have failed, patient is being considered for comfort care measures today. Present supportive care measures for now, but would not recommend any labs to be drawn or any further diagnostic studies, family will make a decision about comfort care sometime later this afternoon Continue midodrine Continue nutritional support/enteral feeding Hold hemodialysis for now Continue GI and DVT prophylaxis Will continue to follow critical care time is over 30 minutes Time with Patient: Greater than 30
[2023-05-22] MEDS ORDERED: ATROPINE OPHTH SOLN 1% 5ML BTL SUBLINGUAL PRN (12:47)
[2023-05-22] MEDS ORDERED: HYDROmorphone 0.5 MG/0.5 ML SYRINGE IVP PRN (12:47)
[2023-05-22] MEDS ORDERED: LORazepam 2 MG/ML INJ IV PRN (12:50)
--- NOTE | 2023-05-22 13:23 | P.PN ---
Subjective Progress Note Date: 05/22/23 Principal diagnosis: Respiratory failure Patient remains on the ventilator in the ICU. Family apparently has opted for comfort measures at this time. Objective - Vital Signs Vital signs: Vital Signs Temp 99.8 F H 05/22/23 08:00 Pulse 77 05/22/23 13:15 Resp 19 05/22/23 13:15 BP 91/48 05/22/23 12:30 Pulse Ox 100 05/22/23 13:15 FiO2 28 05/22/23 12:10 Intake & Output 05/21/23 05/22/23 05/22/23 17:59 06:59 18:59 Intake Total 197 Output Total 165 Balance 32 Weight Intake: IV 91 .9 kvo 70 Arterial Pressure Bag NS 21 0.9% Ertapenem 0.5 gm In Sodium Chloride 0.9% 50 ml @ 100 mls/hr IVPB DAILY RONI Rx#:[id number] Intake, IV Titration Amount Norepinephrine 8 mg In Sodium Chloride 0.9% 250 ml @ 0.03 MCG/KG/MIN 5. 759 mls/hr IV .Q24H RONI Rx#:[id number] Norepinephrine 8 mg In Sodium Chloride 0.9% 250 ml @ 0.03 MCG/KG/MIN 5. 759 mls/hr IV .Q24H RONI Rx#:[id number] Tube Feeding 106 Hemodialysis Other Output: Urine 65 Stool 100 Hemodialysis Other: Voiding Method Indwelling Catheter ABP, PAP, CO, CI - Last Documented Arterial Blood Pressure 113/64 - Exam Abdomen: Soft, nontender, nondistended - Labs CBC & Chem 7: 05/21/23 06:14 05/21/23 06:14 Labs: Abnormal Lab Results - Last 24 Hours (Table) 05/21/23 Range/Units 18:11 POC Glucose (mg/dL) 170 H (70-110) mg/dL Microbiology - Last 24 Hours (Table) 05/20/23 11:05 Gram Stain - Final Sputum Sputum Culture - Final Escherichia coli 05/19/23 12:37 Blood Culture - Preliminary Blood Assessment and Plan (1) Shortness of breath Narrative/Plan: Patient was initially scheduled for tracheostomy and PEG tube this week. This will be canceled. Will sign off. Please call if needed. Current Visit: No Status: Acute Code(s): R06.02 - SHORTNESS OF BREATH SNOMED Code(s): 999317761
[2023-05-22 13:51] VITALS: PULSE 77; RESP 19
--- NOTE | 2023-05-22 14:24 | P.PN ---
Subjective Progress Note Date: 05/22/23 Principal diagnosis: Reason for follow-up is leukocytosis and UTI Patient is a 82-year-old female with a past medical history significant for hypertension hyperlipidemia thrombocytopenia cirrhosis of the liver [place] osteoarthritis patient was brought into the ER for evaluation of chest pain patient subsequently did have significant worsening of her mentation did have a positive UA concerning for possible component of UTI, with subsequent workup that shows evidence of dental abscess especially to tooth #29, patient did have extraction of tooth #29 along with drainage of the abscess completed on 05/09/2023.Patient did have dialysis catheter placement evening of 05/11/2023 subsequently patient did have a worsening respiratory status ended up getting intubated on 05/11/2023, the patient did get a dialysis catheter on 05/11/2023 and has been started on dialysis On today's evaluation that is 05/22/2023,the patient did have a low-grade fever of 99.8 F this morning, the patient is on the vent FiO2 is stable at 28% still requiring low-dose pressor support no other changes reported by the nursing staff. No labs were drawn today sputum grew ESBL E. coli Objective - Vital Signs Vital signs: Vital Signs Temp 99.8 F H 05/22/23 08:00 Pulse 77 05/22/23 13:15 Resp 19 05/22/23 13:15 BP 91/48 05/22/23 12:30 Pulse Ox 100 05/22/23 13:15 FiO2 28 05/22/23 12:10 Intake & Output 05/21/23 05/22/23 05/22/23 17:59 06:59 18:59 Intake Total 197 Output Total 165 Balance 32 Weight Intake: IV 91 .9 kvo 70 Arterial Pressure Bag NS 21 0.9% Ertapenem 0.5 gm In Sodium Chloride 0.9% 50 ml @ 100 mls/hr IVPB DAILY RONI Rx#:[id number] Intake, IV Titration Amount Norepinephrine 8 mg In Sodium Chloride 0.9% 250 ml @ 0.03 MCG/KG/MIN 5. 759 mls/hr IV .Q24H [facility]ONI Rx#:[id number] Norepinephrine 8 mg In Sodium Chloride 0.9% 250 ml @ 0.03 MCG/KG/MIN 5. 759 mls/hr IV .Q24H RONI Rx#:[id number] Tube Feeding 106 Hemodialysis Other Output: Urine 65 Stool 100 Hemodialysis Other: Voiding Method Indwelling Catheter ABP, PAP, CO, CI - Last Documented Arterial Blood Pressure 113/64 - Labs CBC & Chem 7: 05/21/23 06:14 05/21/23 06:14 Labs: Abnormal Lab Results - Last 24 Hours (Table) 05/21/23 Range/Units 18:11 POC Glucose (mg/dL) 170 H (70-110) mg/dL Microbiology - Last 24 Hours (Table) 05/20/23 11:05 Gram Stain - Final Sputum Sputum Culture - Final Escherichia coli 05/19/23 12:37 Blood Culture - Preliminary Blood Assessment and Plan (1) Leukocytosis Current Visit: Yes Status: Acute Code(s): D72.829 - ELEVATED WHITE BLOOD CELL COUNT, UNSPECIFIED SNOMED Code(s): 626533505 (2) Allergy to multiple antibiotics Current Visit: Yes Status: Acute Code(s): Z88.1 - ALLERGY STATUS TO OTHER ANTIBIOTIC AGENTS SNOMED Code(s): 046217986 (3) Urinary tract infection Current Visit: No Status: Acute Code(s): N39.0 - URINARY TRACT INFECTION, SITE NOT SPECIFIED SNOMED Code(s): 47964007 Plan: 1patient with sepsis, source likely infected tooth and abscess patient has been evaluated by oral surgery and plan is status post extraction of tooth #29 and drainage of the abscess cultures are currently growing Staphylococcus hemolyticus and Sabrina 2-patient is afebrile, slight worsening of the white count 14.8 however repeat culture remains to be negative for resistant pathogen 3- patient white count is trending down and did have resolution of her fever, sputum is growing ESBL E. coli 4patient is currently covered with Invanz daptomycin and Eraxis, keeping in mind patient being considered for hospice/comfort oriented care will hold on adding any further workup and antibiotics can be safely discontinued once switched to hospice/comfort Dictation was produced using [employer] dictation software. please excuse any grammatical, word or spelling errors. Time with Patient: Less than 30
[2023-05-22] MEDS: HYDROmorphone 1 MG/ML 1 ML SYRINGE IVP PRN (15:06)
[2023-05-22] MEDS: HYDROmorphone (PF) 50 MG in SODIUM CHLORIDE 0.9% 45 ML IV SCH (15:07)
--- NOTE | 2023-05-23 07:34 | P.DS ---
Providers Date of admission: 04/30/23 03:03 Expected date of discharge: 05/23/23 Attending physician: David Connell MD Consults: 04/30/23 02:57 Consult Physician Routine Consulting Provider: [facility] Consult Reason/Comments: elevated troponin, chest wall pain Do you want consulting provider notified?: Yes 04/30/23 12:58 Consult Physician Routine Consulting Provider: Randy Goodson Consult Reason/Comments: COMPRESSION FX T7 AND T8, RIB FX & SCAPULA FX Do you want consulting provider notified?: Yes 05/03/23 03:38 Consult Physician Routine Consulting Provider: Kristal Hammer Consult Reason/Comments: UTI Do you want consulting provider notified?: Yes, Notify in am 05/03/23 11:51 Consult Physician Routine Consulting Provider: Alma Trevino Consult Reason/Comments: SCOOTER Do you want consulting provider notified?: Yes 05/06/23 08:01 Consult Physician Routine Consulting Provider: Leo Coto Consult Reason/Comments: neck mass Do you want consulting provider notified?: Yes 05/08/23 00:04 Consult Physician Routine Consulting Provider: Steven Peters Consult Reason/Comments: ICU management Do you want consulting provider notified?: Already Contacted 05/08/23 09:34 Consult Physician Urgent Consulting Provider: Perry Xie Consult Reason/Comments: dental abscess right side Do you want consulting provider notified?: Yes 05/08/23 14:48 Consult Physician Routine Consulting Provider: Supriya Preciado Consult Reason/Comments: pain control: consideration of IV lidocaine vs ketamine Do you want consulting provider notified?: Yes 05/09/23 08:01 Consult Physician Routine Consulting Provider: Helder Ibrahim Consult Reason/Comments: PKTY, cardiac clearance for oral surgery today Do you want consulting provider notified?: Yes 05/11/23 16:17 Consult Physician Routine Consulting Provider: Gallo Wall Consult Reason/Comments: dialysis cathater Do you want consulting provider notified?: Yes 05/18/23 09:11 Consult Physician Routine Consulting Provider: Akin Sneed Consult Reason/Comments: Trach and PEG Do you want consulting provider notified?: Yes Primary care physician: Dane Oliva MD Hospital Course: Discharge Diagnosis: Acute encephalopathy, multifactorial, hepatic and metabolic Septic Shock with with possible sources: - urinary tract infection, prior cultures growing ESBL -Dental abscess status post surgical I and D with tooth extraction Acute hypoxic and hypercapnic respiratory failure Pleural effusions bilateral Liver cirrhosis Macrocytic anemia, thrombocytopenia in the setting of liver disease Acute kidney injury requiring hemodialysis Hyponatremia, hypervolemic T7-8 compression fractures 30 to 40% Acute posterior eighth rib fracture NSTEMI, likely type II New onset Afib with controlled ventricular rate History of CAD status post stent Thyroid mass Hospital Course: Patient is an 82-year-old female with known cirrhosis, coronary artery disease status post stenting, chronic systolic congestive heart failure with ejection fraction 45%, hypertension, dyslipidemia, chronic pancytopenia with ITP who initially presented to the emergency department with chest pain and shortness of breath. In the ER she underwent extensive evaluation. On arrival she was tachycardic and tachypneic but saturating well on room air. EKG demonstrated sinus tachycardia with known left bundle branch block. Chest x-ray showed pulmonary vascular congestion. She subsequently underwent CT of the aorta which demonstrated striated left thyroid mass, bilateral pleural effusions, T7 and 8 compression fractures, left posterior eighth rib fracture, fracture of the left scapula, moderately enlarged heart, no signs of aortic rupture. Labs were remarkable for WBC count 1.6, hemoglobin 11.3, platelet count 41, INR 1.3, sodium 131, BUN 33, creatinine 1.19, total bili 4.2, AST 44, troponin 0.064 and proBNP 2360. Her troponin continued to uptrend. Cardiology was consulted and felt this was a type II NSTEMI, no further testing warrented. Echocardiogram showed mild LV systolic function decrease EF 45%, severely enlarged left atrium. Orthopedic surgery was consulted. Patient did get slightly more encephalopathic, and had low blood sugars, previous urinalysis was positive, urine culture was positive for ESBL. Repeat urinalysis shows a dirty sample. ID was consulted and patient placed on IV antibiotics, ertapenem. Patient also developed oliguric SCOOTER. A CT face showed neck mass of 3 x 4 cm and right maxillary inflammatory changes. ENT and maxillofacial surgery were consulted. ENT recommended IR consult and after review, radiology deferred this procedure due to stable imaging/finding of left neck mass/thyroid mass from prior imaging. Maxillofacial surgery took patient for dental extraction with abscess drainage of the right mandible. Patient required transfer to the ICU on 05/07 for septic shock requiring vasopressor. On 05/12/2023 patient became more encephalopathic with worsening hypercapnic respiratory failure, increasing pressors requirements and then she became oliguric. She was subsequently intubated, started on vasopressin, also had dialysis catheter placed and started on dialysis. By 05/17 patient has been off of sedation for over 3 days, with minimal improvement in mental status. Plan is for trach and peg and surgery was consulted. Family decided for comfort care instead on 05/22/23. Patient at 1855 on 05/22/23. Plan - Discharge Summary New Discharge Prescriptions: No Action Pravastatin Sodium 80 mg PO DAILY Midodrine [ProAmatine] 5 mg PO AC-TID #90 tab Metoprolol Succinate (ER) [Toprol XL] 12.5 mg PO DAILY #30 tab Lidocaine 5% Patch [Lidoderm 5% Patch] 1 patch TOPICAL DAILY #5 patch Clotrimazole/Betameth Cream [Lotrisone] 1 applic TOPICAL BID Cyclobenzaprine [Flexeril] 10 mg PO TID PRN PRN Reason: Muscle Spasm Ampicillin 500mg Capsule 500 mg PO DAILY Primidone [Mysoline] 50 mg PO BID Triamcinolone 0.1% Ointment [Kenalog 0.1% Ointment] 1 applic TOPICAL DAILY PRN PRN Reason: irritation Furosemide [Lasix] 40 mg PO BID #0 Ketorolac [Toradol] 10 mg PO Q8HR #15 tab Lactulose [Constulose] 30 gm PO TID Discharge Medication List Pravastatin Sodium 80 mg PO DAILY 07/30/20 [History] Primidone [Mysoline] 50 mg PO BID 07/30/20 [History] Triamcinolone 0.1% Ointment [Kenalog 0.1% Ointment] 1 applic TOPICAL DAILY PRN 12/03/22 [History] Metoprolol Succinate (ER) [Toprol XL] 12.5 mg PO DAILY #30 tab 12/10/22 [Rx] Midodrine [ProAmatine] 5 mg PO AC-TID #90 tab 12/10/22 [Rx] Furosemide [Lasix] 40 mg PO BID #0 12/16/22 [Rx] Ketorolac [Toradol] 10 mg PO Q8HR #15 tab 04/26/23 [Rx] Lidocaine 5% Patch [Lidoderm 5% Patch] 1 patch TOPICAL DAILY #5 patch 04/26/23 [Rx] Ampicillin 500mg Capsule 500 mg PO DAILY 04/30/23 [History] Clotrimazole/Betameth Cream [Lotrisone] 1 applic TOPICAL BID 04/30/23 [History] Cyclobenzaprine [Flexeril] 10 mg PO TID PRN 04/30/23 [History] Lactulose [Constulose] 30 gm PO TID 04/30/23 [History] Follow up Appointment(s)/Referral(s): Dane Oliva MD [Primary Care Provider] - 1-2 days Rebecca Hampton NPC [Nurse Practitioner] - As Needed [facility], [NON-STAFF] - Discharge Disposition: - Preliminary Cause of Preliminary Cause of : sepsis
--- NOTE | 2023-05-24 11:19 | CDI ---
Documentation Clarification Form Date: 05/24/2023 11:12:07 AM From: Adelia Lemus Phone: Admit Date: 04/30/2023 03:03:00 AM Patient Name: Gemma Rosas Visit Number: [id number] Discharge Date: 05/22/2023 09:50:00 PM ATTENTION: The Clinical Documentation Specialists (CDI) and [facility] Coding Staff appreciate your assistance in clarifying documentation. Please respond to the clarification below the line at the bottom and electronically sign. The CDI & [facility] Coding staff will review the response and follow-up if needed. Please note: Queries are made part of the Legal Health Record. If you have any questions, please contact the author of this message via ITS. Dr. Jed Oliver Unspecified CKD is documented Procedure note 05/11. Additional clarification regarding the stage of CKD is requested. History/Risk Factors: 82yo F, sepsis w shock,encephalopathy- hepatic & metabolic, ATN, UTI, dental abscess, AH/HRF on vent, Liver cirrhosis, macrocytic anemia,2nd thrombocytopenia, hyponatremia, hypervolemia, T7-8compression Fxs30 to 40%, posterior 8th rib Fx, NSTEMI II, new A fib, CAD w stents, Thyroid mass Clinical Indicators: BUN 33 04/30 Cr: 1.19 GFR: 43 Treatment: ATN w HD while inpatient Please clarify the stage of the CKD, if known: [ x] CKD Stage 3a [ ] CKD Stage 3b [ ] Other, please specify [ ] Unable to determine Reference: National Kid[employer] Stage 1 eGFR = 90 and kidney damage for =3 months Stage 2 eGFR 60-89 and kidney damage for =3 months Stage 3a eGFR 45-59 and kidney damage for =3 months Stage 3b eGFR 30-44 and kidney damage for =3 months Stage 4 eGFR 15-29 r and kidney damage for =3 months Stage 5 eGFR <15 and kidney damage for =3 months (Template last revised: March 2023) MTDD
--- NOTE | 2023-05-25 15:58 | CDI ---
Documentation Clarification Form Date: 05/25/2023 12:00:00 AM From: Nomi Lynn Admit Date: 04/30/2023 03:03:00 AM Patient Name: Gemma Rosas Visit Number: [id number] Discharge Date: 05/22/2023 09:50:00 PM ATTENTION: The Clinical Documentation Specialists (CDI) and [facility] Coding Staff appreciate your assistance in clarifying documentation. Please respond to the clarification below the line at the bottom and electronically sign. The CDI & [facility] Coding staff will review the response and follow-up if needed. Please note: Queries are made part of the Legal Health Record. If you have any questions, please contact the author of this message via ITS. Dr. David Connell Sepsis is first documented in the 05/04 IM note. For each diagnosis, documentation must be clear to determine if the condition was present at the time of the patients inpatient admission or developed during the hospital stay. Additional clarification regarding the Sepsis is requested. History/Risk Factors: 82-year-old female with a past medical history significant for hypertension hyperlipidemia thrombocytopenia cirrhosis of the liver [place] osteoarthritis patient was brought into the ER 3 days ago for evaluation of chest pain. Clinical Indicators: 05/03 ID consult: did have a negative UA on admission, the patient has been afebrile during this hospital stay patient did have a white count of 1.6 on admission which was up to 13.6 on the however the white count is up to 25.2 today patient did have elevated bili creatinine as well as potassium bilirubin is elevated ALT AST is normal repeat UA has been positive patient did have a multiple antibiotic allergies , patient was started on Levaquin last night infectious was consulted for further management of antibiotic therapy. Patient currently noticed to have significant change in her mentation with the patient has been noted to be more lethargic and is unresponsive as of this morning symptoms started getting worse since yesterday 05/04 Progress note: Severe sepsis, unclear source: Questionable urinary tract infection, prior cultures growing ESBL. Urine culture showed normal genital lukas, repeat UA still pending Patient did have bandemia on initial presentation, and now has leukocytosis Per daughter, patient had a recent dental abscess, went untreated. CT abdomen pelvis and CT face ordered without contrast ID is following, patient currently on ertapenem 0.5 g IV daily Patient is fluid responsive, in light of minimal urine output, patient started on lactated Ringer's at 100 cc an hour 05/04 ID note: patient with a mental status change which is likely multifactorial due to an episode of vomiting and a positive UA defect, UA on admission that was negative and the patient last urine culture done on 04/26/2023 was ESBL E. coli could be the same pathogen. Discontinue amoxicillin and Levaquin. We will start the patient on Invanz 1 g daily while waiting for the culture to finalize. Lab Data from EMR: Date 04/29 05/01 05/02 05/03 05/04 05/05 05/06 WBC 1.6 13.6 9.5 25.2 16.8 12.7 11.4 HR 125 104 104 113 99 98 62 RR 24 18 24 19 18 16 20 Temp 98.3 97.2 97.2 98.3 98.2 - 97.6 Treatment: Discontinued Home Ampicillin, Levaquin (05/02-05/04), NS Bolus 2L (02/27), NS Bolus 1.5L (05/03), Invanz 0.5gm (05/03-05/21) Definition of Present on Admission (POA): A diagnosis present at the time the order for admission to inpatient status was written. Please clarify if the Sepsis was POA: [ ] Y = Yes, the condition was present at the time of the order for inpatient admission. [ ] N = No, the condition was not present at the time of the order for inpatient admission. [ X ] W = Clinically undetermined if the condition was present at the time of the order for inpatient admission. (Template Last Revised: May 2020) MTDD
== END 2023-05-22 21:50 | disposition expired | DRG 682 ==
LOC: EC 22:41 → 3SCARD 04-30 03:03 → 3NCARDOBS 05-05 03:01 → 3SCARD 05-05 03:09 → 2SICU 05-08 00:02
PROVIDERS: ADMIT Internal Medicine; ATTEND Internal Medicine
PROC: 0CDWXZ0 Extraction of Upper Tooth, Single, External Approach (ICD-10-PCS; 2023-05-09)
PROC: 3E033XZ Introduction of Vasopressor into Peripheral Vein, Percutaneous Approach (ICD-10-PCS; 2023-05-10)
PROC: 5A1955Z Respiratory Ventilation, Greater than 96 Consecutive Hours (ICD-10-PCS; principal; 2023-05-11)
PROC: 0BH18EZ Insertion of Endotracheal Airway into Trachea, Via Natural or Artificial Opening Endoscopic (ICD-10-PCS; 2023-05-11)
PROC: 02HV33Z Insertion of Infusion Device into Superior Vena Cava, Percutaneous Approach (ICD-10-PCS; 2023-05-11)
PROC: 02HV33Z Insertion of Infusion Device into Superior Vena Cava, Percutaneous Approach (ICD-10-PCS; 2023-05-11)
PROC: 5A1D70Z Performance of Urinary Filtration, Intermittent, Less than 6 Hours Per Day (ICD-10-PCS; 2023-05-11)
PROC: 03HY32Z Insertion of Monitoring Device into Upper Artery, Percutaneous Approach (ICD-10-PCS; 2023-05-11)
PROC: 4A133B1 Monitoring of Arterial Pressure, Peripheral, Percutaneous Approach (ICD-10-PCS; 2023-05-11)
PROC: 4A133J1 Monitoring of Arterial Pulse, Peripheral, Percutaneous Approach (ICD-10-PCS; 2023-05-11)
DX: N17.0 Acute kidney failure with tubular necrosis (principal); A41.9 Sepsis, unspecified organism; J96.21 Acute and chronic respiratory failure with hypoxia; J96.22 Acute and chronic respiratory failure with hypercapnia; R65.21 Severe sepsis with septic shock; E43 Unspecified severe protein-calorie malnutrition; K76.7 Hepatorenal syndrome; I21.A1 Myocardial infarction type 2; G93.41 Metabolic encephalopathy; D61.818 Other pancytopenia; I13.0 Hypertensive heart and chronic kidney disease with heart failure and stage 1 through stage 4 chronic kidney disease, or unspecified chronic kidney disease; M48.54XA Collapsed vertebra, not elsewhere classified, thoracic region, initial encounter for fracture; I50.22 Chronic systolic (congestive) heart failure; K76.6 Portal hypertension; E87.3 Alkalosis; E87.1 Hypo-osmolality and hyponatremia; B37.0 Candidal stomatitis; S22.32XA Fracture of one rib, left side, initial encounter for closed fracture; N39.0 Urinary tract infection, site not specified; Z16.12 Extended spectrum beta lactamase (ESBL) resistance; Z51.5 Encounter for palliative care; Z66 Do not resuscitate; K76.82 Hepatic encephalopathy; J43.9 Emphysema, unspecified; I70.0 Atherosclerosis of aorta; I77.819 Aortic ectasia, unspecified site; K72.90 Hepatic failure, unspecified without coma; N18.31 Chronic kidney disease, stage 3a; D69.59 Other secondary thrombocytopenia; D53.9 Nutritional anemia, unspecified; I34.0 Nonrheumatic mitral (valve) insufficiency; Z68.36 Body mass index [BMI] 36.0-36.9, adult; K74.60 Unspecified cirrhosis of liver; I48.91 Unspecified atrial fibrillation; L89.102 Pressure ulcer of unspecified part of back, stage 2; E78.5 Hyperlipidemia, unspecified; R62.7 Adult failure to thrive; I95.89 Other hypotension; I44.7 Left bundle-branch block, unspecified; F17.210 Nicotine dependence, cigarettes, uncomplicated; K04.7 Periapical abscess without sinus; M47.814 Spondylosis without myelopathy or radiculopathy, thoracic region; S52.042A Displaced fracture of coronoid process of left ulna, initial encounter for closed fracture; T39.395A Adverse effect of other nonsteroidal anti-inflammatory drugs [NSAID], initial encounter; E87.5 Hyperkalemia; I25.10 Atherosclerotic heart disease of native coronary artery without angina pectoris; G62.9 Polyneuropathy, unspecified; B96.20 Unspecified Escherichia coli [E. coli] as the cause of diseases classified elsewhere; E87.6 Hypokalemia; I25.5 Ischemic cardiomyopathy; K02.9 Dental caries, unspecified; M27.2 Inflammatory conditions of jaws; N28.1 Cyst of kidney, acquired; B95.7 Other staphylococcus as the cause of diseases classified elsewhere; E07.9 Disorder of thyroid, unspecified; R16.1 Splenomegaly, not elsewhere classified; R79.1 Abnormal coagulation profile; Z96.60 Presence of unspecified orthopedic joint implant; Z79.82 Long term (current) use of aspirin; Z79.899 Other long term (current) drug therapy; Z88.5 Allergy status to narcotic agent; Z88.1 Allergy status to other antibiotic agents; Z95.5 Presence of coronary angioplasty implant and graft; I25.2 Old myocardial infarction; Z82.49 Family history of ischemic heart disease and other diseases of the circulatory system; Z86.19 Personal history of other infectious and parasitic diseases; Z88.8 Allergy status to other drugs, medicaments and biological substances; Z88.0 Allergy status to penicillin; Z88.6 Allergy status to analgesic agent; Z86.73 Personal history of transient ischemic attack (TIA), and cerebral infarction without residual deficits
CPT/HCPCS: 36415; 36600; 70450; 70486; 71045; 71046; 71275; 74174; 74176; 76705; 76770; 80048; 80053; 80076; 81001; 81003; 82140; 82533; 82607; 82805; 83735; 83880; 84100; 84132; 84145; 84439; 84443; 84484; 85025; 85027; 85610; 85730; 86140; 86706; 87040; 87070; 87075; 87077; 87086; 87186; 87205; 87340; 90935; 93005; 93306; 94002; 94003; 94640; 94660; 94760; 95816; 96360; 99285